=== PATIENT | male | born 1955 | race Caucasian/White ===

== ENCOUNTER → 2016-08-31 | Outpatient (CLI) | payer OTHER ==
[~2016-08-31] MED LIST: CPC PO; GABA-112 PO; GFNSR600 PO; INSHI7030 SC; IPRASOL4 INH; KFL500 PO; LEVO200T PO; LEVO50TA6 PO; LPT10 PO; MLXESC PO; MOMLX PO; MRLP17X PO; NCDT21 TD; PRD20 PO; PRLSR20 PO; SALI0.6510; SPRIN INH; SYMIN INH
--- NOTE | 2016-09-01 06:26 | PAP/PSG TECHNICIAN REPORT ---
[facility] Assistant Professor Of Business Polysomnogram Report Study name: None Report date: 09/01/2016 Study date: 08/31/2016 Referring Physician: Catalina BLACK M.D. Name: CROW DOUGLASS Interpreting Physician: Shannan Black M.D. Date of : 1955 Assistant Professor Of Business: Ricky Oakley RPSGT. Sex: Male Age: 60 StudyType: PSG Weight: 435 lbs 23 inches Height: 60 years, Height 5' 10" Neck Circum: BMI: 62.41 Medications: LEVOXYL 200 MCG, METOPROLOL SUCCINATE 25 MG, LIPITOR 10 MG, DUONED 2.5-0.5 MG/3ML, LASIX 40 MG, LEVOXYL 50 MCG, NEURONTIN 100 MG, VENTOLIN HFA 108 (90) BASE, ASPIRIN 325 MG Patient History PATIENT HAD A SLEEP STUDY DONE IN 1999 AND WAS POSITIVE FOR SAFIA WITH AN AHI OF 7.7/HR. HE HAD A UPPP SURGERY AND WAS NEVER TESTED AFTERWARDS. HE IS HERE TODAY FOR AN EVALUATION OF SAFIA. ESS = 20 RM 5 Parameters Monitored NPSG: E1-M2, E2-M1, Fp1-M2, Fp2-M1, F3-M2, F4-M2, F4-M1, C3-M2, C4-M2, C4-M1, O1-M2, O2-M2, O2-M1, T3-M2, T4-M1, P3-M2, P4-M1, CHIN1, CHIN2, HR, EKG, Legs, PFLOW, SNOR, FLOW, CFLOW, Tidal Volume, THOR, ABDO, SpO2, PLTH, CPRESS, ETCO2 Wave, ETCO2, pH Sleep Architecture Sleep Stages Time at Lights Off 9:01:20 PM STAGES Time (min.) TST (%) Time at Lights On 5:29:50 AM Wake 310.5 -- Total Recording Time (TRT) 509.00 min. N1 37.5 19 Total Sleep Period (TSP) 446.0 min. N2 160.5 81 Total Sleep Time (TST) 198.0min. N3 0.0 0 Awake Time 310.5 min. REM 0.0 0 Wake after Sleep Onset 248.0 min. Sleep Efficiency (SE) 39 % Sleep Onset Latency (ARMEN) 62.5 min. Number of Stage 1 Shifts None Awakenings 47 Stage Changes 144 Number of REM periods N/A REM 0.0 0 REM Latency NONE min. NREM 198.0 100 Body Position Analysis Supine Right Left Side Prone Vertical Total Sleep Time (min.) 0.0 0.0 0.0 0.00 0.0 508.5 Total Sleep Time (%) 0% 0% 0% 0 0% 100% Total Sleep Time REM (min.) 0.0 0.0 0.0 None 0.0 0.0 Total Sleep Time NREM (min.) 0.0 0.0 0.0 None 0.0 198.0 Intermittent Wake (min.) 0.0 0.0 0.0 None 0.0 310.5 Total Sleep Period (%) 0% None None None None None Arousals Myoclonus (PLM) * Events Count Index Events Count Index Spontaneous 34 10 Events Awake (PLMW) 438 84.6 Respiratory 17 5.8 Events Asleep w/ Arousal (PLMA) 26 7.9 PLM 26 8 Events Asleep w/o Arousal (PLMS) 220 66.7 Snoring 0 0 Total Asleep 246 74.5 Total 77 23 Total 684 81 Respiratory Analysis * CA OA MA CH H RERA Total Count 0 5 0 0 30 6 35 Index 0.0 1.5 0.0 0 9.1 2 12.4 Mean Duration 0.0 16.1 0.0 0.00 19.1 18.3 18.6 Longest Duration 0.0 24.0 0.0 0.00 0.0 20.8 30.2 Respiratory Event Summary Total Supine ~Supine Right Left Prone REM NREM Apneas Count 5 N/A 5 N/A N/A N/A N/A 5 Index 1.5 N/A 2 N/A N/A N/A N/A 2 Hypopneas (4% Desat) Count 30 N/A 30 N/A N/A N/A N/A 30 Index 9.1 N/A 9 N/A N/A N/A N/A 9.1 Apneas & All Hypopneas Count 35 N/A 35 N/A N/A N/A N/A 35 Index 10.6 N/A 11 N/A N/A N/A N/A 10.6 Respiratory Events (Mobile Qa Tester+All Hyp+RERA) Count 35 N/A 41 N/A N/A N/A N/A 35 Index 12.4 N/A 12 N/A N/A N/A N/A 12.4 Respiratory Related Arousal Count 17 N/A 19 N/A N/A N/A N/A 19 Index 5.8 N/A 6 N/A N/A N/A N/A 6 Snoring Analysis Supine Right Left Prone REM NREM Total Snore duration 2.7 min Snores count N/A N/A N/A N/A N/A 83 83 Snore mean duration 1.9 Sec Snores index N/A N/A N/A N/A N/A 25.2 25.2 TST with snoring (%) 1.3% SpO2 Analysis Total REM NREM Awake <50% 0.0 min. 0.0 min. 0.0 min. 0.0 min. 51 - 60% 0.0 min. 0.0 min. 0.0 min. 0.0 min. 61 - 70% 0.0 min. 0.0 min. 0.0 min. 0.0 min. 71 - 80% 0.8 min. 0.0 min. 0.5 min. 0.3 min. 81 - 90% 211.2 min. 0.0 min. 125.8 min. 85.5 min. 91 - 100% 279.7 min. 0.0 min. 70.0 min. 209.7 min. Average 91 0 90 91 Minimum SpO2 79 N/A 79 80 Desaturation Event Index 12.0 0.0 12.4 12.0 # Desat. Events below 89% 60 N/A 32 28 Time(%) with Saturation below 89% 17.6 0.0 14.3 3.3 Time(min.) with Saturation below 89% 86.8 0.0 70.4 16.4 Heart Rate Analysis End Tidal CO2 Analysis Min (bpm) Max (bpm) Average (bpm) TSP (mins) % of TSP Awake 46 173 58 Above 55 mmHg 0.0 0.0 NREM 46 127 52 50-55 mmHg 0.0 0.0 REM N/A N/A N/A 45-50 mmHg 0.1 0.1 Overall 46 127 52 40-45 mmHg 152.0 76.8 35-40 mmHg 44.2 22.3 30-35 mmHg 1.3 0.6 Average ETCO2 0.0 Supplemental O2 Values Minimum O2 level: None Value Start Time End Time Assistant Professor Of Business Comments Mr. Douglass slept in the upright position. PVC's and PAC's noted. Leg movements noted. No bruxism noted. Snoring was noted and scored as a 2 on a scale of 1 through 5. (0=no snoring, 5=snoring loud enough to be heard through a closed door or down the [place] way Mr. Douglass awoke to use the restroom 1 time during the night. Mr. Douglass stated I did not sleep as well as I do when I am in my own bed. Patient chose to sleep in a chair of his choice for the sleep study. He was in the upright position the entire test. He states this is how he sleeps while at home. The final report will be interpreted and signed by a sleep physician. The completed physician report will then be placed in the patient medical record. Therapy (cm H2O) 0 TIB (min.) 508.5 TST (min.) 198.0 Sleep Onset (min.) 62.5 REM Onset From Sleep (min.) NONE Sleep Efficiency % 39 Wakefulness (%) 61 Wakefulness (min.) 310.5 NREM 1 (%) 19 NREM 1 (min.) 37.5 NREM 2 (%) 81 NREM 2 (min.) 160.5 NREM 3 (%) 0 NREM 3 (min.) 0.0 REM (%) 0 REM (min.) 0.0 # Arousals 77 Arousal Index 23 # Snore 83 Snore Index 25.2 AHI 10.6 AHI Supine N/A AHI Non-Supine 11 NREM AHI 10.6 REM AHI N/A RDI 12.4 # Obstructive Apnea 5 # Central Apnea 0 # Mixed Apnea 0 # Hypopneas 30 RERAs 6 Total Respiratory Events 44 Time Below SpO2 89% (min.) 70.4 Mean NREM SpO2 (%) 90 Mean REM SpO2 (%) N/A Mean Sleep SpO2 (%) 90 Min NREM SpO2 (%) 79 Min REM SpO2 (%) N/A Position Supine (min.) 0.0 Position Non-supine (min.) 198.0 LM Index Sleep 74.5 LM Index NREM 74.5 LM Index REM N/A Mean Heart Rate (bpm) 52 Min Heart Rate (bpm) 46
--- NOTE | 2016-09-12 07:59 | POLYSOMNOGRAPH REPORT ---
REFERRING PERSON: Dr. Rex Black. FIELD ENGINEER: Ricky Oakley. Mr. Douglass is a 60-year-old male who was found to have obstructive sleep apnea in 1999. His AHI at that time was 7.7. He had UPPP surgery but was never tested after that. He is here for reevaluation. His Hammett sleepiness scale score on the evening of this study is 20. BMI is 62.41. Following the technical and digital specifications of the [place] [employer] (AASM) a standard diagnostic polysomnogram was performed monitoring EEG, EOG, EMG (chin and leg deviations), oxygen saturation, body position, digital video, respiratory effort and airflow. The sleep Stage and event scoring was based on the AASM Manual for the Scoring of Sleep and Associated Events 2007 edition. Apneas are defined as a drop in the peak thermal sensor excursion by >90% of baseline for at least 10 seconds. Hypopneas were scored using the 4% oxygen desaturation rule (4A-[employer]ic[employer]) and a decrease in the nasal pressure excursions by >30% of baseline for at least 10 seconds. Respiratory effort-related arousal (RERA's) is defined as a sequence of breaths lasting at least 10 seconds characterized by increasing respiratory effort or flattening of the nasal pressure waveform leading to an arousal from sleep when the sequence of breaths does not meet criteria for an apnea or hypopnea. Apnea Hypopnea index (AHI) is defined as the number of apneas and hypopneas occurring in an hour of sleep. Respiratory disturbance index (RDI) is defined as the number of apneas, hypopneas, and RERA's occurring in an hour of sleep. Mr. Douglass's total sleep period time was 446 minutes. Total sleep time was only 198 minutes. All of his sleep time was upright. Sleep efficiency was only 39%. Latency to sleep onset was 62.5 minutes with wake after sleep onset of 248 minutes. Total non-REM sleep time was the entire duration of this study or 198 minutes. He spent 19% of that time in N1 sleep and 81% in N2 sleep. He had no N3 or REM sleep on this test. Once he did fall asleep, there were 77 arousals from sleep. Thirty-four of these arousals were spontaneous, 17 were due to respiratory events, 26 were due to periodic limb movements of sleep and there were no snoring-related arousals. There were 246 periodic limb movements. Limb movement index was 74.5. Limb movement with arousal index was 7.9. There was no central, 5 obstructive and no mixed apneas on this test. There were 30 hypopnea and 6 RERA. Apnea-hypopnea index was 10.6 consistent with mild sleep apnea. Again, all of his sleep time was spent upright. 83 snoring events were recorded. Total sleep time with snoring was 1.3%. Mean saturation was 91% with desaturations to 79%. Saturations were less than 89% for 86.8 minutes of recorded time. This is significant nocturnal hypoxemia. There was cardiac ectopy noted. During sleep, heart rates ranged from a low of 46 beats per minute to a high of 127 beats per minute. PVCs and PACs were both noted. End End-tidal CO2 was recorded on this test. End-tidal CO2s were between 45 and 50 mmHg for 0.1% of total sleep period time, between 40 and 45 mmHg for 76.8%, between 35 and 40 mmHg for 22.3% and between 30 and 35 mmHg for 0.6% of total sleep period time. IMPRESSION AND PLAN: 60-year-old male when sleeping upright with evidence of mild sleep apnea and significant nocturnal hypoxemia. This patient would likely benefit from positive airway pressure therapy. He should return to the sleep lab for a full night titration and then based on those results be started on equipment at home. A download from his machine should be reviewed in 1 month both to check compliance as well as AHI and further pressure adjustments can occur at that time.
== END | disposition home or self-care (01) ==
LOC: C.NEUR 20:00
PROVIDERS: ATTEND Family Medicine
DX: E66.2 Morbid (severe) obesity with alveolar hypoventilation (principal)

== ENCOUNTER 2018-10-24 14:43 | Inpatient (IN) ==
[2018-10-24] MEDS ORDERED: ALBUT/IPRATROP 3MG/0.5MG NEB 3 ML VIAL INH STA (14:53)
[2018-10-24] MEDS ORDERED: methylPREDNISolone 125 MG/2 ML VIAL IV STA (14:53)
--- OUTSIDE RECORDS SUMMARY | 2018-10-24 14:54 | External Medical Summary | Continuity of Care Document ---
:1955 Author Name Carrillo Couch, Provider Address Unavailable Unavailable , Care Team Providers Name Role Phone Janie Nelson [email or web address] Couch, 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 SPEEDY Nelson Quantity: 30 Refills: 5 HumuLIN 70/30 SUSP; 95 UNITS AM AND 65 UNIT PM DAILY Refills: 0 Levothyroxine Sodium 200 MCG Oral Tablet ; TAKE 1 TABLET DAILY WITH THE 75 MCG DOSE. Quantity: 90 Refills: 3 Levothyroxine Sodium 75 MCG Oral Tablet; TAKE 1 TABLET DAILY WITH THE 200 MCG DOSE. Quantity: 30 Refills: 11 Lisinopril 20 MG Oral Tablet; TAKE 1 TABLET DAILY. Quantity: 90 Refills: 3 Omeprazole 20 MG Oral Capsule Delayed Release; TAKE 1 CAPSUL E BY MOUTH DAILY. Quantity: 90 Refills: 3 Atorvastatin Calcium 10 MG Oral Tablet; TAKE 1 TABLET DAILY. Quantity: 90 Refills: 3 Breo Ellipta 200-25 MCG/INH Inhalation A erosol Powder Breath Activated; INHALE 1 PUFFS Daily Iza Gann Start: 12-Jul-2016 Quantity: 1 60 Aerosol Powder Br eath Activated Disp Pack Refills: 5 Keflex 500 MG Oral Capsule; TAKE 1 CAPSULE 3 TIMES DAILY UNT IL GONE. Refills: 0 Gabapentin 100 MG TABS; TAKE 1 TABLET 2 TIMES DAILY AND 3 TA BS AT HS DAILY. Refills: 0 Mucinex 600 MG Oral Tablet Extended Rele ase 12 Hour; TAKE 2 TABLETS TWICE DAILY NEEDED. Refills: 0 Azithromycin 250 MG Oral Tablet; TAKE 2 TABLETS ON DAY 1 THEN TAKE 1 TABLET A DAY FOR 4 DAYS. SPEEDY Nelson Start: 05-Jul-2016 Quantity: 1 6 Tablet Disp Pack Refills: 0 predniSONE 10 MG Oral Tablet; TAKE 3 TAB LETS DAILY FOR 2 DAYS, 2 TABLETS DAILY FOR 2 DAYS AND 1 TABLET DAILY FOR 2 DAYS, THEN STOP. SPEEDY Nelson S tart: 05-Jul-2016 Quantity: 12 Refills: 0 Procedures Procedures not documented Immunizations Immunizations not documented Family History Father Family history of COPD (chronic obstructive pulmonary disease) (496) Status: Active (J44.9) Mother Family history of diabetes mellitus (V18.0) (Z83.3) Status: Active Unknown Family Member Family history of Asthma (493.90) (J45.909) Status: Active Comments: Family History Family history of Heart disease (429.9) Status: Active Comments: Family History (I51.9) Family history of Hypertension (401.9) (I10) Status: Active Comments: Family History Social History - Smoking Status Former smoker Plan of Treatment Planned Observations Planned Goals not documented Results No Known Results Results not documented Encounters Appointment; Janie Nelson PA-C 02-Nov-2016 14:30 Encounter Diagnosis: Problem not documented
[2018-10-24 15:06] LABS: Basophils # (auto) 0.06 K/uL (0-0.2); Basophils % (auto) 0.7 %; Eosinophils # (auto) 0.03 K/uL (0-0.5); Eosinophils % (auto) 0.4 %; Hematocrit (blood only) 47.1 % (42-52); Hemoglobin 15.1 g/dL (14.0-18.0); Immature Granulocytes # (auto) 0.11 K/uL (0.00-0.02); Immature Granulocytes % (auto) 1.3 %; Lymphocytes # (auto) 0.98 K/uL (1.2-3.4); Lymphocytes % (auto) 11.6 %; Mean Corpuscular Hgb Conc 32.1 g/dL (32-36); Mean Corpuscular Volume 101.9 fL (80-100); Mean Platelet Volume 9.4 fL (7.4-10.4); Monocytes # (auto) 0.87 K/uL (0.11-0.59); Monocytes % (auto) 10.3 %; Neutrophils # (auto) 6.41 K/uL (1.4-6.5); Neutrophils % (auto) 75.7 %; Platelet Count 183 K/uL (130-400); RDW Coefficient of Variation 14.9 % (11.5-14.5); RDW Standard Deviation 55.2 fL (36.4-46.3); Red Blood Count 4.62 M/uL (4.7-6.1); White Blood Count 8.46 K/uL (4.8-10.8)
[2018-10-24 15:18] LABS: INR 1.1 (0.9-1.1); Partial Thromboplastin Ratio 0.9; Partial Thromboplastin Time 24.5 Seconds (21.0-31.0); Prothrombin Time 11.2 Seconds (9.0-12.0)
[2018-10-24] MEDS ORDERED: RAPID SEQUENCE INDUCTION BAG ONE (15:18)
[2018-10-24] MEDS ORDERED: LIDOCAINE HCL 4% w/ Afrin 4 ML VIAL ONE (15:22)
[2018-10-24 15:23] LABS: Albumin Level 2.7 gm/dl (3.4-5.0); BUN Creatinine Ratio 15.3 (10-20); Calcium 8.4 mg/dl (8.5-10.1); Creatinine Clr Calc Pharmacy 130.5 ml/min; Est GFR (African American) 86.5; Est GFR (Non-African American) 74.7; Magnesium 2.4 mg/dl (1.8-2.4)
[2018-10-24] MEDS ORDERED: LIDOCAINE HCL 4% w/ Afrin 4 ML VIAL INH SCH (15:25)
[2018-10-24] MEDS ORDERED: ETOMIDATE 2 MG/ML 20 ML VIAL IV ONE ×2 (15:28→16:05)
[2018-10-24 15:29] LABS: Appearance Urine Turbid (Clear); Bacteria Urine Automated Negative (Negative); Blood Urine 1+ (Negative); Color Urine Dark Yellow; Epithelial Cell Urine Auto >30 /lpf (0-5); Glucose Urine UA Negative (Negative); Ketones Urine Negative (Negative); Leukocyte Esterase Urine Negative (Negative); Nitrite Urine Negative (Negative); Protein Urine 3+ (Negative); RBC Urine Automated 0-4 /hpf (0-4); Specific Gravity Urine 1.026 (1.000-1.030); Urobilinogen Urine Negative (Negative)
[2018-10-24] MEDS ORDERED: ETOMIDATE 2 MG/ML 20 ML VIAL IV SCH (15:30)
[2018-10-24] MEDS ORDERED: MIDAZOLAM HCL 5 MG/ML VIAL IV SCH ×2 (15:30→15:50)
--- NOTE | 2018-10-24 15:35 | XRay Report ---
XR chest 1V portable CLINICAL HISTORY: Dyspnea COMPARISON STUDY: 06/05/2016 FINDINGS: There is near complete opacification of left hemithorax. There is elevation the right lung interstitium. There is a suspected right pleural effusion.[ IMPRESSION: 1. Right lung interstitial edema pattern 2. Right pleural effusion 3. Near complete opacification left hemithorax. This may represent a combination of pleural fluid and left lung atelectasis/consolidation. CT scanning might be of benefit for further evaluation. Electronically signed by: Sebastián Gómez M.D. 10/24/2018 3:34 PM
[2018-10-24 15:39] LABS: Bilirubin Urine Negative (Negative); Ictotest Urine Negative (Negative)
[2018-10-24] MEDS ORDERED: PIPERACILL/TAZOBAC CONSULT ACTIVE PRN (15:39)
[2018-10-24] MEDS ORDERED: PIPERACILLIN/TAZOBACTAM 4.5 GM/120 ML BAG IV ONE (15:39)
[2018-10-24] MEDS ORDERED: LEVOFLOXACIN/D5W 750 MG/150 ML BAG IV ONE (15:41)
[2018-10-24] MEDS ORDERED: SODIUM BICARB 8.4% INJ 50 MEQ/50 ML SYR ONE (15:43)
[2018-10-24 15:45] LABS: Albumin Globulin Ratio 0.5 (0.9-2); Bilirubin,Total 0.5 mg/dl (0.2-1); Globulin 5.1 gm/dl (2.5-4.0); Total Protein 7.8 gm/dl (6.4-8.2); Troponin I 0.064 ng/ml (0-0.045)
[2018-10-24] MEDS ORDERED: SODIUM BICARBONATE 8.4% 150 MEQ in DEXTROSE 5% 1,000 ML IV SCH (15:45)
[2018-10-24] MEDS ORDERED: SODIUM BICARB 8.4% INJ 50 MEQ/50 ML SYR IV SCH (15:45)
[2018-10-24] MEDS ORDERED: CEFEPIME 2,000 MG in SYRINGE 7.5 ML IV STA (15:48)
[2018-10-24 15:55] LABS: Renal Epithelial Cells Urine 0-5 /lpf (0-5)
[2018-10-24 15:59] LABS: Influenza A virus by PCR Neg for Influ A (Neg); Influenza B virus by PCR Neg for Influ B (Neg)
[2018-10-24] MEDS ORDERED: VECURONIUM BROMIDE 10 MG VIAL IV SCH (16:00)
[2018-10-24] MEDS ORDERED: fentaNYL citrate 100 MCG/2 ML VIAL IV PRN ×2 (16:00)
[2018-10-24] MEDS ORDERED: PROPOFOL 1,000 MG/100 ML VIAL IV STA (16:00)
[2018-10-24] MEDS ORDERED: SODIUM CHLORIDE 0.9% INJ 10 ML VIAL IV ONE (16:05)
[2018-10-24] MEDS ORDERED: MIDAZOLAM HCL 5 MG/ML VIAL IV ONE (16:05)
[2018-10-24] MEDS ORDERED: VECURONIUM BROMIDE 10 MG VIAL IV ONE (16:05)
[2018-10-24] MEDS ORDERED: SODIUM CHLORIDE 0.9% 10ML FLUSH IV ONE (16:05)
--- NOTE | 2018-10-24 16:21 | Procedure Note ---
Procedure Note Date of Service October 24, 2018 Procedure date: Noted above Procedure: fiberoptic bronchoscopy Pre-procedure indication: Respiratory failure, whiteout of left lung field Post-procedure Diagnosis: same as above Prior to Procedure: Informed Consent: Emergent consent implied Attending Staff: Jose Tavares DO Skin Prep: Not applicable Anesthesia: Continuous infusion propofol The identity of the patient was confirmed and a bedside time out was performed. Description of Procedure: Fiberoptic bronchoscopy was performed via endotracheal tube. Bronchioalveolar lavage left lower lobe was performed. Findings included: Excessive dynamic airway collapse near total collapse of trachea and main bronchi. Diffusely inflamed tissues, no significant purulence noted Complications: None Specimens: Bronchial washings sent for culture and Gram stain, cytology, fungal elements, and AFB stain and culture. Estimated blood loss: Zero Coding
--- NOTE | 2018-10-24 16:38 | XRay Report ---
SINGLE VIEW CHEST CLINICAL HISTORY: Respiratory failure. Intubation. FINDINGS: 2 AP, portable, semierect chest radiographs are compared to study dated 10/24/2018 and correl ated with chest CT dated 06/06/2016. The examination is degraded by portable technique, large body davenport bitus, and patient rotation. And endotracheal tube has been placed. The tip projects 4 cm above the kishore. The heart is enlarged. There is pulmonary vascular congestion and interstitial edema. Layerin g pleural effusions are identified with bibasilar consolidation. No pneumothorax is seen. The bony th orax is grossly intact. IMPRESSION: 1. An endotracheal tube has been placed as detailed above. 2. Cardiomegaly with evidence of congestive failure and interstitial edema. 3. Layering pleural effusions with bibasilar consolidation. 4. There is significantly improved aeration of the left lung as compared to today's earlier examinati on. Electronically signed by: Greg Rodriges M.D. 10/24/2018 4:37 PM
--- NOTE | 2018-10-24 16:52 | Emergency Department Note ---
Entered by Ashley Ramos acting as a scribe for Corey Spears DO History of Present Illness General Chief complaint: Respiratory Distress Stated complaint: respiratory distress, Source: family and EMS Mode of arrival: EMS Limitations: other (dyspnea) History of Present Illness Provider complaint: Respiratory distress Onset (ago): hour(s) (today) Location: chest Pain Consistency: + other (worsening) Quality: + other (respiratory distress) Associated symptoms: + cough The patient is an 78 year old male with a history of diabetes, hypertension, and hypothyroidism who presents to the Emergency Room with complaints of worsening respiratory distress starting today. Per EMS, the patient has been sick for a couple of days and had difficulty breathing today. They state that the patient's brother found him nonresponsive at home today and subsequently called EMS. EMS reported that the patient's O2 stats were low when they arrived on scene. The brother noted that the patient has developed a cough recently but conceded that he is unsure if the patient has been febrile or confused. Per another family member, the patient is normally on oxygen at home and has been having difficulty breathing secondary to bad allergies. He also reportedly has a leg machine that pushes fluid out of his leg. HPI limited secondary to dyspnea. Home Medications Home Medications Medication Instructions Recorded Confirmed Type amlodipine 2.5 mg PO DAILY 10/24/18 10/24/18 History atorvastatin 10 mg PO DAILY 10/24/18 10/24/18 History gabapentin 100 mg PO BIDM 10/24/18 10/24/18 History gabapentin 300 mg PO HS 10/24/18 10/24/18 History insulin NPH and regular human 65 unit SUBCUT PM 10/24/18 10/24/18 History [Novolin 70/30 U-100 Insulin] insulin NPH and regular human 95 unit SUBCUT QAM 10/24/18 10/24/18 History [Novolin 70/30 U-100 Insulin] levothyroxine 25 mcg PO DAILY 10/24/18 10/24/18 History levothyroxine 200 mcg PO DAILY 10/24/18 10/24/18 History metoprolol succinate 25 mg PO DAILY 10/24/18 10/24/18 History Allergies Allergy/AdvReac Type Severity Reaction Status Date / Time No Known Allergies Allergy Verified 06/02/16 11:34 Past Med/Surg History Medical History Diabetes (Chronic) Hypertension (Chronic) Hypothyroidism (Chronic) Social History Preferred Language: Occitan marital status: single current occupational status: unemployed Feels Safe at Home: Yes Smoking Status: Unknown if ever smoked Review of Systems Other (Limited secondary to dyspnea) Physical Exam Vital Signs Vital Signs - 24 hr 10/24/18 14:50 10/24/18 14:52 10/24/18 15:05 Temperature 36.4 C L Temperature Source Axillary Sepsis Recent Fever Within 48 Hours No Sepsis New/Unexplained Change in Mental Status No Sepsis Action Taken by Nursing No Action Required End-Tidal CO2 Pulse Rate 72 79 77 Pulse Rate [Apical] Pulse Rate from SpO2 Sensor 71 Pulse Rhythm Regular Pulse Strength Normal Respiratory Rate 23 28 H Respiratory Effort / Characteristics Non-Labored Spontaneous Respiratory Depth Normal Shallow Respiratory Pattern Regular Blood Pressure 159/60 H 159/60 H Blood Pressure Mean 93 93 Pulse Oximetry 88 L 85 L 92 Oxygen Delivery Method Non-rebreather Oxygen Flow Rate 15 Fraction of Inspired Oxygen 100 10/24/18 15:28 10/24/18 15:30 10/24/18 15:46 Temperature Temperature Source Sepsis Recent Fever Within 48 Hours Sepsis New/Unexplained Change in Mental Status Sepsis Action Taken by Nursing End-Tidal CO2 Pulse Rate 74 77 61 Pulse Rate [Apical] Pulse Rate from SpO2 Sensor 74 70 62 Pulse Rhythm Pulse Strength Respiratory Rate 11 L 23 20 Respiratory Effort / Characteristics Respiratory Depth Respiratory Pattern Blood Pressure 157/90 H 167/82 H 96/51 L Blood Pressure Mean 112 110 66 Pulse Oximetry 93 94 98 Oxygen Delivery Method Oxygen Flow Rate Fraction of Inspired Oxygen 10/24/18 16:01 10/24/18 16:46 Temperature Temperature Source Sepsis Recent Fever Within 48 Hours Sepsis New/Unexplained Change in Mental Status Sepsis Action Taken by Nursing End-Tidal CO2 80 Pulse Rate 62 Pulse Rate [Apical] 77 Pulse Rate from SpO2 Sensor 62 Pulse Rhythm Pulse Strength Respiratory Rate 24 Respiratory Effort / Characteristics Non-Labored Respiratory Depth Respiratory Pattern Blood Pressure 109/59 L Blood Pressure Mean 75 Pulse Oximetry 98 92 Oxygen Delivery Method BiPAP Oxygen Flow Rate Fraction of Inspired Oxygen 100 CONSTITUTIONAL/VITAL SIGNS: Reviewed / noted above. GENERAL: Non-toxic in appearance. Slightly lethargic but answers some basic questions. INTEGUMENTARY: Warm, dry, and [place]. HEAD: Normocephalic. EYES: without scleral icterus or trauma. ENT/OROPHARYNX: clear and moist. LYMPHADENOPATHY/NECK: Is supple without lymphadenopathy or meningismus. RESPIRATORY: Diminished breath sounds with scattered wheezes throughout. CARDIOVASCULAR: Regular rate and rhythm. GI/ABDOMEN: Soft and nontender. No organomegaly or pulsatile mass. No rebound or guarding. Normal bowel sounds. EXTREMITIES: Warm and well perfused. BACK: No CVA tenderness. NEUROLOGICAL: Intact without focal deficits. PSYCHIATRIC: normal affect. MUSCULOSKELETAL: Normally developed with good muscle tone. Procedures Intubation Time out performed: Yes sedative: other (none) paralytic: other (Nebulized Lidocaine and Cetacaine spray) Laryngoscope: fiber optic video scope ET Tube Size: 7.5 ET Tube Uncuffed: Yes Tube Secured Depth (cm): 23 Tube Secured Location: lips Tube Placement Confirmation: visualized tube passing through cords and confirmation by capnometry Patient Tolerated Procedure: well Intubation Complications: none Course 1445: The patient was evaluated in room B1, and a complete history and physical examination were performed. 1530: I intubated the patient at this time. See procedure note for details. 1532: I reviewed the patient's case with Dr. Tavares - [facility], [place]. Dr. Tavares will evaluate the patient. 1559: I reviewed the patient's case with Sandor Baltazar PA-C. Isabel will evaluate the patient for further management. Reevaluation(s) Reevaluation #1: I reviewed the patient's case with Dr. Tavares - [facility]ower, Mango Bobby. Dr. Tavares will evaluate the patient. Time: 15:32 Reevaluation #2: I reviewed the patient's case with Sandor Baltazar PA-C. Isabel will evaluate the patient for further management. Time: 15:59 Administered Medications Levofloxacin/Dextrose (Levaquin/D5w) 750 mg in 150 mls @ 100 mls/hr IV ONE ONE Stop: 10/24/18 17:10 Last Admin: 10/24/18 16:12 Dose: 100 mls/hr Documented by: [id number] Propofol (Diprivan) 1,000 mg in 100 mls @ 6.762 mls/hr IV .[id number] STA; Protocol Stop: 10/25/18 06:47 Last Admin: 10/24/18 16:26 Dose: 5 mcg/kg/min, 6.8 mls/hr Documented by: [id number] Cosigned by: [id number] Discontinued Medications Albuterol (Duoneb) 6 ml INH NOW [facility] Stop: 10/24/18 14:54 Last Admin: 10/24/18 14:53 Dose: 6 ml Documented by: [id number] Etomidate (Amidate) Confirm Administered Dose 40 mg IV .[facility] ONE Stop: 10/24/18 15:29 Last Admin: 10/24/18 15:39 Dose: 68 mg Documented by: [id number] Etomidate (Amidate) 68 mg IV TODAY@1530 REPLACED BY [facility] Stop: 10/24/18 16:30 Last Admin: 10/24/18 16:36 Dose: Not Given Documented by: [id number] Cefepime HCl 2,000 mg/ Syringe 20 mls @ 5 mls/min IV NOW [facility] Stop: 10/24/18 15:51 Last Admin: 10/24/18 16:00 Dose: 5 mls/min Documented by: [id number] Lidocaine HCl (Afrin W/Lidocaine 4%) Confirm Administered Dose 4 ml .ROUTE .[facility] Stop: 10/24/18 15:23 Last Admin: 10/24/18 16:37 Dose: Not Given Documented by: [id number] Methylprednisolone (Solumedrol) 125 mg IV NOW [facility] Stop: 10/24/18 14:54 Last Admin: 10/24/18 15:22 Dose: 125 mg Documented by: [id number] Midazolam HCl (Versed) 4 mg IV TODAY@1530 REPLACED BY [facility] Stop: 10/24/18 16:30 Last Admin: 10/24/18 15:30 Dose: 4 mg Documented by: [id number] Midazolam HCl (Versed) 6 mg IV TODAY@1550 REPLACED BY [facility] Stop: 10/24/18 16:30 Last Admin: 10/24/18 15:50 Dose: 6 mg Documented by: [id number] Sodium Bicarbonate (Sodium Bicarbonate 8.4%) Confirm Administered Dose 150 meq .ROUTE .[facility] ONE Stop: 10/24/18 15:44 Last Admin: 10/24/18 15:52 Dose: 150 meq Documented by: [id number] Sodium Bicarbonate (Sodium Bicarbonate 8.4%) 150 meq IV TODAY@1545 REPLACED BY [facility] Stop: 10/24/18 16:30 Last Admin: 10/24/18 16:00 Dose: Not Given Documented by: [id number] Vecuronium [place] (Norcuron) 10 mg IV TODAY@1600 [facility] Stop: 10/24/18 16:30 Last Admin: 10/24/18 16:00 Dose: 10 mg Documented by: [id number] Cosigned by: [id number] Medical Decision Making Differential Diagnosis Differential diagnosis: Etiologies such as infections, reactive airway disease, pneumonia, pneumothorax, COPD, CHF, cardiac ischemia, pulmonary embolism, musculoskeletal, gastrointestinal, as well as others were entertained. Medical Records Attestation: I reviewed the patient's medical records. Home Medications Current Medication List: was personally reviewed by me Laboratory Data Attestation: I reviewed the patient's lab results. Result diagrams: 10/24/18 14:57 10/24/18 14:57 Lab Results 10/24/18 10/24/18 10/24/18 Range/Units 14:57 14:57 14:57 WBC 8.46 (4.8-10.8) K/uL RBC 4.62 L (4.7-6.1) M/uL Hgb 15.1 (14.0-18.0) g/dL Hct 47.1 (42-52) % MCV 101.9 H (80-100) fL MCH 32.7 (25-34) pg MCHC 32.1 (32-36) g/dL RDW Std Deviation 55.2 H (36.4-46.3) fL RDW Coeff of Neena 14.9 H (11.5-14.5) % Plt Count 183 (130-400) K/uL MPV 9.4 (7.4-10.4) fL Immature Gran % (Auto) 1.3 % Neut % (Auto) 75.7 % Lymph % (Auto) 11.6 % Evangeline % (Auto) 10.3 % Eos % (Auto) 0.4 % Baso % (Auto) 0.7 % Immature Gran # (Auto) 0.11 H (0.00-0.02) K/uL Neut # (Auto) 6.41 (1.4-6.5) K/uL Lymph # (Auto) 0.98 L (1.2-3.4) K/uL Evangeline # (Auto) 0.87 H (0.11-0.59) K/uL Eos # (Auto) 0.03 (0-0.5) K/uL Baso # (Auto) 0.06 (0-0.2) K/uL PT 11.2 (9.0-12.0) Seconds INR 1.1 (0.9-1.1) APTT 24.5 (21.0-31.0) Seconds PTT Ratio 0.9 Sodium 136 (136-145) mmol/L Potassium 6.0 H (3.5-5.1) mmol/L Chloride 100 (98-107) mmol/L Carbon Dioxide 38 H (21-32) mmol/L Anion Gap -2.0 L (3-11) BUN 16 (7-18) mg/dl Creatinine 1.05 (0.6-1.4) mg/dl Est Cr Clr Drug Dosing 130.5 ml/min Est GFR ( Amer) 86.5 Est GFR (Non-Af Amer) 74.7 BUN/Creatinine Ratio 15.3 (10-20) Glucose 158 H (70-99) mg/dl POC Lactic Acid Dilan (0.90-1.70) mmol/L Calcium 8.4 L (8.5-10.1) mg/dl Magnesium 2.4 (1.8-2.4) mg/dl Total Bilirubin 0.5 (0.2-1) mg/dl AST 95 H (15-37) U/L ALT 74 (12-78) U/L Alkaline Phosphatase 238 H (45-117) U/L Troponin I 0.064 H* (0-0.045) ng/ml Total Protein 7.8 (6.4-8.2) gm/dl Albumin 2.7 L (3.4-5.0) gm/dl Globulin 5.1 H (2.5-4.0) gm/dl Albumin/Globulin Ratio 0.5 L (0.9-2) Urine Color Urine Appearance (Clear) Urine pH (4.5-7.5) Ur Specific [place] (1.000-1.030) Urine Protein (Negative) Urine Glucose (UA) (Negative) Urine Ketones (Negative) Urine Blood (Negative) Urine Nitrite (Negative) Urine Bilirubin (Negative) Urine Urobilinogen (Negative) Ur Leukocyte Esterase (Negative) Urine WBC (Auto) (0-5) /hpf Urine RBC (Auto) (0-4) /hpf U Hyaline Cast (Auto) (0-5) /lpf U Epithel Cells (Auto) (0-5) /lpf Urine Bacteria (Auto) (Negative) Ur Renal Epithelial Cell (0-5) /lpf Granular Casts (0) /lpf WBC Casts (0) /lpf Influenza Type A (PCR) (Neg) Influenza Type B (PCR) (Neg) 10/24/18 10/24/18 10/24/18 Range/Units 14:59 15:11 15:15 WBC (4.8-10.8) K/uL RBC (4.7-6.1) M/uL Hgb (14.0-18.0) g/dL Hct (42-52) % MCV (80-100) fL MCH (25-34) pg MCHC (32-36) g/dL RDW Std Deviation (36.4-46.3) fL RDW Coeff of Neena (11.5-14.5) % Plt Count (130-400) K/uL MPV (7.4-10.4) fL Immature Gran % (Auto) % Neut % (Auto) % Lymph % (Auto) % Ev[place] % (Auto) % Eos % (Auto) % Baso % (Auto) % Immature Gran # (Auto) (0.00-0.02) K/uL Neut # (Auto) (1.4-6.5) K/uL Lymph # (Auto) (1.2-3.4) K/uL [place] # (Auto) (0.11-0.59) K/uL Eos # (Auto) (0-0.5) K/uL Baso # (Auto) (0-0.2) K/uL PT (9.0-12.0) Seconds INR (0.9-1.1) APTT (21.0-31.0) Seconds PTT Ratio Sodium (136-145) mmol/L Potassium (3.5-5.1) mmol/L Chloride (98-107) mmol/L Carbon Dioxide (21-32) mmol/L Anion Gap (3-11) BUN (7-18) mg/dl Creatinine (0.6-1.4) mg/dl Est Cr Clr Drug Dosing ml/min Est GFR ( Amer) Est GFR (Non-Af Amer) BUN/Creatinine Ratio (10-20) Glucose (70-99) mg/dl POC Lactic Acid Dilan 0.73 L (0.90-1.70) mmol/L Calcium (8.5-10.1) mg/dl Magnesium (1.8-2.4) mg/dl Total Bilirubin (0.2-1) mg/dl AST (15-37) U/L ALT (12-78) U/L Alkaline Phosphatase (45-117) U/L Troponin I (0-0.045) ng/ml Total Protein (6.4-8.2) gm/dl Albumin (3.4-5.0) gm/dl Globulin (2.5-4.0) gm/dl Albumin/Globulin Ratio (0.9-2) Urine Color Dark Yellow Urine Appearance Turbid A (Clear) Urine pH 5.0 (4.5-7.5) Ur Specific [place] 1.026 (1.000-1.030) Urine Protein 3+ H (Negative) Urine Glucose (UA) Negative (Negative) Urine Ketones Negative (Negative) Urine Blood 1+ H (Negative) Urine Nitrite Negative (Negative) Urine Bilirubin Negative (Negative) Urine Urobilinogen Negative (Negative) Ur Leukocyte Esterase Negative (Negative) Urine WBC (Auto) 5-10 H (0-5) /hpf Urine RBC (Auto) 0-4 (0-4) /hpf U Hyaline Cast (Auto) 10-30 H (0-5) /lpf U Epithel Cells (Auto) >30 H (0-5) /lpf Urine Bacteria (Auto) Negative (Negative) Ur Renal Epithelial Cell 0-5 (0-5) /lpf Granular Casts 1-5 H (0) /lpf WBC Casts 1-5 H (0) /lpf Influenza Type A (PCR) Neg for Influ A (Neg) Influenza Type B (PCR) Neg for Influ B (Neg) Imaging Data Radiologist's Impression: Radiology results as stated below per my review and the radiologist's interpretation: XR chest 1V portable CLINICAL HISTORY: Dyspnea COMPARISON STUDY: 06/05/2016 FINDINGS: There is near complete opacification of left hemithorax. There is elevation the right lung interstitium. There is a suspected right pleural effusion.[ IMPRESSION: 1. Right lung interstitial edema pattern 2. Right pleural effusion 3. Near complete opacification left hemithorax. This may represent a combination of pleural fluid and left lung atelectasis/consolidation. CT scanning might be of benefit for further evaluation. Electronically signed by: Sebastián Gómez M.D. 10/24/2018 3:34 PM SINGLE VIEW CHEST CLINICAL HISTORY: Respiratory failure. Intubation. FINDINGS: 2 AP, portable, semierect chest radiographs are compared to study d ated 10/24/2018 and correlated with chest CT dated 06/06/2016. The examination is degraded by portable technique, large body habitus, and patient rotation. And endotracheal tube has been placed. The tip projects 4 cm above the kishore. The heart is enlarged. There is pulmonary vascular congestion and interstitial edema. Layering pleural effusions are identified with bibasilar consolidation. No pneumothorax is seen. The bony thorax is grossly intact. IMPRESSION: 1. An endotracheal tube has been placed as detailed above. 2. Cardiomegaly with evidence of congestive failure and interstitial edema. 3. Layering pleural effusions with bibasilar consolidation. 4. There is significantly improved aeration of the left lung as compared to today's earlier examination. Electronically signed by: Greg Rodriges M.D. 10/24/2018 4:37 PM ECG Data Attestation: I personally reviewed and interpreted this ECG as follows: Indication: other (respiratory distress) Rate (beats per minute): 72 Rhythm: normal sinus Findings: + LBBB; no ST elevation and no ectopy Blood Pressure Blood Pressure Findings: Normal blood pressure MDM Narrative This is a 62-year-old male who presents to the ED with a chief complaint of shortness of breath. The patient has been ill for the past few days according to paramedics. The brother did not come in during my evaluation of the patient. No additional family other than the nephew came in and he had no information. Patient was able to provide any additional history due to his altered mental status and his breathing difficulty. Initially upon arrival, patient was found to have some wheezing in the lung durant. He was provided with 2 nebulizer aj tments and some BiPAP. His ABG revealed a respiratory acidosis with hypercarbia and adequate oxygenation with 15 L via mask. The patient was prepped for an awake intubation with nebulized lidocaine and Cetacaine spray. The patient was intubated without difficulty with the glide scope with a 7.5 size endotracheal tube taped at 23 at the lips. The patient did have some yellowish frothy fluid coming out when he was intubated. His oxygen saturations improved from 88% on 15L to 98% after intubation. The patient CBC was unremarkable. An EKG shows a normal sinus rhythm at a rate of 72. Potassium was 6. Troponin was 0.064. Lactic acid level was normal. Dr. Lopez came and evaluated the patient in the emergency department. He was provided with IV Levaquin and IV Zosyn. He was given etomidate IV after the intubation procedure. He was placed on the ventilator. The patient will be admitted to the ICU. His oxygen saturations were improved and his vital signs were otherwise stable. Impression & Plan Respiratory failure, Pneumonia, Hypoxia Critical Care Time I have personally spent 35 minutes of critical care time in the direct management of this patient. This includes bedside care, interpretation of diagnostic studies, and testing, discussion with consultants, patient, and family members, and other required patient management activities. This 35 minutes is in excess of all separately billable procedures. Critical Care Time: Yes Total Critical Care Time: 35 Discharge Plan Visit Data Chief Complaint: Respiratory Distress Stated Complaint: respiratory distress, ED Provider: Corey Spears Discharge Problem: Respiratory failure, Pneumonia, Hypoxia Patient Disposition: Admitted As Inpatient Discharge Instructions Interventions: ED Discharge Assessment Last Done: 10/24/18 16:33 Discharge Problem: Respiratory failure Qualifiers: Chronicity: unspecified Respiratory failure complication: hypoxia and hypercapnia Qualified Code(s): J96.91 - Respiratory failure, unspecified with hypoxia Pneumonia Qualifiers: Pneumonia type: due to unspecified organism Laterality: left Lung location: unspecified part of lung Qualified Code(s): J18.9 - Pneumonia, unspecified organism The scribe's documentation has been prepared under my direction and personally reviewed by me in its entirety. I confirm that the note above accurately reflects all work, treatment, procedures, and medical decision making performed by me.
--- NOTE | 2018-10-24 17:08 | History & Physical Report ---
Date of Service October 24, 2018 Assessment & Plan (1) Acute respiratory failure with hypoxia: (2) Pneumonia: (3) COPD (chronic obstructive pulmonary disease): (4) SAFIA (obstructive sleep apnea): Acute respiratory failure with hypoxia likely secondary to pneumonia in setting of COPD and obesity hypoventilation syndrome and EDAC seen on bronchoscopy today. Cont current plan for empiric broad spectrum antibiotics pending culture results and clinical improvement. Cont steroids, bronchodilato rs. (5) Diabetes: Insulin coverage ordered (6) Hypertension: Elevated, amlodipine (7) Hypothyroidism: Cont home dose Synthroid. (8) Morbid obesity: (9) Hyperkalemia: 6.0 with repeat 5.9, defer to ICU staff. (10) Elevated troponin: Possibly secondary to demand ischemia but difficult to rule out ACS as patient is unresponsive. Heparin drip added per ICU staff. (11) Altered mental status: Etiologies considered but not limited to acute stroke vs metablic encephalopathy in setting of infection. (12) Lacunar infarction: Age indeterminate on CT. MRI and further CTs cannot be ordered as patient body habitus is too large. (13) Left bundle branch block: chronic. (14) DVT prophylaxis: Heparin drip GI prophylaxis with famotidine. Full Code Dispo-ICU Fatimah Rowland DO [facility] Hospitalist History of Present Illness Chief Complaint: respiratory distress Primary Care Provider: Susanne Macias DO 62 yo obese diabetic man with COPD and SAFIA presented to the ER after his brother reportedly found him lethargic around noon today. He lives with his bro ther who is unavailable by phone at this time, however, his daughter reports that the patient had been ill for the past week. Specifically, he was weak and didn't leave his recliner for several days. He was not taking his diuretic because he didn't want to have to walk to the bathroom. He was eating very little and still taking insulin. She states that he should be on oxygen, but uses it very rarely. He was using it this week, however. He also was supposed to be on CPAP at night but this was taken from him for insurance/financial reasons about 4 months ago. She confirmed that he is actively smoking but doesn't drink alcohol. She thinks her father (patient's brother) is the mPOA but tells me that he wants call directed to her because he doesn't handle things like this well. Per niece, the patient gives himself his own meds so med rec is being done from the outpatient list only. On arrival he was unable to respond and was tachypneic and hypoxic. 15 L nonrebreather was already in place from EMS. An IO was started in his right lower leg and he was given lidocaine IV. He became increasingly lethargic and was given aerosolized lidocaine via BIPAP and subsequently intubated and sedated. Allergies Allergy/AdvReac Type Severity Reaction Status Date / Time No Known Allergies Allergy Verified 06/02/16 11:34 Home Medications Home Medications Medication Instructions Recorded Confirmed Type amlodipine 2.5 mg PO DAILY 10/24/18 10/24/18 History aspirin 325 mg PO DAILY 10/24/18 10/24/18 History atorvastatin 10 mg PO DAILY 10/24/18 10/24/18 History fluticasone propionate 2 spray INTRANASAL DAILY 10/24/18 10/24/18 History furosemide 40 mg PO BID 10/24/18 10/24/18 History gabapentin 100 mg PO UD 10/24/18 10/24/18 History insulin NPH and regular human 65 unit SUBCUT PM 10/24/18 10/24/18 History [Novolin 70/30 U-100 Insulin] insulin NPH and regular human 95 unit SUBCUT QAM 10/24/18 10/24/18 History [Novolin 70/30 U-100 Insulin] levothyroxine 25 mcg PO DAILY 10/24/18 10/24/18 History levothyroxine 200 mcg PO DAILY 10/24/18 10/24/18 History metoprolol succinate 25 mg PO DAILY 10/24/18 10/24/18 History omeprazole magnesium [Prilosec OTC] 10 mg PO DAILY 10/24/18 10/24/18 History Past Med/Surg History Medical History Diabetes (Chronic) Hypertension (Chronic) Hypothyroidism (Chronic) COPD (chronic obstructive pulmonary disease) (Chronic) Chronic diastolic heart failure (Chronic) Morbid obesity (Chronic) SAFIA (obstructive sleep apnea) (Chronic) Obesity hypoventilation syndrome (Chronic) Tobacco abuse (Chronic) Graves disease Surgical History S/P correction of deviated nasal septum Family History Mother Diabetes Hypertension Brother , dies at 44 yo from [place] Heart disease Social History Preferred Language: Armenian Communication Ability: intubated [employer] Required: No Beliefs That Will Affect Care: None marital status: single Current Living Situation: Family current occupational status: unemployed Other Information That Helps Us Care for You: No Feels Safe at Home: Yes Smoking Status: Current every day smoker Hx Alcohol Use: No Hx Substance Use: No Review of Systems Review of Systems: Unobtainable due to endotracheal tube Of note, history was obtained from records as patient is intubated and sedated. Physical Exam Physical Exam: CONSTITUTIONAL: morbid obesity, intubated, sedated EYES: PERRL, normal conjuctivae, no scleral icterus ENT: MMM RESPIRATORY: coarse rhonchi throughout, some air movement heard. Limited exam as patient on ventilator and difficult to move 2/2 obesity CARDIOVASCULAR: regular rate and rhythm, S1 and 2 heard without murmurs, gallops or rubs, 2+ pittind edema in lower extremities, GASTROINTESTINAL: obese, soft, nondistended MUSCULOSKELETAL: cannot assess as patient is sedated SKIN: warm and dry, could not evaluate backside NEUROLOGIC: sedated PSYCHIATRIC: unresponsive. Results & Data Vital Signs (Past 12 Hours) Vital Signs Temp Pulse Pulse Resp BP Pulse Ox 10/24/18 16:46 77 24 92 10/24/18 16:01 62 109/59 L 98 10/24/18 15:46 61 20 96/51 L 98 10/24/18 15:30 77 23 167/82 H 94 10/24/18 15:28 74 11 L 157/90 H 93 10/24/18 15:05 77 92 10/24/18 14:52 36.4 C L 79 28 H 159/60 H 85 L 10/24/18 14:50 72 23 159/60 H 88 L Laboratory Results Short CBC 10/24/18 Range/Units 14:57 WBC 8.46 (4.8-10.8) K/uL Hgb 15.1 (14.0-18.0) g/dL Hct 47.1 (42-52) % Plt Count 183 (130-400) K/uL BMP 10/24/18 10/24/18 14:57 18:37 Sodium 136 138 Potassium 6.0 H 5.9 H Chloride 100 104 Carbon Dioxide 38 H 32 BUN 16 19 H Creatinine 1.05 0.89 Glucose 158 H 172 H Calcium 8.4 L 9.2 Cardiac Enzymes 10/24/18 10/24/18 Range/Units 14:57 21:59 Troponin I 0.064 H* 0.129 H* (0-0.045) ng/ml Liver Function 10/24/18 Range/Units 14:57 Total Bilirubin 0.5 (0.2-1) mg/dl AST 95 H (15-37) U/L ALT 74 (12-78) U/L Alkaline Phosphatase 238 H (45-117) U/L Albumin 2.7 L (3.4-5.0) gm/dl Urine 10/24/18 Range/Units 15:15 Urine Color Dark Yellow Urine Appearance Turbid A (Clear) Urine pH 5.0 (4.5-7.5) Ur Specific [place] 1.026 (1.000-1.030) Urine Protein 3+ H (Negative) Urine Glucose (UA) Negative (Negative) Diagnostic Findings XR chest 1V portable CLINICAL HISTORY: Dyspnea COMPARISON STUDY: 06/05/2016 FINDINGS: There is near complete opacification of left hemithorax. There is elevation the right lung interstitium. There is a suspected right pleural effusion.[ IMPRESSION: 1. Right lung interstitial edema pattern 2. Right pleural effusion 3. Near complete opacification left hemithorax. This may represent a combination of pleural fluid and left lung atelectasis/consolidation. CT scanning might be of benefit for further evaluation. Code Status & VTE Plan Code Status Full Code VTE Prophylaxis Plan VTE Prophylaxis will be ordered: Yes (1) Pneumonia Laterality: left Lung location: unspecified part of lung Pneumonia type: due to unspecified organism Qualified Code(s): J18.9 - Pneumonia, unspecified organism
--- NOTE | 2018-10-24 17:25 | CT Scan Report ---
CT SCAN OF THE BRAIN WITHOUT IV CONTRAST CLINICAL HISTORY: Change in mental status. COMPARISON STUDY: No priors. TECHNIQUE: Unenhanced axial CT scan of the brain is performed from the vertex to the skull base. A do se lowering technique was utilized adhering to the principles of ALARA. The patient was scanned twice due to motion artifact. CT DOSE: 2287.07 mGy.cm FINDINGS: An endotracheal tube is noted on the director [place] tomogram. Fluid is noted in the pharynx. Brain parenchyma: There is an age indeterminant lacunar infarct identified in the left thalamus. Ther e are age-related involutional changes noting mild subcortical and periventricular microangiopathic change. There is no hemorrhage, mass effect, or evidence of acute territorial ischemia by CT criteria . Cunningham-white matter differentiation is preserved. No extra-axial fluid collection is seen. Ventricles, sulci, cisterns: Prominent secondary to involutional change. Intracranial vasculature: There is atherosclerotic calcification of the cavernous carotid and vertebr al arteries. Calvarium: Unremarkable. Sinuses and mastoids: There is evidence of previous paranasal sinus surgery. There is complete opacif ication of the right seen on sinus. Thickening and sclerosis of the sinus wall indicates chronicity. Moderate mucosal thickening and fluid is noted in the right maxillary antrum. Trace mucosal thickenin g is seen in the left maxillary antrum and the right posterior ethmoid sinuses. The mastoid air cells are well pneumatized. Orbits: The bony orbits are grossly intact. IMPRESSION: 1. There is no hemorrhage, mass effect, or evidence of acute territorial ischemia by CT criteria. 2. There is an age indeterminant lacunar infarct identified in the left thalamus. 3. Paranasal sinus disease as above. Electronically signed by: Greg Rodriges M.D. 10/24/2018 5:24 PM
--- NOTE | 2018-10-24 17:35 | Critical Care Consultation ---
Date of Consultation October 24, 2018 Assessment & Plan (1) Respiratory failure: Reason Critically Ill: Javid Douglass is a 62-year-old male with a past medical history of insulin-dependent diabetes, hypertension, hypothyroidism, COPD, former tobacco use, hyperlipidemia, and morbid obesity who was taken to the ED when his brother found him nonresponsive at home and called EMS. He has been transferred to the ICU for acute respiratory failure. Neuro - [facility] ICU: POSITIVE Intubated. Sedated with propofol drip. Analgesia: Fentanyl 50-100 mcg IV every 2 hours as needed Acute encephalopathy [id number] ABG showed severe respiratory acidosis. Serum CO2 38. Mild transaminitis on initial labs, subsequent CT head negative for acute intracranial process Serum ammonia Suspect secondary to respiratory origin, see below Cardiac - ECHO: 05/2016. LVEF grossly normal, RV grossly normal, possible increased right atrial pressure, severe pulmonary hypertension, pulmonary artery systolic pressure 74mmHg. Technically limited study due to body habitus. Hyperlipidemia: Atorvastatin held as below Hypertension: Hold DEV OPS ENGINEER amlodipine 2.5 mg p.o. daily, aspirin 325 mg p.o. daily, atorvastatin 10 mg p.o. daily, metoprolol succinate 25 mg p.o. daily in setting of intubation Hold antihypertensives and DEV OPS ENGINEER Lasix 40 mg at this time in setting of hypotension. EKG showed normal sinus rhythm with widened QRS of 186 and an elevated troponin of 0.064 and a potassium of 6. No peaked T waves Respiratory - Acute hypoxic respiratory failure 2/2 suspect CAP on a background of severe COPD CXR: Near complete whiteout of left hemithorax, status post bronchoscopy, improved on repeat OHS on BiPAP +2 L/min through [facility] prior to admission -Intubated, full support Last spirometry June 2016 withFVC 65%, FEV1 59%, FEV1/FVC ratio 90%, minimal post bronchodilator change. methylprednisolone 40 mg twice daily CAP coverage with Levaquin 750 daily GI - N.p.o., intubated RENAL/LYTES - Sodium 136, potassium 6.0 Repeat BMP, follow potassium Creatinine 1.05 Magnesium 2.4 No signs of acute kidney injury at this time. - Block in place, 100 out ENDO - Type 2 diabetes mellitus insulin-dependent at home, on regular 7030 mix Convert to insulin GTT at this time Glucose checks per protocol HEME - Hemoglobin stable 15.1, monitor for drops in setting of heparin prophylaxis ID - No leukocytosis, afebrile Suspect left pneumonia treated with antibiotics as above INTEGUMENTARY - No active lesions, ulcer prophylaxis per protocol LINES/IV ACCESS - 2 PIV's intact IO access, can only be kept for 24 hours Given tenuous IV access and poor vasculature will consider central line for this patient DVT PROPHYLAXIS - Heparin prophylaxis with 7500 SQ every 8 Thank you for allowing us to be part of this patient's care. Please refer to Dr. Tavares's documentation for any further recommendations. Supervising Physician Co-Signing Physician Notes Dr. Jones was resident physician during care of patient. I separately kieran luated patient for mota portions of the history and the exam. I was present during the critical portion of medical decision making, and I discussed the case with the resident. I generally agree with the findings and plan. Severe respiratory acidosis, noncompliance with prescribed obstructive sleep apnea therapy, long-standing and ongoing tobacco abuse not followed by pulmonary. Extreme morbid obesity BMI greater than 77. Had extensive discussion with the patient's extended family, he is never been does not have any parents living nor has any children. He has 3 siblings one brother who lives locally, a sister in [place], and an additional brother who lives out of [facility]. His niece frequently visits daily and is very knowledgeable about the patient. He does not report to have a living will nor medical power of bankruptcy attorney. In discussing prognosis and risk for complications given severe COPD and prognosis should he suffer a cardiac arrest his brother and niece both agree with attempted resuscitation however the patient would not want to live if he was impaired, suffered brain damage from anoxia or required placement in a jail. Patient is unable to fit into the CT scanner to obtain any other CT beyond that of his head at this time. I believe the hypoxia and hypercarbia is truly related to his COPD exacerbation and his AA gradient is not that profound to make me consider PE high in the differential. I will place the patient on heparin empirically as I feel the benefits outweigh the risks at this time. I have personally spent 90 minutes of critical care time in the direct management of this patient. This is a life/limb threatening event. This includes time spent evaluating patient, direct bedside care, chart review, placing orders, interpretation of diagnostic studies, discussion with consultants, patient, and/or family members regarding treatment decisions, as well as other required patient management activities. This time is exclusive of all separately billable procedures, and teaching time and separate from and in addition to any other critical care service time. History of Present Illness Reason for Consultation: Acute Respiratory Failure, AMS Attending Physician: Vikki Hatfield MD History of Present Illness Mr. Javid Douglass is a 62-year-old male with a past medical history of severe obesity with BMI 77.8 and weight to 225.4 kg, diabetes, hypertension, and hypothyroidism who presented to the emergency room after he was found in his home lethargic by his brother. All history collected via EMS and via chart review, family was not available to give a history. Patient is somnolent, and intubated and is unable to give history. Per EMS reports patient's brother thought the patient may have had a cough, but did not know any further details or whether he had been ill. Patient is reportedly oxygen dependent at home.He was intubated in the ED for respiratory failure. CXR showed right lung interstitial edema. R plueral effusion, and near complete opacification of the L chest. He was seen in the emergency department by attending Dr. Tavares who performed a emergent fiberoptic bronchoscopy for respiratory failure. Bronchoalveolar lavage of the left lower lobe was performed and excessive dynamic airway collapse with near total collapse of larger airways was noted, but remington purulence was not seen. Lavage samples were sent for culture and analysis. Given the patient's altered mental status and transaminitis he was sent for noncontrast CT of the head, and noncontrast CT of the abdomen and pelvis; however, these tests were unable to be performed due to his body habitus. He was subsequently transferred to the ICU for further care. Allergies Allergy/AdvReac Type Severity Reaction Status Date / Time No Known Allergies Allergy Verified 06/02/16 11:34 Home Medications Home Medications Medication Instructions Recorded Confirmed Type amlodipine 2.5 mg PO DAILY 10/24/18 10/24/18 History aspirin 325 mg PO DAILY 10/24/18 10/24/18 History atorvastatin 10 mg PO DAILY 10/24/18 10/24/18 History fluticasone propionate 2 spray INTRANASAL DAILY 10/24/18 10/24/18 History furosemide 40 mg PO BID 10/24/18 10/24/18 History gabapentin 100 mg PO UD 10/24/18 10/24/18 History insulin NPH and regular human 65 unit SUBCUT PM 10/24/18 10/24/18 History [Novolin 70/30 U-100 Insulin] insulin NPH and regular human 95 unit SUBCUT QAM 10/24/18 10/24/18 History [Novolin 70/30 U-100 Insulin] levothyroxine 25 mcg PO DAILY 10/24/18 10/24/18 History levothyroxine 200 mcg PO DAILY 10/24/18 10/24/18 History metoprolol succinate 25 mg PO DAILY 10/24/18 10/24/18 History omeprazole magnesium [Prilosec OTC] 10 mg PO DAILY 10/24/18 10/24/18 History Patient History Medical History Diabetes (Chronic) Hypertension (Chronic) Hypothyroidism (Chronic) Social History Preferred Language: Faroese marital status: single current occupational status: unemployed Feels Safe at Home: Yes Smoking Status: Unknown if ever smoked Review of Systems Review of Systems: Unobtainable due to endotracheal tube Physical Exam Physical Exam: General: Intubated, responds weakly to painful stimuli. Appears ill. Morbidly obese HEENT: Atraumatic, normocephalic. Pulm: mild rhonchi in upper right lung field, wheeze present in right upper and lower lungs. Minimal air movement in left lung durant. ETT in place. Cardiac: Heart sounds distant, extremely difficult to appreciate. Radial pulse regular. No JVD Abdominal: Obese, soft. Results & Data Vital Signs (Past 12 Hours) Vital Signs Temp Pulse Pulse Resp BP Pulse Ox 10/24/18 16:46 77 24 92 10/24/18 16:01 62 109/59 L 98 10/24/18 15:46 61 20 96/51 L 98 10/24/18 15:30 77 23 167/82 H 94 10/24/18 15:28 74 11 L 157/90 H 93 10/24/18 15:05 77 92 10/24/18 14:52 36.4 C L 79 28 H 159/60 H 85 L 10/24/18 14:50 72 23 159/60 H 88 L Laboratory Results 10/24/18 10/24/18 10/24/18 Range/Units 15:15 15:11 14:59 WBC (4.8-10.8) K/uL RBC (4.7-6.1) M/uL Hgb (14.0-18.0) g/dL Hct (42-52) % MCV (80-100) fL MCH (25-34) pg MCHC (32-36) g/dL RDW Std Deviation (36.4-46.3) fL RDW Coeff of Neena (11.5-14.5) % Plt Count (130-400) K/uL MPV (7.4-10.4) fL Immature Gran % (Auto) % Neut % (Auto) % Lymph % (Auto) % Hunt % (Auto) % Eos % (Auto) % Baso % (Auto) % Immature Gran # (Auto) (0.00-0.02) K/uL Neut # (Auto) (1.4-6.5) K/uL Lymph # (Auto) (1.2-3.4) K/uL Hunt # (Auto) (0.11-0.59) K/uL Eos # (Auto) (0-0.5) K/uL Baso # (Auto) (0-0.2) K/uL PT (9.0-12.0) Seconds INR (0.9-1.1) APTT (21.0-31.0) Seconds PTT Ratio Sodium (136-145) mmol/L Potassium (3.5-5.1) mmol/L Chloride (98-107) mmol/L Carbon Dioxide (21-32) mmol/L Anion Gap (3-11) BUN (7-18) mg/dl Creatinine (0.6-1.4) mg/dl Est Cr Clr Drug Dosing ml/min Est GFR ( Amer) Est GFR (Non-Af Amer) BUN/Creatinine Ratio (10-20) Glucose (70-99) mg/dl POC Lactic Acid Dilan 0.73 L (0.90-1.70) mmol/L Calcium (8.5-10.1) mg/dl Magnesium (1.8-2.4) mg/dl Total Bilirubin (0.2-1) mg/dl AST (15-37) U/L ALT (12-78) U/L Alkaline Phosphatase (45-117) U/L Troponin I (0-0.045) ng/ml Total Protein (6.4-8.2) gm/dl Albumin (3.4-5.0) gm/dl Globulin (2.5-4.0) gm/dl Albumin/Globulin Ratio (0.9-2) Urine Color Dark Yellow Urine Appearance Turbid A (Clear) Urine pH 5.0 (4.5-7.5) Ur Specific [place] 1.026 (1.000-1.030) Urine Protein 3+ H (Negative) Urine Glucose (UA) Negative (Negative) Urine Ketones Negative (Negative) Urine Blood 1+ H (Negative) Urine Nitrite Negative (Negative) Urine Bilirubin Negative (Negative) Urine Urobilinogen Negative (Negative) Ur Leukocyte Esterase Negative (Negative) Urine WBC (Auto) 5-10 H (0-5) /hpf Urine RBC (Auto) 0-4 (0-4) /hpf U Hyaline Cast (Auto) 10-30 H (0-5) /lpf U Epithel Cells (Auto) >30 H (0-5) /lpf Urine Bacteria (Auto) Negative (Negative) Ur Renal Epithelial Cell 0-5 (0-5) /lpf Granular Casts 1-5 H (0) /lpf WBC Casts 1-5 H (0) /lpf Influenza Type A (PCR) Neg for Influ A (Neg) Influenza Type B (PCR) Neg for Influ B (Neg) 10/24/18 10/24/18 10/24/18 Range/Units 14:57 14:57 14:57 WBC 8.46 (4.8-10.8) K/uL RBC 4.62 L (4.7-6.1) M/uL Hgb 15.1 (14.0-18.0) g/dL Hct 47.1 (42-52) % MCV 101.9 H (80-100) fL MCH 32.7 (25-34) pg MCHC 32.1 (32-36) g/dL RDW Std Deviation 55.2 H (36.4-46.3) fL RDW Coeff of Neena 14.9 H (11.5-14.5) % Plt Count 183 (130-400) K/uL MPV 9.4 (7.4-10.4) fL Immature Gran % (Auto) 1.3 % Neut % (Auto) 75.7 % Lymph % (Auto) 11.6 % Hunt % (Auto) 10.3 % Eos % (Auto) 0.4 % Baso % (Auto) 0.7 % Immature Gran # (Auto) 0.11 H (0.00-0.02) K/uL Neut # (Auto) 6.41 (1.4-6.5) K/uL Lymph # (Auto) 0.98 L (1.2-3.4) K/uL Hunt # (Auto) 0.87 H (0.11-0.59) K/uL Eos # (Auto) 0.03 (0-0.5) K/uL Baso # (Auto) 0.06 (0-0.2) K/uL PT 11.2 (9.0-12.0) Seconds INR 1.1 (0.9-1.1) APTT 24.5 (21.0-31.0) Seconds PTT Ratio 0.9 Sodium 136 (136-145) mmol/L Potassium 6.0 H (3.5-5.1) mmol/L Chloride 100 (98-107) mmol/L Carbon Dioxide 38 H (21-32) mmol/L Anion Gap -2.0 L (3-11) BUN 16 (7-18) mg/dl Creatinine 1.05 (0.6-1.4) mg/dl Est Cr Clr Drug Dosing 130.5 ml/min Est GFR ( Amer) 86.5 Est GFR (Non-Af Amer) 74.7 BUN/Creatinine Ratio 15.3 (10-20) Glucose 158 H (70-99) mg/dl POC Lactic Acid Dilan (0.90-1.70) mmol/L Calcium 8.4 L (8.5-10.1) mg/dl Magnesium 2.4 (1.8-2.4) mg/dl Total Bilirubin 0.5 (0.2-1) mg/dl AST 95 H (15-37) U/L ALT 74 (12-78) U/L Alkaline Phosphatase 238 H (45-117) U/L Troponin I 0.064 H* (0-0.045) ng/ml Total Protein 7.8 (6.4-8.2) gm/dl Albumin 2.7 L (3.4-5.0) gm/dl Globulin 5.1 H (2.5-4.0) gm/dl Albumin/Globulin Ratio 0.5 L (0.9-2) Urine Color Urine Appearance (Clear) Urine pH (4.5-7.5) Ur Specific [place] (1.000-1.030) Urine Protein (Negative) Urine Glucose (UA) (Negative) Urine Ketones (Negative) Urine Blood (Negative) Urine Nitrite (Negative) Urine Bilirubin (Negative) Urine Urobilinogen (Negative) Ur Leukocyte Esterase (Negative) Urine WBC (Auto) (0-5) /hpf Urine RBC (Auto) (0-4) /hpf U Hyaline Cast (Auto) (0-5) /lpf U Epithel Cells (Auto) (0-5) /lpf Urine Bacteria (Auto) (Negative) Ur Renal Epithelial Cell (0-5) /lpf Granular Casts (0) /lpf WBC Casts (0) /lpf Influenza Type A (PCR) (Neg) Influenza Type B (PCR) (Neg) Diagnostic Findings XR chest 1V portable CLINICAL HISTORY: Dyspnea COMPARISON STUDY: 06/05/2016 FINDINGS: There is near complete opacification of left hemithorax. There is elevation the right lung interstitium. There is a suspected right pleural effusion.[ IMPRESSION: 1. Right lung interstitial edema pattern 2. Right pleural effusion 3. Near complete opacification left hemithorax. This may represent a combination of pleural fluid and left lung atelectasis/consolidation. CT scanning might be of benefit for further evaluation. Electronically signed by: Sebastián Gómez M.D. 10/24/2018 3:34 PM SINGLE VIEW CHEST CLINICAL HISTORY: Respiratory failure. Intubation. FINDINGS: 2 AP, portable, semierect chest radiographs are compared to study dated 10/24/2018 and correlated with chest CT dated 06/06/2016. The examination is degraded by portable technique, large body habitus, and patient rotation. And endotracheal tube has been placed. The tip projects 4 cm above the kishore. The heart is enlarged. There is pulmonary vascular congestion and interstitial edema. Layering pleural effusions are identified with bibasilar consolidation. No pneumothorax is seen. The bony thorax is grossly intact. IMPRESSION: 1. An endotracheal tube has been placed as detailed above. 2. Cardiomegaly with evidence of congestive failure and interstitial edema. 3. Layering pleural effusions with bibasilar consolidation. 4. There is significantly improved aeration of the left lung as compared to today's earlier examination. Medications Administered Current Inpatient Medications Fentanyl Citrate (Fentanyl Citrate) 50 mcg IV Q2H PRN PRN Reason: Moderate Pain (4,5,6) Stop: 11/07/18 15:59 Fentanyl Citrate (Fentanyl Citrate) 100 mcg IV Q2H PRN PRN Reason: Severe Pain (7,8,9,10) Stop: 11/07/18 15:59 Propofol (Diprivan) 1,000 mg in 100 mls @ 6.762 mls/hr IV .[id number] STA; Protocol Stop: 10/25/18 06:47 Last Admin: 10/24/18 16:26 Dose: 5 mcg/kg/min, 6.8 mls/hr Documented by: Resident Activity Tracking Resident Involvement: Resident Care Provided Care Provided: Adult Hospital Medicine (1) Respiratory failure Chronicity: unspecified Respiratory failure complication: hypoxia and hypercapnia Qualified Code(s): J96.91 - Respiratory failure, unspecified with hypoxia; J96.92 - Respiratory failure, unspecified with hypercapnia
[2018-10-24] MEDS ORDERED: CEFEPIME CONSULT ACTIVE PRN (18:04)
[2018-10-24] MEDS ORDERED: INSULIN PROTOCOL GOAL RANGE ONE (18:04)
[2018-10-24] MEDS ORDERED: CARBOHYDRATES FOR HYPOGLYCEMIA PO PRN ×2 (18:04→23:17)
[2018-10-24] MEDS ORDERED: PREDNISONE 40 MG PO SCH (18:04)
[2018-10-24] MEDS ORDERED: DOCUSATE SODIUM 100 MG CAP PO PRN (18:04)
[2018-10-24] MEDS ORDERED: ICU PROTOCOL FOR HYPERGLYCEMIA PRN (18:04)
[2018-10-24] MEDS ORDERED: DEXTROSE 50% 50 ML SYRINGE IV PRN ×2 (18:04→23:17)
[2018-10-24] MEDS ORDERED: GLUCAGON FOR INJ 1 MG VIAL SQ PRN ×2 (18:04→23:17)
[2018-10-24] MEDS ORDERED: MODERATE STRESS LEVEL ONE (18:04)
[2018-10-24] MEDS ORDERED: GLUCOSE 40% GEL 15 GM TUBE PO PRN ×2 (18:04→23:17)
[2018-10-24] MEDS ORDERED: ALBUT/IPRATROP 3MG/0.5MG NEB 3 ML VIAL INH PRN (18:04)
[2018-10-24] MEDS ORDERED: GLUCOSE 10 TABS/TUBE PO PRN ×2 (18:04→23:17)
[2018-10-24] MEDS ORDERED: POLYETHYLENE (MIRALAX) 17 GM PACK PO PRN (18:04)
[2018-10-24] MEDS ORDERED: NORMOSOL-R 1,000 ML IV SCH (18:45)
[2018-10-24 18:48] LABS: iSTAT Allen Test Pass; iSTAT Arterial Blood Gas HCO3 37 meg/L (19-24); iSTAT Arterial Blood Gas pCO2 87 mmHg (35-46); iSTAT Arterial Blood Gas pH 7.24 (7.35-7.45); iSTAT Carbon Dioxide > 40 mEq/l (24-31); iSTAT Site L Radial
[2018-10-24] MEDS ORDERED: INSULIN REGULAR 250 UNITS in SODIUM CHLORIDE 0.9% 247.5 ML IV SCH (19:00)
[2018-10-24] MEDS ORDERED: NovoLIN-R BOLUS FROM BAG IV ONE (19:00)
[2018-10-24 19:10] LABS: BUN Creatinine Ratio 20.7 (10-20); Calcium 9.2 mg/dl (8.5-10.1); Est GFR (African American) 104.7; Est GFR (Non-African American) 90.4; Potassium 5.9 mmol/L (3.5-5.1)
[2018-10-24] MEDS: CEFEPIME 2,000 MG in SYRINGE 7.5 ML IV SCH (19:31)
[2018-10-24] MEDS: methylPREDNISolone 40 MG in SYRINGE 0 ML IV SCH (19:32)
[2018-10-24] MEDS: FAMOTIDINE 20 MG in SYRINGE 3 ML IV SCH (19:32)
--- NOTE | 2018-10-24 20:27 | Procedure Note ---
Procedure Note Date of Service October 24, 2018 Procedure date: Noted above Procedure: Right axillary artery cannulation Pre-procedure Diagnosis: Need for invasive monitoring, frequent blood draws Post-procedure Diagnosis: same as above Prior to Procedure: Informed Consent: The risks, benefits, indications, potential complications, and alternatives were explained to the patient's family and informed consent obtained. Attending Staff: Jose Tavares DO Skin Prep: Chlorhexidine Anesthesia: 3 mL 1% lidocaine without epinephrine The identity of the patient was confirmed and a bedside time out was performed. Description of Procedure: After sterile prep and sterile drape utilizing standard sterile technique the superficial skin of the right axillary artery was anesthetized. The target artery was identified via dynamic ultrasound guidance and entered with a 20-gauge arrow Angiocath. Pulsatile bright red blood return was noted. Via modified Seldinger technique the self-contained guidewire was advanced and the Angiocath advanced over the guidewire. The guidewire was removed and brisk arterial blood return was noted. The pressure monitor was connected, and the arterial line was secured via silk suture. A sterile dressing was then applied. Complications: None Estimated blood loss: Trace Patient tolerated the procedure well. Procedure Date: October 24, 2018 Procedure: Procedural Ultrasound Indication: Arterial access for invasive monitoring Attending: Jose Tavares DO Artery visualized: Yes Pulsatility of artery: Yes Artery patent: Yes Line confirmed in artery with ultrasound: Yes Impression: Successful arterial cannulation Images obtained are saved for permanent record Coding
[2018-10-24] MEDS: PROPOFOL 1,000 MG/100 ML VIAL IV SCH (20:43)
[2018-10-24] MEDS ORDERED: HEPARIN IV BOLUS 10,000 UNITS in SYRINGE 0 ML IV ONE (21:00)
[2018-10-24] MEDS ORDERED: GABAPENTIN 300 MG CAP PO SCH (21:00)
[2018-10-24] MEDS: Heparin Adult STANDARD Wt-Based Dextrose 5% 25,000 units/500 mL IV SCH (21:20)
[2018-10-24] MEDS: INSULIN ASPART 100 UNITS/ML 3 ML PEN SC SCH (21:45)
--- NOTE | 2018-10-24 21:45 | Ultrasound Report ---
US venous doppler LE BI HISTORY: Pain. Edema. r/o dvt COMPARISON STUDY: None. FINDINGS: There is normal compressibility, flow, and augmentation within the bilateral lower extremit y deep venous systems. IMPRESSION: No DVT within the right or left lower extremity. The above report was generated using voice recognition software. It may contain grammatical, syntax or spelling errors. Electronically signed by: Rod Wiseman M.D. 10/24/2018 9:44 PM
--- NOTE | 2018-10-24 21:46 | XRay Report ---
XR KUB/Abdomen 1 view CLINICAL HISTORY: confirm OG placement tube position COMPARISON STUDY: No previous studies for comparison. FINDINGS: Limited exam due to patient body habitus. Nasogastric tube appears to be in the region of t he gastric fundus. It is inferior to the diaphragm. IMPRESSION: Limited study suggesting nasogastric tube position within the gastric fundus. The above report was generated using voice recognition software. It may contain grammatical, syntax or spelling errors. Electronically signed by: Rod Wiseman M.D. 10/24/2018 9:45 PM
[2018-10-24] MEDS ORDERED: HEPARIN SOD 5,000 UNIT/0.5 ML VIAL SQ SCH (22:00)
[2018-10-24] MEDS ORDERED: HEPARIN SODIUM (PORCINE) 7,500 UNITS in SYRINGE 0 ML IV SCH (22:00)
[2018-10-24] MEDS ORDERED: HEPARIN SODIUM (PORCINE) 7,500 UNITS in SYRINGE 0 ML SC SCH (22:00)
[2018-10-24] MEDS ORDERED: GABAPENTIN 250 MG/5 ML 470 ML BTL PO ONE (22:30)
[2018-10-24] MEDS: LACTATED RINGER'S 1,000 ML IV SCH (22:34)
[2018-10-24] MEDS ORDERED: DESONIDE CR 15 GM TUBE EXT PRN (23:23)
[2018-10-24] MEDS ORDERED: PHARMACY GLYCEMIC MGMT CONSULT PRN (23:36)
[2018-10-25] MEDS: INSULIN ASPART 100 UNITS/ML 3 ML PEN SC SCH ×7 (00:02→21:18)
[2018-10-25] MEDS: PROPOFOL 1,000 MG/100 ML VIAL IV SCH ×5 (00:43→13:04)
[2018-10-25 03:39] LABS: Hematocrit (blood only) 40.3 % (42-52); Hemoglobin 12.7 g/dL (14.0-18.0); Immature Granulocytes # (auto) 0.04 K/uL (0.00-0.02); Immature Granulocytes % (auto) 0.4 %; Lymphocytes # (auto) 0.61 K/uL (1.2-3.4); Lymphocytes % (auto) 6.5 %; Mean Corpuscular Hgb Conc 31.5 g/dL (32-36); Mean Corpuscular Volume 99.5 fL (80-100); Mean Platelet Volume 9.8 fL (7.4-10.4); Monocytes # (auto) 0.28 K/uL (0.11-0.59); Neutrophils # (auto) 8.43 K/uL (1.4-6.5); Neutrophils % (auto) 90.1 %; Platelet Count 130 K/uL (130-400); RDW Coefficient of Variation 14.6 % (11.5-14.5); RDW Standard Deviation 53.3 fL (36.4-46.3); Red Blood Count 4.05 M/uL (4.7-6.1); White Blood Count 9.36 K/uL (4.8-10.8)
[2018-10-25 03:54] LABS: Gastric Occult Blood Positive (Negative); pH Gastric Fluid 2
[2018-10-25 03:59] LABS: Albumin Level 2.1 gm/dl (3.4-5.0); BUN Creatinine Ratio 21.8 (10-20); Bilirubin Direct 0.2 mg/dl (0-0.2); Calcium 8.1 mg/dl (8.5-10.1); Creatinine Clr Calc Pharmacy 142.7 ml/min; Est GFR (African American) 96.4; Est GFR (Non-African American) 83.2; Partial Thromboplastin Ratio > 5.1; Potassium 5.6 mmol/L (3.5-5.1)
[2018-10-25 04:05] LABS: Bilirubin,Total 0.5 mg/dl (0.2-1); Phosphorus 1.9 mg/dl (2.5-4.9); Total Protein 6.1 gm/dl (6.4-8.2); Troponin I 0.157 ng/ml (0-0.045)
[2018-10-25] MEDS: CEFEPIME 2,000 MG in SYRINGE 7.5 ML IV SCH ×2 (04:17→11:30)
[2018-10-25 04:30] LABS: Partial Thromboplastin Time > 139.0 Seconds (21.0-31.0)
[2018-10-25] MEDS: LEVOTHYROXINE SODIUM 200 MCG TABLET PO SCH (05:55)
[2018-10-25] MEDS: LEVOTHYROXINE SODIUM 50 MCG TABLET PO SCH (05:55)
[2018-10-25 05:56] LABS: Partial Thromboplastin Ratio 4.1
[2018-10-25 06:06] LABS: Partial Thromboplastin Time 112.1 Seconds (21.0-31.0)
[2018-10-25 06:57] LABS: Estimated Average Glucose 163 mg/dl; Hemoglobin A1C 7.3 % (4.5-5.6)
--- NOTE | 2018-10-25 06:59 | XRay Report ---
XR chest 1V portable HISTORY: 62 years-old Male intubation acute respiratory failure COMPARISON: Chest radiograph 10/24/2018 TECHNIQUE: Portable semisupine AP view of the chest FINDINGS: Endotracheal tube overlies the midline, 3.3 cm superior to the kishore. An enteric tube is noted cours ing below the level the diaphragm outside the [id number]. Cardiac silhouette is enlarged. Persiste nt pulmonary edema. No pneumothorax. Bilateral pleural effusions with bibasilar consolidation redemon strated. Degenerative changes of the shoulders and spine. IMPRESSION: 1. Endotracheal tube overlies the midline, 3.3 cm superior to the kishore. 2. An enteric tube courses below the diaphragm outside the [id number]. 3. Cardiomegaly with pulmonary edema. 4. Bilateral pleural effusions with bibasilar consolidation persists. The above report was generated using voice recognition software. It may contain grammatical, syntax o r spelling errors. Electronically signed by: Brenton Aponte M.D. 10/25/2018 6:58 AM
--- NOTE | 2018-10-25 07:18 | Critical Care Progress Note ---
Date of Service October 25, 2018 Assessment & Plan (1) Respiratory failure: Reason Critically Ill: Javid Douglass is a 62-year-old male with a past medical history of insulin-dependent diabetes, hypertension, hypothyroidism, COPD, former tobacco use, hyperlipidemia, and morbid obesity who was taken to the ED when his brother found him nonresponsive at home and called EMS. He has been transferred to the ICU for acute respiratory failure. Neuro - [facility] ICU: NEGATIVE. Extubated. No sedation at this time. Analgesia: Fentanyl 50-100 mcg IV every 2 hours as needed Acute encephalopathy, resolved - In the setting of resspiratory failure, acidosis - CT-H negative for acute intracranial processes. - Improved today Cardiac - ECHO: 05/2016. LVEF grossly normal, RV grossly normal, possible increased right atrial pressure, severe pulmonary hypertension, pulmonary artery systolic pressure 74mmHg. Technically limited study due to body habitus. Demand ischemia Troponin of 0.064 on admission, has slowly trended up to 0.29. Continue to trend troponin, troponin every 6 hours EKG this morning without ST changes Repeat EKG if troponins continue to trend Repeat echo Severely limited based on body habitus but grossly LVEF appears normal. Wall motion abnormalities could not be excluded due to poor visualization Hyperlipidemia: Atorvastatin held as below Hypertension: - Continue amlodipine 5mg PO qAM - Continue atorvastatin 10mg daily, asa 325 mg daily - Resume metoprolol succinate 25mg daily tomorrow - Lasix 40mg PO daily Respiratory - Acute hypoxic respiratory failure 2/2 suspect CAP on a background of severe COPD, improved/resolving CXR: Initially Near complete whiteout of left hemithorax, status post bronchoscopy - Extubated today, breathing well on BiPAP Last spirometry June 2016 withFVC 65%, FEV1 59%, FEV1/FVC ratio 90%, minimal post bronchodilator change. methylprednisolone 40 mg twice daily CAP coverage with Levaquin 750 daily / Cefepime 2g Q8H narrowed to rocephin 2g daily, anticipate 7-10 day course GI - Extubated today, npo with coresafe Advance diet as tolerated RENAL/LYTES - Sodium 138, potassium 5.6, creatinine 0.96, CO2 35 BMP daily, Lasix 40 p.o. daily No signs of acute kidney injury - Block in place, 1200 out last 24 hours, 3078 cc in ENDO - Type 2 diabetes mellitus insulin-dependent at home, on regular 7030 mix Insulin GTT discontinued ICU hyperglycemia protocol HEME - Hemoglobin stable, monitor for drops in setting of heparin prophylaxis ID - No leukocytosis, afebrile Suspect left pneumonia treated with antibiotics as above INTEGUMENTARY - Fungal growth in pannus pocket, nystatin powder daily. Fungal culture pending. Grade 1 skin breakdown under pannus and an inguinal folds treated with Aquacel today LINES/IV ACCESS - 2 PIV's intact DVT PROPHYLAXIS - Heparin prophylaxis with 7500 SQ every 8 No DVT on venous duplex Thank you for allowing us to be part of this patient's care. Please refer to Dr. Tavares's documentation for any further recommendations. Supervising Physician Co-Signing Physician Notes Dr. Kaur was resident physician during care of patient. I separately evaluated patient for mota portions of the history and the exam. I was present during the critical portion of medical decision making, and I discussed the case with the resident. I generally agree with the findings and plan. Mild hyperkalemia, elevated bicarb secondary to chronic respiratory acidosis. Elevated blood sugars most likely secondary to steroid use, A1c also elevated probable poor compliance with insulin regimen. Elevated alkaline phosphatase as well as troponins, I believe the troponin is secondary to type II demand ischemia and the elevated AST is likely fatty liver disease. Continue heparin given the elevated troponins and cannot exclude PE however I think it is unlikely. Negative for influenza. Echocardiogram pending, chest x-ray reviewed which reveals probable pulmonary edema will start mild diuresis. During patient care patient appears to have blue-colored fungus growing in skin folds, I have ordered nystatin powder for these areas as well as a wound care consult. Fungal blood culture ordered. No DVT noted on venous duplex. At this time I am unable to obtain a CT scan as the patient cannot fit through the gang-way so I am unable to visualize his chest via CT as well as abdomen and pelvis. I have personally spent 40 minutes of critical care time in the direct management of this patient. This is a life/limb threatening event. This includes time spent evaluating patient, direct bedside care, chart review, placing orders, interpretation of diagnostic studies, discussion with consultants, patient, and/or family members regarding treatment decisions, as well as other required patient management activities. This time is exclusive of all separately billable procedures, and teaching time and separate from and in addition to any other critical care service time. Subjective Mr. Douglass was sedated and intubated this morning, unable to give history. He did well on the ventilator overnight with adequate oxygen saturation provement in his ABGs. Given his good clinical course his propofol was weaned and he was converted to midozalam bolus for sedation and fentanyl for pain control. Addendum 10/25/2018 1729 hrs.: Following the propofol wean his mental status greatly improved. He was able to follow commands, indicated consistent answers to medical questions via hand squeeze for yes and no and indicated he was slightly short of breath, had a pain level of a little under 5 out of 10, and is aware that he was in the hospital. He continued to breathe well a trial of CPAP with 6 cm of positive pressure, was subsequently extubated and placed on BiPAP. Review of Systems Review of Systems: Unobtainable due to endotracheal tube Physical Exam Physical Exam: General: Intubated, arouses briefly to painful stimuli. Morbidly obese HEENT: Atraumatic, normocephalic. Pulm: Rhonchi in upper right lung field improved, wheeze present in right upper and lower lungs. Improved air movement in L left, moderate movement overall. ETT in place. Cardiac: Heart sounds distant, extremely difficult to appreciate. Radial pulse regular. No JVD Abdominal: Obese, soft. Fungal rash present in suprapublic pannus. Inguinal crease with some skin breakdown, grade I ulceration. Addendum, 1731 hrs.: Did well on vent wean, currently extubated and breathing well. Moderate air movement bilaterally, expiratory wheeze continues to be appreciated diffusely in all lung durant. Mild rhonchi best appreciated at right upper lobe. Results & Data Vital Signs (Past 12 Hours) Vital Signs Temp Pulse Pulse Resp BP Pulse Ox 10/25/18 06:00 58 L 175/69 H 100 10/25/18 05:01 55 L 156/59 H 100 10/25/18 05:00 56 L 100 10/25/18 04:28 37.3 C 10/25/18 04:02 57 L 100 10/25/18 04:01 64 174/68 H 100 10/25/18 04:00 60 100 10/25/18 03:00 65 182/65 H 100 10/25/18 02:30 57 L 20 100 10/25/18 02:01 70 183/76 H 99 10/25/18 02:00 66 100 10/25/18 01:01 64 181/69 H 99 10/25/18 01:00 72 98 10/25/18 00:06 60 196/73 H 100 10/25/18 00:00 37.3 C 65 100 10/24/18 23:58 68 20 100 10/24/18 23:02 63 95 10/24/18 23:00 64 194/73 H 95 10/24/18 22:00 60 18 162/76 H 100 10/24/18 21:00 61 20 182/75 H 100 10/24/18 20:54 36.5 C 58 L 20 91 10/24/18 20:25 60 24 170/85 H 100 10/24/18 20:00 64 19 207/73 H 98 10/24/18 19:00 60 18 183/74 H 99 Resident Activity Tracking Resident Involvement: Resident Care Provided Care Provided: Adult Hospital Medicine (1) Respiratory failure Chronicity: unspecified Respiratory failure complication: hypoxia and hypercapnia Qualified Code(s): J96.91 - Respiratory failure, unspecified with hypoxia; J96.92 - Respiratory failure, unspecified with hypercapnia
[2018-10-25] MEDS: LACTATED RINGER'S 1,000 ML IV SCH (07:22)
[2018-10-25] MEDS ORDERED: FUROSEMIDE 20 MG in SYRINGE 0 ML IV ONE (07:25)
[2018-10-25] MEDS: AMLODIPINE BESYLATE 5 MG TAB PO SCH (07:53)
[2018-10-25] MEDS: FAMOTIDINE 20 MG in SYRINGE 3 ML IV SCH ×2 (07:53→21:42)
[2018-10-25] MEDS: methylPREDNISolone 40 MG in SYRINGE 0 ML IV SCH ×2 (07:53→21:47)
[2018-10-25] MEDS: GABAPENTIN 250 MG/5 ML 470 ML BTL PO SCH ×3 (07:53→21:47)
[2018-10-25] MEDS: ATORVASTATIN 10 MG TAB PO SCH (07:53)
[2018-10-25] MEDS ORDERED: GABAPENTIN 100 MG CAP PO SCH (08:00)
[2018-10-25 08:20] LABS: Partial Thromboplastin Time 53.5 Seconds (21.0-31.0)
[2018-10-25 08:29] LABS: Troponin I 0.21 ng/ml (0-0.045)
[2018-10-25 08:54] LABS: iSTAT Arterial Blood Gas HCO3 36 meg/L (19-24); iSTAT Arterial Blood Gas pCO2 52 mmHg (35-46); iSTAT Arterial Blood Gas pH 7.45 (7.35-7.45); iSTAT Carbon Dioxide 38 mEq/l (24-31); iSTAT Site Art Line
[2018-10-25] MEDS: Heparin Adult STANDARD Wt-Based Dextrose 5% 25,000 units/500 mL IV SCH (11:02)
[2018-10-25] MEDS ORDERED: MIDAZOLAM HCL 1 MG/ML 2ML VIAL IV PRN ×2 (13:14)
[2018-10-25] MEDS: cefTRIAXone SODIUM 2,000 MG in DEXTROSE 5% 50 ML IV SCH (14:22)
[2018-10-25 15:05] LABS: Partial Thromboplastin Ratio 3.8
[2018-10-25 15:08] LABS: Partial Thromboplastin Time 103.9 Seconds (21.0-31.0)
--- NOTE | 2018-10-25 15:20 | Pharmacy Report ---
Glycemic Control Consultation - Date of Service October 25, 2018 - Scope Scope: Glycemic Pharmacist consulted by Dr Tavares on 10/24 for glycemic control and to write orders per [facility] inpatient glycemic control protocol - Objective Weight: 219.3 kg Accuchecks BSG (last 24hrs): 10/24/18 10/24/18 10/24/18 14:57 18:17 18:37 Glucose 158 H 172 H POC Glucose 159 H 10/24/18 10/24/18 10/24/18 20:31 21:27 21:42 Glucose POC Glucose 164 H 130 H 137 H 10/24/18 10/24/18 10/24/18 22:01 22:18 23:56 Glucose POC Glucose 124 H 131 H 139 H 10/25/18 10/25/18 10/25/18 03:30 05:51 11:04 Glucose 183 H POC Glucose 196 H 159 H Laboratory Data (last 24hrs): 10/24/18 10/24/18 10/25/18 14:57 18:37 03:30 Potassium 6.0 H 5.9 H 5.6 H Carbon Dioxide 38 H 32 35 H Anion Gap -2.0 L 2.0 L 1.0 L Creatinine 1.05 0.89 0.96 Est Cr Clr Drug Dosing 130.5 154.0 142.7 HbA1c: Hemoglobin A1c 7.3 % (4.5-5.6) H 10/25/18 03:30 - Recent Pertinent Medications Outpatient Anti-diabetic Regimen: * NPH/Regular 70-30 95 units QAM, 65 units QPM * A1c = [] % [date] The patient is currently receiving: Risk Factors for Insulin Resistance: * Steroids: Methylprednisolone 40 mg BID * Infection: Rocephin * Diet: NPO * Mechanical Ventilation: Intubated 10/24 - Assessment & Plan Assessment & Plan: ASSESSMENT: * 62 yo male with morbid obesity with [employer] and SAFIA presented to ER with lethargy, intubated for respiratory failure. Currently being treated with rocephin/methylprednisolone 40 mg IV BID, NPO * Patient's BSGs have been well controlled at this time on only siding scale, however, concerned BSGs will increase with steroids/no basal insulin on board given large dosing regimen at home- will order lantus sliding scale for this evening * Current novolog dosed between stress of 1 and 2- could potentially tighten should BSGs increase PLAN FOR INPATIENT GLYCEMIC CONTROL: * Holding outpatient oral diabetes medications * Basal insulin * Lantus 10 units for BSG 160-220; 20 units >220 * Bolus insulin * NovoLog per scale ACHS or Q6hrs while NPO * Goal Range: Low 140 mg/dL - High 180 mg/dL * Correction Factor: 15 mg/dL/unit * Nutritional / Prandial insulin per carb ratio of 1 unit per 7 grams CHO consumed * Please note that the plan above was derived based on current level of insulin resistance and hospital stress. These recommendations are appropriate for inpatient admission only. Plan of care upon discharge will need to be reassessed to avoid potential outpatient hypo/hyperglycemia. Thank you.
[2018-10-25] MEDS ORDERED: MICONAZOLE NITRATE POWDER 43 GM EXT PRN (15:56)
[2018-10-25] MEDS ORDERED: POT PHOSPHATE MONOBASIC W/ SOD TAB PO SCH (16:00)
[2018-10-25] MEDS ORDERED: LEVOFLOXACIN/D5W 750 MG/150 ML BAG IV SCH (16:00)
[2018-10-25] MEDS ORDERED: ALBUT/IPRATROP 3MG/0.5MG NEB 3 ML VIAL NEB STA (17:01)
[2018-10-25] MEDS: NICOTINE 7 MG/24 HR TDSY TD SCH (18:04)
--- NOTE | 2018-10-25 18:08 | Hospitalist Progress Note ---
Date of Service October 25, 2018 Assessment & Plan (1) Acute respiratory failure with hypoxia: (2) Pneumonia: (3) COPD (chronic obstructive pulmonary disease): (4) SAFIA (obstructive sleep apnea): Present on admission with respiratory distress CXR on admission showed near complete opacification left hemithorax. ABG on admission showed pH 7.2 and PCO2 87 was intubated on vent support S/P extubated today Continue Rocephin and solumedrol Will start on Cpap at night Continue monitor closely in the ICU Will discuss with case management to help him to gain his CPAP on discharge (5) Diabetes: Insulin coverage ordered (6) Hypertension: BP elevated Will consider to increase amlodipine to 10mg if BP remains high Monitor BP (7) Hypothyroidism: Cont home dose Synthroid. (8) Morbid obesity: (9) Hyperkalemia: K on admssion 6 K today 5.6 Monitor BMP (10) Elevated troponin: Mostly due to demand ischemia Troponin peaked to 0.29 On heparin drip (unable to get r/o PE with CTA chest due to pt unable to fit in the scan Continue trend troponin Continue statin and aspirin (11) Altered mental status: Mostly due to elevated CO2 CT head showed age indeterminate lacunar infarct back to baseline (12) Lacunar infarction: Age indeterminate on CT. MRI and further CTs cannot be ordered as patient body habitus is too large. (13) Left bundle branch block: chronic. DM type 2 Hba1c 7.3 Pharmacy on board for glycemic management Monitor BS (14) DVT prophylaxis: Heparin drip GI prophylaxis with famotidine. Full Code Disposition Continue monitor in the ICU Subjective Pt was seen and examined Lying in bed with no acute distress Family at bedside S/P extubation today Denies any chest pain, palpitation and fever Physical Exam Physical Exam: General- No acute distress Head- atraumatic Eyes- PERRL, EOMI, ENT- oropharynx clear Neck- supple, no JVD Lungs- diminished BS and rhonchi Heart- regular rhythm; no murmur Abdomen- normal bowel sounds, soft, nontender, obese Extremities- no calf tenderness Neuro- alert, oriented x 3; PERRL, EOMI; no facial palsy; no dysarthria Skin- warm & dry Results & Data Vital Signs (Past 12 Hours) Vital Signs Temp Pulse Pulse Resp BP BP Pulse Ox 10/25/18 18:06 102 H 22 94 10/25/18 18:01 99 H 26 H 102 H 10/25/18 18:00 103 H 27 H 163/74 H 92 10/25/18 17:00 91 H 24 172/64 H 94 10/25/18 16:00 89 95 H 26 H 93 10/25/18 15:51 20 10/25/18 15:00 76 20 183/81 H 94 10/25/18 14:45 73 22 94 10/25/18 14:00 73 14 155/79 H 93 10/25/18 13:00 56 L 14 176/62 H 99 10/25/18 12:00 56 L 16 176/69 H 99 10/25/18 11:16 59 L 15 99 10/25/18 11:00 36.9 C 60 174/69 H 99 10/25/18 10:00 61 150/60 H 98 10/25/18 09:00 59 L 164/63 H 97 10/25/18 08:46 12 10/25/18 08:00 36.9 C 60 183/72 H 100 10/25/18 07:20 70 21 100 10/25/18 07:00 58 L 176/64 H 100 10/25/18 06:41 57 L 20 100 (1) Pneumonia Laterality: left Lung location: unspecified part of lung Pneumonia type: due to unspecified organism Qualified Code(s): J18.9 - Pneumonia, unspecified organism
[2018-10-25] MEDS ORDERED: INSULIN GLARGINE SOLOSTAR 100 UNITS/ML 3 ML PEN SC ONE (21:00)
[2018-10-25 21:35] LABS: Partial Thromboplastin Ratio 2.8
[2018-10-25 21:43] LABS: Partial Thromboplastin Time 76.3 Seconds (21.0-31.0)
[2018-10-26] MEDS: INSULIN ASPART 100 UNITS/ML 3 ML PEN SC SCH ×6 (00:28→21:08)
[2018-10-26] MEDS: Heparin Adult STANDARD Wt-Based Dextrose 5% 25,000 units/500 mL IV SCH ×2 (03:51→22:13)
[2018-10-26 04:24] LABS: Basophils # (auto) 0.01 K/uL (0-0.2); Basophils % (auto) 0.1 %; Hematocrit (blood only) 39.3 % (42-52); Hemoglobin 12.9 g/dL (14.0-18.0); Immature Granulocytes # (auto) 0.06 K/uL (0.00-0.02); Immature Granulocytes % (auto) 0.5 %; Lymphocytes # (auto) 0.71 K/uL (1.2-3.4); Lymphocytes % (auto) 6.2 %; Mean Corpuscular Hgb Conc 32.8 g/dL (32-36); Mean Corpuscular Volume 98.5 fL (80-100); Mean Platelet Volume 9.5 fL (7.4-10.4); Monocytes # (auto) 0.58 K/uL (0.11-0.59); Neutrophils # (auto) 10.15 K/uL (1.4-6.5); Neutrophils % (auto) 88.2 %; Platelet Count 154 K/uL (130-400); RDW Coefficient of Variation 15.1 % (11.5-14.5); RDW Standard Deviation 54.3 fL (36.4-46.3); Red Blood Count 3.99 M/uL (4.7-6.1); White Blood Count 11.51 K/uL (4.8-10.8)
[2018-10-26 04:44] LABS: Partial Thromboplastin Ratio 2.5
[2018-10-26 05:04] LABS: Albumin Level 2.3 gm/dl (3.4-5.0); BUN Creatinine Ratio 25.8 (10-20); Bilirubin Direct 0.2 mg/dl (0-0.2); Bilirubin,Total 0.5 mg/dl (0.2-1); Calcium 8.1 mg/dl (8.5-10.1); Creatinine Clr Calc Pharmacy 120.1 ml/min; Magnesium 2.2 mg/dl (1.8-2.4); Phosphorus 3.8 mg/dl (2.5-4.9); Potassium 5.6 mmol/L (3.5-5.1); Total Protein 6.5 gm/dl (6.4-8.2)
[2018-10-26] MEDS: LEVOTHYROXINE SODIUM 200 MCG TABLET PO SCH (06:20)
[2018-10-26] MEDS: LEVOTHYROXINE SODIUM 50 MCG TABLET PO SCH (06:20)
--- NOTE | 2018-10-26 07:10 | XRay Report ---
XR chest 1V portable CLINICAL HISTORY: intubation tube position COMPARISON STUDY: 10/25/2018 FINDINGS: Interval extubation. Stable cardiomegaly. Prominent pulmonary vasculature is moderately imp roved from the prior study. Interval removal of the nasogastric tube. IMPRESSION: 1. Interval extubation and removal of the enteric tube. 2. Improving pulmonary edema. The above report was generated using voice recognition software. It may contain grammatical, syntax or spelling errors. Electronically signed by: Rod Wiseman M.D. 10/26/2018 7:07 AM
[2018-10-26] MEDS: methylPREDNISolone 40 MG in SYRINGE 0 ML IV SCH (07:49)
[2018-10-26] MEDS: GABAPENTIN 250 MG/5 ML 470 ML BTL PO SCH ×3 (07:49→20:57)
[2018-10-26] MEDS: ASPIRIN 81 MG CHEW PO SCH (07:49)
[2018-10-26] MEDS: FAMOTIDINE 20 MG in SYRINGE 3 ML IV SCH ×2 (07:49→20:56)
[2018-10-26] MEDS: NICOTINE 7 MG/24 HR TDSY TD SCH (07:50)
[2018-10-26] MEDS: AMLODIPINE BESYLATE 5 MG TAB PO SCH (07:50)
[2018-10-26] MEDS: ATORVASTATIN 10 MG TAB PO SCH (07:50)
[2018-10-26] MEDS: METOPROLOL TARTRATE 25 MG TAB PO SCH ×2 (09:06→20:45)
[2018-10-26] MEDS ORDERED: INSULIN GLARGINE SOLOSTAR 100 UNITS/ML 3 ML PEN SC SCH (09:15)
--- NOTE | 2018-10-26 09:40 | Pharmacy Report ---
Pharmacy Glycemic Short Note 2 - Date of Service October 26, 2018 - Glycemic Short BSG Results (Last 24 hours): 10/25/18 10/25/18 10/25/18 11:04 17:34 21:08 Glucose POC Glucose 159 H 268 H 248 H 10/26/18 10/26/18 10/26/18 00:15 04:02 04:08 Glucose 251 H POC Glucose 243 H 257 H 10/26/18 07:55 Glucose POC Glucose 237 H OUTPATIENT ANTIDIABETIC REGIMEN: * 70/30 95 units QAM; 65 units QPM ASSESSMENT: * BSGs controlled until yesterday PM, elevated into 200s * Patient used 38 units of insulin, 20 units of lantus 18 of correctional * Patient's fasting elevated this AM 237; methylprednisolone is being discontinued today * Will increase lantus dose to 30 units this AM- this is still a reduction from home use (and between weight based stress of 1 and 2) however, with NPO status and steroid's being discontinued being conservative at this time. Scale for PM * Will tighten novolog parameters closer to weight based stress of 2. PLAN FOR INPATIENT GLYCEMIC CONTROL: * Hold outpatient oral diabetes medications * Basal insulin * Lantus 30 units this AM * Scale for PM * 10 units for bsg <110 * 20 units for BSG 110-140 * 30 units for BSG 140-200 * 40 units for BSG >200 * Bolus insulin * NovoLog per scale ACHS or Q6hrs while NPO * Goal Range: Low 140 mg/dL - High 180 mg/dL * Correction Factor: 10 mg/dL/unit * Nutritional / Prandial insulin per carb ratio of 1 unit per 5 grams CHO consumed PLAN FOR DISCHARGE: * to be determined
[2018-10-26] MEDS ORDERED: AMLODIPINE BESYLATE 5 MG TAB PO ONE (10:05)
[2018-10-26 11:15] LABS: Partial Thromboplastin Ratio 2.2
[2018-10-26 11:34] LABS: Partial Thromboplastin Time 60.2 Seconds (21.0-31.0)
--- NOTE | 2018-10-26 11:58 | Critical Care Progress Note ---
Date of Service October 26, 2018 Assessment & Plan (1) Elevated troponin I level: Reason Critically Ill: Javid Douglass is a 62-year-old male with a past medical history of insulin-dependent diabetes, hypertension, hypothyroidism, COPD, former tobacco use, hyperlipidemia, and morbid obesity who was taken to the ED when his brother found him nonresponsive at home and called EMS. He has been transferred to the ICU for acute respiratory failure. He is clinically improved from a respiratory standpoint, but developed asymptomatic chest pain with an uptrending troponin. Neuro - [facility] ICU: NEGATIVE. Extubated. No sedation at this time. Analgesia: Fentanyl 50-100 mcg IV every 2 hours as needed Acute encephalopathy, resolved - In the setting of resspiratory failure, acidosis - CT-H negative for acute intracranial processes. - Improved today Cardiac - ECHO: 05/2016. LVEF grossly normal, RV grossly normal, possible increased right atrial pressure, severe pulmonary hypertension, pulmonary artery systolic pressure 74mmHg. Technically limited study due to body habitus. Demand ischemia Troponin up trended to 3.[address] changes on EKG Repeat echo unchanged from prior. Severely limited based on body habitus but grossly LVEF appears normal. Wall motion abnormalities could not be excluded due to poor visualization He is not a candidate for PCI due to risk and technical limitations. Suspect that his troponins are elevated in the setting of type II mismatch, manage afterload as follows: Continue metoprolol tartrate 12.5 mg twice daily, increase amlodipine from 5 mg to 10 mg every morning, added lisinopril 20 mg every morning, added prazosin 1 mg by mouth every 8 hours, diuresis with Lasix 40 mg p.o. twice daily. Nitropaste 1 inch every 6 hours. If clinically inadequate response, may convert to nitro drip Cardiology consulted, will continue to follow Continue heparin drip Hyperlipidemia: Atorvastatin held as below Hypertension: - Continue amlodipine as above - Continue atorvastatin 10mg daily, asa 325 mg daily - Resume metoprolol succinate as above - Lasix as above Respiratory - Acute hypoxic respiratory failure 2/2 suspect CAP on a background of severe COPD, improved/resolving CXR: Initially Near complete whiteout of left hemithorax, status post bronchoscopy - Extubated today, breathing well on BiPAP Last spirometry June 2016 withFVC 65%, FEV1 59%, FEV1/FVC ratio 90%, minimal post bronchodilator change. methylprednisolone 40 mg twice daily CAP coverage with Levaquin 750 daily / Cefepime 2g Q8H narrowed to rocephin 2g daily, anticipate 7-10 day course Continue NIPPV support GI - Heart healthy, diabetic diet RENAL/LYTES - Sodium 136, potassium 5.6 Lasix diuresis as above to also lower potassium No signs of acute kidney injury - Block in place, 1800 out last 24 hours, net -1.032 L ENDO - Type 2 diabetes mellitus insulin-dependent at home, on regular 7030 mix Insulin GTT discontinued ICU hyperglycemia protocol HEME - Hemoglobin stable, monitor for drops in setting of heparin prophylaxis ID - No leukocytosis, afebrile Suspect left pneumonia treated with antibiotics as above INTEGUMENTARY - Fungal growth in pannus pocket, nystatin powder daily. Fungal culture pending. Grade 1-2 skin breakdown under pannus and an inguinal folds treated with Aquacel today LINES/IV ACCESS - 2 PIV's intact DVT PROPHYLAXIS - Heparin drip as above No DVT on venous duplex Supervising Physician Co-Signing Physician Notes Dr. Kaur was resident physician during care of patient. I separately evaluated patient for mota portions of the history and the exam. I was present during the critical portion of medical decision making, and I discussed the case with the resident. I generally agree with the findings and plan. Extubated yesterday and has done well since. Continue to trend troponins a continue to uptrend, patient is chest pain-free, EKG no evidence of ST elevation AK, scar Bosa criteria negative. Will add 10 mg Norvasc, no room to move beta- kate as he is heart rate is in the 60s, 20 mg lisinopril, prazosin 1 mg may require up titration of prazosin. Patient already on heparin presumptively for the possibility of PE/DVT however again I think this is highly unlikely we cannot obtain a chest CT and now patient is on heparin for non-ST elevation AK. Will obtain cardiology consult. Convert Rocephin to Augmentin for 7-day laura atment course. Not on fluoroquinolone or macrolide given most likely undiagnosed severe COPD secondary to mildly prolonged QTC at 479 again I think this is artifactual secondary to left bundle branch block. BiPAP/CPAP when sleeping and napping. Aggressive PT OT stable for downgrade out of the ICU today. Subjective Mr. Douglass reports he feels better this morning. He is oriented to name, date, and place but requires reiteration and redirection regarding the nature of his illness. He reports he feels he did well overnight. He does not have any chest pain, and feels that shortness of breath is greatly improved, although still intermittently present. He denies arm pain, palpitations, headache, vision change. His heart rate has been elevated overnight.. He denies lower leg pain. Review of Systems Review of Systems: Constitutional: Denies fever, chills, malaise Eyes: Denies vision change ENT: Denies ear pain, sore throat, sinus pain Cardiovascular: Denies Chest pain, chest pressure, palpitations. Endorses extremity swelling Respiratory: Endorses shortness of breath, intermittent nonproductive cough. Denies difficulty breathing. Denies sputum production Gastrointestinal: Denies abdominal pain, nausea, vomiting Genitourinary: Denies pain with urination Musculoskeletal: Denies weakness, muscle aches/pain, joint aches/pain Integumentary:Denies new rash, lesions, bruising Neurological: Denies headache, focal weakness Physical Exam Physical Exam: General: A&Ox3. Cooperative. No acute distress. Obese. Wearing CPAP mask at time of visit. HEENT: Atraumatic, normocephalic. Pulm: Moderate air movement overall, expiratory wheezes in right upper and right lower lung durant. No rales appreciated. Symmetrical chest rise Cardiac: Heart sounds difficult to appreciate. RRR, -mrg. Radial pulses intact and symmetrical. No JVD appreciated Abdominal: Obese. Pannus lifted to change dressings and inguinal creases, grade 2 ulcers without erythema or purulent discharge. Extremity: Pitting edema in the legs bilaterally. Results & Data Vital Signs (Past 12 Hours) Vital Signs Temp Pulse Resp BP Pulse Ox 10/26/18 06:00 61 96 10/26/18 05:00 68 95 10/26/18 04:54 66 14 94 10/26/18 04:00 37 C 63 96 10/26/18 03:00 69 97 10/26/18 02:00 75 92 10/26/18 01:47 64 16 92 10/26/18 01:00 75 92 10/26/18 00:57 69 93 10/26/18 00:01 36.5 C 73 214/81 H 93 10/26/18 00:00 79 05/10/19 23:29 79 26 H 92 10/25/18 23:01 71 203/81 H 92 10/25/18 22:02 98 H 123/107 H 88 L 10/25/18 21:02 74 103/45 L 84 L 10/25/18 20:01 36.6 C 97 H 180/96 H 94 10/25/18 19:33 81 19 99 10/25/18 19:22 110 H 28 H 93 10/25/18 19:01 111 H 190/94 H 94 Resident Activity Tracking Resident Involvement: Resident Care Provided Care Provided: Adult [facility]
[2018-10-26] MEDS ORDERED: METOPROLOL TARTRATE 1 MG/ML VIAL IV SCH (12:00)
[2018-10-26] MEDS ORDERED: CONSULT PHARMACY STA (12:16)
[2018-10-26] MEDS ORDERED: INSULIN GLARGINE SOLOSTAR 100 UNITS/ML 3 ML PEN SC ONE ×2 (12:30→21:00)
[2018-10-26] MEDS ORDERED: NITROGLYCERIN 2% OINTMENT 30GM TUBE EXT SCH (12:45)
--- NOTE | 2018-10-26 12:50 | Cardiology Consultation ---
Date of Consultation October 26, 2018 Assessment & Plan (1) Acute on chronic diastolic (congestive) heart failure: Patient appears volume overloaded on physical exam. He will require significant diuresis. Heart failure likely precipitated by noncompliance with diuretic therapy in the outpatient setting. Recommend IV diuretic therapy to maintain negative fluid balance. Repeat basic metabolic panel this afternoon due to evidence of hyperkalemia. 40 minutes critical care time spent evaluating patient, reviewing data, lab testing, imaging studies, and discussion of plan of care with consultants and family. (2) Hypertensive urgency: Add topical nitrates and intravenous diuretic therapy at this time. Consider intravenous nitroglycerin pending clinical response. Continue beta- kate therapy and titrate as tolerated to improve blood pressure control. (3) Elevated troponin I level: Suspect type II event related to acute hypoxic respiratory failure in the setting of mucous plugging and acute decompensated diastolic heart failure. Continue IV heparin for an additional 48 hours. Repeat troponin. Medical management recommended as patient weight is prohibitive for any cardiac procedures. (4) Left bundle branch block: Chronic finding. (5) Hyperkalemia: Add IV Lasix. Repeat BMP this afternoon. Discontinue TJ inhibitor if potassium has not improved. (6) Morbid obesity: (7) Acute respiratory failure with hypoxia: History of Present Illness Reason for Consultation: Elevated troponin Requesting Physician: Dr. Tanmay Tavares Attending Physician: Vikki Hatfield MD History of Present Illness 62-year-old patient admitted with change in mental status and respiratory distress. Initially intubated. Left lung field noted to be nadia out. Mucus plugging discovered on bronchoscopy. Patient subsequently extubated to CPAP. Currently awake. There were concerns regarding possible pulmonary embolus, however, patient could not fit into the CT scanner. He has been empirically treated with IV heparin since admission. No signs/symptoms of GI/ blood loss. Hypertensive with systolic blood pressures as high as 200 mmHg since admission. Denies chest pain or shortness of breath. Admits to noncompliance with medications over the past few weeks. Carries history of chronic diastolic heart failure, hypertension, morbid obesity with SAFIA, and obesity hypoventilation syndrome. Allergies Allergy/AdvReac Type Severity Reaction Status Date / Time No Known Allergies Allergy Verified 06/02/16 11:34 Home Medications Home Medications Medication Instructions Recorded Confirmed Type amlodipine 2.5 mg PO DAILY 10/24/18 10/24/18 History aspirin 325 mg PO DAILY 10/24/18 10/24/18 History atorvastatin 10 mg PO DAILY 10/24/18 10/24/18 History fluticasone propionate 2 spray INTRANASAL DAILY 10/24/18 10/24/18 History furosemide 40 mg PO BID 10/24/18 10/24/18 History gabapentin 100 mg PO UD 10/24/18 10/24/18 History insulin NPH and regular human 65 unit SUBCUT PM 10/24/18 10/24/18 History [Novolin 70/30 U-100 Insulin] insulin NPH and regular human 95 unit SUBCUT QAM 10/24/18 10/24/18 History [Novolin 70/30 U-100 Insulin] levothyroxine 25 mcg PO DAILY 10/24/18 10/24/18 History levothyroxine 200 mcg PO DAILY 10/24/18 10/24/18 History metoprolol succinate 25 mg PO DAILY 10/24/18 10/24/18 History omeprazole magnesium [Prilosec OTC] 10 mg PO DAILY 10/24/18 10/24/18 History Patient History Medical History Diabetes (Chronic) Hypertension (Chronic) Hypothyroidism (Chronic) COPD (chronic obstructive pulmonary disease) (Chronic) Chronic diastolic heart failure (Chronic) Morbid obesity (Chronic) SAFIA (obstructive sleep apnea) (Chronic) Obesity hypoventilation syndrome (Chronic) Tobacco abuse (Chronic) Graves disease Surgical History S/P correction of deviated nasal septum Family History Mother Diabetes Hypertension Brother , dies at 44 yo from [place] Heart disease Social History Preferred Language: Omani Communication Ability: Unable Audit Intern Required: No Beliefs That Will Affect Care: None marital status: single Current Living Situation: Family current occupational status: unemployed Other Information That Helps Us Care for You: No Feels Safe at Home: Yes Smoking Status: Current every day smoker Hx Alcohol Use: No Hx Substance Use: No Review of Systems Review of Systems: All systems reviewed & are unremarkable except as noted in HPI & below Physical Exam Physical Exam: General: NAD, AAO x3, chronically ill, morbid obesity. HEENT: Wearing CPAP, normocephalic. Atraumatic. Conjunctiva pink, no scleral icterus. Neck: No carotid bruits, the carotid upstrokes are brisk. No JVD. No HJR Heart: Regular normal S-1 and S-2 no S-3 or S-4 gallop. No murmurs or rub appreciated. PMI is not displaced. No RV heave. Lungs: Clear bilateral without rales , rhonchi, or wheeze. Abdomen: 2+ pitting edema of the pannus. Normal bowel sounds. Soft. Nontender. No masses or organomegaly. No abdominal bruits. Extremities: 2+ pitting edema pulses: radial=2/4, Dorsalis pedis =2/4, posterior tibial=2/4. Neuro: Cranial nerves grossly intact. No focal motor deficit. Results & Data Vital Signs (Past 12 Hours) Vital Signs Temp Pulse Resp BP Pulse Ox 10/26/18 12:00 65 22 182/90 H 97 10/26/18 11:01 59 L 202/83 H 99 10/26/18 11:00 36.5 C 55 L 20 202/83 H 98 10/26/18 10:00 65 20 189/95 H 95 10/26/18 09:00 62 20 176/76 H 100 10/26/18 08:25 84 21 96 10/26/18 08:00 78 16 184/76 H 94 10/26/18 07:00 36.4 C L 68 24 180/73 H 98 10/26/18 06:00 61 96 10/26/18 05:00 68 95 10/26/18 04:54 66 14 94 10/26/18 04:00 37 C 63 96 10/26/18 03:00 69 97 10/26/18 02:00 75 92 10/26/18 01:47 64 16 92 10/26/18 01:00 75 92 10/26/18 00:57 69 93 Laboratory Results Laboratory Results - last 24 hr 10/25/18 10/25/18 10/25/18 14:36 14:36 17:34 WBC RBC Hgb Hct MCV MCH MCHC RDW Std Deviation RDW Coeff of Neena Plt Count MPV Immature Gran % (Auto) Neut % (Auto) Lymph % (Auto) Crane % (Auto) Eos % (Auto) Baso % (Auto) Immature Gran # (Auto) Neut # (Auto) Lymph # (Auto) Crane # (Auto) Eos # (Auto) Baso # (Auto) APTT 103.9 H* PTT Ratio 3.8 Sodium Potassium Chloride Carbon Dioxide Anion Gap BUN Creatinine Est Cr Clr Drug Dosing Est GFR ( Amer) Est GFR (Non-Af Amer) BUN/Creatinine Ratio Glucose POC Glucose 268 H Calcium Phosphorus Magnesium Total Bilirubin Direct Bilirubin AST ALT Alkaline Phosphatase Troponin I 0.290 H* Total Protein Albumin 10/25/18 10/25/18 10/25/18 21:04 21:04 21:08 WBC RBC Hgb Hct MCV MCH MCHC RDW Std Deviation RDW Coeff of Neena Plt Count MPV Immature Gran % (Auto) Neut % (Auto) Lymph % (Auto) Crane % (Auto) Eos % (Auto) Baso % (Auto) Immature Gran # (Auto) Neut # (Auto) Lymph # (Auto) Crane # (Auto) Eos # (Auto) Baso # (Auto) APTT 76.3 H* PTT Ratio 2.8 Sodium Potassium Chloride Carbon Dioxide Anion Gap BUN Creatinine Est Cr Clr Drug Dosing Est GFR ( Amer) Est GFR (Non-Af Amer) BUN/Creatinine Ratio Glucose POC Glucose 248 H Calcium Phosphorus Magnesium Total Bilirubin Direct Bilirubin AST ALT Alkaline Phosphatase Troponin I 0.468 H* Total Protein Albumin 10/26/18 10/26/18 10/26/18 00:15 04:02 04:02 WBC 11.51 H RBC 3.99 L Hgb 12.9 L Hct 39.3 L MCV 98.5 MCH 32.3 MCHC 32.8 RDW Std Deviation 54.3 H RDW Coeff of Neena 15.1 H Plt Count 154 MPV 9.5 Immature Gran % (Auto) 0.5 Neut % (Auto) 88.2 Lymph % (Auto) 6.2 Crane % (Auto) 5.0 Eos % (Auto) 0.0 Baso % (Auto) 0.1 Immature Gran # (Auto) 0.06 H Neut # (Auto) 10.15 H Lymph # (Auto) 0.71 L Crane # (Auto) 0.58 Eos # (Auto) 0.00 Baso # (Auto) 0.01 APTT PTT Ratio Sodium 136 Potassium 5.6 H Chloride 99 Carbon Dioxide 36 H Anion Gap 1.0 L BUN 29 H Creatinine 1.12 Est Cr Clr Drug Dosing 120.1 Est GFR ( Amer) 80.0 Est GFR (Non-Af Amer) 69.0 BUN/Creatinine Ratio 25.8 H Glucose 251 H POC Glucose 243 H Calcium 8.1 L Phosphorus 3.8 D Magnesium 2.2 Total Bilirubin 0.5 Direct Bilirubin 0.2 AST 65 H ALT 46 Alkaline Phosphatase 157 H Troponin I Total Protein 6.5 Albumin 2.3 L 10/26/18 10/26/18 10/26/18 04:02 04:08 06:58 WBC RBC Hgb Hct MCV MCH MCHC RDW Std Deviation RDW Coeff of Neena Plt Count MPV Immature Gran % (Auto) Neut % (Auto) Lymph % (Auto) Crane % (Auto) Eos % (Auto) Baso % (Auto) Immature Gran # (Auto) Neut # (Auto) Lymph # (Auto) Crane # (Auto) Eos # (Auto) Baso # (Auto) APTT 68.0 H* PTT Ratio 2.5 Sodium Potassium Chloride Carbon Dioxide Anion Gap BUN Creatinine Est Cr Clr Drug Dosing Est GFR ( Amer) Est GFR (Non-Af Amer) BUN/Creatinine Ratio Glucose POC Glucose 257 H Calcium Phosphorus Magnesium Total Bilirubin Direct Bilirubin AST ALT Alkaline Phosphatase Troponin I 3.730 H* Total Protein Albumin 10/26/18 10/26/18 10/26/18 07:55 10:42 11:05 WBC RBC Hgb Hct MCV MCH MCHC RDW Std Deviation RDW Coeff of Neena Plt Count MPV Immature Gran % (Auto) Neut % (Auto) Lymph % (Auto) Crane % (Auto) Eos % (Auto) Baso % (Auto) Immature Gran # (Auto) Neut # (Auto) Lymph # (Auto) Crane # (Auto) Eos # (Auto) Baso # (Auto) APTT 60.2 H* PTT Ratio 2.2 Sodium Potassium Chloride Carbon Dioxide Anion Gap BUN Creatinine Est Cr Clr Drug Dosing Est GFR ( Amer) Est GFR (Non-Af Amer) BUN/Creatinine Ratio Glucose POC Glucose 237 H 248 H Calcium Phosphorus Magnesium Total Bilirubin Direct Bilirubin AST ALT Alkaline Phosphatase Troponin I Total Protein Albumin Medications Administered Medications amlodipine 2.5 mg PO DAILY 10/24/18 [History Confirmed 10/24/18] aspirin 325 mg PO DAILY 10/24/18 [History Confirmed 10/24/18] atorvastatin 10 mg PO DAILY 10/24/18 [History Confirmed 10/24/18] fluticasone propionate 2 spray INTRANASAL DAILY 10/24/18 [History Confirmed 10/24/18] furosemide 40 mg PO BID 10/24/18 [History Confirmed 10/24/18] gabapentin 100 mg PO UD 10/24/18 [History Confirmed 10/24/18] insulin NPH and regular human [Novolin 70/30 U-100 Insulin] 65 unit SUBCUT PM 10/24/18 [History Confirmed 10/24/18] insulin NPH and regular human [Novolin 70/30 U-100 Insulin] 95 unit SUBCUT QAM 10/24/18 [History Confirmed 10/24/18] levothyroxine 25 mcg PO DAILY 10/24/18 [History Confirmed 10/24/18] levothyroxine 200 mcg PO DAILY 10/24/18 [History Confirmed 10/24/18] metoprolol succinate 25 mg PO DAILY 10/24/18 [History Confirmed 10/24/18] omeprazole magnesium [Prilosec OTC] 10 mg PO DAILY 10/24/18 [History Confirmed 10/24/18] Home Medications Albuterol (Duoneb) 3 ml INH Q4H PRN PRN Reason: Dyspnea Stop: 11/23/18 18:03 Amlodipine Besylate (Norvasc) 10 mg PO QAM [facility] Stop: 11/26/18 08:59 Aspirin (Aspirin Chew) 324 mg PO DAILY [facility] Stop: 11/25/18 08:59 Last Admin: 10/26/18 07:49 Dose: 324 mg Documented by: Atorvastatin Calcium (Lipitor) 10 mg PO DAILY [facility] Stop: 11/24/18 08:59 Last Admin: 10/26/18 07:50 Dose: 10 mg Documented by: Dextrose (Dextrose 50%) 25 - 50 ml IV UD PRN; Protocol PRN Reason: Hypoglycemia Protocol Stop: 11/23/18 23:16 Docusate Sodium (Colace) 100 mg PO BID PRN PRN Reason: Constipation Stop: 11/23/18 18:03 Fentanyl Citrate (Fentanyl Citrate) 50 mcg IV Q2H PRN PRN Reason: Moderate Pain (4,5,6) Stop: 11/07/18 15:59 Last Admin: 10/25/18 15:16 Dose: 50 mcg Documented by: Fentanyl Citrate (Fentanyl Citrate) 100 mcg IV Q2H PRN PRN Reason: Severe Pain (7,8,9,10) Stop: 11/07/18 15:59 Furosemide (Lasix) 40 mg PO BID17 [facility] Stop: 11/25/18 16:59 Gabapentin (Neurontin) 300 mg PO HS [facility] Stop: 11/24/18 20:59 Last Admin: 10/25/18 21:47 Dose: 300 mg Documented by: Gabapentin (Neurontin) 100 mg PO BID@0800,1200 [facility] Stop: 11/24/18 07:59 Last Admin: 10/26/18 11:00 Dose: 100 mg Documented by: Glucagon (Glucagen) 1 mg SQ UD PRN; Protocol PRN Reason: Hypoglycemia Protocol Stop: 11/23/18 23:16 Glucose (Dex4 Glucose) 4 - 8 tabs PO UD PRN; Protocol PRN Reason: Hypoglycemia Protocol Stop: 11/23/18 23:16 Glucose (Glucose 40%) 15 - 30 gm PO UD PRN; Protocol PRN Reason: Hypoglycemia Protocol Stop: 11/23/18 23:16 Famotidine 20 mg/ Syringe 5 mls @ 2.5 mls/min IV Q12H [facility] Stop: 11/23/18 20:59 Last Admin: 10/26/18 07:49 Dose: 2.5 mls/min Documented by: Heparin Sodium/Dextrose (Heparin Sodium/Dextrose) 25,000 units in 500 mls @ 26 mls/hr IV .[id number] [facility]; Protocol Stop: 11/23/18 20:59 Last Titration: 10/26/18 11:45 Dose: 1,300 units/hr, 26 mls/hr Documented by: Ceftriaxone Sodium 2,000 mg/ (Dextrose) 70 mls @ 100 mls/hr IV Q24H [facility]; Protocol Stop: 11/01/18 13:59 Last Infusion: 10/25/18 15:04 Dose: Infused Documented by: Insulin Aspart (Novolog Flexpen) 0 units SC Q4 [facility] Stop: 11/24/18 00:00 Last Admin: 10/26/18 11:06 Dose: 7 units Documented by: Insulin Glargine (Lantus Solostar Pen) 0 units SC ONE; Protocol Stop: 10/26/18 21:01 Levothyroxine Sodium (Synthroid) 50 mcg PO DAILYBB [facility] Stop: 11/24/18 06:29 Last Admin: 10/26/18 06:20 Dose: 50 mcg Documented by: Levothyroxine Sodium (Synthroid) 200 mcg PO DAILYBB [facility] Stop: 11/24/18 06:29 Last Admin: 10/26/18 06:20 Dose: 200 mcg Documented by: Lisinopril (Zestril) 20 mg PO QAM [facility] Stop: 11/25/18 12:29 Metoprolol Tartrate (Lopressor) 12.5 mg PO BID [facility] Stop: 11/25/18 08:59 Last Admin: 10/26/18 09:06 Dose: 12.5 mg Documented by: Miconazole Nitrate (Desenex) 1 appln EXT BID PRN PRN Reason: AFFECTED SKIN FOLDS Stop: 11/24/18 15:55 Midazolam HCl (Versed) 1 mg IV Q2H PRN PRN Reason: agitation/anxiety Stop: 11/24/18 13:13 Midazolam HCl (Versed) 2 mg IV Q2H PRN PRN Reason: agitation/anxiety Stop: 11/24/18 13:13 Last Admin: 10/25/18 14:22 Dose: 2 mg Documented by: Miscellaneous (Icu Protocol For Hyperglycemia) 1 ea N/A PRN PRN; Protocol PRN Reason: Hyperglycemia Protocol Stop: 10/26/18 18:03 Miscellaneous (Carbohydrates For Hypoglycemia) 15 - 30 gm PO UD PRN PRN Reason: Hypoglycemia Treatment Stop: 11/23/18 23:16 Miscellaneous (Remove Nicoderm Patch) 1 ea N/A HS [facility] Stop: 11/24/18 20:59 Last Admin: 10/25/18 21:47 Dose: 1 ea Documented by: Miscellaneous Information (Consult Glycemic Management Pharmacy) 1 ea N/A UD PRN; Protocol PRN Reason: Consult Stop: 11/23/18 23:35 [facility] Cq) [facility] [place] Stop: 11/24/18 17:29 Last Admin: 10/26/18 07:50 Dose: 7 mg Documented by: Nitroglycerin (Nitro-Bid 2%) 1 inch EXT Q6H [facility] Stop: 11/25/18 12:44 Nitroglycerin (Nitro-Bid 2%) 0.5 inch EXT Q6H [facility] Stop: 11/25/18 12:44 Polyethylene Glycol (Miralax Powder Packet) 17 gm PO DAILY PRN PRN Reason: Constipation Prazosin HCl (Prazosin Hcl) 1 mg PO Q8 [facility] Stop: 11/25/18 13:59 ECG Findings: + LBBB
[2018-10-26] MEDS: PRAZOSIN HCL 1 MG CAP PO SCH ×2 (13:26→20:43)
[2018-10-26] MEDS: LISINOPRIL 20 MG TAB PO SCH (13:26)
[2018-10-26] MEDS: cefTRIAXone SODIUM 2,000 MG in DEXTROSE 5% 50 ML IV SCH (13:28)
[2018-10-26] MEDS: NITROGLYCERIN 2% OINTMENT 30GM TUBE EXT SCH ×2 (13:28→20:45)
[2018-10-26] MEDS ORDERED: PRAZOSIN HCL 1 MG CAP PO SCH (14:00)
--- NOTE | 2018-10-26 16:39 | Hospitalist Progress Note ---
Date of Service October 26, 2018 Assessment & Plan (1) Acute respiratory failure with hypoxia: (2) Pneumonia: (3) COPD (chronic obstructive pulmonary disease): (4) SAFIA (obstructive sleep apnea): Present on admission with respiratory distress CXR on admission showed near complete opacification left hemithorax. ABG on admission showed pH 7.2 and PCO2 87 was intubated on vent support S/P extubated on 10/25 Continue Rocephin IV, will change to Augmentin to complete 7 days course Continue CPap/Bipap when sleeping or napping Will discuss with case management to help him to gain his CPAP on discharge Will transfer to telemetry (5) Elevated troponin: NSTEMI Possible due to demand ischemia Denies any chest pain Troponin peaked to 3.7 Cardiology consulted recommended to continue heparin drip for another 48hr Starting on metoprolol and titrate Continue trend troponin Continue statin and aspirin (6) Diabetes: Hba1c 7.3 on 10/25/18 Pharmacy on board for glycemic management Continue monitor BS (7) Hypertension: BP elevated Amlodipine increased to 10mg daily Metoprolol 12.5 mg added and will titrate Consider to add topical nitrate if BP remain elevate Monitor BP (8) Acute on chronic diastolic (congestive) heart failure: CXR on admission showed right lung interstitial edema pattern and right pleural effusion Not complaint with lasix outpatient Has been on lasix 40mg BID Cardiology on board recommended IV Lasix Will change oral lasix to IV lasix starting tonight dose Monitor BMP while on IV lasix (9) Hypothyroidism: Cont home dose Synthroid. (10) Morbid obesity: (11) Hyperkalemia: K on admission 6 K today 5.6 Repeat BMP today Consider to D/C lisinopril if K elevates (12) Altered mental status: Mostly due to elevated CO2 CT head showed age indeterminate lacunar infarct back to baseline (13) Lacunar infarction: Age indeterminate on CT. MRI and further CTs cannot be ordered as patient body habitus is too large. (14) Left bundle branch block: chronic. DM type 2 Hba1c 7.3 Pharmacy on board for glycemic management Monitor BS (15) DVT prophylaxis: Heparin drip GI prophylaxis with famotidine. Full Code Disposition Will transfer to Tele Subjective Pt was seen and examined Lying in bed with no distress Pt said that he feels much better He said that he slept well last night He denies any chest pain, palpitation and SOB Physical Exam Physical Exam: General- No acute distress Head- atraumatic Eyes- PERRL, EOMI, ENT- oropharynx clear Neck- supple, no JVD Lungs- diminished BS and rhonchi Heart- regular rhythm; no murmur Abdomen- normal bowel sounds, soft, nontender, obese Extremities- no calf tenderness Neuro- alert, oriented x 3; PERRL, EOMI; no facial palsy; no dysarthria Skin- warm & dry Results & Data Vital Signs (Past 12 Hours) Vital Signs Temp Pulse Resp BP Pulse Ox 10/26/18 16:00 36.8 C 64 20 96 10/26/18 15:00 67 20 151/56 H 92 10/26/18 14:00 53 L 20 191/100 H 98 10/26/18 13:00 61 20 199/82 H 98 10/26/18 12:00 65 22 182/90 H 97 10/26/18 11:01 59 L 202/83 H 99 10/26/18 11:00 36.5 C 55 L 20 202/83 H 98 10/26/18 10:00 65 20 189/95 H 95 10/26/18 09:00 62 20 176/76 H 100 10/26/18 08:25 84 21 96 10/26/18 08:00 78 16 184/76 H 94 10/26/18 07:00 36.4 C L 68 24 180/73 H 98 10/26/18 06:00 61 96 10/26/18 05:00 68 95 10/26/18 04:54 66 14 94 (1) Pneumonia Laterality: left Lung location: unspecified part of lung Pneumonia type: due to unspecified organism Qualified Code(s): J18.9 - Pneumonia, unspecified organism
[2018-10-26] MEDS ORDERED: FUROSEMIDE 40 MG TAB PO SCH (17:00)
[2018-10-26] MEDS ORDERED: FUROSEMIDE 40 MG in SYRINGE 0 ML IV ONE ×2 (20:30→21:30)
[2018-10-26 21:10] LABS: BUN Creatinine Ratio 32.6 (10-20); Calcium 8.3 mg/dl (8.5-10.1); Creatinine Clr Calc Pharmacy 124.5 ml/min; Est GFR (African American) 82.7; Est GFR (Non-African American) 71.4; Potassium 5.9 mmol/L (3.5-5.1); Troponin I 5.62 ng/ml (0-0.045)
[2018-10-26] MEDS ORDERED: CALCIUM GLUCONATE 10% 1,000 MG in 0.9 % SODIUM CHLORIDE 100 ML IV STA (21:32)
[2018-10-26] MEDS ORDERED: DEXTROSE 50% 50 ML SYRINGE IV ONE (21:32)
[2018-10-26] MEDS ORDERED: INSULIN HUMAN REGULAR PER UNIT 10 UNITS in SYRINGE 9.9 ML IV STA (21:32)
[2018-10-27] MEDS: INSULIN ASPART 100 UNITS/ML 3 ML PEN SC SCH ×2 (00:14→04:17)
[2018-10-27] MEDS: NITROGLYCERIN 2% OINTMENT 30GM TUBE EXT SCH ×4 (01:31→21:08)
--- NOTE | 2018-10-27 04:12 | Hospitalist Progress Note ---
Date of Service October 27, 2018 Subjective Overnight developments: Made aware by RN of SBP 170s around 8 PM last night. Patient comfortable as per RN. Serum potassium from 8:30 PM blood draw 5.9 from 5.6 in a.m. AP Elevated BP Worsening hyperkalemia IV Lasix 1 dose Hold lisinopril Regular insulin IV to effect redistribution. Low potassium diet. . Will relay to AM provider. Results & Data Vital Signs (Past 12 Hours) Vital Signs Temp Pulse Pulse Resp BP BP Pulse Ox 10/27/18 04:06 36.5 C 54 L 22 151/52 H 94 10/27/18 02:21 58 L 20 96 10/27/18 00:00 58 L 10/26/18 23:50 36.6 C 61 20 154/66 H 95 10/26/18 22:07 58 L 18 96 10/26/18 20:08 36.6 C 62 18 173/64 H 96 10/26/18 20:07 96 10/26/18 19:12 63 21 96 10/26/18 17:00 60 20 94
[2018-10-27] MEDS: LEVOTHYROXINE SODIUM 200 MCG TABLET PO SCH (05:14)
[2018-10-27] MEDS: LEVOTHYROXINE SODIUM 50 MCG TABLET PO SCH (05:14)
[2018-10-27] MEDS: PRAZOSIN HCL 1 MG CAP PO SCH ×3 (05:15→21:32)
[2018-10-27 07:49] LABS: Basophils # (auto) 0.02 K/uL (0-0.2); Basophils % (auto) 0.2 %; Eosinophils # (auto) 0.02 K/uL (0-0.5); Eosinophils % (auto) 0.2 %; Hemoglobin 11.9 g/dL (14.0-18.0); Immature Granulocytes # (auto) 0.03 K/uL (0.00-0.02); Immature Granulocytes % (auto) 0.3 %; Lymphocytes # (auto) 1.71 K/uL (1.2-3.4); Mean Corpuscular Hgb Conc 32.2 g/dL (32-36); Mean Corpuscular Volume 98.1 fL (80-100); Mean Platelet Volume 9.6 fL (7.4-10.4); Monocytes # (auto) 0.76 K/uL (0.11-0.59); Neutrophils # (auto) 6.97 K/uL (1.4-6.5); Neutrophils % (auto) 73.3 %; Platelet Count 142 K/uL (130-400); RDW Coefficient of Variation 15.1 % (11.5-14.5); RDW Standard Deviation 53.8 fL (36.4-46.3); Red Blood Count 3.77 M/uL (4.7-6.1); White Blood Count 9.51 K/uL (4.8-10.8)
[2018-10-27 08:22] LABS: Albumin Level 2.1 gm/dl (3.4-5.0); BUN Creatinine Ratio 34.7 (10-20); Bilirubin,Total 0.4 mg/dl (0.2-1); Calcium 8.3 mg/dl (8.5-10.1); Phosphorus 3.5 mg/dl (2.5-4.9); Total Protein 6.2 gm/dl (6.4-8.2)
[2018-10-27 08:23] LABS: Creatinine Clr Calc Pharmacy 117.9 ml/min; Est GFR (African American) 80.9; Est GFR (Non-African American) 69.8
[2018-10-27 08:27] LABS: Potassium 4.9 mmol/L (3.5-5.1)
[2018-10-27 08:40] LABS: Bilirubin Direct 0.2 mg/dl (0-0.2); Magnesium 2.4 mg/dl (1.8-2.4); Troponin I 4.53 ng/ml (0-0.045)
[2018-10-27 08:44] LABS: Partial Thromboplastin Time 54.6 Seconds (21.0-31.0)
[2018-10-27] MEDS: INSULIN ASPART 100 UNITS/ML 3 ML PEN SQ SCH ×4 (09:14→21:31)
[2018-10-27] MEDS: ATORVASTATIN 10 MG TAB PO SCH (09:15)
[2018-10-27] MEDS: AMLODIPINE BESYLATE 5 MG TAB PO SCH (09:15)
[2018-10-27] MEDS: METOPROLOL TARTRATE 25 MG TAB PO SCH ×2 (09:15→21:29)
[2018-10-27] MEDS ORDERED: FUROSEMIDE 40 MG/4 ML VIAL IV SCH (09:15)
[2018-10-27] MEDS: ASPIRIN 81 MG CHEW PO SCH (09:16)
[2018-10-27] MEDS: NICOTINE 7 MG/24 HR TDSY TD SCH (09:17)
[2018-10-27] MEDS: INSULIN GLARGINE SOLOSTAR 100 UNITS/ML 3 ML PEN SC SCH (09:18)
[2018-10-27] MEDS: FAMOTIDINE 20 MG in SYRINGE 3 ML IV SCH (09:20)
--- NOTE | 2018-10-27 09:31 | Cardiology Progress Note ---
Date of Service October 27, 2018 Assessment & Plan (1) Acute on chronic diastolic (congestive) heart failure: Recommend cautious IV diuretic therapy, Lasix 40 mg twice daily. Monitor closely for signs symptoms of recurrent CO2 retention. He will require significant diuresis. Heart failure likely precipitated by noncompliance with diuretic therapy in the outpatient setting. Maintain negative fluid balance. Repeat basic metabolic panel in a.m. Consider addition of Aldactone pending clinical course and follow-up lab testing. (2) Hypertensive urgency: Blood pressure improving with topical nitrates and IV diuretic therapy. Continue to monitor. Continue beta-kate as previously ordered. (3) Elevated troponin I level: Troponin trending downward. Suspect type II event related to acute hypoxic respiratory failure in the setting of mucous plugging and acute decompensated diastolic heart failure. Continue IV heparin for an additional 48 hours. Continue aspirin and statin therapy as previously ordered. (4) Left bundle branch block: Chronic finding. (5) Hyperkalemia: Resolved. Monitor. (6) Morbid obesity: (7) Acute respiratory failure with hypoxia: Subjective Patient seen and examined at the bedside. Awake on BiPAP. Denies chest pain or shortness of breath. Edema unchanged. Fluid balance negative approximately 1200 cc overnight. He received 1 dose of IV Lasix last evening. Serum potassium level now within normal range. Troponin peaked at 5.6 and trending downward. ECG nondiagnostic due to underlying left bundle branch block. No dysrhythmias on telemetry. No issues reported by nursing overnight. Review of Systems Review of Systems: All systems reviewed & are unremarkable except as noted in HPI & below Physical Exam Physical Exam: General: NAD, AAO x3, chronically ill, morbid obesity. HEENT: Wearing CPAP, normocephalic. Atraumatic. Conjunctiva pink, no scleral icterus. Neck: No carotid bruits, the carotid upstrokes are brisk. No JVD. No HJR Heart: Regular normal S-1 and S-2 no S-3 or S-4 gallop. No murmurs or rub appreciated. PMI is not displaced. No RV heave. Lungs: Clear bilateral without rales , rhonchi, or wheeze. Abdomen: 2+ pitting edema of the pannus. Normal bowel sounds. Soft. Nontender. No masses or organomegaly. No abdominal bruits. Extremities: 2+ pitting edema pulses: radial=2/4, Dorsalis pedis =2/4, posterior tibial=2/4. Neuro: Cranial nerves grossly intact. No focal motor deficit. Results & Data Vital Signs (Past 12 Hours) Vital Signs Temp Pulse Pulse Resp BP Pulse Ox 10/27/18 07:32 56 L 15 94 10/27/18 06:42 36.5 C 56 L 22 152/51 H 94 10/27/18 05:19 66 16 95 10/27/18 04:06 36.5 C 54 L 22 151/52 H 94 10/27/18 02:21 58 L 20 96 10/27/18 00:00 58 L 10/26/18 23:50 36.6 C 61 20 154/66 H 95 10/26/18 22:07 58 L 18 96 Laboratory Results Laboratory Results - last 24 hr 10/26/18 10/26/18 10/26/18 10:42 11:05 16:16 WBC RBC Hgb Hct MCV MCH MCHC RDW Std Deviation RDW Coeff of Neena Plt Count MPV Immature Gran % (Auto) Neut % (Auto) Lymph % (Auto) Knox % (Auto) Eos % (Auto) Baso % (Auto) Immature Gran # (Auto) Neut # (Auto) Lymph # (Auto) Knox # (Auto) Eos # (Auto) Baso # (Auto) APTT 60.2 H* PTT Ratio 2.2 Sodium Potassium Chloride Carbon Dioxide Anion Gap BUN Creatinine Est Cr Clr Drug Dosing Est GFR ( Amer) Est GFR (Non-Af Amer) BUN/Creatinine Ratio Glucose POC Glucose 248 H 241 H Calcium Phosphorus Magnesium Total Bilirubin Direct Bilirubin AST ALT Alkaline Phosphatase Total Creatine Kinase Troponin I Total Protein Albumin Specimen Hemolysis 10/26/18 10/26/18 10/26/18 20:27 20:33 23:59 WBC RBC Hgb Hct MCV MCH MCHC RDW Std Deviation RDW Coeff of Neena Plt Count MPV Immature Gran % (Auto) Neut % (Auto) Lymph % (Auto) Knox % (Auto) Eos % (Auto) Baso % (Auto) Immature Gran # (Auto) Neut # (Auto) Lymph # (Auto) Knox # (Auto) Eos # (Auto) Baso # (Auto) APTT PTT Ratio Sodium 136 Potassium 5.9 H Chloride 101 Carbon Dioxide 32 Anion Gap 3.0 BUN 36 H Creatinine 1.09 Est Cr Clr Drug Dosing 124.5 Est GFR ( Amer) 82.7 Est GFR (Non-Af Amer) 71.4 BUN/Creatinine Ratio 32.6 H Glucose 242 H POC Glucose 254 H 204 H Calcium 8.3 L Phosphorus Magnesium Total Bilirubin Direct Bilirubin AST ALT Alkaline Phosphatase Total Creatine Kinase Troponin I 5.620 H* Total Protein Albumin Specimen Hemolysis 10/27/18 10/27/18 10/27/18 00:21 04:04 07:26 WBC 9.51 RBC 3.77 L Hgb 11.9 L Hct 37.0 L MCV 98.1 MCH 31.6 MCHC 32.2 RDW Std Deviation 53.8 H RDW Coeff of Neena 15.1 H Plt Count 142 MPV 9.6 Immature Gran % (Auto) 0.3 Neut % (Auto) 73.3 Lymph % (Auto) 18.0 Knox % (Auto) 8.0 Eos % (Auto) 0.2 Baso % (Auto) 0.2 Immature Gran # (Auto) 0.03 H Neut # (Auto) 6.97 H Lymph # (Auto) 1.71 Knox # (Auto) 0.76 H Eos # (Auto) 0.02 Baso # (Auto) 0.02 APTT PTT Ratio Sodium Potassium 5.5 H Chloride Carbon Dioxide Anion Gap BUN Creatinine Est Cr Clr Drug Dosing Est GFR ( Amer) Est GFR (Non-Af Amer) BUN/Creatinine Ratio Glucose POC Glucose 184 H Calcium Phosphorus Magnesium Total Bilirubin Direct Bilirubin AST ALT Alkaline Phosphatase Total Creatine Kinase Troponin I Total Protein Albumin Specimen Hemolysis 10/27/18 10/27/18 10/27/18 07:26 07:26 07:26 WBC RBC Hgb Hct MCV MCH MCHC RDW Std Deviation RDW Coeff of Neena Plt Count MPV Immature Gran % (Auto) Neut % (Auto) Lymph % (Auto) Knox % (Auto) Eos % (Auto) Baso % (Auto) Immature Gran # (Auto) Neut # (Auto) Lymph # (Auto) Knox # (Auto) Eos # (Auto) Baso # (Auto) APTT 54.6 H* PTT Ratio 2.0 Sodium 138 Potassium 4.9 Chloride 101 Carbon Dioxide 37 H Anion Gap 1.0 L BUN 39 H Creatinine 1.11 Est Cr Clr Drug Dosing 117.9 Est GFR ( Amer) 80.9 Est GFR (Non-Af Amer) 69.8 BUN/Creatinine Ratio 34.7 H Glucose 178 H POC Glucose Calcium 8.3 L Phosphorus 3.5 Magnesium 2.4 Total Bilirubin 0.4 Direct Bilirubin 0.2 AST 61 H ALT 43 Alkaline Phosphatase 133 H Total Creatine Kinase 154 Troponin I 4.530 H* Total Protein 6.2 L Albumin 2.1 L Specimen Hemolysis 10/27/18 07:34 WBC RBC Hgb Hct MCV MCH MCHC RDW Std Deviation RDW Coeff of Neena Plt Count MPV Immature Gran % (Auto) Neut % (Auto) Lymph % (Auto) Knox % (Auto) Eos % (Auto) Baso % (Auto) Immature Gran # (Auto) Neut # (Auto) Lymph # (Auto) Knox # (Auto) Eos # (Auto) Baso # (Auto) APTT PTT Ratio Sodium Potassium Chloride Carbon Dioxide Anion Gap BUN Creatinine Est Cr Clr Drug Dosing Est GFR ( Amer) Est GFR (Non-Af Amer) BUN/Creatinine Ratio Glucose POC Glucose 175 H Calcium Phosphorus Magnesium Total Bilirubin Direct Bilirubin AST ALT Alkaline Phosphatase Total Creatine Kinase Troponin I Total Protein Albumin Specimen Hemolysis
--- NOTE | 2018-10-27 09:45 | Pharmacy Report ---
Pharmacy Glycemic Short Note 2 - Date of Service October 27, 2018 - Glycemic Short BSG Results (Last 24 hours): 10/26/18 10/26/18 10/26/18 11:05 16:16 20:27 Glucose 242 H POC Glucose 248 H 241 H 10/26/18 10/26/18 10/27/18 20:33 23:59 04:04 Glucose POC Glucose 254 H 204 H 184 H 10/27/18 10/27/18 07:26 07:34 Glucose 178 H POC Glucose 175 H OUTPATIENT ANTIDIABETIC REGIMEN: * 70/30 95 units QAM; 65 units QPM ASSESSMENT: 10/27 * BSGs elevated yesterday, increased lantus doses, received at total of 80 of lantus, 30 of correctional * Patient extubated and ordered a diet, current novolog parameters ~ weight based stress of 2, continue for now, will assess need for changes as patient starts diet * Fasting improved this morning with lantus increase and removal of steroids, slight increase this morning and scale for PM 10/26 * BSGs controlled until yesterday PM, elevated into 200s * Patient used 38 units of insulin, 20 units of lantus 18 of correctional * Patient's fasting elevated this AM 237; methylprednisolone is being discontinued today * Will increase lantus dose to 30 units this AM- this is still a reduction from home use (and between weight based stress of 1 and 2) however, with NPO status and steroid's being discontinued being conservative at this time. Scale for PM * Will tighten novolog parameters closer to weight based stress of 2. PLAN FOR INPATIENT GLYCEMIC CONTROL: * Hold outpatient oral diabetes medications * Basal insulin (max total ~10% increase) * Lantus 45 units this AM * Scale for PM * 35 units for BSG <140 * 40 units for BSG 140-180 * 45 units for BSG >180 * Bolus insulin- no change * NovoLog per scale ACHS or Q6hrs while NPO * Goal Range: Low 140 mg/dL - High 180 mg/dL * Correction Factor: 10 mg/dL/unit * Nutritional / Prandial insulin per carb ratio of 1 unit per 5 grams CHO consumed PLAN FOR DISCHARGE: * to be determined
[2018-10-27] MEDS: GABAPENTIN 250 MG/5 ML 470 ML BTL PO SCH (10:02)
[2018-10-27] MEDS: FUROSEMIDE 40 MG in SYRINGE 0 ML IV SCH ×2 (10:03→17:04)
[2018-10-27] MEDS: GABAPENTIN 100 MG CAP PO SCH (12:22)
--- NOTE | 2018-10-27 12:45 | Hospitalist Progress Note ---
Date of Service October 27, 2018 Assessment & Plan (1) Acute respiratory failure with hypoxia: (2) Pneumonia: (3) COPD (chronic obstructive pulmonary disease): (4) SAFIA (obstructive sleep apnea): Present on admission with respiratory distress CXR on admission showed near complete opacification left hemithorax. ABG on admission showed pH 7.2 and PCO2 87 was intubated on vent support S/P extubated on 10/25 Continue Rocephin IV, will change to Augmentin to complete 7 days course Continue CPap/Bipap when sleeping or napping Will discuss with case management to help him to get CPAP on discharge Continue monitor in tele (5) Elevated troponin: Possible NSTEMI Vs demand ischemia Denies any chest pain Troponin peaked to 5.6, now trending down 4.5 Cardiology consulted recommended to continue heparin drip for another 48hr Continue metoprolol 12.5 BID Continue statin and aspirin Stable (6) Diabetes: Hba1c 7.3 on 10/25/18 Pharmacy on board for glycemic management Continue monitor BS (7) Hypertension: BP elevated Continue Amlodipine 10mg daily and Metoprolol 12.5 mg Continue topical nitrate q6h Lisinopril on hold due to elevate K Monitor BP (8) Acute on chronic diastolic (congestive) heart failure: CXR on admission showed right lung interstitial edema pattern and right pleural effusion Not compliant with lasix outpatient Cardiology on board recommended IV Lasix Continue lasix IV 40mg BID Monitor I/O Monitor BMP while on IV lasix (9) Hypothyroidism: Cont home dose Synthroid. (10) Morbid obesity: (11) Hyperkalemia: K on admission 6 K was 5.9 last night then improved to 4.9 this morning Received calcium gluconate and insulin 10mg IV Lisinopril on hold due to elevate K Monitor BMP (12) Altered mental status: Mostly due to elevated CO2 CT head showed age indeterminate lacunar infarct back to baseline (13) Lacunar infarction: Age indeterminate on CT. MRI and further CTs cannot be ordered as patient body habitus is too large. (14) Left bundle branch block: chronic. DM type 2 Hba1c 7.3 Pharmacy on board for glycemic management Monitor BS (15) DVT prophylaxis: On Heparin drip GI prophylaxis on Pepcid Full Code Disposition Will discharge once medically stable Subjective Pt was seen and examined Lying in bed with no distress with BIPAP on Pt said that breathing improves He said that he slept good with no issues last night Denies any chest pain, palpitation, dizziness Physical Exam Physical Exam: General- No acute distress Head- atraumatic Eyes- PERRL, EOMI, ENT- oropharynx clear Neck- supple, no JVD Lungs- diminished BS, No wheezing Heart- regular rhythm; no murmur Abdomen- normal bowel sounds, soft, nontender, obese Extremities- no calf tenderness Neuro- alert, oriented x 3; PERRL, EOMI; no facial palsy; no dysarthria Skin- warm & dry Results & Data Vital Signs (Past 12 Hours) Vital Signs Temp Pulse Pulse Resp BP Pulse Ox 10/27/18 11:56 36.7 C 63 20 142/59 H 92 10/27/18 11:31 61 17 95 10/27/18 11:18 91 H 20 95 10/27/18 07:32 56 L 15 94 10/27/18 06:42 36.5 C 56 L 22 152/51 H 94 10/27/18 05:19 66 16 95 10/27/18 04:06 36.5 C 54 L 22 151/52 H 94 10/27/18 02:21 58 L 20 96 (1) Pneumonia Laterality: left Lung location: unspecified part of lung Pneumonia type: due to unspecified organism Qualified Code(s): J18.9 - Pneumonia, unspecified organism
[2018-10-27] MEDS: cefTRIAXone SODIUM 2,000 MG in DEXTROSE 5% 50 ML IV SCH (13:58)
[2018-10-27] MEDS: Heparin Adult STANDARD Wt-Based Dextrose 5% 25,000 units/500 mL IV SCH (13:58)
[2018-10-27] MEDS ORDERED: INSULIN GLARGINE SOLOSTAR 100 UNITS/ML 3 ML PEN SC ONE (21:00)
[2018-10-27] MEDS: FAMOTIDINE 20 MG TAB PO SCH (21:30)
[2018-10-27] MEDS: GABAPENTIN 300 MG CAP PO SCH (21:30)
[2018-10-28] MEDS: NITROGLYCERIN 2% OINTMENT 30GM TUBE EXT SCH ×4 (01:33→19:44)
[2018-10-28] MEDS: PRAZOSIN HCL 1 MG CAP PO SCH ×3 (05:12→21:08)
[2018-10-28] MEDS: LEVOTHYROXINE SODIUM 50 MCG TABLET PO SCH (05:14)
[2018-10-28] MEDS: LEVOTHYROXINE SODIUM 200 MCG TABLET PO SCH (05:14)
[2018-10-28 06:43] LABS: BUN Creatinine Ratio 38.4 (10-20); Calcium 8.3 mg/dl (8.5-10.1); Creatinine Clr Calc Pharmacy 123.3 ml/min; Est GFR (African American) 81.8; Est GFR (Non-African American) 70.6; Potassium 4.8 mmol/L (3.5-5.1)
[2018-10-28] MEDS: AMOXICILLIN/CLAVULANATE 875 MG TAB PO SCH ×2 (07:45→16:45)
[2018-10-28] MEDS: GABAPENTIN 100 MG CAP PO SCH ×2 (07:45→11:57)
[2018-10-28] MEDS: METOPROLOL TARTRATE 25 MG TAB PO SCH ×2 (07:45→21:09)
[2018-10-28] MEDS: Heparin Adult STANDARD Wt-Based Dextrose 5% 25,000 units/500 mL IV SCH (07:45)
[2018-10-28] MEDS: FAMOTIDINE 20 MG TAB PO SCH ×2 (07:45→21:08)
[2018-10-28] MEDS: AMLODIPINE BESYLATE 5 MG TAB PO SCH (07:45)
[2018-10-28] MEDS: ATORVASTATIN 10 MG TAB PO SCH (07:45)
[2018-10-28] MEDS: ASPIRIN 325 MG ECTAB PO SCH (07:46)
[2018-10-28] MEDS: INSULIN GLARGINE SOLOSTAR 100 UNITS/ML 3 ML PEN SC SCH (07:47)
[2018-10-28] MEDS: NICOTINE 7 MG/24 HR TDSY TD SCH (07:47)
[2018-10-28] MEDS: INSULIN ASPART 100 UNITS/ML 3 ML PEN SQ SCH ×4 (07:48→21:50)
[2018-10-28] MEDS: FUROSEMIDE 40 MG in SYRINGE 0 ML IV SCH (07:48)
[2018-10-28 08:20] LABS: Partial Thromboplastin Ratio 1.9
[2018-10-28 08:25] LABS: Partial Thromboplastin Time 50.3 Seconds (21.0-31.0)
--- NOTE | 2018-10-28 09:28 | Cardiology Progress Note ---
Date of Service October 28, 2018 Assessment & Plan (1) Acute respiratory failure with hypoxia and hypercapnia: Continue BiPAP and cautious diuresis. Recommend pulmonary consultation. (2) Acute on chronic diastolic (congestive) heart failure: Recommend cautious IV diuretic therapy. Consider increasing Lasix to 60 mg 3 times daily pending evaluation of urine output today. Recommend maintaining negative fluid balance. Will not add Aldactone at this time due to borderline elevated serum potassium levels. Monitor closely for signs symptoms of recurrent CO2 retention. Heart failure likely precipitated by noncompliance with diuretic therapy in the outpatient setting. Repeat basic metabolic panel in a.m. (3) Hypertensive urgency: Blood pressure improving with topical nitrates and IV diuretic therapy. Continue to monitor. Continue beta-kate as previously ordered. (4) Elevated troponin I level: Troponin trending downward. Suspect type II event related to acute hypoxic respiratory failure in the setting of mucous plugging, acute decompensated diastolic heart failure, and hypertensive urgency. Patient treated with IV heparin. Continue aspirin and statin therapy as previously ordered. (5) Left bundle branch block: Chronic finding. (6) Hyperkalemia: Resolved. Monitor. (7) Morbid obesity: Subjective Patient seen and examined at the bedside. More awake today. Reports feeling groggy. Denies chest pain or discomfort. BiPAP removed earlier today. Fluid balance mildly positive overnight. Creatinine remains stable. Family present at bedside. Edema unchanged. Remains in sinus rhythm on telemetry with left bundle branch block. Review of Systems Review of Systems: All systems reviewed & are unremarkable except as noted in HPI & below Physical Exam Physical Exam: General: NAD, AAO x3, chronically ill, morbid obesity. HEENT: Wearing CPAP, normocephalic. Atraumatic. Conjunctiva pink, no scleral icterus. Neck: No carotid bruits, the carotid upstrokes are brisk. No JVD. No HJR Heart: Regular normal S-1 and S-2 no S-3 or S-4 gallop. No murmurs or rub appreciated. PMI is not displaced. No RV heave. Lungs: Clear bilateral without rales , rhonchi, or wheeze. Abdomen: 2+ pitting edema of the pannus. Normal bowel sounds. Soft. Nontender. No masses or organomegaly. No abdominal bruits. Extremities: 2+ pitting edema pulses: radial=2/4, Dorsalis pedis =2/4, posterior tibial=2/4. Neuro: Cranial nerves grossly intact. No focal motor deficit. Results & Data Vital Signs (Past 12 Hours) Vital Signs Temp Pulse Pulse Resp BP BP Pulse Ox 10/28/18 07:00 36.4 C L 62 17 126/57 L 94 10/28/18 04:00 36.5 C 61 20 154/66 H 94 10/28/18 03:28 65 17 98 10/28/18 00:00 68 10/27/18 22:51 37.0 C 60 17 135/62 97 10/27/18 22:01 68 18 97 Laboratory Results Laboratory Results - last 24 hr 10/27/18 10/27/18 10/27/18 11:17 16:40 21:04 APTT PTT Ratio Sodium Potassium Chloride Carbon Dioxide Anion Gap BUN Creatinine Est Cr Clr Drug Dosing Est GFR ( Amer) Est GFR (Non-Af Amer) BUN/Creatinine Ratio Glucose POC Glucose 192 H 122 H 140 H Calcium 10/28/18 10/28/18 10/28/18 06:04 06:57 07:39 APTT 50.3 H* PTT Ratio 1.9 Sodium 139 Potassium 4.8 Chloride 100 Carbon Dioxide 36 H Anion Gap 3.0 BUN 42 H Creatinine 1.10 Est Cr Clr Drug Dosing 123.3 Est GFR ( Amer) 81.8 Est GFR (Non-Af Amer) 70.6 BUN/Creatinine Ratio 38.4 H Glucose 73 POC Glucose 71 Calcium 8.3 L
--- NOTE | 2018-10-28 11:20 | Pharmacy Report ---
Pharmacy Glycemic Short Note 2 - Date of Service October 28, 2018 - Glycemic Short BSG Results (Last 24 hours): 10/27/18 10/27/18 10/27/18 11:17 16:40 21:04 Glucose POC Glucose 192 H 122 H 140 H 10/28/18 10/28/18 06:04 06:57 Glucose 73 POC Glucose 71 OUTPATIENT ANTIDIABETIC REGIMEN: * 70/30 95 units QAM; 65 units QPM ASSESSMENT: 10/28 * Over the last 24 hrs, 106 units of SQ insulin administered * Fasting BSG 71 this AM w/ 85 units of Lantus on board; will titrate down dosage * Post-prandial BSGs controlled on 2 of 3 post-prandial checks yesterday * Patient appears to be more insulin sensitive today 10/27 * BSGs elevated yesterday, increased lantus doses, received at total of 80 of lantus, 30 of correctional * Patient extubated and ordered a diet, current novolog parameters ~ weight based stress of 2, continue for now, will assess need for changes as patient starts diet * Fasting improved this morning with lantus increase and removal of steroids, slight increase this morning and scale for PM 10/26 * BSGs controlled until yesterday PM, elevated into 200s * Patient used 38 units of insulin, 20 units of lantus 18 of correctional * Patient's fasting elevated this AM 237; methylprednisolone is being discontinued today * Will increase lantus dose to 30 units this AM- this is still a reduction from home use (and between weight based stress of 1 and 2) however, with NPO status and steroid's being discontinued being conservative at this time. Scale for PM * Will tighten novolog parameters closer to weight based stress of 2. PLAN FOR INPATIENT GLYCEMIC CONTROL: * Hold outpatient oral diabetes medications (70/30 insulin) * Basal insulin (decrease) * Lantus 45 units this AM * Lantus 10 units Q PM if BSG above 140 * Bolus insulin- (decrease) * NovoLog per scale ACHS or Q6hrs while NPO * Goal Range: Low 120 mg/dL - High 160 mg/dL * Correction Factor: 15 mg/dL/unit * Nutritional / Prandial insulin per carb ratio of 1 unit per 5 grams CHO consumed PLAN FOR DISCHARGE: * to be determined
--- NOTE | 2018-10-28 15:25 | Hospitalist Progress Note ---
Date of Service October 28, 2018 Assessment & Plan (1) Acute respiratory failure with hypoxia: (2) Pneumonia: (3) COPD (chronic obstructive pulmonary disease): (4) SAFIA (obstructive sleep apnea): Present on admission with respiratory distress CXR on admission showed near complete opacification left hemithorax. ABG on admission showed pH 7.2 and PCO2 87 was intubated on vent support S/P extubated on 10/25 Rocephin IV changed to Augmentin to complete 7 days course Continue CPap/Bipap when sleeping or napping Case management was notified about to help on getting CPAP/BiPaP on discharge Will consult pulmonology Continue monitor in tele (5) Elevated troponin: Possible NSTEMI Vs demand ischemia Denies any chest pain Troponin peaked to 5.6, now trending down 4.5 Cardiology consulted recommended to continue heparin drip for another 48hr Continue metoprolol 12.5 BID Continue statin and aspirin Stable (6) Diabetes: Hba1c 7.3 on 10/25/18 Pharmacy on board for glycemic management Continue monitor BS (7) Hypertension: BP elevated Continue Amlodipine 10mg daily and Metoprolol 12.5 mg Continue topical nitrate q6h Lisinopril on hold due to elevate K Monitor BP (8) Acute on chronic diastolic (congestive) heart failure: CXR on admission showed right lung interstitial edema pattern and right pleural effusion Not compliant with lasix outpatient Cardiology on board recommended IV Lasix has not been diurese well on Lasix 40mg BID IV since pt has a positive balance Lasix increasedto 60mg IV TID Monitor I/O Monitor BMP while on IV lasix (9) Hypothyroidism: Cont home dose Synthroid. (10) Morbid obesity: (11) Hyperkalemia: K on admission 6 K was 5.9 last night then improved to 4.9 yesterday Received calcium gluconate and insulin 10mg IV Lisinopril on hold due to elevate K K 4.8 this morning Monitor BMP (12) Altered mental status: Mostly due to elevated CO2 CT head showed age indeterminate lacunar infarct back to baseline (13) Lacunar infarction: Age indeterminate on CT. MRI and further CTs cannot be ordered as patient body habitus is too large. (14) Left bundle branch block: chronic. DM type 2 Hba1c 7.3 Pharmacy on board for glycemic management Monitor BS (15) DVT prophylaxis: On Heparin drip GI prophylaxis on Pepcid Full Code Disposition Will discharge once medically stable Subjective Pt was seen and examined Lying in bed with no distress working in his computer Pt said that his breathing is a little bit better He has been on 3L NC and tolerated Denies any chest pain, palpitation, dizziness and fever Physical Exam Physical Exam: General- No acute distress Head- atraumatic Eyes- PERRL, EOMI, ENT- oropharynx clear Neck- supple, no JVD Lungs- diminished BS, +Rhonchi Heart- regular rhythm; no murmur Abdomen- normal bowel sounds, soft, nontender, obese Extremities- no calf tenderness, +edema Neuro- alert, oriented x 3; PERRL, EOMI; no facial palsy; no dysarthria Skin- warm & dry Results & Data Vital Signs (Past 12 Hours) Vital Signs Temp Pulse Pulse Resp BP Pulse Ox 10/28/18 11:45 36.5 C 64 17 164/67 H 95 10/28/18 08:00 59 L 10/28/18 07:00 36.4 C L 62 17 126/57 L 94 10/28/18 04:00 36.5 C 61 20 154/66 H 94 10/28/18 03:28 65 17 98 (1) Pneumonia Laterality: left Lung location: unspecified part of lung Pneumonia type: due to unspecified organism Qualified Code(s): J18.9 - Pneumonia, unspecified organism
[2018-10-28] MEDS: FUROSEMIDE 60 MG in SYRINGE 0 ML IV SCH ×2 (16:45→22:20)
[2018-10-28] MEDS ORDERED: INSULIN GLARGINE SOLOSTAR 100 UNITS/ML 3 ML PEN SC SCH (21:00)
[2018-10-28] MEDS: GABAPENTIN 300 MG CAP PO SCH (21:09)
[2018-10-29] MEDS: NITROGLYCERIN 2% OINTMENT 30GM TUBE EXT SCH ×4 (00:22→20:10)
[2018-10-29] MEDS: Heparin Adult STANDARD Wt-Based Dextrose 5% 25,000 units/500 mL IV SCH ×2 (03:14→21:03)
[2018-10-29] MEDS: LEVOTHYROXINE SODIUM 200 MCG TABLET PO SCH (05:27)
[2018-10-29] MEDS: PRAZOSIN HCL 1 MG CAP PO SCH ×3 (05:27→20:59)
[2018-10-29] MEDS: LEVOTHYROXINE SODIUM 50 MCG TABLET PO SCH (05:27)
[2018-10-29 07:11] LABS: BUN Creatinine Ratio 36.4 (10-20); Calcium 8.2 mg/dl (8.5-10.1); Creatinine Clr Calc Pharmacy 124.2 ml/min; Est GFR (African American) 83.6; Est GFR (Non-African American) 72.2; Potassium 4.7 mmol/L (3.5-5.1)
[2018-10-29 07:46] LABS: Partial Thromboplastin Time 53.5 Seconds (21.0-31.0)
[2018-10-29] MEDS: ASPIRIN 325 MG ECTAB PO SCH (08:30)
[2018-10-29] MEDS: METOPROLOL TARTRATE 25 MG TAB PO SCH ×2 (08:30→20:59)
[2018-10-29] MEDS: FAMOTIDINE 20 MG TAB PO SCH ×2 (08:30→20:59)
[2018-10-29] MEDS: FUROSEMIDE 60 MG in SYRINGE 0 ML IV SCH ×3 (08:30→20:59)
[2018-10-29] MEDS: AMLODIPINE BESYLATE 5 MG TAB PO SCH (08:30)
[2018-10-29] MEDS: ATORVASTATIN 10 MG TAB PO SCH (08:30)
[2018-10-29] MEDS: AMOXICILLIN/CLAVULANATE 875 MG TAB PO SCH ×2 (08:30→16:52)
[2018-10-29] MEDS: NICOTINE 7 MG/24 HR TDSY TD SCH (08:31)
[2018-10-29] MEDS: GABAPENTIN 100 MG CAP PO SCH ×2 (08:31→13:50)
[2018-10-29] MEDS: INSULIN GLARGINE SOLOSTAR 100 UNITS/ML 3 ML PEN SC SCH (08:32)
[2018-10-29] MEDS: INSULIN ASPART 100 UNITS/ML 3 ML PEN SQ SCH ×4 (08:32→21:04)
--- NOTE | 2018-10-29 11:23 | Cardiology Progress Note ---
Date of Service October 29, 2018 Assessment & Plan (1) Acute on chronic diastolic (congestive) heart failure: Recommend fluid restriction, 1500 cc daily. Continue Lasix to 60 mg 3 times daily. Consider addition of metolazone. Maintain negative fluid balance. Will not add Aldactone at this time due to borderline elevated serum potassium levels. Monitor closely for signs symptoms of recurrent CO2 retention. Heart failure likely precipitated by noncompliance with diuretic therapy in the ou tpatient setting. Repeat basic metabolic panel in a.m. (2) Hypertensive urgency: Blood pressure improving with topical nitrates and IV diuretic therapy. Restart lisinopril. Continue beta-kate as previously ordered. (3) Elevated troponin I level: Troponin trending downward. Suspect type II event related to acute hypoxic respiratory failure in the setting of mucous plugging, acute decompensated diastolic heart failure, and hypertensive urgency. Continue aspirin and statin therapy as previously ordered. (4) Left bundle branch block: Chronic finding. (5) Hyperkalemia: Resolved. Monitor. (6) Morbid obesity: (7) Acute respiratory failure with hypoxia: Subjective Patient seen and examined the bedside. More alert today. Diuresed approximately 2500 cc overnight, however, input was approximately 2800cc. More alert today. Tolerating diet and medications. Renal function remains stable. Wearing BiPAP at night. Review of Systems Review of Systems: All systems reviewed & are unremarkable except as noted in HPI & below Physical Exam Physical Exam: General: NAD, AAO x3, chronically ill, morbid obesity. HEENT: normocephalic. Atraumatic. Conjunctiva pink, no scleral icterus. Neck: No carotid bruits, the carotid upstrokes are brisk. No JVD. No HJR Heart: Regular normal S-1 and S-2 no S-3 or S-4 gallop. No murmurs or rub appreciated. PMI is not displaced. No RV heave. Lungs: Clear bilateral without rales , rhonchi, or wheeze. Abdomen: 2+ pitting edema of the pannus. Normal bowel sounds. Soft. Nontender. No masses or organomegaly. No abdominal bruits. Extremities: 2+ pitting edema pulses: radial=2/4, Dorsalis pedis =2/4, posterior tibial=2/4. Neuro: Cranial nerves grossly intact. No focal motor deficit. Results & Data Vital Signs (Past 12 Hours) Vital Signs Temp Pulse Pulse Resp BP Pulse Ox 10/29/18 10:57 36.8 C 69 20 158/62 H 91 10/29/18 07:35 73 27 H 98 10/29/18 07:34 36.6 C 71 15 116/55 L 95 10/29/18 04:25 37.2 C 70 20 164/71 H 97 10/29/18 01:41 64 16 95 10/29/18 01:31 66 10/29/18 00:10 37.3 C 69 22 158/64 H 97 Laboratory Results Laboratory Results - last 24 hr 10/28/18 10/28/18 10/28/18 11:36 16:37 20:29 APTT PTT Ratio Sodium Potassium Chloride Carbon Dioxide Anion Gap BUN Creatinine Est Cr Clr Drug Dosing Est GFR ( Amer) Est GFR (Non-Af Amer) BUN/Creatinine Ratio Glucose POC Glucose 93 94 110 H Calcium 10/29/18 10/29/18 06:07 07:08 APTT 53.5 H* PTT Ratio 2.0 Sodium 138 Potassium 4.7 Chloride 99 Carbon Dioxide 38 H Anion Gap 1.0 L BUN 39 H Creatinine 1.08 Est Cr Clr Drug Dosing 124.2 Est GFR ( Amer) 83.6 Est GFR (Non-Af Amer) 72.2 BUN/Creatinine Ratio 36.4 H Glucose 80 POC Glucose Calcium 8.2 L
--- NOTE | 2018-10-29 11:32 | Pharmacy Report ---
Pharmacy Glycemic Short Note 2 - Date of Service October 29, 2018 - Glycemic Short BSG Results (Last 24 hours): 10/28/18 10/28/18 10/28/18 11:36 16:37 20:29 Glucose POC Glucose 93 94 110 H 10/29/18 06:07 Glucose 80 POC Glucose OUTPATIENT ANTIDIABETIC REGIMEN: * 70/30 95 units QAM; 65 units QPM ASSESSMENT: 10/29 * Over the last 24 hrs, 64 units of insulin administered in the last 24 hrs wh ile tolerating a diet * BSGs again running a little lower than required * Fasting BSG 81 this AM with 45 units of Lantus on board - will titrate down 20% * Will also lessen Novolog doses today as pt appears to be requiring much less insulin than home regimen provided 10/28 * Over the last 24 hrs, 106 units of SQ insulin administered * Fasting BSG 71 this AM w/ 85 units of Lantus on board; will titrate down dosage * Post-prandial BSGs controlled on 2 of 3 post-prandial checks yesterday * Patient appears to be more insulin sensitive today 10/27 * BSGs elevated yesterday, increased lantus doses, received at total of 80 of lantus, 30 of correctional * Patient extubated and ordered a diet, current novolog parameters ~ weight based stress of 2, continue for now, will assess need for changes as patient starts diet * Fasting improved this morning with lantus increase and removal of steroids, slight increase this morning and scale for PM 10/26 * BSGs controlled until yesterday PM, elevated into 200s * Patient used 38 units of insulin, 20 units of lantus 18 of correctional * Patient's fasting elevated this AM 237; methylprednisolone is being discontinued today * Will increase lantus dose to 30 units this AM- this is still a reduction from home use (and between weight based stress of 1 and 2) however, with NPO status and steroid's being discontinued being conservative at this time. Scale for PM * Will tighten novolog parameters closer to weight based stress of 2. PLAN FOR INPATIENT GLYCEMIC CONTROL: * Hold outpatient oral diabetes medications (70/30 insulin) * Basal insulin (decrease) * Lantus 36 units this AM * Bolus insulin- (decrease) * NovoLog per scale ACHS or Q6hrs while NPO * Goal Range: Low 120 mg/dL - High 160 mg/dL * Correction Factor: 20 mg/dL/unit * Nutritional / Prandial insulin per carb ratio of 1 unit per 7 grams CHO consumed PLAN FOR DISCHARGE: * to be determined
[2018-10-29] MEDS ORDERED: LISINOPRIL 20 MG TAB PO STA (11:34)
--- NOTE | 2018-10-29 20:15 | Hospitalist Progress Note ---
Date of Service October 29, 2018 Assessment & Plan (1) Acute respiratory failure with hypoxia: (2) Pneumonia: (3) COPD (chronic obstructive pulmonary disease): (4) SAFIA (obstructive sleep apnea): Present on admission with respiratory distress CXR on admission showed near complete opacification left hemithorax. ABG on admission showed pH 7.2 and PCO2 87 was intubated on vent support S/P extubated on 10/25 Rocephin IV changed to Augmentin to complete 7 days course Continue CPap/Bipap when sleeping or napping Case management was notified about to help on getting CPAP/BiPaP on discharge Consider pulmonology consult Continue monitor in tele (5) Elevated troponin: Possible NSTEMI Vs demand ischemia Denies any chest pain Troponin peaked to 5.6, now trending down 4.5 Cardiology consulted recommended to continue heparin drip for another 48hr Will ddiscuss with cardiology about to discontinue drip Continue metoprolol 12.5 BID Continue statin and aspirin Stable (6) Diabetes: Hba1c 7.3 on 10/25/18 Pharmacy on board for glycemic management Continue monitor BS (7) Hypertension: BP elevated Continue Amlodipine 10mg daily and Metoprolol 12.5 mg Continue topical nitrate q6h Lisinopril was on hold due to elevate K Lisinopril restarted today Monitor BP (8) Acute on chronic diastolic (congestive) heart failure: CXR on admission showed right lung interstitial edema pattern and right pleural effusion Not compliant with lasix outpatient Cardiology on board recommended to continue IV Lasix 60mg TID might consider to add metolazone Fluid restriction with 1.5L daily Monitor I/O Monitor BMP while on IV lasix (9) Hypothyroidism: Cont home dose Synthroid. (10) Morbid obesity: counseling on weight loss Diet and exercised as tolerated (11) Hyperkalemia: K on admission 6 K was 5.9 last night then improved to 4.9 yesterday Received calcium gluconate and insulin 10mg IV Lisinopril was on hold due to elevate K K 4.7 this morning Restarted Lisinopril today, will monitor K Monitor BP (12) Altered mental status: Mostly due to elevated CO2 CT head showed age indeterminate lacunar infarct back to baseline Resolved (13) Lacunar infarction: Age indeterminate on CT. MRI and further CTs cannot be ordered as patient body habitus is too large. (14) Left bundle branch block: chronic. DM type 2 Hba1c 7.3 Pharmacy on board for glycemic management Monitor BS (15) DVT prophylaxis: On Heparin drip GI prophylaxis on Pepcid Full Code Disposition Plan to go to rehab once medically stable PT/OT eval Subjective Pt was seen and examined Lying in bed with no distress Pt said that breathing slightly improves Denies any chest pain, palpitation a Physical Exam Physical Exam: General- No acute distress Head- atraumatic Eyes- PERRL, EOMI, ENT- oropharynx clear Neck- supple, no JVD Lungs- diminished BS, +Rhonchi Heart- regular rhythm; no murmur Abdomen- normal bowel sounds, soft, nontender, obese Extremities- no calf tenderness, +edema Neuro- alert, oriented x 3; PERRL, EOMI; no facial palsy; no dysarthria Skin- warm & dry Results & Data Vital Signs (Past 12 Hours) Vital Signs Temp Pulse Pulse Resp BP BP Pulse Ox 10/29/18 19:32 72 20 95 10/29/18 19:00 37.0 C 71 20 143/51 H 88 L 10/29/18 15:04 64 10/29/18 15:02 36.3 C L 70 22 129/70 96 10/29/18 13:52 68 23 98 10/29/18 10:57 36.8 C 69 20 158/62 H 91 (1) Pneumonia Laterality: left Lung location: unspecified part of lung Pneumonia type: due to unspecified organism Qualified Code(s): J18.9 - Pneumonia, unspecified organism
[2018-10-29] MEDS: GABAPENTIN 300 MG CAP PO SCH (20:59)
[2018-10-30] MEDS: NITROGLYCERIN 2% OINTMENT 30GM TUBE EXT SCH ×4 (00:32→19:49)
[2018-10-30] MEDS: PRAZOSIN HCL 1 MG CAP PO SCH ×3 (06:05→21:20)
[2018-10-30] MEDS: LEVOTHYROXINE SODIUM 50 MCG TABLET PO SCH (06:05)
[2018-10-30] MEDS: LEVOTHYROXINE SODIUM 200 MCG TABLET PO SCH (06:05)
[2018-10-30 07:57] LABS: Partial Thromboplastin Ratio 1.9
[2018-10-30 08:01] LABS: Partial Thromboplastin Time 50.8 Seconds (21.0-31.0)
[2018-10-30 08:03] LABS: BUN Creatinine Ratio 34.3 (10-20); Calcium 8.2 mg/dl (8.5-10.1); Creatinine Clr Calc Pharmacy 116.4 ml/min; Est GFR (African American) 77.5; Est GFR (Non-African American) 66.9; Potassium 4.7 mmol/L (3.5-5.1)
[2018-10-30] MEDS: ASPIRIN 325 MG ECTAB PO SCH (08:22)
[2018-10-30] MEDS: ATORVASTATIN 10 MG TAB PO SCH (08:22)
[2018-10-30] MEDS: AMLODIPINE BESYLATE 5 MG TAB PO SCH (08:22)
[2018-10-30] MEDS: GABAPENTIN 100 MG CAP PO SCH ×2 (08:22→12:06)
[2018-10-30] MEDS: NICOTINE 7 MG/24 HR TDSY TD SCH (08:23)
[2018-10-30] MEDS: LISINOPRIL 20 MG TAB PO SCH (08:23)
[2018-10-30] MEDS: FAMOTIDINE 20 MG TAB PO SCH ×2 (08:23→21:20)
[2018-10-30] MEDS: FUROSEMIDE 60 MG in SYRINGE 0 ML IV SCH ×3 (08:23→21:18)
[2018-10-30] MEDS: METOPROLOL TARTRATE 25 MG TAB PO SCH ×2 (08:24→21:18)
[2018-10-30] MEDS: AMOXICILLIN/CLAVULANATE 875 MG TAB PO SCH ×2 (08:25→16:47)
[2018-10-30] MEDS: INSULIN ASPART 100 UNITS/ML 3 ML PEN SQ SCH ×4 (08:28→21:20)
--- NOTE | 2018-10-30 09:01 | Cardiology Progress Note ---
Date of Service October 30, 2018 Assessment & Plan (1) Acute respiratory failure with hypoxia and hypercapnia: Continue BiPAP and cautious diuresis. Recommend pulmonary consultation. (2) Acute on chronic diastolic (congestive) heart failure: Recommend fluid restriction, 1500 cc daily. Continue Lasix to 60 mg 3 times daily and fluid restriction of 1500 cc/day. Maintain negative fluid balance. Will not add Aldactone at this time due to borderline elevated serum potassium levels. Monitor closely for signs symptoms of recurrent CO2 retention. Heart failure likely precipitated by noncompliance with diuretic therapy in the outpatient setting. Repeat basic metabolic panel in a.m. (3) Hypertensive urgency: Blood pressure improving with topical nitrates and IV diuretic therapy. Restart lisinopril. Continue beta-kate as previously ordered. (4) Elevated troponin I level: Troponin trending downward. Suspect type II event related to acute hypoxic respiratory failure in the setting of mucous plugging, acute decompensated diastolic heart failure, and hypertensive urgency. Continue aspirin and statin therapy as previously ordered. (5) Left bundle branch block: Chronic finding. (6) Hyperkalemia: Resolved. Monitor. (7) Morbid obesity: Subjective Patient seen and examined at the bedside. Fluid balance negative approximately 1900 cc over the past 24 hours. Feeling better from a respiratory perspective. Denies chest pain or shortness of breath. Notes nonproductive cough. Edema subjectively improved. Weight is trending downward. Renal function remained stable. Blood pressure improved as well. Review of Systems Review of Systems: All systems reviewed & are unremarkable except as noted in HPI & below Physical Exam Physical Exam: General: NAD, AAO x3, chronically ill, morbid obesity. HEENT: normocephalic. Atraumatic. Conjunctiva pink, no scleral icterus. Neck: No carotid bruits, the carotid upstrokes are brisk. No JVD. No HJR Heart: Regular normal S-1 and S-2 no S-3 or S-4 gallop. No murmurs or rub appreciated. PMI is not displaced. No RV heave. Lungs: Coarse breath sounds bilaterally, no rales or wheeze. Abdomen: 2+ pitting edema of the pannus. Normal bowel sounds. Soft. Nontender. No masses or organomegaly. No abdominal bruits. Extremities: 2+ pitting edema pulses: radial=2/4, Dorsalis pedis =2/4, posterior tibial=2/4. Neuro: Cranial nerves grossly intact. No focal motor deficit. Results & Data Vital Signs (Past 12 Hours) Vital Signs Temp Pulse Pulse Resp BP Pulse Ox 10/30/18 06:54 36.9 C 60 18 152/48 H 96 10/30/18 04:29 36.5 C 57 L 20 139/62 96 10/30/18 01:46 68 31 H 96 10/30/18 00:09 37.2 C 68 18 135/78 98 Laboratory Results Laboratory Results - last 24 hr 10/29/18 10/29/18 10/29/18 07:31 11:34 16:37 APTT PTT Ratio Sodium Potassium Chloride Carbon Dioxide Anion Gap BUN Creatinine Est Cr Clr Drug Dosing Est GFR ( Amer) Est GFR (Non-Af Amer) BUN/Creatinine Ratio Glucose POC Glucose 81 110 H 142 H Calcium 10/29/18 10/30/18 10/30/18 20:25 07:15 07:15 APTT 50.8 H* PTT Ratio 1.9 Sodium 139 Potassium 4.7 Chloride 98 Carbon Dioxide 39 H Anion Gap 1.0 L BUN 39 H Creatinine 1.15 Est Cr Clr Drug Dosing 116.4 Est GFR ( Amer) 77.5 Est GFR (Non-Af Amer) 66.9 BUN/Creatinine Ratio 34.3 H Glucose 136 H POC Glucose 127 H Calcium 8.2 L 10/30/18 07:28 APTT PTT Ratio Sodium Potassium Chloride Carbon Dioxide Anion Gap BUN Creatinine Est Cr Clr Drug Dosing Est GFR ( Amer) Est GFR (Non-Af Amer) BUN/Creatinine Ratio Glucose POC Glucose 139 H Calcium
[2018-10-30] MEDS: INSULIN GLARGINE SOLOSTAR 100 UNITS/ML 3 ML PEN SC SCH (09:28)
--- NOTE | 2018-10-30 09:28 | Pharmacy Report ---
Pharmacy Glycemic Short Note 2 - Date of Service October 30, 2018 - Glycemic Short BSG Results (Last 24 hours): 10/29/18 10/29/18 10/29/18 07:31 11:34 16:37 Glucose POC Glucose 81 110 H 142 H 10/29/18 10/30/18 10/30/18 20:25 07:15 07:28 Glucose 136 H POC Glucose 127 H 139 H OUTPATIENT ANTIDIABETIC REGIMEN: * 70/30 95 units QAM; 65 units QPM ASSESSMENT: 10/30 * BSGs at goal over last 24 hrs * Fasting BSG 136-139 this AM with 36 units Lantus on board - will continue * Post-prandial BSGs at goal yesterday using lower prandial insulin doses - will continue 10/29 * Over the last 24 hrs, 64 units of insulin administered in the last 24 hrs while tolerating a diet * BSGs again running a little lower than required * Fasting BSG 81 this AM with 45 units of Lantus on board - will titrate down 20% * Will also lessen Novolog doses today as pt appears to be requiring much less insulin than home regimen provided 10/28 * Over the last 24 hrs, 106 units of SQ insulin administered * Fasting BSG 71 this AM w/ 85 units of Lantus on board; will titrate down dosage * Post-prandial BSGs controlled on 2 of 3 post-prandial checks yesterday * Patient appears to be more insulin sensitive today 10/27 * BSGs elevated yesterday, increased lantus doses, received at total of 80 of lantus, 30 of correctional * Patient extubated and ordered a diet, current novolog parameters ~ weight based stress of 2, continue for now, will assess need for changes as patient starts diet * Fasting improved this morning with lantus increase and removal of steroids, slight increase this morning and scale for PM PLAN FOR INPATIENT GLYCEMIC CONTROL: * Hold outpatient oral diabetes medications (70/30 insulin) * Basal insulin (no change) * Lantus 36 units this AM * Bolus insulin- (no change) * NovoLog per scale ACHS or Q6hrs while NPO * Goal Range: Low 120 mg/dL - High 160 mg/dL * Correction Factor: 20 mg/dL/unit * Nutritional / Prandial insulin per carb ratio of 1 unit per 7 grams CHO consumed PLAN FOR DISCHARGE: * to be determined
--- NOTE | 2018-10-30 14:18 | Hospitalist Progress Note ---
Date of Service October 30, 2018 Assessment & Plan (1) Acute respiratory failure with hypoxia and hypercapnia: 2/2 pneumonia and CHF exacerbation in setting of morbid obesity and uncontrolled SAFIA. Cont CPAP while hospitalized. Appreciate Pulm recs and help with getting CPAP back in the home again at discharge. EDAC seen on bronch. Augmentin for H flu pneumonia. Cont diuresis and fluid restriction for volume overloaded state. (2) Acute on chronic diastolic (congestive) heart failure: diuretics, fluid restriction. Cards consult (3) Pneumonia: Augmentin, improved. (4) Elevated troponin I level: likely 2/2 demand ischemia. Cont ASA and statin per Cards recs. Heparin drip was stopped this morning. (5) Hypertensive urgency: At goal-cont norvasc 10, Lisinopril 20 PO daily. (6) SAFIA (obstructive sleep apnea): CPAP (7) Morbid obesity: (8) Diabetes: at goal, cont basal/bolus insulin. (9) Tobacco abuse: strongly advised to quit smoking, currently on the nicotine patch. Pt verbalized intent to quit smoking. (10) DVT prophylaxis: Lovenox-pharmacy to dose Full Code Dispo-may need SNF, several more days in the hospital. Encouraged nurses and patient to get up and move with assistance Fatimah Rowland DO [facility] Hospitalist Subjective Presented with acute hypoxic respiratory failure requiring intubation on arrival. He was treated in the ICU for a couple of days and has been extubated since 10/26 with continued recovery. Currently is eating well and denies any coughing, fevers, chills or other symptoms of pnemonia. With left lung white out seen on initial CXR, he underwent a bronchoscopy which grw H flu and he has been de-escalated appropriately to Augmentin. He has also been undergoing treatment for hypervolemia with diuresis and fluid restriction and he feels that his swelling is improved. Niece is at bedside. No other symptoms or concerns. Discussed patient to try to mobilize out of bed to chair. He is very heavy so this may be logistically challenging and require extra help/sarah lift. He ambulates with a walker at baseline. Review of Systems Review of Systems: All systems reviewed & are unremarkable except as noted in HPI & below Physical Exam Physical Exam: CONSTITUTIONAL: morbid obesity, vitals as above, generally well-appearing EYES: normal conjuctivae, no scleral icterus ENT: MMM RESPIRATORY: clear to auscultation bilaterally, no crackles, rales or wheezes, normal respiratory effort CARDIOVASCULAR: regular rate and rhythm, S1 and 2 heard without murmurs, gallops or rubs, no JVD, trace peripheral edema GASTROINTESTINAL: large protuberant abdomen, soft, nontender, nondistended. MUSCULOSKELETAL: generalized weakness and deconditioning, head is normocephalic and atraumatic SKIN: warm and dry NEUROLOGIC: no gross frocal deficits. PSYCHIATRIC: alert cooperative and oriented to person, place and time. Results & Data Vital Signs (Past 12 Hours) Vital Signs Temp Pulse Pulse Resp BP Pulse Ox 10/30/18 14:12 58 L 16 10/30/18 11:26 90 10/30/18 11:08 37.1 C 67 17 132/52 L 95 10/30/18 06:54 36.9 C 60 18 152/48 H 96 10/30/18 04:29 36.5 C 57 L 20 139/62 96 Laboratory Results [facility] 10/30/18 07:15 Sodium 139 Potassium 4.7 Chloride 98 Carbon Dioxide 39 H BUN 39 H Creatinine 1.15 Glucose 136 H Calcium 8.2 L Medications Administered Current Inpatient Medications Albuterol (Duoneb) 3 ml INH Q4H PRN PRN Reason: Dyspnea Stop: 11/23/18 18:03 Last Admin: 10/27/18 11:30 Dose: 3 ml Documented by: Amlodipine Besylate (Norvasc) 10 mg PO QAM [facility] Stop: 11/26/18 08:59 Last Admin: 10/30/18 08:22 Dose: 10 mg Documented by: Amoxicillin/Clavulanate Potassium (Augmentin 875mg) 1 tab PO BIDM [facility]; Protocol Stop: 11/04/18 08:59 Last Admin: 10/30/18 16:47 Dose: 1 tab Documented by: Aspirin (Ecotrin) 325 mg PO DAILY [facility] Stop: 11/25/18 08:59 Last Admin: 10/30/18 08:22 Dose: 325 mg Documented by: Atorvastatin Calcium (Lipitor) 10 mg PO DAILY [facility] Stop: 11/24/18 08:59 Last Admin: 10/30/18 08:22 Dose: 10 mg Documented by: Dextrose (Dextrose 50%) 25 - 50 ml IV UD PRN; Protocol PRN Reason: Hypoglycemia Protocol Stop: 11/23/18 23:16 Docusate Sodium (Colace) 100 mg PO BID PRN PRN Reason: Constipation Stop: 11/23/18 18:03 Famotidine (Pepcid) 20 mg PO BID [facility] Stop: 11/26/18 20:59 Last Admin: 10/30/18 21:20 Dose: 20 mg Documented by: Gabapentin (Neurontin) 100 mg PO BID@0800,1200 [facility] Stop: 11/26/18 11:59 Last Admin: 10/30/18 12:06 Dose: 100 mg Documented by: Gabapentin (Neurontin) 300 mg PO HS [facility] Stop: 11/26/18 20:59 Last Admin: 10/30/18 21:19 Dose: 300 mg Documented by: Glucagon (Glucagen) 1 mg SQ UD PRN; Protocol PRN Reason: Hypoglycemia Protocol Stop: 11/23/18 23:16 Glucose (Dex4 Glucose) 4 - 8 tabs PO UD PRN; Protocol PRN Reason: Hypoglycemia Protocol Stop: 11/23/18 23:16 Glucose (Glucose 40%) 15 - 30 gm PO UD PRN; Protocol PRN Reason: Hypoglycemia Protocol Stop: 11/23/18 23:16 Furosemide 60 mg/ Syringe 6 mls @ 4 mls/min IV TID [facility] Stop: 11/27/18 15:29 Last Admin: 10/30/18 21:18 Dose: 4 mls/min Documented by: Insulin Aspart (Novolog Flexpen) 0 units SQ ACHS [facility] Stop: 11/24/18 15:59 Last Admin: 10/30/18 21:20 Dose: Not Given Documented by: Insulin Glargine (Lantus Solostar Pen) [facility] [place] Stop: 11/28/18 08:59 Last Admin: 10/30/18 09:28 Dose: 36 units Documented by: Levothyroxine Sodium (Synthroid) 50 mcg PO DAILYBB [facility] Stop: 11/24/18 06:29 Last Admin: 10/30/18 06:05 Dose: 50 mcg Documented by: Levothyroxine Sodium (Synthroid) 200 mcg PO DAILYBB [facility] Stop: 11/24/18 06:29 Last Admin: 10/30/18 06:05 Dose: 200 mcg Documented by: Lisinopril (Zestril) 20 mg PO QAM [facility] Stop: 11/25/18 12:29 Last Admin: 10/30/18 08:23 Dose: 20 mg Documented by: Metoprolol Tartrate (Lopressor) 12.5 mg PO BID [facility] Stop: 11/25/18 08:59 Last Admin: 10/30/18 21:18 Dose: 12.5 mg Documented by: Miconazole Nitrate (Desenex) 1 appln EXT BID PRN PRN Reason: AFFECTED SKIN FOLDS Stop: 11/24/18 15:55 Miscellaneous (Carbohydrates For Hypoglycemia) 15 - 30 gm PO UD PRN PRN Reason: Hypoglycemia Treatment Stop: 11/23/18 23:16 Miscellaneous (Remove Nicoderm Patch) 1 ea N/A HS [facility] Stop: 11/24/18 20:59 Last Admin: 10/30/18 21:20 Dose: 1 ea Documented by: Miscellaneous Information (Consult Glycemic Management Pharmacy) 1 ea N/A UD PRN; Protocol PRN Reason: Consult Stop: 11/23/18 23:35 Nicotine (Nicoderm Cq) 7 mg TD QAM [facility] Stop: 11/24/18 17:29 Last Admin: 10/30/18 08:23 Dose: 7 mg Documented by: Nitroglycerin (Nitro-Bid 2%) 1 inch EXT Q6H [facility] Stop: 11/25/18 12:59 Last Admin: 10/30/18 19:49 Dose: 1 inch Documented by: Polyethylene Glycol (Miralax Powder Packet) 17 gm PO DAILY PRN PRN Reason: Constipation Prazosin HCl (Prazosin Hcl) 1 mg PO Q8 [facility] Stop: 11/25/18 13:59 Last Admin: 10/30/18 21:20 Dose: 1 mg Documented by: (1) Pneumonia Laterality: left Lung location: unspecified part of lung Pneumonia type: due to unspecified organism Qualified Code(s): J18.9 - Pneumonia, unspecified organism
[2018-10-30] MEDS: GABAPENTIN 300 MG CAP PO SCH (21:19)
[2018-10-31] MEDS: NITROGLYCERIN 2% OINTMENT 30GM TUBE EXT SCH ×2 (00:41→06:27)
[2018-10-31] MEDS: ENOXAPARIN INJ 40 MG/0.4 ML SYR SQ SCH ×3 (00:41→21:39)
[2018-10-31] MEDS: LEVOTHYROXINE SODIUM 50 MCG TABLET PO SCH (06:26)
[2018-10-31] MEDS: LEVOTHYROXINE SODIUM 200 MCG TABLET PO SCH (06:26)
[2018-10-31] MEDS: PRAZOSIN HCL 1 MG CAP PO SCH ×3 (06:27→21:41)
[2018-10-31] MEDS: METOPROLOL TARTRATE 25 MG TAB PO SCH ×2 (08:34→21:38)
[2018-10-31] MEDS: NICOTINE 7 MG/24 HR TDSY TD SCH (08:35)
[2018-10-31] MEDS: FAMOTIDINE 20 MG TAB PO SCH ×2 (08:35→21:40)
[2018-10-31] MEDS: ASPIRIN 325 MG ECTAB PO SCH (08:35)
[2018-10-31] MEDS: GABAPENTIN 100 MG CAP PO SCH ×2 (08:35→11:43)
[2018-10-31] MEDS: AMLODIPINE BESYLATE 5 MG TAB PO SCH (08:36)
[2018-10-31] MEDS: FUROSEMIDE 60 MG in SYRINGE 0 ML IV SCH ×3 (08:36→21:38)
[2018-10-31] MEDS: AMOXICILLIN/CLAVULANATE 875 MG TAB PO SCH ×2 (08:36→16:48)
[2018-10-31] MEDS: ATORVASTATIN 10 MG TAB PO SCH (08:36)
[2018-10-31] MEDS: INSULIN GLARGINE SOLOSTAR 100 UNITS/ML 3 ML PEN SC SCH (08:36)
[2018-10-31] MEDS: LISINOPRIL 20 MG TAB PO SCH (08:37)
[2018-10-31] MEDS: INSULIN ASPART 100 UNITS/ML 3 ML PEN SQ SCH ×5 (08:39→21:41)
--- NOTE | 2018-10-31 09:08 | Cardiology Progress Note ---
Date of Service October 31, 2018 Assessment & Plan (1) Acute on chronic diastolic (congestive) heart failure: Continue fluid restriction, 1500 cc daily and Lasix to 60 mg 3 times daily and fluid restriction of 1500 cc/day. Repeat basic metabolic panel. Maintain negative fluid balance. Monitor closely for signs symptoms of recurrent CO2 retention. Heart failure likely precipitated by noncompliance with diuretic therapy in the outpatient setting. (2) Acute respiratory failure with hypoxia and hypercapnia: Continue BiPAP and cautious diuresis. Recommend pulmonary consultation. (3) Hypertensive urgency: Blood pressure improved. Discontinue topical nitrates. Lisinopril restarted 10/30/18. Continue beta-kate as previously ordered. (4) Elevated troponin I level: Type II event related to acute hypoxic respiratory failure in the setting of mucous plugging, acute decompensated diastolic heart failure, and hypertensive urgency. Continue aspirin and statin therapy as previously ordered. (5) Left bundle branch block: Chronic finding. (6) Hyperkalemia: Resolved. Monitor. (7) Morbid obesity: Subjective Patient seen and examined at the bedside. Fluid balance negative approximately 2 L over the past 24 hours. A.m. labs pending. More alert today. Denies chest pain or shortness of breath. No dysrhythmias on telemetry. Blood pressure improved. Offers no new complaints at this time. Review of Systems Review of Systems: All systems reviewed & are unremarkable except as noted in HPI & below Physical Exam Physical Exam: General: NAD, AAO x3, chronically ill, morbid obesity. HEENT: normocephalic. Atraumatic. Conjunctiva pink, no scleral icterus. Neck: No carotid bruits, the carotid upstrokes are brisk. No JVD. No HJR Heart: Regular normal S-1 and S-2 no S-3 or S-4 gallop. No murmurs or rub appreciated. PMI is not displaced. No RV heave. Lungs: Coarse breath sounds bilaterally, no rales or wheeze. Abdomen: 2+ pitting edema of the pannus. Normal bowel sounds. Soft. Nontender. No masses or organomegaly. No abdominal bruits. Extremities: 2+ pitting edema pulses: radial=2/4, Dorsalis pedis =2/4, posterior tibial=2/4. Neuro: Cranial nerves grossly intact. No focal motor deficit. Results & Data Vital Signs (Past 12 Hours) Vital Signs Temp Pulse Pulse Resp BP BP Pulse Ox 10/31/18 07:12 36.3 C L 69 20 141/65 H 93 10/31/18 07:08 36.6 C 60 16 156/47 H 91 10/31/18 04:00 36.5 C 63 16 125/58 L 96 10/31/18 01:44 68 20 95 10/30/18 23:33 37.0 C 67 16 153/59 H 95 10/30/18 22:21 69 17 94 Laboratory Results Laboratory Results - last 24 hr 10/30/18 10/30/18 10/30/18 10:44 16:25 20:35 POC Glucose 151 H 139 H 147 H 10/31/18 06:59 POC Glucose 148 H
--- NOTE | 2018-10-31 09:18 | Pharmacy Report ---
Pharmacy Glycemic Short Note 2 - Date of Service October 31, 2018 - Glycemic Short BSG Results (Last 24 hours): 10/30/18 10/30/18 10/30/18 10:44 16:25 20:35 POC Glucose 151 H 139 H 147 H 10/31/18 06:59 POC Glucose 148 H OUTPATIENT ANTIDIABETIC REGIMEN: * 70/30 95 units QAM; 65 units QPM * A1c = 7.3% 10/25/18 ASSESSMENT: 10/31 * BSGs well controlled over last 24 hrs, all BSGs within the range of 139-151 * Will continue similar insulin doses today * Fasting BSG slightly higher today than yesterday, yet still acceptable. Will increase basal insulin dose slightly. 10/30 * BSGs at goal over last 24 hrs * Fasting BSG 136-139 this AM with 36 units Lantus on board - will continue * Post-prandial BSGs at goal yesterday using lower prandial insulin doses - will continue 10/29 * Over the last 24 hrs, 64 units of insulin administered in the last 24 hrs while tolerating a diet * BSGs again running a little lower than required * Fasting BSG 81 this AM with 45 units of Lantus on board - will titrate down 20% * Will also lessen Novolog doses today as pt appears to be requiring much less insulin than home regimen provided 10/28 * Over the last 24 hrs, 106 units of SQ insulin administered * Fasting BSG 71 this AM w/ 85 units of Lantus on board; will titrate down dosage * Post-prandial BSGs controlled on 2 of 3 post-prandial checks yesterday * Patient PLAN FOR INPATIENT GLYCEMIC CONTROL: * Hold outpatient oral diabetes medications (70/30 insulin) * Basal insulin (small increase) * Lantus 39 units this AM * Bolus insulin- (no change) * NovoLog per scale ACHS or Q6hrs while NPO * Goal Range: Low 120 mg/dL - High 160 mg/dL * Correction Factor: 20 mg/dL/unit * Nutritional / Prandial insulin per carb ratio of 1 unit per 7 grams CHO consumed PLAN FOR DISCHARGE: * Inpatient insulin doses are much lower than out-pt doses. A1c 7.3% is near goal. If patient was compliant with out-pt regimen and his lifestyle / dietary habits can account for higher insulin needs, may resume home dosage.
[2018-10-31 09:52] LABS: BUN Creatinine Ratio 29.2 (10-20); Calcium 8.4 mg/dl (8.5-10.1); Creatinine Clr Calc Pharmacy 103.1 ml/min; Est GFR (African American) 66.2; Est GFR (Non-African American) 57.1; Potassium 4.8 mmol/L (3.5-5.1)
--- NOTE | 2018-10-31 10:09 | Hospitalist Progress Note ---
Date of Service October 31, 2018 Assessment & Plan (1) COPD exacerbation: Persistent hypoxia, suspect COPD exacerbation contributing with increased sputum purulence, sputum amount and significant wheezing. Not as improved on abx as I would have expected at this point if simply pneumonia contributing. Start Solumedrol and scheduled bronchodilators. Appreciate pulmonary input. (2) Acute respiratory failure with hypoxia and hypercapnia: 2/2 pneumonia and CHF exacerbation in setting of morbid obesity and uncontrolled SAFIA. Cont CPAP while hospitalized. Appreciate Pulm recs and help with getting CPAP back in the home again at discharge. EDAC seen on bronch. Augmentin for H flu pneumonia. Cont diuresis and fluid restriction for volume overloaded state. Steroids and bronchodilators added per number one above. (3) Acute on chronic diastolic (congestive) heart failure: diuretics, fluid restriction. Cards consult (4) Pneumonia: Augmentin, improved. (5) Elevated troponin I level: likely 2/2 demand ischemia. Cont ASA and statin per Cards recs. (6) Hypertensive urgency: More uncontrolled today in the 160s systolic. Plan to add steroids which might drive it up more. Cont Norvasc 10, prazosin and increase lisinopril to 20mg PO BID. It is noted that topical nitrates were removed yesterday (7) SAFIA (obstructive sleep apnea): CPAP qHS and PRN (8) Morbid obesity: counseling on weight loss Diet and exercised as tolerated Adarsh lift ordered to help mobilize patient OOB to chair. (9) Diabetes: at goal, cont basal/bolus insulin. Glycemic pharmacist consult added in setting of additional steroids. (10) Tobacco abuse: strongly advised to quit smoking, currently on the nicotine patch. Pt verbalized intent to quit smoking. (11) DVT prophylaxis: Lovenox 40mg PO BID Full Code Dispo-may need SNF, several more days in the hospital. OK to be discharged when hypoxia is resolved and there is a safe plan in place. Fatimah Rowland, [facility] Hospitalist Subjective still coughing sputum purulence increased sputum production still requiring oxygen good PO intake still not mobile but appears stronger to sit up on his own Review of Systems 2 Review of Systems: All systems reviewed & are unremarkable except as noted in HPI & below Physical Exam Physical Exam: CONSTITUTIONAL: morbid obesity, vitals as above, generally well-appearing, alert EYES: normal conjuctivae, no scleral icterus ENT: MMM RESPIRATORY: wheezing throughout all lung durant, normal respiratory effort CARDIOVASCULAR: regular rate and rhythm, S1 and 2 heard without murmurs, gallops or rubs, distant heart sounds 2/2 body habitus, no JVD, trace peripheral edema GASTROINTESTINAL: large protuberant abdomen, soft, nontender, nondistended. MUSCULOSKELETAL: generalized weakness and deconditioning, head is normocephalic and atraumatic SKIN: warm and dry NEUROLOGIC: no gross focal deficits. PSYCHIATRIC: alert cooperative and oriented to person, place and time. Results & Data Vital Signs (Past 12 Hours) Vital Signs Temp Pulse Pulse Resp BP BP Pulse Ox 10/31/18 07:12 36.3 C L 69 20 141/65 H 93 10/31/18 07:08 36.6 C 60 16 156/47 H 91 10/31/18 04:00 36.5 C 63 16 125/58 L 96 10/31/18 01:44 68 20 95 10/30/18 23:33 37.0 C 67 16 153/59 H 95 10/30/18 22:21 [address] [facility] 10/31/18 09:18 Sodium 140 Potassium 4.8 Chloride 99 Carbon Dioxide 40 H BUN 38 H Creatinine 1.31 Glucose 187 H Calcium 8.4 L Medications Administered Current Inpatient Medications Albuterol (Duoneb) 3 ml INH Q4H PRN PRN Reason: Dyspnea Stop: 11/23/18 18:03 Last Admin: 10/27/18 11:30 Dose: 3 ml Documented by: Amlodipine Besylate (Norvasc) 10 mg PO QAM [facility] Stop: 11/26/18 08:59 Last Admin: 10/31/18 08:36 Dose: 10 mg Documented by: Amoxicillin/Clavulanate Potassium (Augmentin 875mg) 1 tab PO BIDM [facility]; Protocol Stop: 11/04/18 08:59 Last Admin: 10/31/18 08:36 Dose: 1 tab Documented by: Aspirin (Ecotrin) 325 mg PO DAILY [facility] Stop: 11/25/18 08:59 Last Admin: 10/31/18 08:35 Dose: 325 mg Documented by: Atorvastatin Calcium (Lipitor) 10 mg PO DAILY [facility] Stop: 11/24/18 08:59 Last Admin: 10/31/18 08:36 Dose: 10 mg Documented by: Dextrose (Dextrose 50%) 25 - 50 ml IV UD PRN; Protocol PRN Reason: Hypoglycemia Protocol Stop: 11/23/18 23:16 Docusate Sodium (Colace) 100 mg PO BID PRN PRN Reason: Constipation Stop: 11/23/18 18:03 Enoxaparin Sodium (Lovenox) 40 mg SQ BID [facility] Stop: 11/29/18 22:59 Last Admin: 10/31/18 08:37 Dose: 40 mg Documented by: Famotidine (Pepcid) 20 mg PO BID [facility] Stop: 11/26/18 20:59 Last Admin: 10/31/18 08:35 Dose: 20 mg Documented by: Gabapentin (Neurontin) 100 mg PO BID@0800,1200 [facility] Stop: 11/26/18 11:59 Last Admin: 10/31/18 08:35 Dose: 100 mg Documented by: Gabapentin (Neurontin) 300 mg PO HS [facility] Stop: 11/26/18 20:59 Last Admin: 10/30/18 21:19 Dose: 300 mg Documented by: Glucagon (Glucagen) 1 mg SQ UD PRN; Protocol PRN Reason: Hypoglycemia Protocol Stop: 11/23/18 23:16 Glucose (Dex4 Glucose) 4 - 8 tabs PO UD PRN; Protocol PRN Reason: Hypoglycemia Protocol Stop: 11/23/18 23:16 Glucose (Glucose 40%) 15 - 30 gm PO UD PRN; Protocol PRN Reason: Hypoglycemia Protocol Stop: 11/23/18 23:16 Furosemide 60 mg/ Syringe 6 mls @ 4 mls/min IV TID [facility] Stop: 11/27/18 15:29 Last Admin: 10/31/18 08:36 Dose: 4 mls/min Documented by: Insulin Aspart (Novolog Flexpen) 0 units SQ ACHS [facility] Stop: 11/24/18 15:59 Last Admin: 10/31/18 08:39 Dose: 10 units Documented by: Insulin Glargine (Lantus Solostar Pen) 39 units SC QAM [facility] Stop: 12/01/18 08:59 Levothyroxine Sodium (Synthroid) 50 mcg PO DAILYBB [facility] Stop: 11/24/18 06:29 Last Admin: 10/31/18 06:26 Dose: 50 mcg Documented by: Levothyroxine Sodium (Synthroid) 200 mcg PO DAILYBB [facility] Stop: 11/24/18 06:29 Last Admin: 10/31/18 06:26 Dose: 200 mcg Documented by: Lisinopril (Zestril) 20 mg PO QAM [facility] Stop: 11/25/18 12:29 Last Admin: 10/31/18 08:37 Dose: 20 mg Documented by: Metoprolol Tartrate (Lopressor) 12.5 mg PO BID [facility] Stop: 11/25/18 08:59 Last Admin: 10/31/18 08:34 Dose: 12.5 mg Documented by: Miconazole Nitrate (Desenex) 1 appln EXT BID PRN PRN Reason: AFFECTED SKIN FOLDS Stop: 11/24/18 15:55 Miscellaneous (Carbohydrates For Hypoglycemia) 15 - 30 gm PO UD PRN PRN Reason: Hypoglycemia Treatment Stop: 11/23/18 23:16 Miscellaneous (Remove Nicoderm Patch) 1 ea N/A HS [facility] Stop: 11/24/18 20:59 Last Admin: 10/30/18 21:20 Dose: 1 ea Documented by: Miscellaneous Information (Consult Glycemic Management Pharmacy) 1 ea N/A UD PRN; Protocol PRN Reason: Consult Stop: 11/23/18 23:35 Miscellaneous Information (Consult) 1 ea N/A UD PRN PRN Reason: Consult Stop: 11/29/18 22:52 Nicotine (Nicoderm Cq) 7 mg TD [facility] Stop: 11/24/18 17:29 Last Admin: 10/31/18 08:35 Dose: 7 mg Documented by: Polyethylene Glycol (Miralax Powder Packet) 17 gm PO DAILY PRN PRN Reason: Constipation Prazosin HCl (Prazosin Hcl) 1 mg PO Q8 [facility] Stop: 11/25/18 13:59 Last Admin: 10/31/18 06:27 Dose: 1 mg Documented by: (1) Pneumonia Laterality: left Lung location: unspecified part of lung Pneumonia type: due to unspecified organism Qualified Code(s): J18.9 - Pneumonia, unspecified organism
--- NOTE | 2018-10-31 11:10 | Pharmacy Report ---
Enoxaparin Dosing Consult - Date of Service October 31, 2018 - Pharmacy Dosing Scope Pharmacy is consulted to review the use of enoxaparin in a special risk patient population: morbid obesity. This patient is ordered enoxaparin for DVT PROPHYLAXIS. Pharmacy will order appropriate labs and adjust drug dose/frequency as necessary. - Subjective The patient is a 62 year old M admitted on 10/24/18 16:16 for RESPIRATORY FAILURE. Patient is to receive or is currently on day # 2 of PROPHYLACTIC enoxaparin sub- q Pertinent PMH: * morbid obesity (BMI > 40) * type 2 dm * hypertension * HFpEF - Objective Height: 5 ft 7 in Weight: 220.6 kg Laboratory Results:: Last 24 Hours 10/31/18 09:18 BUN 38 H Creatinine 1.31 - Assessment & Plan Regarding PROPHYLACTIC Enoxaparin: Continue enoxaparin 40 mg sub-q every 12 hours. The optimal dosage for prophylaxis in morbid obesity is unclear. This dosage is recommended empirically by some guidelines based upon clinical experience and analysis of pharmacodynamic and clinical outcomes data. Doses as high as 60mg Q 12 hrs have been used in patients with BMI's > 50 who also have a high-risk of VTE. Labs: * Ongoing Labs (P&T Approved): CBC q 3 days x 2 weeks, serum creat q 3 days We will continue to monitor this patient and make adjustments as needed. Thank you.
[2018-10-31] MEDS: ALBUT/IPRATROP 3MG/0.5MG NEB 3 ML VIAL INH SCH ×2 (19:14→19:17)
[2018-10-31] MEDS ORDERED: PHARMACY GLYCEMIC MGMT CONSULT STA (20:59)
[2018-10-31] MEDS ORDERED: LISINOPRIL 20 MG TAB PO SCH (21:00)
[2018-10-31] MEDS: GABAPENTIN 300 MG CAP PO SCH (21:39)
[2018-10-31] MEDS: methylPREDNISolone 40 MG in SYRINGE 0 ML IV SCH (23:50)
[2018-11-01] MEDS: ALBUT/IPRATROP 3MG/0.5MG NEB 3 ML VIAL INH SCH ×4 (01:50→18:56)
[2018-11-01] MEDS: LEVOTHYROXINE SODIUM 50 MCG TABLET PO SCH (06:04)
[2018-11-01] MEDS: LEVOTHYROXINE SODIUM 200 MCG TABLET PO SCH (06:04)
[2018-11-01] MEDS: PRAZOSIN HCL 1 MG CAP PO SCH ×3 (06:04→20:16)
[2018-11-01] MEDS: methylPREDNISolone 40 MG in SYRINGE 0 ML IV SCH ×4 (06:04→23:32)
[2018-11-01 06:37] LABS: Hematocrit (blood only) 36.3 % (42-52); Hemoglobin 11.9 g/dL (14.0-18.0); Mean Corpuscular Hgb Conc 32.8 g/dL (32-36); Mean Corpuscular Volume 96.3 fL (80-100); Mean Platelet Volume 10.1 fL (7.4-10.4); Platelet Count 142 K/uL (130-400); RDW Standard Deviation 52.7 fL (36.4-46.3); Red Blood Count 3.77 M/uL (4.7-6.1); White Blood Count 6.42 K/uL (4.8-10.8)
[2018-11-01 07:19] LABS: BUN Creatinine Ratio 26.8 (10-20); Calcium 8.3 mg/dl (8.5-10.1); Creatinine Clr Calc Pharmacy 100.3 ml/min; Est GFR (Non-African American) 56.1; Potassium 5.8 mmol/L (3.5-5.1)
[2018-11-01] MEDS: INSULIN ASPART 100 UNITS/ML 3 ML PEN SQ SCH ×4 (08:21→20:19)
[2018-11-01] MEDS: INSULIN GLARGINE SOLOSTAR 100 UNITS/ML 3 ML PEN SC SCH (08:23)
[2018-11-01] MEDS: GABAPENTIN 100 MG CAP PO SCH ×2 (08:26→11:55)
[2018-11-01] MEDS: ASPIRIN 325 MG ECTAB PO SCH (08:26)
[2018-11-01] MEDS: AMOXICILLIN/CLAVULANATE 875 MG TAB PO SCH ×2 (08:26→17:11)
[2018-11-01] MEDS: ATORVASTATIN 10 MG TAB PO SCH (08:27)
[2018-11-01] MEDS: METOPROLOL TARTRATE 25 MG TAB PO SCH ×2 (08:27→20:13)
[2018-11-01] MEDS: FUROSEMIDE 60 MG in SYRINGE 0 ML IV SCH (08:27)
[2018-11-01] MEDS: NICOTINE 7 MG/24 HR TDSY TD SCH (08:28)
[2018-11-01] MEDS: ENOXAPARIN INJ 40 MG/0.4 ML SYR SQ SCH ×2 (08:28→20:11)
[2018-11-01] MEDS: FAMOTIDINE 20 MG TAB PO SCH ×2 (08:30→20:14)
[2018-11-01] MEDS: AMLODIPINE BESYLATE 5 MG TAB PO SCH (08:30)
--- NOTE | 2018-11-01 08:54 | Hospitalist Progress Note ---
Date of Service November 01, 2018 Assessment & Plan (1) Hyperkalemia: 2/2 increased lisinopril overnight, treated with Ca, insulin, repat resolved to 5.5. ACEI held. (2) Hypoxia: Likely multifactoiral including CHF exacerbation, COPD exacerbation, and pneumonia. Cont solumedrol, bronchodilators, abx, and diuretics. (3) Acute respiratory failure with hypoxia and hypercapnia: (4) Acute on chronic diastolic (congestive) heart failure: diuretics, fluid restriction. Cards consult (5) Pneumonia: Augmentin, improved. (6) Elevated troponin I level: likely 2/2 demand ischemia. Cont ASA and statin per Cards recs. (7) Hypertensive urgency: Lisinopril placed on hold in setting of acute hyperkalemia. (8) SAFIA (obstructive sleep apnea): CPAP qHS and PRN (9) Morbid obesity: counseling on weight loss Diet and exercised as tolerated Adarsh lift ordered to help mobilize patient OOB to chair. (10) Diabetes: at goal, cont basal/bolus insulin. Glycemic pharmacist consult added in setting of additional steroids. (11) Tobacco abuse: strongly advised to quit smoking, currently on the nicotine patch. Pt v erbalized intent to quit smoking. (12) DVT prophylaxis: Lovenox 40mg PO BID Full Code Dispo-may need SNF, several more days in the hospital. OK to be discharged when hypoxia is resolved and there is a safe plan in place. Fatimah Rowland DO [facility] Hospitalist Subjective was able to get OOB to chair several times overnight wheezing still present but improved +coughing productive afebrile, no chills tolerating PO denies other symptoms feels swelling is improved Review of Systems Review of Systems: All systems reviewed & are unremarkable except as noted in HPI & below Physical Exam Physical Exam: CONSTITUTIONAL: morbid obesity, vitals as above, generally well-appearing, alert EYES: normal conjunctivae, no scleral icterus ENT: MMM RESPIRATORY: wheezing throughout all lung durant appears improved, normal respiratory effort CARDIOVASCULAR: regular rate and rhythm, S1 and 2 heard without murmurs, gallops or rubs, distant heart sounds 2/2 body habitus, no JVD, trace peripheral edema GASTROINTESTINAL: large protuberant abdomen, soft, nontender, nondistended. MUSCULOSKELETAL: generalized weakness and deconditioning, head is normocephalic and atraumatic SKIN: warm and dry NEUROLOGIC: no gross focal deficits. PSYCHIATRIC: alert cooperative and oriented to person, place and time. Results & Data Vital Signs (Past 12 Hours) Vital Signs Temp Pulse Pulse Resp BP Pulse Ox 11/01/18 07:11 55 L 14 92 11/01/18 07:03 37.1 C 59 L 17 146/53 H 93 11/01/18 02:35 36.6 C 64 16 152/59 H 93 11/01/18 01:50 61 61 18 95 10/31/18 23:48 37.5 C 65 16 141/54 H 92 10/31/18 22:28 64 15 95 Laboratory Results Short CBC 11/01/18 Range/Units 06:27 WBC 6.42 (4.8-10.8) K/uL Hgb 11.9 L (14.0-18.0) g/dL Hct 36.3 L (42-52) % Plt Count 142 (130-400) K/uL BMP 10/31/18 11/01/18 09:18 06:27 Sodium 140 135 L Potassium 4.8 5.8 H D Chloride 99 97 L Carbon Dioxide 40 H 37 H BUN 38 H 36 H Creatinine 1.31 1.33 Glucose 187 H 233 H Calcium 8.4 L 8.3 L Medications Administered Current Inpatient Medications Albuterol (Duoneb) 3 ml INH Q6R [facility] Stop: 11/30/18 18:44 Last Admin: 11/01/18 07:10 Dose: 3 ml Documented by: Amlodipine Besylate (Norvasc) 10 mg PO QAM [facility] Stop: 11/26/18 08:59 Last Admin: 11/01/18 08:30 Dose: 10 mg Documented by: Amoxicillin/Clavulanate Potassium (Augmentin 875mg) 1 tab PO BIDM [facility]; Protocol Stop: 11/04/18 08:59 Last Admin: 11/01/18 08:26 Dose: 1 tab Documented by: Aspirin (Ecotrin) 325 mg PO DAILY [facility] Stop: 11/25/18 08:59 Last Admin: 11/01/18 08:26 Dose: 325 mg Documented by: Atorvastatin Calcium (Lipitor) 10 mg PO DAILY [facility] Stop: 11/24/18 08:59 Last Admin: 11/01/18 08:27 Dose: 10 mg Documented by: Dextrose (Dextrose 50%) 25 - 50 ml IV UD PRN; Protocol PRN Reason: Hypoglycemia Protocol Stop: 11/23/18 23:16 Docusate Sodium (Colace) 100 mg PO BID PRN PRN Reason: Constipation Stop: 11/23/18 18:03 Enoxaparin Sodium (Lovenox) 40 mg SQ BID [facility] Stop: 11/29/18 22:59 Last Admin: 11/01/18 08:28 Dose: 40 mg Documented by: Famotidine (Pepcid) 20 mg PO BID [facility] Stop: 11/26/18 20:59 Last Admin: 11/01/18 08:30 Dose: 20 mg Documented by: Gabapentin (Neurontin) 100 mg PO BID@0800,1200 [facility] Stop: 11/26/18 11:59 Last Admin: 11/01/18 08:26 Dose: 100 mg Documented by: Gabapentin (Neurontin) 300 mg PO HS [facility] Stop: 11/26/18 20:59 Last Admin: 10/31/18 21:39 Dose: 300 mg Documented by: Glucagon (Glucagen) 1 mg SQ UD PRN; Protocol PRN Reason: Hypoglycemia Protocol Stop: 11/23/18 23:16 Glucose (Dex4 Glucose) 4 - 8 tabs PO UD PRN; Protocol PRN Reason: Hypoglycemia Protocol Stop: 11/23/18 23:16 Glucose (Glucose 40%) 15 - 30 gm PO UD PRN; Protocol PRN Reason: Hypoglycemia Protocol Stop: 11/23/18 23:16 Furosemide 60 mg/ Syringe 6 mls @ 4 mls/min IV TID [facility] Stop: 11/27/18 15:29 Last Admin: 11/01/18 08:27 Dose: 4 mls/min Documented by: Methylprednisolone 40 mg/ (Syringe) 0.64 mls @ 1.5 mls/min IV Q6 [facility] Stop: 12/01/18 00:00 Last Admin: 11/01/18 06:04 Dose: 1.5 mls/min Documented by: Insulin Aspart (Novolog Flexpen) 0 units SQ ACHS [facility] Stop: 11/24/18 15:59 Last Admin: 11/01/18 08:21 Dose: 28 units Documented by: Insulin Glargine (Lantus Solostar Pen) 0 units SC QAM [facility]; Protocol Stop: 12/01/18 08:59 Last Admin: 11/01/18 08:23 Dose: 70 units Documented by: Levothyroxine Sodium (Synthroid) 50 mcg PO DAILYBB [facility] Stop: 11/24/18 06:29 Last Admin: 11/01/18 06:04 Dose: 50 mcg Documented by: Levothyroxine Sodium (Synthroid) 200 mcg PO DAILYBB [facility] Stop: 11/24/18 06:29 Last Admin: 11/01/18 06:04 Dose: 200 mcg Documented by: Lisinopril (Zestril) 20 mg PO BID [facility] Stop: 11/30/18 20:59 Last Admin: 10/31/18 21:40 Dose: 20 mg Documented by: Metoprolol Tartrate (Lopressor) 12.5 mg PO BID [facility] Stop: 11/25/18 08:59 Last Admin: 11/01/18 08:27 Dose: 12.5 mg Documented by: Miconazole Nitrate (Desenex) 1 appln EXT BID PRN PRN Reason: AFFECTED SKIN FOLDS Stop: 11/24/18 15:55 Miscellaneous (Carbohydrates For Hypoglycemia) 15 - 30 gm PO UD PRN PRN Reason: Hypoglycemia Treatment Stop: 11/23/18 23:16 Miscellaneous (Remove Nicoderm Patch) 1 ea N/A HS [facility] Stop: 11/24/18 20:59 Last Admin: 10/31/18 21:40 Dose: 1 ea Documented by: Miscellaneous Information (Consult Glycemic Management Pharmacy) 1 ea N/A UD PRN; Protocol PRN Reason: Consult Stop: 11/23/18 23:35 Miscellaneous Information (Consult) 1 ea N/A UD PRN PRN Reason: Consult Stop: 11/29/18 22:52 Nicotine (Nicoderm Cq) 7 mg TD QAM [facility] Stop: 11/24/18 17:29 Last Admin: 11/01/18 08:28 Dose: 7 mg Documented by: Polyethylene Glycol (Miralax Powder Packet) 17 gm PO DAILY PRN PRN Reason: Constipation Prazosin HCl (Prazosin Hcl) 1 mg PO Q8 [facility] Stop: 11/25/18 13:59 Last Admin: 11/01/18 06:04 Dose: 1 mg Documented by: (1) Pneumonia Laterality: left Lung location: unspecified part of lung Pneumonia type: due to unspecified organism Qualified Code(s): J18.9 - Pneumonia, unspecified organism
[2018-11-01] MEDS ORDERED: INSULIN GLARGINE SOLOSTAR 100 UNITS/ML 3 ML PEN SC SCH (09:00)
[2018-11-01 09:12] LABS: BUN Creatinine Ratio 26.1 (10-20); Calcium 8.7 mg/dl (8.5-10.1); Creatinine Clr Calc Pharmacy 95.9 ml/min; Est GFR (African American) 61.6; Est GFR (Non-African American) 53.2; Potassium 5.9 mmol/L (3.5-5.1)
--- NOTE | 2018-11-01 09:34 | Pharmacy Report ---
Pharmacy Glycemic Short Note 2 - Date of Service November 01, 2018 - Glycemic Short BSG Results (Last 24 hours): 10/31/18 10/31/18 10/31/18 09:18 11:07 16: Glucose 187 H POC Glucose 179 H 148 H 10/31/18 11/01/18 11/01/18 20:55 06:27 07:06 Glucose 233 H POC Glucose 158 H 249 H 11/01/18 08:43 Glucose 292 H POC Glucose OUTPATIENT ANTIDIABETIC REGIMEN: * 70/30 95 units QAM; 65 units QPM * A1c = 7.3% 10/25/18 ASSESSMENT: 11/01 * BSG control has worsened in the setting of steroids added overnight (1st dose at midnight) * Based on previous data when on steroids, anticipating that insulin needs will be anywhere from 100-120 units/day (probably closer to 120 units with po intake) * ICU pharmacist has already increased basal insulin dose this AM. Will continue this for now since we are already behind with steroids starting overnight. For tomorrow, will decrease the scaled dose to provide closer to 40% (50 units) of est TDD so that more can be given from prandial insulin. * CF/CR has already been tightened aggressively as well, which is consistent with requirements while steroids on board. Will plan to tighten goal range as patient is not critically ill and will allow for more correctional insulin. * Update from lunch BSG: this remains in the 250 mg/dL range but has NOT increased from this AM, indicating that the carb ratio is appropriate. Will tighten CF further to bring BSGs down to goal range. Patient was given a significantly higher dose of Lantus just this AM so I anticipate BSGs improving. 10/31 * BSGs well controlled over last 24 hrs, all BSGs within the range of 139-151 * Will continue similar insulin doses today * Fasting BSG slightly higher today than yesterday, yet still acceptable. Will increase basal insulin dose slightly. 10/30 * BSGs at goal over last 24 hrs * Fasting BSG 136-139 this AM with 36 units Lantus on board - will continue * Post-prandial BSGs at goal yesterday using lower prandial insulin doses - will continue 10/29 * Over the last 24 hrs, 64 units of insulin administered in the last 24 hrs while tolerating a diet * BSGs again running a little lower than required * Fasting BSG 81 this AM with 45 units of Lantus on board - will titrate down 20% * Will also lessen Novolog doses today as pt appears to be requiring much less insulin than home regimen provided 10/28 * Over the last 24 hrs, 106 units of SQ insulin administered * Fasting BSG 71 this AM w/ 85 units of Lantus on board; will titrate down dosage * Post-prandial BSGs controlled on 2 of 3 post-prandial checks yesterday * Patient PLAN FOR INPATIENT GLYCEMIC CONTROL: * Basal insulin (larger dose this AM to make up for steroids starting overnight, then back off tomorrow to be closer to 40% of est TDD) * Lantus this AM per the following scale: * 40 units for BSG < 100 * 50 units for BSG 100-140 * 60 units for BSG 141-180 * 70 units for BSG > 180 * Starting 11/02, Lantus qAM per the following scale: * 40 units for BSG < 100 * 50 units for BSG 100 - 180 * 60 units for BSG > 180 * Bolus insulin- (tighten CF, CR and goal range) ADA & AACE recommend a goal blood sugar range 140-180 mg/dl for the majority of critically ill & non- critically ill patients. However, more stringent targets may be selected in individual cases. Will utilize more stringent goal of 110-140 mg/dl based on patient age & comorbidities. Additionally, tighter glycemic control is warran melvin to facilitate wound/infection healing. * NovoLog per scale ACHS + 0200 check to allow for more correctional insulin if necessary * Goal Range: Low 110 mg/dL - High 140 mg/dL * Correction Factor: 8 mg/dL/unit * Nutritional / Prandial insulin per carb ratio of 1 unit per 4 grams CHO consumed PLAN FOR DISCHARGE: * Inpatient insulin doses are much lower than out-pt doses. A1c 7.3% is near goal. If patient was compliant with out-pt regimen and his lifestyle / dietary habits can account for higher insulin needs, may resume home dosage.
[2018-11-01] MEDS ORDERED: NovoLIN-R INSULIN PER UNIT CHARGE IV STA (09:44)
[2018-11-01] MEDS ORDERED: CALCIUM GLUCONATE 10% 2,000 MG in SODIUM CHLORIDE 0.9% 50 ML IV ONE (10:00)
[2018-11-01] MEDS ORDERED: DEXTROSE 50% 50 ML SYRINGE IV ONE (10:30)
[2018-11-01] MEDS ORDERED: INSULIN HUMAN REGULAR PER UNIT 10 UNITS in SYRINGE 9.9 ML IV ONE (10:40)
--- NOTE | 2018-11-01 11:55 | Cardiology Progress Note ---
Date of Service November 01, 2018 Assessment & Plan (1) Acute on chronic diastolic (congestive) heart failure: Reduce Lasix to 60 mg twice daily. Treatment of hyperkalemia as per internal medicine service. Recommend repeat basic metabolic panel this afternoon prior to giving additional Lasix. TJ inhibitor will be placed on hold. Avoid potassium supplementation. Monitor closely for signs symptoms of recurrent CO2 retention. (2) Hyperkalemia: Likely precipitated by titration of TJ inhibitor 10/31/2018. Hold lisinopril at this time. Treatment with IV insulin, also gluconate, Kayexalate per internal medicine. (3) Acute respiratory failure with hypoxia and hypercapnia: Continue BiPAP and cautious diuresis. Recommend pulmonary consultation. (4) Hypertensive urgency: Blood pressure improved. Discontinue topical nitrates. Hold lisinopril secondary to hyperkalemia. Continue beta-kate as previously ordered. (5) Elevated troponin I level: Type II event related to acute hypoxic respiratory failure in the setting of mucous plugging, acute decompensated diastolic heart failure, and hypertensive urgency. Continue aspirin and statin therapy as previously ordered. (6) Left bundle branch block: Chronic finding. (7) Hyperkalemia: Resolved. Monitor. (8) Morbid obesity: Subjective Patient seen and examined. Seated in bedside chair. Fluid balance negative 3 L yesterday. Creatinine trending upward with hyperkalemia. Denies chest pain or palpitations. No dysrhythmias on telemetry. Review of Systems Review of Systems: All systems reviewed & are unremarkable except as noted in HPI & below Physical Exam Physical Exam: General: NAD, AAO x3, chronically ill, morbid obesity. HEENT: normocephalic. Atraumatic. Conjunctiva pink, no scleral icterus. Neck: No carotid bruits, the carotid upstrokes are brisk. No JVD. No HJR Heart: Regular normal S-1 and S-2 no S-3 or S-4 gallop. No murmurs or rub appreciated. PMI is not displaced. No RV heave. Lungs: Coarse breath sounds bilaterally, no rales or wheeze. Abdomen: 2+ pitting edema of the pannus. Normal bowel sounds. Soft. Nontender. No masses or organomegaly. No abdominal bruits. Extremities: 2+ pitting edema pulses: radial=2/4, Dorsalis pedis =2/4, posterior tibial=2/4. Neuro: Cranial nerves grossly intact. No focal motor deficit. Results & Data Vital Signs (Past 12 Hours) Vital Signs Temp Pulse Pulse Resp BP BP Pulse Ox 11/01/18 11:37 37.2 C 90 20 141/66 H 93 11/01/18 11:17 92 11/01/18 07:11 55 L 14 92 11/01/18 07:03 37.1 C 59 L 17 146/53 H 93 11/01/18 02:35 36.6 C 64 16 152/59 H 93 11/01/18 01:50 61 61 18 95
[2018-11-01 12:59] LABS: BUN Creatinine Ratio 24.2 (10-20); Calcium 8.9 mg/dl (8.5-10.1); Creatinine Clr Calc Pharmacy 87.2 ml/min; Est GFR (African American) 54.9; Est GFR (Non-African American) 47.4; Potassium 5.5 mmol/L (3.5-5.1)
--- NOTE | 2018-11-01 15:48 | Pulmonary Consultation ---
Date of Consultation November 01, 2018 Assessment & Plan (1) Acute respiratory failure with hypoxia and hypercapnia: Impression: 1. Acute on chronic hypoxic and hypercapnic respiratory failure. 2. CHF exacerbation, diastolic type. 3. Morbid obesity, declined bariatric surgery. 4. Obstructive sleep apnea, noncompliant with CPAP or BiPAP, not using either. 5. COPD, difficult to determine his goal levels. Stop using inhalers as he did not feel any benefit from them. 6. I will see the patient has noncompliance issues. 7. Chronic kidney disease. 8. Diabetes mellitus. 9. Hypertension. 10. H. influenzae pneumonia, treated. Plan: 1. Aggressive diuresis. 2. Watch for the BUN/creatinine. 3. Patient education about the need for inhalers at home, the patient is willing to try again to use them. 4. Change Solu-Medrol to prednisone 60 mg p.o. daily in a.m. for total of 7 days and then stop it, no need for taper. 5. Continue bronchodilators and add long-acting beta agonist such as Symbicort. Thank you for your kind referral, discussed with Dr. Rowland, appreciate it. History of Present Illness Reason for Consultation: Chronic respiratory failure Requesting Physician: Dr. Rowland Attending Physician: Fatimah Rowland, DO History of Present Illness Dear Dr. Rowland: Thank you for your kind referral Mr. Douglass. This is 62-year-old gentleman with morbid obesity, BMI more than 50, history of active smoking up until this admission 9 days ago, history of diastolic heart failure, obstructive sleep apnea not using his CPAP or BiPAP which she has been prescribed in the past, chronic hypoxic and hypercapnic respiratory failure, hypertension, diabetes, hy pothyroidism, presented to the hospital 8 days ago with increasing shortness of breath and found to have atelectasis of the left lung, the patient did require intubation. Underwent a bronchoscopy which showed H. influenzae at that time. The patient was extubated successfully and transferred to the regular floor. Patient was fluid overloaded and treated also with aggressive diuresis. When I interviewed the patient, he claims that he did have sleep study in the past where he was prescribed CPAP where he return it and then a BiPAP that he did not want to use. He has not been on trilogy in the past. The patient also stopped taking his Lasix 2 weeks prior to his presentation this time. He was intubated once before because of respiratory failure. He denies any chest pain, he does have shortness of breath even with minimal exertion. He does have orthopnea no heartburn no nausea or vomiting. Is swelling in his lower extremities has been increasing since he stopped taking the Lasix. Currently he claimed that he has been feeling fine. In questioning him whether he has been seen by bariatric surgery, he claims that he does not want a surgical intervention, and he want to lose weight on his own. It appeared to me that the patient also prescribed inhalers in the past which he did not use properly as well and stop using them, according to him he did not feel any difference. He continues to smoke cigarettes up until this admission. 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 Allergies Allergy/AdvReac Type Severity Reaction Status Date / Time No Known Allergies Allergy Verified 06/02/16 11:34 Home Medications Home Medications Medication Instructions Recorded Confirmed Type amlodipine 2.5 mg PO DAILY 10/24/18 10/24/18 History aspirin 325 mg PO DAILY 10/24/18 10/24/18 History atorvastatin 10 mg PO DAILY 10/24/18 10/24/18 History fluticasone propionate 2 spray INTRANASAL DAILY 10/24/18 10/24/18 History furosemide 40 mg PO BID 10/24/18 10/24/18 History gabapentin 100 mg PO UD 10/24/18 10/24/18 History insulin NPH and regular human 65 unit SUBCUT PM 10/24/18 10/24/18 History [Novolin 70/30 U-100 Insulin] insulin NPH and regular human 95 unit SUBCUT QAM 10/24/18 10/24/18 History [Novolin 70/30 U-100 Insulin] levothyroxine 25 mcg PO DAILY 10/24/18 10/24/18 History levothyroxine 200 mcg PO DAILY 10/24/18 10/24/18 History metoprolol succinate 25 mg PO DAILY 10/24/18 10/24/18 History omeprazole magnesium [Prilosec OTC] 10 mg PO DAILY 10/24/18 10/24/18 History Patient History Medical History Diabetes (Chronic) Hypertension (Chronic) Hypothyroidism (Chronic) COPD (chronic obstructive pulmonary disease) (Chronic) Chronic diastolic heart failure (Chronic) Morbid obesity (Chronic) SAFIA (obstructive sleep apnea) (Chronic) Obesity hypoventilation syndrome (Chronic) Tobacco abuse (Chronic) Graves disease Surgical History S/P correction of deviated nasal septum Family History Mother Diabetes Hypertension Brother , dies at 44 yo from [place] Heart disease Social History Preferred Language: [place] Citizen Communication Ability: Unable 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 Physical Exam 2 Physical Exam: Severely morbidly obese, BMI more than 50, does not appear to be in respiratory distress, his vital signs are stable except for slight elevation in his blood pressure, O2 saturations 96% on 4 L, no fever, no JVD, his oral exam showed MallamPatti class IV, S1-S2, diminished breath sounds bilaterally, abdomen is morbidly obese, 4+ edema in the periphery. Multiple skin excoriation. Awake and alert, no visual disturbances, neurologically he is nonfocal. Results & Data Vital Signs (Past 12 Hours) Vital Signs Temp Pulse Resp BP BP Pulse Ox 11/01/18 13:47 62 16 96 11/01/18 11:37 37.2 C 90 20 141/66 H 93 11/01/18 11:17 92 11/01/18 07:11 55 L 14 92 11/01/18 07:03 37.1 C 59 L 17 146/53 H 93 Laboratory Results Labs were reviewed which showed no leukocytosis, stable hematocrit, BUN and creatinine within his baseline although slightly elevated from admission time. Diagnostic Findings I have reviewed his chest x-ray on admission which showed complete nadia out left lung, and bilateral pleural effusion with severe pulmonary vascular congestion. According to cardiology note, the patient did have diastolic heart failure.
[2018-11-01] MEDS: GABAPENTIN 300 MG CAP PO SCH (20:14)
[2018-11-01] MEDS: BUDESONIDE/FORMOTEROL FUMARATE 160/4.5 60 PUFFS/INHALER INH SCH (20:15)
[2018-11-01] MEDS ORDERED: FUROSEMIDE 60 MG in SYRINGE 0 ML IV SCH (21:00)
[2018-11-01 23:29] LABS: Hematocrit (blood only) 36.6 % (42-52); Hemoglobin 11.9 g/dL (14.0-18.0)
[2018-11-02] MEDS ORDERED: INSULIN ASPART 100 UNITS/ML 3 ML PEN SQ SCH (02:00)
[2018-11-02] MEDS: ALBUT/IPRATROP 3MG/0.5MG NEB 3 ML VIAL INH SCH ×4 (02:07→19:14)
[2018-11-02 06:01] LABS: Hematocrit (blood only) 36.2 % (42-52); Hemoglobin 11.6 g/dL (14.0-18.0); Mean Corpuscular Volume 97.1 fL (80-100); Mean Platelet Volume 10.5 fL (7.4-10.4); Platelet Count 157 K/uL (130-400); RDW Standard Deviation 53.3 fL (36.4-46.3); Red Blood Count 3.73 M/uL (4.7-6.1); White Blood Count 10.96 K/uL (4.8-10.8)
[2018-11-02 06:39] LABS: BUN Creatinine Ratio 30.9 (10-20); Calcium 8.6 mg/dl (8.5-10.1); Creatinine Clr Calc Pharmacy 98.1 ml/min; Est GFR (African American) 63.3; Est GFR (Non-African American) 54.6; Magnesium 2.4 mg/dl (1.8-2.4)
[2018-11-02] MEDS: PRAZOSIN HCL 1 MG CAP PO SCH ×3 (06:39→21:29)
[2018-11-02] MEDS: LEVOTHYROXINE SODIUM 50 MCG TABLET PO SCH (06:39)
[2018-11-02] MEDS: LEVOTHYROXINE SODIUM 200 MCG TABLET PO SCH (06:39)
[2018-11-02] MEDS: methylPREDNISolone 40 MG in SYRINGE 0 ML IV SCH (06:39)
[2018-11-02] MEDS: INSULIN ASPART 100 UNITS/ML 3 ML PEN SQ SCH ×4 (08:59→21:26)
[2018-11-02] MEDS: AMOXICILLIN/CLAVULANATE 875 MG TAB PO SCH ×2 (08:59→17:17)
[2018-11-02] MEDS: GABAPENTIN 100 MG CAP PO SCH ×2 (09:00→11:55)
[2018-11-02] MEDS: ASPIRIN 325 MG ECTAB PO SCH (09:00)
[2018-11-02] MEDS: INSULIN GLARGINE SOLOSTAR 100 UNITS/ML 3 ML PEN SC SCH (09:01)
[2018-11-02] MEDS: ATORVASTATIN 10 MG TAB PO SCH (09:01)
[2018-11-02] MEDS: METOPROLOL TARTRATE 25 MG TAB PO SCH ×2 (09:02→21:30)
[2018-11-02] MEDS: ENOXAPARIN INJ 40 MG/0.4 ML SYR SQ SCH ×2 (09:02→21:28)
[2018-11-02] MEDS: NICOTINE 7 MG/24 HR TDSY TD SCH (09:03)
[2018-11-02] MEDS: BUDESONIDE/FORMOTEROL FUMARATE 160/4.5 60 PUFFS/INHALER INH SCH ×2 (09:04→21:29)
[2018-11-02] MEDS: AMLODIPINE BESYLATE 5 MG TAB PO SCH (09:04)
[2018-11-02] MEDS: FAMOTIDINE 20 MG TAB PO SCH ×2 (09:04→21:28)
--- NOTE | 2018-11-02 09:46 | Pulmonology Progress Note ---
Date of Service November 02, 2018 Assessment & Plan (1) Acute respiratory failure with hypoxia and hypercapnia: Impression: 1. Acute on chronic hypoxic and hypercapnic respiratory failure. 2. CHF exacerbation, diastolic type. 3. Morbid obesity, declined bariatric surgery. 4. Obstructive sleep apnea, noncompliant with CPAP or BiPAP, not using either. 5. COPD, difficult to determine his goal levels. Stop using inhalers as he did not feel any benefit from them. 6. I will see the patient has noncompliance issues. 7. Chronic kidney disease. 8. Diabetes mellitus. 9. Hypertension. 10. H. influenzae pneumonia, treated. Plan: 1. Continue diuresis as you are doing. 2. Renal function remains stable. 3. The patient agreed to use Symbicort 2 puffs twice daily, in addition to DuoNeb in the nebulizer, he does have a nebulizer but he does not have the medicine. 4. Change steroids to prednisone 60 mg p.o. daily. 5. He would benefit from bariatric surgery consult. 6. Counseling regarding smoking cessation. discussed with Dr. Rowland, appreciate it. Thank you, will follow as needed. Subjective Denies any chest pain, no shortness of breath, he was wearing the BiPAP overnight according to him off and on, no new symptoms. No events overnight. Review of Systems Review of Systems: Review of system otherwise was unremarkable. Physical Exam Physical Exam: Morbidly obese, pressure is elevated, no fever, O2 sats 98%. S1-S2, distant breath sounds bilaterally. Abdomen is obese but benign. Edema in the periphery. Neurologically he is intact. Results & Data Vital Signs (Past 12 Hours) Vital Signs Temp Pulse Pulse Resp BP BP Pulse Ox 11/02/18 07:24 84 18 98 11/02/18 07:23 84 18 98 11/02/18 06:38 149/60 H 11/02/18 03:03 36.6 C 57 L 16 150/71 H 98 11/02/18 02:08 50 L 19 98 11/02/18 00:00 58 L 11/01/18 23:27 37 C 52 L 16 146/70 H 95 11/01/18 22:35 58 L 168/63 H 11/01/18 22:08 56 L 17 95 Laboratory Results CBC is within normal range. BMP is also acceptable at baseline. Diagnostic Findings No new imaging.
[2018-11-02] MEDS: predniSONE 20 MG TAB PO SCH (11:04)
--- NOTE | 2018-11-02 11:36 | Cardiology Progress Note ---
Date of Service November 02, 2018 Assessment & Plan (1) Acute on chronic diastolic (congestive) heart failure: Resume Lasix. Continue to hold lisinopril given difficulties with hyperkalemia, limited benefit in the setting of preserved LV systolic function, right heart failure. Consider resuming nitrates if blood pressure becomes elevated titrate upward of alpha kate (2) Hyperkalemia: Likely precipitated by titration of TJ inhibitor 10/31/2018. Hold lisinopril at this time. (3) Acute respiratory failure with hypoxia and hypercapnia: Continue BiPAP and cautious diuresis. Recommend pulmonary consultation. (4) Hypertensive urgency: Blood pressure improved. Discontinue topical nitrates. Hold lisinopril secondary to hyperkalemia. Continue beta-kate as previously ordered. (5) Elevated troponin I level: Type II event related to acute hypoxic respiratory failure in the setting of mucous plugging, acute decompensated diastolic heart failure, and hypertensive urgency. Continue aspirin and statin therapy as previously ordered. (6) Left bundle branch block: Chronic finding. (7) Morbid obesity: Long-term approach will need to be addressed with increased mobility in hospital to begin including out of bed to chair more frequently Subjective Seen and examined, chart medications telemetry reviewed. No arrhythmias. Patient continues to manifest diuresis. No acute complaints no bleeding difficulties. Was out of bed to chair earlier today and yesterday. Beginning physical therapy using BiPAP at night Review of Systems Review of Systems: As per HPI Physical Exam Constitutional: + morbidly obese Eyes: PERRL, conjunctivae normal, anicteric sclerae ENMT: external ear and nose normal, oropharynx normal Neck: Thick Respiratory: Diminished breath sounds but clear Cardiovascular: Rate/Rhythm: regular rate Distant heart sounds no audible murmur Gastrointestinal (Abdomen): Soft morbidly obese with large panniculus Musculoskeletal: Mild peripheral edema Results & Data Vital Signs (Past 12 Hours) Vital Signs Temp Pulse Pulse Resp BP Pulse Ox 11/02/18 07:24 84 18 98 11/02/18 07:23 84 18 98 11/02/18 06:38 149/60 H 11/02/18 03:03 36.6 C 57 L 16 150/71 H 98 11/02/18 02:08 50 L 19 98 11/02/18 00:00 58 L
--- NOTE | 2018-11-02 12:02 | Hospitalist Progress Note ---
Date of Service November 02, 2018 Assessment & Plan (1) Hyperkalemia: 2/2 ACEI increase, which has been held altogether. Potassium has normalized. (2) Hypoxia: Likely multifactorial including CHF exacerbation, COPD exacerbation, and pneumonia. Wheezing has greatly improved on solumedrol, which was transitioned to prednisone per pulm team. Cont solumedrol, bronchodilators, abx, and diuretics. Lasix was restarted today after an improvement in kidney function seen on bloodwork this am. (3) COPD exacerbation: as above. (4) Acute on chronic diastolic (congestive) heart failure: diuretics, fluid restriction. Cards consult (5) Pneumonia: Augmentin, improved. Completing 7 day course. (6) Elevated troponin I level: likely 2/2 demand ischemia. Cont ASA and statin per Cards recs. (7) Hypertensive urgency: Lisinopril placed on hold in setting of acute hyperkalemia. Will plan to use nitrates or alpha blockers for additional blood pressure control if needed. Avoid ACEI/ARB in setting of hyperkalemia issue. (8) SAFIA (obstructive sleep apnea): CPAP qHS and PRN (9) Morbid obesity: counseling on weight loss Diet and exercised as tolerated Adarsh lift ordered to help mobilize patient OOB to chair which he has been doing several times daily. he reports being on continuous oxygen at home. declined bariatric surgery consult per pulm (10) Diabetes: above goal with inpatient glycemic pharmacist adjusting dosage and scale to get to goal. (11) Tobacco abuse: strongly advised to quit smoking, currently on the nicotine patch. Pt verbalized intent to quit smoking. (12) DVT prophylaxis: Lovenox 40mg PO BID Full Code Dispo-likely ok to go to SNF/rehab on Sunday. Will need continuous oxygen and nightly CPAP. Fatimah Rowland DO [facility] Hospitalist Subjective Mr. Douglass states that he feels well overall, improved since admission. He feels his breathing is at baseline and states he is supposed to be on oxygen continuously 24/7. He feels an improvement in his coughing and there is less wheezing on exam today. He continues to diurese fluids after Lasix was restarted by cardiology this morning when renal function improved on lab work. The patient states that he is excited about turning over new leaf in his life and quitting smoking as well as other lifestyle modifications that need to happen. Review of Systems Review of Systems: All systems reviewed & are unremarkable except as noted in HPI & below Physical Exam Physical Exam: CONSTITUTIONAL: morbid obesity, vitals as above, generally well-appearing, alert, BIPAP in place EYES: normal conjunctivae, no scleral icterus ENT: MMM RESPIRATORY: wheezing just a little in the left lung, clear on the right side, normal respiratory effort CARDIOVASCULAR: regular rate and rhythm, S1 and 2 heard without murmurs, gallops or rubs, distant heart sounds 2/2 body habitus, no JVD, trace peripheral edema GASTROINTESTINAL: large protuberant abdomen, soft, nontender, nondistended. MUSCULOSKELETAL: generalized weakness and deconditioning, head is normocephalic and atraumatic SKIN: warm and dry NEUROLOGIC: no gross focal deficits. PSYCHIATRIC: alert cooperative and oriented to person, place and time. Results & Data Vital Signs (Past 12 Hours) Vital Signs Temp Pulse Pulse Resp BP Pulse Ox 11/02/18 11:43 36.5 C 63 20 140/61 95 11/02/18 07:24 84 18 98 11/02/18 07:23 84 18 98 11/02/18 06:38 149/60 H 11/02/18 03:03 36.6 C 57 L 16 150/71 H 98 11/02/18 02:08 50 L 19 98 Laboratory Results Short CBC 11/01/18 11/02/18 Range/Units 23:14 05:28 WBC 10.96 H (4.8-10.8) K/uL Hgb 11.9 L 11.6 L (14.0-18.0) g/dL Hct 36.6 L 36.2 L (42-52) % Plt Count 157 (130-400) K/uL BMP 11/01/18 11/02/18 12:31 05:28 Sodium 138 135 L Potassium 5.5 H 5.0 Chloride 98 98 Carbon Dioxide 36 H 36 H BUN 37 H 42 H Creatinine 1.53 H 1.36 Glucose 260 H 237 H Calcium 8.9 8.6 Medications Administered Current Inpatient Medications Albuterol (Duoneb) 3 ml INH Q6R CAROL ANN Stop: 11/30/18 18:44 Last Admin: 11/02/18 07:19 Dose: 3 ml Documented by: Amlodipine Besylate (Norvasc) 10 mg PO QAM CAROL ANN Stop: 11/26/18 08:59 Last Admin: 11/02/18 09:04 Dose: 10 mg Documented by: Amoxicillin/Clavulanate Potassium (Augmentin 875mg) 1 tab PO BIDM [facility]; Protocol Stop: 11/04/18 08:59 Last Admin: 11/02/18 08:59 Dose: 1 tab Documented by: Aspirin (Ecotrin) 325 mg PO DAILY [facility] Stop: 11/25/18 08:59 Last Admin: 11/02/18 09:00 Dose: 325 mg Documented by: Atorvastatin Calcium (Lipitor) 10 mg PO DAILY [facility] Stop: 11/24/18 08:59 Last Admin: 11/02/18 09:01 Dose: 10 mg Documented by: Budesonide/Formoterol Fumarate (Symbicort 160mcg/4.5mcg) 2 puffs INH BID [facility] Stop: 12/01/18 20:59 Last Admin: 11/02/18 09:04 Dose: 2 puffs Documented by: Dextrose (Dextrose 50%) 25 - 50 ml IV UD PRN; Protocol PRN Reason: Hypoglycemia Protocol Stop: 11/23/18 23:16 Docusate Sodium (Colace) 100 mg PO BID PRN PRN Reason: Constipation Stop: 11/23/18 18:03 Enoxaparin Sodium (Lovenox) 40 mg SQ BID [facility] Stop: 11/29/18 22:59 Last Admin: 11/02/18 09:02 Dose: 40 mg Documented by: Famotidine (Pepcid) 20 mg PO BID [facility] Stop: 11/26/18 20:59 Last Admin: 11/02/18 09:04 Dose: 20 mg Documented by: Gabapentin (Neurontin) 100 mg PO BID@0800,1200 [facility] Stop: 11/26/18 11:59 Last Admin: 11/02/18 11:55 Dose: 100 mg Documented by: Gabapentin (Neurontin) 300 mg PO HS [facility] Stop: 11/26/18 20:59 Last Admin: 11/01/18 20:14 Dose: 300 mg Documented by: Glucagon (Glucagen) 1 mg SQ UD PRN; Protocol PRN Reason: Hypoglycemia Protocol Stop: 11/23/18 23:16 Glucose (Dex4 Glucose) 4 - 8 tabs PO UD PRN; Protocol PRN Reason: Hypoglycemia Protocol Stop: 11/23/18 23:16 Glucose (Glucose 40%) 15 - 30 gm PO UD PRN; Protocol PRN Reason: Hypoglycemia Protocol Stop: 11/23/18 23:16 Furosemide 40 mg/ Syringe 4 mls @ 4 mls/min IV TID [facility] Stop: 12/02/18 13:59 Insulin Aspart (Novolog Flexpen) 0 units SQ ACHS [facility] Stop: 11/24/18 15:59 Last Admin: 11/02/18 11:55 Dose: 40 units Documented by: Insulin Glargine (Lantus Solostar Pen) 0 units SC QAM [facility]; Protocol Stop: 12/01/18 08:59 Last Admin: 11/02/18 09:01 Dose: 60 units Documented by: [facility]othy[facility]ine [facility]) [facility] Stop: 11/24/18 06:29 Last Admin: 11/02/18 06:39 Dose: 50 mcg Documented by: Levothyroxine Sodium (Synthroid) [facility] Stop: 11/24/18 06:29 Last Admin: 11/02/18 06:39 Dose: 200 mcg Documented by: Lisinopril (Zestril) 20 mg PO BID [facility] Stop: 11/30/18 20:59 Last Admin: 10/31/18 21:40 Dose: 20 mg Documented by: Metoprolol Tartrate (Lopressor) 12.5 mg PO BID [facility] Stop: 11/25/18 08:59 Last Admin: 11/02/18 09:02 Dose: 12.5 mg Documented by: Miconazole Nitrate (Desenex) 1 appln EXT BID PRN PRN Reason: AFFECTED SKIN FOLDS Stop: 11/24/18 15:55 Miscellaneous (Carbohydrates For Hypoglycemia) 15 - 30 gm PO UD PRN PRN Reason: Hypoglycemia Treatment Stop: 11/23/18 23:16 Miscellaneous (Remove Nicoderm Patch) 1 ea N/A HS [facility] Stop: 11/24/18 20:59 Last Admin: 11/01/18 20:15 Dose: 1 ea Documented by: Miscellaneous Information (Consult Glycemic Management Pharmacy) 1 ea N/A UD PRN; Protocol PRN Reason: Consult Stop: 11/23/18 23:35 Miscellaneous Information (Consult) 1 ea N/A UD PRN PRN Reason: Consult Stop: 11/29/18 22:52 Nicotine (Nicoderm Cq) 7 mg TD QAM [facility] Stop: 11/24/18 17:29 Last Admin: 11/02/18 09:03 Dose: 7 mg Documented by: Polyethylene Glycol (Miralax Powder Packet) 17 gm PO DAILY PRN PRN Reason: Constipation Prazosin HCl (Prazosin Hcl) 1 mg PO Q8 [facility] Stop: 11/25/18 13:59 Last Admin: 11/02/18 06:39 Dose: 1 mg Documented by: Prednisone (Prednisone) 60 mg PO DAILY [facility] Stop: 12/02/18 09:59 Last Admin: 11/02/18 11:04 Dose: 60 mg Documented by: (1) Pneumonia Laterality: left Lung location: unspecified part of lung Pneumonia type: due to unspecified organism Qualified Code(s): J18.9 - Pneumonia, unspecified organism
[2018-11-02] MEDS: FUROSEMIDE 40 MG in SYRINGE 0 ML IV SCH ×2 (13:55→21:28)
[2018-11-02] MEDS: GABAPENTIN 300 MG CAP PO SCH (21:30)
[2018-11-03] MEDS: ALBUT/IPRATROP 3MG/0.5MG NEB 3 ML VIAL INH SCH ×4 (01:57→19:26)
[2018-11-03 04:23] LABS: Basophils # (auto) 0.01 K/uL (0-0.2); Basophils % (auto) 0.1 %; Hematocrit (blood only) 36.3 % (42-52); Hemoglobin 12.1 g/dL (14.0-18.0); Immature Granulocytes # (auto) 0.06 K/uL (0.00-0.02); Immature Granulocytes % (auto) 0.6 %; Lymphocytes # (auto) 1.13 K/uL (1.2-3.4); Lymphocytes % (auto) 10.5 %; Mean Corpuscular Hgb Conc 33.3 g/dL (32-36); Mean Platelet Volume 10.2 fL (7.4-10.4); Monocytes # (auto) 0.87 K/uL (0.11-0.59); Monocytes % (auto) 8.1 %; Neutrophils # (auto) 8.69 K/uL (1.4-6.5); Neutrophils % (auto) 80.7 %; Platelet Count 136 K/uL (130-400); RDW Coefficient of Variation 15.2 % (11.5-14.5); RDW Standard Deviation 52.2 fL (36.4-46.3); Red Blood Count 3.82 M/uL (4.7-6.1); White Blood Count 10.76 K/uL (4.8-10.8)
[2018-11-03 04:42] LABS: Albumin Level 2.5 gm/dl (3.4-5.0); BUN Creatinine Ratio 35.9 (10-20); Calcium 8.5 mg/dl (8.5-10.1); Creatinine Clr Calc Pharmacy 102.6 ml/min; Est GFR (African American) 66.8; Est GFR (Non-African American) 57.7; Magnesium 2.4 mg/dl (1.8-2.4); Potassium 5.1 mmol/L (3.5-5.1)
[2018-11-03 05:00] LABS: Albumin Globulin Ratio 0.6 (0.9-2); Bilirubin,Total 0.4 mg/dl (0.2-1); Total Protein 6.5 gm/dl (6.4-8.2); Troponin I 0.088 ng/ml (0-0.045)
[2018-11-03 05:19] LABS: iSTAT Allen Test Pass; iSTAT Arterial Blood Gas HCO3 39 meg/L (19-24); iSTAT Arterial Blood Gas pCO2 56 mmHg (35-46); iSTAT Arterial Blood Gas pH 7.45 (7.35-7.45); iSTAT Carbon Dioxide > 40 mEq/l (24-31); iSTAT FiO2 40 %; iSTAT Site L Radial
[2018-11-03] MEDS: LEVOTHYROXINE SODIUM 50 MCG TABLET PO SCH (05:28)
[2018-11-03] MEDS: LEVOTHYROXINE SODIUM 200 MCG TABLET PO SCH (05:28)
[2018-11-03] MEDS: PRAZOSIN HCL 1 MG CAP PO SCH ×3 (05:28→21:34)
[2018-11-03] MEDS: INSULIN ASPART 100 UNITS/ML 3 ML PEN SQ SCH ×4 (08:28→19:54)
[2018-11-03] MEDS: GABAPENTIN 100 MG CAP PO SCH ×2 (08:29→11:46)
[2018-11-03] MEDS: AMOXICILLIN/CLAVULANATE 875 MG TAB PO SCH ×2 (08:29→17:10)
[2018-11-03] MEDS: ASPIRIN 325 MG ECTAB PO SCH (08:30)
[2018-11-03] MEDS: INSULIN GLARGINE SOLOSTAR 100 UNITS/ML 3 ML PEN SC SCH (08:30)
[2018-11-03] MEDS: FUROSEMIDE 40 MG in SYRINGE 0 ML IV SCH ×2 (08:34→13:05)
[2018-11-03] MEDS: ATORVASTATIN 10 MG TAB PO SCH (08:37)
[2018-11-03] MEDS: METOPROLOL TARTRATE 25 MG TAB PO SCH ×2 (08:37→19:48)
[2018-11-03] MEDS: ENOXAPARIN INJ 40 MG/0.4 ML SYR SQ SCH ×2 (08:38→19:47)
[2018-11-03] MEDS: NICOTINE 7 MG/24 HR TDSY TD SCH (08:38)
[2018-11-03] MEDS: FAMOTIDINE 20 MG TAB PO SCH ×2 (08:39→19:47)
[2018-11-03] MEDS: predniSONE 20 MG TAB PO SCH (08:39)
[2018-11-03] MEDS: AMLODIPINE BESYLATE 5 MG TAB PO SCH (08:39)
[2018-11-03] MEDS: BUDESONIDE/FORMOTEROL FUMARATE 160/4.5 60 PUFFS/INHALER INH SCH ×2 (08:40→19:46)
--- NOTE | 2018-11-03 10:42 | Hospitalist Progress Note ---
Date of Service November 03, 2018 Assessment & Plan (1) Acute on chronic diastolic (congestive) heart failure: Appreciate Cardiology recs to change to PO Lasix and add Isordil to aid in blood pressure control and afterload reduction. (2) Hyperkalemia: 2/2 ACEI increase, which has been held altogether. Potassium has normalized. (3) Acute respiratory failure with hypoxia and hypercapnia: Likely multifactorial including CHF exacerbation, COPD exacerbation, and pneumonia. Wheezing has improved, continue prednisone and bronchodilator therapy. Continuous oxygen, which was previously ordered for him at home. (4) COPD exacerbation: as above. (5) Pneumonia: Augmentin, improved. Completing 7 day course. (6) Elevated troponin I level: likely 2/2 demand ischemia in setting of acute respiratory failure and intubation. Cont ASA and statin per Cards recs. (7) Hypertensive urgency: No ACEI 2/2 hyperkalemia. Cont prazosin and Isordil added today. (8) SAFIA (obstructive sleep apnea): CPAP qHS and PRN (9) Morbid obesity: counseling on weight loss Diet and exercised as tolerated Adarsh lift ordered to help mobilize patient OOB to chair which he has been doing several times daily. he reports being on continuous oxygen at home. declined bariatric surgery consult per pulm (10) Diabetes: above goal with inpatient glycemic pharmacist adjusting dosage and scale to get to goal. (11) Tobacco abuse: strongly advised to quit smoking, currently on the nicotine patch. Pt verbalized intent to quit smoking. (12) DVT prophylaxis: Lovenox 40mg PO BID Full Code Dispo-likely ok to go to SNF/rehab on Sunday but will need to see clinical status on that day. Will need continuous oxygen and nightly CPAP. Fatimah Rowland DO [facility] [address] Hospitalist Subjective Patient feeling well today. States that he is feeling stronger every day. Reports a lessening of his coughing and feels he is clearing up. States the bronchodilators are helping him. Review of Systems Review of Systems: All systems reviewed & are unremarkable except as noted in HPI & below Physical Exam Physical Exam: CONSTITUTIONAL: morbid obesity, vitals as above, generally well-appearing, alert EYES: normal conjunctivae, no scleral icterus ENT: MMM RESPIRATORY: Slight wheezing throughout, no crackles or rhonchi, normal respiratory effort CARDIOVASCULAR: regular rate and rhythm, S1 and 2 heard without murmurs, gallops or rubs, distant heart sounds 2/2 body habitus, no JVD, trace peripheral edema-morbid obese body habitus limiting exam GASTROINTESTINAL: large protuberant abdomen, soft, nontender, nondistended. MUSCULOSKELETAL: generalized weakness and deconditioning, head is normocephalic and atraumatic SKIN: warm and dry NEUROLOGIC: no gross focal deficits. PSYCHIATRIC: alert cooperative and oriented to person, place and time. Results & Data Vital Signs (Past 12 Hours) Vital Signs Temp Pulse Pulse Resp BP BP Pulse Ox 11/03/18 07:06 70 16 96 11/03/18 07:04 36.4 C L 60 16 132/69 95 11/03/18 03:15 36.6 C 63 16 164/74 H 98 11/03/18 01:59 56 L 15 96 11/03/18 01:57 56 L 18 96 11/02/18 23:54 36.7 C 59 L 16 169/73 H 96 11/02/18 23:01 66 Laboratory Results Short CBC 11/03/18 Range/Units 04:13 WBC 10.76 (4.8-10.8) K/uL Hgb 12.1 L (14.0-18.0) g/dL Hct 36.3 L (42-52) % Plt Count 136 (130-400) K/uL BMP 11/03/18 04:13 Sodium 137 Potassium 5.1 Chloride 98 Carbon Dioxide 36 H BUN 47 H Creatinine 1.30 Glucose 256 H Calcium 8.5 Cardiac Enzymes 11/03/18 Range/Units 04:13 Troponin I 0.088 H* (0-0.045) ng/ml Liver Function 11/03/18 Range/Units 04:13 Total Bilirubin 0.4 (0.2-1) mg/dl AST 43 H (15-37) U/L ALT 54 (12-78) U/L Alkaline Phosphatase 127 H (45-117) U/L Albumin 2.5 L (3.4-5.0) gm/dl Medications Administered Current Inpatient Medications Albuterol (Duoneb) 3 ml INH Q6R CAROL ANN Stop: 11/30/18 18:44 Last Admin: 11/03/18 07:06 Dose: 3 ml Documented by: Amlodipine Besylate (Norvasc) 10 mg PO QAM CAROL ANN Stop: 11/26/18 08:59 Last Admin: 11/03/18 08:39 Dose: 10 mg Documented by: Amoxicillin/Clavulanate Potassium (Augmentin 875mg) 1 tab PO BIDM [facility]; Protocol Stop: 11/04/18 08:59 Last Admin: 11/03/18 08:29 Dose: 1 tab Documented by: Aspirin (Ecotrin) 325 mg PO DAILY [facility] Stop: 11/25/18 08:59 Last Admin: 11/03/18 08:30 Dose: 325 mg Documented by: Atorvastatin Calcium (Lipitor) 10 mg PO DAILY [facility] Stop: 11/24/18 08:59 Last Admin: 11/03/18 08:37 Dose: 10 mg Documented by: Budesonide/Formoterol Fumarate (Symbicort 160mcg/4.5mcg) 2 puffs INH BID [facility] Stop: 12/01/18 20:59 Last Admin: 11/03/18 08:40 Dose: 2 puffs Documented by: Dextrose (Dextrose 50%) 25 - 50 ml IV UD PRN; Protocol PRN Reason: Hypoglycemia Protocol Stop: 11/23/18 23:16 Docusate Sodium (Colace) 100 mg PO BID PRN PRN Reason: Constipation Stop: 11/23/18 18:03 Enoxaparin Sodium (Lovenox) 40 mg SQ BID [facility] Stop: 11/29/18 22:59 Last Admin: 11/03/18 08:38 Dose: 40 mg Documented by: Famotidine (Pepcid) 20 mg PO BID [facility] Stop: 11/26/18 20:59 Last Admin: 11/03/18 08:39 Dose: 20 mg Documented by: Gabapentin (Neurontin) 100 mg PO BID@0800,1200 [facility] Stop: 11/26/18 11:59 Last Admin: 11/03/18 08:29 Dose: 100 mg Documented by: Gabapentin (Neurontin) 300 mg PO HS [facility] Stop: 11/26/18 20:59 Last Admin: 11/02/18 21:30 Dose: 300 mg Documented by: Glucagon (Glucagen) 1 mg SQ UD PRN; Protocol PRN Reason: Hypoglycemia Protocol Stop: 11/23/18 23:16 Glucose (Dex4 Glucose) 4 - 8 tabs PO UD PRN; Protocol PRN Reason: Hypoglycemia Protocol Stop: 11/23/18 23:16 Glucose (Glucose 40%) 15 - 30 gm PO UD PRN; Protocol PRN Reason: Hypoglycemia Protocol Stop: 11/23/18 23:16 Furosemide 40 mg/ Syringe 4 mls @ 4 mls/min IV TID [facility] Stop: 12/02/18 13:59 Last Admin: 11/03/18 08:34 Dose: 4 mls/min Documented by: Insulin Aspart (Novolog Flexpen) 0 units SQ ACHS [facility] Stop: 11/24/18 15:59 Last Admin: 11/03/18 08:28 Dose: 32 units Documented by: Insulin Glargine (Lantus Solostar Pen) [facility] Protocol Stop: 12/01/18 08:59 Last Admin: 11/03/18 08:30 Dose: 70 units Documented by: Levothyroxine [facility] ([facility]throid) [facility] Stop: 11/24/18 06:29 Last Admin: 11/03/18 05:28 Dose: 50 mcg Documented by: Levothyroxine Sodium (Synthroid) [facility] Stop: 11/24/18 06:29 Last Admin: 11/03/18 05:28 Dose: 200 mcg Documented by: Metoprolol Tartrate (Lopressor) 12.5 mg PO BID [facility] Stop: 11/25/18 08:59 Last Admin: 11/03/18 08:37 Dose: 12.5 mg Documented by: Miconazole Nitrate (Desenex) 1 appln EXT BID PRN PRN Reason: AFFECTED SKIN FOLDS Stop: 11/24/18 15:55 Miscellaneous (Carbohydrates For Hypoglycemia) 15 - 30 gm PO UD PRN PRN Reason: Hypoglycemia Treatment Stop: 11/23/18 23:16 Miscellaneous (Remove Nicoderm Patch) 1 ea N/A HS [facility] Stop: 11/24/18 20:59 Last Admin: 11/02/18 21:35 Dose: 1 ea Documented by: Miscellaneous Information (Consult Glycemic Management Pharmacy) 1 ea N/A UD PRN; Protocol PRN Reason: Consult Stop: 11/23/18 23:35 Nicotine (Nicoderm Cq) 7 mg TD [facility] Stop: 11/24/18 17:29 Last Admin: 11/03/18 08:38 Dose: 7 mg Documented by: Polyethylene Glycol (Miralax Powder Packet) 17 gm PO DAILY PRN PRN Reason: Constipation Prazosin HCl (Prazosin Hcl) 1 mg PO Q8 [facility] Stop: 11/25/18 13:59 Last Admin: 11/03/18 05:28 Dose: 1 mg Documented by: Prednisone (Prednisone) 60 mg PO DAILY [facility] Stop: 12/02/18 09:59 Last Admin: 11/03/18 08:39 Dose: 60 mg Documented by: (1) Pneumonia Laterality: left Lung location: unspecified part of lung Pneumonia type: due to unspecified organism Qualified Code(s): J18.9 - Pneumonia, unspecified organism
--- NOTE | 2018-11-03 11:19 | Cardiology Progress Note ---
Date of Service November 03, 2018 Assessment & Plan (1) Acute on chronic diastolic (congestive) heart failure: Plan: Discontinue IV furosemide later today begin oral regimen of 80 mg p.o. twice daily Add oral nitrates with Isordil 20 3 times daily to aid in blood pressure and afterload reduction (2) Hyperkalemia: Likely precipitated by titration of TJ inhibitor 10/31/2018. No further lisinopril (3) Acute respiratory failure with hypoxia and hypercapnia: Continue BiPAP (4) Hypertensive urgency: As above (5) Elevated troponin I level: Type II event related to acute hypoxic respiratory failure in the setting of mucous plugging, acute decompensated diastolic heart failure, and hypertensive urgency. Continue aspirin and statin therapy as previously ordered. (6) Left bundle branch block: Chronic finding. (7) Morbid obesity: Long-term approach will need to be addressed with increased mobility in hospital to begin including out of bed to chair more frequently Subjective Patient seen and examined chart medications telemetry reviewed. No arrhythmias. Has continued diuresis. Notes occasional confusion at night. No chest pains or discomfort no dizziness or lightheadedness. Leg edema substantially improved. Weight down 12 kg since admission Review of Systems Review of Systems: As per HPI Physical Exam Constitutional: + morbidly obese Eyes: PERRL, conjunctivae normal, anicteric sclerae ENMT: external ear and nose normal, oropharynx normal Cardiovascular: Rate/Rhythm: regular rate Results & Data Vital Signs (Past 12 Hours) Vital Signs Temp Pulse Pulse Resp BP BP Pulse Ox 11/03/18 10:41 36.4 C L 57 L 14 153/82 H 97 11/03/18 07:06 70 16 96 11/03/18 07:04 36.4 C L 60 16 132/69 95 11/03/18 03:15 36.6 C 63 16 164/74 H 98 11/03/18 01:59 56 L 15 96 11/03/18 01:57 56 L 18 96 11/02/18 23:54 36.7 C 59 L 16 169/73 H 96
[2018-11-03] MEDS: ISOSORBIDE DINITRATE 20 MG TAB PO SCH ×2 (13:04→17:12)
--- NOTE | 2018-11-03 14:06 | Pharmacy Report ---
Pharmacy Glycemic Short Note 2 - Date of Service November 03, 2018 - Glycemic Short BSG Results (Last 24 hours): 11/02/18 11/03/18 11/03/18 16:01 03:39 04:13 Glucose 256 H POC Glucose 179 H 255 H 11/03/18 11/03/18 07:30 11:05 Glucose POC Glucose 266 H 203 H OUTPATIENT ANTIDIABETIC REGIMEN: * 70/30 95 units QAM; 65 units QPM * A1c = 7.3% 10/25/18 ASSESSMENT: Prednisone 60mg daily continues. BSGs over the previous 24hrs not well controlled: [phone]. Likely steroid induced. I did increase his lantus this morning from 60 units to 70 units. Today's lunch BSG is already improved from yesterdays 311/269mg/dL. Could consider adding NPH tomorrow? I hesitate to make too many changes at once. PLAN FOR INPATIENT GLYCEMIC CONTROL: * Basal insulin * Lantus this AM per the following scale: * 40 units for BSG < 140 * 60 units for BSG 140-200 * 70 units for BSG > 200 * Bolus insulin- (tighten CF, CR and goal range) ADA & AACE recommend a goal blood sugar range 140-180 mg/dl for the majority of critically ill & non- critically ill patients. However, more stringent targets may be selected in individual cases. Will utilize more stringent goal of 110-140 mg/dl based on patient age & comorbidities. Additionally, tighter glycemic control is warranted to facilitate wound/infection healing. * NovoLog per scale ACHS + 0200 check to allow for more correctional insulin if necessary * Goal Range: Low 110 mg/dL - High 140 mg/dL * Correction Factor: 8 mg/dL/unit * Nutritional / Prandial insulin per carb ratio of 1 unit per 4 grams CHO consumed PLAN FOR DISCHARGE: * Inpatient insulin doses are much lower than out-pt doses. A1c 7.3% is near goal. If patient was compliant with out-pt regimen and his lifestyle / dietary habits can account for higher insulin needs, may resume home dosage.
[2018-11-03] MEDS: FUROSEMIDE 80 MG TAB PO SCH (17:11)
[2018-11-03] MEDS: GABAPENTIN 300 MG CAP PO SCH (19:45)
[2018-11-04] MEDS: ALBUT/IPRATROP 3MG/0.5MG NEB 3 ML VIAL INH SCH ×4 (01:36→19:59)
[2018-11-04] MEDS: LEVOTHYROXINE SODIUM 50 MCG TABLET PO SCH (05:57)
[2018-11-04] MEDS: PRAZOSIN HCL 1 MG CAP PO SCH ×3 (05:57→23:06)
[2018-11-04] MEDS: LEVOTHYROXINE SODIUM 200 MCG TABLET PO SCH (05:57)
[2018-11-04 07:12] LABS: BUN Creatinine Ratio 46.7 (10-20); Calcium 8.4 mg/dl (8.5-10.1); Creatinine Clr Calc Pharmacy 105.1 ml/min; Est GFR (African American) 69.4; Est GFR (Non-African American) 59.9; Potassium 4.8 mmol/L (3.5-5.1)
[2018-11-04] MEDS: METOPROLOL TARTRATE 25 MG TAB PO SCH ×2 (08:16→20:28)
[2018-11-04] MEDS: ISOSORBIDE DINITRATE 20 MG TAB PO SCH ×3 (08:16→17:00)
[2018-11-04] MEDS: FUROSEMIDE 80 MG TAB PO SCH ×2 (08:17→17:00)
[2018-11-04] MEDS: AMLODIPINE BESYLATE 5 MG TAB PO SCH (08:17)
[2018-11-04] MEDS: AMOXICILLIN/CLAVULANATE 875 MG TAB PO SCH (08:17)
[2018-11-04] MEDS: ATORVASTATIN 10 MG TAB PO SCH (08:17)
[2018-11-04] MEDS: ENOXAPARIN INJ 40 MG/0.4 ML SYR SQ SCH ×2 (08:18→20:27)
[2018-11-04] MEDS: NICOTINE 7 MG/24 HR TDSY TD SCH (08:18)
[2018-11-04] MEDS: ASPIRIN 325 MG ECTAB PO SCH (08:18)
[2018-11-04] MEDS: FAMOTIDINE 20 MG TAB PO SCH (08:18)
[2018-11-04] MEDS: predniSONE 20 MG TAB PO SCH (08:18)
[2018-11-04] MEDS: GABAPENTIN 100 MG CAP PO SCH ×2 (08:19→11:52)
[2018-11-04] MEDS: BUDESONIDE/FORMOTEROL FUMARATE 160/4.5 60 PUFFS/INHALER INH SCH ×2 (08:19→20:29)
[2018-11-04] MEDS: INSULIN ASPART 100 UNITS/ML 3 ML PEN SQ SCH ×4 (08:24→21:18)
[2018-11-04] MEDS: INSULIN GLARGINE SOLOSTAR 100 UNITS/ML 3 ML PEN SC SCH (08:26)
--- NOTE | 2018-11-04 10:13 | Gastrointestinal Consultation ---
Date of Consultation November 04, 2018 Assessment & Plan (1) Occult blood positive stool: 62 year old male with history of obesity, T2DM, hypothyroidism, CHF, COPD and other chronic comorbidities admitted w/ acute respiratory failure secondary to pneumonia, COPD&CHF exacerbation - GI asked to evaluate for gastric occult testing positive. He adamantly denies any black/bloody stools or emesis however there was report of a dark stool days ago. Both gastric occult and stool occult were positive this admission. HGB has remained stable, mild bump in BUN is noted. DDX discussed. He does not wish to proceed with endoscopic evaluation at this point in time but notes he will consider OP testing. No GI contraindication to diet Would recommend PO PPI BID x 2 months then once daily Trend H&H Monitor, document all GI output Transfuse PRN Endoscopy was deferred by pt but he will consider OP eval GI to sign off. Thank you for allowing us to participate in the care of this patient. Please call with any acute changes, questions or concerns. Please see addendum below with additional recommendation from my supervising physician. Present on Admission?: Yes Supervising Physician Co-Signing Physician Notes I performed a history and physical examination of the patient, including specifically on physical exam - soft, nontender abdomen. I have discussed the patient's management with Elsa. Please refer to the nurse practitioner's note for the documented findings and plan of care. 62 male admitted with respiratory distress, was on Heparin drip for suspected Acs, later had drop in H/H and elevated BUN with positive occult testing. His H/H is now stable, no melena or abdominal pain. He refused EGD. Plan: PPI. Recall GI if patient agrees. History of Present Illness Reason for Consultation: occult positive, black stool Requesting Physician: Kashif Attending Physician: Fatimah Rowland, DO History of Present Illness 62 year old male wit history of obesity, T2DM, HTN, hypothyrodism, CHF, COPD and others below who presented through the ED 10/24/18 for evaluation of a nonresponsive episode at home admitted for exacerbation of COPD/CHF. Pt was seen and evaluated, chart reviewed. History was gathered through chart review as he is a poor historian. Was extubated. Clinically improving daily. Less cough, less SOB. He denies any GI symptoms. No abd pain. No nausea, vomiting. Tolerating diet. Moving bowels well. He denies black or bloody stools. There was a report of dark stool during admission. Today no fever, chills, CP. Gastric occult 10/25/18: positive Stool occult 11/02/18: positive HGB: 15 --> 12.7 --> 12.9 --> 11.9 --> 11/9 --> 11.9 --> 11.6 --> 12.1 BUN: 39 --> 42 --> 39 --> 36 --> 42 --> 47 --> 59 EGD: none Colonoscopy: none Allergies Allergy/AdvReac Type Severity Reaction Status Date / Time No Known Allergies Allergy Verified 06/02/16 11:34 Home Medications Home Medications Medication Instructions Recorded Confirmed Type amlodipine 2.5 mg PO DAILY 10/24/18 10/24/18 History aspirin 325 mg PO DAILY 10/24/18 10/24/18 History atorvastatin 10 mg PO DAILY 10/24/18 10/24/18 History fluticasone propionate 2 spray INTRANASAL DAILY 10/24/18 10/24/18 History furosemide 40 mg PO BID 10/24/18 10/24/18 History gabapentin 100 mg PO UD 10/24/18 10/24/18 History insulin NPH and regular human 65 unit SUBCUT PM 10/24/18 10/24/18 History [Novolin 70/30 U-100 Insulin] insulin NPH and regular human 95 unit SUBCUT QAM 10/24/18 10/24/18 History [Novolin 70/30 U-100 Insulin] levothyroxine 25 mcg PO DAILY 10/24/18 10/24/18 History levothyroxine 200 mcg PO DAILY 10/24/18 10/24/18 History metoprolol succinate 25 mg PO DAILY 10/24/18 10/24/18 History omeprazole magnesium [Prilosec OTC] 10 mg PO DAILY 10/24/18 10/24/18 History Patient History Medical History Diabetes (Chronic) Hypertension (Chronic) Hypothyroidism (Chronic) COPD (chronic obstructive pulmonary disease) (Chronic) Chronic diastolic heart failure (Chronic) Morbid obesity (Chronic) SAFIA (obstructive sleep apnea) (Chronic) Obesity hypoventilation syndrome (Chronic) Tobacco abuse (Chronic) Graves disease Surgical History S/P correction of deviated nasal septum Family History Mother Diabetes Hypertension Brother , dies at 44 yo from [place] Heart disease Social History Preferred Language: [place] Communication Ability: Unable Rn Procedures Required: No Beliefs That Will Affect Care: None marital status: single Current Living Situation: Family current occupational status: unemployed Other Information That Helps Us Care for You: No Feels Safe at Home: Yes Smoking Status: Current every day smoker Hx Alcohol Use: No Hx Substance Use: No Review of Systems Constitutional: no fever, no chills and no fatigue Respiratory: + cough; no chest congestion, no dyspnea on exertion and no pain on inspiration Cardiovascular: no chest pain, no radiating jaw, neck or arm pain and no palpitations Gastrointestinal: no abdominal pain, no early satiety, no vomiting, no cramping, no change in stools, no fecal incontinence and no melena Physical Exam Constitutional: well developed and + obese; no acute distress Respiratory: no respiratory distress and no labored breathing Auscultation: lungs clear to auscultation bilaterally and + diminished lung sounds Cardiovascular: Rate/Rhythm: regular rate and regular rhythm Heart Sounds: no click, no gallop and no murmur Gastrointestinal (Abdomen): Inspection/Auscultation: abdomen normal to inspection and normal bowel sounds Percussion/Palpation: abdomen soft; no guarding and abdomen not rigid obese abdomen Skin: no rashes, warm and dry Results & Data Vital Signs (Past 12 Hours) Vital Signs Temp Pulse Pulse Pulse Resp BP Pulse Ox 11/04/18 07:42 36.9 C 75 21 161/54 H 93 11/04/18 06:58 67 18 93 11/04/18 04:00 37.2 C 79 20 165/49 H 93 11/04/18 01:40 67 15 96 11/04/18 01:38 65 18 96 11/04/18 00:06 68 11/04/18 00:02 36.7 C 68 22 144/63 H 94 11/03/18 22:12 66 15 98 Laboratory Results 11/04/18 11/03/18 11/03/18 Range/Units 06:18 19:53 16:45 Sodium 140 (136-145) mmol/L Potassium 4.8 (3.5-5.1) mmol/L Chloride 99 (98-107) mmol/L Carbon Dioxide 39 H (21-32) mmol/L Anion Gap 2.0 L (3-11) BUN 59 H (7-18) mg/dl Creatinine 1.26 (0.6-1.4) mg/dl Est Cr Clr Drug Dosing 105.1 ml/min Est GFR ( Amer) 69.4 Est GFR (Non-Af Amer) 59.9 BUN/Creatinine Ratio 46.7 H (10-20) Glucose 161 H (70-99) mg/dl POC Glucose 208 H 173 H (70-99) Calcium 8.4 L (8.5-10.1) mg/dl 11/03/18 Range/Units 11:05 Sodium (136-145) mmol/L Potassium (3.5-5.1) mmol/L Chloride (98-107) mmol/L Carbon Dioxide (21-32) mmol/L Anion Gap (3-11) BUN (7-18) mg/dl Creatinine (0.6-1.4) mg/dl Est Cr Clr Drug Dosing ml/min Est GFR ( Amer) Est GFR (Non-Af Amer) BUN/Creatinine Ratio (10-20) Glucose (70-99) mg/dl POC Glucose 203 H (70-99) Calcium (8.5-10.1) mg/dl
--- NOTE | 2018-11-04 11:28 | Pharmacy Report ---
Pharmacy Glycemic Short Note 2 - Date of Service November 04, 2018 - Glycemic Short BSG Results (Last 24 hours): 11/03/18 11/03/18 11/03/18 11:05 16:45 19:53 Glucose POC Glucose 203 H 173 H 208 H 11/04/18 11/04/18 11/04/18 06:18 07:18 10:48 Glucose 161 H POC Glucose 198 H 173 H OUTPATIENT ANTIDIABETIC REGIMEN: * 70/30 95 units QAM; 65 units QPM * A1c = 7.3% 10/25/18 ASSESSMENT: 11/04 * Patient received 156 units of insulin yesterday, with poor control; 70 units of basal; 86 units bolus (range 173-266) * Fasting this morning improved at 198;-followed same scale today and received 60 units- will increase if fasting BSG elevated tomorrow * Lunch BSG improved, therefore will continue current parameters, will hold off on adding NPH, prednisone has been decreased to 10 mg * Continue to monitor throughout day, could potentially give additional lantus dose this evening if significantly elevated 11/03 Prednisone 60mg daily continues. BSGs over the previous 24hrs not well controlled: [phone]. Likely steroid induced. I did increase his lantus this morning from 60 units to 70 units. Today's lunch BSG is already improved from yesterdays 311/269mg/dL. Could consider adding NPH tomorrow? I hesitate to make too many changes at once. PLAN FOR INPATIENT GLYCEMIC CONTROL: * Basal insulin * Lantus this AM per the following scale: * 40 units for BSG < 140 * 60 units for BSG 140-180 * 70 units for BSG > 180 * Bolus insulin- ADA & AACE recommend a goal blood sugar range 140-180 mg/dl for the majority of critically ill & non-critically ill patients. However, more stringent targets may be selected in individual cases. Will utilize more stringent goal of 110-140 mg/dl based on patient age & comorbidities. Additionally, tighter glycemic control is warranted to facilitate wound/infection healing. * NovoLog per scale ACHS + 0200 check to allow for more correctional insulin if necessary * Goal Range: Low 110 mg/dL - High 140 mg/dL * Correction Factor: 8 mg/dL/unit * Nutritional / Prandial insulin per carb ratio of 1 unit per 4 grams CHO consumed PLAN FOR DISCHARGE: * Inpatient insulin doses are much lower than out-pt doses. A1c 7.3% is near goal. If patient was compliant with out-pt regimen and his lifestyle / dietary habits can account for higher insulin needs, may resume home dosage.
[2018-11-04] MEDS ORDERED: ONDANSETRON INJ 2 MG/ML 2 ML VIAL IV PRN (13:59)
--- NOTE | 2018-11-04 14:01 | Hospitalist Progress Note ---
Date of Service November 04, 2018 Assessment & Plan (1) Acute on chronic diastolic (congestive) heart failure: Appreciate Cardiology recs to change to PO Lasix and add Isordil to aid in blood pressure control and afterload reduction. Compensated (2) Hyperkalemia: 2/2 ACEI increase, which has been held altogether. Potassium has normalized. (3) Acute respiratory failure with hypoxia and hypercapnia: Likely multifactorial including CHF exacerbation, COPD exacerbation, and pneumonia. Wheezing has resolved, prednisone stopped 2/2 intermittent confusion, continue bronchodilator therapy. Continuous oxygen, which was previously ordered for him at home. (4) COPD exacerbation: as above. (5) Pneumonia: Augmentin, improved. Completing 7 day course. (6) Elevated troponin I level: likely 2/2 demand ischemia in setting of acute respiratory failure and intubation. Cont ASA and statin per Cards recs. (7) Hypertensive urgency: No ACEI 2/2 hyperkalemia. Cont prazosin and Isordil added today. (8) SAFIA (obstructive sleep apnea): CPAP qHS and PRN (9) Morbid obesity: counseling on weight loss Diet and exercised as tolerated Adarsh lift ordered to help mobilize patient OOB to chair which he has been doing several times daily. he reports being on continuous oxygen at home. declined bariatric surgery consult per pulm (10) Diabetes: above goal with inpatient glycemic pharmacist adjusting dosage and scale to get to goal. (11) Tobacco abuse: strongly advised to quit smoking, currently on the nicotine patch. Pt verbalized intent to quit smoking. (12) DVT prophylaxis: Lovenox 40mg PO BID Full Code Dispo-dc to rehab in am. Discussed plan with both the patient and his niece, Virginia, who are in agreement. Fatimah Rowland DO [facility] Hospitalist Subjective Pt doing well some reported intermittent hallucinations CXR/UA checked and negative, prednisone stopped toelrating PO we discussed a plan for discharge. Review of Systems Review of Systems: All systems reviewed & are unremarkable except as noted in HPI & below Physical Exam Physical Exam: CONSTITUTIONAL: morbid obesity, vitals as above, generally well-appearing, alert EYES: normal conjunctivae, no scleral icterus ENT: MMM RESPIRATORY: CTA throughout, no crackles or rhonchi, normal respiratory effort CARDIOVASCULAR: regular rate and rhythm, S1 and 2 heard without murmurs, gallops or rubs, distant heart sounds 2/2 body habitus, no JVD, trace peripheral edema-morbid obese body habitus limiting exam GASTROINTESTINAL: large protuberant abdomen, soft, nontender, nondistended. MUSCULOSKELETAL: generalized weakness and deconditioning, head is normocephalic and atraumatic SKIN: warm and dry NEUROLOGIC: no gross focal deficits. PSYCHIATRIC: alert cooperative and oriented to person, place and time. Results & Data Vital Signs (Past 12 Hours) Vital Signs Temp Pulse Pulse Resp BP Pulse Ox 11/04/18 13:33 93 H 16 95 11/04/18 12:32 91 H 117/55 L 11/04/18 12:01 37.0 C 80 24 131/44 L 96 11/04/18 07:42 36.9 C 75 21 161/54 H 93 11/04/18 06:58 67 18 93 11/04/18 04:00 37.2 C 79 20 165/49 H 93 Laboratory Results [facility] 11/04/18 06:18 Sodium 140 Potassium 4.8 Chloride 99 Carbon Dioxide 39 H BUN 59 H Creatinine 1.26 Glucose 161 H Calcium 8.4 L (1) Pneumonia Laterality: left Lung location: unspecified part of lung Pneumonia type: due to unspecified organism Qualified Code(s): J18.9 - Pneumonia, unspecified organism
--- NOTE | 2018-11-04 14:29 | XRay Report ---
XR chest 1V portable HISTORY: confusion, persistent hypoxia COMPARISON: Chest 10/26/2018. FINDINGS: There are low lung volumes. No pneumothorax. No pleural effusions. The heart remains mildly enlarged. Mild pulmonary vascular congestion has a most completely resolved. No new focal lung conso lidations to suggest pneumonia. IMPRESSION: Near complete resolution of the pulmonary vascular congestion. Stable mild cardiomegaly. Electronically signed by: Jerson Dee M.D. 11/04/2018 2:28 PM
[2018-11-04 15:43] LABS: Appearance Urine Clear (Clear); Bacteria Urine Automated Negative (Negative); Bilirubin Urine Negative (Negative); Blood Urine Trace (Negative); Cast Urine Automated 0 /lpf (0-5); Color Urine Yellow; Epithelial Cell Urine Auto 0-5 /lpf (0-5); Glucose Urine UA Negative (Negative); Ketones Urine Negative (Negative); Leukocyte Esterase Urine Negative (Negative); Nitrite Urine Negative (Negative); Protein Urine Negative (Negative); Specific Gravity Urine 1.019 (1.000-1.030); Urobilinogen Urine Negative (Negative); WBC Urine Automated 0 /hpf (0-5)
[2018-11-04] MEDS: PANTOprazole 40 MG TAB PO SCH (19:38)
[2018-11-04] MEDS: GABAPENTIN 300 MG CAP PO SCH (20:29)
[2018-11-04] MEDS ORDERED: ALUMINUM/MAGNESIUM/SIMETH (MAALOX MAX) 30 ML UDC PO PRN (23:29)
[2018-11-05] MEDS: ALBUT/IPRATROP 3MG/0.5MG NEB 3 ML VIAL INH SCH ×4 (01:56→19:15)
[2018-11-05] MEDS: LEVOTHYROXINE SODIUM 50 MCG TABLET PO SCH (06:20)
[2018-11-05] MEDS: PRAZOSIN HCL 1 MG CAP PO SCH ×3 (06:21→21:53)
[2018-11-05] MEDS: LEVOTHYROXINE SODIUM 200 MCG TABLET PO SCH (06:21)
[2018-11-05] MEDS: ISOSORBIDE DINITRATE 20 MG TAB PO SCH ×3 (06:21→17:21)
[2018-11-05 07:15] LABS: BUN Creatinine Ratio 55.4 (10-20); Calcium 8.4 mg/dl (8.5-10.1); Est GFR (African American) 62.2; Est GFR (Non-African American) 53.6; Potassium 5.3 mmol/L (3.5-5.1)
[2018-11-05 07:39] LABS: Hematocrit (blood only) 27.6 % (42-52); Hemoglobin 9.1 g/dL (14.0-18.0); Mean Corpuscular Volume 96.5 fL (80-100); Mean Platelet Volume 9.6 fL (7.4-10.4); Platelet Count 157 K/uL (130-400); RDW Coefficient of Variation 15.2 % (11.5-14.5); RDW Standard Deviation 53.5 fL (36.4-46.3); Red Blood Count 2.86 M/uL (4.7-6.1); White Blood Count 8.71 K/uL (4.8-10.8)
--- NOTE | 2018-11-05 08:04 | Hospitalist Progress Note ---
Date of Service November 05, 2018 Assessment & Plan (1) Anemia: Possibly multifactorial etiology, but in setting of recent steroid use and occult blood positive testing, will ask GI to evaluate for possible endoscopy. No clinical evidence of active bleeding (normal heart rate, etc). Cont Protonix 40mg PO BID. Will await GI recommendations and defer discharge until this is worked up and there is demonstrated stability. (2) Acute on chronic diastolic (congestive) heart failure: compensated, cont PO Lasix. Appreciate Cardiology recs to change to PO Lasix. Isordil added with good response. (3) Hyperkalemia: 2/2 ACEI increase, which has been held altogether. Potassium is high normal. (4) Acute respiratory failure with hypoxia and hypercapnia: Likely multifactorial including CHF exacerbation, COPD exacerbation, and pneumonia. Prednisone stopped 2/2 intermittent confusion, continue bronchodilator therapy. Continuous oxygen, which was previously ordered for him at home. (5) COPD exacerbation: as above. (6) Pneumonia: Augmentin, improved. Completed course. (7) Elevated troponin I level: likely 2/2 demand ischemia in setting of acute respiratory failure and intubation. Cont ASA and statin per Cards recs. (8) Hypertensive urgency: No ACEI 2/2 hyperkalemia. Cont prazosin, good response after addition of Isordil. (9) SAFIA (obstructive sleep apnea): CPAP qHS and PRN (10) Morbid obesity: counseling on weight loss Diet and exercised as tolerated Adarsh lift ordered to help mobilize patient OOB to chair which he has been doing several times daily. he reports being on continuous oxygen at home. declined bariatric surgery consult per pulm (11) Diabetes: above goal with inpatient glycemic pharmacist adjusting dosage and scale to get to goal. (12) Tobacco abuse: strongly advised to quit smoking, currently on the nicotine patch. Pt verbalized intent to quit smoking. (13) DVT prophylaxis: Lovenox 40mg PO BID Full Code Dispo-EGD today and ensure H/H has stabilized prior to [facility] DO [facility] Hospital[facility] Subjective no issues overnight denies lightheadedness, chest pain, shortness of breath denies any changes in stool no overt bleeding present tolerating PO denies confusion overnight drop in H/H overnight that was significant. EGD today. Review of Systems Review of Systems: All systems reviewed & are unremarkable except as noted in HPI & below Physical Exam Physical Exam: CONSTITUTIONAL: morbid obesity, vitals as above, generally well-appearing, alert EYES: normal conjunctivae, no scleral icterus ENT: MMM RESPIRATORY: some minor wheezing on L base, no crackles or rhonchi, normal respiratory effort CARDIOVASCULAR: regular rate and rhythm, S1 and 2 heard without murmurs, gallops or rubs, distant heart sounds 2/2 body habitus, no JVD, trace peripheral edema-morbid obese body habitus limiting exam GASTROINTESTINAL: large protuberant abdomen, soft, nontender, nondistended. MUSCULOSKELETAL: generalized weakness and deconditioning, head is normocephalic and atraumatic SKIN: warm and dry NEUROLOGIC: no gross focal deficits. PSYCHIATRIC: alert cooperative and oriented to person, place and time. Results & Data Vital Signs (Past 12 Hours) Vital Signs Temp Pulse Pulse Resp BP BP Pulse Ox 11/05/18 07:16 36.7 C 68 20 113/56 L 98 11/05/18 06:57 70 18 96 11/05/18 06:19 69 162/52 H 11/05/18 03:18 70 14 93 11/05/18 01:59 66 13 96 11/05/18 01:58 66 16 96 11/04/18 23:18 79 19 98 11/04/18 22:45 37.0 C 90 16 116/65 93 11/04/18 22:30 78 20 98 11/04/18 20:25 36.9 C 81 22 113/70 97 11/04/18 20:24 36.9 C 80 20 153/72 H 99 11/04/18 20:07 76 18 95 Laboratory Results Short CBC 11/05/18 Range/Units 06:27 WBC 8.71 (4.8-10.8) K/uL Hgb 9.1 L (14.0-18.0) g/dL Hct 27.6 L (42-52) % Plt Count 157 (130-400) K/uL BMP 11/05/18 06:27 Sodium 142 Potassium 5.3 H Chloride 102 Carbon Dioxide 36 H BUN 76 H Creatinine 1.38 Glucose 199 H Calcium 8.4 L Urine 11/04/18 Range/Units 15:30 Urine Color Yellow Urine Appearance Clear (Clear) Urine pH 5.0 (4.5-7.5) Ur Specific [place] 1.019 (1.000-1.030) Urine Protein Negative (Negative) Urine Glucose (UA) Negative (Negative) Medications Administered Current Inpatient Medications Al Hydrox/Mg Hydrox/Simethicone (Maalox Max) 30 ml PO Q6H PRN PRN Reason: Indigestion Stop: 12/04/18 23:28 Last Admin: 11/05/18 00:03 Dose: 30 ml Documented by: Albuterol (Duoneb) 3 ml INH Q6R [facility] ANN Stop: 11/30/18 18:44 Last Admin: 11/05/18 06:57 Dose: 3 ml Documented by: Amlodipine Besylate (Norvasc) 10 mg PO QAM [facility] Stop: 11/26/18 08:59 Last Admin: 11/05/18 08:35 Dose: 10 mg Documented by: Aspirin (Ecotrin) 325 mg PO DAILY [facility] Stop: 11/25/18 08:59 Last Admin: 11/05/18 08:33 Dose: 325 mg Documented by: Atorvastatin Calcium (Lipitor) 10 mg PO DAILY [facility] Stop: 11/24/18 08:59 Last Admin: 11/05/18 08:34 Dose: 10 mg Documented by: Budesonide/Formoterol Fumarate (Symbicort 160mcg/4.5mcg) 2 puffs INH BID [facility] Stop: 12/01/18 20:59 Last Admin: 11/05/18 08:37 Dose: 2 puffs Documented by: Dextrose (Dextrose 50%) 25 - 50 ml IV UD PRN; Protocol PRN Reason: Hypoglycemia Protocol Stop: 11/23/18 23:16 Docusate Sodium (Colace) 100 mg PO BID PRN PRN Reason: Constipation Stop: 11/23/18 18:03 Enoxaparin Sodium (Lovenox) 40 mg SQ BID [facility] Stop: 11/29/18 22:59 Last Admin: 11/05/18 08:36 Dose: 40 mg Documented by: Furosemide (Lasix) 80 mg PO BID17 CAROL ANN Stop: 12/05/18 08:59 Last Admin: 11/05/18 08:34 Dose: 80 mg Documented by: Gabapentin (Neurontin) 100 mg PO BID@0800,1200 [facility] Stop: 11/26/18 11:59 Last Admin: 11/05/18 12:03 Dose: 100 mg Documented by: Gabapentin (Neurontin) 300 mg PO HS [facility] Stop: 11/26/18 20:59 Last Admin: 11/04/18 20:29 Dose: 300 mg Documented by: Glucagon (Glucagen) 1 mg SQ UD PRN; Protocol PRN Reason: Hypoglycemia Protocol Stop: 11/23/18 23:16 Glucose (Dex4 Glucose) 4 - 8 tabs PO UD PRN; Protocol PRN Reason: Hypoglycemia Protocol Stop: 11/23/18 23:16 Glucose (Glucose 40%) 15 - 30 gm PO UD PRN; Protocol PRN Reason: Hypoglycemia Protocol Stop: 11/23/18 23:16 Pantoprazole Sodium 40 mg/ (Dextrose) 100 mls @ 20 mls/hr IV Q5H [facility] Stop: 12/05/18 13:59 Insulin Aspart (Novolog Flexpen) 0 units SQ ACHS [facility] Stop: 11/24/18 15:59 Last Admin: 11/05/18 12:02 Dose: 9 units Documented by: Insulin Glargine (Lantus Solostar Pen) 40 units SC [facility]; Protocol Stop: 12/05/18 08:59 Last Admin: 11/05/18 08:29 Dose: 40 units Documented by: Isosorbide Dinitrate (Isordil) 20 mg PO DAILY@0700,1200,1700 [facility] Stop: 12/03/18 11:59 Last Admin: 11/05/18 12:03 Dose: 20 mg Documented by: Levothyroxine Sodium (Synthroid) 50 mcg PO DAILYBB [facility] Stop: 11/24/18 06:29 Last Admin: 11/05/18 06:20 Dose: 50 mcg Documented by: Levothyroxine Sodium (Synthroid) 200 mcg PO DAILYBB [facility] Stop: 11/24/18 06:29 Last Admin: 11/05/18 06:21 Dose: 200 mcg Documented by: Metoprolol Tartrate (Lopressor) 12.5 mg PO BID [facility] Stop: 11/25/18 08:59 Last Admin: 11/05/18 08:35 Dose: 12.5 mg Documented by: Miconazole Nitrate (Desenex) 1 appln EXT BID PRN PRN Reason: AFFECTED SKIN FOLDS Stop: 11/24/18 15:55 Miscellaneous (Carbohydrates For Hypoglycemia) 15 - 30 gm PO UD PRN PRN Reason: Hypoglycemia Treatment Stop: 11/23/18 23:16 Miscellaneous (Remove Nicoderm Patch) 1 ea N/A HS [facility] Stop: 11/24/18 20:59 Last Admin: 11/04/18 20:26 Dose: 1 ea Documented by: Miscellaneous Information (Consult Glycemic Management Pharmacy) 1 ea N/A UD PRN; Protocol PRN Reason: Consult Stop: 11/23/18 23:35 Nicotine (Nicoderm Cq) 7 mg TD QAM [facility] Stop: 11/24/18 17:29 Last Admin: 11/05/18 08:37 Dose: 7 mg Documented by: Ondansetron HCl (Zofran) 4 mg IV Q8H PRN PRN Reason: nausea/vomiting Stop: 12/04/18 13:59 Last Admin: 11/04/18 14:34 Dose: 4 mg Documented by: Polyethylene Glycol (Miralax Powder Packet) 17 gm PO DAILY PRN PRN Reason: Constipation Prazosin HCl (Prazosin Hcl) 1 mg PO Q8 [facility] Stop: 11/25/18 13:59 Last Admin: 11/05/18 06:21 Dose: 1 mg Documented by: (1) Pneumonia Laterality: left Lung location: unspecified part of lung Pneumonia type: due to unspecified organism Qualified Code(s): J18.9 - Pneumonia, unspecified organism
[2018-11-05] MEDS: INSULIN GLARGINE SOLOSTAR 100 UNITS/ML 3 ML PEN SC SCH (08:29)
[2018-11-05] MEDS: INSULIN ASPART 100 UNITS/ML 3 ML PEN SQ SCH ×4 (08:31→20:38)
[2018-11-05] MEDS: PANTOprazole 40 MG TAB PO SCH (08:32)
[2018-11-05] MEDS: GABAPENTIN 100 MG CAP PO SCH ×2 (08:33→12:03)
[2018-11-05] MEDS: ASPIRIN 325 MG ECTAB PO SCH (08:33)
[2018-11-05] MEDS: FUROSEMIDE 80 MG TAB PO SCH ×2 (08:34→17:22)
[2018-11-05] MEDS: ATORVASTATIN 10 MG TAB PO SCH (08:34)
[2018-11-05] MEDS: AMLODIPINE BESYLATE 5 MG TAB PO SCH (08:35)
[2018-11-05] MEDS: METOPROLOL TARTRATE 25 MG TAB PO SCH ×2 (08:35→19:59)
[2018-11-05] MEDS: ENOXAPARIN INJ 40 MG/0.4 ML SYR SQ SCH ×2 (08:36→20:00)
[2018-11-05] MEDS: NICOTINE 7 MG/24 HR TDSY TD SCH (08:37)
[2018-11-05] MEDS: BUDESONIDE/FORMOTEROL FUMARATE 160/4.5 60 PUFFS/INHALER INH SCH ×2 (08:37→20:01)
--- NOTE | 2018-11-05 09:37 | Gastroenterology Progress Note ---
Date of Service November 05, 2018 Assessment & Plan (1) Occult blood positive stool: 62 year old male with history of obesity, T2DM, hypothyroidism, CHF, COPD and other chronic comorbidities admitted w/ acute respiratory failure secondary to pneumonia, COPD&CHF exacerbation - GI asked to evaluate for gastric occult testing positive. He adamantly denies any black/bloody stools or emesis however there was report of a dark stool days ago. Both gastric occult and stool occult were positive this admission. HGB has remained stable, mild bump in BUN is noted. GI asked to re-evaluate for 3 pt drop in HGB, continual rise in BUN w/o overt evidence of GIB.DDX discussed. He is now agreeable to diagnostic EGD Strict NPO Had 2/3 regular tray at 0800 Start IV PPI bolus, drip EGD today in OR Trend H&H Monitor, document all GI output Transfuse PRN GI to follow. Thank you for allowing us to participate in the care of this patient. Please call with any acute changes, questions or concerns. Please see addendum below with additional recommendation from my supervising physician. Supervising Physician Co-Signing Physician Notes I performed a history and physical examination of the patient, including specifically on physical exam - soft, nontender abdomen. I have discussed the patient's management with Elsa. Please refer to the nurse practitioner's note for the documented findings and plan of care. Drop in H/H with elevated BUN, plan for urgent EGD today. Subjective Pt was seen and evaluated, chart reviewed. Gi aksed to re-evaluate given drop in HGB No overt sign of GI bleed No abd pain No appetite but ate about 2/3 of regular breakfast at 0815 No fever, chills, CP, SOB Review of Systems Constitutional: no fever and no body aches Respiratory: no cough and no dyspnea Cardiovascular: no chest pain, no radiating jaw, neck or arm pain, no dyspnea on exertion and no palpitations Gastrointestinal: + early satiety and + nausea; no abdominal pain, no bloating, no vomiting, no hematemesis, no pain with swallowing, no cramping, no excessive flatulence, no change in stools, no constipation, no fecal incontinenc e and no melena Physical Exam Constitutional: + morbidly obese Respiratory: Auscultation: + diminished lung sounds Cardiovascular: Rate/Rhythm: regular rate and regular rhythm Heart Sounds: no click, no gallop and no murmur Gastrointestinal (Abdomen): Inspection/Auscultation: normal bowel sounds Percussion/Palpation: abdomen soft; no guarding and abdomen not rigid Skin: no rashes, warm and dry Results & Data Vital Signs (Past 12 Hours) Vital Signs Temp Pulse Pulse Resp BP BP Pulse Ox 11/05/18 07:16 36.7 C 68 20 113/56 L 98 11/05/18 06:57 70 18 96 11/05/18 06:19 69 162/52 H 11/05/18 03:18 70 14 93 11/05/18 01:59 66 13 96 11/05/18 01:58 66 16 96 11/04/18 23:18 79 19 98 11/04/18 22:45 37.0 C 90 16 116/65 93 11/04/18 22:30 78 20 98 Laboratory Results 11/05/18 11/05/18 11/05/18 Range/Units 07:26 06:27 06:27 WBC 8.71 (4.8-10.8) K/uL RBC 2.86 L (4.7-6.1) M/uL Hgb 9.1 L (14.0-18.0) g/dL Hct 27.6 L (42-52) % MCV 96.5 (80-100) fL MCH 31.8 (25-34) pg MCHC 33.0 (32-36) g/dL RDW Std Deviation 53.5 H (36.4-46.3) fL RDW Coeff of Neena 15.2 H (11.5-14.5) % Plt Count 157 (130-400) K/uL MPV 9.6 (7.4-10.4) fL Sodium 142 (136-145) mmol/L Potassium 5.3 H (3.5-5.1) mmol/L Chloride 102 (98-107) mmol/L Carbon Dioxide 36 H (21-32) mmol/L Anion Gap 4.0 (3-11) BUN 76 H (7-18) mg/dl Creatinine 1.38 (0.6-1.4) mg/dl Est Cr Clr Drug Dosing 96.0 ml/min Est GFR ( Amer) 62.2 Est GFR (Non-Af Amer) 53.6 BUN/Creatinine Ratio 55.4 H (10-20) Glucose 199 H (70-99) mg/dl POC Glucose 228 H (70-99) Calcium 8.4 L (8.5-10.1) mg/dl Urine Color Urine Appearance (Clear) Urine pH (4.5-7.5) Ur Specific [place] (1.000-1.030) Urine Protein (Negative) Urine Glucose (UA) (Negative) Urine Ketones (Negative) Urine Blood (Negative) Urine Nitrite (Negative) Urine Bilirubin (Negative) Urine Urobilinogen (Negative) Ur Leukocyte Esterase (Negative) Urine WBC (Auto) (0-5) /hpf Urine RBC (Auto) (0-4) /hpf U Hyaline Cast (Auto) (0-5) /lpf U Epithel Cells (Auto) (0-5) /lpf Urine Bacteria (Auto) (Negative) 11/04/18 11/04/18 11/04/18 Range/Units 20:43 16:27 15:30 WBC (4.8-10.8) K/uL RBC (4.7-6.1) M/uL Hgb (14.0-18.0) g/dL Hct (42-52) % MCV (80-100) fL MCH (25-34) pg MCHC (32-36) g/dL RDW Std Deviation (36.4-46.3) fL RDW Coeff of Neena (11.5-14.5) % Plt Count (130-400) K/uL MPV (7.4-10.4) fL Sodium (136-145) mmol/L Potassium (3.5-5.1) mmol/L Chloride (98-107) mmol/L Carbon Dioxide (21-32) mmol/L Anion Gap (3-11) BUN (7-18) mg/dl Creatinine (0.6-1.4) mg/dl Est Cr Clr Drug Dosing ml/min Est GFR ( Amer) Est GFR (Non-Af Amer) BUN/Creatinine Ratio (10-20) Glucose (70-99) mg/dl POC Glucose 187 H 173 H (70-99) Calcium (8.5-10.1) mg/dl Urine Color Yellow Urine Appearance Clear (Clear) Urine pH 5.0 (4.5-7.5) Ur Specific [place] 1.019 (1.000-1.030) Urine Protein Negative (Negative) Urine Glucose (UA) Negative (Negative) Urine Ketones Negative (Negative) Urine Blood Trace H (Negative) Urine Nitrite Negative (Negative) Urine Bilirubin Negative (Negative) Urine Urobilinogen Negative (Negative) Ur Leukocyte Esterase Negative (Negative) Urine WBC (Auto) 0 (0-5) /hpf Urine RBC (Auto) 10-30 H (0-4) /hpf U Hyaline Cast (Auto) 0 (0-5) /lpf U Epithel Cells (Auto) 0-5 (0-5) /lpf Urine Bacteria (Auto) Negative (Negative) 11/04/18 11/04/18 Range/Units 10:48 07:18 WBC (4.8-10.8) K/uL RBC (4.7-6.1) M/uL Hgb (14.0-18.0) g/dL Hct (42-52) % MCV (80-100) fL MCH (25-34) pg MCHC (32-36) g/dL RDW Std Deviation (36.4-46.3) fL RDW Coeff of Neena (11.5-14.5) % Plt Count (130-400) K/uL MPV (7.4-10.4) fL Sodium (136-145) mmol/L Potassium (3.5-5.1) mmol/L Chloride (98-107) mmol/L Carbon Dioxide (21-32) mmol/L Anion Gap (3-11) BUN (7-18) mg/dl Creatinine (0.6-1.4) mg/dl Est Cr Clr Drug Dosing ml/min Est GFR ( Amer) Est GFR (Non-Af Amer) BUN/Creatinine Ratio (10-20) Glucose (70-99) mg/dl POC Glucose 173 H 198 H (70-99) Calcium (8.5-10.1) mg/dl Urine Color Urine Appearance (Clear) Urine pH (4.5-7.5) Ur Specific [place] (1.000-1.030) Urine Protein (Negative) Urine Glucose (UA) (Negative) Urine Ketones (Negative) Urine Blood (Negative) Urine Nitrite (Negative) Urine Bilirubin (Negative) Urine Urobilinogen (Negative) Ur Leukocyte Esterase (Negative) Urine WBC (Auto) (0-5) /hpf Urine RBC (Auto) (0-4) /hpf U Hyaline Cast (Auto) (0-5) /lpf U Epithel Cells (Auto) (0-5) /lpf Urine Bacteria (Auto) (Negative)
--- NOTE | 2018-11-05 10:50 | Anesthesiology Consultation ---
Date of Service November 05, 2018 Assessment & Plan Chart Review Chart Review: Acceptable Risk for Surgery and Patient NOT seen in Pre Admission Testing Consults Requested none Pt has been followed/managed by elevator repair mechanic History Surgery Operation Date: 11/05/18 07:00 Proposed Procedures p Esophagogastroduodenoscopy - Galina Mcgovern MD Height/Weight Height: 1.7 m Weight: 214.5 kg Allergies Allergy/AdvReac Type Severity Reaction Status Date / Time No Known Allergies Allergy Verified 06/02/16 11:34 Medications Home Medications Medication Instructions Recorded Confirmed Last Taken amlodipine 2.5 mg PO DAILY 10/24/18 10/24/18 Unknown aspirin 325 mg PO DAILY 10/24/18 10/24/18 Unknown atorvastatin 10 mg PO DAILY 10/24/18 10/24/18 Unknown fluticasone propionate 2 spray INTRANASAL DAILY 10/24/18 10/24/18 Unknown furosemide 40 mg PO BID 10/24/18 10/24/18 Unknown gabapentin 100 mg PO UD 10/24/18 10/24/18 Unknown insulin NPH and regular human 65 unit SUBCUT PM 10/24/18 10/24/18 Unknown [Novolin 70/30 U-100 Insulin] insulin NPH and regular human 95 unit SUBCUT QAM 10/24/18 10/24/18 Unknown [Novolin 70/30 U-100 Insulin] levothyroxine 25 mcg PO DAILY 10/24/18 10/24/18 Unknown levothyroxine 200 mcg PO DAILY 10/24/18 10/24/18 Unknown metoprolol succinate 25 mg PO DAILY 10/24/18 10/24/18 Unknown omeprazole magnesium [Prilosec OTC] 10 mg PO DAILY 10/24/18 10/24/18 Unknown Active Medications Generic Name Dose Route Start Last Admin Trade Name Freq PRN Reason Stop Dose Admin Al Hydrox/Mg Hydrox/Simethicone 30 ml 11/04/18 23:29 11/05/18 00:03 Maalox Max PO 12/04/18 23:28 30 ml Q6H PRN Administration Indigestion Albuterol 3 ml 10/31/18 18:45 11/05/18 06:57 Duoneb INH 11/30/18 18:44 3 ml Q6R CAROL ANN Administration Amlodipine Besylate 10 mg 10/27/18 09:00 11/05/18 08:35 Norvasc PO 11/26/18 08:59 10 mg QAM CAROL ANN Administration Aspirin 325 mg 10/28/18 09:00 11/05/18 08:33 Ecotrin PO 11/25/18 08:59 325 mg DAILY CAROL ANN Administration Atorvastatin Calcium 10 mg 10/25/18 09:00 11/05/18 08:34 Lipitor PO 11/24/18 08:59 10 mg DAILY CAROL ANN Administration Budesonide/Formoterol Fumarate 2 puffs 11/01/18 21:00 11/05/18 08:37 Symbicort 160mcg/4.5mcg INH 12/01/18 20:59 2 puffs BID CAROL ANN Administration Enoxaparin Sodium 40 mg 10/30/18 23:00 11/05/18 08:36 Lovenox SQ 11/29/18 22:59 40 mg BID CAROL ANN Administration Furosemide 80 mg 11/05/18 09:00 11/05/18 08:34 Lasix PO 12/05/18 08:59 80 mg BID17 CAROL ANN Administration Gabapentin 100 mg 10/27/18 12:00 11/05/18 08:33 Neurontin PO 11/26/18 11:59 100 mg BID@0800,1200 CAROL ANN Administration Gabapentin 300 mg 10/27/18 21:00 11/04/18 20:29 Neurontin PO 11/26/18 20:59 300 mg HS CAROL ANN Administration Insulin Aspart 0 units 10/31/18 21:00 11/05/18 08:31 Novolog Flexpen SQ 11/24/18 15:59 15 units ACHS CAROL ANN Administration Insulin Glargine 40 units 11/05/18 09:00 11/05/18 08:29 Lantus Solostar Pen SC 12/05/18 08:59 40 units QAM CAROL ANN Administration Protocol Isosorbide Dinitrate 20 mg 11/03/18 12:00 11/05/18 06:21 Isordil PO 12/03/18 11:59 20 mg DAILY@0700,1200,1700 CAROL ANN Administration Levothyroxine Sodium 50 mcg 10/25/18 06:30 11/05/18 06:20 Synthroid PO 11/24/18 06:29 50 mcg DAILYBB CAROL ANN Administration Levothyroxine Sodium 200 mcg 10/25/18 06:30 11/05/18 06:21 Synthroid PO 11/24/18 06:29 200 mcg DAILYBB CAROL ANN Administration Metoprolol Tartrate 12.5 mg 10/26/18 09:00 11/05/18 08:35 Lopressor PO 11/25/18 08:59 12.5 mg BID CAROL ANN Administration Miscellaneous 1 ea 10/25/18 21:00 11/04/18 20:26 Remove Nicoderm Patch N/A 11/24/18 20:59 1 ea HS CAROL ANN Administration Nicotine 7 mg 10/25/18 17:30 11/05/18 08:37 Nicoderm Cq TD 11/24/18 17:29 7 mg QAM CAROL ANN Administration Ondansetron HCl 4 mg 11/04/18 13:59 11/04/18 14:34 Zofran IV 12/04/18 13:59 4 mg Q8H PRN Administration nausea/vomiting Pantoprazole Sodium 40 mg 11/04/18 18:00 11/05/18 08:32 Protonix PO 12/04/18 17:59 40 mg BID CAROL ANN Administration Prazosin HCl 1 mg 10/26/18 14:00 11/05/18 06:21 Prazosin Hcl PO 11/25/18 13:59 1 mg Q8 CAROL ANN Administration NPO Date Last Intake of Fluids: 11/05/18 Time Last Intake of Fluids: 08:00 Date Last Intake of Solids: 11/05/18 Time Last Intake of Solids: 08:00 Last Intake of Solids Comment: yogurt and 3 bites of toast Past Medical History Medical History Anemia Occult blood positive stool COPD exacerbation Hypoxia Acute respiratory failure with hypoxia and hypercapnia Hypertensive urgency Elevated troponin I level per elevator repair mechanic type II event due to demand ischemia from acute respiratory failure (mucous plugging) and CHF Acute on chronic diastolic (congestive) heart failure Left bundle branch block chronic Diabetes (Chronic) Hypertension (Chronic) Hypothyroidism (Chronic) COPD (chronic obstructive pulmonary disease) (Chronic) Chronic diastolic heart failure (Chronic) Morbid obesity (Chronic) SAFIA (obstructive sleep apnea) (Chronic) Obesity hypoventilation syndrome (Chronic) Tobacco abuse (Chronic) Graves disease Past Family History Family History Mother Diabetes Hypertension Brother , dies at 44 yo from [place] Heart disease Past Surgical History Surgical History S/P correction of deviated nasal septum Social History Smoking Status: Current every day smoker Hx Alcohol Use: No Hx Substance Use: No Physical Exam Vital Signs Last Vital Signs Temp 36.7 C 11/05/18 07:16 Pulse 68 11/05/18 07:16 Resp 20 11/05/18 07:16 BP 113/56 L 11/05/18 07:16 Pulse Ox 98 11/05/18 07:16 Testing Laboratory Results 11/05/18 06:27 11/05/18 06:27 10/24/18 10/24/18 10/24/18 14:57 15:15 20:44 PT 11.2 INR 1.1 APTT 24.5 Hemoglobin A1c Urine Color Dark Yellow Urine Appearance Turbid A Urine pH 5.0 Ur Specific [place] 1.026 Urine Protein 3+ H Urine Glucose (UA) Negative Urine Ketones Negative Urine Nitrite Negative Ur Leukocyte Esterase Negative Urine WBC (Auto) 5-10 H Urine RBC (Auto) 0-4 U Hyaline Cast (Auto) 10-30 H U Epithel Cells (Auto) >30 H Urine Bacteria (Auto) Negative Blood Type O Negative Antibody Screen NEGATIVE 10/25/18 10/25/18 10/25/18 03:30 03:30 05:29 PT INR APTT > 139.0 H* 112.1 H* Hemoglobin A1c 7.3 H Urine Color Urine Appearance Urine pH Ur Specific [place] Urine Protein Urine Glucose (UA) Urine Ketones Urine Nitrite Ur Leukocyte Esterase Urine WBC (Auto) Urine RBC (Auto) U Hyaline Cast (Auto) U Epithel Cells (Auto) Urine Bacteria (Auto) Blood Type Antibody Screen 10/25/18 10/25/18 10/25/18 07:34 14:36 21:04 PT INR APTT 53.5 H* 103.9 H* 76.3 H* Hemoglobin A1c Urine Color Urine Appearance Urine pH Ur Specific [place] Urine Protein Urine Glucose (UA) Urine Ketones Urine Nitrite Ur Leukocyte Esterase Urine WBC (Auto) Urine RBC (Auto) U Hyaline Cast (Auto) U Epithel Cells (Auto) Urine Bacteria (Auto) Blood Type Antibody Screen 10/26/18 10/26/18 10/27/18 04:02 10:42 07:26 PT INR APTT 68.0 H* 60.2 H* 54.6 H* Hemoglobin A1c Urine Color Urine Appearance Urine pH Ur Specific [place] Urine Protein Urine Glucose (UA) Urine Ketones Urine Nitrite Ur Leukocyte Esterase Urine WBC (Auto) Urine RBC (Auto) U Hyaline Cast (Auto) U Epithel Cells (Auto) Urine Bacteria (Auto) Blood Type Antibody Screen 10/28/18 10/29/18 10/30/18 07:39 07:08 07:15 PT INR APTT 50.3 H* 53.5 H* 50.8 H* Hemoglobin A1c Urine Color Urine Appearance Urine pH Ur Specific [place] Urine Protein Urine Glucose (UA) Urine Ketones Urine Nitrite Ur Leukocyte Esterase Urine WBC (Auto) Urine RBC (Auto) U Hyaline Cast (Auto) U Epithel Cells (Auto) Urine Bacteria (Auto) Blood Type Antibody Screen 11/04/18 15:30 PT INR APTT Hemoglobin A1c Urine Color Yellow Urine Appearance Clear Urine pH 5.0 Ur Specific [place] 1.019 Urine Protein Negative Urine Glucose (UA) Negative Urine Ketones Negative Urine Nitrite Negative Ur Leukocyte Esterase Negative Urine WBC (Auto) 0 Urine RBC (Auto) 10-30 H U Hyaline Cast (Auto) 0 U Epithel Cells (Auto) 0-5 Urine Bacteria (Auto) Negative Blood Type Antibody Screen 11/02/18 21:36 Gram Stain - Final Sputum, Expectorated Sputum Culture - Final Moderate normal ida. 10/24/18 16:10 Acid Fast Bacilli Smear - Final Bronch Wash,Left Lower Lobe Acid Fast Bacilli Culture - Preliminary No Acid-Fast Bacilli Isolated - Report 1, Additional Report to Follow. 10/24/18 16:10 Fungal Smear - Final Bronch Wash,Left Lower Lobe Fungal Culture - Preliminary No yeast or fungus isolated - Report 2, Additional report to follow. 10/25/18 07:34 Fungal Smear - Final Blood Fungal Culture - Preliminary No yeast or fungus isolated - Report 2, Additional report to follow. 10/24/18 15:18 Blood Culture - Final Blood No growth 10/24/18 14:57 Blood Culture - Final Blood No growth 10/24/18 16:10 Gram Stain - Final Bronch Wash,Left Lower Lobe Bronchoalveolar Lavage Culture - Final Haemo.influ betalactamase neg Electrocardiogram Date: 11/04/18 Findings: + NSR @ (65 bpm) Normal sinus rhythm Left bundle branch block Abnormal ECG When compared with ECG of 26-OCT-2018 21:18, No significant change was found Confirmed by Beni Shelton ([id number]) on 11/01/2018 10:22:26 PM Chest X-Ray Date: 11/01/18 FINDINGS: There are low lung volumes. No pneumothorax. No pleural effusions. The heart remains mildly enlarged. Mild pulmonary vascular congestion has a most completely resolved. No new focal lung consolidations to suggest pneumonia. IMPRESSION: Near complete resolution of the pulmonary vascular congestion. Stable mild cardiomegaly. Echocardiogram Date: 10/25/18 LV Function: normal RWMA cannot be excluded due to limited visualization
[2018-11-05] MEDS ORDERED: METOCLOPRAMIDE HCL INJ 5 MG/ML 2 ML VIAL IV ONE (11:13)
[2018-11-05] MEDS ORDERED: PROPOFOL IV EMULSION 10 MG/ML 20 ML VIAL IV ONE (13:30)
[2018-11-05] MEDS ORDERED: LIDOCAINE HCL 2% 2 ML VIAL/AMP(20MG/ML) INFIL ONE ×2 (13:30→14:11)
[2018-11-05] MEDS ORDERED: PANTOprazole 80 MG in DEXTROSE 5% 100 ML IV ONE (13:45)
[2018-11-05] MEDS ORDERED: PANTOprazole 40 MG in DEXTROSE 5% 100 ML IV SCH (14:00)
[2018-11-05] MEDS ORDERED: KETAMINE HCL INJ 50 MG/ML 10 ML VIAL ONE (14:13)
[2018-11-05] MEDS ORDERED: MIDAZOLAM HCL 1 MG/ML 2ML VIAL ONE (14:13)
--- NOTE | 2018-11-05 14:39 | Pharmacy Report ---
Glycemic Control Progress Note - Date of Service November 05, 2018 - Scope Glycemic Pharmacist consulted for glycemic control to write orders per [facility] inpatient glycemic control protocol. - Objective Accuchecks BSG(last 24 hours):: 11/04/18 11/04/18 11/05/18 16:27 20:43 06:27 Glucose 199 H POC Glucose 173 H 187 H 11/05/18 11/05/18 11/05/18 07:26 11:49 11:51 Glucose POC Glucose 228 H 319 H* 318 H* 11/05/18 11/05/18 13:41 13:42 Glucose POC Glucose 310 H* 283 H HbA1c:: 7.3 % (4.5-5.6) H 10/25/18 03:30 - Recent Pertinent Medications The patient is currently receiving: * Basal insulin: Lantus 40-70 units every 24 hours * Correctional Insulin: Novolog Correction per scale ACHS Goal Range: Low 110 mg/dL - High 140 mg/dL Correction Factor: 8 mg/dL/unit * Prandial insulin: Per carb ratio of 1 unit per 4 grams CHO consumed - Outpatient Anti-Diabetic Meds Novolin 70/30 - 95 units in the morning and 65 units in the PM - Assessment & Plan ASSESSMENT: * See progress note from 10/28/18 for more background info, in short: * Pt receiving SQ basal bolus insulin regimen for hyperglycemia secondary to baseline DM (outpatient regimen on hold), steroids (prednisone 60 mg daily d/c'ed yesterday), NPO currently for EGD today. * Patient is currently receiving an average of 150 units of insulin per day while on steroids and 50-60 units of insulin per day while he is not on steroids. Patient received 99 units of insulin yesterday * 60 units of basal insulin * 39 units of prandial/correctional insulin * BSGs ranging 173 - 198 mg/dl over the past 24hrs * Changes needed to insulin regimen: * AM Fasting BSG = 228 mg/dl. This is slightly above goal range for patient based on inpatient targets and co-morbidities. Concern for basal insulin stacking in patient. Whenever he is not on steroids, patient requires only 36 units of insulin. Therefore will reduce to 40 units in expectation that insulin requirements will dramatically decrease. * Post-prandial BSGs were relatively stable yesterday. Expect needs to decrease without prednisone. Loosened CF erroneously to 20 (thought patient was on 18). Re-tightened at dinner to 12. Carbohydrate ratio tightened back to 4 at dinner as blood sugars increased dramatically for lunch. * Total daily dose = ~60-90 units. Needs will fluctuate based upon steroid usage. PLAN FOR INPATIENT GLYCEMIC CONTROL: * Decreasing Lantus to 40 units SQ qAM * LOOSENING correction factor to 12 mg/dl/unit * LOOSENING carb ratio to 1 unit per 4 grams CHO consumed * Continuing goal range of Low 110 mg/dL - High 140 mg/dL * Please note that the plan above was derived based on current level of insulin resistance and hospital stress. These recommendations are appropriate for inpatient admission only. Plan of care upon discharge will need to be reassessed to avoid potential outpatient hypo/hyperglycemia. Thank you.
[2018-11-05] MEDS ORDERED: BENZOCAIN/TETRACA/BUTAM SPRAY 200 APPLN/20 GM SPRY EXT ONE (14:41)
--- NOTE | 2018-11-05 14:46 | Operative Report ---
Post Operative Report Pre & Post Diagnosis Operation Date: 11/05/18 07:00 <No data on this case meets the specified criteria> Procedure Operation Date: 11/05/18 07:00 <No data on this case meets the specified criteria> Surgeon Galina Mcgovern MD Aspnet Developer None Estimated Blood Loss 0 Findings See Below (Large, clean based, cratered duodenal ulcer with no active bleeding.) Specimens None Description of Procedure EGD I attest to the content of the Intraoperative Record and any orders documented therein. Any exceptions are noted below.
[2018-11-05] MEDS ORDERED: ePHEDrine sulfate 50 MG/ML AMP IV PRN (14:47)
[2018-11-05] MEDS ORDERED: ATROPINE SULFATE 0.1 MG/ML 10ML SYR IV PRN (14:47)
[2018-11-05] MEDS ORDERED: GLYCOPYRROLATE 0.2 MG/ML VIAL ONE (14:56)
--- NOTE | 2018-11-05 15:48 | Anesthesiology Progress Note ---
Date of Service November 05, 2018 Anesthesia Post Procedure Vital Signs Vital Signs: Temp Pulse Pulse Pulse Resp BP BP 11/05/18 15:30 37.1 C 65 18 126/66 11/05/18 15:10 36.4 C L 69 15 125/70 11/05/18 15:00 74 17 127/56 L 11/05/18 14:51 36.4 C L 85 22 125/67 11/05/18 14:14 37 C 70 20 121/49 L 11/05/18 13:15 67 107/53 L 11/05/18 07:16 36.7 C 68 20 113/56 L 11/05/18 06:57 70 18 11/05/18 06:19 69 162/52 H 11/05/18 03:18 70 14 11/05/18 01:59 66 13 11/05/18 01:58 66 16 11/04/18 23:18 79 19 11/04/18 22:45 37.0 C 90 16 116/65 11/04/18 22:30 78 20 11/04/18 20:25 36.9 C 81 22 113/70 11/04/18 20:24 36.9 C 80 20 153/72 H 11/04/18 20:07 76 18 11/04/18 20:00 86 16 11/04/18 16:00 37.0 C 84 21 129/71 Pulse Ox 11/05/18 15:30 99 11/05/18 15:10 99 11/05/18 15:00 100 11/05/18 14:51 99 11/05/18 14:14 94 11/05/18 13:15 11/05/18 07:16 98 11/05/18 06:57 96 11/05/18 06:19 11/05/18 03:18 93 11/05/18 01:59 96 11/05/18 01:58 96 11/04/18 23:18 98 11/04/18 22:45 93 11/04/18 22:30 98 11/04/18 20:25 97 11/04/18 20:24 99 11/04/18 20:07 95 11/04/18 20:00 95 11/04/18 16:00 94 Transfer of Care Handoff Completed per policy Notes Mental Status: alert / awake / arousable and participated in evaluation Patient Amnestic to Procedure: Yes Nausea / Vomiting: adequately controlled Pain: adequately controlled Airway Patency, RR, SpO2: stable & adequate BP & HR: stable & adequate Hydration State: stable & adequate Anesthetic Complications: no major complications apparent
--- NOTE | 2018-11-05 15:52 | GI REPORT ---
Patient Name: Javid Douglass Procedure Date: 11/05/2018 2:17 PM Date of : 1955 Admit Type: Inpatient Age: 62 Gender: Male Attending MD: Galina Mcgovern MD Procedure: Upper GI endoscopy Providers: Galina Mcgovern MD Referring MD: Fatimah Rowland Do Indications: Suspected upper gastrointestinal bleeding, Anemia Medicines: Monitored Anesthesia Care Complications: No immediate complications. Estimated Blood Loss: Estimated blood loss: none. Procedure: Pre-Anesthesia Assessment: - Prior to the procedure, a History and Physical was performed, and patient medications and allergies were reviewed. The patient is competent. The risks and benefits of the procedure and the sedation options and risks were discussed with the patient. All questions were answered and informed consent was obtained. Patient identification and proposed procedure were verified by the physician and the nurse in the procedure room. Mental Status Examination: alert and oriented. Airway Examination: normal oropharyngeal airway and neck mobility. Respiratory Examination: clear to auscultation. CV Examination: normal. ASA Grade Assessment: IV - A patient with severe systemic disease that is a constant threat to life. After reviewing the risks and benefits, the patient was deemed in satisfactory condition to undergo the procedure. The anesthesia plan was to use monitored anesthesia care (MAC). Immediately prior to administration of medications, the patient was re-assessed for adequacy to receive sedatives. The heart rate, respiratory rate, oxygen saturations, blood pressure, adequacy of pulmonary ventilation, and response to care were monitored throughout the procedure. The physical status of the patient was re-assessed after the procedure. After obtaining informed consent, the endoscope was passed under direct vision. Throughout the procedure, the patient's blood pressure, pulse, and oxygen saturations were monitored continuously. The scope was introduced through the mouth, and advanced to the second part of duodenum. The upper GI endoscopy was accomplished without difficulty. The patient tolerated the procedure well. Findings: The examined esophagus was normal. A medium amount of food (residue) was found in the gastric fundus. Two non-bleeding cratered duodenal ulcers with no stigmata of bleeding were found in the duodenal bulb and second part of duodenum. The largest lesion was 20 mm in largest dimension. No active bleeding seen. The second portion of the duodenum was normal. Impression: - Normal esophagus. - A medium amount of food (residue) in the stomach. No blood seen. - Multiple non-bleeding duodenal ulcers with no stigmata of bleeding. - Normal second portion of the duodenum. - No specimens collected. Recommendation: - Return patient to [facility] for [facility] care. - Clear liquid diet. - Use a proton pump inhibitor IV daily for 2 days then PO BID for 3 months. - Repeat upper endoscopy in 3 months to check healing and check the stomach due to presence of food today. Galina Mcgovern MD 11/05/2018 3:51:33 PM This report has been signed electronically. Note Initiated On: 11/05/2018 2:17 PM Number of Addenda: 0 I attest to the content of the Intraoperative Record and orders documented therein, exceptions below {[id number]}
[2018-11-05] MEDS ORDERED: CONSULT PHARMACY STA (17:21)
[2018-11-05] MEDS: PANTOprazole 40 MG in DEXTROSE 5% 100 ML IV SCH (19:58)
[2018-11-05] MEDS: GABAPENTIN 300 MG CAP PO SCH (20:00)
[2018-11-06] MEDS: INSULIN ASPART 100 UNITS/ML 3 ML PEN SQ SCH ×6 (00:23→21:19)
[2018-11-06] MEDS: PANTOprazole 40 MG in DEXTROSE 5% 100 ML IV SCH ×5 (00:48→21:14)
[2018-11-06] MEDS ORDERED: INSULIN ASPART 100 UNITS/ML 3 ML PEN SQ SCH (02:00)
[2018-11-06] MEDS: ALBUT/IPRATROP 3MG/0.5MG NEB 3 ML VIAL INH SCH ×2 (02:14→07:11)
[2018-11-06] MEDS: PRAZOSIN HCL 1 MG CAP PO SCH ×3 (06:31→21:17)
[2018-11-06] MEDS: ISOSORBIDE DINITRATE 20 MG TAB PO SCH ×3 (06:31→17:36)
[2018-11-06] MEDS: LEVOTHYROXINE SODIUM 200 MCG TABLET PO SCH (06:31)
[2018-11-06] MEDS: LEVOTHYROXINE SODIUM 50 MCG TABLET PO SCH (06:31)
[2018-11-06 07:47] LABS: Hematocrit (blood only) 26.7 % (42-52); Hemoglobin 8.6 g/dL (14.0-18.0); Mean Corpuscular Hgb Conc 32.2 g/dL (32-36); Mean Corpuscular Volume 97.8 fL (80-100); Mean Platelet Volume 10.4 fL (7.4-10.4); Platelet Count 183 K/uL (130-400); RDW Coefficient of Variation 15.6 % (11.5-14.5); RDW Standard Deviation 55.1 fL (36.4-46.3); Red Blood Count 2.73 M/uL (4.7-6.1); White Blood Count 11.93 K/uL (4.8-10.8)
[2018-11-06 08:23] LABS: BUN Creatinine Ratio 51.6 (10-20); Calcium 8.2 mg/dl (8.5-10.1); Est GFR (African American) 59.1; Potassium 4.7 mmol/L (3.5-5.1)
[2018-11-06] MEDS: ASPIRIN 325 MG ECTAB PO SCH (08:47)
[2018-11-06] MEDS: AMLODIPINE BESYLATE 5 MG TAB PO SCH (08:47)
[2018-11-06] MEDS: GABAPENTIN 100 MG CAP PO SCH ×2 (08:47→12:53)
[2018-11-06] MEDS: FUROSEMIDE 80 MG TAB PO SCH ×2 (08:47→17:36)
[2018-11-06] MEDS: ATORVASTATIN 10 MG TAB PO SCH (08:47)
[2018-11-06] MEDS: INSULIN GLARGINE SOLOSTAR 100 UNITS/ML 3 ML PEN SC SCH (08:48)
[2018-11-06] MEDS: ENOXAPARIN INJ 40 MG/0.4 ML SYR SQ SCH ×2 (08:48→21:17)
[2018-11-06] MEDS: METOPROLOL TARTRATE 25 MG TAB PO SCH ×2 (08:48→21:18)
[2018-11-06] MEDS: NICOTINE 7 MG/24 HR TDSY TD SCH (08:49)
[2018-11-06] MEDS: BUDESONIDE/FORMOTEROL FUMARATE 160/4.5 60 PUFFS/INHALER INH SCH ×2 (08:50→21:17)
--- NOTE | 2018-11-06 08:53 | Anesthesiology Progress Note ---
Date of Service November 06, 2018 Anesthesia Post Procedure Vital Signs Vital Signs: Temp Pulse Pulse Pulse Resp BP BP 11/06/18 07:47 36.7 C 59 L 16 114/63 11/06/18 07:15 62 62 18 11/06/18 06:30 62 121/75 11/06/18 02:39 67 18 11/06/18 00:54 70 16 11/06/18 00:00 36.6 C 65 20 149/52 H 11/05/18 23:05 63 18 11/05/18 21:52 68 147/63 H 11/05/18 19:17 68 18 11/05/18 18:00 36.8 C 66 18 136/55 L 11/05/18 16:30 36.5 C 69 20 133/75 11/05/18 15:30 37.1 C 65 18 126/66 11/05/18 15:10 36.4 C L 69 15 125/70 11/05/18 15:00 74 17 127/56 L 11/05/18 14:51 36.4 C L 85 22 125/67 11/05/18 14:14 37 C 70 20 121/49 L 11/05/18 13:15 67 107/53 L Pulse Ox 11/06/18 07:47 93 11/06/18 07:15 93 11/06/18 06:30 11/06/18 02:39 97 11/06/18 00:54 98 11/06/18 00:00 95 11/05/18 23:05 99 11/05/18 21:52 11/05/18 19:17 97 11/05/18 18:00 97 11/05/18 16:30 98 11/05/18 15:30 99 11/05/18 15:10 99 11/05/18 15:00 100 11/05/18 14:51 99 11/05/18 14:14 94 11/05/18 13:15 Notes Mental Status: alert / awake / arousable and participated in evaluation Patient Amnestic to Procedure: Yes Nausea / Vomiting: adequately controlled Pain: adequately controlled Airway Patency, RR, SpO2: stable & adequate BP & HR: stable & adequate Hydration State: stable & adequate Anesthetic Complications: no major complications apparent and Pt Satisfied with anesthetic care
--- NOTE | 2018-11-06 09:18 | Gastroenterology Progress Note ---
Date of Service November 06, 2018 Assessment & Plan (1) Occult blood positive stool: 62 year old male with history of obesity, T2DM, hypothyroidism, CHF, COPD and other chronic comorbidities admitted w/ acute respiratory failure secondary to pneumonia, COPD&CHF exacerbation - GI asked to evaluate for gastric occult testing positive. He adamantly denies any black/bloody stools or emesis however there was report of a dark stool days ago. Both gastric occult and stool occult were positive this admission. HGB has remained stable, mild bump in BUN is noted. GI asked to re-evaluate for 3 pt drop in HGB, continual rise in BUN w/o overt evidence of GIB.DDX discussed. He is now agreeable to diagnostic EGD. S/P EGD w/ non-bleeding duodenal ulcers, no overet signs of GIB Clear liquid diet today then advance IV PPI x 48 hours PO PPI BID x 3 months Repeat EGD in 3 months Trend H&H Monitor, document all GI output Transfuse PRN GI to sign off. Thank you for allowing us to participate in the care of this patient. Please call with any acute changes, questions or concerns. Please see addendum below with additional recommendation from my supervising physician. Supervising Physician Co-Signing Physician Notes I performed a history and physical examination of the patient, including specifically on physical exam - soft, nontender abdomen. I have discussed the patient's management with Elsa. Please refer to the nurse practitioner's note for the documented findings and plan of care. H/H stable. Continue PPI. Repeat EGD as OP. Recall GI as needed. Subjective Pt was seen and evaluated, chart reviewed. S/P EGD w/ evidence of large ulcer. On PPI drip x 48 hours. Tolerating liquid diet. Tells me he is not really hungry or interested in a dietary advancement and he has mild upper abdominal burning and nausea. No vomiting. Denies any black/bloody stools. Slight drop in H&H but again no overt sign of GIB. EGD: Normal esophagus.A medium amount of food (residue) in the stomach. No blood seen. Multiple non-bleeding duodenal ulcers with no stigmata of bleeding.Normal second portion of the duodenum. No specimens collected. Review of Systems Constitutional: no fever, no body aches, no weakness and no weight loss Respiratory: no cough, no dyspnea and no pain on inspiration Cardiovascular: no chest pain, no radiating jaw, neck or arm pain, no dyspnea on exertion and no palpitations Gastrointestinal: + abdominal pain; no belching, no heartburn, no coffee ground emesis, no dysphagia, no change in bowel habits and no diarrhea/loose stools Physical Exam Constitutional: well developed, + morbidly obese and + obese; no acute distress Respiratory: no respiratory distress and no labored breathing Auscultation: lungs clear to auscultation bilaterally and + diminished lung sounds Cardiovascular: Rate/Rhythm: regular rate and regular rhythm Heart Sounds: no click, no gallop and no murmur Gastrointestinal (Abdomen): Inspection/Auscultation: abdomen normal to inspection and normal bowel sounds Percussion/Palpation: abdomen soft; no guarding and abdomen not rigid Skin: no rashes, warm and dry Results & Data Vital Signs (Past 12 Hours) Vital Signs Temp Pulse Pulse Pulse Resp BP BP 11/06/18 09:04 73 115/57 L 11/06/18 07:47 36.7 C 59 L 16 114/63 11/06/18 07:15 62 62 18 11/06/18 06:30 62 121/75 11/06/18 02:39 67 18 11/06/18 00:54 70 16 11/06/18 00:00 36.6 C 65 20 149/52 H 11/05/18 23:05 63 18 11/05/18 21:52 68 147/63 H Pulse Ox 11/06/18 09:04 11/06/18 07:47 93 11/06/18 07:15 93 11/06/18 06:30 11/06/18 02:39 97 11/06/18 00:54 98 11/06/18 00:00 95 11/05/18 23:05 99 11/05/18 21:52
[2018-11-06] MEDS ORDERED: ALBUT/IPRATROP 3MG/0.5MG NEB 3 ML VIAL INH PRN (10:23)
--- NOTE | 2018-11-06 15:55 | Hospitalist Progress Note ---
Date of Service November 06, 2018 Assessment & Plan (1) Anemia: Likely multifactorial Occult Blood positive stool H/O recent steroid use S/P EGD: Multiple non-bleeding duodenal ulcers with no stigmata of bleeding Continue Protonix ggt for 48 hours Plan to start on PO Protonix BID for 3 months Needs repeat EGD in 3 months Appreciate GI Input Transfuse PRBCs PRN OK to continue Aspirin, lovenox for now as per GI unless active bleeding/further drop in Hb Advance diet as tolerated (2) Acute on chronic diastolic (congestive) heart failure: Compensated Continue PO Lasix Fluid restriction Appreciate Cardiology Input Also on Isosorbide (3) Hyperkalemia: Not on any potassium supplements Monitor Potassium levels monitor (4) Acute respiratory failure with hypoxia and hypercapnia: Chronic Oxygen Dependency: Likely multifactorial: CHF exacerbation, COPD exacerbation, and pneumonia Prednisone discontinued due to intermittent confusion Continue bronchodilator therapy Respiratory status improved (5) COPD exacerbation: as above. (6) Pneumonia: Completed antibiotic course (7) Elevated troponin I level: likely 2/2 demand ischemia in setting of acute respiratory failure Continue ASA, statin, Metoprolol (8) Hypertensive urgency: No ACEI 2/2 hyperkalemia BP stable Continue prazosin, Isordil, Metoprolol (9) SAFIA (obstructive sleep apnea): CPAP qHS and PRN (10) Morbid obesity: counseling lifestyle changes Diet and exercised as tolerated Declined bariatric surgery consult as per Pulm (11) Diabetes: A1C:7.3 Continue ISS, lantus (12) Tobacco abuse: strongly advised to quit smoking Nicotine patch (13) DVT prophylaxis: Lovenox SQ Code Staus Full Code Disposition: Likely discharge to [facility] when stable Subjective Patient is seen and examined at bedside Denies any bleeding issues Also denies any chest pain, shortness of breath, dizziness, nausea, abdominal pain Discussed with GI today--OK with continuing Aspirin and lovenix for now Need to continue IV Protonix drip for 24 more hours Review of Systems Review of Systems: All systems reviewed & are unremarkable except as noted in HPI & below Physical Exam Physical Exam: Physical Exam: Vitals signs as noted above General Appearance:Morbidly Obese, no apparent distress Head: normocephalic, Atraumatic Eyes: normal inspection, EOMI Neck: supple, Trachea midline Respiratory/Chest: Normal breath sounds, CTA Cardiovascular: S1, S2, distant heart sounds, No murmur Abdomen/GI:Soft, Non tender, Bowel sounds present Extremities/Musculoskelatal:normal inspection, no edema Neurologic/Psych:AAOX3, grossly no focal neurological deficits Skin: normal color, warm Results & Data Vital Signs (Past 12 Hours) Vital Signs Temp Pulse Pulse Pulse Resp BP Pulse Ox 11/06/18 15:00 36.9 C 60 20 129/63 94 11/06/18 11:24 36.7 C 63 20 144/53 H 95 11/06/18 09:04 73 115/57 L 11/06/18 07:47 36.7 C 59 L 16 114/63 93 11/06/18 07:15 62 62 18 93 11/06/18 06:30 62 121/75 Laboratory Results Short CBC 11/06/18 Range/Units 07:08 WBC 11.93 H (4.8-10.8) K/uL Hgb 8.6 L (14.0-18.0) g/dL Hct 26.7 L (42-52) % Plt Count 183 (130-400) K/uL BMP 11/06/18 07:08 Sodium 141 Potassium 4.7 Chloride 102 Carbon Dioxide 36 H BUN 74 H Creatinine 1.44 H Glucose 127 H Calcium 8.2 L (1) Pneumonia Laterality: left Lung location: unspecified part of lung Pneumonia type: due to unspecified organism Qualified Code(s): J18.9 - Pneumonia, unspecified organ ism
[2018-11-06] MEDS: GABAPENTIN 300 MG CAP PO SCH (21:16)
[2018-11-07] MEDS: PANTOprazole 40 MG in DEXTROSE 5% 100 ML IV SCH ×2 (02:38→08:23)
[2018-11-07 06:08] LABS: Hematocrit (blood only) 27.5 % (42-52); Hemoglobin 8.9 g/dL (14.0-18.0); Mean Corpuscular Hgb Conc 32.4 g/dL (32-36); Mean Corpuscular Volume 96.5 fL (80-100); Mean Platelet Volume 10.1 fL (7.4-10.4); Platelet Count 185 K/uL (130-400); RDW Coefficient of Variation 15.4 % (11.5-14.5); RDW Standard Deviation 53.4 fL (36.4-46.3); Red Blood Count 2.85 M/uL (4.7-6.1); White Blood Count 8.31 K/uL (4.8-10.8)
[2018-11-07] MEDS: LEVOTHYROXINE SODIUM 200 MCG TABLET PO SCH (06:18)
[2018-11-07] MEDS: PRAZOSIN HCL 1 MG CAP PO SCH (06:18)
[2018-11-07] MEDS: LEVOTHYROXINE SODIUM 50 MCG TABLET PO SCH (06:18)
[2018-11-07] MEDS: ISOSORBIDE DINITRATE 20 MG TAB PO SCH ×2 (06:19→12:11)
[2018-11-07 06:41] LABS: BUN Creatinine Ratio 40.3 (10-20); Creatinine Clr Calc Pharmacy 91.2 ml/min; Est GFR (African American) 56.2; Est GFR (Non-African American) 48.5; Potassium 4.4 mmol/L (3.5-5.1)
[2018-11-07 07:26] VITALS: TEMP 98.1
[2018-11-07] MEDS: METOPROLOL TARTRATE 25 MG TAB PO SCH (08:26)
[2018-11-07] MEDS: GABAPENTIN 100 MG CAP PO SCH ×2 (08:26→12:11)
[2018-11-07] MEDS: ASPIRIN 325 MG ECTAB PO SCH (08:26)
[2018-11-07] MEDS: BUDESONIDE/FORMOTEROL FUMARATE 160/4.5 60 PUFFS/INHALER INH SCH (08:27)
[2018-11-07] MEDS: AMLODIPINE BESYLATE 5 MG TAB PO SCH (08:27)
[2018-11-07] MEDS: FUROSEMIDE 80 MG TAB PO SCH (08:27)
[2018-11-07] MEDS: ATORVASTATIN 10 MG TAB PO SCH (08:27)
[2018-11-07] MEDS: ENOXAPARIN INJ 40 MG/0.4 ML SYR SQ SCH (08:28)
[2018-11-07] MEDS: NICOTINE 7 MG/24 HR TDSY TD SCH (08:28)
[2018-11-07] MEDS: INSULIN ASPART 100 UNITS/ML 3 ML PEN SQ SCH ×2 (08:32→12:14)
[2018-11-07] MEDS ORDERED: INSULIN GLARGINE SOLOSTAR 100 UNITS/ML 3 ML PEN SC SCH (09:00)
--- NOTE | 2018-11-07 10:40 | Pharmacy Report ---
Glycemic Control Progress Note - Date of Service November 07, 2018 - Scope Glycemic Pharmacist consulted for glycemic control to write orders per [facility] inpatient glycemic control protocol. - Objective Accuchecks BSG(last 24 hours):: 11/06/18 11/06/18 11/06/18 11:38 16:28 20:16 Glucose POC Glucose 150 H 141 H 141 H 11/07/18 11/07/18 05:28 07:38 Glucose 170 H POC Glucose 215 H HbA1c:: 7.3 % (4.5-5.6) H 10/25/18 03:30 - Recent Pertinent Medications The patient is currently receiving: * Basal insulin: Lantus 40 units every 24 hours * Correctional Insulin: Novolog Correction per scale ACHS Goal Range: Low 110 mg/dL - High 140 mg/dL Correction Factor: 15 mg/dL/unit * Prandial insulin: Per carb ratio of 1 unit per 5 grams CHO consumed - Outpatient Anti-Diabetic Meds Novolin 70/30 - 95 units in the morning and 65 units in the PM - Assessment & Plan ASSESSMENT: * See progress note from 10/25/18 for more background info, in short: * Pt receiving SQ basal bolus insulin regimen for hyperglycemia secondary to baseline DM (outpatient regimen on hold). * Patient is currently receiving an average of 56 units of insulin per day * 40 units of basal insulin * 16 units of prandial/correctional insulin * BSGs ranging 141 - 154 mg/dl over the past 24hrs * Changes needed to insulin regimen: * AM Fasting BSG = 215 mg/dl. This is above goal range for patient based on inpatient targets and co-morbidities. Therefore Basal insulin will be increased by 10% to 45 units. * Post-prandial BSGs are in range therefore no changes needed to CF/CR. * Total daily dose = 60 units. PLAN FOR INPATIENT GLYCEMIC CONTROL: * INCREASING Lantus 45 units SQ daily * Continuing correction factor of 15 mg/dl/unit * Continuing carb ratio of 1 unit per 5 grams CHO consumed * Continuing goal range of Low 110 mg/dL - High 140 mg/dL RECOMMENDATIONS FOR DISCHARGE: * HbA1C is controlled for the patient's age and co-morbidities. Can continue home regimen as long as patient's blood sugars are controlled and he has no low blood sugars. * Please note that the plan above was derived based on current level of insulin resistance and hospital stress. These recommendations are appropriate for inpatient admission only. Plan of care upon discharge will need to be reassessed to avoid potential outpatient hypo/hyperglycemia. Thank you.
[2018-11-07 12:11] VITALS: BP 120/83
[2018-11-07 12:22] VITALS: PULSE 62
--- NOTE | 2018-11-07 13:06 | Hospitalist Progress Note ---
Date of Service November 07, 2018 Assessment & Plan (1) Anemia: Likely multifactorial Occult Blood positive stool H/O recent steroid use S/P EGD: Multiple non-bleeding duodenal ulcers with no stigmata of bleeding To complete Protonix ggt for 48 hours today Start PO Protonix BID for 3 months Needs repeat EGD in 3 months Appreciate GI Input Transfuse PRBCs PRN OK to continue Aspirin, lovenox SQ (for DVT Px) as per GI Tolerated diet (2) Acute on chronic diastolic (congestive) heart failure: Compensated Continue PO Lasix Fluid restriction Appreciate Cardiology Input Also on Isosorbide (3) Hyperkalemia: Not on any potassium supplements Resolved Monitor Potassium levels monitor (4) Acute respiratory failure with hypoxia and hypercapnia: Chronic Oxygen Dependency: Likely multifactorial: CHF exacerbation, COPD exacerbation, and pneumonia Prednisone discontinued due to intermittent confusion Continue bronchodilator therapy Respiratory status improved (5) COPD exacerbation: as above. (6) Pneumonia: Completed antibiotic course (7) Elevated troponin I level: likely 2/2 demand ischemia in setting of acute respiratory failure Continue ASA, statin, Metoprolol (8) Hypertensive urgency: No ACEI 2/2 hyperkalemia BP stable Continue prazosin, Isordil, Metoprolol (9) SAFIA (obstructive sleep apnea): CPAP qHS and PRN (10) Morbid obesity: counseling lifestyle changes Diet and exercised as tolerated Declined bariatric surgery consult as per Pulm (11) Diabetes: A1C:7.3 Continue ISS, lantus (12) Tobacco abuse: strongly advised to quit smoking Nicotine patch (13) DVT prophylaxis: Lovenox SQ Code Staus Full Code Disposition: Discharge to [facility] today Subjective Patient is seen and examined at bedside Doing well today No new complaints Hb stable Denies any bleeding issues Also denies any chest pain, shortness of breath, dizziness Planned to be discharged to rehab facility today Review of Systems Review of Systems: All systems reviewed & are unremarkable except as noted in HPI & below Physical Exam Physical Exam: Physical Exam: Vitals signs as noted above General Appearance:Morbidly Obese, no apparent distress Head: normocephalic, Atraumatic Eyes: normal inspection, EOMI Neck: supple, Trachea midline Respiratory/Chest: Normal breath sounds, CTA Cardiovascular: S1, S2, distant heart sounds, No murmur Abdomen/GI:Soft, Non tender, Bowel sounds present Extremities/Musculoskelatal:normal inspection, no edema Neurologic/Psych:AAOX3, grossly no focal neurological deficits Skin: normal color, warm Results & Data Vital Signs (Past 12 Hours) Vital Signs Temp Pulse Pulse Pulse Resp BP BP 11/07/18 12:19 36.7 C 62 80 20 120/83 118/64 11/07/18 12:09 80 120/83 11/07/18 10:15 59 L 20 118/64 11/07/18 07:50 66 11/07/18 07:26 36.7 C 57 L 21 108/64 11/07/18 07:12 66 21 Pulse Ox 11/07/18 12:19 95 11/07/18 12:09 11/07/18 10:15 95 11/07/18 07:50 11/07/18 07:26 95 11/07/18 07:12 95 Laboratory Results Short CBC 11/07/18 Range/Units 05:28 WBC 8.31 (4.8-10.8) K/uL Hgb 8.9 L (14.0-18.0) g/dL Hct 27.5 L (42-52) % Plt Count 185 (130-400) K/uL BMP 11/07/18 05:28 Sodium 139 Potassium 4.4 Chloride 101 Carbon Dioxide 35 H BUN 60 H Creatinine 1.50 H Glucose 170 H Calcium 8.0 L (1) Pneumonia Laterality: left Lung location: unspecified part of lung Pneumonia type: due to unspecified organism Qualified Code(s): J18.9 - Pneumonia, unspecified organism
--- NOTE | 2018-11-07 13:24 | Discharge Summary ---
Date of Service November 07, 2018 Admission HPI Per Admitting Provider 62 yo obese diabetic man with COPD and SAFIA presented to the ER after his brother reportedly found him lethargic around noon today. He lives with his brother who is unavailable by phone at this time, however, his daughter reports that the patient had been ill for the past week. Specifically, he was weak and didn't leave his recliner for several days. He was not taking his diuretic because he didn't want to have to walk to the bathroom. He was eating very little and still taking insulin. She states that he should be on oxygen, but uses it very rarely. He was using it this week, however. He also was supposed to be on CPAP at night but this was taken from him for insurance/financial reasons about 4 months ago. She confirmed that he is actively smoking but doesn't drink alcohol. She thinks her father (patient's brother) is the mPOA but tells me that he wants call directed to her because he doesn't handle things like this well. Per niece, the patient gives himself his own meds so med rec is being done from the outpatient list only. On arrival he was unable to respond and was tachypneic and hypoxic. 15 L nonrebreather was already in place from EMS. An IO was started in his right lower leg and he was given lidocaine IV. He became increasingly lethargic and was given aerosolized lidocaine via BIPAP and subsequently intubated and sedated. Admission Exam Per Admitting Provider CONSTITUTIONAL: morbid obesity, intubated, sedated EYES: PERRL, normal conjuctivae, no scleral icterus ENT: MMM RESPIRATORY: coarse rhonchi throughout, some air movement heard. Limited exam as patient on ventilator and difficult to move 2/2 obesity CARDIOVASCULAR: regular rate and rhythm, S1 and 2 heard without murmurs, gallops or rubs, 2+ pittind edema in lower extremities, GASTROINTESTINAL: obese, soft, nondistended MUSCULOSKELETAL: cannot assess as patient is sedated SKIN: warm and dry, could not evaluate backside NEUROLOGIC: sedated PSYCHIATRIC: unresponsive. Principal Diagnosis Discharge Information Discharge Diagnosis Acute on chronic diastolic (congestive) heart failure Acute respiratory failure with hypoxia and hypercapnia Anemia Non-bleeding duodenal ulcers Discharge Goals Decrease discomfort,Improve disease control, Improve function Discharge Activity Limitations Resume your previous activity Discharge Data Allergies Allergy/AdvReac Type Severity Reaction Status Date / Time No Known Allergies Allergy Verified 06/02/16 11:34 Consultations 10/24/18 16:22 ED Decision to Admit Stat 10/24/18 18:04 Consult Case Management - Discharge Planning Routine Consult Wire Rope Fabrication Supervisor Routine 10/26/18 09:44 Consult Cardiology Routine 10/26/18 12:19 Consult Cardiology Routine 10/30/18 06:49 Consult Pulmonology Routine 11/04/18 08:15 Consult Gastroenterology Routine Procedures Performed Operation Date: 11/05/18 07:00 Actual Procedures p Esophagogastroduodenoscopy(Not Applicable) - Galina Mcgovern MD CT heaD: 1. There is no hemorrhage, mass effect, or evidence of acute territorial ischemia by CT criteria. 2. There is an age indeterminant lacunar infarct identified in the left thalamus. 3. Paranasal sinus disease as above. Venous Doppler: No DVT within the right or left lower extremity. CXR: 1. Right lung interstitial edema pattern 2. Right pleural effusion 3. Near complete opacification left hemithorax. This may represent a combination of pleural fluid and left lung atelectasis/consolidation. CT scanning might be of benefit for further evaluation. Ordered Studies 10/24/18 16:12 CT head/brain wo con Stat 10/24/18 20:02 US point of care ultrasound Routine 10/24/18 20:03 US venous doppler LE Routine Hospital Course (1) Anemia: Likely multifactorial Occult Blood positive stool H/O recent steroid use S/P EGD: Multiple non-bleeding duodenal ulcers with no stigmata of bleeding To complete Protonix ggt for 48 hours today Start PO Protonix BID for 3 months Needs repeat EGD in 3 months Appreciate GI Input Transfuse PRBCs PRN OK to continue Aspirin, lovenox SQ (for DVT Px) as per GI Tolerated diet (2) Acute on chronic diastolic (congestive) heart failure: Compensated Continue PO Lasix Fluid restriction Appreciate Cardiology Input Also on Isosorbide (3) Hyperkalemia: Not on any potassium supplements Resolved Monitor Potassium levels monitor (4) Acute respiratory failure with hypoxia and hypercapnia: Chronic Oxygen Dependency: Likely multifactorial: CHF exacerbation, COPD exacerbation, and pneumonia Prednisone discontinued due to intermittent confusion Continue bronchodilator therapy Respiratory status improved (5) COPD exacerbation: as above. (6) Pneumonia: Completed antibiotic course (7) Elevated troponin I level: likely 2/2 demand ischemia in setting of acute respiratory failure Continue ASA, statin, Metoprolol (8) Hypertensive urgency: No ACEI 2/2 hyperkalemia BP stable Continue prazosin, Isordil, Metoprolol (9) SAFIA (obstructive sleep apnea): CPAP qHS and PRN (10) Morbid obesity: counseling lifestyle changes Diet and exercised as tolerated Declined bariatric surgery consult as per Pulm (11) Diabetes: A1C:7.3 Continue ISS, lantus (12) Tobacco abuse: strongly advised to quit smoking Nicotine patch (13) DVT prophylaxis: Lovenox SQ Code Staus Full Code Disposition: Discharge to [facility] today Total Time Total Time Spent Total Time Spent (In Minutes): 45 minutes Total Time Includes: Examination of the Patient, Discharge Planning, Medication Reconciliation, Communication With Other Providers and Other Discharge Plan Discharge Items Patient Disposition: Transfer Half-Way Fac Reason For Visit: RESPIRATORY FAILURE Discharge Diagnosis: Acute on chronic diastolic (congestive) heart failure Acute respiratory failure with hypoxia and hypercapnia Anemia Non-bleeding duodenal ulcers Discharge Goals: Decrease discomfort, Improve disease control and Improve function Activity: Resume your previous activity Exercise/Sports: Gradually increase as tolerated Non-emergency contact: Primary Care Provider, Tin Whiz Machine Operator and Environmental Analyst Call non-emergency contact if: you have any medication questions, your symptoms worsen, your pain is not controlled, your pain is worsening, your pain is unusual for you, your pain is concerning for you and you have a fever Follow-up/Referrals: Susanne Macias DO [Primary Care Provider] - Diet: Carb Consistent or DM2 and Heart Healthy Fluids: 2000ml (8 cups) Addtl Provider Instructions: Follow up with your PCP in 1 week after being discharged from Rehab facility Follow up with your Tin Whiz Machine Operator in 2-4 weeks upon dicharge Follow up with your Environmental Analyst as advised Seek immediate medical attention if your symptoms reoccur or worsen Call your Primary Care doctor if any of the following symptoms or problems start or get worse: * Shortness of breath or difficulty breathing * Wake up at night short of breath * Chest pain * Cough * Swelling of your hands, feet, or legs * More fatigued or tired with your normal activity * Palpitations - sudden fast heart beats WEIGHT * Weigh yourself every morning after using the bathroom. * Use the same scale. * Wear the same amount of clothing. * Write your weight down on a chart. * Call your Primary Care doctor if you gain more than 2-3 pounds in 1-2 days. MEDICATIONS * Use this discharge instruction sheet for medication instructions. * Take your medications at the time your doctor ordered. * Do not skip a dose of your medicines. * If you miss a dose of medicine, take it as soon as possible, but DO NOT DOUBLE A DOSE. * Read your medicine information when you get home. * Know all of the side effects of your medicine. If in doubt, ask your pharmacist * Call your Primary Care doctor's office if you have any side effects. * Be sure all of your doctors know what medicine and herbs you take (including cold, flu, and herbal medicine). Take the following with you to your follow-up doctor appointments: * Weight Chart * Medication List * List of questions Do not drink excessive alcohol, beer or wine. Prescriptions: New prazosin 1 mg Capsule 1 mg PO TID 30 Days Qty: 90 RF: 0 amlodipine [Norvasc] 5 mg Tablet 10 mg PO QAM 30 Days Qty: 60 RF: 0 furosemide 80 mg Tablet 80 mg PO BID17 30 Days Qty: 60 RF: 0 pantoprazole 40 mg Tablet,Delayed Release (Dr/Ec) 40 mg PO BID 30 Days Qty: 60 RF: 2 isosorbide dinitrate 20 mg Tablet 20 mg PO DAILY@0700,1200,1700 30 Days Qty: 90 RF: 0 Symbicort 160-4.5 mcg/actuation Hfa Aerosol Inhaler 2 puff inhalation BID 30 Days Qty: 1 RF: 1 Continued atorvastatin 10 mg tablet 10 mg PO DAILY RF: 0 Novolin 70/30 U-100 Insulin 100 unit/mL (70-30) suspension 95 unit subcut QAM RF: 0 Novolin 70/30 U-100 Insulin 100 unit/mL (70-30) suspension 65 unit subcut PM RF: 0 levothyroxine 25 mcg tablet 25 mcg PO DAILY RF: 0 levothyroxine 200 mcg tablet 200 mcg PO DAILY RF: 0 gabapentin 100 mg capsule 100 mg PO UD RF: 0 metoprolol succinate 25 mg tablet extended release 24 hr 25 mg PO DAILY RF: 0 aspirin 325 mg Tablet 325 mg PO DAILY RF: 0 fluticasone propionate 50 mcg/actuation spray,suspension 2 spray intranasal DAILY RF: 0 Prilosec OTC 20 mg Tablet,Delayed Release (Dr/Ec) 10 mg PO DAILY RF: 0 Discontinued amlodipine 2.5 mg tablet 2.5 mg PO DAILY RF: 0 furosemide 20 mg tablet 40 mg PO BID RF: 0 Stand-Alone Forms: [facility] Discharge Orders: Discharge Order (Routine); Ordered 11/07/18 Ordered By: Steve Granger Skilled Items Patient informed of condition?: Yes DNR: No Discharge Level of Care: Skilled Communicable Disease: No Discharge Prognosis: Improving Admission Data Admit Date/Time: 10/24/18 16:16 Attending Provider: Steve Granger Admit Provider: Tanmay Tavares Primary Care Provider: Susanne Macias Other Providers: Olivier Suazo ; Fatimah Rowland ; Tanmay Tavares ; Sebastián Savage ; Elsa Gomez Service: Medical Other Interventions: Discharge Summary Assessment (RN) Last Done: 11/07/18 12:19 Pending Studies at Discharge: No DC Date/Time DO NOT enter until pt leaves facility: 11/07/18 14:10
[2018-11-07 14:36] VITALS: O2SAT 97
[2018-11-08] MEDS ORDERED: PANTOprazole 40 MG TAB PO SCH (09:00)
== END 2018-11-07 14:10 | DRG 208 ==
LOC: ED 14:43 → SUATTDRO 16:16 → 1E 16:16 → 2E 10-26 19:58 → 2N 11-04 19:51
DX: I50.33 Acute on chronic diastolic (congestive) heart failure; R19.5 Other fecal abnormalities; Y92.009 Unspecified place in unspecified non-institutional (private) residence as the place of occurrence of the external cause; I13.0 Hypertensive heart and chronic kidney disease with heart failure and stage 1 through stage 4 chronic kidney disease, or unspecified chronic kidney disease; J96.22 Acute and chronic respiratory failure with hypercapnia; N18.9 Chronic kidney disease, unspecified; D64.9 Anemia, unspecified; E11.9 Type 2 diabetes mellitus without complications; Z79.82 Long term (current) use of aspirin; E87.2 Acidosis; I24.8 Other forms of acute ischemic heart disease; Z91.19 Patient's noncompliance with other medical treatment and regimen; E03.9 Hypothyroidism, unspecified; T17.800A Unspecified foreign body in other parts of respiratory tract causing asphyxiation, initial encounter; E66.2 Morbid (severe) obesity with alveolar hypoventilation; K26.9 Duodenal ulcer, unspecified as acute or chronic, without hemorrhage or perforation; F17.200 Nicotine dependence, unspecified, uncomplicated; Z82.49 Family history of ischemic heart disease and other diseases of the circulatory system; Z99.81 Dependence on supplemental oxygen; X58.XXXA Exposure to other specified factors, initial encounter; Z83.3 Family history of diabetes mellitus; Z68.45 Body mass index [BMI] 70 or greater, adult; I44.7 Left bundle-branch block, unspecified; J14 Pneumonia due to Hemophilus influenzae; J44.1 Chronic obstructive pulmonary disease with (acute) exacerbation; I16.0 Hypertensive urgency; J96.21 Acute and chronic respiratory failure with hypoxia; E87.5 Hyperkalemia; Z79.4 Long term (current) use of insulin; E78.5 Hyperlipidemia, unspecified

== ENCOUNTER 2019-05-25 23:33 | Inpatient (IN) ==
[2019-05-25 23:46] LABS: Basophils # (auto) 0.06 K/uL (0-0.2); Basophils % (auto) 0.6 %; Eosinophils # (auto) 0.37 K/uL (0-0.5); Eosinophils % (auto) 3.4 %; Hematocrit (blood only) 36.7 % (42-52); Hemoglobin 10.9 g/dL (14.0-18.0); Immature Granulocytes # (auto) 0.04 K/uL (0.00-0.02); Immature Granulocytes % (auto) 0.4 %; Lymphocytes # (auto) 4.09 K/uL (1.2-3.4); Lymphocytes % (auto) 37.7 %; Mean Corpuscular Hemoglobin 25.9 pg (25-34); Mean Corpuscular Hgb Conc 29.7 g/dL (32-36); Mean Corpuscular Volume 87.2 fL (80-100); Monocytes # (auto) 0.83 K/uL (0.11-0.59); Monocytes % (auto) 7.6 %; Neutrophils # (auto) 5.47 K/uL (1.4-6.5); Neutrophils % (auto) 50.3 %; Platelet Count 254 K/uL (130-400); RDW Coefficient of Variation 17.7 % (11.5-14.5); RDW Standard Deviation 56.2 fL (36.4-46.3); Red Blood Count 4.21 M/uL (4.7-6.1); White Blood Count 10.86 K/uL (4.8-10.8)
[2019-05-25] MEDS ORDERED: methylPREDNISolone 125 MG/2 ML VIAL IV STA (23:54)
[2019-05-25] MEDS ORDERED: FUROSEMIDE 40 MG/4 ML VIAL IV STA (23:54)
[2019-05-25] MEDS ORDERED: ALBUT/IPRATROP 3MG/0.5MG NEB 3 ML VIAL NEB ONE (23:54)
[2019-05-25 23:59] LABS: INR 1.2 (0.9-1.1); Partial Thromboplastin Ratio 0.9; Partial Thromboplastin Time 25.6 Seconds (21.0-31.0); Prothrombin Time 11.8 Seconds (9.0-12.0)
[2019-05-26 00:05] LABS: iSTAT Creatinine 1.3 mg/dl (0.6-1.3); iSTAT Hemoglobin 11.6 g/dl (14.0-18.0); iSTAT Ionized Calcium 1.13 mmol/l (1.12-1.32); iSTAT Potassium 4.2 mEq/L (3.3-5.0)
[2019-05-26 00:07] LABS: Albumin Level 2.4 gm/dl (3.4-5.0); BUN Creatinine Ratio 7.4 (10-20); Calcium 8.2 mg/dl (8.5-10.1); Creatinine Clr Calc Pharmacy 92.3 ml/min; Est GFR (African American) 60.2; Est GFR (Non-African American) 51.9; Magnesium 1.9 mg/dl (1.8-2.4); Potassium 3.9 mmol/L (3.5-5.1)
[2019-05-26 00:09] LABS: Albumin Globulin Ratio 0.4 (0.9-2); Bilirubin,Total 0.6 mg/dl (0.2-1); Globulin 5.5 gm/dl (2.5-4.0); Total Protein 7.9 gm/dl (6.4-8.2); Troponin I 0.03 ng/ml (0-0.045)
[2019-05-26 00:09] LABS: Base Excess VBG 0.2 mEq/L; HCO3 VBG 30 mmol/L; PCO2 VBG 78 mmHg (38-50); PO2 VBG 26 mmHg
[2019-05-26 00:13] LABS: Oxygen Saturation VBG < 60.0 %
[2019-05-26] MEDS ORDERED: MAGNESIUM SULFATE / D5W 1 GM/100 ML BAG IV ONE (00:44)
[2019-05-26] MEDS ORDERED: POTASSIUM CHLORIDE 20 MEQ TABCR PO STA (00:44)
[2019-05-26] MEDS ORDERED: INSULIN GLARGINE SOLOSTAR 100 UNITS/ML 3 ML PEN SC STA ×2 (00:45→04:43)
[2019-05-26 01:39] LABS: Appearance Urine Clear (Clear); Bilirubin Urine Negative (Negative); Blood Urine Trace (Negative); Color Urine Yellow; Epithelial Cell Urine Auto >30 /lpf (0-5); Glucose Urine UA Negative (Negative); Ketones Urine Negative (Negative); Leukocyte Esterase Urine Negative (Negative); Nitrite Urine Negative (Negative); Protein Urine 1+ (Negative); RBC Urine Automated 0-4 /hpf (0-4); Specific Gravity Urine 1.012 (1.000-1.030); Urobilinogen Urine Negative (Negative)
[2019-05-26 01:56] LABS: Bacteria Urine Automated 1+ (Negative)
[2019-05-26] MEDS ORDERED: METOPROLOL SUCC 25MG EXT REL TAB PO SCH (02:10)
--- NOTE | 2019-05-26 02:40 | History & Physical Report ---
Date of Service May 26, 2019 Assessment & Plan (1) Acute respiratory failure with hypoxia and hypercarbia: Acute on chronic hx chronic respiratory failure secondary to COPD on home O2 in a- doubt COPD exacerbation for now SAFIA on CPAP Secondary to decompensated heart failure hx chronic diastolic heart failure as per records Left-sided chest pain rule out ACS ARF, ? cardiorenal syndrome Leg swelling secondary to CHF rule out DVT chronic LBBB hypertension, slightly elevated hyperlipidemia on statin Rx DM2 insulin requiring, suboptimal control as of recent outpatient hemoglobin A1c of 9.21 January 2019 chronic anemia, hemoglobin at baseline hypothyroidism, euthyroid as of recent TSH November 2018 past tobacco abuse Functional disability PCU BiPAP for now Lasix-albumin given kidney dysfunction Strict I/Os, daily weights, CHF education, fluid restriction Cardiology consult RE CHF Trend troponin, TTE if with elevation Monitor renal function with diuretic Rx, may need Nephrology eval if with worsening LE venous Dopplers rule out DVT Basal insulin, ISS BG goal [id number], carb count coverage, update hemoglobin A1c PT OT eval DVT prophylaxis. Heparin subcu Full code ADDENDUM : 05/26, 6:50 AM Made aware by RN of second troponin result of 1.56 from 0.03 on admission. BSGs persistently above 300s. AP ACS Uncontrolled hyperglycemia Add IV heparin to patient's ASA, beta-kate, statin Rx, trend troponin, TTE RE troponin elevation N.p.o. for now until patient seen by Cardiology IV insulin interim Will relay to AM provider. History of Present Illness Chief Complaint: Shortness of breath, low O2 Primary Care Provider: Susanne Macias, History obtained from patient and records. Medical history significant for chronic respiratory failure secondary to COPD on home O2 in a.m., SAFIA on CPAP, chronic diastolic heart failure as per records, chronic LBBB, hypertension, hyperlipidemia, DM 2 insulin requiring, chronic anemia (baseline hemoglobin 9-10), hypothyroidism, past tobacco abuse. Recent confinement October 2018 for decompensated heart failure, respiratory failure. Occult GI bleed attributed to nonbleeding duodenal ulcers on EGD. Patient completed Protonix course. Patient discharged to [facility] for rehab. Patient seen at the ER yesterday morning after sliding off the edge of his recliner which led to patient landing on his bottom and trouble getting up. No chest pain, no S OB. Admits to some fluid retention with abdominal distention, leg swelling despite compliance with home diuretic. Unable to weigh himself at home as rating scales do not work as per outpatient care notes. Denies NSAID intake/dietary indiscretion. Patient does not feel safe at home, unable to care for himself. At the ER yesterday a.m., patient received neb treatment for pulmonary edema on CXR. Patient discharged to [facility]hab facility from the ER. Patient was being bathed last night at rehab facility when he noticed increasing shortness of breath. Transient achy left-sided chest discomfort. No unusual cough, flulike symptoms. O2 sats noted to be 50s. At the ER, BiPAP initiated. Patient received IV Lasix, IV Solu-Medrol at the ER. Patient currently feeling better. 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 Allergies Allergy/AdvReac Type Severity Reaction Status Date / Time pollen extracts Allergy Mild sneezing/watery Verified 05/26/19 00:14 eyes Home Medications Home Medications Medication Instructions Recorded Confirmed Type aspirin 325 mg PO QAM 10/24/18 05/26/19 History atorvastatin 10 mg PO 10/24/18 05/26/19 History fluticasone propionate 2 spray INTRANASAL QA 10/24/18 05/26/19 History levothyroxine 25 mcg PO QAM 10/24/18 05/26/19 History levothyroxine 200 mcg PO QA 10/24/18 05/26/19 History metoprolol succinate 25 mg PO QA 10/24/18 05/26/19 History amlodipine 10 mg PO QAM 12/08/18 05/26/19 History fluticasone furoate-vilanterol 1 inh INHALATION QA 12/08/18 05/26/19 History [Breo Ellipta] furosemide [Lasix] 80 mg PO BID 12/08/18 05/26/19 History insulin glargine [Lantus Solostar 68 unit SUBCUT HS 12/08/18 05/26/19 History U-100 Insulin] insulin lispro [Humalog U-100 12 unit SUBCUT BID 12/08/18 05/26/19 History Insulin] insulin lispro [Humalog U-100 14 unit SUBCUT QDD 12/08/18 05/26/19 History Insulin] isosorbide dinitrate 20 mg PO TID 12/08/18 05/26/19 History prazosin 1 mg PO TID 12/08/18 05/26/19 History BiPap Supplies #1 ea 02/11/19 04/14/19 Rx Oxygen Home #3 liter 02/11/19 04/14/19 Rx inhalational spacing device #1 ea 02/11/19 04/14/19 Rx pantoprazole 40 mg tablet,delayed 40 mg PO BID 02/11/19 05/26/19 History release gabapentin 100 mg PO TID 04/14/19 05/26/19 History Past Med/Surg History Medical History Anemia Chronic diastolic heart failure (Chronic) COPD (chronic obstructive pulmonary disease) (Chronic) inhalers daily/prn and oxygen 2L n/c Diabetes mellitus, type 2 Elevated 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 event due to demand ischemia from acute respiratory failure (mucous plugging) and CHF Graves disease History of gastric ulcer Hyperlipidemia Hypertension (Chronic) Hypothyroidism (Chronic) Hypoxia Left bundle branch block chronic Morbid obesity with BMI of 50.0-59.9, adult Obesity hypoventilation syndrome (Chronic) On home oxygen therapy 2L N/C at all times SAFIA (obstructive sleep apnea) (Chronic) cpap--2L oxygen Surgical History History of [place] [facility] [place] History of colonoscopy History of endoscopic sinus surgery History of esophagogastroduodenoscopy (EGD) History of tooth extraction History of wisdom tooth extraction S/P correction of deviated nasal septum Family History Mother Diabetes Hypertension Brother , dies at 44 yo from [place] Heart disease Other No family history of adverse response to anesthesia Social History Preferred Language: [place] Communication Ability: Effective 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 Beliefs That Will Affect Care: None marital status: single Current Living Situation: Rehab Current Living Situation Comment: Lives with brother current occupational status: unemployed Other Information That Helps Us Care for You: No Feels Safe at Home: Yes Safety Concerns: Feels Safe At This Time Smoking Status: Current every day smoker Cigarettes Per Day: 10 ; Second Hand Exposure: Yes (family members smoked) ; Hx Alcohol Use: No Hx Substance Use: No Review of Systems Review of Systems: As per HPI, all 10 systems reviewed, all other ROS negative Physical Exam Physical Exam: GENERAL: Comfortable, morbidly obese, no respiratory distress SKIN: Pallor, warm HEENT: Alopecia, pale palpebral conjunctivae, no ptosis, dry buccal mucosa, BiPAP in place NECK : Supple, short neck, no tenderness CHEST : Decreased breath sounds, no tenderness HEART : Tachycardic, no obvious murmurs ABDOMEN: distention, nontender EXTREMITIES : Bilateral LE swelling, venous stasis, no LE tenderness, no other conspicuous deformities noted NEUROLOGIC : Coherent, no facial asymmetry, no other gross focality Results & Data Vital Signs (Past 12 Hours) Vital Signs Temp Pulse Pulse Resp BP Pulse Ox 05/26/19 02:01 109 H 20 134/90 100 05/26/19 01:31 107 H 18 134/84 100 05/26/19 01:01 101 H 20 136/80 100 05/26/19 00:33 112 H 20 109/89 100 05/26/19 00:08 109 H 15 100 05/26/19 00:01 110 H 19 158/79 H 100 05/25/19 23:46 114 H 20 100 05/25/19 23:37 36.4 C L 125 H 28 H 175/92 H 92 Laboratory Results Laboratory Results WBC 10.86 K/uL (4.8-10.8) H 05/25/19 23:20 RBC 4.21 M/uL (4.7-6.1) L 05/25/19 23:20 Hgb 10.9 g/dL (14.0-18.0) L 05/25/19 23:20 POC Hgb 11.6 g/dl (14.0-18.0) L 05/25/19 23:50 Hct 36.7 % (42-52) L 05/25/19 23:20 POC Hct 34 % (42-52) L 05/25/19 23:50 MCV 87.2 fL (80-100) 05/25/19 23:20 MCH 25.9 pg (25-34) 05/25/19 23:20 MCHC 29.7 g/dL (32-36) L 05/25/19 23:20 RDW Std Deviation 56.2 fL (36.4-46.3) H 05/25/19 23:20 RDW Coeff of Neena 17.7 % (11.5-14.5) H 05/25/19 23:20 Plt Count 254 K/uL (130-400) 05/25/19 23:20 MPV 10.0 fL (7.4-10.4) 05/25/19 23:20 Immature Gran % (Auto) 0.4 % 05/25/19 23:20 Neut % (Auto) 50.3 % 05/25/19 23:20 Lymph % (Auto) 37.7 % 05/25/19 23:20 [place] % (Auto) 7.6 % 05/25/19 23:20 Eos % (Auto) 3.4 % 05/25/19 23:20 Baso % (Auto) 0.6 % 05/25/19 23:20 Immature Gran # (Auto) 0.04 K/uL (0.00-0.02) H 05/25/19 23:20 Neut # (Auto) 5.47 K/uL (1.4-6.5) 05/25/19 23:20 Lymph # (Auto) 4.09 K/uL (1.2-3.4) H 05/25/19 23:20 [place] # (Auto) 0.83 K/uL (0.11-0.59) H 05/25/19 23:20 Eos # (Auto) 0.37 K/uL (0-0.5) 05/25/19 23:20 Baso # (Auto) 0.06 K/uL (0-0.2) 05/25/19 23:20 PT 11.8 Seconds (9.0-12.0) 05/25/19 23:20 INR 1.2 (0.9-1.1) H 05/25/19 23:20 APTT 25.6 Seconds (21.0-31.0) 05/25/19 23:20 PTT Ratio 0.9 05/25/19 23:20 VBG pH 7.20 (7.36-7.41) L 05/25/19 23:48 VBG pCO2 78 mmHg (38-50) H 05/25/19 23:48 VBG pO2 26 mmHg 05/25/19 23:48 VBG HCO3 30 mmol/L 05/25/19 23:48 VBG O2 Saturation < 60.0 % 05/25/19 23:48 VBG Base Excess 0.2 mEq/L 05/25/19 23:48 Barometric Pressure 735.7 mm/Hg 05/25/19 23:48 POC Sodium 141 mEq/L (135-144) 05/25/19 23:50 Sodium 139 mmol/L (136-145) 05/25/19 23:20 POC Potassium 4.2 mEq/L (3.3-5.0) 05/25/19 23:50 Potassium 3.9 mmol/L (3.5-5.1) D 05/25/19 23:20 POC Chloride 100 mEq/L (101-112) L 05/25/19 23:50 Chloride 104 mmol/L (98-107) 05/25/19 23:20 Carbon Dioxide 28 mmol/L (21-32) 05/25/19 23:20 POC Total CO2 31 mEq/l (24-31) 05/25/19 23:50 Anion Gap 7.0 (3-11) 05/25/19 23:20 POC Anion Gap 15.0 mmol/L (16-25) L 05/25/19 23:50 POC BUN 10 mg/dl (7-18) 05/25/19 23:50 BUN 10 mg/dl (7-18) 05/25/19 23:20 Creatinine 1.41 mg/dl (0.6-1.4) H D 05/25/19 23:20 POC Creatinine 1.3 mg/dl (0.6-1.3) 05/25/19 23:50 Est Cr Clr Drug Dosing 92.3 ml/min 05/25/19 23:20 Est GFR ( Amer) 60.2 05/25/19 23:20 Est GFR (Non-Af Amer) 51.9 05/25/19 23:20 BUN/Creatinine Ratio 7.4 (10-20) L 05/25/19 23:20 Glucose 255 mg/dl (70-99) H 05/25/19 23:20 POC Glucose (other) 231 mg/dl (70-99) H 05/25/19 23:50 POC Lactic Acid Dilan 3.73 mmol/L (0.90-1.70) H 05/25/19 23:46 Lactate 4.6 mmol/L (0.4-2.0) H* 05/26/19 01:25 Calcium 8.2 mg/dl (8.5-10.1) L 05/25/19 23:20 POC Ioniz Calcium Pam 1.13 mmol/l (1.12-1.32) 05/25/19 23:50 Magnesium 1.9 mg/dl (1.8-2.4) 05/25/19 23:20 Total Bilirubin 0.6 mg/dl (0.2-1) 05/25/19 23:20 AST 32 U/L (15-37) 05/25/19 23:20 ALT 19 U/L (12-78) 05/25/19 23:20 Alkaline Phosphatase 125 U/L (45-117) H 05/25/19 23:20 Troponin I 0.030 ng/ml (0-0.045) 05/25/19 23:20 NT-Pro-B Natriuret Pep 2905 pg/ml (0-900) H 05/25/19 23:20 Total Protein 7.9 gm/dl (6.4-8.2) 05/25/19 23:20 Albumin 2.4 gm/dl (3.4-5.0) L 05/25/19 23:20 Globulin 5.5 gm/dl (2.5-4.0) H 05/25/19 23:20 Albumin/Globulin Ratio 0.4 (0.9-2) L 05/25/19 23:20 Procalcitonin < 0.05 ng/ml (0-0.5) 05/25/19 23:20 Urine Color Yellow 05/26/19 01:25 Urine Appearance Clear (Clear) 05/26/19 01:25 Urine pH 5.0 (4.5-7.5) 05/26/19 01:25 Ur Specific [place] 1.012 (1.000-1.030) 05/26/19 01:25 Urine Protein 1+ (Negative) H 05/26/19 01:25 Urine Glucose (UA) Negative (Negative) 05/26/19 01:25 Urine Ketones Negative (Negative) 05/26/19 01:25 Urine Blood Trace (Negative) H 05/26/19 01:25 Urine Nitrite Negative (Negative) 05/26/19 01:25 Urine Bilirubin Negative (Negative) 05/26/19 01:25 Urine Urobilinogen Negative (Negative) 05/26/19 01:25 Ur Leukocyte Esterase Negative (Negative) 05/26/19 01:25 Urine WBC (Auto) 1-5 /hpf (0-5) 05/26/19 01:25 Urine RBC (Auto) 0-4 /hpf (0-4) 05/26/19 01:25 U Hyaline Cast (Auto) 10-30 /lpf (0-5) H 05/26/19 01:25 U Epithel Cells (Auto) >30 /lpf (0-5) H 05/26/19 01:25 Urine Bacteria (Auto) 1+ (Negative) H 05/26/19 01:25 Ur Renal Epithelial Cell Not Reportable 05/26/19 01:25 Granular Casts 5-10 /lpf (0) H 05/26/19 01:25 Diagnostic Findings Chest x-ray as per my interpretation CHF EKG as per my interpretation : Rate 115, sinus tachycardia, LAD, LAFB, LBBB
[2019-05-26] MEDS ORDERED: LEVALBUTEROL 1.25MG/0.5ML NEB INH PRN (04:28)
[2019-05-26] MEDS ORDERED: GLUCAGON FOR INJ 1 MG VIAL SQ PRN (04:28)
[2019-05-26] MEDS ORDERED: CARBOHYDRATES FOR HYPOGLYCEMIA PO PRN (04:28)
[2019-05-26] MEDS ORDERED: PROMETHAZINE HCL 12.5 MG in SODIUM CHLORIDE 0.9% 50 ML IV PRN (04:28)
[2019-05-26] MEDS ORDERED: HYDROmorphone INJ 0.5 MG/0.5 ML SYR IV PRN (04:28)
[2019-05-26] MEDS ORDERED: INSULIN ASPART 100 UNITS/ML 3 ML PEN SC SCH ×2 (04:28→07:30)
[2019-05-26] MEDS ORDERED: IPRATROPIUM BROMIDE NEB SOLN 0.02% 2.5 ML VIAL INH PRN (04:28)
[2019-05-26] MEDS ORDERED: NITROGLYCERIN SL 0.4 MG/TAB TAB SL PRN (04:28)
[2019-05-26] MEDS ORDERED: TRAMADOL HCL 50 MG TABLET PO PRN (04:28)
[2019-05-26] MEDS ORDERED: ACETAMINOPHEN 325 MG TAB PO PRN (04:28)
[2019-05-26] MEDS ORDERED: DEXTROSE 50% 50 ML SYRINGE IV PRN (04:28)
[2019-05-26] MEDS ORDERED: XOPENEX/ATROVENT 1.25mg/0.5MG NEB COMBO NEB PRN (04:28)
[2019-05-26] MEDS ORDERED: GLUCOSE 10 TABS/TUBE PO PRN (04:28)
[2019-05-26] MEDS ORDERED: GLUCOSE 40% GEL 15 GM TUBE PO PRN (04:28)
[2019-05-26] MEDS ORDERED: ALBUMIN 25% 50 ML IV ONE ×2 (04:42→06:51)
[2019-05-26] MEDS ORDERED: MICONAZOLE NITRATE POWDER 43 GM EXT PRN (05:23)
[2019-05-26 05:37] LABS: Appearance Urine Clear (Clear); Bacteria Urine Automated Negative (Negative); Bilirubin Urine Negative (Negative); Blood Urine 1+ (Negative); Color Urine Yellow; Glucose Urine UA 3+ (Negative); Ketones Urine Negative (Negative); Leukocyte Esterase Urine Negative (Negative); Nitrite Urine Negative (Negative); Protein Urine Negative (Negative); RBC Urine Automated 0-4 /hpf (0-4); Specific Gravity Urine 1.017 (1.000-1.030); Urobilinogen Urine Negative (Negative)
[2019-05-26] MEDS: LEVOTHYROXINE SODIUM 200 MCG TABLET PO SCH (05:44)
[2019-05-26] MEDS: LEVOTHYROXINE SODIUM 25 MCG TABLET PO SCH (05:45)
[2019-05-26 05:50] LABS: Basophils # (auto) 0.01 K/uL (0-0.2); Basophils % (auto) 0.1 %; Eosinophils # (auto) 0.01 K/uL (0-0.5); Eosinophils % (auto) 0.1 %; Hemoglobin 9.9 g/dL (14.0-18.0); Immature Granulocytes # (auto) 0.02 K/uL (0.00-0.02); Immature Granulocytes % (auto) 0.3 %; Lymphocytes # (auto) 0.53 K/uL (1.2-3.4); Mean Corpuscular Hemoglobin 26.1 pg (25-34); Mean Corpuscular Volume 86.8 fL (80-100); Mean Platelet Volume 9.5 fL (7.4-10.4); Monocytes # (auto) 0.07 K/uL (0.11-0.59); Monocytes % (auto) 0.9 %; Neutrophils # (auto) 6.95 K/uL (1.4-6.5); Neutrophils % (auto) 91.6 %; Platelet Count 178 K/uL (130-400); RDW Coefficient of Variation 17.6 % (11.5-14.5); RDW Standard Deviation 55.6 fL (36.4-46.3); White Blood Count 7.59 K/uL (4.8-10.8)
[2019-05-26] MEDS ORDERED: HEPARIN SOD 5,000 UNIT/0.5 ML VIAL SQ SCH (06:00)
--- NOTE | 2019-05-26 06:05 | Emergency Department Note ---
Entered by Lara Basurto acting as a scribe for History of Present Illness General Chief complaint: Respiratory Distress Stated complaint: respiratory Time Seen by Provider: 05/25/19 23:34 Source: patient and EMS History of Present Illness Onset (ago): hour(s) (just prior to arrival) Location: chest Pain Consistency: + other (episode) Quality: + other (shortness of breath) Associated symptoms: + other (negative pain); no cough and no fever/chills Treatments prior to arrival: other (Duoneb; CPAP) The patient is a 63 year old male with PMHx of COPD, diabetes, CHF, HTN, and hypothyroidism who presents to the Emergency Room with complaints of an episode of shortness of breath that began just prior to arrival. Per EMS, the patient was being bathed at [facility] when he became short of breath. EMS states that upon their arrival, the patient's oxygen saturation was in the 50s. EMS states that after giving the patient a Duoneb treatment and placing him on CPAP his oxygen saturation returned to 92%. The patient denies any cough, fever, and pain. He states that he had his oxygen on while being bathed but states that he was unable to breathe when being turned. The patient states that he is on 3L of oxygen all the time at home, and states that he is on CPAP at night but states that his CPAP machine has been broken recently. The patient states that he was seen in the ED earlier today after a fall and was sent to [facility]. Home Medications Home Medications Medication Instructions Recorded Confirmed Type aspirin 325 mg PO QA 10/24/18 05/26/19 History atorvastatin 10 mg PO HS 10/24/18 05/26/19 History fluticasone propionate 2 spray INTRANASAL QA 10/24/18 05/26/19 History levothyroxine 25 mcg PO QA 10/24/18 05/26/19 History levothyroxine 200 mcg PO QAM 10/24/18 05/26/19 History metoprolol succinate 25 mg PO QAM 10/24/18 05/26/19 History amlodipine 10 mg PO QAM 12/08/18 05/26/19 History fluticasone furoate-vilanterol 1 inh INHALATION QA 12/08/18 05/26/19 History [Breo Ellipta] furosemide [Lasix] 80 mg PO BID 12/08/18 05/26/19 History insulin glargine [Lantus Solostar 68 unit SUBCUT HS 12/08/18 05/26/19 History U-100 Insulin] insulin lispro [Humalog U-100 12 unit SUBCUT BID 12/08/18 05/26/19 History Insulin] insulin lispro [Humalog U-100 14 unit SUBCUT QDD 12/08/18 05/26/19 History Insulin] isosorbide dinitrate 20 mg PO TID 12/08/18 05/26/19 History prazosin 1 mg PO TID 12/08/18 05/26/19 History BiPap Supplies #1 ea 02/11/19 04/14/19 Rx Oxygen Home #3 liter 02/11/19 04/14/19 Rx inhalational spacing device #1 ea 02/11/19 04/14/19 Rx pantoprazole 40 mg tablet,delayed 40 mg PO BID 02/11/19 05/26/19 History release gabapentin 100 mg PO TID 04/14/19 05/26/19 History Allergies Allergy/AdvReac Type Severity Reaction Status Date / Time pollen extracts Allergy Mild sneezing/watery Verified 05/26/19 00:14 eyes Past Med/Surg History Medical History Anemia Chronic diastolic heart failure (Chronic) COPD (chronic obstructive pulmonary disease) (Chronic) inhalers daily/prn and oxygen 2L n/c Diabetes mellitus, type 2 Elevated troponin I level per grey goods examiner type II event due to demand ischemia from acute respiratory failure (mucous plugging) and CHF Graves disease History of gastric ulcer Hyperlipidemia Hypertension (Chronic) Hypothyroidism (Chronic) Hypoxia Left bundle branch block chronic Morbid obesity with BMI of 50.0-59.9, adult Obesity hypoventilation syndrome (Chronic) On home oxygen therapy 2L N/C at all times SAFIA (obstructive sleep apnea) (Chronic) cpap--2L oxygen Surgical History History of angioplasty 2003 @ [facility]--no stents History of colonoscopy History of endoscopic sinus surgery History of esophagogastroduodenoscopy (EGD) History of tooth extraction History of wisdom tooth extraction S/P correction of deviated nasal septum Family History Mother Diabetes Hypertension Brother , dies at 44 yo from [place] Heart disease Other No family history of adverse response to anesthesia Social History Preferred Language: Montenegrin Communication Ability: Effective Counseling Department Chair Required: No Beliefs That Will Affect Care: None marital status: single Current Living Situation: Rehab Current Living Situation Comment: Lives with brother current occupational status: unemployed Other Information That Helps Us Care for You: No Feels Safe at Home: Yes Safety Concerns: Feels Safe At This Time Smoking Status: Current every day smoker Cigarettes Per Day: 10 ; Second Hand Exposure: Yes (family members smoked) ; Hx Alcohol Use: No Hx Substance Use: No Review of Systems See HPI for pertinent positives & negatives. and A total of 10 systems reviewed and were otherwise negative Physical Exam Vital Signs Vital Signs - 24 hr 05/25/19 23:37 05/25/19 23:46 05/26/19 00:01 Temperature 36.4 C L Temperature Source Oral Pulse Rate 125 H 114 H 110 H Pulse Rate [Right Finger] Pulse Rate from SpO2 Sensor 111 H Respiratory Rate 28 H 20 19 Respiratory Effort / Characteristics Spontaneous Labored Respiratory Depth Normal Respiratory Pattern Regular Blood Pressure 175/92 H 158/79 H Blood Pressure Mean 119 102 Pulse Oximetry 92 100 100 Oxygen Delivery Method CPAP BiPAP Oxygen Flow Rate Fraction of Inspired Oxygen 100 60 Sepsis Recent Fever Within 48 Hours No Sepsis New/Unexplained Change in Mental Status No Sepsis Action Taken by Nursing No Action Required 05/26/19 00:08 05/26/19 00:33 05/26/19 01:01 Temperature Temperature Source Pulse Rate 112 H 101 H Pulse Rate [Right Finger] 109 H Pulse Rate from SpO2 Sensor 112 H 102 H Respiratory Rate 15 20 20 Respiratory Effort / Characteristics Non-Labored Spontaneous Respiratory Depth Respiratory Pattern Blood Pressure 109/89 136/80 Blood Pressure Mean 101 105 Pulse Oximetry 100 100 100 Oxygen Delivery Method BiPAP BiPAP BiPAP Oxygen Flow Rate 60 Fraction of Inspired Oxygen 60 Sepsis Recent Fever Within 48 Hours Sepsis New/Unexplained Change in Mental Status Sepsis Action Taken by Nursing 05/26/19 01:31 05/26/19 02:01 05/26/19 02:31 Temperature Temperature Source Pulse Rate 107 H 109 H 110 H Pulse Rate [Right Finger] Pulse Rate from SpO2 Sensor 107 H 109 H 110 H Respiratory Rate 18 20 21 Respiratory Effort / Characteristics Respiratory Depth Respiratory Pattern Blood Pressure 134/84 134/90 147/76 H Blood Pressure Mean 106 92 122 Pulse Oximetry 100 100 100 Oxygen Delivery Method BiPAP BiPAP BiPAP Oxygen Flow Rate 60 60 60 Fraction of Inspired Oxygen Sepsis Recent Fever Within 48 Hours Sepsis New/Unexplained Change in Mental Status Sepsis Action Taken by Nursing GENERAL: On CPAP. Awake, alert, well-appearing, in no distress HENT: Normocephalic, atraumatic. EYES: Normal conjunctiva. Sclera non-icteric. NECK: Supple. No nuchal rigidity. trachea midline RESPIRATORY: Coarse lung sounds. Low, distant air movement. No wheezes. Slightly increased respiratory effort. CARDIAC: Tachycardic rate. Normal rhythm. Extremities warm and well perfused. GI: Soft, non-distended. No tenderness to palpation. No rebound or guarding. RECTAL: Deferred. MUSCULOSKELETAL: Atraumatic. Chest examination reveals no tenderness. LOWER EXTREMITIES: Calves are equal size bilaterally and non-tender. 2+ lower extremity edema. NEURO: Normal sensorium. No sensory or motor deficits noted. No facial droop. SKIN: Mild candidal rash on chest nuder breasts. Warm and dry. No jaundice noted. Course Course 2333: Past medical records reviewed. The patient was evaluated in room B1. A complete history and physical exam was performed. 0020: [facility] who [facility] the patient for further evaluation. 0026: I checked on and updated the patient. He is in agreement with the treatment plan. Administered Medications Insulin Aspart (Novolog Flexpen) 0 units SC ACHS [facility] Stop: 06/25/19 04:27 Last Admin: 05/26/19 05:33 Dose: 7 units Documented by: [id number] Cosigned by: [id number] Levothyroxine Sodium (Synthroid) 25 mcg PO DAILYBB [facility] Stop: 06/25/19 06:29 Last Admin: 05/26/19 05:45 Dose: 25 mcg Documented by: [id number] Levothyroxine Sodium (Synthroid) 200 mcg PO DAILYBB [facility] Stop: 06/25/19 06:29 Last Admin: 05/26/19 05:44 Dose: 200 mcg Documented by: [id number] Metoprolol Succinate (Toprol Xl) 25 mg PO QAM CAROL ANN Stop: 06/25/19 02:09 Last Admin: 05/26/19 05:30 Dose: 25 mg Documented by: [id number] Discontinued Medications Albuterol (Duoneb) 12 ml NEB ONE ONE Stop: 05/25/19 23:55 Last Admin: 05/26/19 00:07 Dose: 12 ml Documented by: [id number] Furosemide (Lasix) 40 mg IV NOW STA Stop: 05/25/19 23:55 Last Admin: 05/26/19 00:14 Dose: 40 mg Documented by: [id number] Magnesium Sulfate/Dextrose (Magnesium Sulfate / D5w) 1 gm in 100 mls @ 100 mls/hr IV ONE ONE Stop: 05/26/19 01:43 Last Infusion: 05/26/19 02:15 Dose: 0 mls/hr Documented by: [id number] Admin: 05/26/19 01:08 Dose: 100 mls/hr Documented by: [id number] Albumin Human (Albumin 25%) 50 mls @ 50 mls/hr IV ONE ONE Stop: 05/26/19 05:41 Last Admin: 05/26/19 05:51 Dose: 50 mls/hr Documented by: [id number] Insulin Glargine (Lantus Solostar Pen) 30 units SC NOW STA Stop: 05/26/19 00:46 Last Admin: 05/26/19 01:09 Dose: 30 units Documented by: [id number] Cosigned by: [id number] Insulin Glargine (Lantus Solostar Pen) 20 units SC NOW STA Stop: 05/26/19 04:44 Last Admin: 05/26/19 05:35 Dose: 20 units Documented by: [id number] Cosigned by: [id number] Methylprednisolone (Solumedrol) 125 mg IV NOW STA Stop: 05/25/19 23:55 Last Admin: 05/26/19 00:14 Dose: 125 mg Documented by: [id number] Potassium Chloride (Klor-Con M20) 40 meq PO NOW STA Stop: 05/26/19 00:45 Last Admin: 05/26/19 01:08 Dose: 40 meq Documented by: [id number] Critical Care Time Critical Care Time: Yes Total Critical Care Time: 33 I have personally spent 33 minutes of critical care time in the direct management of this patient. This includes bedside care, interpretation of diagnostic studies, and testing, discussion with consultants, patient, and family members, and other required patient management activities. This 33 minutes is in excess of all separately billable procedures. Medical Decision Making Differential Diagnosis Differential diagnoses includes but is not limited to pneumonia, bronchitis, COPD/Asthma exacerbation, pneumothorax, pulmonary embolism, congestive heart failure, acute coronary syndrome Medical Records Attestation: I reviewed the patient's medical records. Home Medications Current Medication List: was personally reviewed by me Laboratory Data Attestation: I reviewed the patient's lab results. Result diagrams: 05/26/19 05:42 05/25/19 23:20 Lab Results 05/25/19 05/25/19 05/25/19 Range/Units 23:20 23:20 23:20 WBC 10.86 H (4.8-10.8) K/uL RBC 4.21 L (4.7-6.1) M/uL Hgb 10.9 L (14.0-18.0) g/dL POC Hgb (14.0-18.0) g/dl Hct 36.7 L (42-52) % POC Hct (42-52) % MCV 87.2 (80-100) fL MCH 25.9 (25-34) pg MCHC 29.7 L (32-36) g/dL RDW Std Deviation 56.2 H (36.4-46.3) fL RDW Coeff of Neena 17.7 H (11.5-14.5) % Plt Count 254 (130-400) K/uL MPV 10.0 (7.4-10.4) fL Immature Gran % (Auto) 0.4 % Neut % (Auto) 50.3 % Lymph % (Auto) 37.7 % [place] % (Auto) 7.6 % Eos % (Auto) 3.4 % Baso % (Auto) 0.6 % Immature Gran # (Auto) 0.04 H (0.00-0.02) K/uL Neut # (Auto) 5.47 (1.4-6.5) K/uL Lymph # (Auto) 4.09 H (1.2-3.4) K/uL [place] # (Auto) 0.83 H (0.11-0.59) K/uL Eos # (Auto) 0.37 (0-0.5) K/uL Baso # (Auto) 0.06 (0-0.2) K/uL PT 11.8 (9.0-12.0) Seconds INR 1.2 H (0.9-1.1) APTT 25.6 (21.0-31.0) Seconds PTT Ratio 0.9 VBG pH (7.36-7.41) VBG pCO2 (38-50) mmHg VBG pO2 mmHg VBG HCO3 mmol/L VBG O2 Saturation % VBG Base Excess mEq/L Barometric Pressure mm/Hg POC Sodium (135-144) mEq/L Sodium 139 (136-145) mmol/L POC Potassium (3.3-5.0) mEq/L Potassium 3.9 D (3.5-5.1) mmol/L POC Chloride (101-112) mEq/L Chloride 104 (98-107) mmol/L Carbon Dioxide 28 (21-32) mmol/L POC Total CO2 (24-31) mEq/l Anion Gap 7.0 (3-11) POC Anion Gap (16-25) mmol/L POC BUN (7-18) mg/dl BUN 10 (7-18) mg/dl Creatinine 1.41 H D (0.6-1.4) mg/dl POC Creatinine (0.6-1.3) mg/dl Est Cr Clr Drug Dosing 92.3 ml/min Est GFR ( Amer) 60.2 Est GFR (Non-Af Amer) 51.9 BUN/Creatinine Ratio 7.4 L (10-20) Glucose 255 H (70-99) mg/dl POC Glucose (other) (70-99) mg/dl POC Lactic Acid Dilan (0.90-1.70) mmol/L Lactate (0.4-2.0) mmol/L Calcium 8.2 L (8.5-10.1) mg/dl POC Ioniz Calcium Pam (1.12-1.32) mmol/l Magnesium 1.9 (1.8-2.4) mg/dl Total Bilirubin 0.6 (0.2-1) mg/dl AST 32 (15-37) U/L ALT 19 (12-78) U/L Alkaline Phosphatase 125 H (45-117) U/L Troponin I 0.030 (0-0.045) ng/ml NT-Pro-B Natriuret Pep 2905 H (0-900) pg/ml Total Protein 7.9 (6.4-8.2) gm/dl Albumin 2.4 L (3.4-5.0) gm/dl Globulin 5.5 H (2.5-4.0) gm/dl Albumin/Globulin Ratio 0.4 L (0.9-2) Procalcitonin (0-0.5) ng/ml Urine Color Urine Appearance (Clear) Urine pH (4.5-7.5) Ur Specific [place] (1.000-1.030) Urine Protein (Negative) Urine Glucose (UA) (Negative) Urine Ketones (Negative) Urine Blood (Negative) Urine Nitrite (Negative) Urine Bilirubin (Negative) Urine Urobilinogen (Negative) Ur Leukocyte Esterase (Negative) Urine WBC (Auto) (0-5) /hpf Urine RBC (Auto) (0-4) /hpf U Hyaline Cast (Auto) (0-5) /lpf U Epithel Cells (Auto) (0-5) /lpf Urine Bacteria (Auto) (Negative) Ur Renal Epithelial Cell Granular Casts (0) /lpf 05/25/19 05/25/19 05/25/19 Range/Units 23:20 23:46 23:48 WBC (4.8-10.8) K/uL RBC (4.7-6.1) M/uL Hgb (14.0-18.0) g/dL POC Hgb (14.0-18.0) g/dl Hct (42-52) % POC Hct (42-52) % MCV (80-100) fL MCH (25-34) pg MCHC (32-36) g/dL RDW Std Deviation (36.4-46.3) fL RDW Coeff of Neena (11.5-14.5) % Plt Count (130-400) K/uL MPV (7.4-10.4) fL Immature Gran % (Auto) % Neut % (Auto) % Lymph % (Auto) % [place] % (Auto) % Eos % (Auto) % Baso % (Auto) % Immature Gran # (Auto) (0.00-0.02) K/uL Neut # (Auto) (1.4-6.5) K/uL Lymph # (Auto) (1.2-3.4) K/uL [place] # (Auto) (0.11-0.59) K/uL Eos # (Auto) (0-0.5) K/uL Baso # (Auto) (0-0.2) K/uL PT (9.0-12.0) Seconds INR (0.9-1.1) APTT (21.0-31.0) Seconds PTT Ratio VBG pH 7.20 L (7.36-7.41) VBG pCO2 78 H (38-50) mmHg VBG pO2 26 mmHg VBG HCO3 30 mmol/L VBG O2 Saturation < 60.0 % VBG Base Excess 0.2 mEq/L Barometric Pressure 735.7 mm/Hg POC Sodium (135-144) mEq/L Sodium (136-145) mmol/L POC Potassium (3.3-5.0) mEq/L Potassium (3.5-5.1) mmol/L POC Chloride (101-112) mEq/L Chloride (98-107) mmol/L Carbon Dioxide (21-32) mmol/L POC Total CO2 (24-31) mEq/l Anion Gap (3-11) POC Anion Gap (16-25) mmol/L POC BUN (7-18) mg/dl BUN (7-18) mg/dl Creatinine (0.6-1.4) mg/dl POC Creatinine (0.6-1.3) mg/dl Est Cr Clr Drug Dosing ml/min Est GFR ( Amer) Est GFR (Non-Af Amer) BUN/Creatinine Ratio (10-20) Glucose (70-99) mg/dl POC Glucose (other) (70-99) mg/dl POC Lactic Acid Dilan 3.73 H (0.90-1.70) mmol/L Lactate (0.4-2.0) mmol/L Calcium (8.5-10.1) mg/dl POC Ioniz Calcium Pam (1.12-1.32) mmol/l Magnesium (1.8-2.4) mg/dl Total Bilirubin (0.2-1) mg/dl AST (15-37) U/L ALT (12-78) U/L Alkaline Phosphatase (45-117) U/L Troponin I (0-0.045) ng/ml NT-Pro-B Natriuret Pep (0-900) pg/ml Total Protein (6.4-8.2) gm/dl Albumin (3.4-5.0) gm/dl Globulin (2.5-4.0) gm/dl Albumin/Globulin Ratio (0.9-2) Procalcitonin < 0.05 (0-0.5) ng/ml Urine Color Urine Appearance (Clear) Urine pH (4.5-7.5) Ur Specific [place] (1.000-1.030) Urine Protein (Negative) Urine Glucose (UA) (Negative) Urine Ketones (Negative) Urine Blood (Negative) Urine Nitrite (Negative) Urine Bilirubin (Negative) Urine Urobilinogen (Negative) Ur Leukocyte Esterase (Negative) Urine WBC (Auto) (0-5) /hpf Urine RBC (Auto) (0-4) /hpf U Hyaline Cast (Auto) (0-5) /lpf U Epithel Cells (Auto) (0-5) /lpf Urine Bacteria (Auto) (Negative) Ur Renal Epithelial Cell Granular Casts (0) /lpf 05/25/19 05/26/19 05/26/19 Range/Units 23:50 01:25 01:25 WBC (4.8-10.8) K/uL RBC (4.7-6.1) M/uL Hgb (14.0-18.0) g/dL POC Hgb 11.6 L (14.0-18.0) g/dl Hct (42-52) % POC Hct 34 L (42-52) % MCV (80-100) fL MCH (25-34) pg MCHC (32-36) g/dL RDW Std Deviation (36.4-46.3) fL RDW Coeff of Neena (11.5-14.5) % Plt Count (130-400) K/uL MPV (7.4-10.4) fL Immature Gran % (Auto) % Neut % (Auto) % Lymph % (Auto) % [place] % (Auto) % Eos % (Auto) % Baso % (Auto) % Immature Gran # (Auto) (0.00-0.02) K/uL Neut # (Auto) (1.4-6.5) K/uL Lymph # (Auto) (1.2-3.4) K/uL [place] # (Auto) (0.11-0.59) K/uL Eos # (Auto) (0-0.5) K/uL Baso # (Auto) (0-0.2) K/uL PT (9.0-12.0) Seconds INR (0.9-1.1) APTT (21.0-31.0) Seconds PTT Ratio VBG pH (7.36-7.41) VBG pCO2 (38-50) mmHg VBG pO2 mmHg VBG HCO3 mmol/L VBG O2 Saturation % VBG Base Excess mEq/L Barometric Pressure mm/Hg POC Sodium 141 (135-144) mEq/L Sodium (136-145) mmol/L POC Potassium 4.2 (3.3-5.0) mEq/L Potassium (3.5-5.1) mmol/L POC Chloride 100 L (101-112) mEq/L Chloride (98-107) mmol/L Carbon Dioxide (21-32) mmol/L POC Total CO2 31 (24-31) mEq/l Anion Gap (3-11) POC Anion Gap 15.0 L (16-25) mmol/L POC BUN 10 (7-18) mg/dl BUN (7-18) mg/dl Creatinine (0.6-1.4) mg/dl POC Creatinine 1.3 (0.6-1.3) mg/dl Est Cr Clr Drug Dosing ml/min Est GFR ( Amer) Est GFR (Non-Af Amer) BUN/Creatinine Ratio (10-20) Glucose (70-99) mg/dl POC Glucose (other) 231 H (70-99) mg/dl POC Lactic Acid Dilan (0.90-1.70) mmol/L Lactate 4.6 H* (0.4-2.0) mmol/L Calcium (8.5-10.1) mg/dl POC Ioniz Calcium Pam 1.13 (1.12-1.32) mmol/l Magnesium (1.8-2.4) mg/dl Total Bilirubin (0.2-1) mg/dl AST (15-37) U/L ALT (12-78) U/L Alkaline Phosphatase (45-117) U/L Troponin I (0-0.045) ng/ml NT-Pro-B Natriuret Pep (0-900) pg/ml Total Protein (6.4-8.2) gm/dl Albumin (3.4-5.0) gm/dl Globulin (2.5-4.0) gm/dl Albumin/Globulin Ratio (0.9-2) Procalcitonin (0-0.5) ng/ml Urine Color Yellow Urine Appearance Clear (Clear) Urine pH 5.0 (4.5-7.5) Ur Specific [place] 1.012 (1.000-1.030) Urine Protein 1+ H (Negative) Urine Glucose (UA) Negative (Negative) Urine Ketones Negative (Negative) Urine Blood Trace H (Negative) Urine Nitrite Negative (Negative) Urine Bilirubin Negative (Negative) Urine Urobilinogen Negative (Negative) Ur Leukocyte Esterase Negative (Negative) Urine WBC (Auto) 1-5 (0-5) /hpf Urine RBC (Auto) 0-4 (0-4) /hpf U Hyaline Cast (Auto) 10-30 H (0-5) /lpf U Epithel Cells (Auto) >30 H (0-5) /lpf Urine Bacteria (Auto) 1+ H (Negative) Ur Renal Epithelial Cell Not Reportable Granular Casts 5-10 H (0) /lpf Imaging Data Attestation: I personally reviewed and interpreted this imaging study as fol lows: My Impression: ONE VIEW CHEST X-RAY: Pulmonary edema. Cardiomegaly. Trace pleural effusions. ECG Data Attestation: I personally reviewed and interpreted this ECG as follows: Indication: + SOB/dyspnea Rate (beats per minute): 117 Rhythm: + sinus tachycardia ECG Intervals/blocks: + Left bundle branch block ECG Findings: no PVCs Comparison ECG Date: from (earlier 05/25/19) Change: the following changes noted (increased rate but otherwise no change) Blood Pressure Blood Pressure Findings: Elevated blood pressure Blood Pressure Disposition: further management by hospitalist ALIZE Lyon Patient is a 63-year-old gentleman with a past medical history of COPD, diabetes, pneumonia, heart failure, hypertension presenting via ambulance due to respiratory distress from [facility]. Patient was seen here early this morning and discharged to [facility] from the emergency department. Evidently had a fall early this morning prompting earlier in evaluation. Patient does have a chronic oxygen requirement. Evidently had an acute decline when they were turning him to bathe him. EMS reports he became hypoxic into the 50s. Placed on Z-[place] and given DuoNeb. Patient's oxygen status improved with this and is feeling more comfortable upon arrival. Not in any respiratory distress upon arrival. States he is feeling improved. Denies pain complaints. Has a little bit of lower extremity swelling. His body habitus limits significant physical exam findings for fluid overload but some concern for this given his history. Chest x-ray basic labs, VBG, EKG were completed. EKG tachycardic but not significantly changed. Leukocytosis of 10.8 is noted here elevated from earlier likely stress response. Lactate elevated. X-ray with evidence of pulmonary edema but do not see remington evidence of pneumonia. BNP is elevated. Detectable troponin but not abnormal and again the patient denies pain. Lactate elevation likely from his hypoxic episode and the duo nebs he is received. Given addition of Solu-Medrol and DuoNeb here. Acidotic with an elevated CO2/hypercarbic. Maintain on bicarb. Given some Lasix for some diuresis. Patient require admission. Discussed with the [facility] hospitalist. I have a lower suspicion for acute sepsis at this juncture. Impression & Plan Acute respiratory failure with hypoxia and hypercarbia, COPD exacerbation, Pulmonary edema Discharge Plan Visit Data *Final* Discharge Date/Time: 05/26/19 03:15 Chief Complaint: Respiratory Distress Stated Complaint: respiratory ED Provider: Robert Garcia Discharge Problem: Acute respiratory failure with hypoxia and hypercarbia, COPD exacerbation, Pulmonary edema Patient Disposition: Admitted As Inpatient Discharge Instructions Interventions: ED Discharge Assessment Last Done: 05/26/19 03:15 Discharge Problem: Pulmonary edema Qualifiers: Chronicity: acute Qualified Code(s): J81.0 - Acute pulmonary edema The [facility] documentation has been prepared under my direction and personally reviewed by me in its entirety. I confirm that the note above accurately reflects all work, treatment, procedures, and medical decision making performed by me.
[2019-05-26 06:14] LABS: Partial Thromboplastin Time 26.2 Seconds (21.0-31.0)
--- NOTE | 2019-05-26 06:26 | XRay Report ---
XR chest 1V portable CLINICAL HISTORY: Dyspnea dyspnea COMPARISON STUDY: 05/25/2018 FINDINGS: Slightly progressive components of pulmonary edema. Heart remains enlarged. Diaphragms are smooth. IMPRESSION: Slightly progressive pulmonary edematous change. The above report was generated using voice recognition software. It may contain grammatical, syntax or spelling errors. Electronically signed by: Rod Wiseman M.D. 05/26/2019 6:25 AM
[2019-05-26 06:28] LABS: BUN Creatinine Ratio 8.9 (10-20); Calcium 8.4 mg/dl (8.5-10.1); Creatinine Clr Calc Pharmacy 87.8 ml/min; Est GFR (African American) 58.2; Est GFR (Non-African American) 50.2; Potassium 5.5 mmol/L (3.5-5.1)
[2019-05-26 06:34] LABS: Estimated Average Glucose 200 mg/dl; Hemoglobin A1C 8.6 % (4.5-5.6)
[2019-05-26 06:49] LABS: Beta-Hydroxybutyrate 2.74 mg/dl (0.2-2.81)
[2019-05-26 06:52] LABS: Troponin I 1.56 ng/ml (0-0.045)
[2019-05-26] MEDS ORDERED: INSULIN PROTOCOL GOAL RANGE ONE (07:00)
[2019-05-26] MEDS ORDERED: INSULIN REGULAR 250 UNITS in SODIUM CHLORIDE 0.9% 247.5 ML IV SCH (07:00)
[2019-05-26] MEDS ORDERED: DEXTROSE 5% 1,000 ML IV PRN (07:30)
[2019-05-26] MEDS ORDERED: PHARMACY GLYCEMIC MGMT CONSULT PRN (07:43)
[2019-05-26] MEDS ORDERED: PERFLUTREN LIPID MICROSPHERE (DEFINITY) IV ONE (07:50)
[2019-05-26] MEDS ORDERED: ISOSORBIDE DINITRATE 20 MG TAB PO SCH (08:00)
[2019-05-26] MEDS: ALBUMIN 25% 50 ML with FUROSEMIDE 80 MG IV SCH ×2 (08:05→20:59)
[2019-05-26] MEDS: HEPARIN SODIUM/DEXTROSE 25,000 UNITS/500 ML BAG IV SCH ×2 (08:35→19:44)
[2019-05-26] MEDS: ASPIRIN 325 MG ECTAB PO SCH (08:36)
[2019-05-26] MEDS: BREO ~ ORDER AWAITING ACTION SCH ×3 (08:37→23:15)
[2019-05-26] MEDS: PRAZOSIN HCL 1 MG CAP PO SCH ×3 (08:38→19:54)
[2019-05-26] MEDS: PANTOprazole 40 MG TAB PO SCH ×2 (08:38→19:54)
[2019-05-26] MEDS: GABAPENTIN 100 MG CAP PO SCH ×3 (08:39→19:54)
[2019-05-26] MEDS: AMLODIPINE BESYLATE 5 MG TAB PO SCH (08:39)
[2019-05-26] MEDS: FLUTICASONE PROPIONATE NA SPR 16 GM BTL SCH (08:39)
[2019-05-26] MEDS: INSULIN ASPART 100 UNITS/ML 3 ML PEN SC SCH ×3 (08:57→18:39)
[2019-05-26] MEDS ORDERED: ASPIRIN 325 MG ECTAB PO SCH (09:00)
[2019-05-26] MEDS ORDERED: INSULIN GLARGINE SOLOSTAR 100 UNITS/ML 3 ML PEN SC SCH ×3 (09:00→21:00)
[2019-05-26] MEDS ORDERED: POTASSIUM CHLORIDE 20 MEQ TABCR PO SCH (09:00)
[2019-05-26] MEDS ORDERED: ALBUMIN 25% 50 ML with FUROSEMIDE 80 MG IV SCH (09:00)
--- NOTE | 2019-05-26 09:03 | Hospitalist Progress Note ---
Date of Service May 26, 2019 Assessment & Plan (1) Acute respiratory failure with hypoxia and hypercarbia: Acute on chronic hx chronic respiratory failure secondary to COPD on home O2 in a- doubt COPD exacerbation for now SAFIA on CPAP Secondary to decompensated heart failure hx chronic diastolic heart failure as per records Left-sided chest pain rule out ACS ARF, ? cardiorenal syndrome Leg swelling secondary to CHF rule out DVT chronic LBBB hypertension, slightly elevated hyperlipidemia on statin Rx DM2 insulin requiring, suboptimal control as of recent outpatient hemoglobin A1c of 9.21 January 2019 chronic anemia, hemoglobin at baseline hypothyroidism, euthyroid as of recent TSH November 2018 past tobacco abuse Functional disability PCU BiPAP for now Lasix-albumin given kidney dysfunction Strict I/Os, daily weights, CHF education, fluid restriction Cardiology consult RE CHF Trend troponin, TTE if with elevation Monitor renal function with diuretic Rx, may need Nephrology eval if with worsening LE venous Dopplers rule out DVT Basal insulin, ISS BG goal [id number], carb count coverage, update hemoglobin A1c PT OT eval DVT prophylaxis. Heparin subcu Full code ADDENDUM : 05/26, 6:50 AM Made aware by RN of second troponin result of 1.56 from 0.03 on admission. BSGs persistently above 300s. AP ACS Uncontrolled hyperglycemia Add IV heparin to patient's as, beta-kate, statin Rx, trend troponin, TTE RE troponin elevation N.p.o. for now until patient seen by cardiology IV insulin interim Will relay to AM provider. Results & Data Vital Signs (Past 12 Hours) Vital Signs Temp Pulse Pulse Resp BP BP Pulse Ox 05/26/19 08:00 37.2 C 102 H 20 166/71 H 95 05/26/19 07:10 81 16 100 05/26/19 04:29 92 H 16 98 05/26/19 04:20 37.4 C 96 H 24 145/79 H 100 05/26/19 03:01 107 H 18 143/83 H 100 05/26/19 02:31 110 H 21 147/76 H 100 05/26/19 02:01 109 H 20 134/90 100 05/26/19 01:31 107 H 18 134/84 100 05/26/19 01:01 101 H 20 136/80 100 05/26/19 00:33 112 H 20 109/89 100 05/26/19 00:08 109 H 15 100 05/26/19 00:01 110 H 19 158/79 H 100 05/25/19 23:46 114 H 20 100 05/25/19 23:37 36.4 C L 125 H 28 H 175/92 H 92
--- NOTE | 2019-05-26 09:09 | Pharmacy Report ---
Glycemic Control Consultation - Date of Service May 26, 2019 - Scope Scope: Glycemic Pharmacist consulted by Dr Rocha on 05/26 for glycemic control and to write orders per [facility] inpatient glycemic control protocol - Objective Weight: 196.1 kg Accuchecks BSG (last 24hrs): 05/25/19 05/25/19 05/26/19 23:20 23:50 04:27 Glucose 255 H POC Glucose 310 H* POC Glucose (other) 231 H 05/26/19 05/26/19 05/26/19 04:30 05:42 07:26 Glucose 339 H* POC Glucose 334 H* 351 H* POC Glucose (other) Laboratory Data (last 24hrs): 05/25/19 05/26/19 23:20 05:42 Potassium 3.9 D 5.5 H D Carbon Dioxide 28 30 Anion Gap 7.0 3.0 Creatinine 1.41 H D 1.45 H Est Cr Clr Drug Dosing 92.3 87.8 Beta-Hydroxybutyric Acd 2.74 HbA1c: Hemoglobin A1c 8.6 % (4.5-5.6) H 05/26/19 00:01 - Recent Pertinent Medications Outpatient Anti-diabetic Regimen: * Lantus 68 units HS, humalog 14 qdd and 12 units at 08,12 daily * A1c = 8.6 % 05/26/19 Risk Factors for Insulin Resistance: * Steroids: solm 125 mg x 1 last evening * Diet: NPO - Assessment & Plan Assessment & Plan: ASSESSMENT: * 63 year old male admitted with CHF exacerbation. PMHx significant for anemia, COPD, HF, graves disease, htn, hld * Patient is type 2 diabetic managed on Lantus/humalog at home - received steroids last evening in ER; AM BSG elevated at 334 mg/dL * Pharmacy consulted for diabetes management. Per provider would like to trial basal/bolus insulin before starting insulin drip since patient with limited IV access * Patient with leg swelling and started on heparin drip due to concern for DVT/also cardiology workup pending for elevated troponin * Patient already received 30+20 for total of 50 units of Lantus this morning - this is in addition to the 68 units patient takes in evenings at home (05/25). Did verify with [facility] that patient did get home dose of Lantus 68 units on 05/25 at ~2200 in addition to 4 units of short acting insulin * Will start novolog q6 hrs/stressed outpatient dosing / patient NPO this morning * Will add scale for Lantus dosing this evening PLAN FOR INPATIENT GLYCEMIC CONTROL: * Basal insulin * Lantus 50 units this morning * Lantus HS per scale -for BSG less than 180 - give 10 units -for BSG 180-220 - give 15 units -for BSG greater than 220 - give 20 units * Bolus insulin * NovoLog per scale ACHS or Q6hrs while NPO * Goal Range: Low 110 mg/dL - High 140 mg/dL * Correction Factor: 10 mg/dL/unit * Nutritional / Prandial insulin per carb ratio of 1 unit per 4 grams CHO consumed * Please note that the plan above was derived based on current level of insulin resistance and hospital stress. These recommendations are appropriate for inpatient admission only. Plan of care upon discharge will need to be reassessed to avoid potential outpatient hypo/hyperglycemia. Thank you.
--- NOTE | 2019-05-26 09:59 | Cardiology Consultation ---
Date of Consultation May 26, 2019 Assessment & Plan (1) Acute respiratory failure with hypoxia and hypercapnia: Patient currently on BiPAP would continue for mixed respiratory failure Patient wishes retrial or testing while in hospital to allow CPAP to be restarted at home (2) Acute on chronic diastolic (congestive) heart failure: Patient notes evidence of increasing lower extremity edema abdominal bloating scrotal edema. Uncertain of a significant weight gain with difficulty weighing Exam consistent with significant volume overload We will continue IV diuretic, plan IV heparin for 48-hour watching cautiously given past history of duodenal ulcer and GI bleed in the last 8-month Echocardiogram today demonstrates mild diffuse left ear dysfunction with evidence of left bundle branch block troponins are elevated likely reflecting acute demand ischemia We will continue hypertensive therapies but increase isosorbide and metoprolol succinate (3) Elevated troponin I level: Likely secondary to acute demand ischemia with mild to moderate diffuse LV dysfunction on current echocardiogram (4) Left bundle branch block: (5) Morbid obesity: History of Present Illness Reason for Consultation: Respiratory failure Requesting Physician: DR Rocha Attending Physician: Sanjay Rocha MD History of Present Illness Patient is a 63-year-old male with complex multiple ongoing medical issues which include 1. Chronic diastolic heart failure 2. Left bundle branch block 3. Morbid obesity with hypoventilation pickwickian syndrome, O2 dependent 4. Obstructive sleep apnea currently off CPAP at home 5. Chronic anemia with duodenal ulcer October 2018 6. Type 2 diabetes mellitus, insulin requiring with poor glucose control 7. Longstanding hypertension 8. Chronic kidney disease Patient presents this admission noting a mechanical fall yesterday morning while attempting to walk to the bathroom slipped and fell. Noted no syncope or near syncope. Has been significantly dyspneic recently and has been aware of increasing lower extremity and abdominal edema. He was initially evaluated in the emergency room then transferred to [facility]. Last evening during bath and multiple position changes became acutely dyspneic with marked respiratory distress. O2 saturations were notable in the 50s. Patient was transferred emergently to [facility] her patient responded to DuoNeb CPAP and oxygen. He is received IV diuretics overnight. And is now comfortable. Patient notes sensation of chest tightness and pressure during acute event. Notes no fevers chills or productive cough. Notes no recent bleeding difficulties. Notes no dysuria hematuria. Does not follow sodium or fluid restrictions at home. Has not been using CPAP, machine broken and patient unwilling to present to the hospital for repeat testing. Takes medications generally as prescribed sugars have been running high. Allergies Allergy/AdvReac Type Severity Reaction Status Date / Time pollen extracts Allergy Mild sneezing/watery Verified 05/26/19 00:14 eyes Home Medications Home Medications Medication Instructions Recorded Confirmed Type aspirin 325 mg PO QAM 10/24/18 05/26/19 History atorvastatin 10 mg PO HS 10/24/18 05/26/19 History fluticasone propionate 2 spray INTRANASAL QAM 10/24/18 05/26/19 History levothyroxine 25 mcg PO QAM 10/24/18 05/26/19 History levothyroxine 200 mcg PO QAM 10/24/18 05/26/19 History metoprolol succinate 25 mg PO QAM 10/24/18 05/26/19 History amlodipine 10 mg PO QAM 12/08/18 05/26/19 History fluticasone furoate-vilanterol 1 inh INHALATION QAM 12/08/18 05/26/19 History [Breo Ellipta] furosemide [Lasix] 80 mg PO BID 12/08/18 05/26/19 History insulin glargine [Lantus Solostar 68 unit SUBCUT HS 12/08/18 05/26/19 History U-100 Insulin] insulin lispro [Humalog U-100 12 unit SUBCUT BID 12/08/18 05/26/19 History Insulin] insulin lispro [Humalog U-100 14 unit SUBCUT QDD 12/08/18 05/26/19 History Insulin] isosorbide dinitrate 20 mg PO TID 12/08/18 05/26/19 History prazosin 1 mg PO TID 12/08/18 05/26/19 History BiPap Supplies #1 ea 02/11/19 04/14/19 Rx Oxygen Home #3 liter 02/11/19 04/14/19 Rx inhalational spacing device #1 ea 02/11/19 04/14/19 Rx pantoprazole 40 mg tablet,delayed 40 mg PO BID 02/11/19 05/26/19 History release gabapentin 100 mg PO TID 04/14/19 05/26/19 History Patient History Medical History Anemia Chronic diastolic heart failure (Chronic) COPD (chronic obstructive pulmonary disease) (Chronic) inhalers daily/prn and oxygen 2L n/c Diabetes mellitus, type 2 Elevated troponin I level per practice 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 type II event due to demand ischemia from acute respiratory failure (mucous plugging) and CHF Graves disease History of gastric ulcer Hyperlipidemia Hypertension (Chronic) Hypothyroidism (Chronic) Hypoxia Left bundle branch block chronic Morbid obesity with BMI of 50.0-59.9, adult Obesity hypoventilation syndrome (Chronic) On home oxygen therapy 2L N/C at all times SAFIA (obstructive sleep apnea) (Chronic) cpap--2L oxygen Surgical History History of angioplasty 2003 [place] [facility] [place] History of colonoscopy History of endoscopic sinus surgery History of esophagogastroduodenoscopy (EGD) History of tooth extraction History of wisdom tooth extraction S/P correction of deviated nasal septum Family History Mother Diabetes Hypertension Brother , dies at 44 yo from [place] Heart disease Other No family history of adverse response to anesthesia Social History Preferred Language: Occitan Communication Ability: Effective Environmental Property Assessor Required: No Beliefs That Will Affect Care: None marital status: single Current Living Situation: Rehab Current Living Situation Comment: Lives with brother current occupational status: unemployed Other Information That Helps Us Care for You: No Feels Safe at Home: Yes Safety Concerns: Feels Safe At This Time Smoking Status: Current every day smoker Cigarettes Per Day: 10 ; Second Hand Exposure: Yes (family members smoked) ; Hx Alcohol Use: No Hx Substance Use: No Physical Exam Constitutional: + morbidly obese Eyes: PERRL, conjunctivae normal, anicteric sclerae ENMT: BiPAP in place Neck: + thick neck Respiratory: Auscultation: + diminished lung sounds (Diffusely with poor airflow) Cardiovascular: Rate/Rhythm: regular rate and regular rhythm Extremities: + edema (2-3+) Distant heart sound Chest (Breasts): Additional Comments: Large barrel chested Gastrointestinal (Abdomen): Extremely obese and distended with superficial palpable edema, scrotal edema Genitourinary: + scrotum abnormality (Edema) Results & Data Vital Signs (Past 12 Hours) Vital Signs Temp Pulse Pulse Resp BP BP Pulse Ox 05/26/19 08:00 37.2 C 102 H 20 166/71 H 95 05/26/19 07:10 81 16 100 05/26/19 04:29 92 H 16 98 05/26/19 04:20 37.4 C 96 H 24 145/79 H 100 05/26/19 03:01 107 H 18 143/83 H 100 05/26/19 02:31 110 H 21 147/76 H 100 05/26/19 02:01 109 H 20 134/90 100 05/26/19 01:31 107 H 18 134/84 100 05/26/19 01:01 101 H 20 136/80 100 05/26/19 00:33 112 H 20 109/89 100 05/26/19 00:08 109 H 15 100 05/26/19 00:01 110 H 19 158/79 H 100 05/25/19 23:46 114 H 20 100 05/25/19 23:37 36.4 C L 125 H 28 H 175/92 H 92 Laboratory Results Laboratory Results - last 24 hr 05/25/19 05/25/19 05/25/19 23:20 23:20 23:20 WBC 10.86 H RBC 4.21 L Hgb 10.9 L POC Hgb Hct 36.7 L POC Hct MCV 87.2 MCH 25.9 MCHC 29.7 L RDW Std Deviation 56.2 H RDW Coeff of Neena 17.7 H Plt Count 254 MPV 10.0 Immature Gran % (Auto) 0.4 Neut % (Auto) 50.3 Lymph % (Auto) 37.7 Harmon % (Auto) 7.6 Eos % (Auto) 3.4 Baso % (Auto) 0.6 Immature Gran # (Auto) 0.04 H Neut # (Auto) 5.47 Lymph # (Auto) 4.09 H Harmon # (Auto) 0.83 H Eos # (Auto) 0.37 Baso # (Auto) 0.06 PT 11.8 INR 1.2 H APTT 25.6 PTT Ratio 0.9 VBG pH VBG pCO2 VBG pO2 VBG HCO3 VBG O2 Saturation VBG Base Excess Barometric Pressure POC Sodium Sodium 139 POC Potassium Potassium 3.9 D POC Chloride Chloride 104 Carbon Dioxide 28 POC Total CO2 Anion Gap 7.0 POC Anion Gap POC BUN BUN 10 Creatinine 1.41 H D POC Creatinine Est Cr Clr Drug Dosing 92.3 Est GFR ( Amer) 60.2 Est GFR (Non-Af Amer) 51.9 BUN/Creatinine Ratio 7.4 L Glucose 255 H POC Glucose POC Glucose (other) Estimat Average Glucose Hemoglobin A1c POC Lactic Acid Dilan Lactate Calcium 8.2 L POC Ioniz Calcium Pam Magnesium 1.9 Total Bilirubin 0.6 AST 32 ALT 19 Alkaline Phosphatase 125 H Troponin I 0.030 NT-Pro-B Natriuret Pep 2905 H Total Protein 7.9 Albumin 2.4 L Globulin 5.5 H Albumin/Globulin Ratio 0.4 L Beta-Hydroxybutyric Acd Procalcitonin TSH Urine Color Urine Appearance Urine pH Ur Specific [place] Urine Protein Urine Glucose (UA) Urine Ketones Urine Blood Urine Nitrite Urine Bilirubin Urine Urobilinogen Ur Leukocyte Esterase Urine WBC (Auto) Urine RBC (Auto) U Hyaline Cast (Auto) U Epithel Cells (Auto) Urine Bacteria (Auto) Ur Renal Epithelial Cell Granular Casts Nasal Screen MRSA (PCR) 05/25/19 05/25/19 05/25/19 23:20 23:46 23:48 WBC RBC Hgb POC Hgb Hct POC Hct MCV MCH MCHC RDW Std Deviation RDW Coeff of Enena Plt Count MPV Immature Gran % (Auto) Neut % (Auto) Lymph % (Auto) Harmon % (Auto) Eos % (Auto) Baso % (Auto) Immature Gran # (Auto) Neut # (Auto) Lymph # (Auto) Harmon # (Auto) Eos # (Auto) Baso # (Auto) PT INR APTT PTT Ratio VBG pH 7.20 L VBG pCO2 78 H VBG pO2 26 VBG HCO3 30 VBG O2 Saturation < 60.0 VBG Base Excess 0.2 Barometric Pressure 735.7 POC Sodium Sodium POC Potassium Potassium POC Chloride Chloride Carbon Dioxide POC Total CO2 Anion Gap POC Anion Gap POC BUN BUN Creatinine POC Creatinine Est Cr Clr Drug Dosing Est GFR ( Amer) Est GFR (Non-Af Amer) BUN/Creatinine Ratio Glucose POC Glucose POC Glucose (other) Estimat Average Glucose Hemoglobin A1c POC Lactic Acid Dialn 3.73 H Lactate Calcium POC Ioniz Calcium Pam Magnesium Total Bilirubin AST ALT Alkaline Phosphatase Troponin I NT-Pro-B Natriuret Pep Total Protein Albumin Globulin Albumin/Globulin Ratio Beta-Hydroxybutyric Acd Procalcitonin < 0.05 TSH Urine Color Urine Appearance Urine pH Ur Specific [place] Urine Protein Urine Glucose (UA) Urine Ketones Urine Blood Urine Nitrite Urine Bilirubin Urine Urobilinogen Ur Leukocyte Esterase Urine WBC (Auto) Urine RBC (Auto) U Hyaline Cast (Auto) U Epithel Cells (Auto) Urine Bacteria (Auto) Ur Renal Epithelial Cell Granular Casts Nasal Screen MRSA (PCR) 05/25/19 05/26/19 05/26/19 23:50 00:01 01:25 WBC RBC Hgb POC Hgb 11.6 L Hct POC Hct 34 L MCV MCH MCHC RDW Std Deviation RDW Coeff of Neena Plt Count MPV Immature Gran % (Auto) Neut % (Auto) Lymph % (Auto) Harmon % (Auto) Eos % (Auto) Baso % (Auto) Immature Gran # (Auto) Neut # (Auto) Lymph # (Auto) Harmon # (Auto) Eos # (Auto) Baso # (Auto) PT INR APTT PTT Ratio VBG pH VBG pCO2 VBG pO2 VBG HCO3 VBG O2 Saturation VBG Base Excess Barometric Pressure POC Sodium 141 Sodium POC Potassium 4.2 Potassium POC Chloride 100 L Chloride Carbon Dioxide POC Total CO2 31 Anion Gap POC Anion Gap 15.0 L POC BUN 10 BUN Creatinine POC Creatinine 1.3 Est Cr Clr Drug Dosing Est GFR ( Amer) Est GFR (Non-Af Amer) BUN/Creatinine Ratio Glucose POC Glucose POC Glucose (other) 231 H Estimat Average Glucose 200 Hemoglobin A1c 8.6 H POC Lactic Acid Dilan Lactate 4.6 H* Calcium POC Ioniz Calcium Pam 1.13 Magnesium Total Bilirubin AST ALT Alkaline Phosphatase Troponin I NT-Pro-B Natriuret Pep Total Protein Albumin Globulin Albumin/Globulin Ratio Beta-Hydroxybutyric Acd Procalcitonin TSH Urine Color Urine Appearance Urine pH Ur Specific [place] Urine Protein Urine Glucose (UA) Urine Ketones Urine Blood Urine Nitrite Urine Bilirubin Urine Urobilinogen Ur Leukocyte Esterase Urine WBC (Auto) Urine RBC (Auto) U Hyaline Cast (Auto) U Epithel Cells (Auto) Urine Bacteria (Auto) Ur Renal Epithelial Cell Granular Casts Nasal Screen MRSA (PCR) 05/26/19 05/26/19 05/26/19 01:25 04:27 04:30 WBC RBC Hgb POC Hgb Hct POC Hct MCV MCH MCHC RDW Std Deviation RDW Coeff of Neena Plt Count MPV Immature Gran % (Auto) Neut % (Auto) Lymph % (Auto) Harmon % (Auto) Eos % (Auto) Baso % (Auto) Immature Gran # (Auto) Neut # (Auto) Lymph # (Auto) Harmon # (Auto) Eos # (Auto) Baso # (Auto) PT INR APTT PTT Ratio VBG pH VBG pCO2 VBG pO2 VBG HCO3 VBG O2 Saturation VBG Base Excess Barometric Pressure POC Sodium Sodium POC Potassium Potassium POC Chloride Chloride Carbon Dioxide POC Total CO2 Anion Gap POC Anion Gap POC BUN BUN Creatinine POC Creatinine Est Cr Clr Drug Dosing Est GFR ( Amer) Est GFR (Non-Af Amer) BUN/Creatinine Ratio Glucose POC Glucose 310 H* 334 H* POC Glucose (other) Estimat Average Glucose Hemoglobin A1c POC Lactic Acid Dilan Lactate Calcium POC Ioniz Calcium Pam Magnesium Total Bilirubin AST ALT Alkaline Phosphatase Troponin I NT-Pro-B Natriuret Pep Total Protein Albumin Globulin Albumin/Globulin Ratio Beta-Hydroxybutyric Acd Procalcitonin TSH Urine Color Yellow Urine Appearance Clear Urine pH 5.0 Ur Specific [place] 1.012 Urine Protein 1+ H Urine Glucose (UA) Negative Urine Ketones Negative Urine Blood Trace H Urine Nitrite Negative Urine Bilirubin Negative Urine Urobilinogen Negative Ur Leukocyte Esterase Negative Urine WBC (Auto) 1-5 Urine RBC (Auto) 0-4 U Hyaline Cast (Auto) 10-30 H U Epithel Cells (Auto) >30 H Urine Bacteria (Auto) 1+ H Ur Renal Epithelial Cell Not Reportable Granular Casts 5-10 H Nasal Screen MRSA (PCR) 05/26/19 05/26/19 05/26/19 05:00 05:13 05:42 WBC 7.59 RBC 3.80 L Hgb 9.9 L POC Hgb Hct 33.0 L POC Hct MCV 86.8 MCH 26.1 MCHC 30.0 L RDW Std Deviation 55.6 H RDW Coeff of Neena 17.6 H Plt Count 178 MPV 9.5 Immature Gran % (Auto) 0.3 Neut % (Auto) 91.6 Lymph % (Auto) 7.0 Harmon % (Auto) 0.9 Eos % (Auto) 0.1 Baso % (Auto) 0.1 Immature Gran # (Auto) 0.02 Neut # (Auto) 6.95 H Lymph # (Auto) 0.53 L Harmon # (Auto) 0.07 L Eos # (Auto) 0.01 Baso # (Auto) 0.01 PT INR APTT PTT Ratio VBG pH VBG pCO2 VBG pO2 VBG HCO3 VBG O2 Saturation VBG Base Excess Barometric Pressure POC Sodium Sodium POC Potassium Potassium POC Chloride Chloride Carbon Dioxide POC Total CO2 Anion Gap POC Anion Gap POC BUN BUN Creatinine POC Creatinine Est Cr Clr Drug Dosing Est GFR ( Amer) Est GFR (Non-Af Amer) BUN/Creatinine Ratio Glucose POC Glucose POC Glucose (other) Estimat Average Glucose Hemoglobin A1c POC Lactic Acid Dilan Lactate Calcium POC Ioniz Calcium Pam Magnesium Total Bilirubin AST ALT Alkaline Phosphatase Troponin I NT-Pro-B Natriuret Pep Total Protein Albumin Globulin Albumin/Globulin Ratio Beta-Hydroxybutyric Acd Procalcitonin TSH Urine Color Yellow Urine Appearance Clear Urine pH 5.0 Ur Specific [place] 1.017 Urine Protein Negative Urine Glucose (UA) 3+ H Urine Ketones Negative Urine Blood 1+ H Urine Nitrite Negative Urine Bilirubin Negative Urine Urobilinogen Negative Ur Leukocyte Esterase Negative Urine WBC (Auto) 1-5 Urine RBC (Auto) 0-4 U Hyaline Cast (Auto) 1-5 U Epithel Cells (Auto) 10-20 H Urine Bacteria (Auto) Negative Ur Renal Epithelial Cell Granular Casts Nasal Screen MRSA (PCR) Positive A 05/26/19 05/26/19 05/26/19 05:42 05:42 05:42 WBC RBC Hgb POC Hgb Hct POC Hct MCV MCH MCHC RDW Std Deviation RDW Coeff of Neena Plt Count MPV Immature Gran % (Auto) Neut % (Auto) Lymph % (Auto) Harmon % (Auto) Eos % (Auto) Baso % (Auto) Immature Gran # (Auto) Neut # (Auto) Lymph # (Auto) Harmon # (Auto) Eos # (Auto) Baso # (Auto) PT INR APTT 26.2 PTT Ratio 1.0 VBG pH VBG pCO2 VBG pO2 VBG HCO3 VBG O2 Saturation VBG Base Excess Barometric Pressure POC Sodium Sodium 137 POC Potassium Potassium 5.5 H D POC Chloride Chloride 104 Carbon Dioxide 30 POC Total CO2 Anion Gap 3.0 POC Anion Gap POC BUN BUN 13 Creatinine 1.45 H POC Creatinine Est Cr Clr Drug Dosing 87.8 Est GFR ( Amer) 58.2 Est GFR (Non-Af Amer) 50.2 BUN/Creatinine Ratio 8.9 L Glucose 339 H* POC Glucose POC Glucose (other) Estimat Average Glucose Hemoglobin A1c POC Lactic Acid Dilan Lactate 2.8 H* Calcium 8.4 L POC Ioniz Calcium Pam Magnesium Total Bilirubin AST ALT Alkaline Phosphatase Troponin I 1.560 H* NT-Pro-B Natriuret Pep Total Protein Albumin Globulin Albumin/Globulin Ratio Beta-Hydroxybutyric Acd 2.74 Procalcitonin TSH Urine Color Urine Appearance Urine pH Ur Specific [place] Urine Protein Urine Glucose (UA) Urine Ketones Urine Blood Urine Nitrite Urine Bilirubin Urine Urobilinogen Ur Leukocyte Esterase Urine WBC (Auto) Urine RBC (Auto) U Hyaline Cast (Auto) U Epithel Cells (Auto) Urine Bacteria (Auto) Ur Renal Epithelial Cell Granular Casts Nasal Screen MRSA (PCR) 05/26/19 05/26/19 07:26 09:56 WBC RBC Hgb POC Hgb Hct POC Hct MCV MCH MCHC RDW Std Deviation RDW Coeff of Neena Plt Count MPV Immature Gran % (Auto) Neut % (Auto) Lymph % (Auto) Harmon % (Auto) Eos % (Auto) Baso % (Auto) Immature Gran # (Auto) Neut # (Auto) Lymph # (Auto) Harmon # (Auto) Eos # (Auto) Baso # (Auto) PT INR APTT PTT Ratio VBG pH VBG pCO2 VBG pO2 VBG HCO3 VBG O2 Saturation VBG Base Excess Barometric Pressure POC Sodium Sodium POC Potassium Potassium Pending POC Chloride Chloride Carbon Dioxide POC Total CO2 Anion Gap POC Anion Gap POC BUN BUN Creatinine POC Creatinine Est Cr Clr Drug Dosing Est GFR ( Amer) Est GFR (Non-Af Amer) BUN/Creatinine Ratio Glucose POC Glucose 351 H* POC Glucose (other) Estimat Average Glucose Hemoglobin A1c POC Lactic Acid Dilan Lactate Calcium POC Ioniz Calcium Pam Magnesium Total Bilirubin AST ALT Alkaline Phosphatase Troponin I Pending NT-Pro-B Natriuret Pep Total Protein Albumin Globulin Albumin/Globulin Ratio Beta-Hydroxybutyric Acd Procalcitonin TSH Pending Urine Color Urine Appearance Urine pH Ur Specific [place] Urine Protein Urine Glucose (UA) Urine Ketones Urine Blood Urine Nitrite Urine Bilirubin Urine Urobilinogen Ur Leukocyte Esterase Urine WBC (Auto) Urine RBC (Auto) U Hyaline Cast (Auto) U Epithel Cells (Auto) Urine Bacteria (Auto) Ur Renal Epithelial Cell Granular Casts Nasal Screen MRSA (PCR)
--- NOTE | 2019-05-26 10:09 | Ultrasound Report ---
US venous doppler LE BI HISTORY: Pain. Edema. leg swelling COMPARISON STUDY: 10/24/2018 FINDINGS: There is normal compressibility, flow, and augmentation within the bilateral lower extremit y deep venous systems. IMPRESSION: No DVT within the right or left lower extremity. The above report was generated using voice recognition software. It may contain grammatical, syntax or spelling errors. Electronically signed by: Rod Wiseman M.D. 05/26/2019 10:08 AM
[2019-05-26 10:26] LABS: Potassium 4.8 mmol/L (3.5-5.1)
[2019-05-26 10:44] LABS: Thyroid Stimulating Hormone 0.442 uIu/ml (0.300-4.500); Troponin I 3.51 ng/ml (0-0.045)
--- NOTE | 2019-05-26 10:47 | XCELERA ---
[id number] [id number]
[2019-05-26] MEDS: NYSTATIN CR 15 GM TUBE EXT SCH ×2 (11:39→19:55)
[2019-05-26] MEDS: Heparin IV Standard *NO* Bolus IV SCH (11:43)
[2019-05-26] MEDS: ISOSORBIDE DINITRATE 40 MG TAB PO SCH ×2 (12:23→17:07)
[2019-05-26 15:20] LABS: Partial Thromboplastin Ratio 2.5
[2019-05-26 15:58] LABS: Partial Thromboplastin Time 68.7 Seconds (21.0-31.0)
--- NOTE | 2019-05-26 18:45 | Communication Note ---
Date of Service: May 26, 2019 chart reviewed patient seen and examined at bedside resting, comfortable with Bipap on states breathing has improved denies active chest pain (+) mild rales at the bases normal rate, regular rhythm (+) BL lower extremity edema CHF Exacerbation -- continue IV Lasix -- Echo -- Account Auditor consulted Elevated Troponin -- likely from Demand Ischemia from above -- on heparin drip Hyperglycemia -- DM 2 Pharmacy glycemic control consult Elevated Crea -- monitor while on lasix other diagnoses and plan of care as per Dr. Chavis's notes Sanjay Rocha MD
[2019-05-26] MEDS: METOPROLOL SUCC 25MG EXT REL TAB PO SCH (19:53)
[2019-05-26] MEDS: ATORVASTATIN 10 MG TAB PO SCH (19:55)
[2019-05-26 23:00] LABS: Partial Thromboplastin Ratio 3.6
[2019-05-26 23:03] LABS: Partial Thromboplastin Time 96.7 Seconds (21.0-31.0)
[2019-05-27] MEDS: INSULIN ASPART 100 UNITS/ML 3 ML PEN SC SCH ×6 (00:43→20:43)
[2019-05-27 06:25] LABS: Basophils # (auto) 0.01 K/uL (0-0.2); Basophils % (auto) 0.1 %; Eosinophils # (auto) 0.03 K/uL (0-0.5); Eosinophils % (auto) 0.3 %; Hematocrit (blood only) 28.7 % (42-52); Hemoglobin 8.8 g/dL (14.0-18.0); Immature Granulocytes # (auto) 0.02 K/uL (0.00-0.02); Immature Granulocytes % (auto) 0.2 %; Lymphocytes # (auto) 2.28 K/uL (1.2-3.4); Lymphocytes % (auto) 25.2 %; Mean Corpuscular Hgb Conc 30.7 g/dL (32-36); Mean Corpuscular Volume 84.9 fL (80-100); Mean Platelet Volume 9.9 fL (7.4-10.4); Monocytes # (auto) 0.63 K/uL (0.11-0.59); Neutrophils # (auto) 6.07 K/uL (1.4-6.5); Neutrophils % (auto) 67.2 %; Platelet Count 163 K/uL (130-400); RDW Coefficient of Variation 17.7 % (11.5-14.5); RDW Standard Deviation 54.7 fL (36.4-46.3); Red Blood Count 3.38 M/uL (4.7-6.1); White Blood Count 9.04 K/uL (4.8-10.8)
[2019-05-27] MEDS: LEVOTHYROXINE SODIUM 25 MCG TABLET PO SCH (06:27)
[2019-05-27] MEDS: LEVOTHYROXINE SODIUM 200 MCG TABLET PO SCH (06:27)
[2019-05-27 06:48] LABS: Partial Thromboplastin Time 81.2 Seconds (21.0-31.0)
[2019-05-27] MEDS: BREO ~ ORDER AWAITING ACTION SCH ×2 (07:38→16:46)
[2019-05-27] MEDS: ALBUMIN 25% 50 ML with FUROSEMIDE 80 MG IV SCH ×3 (09:01→21:36)
[2019-05-27] MEDS: PANTOprazole 40 MG TAB PO SCH ×2 (09:06→20:14)
[2019-05-27] MEDS: ASPIRIN 325 MG ECTAB PO SCH (09:06)
[2019-05-27] MEDS: PRAZOSIN HCL 1 MG CAP PO SCH ×3 (09:06→20:12)
[2019-05-27] MEDS: AMLODIPINE BESYLATE 5 MG TAB PO SCH (09:06)
[2019-05-27] MEDS: GABAPENTIN 100 MG CAP PO SCH ×3 (09:07→20:13)
[2019-05-27] MEDS: ISOSORBIDE DINITRATE 40 MG TAB PO SCH ×3 (09:07→16:47)
[2019-05-27] MEDS: METOPROLOL SUCC 25MG EXT REL TAB PO SCH ×3 (09:07→20:15)
[2019-05-27] MEDS: NYSTATIN CR 15 GM TUBE EXT SCH ×2 (09:08→20:14)
--- NOTE | 2019-05-27 09:27 | Cardiology Progress Note ---
Date of Service May 27, 2019 Assessment & Plan (1) Acute respiratory failure with hypoxia and hypercapnia: Patient currently on BiPAP would continue for mixed respiratory failure Patient wishes retrial or testing while in hospital to allow CPAP to be restarted at home (2) Acute on chronic diastolic (congestive) heart failure: Right greater than left this is a biventricular heart failure. Marked anasarca and scrotal edema present Will increase IV furosemide to 3 times daily dosing Continue treat hypertension Treat underlying pulmonary issues, hypoventilation (3) Elevated troponin I level: Likely secondary to acute demand ischemia with mild to moderate diffuse LV dysfunction on current echocardiogram No acute symptoms of chest pain or discomfort currently We will continue IV heparin for additional 24 hours then discontinue (4) Left bundle branch block: (5) Morbid obesity: Subjective Patient seen and examined, chart, medications, telemetry reviewed. Breathing much easier today. Used BiPAP overnight. No chest pains tachycardia palpitations dizziness or lightheadedness. No arrhythmias on telemetry Has begun to diurese but not briskly Renal function stable Physical Exam Constitutional: + morbidly obese Eyes: PERRL, conjunctivae normal, anicteric sclerae Neck: + thick neck Respiratory: Auscultation: + diminished lung sounds (Diffusely with poor airflow) Cardiovascular: Rate/Rhythm: regular rate and regular rhythm Extremities: + edema (2-3+) Genitourinary: + scrotum abnormality (Edema) Results & Data Vital Signs (Past 12 Hours) Vital Signs Temp Pulse Pulse Resp BP Pulse Ox 05/27/19 07:39 56 L 05/27/19 07:13 36.6 C 55 L 22 181/65 H 100 05/27/19 04:28 36.7 C 56 L 20 152/62 H 98 05/27/19 03:45 55 L 18 98 05/26/19 23:27 36.8 C 59 L 19 141/67 H 93 05/26/19 22:37 86 20 95 05/26/19 22:20 56 L Laboratory Results Laboratory Results - last 24 hr 05/26/19 05/26/19 05/26/19 09:56 12:03 14:43 WBC RBC Hgb Hct MCV MCH MCHC RDW Std Deviation RDW Coeff of Neena Plt Count MPV Immature Gran % (Auto) Neut % (Auto) Lymph % (Auto) [place] % (Auto) Eos % (Auto) Baso % (Auto) Immature Gran # (Auto) Neut # (Auto) Lymph # (Auto) [place] # (Auto) Eos # (Auto) Baso # (Auto) APTT 68.7 H* PTT Ratio 2.5 Potassium 4.8 POC Glucose 305 H* Lactate Troponin I 3.510 H* TSH 0.442 05/26/19 05/26/19 05/26/19 14:43 16:26 18:17 WBC RBC Hgb Hct MCV MCH MCHC RDW Std Deviation RDW Coeff of Neena Plt Count MPV Immature Gran % (Auto) Neut % (Auto) Lymph % (Auto) [place] % (Auto) Eos % (Auto) Baso % (Auto) Immature Gran # (Auto) Neut # (Auto) Lymph # (Auto) [place] # (Auto) Eos # (Auto) Baso # (Auto) APTT PTT Ratio Potassium POC Glucose 208 H 213 H Lactate 2.0 Troponin I TSH 05/26/19 05/26/19 05/26/19 20:05 22:10 23:59 WBC RBC Hgb Hct MCV MCH MCHC RDW Std Deviation RDW Coeff of Neena Plt Count MPV Immature Gran % (Auto) Neut % (Auto) Lymph % (Auto) [place] % (Auto) Eos % (Auto) Baso % (Auto) Immature Gran # (Auto) Neut # (Auto) Lymph # (Auto) [place] # (Auto) Eos # (Auto) Baso # (Auto) APTT 96.7 H* PTT Ratio 3.6 Potassium POC Glucose 219 H 194 H Lactate Troponin I TSH 05/27/19 05/27/19 05/27/19 06:06 06:06 06:26 WBC 9.04 RBC 3.38 L Hgb 8.8 L Hct 28.7 L MCV 84.9 MCH 26.0 MCHC 30.7 L RDW Std Deviation 54.7 H RDW Coeff of Neena 17.7 H Plt Count 163 MPV 9.9 Immature Gran % (Auto) 0.2 Neut % (Auto) 67.2 Lymph % (Auto) 25.2 [place] % (Auto) 7.0 Eos % (Auto) 0.3 Baso % (Auto) 0.1 Immature Gran # (Auto) 0.02 Neut # (Auto) 6.07 Lymph # (Auto) 2.28 [place] # (Auto) 0.63 H Eos # (Auto) 0.03 Baso # (Auto) 0.01 APTT 81.2 H* PTT Ratio 3.0 Potassium POC Glucose 148 H Lactate Troponin I TSH 05/27/19 07:20 WBC RBC Hgb Hct MCV MCH MCHC RDW Std Deviation RDW Coeff of Neena Plt Count MPV Immature Gran % (Auto) Neut % (Auto) Lymph % (Auto) [place] % (Auto) Eos % (Auto) Baso % (Auto) Immature Gran # (Auto) Neut # (Auto) Lymph # (Auto) [place] # (Auto) Eos # (Auto) Baso # (Auto) APTT PTT Ratio Potassium POC Glucose 150 H Lactate Troponin I TSH
[2019-05-27] MEDS: HEPARIN SODIUM/DEXTROSE 25,000 UNITS/500 ML BAG IV SCH ×2 (10:48→14:02)
[2019-05-27] MEDS: FLUTICASONE PROPIONATE NA SPR 16 GM BTL SCH (12:57)
[2019-05-27 13:42] LABS: Partial Thromboplastin Ratio 2.3
[2019-05-27] MEDS ORDERED: INSULIN GLARGINE SOLOSTAR 100 UNITS/ML 3 ML PEN SC STA (13:44)
[2019-05-27 13:48] LABS: Partial Thromboplastin Time 61.2 Seconds (21.0-31.0)
--- NOTE | 2019-05-27 13:56 | Pharmacy Report ---
Pharmacy Glycemic Short Note 2 - Date of Service May 27, 2019 - Glycemic Short BSG Results (Last 24 hours): 05/26/19 05/26/19 05/26/19 16:26 18:17 20:05 POC Glucose 208 H 213 H 219 H 05/26/19 05/27/19 05/27/19 23:59 06:26 07:20 POC Glucose 194 H 148 H 150 H 05/27/19 11:35 POC Glucose 183 H OUTPATIENT ANTIDIABETIC REGIMEN: * Lantus 68u HS + Humalog with meals ASSESSMENT: * Mr. Douglass's BSGs look improved today. Yesterday's hyperglycemia likely attributable to solumedrol given in ED. Glucocorticoid effect on BSGs have likely dissipated. Will try and work back to an HS lantus regimen for ease of comfort at discharge. PLAN FOR INPATIENT GLYCEMIC CONTROL: * Basal insulin * Lantus 60 units this afternoon, then 60u 05/28 @1800, then 60u @HS on 05/29 * Bolus insulin * NovoLog per scale ACHS or Q6hrs while NPO * Goal Range: Low 110 mg/dL - High 140 mg/dL * Correction Factor: 10 mg/dL/unit * Nutritional / Prandial insulin per carb ratio of 1 unit per 4 grams CHO consumed PLAN FOR DISCHARGE: * A1C from 01/30/19 was 9.6%, most recent A1C of 8.6% indicative of improvement in outpt glycemic management. I would continue his home regimen at [facility]
[2019-05-27 14:06] LABS: Calcium 8.1 mg/dl (8.5-10.1); Creatinine Clr Calc Pharmacy 90.6 ml/min; Est GFR (African American) 60.7; Est GFR (Non-African American) 52.4; Potassium 4.3 mmol/L (3.5-5.1)
--- NOTE | 2019-05-27 18:41 | Hospitalist Progress Note ---
Date of Service May 27, 2019 Assessment & Plan (1) Acute respiratory failure with hypoxia and hypercarbia: Acute on chronic hx chronic respiratory failure secondary to COPD on home O2 SAFIA on CPAP Secondary to decompensated heart failure hx chronic diastolic heart failure as per records --Echo EF 35 to 40% --On Lasix 80 mg IV 3 times daily Continue to monitor diuresis --Continue BiPAP --Cardroom Hand consulted Elevated troponins likely Myocardial infarction type 2 --Troponins peaked to 3.5 --Currently maintained on heparin drip for 24 more hours --Doubt ACS, likely secondary to demand ischemia --Cardroom Hand on board Mild creatinine elevation --Mild creatinine elevation improving Control on Lasix chronic LBBB hypertension --Continue amlodipine, isosorbide DM2 insulin requiring, suboptimal control as of recent outpatient hemoglobin A1c of 9.21 January 2019 --Glycemic control per pharmacy chronic anemia, hemoglobin at baseline hypothyroidism, euthyroid as of recent TSH November 2018 PT OT eval DVT prophylaxis. Heparin drip Full code Subjective Follow-up for CHF exacerbation Seen resting in bed, comfortable Not in distress States his breathing continues to improve Less cough, no sputum no fevers or chills No chest pain Denies other symptoms Review of Systems Review of Systems: All systems reviewed & are unremarkable except as noted in HPI & below Physical Exam Physical Exam: General- oriented x 3, not in distress, speaks in sentences with no effort or accessory muscle use Morbidly obese Eyes- anicteric Neck- no JVD Lungs-no rales at the bases, no wheezing Heart- normal rate, regular rhythm; no murmurs Abdomen- normal bowel sounds, nondistended, soft, nontender Extremities-positive grade 2 lower extremity edema, no calf tenderness Neuro- alert, oriented x 3; no gross focal neurologic deficits Skin- warm & dry Results & Data Vital Signs (Past 12 Hours) Vital Signs Temp Pulse Pulse Resp BP Pulse Ox 05/27/19 17:50 65 05/27/19 15:20 36.9 C 57 L 18 125/53 L 98 05/27/19 11:45 36.8 C 55 L 137/55 L 97 05/27/19 07:39 56 L 05/27/19 07:13 36.6 C 55 L 22 181/65 H 100
[2019-05-27] MEDS: ATORVASTATIN 10 MG TAB PO SCH (20:13)
[2019-05-28] MEDS: BREO ~ ORDER AWAITING ACTION SCH ×4 (00:28→23:31)
[2019-05-28] MEDS: HEPARIN SODIUM/DEXTROSE 25,000 UNITS/500 ML BAG IV SCH (01:50)
[2019-05-28] MEDS: LEVOTHYROXINE SODIUM 25 MCG TABLET PO SCH (05:49)
[2019-05-28] MEDS: LEVOTHYROXINE SODIUM 200 MCG TABLET PO SCH (05:49)
[2019-05-28 06:44] LABS: Basophils # (auto) 0.04 K/uL (0-0.2); Basophils % (auto) 0.6 %; Eosinophils # (auto) 0.13 K/uL (0-0.5); Hematocrit (blood only) 29.1 % (42-52); Hemoglobin 8.8 g/dL (14.0-18.0); Immature Granulocytes # (auto) 0.01 K/uL (0.00-0.02); Immature Granulocytes % (auto) 0.2 %; Lymphocytes # (auto) 3.01 K/uL (1.2-3.4); Lymphocytes % (auto) 47.3 %; Mean Corpuscular Hgb Conc 30.2 g/dL (32-36); Mean Corpuscular Volume 86.1 fL (80-100); Mean Platelet Volume 9.9 fL (7.4-10.4); Monocytes # (auto) 0.47 K/uL (0.11-0.59); Monocytes % (auto) 7.4 %; Neutrophils % (auto) 42.5 %; Platelet Count 165 K/uL (130-400); RDW Standard Deviation 56.3 fL (36.4-46.3); Red Blood Count 3.38 M/uL (4.7-6.1); White Blood Count 6.36 K/uL (4.8-10.8)
[2019-05-28 07:02] LABS: Partial Thromboplastin Ratio 2.2
[2019-05-28 07:11] LABS: Partial Thromboplastin Time 58.9 Seconds (21.0-31.0)
[2019-05-28 07:18] LABS: BUN Creatinine Ratio 15.4 (10-20); Calcium 8.1 mg/dl (8.5-10.1); Creatinine Clr Calc Pharmacy 88.6 ml/min; Est GFR (African American) 59.6; Est GFR (Non-African American) 51.5
[2019-05-28] MEDS: INSULIN ASPART 100 UNITS/ML 3 ML PEN SC SCH ×4 (07:46→20:57)
[2019-05-28] MEDS: FLUTICASONE PROPIONATE NA SPR 16 GM BTL SCH (07:47)
[2019-05-28] MEDS: NYSTATIN CR 15 GM TUBE EXT SCH ×2 (07:49→20:55)
[2019-05-28] MEDS: PANTOprazole 40 MG TAB PO SCH ×2 (07:49→20:53)
[2019-05-28] MEDS: PRAZOSIN HCL 1 MG CAP PO SCH ×3 (07:49→20:52)
[2019-05-28] MEDS: GABAPENTIN 100 MG CAP PO SCH ×3 (07:50→20:54)
[2019-05-28] MEDS: ISOSORBIDE DINITRATE 40 MG TAB PO SCH ×3 (07:50→16:11)
[2019-05-28] MEDS: METOPROLOL SUCC 25MG EXT REL TAB PO SCH ×2 (07:50→20:54)
[2019-05-28] MEDS ORDERED: AMLODIPINE BESYLATE 5 MG TAB PO SCH (09:00)
[2019-05-28] MEDS: ALBUMIN 25% 50 ML with FUROSEMIDE 80 MG IV SCH ×3 (09:05→20:48)
[2019-05-28] MEDS: ASPIRIN 325 MG ECTAB PO SCH (09:05)
--- NOTE | 2019-05-28 09:56 | Cardiology Progress Note ---
Date of Service May 28, 2019 Assessment & Plan (1) Acute respiratory failure with hypoxia and hypercapnia: Recommend continuation of BiPAP for mixed respiratory failure (2) Acute on chronic diastolic (congestive) heart failure: Right greater than left this is a biventricular heart failure. Marked anasarca and scrotal edema present Continue IV furosemide as prescribed. Continue treat hypertension - discontinue amlodipine. Add hydralazine to nitrates given reduced LVEF and relative contraindications to TJ/ARB/Entresto/Aldacone (hyperkalemia) Treat underlying pulmonary issues, hypoventilation (3) Elevated troponin I level: Likely secondary to acute demand ischemia Moderate diffuse LV dysfunction on current echocardiogram No acute symptoms of chest pain or discomfort currently Discontinue IV heparin Manage medically (4) Left bundle branch block: . (5) Morbid obesity: Supervising Physician Co-Signing Physician Notes Patient seen and examined the bedside. Denies chest pain or unusual shortness of breath at rest. Edema unchanged. Tolerating diuretic therapy. PE: VSS. Morbid obesity. Heart: Distant heart sounds, regular, normal S1-S2. Lungs: Diminished breath sounds bilaterally with scattered rhonchi. Abd: Obese, nontender, nondistended. No rebound or guarding. Ext:2+ pitting edema. A/P: Agree with above PA-C history, physical exam, assessment and plan. Monitor fluid balance, daily weight, GFR, electrolytes. Subjective Patient seen and examined. Chart, medications, telemetry reviewed. Patient feels about the same. Significant fluid retention remains. I's and O's -620 mL's on the , 1460 mL's on the , and 2893 mL's on the May 26, 2019 TTE interpretation summary: Technically difficult. Normal size left ventricle. Mild concentric LVH. Septal motion consistent with conduction abnormality. Mild to moderate hypokinesis of the left ventricle. Ejection fraction 35 to 40%. Mild aortic valve sclerosis without stenosis. Moderately dilated left atrium. Enlarged RV cavity size. EKG on May 27, 2019 revealed sinus bradycardia 56 bpm with a left bundle branch block. QRS duration 172 ms. Telemetry: Sinus bradycardia in the 50s/sinus rhythm in the 60s. Occasional PVC Review of Systems Review of Systems: All systems reviewed & are unremarkable except as noted in HPI & below Constitutional: + malaise Eyes: + diplopia and + loss of peripheral vision Physical Exam Physical Exam: General: A&Ox3. NAD. Morbidly obese. HEENT: Normocephalic. Atraumatic. PER. Conjunctiva pink, sclera pale. I could not appreciate his neck veins. Heart: RRR. No murmur. + Gallop Lungs: Diminished anteriorly and laterally with faint right upper expiratory wheeze. Abdomen: +BS. Soft. No organomegaly. Extremities: Significant chronic indurated edema. No clubbing. No cyanosis. Limited neurological examination is without focal deficits. Pulses: Not found/appreciated. Results & Data Vital Signs (Past 12 Hours) Vital Signs Temp Pulse Pulse Pulse Resp BP Pulse Ox 05/28/19 07:57 64 05/28/19 07:11 36.7 C 53 L 19 153/62 H 98 05/28/19 06:40 51 L 05/28/19 03:22 54 L 16 98 05/28/19 02:58 37.2 C 58 L 20 130/56 L 96 05/28/19 00:36 64 05/27/19 23:17 37.3 C 58 L 17 127/52 L 96 Laboratory Results Laboratory Results - last 24 hr 05/27/19 05/27/19 05/27/19 11:35 13:08 13:33 WBC RBC Hgb Hct MCV MCH MCHC RDW Std Deviation RDW Coeff of Neena Plt Count MPV Immature Gran % (Auto) Neut % (Auto) Lymph % (Auto) [place] % (Auto) Eos % (Auto) Baso % (Auto) Immature Gran # (Auto) Neut # (Auto) Lymph # (Auto) [place] # (Auto) Eos # (Auto) Baso # (Auto) APTT 61.2 H* PTT Ratio 2.3 Sodium 138 Potassium 4.3 Chloride 103 Carbon Dioxide 33 H Anion Gap 2.0 L BUN 20 H D Creatinine 1.40 Est Cr Clr Drug Dosing 90.6 Est GFR ( Amer) 60.7 Est GFR (Non-Af Amer) 52.4 BUN/Creatinine Ratio 14.0 Glucose 209 H POC Glucose 183 H Calcium 8.1 L 05/27/19 05/27/19 05/28/19 16:03 20:35 06:07 WBC RBC Hgb Hct MCV MCH MCHC RDW Std Deviation RDW Coeff of Neena Plt Count MPV Immature Gran % (Auto) Neut % (Auto) Lymph % (Auto) [place] % (Auto) Eos % (Auto) Baso % (Auto) Immature Gran # (Auto) Neut # (Auto) Lymph # (Auto) [place] # (Auto) Eos # (Auto) Baso # (Auto) APTT PTT Ratio Sodium 139 Potassium 4.0 Chloride 103 Carbon Dioxide 34 H Anion Gap 2.0 L BUN 22 H Creatinine 1.42 H Est Cr Clr Drug Dosing 88.6 Est GFR ( Amer) 59.6 Est GFR (Non-Af Amer) 51.5 BUN/Creatinine Ratio 15.4 Glucose 124 H POC Glucose 172 H 111 H Calcium 8.1 L 05/28/19 05/28/19 05/28/19 06:07 06:07 07:34 WBC 6.36 RBC 3.38 L Hgb 8.8 L Hct 29.1 L MCV 86.1 MCH 26.0 MCHC 30.2 L RDW Std Deviation 56.3 H RDW Coeff of Neena 18.0 H Plt Count 165 MPV 9.9 Immature Gran % (Auto) 0.2 Neut % (Auto) 42.5 Lymph % (Auto) 47.3 [place] % (Auto) 7.4 Eos % (Auto) 2.0 Baso % (Auto) 0.6 Immature Gran # (Auto) 0.01 Neut # (Auto) 2.70 Lymph # (Auto) 3.01 [place] # (Auto) 0.47 Eos # (Auto) 0.13 Baso # (Auto) 0.04 APTT 58.9 H* PTT Ratio 2.2 Sodium Potassium Chloride Carbon Dioxide Anion Gap BUN Creatinine Est Cr Clr Drug Dosing Est GFR ( Amer) Est GFR (Non-Af Amer) BUN/Creatinine Ratio Glucose POC Glucose 140 H Calcium
[2019-05-28 10:46] LABS: Reticulocyte % 1.4 % (0.5-2.0); Reticulocytes # 0.05 10^6/uL (0.02-0.10)
[2019-05-28 11:17] LABS: Ferritin 44.2 ng/ml (8-388)
[2019-05-28] MEDS: HEPARIN SOD 5,000 UNIT/0.5 ML VIAL SQ SCH ×2 (13:49→20:55)
[2019-05-28] MEDS: HydrALAZINE 10 MG TAB PO SCH ×2 (13:49→20:52)
[2019-05-28] MEDS ORDERED: DOCUSATE SODIUM SYRUP 100 MG/10 ML UDC PO ONE (15:45)
[2019-05-28] MEDS: POLYETHYLENE (MIRALAX) 17 GM PACK PO SCH (16:09)
--- NOTE | 2019-05-28 16:13 | Hospitalist Progress Note ---
Date of Service May 28, 2019 Assessment & Plan (1) Acute respiratory failure with hypoxia and hypercarbia: Acute on chronic hx chronic respiratory failure secondary to COPD on home O2 SAFIA on CPAP presented with SOB /JOHNSON :Secondary to decompensated heart failure hx chronic diastolic heart failure as per records --Echo EF 35 to 40% --on IV diuretics , respiratory status improved with diuresis cont Bipap at night --Foundation Drill Operator consulted-appreciate input Elevated troponins Myocardial infarction type 2/demand ischemia in setting of decompensated CHF --Troponins peaked to 3.5 -was treated with IV heparin for 48 hrs --cardiology following , appreciate input ACUTE RENAL FAILURE WITH CKD STAGE 3 monitor BMP while getting lasix hypertension --Continue amlodipine, isosorbide DM2 insulin requiring, suboptimal control as of recent outpatient hemoglobin A1c of 9.21 January 2019 --appreciate pharmacy consult for glycemic management chronic anemia, hemoglobin at baseline hypothyroidism, euthyroid as of recent TSH November 2018 PT OT eval DVT prophylaxis. sub q heparin Full code Subjective no complain of SOB or cough no chest pain or JOHNSON feels much better no fever or chills Physical Exam Constitutional: + morbidly obese Eyes: PERRL, conjunctivae normal, anicteric sclerae Neck: + thick neck Respiratory: Auscultation: + diminished lung sounds (Diffusely with poor airflow) Cardiovascular: Rate/Rhythm: regular rate and regular rhythm Extremities: + edema (2-3+) Gastrointestinal (Abdomen): Inspection/Auscultation: abdomen normal to inspection and normal bowel sounds Percussion/Palpation: abdomen soft; abdomen nontender Musculoskeletal: no cyanosis or clubbing, extremities motor strength 5/5 Skin: no rashes, warm and dry Neurologic: PERRL, EOMI, accommodation nl, no face palsy, no dysarthria Psychiatric: A+Ox3, euthymic affect Genitourinary: + scrotum abnormality (Edema) Results & Data Vital Signs (Past 12 Hours) Vital Signs Temp Pulse Pulse Pulse Resp BP Pulse Ox 05/28/19 15:12 37.0 C 61 22 128/61 98 05/28/19 13:52 65 17 129/51 L 96 05/28/19 11:00 37.0 C 52 L 19 136/52 L 98 05/28/19 07:57 64 05/28/19 07:11 36.7 C 53 L 19 153/62 H 98 12/11/19 06:40 51 L
[2019-05-28] MEDS: INSULIN GLARGINE SOLOSTAR 100 UNITS/ML 3 ML PEN SC SCH (17:40)
[2019-05-28] MEDS: ATORVASTATIN 10 MG TAB PO SCH (20:54)
[2019-05-29] MEDS: LEVOTHYROXINE SODIUM 200 MCG TABLET PO SCH (06:03)
[2019-05-29] MEDS: HEPARIN SOD 5,000 UNIT/0.5 ML VIAL SQ SCH ×3 (06:03→21:24)
[2019-05-29] MEDS: LEVOTHYROXINE SODIUM 25 MCG TABLET PO SCH (06:03)
[2019-05-29 08:18] LABS: Basophils # (auto) 0.05 K/uL (0-0.2); Eosinophils # (auto) 0.16 K/uL (0-0.5); Eosinophils % (auto) 3.2 %; Immature Granulocytes # (auto) 0.01 K/uL (0.00-0.02); Immature Granulocytes % (auto) 0.2 %; Lymphocytes # (auto) 1.94 K/uL (1.2-3.4); Lymphocytes % (auto) 38.5 %; Mean Corpuscular Hemoglobin 25.9 pg (25-34); Mean Corpuscular Volume 86.5 fL (80-100); Mean Platelet Volume 9.8 fL (7.4-10.4); Monocytes # (auto) 0.52 K/uL (0.11-0.59); Monocytes % (auto) 10.3 %; Neutrophils # (auto) 2.36 K/uL (1.4-6.5); Neutrophils % (auto) 46.8 %; Nucleated RBC # (auto) 0.03 K/uL (0-0); Nucleated RBC % (auto) 0.7 %; Platelet Count 169 K/uL (130-400); RDW Standard Deviation 56.4 fL (36.4-46.3); Red Blood Count 3.47 M/uL (4.7-6.1); White Blood Count 5.04 K/uL (4.8-10.8)
[2019-05-29 08:27] LABS: Partial Thromboplastin Time 26.2 Seconds (21.0-31.0)
[2019-05-29] MEDS: BREO ~ ORDER AWAITING ACTION SCH (08:38)
[2019-05-29] MEDS: INSULIN ASPART 100 UNITS/ML 3 ML PEN SC SCH ×4 (08:46→21:20)
[2019-05-29 08:48] LABS: BUN Creatinine Ratio 15.6 (10-20); Calcium 8.9 mg/dl (8.5-10.1); Creatinine Clr Calc Pharmacy 93.2 ml/min; Est GFR (African American) 63.4; Est GFR (Non-African American) 54.7; Potassium 3.9 mmol/L (3.5-5.1)
[2019-05-29] MEDS: NYSTATIN CR 15 GM TUBE EXT SCH ×2 (08:48→21:23)
[2019-05-29] MEDS: FLUTICASONE PROPIONATE NA SPR 16 GM BTL SCH (08:48)
[2019-05-29] MEDS: GABAPENTIN 100 MG CAP PO SCH ×3 (08:49→21:23)
[2019-05-29] MEDS: ISOSORBIDE DINITRATE 40 MG TAB PO SCH ×3 (08:49→17:03)
[2019-05-29] MEDS: METOPROLOL SUCC 25MG EXT REL TAB PO SCH ×2 (08:49→21:23)
[2019-05-29] MEDS: PRAZOSIN HCL 1 MG CAP PO SCH ×2 (08:49→17:03)
[2019-05-29] MEDS: PANTOprazole 40 MG TAB PO SCH ×2 (08:49→21:22)
[2019-05-29] MEDS: POLYETHYLENE (MIRALAX) 17 GM PACK PO SCH (08:50)
[2019-05-29] MEDS: HydrALAZINE 10 MG TAB PO SCH ×2 (08:51→14:22)
[2019-05-29] MEDS: ASPIRIN 325 MG ECTAB PO SCH (08:51)
[2019-05-29] MEDS: ALBUMIN 25% 50 ML with FUROSEMIDE 80 MG IV SCH ×3 (09:12→21:26)
--- NOTE | 2019-05-29 12:12 | Pharmacy Report ---
Pharmacy Glycemic Short Note 2 - Date of Service May 29, 2019 - Glycemic Short BSG Results (Last 24 hours): 05/28/19 05/28/19 05/29/19 15:59 20:19 07:22 Glucose POC Glucose 166 H 204 H 118 H 05/29/19 05/29/19 07:34 11:29 Glucose 98 POC Glucose 139 H OUTPATIENT ANTIDIABETIC REGIMEN: * Lantus 68u HS + Humalog with meals ASSESSMENT: * Mr. Douglass's fasting and post prandial BSGs look improved today. Novolog carb coverage was tightened slightly given elevated post prandial BSGs yesterday. Successfully transitioned back to HS lantus regimen for ease of comfort at discharge. PLAN FOR INPATIENT GLYCEMIC CONTROL: * Basal insulin * Lantus 60 units HS * Bolus insulin * NovoLog per scale ACHS or Q6hrs while NPO * Goal Range: Low 110 mg/dL - High 140 mg/dL * Correction Factor: 10 mg/dL/unit * Nutritional / Prandial insulin per carb ratio of 1 unit per 3 grams CHO consumed PLAN FOR DISCHARGE: * A1C from 01/30/19 was 9.6%, most recent A1C of 8.6% indicative of improvement in outpt glycemic management. I would continue his home regimen at [facility]
--- NOTE | 2019-05-29 14:34 | Hospitalist Progress Note ---
Date of Service May 29, 2019 Assessment & Plan (1) Acute respiratory failure with hypoxia and hypercarbia: Acute on chronic hx chronic respiratory failure secondary to COPD on home O2 SAFIA on CPAP presented with SOB /JOHNSON :Secondary to decompensated heart failure/biventricular heart failure with evidence of pulmonary HTN ( obesity hypoventilation syndrome ) presented with Rt > left ventricular heart failure -generalized edema /anasarca /scrotal edema --Echo EF 35 to 40% appreciate input from cardiology --on IV diuretics Lasix and albumin -on negative balance of approx 1.4 L respiratory status improved with diuresis cont Bipap at night --Senior Software Qa Engineer consulted-appreciate input Elevated troponins Myocardial infarction type 2/demand ischemia in setting of decompensated CHF --Troponins peaked to 3.5 -was treated with IV heparin for 48 hrs --cardiology following , appreciate input ACUTE RENAL FAILURE WITH CKD STAGE 3 monitor BMP while getting lasix hypertension --as per Cardiology : norvasc D/mary (+ 3 lower ext edema ) . Added hydralazine to nitrates given reduced LVEF and relative contraindications to TJ/ARB/Entresto/Aldacone due to hyperkalemia DM2 insulin requiring, suboptimal control as of recent outpatient hemoglobin A1c of 9.21 January 2019 --appreciate pharmacy consult for glycemic management anemia of chronic disease hemoglobin at baseline hypothyroidism euthyroid as of recent TSH November 2018 PT OT eval DVT prophylaxis. sub q heparin Full code DISPOSITION ; significant decline in functional status will need skilled rehab referral made to [facility] Subjective pt complains of feeling bloated has not had a bowel movement for past few days was given Miralax with no result no complain of abdominal pain , no nausea or vomiting SOB , orthopnea has improved since admission has non productive cough no fever or chills Physical Exam Constitutional: + morbidly obese Eyes: PERRL, conjunctivae normal, anicteric sclerae Neck: + thick neck Respiratory: Auscultation: + diminished lung sounds (Diffusely with poor airflow) Cardiovascular: Rate/Rhythm: regular rate and regular rhythm Extremities: + edema (2-3+) Gastrointestinal (Abdomen): Inspection/Auscultation: abdomen normal to inspection and normal bowel sounds Percussion/Palpation: abdomen soft; abdomen nontender Musculoskeletal: no cyanosis or clubbing, extremities motor strength 5/5 Skin: no rashes, warm and dry Neurologic: PERRL, EOMI, accommodation nl, no face palsy, no dysarthria Psychiatric: A+Ox3, euthymic affect Genitourinary: + scrotum abnormality (Edema) Results & Data Vital Signs (Past 12 Hours) Vital Signs Temp Pulse Pulse Pulse Resp BP Pulse Ox 05/29/19 11:00 36.6 C 53 L 20 132/53 L 100 05/29/19 07:38 36.8 C 55 L 20 155/61 H 97 05/29/19 06:45 53 L 05/29/19 03:43 37.1 C 57 L 22 136/66 97 05/29/19 03:33 58 L 16 97
--- NOTE | 2019-05-29 17:54 | Cardiology Progress Note ---
Date of Service May 29, 2019 Assessment & Plan (1) Acute respiratory failure with hypoxia and hypercapnia: Recommend continuation of BiPAP for mixed respiratory failure (2) Acute on chronic diastolic (congestive) heart failure: Right greater than left this is a biventricular heart failure. Marked anasarca and scrotal edema present Continue IV furosemide as prescribed. Continue treat hypertension - discontinue amlodipine. Add hydralazine to nitrates given reduced LVEF and relative contraindications to TJ/ARB/Entresto/Aldacone (hyperkalemia) Treat underlying pulmonary issues, hypoventilation We will increase hydralazine further to 25 mg 3 times daily while discontinuing prazosin (3) Elevated troponin I level: Likely secondary to acute demand ischemia Moderate diffuse LV dysfunction on current echocardiogram No acute symptoms of chest pain or discomfort currently Discontinue IV heparin Manage medically (4) Left bundle branch block: . (5) Morbid obesity: Subjective Patient seen and examined, chart, medications, telemetry reviewed. Much more comfortable and less dyspneic. No chest pain no tachypalpitations. Continues to make strides with diuresis. No arrhythmias on telemetry Physical Exam Constitutional: + morbidly obese Eyes: PERRL, conjunctivae normal, anicteric sclerae Neck: + thick neck Respiratory: Auscultation: + diminished lung sounds (Diffusely with poor airflow) Cardiovascular: Rate/Rhythm: regular rate and regular rhythm Extremities: + edema (2-3+ but improving) Gastrointestinal (Abdomen): Inspection/Auscultation: normal bowel sounds Percussion/Palpation: abdomen soft Large panniculus Neurologic: PERRL, EOMI, accommodation nl, no face palsy, no dysarthria Genitourinary: + scrotum abnormality (Edema) Results & Data Vital Signs (Past 12 Hours) Vital Signs Temp Pulse Pulse Pulse Resp BP Pulse Ox 05/29/19 15:33 37.0 C 58 L 18 144/62 H 98 05/29/19 11:00 36.6 C 53 L 20 132/53 L 100 05/29/19 07:38 36.8 C 55 L 20 155/61 H 97 05/29/19 06:45 53 L Laboratory Results Laboratory Results - last 24 hr 05/28/19 05/29/19 05/29/19 20:19 07:22 07:34 WBC RBC Hgb Hct MCV MCH MCHC RDW Std Deviation RDW Coeff of Neena Plt Count MPV Immature Gran % (Auto) Neut % (Auto) Lymph % (Auto) [place] % (Auto) Eos % (Auto) Baso % (Auto) Immature Gran # (Auto) Neut # (Auto) Lymph # (Auto) [place] # (Auto) Eos # (Auto) Baso # (Auto) Absolute Nucleated RBC Nucleated RBC % (auto) APTT PTT Ratio Sodium 141 Potassium 3.9 Chloride 103 Carbon Dioxide 35 H Anion Gap 3.0 BUN 21 H Creatinine 1.35 Est Cr Clr Drug Dosing 93.2 Est GFR ( Amer) 63.4 Est GFR (Non-Af Amer) 54.7 BUN/Creatinine Ratio 15.6 Glucose 98 POC Glucose 204 H 118 H Calcium 8.9 05/29/19 05/29/19 05/29/19 07:34 07:34 11:29 WBC 5.04 RBC 3.47 L Hgb 9.0 L Hct 30.0 L MCV 86.5 MCH 25.9 MCHC 30.0 L RDW Std Deviation 56.4 H RDW Coeff of Neena 18.0 H Plt Count 169 MPV 9.8 Immature Gran % (Auto) 0.2 Neut % (Auto) 46.8 Lymph % (Auto) 38.5 [place] % (Auto) 10.3 Eos % (Auto) 3.2 Baso % (Auto) 1.0 Immature Gran # (Auto) 0.01 Neut # (Auto) 2.36 Lymph # (Auto) 1.94 [place] # (Auto) 0.52 Eos # (Auto) 0.16 Baso # (Auto) 0.05 Absolute Nucleated RBC 0.03 H Nucleated RBC % (auto) 0.7 APTT 26.2 PTT Ratio 1.0 Sodium Potassium Chloride Carbon Dioxide Anion Gap BUN Creatinine Est Cr Clr Drug Dosing Est GFR ( Amer) Est GFR (Non-Af Amer) BUN/Creatinine Ratio Glucose POC Glucose 139 H Calcium 05/29/19 16:15 WBC RBC Hgb Hct MCV MCH MCHC RDW Std Deviation RDW Coeff of Neena Plt Count MPV Immature Gran % (Auto) Neut % (Auto) Lymph % (Auto) [place] % (Auto) Eos % (Auto) Baso % (Auto) Immature Gran # (Auto) Neut # (Auto) Lymph # (Auto) [place] # (Auto) Eos # (Auto) Baso # (Auto) Absolute Nucleated RBC Nucleated RBC % (auto) APTT PTT Ratio Sodium Potassium Chloride Carbon Dioxide Anion Gap BUN Creatinine Est Cr Clr Drug Dosing Est GFR ( Amer) Est GFR (Non-Af Amer) BUN/Creatinine Ratio Glucose POC Glucose 136 H Calcium
[2019-05-29] MEDS ORDERED: POLYETHYLENE (MIRALAX) 17 GM PACK PO STA (17:55)
[2019-05-29] MEDS ORDERED: bisacodyL 5 MG TABEC PO ONE (17:55)
[2019-05-29] MEDS ORDERED: SOD PHOSPHATE/SOD BIPHOSPHATE ENEMA 132 ML BTL PR PRN (17:56)
[2019-05-29] MEDS ORDERED: MAGNESIUM HYDROXIDE SUSP 30 ML UDC PO PRN (17:58)
[2019-05-29] MEDS: INSULIN GLARGINE SOLOSTAR 100 UNITS/ML 3 ML PEN SC SCH (21:21)
[2019-05-29] MEDS: ATORVASTATIN 10 MG TAB PO SCH (21:22)
[2019-05-29] MEDS: FLUTICASONE/SALMETEROL 250/50 (ADVAIR) 14 PUFF/1 INHALER INH SCH (22:04)
[2019-05-30] MEDS: LEVOTHYROXINE SODIUM 200 MCG TABLET PO SCH (05:46)
[2019-05-30] MEDS: LEVOTHYROXINE SODIUM 25 MCG TABLET PO SCH (05:46)
[2019-05-30] MEDS: HEPARIN SOD 5,000 UNIT/0.5 ML VIAL SQ SCH ×3 (05:47→21:58)
[2019-05-30 08:07] LABS: BUN Creatinine Ratio 15.9 (10-20); Calcium 8.7 mg/dl (8.5-10.1); Est GFR (African American) 64.6; Est GFR (Non-African American) 55.7; Potassium 4.1 mmol/L (3.5-5.1)
[2019-05-30] MEDS: POLYETHYLENE (MIRALAX) 17 GM PACK PO SCH (08:31)
--- NOTE | 2019-05-30 08:33 | Pharmacy Report ---
Pharmacy Glycemic Short Note 2 - Date of Service May 30, 2019 - Glycemic Short BSG Results (Last 24 hours): 05/29/19 05/29/19 05/29/19 07:34 11:29 16:15 Glucose 98 POC Glucose 139 H 136 H 05/29/19 05/30/19 05/30/19 20:12 06:53 07:09 Glucose 102 H POC Glucose 162 H 113 H OUTPATIENT ANTIDIABETIC REGIMEN: * Lantus 68u HS + Humalog with meals (12 units with breakfast and lunch + 14 units with dinner) ASSESSMENT: * Patient received 116 units over the past 24 hours * 60 units of basal insulin * 56 units of prandial/correctional insulin * BSGs ranging 102 - 162 over the past 24hrs * No change in potential insulin resistance risk factors PLAN FOR INPATIENT GLYCEMIC CONTROL: * Basal insulin * Continue Lantus 60 units HS * Bolus insulin - continue * NovoLog per scale ACHS or Q6hrs while NPO * Goal Range: Low 110 mg/dL - High 140 mg/dL * Correction Factor: 10 mg/dL/unit * Nutritional / Prandial insulin per carb ratio of 1 unit per 3 grams CHO consumed PLAN FOR DISCHARGE: * Reasonable HbA1c goal for most non- adults is less than 7% * A1C from 01/30/19 was 9.6%, most recent A1C of 8.6% indicative of improvement in outpatient glycemic management. * Reasonable to continue home Lantus dose of 68 units - could consider increasing Humalog to 14 units TIDM * Support Patient Self-Management * Healthy Lifestyle (diet, exercise, and smoking cessation) * Disease self-management (SMBG) * Prevention of complications (BP, Lipid goals, Immunizations) * Consider outpatient Diabetes Self-Management Education & Support
[2019-05-30] MEDS: ALBUMIN 25% 50 ML with FUROSEMIDE 80 MG IV SCH (08:35)
[2019-05-30] MEDS: NYSTATIN CR 15 GM TUBE EXT SCH ×2 (08:36→19:51)
[2019-05-30] MEDS: FLUTICASONE/SALMETEROL 250/50 (ADVAIR) 14 PUFF/1 INHALER INH SCH ×2 (08:37→19:48)
[2019-05-30] MEDS: INSULIN ASPART 100 UNITS/ML 3 ML PEN SC SCH ×4 (08:38→21:55)
[2019-05-30] MEDS: FLUTICASONE PROPIONATE NA SPR 16 GM BTL SCH (08:38)
[2019-05-30] MEDS: METOPROLOL SUCC 25MG EXT REL TAB PO SCH ×2 (08:39→19:50)
[2019-05-30] MEDS: GABAPENTIN 100 MG CAP PO SCH ×3 (08:40→19:50)
[2019-05-30] MEDS: DOCUSATE SODIUM/SENNA 50/8.6MG TAB PO SCH (08:40)
[2019-05-30] MEDS: PANTOprazole 40 MG TAB PO SCH ×2 (08:40→19:50)
[2019-05-30] MEDS: ISOSORBIDE DINITRATE 40 MG TAB PO SCH ×3 (08:41→17:04)
[2019-05-30] MEDS: ASPIRIN 325 MG ECTAB PO SCH (08:41)
[2019-05-30] MEDS ORDERED: bisacodyL 10 MG SUPP PR STA (09:15)
--- NOTE | 2019-05-30 10:55 | Cardiology Progress Note ---
Date of Service May 30, 2019 Assessment & Plan (1) Acute respiratory failure with hypoxia and hypercapnia: Recommend continuation of BiPAP for mixed respiratory failure (2) Acute on chronic diastolic (congestive) heart failure: Right greater than left this is a biventricular heart failure. Marked anasarca and scrotal edema present Continue IV furosemide as prescribed. Continue to treat hypertension. Increase hydralazine again today. Amlodipine and Prazosin discontinued. Hydralazine added to nitrates given reduced LVEF, relative contraindications to TJ/ARB/Entresto/Aldacone (hyperkalemia) Treat underlying pulmonary issues, hypoventilation (3) Elevated troponin I level: Likely secondary to acute demand ischemia Moderate diffuse LV dysfunction on current echocardiogram No acute symptoms of chest pain or discomfort currently Manage medically (4) Left bundle branch block: . (5) Morbid obesity: Supervising Physician Co-Signing Physician Notes Patient was seen and examined personally. Assessment and plan as well outlined above. Patient continues to manifest diuresis without renal decline. Hydralazine increased We will need to begin mobilizing patient as course progresses. Will likely require extended care facility on discharge. Subjective Patient seen and examined. Chart, medications, telemetry reviewed. Feeling some better. Significant fluid retention remains. I's and O's: -9,140 mL's overall, 8,519 mL's the last four days. May 26, 2019 TTE interpretation summary: Technically difficult. Normal size left ventricle. Mild concentric LVH. Septal motion consistent with conduction abnormality. Mild to moderate hypokinesis of the left ventricle. Ejection fraction 35 to 40%. Mild aortic valve sclerosis without stenosis. Moderately dilated left atrium. Enlarged RV cavity size. Telemetry: Sinus bradycardia in the 50s/sinus rhythm in the 60s. Review of Systems Review of Systems: All systems reviewed & are unremarkable except as noted in HPI & below Physical Exam Physical Exam: General: A&Ox3. NAD. Morbidly obese. HEENT: Normocephalic. Atraumatic. PER. Conjunctiva pink, sclera pale. I could not appreciate his neck veins. Heart: RRR. No murmur. + Gallop Lungs: Diminished anteriorly and laterally with faint right upper expiratory w heeze. Abdomen: +BS. Soft. No organomegaly. Extremities: Significant chronic indurated edema, 2-3+. No clubbing. No cyanosis. Limited neurological examination is without focal deficits. Pulses: Not found/appreciated Results & Data Vital Signs (Past 12 Hours) Vital Signs Temp Pulse Pulse Resp BP Pulse Ox 05/30/19 06:45 54 L 05/30/19 03:47 54 L 15 98 05/30/19 02:31 36.3 C L 56 L 18 147/72 H 95 05/29/19 23:16 36.4 C L 55 L 18 162/63 H 99 Laboratory Results Laboratory Results - last 24 hr 05/29/19 05/29/19 05/29/19 11:29 16:15 20:12 Sodium Potassium Chloride Carbon Dioxide Anion Gap BUN Creatinine Est Cr Clr Drug Dosing Est GFR ( Amer) Est GFR (Non-Af Amer) BUN/Creatinine Ratio Glucose POC Glucose 139 H 136 H 162 H Calcium 05/30/19 05/30/19 06:53 07:09 Sodium 140 Potassium 4.1 Chloride 103 Carbon Dioxide 34 H Anion Gap 4.0 BUN 21 H Creatinine 1.33 Est Cr Clr Drug Dosing 94.0 Est GFR ( Amer) 64.6 Est GFR (Non-Af Amer) 55.7 BUN/Creatinine Ratio 15.9 Glucose 102 H POC Glucose 113 H Calcium 8.7
--- NOTE | 2019-05-30 15:15 | Hospitalist Progress Note ---
Date of Service May 30, 2019 Assessment & Plan (1) Acute respiratory failure with hypoxia and hypercarbia: Acute on chronic hx chronic respiratory failure secondary to COPD on home O2 SAFIA on CPAP presented with SOB /JOHNSON :Secondary to decompensated heart failure/biventricular heart failure with evidence of pulmonary HTN ( obesity hypoventilation syndrome ) presented with Rt > left ventricular heart failure -generalized edema /anasarca /scrotal edema --Echo EF 35 to 40% appreciate input from cardiology --treated with IV diuretics Lasix and albumin -with adequate diuresis respiratory status improved with diuresis cont Bipap at night --Chaser Tar consulted-appreciate input -lasix dose cont with 80 IV BID will be changed to PO when discharged ( was at home 80 mg PO BID ) Elevated troponins Myocardial infarction type 2/demand ischemia in setting of decompensated CHF --Troponins peaked to 3.5 -was treated with IV heparin for 48 hrs /no evidence of ACS ECHO shows global LV hypokinesis --cardiology following , appreciate input ACUTE RENAL FAILURE WITH CKD STAGE 3 renal function been stable hypertension --as per Cardiology : norvasc D/mary (+ 3 lower ext edema ) . Added hydralazine dose increased to QID by cardiology cont nitrates given reduced LVEF and relative contraindications to TJ/ARB/Entresto/Aldacone due to hyperkalemia DM2 insulin requiring, suboptimal control as of recent outpatient hemoglobin A1c of 9.21 January 2019 --appreciate pharmacy consult for glycemic management anemia of chronic disease hemoglobin at baseline hypothyroidism euthyroid as of recent TSH November 2018 PT OT eval DVT prophylaxis. sub q heparin Full code DISPOSITION ; significant decline in functional status will need skilled rehab referral [facility] Subjective no change in status feels the same does not have any complain of SOB , feels very tired and weak no cough , no fever or chills increased bowel regimen for ongoing constipation no complain of nausea tolerating diet Physical Exam Constitutional: + morbidly obese Eyes: PERRL, conjunctivae normal, anicteric sclerae Neck: + thick neck Respiratory: Auscultation: + diminished lung sounds (Diffusely with poor airflow) Cardiovascular: Rate/Rhythm: regular rate and regular rhythm Extremities: + edema (2-3+) Gastrointestinal (Abdomen): Inspection/Auscultation: abdomen normal to inspection and normal bowel sounds Percussion/Palpation: abdomen soft; abdom en nontender Musculoskeletal: no cyanosis or clubbing, extremities motor strength 5/5 Skin: no rashes, warm and dry Neurologic: PERRL, EOMI, accommodation nl, no face palsy, no dysarthria Psychiatric: A+Ox3, euthymic affect Genitourinary: + scrotum abnormality (Edema) Results & Data Vital Signs (Past 12 Hours) Vital Signs Temp Pulse Pulse Resp BP Pulse Ox 05/30/19 14:37 54 L 05/30/19 11:28 36.9 C 54 L 22 163/51 H 98 05/30/19 06:45 54 L 05/30/19 03:47 54 L 15 98
[2019-05-30] MEDS: FUROSEMIDE 80 MG in SYRINGE 0 ML IV SCH (16:13)
[2019-05-30] MEDS: ATORVASTATIN 10 MG TAB PO SCH (19:50)
[2019-05-30] MEDS: INSULIN GLARGINE SOLOSTAR 100 UNITS/ML 3 ML PEN SC SCH (21:55)
[2019-05-31] MEDS: LEVOTHYROXINE SODIUM 200 MCG TABLET PO SCH (06:36)
[2019-05-31] MEDS: LEVOTHYROXINE SODIUM 25 MCG TABLET PO SCH (06:38)
[2019-05-31] MEDS: HEPARIN SOD 5,000 UNIT/0.5 ML VIAL SQ SCH ×3 (06:40→21:55)
[2019-05-31 07:01] LABS: Hematocrit (blood only) 29.9 % (42-52); Hemoglobin 9.2 g/dL (14.0-18.0); Mean Corpuscular Hemoglobin 26.4 pg (25-34); Mean Corpuscular Hgb Conc 30.8 g/dL (32-36); Mean Corpuscular Volume 85.9 fL (80-100); Mean Platelet Volume 10.1 fL (7.4-10.4); Platelet Count 179 K/uL (130-400); RDW Coefficient of Variation 18.1 % (11.5-14.5); RDW Standard Deviation 56.5 fL (36.4-46.3); Red Blood Count 3.48 M/uL (4.7-6.1); White Blood Count 5.06 K/uL (4.8-10.8)
[2019-05-31 07:31] LABS: BUN Creatinine Ratio 15.2 (10-20); Calcium 8.5 mg/dl (8.5-10.1); Creatinine Clr Calc Pharmacy 87.2 ml/min; Est GFR (African American) 59.1; Potassium 4.2 mmol/L (3.5-5.1)
[2019-05-31] MEDS: PANTOprazole 40 MG TAB PO SCH ×2 (07:44→21:55)
[2019-05-31] MEDS: METOPROLOL SUCC 25MG EXT REL TAB PO SCH ×2 (07:44→22:03)
[2019-05-31] MEDS: FLUTICASONE/SALMETEROL 250/50 (ADVAIR) 14 PUFF/1 INHALER INH SCH ×2 (07:44→21:55)
[2019-05-31] MEDS: NYSTATIN CR 15 GM TUBE EXT SCH ×2 (07:45→21:56)
[2019-05-31] MEDS: FLUTICASONE PROPIONATE NA SPR 16 GM BTL SCH (07:45)
[2019-05-31] MEDS: ASPIRIN 325 MG ECTAB PO SCH (07:45)
[2019-05-31] MEDS: FERROUS SULFATE 325 MG TAB PO SCH (07:46)
[2019-05-31] MEDS: POLYETHYLENE (MIRALAX) 17 GM PACK PO SCH (07:46)
[2019-05-31] MEDS: GABAPENTIN 100 MG CAP PO SCH ×3 (07:47→21:56)
[2019-05-31] MEDS: DOCUSATE SODIUM/SENNA 50/8.6MG TAB PO SCH (07:47)
[2019-05-31] MEDS: ISOSORBIDE DINITRATE 40 MG TAB PO SCH ×3 (07:47→17:30)
[2019-05-31] MEDS: INSULIN ASPART 100 UNITS/ML 3 ML PEN SC SCH ×4 (07:49→21:54)
[2019-05-31] MEDS: FUROSEMIDE 80 MG in SYRINGE 0 ML IV SCH ×2 (09:52→17:29)
--- NOTE | 2019-05-31 12:29 | Cardiology Progress Note ---
Date of Service May 31, 2019 Assessment & Plan (1) Acute respiratory failure with hypoxia and hypercapnia: Recommend continuation of BiPAP for mixed respiratory failure (2) Acute on chronic diastolic (congestive) heart failure: Right greater than left this is a biventricular heart failure. Marked anasarca and scrotal edema present Continue IV furosemide as prescribed. Continue to treat hypertension tolerating increased dose of hydralazine Treat underlying pulmonary issues, hypoventilation Examined electrolytes reflect mild contraction at this time. We will continue IV diuretics further Will need to begin mobilizing patient (3) Elevated troponin I level: Likely secondary to acute demand ischemia Moderate diffuse LV dysfunction on current echocardiogram No acute symptoms of chest pain or discomfort currently Manage medically (4) Left bundle branch block: . (5) Morbid obesity: Subjective Patient notes continued improvement. No shortness of breath no chest pain. No dizziness or lightheadedness. Continues to manifest diuresis Approximately 10 L diuresis since admission Physical Exam Constitutional: + morbidly obese Eyes: PERRL, conjunctivae normal, anicteric sclerae Neck: + thick neck Respiratory: Auscultation: + diminished lung sounds (Diffusely with poor airflow) Cardiovascular: Rate/Rhythm: regular rate and regular rhythm Extremities: + edema (2+) Gastrointestinal (Abdomen): Inspection/Auscultation: normal bowel sounds Percussion/Palpation: abdomen soft Neurologic: PERRL, EOMI, accommodation nl, no face palsy, no dysarthria Results & Data Vital Signs (Past 12 Hours) Vital Signs Temp Pulse Pulse Resp BP Pulse Ox 05/31/19 10:55 37.1 C 53 L 22 149/68 H 97 05/31/19 08:00 55 L 05/31/19 07:01 36.9 C 49 L 22 157/66 H 98 05/31/19 03:00 36.5 C 53 L 19 154/65 H 98 05/31/19 01:41 55 L 18 98 Laboratory Results Laboratory Results - last 24 hr 05/30/19 05/30/19 05/31/19 16:27 20:29 06:23 WBC RBC Hgb Hct MCV MCH MCHC RDW Std Deviation RDW Coeff of Neena Plt Count MPV Sodium 140 Potassium 4.2 Chloride 102 Carbon Dioxide 36 H Anion Gap 2.0 L BUN 22 H Creatinine 1.43 H Est Cr Clr Drug Dosing 87.2 Est GFR ( Amer) 59.1 Est GFR (Non-Af Amer) 51.0 BUN/Creatinine Ratio 15.2 Glucose 102 H POC Glucose 127 H 137 H Calcium 8.5 05/31/19 05/31/19 05/31/19 06:23 07:00 11:00 WBC 5.06 RBC 3.48 L Hgb 9.2 L Hct 29.9 L MCV 85.9 MCH 26.4 MCHC 30.8 L RDW Std Deviation 56.5 H RDW Coeff of Neena 18.1 H Plt Count 179 MPV 10.1 Sodium Potassium Chloride Carbon Dioxide Anion Gap BUN Creatinine Est Cr Clr Drug Dosing Est GFR ( Amer) Est GFR (Non-Af Amer) BUN/Creatinine Ratio Glucose POC Glucose 116 H 132 H Calcium
--- NOTE | 2019-05-31 15:42 | Hospitalist Progress Note ---
Date of Service May 31, 2019 Assessment & Plan (1) Acute respiratory failure with hypoxia and hypercarbia: Acute on chronic hx chronic respiratory failure secondary to COPD on home O2 SAFIA on CPAP presented with SOB /JOHNSON :Secondary to decompensated heart failure/biventricular heart failure with evidence of pulmonary HTN ( obesity hypoventilation syndrome ) presented with Rt > left ventricular heart failure -generalized edema /anasarca /scrotal edema --Echo EF 35 to 40% appreciate input from cardiology --treated with IV diuretics Lasix and albumin -with adequate diuresis respiratory status improved with diuresis cont Bipap at night --Reactor Operator consulted-appreciate input -lasix dose cont with 80 IV BID will be changed to PO when discharged ( was at home 80 mg PO BID ) Elevated troponins Myocardial infarction type 2/demand ischemia in setting of decompensated CHF --Troponins peaked to 3.5 -was treated with IV heparin for 48 hrs /no evidence of ACS ECHO shows global LV hypokinesis --cardiology following , appreciate input ACUTE RENAL FAILURE WITH CKD STAGE 3 renal function been stable hypertension --as per Cardiology : norvasc D/mary (+ 3 lower ext edema ) . Added hydralazine dose increased to QID by cardiology cont nitrates given reduced LVEF and relative contraindications to TJ/ARB/Entresto/Aldacone due to hyperkalemia DM2 insulin requiring, suboptimal control as of recent outpatient hemoglobin A1c of 9.21 January 2019 --appreciate pharmacy consult for glycemic management anemia of chronic disease hemoglobin at baseline hypothyroidism euthyroid as of recent TSH November 2018 PT OT eval DVT prophylaxis. sub q heparin Full code DISPOSITION ; significant decline in functional status will need skilled rehab referral made to [facility] Subjective feels fine no complain of SOB , no chest pain , no fever or chills Physical Exam Constitutional: + morbidly obese Eyes: PERRL, conjunctivae normal, anicteric sclerae Neck: + thick neck Respiratory: Auscultation: + diminished lung sounds (Diffusely with poor airflow) Cardiovascular: Rate/Rhythm: regular rate and regular rhythm Extremities: + edema (2-3+) Gastrointestinal (Abdomen): Inspection/Auscultation: abdomen normal to inspection and normal bowel sounds Percussion/Palpation: abdomen soft; abdomen nontender Musculoskeletal: no cyanosis or clubbing, extremities motor strength 5/5 Skin: no rashes, warm and dry Neurologic: PERRL, EOMI, accommodation nl, no face palsy, no dysarthria Psychiatric: A+Ox3, euthymic affect Genitourinary: + scrotum abnormality (Edema) Results & Data Vital Signs (Past 12 Hours) Vital Signs Temp Pulse Pulse Pulse Resp BP Pulse Ox 05/31/19 14:53 37.0 C 54 L 19 141/62 H 98 05/31/19 10:55 37.1 C 53 L 22 149/68 H 97 05/31/19 08:00 55 L 05/31/19 07:01 36.9 C 49 L 22 157/66 H 98
[2019-05-31] MEDS: INSULIN GLARGINE SOLOSTAR 100 UNITS/ML 3 ML PEN SC SCH (21:54)
[2019-05-31] MEDS: ATORVASTATIN 10 MG TAB PO SCH (21:55)
[2019-06-01] MEDS: HEPARIN SOD 5,000 UNIT/0.5 ML VIAL SQ SCH ×3 (05:29→21:45)
[2019-06-01] MEDS: LEVOTHYROXINE SODIUM 25 MCG TABLET PO SCH (05:30)
[2019-06-01] MEDS: LEVOTHYROXINE SODIUM 200 MCG TABLET PO SCH (05:30)
[2019-06-01 08:10] LABS: BUN Creatinine Ratio 16.8 (10-20); Calcium 8.8 mg/dl (8.5-10.1); Creatinine Clr Calc Pharmacy 90.8 ml/min; Est GFR (African American) 62.3; Est GFR (Non-African American) 53.7; Potassium 4.2 mmol/L (3.5-5.1)
[2019-06-01] MEDS: FLUTICASONE/SALMETEROL 250/50 (ADVAIR) 14 PUFF/1 INHALER INH SCH ×2 (08:13→21:43)
[2019-06-01] MEDS: FLUTICASONE PROPIONATE NA SPR 16 GM BTL SCH (08:14)
[2019-06-01] MEDS: FUROSEMIDE 80 MG in SYRINGE 0 ML IV SCH ×2 (08:14→16:50)
[2019-06-01] MEDS: DOCUSATE SODIUM/SENNA 50/8.6MG TAB PO SCH (08:14)
[2019-06-01] MEDS: METOPROLOL SUCC 25MG EXT REL TAB PO SCH ×2 (08:15→21:44)
[2019-06-01] MEDS: POLYETHYLENE (MIRALAX) 17 GM PACK PO SCH (08:15)
[2019-06-01] MEDS: PANTOprazole 40 MG TAB PO SCH ×2 (08:15→21:44)
[2019-06-01] MEDS: NYSTATIN CR 15 GM TUBE EXT SCH ×2 (08:15→21:44)
[2019-06-01] MEDS: ASPIRIN 325 MG ECTAB PO SCH (08:16)
[2019-06-01] MEDS: INSULIN ASPART 100 UNITS/ML 3 ML PEN SC SCH ×4 (08:16→21:47)
[2019-06-01] MEDS: FERROUS SULFATE 325 MG TAB PO SCH (08:16)
[2019-06-01] MEDS: GABAPENTIN 100 MG CAP PO SCH ×3 (08:16→21:43)
[2019-06-01] MEDS: ISOSORBIDE DINITRATE 40 MG TAB PO SCH ×3 (08:17→16:50)
--- NOTE | 2019-06-01 09:56 | Pharmacy Report ---
Pharmacy Glycemic Short Note 2 - Date of Service June 01, 2019 - Glycemic Short BSG Results (Last 24 hours): 05/31/19 05/31/19 05/31/19 11:00 16:10 20:28 Glucose POC Glucose 132 H 136 H 126 H 06/01/19 06/01/19 07:01 07:11 Glucose 93 POC Glucose 111 H OUTPATIENT ANTIDIABETIC REGIMEN: * Lantus 68u HS + Humalog with meals (12 units with breakfast and lunch + 14 units with dinner) ASSESSMENT: * Patient received 121 units over the past 24 hours * 60 units of basal insulin * 61 units of prandial/correctional insulin * BSGs ranging 102 - 136 over the past 24hrs * No change in potential insulin resistance risk factors PLAN FOR INPATIENT GLYCEMIC CONTROL: * Basal insulin * Continue Lantus 60 units HS * Bolus insulin - continue * NovoLog per scale ACHS or Q6hrs while NPO * Goal Range: Low 110 mg/dL - High 140 mg/dL * Correction Factor: 10 mg/dL/unit * Nutritional / Prandial insulin per carb ratio of 1 unit per 3 grams CHO consumed PLAN FOR DISCHARGE: * Reasonable HbA1c goal for most non- adults is less than 7% * A1C from 01/30/19 was 9.6%, most recent A1C of 8.6% indicative of improvement in outpatient glycemic management. * Reasonable to continue home Lantus dose of 68 units - could consider increasing Humalog to 14 units TIDM * Support Patient Self-Management * Healthy Lifestyle (diet, exercise, and smoking cessation) * Disease self-management (SMBG) * Prevention of complications (BP, Lipid goals, Immunizations) * Consider outpatient Diabetes Self-Management Education & Support
--- NOTE | 2019-06-01 10:00 | Cardiology Progress Note ---
Date of Service June 01, 2019 Assessment & Plan (1) Acute respiratory failure with hypoxia and hypercapnia: Recommend continuation of BiPAP for mixed respiratory failure (2) Acute on chronic diastolic (congestive) heart failure: Right greater than left this is a biventricular heart failure. Marked anasarca and scrotal edema present Continue IV furosemide as prescribed. Continue to treat hypertension tolerating increased dose of hydralazine Treat underlying pulmonary issues, hypoventilation Examined electrolytes reflect mild contraction at this time. We will continue IV diuretics further Will need to begin mobilizing patient (3) Elevated troponin I level: Likely secondary to acute demand ischemia Moderate diffuse LV dysfunction on current echocardiogram No acute symptoms of chest pain or discomfort currently Manage medically (4) Left bundle branch block: . (5) Morbid obesity: Subjective Patient seen and examined No complaints again. Continues to have gradual diuresis with preserved renal function. Physical Exam Constitutional: + morbidly obese Eyes: PERRL, conjunctivae normal, anicteric sclerae Neck: + thick neck Respiratory: Auscultation: + diminished lung sounds (Diffusely with poor airflow) Cardiovascular: Rate/Rhythm: regular rate and regular rhythm Extremities: + edema (2+) Gastrointestinal (Abdomen): Inspection/Auscultation: normal bowel sounds Percussion/Palpation: abdomen soft Neurologic: PERRL, EOMI, accommodation nl, no face palsy, no dysarthria Genitourinary: + scrotum abnormality (Edema) Results & Data Vital Signs (Past 12 Hours) Vital Signs Temp Pulse Pulse Pulse Resp BP Pulse Ox 06/01/19 08:00 36.7 C 60 54 L 19 147/67 H 98 06/01/19 03:58 37.1 C 52 L 20 144/69 H 99 06/01/19 03:20 60 16 97 06/01/19 00:06 37.6 C H 55 L 23 139/56 L 98
--- NOTE | 2019-06-01 11:21 | Hospitalist Progress Note ---
Date of Service June 01, 2019 Assessment & Plan (1) Acute respiratory failure with hypoxia and hypercarbia: Acute on chronic hx chronic respiratory failure secondary to COPD on home O2 SAFIA on CPAP presented with SOB /JOHNSON :Secondary to decompensated heart failure/biventricular heart failure with evidence of pulmonary HTN ( obesity hypoventilation syndrome ) presented with Rt > left ventricular heart failure -generalized edema /anasarca /scrotal edema --Echo EF 35 to 40% appreciate input from cardiology --treated with IV diuretics Lasix and albumin -with adequate diuresis respiratory status improved with diuresis cont Bipap at night --House Cleaner consulted-appreciate input -lasix dose cont with 80 IV BID renal function stays stable will be changed to PO when discharged ( was at home 80 mg PO BID ) Elevated troponins Myocardial infarction type 2/demand ischemia in setting of decompensated CHF --Troponins peaked to 3.5 -was treated with IV heparin for 48 hrs /no evidence of ACS ECHO shows global LV hypokinesis --cardiology following , appreciate input ACUTE RENAL FAILURE WITH CKD STAGE 3 renal function been stable hypertension --as per Cardiology : norvasc D/mary (+ 3 lower ext edema ) . Added hydralazine dose increased to QID by cardiology cont nitrates given reduced LVEF and relative contraindications to TJ/ARB/Entresto/Aldacone due to hyperkalemia DM2 insulin requiring, suboptimal control as of recent outpatient hemoglobin A1c of 9.21 January 2019 --appreciate pharmacy consult for glycemic management anemia of chronic disease hemoglobin at baseline hypothyroidism euthyroid as of recent TSH November 2018 PT OT eval DVT prophylaxis. sub q heparin Full code DISPOSITION ; significant decline in functional status will need skilled rehab referral made to [facility] Subjective offers no new complain no worsening of SOB , no cough ,no fever or chills feels the same Review of Systems Review of Systems: All systems reviewed & are unremarkable except as noted in HPI & below Physical Exam Constitutional: + morbidly obese Eyes: PERRL, conjunctivae normal, anicteric sclerae Neck: + thick neck Respiratory: normal respiratory effort Auscultation: + diminished lung sounds Cardiovascular: Rate/Rhythm: regular rate and regular rhythm Extremities: + edema (2-3+) Gastrointestinal (Abdomen): Inspection/Auscultation: abdomen normal to inspection and normal bowel sounds Percussion/Palpation: abdomen soft; abdomen nontender Musculoskeletal: no cyanosis or clubbing, extremities motor strength 5/5 Skin: no rashes, warm and dry Neurologic: PERRL, EOMI, accommodation nl, no face palsy, no dysarthria Psychiatric: A+Ox3, euthymic affect Genitourinary: + scrotum abnormality (Edema) Results & Data Vital Signs (Past 12 Hours) Vital Signs Temp Pulse Pulse Pulse Resp BP Pulse Ox 06/01/19 10:49 36.9 C 55 L 22 169/61 H 96 06/01/19 08:00 36.7 C 60 54 L 19 147/67 H 98 06/01/19 03:58 37.1 C 52 L 20 144/69 H 99 06/01/19 03:20 60 16 97 06/01/19 00:06 37.6 C H 55 L 23 139/56 L 98
[2019-06-01] MEDS: ATORVASTATIN 10 MG TAB PO SCH (21:44)
[2019-06-01] MEDS: INSULIN GLARGINE SOLOSTAR 100 UNITS/ML 3 ML PEN SC SCH (21:45)
[2019-06-02] MEDS: LEVOTHYROXINE SODIUM 200 MCG TABLET PO SCH (06:36)
[2019-06-02] MEDS: HEPARIN SOD 5,000 UNIT/0.5 ML VIAL SQ SCH ×3 (06:36→20:48)
[2019-06-02] MEDS: LEVOTHYROXINE SODIUM 25 MCG TABLET PO SCH (06:36)
[2019-06-02 08:21] LABS: Est GFR (African American) 61.7; Est GFR (Non-African American) 53.3; Potassium 4.3 mmol/L (3.5-5.1)
[2019-06-02 08:22] LABS: BUN Creatinine Ratio 17.3 (10-20); Calcium 9.1 mg/dl (8.5-10.1); Creatinine Clr Calc Pharmacy 88.7 ml/min
[2019-06-02] MEDS: PANTOprazole 40 MG TAB PO SCH ×2 (08:54→20:47)
[2019-06-02] MEDS: FUROSEMIDE 80 MG in SYRINGE 0 ML IV SCH (08:54)
[2019-06-02] MEDS: DOCUSATE SODIUM/SENNA 50/8.6MG TAB PO SCH (08:55)
[2019-06-02] MEDS: FERROUS SULFATE 325 MG TAB PO SCH (08:55)
[2019-06-02] MEDS: ISOSORBIDE DINITRATE 40 MG TAB PO SCH ×3 (08:55→16:34)
[2019-06-02] MEDS: POLYETHYLENE (MIRALAX) 17 GM PACK PO SCH (08:55)
[2019-06-02] MEDS: GABAPENTIN 100 MG CAP PO SCH ×3 (08:55→20:47)
[2019-06-02] MEDS: FLUTICASONE/SALMETEROL 250/50 (ADVAIR) 14 PUFF/1 INHALER INH SCH ×2 (08:56→20:45)
[2019-06-02] MEDS: ASPIRIN 325 MG ECTAB PO SCH (08:56)
[2019-06-02] MEDS: FLUTICASONE PROPIONATE NA SPR 16 GM BTL SCH (08:56)
[2019-06-02] MEDS: METOPROLOL SUCC 25MG EXT REL TAB PO SCH ×2 (08:57→20:46)
[2019-06-02] MEDS: NYSTATIN CR 15 GM TUBE EXT SCH ×2 (08:57→20:50)
[2019-06-02] MEDS: INSULIN ASPART 100 UNITS/ML 3 ML PEN SC SCH ×4 (08:58→20:49)
--- NOTE | 2019-06-02 14:29 | Hospitalist Progress Note ---
Date of Service June 02, 2019 Assessment & Plan (1) Acute respiratory failure with hypoxia and hypercarbia: Acute on chronic hx chronic respiratory failure secondary to COPD on home O2 SAFIA on CPAP presented with SOB /JOHNSON :Secondary to decompensated heart failure/biventricular heart failure with evidence of pulmonary HTN ( obesity hypoventilation syndrome ) presented with Rt > left ventricular heart failure -generalized edema /anasarca /scrotal edema --Echo EF 35 to 40% appreciate input from cardiology --treated with IV diuretics Lasix and albumin -with adequate diuresis respiratory status improved with diuresis cont Bipap at night --Boiler Tester consulted-appreciate input -lasix dose cont with 80 IV BID renal function stays stable Lasix changed to 80 mg PO BID today Elevated troponins Myocardial infarction type 2/demand ischemia in setting of decompensated CHF --Troponins peaked to 3.5 -was treated with IV heparin for 48 hrs /no evidence of ACS ECHO shows global LV hypokinesis --cardiology following , appreciate input ACUTE RENAL FAILURE WITH CKD STAGE 3 renal function been stable while getting diuretics hypertension --as per Cardiology : norvasc D/mary (+ 3 lower ext edema ) . Added hydralazine dose increased to QID by cardiology cont nitrates given reduced LVEF and relative contraindications to TJ/ARB/Entresto/Aldacone due to hyperkalemia DM2 insulin requiring, suboptimal control as of recent outpatient hemoglobin A1c of 9.21 January 2019 --appreciate pharmacy consult for glycemic management anemia of chronic disease hemoglobin at baseline hypothyroidism euthyroid as of recent TSH November 2018 PT OT eval DVT prophylaxis. sub q heparin Full code DISPOSITION ; significant decline in functional status will need skilled rehab referral made to [facility] Subjective feels the same breathing is stable no worsening of cough , orthopnea or SOB no fever or chills feels bloated , did not had any bowel movement for last 3 days Physical Exam Constitutional: + morbidly obese Eyes: PERRL, conjunctivae normal, anicteric sclerae Neck: + thick neck Respiratory: normal respiratory effort Auscultation: + diminished lung sounds Cardiovascular: Rate/Rhythm: regular rate and regular rhythm Extremities: + edema (2-3+) Gastrointestinal (Abdomen): Inspection/Auscultation: abdomen normal to inspection and normal bowel sounds Percussion/Palpation: abdomen soft; abdomen nontender Musculoskeletal: no cyanosis or clubbing, extremities motor strength 5/5 Skin: no rashes, warm and dry Neurologic: PERRL, EOMI, accommodation nl, no face palsy, no dysarthria Psychiatric: A+Ox3, euthymic affect Genitourinary: + scrotum abnormality (Edema) Results & Data Vital Signs (Past 12 Hours) Vital Signs Temp Pulse Pulse Pulse Resp BP BP 06/02/19 10:54 36.7 C 51 L 28 H 142/61 H 06/02/19 10:50 48 L 06/02/19 07:01 36.9 C 51 L 20 144/62 H 06/02/19 05:28 36.8 C 48 L 18 138/63 06/02/19 03:20 53 L 20 Pulse Ox 06/02/19 10:54 98 06/02/19 10:50 06/02/19 07:01 98 06/02/19 05:28 99 06/02/19 03:20 97
[2019-06-02] MEDS ORDERED: bisacodyL 10 MG SUPP PR STA (16:03)
[2019-06-02] MEDS: FUROSEMIDE 80 MG TAB PO SCH (16:33)
--- NOTE | 2019-06-02 17:16 | Cardiology Progress Note ---
Date of Service June 02, 2019 Assessment & Plan (1) Acute respiratory failure with hypoxia and hypercapnia: Recommend continuation of BiPAP for mixed respiratory failure (2) Acute on chronic diastolic (congestive) heart failure: Right greater than left this is a biventricular heart failure. Marked anasarca and scrotal edema present Continue IV furosemide as prescribed. Continue to treat hypertension tolerating increased dose of hydralazine Treat underlying pulmonary issues, hypoventilation Examined electrolytes reflect mild contraction at this time. We will continue IV diuretics further Will need to begin mobilizing patient CHF instructions ordered (3) Elevated troponin I level: Likely secondary to acute demand ischemia Moderate diffuse LV dysfunction on current echocardiogram No acute symptoms of chest pain or discomfort currently Manage medically (4) Left bundle branch block: . (5) Morbid obesity: Subjective Patient seen and examined, chart, medications, telemetry reviewed No clinical change overall. Continues to manifest diuresis no chest pains or shortness of breath Physical Exam Constitutional: + morbidly obese Eyes: PERRL, conjunctivae normal, anicteric sclerae Neck: + thick neck Respiratory: Auscultation: + diminished lung sounds (Diffusely with poor airflow) Cardiovascular: Rate/Rhythm: regular rate and regular rhythm Extremities: + edema (2+) Gastrointestinal (Abdomen): Inspection/Auscultation: normal bowel sounds Percussion/Palpation: abdomen soft Neurologic: PERRL, EOMI, accommodation nl, no face palsy, no dysarthria Genitourinary: + scrotum abnormality (Edema) Results & Data Vital Signs (Past 12 Hours) Vital Signs Temp Pulse Pulse Pulse Resp BP BP 06/02/19 16:49 53 L 06/02/19 15:06 36.9 C 52 L 20 144/61 H 06/02/19 10:54 36.7 C 51 L 28 H 142/61 H 06/02/19 10:50 48 L 06/02/19 07:01 36.9 C 51 L 20 144/62 H 06/02/19 05:28 36.8 C 48 L 18 138/63 Pulse Ox 06/02/19 16:49 06/02/19 15:06 95 06/02/19 10:54 98 06/02/19 10:50 06/02/19 07:01 98 06/02/19 05:28 99 Laboratory Results Laboratory Results - last 24 hr 12/06/02/19 06/02/19 21:11 07:00 07:29 Sodium 141 Potassium 4.3 Chloride 105 Carbon Dioxide 34 H Anion Gap 2.0 L BUN 24 H Creatinine 1.38 Est Cr Clr Drug Dosing 88.7 Est GFR ( Amer) 61.7 Est GFR (Non-Af Amer) 53.3 BUN/Creatinine Ratio 17.3 Glucose 95 POC Glucose 154 H 100 H Calcium 9.1 06/02/19 06/02/19 10:58 16:10 Sodium Potassium Chloride Carbon Dioxide Anion Gap BUN Creatinine Est Cr Clr Drug Dosing Est GFR ( Amer) Est GFR (Non-Af Amer) BUN/Creatinine Ratio Glucose POC Glucose 201 H 118 H Calcium
[2019-06-02] MEDS: ATORVASTATIN 10 MG TAB PO SCH (20:47)
[2019-06-02] MEDS: INSULIN GLARGINE SOLOSTAR 100 UNITS/ML 3 ML PEN SC SCH (20:48)
[2019-06-03] MEDS: LEVOTHYROXINE SODIUM 200 MCG TABLET PO SCH (05:51)
[2019-06-03] MEDS: LEVOTHYROXINE SODIUM 25 MCG TABLET PO SCH (05:51)
[2019-06-03] MEDS: HEPARIN SOD 5,000 UNIT/0.5 ML VIAL SQ SCH ×2 (05:52→13:52)
[2019-06-03 07:39] LABS: Hematocrit (blood only) 31.1 % (42-52); Hemoglobin 9.4 g/dL (14.0-18.0); Mean Corpuscular Hemoglobin 25.8 pg (25-34); Mean Corpuscular Hgb Conc 30.2 g/dL (32-36); Mean Corpuscular Volume 85.2 fL (80-100); Mean Platelet Volume 10.1 fL (7.4-10.4); Platelet Count 177 K/uL (130-400); RDW Standard Deviation 56.5 fL (36.4-46.3); Red Blood Count 3.65 M/uL (4.7-6.1); White Blood Count 5.27 K/uL (4.8-10.8)
[2019-06-03] MEDS: INSULIN ASPART 100 UNITS/ML 3 ML PEN SC SCH ×2 (07:55→12:37)
[2019-06-03] MEDS: PANTOprazole 40 MG TAB PO SCH (07:56)
[2019-06-03] MEDS: FERROUS SULFATE 325 MG TAB PO SCH (07:56)
[2019-06-03] MEDS: METOPROLOL SUCC 25MG EXT REL TAB PO SCH (07:56)
[2019-06-03] MEDS: FLUTICASONE/SALMETEROL 250/50 (ADVAIR) 14 PUFF/1 INHALER INH SCH (07:57)
[2019-06-03] MEDS: FUROSEMIDE 80 MG TAB PO SCH (07:57)
[2019-06-03] MEDS: ISOSORBIDE DINITRATE 40 MG TAB PO SCH ×2 (07:57→12:39)
[2019-06-03] MEDS: GABAPENTIN 100 MG CAP PO SCH ×2 (07:57→13:52)
[2019-06-03] MEDS: DOCUSATE SODIUM/SENNA 50/8.6MG TAB PO SCH (07:57)
[2019-06-03] MEDS: ASPIRIN 325 MG ECTAB PO SCH (07:57)
[2019-06-03] MEDS: FLUTICASONE PROPIONATE NA SPR 16 GM BTL SCH (07:58)
[2019-06-03] MEDS: NYSTATIN CR 15 GM TUBE EXT SCH (07:58)
[2019-06-03] MEDS: POLYETHYLENE (MIRALAX) 17 GM PACK PO SCH (07:58)
--- NOTE | 2019-06-03 11:50 | Discharge Summary ---
Date of Service June 03, 2019 Admission HPI Per Admitting Provider History obtained from patient and records. Medical history significant for chronic respiratory failure secondary to COPD on home O2 in a.m., SAFIA on CPAP, chronic diastolic heart failure as per records, chronic LBBB, hypertension, hyperlipidemia, DM 2 insulin requiring, chronic anemia (baseline hemoglobin 9-10), hypothyroidism, past tobacco abuse. Recent confinement October 2018 for decompensated heart failure, respiratory failure. Occult GI bleed attributed to nonbleeding duodenal ulcers on EGD. Patient completed Protonix course. Patient discharged to [facility] for rehab. Patient seen at the ER yesterday morning after sliding off the edge of his recliner which led to patient landing on his bottom and trouble getting up. No chest pain, no S OB. Admits to some fluid retention with abdominal distention, leg swelling despite compliance with home diuretic. Unable to weigh himself at home as rating scales do not work as per outpatient care notes. Denies NSAID intake/dietary indiscretion. Patient does not feel safe at home, unable to care for himself. At the ER yesterday a.m., patient received neb treatment for pulmonary edema on CXR. Patient discharged to [facility] rehab facility from the ER. Patient was being bathed last night at rehab facility when he noticed increasing shortness of breath. Transient achy left-sided chest discomfort. No unusual cough, flulike symptoms. O2 sats noted to be 50s. At the ER, BiPAP initiated. Patient received IV Lasix, IV Solu-Medrol at the ER. Patient currently feeling better. 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 Principal Diagnosis ACUTE ON CHRONIC HEART FAILURE WITH DIASTOLIC DYSFUNCTION /HYPERTENSION /CKD STAGE 3 /CHRONIC RESPIRATORY FAILURE Discharge Exam Constitutional + morbidly obese Eyes PERRL, conjunctivae normal, anicteric sclerae Neck + thick neck Respiratory normal respiratory effort Auscultation: + diminished lung sounds Cardiovascular Rate/Rhythm: regular rate and regular rhythm Extremities: + edema (2-3+) Gastrointestinal (Abdomen) Inspection/Auscultation: abdomen normal to inspection and normal bowel sounds Percussion/Palpation: abdomen soft; abdomen nontender Musculoskeletal no cyanosis or clubbing, extremities motor strength 5/5 Skin no rashes, warm and dry Neurologic PERRL, EOMI, accommodation nl, no face palsy, no dysarthria Psychiatric A+Ox3, euthymic affect Genitourinary + scrotum abnormality (Edema) Discharge Data Allergies Allergy/AdvReac Type Severity Reaction Status Date / Time pollen extracts Allergy Mild sneezing/watery Verified 05/26/19 00:14 eyes Consultations 05/26/19 00:20 ED Decision to Admit Stat 05/26/19 04:28 Consult Cardiology Routine Ordered Studies 05/26/19 04:28 US venous doppler [facility] Urgent Hospital Course (1) Acute respiratory failure with hypoxia and hypercarbia: Acute on chronic hx chronic respiratory failure secondary to COPD on home O2 SAFIA on CPAP presented with SOB /JOHNSON :Secondary to decompensated heart failure/biventricular heart failure with evidence of pulmonary HTN ( obesity hypoventilation syndrome ) presented with Rt > left ventricular heart failure -generalized edema /anasarca /scrotal edema --Echo EF 35 to 40% appreciate input from cardiology --treated with IV diuretics Lasix 80 mg BID and albumin -with adequate diuresis respiratory status improved to baseline cont Bipap at night --Help Desk Analyst consulted-appreciate input renal function stays stable Lasix changed to 80 mg PO BID Elevated troponins Myocardial infarction type 2/demand ischemia in setting of decompensated CHF --Troponins peaked to 3.5 -was treated with IV heparin for 48 hrs /no evidence of ACS ECHO shows global LV hypokinesis --cardiology following , appreciate input ACUTE RENAL FAILURE WITH CKD STAGE 3 renal function been stable while getting diuretics hypertension --as per Cardiology : norvasc D/mary (+ 3 lower ext edema ) . Added hydralazine dose increased to 50 mg QID by cardiology cont nitrates given reduced LVEF and relative contraindications to TJ/ARB/Entresto/Aldacone due to hyperkalemia DM2 insulin requiring, suboptimal control as of recent outpatient hemoglobin A1c of 9.21 January 2019 --appreciate pharmacy consult for glycemic management anemia of chronic disease hemoglobin at baseline hypothyroidism euthyroid as of recent TSH November 2018 PT OT eval DVT prophylaxis. sub q heparin Full code DISPOSITION ; significant decline in functional status will need skilled rehab accepted at [facility] stable to transfer to SNF today Total Time Total Time Spent Total Time Spent (In Minutes): approx 35 mins Total Time Includes: Examination of the Patient, Discharge Planning and Medication Reconciliation Discharge Plan Discharge Items Patient Disposition: Transfer Group Home Fac Reason For Visit: RESPIRATORY FAILURE, CHF Discharge Diagnosis: ACUTE ON CHRONIC HEART FAILURE WITH DIASTOLIC DYSFUNCTION /HYPERTENSION /CKD STAGE 3 /CHRONIC RESPIRATORY FAILURE Activity: As commented below Activity Comment: CONTINUE PT/OT AT REHAB Non-emergency contact: Primary Care Provider Call non-emergency contact if: you have any medication questions Follow-up/Referrals: Susanne Macias DO [Primary Care Provider] - Diet: Heart Healthy Fluids: 2000ml (8 cups) Addtl Attending Provider Instructions: Call your Primary Care doctor if any of the following symptoms or problems start or get worse: * Shortness of breath or difficulty breathing * Wake up at night short of breath * Chest pain * Cough * Swelling of your hands, feet, or legs * More fatigued or tired with your normal activity * Palpitations - sudden fast heart beats WEIGHT * Weigh yourself every morning after using the bathroom. * Use the same scale. * Wear the same amount of clothing. * Write your weight down on a chart. * Call your Primary Care doctor if you gain more than 2-3 pounds in 1-2 days. MEDICATIONS * Use this discharge instruction sheet for medication instructions. * Take your medications at the time your doctor ordered. * Do not skip a dose of your medicines. * If you miss a dose of medicine, take it as soon as possible, but DO NOT DOUBLE A DOSE. * Read your medicine information when you get home. * Know all of the side effects of your medicine. If in doubt, ask your pharmacist * Call your Primary Care doctor's office if you have any side effects. * Be sure all of your doctors know what medicine and herbs you take (including cold, flu, and herbal medicine). Take the following with you to your follow-up doctor appointments: * Weight Chart * Medication List * List of questions Do not drink excessive alcohol, beer or wine. Pending Studies at Discharge: No Stand-Alone Forms: My Sincerely [place] Skilled Items Patient informed of condition?: Yes DNR: No Discharge Level of Care: Skilled Communicable Disease: No Discharge Prognosis: Stable Lines: None Urinary Catheter: No Medications and DC Order Prescriptions: New nystatin 100,000 unit/gram Cream 1 applic EXT BID 30 Days Qty: 30 RF: 0 polyethylene glycol 3350 [Miralax] 17 gram Powder In Packet 17 g PO DAILY 30 Days Qty: 30 RF: 0 sennosides-docusate sodium [Senokot-S] 8.6-50 mg Tablet 1 tab PO QAM 30 Days Qty: 30 RF: 0 Desenex 2 % Powder 1 applic EXT BID 30 Days Qty: 1 RF: 0 hydralazine 25 mg Tablet 50 mg PO QID 30 Days Qty: 240 RF: 0 Isordil 40 mg Tablet 40 mg PO TID Qty: 90 RF: 0 Continued pantoprazole 40 mg tablet,delayed release (DR/EC) 40 mg PO BID RF: 0 (DME) Aerochamber MV spacer See Dose Instructions .ROUTE .MEDSUPPLY Qty: 1 RF: 0 (DME) BiPap Supplies Misc See Dose Instructions .ROUTE .MEDSUPPLY Qty: 1 RF: 0 (DME) Oxygen Home Liters Per Minute See Dose Instructions .ROUTE .MEDSUPPLY Qty: 3 RF: 0 atorvastatin 10 mg tablet 10 mg PO HS RF: 0 levothyroxine 25 mcg tablet 25 mcg PO QAM RF: 0 levothyroxine 200 mcg tablet 200 mcg PO QAM RF: 0 metoprolol succinate 25 mg tablet extended release 24 hr 25 mg PO QAM RF: 0 aspirin 325 mg Tablet 325 mg PO QAM RF: 0 fluticasone propionate 50 mcg/actuation spray,suspension 2 spray intranasal QAM RF: 0 gabapentin 100 mg Capsule 100 mg PO TID RF: 0 furosemide [Lasix] 80 mg Tablet 80 mg PO BID RF: 0 insulin lispro [Humalog U-100 Insulin] 100 unit/mL Solution 14 unit SUBCUT QDD RF: 0 Humalog U-100 Insulin 100 unit/mL Cartridge 12 unit SUBCUT BID RF: 0 Lantus Solostar U-100 Insulin 100 unit/mL (3 mL) Insulin Pen 68 unit SUBCUT HS RF: 0 Breo Ellipta 100-25 mcg/dose Blister With Device 1 inh INHALATION QAM RF: 0 Discontinued prazosin 1 mg Capsule 1 mg PO TID RF: 0 amlodipine 10 mg Tablet 10 mg PO QAM RF: 0 isosorbide dinitrate 20 mg Tablet 20 mg PO TID RF: 0 Discharge Orders: Discharge Order (Routine); Ordered 06/03/19 Ordered By: Herlinda Mccloud/Other Patient Handouts: Diabetes Healthy Meals, Diabetes Meal Planning Admission Data Admit Date/Time: 05/26/19 02:43 Attending Provider: Herlinda Gannon Admit Provider: Minesh Chavis Primary Care Provider: Susanne Macias Other Providers: Minesh Chavis ; Olivier Suazo ; Luis Fernando, ; [place] Other Interventions: Discharge Summary Assessment (RN) Last Done: 06/03/19 10:50
== END 2019-06-03 15:27 | DRG 280 ==
LOC: ED 23:33 → 2S 05-26 02:43 → SUATTDRO 05-26 02:43 → 2S 05-26 03:15

== ENCOUNTER 2019-11-29 20:12 | Inpatient (IN) ==
[2019-11-29] MEDS ORDERED: ALBUT/IPRATROP 3MG/0.5MG NEB 3 ML VIAL NEB ONE (20:41)
[2019-11-29 20:53] LABS: Basophils # (auto) 0.05 K/uL (0-0.2); Basophils % (auto) 0.9 %; Eosinophils # (auto) 0.05 K/uL (0-0.5); Eosinophils % (auto) 0.9 %; Hematocrit (blood only) 35.1 % (42-52); Hemoglobin 10.4 g/dL (14.0-18.0); Immature Granulocytes # (auto) 0.01 K/uL (0.00-0.02); Immature Granulocytes % (auto) 0.2 %; Lymphocytes # (auto) 1.47 K/uL (1.2-3.4); Lymphocytes % (auto) 27.5 %; Mean Corpuscular Hemoglobin 28.2 pg (25-34); Mean Corpuscular Hgb Conc 29.6 g/dL (32-36); Mean Corpuscular Volume 95.1 fL (80-100); Mean Platelet Volume 9.4 fL (7.4-10.4); Monocytes # (auto) 0.54 K/uL (0.11-0.59); Monocytes % (auto) 10.1 %; Neutrophils # (auto) 3.23 K/uL (1.4-6.5); Neutrophils % (auto) 60.4 %; Platelet Count 173 K/uL (130-400); RDW Coefficient of Variation 14.9 % (11.5-14.5); RDW Standard Deviation 51.8 fL (36.4-46.3); Red Blood Count 3.69 M/uL (4.7-6.1); White Blood Count 5.35 K/uL (4.8-10.8)
[2019-11-29 21:02] LABS: iSTAT Creatinine 1.1 mg/dl (0.6-1.3); iSTAT Hemoglobin 10.9 g/dl (14.0-18.0); iSTAT Ionized Calcium 1.19 mmol/l (1.12-1.32); iSTAT Potassium 4.8 mmol/L (3.3-5.0)
[2019-11-29 21:06] LABS: INR 1.1 (0.9-1.1); Partial Thromboplastin Time 28.1 Seconds (21.0-31.0)
[2019-11-29 21:09] LABS: Albumin Level 2.1 gm/dl (3.4-5.0); BUN Creatinine Ratio 17.9 (10-20); Calcium 8.4 mg/dl (8.5-10.1); Creatinine Clr Calc Pharmacy 110.5 ml/min; Est GFR (African American) 79.5; Est GFR (Non-African American) 68.6; Magnesium 1.8 mg/dl (1.8-2.4); Potassium 4.7 mmol/L (3.5-5.1)
[2019-11-29 21:14] LABS: Albumin Globulin Ratio 0.4 (0.9-2); Bilirubin,Total 0.2 mg/dl (0.2-1); Globulin 4.9 gm/dl (2.5-4.0); Troponin I 0.032 ng/ml (0-0.045)
[2019-11-29] MEDS ORDERED: FUROSEMIDE 40 MG/4 ML VIAL IV STA (21:27)
[2019-11-29 21:28] LABS: Base Excess VBG 4.3 mEq/L; Oxygen Saturation VBG 89.3 %; pH VBG 7.33 (7.36-7.41)
--- NOTE | 2019-11-29 23:20 | Emergency Department Note ---
History of Present Illness General Chief complaint: Shortness of Breath/Dyspnea Stated complaint: sob Time Seen by Provider: 11/29/19 20:35 History of Present Illness Provider complaint: Shortness of breath/hallucinations 63-year-old male presents emergency department with difficulty breathing. Per EMS, the patient has been having increased difficulty breathing for the last few days. They state he has been having auditory hallucinations. Patient always wears oxygen 2 L. Patient denies any chest pain. Home Medications Home Medications Medication Instructions Recorded Confirmed Type atorvastatin 10 mg PO HS 10/24/18 11/29/19 History levothyroxine 25 mcg PO QAM 10/24/18 11/29/19 History levothyroxine 200 mcg PO QAM 10/24/18 11/29/19 History metoprolol succinate 25 mg PO QAM 10/24/18 11/29/19 History Lantus Solostar U-100 Insulin 68 unit SUBCUT HS 12/08/18 11/29/19 History pantoprazole 40 mg tablet,delayed 40 mg PO BID 02/11/19 11/29/19 History release gabapentin 100 mg PO TID 04/14/19 11/29/19 History fluoxetine 10 mg PO DAILY 11/29/19 11/29/19 History fluoxetine 20 mg PO DAILY 11/29/19 11/29/19 History hydralazine 50 mg PO QID 11/29/19 11/29/19 History insulin aspart U-100 [Novolog 1 sliding scale dose SUBCUT TID 11/29/19 11/29/19 History U-100 Insulin aspart] linaclotide [Linzess] 145 mcg PO DAILY 11/29/19 11/29/19 History prazosin 1 mg PO TID 11/29/19 11/29/19 History Allergies Allergy/AdvReac Type Severity Reaction Status Date / Time pollen extracts Allergy Mild sneezing/watery Verified 05/26/19 00:14 eyes Past Med/Surg History Medical History Anemia Chronic diastolic heart failure (Chronic) COPD (chronic obstructive pulmonary disease) (Chronic) inhalers daily/prn and oxygen 2L n/c Diabetes mellitus, type 2 Elevated troponin I level Graves disease History of gastric ulcer Hyperlipidemia Hypertension (Chronic) Hypothyroidism (Chronic) Hypoxia Left bundle branch block chronic Morbid obesity with BMI of 50.0-59.9, adult Obesity hypoventilation syndrome (Chronic) On home oxygen therapy 2L N/C at all times SAFIA (obstructive sleep apnea) (Chronic) cpap--2L oxygen Surgical History History of angioplasty 2003 @ [facility] [place] History of colonoscopy History of endoscopic sinus surgery History of esophagogastroduodenoscopy (EGD) History of tooth extraction History of wisdom tooth extraction S/P correction of deviated nasal septum Family History Mother Diabetes Hypertension Brother , dies at 44 yo from [place] Heart disease Other No family history of adverse response to anesthesia Social History Preferred Language: [place]ese Communication Ability: Effective [place] [employer] Inspector Required: No Beliefs That Will Affect Care: None marital status: single Current Living Situation: Rehab Current Living Situation Comment: Lives with brother current occupational status: unemployed Feels Safe at Home: Yes Smoking Status: Former smoker Cigarettes Per Day: 10 ; Second Hand Exposure: Yes (family members smoked) ; Hx Alcohol Use: No Hx Substance Use: No Review of Systems A total of 10 systems reviewed and were otherwise negative Physical Exam Vital Signs Vital Signs - 24 hr 11/29/19 20:22 11/29/19 20:26 11/29/19 20:40 Temperature 36.8 C Temperature Source Oral Pulse Rate 58 L Pulse Rate [Apical] Respiratory Rate 18 Respiratory Effort / Characteristics Non-Labored Respiratory Depth Normal Blood Pressure 112/51 L Blood Pressure [Right Arm] Blood Pressure Mean 71 Blood Pressure Mean [Right Arm] Blood Pressure Position [Right Arm] Pulse Oximetry 95 95 Oxygen Delivery Method Room Air Nasal Cannula Nasal Cannula Oxygen Flow Rate 3 3 3 Fraction of Inspired Oxygen SaO2/FiO2 Ratio Sepsis Recent Fever Within 48 Hours No Sepsis New/Unexplained Change in Mental Status No Sepsis Action Taken by Nursing No Action Required 11/29/19 20:54 11/29/19 21:10 11/29/19 23:00 Temperature Temperature Source Pulse Rate 59 L Pulse Rate [Apical] 59 L 60 58 L Respiratory Rate 18 14 16 Respiratory Effort / Characteristics Non-Labored Spontaneous Respiratory Depth Normal Blood Pressure Blood Pressure [Right Arm] 129/54 L 117/65 Blood Pressure Mean Blood Pressure Mean [Right Arm] 79 82 Blood Pressure Position [Right Arm] Standing Pulse Oximetry 99 95 95 Oxygen Delivery Method Nasal Cannula BiPAP BiPAP Oxygen Flow Rate 3 Fraction of Inspired Oxygen 35 35 SaO2/FiO2 Ratio 271 Sepsis Recent Fever Within 48 Hours Sepsis New/Unexplained Change in Mental Status Sepsis Action Taken by Nursing Physical Exam EYES: Conjunctivae and EOM are normal. Pupils are equal, round, and reactive to light. Right eye exhibits no discharge. Left eye exhibits no discharge. No scleral icterus. NECK: Supple CV: Normal rate, regular rhythm, normal heart sounds and intact distal pulses. There is no peripheral edema. Palpable radial pulses bue. PULM/CHEST: Expiratory wheezes bilaterally. - Chest Wall: He exhibits no tenderness. ABD: Morbidly obese. The abdomen is soft. NEURO: Per nursing staff the patient was talking to someone who is not in the room at this time. He is when asked alert and oriented to head to place, person, and time. He has normal strength. No cranial nerve deficit or sensory deficit. Coordination and gait normal. GCS eye subscore is 4. GCS verbal subscore is 5. GCS motor subscore is 6. Cerebellar tests wnl. Course Course 2039: The patient was evaluated in room B7. A complete history and physical exam was performed. On assessment the patient is having diffuse expiratory wheezes. He does have a history of CHF, acute respiratory failure with hypercarbia, and COPD. Given this and the reported history that the patient was having hallucinations, the patient was started on BiPAP for potential elevated CO2 levels. Hour-long DuoNeb was also ordered for the patient. Cardiac monitoring: An order was placed for continuous cardiac monitoring. The monitor shows a rate of 75 with sign rhythm 2054: X-ray reviewed by me showed that the patient has cardiomegaly with fluid overloaded. It could be that the patient's dyspnea is due to CHF. The hour- long DuoNeb was stopped and patient was only given 1 DuoNeb treatment. 2134: On reassessment, the patient reports he feels it is easier to breathe while being on the BiPAP. He is alert and oriented x3. His blood gas shows a PCO2 of 61 and a venous pH of 7.33. proBNP is elevated. We will continue the BiPAP at this time. Patient will be given Lasix 40 mg for CHF. 2229: Vital signs stable on BiPAP. Patient remains alert and oriented x3. He reports his breathing is better. [facility]. Dr. Ingram agreed to admission. Administered Medications Discontinued Medications Albuterol (Duoneb) 12 ml NEB ONE ONE Stop: 11/29/19 20:42 Last Admin: 11/29/19 20:51 Dose: 12 ml Documented by: [id number] Furosemide (Lasix) 40 mg IV NOW STA Stop: 11/29/19 21:28 Last Admin: 11/29/19 21:42 Dose: 40 mg Documented by: [id number] Critical Care Time Critical Care Time: Yes Total Critical Care Time: 65 I have personally spent greater than 65 minutes of critical care time in the direct management of this patient. This includes bedside care, interpretation of diagnostic studies, and testing, discussion with consultants, patient, and family members, and other required patient management activities. This 65 minutes is in excess of all separately billable procedures. Medical Decision Making Laboratory Data Result diagrams: 11/29/19 20:40 11/29/19 20:40 Lab Results 11/29/19 11/29/19 11/29/19 Range/Units 20:40 20:40 20:40 WBC 5.35 (4.8-10.8) K/uL RBC 3.69 L (4.7-6.1) M/uL Hgb 10.4 L (14.0-18.0) g/dL POC Hgb (14.0-18.0) g/dl Hct 35.1 L (42-52) % POC Hct (42-52) % MCV 95.1 (80-100) fL MCH 28.2 (25-34) pg MCHC 29.6 L (32-36) g/dL RDW Std Deviation 51.8 H (36.4-46.3) fL RDW Coeff of Neena 14.9 H (11.5-14.5) % Plt Count 173 (130-400) K/uL MPV 9.4 (7.4-10.4) fL Immature Gran % (Auto) 0.2 % Neut % (Auto) 60.4 % Lymph % (Auto) 27.5 % Brantley % (Auto) 10.1 % Eos % (Auto) 0.9 % Baso % (Auto) 0.9 % Immature Gran # (Auto) 0.01 (0.00-0.02) K/uL Neut # (Auto) 3.23 (1.4-6.5) K/uL Lymph # (Auto) 1.47 (1.2-3.4) K/uL Brantley # (Auto) 0.54 (0.11-0.59) K/uL Eos # (Auto) 0.05 (0-0.5) K/uL Baso # (Auto) 0.05 (0-0.2) K/uL PT 12.0 (9.0-12.0) Seconds INR 1.1 (0.9-1.1) APTT 28.1 (21.0-31.0) Seconds PTT Ratio 1.0 VBG pH (7.36-7.41) VBG pCO2 (38-50) mmHg VBG pO2 mmHg VBG HCO3 mmol/L VBG O2 Saturation % VBG Base Excess mEq/L Barometric Pressure mm/Hg POC Sodium (135-144) mmol/L Sodium 139 (136-145) mmol/L POC Potassium (3.3-5.0) mmol/L Potassium 4.7 (3.5-5.1) mmol/L POC Chloride (101-112) mmol/L Chloride 106 (98-107) mmol/L Carbon Dioxide 32 (21-32) mmol/L POC Total CO2 (24-31) mmol/L Anion Gap 2.0 L (3-11) POC Anion Gap (16-25) mmol/L POC BUN (7-18) mg/dl BUN 20 H (7-18) mg/dl Creatinine 1.12 (0.6-1.4) mg/dl POC Creatinine (0.6-1.3) mg/dl Est Cr Clr Drug Dosing 110.5 ml/min Est GFR ( Amer) 79.5 Est GFR (Non-Af Amer) 68.6 BUN/Creatinine Ratio 17.9 (10-20) Glucose 135 H (70-99) mg/dl POC Glucose (70-99) mg/dl POC Glucose (other) (70-99) mg/dl Calcium 8.4 L (8.5-10.1) mg/dl POC Ioniz Calcium Pam (1.12-1.32) mmol/l Magnesium 1.8 (1.8-2.4) mg/dl Total Bilirubin 0.2 (0.2-1) mg/dl AST 35 (15-37) U/L ALT 23 (12-78) U/L Alkaline Phosphatase 123 H (45-117) U/L Troponin I 0.032 (0-0.045) ng/ml NT-Pro-B Natriuret Pep 6649 H (0-900) pg/ml Total Protein 7.0 (6.4-8.2) gm/dl Albumin 2.1 L (3.4-5.0) gm/dl Globulin 4.9 H (2.5-4.0) gm/dl Albumin/Globulin Ratio 0.4 L (0.9-2) 11/29/19 11/29/19 11/29/19 Range/Units 20:45 20:49 21:00 WBC (4.8-10.8) K/uL RBC (4.7-6.1) M/uL Hgb (14.0-18.0) g/dL POC Hgb 10.9 L (14.0-18.0) g/dl Hct (42-52) % POC Hct 32 L (42-52) % MCV (80-100) fL MCH (25-34) pg MCHC (32-36) g/dL RDW Std Deviation (36.4-46.3) fL RDW Coeff of Neena (11.5-14.5) % Plt Count (130-400) K/uL MPV (7.4-10.4) fL Immature Gran % (Auto) % Neut % (Auto) % Lymph % (Auto) % Brantley % (Auto) % Eos % (Auto) % Baso % (Auto) % Immature Gran # (Auto) (0.00-0.02) K/uL Neut # (Auto) (1.4-6.5) K/uL Lymph # (Auto) (1.2-3.4) K/uL Brantley # (Auto) (0.11-0.59) K/uL Eos # (Auto) (0-0.5) K/uL Baso # (Auto) (0-0.2) K/uL PT (9.0-12.0) Seconds INR (0.9-1.1) APTT (21.0-31.0) Seconds PTT Ratio VBG pH 7.33 L (7.36-7.41) VBG pCO2 61 H (38-50) mmHg VBG pO2 60 mmHg VBG HCO3 31 mmol/L VBG O2 Saturation 89.3 % VBG Base Excess 4.3 mEq/L Barometric Pressure 737.6 mm/Hg POC Sodium 140 (135-144) mmol/L Sodium (136-145) mmol/L POC Potassium 4.8 (3.3-5.0) mmol/L Potassium (3.5-5.1) mmol/L POC Chloride 101 (101-112) mmol/L Chloride (98-107) mmol/L Carbon Dioxide (21-32) mmol/L POC Total CO2 32 H (24-31) mmol/L Anion Gap (3-11) POC Anion Gap 13.0 L (16-25) mmol/L POC BUN 22 H (7-18) mg/dl BUN (7-18) mg/dl Creatinine (0.6-1.4) mg/dl POC Creatinine 1.1 (0.6-1.3) mg/dl Est Cr Clr Drug Dosing ml/min Est GFR ( Amer) Est GFR (Non-Af Amer) BUN/Creatinine Ratio (10-20) Glucose (70-99) mg/dl POC Glucose 141 H (70-99) mg/dl POC Glucose (other) 141 H (70-99) mg/dl Calcium (8.5-10.1) mg/dl POC Ioniz Calcium Pam 1.19 (1.12-1.32) mmol/l Magnesium (1.8-2.4) mg/dl Total Bilirubin (0.2-1) mg/dl AST (15-37) U/L ALT (12-78) U/L Alkaline Phosphatase (45-117) U/L Troponin I (0-0.045) ng/ml NT-Pro-B Natriuret Pep (0-900) pg/ml Total Protein (6.4-8.2) gm/dl Albumin (3.4-5.0) gm/dl Globulin (2.5-4.0) gm/dl Albumin/Globulin Ratio (0.9-2) Imaging Data My Impression: Chest x-ray: Airway clear. No pneumothorax. No consolidation. cardiomegaly with cephalization and fluid overloaded. No free air under the diaphragm. No fractures of the skeletal structures. Radiologist's Impression: PreliminaryFindingsOnly See Final Report For Complete Findings CT HEAD: Motion artifact. No intracranial hemorrhage or acute cortical infarct. No hydrocephalus. No fracture. Radiologist: Mg Yost MD Study ready at 22:07 and initial results transmitted at 22:09 ECG Data Indication: + SOB/dyspnea Rate (beats per minute): 73 Rhythm: + normal sinus ECG Intervals/blocks: + Left bundle branch block (QRS 164. Scar Bosa negative), + Prolonged QT (519) and + Normal PA Additional Comments: EKG shows sinus rhythm with rate of 73. PA interval 160. QRS 164. QTc 519. Left bundle branch block present. SgarBosa negative. No ectopy. [facility] Narrative 2039: The patient was evaluated in room B7. A complete history and physical exam was performed. On assessment the patient is having diffuse expiratory wheezes. He does have a history of CHF, acute respiratory failure with hypercarbia, and COPD. Given this and the reported history that the patient was having hallucinations, the patient was started on BiPAP for potential elevated CO2 levels. Hour-long DuoNeb was also ordered for the patient. Cardiac monitoring: An order was placed for continuous cardiac monitoring. The monitor shows a rate of 75 with sign rhythm 2054: X-ray reviewed by me showed that the patient has cardiomegaly with fluid overloaded. It could be that the patient's dyspnea is due to CHF. The hour- long DuoNeb was stopped and patient was only given 1 DuoNeb treatment. 2134: On reassessment, the patient reports he feels it is easier to breathe w hile being on the BiPAP. He is alert and oriented x3. His blood gas shows a PCO2 of 61 and a venous pH of 7.33. proBNP is elevated. We will continue the BiPAP at this time. Patient will be given Lasix 40 mg for CHF. 2229: Vital signs stable on BiPAP. Patient remains alert and oriented x3. He reports his breathing is better. [facility]. Dr. Ingram agreed to admission. Impression & Plan CHF exacerbation Discharge Plan Visit Data Chief Complaint: Shortness of Breath/Dyspnea Stated Complaint: sob ED Provider: Shilo Uriostegui Discharge Problem: CHF exacerbation Patient Disposition: Admitted As Inpatient Forms Stand Alone Forms: [facility] Prescriptions Prescriptions: No Action pantoprazole 40 mg tablet,delayed release (DR/EC) 40 mg PO BID RF: 0 atorvastatin 10 mg tablet 10 mg PO HS RF: 0 levothyroxine 25 mcg tablet 25 mcg PO QAM RF: 0 levothyroxine 200 mcg tablet 200 mcg PO QAM RF: 0 metoprolol succinate 25 mg tablet extended release 24 hr 25 mg PO QAM RF: 0 gabapentin 100 mg Capsule 100 mg PO TID RF: 0 prazosin 1 mg Capsule 1 mg PO TID RF: 0 fluoxetine 10 mg Tablet 10 mg PO DAILY RF: 0 insulin aspart U-100 [Novolog U-100 Insulin aspart] 100 unit/mL Solution 1 sliding scale dose SUBCUT TID RF: 0 fluoxetine 20 mg Tablet 20 mg PO DAILY RF: 0 hydralazine 50 mg Tablet 50 mg PO QID RF: 0 Linzess 145 mcg Capsule 145 mcg PO DAILY RF: 0 Lantus Solostar U-100 Insulin 100 unit/mL (3 mL) Insulin Pen 68 unit SUBCUT HS RF: 0 Referrals Referrals: Kanu Gould [Primary Care Provider] - Discharge Problem: CHF exacerbation Qualifiers: Heart failure type: unspecified Qualified Code(s): I50.9 - Heart failure, unspecified
[2019-11-30] MEDS ORDERED: ALBUTEROL HFA 8 GM INHALER INH PRN (01:28)
[2019-11-30] MEDS ORDERED: ACETAMINOPHEN 325 MG TAB PO PRN (01:28)
[2019-11-30] MEDS ORDERED: NITROGLYCERIN SL 0.4 MG/TAB TAB SL PRN (01:28)
[2019-11-30] MEDS ORDERED: ONDANSETRON INJ 2 MG/ML 2 ML VIAL IV PRN (01:28)
--- NOTE | 2019-11-30 03:38 | History and Physical Report ---
DATE OF ADMISSION: 11/30/2019 CHIEF COMPLAINT: Shortness of breath, confusion, and hallucinations at home. HISTORY OF PRESENT ILLNESS: This is a 63-year-old male with past medical history significant for type 2 diabetes, hypothyroidism, COPD, morbid obesity, obstructive sleep apnea, chronic diastolic failure and ambulatory dysfunction, who was brought in because of confusion and shortness of breath at home. The patient lives at [place] with his brother. The patient was here in May 2019 with episodes of falling at home and was found at that time to also have acute respiratory failure secondary to COPD, sleep apnea, CHF, and was discharged to [facility] [place]. As per brother, he stayed at [facility] [place] for about 4 months and was discharged about 1-1/2 months ago[address] [facility] [place], he was on BiPAP, but when he came back home, he was not on any BiPAP or CPAP and he is currently nonambulatory. He uses a bed frey and diapers. Since last 1 day, his appetite has been down and today he was confused, hallucinating, seemed short of breath and he was brought in here and he was placed on BiPAP. He is hemodynamically stable. Venous blood gas was okay. Rest of the labs are unremarkable except for BNP being 6000. Chest x-ray showed bilateral pulmonary congestion. CT of the head, preliminary report, no acute findings. The patient is somewhat drowsy but arousable. He is alert and oriented to name and place. Some slight confusion with the dates. He knows that it is 2019, but he thought it is October. He does not know why he was brought in here. Currently, denies any shortness of breath. As per the brother, he is having some mild cough. Denies any headache, denies any chest pain, denies abdominal pain. He says his bowel and bladder movements are okay. Denies any blood in stools or denies any burning micturition. Denies any fevers. ALLERGIES: POLLEN EXTRACTS. PAST MEDICAL HISTORY: As mentioned above. PAST SURGICAL HISTORY: EGDs, deviated septum repair. MEDICATIONS: The patient is on albuterol 2 puffs inhalation q.i.d. p.r.n., atorvastatin 10 mg p.o. at bedtime, supposed to be on Breo Ellipta 1 puff inhalation daily, fluoxetine 30 mg p.o. daily, Lasix 80 mg p.o. b.i.d., gabapentin 800 mg p.o. t.i.d., hydralazine 50 mg p.o. q.i.d., Lantus 60 units at bedtime, NovoLog sliding scale, levothyroxine 225 mcg daily, Linzess 145 mcg p.o. daily, metoprolol succinate 25 mg p.o. a.m., Protonix 40 mg p.o. b.i.d., question of being on prazosin 1 mg p.o. t.i.d. FAMILY HISTORY: Significant for father had asthma, at age of 69, father also had hypertension, COPD; mother has diabetes, hypertension; brother had cancer. SOCIAL HISTORY: Single, currently living with his brother. Smokes an average of 1.5 packs a day for 48 years. No alcohol use, no drug use. REVIEW OF SYSTEMS: As per HPI. Rest of the review of systems negative. PHYSICAL EXAMINATION: GENERAL: The patient is morbidly obese. VITAL SIGNS: Temperature 36.8, pulse 58, respiratory rate 16, blood pressure 117/65, oxygen 95% on BiPAP. HEENT: No pallor, no icterus. Pupils equal, round, reactive to light. NECK: No JVD, no neck masses seen. CARDIOVASCULAR: S1, S2 heard. Regular rate and rhythm, no murmur, no gallop. RESPIRATORY SYSTEM: Normal AP diameter. No accessory muscle use. Mild bibasilar crackles. No wheezing appreciated. ABDOMEN: Soft, bowel sounds present. Nontender. No guarding, no rigidity. CENTRAL NERVOUS SYSTEM: Alert and oriented to name and place. Knows this is 2019, but thinks this is October. Obeys simple commands. Moves extremities. EXTREMITIES: Bilateral lower extremity chronic skin changes and bilateral lower extremity edema present. SKIN: Dry. LABORATORY DATA: WBC 5.3, hemoglobin 10.4, hematocrit 35.1, platelets 173. PT 12, INR 1.1, APTT 28.1. Venous blood gas, pH of 7.3, pCO2 of 61, pO2 of 60, bicarbonate 31, oxygen saturation 89%. Sodium 139, potassium 4.7, chloride 106, bicarbonate 32, BUN 20, creatinine 1.1, serum glucose 135, calcium 8.4, magnesium 1.8, total bilirubin 0.2, AST 35, ALT 23, alkaline phosphatase 123. Troponin I of 0.032. BNP 6649. IMAGING DATA: Chest x-ray, bilateral pulmonary congestion. CT of the head, no acute findings. EKG: Sinus rhythm with marked sinus arrhythmia at a rate of 73, left bundle branch block. ASSESSMENT AND PLAN: This is a 63-year-old male who presents with some confusion, hallucination, and shortness of breath at home and found to be in acute congestive heart failure. 1. [id number] diastolic congestive heart failure. Encephalopathy. As per the [facility], he was supposed to be on 80 mg Lasix b.i.d. Lasix was not present on the initial medication list, but when called his brother, says he recently brought the water pills. He received IV Lasix 40 in the ER. We will place him on IV Lasix 40 b.i.d. We will get echocardiogram. Consult cardiology for further recommendation. Continue his home Toprol-XL, hydralazine. As per the [facility], he should also be on isosorbide dinitrate 40 mg t.i.d., but as per the brother, this medication is not in the medication list at home. We will await Cardiology input, adjust his medications.Currently mental status seems to be improving. 2. Obstructive sleep apnea, obesity hypoventilation syndrome. He was on BiPAP at [facility] [place], but since he got home not on any BiPAP. Possibly could be a cause of his present presentation. Social service to help with BiPAP at discharge. Continue BiPAP for now. We will follow the repeat ABG in the a.m. 3. History of chronic obstructive pulmonary disease. As per brother, does not use any inhalers at home. Will continue his albuterol p.r.n. for now. 4. Morbid obesity, needs counseling. 5. Type 2 diabetes. Will continue his home insulin Glargine and placed on insulin sliding scale. Monitor the blood sugars. 6. Hyperlipidemia. Continue statin. 7. Gastroesophageal reflux disease, continue Protonix. 8. Depression. Continue Prozac. 9. Hypothyroidism. Continue Synthroid. 10. Hypertension. Continue his Toprol-XL. We will monitor the blood pressure. 11. Deep venous thrombosis prophylaxis. Heparin subQ. 12. Disposition: Closely monitor in the tele floor. As per the brother, the patient has recently filled his living will and but he needs to talk to his daughter about it. For now, we will keep him full code. PT and OT prior to discharge. Social service to help with discharge planning. RON
[2019-11-30 05:48] LABS: Basophils # (auto) 0.06 K/uL (0-0.2); Basophils % (auto) 1.2 %; Eosinophils # (auto) 0.11 K/uL (0-0.5); Eosinophils % (auto) 2.1 %; Hematocrit (blood only) 34.6 % (42-52); Hemoglobin 10.4 g/dL (14.0-18.0); Immature Granulocytes # (auto) 0.01 K/uL (0.00-0.02); Immature Granulocytes % (auto) 0.2 %; Lymphocytes # (auto) 1.68 K/uL (1.2-3.4); Lymphocytes % (auto) 32.4 %; Mean Corpuscular Hemoglobin 28.7 pg (25-34); Mean Corpuscular Hgb Conc 30.1 g/dL (32-36); Mean Corpuscular Volume 95.3 fL (80-100); Mean Platelet Volume 9.1 fL (7.4-10.4); Monocytes # (auto) 0.53 K/uL (0.11-0.59); Monocytes % (auto) 10.2 %; Neutrophils % (auto) 53.9 %; Platelet Count 158 K/uL (130-400); RDW Coefficient of Variation 14.9 % (11.5-14.5); RDW Standard Deviation 51.5 fL (36.4-46.3); Red Blood Count 3.63 M/uL (4.7-6.1); White Blood Count 5.19 K/uL (4.8-10.8)
[2019-11-30 05:50] LABS: Base Excess ABG 5.1 mEq/L (-9-1.8); HCO3 ABG 32 mmol/L (19-24); Oxygen Saturation ABG 95.3 % (90-95); PCO2 ABG 60 mmHg (35-46); PO2 ABG 79 mmHg (80-95); pH ABG 7.35 (7.35-7.45)
[2019-11-30 05:51] LABS: Allen Test Pos (Pos)
[2019-11-30] MEDS: HEPARIN SOD 5,000 UNIT/0.5 ML VIAL SQ SCH ×3 (06:00→20:50)
[2019-11-30] MEDS: LEVOTHYROXINE SODIUM 200 MCG TABLET PO SCH (06:01)
[2019-11-30] MEDS: LEVOTHYROXINE SODIUM 25 MCG TABLET PO SCH (06:01)
[2019-11-30 06:05] LABS: BUN Creatinine Ratio 18.8 (10-20); Calcium 8.4 mg/dl (8.5-10.1); Creatinine Clr Calc Pharmacy 116.8 ml/min; Est GFR (African American) 84.9; Est GFR (Non-African American) 73.3; Magnesium 1.9 mg/dl (1.8-2.4); Potassium 4.4 mmol/L (3.5-5.1)
[2019-11-30 06:10] LABS: Troponin I 0.029 ng/ml (0-0.045)
--- NOTE | 2019-11-30 08:04 | Ultrasound Report ---
BILATERAL LOWER EXTREMITY VENOUS DOPPLER HISTORY: Acute pain and swelling of the bilateral lower extremities lower extremity edema b/l. poor ambulatory status COMPARISON STUDY: Duplex venous Doppler study 05/26/2019. FINDINGS: There is normal compressibility, flow, and augmentation within the bilateral lower extremit y deep venous systems. 1 6 exam secondary to patient body habitus. IMPRESSION: No DVT within the right or left lower extremity. ACT 112: Negative or not required by law. Electronically signed by: Brenton Aponte M.D. 11/30/2019 8:03 AM
--- NOTE | 2019-11-30 08:06 | XRay Report ---
XR chest 1V portable HISTORY: 63 years-old Male SOB acute shortness of breath COMPARISON: Chest radiograph 05/25/2019 TECHNIQUE: Portable AP view of the chest FINDINGS: Cardiac silhouette is enlarged. Pulmonary vascular congestion with interstitial opacities. No pneumot horax. Small pleural effusions. Superimposed right greater than left airspace opacities. Bones appear grossly intact. Lateral right costophrenic angle is partially excluded from the [id number]. IMPRESSION: 1. Cardiomegaly with right greater than left mixed interstitial and alveolar opacities suggestive of pulmonary edema. Superimposed pneumonitis be difficult to exclude. 2. Small pleural effusions. ACT 112: Negative or not required by law. The above report was generated using voice recognition software. It may contain grammatical, syntax o r spelling errors. Electronically signed by: Brenton Aponte M.D. 11/30/2019 8:05 AM
[2019-11-30] MEDS: FUROSEMIDE 40 MG in SYRINGE 0 ML IV SCH ×2 (08:18→17:26)
[2019-11-30] MEDS: HydrALAZINE TAB 50 MG TAB PO SCH ×4 (08:18→20:47)
[2019-11-30] MEDS: PANTOprazole 40 MG TAB PO SCH ×2 (08:19→20:49)
[2019-11-30] MEDS: FLUOXETINE HCL 10 MG CAP PO SCH (08:19)
[2019-11-30] MEDS: PRAZOSIN HCL 1 MG CAP PO SCH ×3 (08:19→20:49)
[2019-11-30] MEDS: LINACLOTIDE 72 MCG CAPSULE PO SCH (08:20)
[2019-11-30] MEDS: GABAPENTIN 100 MG CAP PO SCH ×3 (08:20→20:48)
[2019-11-30] MEDS: METOPROLOL SUCC 25MG EXT REL TAB PO SCH (08:20)
[2019-11-30] MEDS: FLUOXETINE HCL 20 MG CAP PO SCH (08:20)
[2019-11-30] MEDS: INSULIN ASPART 100 UNITS/ML 3 ML PEN SC SCH ×4 (08:21→20:51)
[2019-11-30] MEDS ORDERED: FUROSEMIDE 40 MG/4 ML VIAL IV SCH (09:00)
--- NOTE | 2019-11-30 09:16 | CT Scan Report ---
CT OF THE HEAD WITHOUT CONTRAST CLINICAL HISTORY: Altered mental status. COMPARISON STUDY: Head CT December 08, 2018. CT DOSE: 2066.54 mGy.cm TECHNIQUE: Helical axial images of the head were obtained without IV contrast. Automated exposure con trol was utilized for the study. A dose lowering technique was utilized adhering to the principles o f ALARA. FINDINGS: This exam is mildly compromised by motion artifact. No acute intracranial hemorrhage, midli ne shift or mass effect is present. The ventricular system is unremarkable. The basilar cisterns are patent. No extra-axial collections are present. There are no findings to suggest acute dural sinus th rombosis or acute territorial infarct. No significant calvarial abnormalities are present. Postoperat rosangela findings within the sinuses are noted. There is minimal sinus mucosal thickening. IMPRESSION: Exam mildly compromised by motion artifact. No acute intracranial findings. ACT 112: Negative or not required by law. Electronically signed by: Remington Bazan M.D. 11/30/2019 9:15 AM
--- NOTE | 2019-11-30 10:31 | Electrocardiogram Report ---
Test Reason : Blood Pressure : / mmHG Vent. Rate : 073 BPM Atrial Rate : 083 BPM P-R Int : 160 ms QRS Dur : 164 ms QT Int : 472 ms P-R-T Axes : 000 -11 -55 degrees QTc Int : 519 ms Sinus rhythm with marked sinus arrhythmia Left bundle branch block Abnormal ECG When compared with ECG of 27-MAY-2019 06:39, No significant change was found Confirmed by Jarad Marrero ([id number]) on 11/30/2019 10:31:18 AM Referred By: REFERRED SELF Confirmed By:Jarad Marrero
--- NOTE | 2019-11-30 12:55 | Hospitalist Progress Note ---
Date of Service December 01, 2019 Assessment & Plan (1) Acute on chronic diastolic heart failure: He is morbidly obese with significant multiple comorbid medical conditions was admitted with increasing shortness of breath and confusion Has acute on chronic diastolic heart failure Has been getting intravenous Lasix for diuresis and feeling much better since admission Echo has been done, results are pending Appreciate cardiology evaluation and recommendation Has been diuresing enough We will continue current dose of Lasix (2) SAFIA (obstructive sleep apnea): History of SAFIA and is supposed to have sleep study as an outpatient Will need to have a sleep study as an outpatient as soon as possible We will get nocturnal pulse oximetry tonight Nocturnal pulse oximetry did show significant desaturation Will need to continue oxygen at nighttime Pulmonary consultation for further management of COPD//sleep apnea (3) COPD (chronic obstructive pulmonary disease): No acute exacerbation at this time We will continue his usual medications (4) Acute confusion: Has had confusion on admission Likely secondary to acute on chronic diastolic heart failure and likely complica melvin by hypoxemia Confusion is resolved but to get gets acute confusion, drowsiness and goes to sleep after a short conversation (5) Diabetes: We will continue current medication Exercise (6) Morbid obesity: DVT prophylaxis Heparin subcu CODE STATUS Full Admission and Anticipated Discharge Date Admission Date: November 29, 2019 Subjective The patient was seen and examined in the telemetry unit He was admitted with acute confusion and shortness of breath at rest He was noted to have acute on chronic diastolic heart failure Has been feeling much better since admission Denies any shortness of breath at rest 12/01/2019 The patient was seen and examined in telemetry unit He has been feeling much better as of this morning Remains drowsy and going into sleep after a short conversation Denies any chest pain and/or palpitation. No shortness of breath at rest Review of Systems Review of Systems: All systems reviewed and are unremarkable except as noted below Respiratory: no dyspnea (No dyspnea at rest) Cardiovascular: no chest pain and no palpitations Neurologic: Alert, awake but drowsy and goes to sleep after a short conversation Physical Exam Physical Exam: Lying in bed comfortably but drowsy and lethargic Constitutional: well developed, well nourished, + ill appearing and average body habitus; no acute distress Eyes: PERRL, conjunctivae normal, anicteric sclerae ENMT: external ear and nose normal, oropharynx normal Neck: trachea midline, no thyromegaly Respiratory: normal respiratory effort; no respiratory distress Auscultation: + diminished lung sounds (Continue to take chest wall) and + crackles (Minimal bibasilar crackles); no wheezes Cardiovascular: Rate/Rhythm: regular rate and regular rhythm Heart Sounds: no murmur Gastrointestinal (Abdomen): Inspection/Auscultation: abdomen normal to inspection, + abdomen distended and normal bowel sounds Percussion/Palpation: abdomen soft; abdomen nontender Musculoskeletal: No acute arthritis in any joints Neurologic: moves all extremities; no focal motor deficits Alert, awake with drowsiness Lymphatic: no cervical or axillary lymphadenopathy Results & Data [facility] Vital Signs (Past 12 Hours) Vital Signs Temp Pulse Pulse Resp BP BP Pulse Ox 11/30/19 11:14 36.7 C 60 20 167/61 H 98 11/30/19 07:46 36.8 C 51 L 24 115/75 93 11/30/19 07:16 57 L 11/30/19 05:34 37.0 C 54 L 20 158/71 H 95 11/30/19 03:25 52 L 15 98 11/30/19 01:20 36.5 C 60 20 114/64 96 11/30/19 01:16 60 18 98 11/30/19 01:15 64 18 133/65 95 11/30/19 01:[address] [facility] 12/01/19 07:18 Sodium 139 Potassium 3.8 Chloride 103 Carbon Dioxide 32 BUN 19 H Creatinine 1.06 Glucose 40 L* Calcium 8.4 L Medications Administered Current Inpatient Medications Acetaminophen (Tylenol) 650 mg PO Q4H PRN PRN Reason: Pain or Fever Stop: 12/30/19 01:27 Albuterol (Ventolin Hfa) 2 puffs INH QID PRN PRN Reason: Shortness Of Breath Or Wheezing Stop: 12/30/19 01:27 Atorvastatin Calcium (Lipitor) 10 mg PO HS [facility] Stop: 12/30/19 20:59 Fluoxetine HCl (Prozac) 10 mg PO DAILY CAROL ANN Stop: 12/30/19 08:59 Last Admin: 11/30/19 08:19 Dose: 10 mg Documented by: Fluoxetine HCl (Prozac) 20 mg PO DAILY CAROL ANN Stop: 12/30/19 08:59 Last Admin: 11/30/19 08:20 Dose: 20 mg Documented by: Gabapentin (Neurontin) 100 mg PO TID [facility] Stop: 12/30/19 08:59 Last Admin: 11/30/19 08:20 Dose: 100 mg Documented by: Heparin Sodium (Porcine) (Heparin Sodium (Porcine)) 5,000 units SQ Q8 [facility] Stop: 12/30/19 05:59 Last Admin: 11/30/19 06:00 Dose: 5,000 units Documented by: Hydralazine HCl (Apresoline) 50 mg PO QID [facility] Stop: 12/30/19 08:59 Last Admin: 11/30/19 12:08 Dose: 50 mg Documented by: Furosemide 40 mg/ Syringe 4 mls @ 4 mls/min IV BID17 [facility] Stop: 12/30/19 08:59 Last Admin: 11/30/19 08:18 Dose: 4 mls/min Documented by: Insulin Aspart (Novolog Flexpen) 0 units SC ACHS [facility] Stop: 12/30/19 07:29 Last Admin: 11/30/19 12:07 Dose: 10 units Documented by: Insulin Glargine (Lantus Solostar Pen) 68 units SQ HS [facility] Stop: 12/30/19 20:59 Levothyroxine Sodium (Synthroid) 25 mcg PO DAILYBB [facility] Stop: 12/30/19 06:29 Last Admin: 11/30/19 06:01 Dose: 25 mcg Documented by: Levothyroxine Sodium (Synthroid) 200 mcg PO DAILYBB [facility] Stop: 12/30/19 06:29 Last Admin: 11/30/19 06:01 Dose: 200 mcg Documented by: Linaclotide (Linzess) 144 mcg PO DAILY [facility] Stop: 12/30/19 08:59 Last Admin: 11/30/19 08:20 Dose: 144 mcg Documented by: Metoprolol Succinate (Toprol Xl) 25 mg PO QAM [facility] Stop: 12/30/19 08:59 Last Admin: 11/30/19 08:20 Dose: Not Given Documented by: Nitroglycerin (Nitrostat) 0.4 mg SL UD PRN PRN Reason: Chest Pain Stop: 12/30/19 01:27 Ondansetron HCl (Zofran) 4 mg IV Q6H PRN PRN Reason: Nausea Stop: 12/30/19 01:27 Pantoprazole Sodium (Protonix) 40 mg PO BID [facility] Stop: 12/30/19 08:59 Last Admin: 11/30/19 08:19 Dose: 40 mg Documented by: Prazosin HCl (Prazosin Hcl) 1 mg PO TID [facility] Stop: 12/30/19 08:59 Last Admin: 11/30/19 08:19 Dose: 1 mg Documented by:
--- NOTE | 2019-11-30 14:18 | Cardiology Consultation ---
Date of Consultation November 30, 2019 Assessment & Plan (1) Acute on chronic diastolic heart failure: (2) Acute respiratory failure with hypoxia and hypercarbia: (3) Acute confusion: (4) Morbid obesity: (5) SAFIA (obstructive sleep apnea): (6) COPD (chronic obstructive pulmonary disease): My suspicion is that his hallucinations and confusion were caused by hypoxemia. He was previously on nocturnal BiPAP treatment however has not had any in approximately 1-1/2 months. Physical examination is limited due to body habitus but chest x-ray does show some pulmonary vascular congestion Continue IV diuresis for now I will order a nocturnal pulse ox to be completed this evening along with an A BG. We will ask our pulmonary colleagues to evaluate for possible BiPAP treatment of obstructive sleep apnea after testing completed. I have no doubt this is a significant contributor to his recurrent decompensations and his outpatient testing has been delayed due to the current pandemic. History of Present Illness Reason for Consultation: Dr. Ingram Requesting Physician: CARLOS Attending Physician: David Rebolledo MD History of Present Illness Mr. Douglass is a morbidly obese 63-year-old gentleman who presented to [facility] emergency department on 11/29/2019 with reports of shortness of breath, confusion and hallucinations. He has previously followed with Dr. Suazo of our cardiology practice however has no showed or canceled appointments since 2017. His brother reportedly found him confused and short of breath. Upon arrival to the emergency department he was placed on BiPAP and reportedly became more cognizant. He denied any complaints at that time but chest x-ray did show that he was volume overloaded and he was a little confused. The brother reports that since discharge from her side approximately 6 weeks ago he has not been on nocturnal BiPAP or CPAP as he had been previously and he is currently nonambulatory. He uses bedpan and diapers. His brother states though that he believes he is compliant with his medications but not sure. Allergies Allergy/AdvReac Type Severity Reaction Status Date / Time pollen extracts Allergy Mild sneezing/watery Verified 05/26/19 00:14 eyes Home Medications Home Medications Medication Instructions Recorded Confirmed Type atorvastatin 10 mg PO HS 10/24/18 11/29/19 History levothyroxine 25 mcg PO QAM 10/24/18 11/29/19 History levothyroxine 200 mcg PO QAM 10/24/18 11/29/19 History metoprolol succinate 25 mg PO QAM 10/24/18 11/29/19 History Lantus Solostar U-100 Insulin 68 unit SUBCUT HS 12/08/18 11/29/19 History pantoprazole 40 mg tablet,delayed 40 mg PO BID 02/11/19 11/29/19 History release gabapentin 100 mg PO TID 04/14/19 11/29/19 History Breo Ellipta 1 puff INHALATION DAILY 11/29/19 11/29/19 History albuterol sulfate 2 puff INHALATION QID PRN 11/29/19 11/29/19 History fluoxetine 10 mg PO DAILY 11/29/19 11/29/19 History fluoxetine 20 mg PO DAILY 11/29/19 11/29/19 History furosemide [Lasix] 80 mg PO BID 11/29/19 11/29/19 History hydralazine 50 mg PO QID 11/29/19 11/29/19 History insulin aspart U-100 [Novolog 1 sliding scale dose SUBCUT TID 11/29/19 11/29/19 History U-100 Insulin aspart] linaclotide [Linzess] 145 mcg PO DAILY 11/29/19 11/29/19 History prazosin 1 mg PO TID 11/29/19 11/29/19 History Patient History Medical History Anemia Chronic diastolic heart failure (Chronic) COPD (chronic obstructive pulmonary disease) (Chronic) inhalers daily/prn and oxygen 2L n/c Diabetes mellitus, type 2 Elevated troponin I level Graves disease History of gastric ulcer Hyperlipidemia Hypertension (Chronic) Hypothyroidism (Chronic) Hypoxia Left bundle branch block chronic Morbid obesity with BMI of 50.0-59.9, adult Obesity hypoventilation syndrome (Chronic) On home oxygen therapy 2L N/C at all times SAFIA (obstructive sleep apnea) (Chronic) cpap--2L oxygen Surgical History History of [place]oplasty 2003 [place] [facility] [place] History of colonoscopy History of endoscopic sinus surgery History of esophagogastroduodenoscopy (EGD) History of tooth extraction History of wisdom tooth extraction S/P correction of deviated nasal septum Family History Mother Diabetes Hypertension Brother , dies at 44 yo from [place] Heart disease Other No family history of adverse response to anesthesia Social History Preferred Language: Serbian Communication Ability: Effective 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 Beliefs That Will Affect Care: None marital status: Single Current Living Situation: Other Current Living Situation Comment: with girlfriend current occupational status: unemployed Other Information That Helps Us Care for You: No Feels Safe at Home: Yes Safety Concerns: Feels Safe At This Time Smoking Status: Former smoker Tobacco Type: cigarettes ; Cigarettes Per Day: 60 ; Do You Dip or Chew Tobacco: No ; Second Hand Exposure: No ; Tobacco Cessation Education Requested by Patient: No Hx Alcohol Use: No Hx Substance Use: No Review of Systems Review of Systems: All systems reviewed & are unremarkable except as noted in HPI & below Physical Exam Physical Exam: Physical Exam: General: Awake, alert and oriented x 3. No acute distress. Morbidly obese HEENT: Normocephalic, atraumatic. Pupils equal, round and reactive to light and accommodation. Extraocular muscles are intact. Anicteric sclera. Moist mucous membranes. Neck: No JVD. No bruit. Cardiovascular: Unable to appreciate any heart sounds due to patient's body habitus Pulmonary: Poor breath sounds bilaterally, unable to appreciate any rales rhonchi or wheezing. Abdomen: Bowel sounds x 4, soft. No rebound, guarding or tenderness. No organomegaly. Extremities: No clubbing, cyanosis or edema. +2 pedal pulses bilaterally. Skin: Warm and dry. Results & Data ([facility]) Vital Signs (Past 12 Hours) Vital Signs Temp Pulse Pulse Resp BP Pulse Ox 11/30/19 11:14 36.7 C 60 20 167/61 H 98 11/30/19 07:46 36.8 C 51 L 24 115/75 93 11/30/19 07:16 57 L 11/30/19 05:34 37.0 C 54 L 20 158/71 H 95 11/30/19 03:25 52 L 15 98
[2019-11-30] MEDS: NYSTATIN POWDER 15GM BTL EXT PRN (17:26)
[2019-11-30] MEDS: ATORVASTATIN 10 MG TAB PO SCH (20:47)
[2019-11-30] MEDS ORDERED: INSULIN GLARGINE SOLOSTAR 100 UNITS/ML 3 ML PEN SQ SCH (21:00)
[2019-12-01] MEDS: LEVOTHYROXINE SODIUM 200 MCG TABLET PO SCH (06:13)
[2019-12-01] MEDS: HEPARIN SOD 5,000 UNIT/0.5 ML VIAL SQ SCH ×3 (06:13→20:34)
[2019-12-01] MEDS: LEVOTHYROXINE SODIUM 25 MCG TABLET PO SCH (06:13)
[2019-12-01 06:34] LABS: Estimated Average Glucose 171 mg/dl; Hemoglobin A1C 7.6 % (4.5-5.6)
[2019-12-01] MEDS: CARBOHYDRATES FOR HYPOGLYCEMIA PO PRN ×2 (07:40→07:55)
[2019-12-01] MEDS ORDERED: DEXTROSE 50% 50 ML SYRINGE IV PRN (08:00)
[2019-12-01] MEDS ORDERED: Nursing to Pharmacy Communication SCH (08:00)
[2019-12-01] MEDS ORDERED: GLUCOSE 40% GEL 15 GM TUBE PO PRN (08:00)
[2019-12-01] MEDS ORDERED: GLUCOSE 10 TABS/TUBE PO PRN (08:00)
[2019-12-01] MEDS ORDERED: GLUCAGON FOR INJ 1 MG VIAL IM PRN (08:00)
[2019-12-01 08:05] LABS: BUN Creatinine Ratio 18.1 (10-20); Calcium 8.4 mg/dl (8.5-10.1); Creatinine Clr Calc Pharmacy 116.2 ml/min; Est GFR (African American) 84.9; Est GFR (Non-African American) 73.3; Magnesium 1.7 mg/dl (1.8-2.4); Potassium 3.8 mmol/L (3.5-5.1)
[2019-12-01] MEDS: INSULIN ASPART 100 UNITS/ML 3 ML PEN SC SCH ×4 (08:07→20:31)
[2019-12-01] MEDS: HydrALAZINE TAB 50 MG TAB PO SCH ×4 (08:15→20:29)
[2019-12-01] MEDS: GABAPENTIN 100 MG CAP PO SCH ×3 (08:15→20:31)
[2019-12-01] MEDS: METOPROLOL SUCC 25MG EXT REL TAB PO SCH (08:15)
[2019-12-01] MEDS: LINACLOTIDE 72 MCG CAPSULE PO SCH (08:15)
[2019-12-01] MEDS: FLUOXETINE HCL 20 MG CAP PO SCH (08:16)
[2019-12-01] MEDS: PANTOprazole 40 MG TAB PO SCH ×2 (08:16→20:33)
[2019-12-01] MEDS: PRAZOSIN HCL 1 MG CAP PO SCH ×3 (08:16→20:33)
[2019-12-01] MEDS: FUROSEMIDE 40 MG in SYRINGE 0 ML IV SCH ×2 (09:10→17:21)
[2019-12-01] MEDS: FLUOXETINE HCL 10 MG CAP PO SCH (09:53)
--- NOTE | 2019-12-01 13:05 | Cardiology Progress Note ---
Date of Service December 01, 2019 Assessment & Plan (1) Acute on chronic diastolic heart failure: (2) Acute respiratory failure with hypoxia and hypercarbia: (3) Acute confusion: (4) Morbid obesity: (5) SAFIA (obstructive sleep apnea): (6) COPD (chronic obstructive pulmonary disease): My suspicion is that his hallucinations and confusion were caused by hypoxemia. He was previously on nocturnal BiPAP treatment however has not had any in approximately 1-1/2 months. Physical examination is limited due to body habitus but chest x-ray does show some pulmonary vascular congestion Continue IV diuresis for now Nocturnal pulse ox with O2 last night showed 107 episodes of desaturations. Recommend evaluation by pulmonology for likely restarting nocturnal BiPAP therapy to help prevent further episodes of decompensated right-sided heart failure. Subjective Patient seen and examined, chart reviewed. States he is feeling much better and that shortness of breath is resolved. Denies any chest pain, palpitations, lightheadedness, dizziness or syncope. Has been diuresing well with IV furosemide. Telemetry reviewed: Normal sinus rhythm without arrhythmia. Review of Systems Review of Systems: All systems reviewed & are unremarkable except as noted in HPI & below Physical Exam Physical Exam: General: Awake, alert and oriented x 3. No acute distress. Morbidly obese HEENT: Normocephalic, atraumatic. Pupils equal, round and reactive to light and accommodation. Extraocular muscles are intact. Anicteric sclera. Moist mucous membranes. Neck: No JVD. No bruit. Cardiovascular: Unable to appreciate any heart sounds due to patient's body habitus Pulmonary: Poor breath sounds bilaterally, unable to appreciate any rales rhonchi or wheezing. Abdomen: Bowel sounds x 4, soft. No rebound, guarding or tenderness. No organomegaly. Extremities: No clubbing, cyanosis or edema. +2 pedal pulses bilaterally. Skin: Warm and dry. Results & Data Vital Signs (Past 12 Hours) Vital Signs Temp Pulse Pulse Pulse Resp BP Pulse Ox 12/01/19 12:40 36.5 C 64 19 141/58 H 96 12/01/19 08:02 36.6 C 72 22 162/62 H 95 12/01/19 07:45 64 12/01/19 04:15 37.0 C 64 20 126/57 L 97 12/01/19 04:10 62 12/01/19 01:39 66 Pulse Ox 12/01/19 12:40 12/01/19 08:02 12/01/19 07:45 12/01/19 04:15 12/01/19 04:10 97 12/01/19 01:39 96
--- NOTE | 2019-12-01 16:19 | Pulmonary Consultation ---
Date of Consultation December 01, 2019 Assessment & Plan (1) Acute respiratory failure with hypoxia and hypercarbia: VBG 11/30/2019: 7.3 / on 30% FiO2 Chest x-ray 11/30/2019 personally reviewed: Portable film, increased bilateral vascular markings, bilateral costophrenic and cardiophrenic angles are blunted, increased cardiac silhouette. --Acute on chronic hypoxic and hypercapnic respiratory failure Hypoxia is likely secondary to diastolic CHF exacerbation Hypercapnia is most likely secondary to not using BiPAP while being at home Continue with diuresis as tolerated Continue with BiPAP nightly and PRN shortness of breath Keep O2 saturation between 88 to 92% --COPD Patient is supposed to be on Breo at home Given he has history of COPD, I would rather like the patient to be discharged on Anoro. Patient follows up with Dr. Minesh navarro, he was last seen by Janie Nelson back in January 2019 this is when he was compliant with his BiPAP --SAFIA/OHS Patient was compliant with BiPAP till January 2019, his settings were 20 cm H2O IPAP and 12 cm H2O EPAP It is very eminent that this time he should be discharged with BiPAP because of his underlying SAFIA and OHS or else he will get admitted again and again because of the same reason. I was unable to find previous records of his polysomnography As per the patient it was done approximately 2 years ago. Plan: Social work consult to make sure the patient is discharged on BiPAP 20/12 cm H2O He needs to follow-up with pulmonary after discharge. (2) Acute on chronic diastolic heart failure: (3) SAFIA (obstructive sleep apnea): (4) COPD (chronic obstructive pulmonary disease): History of Present Illness Attending Physician: David Rebolledo MD History of Present Illness 63-year-old male with past medical history of COPD on home O2, SAFIA/OHS used to be on BiPAP at home but not anymore, diastolic CHF was admitted to hospital because of worsening shortness of breath. Patient was in the hospital in May 2019 with similar complaints where he was found to be in diastolic CHF he was diuresed and sent to a rehab he just returned from rehab to home on September 19 and he has not been using BiPAP since then. Patient was drowsy in the ER when he was brought to the hospital. He responded well to BiPAP. At the time of examination today patient is awake alert oriented x3. He was able to give history on his own. Patient denies any fever or chills. States that the shortness of breath is improved since coming to the hospital. Denies any chest pain. No cough. No nausea or vomiting. As per the patient his BiPAP was taken away as it the insurance was not taking for it anymore. On asking if he was using his BiPAP when he had it he said yes. Social history: Greater than [id number] smoking history still smoking 3 to 4 cigarettes a day, social alcohol, denies any illicit drug use Has 9 cats at home. Allergic to dog. Allergies Allergy/AdvReac Type Severity Reaction Status Date / Time pollen extracts Allergy Mild sneezing/watery Verified 05/26/19 00:14 eyes Home Medications Home Medications Medication Instructions Recorded Confirmed Type atorvastatin 10 mg PO HS 10/24/18 11/29/19 History levothyroxine 25 mcg PO QAM 10/24/18 11/29/19 History levothyroxine 200 mcg PO QAM 10/24/18 11/29/19 History metoprolol succinate 25 mg PO QAM 10/24/18 11/29/19 History Lantus Solostar U-100 Insulin 68 unit SUBCUT HS 12/08/18 11/29/19 History pantoprazole 40 mg tablet,delayed 40 mg PO BID 02/11/19 11/29/19 History release gabapentin 100 mg PO TID 04/14/19 11/29/19 History Breo Ellipta 1 puff INHALATION DAILY 11/29/19 11/29/19 History albuterol sulfate 2 puff INHALATION QID PRN 11/29/19 11/29/19 History fluoxetine 10 mg PO DAILY 11/29/19 11/29/19 History fluoxetine 20 mg PO DAILY 11/29/19 11/29/19 History furosemide [Lasix] 80 mg PO BID 11/29/19 11/29/19 History hydralazine 50 mg PO QID 11/29/19 11/29/19 History insulin aspart U-100 [Novolog 1 sliding scale dose SUBCUT TID 11/29/19 11/29/19 History U-100 Insulin aspart] linaclotide [Linzess] 145 mcg PO DAILY 11/29/19 11/29/19 History prazosin 1 mg PO TID 11/29/19 11/29/19 History Patient History Medical History Anemia Chronic diastolic heart failure (Chronic) COPD (chronic obstructive pulmonary disease) (Chronic) inhalers daily/prn and oxygen 2L n/c Diabetes mellitus, type 2 Elevated troponin I level Graves disease History of gastric ulcer Hyperlipidemia Hypertension (Chronic) Hypothyroidism (Chronic) Hypoxia Left bundle branch block chronic Morbid obesity with BMI of 50.0-59.9, adult Obesity hypoventilation syndrome (Chronic) On home oxygen therapy 2L N/C at all times SAFIA (obstructive sleep apnea) (Chronic) cpap--2L oxygen Surgical History History of angioplasty 2003 @ [facility] [place]--no stents History of colonoscopy History of endoscopic sinus surgery History of esophagogastroduodenoscopy (EGD) History of tooth extraction History of wisdom tooth extraction S/P correction of deviated nasal septum Family History Mother Diabetes Hypertension Brother , dies at 44 yo from [place] Heart disease Other No family history of adverse response to anesthesia Social History Preferred Language: Citizen Of The [place] Communication Ability: Effective 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: No Beliefs That Will Affect Care: None marital status: Single Current Living Situation: Other Current Living Situation Comment: with girlfriend current occupational status: unemployed Other Information That Helps Us Care for You: No Feels Safe at Home: Yes Safety Concerns: Feels Safe At This Time Smoking Status: Former smoker Tobacco Type: cigarettes ; Cigarettes Per Day: 60 ; Do You Dip or Chew Tobacco: No ; Second Hand Exposure: No ; Tobacco Cessation Education Requested by Patient: No Hx Alcohol Use: No Hx Substance Use: No Review of Systems Review of Systems: All systems reviewed & are unremarkable except as noted in HPI & below Physical Exam Physical Exam: Constitutional: No acute distress HEENT: EOMI, PERRLA, thick neck, Mallampati 4 Respiratory system: Decreased air entry bilaterally, no wheeze, no rhonchi, mild crackles bilateral lower lobes CVS: S1-S2 positive, no murmurs or gallops, distant heart sounds Abdomen: Soft, nontender, nondistended, positive bowel sounds x4, obese Extremities: +2 pulses bilaterally radialis/ dorsalis pedis, no cyanosis, +2 pitting edema bilateral lower extremity Neuro: Awake alert oriented x3 Psych: Normal mood and affect G/U: Positive Block Skin: no rashes, warm and dry Lymphatic: no cervical or axillary lymphadenopathy Results & Data Results & Data ([facility]) Vital Signs (Past 12 Hours) Vital Signs Temp Pulse Pulse Pulse Resp BP Pulse Ox 12/01/19 14:58 36.4 C L 64 22 135/55 L 98 12/01/19 12:40 36.5 C 64 19 141/58 H 96 12/01/19 08:02 36.6 C 72 22 162/62 H 95 12/01/19 07:45 64 12/01/19 04:15 37.0 C 64 20 126/57 L 97 12/01/19 04:10 62 Pulse Ox 12/01/19 14:58 12/01/19 12:40 12/01/19 08:02 12/01/19 07:45 12/01/19 04:15 12/01/19 04:10 97 11/30/19 05:21 12/01/19 07:18 PG Care Time/CCT Total # of Minutes Spent Total Time Spent with Patient: Total time spent is greater than 50% in coordination of care (as documented) at patient's floor/unit and/or counseling patient: Coding Level of Care Code 34177 Initial Inpt Care Lvl 3 Diagnoses Acute respiratory failure with hypoxia and hypercarbia J96.01; J96.02 Acute on chronic diastolic heart failure I50.33 SAFIA (obstructive sleep apnea) G47.33 COPD (chronic obstructive pulmonary disease) J44.9
[2019-12-01] MEDS: UMECLIDINIUM/VILANTEROL 62.5/25MCG 7 PUFFS/INHALER INH SCH (19:25)
[2019-12-01] MEDS: ATORVASTATIN 10 MG TAB PO SCH (20:30)
[2019-12-01] MEDS: INSULIN GLARGINE SOLOSTAR 100 UNITS/ML 3 ML PEN SQ SCH (20:30)
[2019-12-02] MEDS: LEVOTHYROXINE SODIUM 25 MCG TABLET PO SCH (05:48)
[2019-12-02] MEDS: HEPARIN SOD 5,000 UNIT/0.5 ML VIAL SQ SCH ×3 (05:48→21:23)
[2019-12-02] MEDS: LEVOTHYROXINE SODIUM 200 MCG TABLET PO SCH (05:48)
[2019-12-02 08:08] LABS: Basophils # (auto) 0.04 K/uL (0-0.2); Basophils % (auto) 0.8 %; Eosinophils # (auto) 0.13 K/uL (0-0.5); Eosinophils % (auto) 2.7 %; Hematocrit (blood only) 31.2 % (42-52); Hemoglobin 9.7 g/dL (14.0-18.0); Immature Granulocytes # (auto) 0.02 K/uL (0.00-0.02); Immature Granulocytes % (auto) 0.4 %; Lymphocytes # (auto) 1.59 K/uL (1.2-3.4); Lymphocytes % (auto) 33.1 %; Mean Corpuscular Hgb Conc 31.1 g/dL (32-36); Mean Corpuscular Volume 93.1 fL (80-100); Monocytes # (auto) 0.52 K/uL (0.11-0.59); Monocytes % (auto) 10.8 %; Neutrophils # (auto) 2.51 K/uL (1.4-6.5); Neutrophils % (auto) 52.2 %; Platelet Count 151 K/uL (130-400); RDW Coefficient of Variation 14.7 % (11.5-14.5); RDW Standard Deviation 50.1 fL (36.4-46.3); Red Blood Count 3.35 M/uL (4.7-6.1); White Blood Count 4.81 K/uL (4.8-10.8)
[2019-12-02] MEDS: HydrALAZINE TAB 50 MG TAB PO SCH ×4 (08:19→21:25)
[2019-12-02] MEDS: UMECLIDINIUM/VILANTEROL 62.5/25MCG 7 PUFFS/INHALER INH SCH (08:19)
[2019-12-02] MEDS: GABAPENTIN 100 MG CAP PO SCH ×3 (08:19→21:22)
[2019-12-02] MEDS: LINACLOTIDE 72 MCG CAPSULE PO SCH (08:20)
[2019-12-02] MEDS: PANTOprazole 40 MG TAB PO SCH ×2 (08:20→21:23)
[2019-12-02] MEDS: FLUOXETINE HCL 10 MG CAP PO SCH (08:20)
[2019-12-02] MEDS: PRAZOSIN HCL 1 MG CAP PO SCH ×3 (08:20→21:23)
[2019-12-02] MEDS: FLUOXETINE HCL 20 MG CAP PO SCH (08:20)
[2019-12-02] MEDS: INSULIN ASPART 100 UNITS/ML 3 ML PEN SC SCH ×4 (08:21→21:25)
[2019-12-02] MEDS: FUROSEMIDE 40 MG in SYRINGE 0 ML IV SCH ×2 (08:24→17:32)
[2019-12-02 08:49] LABS: BUN Creatinine Ratio 16.3 (10-20); Calcium 8.4 mg/dl (8.5-10.1); Creatinine Clr Calc Pharmacy 112.8 ml/min; Est GFR (Non-African American) 71.6; Magnesium 1.8 mg/dl (1.8-2.4); Potassium 3.9 mmol/L (3.5-5.1)
[2019-12-02] MEDS: METOPROLOL SUCC 25MG EXT REL TAB PO SCH (09:41)
--- NOTE | 2019-12-02 11:51 | Pulmonology Progress Note ---
Date of Service December 02, 2019 Assessment & Plan (1) Acute respiratory failure with hypoxia and hypercarbia: VBG 11/30/2019: 7.3 / on 30% FiO2 Chest x-ray 11/30/2019 personally reviewed: Portable film, increased bilateral vascular markings, bilateral costophrenic and cardiophrenic angles are blunted, increased cardiac silhouette. --Acute on chronic hypoxic and hypercapnic respiratory failure Hypoxia is likely secondary to diastolic CHF exacerbation Hypercapnia is most likely secondary to not using BiPAP while being at home Continue with diuresis as tolerated Continue with BiPAP nightly and PRN shortness of breath Keep O2 saturation between 88 to 92% --COPD Patient is supposed to be on Breo at home Given he has history of COPD, I would rather like the patient to be discharged on Anoro. Patient follows up with Dr. Minesh navarro, he was last seen by Janie Nelson back in January 2019 this is when he was compliant with his BiPAP --SAFIA/OHS Patient was compliant with BiPAP till January 2019, his settings were 20 cm H2O IPAP and 12 cm H2O EPAP It is very eminent that this time he should be discharged with BiPAP because of his underlying SAFIA and OHS or else he will get admitted again and again because of the same reason. I was unable to find previous records of his polysomnography As per the patient it was done approximately 2 years ago. Plan: Continue with diuresis. Continue with BiPAP 20/12 centimeters H2O nightly and PRN shortness of breath Patient needs to be on BiPAP whenever he is asleep irrespective of the time of the day. Follow-up outpatient with pulmonary. No further interventions from pulmonary perspective. Will sign off. Recall if needed. (2) Acute on chronic diastolic heart failure: (3) SAFIA (obstructive sleep apnea): (4) COPD (chronic obstructive pulmonary disease): Admission and Anticipated Discharge Date Admission Date: November 29, 2019 Subjective Patient seen and examined at bedside. No acute distress, no adverse events overnight. Patient is compliant with BiPAP while in the hospital. Shortness of breath is improved. Denies any chest pain, no headache, no nausea, no vomiting. Diuresing well. Review of Systems Review of Systems: All systems reviewed & are unremarkable except as noted in HPI & below Physical Exam Physical Exam: Constitutional: No acute distress HEENT: EOMI, PERRLA, thick neck, Mallampati 4 Respiratory system: Decreased air entry bilaterally, no wheeze, no rhonchi, mild crackles bilateral lower lobes CVS: S1-S2 positive, no murmurs or gallops, distant heart sounds Abdomen: Soft, nontender, nondistended, positive bowel sounds x4, obese Extremities: +2 pulses bilaterally radialis/ dorsalis pedis, no cyanosis, +2 pitting edema bilateral lower extremity Neuro: Awake alert oriented x3 Psych: Normal mood and affect G/U: Positive Block Skin: no rashes, warm and dry Lymphatic: no cervical or axillary lymphadenopathy Results & Data Results & Data ([facility]) Vital Signs (Past 12 Hours) Vital Signs Temp Pulse Pulse Pulse Resp BP Pulse Ox 12/02/19 08:21 36.8 C 57 L 22 155/71 H 98 12/02/19 07:05 64 12/02/19 03:43 36.9 C 54 L 20 147/56 H 98 12/02/19 02:30 69 13 96 12/02/19 07:53 12/02/19 07:53 PG Care Time/CCT Total # of Minutes Spent Total Time Spent with Patient: Total time spent is greater than 50% in coordination of care (as documented) at patient's floor/unit and/or counseling patient: Coding Level of Care Code 61500 Subseq Hosp Care Lvl 3 Diagnoses Acute respiratory failure with hypoxia and hypercarbia J96.01; J96.02 Acute on chronic diastolic heart failure I50.33 SAFIA (obstructive sleep apnea) G47.33 COPD (chronic obstructive pulmonary disease) J44.9
--- NOTE | 2019-12-02 15:08 | Hospitalist Progress Note ---
Date of Service December 02, 2019 Assessment & Plan (1) Acute on chronic diastolic heart failure: He is morbidly obese with significant multiple comorbid medical conditions was admitted with increasing shortness of breath and confusion Has acute on chronic diastolic heart failure Has been getting intravenous Lasix for diuresis and feeling much better since admission Echo has been done, results are pending Appreciate cardiology evaluation and recommendation Has been diuresing enough Clinically much better, we will continue current diuresis (2) SAFIA (obstructive sleep apnea): History of SAFIA and is supposed to have sleep study as an outpatient Will need to have a sleep study as an outpatient as soon as possible We will get nocturnal pulse oximetry tonight Nocturnal pulse oximetry did show significant desaturation Will need to continue oxygen at nighttime Appreciate pulmonary input and recommendation Will need BiPAP on discharge Outpatient appointment with pulmonary (3) COPD (chronic obstructive pulmonary disease): No acute exacerbation at this time We will continue his usual medications (4) Acute confusion: Has had confusion on admission Likely secondary to acute on chronic diastolic heart failure and likely complicated by hypoxemia Confusion is resolved but to get gets acute confusion, drowsiness and goes to sleep after a short conversation (5) Diabetes: We will continue current medication Exercise (6) Morbid obesity: DVT prophylaxis Heparin subcu CODE STATUS Full Admission and Anticipated Discharge Date Admission Date: November 29, 2019 Subjective The patient was seen and examined in the telemetry unit He was admitted with acute confusion and shortness of breath at rest He was noted to have acute on chronic diastolic heart failure Has been feeling much better since admission Denies any shortness of breath at rest 12/01/2019 The patient was seen and examined in telemetry unit He has been feeling much better as of this morning Remains drowsy and going into sleep after a short conversation Denies any chest pain and/or palpitation. No shortness of breath at rest 12/02/2019 The patient was seen and examined in telemetry unit He has been feeling lot better today No more drowsiness and denies any shortness of breath at rest Review of Systems Review of Systems: All systems reviewed and are unremarkable except as noted below Respiratory: no cough and no dyspnea Neurologic: Alert, awake and oriented x3 Physical Exam Physical Exam: Lying in bed comfortably without any acute distress Constitutional: well developed, well nourished, + ill appearing and + morbidly obese; no acute distress Eyes: PERRL, conjunctivae normal, anicteric sclerae ENMT: external ear and nose normal, oropharynx normal Neck: trachea midline, no thyromegaly Respiratory: normal respiratory effort; no respiratory distress Auscultation: + diminished lung sounds (Continue to take chest wall) and + crackles (Minimal bibasilar crackles); no wheezes Cardiovascular: Rate/Rhythm: regular rate and regular rhythm Heart Sounds: no murmur Extremities: + edema (1+ edema bilaterally) Gastrointestinal (Abdomen): Inspection/Auscultation: abdomen normal to inspection, + abdomen distended and normal bowel sounds Percussion/Palpation: abdomen soft; abdomen nontender Musculoskeletal: No acute arthritis in any joints Neurologic: moves all extremities; no focal motor deficits Alert, awake and oriented x3 Lymphatic: no cervical or axillary lymphadenopathy Results & Data Results & Data ([facility]) Vital Signs (Past 12 Hours) Vital Signs Temp Pulse Pulse Pulse Resp BP Pulse Ox 12/02/19 11:46 36.4 C L 67 19 142/63 H 98 12/02/19 08:21 36.8 C 57 L 22 155/71 H 98 12/02/19 07:05 64 12/02/19 03:43 36.9 C 54 L 20 147/56 H 98 Laboratory Results Short CBC 12/02/19 Range/Units 07:53 WBC 4.81 (4.8-10.8) K/uL Hgb 9.7 L (14.0-18.0) g/dL Hct 31.2 L (42-52) % Plt Count 151 (130-400) K/uL BMP 12/02/19 07:53 Sodium 140 Potassium 3.9 Chloride 101 Carbon Dioxide 34 H BUN 18 Creatinine 1.08 Glucose 85 Calcium 8.4 L Medications Administered Current Inpatient Medications Acetaminophen (Tylenol) 650 mg PO Q4H PRN PRN Reason: Pain or Fever Stop: 12/30/19 01:27 Last Admin: 12/01/19 23:43 Dose: 650 mg Documented by: Albuterol (Ventolin Hfa) 2 puffs INH QID PRN PRN Reason: Shortness Of Breath Or Wheezing Stop: 12/30/19 01:27 Atorvastatin Calcium (Lipitor) 10 mg PO HS CAROL ANN Stop: 12/30/19 20:59 Last Admin: 12/01/19 20:30 Dose: 10 mg Documented by: Dextrose (Dextrose 50%) 25 - 50 ml IV UD PRN; Protocol PRN Reason: Hypoglycemia Protocol Stop: 12/31/19 07:59 Fluoxetine HCl (Prozac) 10 mg PO DAILY CAROL ANN Stop: 12/30/19 08:59 Last Admin: 12/02/19 08:20 Dose: 10 mg Documented by: Fluoxetine HCl (Prozac) 20 mg PO DAILY CAROL ANN Stop: 12/30/19 08:59 Last Admin: 12/02/19 08:20 Dose: 20 mg Documented by: Gabapentin (Neurontin) 100 mg PO TID CAROL ANN Stop: 12/30/19 08:59 Last Admin: 12/02/19 13:15 Dose: 100 mg Documented by: Glucagon (Glucagen) 1 mg IM UD PRN; Protocol PRN Reason: Hypoglycemia Protocol Stop: 12/31/19 07:59 Glucose (Glucose 40%) 15 - 30 gm PO UD PRN; Protocol PRN Reason: Hypoglycemia Protocol Stop: 12/31/19 07:59 Glucose (Dex4 Glucose) 4 - 8 tabs PO UD PRN; Protocol PRN Reason: Hypoglycemia Protocol Stop: 12/31/19 07:59 Heparin Sodium (Porcine) (Heparin Sodium (Porcine)) 5,000 units SQ Q8 [facility] Stop: 12/30/19 05:59 Last Admin: 12/02/19 13:15 Dose: 5,000 units Documented by: Hydralazine HCl (Apresoline) 50 mg PO QID [facility] Stop: 12/30/19 08:59 Last Admin: 12/02/19 13:15 Dose: 50 mg Documented by: Furosemide 40 mg/ Syringe 4 mls @ 4 mls/min IV BID17 CAROL ANN Stop: 12/30/19 08:59 Last Admin: 12/02/19 08:24 Dose: 4 mls/min Documented by: Insulin Aspart (Novolog Flexpen) 0 units SC ACHS [facility] Stop: 12/30/19 07:29 Last Admin: 12/02/19 12:10 Dose: Not Given Documented by: Insulin Glargine (Lantus Solostar Pen) 45 units SQ HS [facility] Stop: 12/30/19 20:59 Last Admin: 12/01/19 20:30 Dose: 45 units Documented by: Levothyroxine Sodium (Synthroid) 25 mcg PO DAILYBB [facility] Stop: 12/30/19 06:29 Last Admin: 12/02/19 05:48 Dose: 25 mcg Documented by: Levothyroxine Sodium (Synthroid) 200 mcg PO DAILYBB [facility] Stop: 12/30/19 06:29 Last Admin: 12/02/19 05:48 Dose: 200 mcg Documented by: Linaclotide (Linzess) 144 mcg PO DAILY [facility] Stop: 12/30/19 08:59 Last Admin: 12/02/19 08:20 Dose: 144 mcg Documented by: Metoprolol Succinate (Toprol Xl) 25 mg PO QAM [facility] Stop: 12/30/19 08:59 Last Admin: 12/02/19 09:41 Dose: Not Given Documented by: Miscellaneous (Carbohydrates For Hypoglycemia) 15 - 30 gm PO UD PRN PRN Reason: Hypoglycemia Treatment Stop: 12/31/19 07:59 Last Admin: 12/01/19 07:55 Dose: 15 gm Documented by: Nitroglycerin (Nitrostat) 0.4 mg SL UD PRN PRN Reason: Chest Pain Stop: 12/30/19 01:27 Nystatin (Mycostatin) 1 appln EXT PRN PRN PRN Reason: Affected Skin Folds Stop: 12/30/19 15:14 Last Admin: 11/30/19 17:26 Dose: 1 appln Documented by: Ondansetron HCl (Zofran) 4 mg IV Q6H PRN PRN Reason: Nausea Stop: 12/30/19 01:27 Pantoprazole Sodium (Protonix) 40 mg PO BID [facility] Stop: 12/30/19 08:59 Last Admin: 12/02/19 08:20 Dose: 40 mg Documented by: Prazosin HCl (Prazosin Hcl) 1 mg PO TID [facility] Stop: 12/30/19 08:59 Last Admin: 12/02/19 13:14 Dose: 1 mg Documented by: Umeclidinium/Vilanterol (Anoro Ellipta 62.5/25 Mcg Inh) 1 puffs INH DAILY [facility] Stop: 12/31/19 16:29 Last Admin: 12/02/19 08:19 Dose: 1 puffs Documented by:
[2019-12-02] MEDS: ATORVASTATIN 10 MG TAB PO SCH (21:22)
[2019-12-02] MEDS: INSULIN GLARGINE SOLOSTAR 100 UNITS/ML 3 ML PEN SQ SCH (21:24)
[2019-12-02] MEDS: NYSTATIN POWDER 15GM BTL EXT PRN (21:28)
[2019-12-03] MEDS: LEVOTHYROXINE SODIUM 25 MCG TABLET PO SCH (05:46)
[2019-12-03] MEDS: LEVOTHYROXINE SODIUM 200 MCG TABLET PO SCH (05:46)
[2019-12-03] MEDS: HEPARIN SOD 5,000 UNIT/0.5 ML VIAL SQ SCH ×3 (05:48→19:31)
[2019-12-03] MEDS: UMECLIDINIUM/VILANTEROL 62.5/25MCG 7 PUFFS/INHALER INH SCH (08:41)
[2019-12-03] MEDS: FLUOXETINE HCL 10 MG CAP PO SCH (08:42)
[2019-12-03] MEDS: HydrALAZINE TAB 50 MG TAB PO SCH ×4 (08:42→19:30)
[2019-12-03] MEDS: PANTOprazole 40 MG TAB PO SCH ×2 (08:43→19:33)
[2019-12-03] MEDS: PRAZOSIN HCL 1 MG CAP PO SCH ×3 (08:43→19:31)
[2019-12-03] MEDS: GABAPENTIN 100 MG CAP PO SCH ×3 (08:43→19:32)
[2019-12-03] MEDS: FUROSEMIDE 40 MG in SYRINGE 0 ML IV SCH ×2 (08:43→16:40)
[2019-12-03] MEDS: INSULIN ASPART 100 UNITS/ML 3 ML PEN SC SCH ×4 (08:48→21:12)
[2019-12-03] MEDS: LINACLOTIDE 72 MCG CAPSULE PO SCH (10:27)
[2019-12-03] MEDS: FLUOXETINE HCL 20 MG CAP PO SCH (10:45)
[2019-12-03] MEDS: METOPROLOL SUCC 25MG EXT REL TAB PO SCH (10:45)
--- NOTE | 2019-12-03 14:47 | Cardiology Progress Note ---
Date of Service December 03, 2019 Assessment & Plan (1) Acute on chronic diastolic heart failure: (2) Acute respiratory failure with hypoxia and hypercarbia: (3) Acute confusion: (4) Morbid obesity: (5) SAFIA (obstructive sleep apnea): (6) COPD (chronic obstructive pulmonary disease): Continues to diurese with another 2 L out overnight. Currently negative over 8 L Slept well with nocturnal BiPAP, appreciate pulmonary input Renal function remained stable and he continues to diurese so we will continue with IV Lasix. Follow renal function and electrolytes, replete lytes as necessary. Okay to DC telemetry from a cardiac standpoint. Subjective Patient seen and examined, chart reviewed. States that he feels well with no events overnight. Tolerated BiPAP well. Denies chest pain, shortness of breath, palpitations, lightheadedness, dizziness or syncope. Telemetry reviewed: Normal sinus rhythm with sinus arrhythmia and occasional PACs. Review of Systems Review of Systems: All systems reviewed & are unremarkable except as noted in HPI & below Physical Exam Physical Exam: Physical Exam: General: Awake, alert and oriented x 3. No acute distress. HEENT: Normocephalic, atraumatic. Pupils equal, round and reactive to light and accommodation. Extraocular muscles are intact. Anicteric sclera. Moist mucous membranes. Neck: No JVD. No bruit. Cardiovascular: Unable to appreciate Pulmonary: Reduced bilaterally otherwise clear Abdomen: Bowel sounds x 4, soft. No rebound, guarding or tenderness. No organomegaly. Extremities: No clubbing, cyanosis or edema. +2 pedal pulses bilaterally. Skin: Warm and dry. Results & Data Vital Signs (Past 12 Hours) Vital Signs Temp Pulse Pulse Pulse Resp BP Pulse Ox 12/03/19 11:30 37.0 C 63 22 149/70 H 100 12/03/19 10:35 68 160/67 H 98 12/03/19 07:53 52 L 12/03/19 07:51 36.6 C 61 20 163/73 H 96 12/03/19 03:58 36.8 C 62 16 147/69 H 95
--- NOTE | 2019-12-03 17:54 | Hospitalist Progress Note ---
Date of Service December 03, 2019 Assessment & Plan (1) Acute on chronic diastolic heart failure: He is morbidly obese with significant multiple comorbid medical conditions was admitted with increasing shortness of breath and confusion Has acute on chronic diastolic heart failure Has been getting intravenous Lasix for diuresis and feeling much better since admission Echo - technically difficult study due to patient's body habitus. Grossly normal LV chamber size. Grossly normal LV systolic function. Grade 2 diastolic dysfunction. Poorly visualized valvular structures without any significant stenosis or regurgitation by Doppler. Appreciate cardiology evaluation and recommendation Has been diuresing well Clinically much better, we will continue current diuresis (2) SAFIA (obstructive sleep apnea): / OHS History of SAFIA and is supposed to have sleep study as an outpatient Will need to have a sleep study as an outpatient as soon as possible Nocturnal pulse oximetry obtained and showed significant desaturation Will need to continue oxygen at nighttime Appreciate pulmonary input and recommendation Will need BiPAP on discharge - Case management aware Outpatient appointment with pulmonary (3) COPD (chronic obstructive pulmonary disease): Acute on chronic hypoxic and hypercapnic respiratory failure no acute exacerbation at this time We will continue his usual medications except as below Pulmonary consulted, recommend to discharge on Anoro (instead of home Breo) Keep saturation between 88 to 92%, continue BiPAP nightly and as needed for shortness of breath Follow-up with Dr. Lr, [place] [facility] pulmonology (4) Acute confusion: Has had confusion on admission, now resolved Likely secondary to acute on chronic diastolic heart failure and likely complicated by hypoxemia Need for BiPAP (5) Diabetes: We will continue current medication Exercise (6) Morbid obesity: DVT prophylaxis Heparin subcu CODE STATUS Full Admission and Anticipated Discharge Date Admission Date: November 29, 2019 Subjective No acute events overnight. Patient is lying in bed, in no acute distress. Diuresing well. Denies any fevers, chills, chest pain, shortness of breath, abdominal pain, nausea or vomiting. BiPAP at the bedside, case management aware of need of home BiPAP. Review of Systems Review of Systems: All systems reviewed & are unremarkable except as noted in HPI & below Constitutional: no fever and no chills Respiratory: no cough and no dyspnea Cardiovascular: no chest pain and no dyspnea Gastrointestinal: no abdominal pain, no nausea and no vomiting Physical Exam Physical Exam: Physical Exam: Morbidly obese male, lying in bed comfortably without any acute distress Constitutional: well developed, well nourished, + ill appearing and + morbidly obese; no acute distress Eyes: PERRL, EOMI, conjunctivae normal, anicteric sclerae ENMT: external ear and nose normal, oropharynx normal Neck: trachea midline, no thyromegaly Respiratory: normal respiratory effort; no respiratory distress Auscultation: + diminished lung sounds, + crackles (Minimal bibasilar crackles); no wheezes Cardiovascular: Rate/Rhythm: regular rate and regular rhythm Heart Sounds: no murmur Extremities: + edema (1+ edema bilaterally) Gastrointestinal (Abdomen): Inspection/Auscultation: abdomen normal to inspection, obese, + abdomen distended, normal bowel sounds, soft, nontender Musculoskeletal: Moves extremities spontaneously Neuro/ Psych: moves all extremities; no focal motor deficits Alert, awake and oriented x3, speech fluent, no facial asymmetry, answers questions appropriately Results & Data Results & Data ([facility]) Vital Signs (Past 12 Hours) Vital Signs Temp Pulse Pulse Pulse Resp BP BP 12/03/19 15:50 37.2 C 65 18 141/61 H 12/03/19 11:30 37.0 C 63 22 149/70 H 12/03/19 10:35 68 160/67 H 12/03/19 07:53 52 L 12/03/19 07:51 36.6 C 61 20 163/73 H Pulse Ox 12/03/19 15:50 98 12/03/19 11:30 100 12/03/19 10:35 98 12/03/19 07:53 12/03/19 07:51 96 Medications Administered Current Inpatient Medications Acetaminophen (Tylenol) 650 mg PO Q4H PRN PRN Reason: Pain or Fever Stop: 12/30/19 01:27 Last Admin: 12/01/19 23:43 Dose: 650 mg Documented by: Albuterol (Ventolin Hfa) 2 puffs INH QID PRN PRN Reason: Shortness Of Breath Or Wheezing Stop: 12/30/19 01:27 Atorvastatin Calcium (Lipitor) 10 mg PO HS [facility] Stop: 12/30/19 20:59 Last Admin: 12/02/19 21:22 Dose: 10 mg Documented by: Dextrose (Dextrose 50%) 25 - 50 ml IV UD PRN; Protocol PRN Reason: Hypoglycemia Protocol Stop: 12/31/19 07:59 Fluoxetine HCl (Prozac) 10 mg PO DAILY [facility] Stop: 12/30/19 08:59 Last Admin: 12/03/19 08:42 Dose: 10 mg Documented by: Fluoxetine HCl (Prozac) 20 mg PO DAILY [facility] Stop: 12/30/19 08:59 Last Admin: 12/03/19 10:45 Dose: 20 mg Documented by: Gabapentin (Neurontin) 100 mg PO TID [facility] Stop: 12/30/19 08:59 Last Admin: 12/03/19 14:11 Dose: 100 mg Documented by: Glucagon (Glucagen) 1 mg IM UD PRN; Protocol PRN Reason: Hypoglycemia Protocol Stop: 12/31/19 07:59 Glucose (Glucose 40%) 15 - 30 gm PO UD PRN; Protocol PRN Reason: Hypoglycemia Protocol Stop: 12/31/19 07:59 Glucose (Dex4 Glucose) 4 - 8 tabs PO UD PRN; Protocol PRN Reason: Hypoglycemia Protocol Stop: 12/31/19 07:59 Heparin Sodium (Porcine) (Heparin Sodium (Porcine)) 5,000 units SQ Q8 [facility] Stop: 12/30/19 05:59 Last Admin: 12/03/19 14:10 Dose: 5,000 units Documented by: Hydralazine HCl (Apresoline) 50 mg PO QID [facility] Stop: 12/30/19 08:59 Last Admin: 12/03/19 16:40 Dose: 50 mg Documented by: Furosemide 40 mg/ Syringe 4 mls @ 4 mls/min IV BID17 [facility] Stop: 12/30/19 08:59 Last Admin: 12/03/19 16:40 Dose: 4 mls/min Documented by: Insulin Aspart (Novolog Flexpen) 0 units SC ACHS [facility] Stop: 12/30/19 07:29 Last Admin: 12/03/19 16:42 Dose: 6 units Documented by: Insulin Glargine (Lantus Solostar Pen) 45 units SQ HS [facility] Stop: 12/30/19 20:59 Last Admin: 12/02/19 21:24 Dose: 45 units Documented by: Levothyroxine Sodium (Synthroid) 25 mcg PO DAILYBB [facility] Stop: 12/30/19 06:29 Last Admin: 12/03/19 05:46 Dose: 25 mcg Documented by: Levothyroxine Sodium (Synthroid) 200 mcg PO DAILYBB [facility] Stop: 12/30/19 06:29 Last Admin: 12/03/19 05:46 Dose: 200 mcg Documented by: Linaclotide (Linzess) 144 mcg PO DAILY [facility] Stop: 12/30/19 08:59 Last Admin: 12/03/19 10:27 Dose: Not Given Documented by: Metoprolol Succinate (Toprol Xl) 25 mg PO QAM [facility] Stop: 12/30/19 08:59 Last Admin: 12/03/19 10:45 Dose: 25 mg Documented by: Miscellaneous (Carbohydrates For Hypoglycemia) 15 - 30 gm PO UD PRN PRN Reason: Hypoglycemia Treatment Stop: 12/31/19 07:59 Last Admin: 12/01/19 07:55 Dose: 15 gm Documented by: Nitroglycerin (Nitrostat) 0.4 mg SL UD PRN PRN Reason: Chest Pain Stop: 12/30/19 01:27 Nystatin (Mycostatin) 1 appln EXT PRN PRN PRN Reason: Affected Skin Folds Stop: 12/30/19 15:14 Last Admin: 12/02/19 21:28 Dose: 1 appln Documented by: Ondansetron HCl (Zofran) 4 mg IV Q6H PRN PRN Reason: Nausea Stop: 12/30/19 01:27 Pantoprazole Sodium (Protonix) 40 mg PO BID [facility] Stop: 12/30/19 08:59 Last Admin: 12/03/19 08:43 Dose: 40 mg Documented by: Prazosin HCl (Prazosin Hcl) 1 mg PO TID [facility] Stop: 12/30/19 08:59 Last Admin: 12/03/19 14:11 Dose: 1 mg Documented by: Umeclidinium/Vilanterol (Anoro Ellipta 62.5/25 Mcg Inh) 1 puffs INH DAILY [facility] Stop: 12/31/19 16:29 Last Admin: 12/03/19 08:41 Dose: 1 puffs Documented by:
[2019-12-03 18:36] LABS: BUN Creatinine Ratio 13.3 (10-20); Calcium 8.3 mg/dl (8.5-10.1); Creatinine Clr Calc Pharmacy 97.6 ml/min; Est GFR (African American) 70.3; Est GFR (Non-African American) 60.6; Magnesium 1.9 mg/dl (1.8-2.4); Potassium 3.9 mmol/L (3.5-5.1)
[2019-12-03] MEDS: ATORVASTATIN 10 MG TAB PO SCH (19:31)
[2019-12-03] MEDS: INSULIN GLARGINE SOLOSTAR 100 UNITS/ML 3 ML PEN SQ SCH (19:33)
[2019-12-04] MEDS: HEPARIN SOD 5,000 UNIT/0.5 ML VIAL SQ SCH ×3 (05:00→22:37)
[2019-12-04] MEDS: LEVOTHYROXINE SODIUM 200 MCG TABLET PO SCH (05:01)
[2019-12-04] MEDS: LEVOTHYROXINE SODIUM 25 MCG TABLET PO SCH (05:01)
[2019-12-04 07:29] LABS: BUN Creatinine Ratio 14.3 (10-20); Calcium 8.3 mg/dl (8.5-10.1); Creatinine Clr Calc Pharmacy 104.7 ml/min; Est GFR (African American) 77.8; Est GFR (Non-African American) 67.1; Magnesium 1.8 mg/dl (1.8-2.4); Phosphorus 2.8 mg/dl (2.5-4.9); Potassium 3.6 mmol/L (3.5-5.1)
[2019-12-04] MEDS ORDERED: POTASSIUM CHLORIDE 20 MEQ TABCR PO STA (08:07)
--- NOTE | 2019-12-04 08:07 | Hospitalist Progress Note ---
Date of Service December 04, 2019 Assessment & Plan (1) Acute on chronic diastolic heart failure: He is morbidly obese with significant multiple comorbid medical conditions was admitted with increasing shortness of breath and confusion Has acute on chronic diastolic heart failure Has been getting intravenous Lasix for diuresis and feeling much better since admission Echo - technically difficult study due to patient's body habitus. Grossly normal LV chamber size. Grossly normal LV systolic function. Grade 2 diastolic dysfunction. Poorly visualized valvular structures without any significant stenosis or regurgitation by Doppler. Appreciate cardiology evaluation and recommendation Has been diuresing well Clinically much better, will switch to his home p.o. Lasix (2) SAFIA (obstructive sleep apnea): / OHS History of SAFIA and is supposed to have sleep study as an outpatient Will need to have a sleep study as an outpatient as soon as possible Nocturnal pulse oximetry obtained and showed significant desaturation Will need to continue oxygen at nighttime Appreciate pulmonary input and recommendation Will need BiPAP on discharge - Case management aware Outpatient appointment with pulmonary (3) COPD (chronic obstructive pulmonary disease): Acute on chronic hypoxic and hypercapnic respiratory failure no acute COPD exacerbation at this time We will continue his usual COPD medications except as below Pulmonary consulted, recommend to discharge on Anoro (instead of home Breo) Keep saturation between 88 to 92%, continue BiPAP nightly and as needed for shortness of breath Follow-up with [facility] pulmonology (4) Acute confusion: Has had confusion on admission, now resolved Likely secondary to acute on chronic diastolic heart failure and likely complicated by hypoxemia and hypercarbia Need for BiPAP (5) Diabetes: We will continue current medication Follow-up as outpatient (6) Morbid obesity: DVT prophylaxis Heparin subcu CODE STATUS Full Admission and Anticipated Discharge Date Admission Date: November 29, 2019 Subjective No acute events overnight. Patient is tolerating BiPAP. Denies any fevers, chills, chest pain, shortness of breath, abdominal pain, nausea or vomiting. Plan to discharge on home BiPAP, case management aware. Review of Systems Review of Systems: All systems reviewed & are unremarkable except as noted in HPI & below Constitutional: no fever and no chills Respiratory: no cough and no dyspnea Cardiovascular: no chest pain and no palpitations Gastrointestinal: no abdominal pain, no nausea and no vomiting Physical Exam Physical Exam: Physical Exam: Morbidly obese male, lying in bed comfortably without any acute distress Constitutional: well developed, well nourished, + morbidly obese; no acute distress Eyes: PERRL, EOMI, conjunctivae normal, anicteric sclerae ENMT: external ear and nose normal, oropharynx normal Neck: trachea midline, no thyromegaly Respiratory: normal respiratory effort; no respiratory distress Auscult ation: + diminished lung sounds, + crackles (Minimal bibasilar crackles); mild wheezes Cardiovascular: Rate/Rhythm: regular rate and regular rhythm Heart Sounds: no murmur Extremities: no LE edema (resolved) Gastrointestinal (Abdomen): Inspection/Auscultation: abdomen normal to inspection, obese, + abdomen distended, normal bowel sounds, soft, nontender Musculoskeletal: Moves extremities spontaneously Neuro/ Psych: moves all extremities; no focal motor deficits Alert, awake and oriented x3, speech fluent, no facial asymmetry, answers questions appropriately Results & Data Results & Data ([facility]) Vital Signs (Past 12 Hours) Vital Signs Temp Pulse Pulse Resp BP BP Pulse Ox 12/04/19 04:48 37.2 C 56 L 16 92/42 L 100 12/04/19 03:13 51 L 14 98 12/04/19 00:04 37.4 C 58 L 22 145/67 H 99 12/03/19 21:31 57 L 24 99 Laboratory Results 12/04/19 12/03/19 12/03/19 Range/Units 06:28 20:42 18:04 Sodium 141 140 (136-145) mmol/L Potassium 3.6 3.9 (3.5-5.1) mmol/L Chloride 101 101 (98-107) mmol/L Carbon Dioxide 36 H 36 H (21-32) mmol/L Anion Gap 4.0 3.0 (3-11) BUN 16 16 (7-18) mg/dl Creatinine 1.14 1.24 (0.6-1.4) mg/dl Est Cr Clr Drug Dosing 104.7 97.6 ml/min Est GFR ( Amer) 77.8 70.3 Est GFR (Non-Af Amer) 67.1 60.6 BUN/Creatinine Ratio 14.3 13.3 (10-20) Glucose 87 179 H (70-99) mg/dl POC Glucose 184 H (70-99) mg/dl Calcium 8.3 L 8.3 L (8.5-10.1) mg/dl Phosphorus 2.8 (2.5-4.9) mg/dl Magnesium 1.8 1.9 (1.8-2.4) mg/dl 12/03/19 12/03/19 Range/Units 16:32 11:26 Sodium (136-145) mmol/L Potassium (3.5-5.1) mmol/L Chloride (98-107) mmol/L Carbon Dioxide (21-32) mmol/L Anion Gap (3-11) BUN (7-18) mg/dl Creatinine (0.6-1.4) mg/dl Est Cr Clr Drug Dosing ml/min Est GFR ( Amer) Est GFR (Non-Af Amer) BUN/Creatinine Ratio (10-20) Glucose (70-99) mg/dl POC Glucose 205 H 128 H (70-99) mg/dl Calcium (8.5-10.1) mg/dl Phosphorus (2.5-4.9) mg/dl Magnesium (1.8-2.4) mg/dl Medications Administered Current Inpatient Medications Acetaminophen (Tylenol) 650 mg PO Q4H PRN PRN Reason: Pain or Fever Stop: 12/30/19 01:27 Last Admin: 12/01/19 23:43 Dose: 650 mg Documented by: Albuterol (Ventolin Hfa) 2 puffs INH QID PRN PRN Reason: Shortness Of Breath Or Wheezing Stop: 12/30/19 01:27 Atorvastatin Calcium (Lipitor) 10 mg PO HS [facility] Stop: 12/30/19 20:59 Last Admin: 12/03/19 19:31 Dose: 10 mg Documented by: Dextrose (Dextrose 50%) 25 - 50 ml IV UD PRN; Protocol PRN Reason: Hypoglycemia Protocol Stop: 12/31/19 07:59 Fluoxetine HCl (Prozac) 10 mg PO DAILY [facility] Stop: 12/30/19 08:59 Last Admin: 12/03/19 08:42 Dose: 10 mg Documented by: Fluoxetine HCl (Prozac) 20 mg PO DAILY [facility] Stop: 12/30/19 08:59 Last Admin: 12/03/19 10:45 Dose: 20 mg Documented by: Gabapentin (Neurontin) 100 mg PO TID [facility] Stop: 12/30/19 08:59 Last Admin: 12/03/19 19:32 Dose: 100 mg Documented by: Glucagon (Glucagen) 1 mg IM UD PRN; Protocol PRN Reason: Hypoglycemia Protocol Stop: 12/31/19 07:59 Glucose (Glucose 40%) 15 - 30 gm PO UD PRN; Protocol PRN Reason: Hypoglycemia Protocol Stop: 12/31/19 07:59 Glucose (Dex4 Glucose) 4 - 8 tabs PO UD PRN; Protocol PRN Reason: Hypoglycemia Protocol Stop: 12/31/19 07:59 Heparin Sodium (Porcine) (Heparin Sodium (Porcine)) 5,000 units SQ Q8 [facility] Stop: 12/30/19 05:59 Last Admin: 12/04/19 05:00 Dose: 5,000 units Documented by: Hydralazine HCl (Apresoline) 50 mg PO QID [facility] Stop: 12/30/19 08:59 Last Admin: 12/03/19 19:30 Dose: 50 mg Documented by: Furosemide 40 mg/ Syringe 4 mls @ 4 mls/min IV BID17 [facility] Stop: 12/30/19 08:59 Last Admin: 12/03/19 16:40 Dose: 4 mls/min Documented by: Insulin Aspart (Novolog Flexpen) 0 units SC ACHS [facility] Stop: 12/30/19 07:29 Last Admin: 12/03/19 21:12 Dose: 2 units Documented by: Insulin Glargine (Lantus Solostar Pen) 45 units SQ HS [facility] Stop: 12/30/19 20:59 Last Admin: 12/03/19 19:33 Dose: 45 units Documented by: Levothyroxine Sodium (Synthroid) 25 mcg PO DAILYBB [facility] Stop: 12/30/19 06:29 Last Admin: 12/04/19 05:01 Dose: 25 mcg Documented by: Levothyroxine Sodium (Synthroid) 200 mcg PO DAILYBB [facility] Stop: 12/30/19 06:29 Last Admin: 12/04/19 05:01 Dose: 200 mcg Documented by: Linaclotide (Linzess) 144 mcg PO DAILY [facility] Stop: 12/30/19 08:59 Last Admin: 12/03/19 10:27 Dose: Not Given Documented by: Metoprolol Succinate (Toprol Xl) 25 mg PO QAM [facility] Stop: 12/30/19 08:59 Last Admin: 12/03/19 10:45 Dose: 25 mg Documented by: Miscellaneous (Carbohydrates For Hypoglycemia) 15 - 30 gm PO UD PRN PRN Reason: Hypoglycemia Treatment Stop: 12/31/19 07:59 Last Admin: 12/01/19 07:55 Dose: 15 gm Documented by: Nitroglycerin (Nitrostat) 0.4 mg SL UD PRN PRN Reason: Chest Pain Stop: 12/30/19 01:27 Nystatin (Mycostatin) 1 appln EXT PRN PRN PRN Reason: Affected Skin Folds Stop: 12/30/19 15:14 Last Admin: 12/02/19 21:28 Dose: 1 appln Documented by: Ondansetron HCl (Zofran) 4 mg IV Q6H PRN PRN Reason: Nausea Stop: 12/30/19 01:27 Pantoprazole Sodium (Protonix) 40 mg PO BID [facility] Stop: 12/30/19 08:59 Last Admin: 12/03/19 19:33 Dose: 40 mg Documented by: Potassium Chloride (Klor-Con M20) 40 meq PO NOW STA Stop: 12/04/19 08:08 Prazosin HCl (Prazosin Hcl) 1 mg PO TID [facility] Stop: 12/30/19 08:59 Last Admin: 12/03/19 19:31 Dose: 1 mg Documented by: Umeclidinium/Vilanterol (Anoro Ellipta 62.5/25 Mcg Inh) 1 puffs INH DAILY [facility] Stop: 12/31/19 16:29 Last Admin: 12/03/19 08:41 Dose: 1 puffs Documented by:
[2019-12-04] MEDS: GABAPENTIN 100 MG CAP PO SCH ×3 (09:05→20:32)
[2019-12-04] MEDS: FLUOXETINE HCL 10 MG CAP PO SCH (09:05)
[2019-12-04] MEDS: METOPROLOL SUCC 25MG EXT REL TAB PO SCH (09:05)
[2019-12-04] MEDS: FLUOXETINE HCL 20 MG CAP PO SCH (09:05)
[2019-12-04] MEDS: PRAZOSIN HCL 1 MG CAP PO SCH ×3 (09:05→20:31)
[2019-12-04] MEDS: HydrALAZINE TAB 50 MG TAB PO SCH ×4 (09:05→20:32)
[2019-12-04] MEDS: PANTOprazole 40 MG TAB PO SCH ×2 (09:05→20:31)
[2019-12-04] MEDS: INSULIN ASPART 100 UNITS/ML 3 ML PEN SC SCH ×4 (09:06→20:33)
[2019-12-04] MEDS: UMECLIDINIUM/VILANTEROL 62.5/25MCG 7 PUFFS/INHALER INH SCH (09:06)
[2019-12-04] MEDS: FUROSEMIDE 40 MG in SYRINGE 0 ML IV SCH (09:06)
[2019-12-04] MEDS: LINACLOTIDE 72 MCG CAPSULE PO SCH (10:49)
--- NOTE | 2019-12-04 14:04 | Cardiology Progress Note ---
Date of Service December 04, 2019 Assessment & Plan (1) Acute on chronic diastolic heart failure: (2) Acute respiratory failure with hypoxia and hypercarbia: (3) Acute confusion: (4) Morbid obesity: (5) SAFIA (obstructive sleep apnea): (6) COPD (chronic obstructive pulmonary disease): Continues to diurese with transition to oral diuretics Slept well with nocturnal BiPAP, appreciate pulmonary input Okay to DC from a cardiac standpoint. Subjective Patient seen and examined, chart reviewed. States he is feeling well and denies any complaints of chest pain, shortness of breath, palpitations, lightheadedness, dizziness or syncope. Has been resumed on his home oral diuretics, awaiting insurance approval for BiPAP. Review of Systems Review of Systems: All systems reviewed & are unremarkable except as noted in HPI & below Physical Exam Physical Exam: Physical Exam: General: Awake, alert and oriented x 3. No acute distress. Morbidly obese HEENT: Normocephalic, atraumatic. Pupils equal, round and reactive to light and accommodation. Extraocular muscles are intact. Anicteric sclera. Moist mucous membranes. Neck: No JVD. No bruit. Cardiovascular: Unable to appreciate due to body habitus Pulmonary: Clear to auscultation bilaterally. No rales, rhonchi, or wheezing. Abdomen: Bowel sounds x 4, soft. No rebound, guarding or tenderness. No organomegaly. Extremities: No clubbing, cyanosis or edema. +2 pedal pulses bilaterally. Skin: Warm and dry. Results & Data Vital Signs (Past 12 Hours) Vital Signs Temp Pulse Pulse Resp BP Pulse Ox 12/04/19 12:00 37.0 C 89 20 111/58 L 94 12/04/19 08:00 49 L 12/04/19 07:41 36.7 C 55 L 22 145/67 H 94 12/04/19 04:48 37.2 C 56 L 16 92/42 L 100 12/04/19 03:13 51 L 14 98
[2019-12-04] MEDS: FUROSEMIDE 80 MG TAB PO SCH (17:07)
[2019-12-04] MEDS: INSULIN GLARGINE SOLOSTAR 100 UNITS/ML 3 ML PEN SQ SCH (20:32)
[2019-12-04] MEDS: ATORVASTATIN 10 MG TAB PO SCH (20:32)
[2019-12-05] MEDS: LEVOTHYROXINE SODIUM 25 MCG TABLET PO SCH (06:10)
[2019-12-05] MEDS: HEPARIN SOD 5,000 UNIT/0.5 ML VIAL SQ SCH ×2 (06:10→13:15)
[2019-12-05] MEDS: LEVOTHYROXINE SODIUM 200 MCG TABLET PO SCH (06:10)
[2019-12-05 07:37] LABS: BUN Creatinine Ratio 13.4 (10-20); Calcium 8.1 mg/dl (8.5-10.1); Creatinine Clr Calc Pharmacy 104.2 ml/min; Est GFR (Non-African American) 66.4; Magnesium 1.9 mg/dl (1.8-2.4); Potassium 4.1 mmol/L (3.5-5.1)
[2019-12-05] MEDS: INSULIN ASPART 100 UNITS/ML 3 ML PEN SC SCH ×2 (08:35→13:15)
[2019-12-05] MEDS: FUROSEMIDE 80 MG TAB PO SCH (08:35)
[2019-12-05] MEDS: FLUOXETINE HCL 10 MG CAP PO SCH (08:36)
[2019-12-05] MEDS: PANTOprazole 40 MG TAB PO SCH (08:36)
[2019-12-05] MEDS: HydrALAZINE TAB 50 MG TAB PO SCH ×2 (08:36→13:27)
[2019-12-05] MEDS: PRAZOSIN HCL 1 MG CAP PO SCH ×2 (08:36→13:16)
[2019-12-05] MEDS: FLUOXETINE HCL 20 MG CAP PO SCH (08:36)
[2019-12-05] MEDS: GABAPENTIN 100 MG CAP PO SCH ×2 (08:36→13:16)
[2019-12-05] MEDS: UMECLIDINIUM/VILANTEROL 62.5/25MCG 7 PUFFS/INHALER INH SCH (08:37)
[2019-12-05] MEDS: LINACLOTIDE 72 MCG CAPSULE PO SCH (09:08)
[2019-12-05] MEDS: METOPROLOL SUCC 25MG EXT REL TAB PO SCH (09:11)
--- NOTE | 2019-12-05 10:01 | Hospitalist Progress Note ---
Date of Service December 05, 2019 Assessment & Plan (1) Acute on chronic diastolic heart failure: Pt is morbidly obese with significant multiple comorbid medical conditions was admitted with increasing shortness of breath and confusion Has acute on chronic diastolic heart failure Acute on chronic hypoxic and hypercapnic respiratory failure Has been getting intravenous Lasix for diuresis and feeling much better since admission Echo - technically difficult study due to patient's body habitus. Grossly normal LV chamber size. Grossly normal LV systolic function. Grade 2 diastolic dysfunction. Poorly visualized valvular structures without any significant stenosis or regurgitation by Doppler. Appreciate cardiology evaluation and recommendation Has been diuresing well Clinically much better, will switched to his home p.o. Lasix yesterday Plan to discharge home today, on home dose of diuretics (2) SAFIA (obstructive sleep apnea): / OHS History of SAFIA and is supposed to have sleep study as an outpatient Will need to have a sleep study as an outpatient as soon as possible Nocturnal pulse oximetry obtained and showed significant desaturation Will need to continue oxygen at nighttime Appreciate pulmonary input and recommendation Will need BiPAP on discharge - Case management aware. BiPAP approved, to be delivered to his home. Outpatient appointment with pulmonary scheduled for 12/09/19. (3) COPD (chronic obstructive pulmonary disease): Acute on chronic hypoxic and hypercapnic respiratory failure no acute COPD exacerbation at this time We will continue his usual COPD medications except as below Pulmonary consulted, recommend to discharge on Anoro (instead of home Breo) Keep saturation between 88 to 92%, continue BiPAP nightly and as needed for shortness of breath Follows with [facility] pulmonology, appointment scheduled for December 08, with Dr. Rogers (4) Acute confusion: Has had confusion on admission, now resolved Likely secondary to acute on chronic diastolic heart failure and likely complicated by hypoxemia and hypercarbia Need for BiPAP Confusion now resolved (5) Diabetes: Patient had some lower blood sugar readings in the morning, Lantus decreased to 40 units. Patient will need to follow-up with his primary care doctor, and Lantus dose will likely need to be further adjusted. (6) Morbid obesity: BMI 56 Counseled on lifestyle modification will need to follow-up with his primary care doctor DVT prophylaxis Heparin subcu CODE STATUS Full Admission and Anticipated Discharge Date Admission Date: November 29, 2019 Subjective Switched to home p.o. Lasix yesterday. Prescription for BiPAP signed yesterday, awaiting approval for home BiPAP. No acute events overnight. Patient is lying in bed, in no acute distress. Notified that BiPAP was approved and so patient will be discharged home today. PCP and pulmonology follow-up scheduled. Patient is comfortable, denies any fevers, chills, chest pain, shortness of breath, abdominal pain, nausea or vomiting. He is alert and oriented and answers questions appropriately. Review of Systems Review of Systems: All systems reviewed & are unremarkable except as noted in HPI & below Constitutional: no fever and no chills Respiratory: no cough and no dyspnea Cardiovascular: no chest pain and no palpitations Gastrointestinal: no abdominal pain, no nausea and no vomiting Physical Exam Physical Exam: Physical Exam: Morbidly obese male, lying in bed comfortably without any acute distress Constitutional: well developed, well nourished, + morbidly obese; no acute distress Eyes: PERRL, EOMI, conjunctivae normal, anicteric sclerae ENMT: external ear and nose normal, oropharynx normal Neck: trachea midline, no thyromegaly Respiratory: normal respiratory effort; no respiratory distress Auscultation: + diminished lung sounds, mild occasional wheezes Cardiovascular: Rate/Rhythm: regular rate and regular rhythm Heart Sounds: no murmur Extremities: no LE edema (resolved) Gastrointestinal (Abdomen): Inspection/Auscultation: abdomen normal to inspection, obese, normal bowel sounds, soft, nontender to palpation, only very mildly distended Musculoskeletal: Moves extremities spontaneously Neuro/ Psych: moves all extremities; no focal motor deficits Alert, awake and oriented x3, speech fluent, no facial asymmetry, answers questions appropriately Results & Data Results & Data ([facility]) Vital Signs (Past 12 Hours) Vital Signs Temp Pulse Pulse Resp BP Pulse Ox 12/05/19 09:43 99 12/05/19 09:11 67 12/05/19 07:41 59 L 12/05/19 07:40 37 C 56 L 17 127/60 98 12/05/19 03:09 36.9 C 53 L 18 117/62 98 12/05/19 01:05 37.3 C 58 L 20 117/50 L 98 12/04/19 22:00 80 20 100 Laboratory Results 12/05/19 12/05/19 12/04/19 Range/Units 07:12 06:49 20:18 Sodium 140 (136-145) mmol/L Potassium 4.1 (3.5-5.1) mmol/L Chloride 103 (98-107) mmol/L Carbon Dioxide 35 H (21-32) mmol/L Anion Gap 2.0 L (3-11) BUN 15 (7-18) mg/dl Creatinine 1.15 (0.6-1.4) mg/dl Est Cr Clr Drug Dosing 104.2 ml/min Est GFR ( Amer) 77.0 Est GFR (Non-Af Amer) 66.4 BUN/Creatinine Ratio 13.4 (10-20) Glucose 68 L (70-99) mg/dl POC Glucose 75 148 H (70-99) mg/dl Calcium 8.1 L (8.5-10.1) mg/dl Magnesium 1.9 (1.8-2.4) mg/dl 12/04/19 12/04/19 Range/Units 16:32 11:32 Sodium (136-145) mmol/L Potassium (3.5-5.1) mmol/L Chloride (98-107) mmol/L Carbon Dioxide (21-32) mmol/L Anion Gap (3-11) BUN (7-18) mg/dl Creatinine (0.6-1.4) mg/dl Est Cr Clr Drug Dosing ml/min Est GFR ( Amer) Est GFR (Non-Af Amer) BUN/Creatinine Ratio (10-20) Glucose (70-99) mg/dl POC Glucose 177 H 122 H (70-99) mg/dl Calcium (8.5-10.1) mg/dl Magnesium (1.8-2.4) mg/dl Medications Administered Current Inpatient Medications Acetaminophen (Tylenol) 650 mg PO Q4H PRN PRN Reason: Pain or Fever Stop: 12/30/19 01:27 Last Admin: 12/01/19 23:43 Dose: 650 mg Documented by: Albuterol (Ventolin Hfa) 2 puffs INH QID PRN PRN Reason: Shortness Of Breath Or Wheezing Stop: 12/30/19 01:27 Atorvastatin Calcium (Lipitor) 10 mg PO HS CAROL ANN Stop: 12/30/19 20:59 Last Admin: 12/04/19 20:32 Dose: 10 mg Documented by: Dextrose (Dextrose 50%) 25 - 50 ml IV UD PRN; Protocol PRN Reason: Hypoglycemia Protocol Stop: 12/31/19 07:59 Fluoxetine HCl (Prozac) 10 mg PO DAILY [facility] Stop: 12/30/19 08:59 Last Admin: 12/05/19 08:36 Dose: 10 mg Documented by: Fluoxetine HCl (Prozac) 20 mg PO DAILY CAROL ANN Stop: 12/30/19 08:59 Last Admin: 12/05/19 08:36 Dose: 20 mg Documented by: Furosemide (Lasix) 80 mg PO BID17 CAROL ANN Stop: 01/03/20 16:59 Last Admin: 12/05/19 08:35 Dose: 80 mg Documented by: Gabapentin (Neurontin) 100 mg PO TID [facility] Stop: 12/30/19 08:59 Last Admin: 12/05/19 08:36 Dose: 100 mg Documented by: Glucagon (Glucagen) 1 mg IM UD PRN; Protocol PRN Reason: Hypoglycemia Protocol Stop: 12/31/19 07:59 Glucose (Glucose 40%) 15 - 30 gm PO UD PRN; Protocol PRN Reason: Hypoglycemia Protocol Stop: 12/31/19 07:59 Glucose (Dex4 Glucose) 4 - 8 tabs PO UD PRN; Protocol PRN Reason: Hypoglycemia Protocol Stop: 12/31/19 07:59 Heparin Sodium (Porcine) (Heparin Sodium (Porcine)) 5,000 units SQ Q8 [facility] Stop: 12/30/19 05:59 Last Admin: 12/05/19 06:10 Dose: 5,000 units Documented by: Hydralazine HCl (Apresoline) 50 mg PO QID [facility] Stop: 12/30/19 08:59 Last Admin: 12/05/19 08:36 Dose: 50 mg Documented by: Insulin Aspart (Novolog Flexpen) 0 units SC ACHS [facility] Stop: 12/30/19 07:29 Last Admin: 12/05/19 08:35 Dose: 4 units Documented by: Insulin Glargine (Lantus Solostar Pen) 40 units SQ HS [facility] Stop: 01/04/20 20:59 Levothyroxine Sodium (Synthroid) 25 mcg PO DAILYBB [facility] Stop: 12/30/19 06:29 Last Admin: 12/05/19 06:10 Dose: 25 mcg Documented by: Levothyroxine Sodium (Synthroid) 200 mcg PO DAILYBB [facility] Stop: 12/30/19 06:29 Last Admin: 12/05/19 06:10 Dose: 200 mcg Documented by: Linaclotide (Linzess) 144 mcg PO DAILY [facility] Stop: 12/30/19 08:59 Last Admin: 12/05/19 09:08 Dose: 144 mcg Documented by: Metoprolol Succinate (Toprol Xl) 25 mg PO QAM [facility] Stop: 12/30/19 08:59 Last Admin: 12/05/19 09:11 Dose: 25 mg Documented by: Miscellaneous (Carbohydrates For Hypoglycemia) 15 - 30 gm PO UD PRN PRN Reason: Hypoglycemia Treatment Stop: 12/31/19 07:59 Last Admin: 12/01/19 07:55 Dose: 15 gm Documented by: Miscellaneous (Order Awaiting Action) 1 ea N/A QS [facility] Stop: 01/03/20 15:59 Last Admin: 12/05/19 07:49 Dose: Not Given Documented by: Nitroglycerin (Nitrostat) 0.4 mg SL UD PRN PRN Reason: Chest Pain Stop: 12/30/19 01:27 Nystatin (Mycostatin) 1 appln EXT PRN PRN PRN Reason: Affected Skin Folds Stop: 12/30/19 15:14 Last Admin: 12/02/19 21:28 Dose: 1 appln Documented by: Ondansetron HCl (Zofran) 4 mg IV Q6H PRN PRN Reason: Nausea Stop: 12/30/19 01:27 Pantoprazole Sodium (Protonix) 40 mg PO BID [facility] Stop: 12/30/19 08:59 Last Admin: 12/05/19 08:36 Dose: 40 mg Documented by: Prazosin HCl (Prazosin Hcl) 1 mg PO TID [facility] Stop: 12/30/19 08:59 Last Admin: 12/05/19 08:36 Dose: 1 mg Documented by: Umeclidinium/Vilanterol (Anoro Ellipta 62.5/25 Mcg Inh) 1 puffs INH DAILY [facility] Stop: 12/31/19 16:29 Last Admin: 12/05/19 08:37 Dose: 1 puffs Documented by:
--- NOTE | 2019-12-05 12:20 | Discharge Summary ---
Date of Service December 05, 2019 Admission HPI Per Admitting Provider This is a 63-year-old male with past medical history significant for type 2 diabetes, hypothyroidism, COPD, morbid obesity, obstructive sleep apnea, chronic diastolic failure and ambulatory dysfunction, who was brought in because of confusion and shortness of breath at home. The patient lives at [place] with his brother. The patient was here in May 2019 with episodes of falling at home and was found at that time to also have acute respiratory failure secondary to COPD, sleep apnea, CHF, and was discharged to [facility]. As per brother, he stayed at [facility] for about 4 months and was discharged about 1-1/2 months ago. At [facility], he was on BiPAP, but when he came back home, he was not on any BiPAP or CPAP and he is currently nonambulatory. He uses a bed frey and diapers. Since last 1 day, his appetite has been down and today he was confused, hallucinating, seemed short of breath and he was brought in here and he was placed on BiPAP. He is hemodynamically stable. Venous blood gas was okay. Rest of the labs are unremarkable except for BNP being 6000. Chest x-ray showed bilateral pulmonary congestion. CT of the head, preliminary report, no acute findings. The patient is somewhat drowsy but arousable. He is alert and oriented to name and place. Some slight confusion with the dates. He knows that it is 2019, but he thought it is October. He does not know why he was brought in here. Currently, denies any shortness of breath. As per the brother, he is having some mild cough. Denies any headache, denies any chest pain, denies abdominal pain. He says his bowel and bladder movements are okay. Denies any blood in stools or denies any burning micturition. Denies any fevers. Admission Exam Per Admitting Provider GENERAL: The patient is morbidly obese. VITAL SIGNS: Temperature 36.8, pulse 58, respiratory rate 16, blood pressure 117/65, oxygen 95% on BiPAP. HEENT: No pallor, no icterus. Pupils equal, round, reactive to light. NECK: No JVD, no neck masses seen. CARDIOVASCULAR: S1, S2 heard. Regular rate and rhythm, no murmur, no gallop. RESPIRATORY SYSTEM: Normal AP diameter. No accessory muscle use. Mild bibasilar crackles. No wheezing appreciated. ABDOMEN: Soft, bowel sounds present. Nontender. No guarding, no rigidity. CENTRAL NERVOUS SYSTEM: Alert and oriented to name and place. Knows this is 2020, but thinks this is May. Obeys simple commands. Moves extremities. EXTREMITIES: Bilateral lower extremity chronic skin changes and bilateral lower extremity edema present. SKIN: Dry. Principal Diagnosis Acute on chronic hypoxic and hypercapnic respiratory failure SAFIA/ OHS Acute on chronic diastolic heart failure Discharge Exam Physical Exam: Morbidly obese male, lying in bed comfortably without any acute distress Constitutional: well developed, well nourished, + morbidly obese; no acute distress Eyes: PERRL, EOMI, conjunctivae normal, anicteric sclerae ENMT: external ear and nose normal, oropharynx normal Neck: trachea midline, no thyromegaly Respiratory: normal respiratory effort; no respiratory distress Auscultation: + diminished lung sounds, mild occasional wheezes Cardiovascular: Rate/Rhythm: regular rate and regular rhythm Heart Sounds: no murmur Extremities: no LE edema (resolved) Gastrointestinal (Abdomen): Inspection/Auscultation: abdomen normal to inspection, obese, normal bowel sounds, soft, nontender to palpation, only very mildly distended Musculoskeletal: Moves extremities spontaneously Neuro/ Psych: moves all extremities; no focal motor deficits Alert, awake and oriented x3, speech fluent, no facial asymmetry, answers questions appropriately Discharge Data Allergies Allergy/AdvReac Type Severity Reaction Status Date / Time pollen extracts Allergy Mild sneezing/watery Verified 05/26/19 00:14 eyes Consultations 11/29/19 22:23 ED Decision to Admit Stat 11/30/19 01:28 Consult Case Management - Discharge Planning Routine 11/30/19 08:00 Consult Cardiology Routine 12/01/19 13:46 Consult Pulmonology Routine 12/01/19 16:14 Consult Case Management - Discharge Planning Routine Ordered Studies 11/29/19 20:43 CT head/brain wo con Urgent IMPRESSION: Exam mildly compromised by motion artifact. No acute intracranial findings. 11/30/19 01:28 US venous doppler LE BI Routine IMPRESSION: No DVT within the right or left lower extremity. CXR 11/29/19 IMPRESSION: 1. Cardiomegaly with right greater than left mixed interstitial and alveolar opacities suggestive of pulmonary edema. Superimposed pneumonitis be difficult to exclude. 2. Small pleural effusions. Hospital Course (1) Acute on chronic diastolic heart failure: Pt is morbidly obese with significant multiple comorbid medical conditions was admitted with increasing shortness of breath and confusion Has acute on chronic diastolic heart failure Acute on chronic hypoxic and hypercapnic respiratory failure Has been getting intravenous Lasix for diuresis and feeling much better since admission Echo - technically difficult study due to patient's body habitus. Grossly normal LV chamber size. Grossly normal LV systolic function. Grade 2 diastolic dysfunction. Poorly visualized valvular structures without any significant stenosis or regurgitation by Doppler. Appreciate cardiology evaluation and recommendation Has been diuresing well Clinically much better, will switched to his home p.o. Lasix yesterday Plan to discharge home today, on home dose of diuretics (2) SAFIA (obstructive sleep apnea): / OHS History of SAFIA and is supposed to have sleep study as an outpatient Will need to have a sleep study as an outpatient as soon as possible Nocturnal pulse oximetry obtained and showed significant desaturation Will need to continue oxygen at nighttime Appreciate pulmonary input and recommendation Will need BiPAP on discharge - Case management aware. BiPAP approved, to be delivered to his home. Outpatient appointment with pulmonary scheduled for 12/09/19. (3) COPD (chronic obstructive pulmonary disease): Acute on chronic hypoxic and hypercapnic respiratory failure no acute COPD exacerbation at this time We will continue his usual COPD medications except as below Pulmonary consulted, recommend to discharge on Anoro (instead of home Breo) Keep saturation between 88 to 92%, continue BiPAP nightly and as needed for shortness of breath Follows with [facility] pulmonology, appointment scheduled for December 08, with Dr. Rogers (4) Acute confusion: Has had confusion on admission, now resolved Likely secondary to acute on chronic diastolic heart failure and likely complicated by hypoxemia and hypercarbia Need for BiPAP Confusion now resolved (5) Diabetes: Patient had some lower blood sugar readings in the morning, Lantus decreased to 40 units. Patient will need to follow-up with his primary care doctor, and Lantus dose will likely need to be further adjusted. (6) Morbid obesity: BMI 56 Counseled on lifestyle modification will need to follow-up with his primary care doctor Total Time Total Time Spent Total Time Spent (In Minutes): 40 Total Time Includes: Examination of the Patient, Discharge Planning, Medication Reconciliation and Communication With Other Providers Discharge Plan Discharge Items Patient Disposition: Home - Self-Care Reason For Visit: SOB,CONFUSION Discharge Diagnosis: Acute on chronic hypoxic and hypercapnic respiratory failure SAFIA/ OHS Acute on chronic diastolic heart failure Activity: Per Instructions section Non-emergency contact: Primary Care Provider and Egyptologist Call non-emergency contact if: you have any medication questions and your symptoms worsen Follow-up/Referrals: Junior Rogers MD [Physician] - 12/09/19 3:00 pm (Pulmonary [facility] [address] [facility] 12/09/2019 at 3 PM, please arrive at 2:45 PM. ) Kanu Gould [Primary Care Provider] - 12/08/19 3:00 pm (12/08/2019 3:00 PM Provider Susanne Macias [facility] ) Diet: Carb Consistent or DM2 and Heart Healthy Add Attending Provider Instructions: Follow-up with your primary care provider on December 07. Your blood sugar was lower here, and therefore insulin was lowered as well. Recommend to use Lantus 40 units, discuss with your primary care provider if this needs to be adjusted further. While you were in the hospital, you were evaluated by vp public relations/lung doctor. It was determined that you do need to use BiPAP when you sleep or anytime during the day if short of breath or napping. BiPAP is being set up and you will be able to use it at home. Lung doctor also recommended to change your inhalers. Stop using Brio inhaler, and start using Anoro inhaler - Anoro prescription was sent to your pharmacy. You will need to follow-up with vp public relations/lung doctor. The appointment was scheduled for you for December 08. 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 * Use the same scale. * Wear the same amount of clothing. * Write your weight down on a chart. * Call your Primary Care doctor if you gain more than 2-3 pounds in 1-2 days. MEDICATIONS * Use this discharge instruction sheet for medication instructions. * Take your medications at the time your doctor ordered. * Do not skip a dose of your medicines. * If you miss a dose of medicine, take it as soon as possible, but DO NOT DOUBLE A DOSE. * Read your medicine information when you get home. * Know all of the side effects of your medicine. If in doubt, ask your pharmacist * Call your Primary Care doctor's office if you have any side effects. * Be sure all of your doctors know what medicine and herbs you take (including cold, flu, and herbal medicine). Take the following with you to your follow-up doctor appointments: * Weight Chart * Medication List * List of questions Do not drink excessive alcohol, beer or wine. Pending Studies at Discharge: No Stand-Alone Forms: My [facility], Smoking Cessation Medications and DC Order Prescriptions: New Anoro Ellipta 62.5-25 mcg/actuation Blister With Device 1 ea inhalation DAILY Qty: 14 RF: 0 Continued pantoprazole 40 mg tablet,delayed release (DR/EC) 40 mg PO BID RF: 0 atorvastatin 10 mg tablet 10 mg PO HS RF: 0 levothyroxine 25 mcg tablet 25 mcg PO QAM RF: 0 levothyroxine 200 mcg tablet 200 mcg PO QAM RF: 0 metoprolol succinate 25 mg tablet extended release 24 hr 25 mg PO QAM RF: 0 gabapentin 100 mg Capsule 100 mg PO TID RF: 0 prazosin 1 mg Capsule 1 mg PO TID RF: 0 fluoxetine 10 mg Tablet 10 mg PO DAILY RF: 0 insulin aspart U-100 [Novolog U-100 Insulin aspart] 100 unit/mL Solution 1 sliding scale dose SUBCUT TID RF: 0 fluoxetine 20 mg Tablet 20 mg PO DAILY RF: 0 hydralazine 50 mg Tablet 50 mg PO QID RF: 0 Linzess 145 mcg Capsule 145 mcg PO DAILY RF: 0 furosemide [Lasix] 80 mg Tablet 80 mg PO BID RF: 0 albuterol sulfate 90 mcg/actuation Hfa Aerosol Inhaler 2 puff INHALATION QID PRN (Reason: Shortness Of Breath Or Wheezing) RF: 0 Changed Lantus Solostar U-100 Insulin 100 unit/mL (3 mL) Insulin Pen 40 unit SUBCUT HS Qty: 0 RF: 0 Discontinued Breo Ellipta 100 mcg 1 puff inhalation DAILY RF: 0 Discharge Orders: Discharge Order (Routine); Ordered 12/05/19 Ordered By: Juan Rodriguez Admission Data Admit Date/Time: 11/29/19 23:53 Attending Provider: Juan Rodriguez Admit Provider: Jamel Ingram Primary Care Provider: Kanu Gould Other Providers: David Rebolledo ; Jamel Ingram ; Tan Dukes ; Lauro Nielson ; Dariel [place] ; Olivier Suazo ; Mayo Rodrigues ; Rod Conn ; Kesha Arenas ; Jaimie Romero ; Cosmo Ceballos ; Junior Rogers
[2019-12-05] MEDS ORDERED: INSULIN GLARGINE SOLOSTAR 100 UNITS/ML 3 ML PEN SQ SCH (21:00)
== END 2019-12-05 14:50 | disposition home or self-care (01) | DRG 189 ==
LOC: ED 20:12 → SUATTDRO 23:53 → 2S 11-30 → 2N 12-05 07:30

== ENCOUNTER 2020-03-24 18:42 | Inpatient (IN) ==
[~2020-03-24 18:42] MED LIST changes: -CPC PO; -GABA-112 PO; -GFNSR600 PO; -INSHI7030 SC; -IPRASOL4 INH; -KFL500 PO; -LEVO200T PO; -LEVO50TA6 PO; -LPT10 PO; -MLXESC PO; -MOMLX PO; -MRLP17X PO; -NCDT21 TD; -PRD20 PO; -PRLSR20 PO; +RAPID SEQUENCE INDUCTION BAG ONE; -SALI0.6510; -SPRIN INH; -SYMIN INH
[2020-03-24] MEDS ORDERED: PIPERACILLIN/TAZOBACTAM 4.5 GM/120 ML BAG IV ONE (18:53)
[2020-03-24] MEDS ORDERED: ALBUTEROL 0.083% NEBU SOLN 3 ML VIAL NEB STA (18:54)
[2020-03-24] MEDS ORDERED: DEXAMETHASONE SOD INJ 10 MG/ML VIAL IV ONE (18:55)
--- NOTE | 2020-03-24 18:58 | Emergency Department Note ---
Impression & Plan Acute respiratory failure with hypoxia, Respiratory failure ED Provider Note NAME: CROW BAUER AGE: 64 SEX: M : 1955 ARRIVES VIA: Ambulance INFORMANT: Patient, EMS ED PROVIDER(S): Jefferson Lawrence DO CHIEF COMPLAINT: Shortness of breath HPI: Patient is a 64-year-old gentleman morbidly obese with a past medical history of COPD, tobacco abuse, hypertension, respiratory failure and obstructive sleep apnea presents the ER for shortness of breath. Patient at this time denies any headache, chest pain, belly pain, nausea vomiting or diarrhea. No urinary symptoms. Patient notes that shortness of breath has been there for about 2 days. Per report from EMS he has stopped wearing his CPAP at night. He has been more confused over the past 2 days. He was found to be hypoglycemic with blood sugars in the 20s. He was given IV dextrose prior to arrival. No change in mentation. ROS: See above HPI for pertinent positives & negatives. A total of 10 systems reviewed and were otherwise negative but limited secondary to mentation. PAST MEDICAL HISTORY:See Below PAST SURGICAL HISTORY:See Below FAMILY HISTORY:See Below SOCIAL HISTORY:See Below HOME MEDICATIONS:See Below ALLERGIES:See Below VITALS:See Below PHYSICAL EXAMINATION: GENERAL: Sitting up in bed, alert falls asleep quickly, morbidly obese, dyspneic with conversation, on 6 L nasal cannula EYE EXAM: normal conjunctiva. PERRL and EOM's grossly intact. OROPHARYNX: no exudate, no erythema, lips, buccal mucosa, and tongue normal and mucous membranes are moist NECK: supple, no nuchal rigidity, no adenopathy, non-tender LUNGS: Clear to auscultation. Normal chest wall mechanics HEART: no murmurs, S1 normal and S2 normal ABDOMEN: abdomen soft, non-tender, normo-active bowel sounds, no masses, no rebound or guarding. BACK: Back is symmetrical on inspection and there is no deformity, no midline tenderness, no CVA tenderness. SKIN: Multiple rashes and skin folds UPPER EXTREMITIES: upper extremities are grossly normal. LOWER EXTREMITIES: No pitting edema. NEURO EXAM: Awake alert oriented to person not year or place, moving all extremities, nonfocal MEDICAL DECISION MAKING: Patient is a 64-year-old male morbidly obese with past medical history of diabetes the presents the ER for confusion. Brought in by EMS. He was found to be significantly hypoxic in the high 70s/low 80s on room air. He was placed on 6 L. He was switched to BiPAP. Blood sugars dropped for EMS as he was found to be in the 20s. He was given dextrose. Upon arrival he was found to be in the 60s. He was placed on a D10 drip. Labs show no significant leukocytosis and a mild anemia at 9.6. INR was unremarkable. VBG with pH 7.35 and a CO2 of 65. BMP with creatinine 1.7 fairly consistent with previous. LFTs bilirubin magnesium was unremarkable. TSH was unremarkable. UA did have leukocytes and white cells and +4 bacteria. Patient was covered with Zosyn initially upon arr ival. COVID was negative. He was given IV steroids as well as the IV Zosyn upon arrival. He was not given fluids due to the chest x-ray suggesting CHF. CT head with no significant acute pathology. Patient was updated and discussed the hospitalist and patient was admitted for further work-up. Triage Nursing notes reviewed. Prior medical records reviewed Vital Signs: reviewed and remarkable for hypoxic, tachycardic Differential diagnosis: Differential diagnoses includes but is not limited to pneumonia, bronchitis, COPD/Asthma exacerbation, pneumothorax, pulmonary embolism, congestive heart failure, acute coronary syndrome ER treatment provided: See below Diagnostics interpreted by me: ECG: A. fib rate of 60 Low voltage Left axis Left bundle branch block Normal QTC T wave flattening in the high lateral leads Cardiac Monitoring: An order was placed for continuous cardiac monitoring. The monitor shows a rate of 70 with sinus rhythm. Laboratory studies: As stated above and show below. Imaging studies: CT head showed no acute pathology Portable AP upright 1 view of the chest shows CHF Consultation(s): Discussed with hospitalist for further evaluation ED COURSE: Procedures: none Critical Care: I have personally spent 90 minutes of critical care time in the direct management of this patient. This includes bedside care, interpretation of diagnostic studies, and testing, discussion with consultants, patient, and family members, and other required patient management activities. This 90 malika maurilio is in excess of all separately billable procedures. Past Med/Surg History Medical History (Updated 03/25/20 @ 00:12 by Jefferson Lawrence DO) Anemia Chronic diastolic heart failure COPD (chronic obstructive pulmonary disease) inhalers daily/prn and oxygen 2L n/c Diabetes mellitus, type 2 Elevated troponin I level Graves disease History of gastric ulcer Hyperlipidemia Hypertension Hypothyroidism Hypoxia Left bundle branch block chronic Morbid obesity with BMI of 50.0-59.9, adult Obesity hypoventilation syndrome On home oxygen therapy 2L N/C at all times SAFIA (obstructive sleep apnea) cpap--2L oxygen Surgical History [place] [facility] [place] History of colonoscopy History of endoscopic sinus surgery History of esophagogastroduodenoscopy (EGD) History of tooth extraction History of wisdom tooth extraction S/P correction of deviated nasal septum Family History Mother Diabetes Hypertension Brother , dies at 44 yo from [place] Heart disease Other No family history of adverse response to anesthesia Social History (Updated 03/24/20 @ 21:12 by Isabel Talbert PA-C) Smoking Status: Unknown if ever smoked Tobacco Type: Cigarettes Years Smoked: 60; Cigarettes Per Day: 4; Second Hand Exposure: No; Preferred Language: Luxembourgish Communication Ability: Effective Communication Ability Comment: mental 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 Beliefs That Will Affect Care: None marital status: Single Current Living Situation: Other Current Living Situation Comment: Patient states "with my mommy and daddy." current occupational status: unemployed Feels Safe at Home: Yes Assistive Devices: CPAP and Oxygen - Continuous Allergies Allergies Allergy/AdvReac Type Severity Reaction Status Date / Time pollen extracts Allergy Mild sneezing/watery Verified 05/26/19 00:14 eyes Home Meds Home Medications Medication Instructions Recorded Confirmed atorvastatin 10 mg PO HS 10/24/18 03/24/20 levothyroxine 25 mcg PO QAM 10/24/18 03/24/20 levothyroxine 200 mcg PO QAM 10/24/18 03/24/20 metoprolol succinate 25 mg PO QAM 10/24/18 03/24/20 pantoprazole 40 mg tablet,delayed 40 mg PO BID 02/11/19 03/24/20 release gabapentin 100 mg PO TID 04/14/19 03/24/20 Linzess 145 mcg PO DAILYBB 11/29/19 03/24/20 albuterol sulfate 2 puff INHALATION QID PRN 11/29/19 03/24/20 fluoxetine 10 mg PO DAILY 11/29/19 03/24/20 fluoxetine 20 mg PO DAILY 11/29/19 03/24/20 furosemide [Lasix] 80 mg PO BID 11/29/19 03/24/20 hydralazine 50 mg PO QID 11/29/19 03/24/20 insulin aspart U-100 [Novolog 1 sliding scale dose SUBCUT TID 11/29/19 03/24/20 U-100 Insulin aspart] Previous Rx's Medication Instructions Recorded Lantus Solostar U-100 Insulin 40 unit SUBCUT HS #0 ml 12/05/19 umeclidinium-vilanterol [Anoro 1 ea INHALATION DAILY #14 ea 12/05/19 Ellipta] Results & Data (ED) Vital Signs Vital Signs - 24 hr 03/24/20 18:53 03/24/20 19:00 03/24/20 19:06 Temperature 36.5 C Temperature Source Oral Pulse Rate 55 L 60 Pulse Rate [Left Finger] Respiratory Rate 24 18 Respiratory Effort / Characteristics Spontaneous Labored Short of Breath Respiratory Depth Deep Respiratory Pattern Blood Pressure 134/60 Blood Pressure [Left Arm] Blood Pressure Mean 79 Blood Pressure Mean [Left Arm] Blood Pressure Position Sitting Blood Pressure Position [Left Arm] Pulse Oximetry 100 100 99 Oxygen Delivery Method BiPAP BiPAP Oxygen Flow Rate 6 Fraction of Inspired Oxygen 40 40 SaO2/FiO2 Ratio Sepsis Recent Fever Within 48 Hours No Sepsis New/Unexplained Change in Mental Status Yes Sepsis Action Taken by Nursing Previously Notified 03/24/20 19:34 03/24/20 20:14 03/24/20 20:36 Temperature Temperature Source Pulse Rate Pulse Rate [Left Finger] 57 L 66 Respiratory Rate 19 20 Respiratory Effort / Characteristics Non-Labored Spontaneous Spontaneous Respiratory Depth Normal Normal Respiratory Pattern Regular Blood Pressure Blood Pressure [Left Arm] 135/65 124/52 L Blood Pressure Mean Blood Pressure Mean [Left Arm] 88 76 Blood Pressure Position Blood Pressure Position [Left Arm] Lying Lying Pulse Oximetry 100 99 Oxygen Delivery Method BiPAP BiPAP BiPAP Oxygen Flow Rate Fraction of Inspired Oxygen 40 SaO2/FiO2 Ratio 250 Sepsis Recent Fever Within 48 Hours Sepsis New/Unexplained Change in Mental Status Sepsis Action Taken by Nursing 03/24/20 21:01 03/24/20 21:29 03/24/20 21:34 Temperature Temperature Source Pulse Rate 63 Pulse Rate [Left Finger] 53 L 77 Respiratory Rate 20 20 17 Respiratory Effort / Characteristics Spontaneous Non-Labored Spontaneous Spontaneous Respiratory Depth Normal Normal Normal Respiratory Pattern Blood Pressure Blood Pressure [Left Arm] 117/66 128/58 L Blood Pressure Mean Blood Pressure Mean [Left Arm] 83 81 Blood Pressure Position Blood Pressure Position [Left Arm] Lying Lying Pulse Oximetry 98 99 97 Oxygen Delivery Method BiPAP BiPAP Oxygen Flow Rate 30 Fraction of Inspired Oxygen 40 30 SaO2/FiO2 Ratio 245 Sepsis Recent Fever Within 48 Hours Sepsis New/Unexplained Change in Mental Status Sepsis Action Taken by Nursing Laboratory Data Result diagrams: 03/24/20 18:58 03/24/20 18:58 Lab Results 03/24/20 03/24/20 03/24/20 Range/Units 18:46 18:58 18:58 WBC 5.78 (4.8-10.8) K/uL RBC 3.56 L (4.7-6.1) M/uL Hgb 9.6 L (14.0-18.0) g/dL POC Hgb (14.0-18.0) g/dl Hct 32.5 L (42-52) % POC Hct (42-52) % MCV 91.3 (80-100) fL MCH 27.0 (25-34) pg MCHC 29.5 L (32-36) g/dL RDW Std Deviation 59.1 H (36.4-46.3) fL RDW Coeff of Neena 17.7 H (11.5-14.5) % Plt Count 200 (130-400) K/uL MPV 9.7 (7.4-10.4) fL Immature Gran % (Auto) 0.3 % Neut % (Auto) 71.0 % Lymph % (Auto) 19.0 % [place] % (Auto) 8.3 % Eos % (Auto) 0.9 % Baso % (Auto) 0.5 % Neut # (Auto) 4.10 (1.4-6.5) K/uL Lymph # (Auto) 1.10 L (1.2-3.4) K/uL [place] # (Auto) 0.48 (0.11-0.59) K/uL Eos # (Auto) 0.05 (0-0.5) K/uL Baso # (Auto) 0.03 (0-0.2) K/uL Immature Gran # (Auto) 0.02 (0.00-0.02) K/uL PT (9.0-12.0) Seconds INR (0.9-1.1) APTT (21.0-31.0) Seconds PTT Ratio ABG pH (7.35-7.45) ABG pCO2 (35-46) mmHg ABG pO2 (80-95) mmHg ABG HCO3 (19-24) mmol/L ABG O2 Saturation (90-95) % ABG Base Excess (-9-1.8) mEq/L Raji Test (Pos) VBG pH 7.35 L (7.36-7.41) VBG pCO2 62 H (38-50) mmHg VBG pO2 40 mmHg VBG HCO3 34 mmol/L VBG O2 Saturation 68.2 % VBG Base Excess 6.5 mEq/L Barometric Pressure 727.4 mm/Hg Oxygen Given POC Sodium (135-144) mmol/L Sodium (136-145) mmol/L POC Potassium (3.3-5.0) mmol/L Potassium (3.5-5.1) mmol/L POC Chloride (101-112) mmol/L Chloride (98-107) mmol/L Carbon Dioxide (21-32) mmol/L POC Total CO2 (24-31) mmol/L Anion Gap (3-11) POC Anion Gap (16-25) mmol/L POC BUN (7-18) mg/dl BUN (7-18) mg/dl Creatinine (0.6-1.4) mg/dl POC Creatinine (0.6-1.3) mg/dl Est Cr Clr Drug Dosing ml/min Est GFR ( Amer) Est GFR (Non-Af Amer) BUN/Creatinine Ratio (10-20) Glucose (70-99) mg/dl POC Glucose 89 (70-99) mg/dl POC Glucose (other) (70-99) mg/dl Lactate (0.4-2.0) mmol/L Calcium (8.5-10.1) mg/dl POC Ioniz Calcium Pam (1.12-1.32) mmol/l Magnesium (1.8-2.4) mg/dl Total Bilirubin (0.2-1) mg/dl AST (15-37) U/L ALT (12-78) U/L Alkaline Phosphatase (45-117) U/L Ammonia (11-32) umol/L Total Protein (6.4-8.2) gm/dl Albumin (3.4-5.0) gm/dl Globulin (2.5-4.0) gm/dl Albumin/Globulin Ratio (0.9-2) TSH (0.300-4.500) uIu/ml Urine Color Urine Appearance (Clear) Urine pH (4.5-7.5) Ur Specific [place] (1.000-1.030) Urine Protein (Negative) Urine Glucose (UA) (Negative) Urine Ketones (Negative) Urine Blood (Negative) Urine Nitrite (Negative) Urine Bilirubin (Negative) Urine Urobilinogen (Negative) Ur Leukocyte Esterase (Negative) Urine WBC (Auto) (0-5) /hpf Urine RBC (Auto) (0-4) /hpf U Hyaline Cast (Auto) (0-5) /lpf U Epithel Cells (Auto) (0-5) /lpf Urine Bacteria (Auto) (Negative) Granular Casts (0) /lpf Urine Yeast COVID-19 Eval Order COVID-19 PCR (Negative) 03/24/20 03/24/20 03/24/20 Range/Units 18:58 18:58 18:58 WBC (4.8-10.8) K/uL RBC (4.7-6.1) M/uL Hgb (14.0-18.0) g/dL POC Hgb (14.0-18.0) g/dl Hct (42-52) % POC Hct (42-52) % MCV (80-100) fL MCH (25-34) pg MCHC (32-36) g/dL RDW Std Deviation (36.4-46.3) fL RDW Coeff of Neena (11.5-14.5) % Plt Count (130-400) K/uL MPV (7.4-10.4) fL Immature Gran % (Auto) % Neut % (Auto) % Lymph % (Auto) % [place] % (Auto) % Eos % (Auto) % Baso % (Auto) % Neut # (Auto) (1.4-6.5) K/uL Lymph # (Auto) (1.2-3.4) K/uL [place] # (Auto) (0.11-0.59) K/uL Eos # (Auto) (0-0.5) K/uL Baso # (Auto) (0-0.2) K/uL Immature Gran # (Auto) (0.00-0.02) K/uL PT 11.9 (9.0-12.0) Seconds INR 1.1 (0.9-1.1) APTT 25.9 (21.0-31.0) Seconds PTT Ratio 0.9 ABG pH (7.35-7.45) ABG pCO2 (35-46) mmHg ABG pO2 (80-95) mmHg ABG HCO3 (19-24) mmol/L ABG O2 Saturation (90-95) % ABG Base Excess (-9-1.8) mEq/L Raji Test (Pos) VBG pH (7.36-7.41) VBG pCO2 (38-50) mmHg VBG pO2 mmHg VBG HCO3 mmol/L VBG O2 Saturation % VBG Base Excess mEq/L Barometric Pressure mm/Hg Oxygen Given POC Sodium (135-144) mmol/L Sodium 139 (136-145) mmol/L POC Potassium (3.3-5.0) mmol/L Potassium 4.7 (3.5-5.1) mmol/L POC Chloride (101-112) mmol/L Chloride 103 (98-107) mmol/L Carbon Dioxide 35 H (21-32) mmol/L POC Total CO2 (24-31) mmol/L Anion Gap 1.0 L (3-11) POC Anion Gap (16-25) mmol/L POC BUN (7-18) mg/dl BUN 32 H (7-18) mg/dl Creatinine 1.77 H (0.6-1.4) mg/dl POC Creatinine (0.6-1.3) mg/dl Est Cr Clr Drug Dosing 75.1 ml/min Est GFR ( Amer) 45.4 Est GFR (Non-Af Amer) 39.2 BUN/Creatinine Ratio 18.2 (10-20) Glucose 71 (70-99) mg/dl POC Glucose (70-99) mg/dl POC Glucose (other) (70-99) mg/dl Lactate 1.3 (0.4-2.0) mmol/L Calcium 8.8 (8.5-10.1) mg/dl POC Ioniz Calcium Pam (1.12-1.32) mmol/l Magnesium 2.4 (1.8-2.4) mg/dl Total Bilirubin 0.3 (0.2-1) mg/dl AST 32 (15-37) U/L ALT 17 (12-78) U/L Alkaline Phosphatase 101 (45-117) U/L Ammonia (11-32) umol/L Total Protein 8.8 H (6.4-8.2) gm/dl Albumin 2.7 L (3.4-5.0) gm/dl Globulin 6.1 H (2.5-4.0) gm/dl Albumin/Globulin Ratio 0.4 L (0.9-2) TSH 4.030 (0.300-4.500) uIu/ml Urine Color Urine Appearance (Clear) Urine pH (4.5-7.5) Ur Specific [place] (1.000-1.030) Urine Protein (Negative) Urine Glucose (UA) (Negative) Urine Ketones (Negative) Urine Blood (Negative) Urine Nitrite (Negative) Urine Bilirubin (Negative) Urine Urobilinogen (Negative) Ur Leukocyte Esterase (Negative) Urine WBC (Auto) (0-5) /hpf Urine RBC (Auto) (0-4) /hpf U Hyaline Cast (Auto) (0-5) /lpf U Epithel Cells (Auto) (0-5) /lpf Urine Bacteria (Auto) (Negative) Granular Casts (0) /lpf Urine Yeast COVID-19 Eval Order COVID-19 PCR (Negative) 03/24/20 03/24/20 03/24/20 Range/Units 19:12 19:15 19:15 WBC (4.8-10.8) K/uL RBC (4.7-6.1) M/uL Hgb (14.0-18.0) g/dL POC Hgb 11.2 L (14.0-18.0) g/dl Hct (42-52) % POC Hct 33 L (42-52) % MCV (80-100) fL MCH (25-34) pg MCHC (32-36) g/dL RDW Std Deviation (36.4-46.3) fL RDW Coeff of Neena (11.5-14.5) % Plt Count (130-400) K/uL MPV (7.4-10.4) fL Immature Gran % (Auto) % Neut % (Auto) % Lymph % (Auto) % [place] % (Auto) % Eos % (Auto) % Baso % (Auto) % Neut # (Auto) (1.4-6.5) K/uL Lymph # (Auto) (1.2-3.4) K/uL [place] # (Auto) (0.11-0.59) K/uL Eos # (Auto) (0-0.5) K/uL Baso # (Auto) (0-0.2) K/uL Immature Gran # (Auto) (0.00-0.02) K/uL PT (9.0-12.0) Seconds INR (0.9-1.1) APTT (21.0-31.0) Seconds PTT Ratio ABG pH (7.35-7.45) ABG pCO2 (35-46) mmHg ABG pO2 (80-95) mmHg ABG HCO3 (19-24) mmol/L ABG O2 Saturation (90-95) % ABG Base Excess (-9-1.8) mEq/L Raji Test (Pos) VBG pH (7.36-7.41) VBG pCO2 (38-50) mmHg VBG pO2 mmHg VBG HCO3 mmol/L VBG O2 Saturation % VBG Base Excess mEq/L Barometric Pressure mm/Hg Oxygen Given POC Sodium 141 (135-144) mmol/L Sodium (136-145) mmol/L POC Potassium 4.8 (3.3-5.0) mmol/L Potassium (3.5-5.1) mmol/L POC Chloride 97 L (101-112) mmol/L Chloride (98-107) mmol/L Carbon Dioxide (21-32) mmol/L POC Total CO2 30 (24-31) mmol/L Anion Gap (3-11) POC Anion Gap 20.0 (16-25) mmol/L POC BUN 33 H (7-18) mg/dl BUN (7-18) mg/dl Creatinine (0.6-1.4) mg/dl POC Creatinine 1.6 H (0.6-1.3) mg/dl Est Cr Clr Drug Dosing ml/min Est GFR ( Amer) Est GFR (Non-Af Amer) BUN/Creatinine Ratio (10-20) Glucose (70-99) mg/dl POC Glucose (70-99) mg/dl POC Glucose (other) 72 (70-99) mg/dl Lactate (0.4-2.0) mmol/L Calcium (8.5-10.1) mg/dl POC Ioniz Calcium Pam 1.22 (1.12-1.32) mmol/l Magnesium (1.8-2.4) mg/dl Total Bilirubin (0.2-1) mg/dl AST (15-37) U/L ALT (12-78) U/L Alkaline Phosphatase (45-117) U/L Ammonia (11-32) umol/L Total Protein (6.4-8.2) gm/dl Albumin (3.4-5.0) gm/dl Globulin (2.5-4.0) gm/dl Albumin/Globulin Ratio (0.9-2) TSH (0.300-4.500) uIu/ml Urine Color Urine Appearance (Clear) Urine pH (4.5-7.5) Ur Specific [place] (1.000-1.030) Urine Protein (Negative) Urine Glucose (UA) (Negative) Urine Ketones (Negative) Urine Blood (Negative) Urine Nitrite (Negative) Urine Bilirubin (Negative) Urine Urobilinogen (Negative) Ur Leukocyte Esterase (Negative) Urine WBC (Auto) (0-5) /hpf Urine RBC (Auto) (0-4) /hpf U Hyaline Cast (Auto) (0-5) /lpf U Epithel Cells (Auto) (0-5) /lpf Urine Bacteria (Auto) (Negative) Granular Casts (0) /lpf Urine Yeast COVID-19 Eval Order Covid19 Done at [facility] COVID-19 PCR NEGATIVE (Negative) 03/24/20 03/24/20 03/24/20 Range/Units 19:19 19:58 20:05 WBC (4.8-10.8) K/uL RBC (4.7-6.1) M/uL Hgb (14.0-18.0) g/dL POC Hgb (14.0-18.0) g/dl Hct (42-52) % POC Hct (42-52) % MCV (80-100) fL MCH (25-34) pg MCHC (32-36) g/dL RDW Std Deviation (36.4-46.3) fL RDW Coeff of Neena (11.5-14.5) % Plt Count (130-400) K/uL MPV (7.4-10.4) fL Immature Gran % (Auto) % Neut % (Auto) % Lymph % (Auto) % [place] % (Auto) % Eos % (Auto) % Baso % (Auto) % Neut # (Auto) (1.4-6.5) K/uL Lymph # (Auto) (1.2-3.4) K/uL [place] # (Auto) (0.11-0.59) K/uL Eos # (Auto) (0-0.5) K/uL Baso # (Auto) (0-0.2) K/uL Immature Gran # (Auto) (0.00-0.02) K/uL PT (9.0-12.0) Seconds INR (0.9-1.1) APTT (21.0-31.0) Seconds PTT Ratio ABG pH (7.35-7.45) ABG pCO2 (35-46) mmHg ABG pO2 (80-95) mmHg ABG HCO3 (19-24) mmol/L ABG O2 Saturation (90-95) % ABG Base Excess (-9-1.8) mEq/L Raji Test (Pos) VBG pH (7.36-7.41) VBG pCO2 (38-50) mmHg VBG pO2 mmHg VBG HCO3 mmol/L VBG O2 Saturation % VBG Base Excess mEq/L Barometric Pressure mm/Hg Oxygen Given POC Sodium (135-144) mmol/L Sodium (136-145) mmol/L POC Potassium (3.3-5.0) mmol/L Potassium (3.5-5.1) mmol/L POC Chloride (101-112) mmol/L Chloride (98-107) mmol/L Carbon Dioxide (21-32) mmol/L POC Total CO2 (24-31) mmol/L Anion Gap (3-11) POC Anion Gap (16-25) mmol/L POC BUN (7-18) mg/dl BUN (7-18) mg/dl Creatinine (0.6-1.4) mg/dl POC Creatinine (0.6-1.3) mg/dl Est Cr Clr Drug Dosing ml/min Est GFR ( Amer) Est GFR (Non-Af Amer) BUN/Creatinine Ratio (10-20) Glucose (70-99) mg/dl POC Glucose 61 L* 76 (70-99) mg/dl POC Glucose (other) (70-99) mg/dl Lactate (0.4-2.0) mmol/L Calcium (8.5-10.1) mg/dl POC Ioniz Calcium Pam (1.12-1.32) mmol/l Magnesium (1.8-2.4) mg/dl Total Bilirubin (0.2-1) mg/dl AST (15-37) U/L ALT (12-78) U/L Alkaline Phosphatase (45-117) U/L Ammonia (11-32) umol/L Total Protein (6.4-8.2) gm/dl Albumin (3.4-5.0) gm/dl Globulin (2.5-4.0) gm/dl Albumin/Globulin Ratio (0.9-2) TSH (0.300-4.500) uIu/ml Urine Color Dark Yellow Urine Appearance Cloudy A (Clear) Urine pH 5.5 (4.5-7.5) Ur Specific [place] 1.017 (1.000-1.030) Urine Protein 1+ H (Negative) Urine Glucose (UA) Negative (Negative) Urine Ketones Negative (Negative) Urine Blood 2+ H (Negative) Urine Nitrite Negative (Negative) Urine Bilirubin Negative (Negative) Urine Urobilinogen Negative (Negative) Ur Leukocyte Esterase 3+ H (Negative) Urine WBC (Auto) >30 H (0-5) /hpf Urine RBC (Auto) >30 H (0-4) /hpf U Hyaline Cast (Auto) 1-5 (0-5) /lpf U Epithel Cells (Auto) 5-10 H (0-5) /lpf Urine Bacteria (Auto) 4+ H (Negative) Granular Casts 1-5 H (0) /lpf Urine Yeast Not Reportable COVID-19 Eval Order COVID-19 PCR (Negative) 03/24/20 03/24/20 03/24/20 Range/Units 20:50 20:54 20:54 WBC (4.8-10.8) K/uL RBC (4.7-6.1) M/uL Hgb (14.0-18.0) g/dL POC Hgb (14.0-18.0) g/dl Hct (42-52) % POC Hct (42-52) % MCV (80-100) fL MCH (25-34) pg MCHC (32-36) g/dL RDW Std Deviation (36.4-46.3) fL RDW Coeff of Neena (11.5-14.5) % Plt Count (130-400) K/uL MPV (7.4-10.4) fL Immature Gran % (Auto) % Neut % (Auto) % Lymph % (Auto) % [place] % (Auto) % Eos % (Auto) % Baso % (Auto) % Neut # (Auto) (1.4-6.5) K/uL Lymph # (Auto) (1.2-3.4) K/uL [place] # (Auto) (0.11-0.59) K/uL Eos # (Auto) (0-0.5) K/uL Baso # (Auto) (0-0.2) K/uL Immature Gran # (Auto) (0.00-0.02) K/uL PT (9.0-12.0) Seconds INR (0.9-1.1) APTT (21.0-31.0) Seconds PTT Ratio ABG pH 7.34 L (7.35-7.45) ABG pCO2 64 H (35-46) mmHg ABG pO2 145 H (80-95) mmHg ABG HCO3 34 H (19-24) mmol/L ABG O2 Saturation 98.4 H (90-95) % ABG Base Excess 6.7 H (-9-1.8) mEq/L Raji Test POS (Pos) VBG pH (7.36-7.41) VBG pCO2 (38-50) mmHg VBG pO2 mmHg VBG HCO3 mmol/L VBG O2 Saturation % VBG Base Excess mEq/L Barometric Pressure 728.3 mm/Hg Oxygen Given 40% POC Sodium (135-144) mmol/L Sodium (136-145) mmol/L POC Potassium (3.3-5.0) mmol/L Potassium (3.5-5.1) mmol/L POC Chloride (101-112) mmol/L Chloride (98-107) mmol/L Carbon Dioxide (21-32) mmol/L POC Total CO2 (24-31) mmol/L Anion Gap (3-11) POC Anion Gap (16-25) mmol/L POC BUN (7-18) mg/dl BUN (7-18) mg/dl Creatinine (0.6-1.4) mg/dl POC Creatinine (0.6-1.3) mg/dl Est Cr Clr Drug Dosing ml/min Est GFR ( Amer) Est GFR (Non-Af Amer) BUN/Creatinine Ratio (10-20) Glucose (70-99) mg/dl POC Glucose 65 L* (70-99) mg/dl POC Glucose (other) (70-99) mg/dl Lactate (0.4-2.0) mmol/L Calcium (8.5-10.1) mg/dl POC Ioniz Calcium Pam (1.12-1.32) mmol/l Magnesium (1.8-2.4) mg/dl Total Bilirubin (0.2-1) mg/dl AST (15-37) U/L ALT (12-78) U/L Alkaline Phosphatase (45-117) U/L Ammonia 51.7 H (11-32) umol/L Total Protein (6.4-8.2) gm/dl Albumin (3.4-5.0) gm/dl Globulin (2.5-4.0) gm/dl Albumin/Globulin Ratio (0.9-2) TSH (0.300-4.500) uIu/ml Urine Color Urine Appearance (Clear) Urine pH (4.5-7.5) Ur Specific [place] (1.000-1.030) Urine Protein (Negative) Urine Glucose (UA) (Negative) Urine Ketones (Negative) Urine Blood (Negative) Urine Nitrite (Negative) Urine Bilirubin (Negative) Urine Urobilinogen (Negative) Ur Leukocyte Esterase (Negative) Urine WBC (Auto) (0-5) /hpf Urine RBC (Auto) (0-4) /hpf U Hyaline Cast (Auto) (0-5) /lpf U Epithel Cells (Auto) (0-5) /lpf Urine Bacteria (Auto) (Negative) Granular Casts (0) /lpf Urine Yeast COVID-19 Eval Order COVID-19 PCR (Negative) Administered Medications Discontinued Medications Albuterol (Albuterol 0.083% Nebu Soln 3 Ml Vial) 5 mg NEB NOW STA Stop: 03/24/20 18:55 Last Admin: 03/24/20 19:31 Dose: Not Given Documented by: [id number] Dexamethasone (Dexamethasone Sod Inj 10 Mg/Ml Vial) 8 mg IV NOW ONE Stop: 03/24/20 18:56 Last Admin: 03/24/20 19:07 Dose: 8 mg Documented by: [id number] Dextrose (Dextrose 50% 50 Ml Syringe) 50 ml IV NOW ONE Stop: 03/24/20 20:53 Last Admin: 03/24/20 20:56 Dose: 50 ml Documented by: [id number] Piperacillin Sod/Tazobactam Sod (Zosyn) 4.5 gm in 120 mls @ 240 mls/hr IV NOW ONE Stop: 03/24/20 19:22 Last Infusion: 03/24/20 20:10 Dose: 0 mls/hr Documented by: [id number] Admin: 03/24/20 19:22 Dose: 240 mls/hr Documented by: [id number] Dextrose (D10w) 1,000 mls @ 75 mls/hr IV .[id number] CAROL ANN Stop: 04/23/20 19:29 Last Infusion: 03/24/20 23:54 Dose: 0 mls/hr Documented by: [id number] Admin: 03/24/20 19:41 Dose: 30 mls/hr Documented by: [id number] Infusion: 03/24/20 19:41 Dose: 30 mls/hr Documented by: [id number] Admin: 03/24/20 19:26 Dose: 30 mls/hr Documented by: [id number] Furosemide 80 mg/ Albumin (Human) 58 mls @ 54 mls/hr IV ONE ONE Stop: 03/24/20 22:04 Last Infusion: 03/24/20 21:53 Dose: 0 mls/hr Documented by: [id number] Admin: 03/24/20 20:57 Dose: 54 mls/hr Documented by: [id number] Miscellaneous Information (Piperacill/Tazobac Consult Active) 1 ea N/A UD PRN PRN Reason: Consult Stop: 04/23/20 18:52 Last Admin: 03/24/20 19:26 Dose: 1 ea Documented by: [id number] Admin: 03/24/20 19:22 Dose: 1 ea Documented by: [id number] Discharge Plan Visit Data Chief Complaint: Shortness of Breath/Dyspnea Stated Complaint: HYPOGLYCEMIA, HALLUCATIONS, HYPOXIA ED Provider: Jefferson Lawrence Discharge Problem: Acute respiratory failure with hypoxia, Respiratory failure Patient Disposition: Admitted As Inpatient Discharge Instructions Interventions: ED Discharge Assessment Last Done: 03/24/20 23:39 Discharge Problem: Respiratory failure Qualifiers: Chronicity: acute Respiratory failure complication: hypoxia and hypercapnia Qualified Code(s): J96.01 - Acute respiratory failure with hypoxia
--- NOTE | 2020-03-24 19:00 | XRay Report ---
XR chest 1V portable CLINICAL HISTORY: SEPSIS COMPARISON STUDY: 11/29/2019 FINDINGS: The heart is enlarged. There is radiographic evidence of pulmonary edema. There is a right pleural effusion with associated right basilar airspace opacities likely atelectatic[ IMPRESSION: Cardiomegaly, pulmonary edema, right pleural effusion. ACT 112: Negative or not required by law. Electronically signed by: Sebastián Gómez M.D. 03/24/2020 6:59 PM
[2020-03-24 19:22] LABS: Base Excess VBG 6.5 mEq/L; Oxygen Saturation VBG 68.2 %; pH VBG 7.35 (7.36-7.41)
[2020-03-24] MEDS: PIPERACILL/TAZOBAC CONSULT ACTIVE PRN ×2 (19:22→19:26)
[2020-03-24] MEDS: DEXTROSE 10% 1,000 ML IV SCH ×2 (19:26→19:41)
[2020-03-24 19:29] LABS: iSTAT Creatinine 1.6 mg/dl (0.6-1.3); iSTAT Hemoglobin 11.2 g/dl (14.0-18.0); iSTAT Ionized Calcium 1.22 mmol/l (1.12-1.32); iSTAT Potassium 4.8 mmol/L (3.3-5.0)
[2020-03-24 19:38] LABS: Albumin Level 2.7 gm/dl (3.4-5.0); BUN Creatinine Ratio 18.2 (10-20); Calcium 8.8 mg/dl (8.5-10.1); Creatinine Clr Calc Pharmacy 75.1 ml/min; Est GFR (African American) 45.4; Est GFR (Non-African American) 39.2; Magnesium 2.4 mg/dl (1.8-2.4); Potassium 4.7 mmol/L (3.5-5.1)
[2020-03-24 19:40] LABS: Albumin Globulin Ratio 0.4 (0.9-2); Bilirubin,Total 0.3 mg/dl (0.2-1); Globulin 6.1 gm/dl (2.5-4.0); Total Protein 8.8 gm/dl (6.4-8.2)
[2020-03-24 19:44] LABS: INR 1.1 (0.9-1.1); Partial Thromboplastin Ratio 0.9; Partial Thromboplastin Time 25.9 Seconds (21.0-31.0); Prothrombin Time 11.9 Seconds (9.0-12.0)
[2020-03-24 19:45] LABS: Basophils # (auto) 0.03 K/uL (0-0.2); Basophils % (auto) 0.5 %; Eosinophils # (auto) 0.05 K/uL (0-0.5); Eosinophils % (auto) 0.9 %; Hematocrit (blood only) 32.5 % (42-52); Hemoglobin 9.6 g/dL (14.0-18.0); Immature Granulocytes # (auto) 0.02 K/uL (0.00-0.02); Immature Granulocytes % (auto) 0.3 %; Mean Corpuscular Hgb Conc 29.5 g/dL (32-36); Mean Corpuscular Volume 91.3 fL (80-100); Mean Platelet Volume 9.7 fL (7.4-10.4); Monocytes # (auto) 0.48 K/uL (0.11-0.59); Monocytes % (auto) 8.3 %; Platelet Count 200 K/uL (130-400); RDW Coefficient of Variation 17.7 % (11.5-14.5); RDW Standard Deviation 59.1 fL (36.4-46.3); Red Blood Count 3.56 M/uL (4.7-6.1); White Blood Count 5.78 K/uL (4.8-10.8)
[2020-03-24 20:14] LABS: Appearance Urine Cloudy (Clear); Bacteria Urine Automated 4+ (Negative); Bilirubin Urine Negative (Negative); Blood Urine 2+ (Negative); Color Urine Dark Yellow; Glucose Urine UA Negative (Negative); Ketones Urine Negative (Negative); Leukocyte Esterase Urine 3+ (Negative); Nitrite Urine Negative (Negative); Protein Urine 1+ (Negative); RBC Urine Automated >30 /hpf (0-4); Specific Gravity Urine 1.017 (1.000-1.030); Urobilinogen Urine Negative (Negative); WBC Urine Automated >30 /hpf (0-5); pH Urine 5.5 (4.5-7.5)
[2020-03-24] MEDS ORDERED: DEXTROSE 50% 50 ML SYRINGE IV ONE (20:52)
[2020-03-24 20:59] LABS: Thyroid Stimulating Hormone 4.03 uIu/ml (0.300-4.500)
[2020-03-24] MEDS ORDERED: ALBUMIN 25% 50 ML with FUROSEMIDE 80 MG IV ONE (21:00)
[2020-03-24 21:12] LABS: Base Excess ABG 6.7 mEq/L (-9-1.8); HCO3 ABG 34 mmol/L (19-24); Oxygen Saturation ABG 98.4 % (90-95); PCO2 ABG 64 mmHg (35-46); PO2 ABG 145 mmHg (80-95); pH ABG 7.34 (7.35-7.45)
[2020-03-24 21:14] LABS: Allen Test POS (Pos)
--- NOTE | 2020-03-24 21:25 | History & Physical Report ---
Date of Service March 24, 2020 Assessment & Plan (1) Acute on chronic respiratory failure with hypoxia and hypercapnia: (2) Acute on chronic diastolic heart failure: (3) Acute metabolic encephalopathy: (4) UTI (urinary tract infection): (5) Acute worsening of stage 3 chronic kidney disease: (6) Diabetes mellitus, type 2: (7) Anemia: (8) SAFIA (obstructive sleep apnea): (9) Obesity hypoventilation syndrome: (10) Hypertension: (11) Hypothyroidism: (12) DVT prophylaxis: This is a 64-year-old male who has significant past medical history of chronic respiratory failure with hypoxia and hypercarbia, SAFIA/OHS, on BiPAP, chronic diastolic heart failure, COPD, insulin-dependent T2DM, hypothyroidism, bilateral lymphedema, CKD stage III, bedbound status who presents to ED via EMS secondary to worsening confusion x2 days and acute respiratory failure. Pt was seen and examined in collaboration with Dr. Stewart. I obtained history, medication reconciliation and physical exam. Please refer to Dr. Stewart addendum regarding his assessment and plan regarding the above diagnoses. History of Present Illness Chief Complaint: worsening confusion x 2 days and acute respiratory failure. Primary Care Provider: Susanne Macias DO This is a 64-year-old male who has significant past medical history of chronic respiratory failure with hypoxia and hypercarbia, SAFIA/OHS, on BiPAP, chronic diastolic heart failure, COPD, insulin-dependent T2DM, hypothyroidism, bilateral lymphedema, CKD stage III, bedbound status who presents to ED via EMS secondary to worsening confusion x2 days and acute respiratory failure. Patient currently lives with his brother and is mostly bedbound. He is on chronic 2.5 L of oxygen daily secondary to COPD and obesity hypoventilation syndrome. He is to wear BiPAP at at bedtime. According to history and after speaking with his brother his BiPAP cord broke approximately 2 nights ago and is unable to get replaced for 7 to 10 days. Due to not wearing his BiPAP he noticed he was becoming more confused. Per EMS report patient's BSG was in 20s upon arrival in improved after administration of dextrose. However, this did not improve his mentation. According to brother patient did take 12 units of NovoLog this morning without eating. ROS is unobtainable from patient secondary to being on BiPAP as well as mental status. He is alert and conversing but confused. In ED patient was hypoxic requiring BiPAP therapy. He is otherwise hemodynamically stable. Lab work notable for H&H 9.6 and 32.5, platelet 200, VBG pH 7.35, PCO2 62, BUN 32, creatinine 1.77, lactate 1.3, TSH 4. Urinalysis consistent with greater than 30 WBCs, +4 bacteruria and concern for UTI. COVID PCR negative. CXR concerning pulmonary edema and R side pleural effusion. In ED he was placed on bipap therapy, albuterol neb tx, IV dextrose, IV Dexamethasone and IV zosyn. Allergies Allergy/AdvReac Type Severity Reaction Status Date / Time pollen extracts Allergy Mild sneezing/watery Verified 05/26/19 00:14 eyes Home Medications Home Medications Medication Instructions Recorded Confirmed Type atorvastatin 10 mg PO HS 10/24/18 03/24/20 History levothyroxine 25 mcg PO QAM 10/24/18 03/24/20 History levothyroxine 200 mcg PO QAM 10/24/18 03/24/20 History metoprolol succinate 25 mg PO QAM 10/24/18 03/24/20 History pantoprazole 40 mg tablet,delayed 40 mg PO BID 02/11/19 03/24/20 History release gabapentin 100 mg PO TID 04/14/19 03/24/20 History Linzess 145 mcg PO DAILYBB 11/29/19 03/24/20 History albuterol sulfate 2 puff INHALATION QID PRN 11/29/19 03/24/20 History fluoxetine 10 mg PO DAILY 11/29/19 03/24/20 History fluoxetine 20 mg PO DAILY 11/29/19 03/24/20 History furosemide [Lasix] 80 mg PO BID 11/29/19 03/24/20 History hydralazine 50 mg PO QID 11/29/19 03/24/20 History insulin aspart U-100 [Novolog 1 sliding scale dose SUBCUT TID 11/29/19 03/24/20 History U-100 Insulin aspart] Lantus Solostar U-100 Insulin 40 unit SUBCUT HS #0 ml 12/05/19 03/24/20 Rx umeclidinium-vilanterol [Anoro 1 ea INHALATION DAILY #14 ea 12/05/19 03/24/20 Rx Ellipta] Past Med/Surg History Medical History (Updated 03/25/20 @ 00:12 by Jefferson Lawrence DO) Anemia Chronic diastolic heart failure COPD (chronic obstructive pulmonary disease) inhalers daily/prn and oxygen 2L n/c Diabetes mellitus, type 2 Elevated troponin I level Graves disease History of gastric ulcer Hyperlipidemia Hypertension Hypothyroidism Hypoxia Left bundle branch block chronic Morbid obesity with BMI of 50.0-59.9, adult Obesity hypoventilation syndrome On home oxygen therapy 2L N/C at all times SAFIA (obstructive sleep apnea) cpap--2L oxygen Surgical History History of angioplasty 2003 @ [facility] [place]--no stents History of colonoscopy History of endoscopic sinus surgery History of esophagogastroduodenoscopy (EGD) History of tooth extraction History of wisdom tooth extraction S/P correction of deviated nasal septum Family History Mother Diabetes Hypertension Brother , dies at 44 yo from [place] Heart disease Other No family history of adverse response to anesthesia Social History (Updated 03/24/20 @ 21:12 by Isabel Talbert PA-C) Smoking Status: Unknown if ever smoked Tobacco Type: Cigarettes Years Smoked: 60; Cigarettes Per Day: 4; Second Hand Exposure: No; Preferred Language: Ethiopian Communication Ability: Effective Communication Ability Comment: mental status 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 Beliefs That Will Affect Care: None marital status: Single Current Living Situation: Other Current Living Situation Comment: Patient states "with my mommy and daddy." current occupational status: unemployed Feels Safe at Home: Yes Assistive Devices: BiPap Review of Systems Review of Systems: Unobtainable due to cognitive status Physical Exam Physical Exam: Constitutional: Morbidly obese male, on BiPAP therapy, alert and answers questions, but not appropriately, vitals as above, NAD Head: Normocephalic, Atraumatic Eyes: PERRL, conjunctivae normal, anicteric sclerae ENMT: external ear and nose normal, oropharynx normal mucous membranes dry Neck: trachea midline, no thyromegaly normal visual inspection Respiratory: normal respiratory effort, decreased aeration throughout, poor inspiratory effort, positive rhonchi, no wheeze. Normal insp/exp effort, no accessory muscle use Cardiovascular: RRR, no murmur, bilateral lower extremity chronic venous stasis changes with nodular lymphedema. Vessels: no JVD or carotid bruit Chest: normal inspection of chest Abdomen: Obese abdomen, large pannus, soft, nontender, unable to appreciate hepatosplenomegaly secondary to obesity Musculoskeletal: no cyanosis or clubbing Skin: no rashes, warm and dry moderate turgor Neurologic: PERRL, EOMI, accommodation nl, no face palsy, no dysarthria CN's II-XI intact bilaterally and moves all extremities Psychiatric: A+Ox2 to person and place, euthymic affect : Block catheter with yellow urine Results & Data Results & Data ([facility]) Vital Signs (Past 12 Hours) Vital Signs Temp Pulse Pulse Resp BP BP Pulse Ox 03/24/20 20:36 66 20 124/52 L 99 03/24/20 20:14 57 L 19 135/65 100 03/24/20 19:06 60 18 99 03/24/20 19:00 100 03/24/20 18:53 36.5 C 55 L 24 134/60 100 Laboratory Results Short CBC 03/24/20 Range/Units 18:58 WBC 5.78 (4.8-10.8) K/uL Hgb 9.6 L (14.0-18.0) g/dL Hct 32.5 L (42-52) % Plt Count 200 (130-400) K/uL BMP 03/24/20 18:58 Sodium 139 Potassium 4.7 Chloride 103 Carbon Dioxide 35 H BUN 32 H Creatinine 1.77 H Glucose 71 Calcium 8.8 Liver Function 03/24/20 Range/Units 18:58 Total Bilirubin 0.3 (0.2-1) mg/dl AST 32 (15-37) U/L ALT 17 (12-78) U/L Alkaline Phosphatase 101 (45-117) U/L Albumin 2.7 L (3.4-5.0) gm/dl Urine 03/24/20 Range/Units 19:58 Urine Color Dark Yellow Urine Appearance Cloudy A (Clear) Urine pH 5.5 (4.5-7.5) Ur Specific [place] 1.017 (1.000-1.030) Urine Protein 1+ H (Negative) Urine Glucose (UA) Negative (Negative) Diagnostic Findings CXR: IMPRESSION: Cardiomegaly, pulmonary edema, right pleural effusion. Medications Administered Furosemide 80 mg/ Albumin (Human) 58 mls @ 54 mls/hr IV ONE ONE Stop: 03/24/20 22:04 Last Admin: 03/24/20 20:57 Dose: 54 mls/hr Documented by: [id number] Miscellaneous Information (Piperacill/Tazobac Consult Active) 1 ea N/A UD PRN PRN Reason: Consult Stop: 04/23/20 18:52 Last Admin: 03/24/20 19:26 Dose: 1 ea Documented by: [id number] Admin: 03/24/20 19:22 Dose: 1 ea Documented by: [id number] Discontinued Medications Albuterol (Albuterol 0.083% Nebu Soln 3 Ml Vial) 5 mg NEB NOW STA Stop: 03/24/20 18:55 Last Admin: 03/24/20 19:31 Dose: Not Given Documented by: [id number] Dexamethasone (Dexamethasone Sod Inj 10 Mg/Ml Vial) 8 mg IV NOW ONE Stop: 03/24/20 18:56 Last Admin: 03/24/20 19:07 Dose: 8 mg Documented by: [id number] Dextrose (Dextrose 50% 50 Ml Syringe) 50 ml IV NOW ONE Stop: 03/24/20 20:53 Last Admin: 03/24/20 20:56 Dose: 50 ml Documented by: [id number] Piperacillin Sod/Tazobactam Sod (Zosyn) 4.5 gm in 120 mls @ 240 mls/hr IV NOW ONE Stop: 03/24/20 19:22 Last Infusion: 03/24/20 20:10 Dose: 0 mls/hr Documented by: [id number] Admin: 03/24/20 19:22 Dose: 240 mls/hr Documented by: [id number] Dextrose (D10w) 1,000 mls @ 75 mls/hr IV .[id number] CAROL ANN Stop: 04/23/20 19:29 Last Admin: 03/24/20 19:41 Dose: 30 mls/hr Documented by: [id number] Infusion: 03/24/20 19:41 Dose: 30 mls/hr Documented by: [id number] Admin: 03/24/20 19:26 Dose: 30 mls/hr Documented by: [id number] ECG Rate (beats per minute): 60 Code Status & VTE Plan Code Status Full Code VTE Prophylaxis Plan VTE Prophylaxis will be ordered: Yes Supervising Physician Co-Signing Physician Notes IM ATTENDING : Patient seen and examined. History obtained from patient, family, and records. Preceding documentation by Ms. Isabel Talbert PA-C reviewed. FINAL ASSESSMENT AND PLAN as follows : Encephalopathy Multifactorial : Acute on chronic hypoxemic, hypercapnic respiratory failure secondary to decompensated heart failure/COPD exacerbation, hx OHS ARF? Cardiorenal syndrome Complicated UTI, no sepsis Hyperammonemia, possible hepatic encephalopathy, possible chronic liver disease given fatty liver findings on abdominal ultrasound from 2000 Hypoglycemia, hx DM2 insulin requiring, reasonable control as of recent outpatient hemoglobin A1c of 7.22 November 2019 chronic LBBB hypertension, slightly elevated hyperlipidemia on statin Rx chronic anemia, hemoglobin at baseline hypothyroidism, euthyroid as of today's TSH past tobacco abuse functional disability (patient brother finding it more difficult to care for her patient at home as per patient niece). PCU Continue BiPAP Lasix-albumin given kidney dysfunction Strict I/Os, daily weights, CHF education, fluid restriction Cardiology consult RE CHF Monitor renal function with diuretic Rx, may need renal ultrasound and nephrology eval if with worsening Doxycycline, nebs, prednisone course for COPD exacerbation Follow urine cultures, IV Cefepime for complicated UTI Lactulose for possible hepatic encephalopathy, liver ultrasound rule out chronic liver disease, may need GI consultation Appropriate to hold basal insulin for now given hypoglycemic episodes, ISS BG goal [id number], update hemoglobin A1c PT OT eval DVT prophylaxis. Heparin subcu Full code as per patient niece/POA (Miss Selam Cadet). She requests updates from providers through [phone]. Text document was generated using [employer] voice recognition software. It may contain grammatical or spelling errors. Kindly contact undersigned for clarification of any documentation item in question.
[2020-03-24] MEDS ORDERED: DOXYCYCLINE HYCLATE 100 MG in DEXTROSE 5% 100 ML IV STA (23:50)
[2020-03-24] MEDS ORDERED: GLUCAGON FOR INJ 1 MG VIAL SQ PRN (23:50)
[2020-03-24] MEDS ORDERED: GLUCOSE 40% GEL 15 GM TUBE PO PRN (23:50)
[2020-03-24] MEDS ORDERED: CARBOHYDRATES FOR HYPOGLYCEMIA PO PRN (23:50)
[2020-03-24] MEDS ORDERED: DEXTROSE 50% 50 ML SYRINGE IV PRN (23:50)
[2020-03-24] MEDS ORDERED: NITROGLYCERIN SL 0.4 MG/TAB TAB SL PRN (23:50)
[2020-03-24] MEDS ORDERED: GLUCOSE 10 TABS/TUBE PO PRN (23:50)
[2020-03-25] MEDS: INSULIN ASPART 100 UNITS/ML 3 ML PEN SC SCH ×5 (00:33→21:49)
[2020-03-25] MEDS ORDERED: CEFEPIME CONSULT ACTIVE PRN (00:47)
[2020-03-25] MEDS: HEPARIN SOD 5,000 UNIT/0.5 ML VIAL SQ SCH ×4 (00:58→21:49)
[2020-03-25] MEDS: LACTULOSE SYRUP 30 GM/45 ML UDP PO SCH ×4 (01:39→22:16)
[2020-03-25] MEDS: CEFEPIME 2,000 MG in SYRINGE 0 ML IV SCH ×2 (01:39→14:28)
[2020-03-25] MEDS: LEVOTHYROXINE SODIUM 25 MCG TABLET PO SCH (05:37)
[2020-03-25] MEDS: LEVOTHYROXINE SODIUM 200 MCG TABLET PO SCH (05:38)
[2020-03-25] MEDS ORDERED: MICONAZOLE NITRATE POWDER 43 GM EXT PRN (06:30)
[2020-03-25 06:43] LABS: Estimated Average Glucose 117 mg/dl; Hemoglobin A1C 5.7 % (4.5-5.6)
[2020-03-25] MEDS: ALBUT/IPRATROP 3MG/0.5MG NEB 3 ML VIAL NEB SCH ×7 (07:00→22:37)
--- NOTE | 2020-03-25 07:12 | CT Scan Report ---
CT SCAN OF THE BRAIN WITHOUT IV CONTRAST CLINICAL HISTORY: Change in mental status. COMPARISON STUDY: CT of the brain dated 11/29/2019. TECHNIQUE: Unenhanced axial CT scan of the brain is performed from the vertex to the skull base. A do se lowering technique was utilized adhering to the principles of ALARA. The patient was scanned twice due to motion artifact. CT DOSE: 2456.47 mGy.cm FINDINGS: Brain parenchyma: There are age-related involutional changes noting mild subcortical and periventric ular microangiopathic change. There is no hemorrhage, mass effect, or evidence of acute territorial i schemia by CT criteria. Cunningham-white matter differentiation is preserved. No extra-axial fluid collecti on is seen. Ventricles, sulci, cisterns: Prominent secondary to involutional change. Intracranial vasculature: There is atherosclerotic calcification of the cavernous carotid and vertebr al arteries. Calvarium: Unremarkable. Sinuses and mastoids: There is evidence of previous paranasal sinus surgery. Mucosal thickening is no melvin in the sphenoid sinuses. There is thickening and sclerosis of the abreu of the maxillary antra. T he remaining visualized paranasal sinuses are clear. There is a left mastoid effusion. The right mast oid air cells are well pneumatized. Orbits: The bony orbits are grossly intact. IMPRESSION: There is no hemorrhage, mass effect, or evidence of acute territorial ischemia by CT yoli john noting a motion degraded examination. ACT 112: Negative or not required by law. Electronically signed by: Greg Rodriges M.D. 03/25/2020 7:11 AM
[2020-03-25 08:08] LABS: Hematocrit (blood only) 33.2 % (42-52); Hemoglobin 9.4 g/dL (14.0-18.0); Immature Granulocytes # (auto) 0.02 K/uL (0.00-0.02); Immature Granulocytes % (auto) 0.4 %; Lymphocytes # (auto) 0.66 K/uL (1.2-3.4); Lymphocytes % (auto) 13.1 %; Mean Corpuscular Hemoglobin 25.5 pg (25-34); Mean Corpuscular Hgb Conc 28.3 g/dL (32-36); Mean Platelet Volume 9.2 fL (7.4-10.4); Monocytes # (auto) 0.29 K/uL (0.11-0.59); Monocytes % (auto) 5.8 %; Neutrophils # (auto) 4.05 K/uL (1.4-6.5); Neutrophils % (auto) 80.7 %; Platelet Count 190 K/uL (130-400); RDW Coefficient of Variation 17.8 % (11.5-14.5); RDW Standard Deviation 58.3 fL (36.4-46.3); Red Blood Count 3.69 M/uL (4.7-6.1); White Blood Count 5.02 K/uL (4.8-10.8)
[2020-03-25 08:24] LABS: BUN Creatinine Ratio 19.6 (10-20); Calcium 9.3 mg/dl (8.5-10.1); Est GFR (Non-African American) 37.1; Potassium 4.8 mmol/L (3.5-5.1)
[2020-03-25] MEDS ORDERED: predniSONE 20 MG TAB PO SCH (09:00)
[2020-03-25] MEDS ORDERED: ALBUMIN 25% 50 ML with FUROSEMIDE 80 MG IV ONE (09:00)
[2020-03-25] MEDS: DOXYCYCLINE HYCLATE 100 MG CAP PO SCH ×2 (09:14→22:15)
[2020-03-25] MEDS: METOPROLOL SUCC 25MG EXT REL TAB PO SCH (09:14)
[2020-03-25] MEDS: FLUoxetine HCL 20 MG CAP PO SCH (09:15)
[2020-03-25] MEDS: FLUoxetine HCL 10 MG CAP PO SCH (09:15)
[2020-03-25] MEDS: hydrALAZINE TAB 50 MG TAB PO SCH ×4 (09:15→22:14)
[2020-03-25] MEDS: PANTOprazole 40 MG TAB PO SCH ×2 (09:15→22:15)
[2020-03-25] MEDS ORDERED: FUROSEMIDE 60 MG in SYRINGE 0 ML IV ONE (10:13)
--- NOTE | 2020-03-25 10:28 | Cardiology Consultation ---
Date of Consultation March 25, 2020 Assessment & Plan (1) Obesity hypoventilation syndrome: (2) Diabetes mellitus, type 2: (3) Acute metabolic encephalopathy: (4) Acute on chronic respiratory failure with hypoxia and hypercapnia: (5) Acute on chronic diastolic heart failure: (6) Acute worsening of stage 3 chronic kidney disease: (7) Acute confusion: (8) Acute respiratory failure with hypoxia and hypercarbia: (9) COPD (chronic obstructive pulmonary disease): (10) SAFIA (obstructive sleep apnea): Unfortunately, this patient needs social intervention as much as medical intervention. I do not believe any additional cardiac testing is indicated at this time. I agree with the current management. History of Present Illness Attending Physician: Juan Rodriguez MD History of Present Illness This is a massively obese 64-year-old male patient who lives with his brother and is essentially bedridden. He has obesity hypoventilation syndrome, sleep apnea, COPD, diabetes and chronic diastolic heart failure. He had mental status changes and was brought to the hospital. He was found to have a metabolic encephalopathy most likely hypercapnic with respiratory failure. He has had several previous hospital admissions. Allergies Allergy/AdvReac Type Severity Reaction Status Date / Time pollen extracts Allergy Mild sneezing/watery Verified 05/26/19 00:14 eyes Home Medications Home Medications Medication Instructions Recorded Confirmed Type atorvastatin 10 mg PO HS 10/24/18 03/24/20 History levothyroxine 25 mcg PO QAM 10/24/18 03/24/20 History levothyroxine 200 mcg PO QAM 10/24/18 03/24/20 History metoprolol succinate 25 mg PO QAM 10/24/18 03/24/20 History pantoprazole 40 mg tablet,delayed 40 mg PO BID 02/11/19 03/24/20 History release gabapentin 100 mg PO TID 04/14/19 03/24/20 History Linzess 145 mcg PO DAILYBB 11/29/19 03/24/20 History albuterol sulfate 2 puff INHALATION QID PRN 11/29/19 03/24/20 History fluoxetine 10 mg PO DAILY 11/29/19 03/24/20 History fluoxetine 20 mg PO DAILY 11/29/19 03/24/20 History furosemide [Lasix] 80 mg PO BID 11/29/19 03/24/20 History hydralazine 50 mg PO QID 11/29/19 03/24/20 History insulin aspart U-100 [Novolog 1 sliding scale dose SUBCUT TID 11/29/19 03/24/20 History U-100 Insulin aspart] Lantus Solostar U-100 Insulin 40 unit SUBCUT HS #0 ml 12/05/19 03/24/20 Rx umeclidinium-vilanterol [Anoro 1 ea INHALATION DAILY #14 ea 12/05/19 03/24/20 Rx Ellipta] Patient History Medical History Anemia Chronic diastolic heart failure COPD (chronic obstructive pulmonary disease) inhalers daily/prn and oxygen 2L n/c Diabetes mellitus, type 2 Elevated troponin I level Graves disease History of gastric ulcer Hyperlipidemia Hypertension Hypothyroidism Hypoxia Left bundle branch block chronic Morbid obesity with BMI of 50.0-59.9, adult Obesity hypoventilation syndrome On home oxygen therapy 2L N/C at all times SAFIA (obstructive sleep apnea) cpap--2L oxygen Surgical History History of angioplasty 2003 @ [facility] [place]--no stents History of colonoscopy History of endoscopic sinus surgery History of esophagogastroduodenoscopy (EGD) History of tooth extraction History of wisdom tooth extraction S/P correction of deviated nasal septum Family History Mother Diabetes Hypertension Brother , dies at 44 yo from [place] Heart disease Other No family history of adverse response to anesthesia Social History Smoking Status: Unknown if ever smoked Tobacco Type: Cigarettes Years Smoked: 60; Cigarettes Per Day: 4; Second Hand Exposure: No; Preferred Language: Slovak Communication Ability: Impaired Communication Ability Comment: mental status 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 Physical Exam Physical Exam: General: no acute distress, massively obese, alert and conversive Head: normocephalic, no masses, lesions, tenderness or abnormalities Eyes: conjunctiva are pink and non-injected, sclera clear Neck: supple, no adenopathy, no bruits, normal jugular venous pulse, no hepatojugular reflux Chest: normal shape and normal respiratory effort Lungs: clear to auscultation and percussion Cardiac Exam: - regular rate & rhythm, no murmurs gallops or rubs - normal S1, normal S2 Pulses: 2(+) throughout Abdomen: abdomen soft, non-tender, no abnormal masses and no hepatosplenomegaly Musculoskeletal: no gait disturbance, no joint inflammation, no deforming arthritis Extremities: no edema and no cyanosis Neuro: grossly normal exam Results & Data ([facility]) Vital Signs (Past 12 Hours) Vital Signs Temp Pulse Pulse Pulse Resp BP BP 03/25/20 07:00 74 74 18 03/25/20 03:22 57 L 22 03/25/20 03:21 37.1 C 63 20 134/90 03/25/20 01:01 60 03/24/20 23:50 37.1 C 68 20 142/76 H 03/24/20 23:45 37.1 C 63 20 142/76 H 03/24/20 23:44 63 20 03/24/20 23:02 58 L 12 114/69 03/24/20 22:31 61 63 20 140/76 140/76 Pulse Ox 03/25/20 07:00 96 03/25/20 03:22 96 03/25/20 03:21 98 03/25/20 01:01 03/24/20 23:50 98 03/24/20 23:45 98 03/24/20 23:44 97 03/24/20 23:02 98 03/24/20 22:31 99 Laboratory Results Laboratory Results - last 24 hr 03/24/20 03/24/20 03/24/20 18:46 18:58 18:58 WBC 5.78 RBC 3.56 L Hgb 9.6 L POC Hgb Hct 32.5 L POC Hct MCV 91.3 MCH 27.0 MCHC 29.5 L RDW Std Deviation 59.1 H RDW Coeff of Neena 17.7 H Plt Count 200 MPV 9.7 Immature Gran % (Auto) 0.3 Neut % (Auto) 71.0 Lymph % (Auto) 19.0 [place] % (Auto) 8.3 Eos % (Auto) 0.9 Baso % (Auto) 0.5 Neut # (Auto) 4.10 Lymph # (Auto) 1.10 L [place] # (Auto) 0.48 Eos # (Auto) 0.05 Baso # (Auto) 0.03 Immature Gran # (Auto) 0.02 PT INR APTT PTT Ratio ABG pH ABG pCO2 ABG pO2 ABG HCO3 ABG O2 Saturation ABG Base Excess Raji Test VBG pH 7.35 L VBG pCO2 62 H VBG pO2 40 VBG HCO3 34 VBG O2 Saturation 68.2 VBG Base Excess 6.5 Barometric Pressure 727.4 Oxygen Given POC Sodium Sodium POC Potassium Potassium POC Chloride Chloride Carbon Dioxide POC Total CO2 Anion Gap POC Anion Gap POC BUN BUN Creatinine POC Creatinine Est Cr Clr Drug Dosing Est GFR ( Amer) Est GFR (Non-Af Amer) BUN/Creatinine Ratio Glucose POC Glucose 89 POC Glucose (other) Estimat Average Glucose Hemoglobin A1c Lactate Calcium POC Ioniz Calcium Pam Magnesium Total Bilirubin AST ALT Alkaline Phosphatase Ammonia Total Protein Albumin Globulin Albumin/Globulin Ratio TSH Urine Color Urine Appearance Urine pH Ur Specific [place] Urine Protein Urine Glucose (UA) Urine Ketones Urine Blood Urine Nitrite Urine Bilirubin Urine Urobilinogen Ur Leukocyte Esterase Urine WBC (Auto) Urine RBC (Auto) U Hyaline Cast (Auto) U Epithel Cells (Auto) Urine Bacteria (Auto) Granular Casts Urine Yeast COVID-19 Eval Order COVID-19 PCR 03/24/20 03/24/20 03/24/20 18:58 18:58 18:58 WBC RBC Hgb POC Hgb Hct POC Hct MCV MCH MCHC RDW Std Deviation RDW Coeff of Neena Plt Count MPV Immature Gran % (Auto) Neut % (Auto) Lymph % (Auto) [place] % (Auto) Eos % (Auto) Baso % (Auto) Neut # (Auto) Lymph # (Auto) [place] # (Auto) Eos # (Auto) Baso # (Auto) Immature Gran # (Auto) PT 11.9 INR 1.1 APTT 25.9 PTT Ratio 0.9 ABG pH ABG pCO2 ABG pO2 ABG HCO3 ABG O2 Saturation ABG Base Excess Raji Test VBG pH VBG pCO2 VBG pO2 VBG HCO3 VBG O2 Saturation VBG Base Excess Barometric Pressure Oxygen Given POC Sodium Sodium 139 POC Potassium Potassium 4.7 POC Chloride Chloride 103 Carbon Dioxide 35 H POC Total CO2 Anion Gap 1.0 L POC Anion Gap POC BUN BUN 32 H Creatinine 1.77 H POC Creatinine Est Cr Clr Drug Dosing 75.1 Est GFR ( Amer) 45.4 Est GFR (Non-Af Amer) 39.2 BUN/Creatinine Ratio 18.2 Glucose 71 POC Glucose POC Glucose (other) Estimat Average Glucose Hemoglobin A1c Lactate 1.3 Calcium 8.8 POC Ioniz Calcium Pam Magnesium 2.4 Total Bilirubin 0.3 AST 32 ALT 17 Alkaline Phosphatase 101 Ammonia Total Protein 8.8 H Albumin 2.7 L Globulin 6.1 H Albumin/Globulin Ratio 0.4 L TSH 4.030 Urine Color Urine Appearance Urine pH Ur Specific [place] Urine Protein Urine Glucose (UA) Urine Ketones Urine Blood Urine Nitrite Urine Bilirubin Urine Urobilinogen Ur Leukocyte Esterase Urine WBC (Auto) Urine RBC (Auto) U Hyaline Cast (Auto) U Epithel Cells (Auto) Urine Bacteria (Auto) Granular Casts Urine Yeast COVID-19 Eval Order COVID-19 PCR 03/24/20 03/24/20 03/24/20 18:58 19:12 19:15 WBC RBC Hgb POC Hgb 11.2 L Hct POC Hct 33 L MCV MCH MCHC RDW Std Deviation RDW Coeff of Neena Plt Count MPV Immature Gran % (Auto) Neut % (Auto) Lymph % (Auto) [place] % (Auto) Eos % (Auto) Baso % (Auto) Neut # (Auto) Lymph # (Auto) [place] # (Auto) Eos # (Auto) Baso # (Auto) Immature Gran # (Auto) PT INR APTT PTT Ratio ABG pH ABG pCO2 ABG pO2 ABG HCO3 ABG O2 Saturation ABG Base Excess Raji Test VBG pH VBG pCO2 VBG pO2 VBG HCO3 VBG O2 Saturation VBG Base Excess Barometric Pressure Oxygen Given POC Sodium 141 Sodium POC Potassium 4.8 Potassium POC Chloride 97 L Chloride Carbon Dioxide POC Total CO2 30 Anion Gap POC Anion Gap 20.0 POC BUN 33 H BUN Creatinine POC Creatinine 1.6 H Est Cr Clr Drug Dosing Est GFR ( Amer) Est GFR (Non-Af Amer) BUN/Creatinine Ratio Glucose POC Glucose POC Glucose (other) 72 Estimat Average Glucose 117 Hemoglobin A1c 5.7 H Lactate Calcium POC Ioniz Calcium Pam 1.22 Magnesium Total Bilirubin AST ALT Alkaline Phosphatase Ammonia Total Protein Albumin Globulin Albumin/Globulin Ratio TSH Urine Color Urine Appearance Urine pH Ur Specific [place] Urine Protein Urine Glucose (UA) Urine Ketones Urine Blood Urine Nitrite Urine Bilirubin Urine Urobilinogen Ur Leukocyte Esterase Urine WBC (Auto) Urine RBC (Auto) U Hyaline Cast (Auto) U Epithel Cells (Auto) Urine Bacteria (Auto) Granular Casts Urine Yeast COVID-19 Eval Order Covid19 Done at [facility] COVID-19 PCR 03/24/20 03/24/20 03/24/20 19:15 19:19 19:58 WBC RBC Hgb POC Hgb Hct POC Hct MCV MCH MCHC RDW Std Deviation RDW Coeff of Neena Plt Count MPV Immature Gran % (Auto) Neut % (Auto) Lymph % (Auto) [place] % (Auto) Eos % (Auto) Baso % (Auto) Neut # (Auto) Lymph # (Auto) [place] # (Auto) Eos # (Auto) Baso # (Auto) Immature Gran # (Auto) PT INR APTT PTT Ratio ABG pH ABG pCO2 ABG pO2 ABG HCO3 ABG O2 Saturation ABG Base Excess Raji Test VBG pH VBG pCO2 VBG pO2 VBG HCO3 VBG O2 Saturation VBG Base Excess Barometric Pressure Oxygen Given POC Sodium Sodium POC Potassium Potassium POC Chloride Chloride Carbon Dioxide POC Total CO2 Anion Gap POC Anion Gap POC BUN BUN Creatinine POC Creatinine Est Cr Clr Drug Dosing Est GFR ( Amer) Est GFR (Non-Af Amer) BUN/Creatinine Ratio Glucose POC Glucose 61 L* POC Glucose (other) Estimat Average Glucose Hemoglobin A1c Lactate Calcium POC Ioniz Calcium Pam Magnesium Total Bilirubin AST ALT Alkaline Phosphatase Ammonia Total Protein Albumin Globulin Albumin/Globulin Ratio TSH Urine Color Dark Yellow Urine Appearance Cloudy A Urine pH 5.5 Ur Specific [place] 1.017 Urine Protein 1+ H Urine Glucose (UA) Negative Urine Ketones Negative Urine Blood 2+ H Urine Nitrite Negative Urine Bilirubin Negative Urine Urobilinogen Negative Ur Leukocyte Esterase 3+ H Urine WBC (Auto) >30 H Urine RBC (Auto) >30 H U Hyaline Cast (Auto) 1-5 U Epithel Cells (Auto) 5-10 H Urine Bacteria (Auto) 4+ H Granular Casts 1-5 H Urine Yeast Not Reportable COVID-19 Eval Order COVID-19 PCR NEGATIVE 10/01/0403/24/20 03/24/20 20:05 20:50 20:54 WBC RBC Hgb POC Hgb Hct POC Hct MCV MCH MCHC RDW Std Deviation RDW Coeff of Neena Plt Count MPV Immature Gran % (Auto) Neut % (Auto) Lymph % (Auto) [place] % (Auto) Eos % (Auto) Baso % (Auto) Neut # (Auto) Lymph # (Auto) [place] # (Auto) Eos # (Auto) Baso # (Auto) Immature Gran # (Auto) PT INR APTT PTT Ratio ABG pH ABG pCO2 ABG pO2 ABG HCO3 ABG O2 Saturation ABG Base Excess Raji Test VBG pH VBG pCO2 VBG pO2 VBG HCO3 VBG O2 Saturation VBG Base Excess Barometric Pressure Oxygen Given POC Sodium Sodium POC Potassium Potassium POC Chloride Chloride Carbon Dioxide POC Total CO2 Anion Gap POC Anion Gap POC BUN BUN Creatinine POC Creatinine Est Cr Clr Drug Dosing Est GFR ( Amer) Est GFR (Non-Af Amer) BUN/Creatinine Ratio Glucose POC Glucose 76 65 L* POC Glucose (other) Estimat Average Glucose Hemoglobin A1c Lactate Calcium POC Ioniz Calcium Pam Magnesium Total Bilirubin AST ALT Alkaline Phosphatase Ammonia 51.7 H Total Protein Albumin Globulin Albumin/Globulin Ratio TSH Urine Color Urine Appearance Urine pH Ur Specific [place] Urine Protein Urine Glucose (UA) Urine Ketones Urine Blood Urine Nitrite Urine Bilirubin Urine Urobilinogen Ur Leukocyte Esterase Urine WBC (Auto) Urine RBC (Auto) U Hyaline Cast (Auto) U Epithel Cells (Auto) Urine Bacteria (Auto) Granular Casts Urine Yeast COVID-19 Eval Order COVID-19 PCR 03/24/20 03/24/20 03/24/20 20:54 21:58 23:10 WBC RBC Hgb POC Hgb Hct POC Hct MCV MCH MCHC RDW Std Deviation RDW Coeff of Neena Plt Count MPV Immature Gran % (Auto) Neut % (Auto) Lymph % (Auto) [place] % (Auto) Eos % (Auto) Baso % (Auto) Neut # (Auto) Lymph # (Auto) [place] # (Auto) Eos # (Auto) Baso # (Auto) Immature Gran # (Auto) PT INR APTT PTT Ratio ABG pH 7.34 L ABG pCO2 64 H ABG pO2 145 H ABG HCO3 34 H ABG O2 Saturation 98.4 H ABG Base Excess 6.7 H Raji Test POS VBG pH VBG pCO2 VBG pO2 VBG HCO3 VBG O2 Saturation VBG Base Excess Barometric Pressure 728.3 Oxygen Given 40% POC Sodium Sodium POC Potassium Potassium POC Chloride Chloride Carbon Dioxide POC Total CO2 Anion Gap POC Anion Gap POC BUN BUN Creatinine POC Creatinine Est Cr Clr Drug Dosing Est GFR ( Amer) Est GFR (Non-Af Amer) BUN/Creatinine Ratio Glucose POC Glucose 94 88 POC Glucose (other) Estimat Average Glucose Hemoglobin A1c Lactate Calcium POC Ioniz Calcium Pam Magnesium Total Bilirubin AST ALT Alkaline Phosphatase Ammonia Total Protein Albumin Globulin Albumin/Globulin Ratio TSH Urine Color Urine Appearance Urine pH Ur Specific [place] Urine Protein Urine Glucose (UA) Urine Ketones Urine Blood Urine Nitrite Urine Bilirubin Urine Urobilinogen Ur Leukocyte Esterase Urine WBC (Auto) Urine RBC (Auto) U Hyaline Cast (Auto) U Epithel Cells (Auto) Urine Bacteria (Auto) Granular Casts Urine Yeast COVID-19 Eval Order COVID-19 PCR 03/24/20 03/25/20 03/25/20 23:54 04:21 07:34 WBC 5.02 RBC 3.69 L Hgb 9.4 L POC Hgb Hct 33.2 L POC Hct MCV 90.0 MCH 25.5 MCHC 28.3 L RDW Std Deviation 58.3 H RDW Coeff of Neena 17.8 H Plt Count 190 MPV 9.2 Immature Gran % (Auto) 0.4 Neut % (Auto) 80.7 Lymph % (Auto) 13.1 [place] % (Auto) 5.8 Eos % (Auto) 0.0 Baso % (Auto) 0.0 Neut # (Auto) 4.05 Lymph # (Auto) 0.66 L [place] # (Auto) 0.29 Eos # (Auto) 0.00 Baso # (Auto) 0.00 Immature Gran # (Auto) 0.02 PT INR APTT PTT Ratio ABG pH ABG pCO2 ABG pO2 ABG HCO3 ABG O2 Saturation ABG Base Excess Raji Test VBG pH VBG pCO2 VBG pO2 VBG HCO3 VBG O2 Saturation VBG Base Excess Barometric Pressure Oxygen Given POC Sodium Sodium POC Potassium Potassium POC Chloride Chloride Carbon Dioxide POC Total CO2 Anion Gap POC Anion Gap POC BUN BUN Creatinine POC Creatinine Est Cr Clr Drug Dosing Est GFR ( Amer) Est GFR (Non-Af Amer) BUN/Creatinine Ratio Glucose POC Glucose 80 114 H POC Glucose (other) Estimat Average Glucose Hemoglobin A1c Lactate Calcium POC Ioniz Calcium Pam Magnesium Total Bilirubin AST ALT Alkaline Phosphatase Ammonia Total Protein Albumin Globulin Albumin/Globulin Ratio TSH Urine Color Urine Appearance Urine pH Ur Specific [place] Urine Protein Urine Glucose (UA) Urine Ketones Urine Blood Urine Nitrite Urine Bilirubin Urine Urobilinogen Ur Leukocyte Esterase Urine WBC (Auto) Urine RBC (Auto) U Hyaline Cast (Auto) U Epithel Cells (Auto) Urine Bacteria (Auto) Granular Casts Urine Yeast COVID-19 Eval Order COVID-19 PCR 03/25/20 07:34 WBC RBC Hgb POC Hgb Hct POC Hct MCV MCH MCHC RDW Std Deviation RDW Coeff of Neena Plt Count MPV Immature Gran % (Auto) Neut % (Auto) Lymph % (Auto) [place] % (Auto) Eos % (Auto) Baso % (Auto) Neut # (Auto) Lymph # (Auto) [place] # (Auto) Eos # (Auto) Baso # (Auto) Immature Gran # (Auto) PT INR APTT PTT Ratio ABG pH ABG pCO2 ABG pO2 ABG HCO3 ABG O2 Saturation ABG Base Excess Raji Test VBG pH VBG pCO2 VBG pO2 VBG HCO3 VBG O2 Saturation VBG Base Excess Barometric Pressure Oxygen Given POC Sodium Sodium 139 POC Potassium Potassium 4.8 POC Chloride Chloride 104 Carbon Dioxide 30 POC Total CO2 Anion Gap 5.0 POC Anion Gap POC BUN BUN 36 H Creatinine 1.85 H POC Creatinine Est Cr Clr Drug Dosing 64.0 Est GFR ( Amer) 43.0 Est GFR (Non-Af Amer) 37.1 BUN/Creatinine Ratio 19.6 Glucose 106 H POC Glucose POC Glucose (other) Estimat Average Glucose Hemoglobin A1c Lactate Calcium 9.3 POC Ioniz Calcium Pam Magnesium Total Bilirubin AST ALT Alkaline Phosphatase Ammonia Total Protein Albumin Globulin Albumin/Globulin Ratio TSH Urine Color Urine Appearance Urine pH Ur Specific [place] Urine Protein Urine Glucose (UA) Urine Ketones Urine Blood Urine Nitrite Urine Bilirubin Urine Urobilinogen Ur Leukocyte Esterase Urine WBC (Auto) Urine RBC (Auto) U Hyaline Cast (Auto) U Epithel Cells (Auto) Urine Bacteria (Auto) Granular Casts Urine Yeast COVID-19 Eval Order COVID-19 PCR Medications Administered Current Inpatient Medications Acetaminophen (Acetaminophen 325 Mg Tab) 325 mg PO Q6H PRN PRN Reason: Mild Pain Stop: 04/23/20 23:49 Albuterol (Albut/Ipratrop 3mg/0.5mg Neb 3 Ml Vial) 3 ml NEB QIDR CAROL ANN Stop: 04/24/20 06:59 Last Admin: 03/25/20 07:00 Dose: 3 ml Documented by: Dextrose (Dextrose 50% 50 Ml Syringe) 25 - 50 ml IV UD PRN; Protocol PRN Reason: Hypoglycemia Protocol Stop: 04/23/20 23:49 Doxycycline Hyclate (Doxycycline Hyclate 100 Mg Cap) 100 mg PO BID CAROL ANN Stop: 04/01/20 08:59 Last Admin: 03/25/20 09:14 Dose: 100 mg Documented by: Fluoxetine HCl (Fluoxetine Hcl 20 Mg Cap) 20 mg PO DAILY CAROL ANN Stop: 04/24/20 08:59 Last Admin: 03/25/20 09:15 Dose: 20 mg Documented by: Fluoxetine HCl (Fluoxetine Hcl 10 Mg Cap) 10 mg PO DAILY CAROL ANN Stop: 04/24/20 08:59 Last Admin: 03/25/20 09:15 Dose: 10 mg Documented by: Glucagon (Glucagon For Inj 1 Mg Vial) 1 mg SQ UD PRN; Protocol PRN Reason: Hypoglycemia Protocol Stop: 04/23/20 23:49 Glucose (Glucose 10 Tabs/Tube) 4 - 8 tabs PO UD PRN; Protocol PRN Reason: Hypoglycemia Protocol Stop: 04/23/20 23:49 Glucose (Glucose 40% Gel 15 Gm Tube) 15 - 30 gm PO UD PRN; Protocol PRN Reason: Hypoglycemia Protocol Stop: 04/23/20 23:49 Heparin Sodium (Porcine) (Heparin Sod 5,000 Unit/0.5 Ml Vial) 5,000 units SQ Q8 CAROL ANN Stop: 04/23/20 23:49 Last Admin: 03/25/20 05:38 Dose: 5,000 units Documented by: Hydralazine HCl (Hydralazine Tab 50 Mg Tab) 50 mg PO QID [facility] Stop: 04/24/20 08:59 Last Admin: 03/25/20 09:15 Dose: 50 mg Documented by: Cefepime HCl 2,000 mg/ Syringe 20 mls @ 5 mls/min IV Q12H CAROL ANN; Protocol Stop: 04/04/20 01:59 Last Admin: 03/25/20 01:39 Dose: 5 mls/min Documented by: Influenza Virus Vaccine (Influenza Vaccine High Dose 65+ 0.5 Ml Syr) 0.5 ml IM .ONCE ONE Stop: 03/27/20 09:01 Insulin Aspart (Insulin Aspart 100 Units/Ml 3 Ml Pen) 0 units SC ACHS [facility] Stop: 04/23/20 23:49 Last Admin: 03/25/20 09:11 Dose: Not Given Documented by: Lactulose (Lactulose Syrup 30 Gm/45 Ml Udp) 30 gm PO TID [facility] Stop: 04/23/20 23:49 Last Admin: 03/25/20 09:15 Dose: 30 gm Documented by: Levothyroxine Sodium (Levothyroxine Sodium 25 Mcg Tablet) 25 mcg PO DAILYBB [facility] Stop: 04/24/20 06:29 Last Admin: 03/25/20 05:37 Dose: 25 mcg Documented by: Levothyroxine Sodium (Levothyroxine Sodium 200 Mcg Tablet) 200 mcg PO DAILYBB [facility] Stop: 04/24/20 06:29 Last Admin: 03/25/20 05:38 Dose: 200 mcg Documented by: Metoprolol Succinate (Metoprolol Succ 25mg Ext Rel Tab) 25 mg PO QAM [facility] Stop: 04/24/20 08:59 Last Admin: 03/25/20 09:14 Dose: 25 mg Documented by: Miconazole Nitrate (Miconazole Nitrate Powder 43 Gm) 1 appln EXT PRN PRN PRN Reason: Affected Skin Folds Stop: 04/24/20 06:29 Miscellaneous (Carbohydrates For Hypoglycemia ) 15 - 30 gm PO UD PRN PRN Reason: Hypoglycemia Protocol Stop: 04/23/20 23:49 Miscellaneous Information (Cefepime Consult Active) 1 ea N/A UD PRN PRN Reason: Consult Stop: 04/24/20 00:46 Nitroglycerin (Nitroglycerin Sl 0.4 Mg/Tab Tab) 0.4 mg SL UD PRN PRN Reason: Chest Pain Stop: 04/23/20 23:49 Pantoprazole Sodium (Pantoprazole 40 Mg Tab) 40 mg PO BID [facility] Stop: 04/24/20 08:59 Last Admin: 03/25/20 09:15 Dose: 40 mg Documented by: Prednisone (Prednisone 20 Mg Tab) 40 mg PO DAILY [facility] Stop: 03/29/20 08:59 Last Admin: 03/25/20 09:15 Dose: 40 mg Documented by:
--- NOTE | 2020-03-25 12:49 | Hospitalist Progress Note ---
Date of Service March 25, 2020 Assessment & Plan (1) Acute on chronic respiratory failure with hypoxia and hypercapnia: (2) Acute on chronic diastolic heart failure: (3) Acute metabolic encephalopathy: (4) UTI (urinary tract infection): (5) Acute worsening of stage 3 chronic kidney disease: (6) Diabetes mellitus, type 2: (7) Anemia: (8) SAFIA (obstructive sleep apnea): (9) Obesity hypoventilation syndrome: Encephalopathy Multifactorial : Acute on chronic hypoxemic, hypercapnic respiratory failure secondary to decompensated heart failure/COPD exacerbation, hx OHS ARF possible Cardiorenal syndrome Complicated UTI, no sepsis Hyperammonemia, possible hepatic encephalopathy, possible chronic liver disease given fatty liver findings on abdominal ultrasound from 2000 Hypoglycemia, hx DM2 insulin requiring, reasonable control as of recent outpatient hemoglobin A1c of 7.22 November 2019 chronic LBBB hypertension, slightly elevated hyperlipidemia on statin Rx chronic anemia, hemoglobin at baseline hypothyroidism, euthyroid as of today's TSH past tobacco abuse functional disability (patient brother finding it more difficult to care for the patient at home as per patient niece). PCU Continue BiPAP Lasix-albumin given kidney dysfunction, will consult w/ nephrology Strict I/Os, daily weights, CHF education, fluid restriction Cardiology consult RE CHF Monitor renal function with diuretic Rx, may need renal ultrasound and nephrology eval if with worsening Doxycycline, nebs, prednisone course for COPD exacerbation Follow urine cultures, IV Cefepime for complicated UTI Lactulose for possible hepatic encephalopathy, liver ultrasound rule out chronic liver disease, may need GI consultation Appropriate to hold basal insulin for now given hypoglycemic episodes, ISS BG goal [id number], update hemoglobin A1c PT OT eval DVT prophylaxis. Heparin subcu Full code as per patient niece/POA (Miss Selam Cadet). She requests updates from providers through [phone]. (10) Hypertension: (11) Hypothyroidism: (12) DVT prophylaxis: Admission and Anticipated Discharge Date Admission Date: March 24, 2020 Subjective Pt is lying in bed in NAD. He can tell me where he is and his name. He can tell me his brother's name. Can not tell me what year it is or who is the president. His answers are very slow and speech somewhat slurred. He keeps saying that he is "doing better". Denies having any complaints now or prior to coming to the hospital. Review of Systems Review of Systems: All systems reviewed & are unremarkable except as noted in HPI & below and Unobtainable due to cognitive status pt denies any complaints however pt is confused Physical Exam Physical Exam: Constitutional: Morbidly obese male, on BiPAP therapy, alert and answers questions, but not appropriately, vitals as above, NAD Head: Normocephalic, Atraumatic Eyes: PERRL, conjunctivae normal, anicteric sclerae ENMT: external ear and nose normal, oropharynx normal Neck: trachea midline, no thyromegaly normal visual inspection Respiratory: normal respiratory effort, decreased aeration throughout, poor inspiratory effort, positive mild rhonchi, mild wheezes. Normal insp/exp effort, no accessory muscle use Cardiovascular: RRR, no murmur, bilateral lower extremity chronic venous stasis changes with nodular lymphedema. Vessels: no JVD or carotid bruit Chest: normal inspection of chest Abdomen: Obese abdomen, large pannus, soft, nontender, unable to appreciate hepatosplenomegaly secondary to obesity Musculoskeletal: no cyanosis or clubbing Skin: warm and dry Neurologic: PERRL, EOMI, no face palsy, speech is slow,moves all extremities Psychiatric: A+Ox2 to person and place, euthymic affect : Block catheter with yellow urine Results & Data Results & Data ([facility]) Vital Signs (Past 12 Hours) Vital Signs Temp Pulse Pulse Pulse Resp BP Pulse Ox 03/25/20 11:18 59 L 16 98 03/25/20 10:58 36.8 C 60 22 133/72 98 03/25/20 07:00 74 74 18 96 03/25/20 03:22 57 L 22 96 03/25/20 03:21 37.1 C 63 20 134/90 98 03/25/20 01:01 60 Laboratory Results 03/25/20 03/25/20 03/25/20 Range/Units 10:35 07:34 07:34 WBC 5.02 (4.8-10.8) K/uL RBC 3.69 L (4.7-6.1) M/uL Hgb 9.4 L (14.0-18.0) g/dL POC Hgb (14.0-18.0) g/dl Hct 33.2 L (42-52) % POC Hct (42-52) % MCV 90.0 (80-100) fL MCH 25.5 (25-34) pg MCHC 28.3 L (32-36) g/dL RDW Std Deviation 58.3 H (36.4-46.3) fL RDW Coeff of Neena 17.8 H (11.5-14.5) % Plt Count 190 (130-400) K/uL MPV 9.2 (7.4-10.4) fL Immature Gran % (Auto) 0.4 % Neut % (Auto) 80.7 % Lymph % (Auto) 13.1 % Douglas % (Auto) 5.8 % Eos % (Auto) 0.0 % Baso % (Auto) 0.0 % Neut # (Auto) 4.05 (1.4-6.5) K/uL Lymph # (Auto) 0.66 L (1.2-3.4) K/uL Douglas # (Auto) 0.29 (0.11-0.59) K/uL Eos # (Auto) 0.00 (0-0.5) K/uL Baso # (Auto) 0.00 (0-0.2) K/uL Immature Gran # (Auto) 0.02 (0.00-0.02) K/uL PT (9.0-12.0) Seconds INR (0.9-1.1) APTT (21.0-31.0) Seconds PTT Ratio ABG pH (7.35-7.45) ABG pCO2 (35-46) mmHg ABG pO2 (80-95) mmHg ABG HCO3 (19-24) mmol/L ABG O2 Saturation (90-95) % ABG Base Excess (-9-1.8) mEq/L Raji Test (Pos) VBG pH (7.36-7.41) VBG pCO2 (38-50) mmHg VBG pO2 mmHg VBG HCO3 mmol/L VBG O2 Saturation % VBG Base Excess mEq/L Barometric Pressure mm/Hg Oxygen Given POC Sodium (135-144) mmol/L Sodium 139 (136-145) mmol/L POC Potassium (3.3-5.0) mmol/L Potassium 4.8 (3.5-5.1) mmol/L POC Chloride (101-112) mmol/L Chloride 104 (98-107) mmol/L Carbon Dioxide 30 (21-32) mmol/L POC Total CO2 (24-31) mmol/L Anion Gap 5.0 (3-11) POC Anion Gap (16-25) mmol/L POC BUN (7-18) mg/dl BUN 36 H (7-18) mg/dl Creatinine 1.85 H (0.6-1.4) mg/dl POC Creatinine (0.6-1.3) mg/dl Est Cr Clr Drug Dosing 64.0 ml/min Est GFR ( Amer) 43.0 Est GFR (Non-Af Amer) 37.1 BUN/Creatinine Ratio 19.6 (10-20) Glucose 106 H (70-99) mg/dl POC Glucose 115 H (70-99) mg/dl POC Glucose (other) (70-99) mg/dl Estimat Average Glucose mg/dl Hemoglobin A1c (4.5-5.6) % Lactate (0.4-2.0) mmol/L Calcium 9.3 (8.5-10.1) mg/dl POC Ioniz Calcium Pam (1.12-1.32) mmol/l Magnesium (1.8-2.4) mg/dl Total Bilirubin (0.2-1) mg/dl AST (15-37) U/L ALT (12-78) U/L Alkaline Phosphatase (45-117) U/L Ammonia (11-32) umol/L Total Protein (6.4-8.2) gm/dl Albumin (3.4-5.0) gm/dl Globulin (2.5-4.0) gm/dl Albumin/Globulin Ratio (0.9-2) TSH (0.300-4.500) uIu/ml Urine Color Urine Appearance (Clear) Urine pH (4.5-7.5) Ur Specific [place] (1.000-1.030) Urine Protein (Negative) Urine Glucose (UA) (Negative) Urine Ketones (Negative) Urine Blood (Negative) Urine Nitrite (Negative) Urine Bilirubin (Negative) Urine Urobilinogen (Negative) Ur Leukocyte Esterase (Negative) Urine WBC (Auto) (0-5) /hpf Urine RBC (Auto) (0-4) /hpf U Hyaline Cast (Auto) (0-5) /lpf U Epithel Cells (Auto) (0-5) /lpf Urine Bacteria (Auto) (Negative) Granular Casts (0) /lpf Urine Yeast COVID-19 Eval Order COVID-19 PCR (Negative) 03/25/20 03/24/20 03/24/20 Range/Units 04:21 23:54 23:10 WBC (4.8-10.8) K/uL RBC (4.7-6.1) M/uL Hgb (14.0-18.0) g/dL POC Hgb (14.0-18.0) g/dl Hct (42-52) % POC Hct (42-52) % MCV (80-100) fL MCH (25-34) pg MCHC (32-36) g/dL RDW Std Deviation (36.4-46.3) fL RDW Coeff of Neena (11.5-14.5) % Plt Count (130-400) K/uL MPV (7.4-10.4) fL Immature Gran % (Auto) % Neut % (Auto) % Lymph % (Auto) % Douglas % (Auto) % Eos % (Auto) % Baso % (Auto) % Neut # (Auto) (1.4-6.5) K/uL Lymph # (Auto) (1.2-3.4) K/uL Douglas # (Auto) (0.11-0.59) K/uL Eos # (Auto) (0-0.5) K/uL Baso # (Auto) (0-0.2) K/uL Immature Gran # (Auto) (0.00-0.02) K/uL PT (9.0-12.0) Seconds INR (0.9-1.1) APTT (21.0-31.0) Seconds PTT Ratio ABG pH (7.35-7.45) ABG pCO2 (35-46) mmHg ABG pO2 (80-95) mmHg ABG HCO3 (19-24) mmol/L ABG O2 Saturation (90-95) % ABG Base Excess (-9-1.8) mEq/L Raji Test (Pos) VBG pH (7.36-7.41) VBG pCO2 (38-50) mmHg VBG pO2 mmHg VBG HCO3 mmol/L VBG O2 Saturation % VBG Base Excess mEq/L Barometric Pressure mm/Hg Oxygen Given POC Sodium (135-144) mmol/L Sodium (136-145) mmol/L POC Potassium (3.3-5.0) mmol/L Potassium (3.5-5.1) mmol/L POC Chloride (101-112) mmol/L Chloride (98-107) mmol/L Carbon Dioxide (21-32) mmol/L POC Total CO2 (24-31) mmol/L Anion Gap (3-11) POC Anion Gap (16-25) mmol/L POC BUN (7-18) mg/dl BUN (7-18) mg/dl Creatinine (0.6-1.4) mg/dl POC Creatinine (0.6-1.3) mg/dl Est Cr Clr Drug Dosing ml/min Est GFR ( Amer) Est GFR (Non-Af Amer) BUN/Creatinine Ratio (10-20) Glucose (70-99) mg/dl POC Glucose 114 H 80 88 (70-99) mg/dl POC Glucose (other) (70-99) mg/dl Estimat Average Glucose mg/dl Hemoglobin A1c (4.5-5.6) % Lactate (0.4-2.0) mmol/L Calcium (8.5-10.1) mg/dl POC Ioniz Calcium Pam (1.12-1.32) mmol/l Magnesium (1.8-2.4) mg/dl Total Bilirubin (0.2-1) mg/dl AST (15-37) U/L ALT (12-78) U/L Alkaline Phosphatase (45-117) U/L Ammonia (11-32) umol/L Total Protein (6.4-8.2) gm/dl Albumin (3.4-5.0) gm/dl Globulin (2.5-4.0) gm/dl Albumin/Globulin Ratio (0.9-2) TSH (0.300-4.500) uIu/ml Urine Color Urine Appearance (Clear) Urine pH (4.5-7.5) Ur Specific [place] (1.000-1.030) Urine Protein (Negative) Urine Glucose (UA) (Negative) Urine Ketones (Negative) Urine Blood (Negative) Urine Nitrite (Negative) Urine Bilirubin (Negative) Urine Urobilinogen (Negative) Ur Leukocyte Esterase (Negative) Urine WBC (Auto) (0-5) /hpf Urine RBC (Auto) (0-4) /hpf U Hyaline Cast (Auto) (0-5) /lpf U Epithel Cells (Auto) (0-5) /lpf Urine Bacteria (Auto) (Negative) Granular Casts (0) /lpf Urine Yeast COVID-19 Eval Order COVID-19 PCR (Negative) 03/24/20 03/24/20 03/24/20 Range/Units 21:58 20:54 20:54 WBC (4.8-10.8) K/uL RBC (4.7-6.1) M/uL Hgb (14.0-18.0) g/dL POC Hgb (14.0-18.0) g/dl Hct (42-52) % POC Hct (42-52) % MCV (80-100) fL MCH (25-34) pg MCHC (32-36) g/dL RDW Std Deviation (36.4-46.3) fL RDW Coeff of Neena (11.5-14.5) % Plt Count (130-400) K/uL MPV (7.4-10.4) fL Immature Gran % (Auto) % Neut % (Auto) % Lymph % (Auto) % Douglas % (Auto) % Eos % (Auto) % Baso % (Auto) % Neut # (Auto) (1.4-6.5) K/uL Lymph # (Auto) (1.2-3.4) K/uL Douglas # (Auto) (0.11-0.59) K/uL Eos # (Auto) (0-0.5) K/uL Baso # (Auto) (0-0.2) K/uL Immature Gran # (Auto) (0.00-0.02) K/uL PT (9.0-12.0) Seconds INR (0.9-1.1) APTT (21.0-31.0) Seconds PTT Ratio ABG pH 7.34 L (7.35-7.45) ABG pCO2 64 H (35-46) mmHg ABG pO2 145 H (80-95) mmHg ABG HCO3 34 H (19-24) mmol/L ABG O2 Saturation 98.4 H (90-95) % ABG Base Excess 6.7 H (-9-1.8) mEq/L Raji Test POS (Pos) VBG pH (7.36-7.41) VBG pCO2 (38-50) mmHg VBG pO2 mmHg VBG HCO3 mmol/L VBG O2 Saturation % VBG Base Excess mEq/L Barometric Pressure 728.3 mm/Hg Oxygen Given 40% POC Sodium (135-144) mmol/L Sodium (136-145) mmol/L POC Potassium (3.3-5.0) mmol/L Potassium (3.5-5.1) mmol/L POC Chloride (101-112) mmol/L Chloride (98-107) mmol/L Carbon Dioxide (21-32) mmol/L POC Total CO2 (24-31) mmol/L Anion Gap (3-11) POC Anion Gap (16-25) mmol/L POC BUN (7-18) mg/dl BUN (7-18) mg/dl Creatinine (0.6-1.4) mg/dl POC Creatinine (0.6-1.3) mg/dl Est Cr Clr Drug Dosing ml/min Est GFR ( Amer) Est GFR (Non-Af Amer) BUN/Creatinine Ratio (10-20) Glucose (70-99) mg/dl POC Glucose 94 (70-99) mg/dl POC Glucose (other) (70-99) mg/dl Estimat Average Glucose mg/dl Hemoglobin A1c (4.5-5.6) % Lactate (0.4-2.0) mmol/L Calcium (8.5-10.1) mg/dl POC Ioniz Calcium Pam (1.12-1.32) mmol/l Magnesium (1.8-2.4) mg/dl Total Bilirubin (0.2-1) mg/dl AST (15-37) U/L ALT (12-78) U/L Alkaline Phosphatase (45-117) U/L Ammonia 51.7 H (11-32) umol/L Total Protein (6.4-8.2) gm/dl Albumin (3.4-5.0) gm/dl Globulin (2.5-4.0) gm/dl Albumin/Globulin Ratio (0.9-2) TSH (0.300-4.500) uIu/ml Urine Color Urine Appearance (Clear) Urine pH (4.5-7.5) Ur Specific [place] (1.000-1.030) Urine Protein (Negative) Urine Glucose (UA) (Negative) Urine Ketones (Negative) Urine Blood (Negative) Urine Nitrite (Negative) Urine Bilirubin (Negative) Urine Urobilinogen (Negative) Ur Leukocyte Esterase (Negative) Urine WBC (Auto) (0-5) /hpf Urine RBC (Auto) (0-4) /hpf U Hyaline Cast (Auto) (0-5) /lpf U Epithel Cells (Auto) (0-5) /lpf Urine Bacteria (Auto) (Negative) Granular Casts (0) /lpf Urine Yeast COVID-19 Eval Order COVID-19 PCR (Negative) 03/24/20 03/24/20 03/24/20 Range/Units 20:50 20:05 19:58 WBC (4.8-10.8) K/uL RBC (4.7-6.1) M/uL Hgb (14.0-18.0) g/dL POC Hgb (14.0-18.0) g/dl Hct (42-52) % POC Hct (42-52) % MCV (80-100) fL MCH (25-34) pg MCHC (32-36) g/dL RDW Std Deviation (36.4-46.3) fL RDW Coeff of Neena (11.5-14.5) % Plt Count (130-400) K/uL MPV (7.4-10.4) fL Immature Gran % (Auto) % Neut % (Auto) % Lymph % (Auto) % Douglas % (Auto) % Eos % (Auto) % Baso % (Auto) % Neut # (Auto) (1.4-6.5) K/uL Lymph # (Auto) (1.2-3.4) K/uL [place] # (Auto) (0.11-0.59) K/uL Eos # (Auto) (0-0.5) K/uL Baso # (Auto) (0-0.2) K/uL Immature Gran # (Auto) (0.00-0.02) K/uL PT (9.0-12.0) Seconds INR (0.9-1.1) APTT (21.0-31.0) Seconds PTT Ratio ABG pH (7.35-7.45) ABG pCO2 (35-46) mmHg ABG pO2 (80-95) mmHg ABG HCO3 (19-24) mmol/L ABG O2 Saturation (90-95) % ABG Base Excess (-9-1.8) mEq/L Raji Test (Pos) VBG pH (7.36-7.41) VBG pCO2 (38-50) mmHg VBG pO2 mmHg VBG HCO3 mmol/L VBG O2 Saturation % VBG Base Excess mEq/L Barometric Pressure mm/Hg Oxygen Given POC Sodium (135-144) mmol/L Sodium (136-145) mmol/L POC Potassium (3.3-5.0) mmol/L Potassium (3.5-5.1) mmol/L POC Chloride (101-112) mmol/L Chloride (98-107) mmol/L Carbon Dioxide (21-32) mmol/L POC Total CO2 (24-31) mmol/L Anion Gap (3-11) POC Anion Gap (16-25) mmol/L POC BUN (7-18) mg/dl BUN (7-18) mg/dl Creatinine (0.6-1.4) mg/dl POC Creatinine (0.6-1.3) mg/dl Est Cr Clr Drug Dosing ml/min Est GFR ( Amer) Est GFR (Non-Af Amer) BUN/Creatinine Ratio (10-20) Glucose (70-99) mg/dl POC Glucose 65 L* 76 (70-99) mg/dl POC Glucose (other) (70-99) mg/dl Estimat Average Glucose mg/dl Hemoglobin A1c (4.5-5.6) % Lactate (0.4-2.0) mmol/L Calcium (8.5-10.1) mg/dl POC Ioniz Calcium Pam (1.12-1.32) mmol/l Magnesium (1.8-2.4) mg/dl Total Bilirubin (0.2-1) mg/dl AST (15-37) U/L ALT (12-78) U/L Alkaline Phosphatase (45-117) U/L Ammonia (11-32) umol/L Total Protein (6.4-8.2) gm/dl Albumin (3.4-5.0) gm/dl Globulin (2.5-4.0) gm/dl Albumin/Globulin Ratio (0.9-2) TSH (0.300-4.500) uIu/ml Urine Color Dark Yellow Urine Appearance Cloudy A (Clear) Urine pH 5.5 (4.5-7.5) Ur Specific [place] 1.017 (1.000-1.030) Urine Protein 1+ H (Negative) Urine Glucose (UA) Negative (Negative) Urine Ketones Negative (Negative) Urine Blood 2+ H (Negative) Urine Nitrite Negative (Negative) Urine Bilirubin Negative (Negative) Urine Urobilinogen Negative (Negative) Ur Leukocyte Esterase 3+ H (Negative) Urine WBC (Auto) >30 H (0-5) /hpf Urine RBC (Auto) >30 H (0-4) /hpf U Hyaline Cast (Auto) 1-5 (0-5) /lpf U Epithel Cells (Auto) 5-10 H (0-5) /lpf Urine Bacteria (Auto) 4+ H (Negative) Granular Casts 1-5 H (0) /lpf Urine Yeast Not Reportable COVID-19 Eval Order COVID-19 PCR (Negative) 03/24/20 03/24/20 03/24/20 Range/Units 19:19 19:15 19:15 WBC (4.8-10.8) K/uL RBC (4.7-6.1) M/uL Hgb (14.0-18.0) g/dL POC Hgb (14.0-18.0) g/dl Hct (42-52) % POC Hct (42-52) % MCV (80-100) fL MCH (25-34) pg MCHC (32-36) g/dL RDW Std Deviation (36.4-46.3) fL RDW Coeff of Neena (11.5-14.5) % Plt Count (130-400) K/uL MPV (7.4-10.4) fL Immature Gran % (Auto) % Neut % (Auto) % Lymph % (Auto) % Douglas % (Auto) % Eos % (Auto) % Baso % (Auto) % Neut # (Auto) (1.4-6.5) K/uL Lymph # (Auto) (1.2-3.4) K/uL [place] # (Auto) (0.11-0.59) K/uL Eos # (Auto) (0-0.5) K/uL Baso # (Auto) (0-0.2) K/uL Immature Gran # (Auto) (0.00-0.02) K/uL PT (9.0-12.0) Seconds INR (0.9-1.1) APTT (21.0-31.0) Seconds PTT Ratio ABG pH (7.35-7.45) ABG pCO2 (35-46) mmHg ABG pO2 (80-95) mmHg ABG HCO3 (19-24) mmol/L ABG O2 Saturation (90-95) % ABG Base Excess (-9-1.8) mEq/L Raji Test (Pos) VBG pH (7.36-7.41) VBG pCO2 (38-50) mmHg VBG pO2 mmHg VBG HCO3 mmol/L VBG O2 Saturation % VBG Base Excess mEq/L Barometric Pressure mm/Hg Oxygen Given POC Sodium (135-144) mmol/L Sodium (136-145) mmol/L POC Potassium (3.3-5.0) mmol/L Potassium (3.5-5.1) mmol/L POC Chloride (101-112) mmol/L Chloride (98-107) mmol/L Carbon Dioxide (21-32) mmol/L POC Total CO2 (24-31) mmol/L Anion Gap (3-11) POC Anion Gap (16-25) mmol/L POC BUN (7-18) mg/dl BUN (7-18) mg/dl Creatinine (0.6-1.4) mg/dl POC Creatinine (0.6-1.3) mg/dl Est Cr Clr Drug Dosing ml/min Est GFR ( Amer) Est GFR (Non-Af Amer) BUN/Creatinine Ratio (10-20) Glucose (70-99) mg/dl POC Glucose 61 L* (70-99) mg/dl POC Glucose (other) (70-99) mg/dl Estimat Average Glucose mg/dl Hemoglobin A1c (4.5-5.6) % Lactate (0.4-2.0) mmol/L Calcium (8.5-10.1) mg/dl POC Ioniz Calcium Pam (1.12-1.32) mmol/l Magnesium (1.8-2.4) mg/dl Total Bilirubin (0.2-1) mg/dl AST (15-37) U/L ALT (12-78) U/L Alkaline Phosphatase (45-117) U/L Ammonia (11-32) umol/L Total Protein (6.4-8.2) gm/dl Albumin (3.4-5.0) gm/dl Globulin (2.5-4.0) gm/dl Albumin/Globulin Ratio (0.9-2) TSH (0.300-4.500) uIu/ml Urine Color Urine Appearance (Clear) Urine pH (4.5-7.5) Ur Specific [place] (1.000-1.030) Urine Protein (Negative) Urine Glucose (UA) (Negative) Urine Ketones (Negative) Urine Blood (Negative) Urine Nitrite (Negative) Urine Bilirubin (Negative) Urine Urobilinogen (Negative) Ur Leukocyte Esterase (Negative) Urine WBC (Auto) (0-5) /hpf Urine RBC (Auto) (0-4) /hpf U Hyaline Cast (Auto) (0-5) /lpf U Epithel Cells (Auto) (0-5) /lpf Urine Bacteria (Auto) (Negative) Granular Casts (0) /lpf Urine Yeast COVID-19 Eval Order Covid19 Done at [facility] COVID-19 PCR NEGATIVE (Negative) 03/24/20 03/24/20 03/24/20 Range/Units 19:12 18:58 18:58 WBC (4.8-10.8) K/uL RBC (4.7-6.1) M/uL Hgb (14.0-18.0) g/dL POC Hgb 11.2 L (14.0-18.0) g/dl Hct (42-52) % POC Hct 33 L (42-52) % MCV (80-100) fL MCH (25-34) pg MCHC (32-36) g/dL RDW Std Deviation (36.4-46.3) fL RDW Coeff of Neena (11.5-14.5) % Plt Count (130-400) K/uL MPV (7.4-10.4) fL Immature Gran % (Auto) % Neut % (Auto) % Lymph % (Auto) % [place] % (Auto) % Eos % (Auto) % Baso % (Auto) % Neut # (Auto) (1.4-6.5) K/uL Lymph # (Auto) (1.2-3.4) K/uL [place] # (Auto) (0.11-0.59) K/uL Eos # (Auto) (0-0.5) K/uL Baso # (Auto) (0-0.2) K/uL Immature Gran # (Auto) (0.00-0.02) K/uL PT (9.0-12.0) Seconds INR (0.9-1.1) APTT (21.0-31.0) Seconds PTT Ratio ABG pH (7.35-7.45) ABG pCO2 (35-46) mmHg ABG pO2 (80-95) mmHg ABG HCO3 (19-24) mmol/L ABG O2 Saturation (90-95) % ABG Base Excess (-9-1.8) mEq/L Raji Test (Pos) VBG pH (7.36-7.41) VBG pCO2 (38-50) mmHg VBG pO2 mmHg VBG HCO3 mmol/L VBG O2 Saturation % VBG Base Excess mEq/L Barometric Pressure mm/Hg Oxygen Given POC Sodium 141 (135-144) mmol/L Sodium (136-145) mmol/L POC Potassium 4.8 (3.3-5.0) mmol/L Potassium (3.5-5.1) mmol/L POC Chloride 97 L (101-112) mmol/L Chloride (98-107) mmol/L Carbon Dioxide (21-32) mmol/L POC Total CO2 30 (24-31) mmol/L Anion Gap (3-11) POC Anion Gap 20.0 (16-25) mmol/L POC BUN 33 H (7-18) mg/dl BUN (7-18) mg/dl Creatinine (0.6-1.4) mg/dl POC Creatinine 1.6 H (0.6-1.3) mg/dl Est Cr Clr Drug Dosing ml/min Est GFR ( Amer) Est GFR (Non-Af Amer) BUN/Creatinine Ratio (10-20) Glucose (70-99) mg/dl POC Glucose (70-99) mg/dl POC Glucose (other) 72 (70-99) mg/dl Estimat Average Glucose 117 mg/dl Hemoglobin A1c 5.7 H (4.5-5.6) % Lactate 1.3 (0.4-2.0) mmol/L Calcium (8.5-10.1) mg/dl POC Ioniz Calcium Pam 1.22 (1.12-1.32) mmol/l Magnesium (1.8-2.4) mg/dl Total Bilirubin (0.2-1) mg/dl AST (15-37) U/L ALT (12-78) U/L Alkaline Phosphatase (45-117) U/L Ammonia (11-32) umol/L Total Protein (6.4-8.2) gm/dl Albumin (3.4-5.0) gm/dl Globulin (2.5-4.0) gm/dl Albumin/Globulin Ratio (0.9-2) TSH (0.300-4.500) uIu/ml Urine Color Urine Appearance (Clear) Urine pH (4.5-7.5) Ur Specific [place] (1.000-1.030) Urine Protein (Negative) Urine Glucose (UA) (Negative) Urine Ketones (Negative) Urine Blood (Negative) Urine Nitrite (Negative) Urine Bilirubin (Negative) Urine Urobilinogen (Negative) Ur Leukocyte Esterase (Negative) Urine WBC (Auto) (0-5) /hpf Urine RBC (Auto) (0-4) /hpf U Hyaline Cast (Auto) (0-5) /lpf U Epithel Cells (Auto) (0-5) /lpf Urine Bacteria (Auto) (Negative) Granular Casts (0) /lpf Urine Yeast COVID-19 Eval Order COVID-19 PCR (Negative) 03/24/20 03/24/20 03/24/20 Range/Units 18:58 18:58 18:58 WBC 5.78 (4.8-10.8) K/uL RBC 3.56 L (4.7-6.1) M/uL Hgb 9.6 L (14.0-18.0) g/dL POC Hgb (14.0-18.0) g/dl Hct 32.5 L (42-52) % POC Hct (42-52) % MCV 91.3 (80-100) fL MCH 27.0 (25-34) pg MCHC 29.5 L (32-36) g/dL RDW Std Deviation 59.1 H (36.4-46.3) fL RDW Coeff of Neena 17.7 H (11.5-14.5) % Plt Count 200 (130-400) K/uL MPV 9.7 (7.4-10.4) fL Immature Gran % (Auto) 0.3 % Neut % (Auto) 71.0 % Lymph % (Auto) 19.0 % [place] % (Auto) 8.3 % Eos % (Auto) 0.9 % Baso % (Auto) 0.5 % Neut # (Auto) 4.10 (1.4-6.5) K/uL Lymph # (Auto) 1.10 L (1.2-3.4) K/uL Douglas # (Auto) 0.48 (0.11-0.59) K/uL Eos # (Auto) 0.05 (0-0.5) K/uL Baso # (Auto) 0.03 (0-0.2) K/uL Immature Gran # (Auto) 0.02 (0.00-0.02) K/uL PT 11.9 (9.0-12.0) Seconds INR 1.1 (0.9-1.1) APTT 25.9 (21.0-31.0) Seconds PTT Ratio 0.9 ABG pH (7.35-7.45) ABG pCO2 (35-46) mmHg ABG pO2 (80-95) mmHg ABG HCO3 (19-24) mmol/L ABG O2 Saturation (90-95) % ABG Base Excess (-9-1.8) mEq/L Raji Test (Pos) VBG pH (7.36-7.41) VBG pCO2 (38-50) mmHg VBG pO2 mmHg VBG HCO3 mmol/L VBG O2 Saturation % VBG Base Excess mEq/L Barometric Pressure mm/Hg Oxygen Given POC Sodium (135-144) mmol/L Sodium 139 (136-145) mmol/L POC Potassium (3.3-5.0) mmol/L Potassium 4.7 (3.5-5.1) mmol/L POC Chloride (101-112) mmol/L Chloride 103 (98-107) mmol/L Carbon Dioxide 35 H (21-32) mmol/L POC Total CO2 (24-31) mmol/L Anion Gap 1.0 L (3-11) POC Anion Gap (16-25) mmol/L POC BUN (7-18) mg/dl BUN 32 H (7-18) mg/dl Creatinine 1.77 H (0.6-1.4) mg/dl POC Creatinine (0.6-1.3) mg/dl Est Cr Clr Drug Dosing 75.1 ml/min Est GFR ( Amer) 45.4 Est GFR (Non-Af Amer) 39.2 BUN/Creatinine Ratio 18.2 (10-20) Glucose 71 (70-99) mg/dl POC Glucose (70-99) mg/dl POC Glucose (other) (70-99) mg/dl Estimat Average Glucose mg/dl Hemoglobin A1c (4.5-5.6) % Lactate (0.4-2.0) mmol/L Calcium 8.8 (8.5-10.1) mg/dl POC Ioniz Calcium Pam (1.12-1.32) mmol/l Magnesium 2.4 (1.8-2.4) mg/dl Total Bilirubin 0.3 (0.2-1) mg/dl AST 32 (15-37) U/L ALT 17 (12-78) U/L Alkaline Phosphatase 101 (45-117) U/L Ammonia (11-32) umol/L Total Protein 8.8 H (6.4-8.2) gm/dl Albumin 2.7 L (3.4-5.0) gm/dl Globulin 6.1 H (2.5-4.0) gm/dl Albumin/Globulin Ratio 0.4 L (0.9-2) TSH 4.030 (0.300-4.500) uIu/ml Urine Color Urine Appearance (Clear) Urine pH (4.5-7.5) Ur Specific [place] (1.000-1.030) Urine Protein (Negative) Urine Glucose (UA) (Negative) Urine Ketones (Negative) Urine Blood (Negative) Urine Nitrite (Negative) Urine Bilirubin (Negative) Urine Urobilinogen (Negative) Ur Leukocyte Esterase (Negative) Urine WBC (Auto) (0-5) /hpf Urine RBC (Auto) (0-4) /hpf U Hyaline Cast (Auto) (0-5) /lpf U Epithel Cells (Auto) (0-5) /lpf Urine Bacteria (Auto) (Negative) Granular Casts (0) /lpf Urine Yeast COVID-19 Eval Order COVID-19 PCR (Negative) 03/24/20 03/24/20 Range/Units 18:58 18:46 WBC (4.8-10.8) K/uL RBC (4.7-6.1) M/uL Hgb (14.0-18.0) g/dL POC Hgb (14.0-18.0) g/dl Hct (42-52) % POC Hct (42-52) % MCV (80-100) fL MCH (25-34) pg MCHC (32-36) g/dL RDW Std Deviation (36.4-46.3) fL RDW Coeff of Neena (11.5-14.5) % Plt Count (130-400) K/uL MPV (7.4-10.4) fL Immature Gran % (Auto) % Neut % (Auto) % Lymph % (Auto) % [place] % (Auto) % Eos % (Auto) % Baso % (Auto) % Neut # (Auto) (1.4-6.5) K/uL Lymph # (Auto) (1.2-3.4) K/uL [place] # (Auto) (0.11-0.59) K/uL Eos # (Auto) (0-0.5) K/uL Baso # (Auto) (0-0.2) K/uL Immature Gran # (Auto) (0.00-0.02) K/uL PT (9.0-12.0) Seconds INR (0.9-1.1) APTT (21.0-31.0) Seconds PTT Ratio ABG pH (7.35-7.45) ABG pCO2 (35-46) mmHg ABG pO2 (80-95) mmHg ABG HCO3 (19-24) mmol/L ABG O2 Saturation (90-95) % ABG Base Excess (-9-1.8) mEq/L Raji Test (Pos) VBG pH 7.35 L (7.36-7.41) VBG pCO2 62 H (38-50) mmHg VBG pO2 40 mmHg VBG HCO3 34 mmol/L VBG O2 Saturation 68.2 % VBG Base Excess 6.5 mEq/L Barometric Pressure 727.4 mm/Hg Oxygen Given POC Sodium (135-144) mmol/L Sodium (136-145) mmol/L POC Potassium (3.3-5.0) mmol/L Potassium (3.5-5.1) mmol/L POC Chloride (101-112) mmol/L Chloride (98-107) mmol/L Carbon Dioxide (21-32) mmol/L POC Total CO2 (24-31) mmol/L Anion Gap (3-11) POC Anion Gap (16-25) mmol/L POC BUN (7-18) mg/dl BUN (7-18) mg/dl Creatinine (0.6-1.4) mg/dl POC Creatinine (0.6-1.3) mg/dl Est Cr Clr Drug Dosing ml/min Est GFR ( Amer) Est GFR (Non-Af Amer) BUN/Creatinine Ratio (10-20) Glucose (70-99) mg/dl POC Glucose 89 (70-99) mg/dl POC Glucose (other) (70-99) mg/dl Estimat Average Glucose mg/dl Hemoglobin A1c (4.5-5.6) % Lactate (0.4-2.0) mmol/L Calcium (8.5-10.1) mg/dl POC Ioniz Calcium Pam (1.12-1.32) mmol/l Magnesium (1.8-2.4) mg/dl Total Bilirubin (0.2-1) mg/dl AST (15-37) U/L ALT (12-78) U/L Alkaline Phosphatase (45-117) U/L Ammonia (11-32) umol/L Total Protein (6.4-8.2) gm/dl Albumin (3.4-5.0) gm/dl Globulin (2.5-4.0) gm/dl Albumin/Globulin Ratio (0.9-2) TSH (0.300-4.500) uIu/ml Urine Color Urine Appearance (Clear) Urine pH (4.5-7.5) Ur Specific [place] (1.000-1.030) Urine Protein (Negative) Urine Glucose (UA) (Negative) Urine Ketones (Negative) Urine Blood (Negative) Urine Nitrite (Negative) Urine Bilirubin (Negative) Urine Urobilinogen (Negative) Ur Leukocyte Esterase (Negative) Urine WBC (Auto) (0-5) /hpf Urine RBC (Auto) (0-4) /hpf U Hyaline Cast (Auto) (0-5) /lpf U Epithel Cells (Auto) (0-5) /lpf Urine Bacteria (Auto) (Negative) Granular Casts (0) /lpf Urine Yeast COVID-19 Eval Order COVID-19 PCR (Negative) Medications Administered Current Inpatient Medications Acetaminophen (Acetaminophen 325 Mg Tab) 325 mg PO Q6H PRN PRN Reason: Mild Pain Stop: 04/23/20 23:49 Albuterol (Albut/Ipratrop 3mg/0.5mg Neb 3 Ml Vial) 3 ml NEB QIDR [facility] Stop: 04/24/20 06:59 Last Admin: 03/25/20 11:18 Dose: 3 ml Documented by: Dextrose (Dextrose 50% 50 Ml Syringe) 25 - 50 ml IV UD PRN; Protocol PRN Reason: Hypoglycemia Protocol Stop: 04/23/20 23:49 Doxycycline Hyclate (Doxycycline Hyclate 100 Mg Cap) 100 mg PO BID [facility] Stop: 04/01/20 08:59 Last Admin: 03/25/20 09:14 Dose: 100 mg Documented by: Fluoxetine HCl (Fluoxetine Hcl 20 Mg Cap) 20 mg PO DAILY [facility] Stop: 04/24/20 08:59 Last Admin: 03/25/20 09:15 Dose: 20 mg Documented by: Fluoxetine HCl (Fluoxetine Hcl 10 Mg Cap) 10 mg PO DAILY [facility] Stop: 04/24/20 08:59 Last Admin: 03/25/20 09:15 Dose: 10 mg Documented by: Glucagon (Glucagon For Inj 1 Mg Vial) 1 mg SQ UD PRN; Protocol PRN Reason: Hypoglycemia Protocol Stop: 04/23/20 23:49 Glucose (Glucose 10 Tabs/Tube) 4 - 8 tabs PO UD PRN; Protocol PRN Reason: Hypoglycemia Protocol Stop: 04/23/20 23:49 Glucose (Glucose 40% Gel 15 Gm Tube) 15 - 30 gm PO UD PRN; Protocol PRN Reason: Hypoglycemia Protocol Stop: 04/23/20 23:49 Heparin Sodium (Porcine) (Heparin Sod 5,000 Unit/0.5 Ml Vial) 5,000 units SQ Q8 [facility] Stop: 04/23/20 23:49 Last Admin: 03/25/20 05:38 Dose: 5,000 units Documented by: Hydralazine HCl (Hydralazine Tab 50 Mg Tab) 50 mg PO QID [facility] Stop: 04/24/20 08:59 Last Admin: 03/25/20 09:15 Dose: 50 mg Documented by: Cefepime HCl 2,000 mg/ Syringe 20 mls @ 5 mls/min IV Q12H [facility]; Protocol Stop: 04/04/20 01:59 Last Admin: 03/25/20 01:39 Dose: 5 mls/min Documented by: Influenza Virus Vaccine (Influenza Vaccine High Dose 65+ 0.5 Ml Syr) 0.5 ml IM .ONCE ONE Stop: 03/27/20 09:01 Insulin Aspart (Insulin Aspart 100 Units/Ml 3 Ml Pen) 0 units SC ACHS [facility] Stop: 04/23/20 23:49 Last Admin: 03/25/20 10:37 Dose: Not Given Documented by: Lactulose (Lactulose Syrup 30 Gm/45 Ml Udp) 30 gm PO TID [facility] Stop: 04/23/20 23:49 Last Admin: 03/25/20 09:15 Dose: 30 gm Documented by: Levothyroxine Sodium (Levothyroxine Sodium 25 Mcg Tablet) [facility] Stop: 04/24/20 06:29 Last Admin: 03/25/20 05:37 Dose: 25 mcg Documented by: Levothyroxine Sodium (Levothyroxine Sodium 200 Mcg Tablet) [facility] Stop: 04/24/20 06:29 Last Admin: 03/25/20 05:38 Dose: 200 mcg Documented by: Metoprolol Succinate (Metoprolol Succ 25mg Ext Rel Tab) 25 mg PO QAM [facility] Stop: 04/24/20 08:59 Last Admin: 03/25/20 09:14 Dose: 25 mg Documented by: Miconazole Nitrate (Miconazole Nitrate Powder 43 Gm) 1 appln EXT PRN PRN PRN Reason: Affected Skin Folds Stop: 04/24/20 06:29 Miscellaneous (Carbohydrates For Hypoglycemia ) 15 - 30 gm PO UD PRN PRN Reason: Hypoglycemia Protocol Stop: 04/23/20 23:49 Miscellaneous Information (Cefepime Consult Active) 1 ea N/A UD PRN PRN Reason: Consult Stop: 04/24/20 00:46 Nitroglycerin (Nitroglycerin Sl 0.4 Mg/Tab Tab) 0.4 mg SL UD PRN PRN Reason: Chest Pain Stop: 04/23/20 23:49 Pantoprazole Sodium (Pantoprazole 40 Mg Tab) 40 mg PO BID [facility] Stop: 04/24/20 08:59 Last Admin: 03/25/20 09:15 Dose: 40 mg Documented by: Prednisone (Prednisone 20 Mg Tab) 40 mg PO DAILY [facility] Stop: 03/29/20 08:59 Last Admin: 03/25/20 09:15 Dose: 40 mg Documented by:
--- NOTE | 2020-03-25 13:01 | Ultrasound Report ---
ULTRASOUND RIGHT UPPER QUADRANT ABDOMEN CLINICAL HISTORY: Elevated serum ammonia levels. COMPARISON STUDY: KUB dated 10/24/2018. TECHNIQUE: Real-time, grayscale, and color flow sonography of the right upper quadrant of the abdomen was performed. Images are reviewed in the transverse and longitudinal planes. Examination is signifi cantly degraded by large body habitus and inability of the patient breath-hold. FINDINGS: Liver: The liver appears enlarged, heterogeneous in echotexture, and nodularity of the surface contou r. This suggests changes of cirrhosis. There is no intrahepatic biliary ductal dilatation. The main p ortal vein is patent. Gallbladder: The gallbladder is subtle visualized and grossly normal in appearance. No shadowing gall stones are clearly identified. There is evidence of no gallbladder wall thickening or pericholecystic fluid. A sonographic Claire's sign is reportedly absent. The common bile duct is not clearly visuali zed. Pancreas: Not visualized due to overlying bowel gas. Right kidney: Survey images of the right kidney demonstrate normal size and echotexture. There is no hydronephrosis. Ascites: None. Pleural spaces: There is a right pleural effusion. IMPRESSION: 1. Significantly suboptimal examination as detailed above. 2. The liver appears enlarged and cirrhotic in morphology. 3. No gallstones are identified. A 4. Nonvisualization of the pancreas. 5. Right pleural effusion. ACT 112: Negative or not required by law. Electronically signed by: Greg Rodriges M.D. 03/25/2020 12:59 PM
[2020-03-25 16:40] LABS: BUN Creatinine Ratio 19.9 (10-20); Calcium 8.9 mg/dl (8.5-10.1); Est GFR (African American) 41.4; Est GFR (Non-African American) 35.7; Magnesium 2.4 mg/dl (1.8-2.4); Phosphorus 3.5 mg/dl (2.5-4.9)
[2020-03-25] MEDS: FUROSEMIDE 40 MG in SYRINGE 0 ML IV SCH (16:54)
[2020-03-25] MEDS: methylPREDNISolone 40 MG in SYRINGE 0 ML IV SCH (16:54)
--- NOTE | 2020-03-25 17:15 | XRay Report ---
XR chest 1V portable CLINICAL HISTORY: follow up cxr COMPARISON STUDY: Chest radiograph March 24, 2020. FINDINGS: Evaluation is difficult given difficulty positioning. There is no pneumothorax. Moderate ca rdiomegaly is noted. Small to moderate right and small left pleural effusions are noted. Bilateral ai rspace opacities persist as well as interstitial thickening. IMPRESSION: 1. No significant change in appearance of the chest. Cardiomegaly with suspected pulmonary edema. 2. Bilateral airspace opacities which may reflect pulmonary edema or an infectious process. 3. Small to moderate right and small left pleural effusions. ACT 112: Negative or not required by law. Electronically signed by: Remington Bazan M.D. 03/25/2020 5:13 PM
[2020-03-25] MEDS ORDERED: ALBUMIN 25% 50 ML IV ONE ×2 (17:28→21:00)
--- NOTE | 2020-03-25 17:42 | Electrocardiogram Report ---
Test Reason : Blood Pressure : / mmHG Vent. Rate : 060 BPM Atrial Rate : 061 BPM P-R Int : 184 ms QRS Dur : 088 ms QT Int : 482 ms P-R-T Axes : 032 -85 038 degrees QTc Int : 482 ms Likely sinus rhythm with sinus arrhythmia Left bundle branch block Left axis deviation Low voltage QRS Abnormal ECG When compared with ECG of 29-NOV-2019 20:32, minimal change Confirmed by Edgar Roger ([id number]) on 03/25/2020 5:41:41 PM Referred By: REFERRED SELF Confirmed By:Wilfrido Roger
[2020-03-25 18:54] LABS: Base Excess ABG 6.2 mEq/L (-9-1.8); HCO3 ABG 32 mmol/L (19-24); PCO2 ABG 55 mmHg (35-46); PO2 ABG 93 mmHg (80-95); pH ABG 7.39 (7.35-7.45)
[2020-03-25 19:12] LABS: Allen Test Pos (Pos)
[2020-03-25] MEDS ORDERED: FUROSEMIDE 40 MG in SYRINGE 0 ML IV ONE (21:00)
[2020-03-26] MEDS: ALBUT/IPRATROP 3MG/0.5MG NEB 3 ML VIAL NEB SCH ×10 (00:09→17:55)
[2020-03-26] MEDS: CEFEPIME 2,000 MG in SYRINGE 0 ML IV SCH ×2 (02:21→14:13)
[2020-03-26] MEDS: methylPREDNISolone 40 MG in SYRINGE 0 ML IV SCH ×3 (02:21→16:22)
[2020-03-26] MEDS: HEPARIN SOD 5,000 UNIT/0.5 ML VIAL SQ SCH ×3 (05:49→21:20)
[2020-03-26] MEDS: LEVOTHYROXINE SODIUM 200 MCG TABLET PO SCH (06:25)
[2020-03-26] MEDS: LEVOTHYROXINE SODIUM 25 MCG TABLET PO SCH (06:26)
[2020-03-26 07:30] LABS: BUN Creatinine Ratio 18.8 (10-20); Creatinine Clr Calc Pharmacy 51.7 ml/min; Est GFR (African American) 31.9; Est GFR (Non-African American) 27.5; Magnesium 2.4 mg/dl (1.8-2.4); Potassium 5.2 mmol/L (3.5-5.1)
[2020-03-26 07:33] LABS: Phosphorus 4.3 mg/dl (2.5-4.9)
[2020-03-26] MEDS ORDERED: ALBUMIN 25% 50 ML IV ONE ×2 (08:11→14:40)
--- NOTE | 2020-03-26 08:13 | Hospitalist Progress Note ---
Date of Service March 26, 2020 Assessment & Plan (1) Acute on chronic respiratory failure with hypoxia and hypercapnia: (2) Acute on chronic diastolic heart failure: (3) Acute metabolic encephalopathy: (4) UTI (urinary tract infection): (5) Acute worsening of stage 3 chronic kidney disease: (6) Diabetes mellitus, type 2: (7) Anemia: (8) SAFIA (obstructive sleep apnea): (9) Obesity hypoventilation syndrome: Encephalopathy Multifactorial : Acute on chronic hypoxemic, hypercapnic respiratory failure secondary to decompensated heart failure/COPD exacerbation, hx OHS ELVI possible Cardiorenal syndrome Complicated UTI, no sepsis Hyperammonemia, possible acute hepatic encephalopathy, possible chronic liver disease given fatty liver findings on abdominal ultrasound from 2000 Hypoglycemia, hx DM2 insulin requiring, reasonable control as of recent outpatient hemoglobin A1c of 7.22 November 2019 Gram positive bacteremia -possible contaminant, however for now will cover with IV antibiotics and will closely monitor, repeat blood cultures Continue BiPAP -mental status improved as of March 26 evening ELVI with oliguria-worsening renal function, despite IV diuretics Lasix-albumin given kidney dysfunction, Nephrology consulted, patient likely has ATN from hypoxia, hypercapnia in the setting of respiratory failure Is can obtain to better evaluate fluid status There is increased tone IV Lasix 100 mg IV every 8 hours and metolazone 5 mg Overall prognosis of the patient is quite poor Strict I/Os, daily weights, CHF education, fluid restriction Cardiology consult RE CHF -continue diuretic therapy per nephrology, continue BiPAP, no additional cardiac testing indicated at this time Monitor renal function with diuretic Rx Doxycycline, nebs, prednisone course for COPD exacerbation Follow urine cultures, IV Cefepime for complicated UTI Lactulose for possible hepatic encephalopathy, liver ultrasound rule out chronic liver disease, may need GI consultation Appropriate to hold basal insulin for now given hypoglycemic episodes, ISS BG goal [id number], update hemoglobin A1c chronic LBBB hypertension, slightly elevated hyperlipidemia on statin Rx chronic anemia, hemoglobin at baseline hypothyroidism, euthyroid as of today's TSH past tobacco abuse functional disability (patient brother finding it more difficult to care for the patient at home as per patient niece). PT OT eval DVT prophylaxis. Heparin subcu Full code as per patient's niece/POA (Miss Selam Cadet), she can be contacted at [phone]. [place] updated over the phone. Discussed with her patient's poor prognosis, she states that she already discussed this with family and they are aware that if pt's medical condition does not improve that he may need hospice. I discussed with her CODE STATUS however she states this has been unclear. Patient himself most recently wanted to be full code (in the past was DNR ) and patient also confirmed this with me today - full code. (10) Hypertension: (11) Hypothyroidism: (12) DVT prophylaxis: Admission and Anticipated Discharge Date Admission Date: March 24, 2020 Subjective This morning patient was still quite confused, only able to tell me his name and his brother's name. He cannot tell me the year or current president. He has no complaints however. Denies specifically any chest pain shortness of breath, fevers or chills, abdominal pain, nausea or vomiting. He has been having very poor urine output despite diuretics. Nephrology consulted. Patient has significant edema, pleural effusions, pulmonary consulted as well. Update: Patient seen in the evening, mental status much improved, he is able to have small conversation with me, he is aware of what year it is, current president, his name and his brother's name as well as his niece, Virginia who is his POA. He still is not clear on everything but certainly improved. Virginia updated over the phone. Discussed with her patient's poor prognosis, she states that she already discussed this with family and they are aware that if his medical condition does not improve that he may need hospice. I discussed with her CODE STATUS however she states this has been unclear. Patient himself most recently wanted to be full code (in the past was DNR ) and patient also confirmed this with me today. Review of Systems Review of Systems: All systems reviewed & are unremarkable except as noted in HPI & below and Unobtainable due to cognitive status Patient denies any complaints, however confused Respiratory: no cough and no dyspnea Cardiovascular: + edema; no chest pain and no palpitations Gastrointestinal: no abdominal pain, no nausea and no vomiting Physical Exam Physical Exam: Constitutional: Morbidly obese male, on BiPAP therapy, alert and answers questions, but not appropriately, vitals as above, NAD Head: Normocephalic, Atraumatic Eyes: PERRL, conjunctivae normal, anicteric sclerae ENMT: external ear and nose normal, oropharynx normal Neck: trachea midline, no thyromegaly normal visual inspection Respiratory: normal respiratory effort, decreased aeration throughout, poor inspiratory effort, positive mild rhonchi, mild wheezes. Normal insp/exp effort, no accessory muscle use Cardiovascular: RRR, no murmur, bilateral lower extremity chronic venous stasis changes with nodular lymphedema. Vessels: no JVD or carotid bruit Chest: normal inspection of chest Abdomen: Obese abdomen, large pannus, soft, nontender, unable to appreciate hepatosplenomegaly secondary to obesity Musculoskeletal: no cyanosis or clubbing Skin: warm and dry Neurologic: PERRL, EOMI, no face palsy, speech is slow,moves all extremities Psychiatric: A+Ox2 to person and place, euthymic affect : Block catheter with yellow urine Results & Data Results & Data ([facility]) Vital Signs (Past 12 Hours) Vital Signs Temp Pulse Pulse Pulse Resp BP Pulse Ox 03/26/20 07:06 69 69 20 99 03/26/20 05:23 73 21 96 03/26/20 05:22 70 20 96 03/26/20 04:00 69 24 95 03/26/20 03:59 69 24 95 03/26/20 02:01 69 69 20 98 03/26/20 00:10 63 62 23 96 03/25/20 23:12 37.2 C 58 L 16 118/73 96 03/25/20 22:40 86 20 98 03/25/20 22:37 68 20 98 03/25/20 21:13 72 21 97 03/25/20 21:12 66 21 97 Laboratory Results 03/26/20 03/26/20 03/26/20 Range/Units 07:15 06:37 06:37 ABG pH (7.35-7.45) ABG pCO2 (35-46) mmHg ABG pO2 (80-95) mmHg ABG HCO3 (19-24) mmol/L ABG O2 Saturation (90-95) % ABG Base Excess (-9-1.8) mEq/L Raji Test (Pos) Barometric Pressure mm/Hg Oxygen Given Sodium 139 (136-145) mmol/L Potassium 5.2 H (3.5-5.1) mmol/L Chloride 102 (98-107) mmol/L Carbon Dioxide 31 (21-32) mmol/L Anion Gap 6.0 (3-11) BUN 45 H (7-18) mg/dl Creatinine 2.37 H D (0.6-1.4) mg/dl Est Cr Clr Drug Dosing 51.7 ml/min Est GFR ( Amer) 31.9 Est GFR (Non-Af Amer) 27.5 BUN/Creatinine Ratio 18.8 (10-20) Glucose 188 H (70-99) mg/dl POC Glucose 205 H (70-99) mg/dl Calcium 9.0 (8.5-10.1) mg/dl Phosphorus 4.3 (2.5-4.9) mg/dl Magnesium 2.4 (1.8-2.4) mg/dl Ammonia 26.0 (11-32) umol/L 03/25/20 03/25/20 03/25/20 Range/Units 20:23 18:38 16:43 ABG pH 7.39 (7.35-7.45) ABG pCO2 55 H (35-46) mmHg ABG pO2 93 (80-95) mmHg ABG HCO3 32 H (19-24) mmol/L ABG O2 Saturation 96.0 H (90-95) % ABG Base Excess 6.2 H (-9-1.8) mEq/L Raji Test Pos (Pos) Barometric Pressure 734.7 mm/Hg Oxygen Given 30 Percent Sodium (136-145) mmol/L Potassium (3.5-5.1) mmol/L Chloride (98-107) mmol/L Carbon Dioxide (21-32) mmol/L Anion Gap (3-11) BUN (7-18) mg/dl Creatinine (0.6-1.4) mg/dl Est Cr Clr Drug Dosing ml/min Est GFR ( Amer) Est GFR (Non-Af Amer) BUN/Creatinine Ratio (10-20) Glucose (70-99) mg/dl POC Glucose 136 H 143 H (70-99) mg/dl Calcium (8.5-10.1) mg/dl Phosphorus (2.5-4.9) mg/dl Magnesium (1.8-2.4) mg/dl Ammonia (11-32) umol/L 03/25/20 03/25/20 03/25/20 Range/Units 16:14 16:14 10:35 ABG pH (7.35-7.45) ABG pCO2 (35-46) mmHg ABG pO2 (80-95) mmHg ABG HCO3 (19-24) mmol/L ABG O2 Saturation (90-95) % ABG Base Excess (-9-1.8) mEq/L Raji Test (Pos) Barometric Pressure mm/Hg Oxygen Given Sodium 139 (136-145) mmol/L Potassium 5.0 (3.5-5.1) mmol/L Chloride 103 (98-107) mmol/L Carbon Dioxide 33 H (21-32) mmol/L Anion Gap 3.0 (3-11) BUN 38 H (7-18) mg/dl Creatinine 1.91 H (0.6-1.4) mg/dl Est Cr Clr Drug Dosing 62.0 ml/min Est GFR ( Amer) 41.4 Est GFR (Non-Af Amer) 35.7 BUN/Creatinine Ratio 19.9 (10-20) Glucose 121 H (70-99) mg/dl POC Glucose 115 H (70-99) mg/dl Calcium 8.9 (8.5-10.1) mg/dl Phosphorus 3.5 (2.5-4.9) mg/dl Magnesium 2.4 (1.8-2.4) mg/dl Ammonia 34.0 H (11-32) umol/L 03/25/20 Range/Units 07:34 ABG pH (7.35-7.45) ABG pCO2 (35-46) mmHg ABG pO2 (80-95) mmHg ABG HCO3 (19-24) mmol/L ABG O2 Saturation (90-95) % ABG Base Excess (-9-1.8) mEq/L Raji Test (Pos) Barometric Pressure mm/Hg Oxygen Given Sodium 139 (136-145) mmol/L Potassium 4.8 (3.5-5.1) mmol/L Chloride 104 (98-107) mmol/L Carbon Dioxide 30 (21-32) mmol/L Anion Gap 5.0 (3-11) BUN 36 H (7-18) mg/dl Creatinine 1.85 H (0.6-1.4) mg/dl Est Cr Clr Drug Dosing 64.0 ml/min Est GFR ( Amer) 43.0 Est GFR (Non-Af Amer) 37.1 BUN/Creatinine Ratio 19.6 (10-20) Glucose 106 H (70-99) mg/dl POC Glucose (70-99) mg/dl Calcium 9.3 (8.5-10.1) mg/dl Phosphorus (2.5-4.9) mg/dl Magnesium (1.8-2.4) mg/dl Ammonia (11-32) umol/L Medications Administered Current Inpatient Medications Acetaminophen (Acetaminophen 325 Mg Tab) 325 mg PO Q6H PRN PRN Reason: Mild Pain Stop: 04/23/20 23:49 Albuterol (Albut/Ipratrop 3mg/0.5mg Neb 3 Ml Vial) 3 ml NEB Q2H [facility] Stop: 04/24/20 14:14 Last Admin: 03/26/20 07:04 Dose: 3 ml Documented by: Dextrose (Dextrose 50% 50 Ml Syringe) 25 - 50 ml IV UD PRN; Protocol PRN Reason: Hypoglycemia Protocol Stop: 04/23/20 23:49 Doxycycline Hyclate (Doxycycline Hyclate 100 Mg Cap) 100 mg PO BID [facility] Stop: 04/01/20 08:59 Last Admin: 03/25/20 22:15 Dose: 100 mg Documented by: Fluoxetine HCl (Fluoxetine Hcl 20 Mg Cap) 20 mg PO DAILY [facility] Stop: 04/24/20 08:59 Last Admin: 03/25/20 09:15 Dose: 20 mg Documented by: Fluoxetine HCl (Fluoxetine Hcl 10 Mg Cap) 10 mg PO DAILY [facility] Stop: 04/24/20 08:59 Last Admin: 03/25/20 09:15 Dose: 10 mg Documented by: Glucagon (Glucagon For Inj 1 Mg Vial) 1 mg SQ UD PRN; Protocol PRN Reason: Hypoglycemia Protocol Stop: 04/23/20 23:49 Glucose (Glucose 10 Tabs/Tube) 4 - 8 tabs PO UD PRN; Protocol PRN Reason: Hypoglycemia Protocol Stop: 04/23/20 23:49 Glucose (Glucose 40% Gel 15 Gm Tube) 15 - 30 gm PO UD PRN; Protocol PRN Reason: Hypoglycemia Protocol Stop: 04/23/20 23:49 Heparin Sodium (Porcine) (Heparin Sod 5,000 Unit/0.5 Ml Vial) 5,000 units SQ Q8 [facility] Stop: 04/23/20 23:49 Last Admin: 03/26/20 05:49 Dose: 5,000 units Documented by: Hydralazine HCl (Hydralazine Tab 50 Mg Tab) 50 mg PO QID [facility] Stop: 04/24/20 08:59 Last Admin: 03/25/20 22:14 Dose: 50 mg Documented by: Cefepime HCl 2,000 mg/ Syringe 20 mls @ 5 mls/min IV Q12H [facility]; Protocol Stop: 04/04/20 01:59 Last Admin: 03/26/20 02:21 Dose: 5 mls/min Documented by: Methylprednisolone 40 mg/ (Syringe) 0.64 mls @ 1.5 mls/min IV Q8H [facility] Stop: 04/24/20 15:59 Last Admin: 03/26/20 02:21 Dose: 1.5 mls/min Documented by: Furosemide 40 mg/ Syringe 4 mls @ 4 mls/min IV BID17 [facility] Stop: 04/24/20 16:59 Last Admin: 03/25/20 16:54 Dose: 4 mls/min Documented by: Albumin Human (Albumin 25%) 50 mls @ 50 mls/hr IV ONE ONE Stop: 03/26/20 09:10 Influenza Virus Vaccine (Influenza Vaccine High Dose 65+ 0.5 Ml Syr) 0.5 ml IM .ONCE ONE Stop: 03/27/20 09:01 Insulin Aspart (Insulin Aspart 100 Units/Ml 3 Ml Pen) 0 units SC ACHS [facility] Stop: 04/23/20 23:49 Last Admin: 03/25/20 21:49 Dose: Not Given Documented by: Lactulose (Lactulose Syrup 30 Gm/45 Ml Udp) 30 gm PO TID [facility] Stop: 04/23/20 23:49 Last Admin: 03/25/20 22:16 Dose: 30 gm Documented by: Levothyroxine Sodium (Levothyroxine Sodium 25 Mcg Tablet) 25 mcg PO DAILYBB [facility] Stop: 04/24/20 06:29 Last Admin: 03/26/20 06:26 Dose: 25 mcg Documented by: Levothyroxine Sodium (Levothyroxine Sodium 200 Mcg Tablet) 200 mcg PO DAILYBB [facility] Stop: 04/24/20 06:29 Last Admin: 03/26/20 06:25 Dose: 200 mcg Documented by: Metoprolol Succinate (Metoprolol Succ 25mg Ext Rel Tab) 25 mg PO QAM [facility] Stop: 04/24/20 08:59 Last Admin: 03/25/20 09:14 Dose: 25 mg Documented by: Miconazole Nitrate (Miconazole Nitrate Powder 43 Gm) 1 appln EXT PRN PRN PRN Reason: Affected Skin Folds Stop: 04/24/20 06:29 Miscellaneous (Carbohydrates For Hypoglycemia ) 15 - 30 gm PO UD PRN PRN Reason: Hypoglycemia Protocol Stop: 04/23/20 23:49 Miscellaneous Information (Cefepime Consult Active) 1 ea N/A UD PRN PRN Reason: Consult Stop: 04/24/20 00:46 Nitroglycerin (Nitroglycerin Sl 0.4 Mg/Tab Tab) 0.4 mg SL UD PRN PRN Reason: Chest Pain Stop: 04/23/20 23:49 Pantoprazole Sodium (Pantoprazole 40 Mg Tab) 40 mg PO BID [facility] Stop: 04/24/20 08:59 Last Admin: 03/25/20 22:15 Dose: 40 mg Documented by: Prednisone (Prednisone 20 Mg Tab) 40 mg PO DAILY [facility] Stop: 03/29/20 08:59 Last Admin: 03/25/20 09:15 Dose: 40 mg Documented by:
[2020-03-26] MEDS: hydrALAZINE TAB 50 MG TAB PO SCH ×4 (08:30→20:48)
[2020-03-26] MEDS: METOPROLOL SUCC 25MG EXT REL TAB PO SCH (08:30)
[2020-03-26] MEDS: FLUoxetine HCL 10 MG CAP PO SCH (08:30)
[2020-03-26] MEDS: PANTOprazole 40 MG TAB PO SCH ×2 (08:31→20:48)
[2020-03-26] MEDS: DOXYCYCLINE HYCLATE 100 MG CAP PO SCH (08:31)
[2020-03-26] MEDS: INSULIN ASPART 100 UNITS/ML 3 ML PEN SC SCH ×4 (08:32→21:18)
[2020-03-26] MEDS: FLUoxetine HCL 20 MG CAP PO SCH (08:33)
[2020-03-26] MEDS: FUROSEMIDE 40 MG in SYRINGE 0 ML IV SCH (08:33)
[2020-03-26] MEDS: LACTULOSE SYRUP 30 GM/45 ML UDP PO SCH ×3 (10:09→20:48)
--- NOTE | 2020-03-26 10:23 | Cardiology Progress Note ---
Date of Service March 26, 2020 Assessment & Plan (1) Obesity hypoventilation syndrome: (2) Diabetes mellitus, type 2: (3) Acute metabolic encephalopathy: (4) Acute on chronic respiratory failure with hypoxia and hypercapnia: (5) Acute on chronic diastolic heart failure: (6) Acute worsening of stage 3 chronic kidney disease: (7) Acute confusion: (8) Acute respiratory failure with hypoxia and hypercarbia: (9) COPD (chronic obstructive pulmonary disease): (10) SAFIA (obstructive sleep apnea): The patient appears to be comfortable. His creatinine is starting to rise and his urine output is marginal. Diuretic management is per nephrology. Admission and Anticipated Discharge Date Admission Date: March 24, 2020 Subjective The patient is on BiPAP and resting comfortably. Review of Systems Review of Systems: All systems reviewed & are unremarkable except as noted in Subjective Physical Exam Physical Exam: General: Massively obese Head: normocephalic, no masses, lesions, tenderness or abnormalities Eyes: conjunctiva are pink and non-injected, sclera clear Neck: supple, no adenopathy, no bruits, normal jugular venous pulse, no hepatojugular reflux Chest: normal shape and normal respiratory effort Lungs: clear to auscultation and percussion Cardiac Exam: - regular rate & rhythm, no murmurs gallops or rubs - normal S1, normal S2 Pulses: 2(+) throughout Abdomen: abdomen soft, non-tender, no abnormal masses and no hepatosplenomegaly Musculoskeletal: no gait disturbance, no joint inflammation, no deforming arthritis Extremities: no edema and no cyanosis Neuro: grossly normal exam Results & Data ([facility]) Vital Signs (Past 12 Hours) Vital Signs Temp Pulse Pulse Pulse Resp BP Pulse Ox 03/26/20 08:36 37.0 C 68 18 114/72 96 03/26/20 07:06 69 69 20 99 03/26/20 05:23 73 21 96 03/26/20 05:22 70 20 96 03/26/20 04:00 69 24 95 03/26/20 03:59 69 24 95 03/26/20 02:01 69 69 20 98 03/26/20 00:10 63 62 23 96 03/25/20 23:12 37.2 C 58 L 16 118/73 96 03/25/20 22:40 86 20 98 03/25/20 22:37 68 20 98 Laboratory Results Laboratory Results - last 24 hr 03/25/20 03/25/20 03/25/20 10:35 16:14 16:14 ABG pH ABG pCO2 ABG pO2 ABG HCO3 ABG O2 Saturation ABG Base Excess Raji Test Barometric Pressure Oxygen Given Sodium 139 Potassium 5.0 Chloride 103 Carbon Dioxide 33 H Anion Gap 3.0 BUN 38 H Creatinine 1.91 H Est Cr Clr Drug Dosing 62.0 Est GFR ( Amer) 41.4 Est GFR (Non-Af Amer) 35.7 BUN/Creatinine Ratio 19.9 Glucose 121 H POC Glucose 115 H Calcium 8.9 Phosphorus 3.5 Magnesium 2.4 Ammonia 34.0 H 03/25/20 03/25/20 03/25/20 16:43 18:38 20:23 ABG pH 7.39 ABG pCO2 55 H ABG pO2 93 ABG HCO3 32 H ABG O2 Saturation 96.0 H ABG Base Excess 6.2 H Raji Test Pos Barometric Pressure 734.7 Oxygen Given 30 Percent Sodium Potassium Chloride Carbon Dioxide Anion Gap BUN Creatinine Est Cr Clr Drug Dosing Est GFR ( Amer) Est GFR (Non-Af Amer) BUN/Creatinine Ratio Glucose POC Glucose 143 H 136 H Calcium Phosphorus Magnesium Ammonia 03/26/20 03/26/20 03/26/20 06:37 06:37 07:15 ABG pH ABG pCO2 ABG pO2 ABG HCO3 ABG O2 Saturation ABG Base Excess Raji Test Barometric Pressure Oxygen Given Sodium 139 Potassium 5.2 H Chloride 102 Carbon Dioxide 31 Anion Gap 6.0 BUN 45 H Creatinine 2.37 H D Est Cr Clr Drug Dosing 51.7 Est GFR ( Amer) 31.9 Est GFR (Non-Af Amer) 27.5 BUN/Creatinine Ratio 18.8 Glucose 188 H POC Glucose 205 H Calcium 9.0 Phosphorus 4.3 Magnesium 2.4 Ammonia 26.0 Medications Administered Current Inpatient Medications Acetaminophen (Acetaminophen 325 Mg Tab) 325 mg PO Q6H PRN PRN Reason: Mild Pain Stop: 04/23/20 23:49 Albuterol (Albut/Ipratrop 3mg/0.5mg Neb 3 Ml Vial) 3 ml NEB Q2H CAROL ANN Stop: 04/24/20 14:14 Last Admin: 03/26/20 07:04 Dose: 3 ml Documented by: Dextrose (Dextrose 50% 50 Ml Syringe) 25 - 50 ml IV UD PRN; Protocol PRN Reason: Hypoglycemia Protocol Stop: 04/23/20 23:49 Doxycycline Hyclate (Doxycycline Hyclate 100 Mg Cap) 100 mg PO BID CAROL ANN Stop: 04/01/20 08:59 Last Admin: 03/26/20 08:31 Dose: 100 mg Documented by: Fluoxetine HCl (Fluoxetine Hcl 20 Mg Cap) 20 mg PO DAILY CAROL ANN Stop: 04/24/20 08:59 Last Admin: 03/26/20 08:33 Dose: 20 mg Documented by: Fluoxetine HCl (Fluoxetine Hcl 10 Mg Cap) 10 mg PO DAILY CAROL ANN Stop: 04/24/20 08:59 Last Admin: 03/26/20 08:30 Dose: 10 mg Documented by: Glucagon (Glucagon For Inj 1 Mg Vial) 1 mg SQ UD PRN; Protocol PRN Reason: Hypoglycemia Protocol Stop: 04/23/20 23:49 Glucose (Glucose 10 Tabs/Tube) 4 - 8 tabs PO UD PRN; Protocol PRN Reason: Hypoglycemia Protocol Stop: 04/23/20 23:49 Glucose (Glucose 40% Gel 15 Gm Tube) 15 - 30 gm PO UD PRN; Protocol PRN Reason: Hypoglycemia Protocol Stop: 04/23/20 23:49 Heparin Sodium (Porcine) (Heparin Sod 5,000 Unit/0.5 Ml Vial) 5,000 units SQ Q8 CAROL ANN Stop: 04/23/20 23:49 Last Admin: 03/26/20 05:49 Dose: 5,000 units Documented by: Hydralazine HCl (Hydralazine Tab 50 Mg Tab) 50 mg PO QID CAROL ANN Stop: 04/24/20 08:59 Last Admin: 03/26/20 08:30 Dose: 50 mg Documented by: Cefepime HCl 2,000 mg/ Syringe 20 mls @ 5 mls/min IV Q12H [facility]; Protocol Stop: 04/04/20 01:59 Last Admin: 03/26/20 02:21 Dose: 5 mls/min Documented by: Methylprednisolone 40 mg/ (Syringe) 0.64 mls @ 1.5 mls/min IV Q8H [facility] Stop: 04/24/20 15:59 Last Admin: 03/26/20 08:31 Dose: 1.5 mls/min Documented by: Furosemide 100 mg/ Syringe 10 mls @ 4 mls/min IV Q8 CAROL ANN Stop: 04/25/20 13:59 Influenza Virus Vaccine (Influenza Vaccine High Dose 65+ 0.5 Ml Syr) 0.5 ml IM .ONCE ONE Stop: 03/27/20 09:01 Insulin Aspart (Insulin Aspart 100 Units/Ml 3 Ml Pen) 0 units SC ACHS [facility] Stop: 04/23/20 23:49 Last Admin: 03/26/20 08:32 Dose: 1 units Documented by: Lactulose (Lactulose Syrup 30 Gm/45 Ml Udp) 30 gm PO TID [facility] Stop: 04/23/20 23:49 Last Admin: 03/26/20 10:09 Dose: Not Given Documented by: Levothyroxine Sodium (Levothyroxine Sodium 25 Mcg Tablet) [facility] Stop: 04/24/20 06:29 Last Admin: 03/26/20 06:26 Dose: 25 mcg Documented by: Levothyroxine Sodium (Levothyroxine Sodium 200 Mcg Tablet) 200 mcg PO DAILYBB [facility] Stop: 04/24/20 06:29 Last Admin: 03/26/20 06:25 Dose: 200 mcg Documented by: Metolazone (Metolazone 5 Mg Tablet) 5 mg PO QAM [facility] Stop: 04/25/20 10:29 Metoprolol Succinate (Metoprolol Succ 25mg Ext Rel Tab) 25 mg PO QAM [facility] Stop: 04/24/20 08:59 Last Admin: 03/26/20 08:30 Dose: 25 mg Documented by: Miconazole Nitrate (Miconazole Nitrate Powder 43 Gm) 1 appln EXT PRN PRN PRN Reason: Affected Skin Folds Stop: 04/24/20 06:29 Miscellaneous (Carbohydrates For Hypoglycemia ) 15 - 30 gm PO UD PRN PRN Reason: Hypoglycemia Protocol Stop: 04/23/20 23:49 Miscellaneous Information (Cefepime Consult Active) 1 ea N/A UD PRN PRN Reason: Consult Stop: 04/24/20 00:46 Nitroglycerin (Nitroglycerin Sl 0.4 Mg/Tab Tab) 0.4 mg SL UD PRN PRN Reason: Chest Pain Stop: 04/23/20 23:49 Pantoprazole Sodium (Pantoprazole 40 Mg Tab) 40 mg PO BID [facility] Stop: 04/24/20 08:59 Last Admin: 03/26/20 08:31 Dose: 40 mg Documented by: Prednisone (Prednisone 20 Mg Tab) 40 mg PO DAILY CAROL ANN Stop: 03/29/20 08:59 Last Admin: 03/25/20 09:15 Dose: 40 mg Documented by:
[2020-03-26] MEDS: metOLazone 5 MG TABLET PO SCH (11:17)
--- NOTE | 2020-03-26 11:22 | Consultation Report ---
DATE OF CONSULTATION: 03/26/2020 REASON FOR CONSULT: Acute renal failure. HISTORY OF PRESENT ILLNESS: The patient is a 64-year-old male with super morbid obesity with a BMI of 60, who presented to the hospital 2 days ago because of altered mental status. The patient has chronic respiratory failure with hypoxia and hypercarbia, obesity hypoventilation syndrome requiring BiPAP, chronic diastolic failure, COPD, type 2 diabetes as well as chronic kidney disease stage III. He is essentially bedridden. At this time, the altered mental status has been attributed to hypercarbia and his pCO2 was high at the time of admission. Since admission, he has been on BiPAP almost entirely and with that some improvement in mental status. The patient has not urinated much despite getting pretty hefty dose of IV Lasix yesterday. The entire urine output yesterday was only 400 mL. He does have a Block catheter. It is very hard to assess his fluid status given super morbid obesity. Cardiology has also seen the patient yesterday. Renal function has steadily got worse. At the time of admission, creatinine was 1.77 and this morning it is 2.37, potassium is 5.2. ALLERGIES: Reviewed. HOME MEDICATIONS: List was reviewed in detail and is as per the reconciliation list. Patient takes Lasix 80 mg twice daily at home. PAST MEDICAL AND SURGICAL HISTORY: As detailed in the HPI. PAST SURGICAL HISTORY: History of angioplasty, endoscopic sinus surgery, tooth extraction, status post correction of deviated nasal septum. FAMILY HISTORY: Negative for renal disease or dialysis. SOCIAL HISTORY: Smoked in the past. The patient lives with his brother. He is unemployed. He is essentially bedbound. He is on a BiPAP. REVIEW OF SYSTEMS: Unable to obtain given difficulty speaking with the BiPAP on and patient's shortness of breath. PHYSICAL EXAMINATION: GENERAL: Elderly white male who is super morbidly obese. He is on a BiPAP. He is awake and alert and answers simple questions, but then difficult to continue with the conversation. HEENT: Mucous membrane is moist. HEART: Blood pressure 114/72, temperature 37 degrees Celsius, 96% on BiPAP. CHEST: Bilateral decreased breath sounds, poor inspiratory effort. Distant heart sounds. Could not appreciate any rub, murmur or gallop. ABDOMEN: Obese, nontender. EXTREMITIES: Shows edema 2+ with chronic lymphedema. LABORATORY TESTS: This morning labs show a rising creatinine is up to 2.37, BUN 45. Sodium 139, potassium 5.2. Lactic acid normal. Albumin was 2.7 at the time of admission. Creatinine was 1.7 at the time of admission. Hemoglobin this morning 9.4, platelet count 190. WBC count 5000. Chest x-ray shows bilateral airspace opacities which may reflect pulmonary edema versus infectious process. Small to moderate right and left small pleural effusion. Liver ultrasound shows liver is enlarged and cirrhotic in morphology, right pleural effusion. ASSESSMENT AND PLAN: A 64-year-old male with extensive medical problem list including obesity hypoventilation syndrome with chronic respiratory failure with hypoxia and hypercarbia as well as very extensive list of problems, admitted with increasing confusion and worsening respiratory failure. I have been consulted for acute renal failure with oliguria. Acute renal failure with oliguria. It is very hard to assess his fluid status given super morbid obesity, but I believe he is fluid overloaded. He has a pleural effusion as well as pulmonary congestion. To better clarify the fluid status, I would recommend to do CT chest, abdomen and pelvis to assess for anasarca as well as pleural effusion and ascites. Most likely etiology of acute renal failure is some degree of acute tubular necrosis in the setting of hypoxia, hypercarbia and respiratory failure. Even with fairly high dose of IV Lasix, he really did not have much urine output. Given this, I would increase the Lasix to 100 mg IV q. 8 hour and metolazone 5 mg starting now. Further adjustment of diuretics dose will be made after the CT scan finding. Continue daily labs. Overall, prognosis of the patient is quite poor. Thank you very much for the consult.
--- NOTE | 2020-03-26 13:25 | CT Scan Report ---
CT chest wo con CLINICAL HISTORY: 64 years-old Male with eval for pl. effusions, body edema. Follow-up study in a pa tient with right pleural effusion. TECHNIQUE: Multiaxial CT images of the chest were performed without contrast. A dose lowering techni que was utilized adhering to the principles of ALARA. COMPARISON: CT abdomen and pelvis of same day, chest radiograph 03/25/2020, CTA chest 06/06/2016 FINDINGS: No thyroid nodule. Prominent nonenlarged mediastinal lymph nodes include a 10 mm AP window lymph node and 10 mm precarinal lymph node. The precarinal lymph node is unchanged from comparison. T he AP window lymph nodes have increased in size. Moderate cardiomegaly. Coronary artery calcification s. No thoracic aortic aneurysm. There is dilation of the main pulmonary artery, 3.2 cm. Patient body habitus limits the study. Trace left and moderate right pleural effusions. There is no pneumothorax. Dependent consolidation of the right lung. Minimal tracheobronchial secretions. Marginal nodularity of the liver suggests cirrh osis. There is an enlarged 1.3 cm gastrohepatic lymph node on image 294 series 6. This appears stable from the 2016 exam. Nonspecific subcutaneous edema within the superior presternal tissues. Degenerat rosangela changes of the shoulders and spine. No acute fracture. Thoracic dextroscoliosis. IMPRESSION: 1. Cardiomegaly without overt pulmonary edema. 2. Trace left and moderate right pleural effusions. Dependent right basilar consolidation is suggesti ve of compressive atelectasis. 3. Nonspecific mediastinal and upper abdominal adenopathy, slightly progressed from the 2016 exam. 4. Indeterminate subcutaneous edema of the superior presternal tissues 5. Please refer to the CT abdomen and pelvis study of same day for additional findings. ACT 112: Negative or not required by law. Electronically signed by: Brenton Aponte M.D. 03/26/2020 1:24 PM
--- NOTE | 2020-03-26 13:30 | CT Scan Report ---
CT OF THE ABDOMEN AND PELVIS WITHOUT CONTRAST CLINICAL HISTORY: renal image, eval for hydronephrosis. COMPARISON STUDY: Right upper quadrant ultrasound March 25, 2020. TECHNIQUE: Axial images of the abdomen and pelvis were obtained without IV contrast. Images were revi ewed in the axial, sagittal, and coronal planes. Automated exposure control was utilized for the navdeep dy. A dose lowering technique was utilized adhering to the principles of ALARA. FINDINGS: Please note that the chest CT will be reported separately. A right pleural effusion is bett er depicted on that exam. No pneumatosis, free air or portal venous gas is present. This exam is sign ificantly compromised by artifact related to body wall contacting the gantry. There is a 6 mm left re nal pelvis calculus without hydronephrosis. Additional bilateral renal calculi are noted. No ureteral calculi are present. A Block balloon is present within the bladder which is collapsed. The liver is cirrhotic. Sensitivity for detection of hepatic lesions is diminished but none are identified. There are suspected gallstones within the gallbladder. There may be mild gallbladder wall thickening, a non specific finding. The gallbladder is not distended. Several mildly enlarged paola hepatis lymph nodes measure up to 1.5 cm in short axis diameter. Mesenteric infiltration is noted. Body wall edema is no melvin. There is no evidence for a bowel obstruction. Colonic diverticulosis is noted without evidence f or acute diverticulitis. No pelvic lymphadenopathy. Avascular necrosis of the bilateral femoral heads is noted. No fluid collection is identified to suggest an abscess. Unenhanced images of the spleen a nd adrenal glands are unremarkable. There is pancreatic glandular atrophy. IMPRESSION: 1. Exam significantly compromised by artifact, as described above. 2. 6 mm left renal pelvis calculus. No hydronephrosis. Bilateral nephrolithiasis. No ureteral calculi . 3. Cirrhosis. Trace ascites. Mesenteric infiltration, a nonspecific finding which is probably related to portal hypertension or volume overload. Body wall edema, most evident within the lower abdomen an d pelvis. No abscess. 4. Mildly enlarged upper abdominal lymph nodes which are nonspecific but may be related to cirrhosis. 5. Cholelithiasis. 6. Avascular necrosis of the bilateral femoral heads. ACT 112: Negative or not required by law. Electronically signed by: Remington Bazan M.D. 03/26/2020 1:28 PM
[2020-03-26] MEDS: DAPTOmycin 725 MG in SYRINGE 0 ML IV SCH (14:25)
[2020-03-26] MEDS: cefTRIAXone SODIUM 2,000 MG in DEXTROSE 5% 50 ML IV SCH (14:25)
[2020-03-26] MEDS: FUROSEMIDE 100 MG in SYRINGE 0 ML IV SCH ×2 (15:01→22:38)
--- NOTE | 2020-03-26 15:20 | Pulmonary Consultation ---
Date of Consultation March 26, 2020 Assessment & Plan (1) Obesity hypoventilation syndrome: (2) Abnormal CT scan of lung: (3) Pleural effusion: Impression: 64-year-old male with morbid obesity admitted with fluid overload and small right-sided pleural effusion. He initially had some degree of hypercarbic respiratory failure however this appears corrected. There was initial concern about altered mental status which was likely multifactorial and appears to have significantly improved. Recommendation: 1. Pleural effusion: The right-sided pleural effusion likely represents fluid overload. This is supported by the anasarca and edema identified on his CT scan. Thoracentesis would be very difficult in this patient given his very large body habitus. I measured approximately 12 cm of soft tissue that we would have to pass before entering the pleural space. Based on this I would recommend continue diuretics. I agree with nephrology that the patient is not a good candidate for dialysis and should he progress to that, would favor palliative care. 2. Obesity hypoventilation syndrome: The patient's PCO2 appears to have corrected to the point that his pH is normal. Would continue BiPAP whenever he is sleeping and nightly. Case management should ensure the patient has his BiPAP machine up and running before going home. 3. The patient's morbid obesity is significantly compromising his medical problems. Unfortunately I am not sure that any of his problems are reversible without significant weight loss which she has been unwilling to entertain. He is not a candidate for bariatric surgery. As his mental status is improved and his CO2 is stable, unfortunately I do not think I have much additional to offer from a pulmonary perspective. If the effusion should increase in size, we could consider tapping it however logistically this would be very difficult and potentially higher risk. Feel free to contact us if we can be of additional assistance. History of Present Illness Attending Physician: Juan Rodriguez MD History of Present Illness Asked by hospitalist to evaluate this patient known to the pulmonary service with severe sleep disordered breathing/obesity hypoventilation syndrome and fluid overload. History is obtained from review the electronic medical record as well as interview the patient. Patient is a 64-year-old male with a history of morbid obesity. He is been followed by Dr. navarro in the outpatient setting for sleep disordered breathing. He has a home BiPAP. He reports that he is been using it regularly. Patient was seen in the emergency room 03/24/2020 with complaints of confusion. According to the ER notes and H&P, the patient had not been using his BiPAP for 2 or 3 nights and was trying to get replacement parts. He was noted to be hypoxemic in the emergency room. He is admitted to the hospitalist service and has been using nightly BiPAP. He was also noted to have an elevated ammonia level which has improved as well. A chest x-ray revealed pulmonary venous congestion and pleural effusion. He has had worsening renal function. Cardiology and nephrology consultations were obtained. Cardiology did not recommend any additional work-up and nephrology recommended a CT of the chest and abdomen to better ascertain the patient's volume status. This did demonstrate significant anasarca. They agreed that he is not a great candidate for renal replacement and have increased his Lasix and placed him on metolazone. When I went to evaluate the patient today, he is awake alert and able to answer questions. He does appear mildly confused as he states he has been using his BiPAP nightly at home although the H&P and ER notes would contradict this to some degree. Allergies Allergy/AdvReac Type Severity Reaction Status Date / Time pollen extracts Allergy Mild sneezing/watery Verified 05/26/19 00:14 eyes Home Medications Home Medications Medication Instructions Recorded Confirmed Type atorvastatin 10 mg PO HS 10/24/18 03/24/20 History levothyroxine 25 mcg PO QAM 10/24/18 03/24/20 History levothyroxine 200 mcg PO QAM 10/24/18 03/24/20 History metoprolol succinate 25 mg PO QAM 10/24/18 03/24/20 History pantoprazole 40 mg tablet,delayed 40 mg PO BID 02/11/19 03/24/20 History release gabapentin 100 mg PO TID 04/14/19 03/24/20 History Linzess 145 mcg PO DAILYBB 11/29/19 03/24/20 History albuterol sulfate 2 puff INHALATION QID PRN 11/29/19 03/24/20 History fluoxetine 10 mg PO DAILY 11/29/19 03/24/20 History fluoxetine 20 mg PO DAILY 11/29/19 03/24/20 History furosemide [Lasix] 80 mg PO BID 11/29/19 03/24/20 History hydralazine 50 mg PO QID 11/29/19 03/24/20 History insulin aspart U-100 [Novolog 1 sliding scale dose SUBCUT TID 11/29/19 03/24/20 History U-100 Insulin aspart] Lantus Solostar U-100 Insulin 40 unit SUBCUT HS #0 ml 12/05/19 03/24/20 Rx umeclidinium-vilanterol [Anoro 1 ea INHALATION DAILY #14 ea 12/05/19 03/24/20 Rx Ellipta] Patient History Medical History Anemia Chronic diastolic heart failure COPD (chronic obstructive pulmonary disease) inhalers daily/prn and oxygen 2L n/c Diabetes mellitus, type 2 Elevated troponin I level Graves disease History of gastric ulcer Hyperlipidemia Hypertension Hypothyroidism Hypoxia Left bundle branch block chronic Morbid obesity with BMI of 50.0-59.9, adult Obesity hypoventilation syndrome On home oxygen therapy 2L N/C at all times SAFIA (obstructive sleep apnea) cpap--2L oxygen Surgical History History of angioplasty 2003 @ [facility] [place]--no stents History of colonoscopy History of endoscopic sinus surgery History of esophagogastroduodenoscopy (EGD) History of tooth extraction History of wisdom tooth extraction S/P correction of deviated nasal septum Family History Mother Diabetes Hypertension Brother , dies at 44 yo from [place] Heart disease Other No family history of adverse response to anesthesia Social History Smoking Status: Unknown if ever smoked Tobacco Type: Cigarettes Years Smoked: 60; Cigarettes Per Day: 4; Second Hand Exposure: No; Preferred Language: Georgian Communication Ability: Impaired Communication Ability Comment: mental status Infrastructure Manager Required: No Beliefs That Will Affect Care: None marital status: Single Current Living Situation: Other Current Living Situation Comment: Patient states "with my mommy and daddy." current occupational status: unemployed Feels Safe at Home: Yes Assistive Devices: BiPap Review of Systems Review of Systems: Please refer to admission H&P. I have no additions or deletions Physical Exam Physical Exam: Patient is morbidly obese. This significantly limits the sensitivity of physical exam. Constitutional: WD/WN, vitals as above + morbidly obese; no acute distress Neck: trachea midline, no thyromegaly Respiratory: normal respiratory effort, lungs clear to auscultation Cardiovascular: RRR, no murmur, no edema Gastrointestinal (Abdomen): normal bowel sounds, soft, nontender, no hepatosplenomegaly Musculoskeletal: Extremities: extremities normal to inspection Skin: no rashes, warm and dry Neurologic: Nonfocal exam Lymphatic: no cervical lymphadenopathy Results & Data Results & Data ([facility]) Vital Signs (Past 12 Hours) Vital Signs Temp Pulse Pulse Pulse Resp BP BP 03/26/20 14:12 73 20 03/26/20 12:23 71 20 03/26/20 11:38 36.7 C 75 18 105/66 03/26/20 10:29 70 70 20 03/26/20 08:36 37.0 C 68 18 114/72 03/26/20 07:06 69 69 20 03/26/20 05:23 73 21 03/26/20 05:22 70 20 03/26/20 04:00 69 24 03/26/20 03:59 69 24 Pulse Ox 03/26/20 14:12 97 03/26/20 12:23 98 03/26/20 11:38 97 03/26/20 10:29 96 03/26/20 08:36 96 03/26/20 07:06 99 03/26/20 05:23 96 03/26/20 05:22 96 03/26/20 04:00 95 03/26/20 03:59 95 Laboratory Results 03/25/20 07:34 03/26/20 06:37 03/24/20 03/24/20 03/25/20 18:58 20:54 18:38 ABG pH 7.34 L 7.39 ABG pCO2 64 H 55 H ABG pO2 145 H 93 ABG HCO3 34 H 32 H ABG O2 Saturation 98.4 H 96.0 H ABG Base Excess 6.7 H 6.2 H VBG pH 7.35 L VBG pCO2 62 H VBG pO2 40 VBG HCO3 34 VBG O2 Saturation 68.2 VBG Base Excess 6.5 Diagnostic Findings Imaging studies were independently reviewed. CT of the chest from 03/26/2020 showed cardiomegaly without overt pulmonary edema. Small to moderate sized right pleural effusion was noted with some small adenopathy. Subcutaneous edema was noted. PG Care Time/CCT Total # of Minutes Spent Total Time Spent with Patient: Total time spent is greater than 50% in coordination of care (as documented) at patient's floor/unit and/or counseling patient: Coding Level of Care Code 01133 Initial Inpt Care Lvl 3 Diagnoses Obesity hypoventilation syndrome E66.[address] scan of lung R91.8 Pleural effusion J90 Time Spent (min) 45
[2020-03-26] MEDS: DOXYCYCLINE HYCLATE 100 MG in DEXTROSE 5% 100 ML IV SCH (20:52)
[2020-03-27] MEDS: methylPREDNISolone 40 MG in SYRINGE 0 ML IV SCH ×4 (00:06→23:35)
[2020-03-27] MEDS: HEPARIN SOD 5,000 UNIT/0.5 ML VIAL SQ SCH ×3 (05:30→21:38)
[2020-03-27] MEDS: LEVOTHYROXINE SODIUM 25 MCG TABLET PO SCH (05:30)
[2020-03-27] MEDS: LEVOTHYROXINE SODIUM 200 MCG TABLET PO SCH (05:30)
[2020-03-27] MEDS: FUROSEMIDE 100 MG in SYRINGE 0 ML IV SCH ×3 (05:31→21:39)
[2020-03-27 06:46] LABS: BUN Creatinine Ratio 23.5 (10-20); Calcium 8.9 mg/dl (8.5-10.1); Creatinine Clr Calc Pharmacy 50.1 ml/min; Est GFR (African American) 30.8; Est GFR (Non-African American) 26.6; Magnesium 2.6 mg/dl (1.8-2.4); Potassium 4.8 mmol/L (3.5-5.1)
[2020-03-27 06:47] LABS: Phosphorus 3.8 mg/dl (2.5-4.9)
[2020-03-27] MEDS: ALBUT/IPRATROP 3MG/0.5MG NEB 3 ML VIAL NEB SCH ×4 (07:26→19:31)
--- NOTE | 2020-03-27 07:45 | Hospitalist Progress Note ---
Date of Service March 27, 2020 Assessment & Plan (1) Acute on chronic respiratory failure with hypoxia and hypercapnia: (2) Acute on chronic diastolic heart failure: (3) Acute metabolic encephalopathy: (4) UTI (urinary tract infection): (5) Acute worsening of stage 3 chronic kidney disease: (6) Diabetes mellitus, type 2: (7) Anemia: (8) SAFIA (obstructive sleep apnea): (9) Obesity hypoventilation syndrome: Encephalopathy Multifactorial : Acute on chronic hypoxemic, hypercapnic respiratory failure secondary to decompensated heart failure/COPD exacerbation, hx OHS ELVI possible Cardiorenal syndrome Complicated UTI, no sepsis Hyperammonemia, possible acute hepatic encephalopathy, possible chronic liver disease given fatty liver findings on abdominal ultrasound from 2000 Hypoglycemia, hx DM2 insulin requiring, reasonable control as of recent outpatient hemoglobin A1c of 7.22 November 2019 Gram positive bacteremia -possible contaminant, however for now will cover with IV antibiotics and will closely monitor, repeat blood cultures Continue BiPAP -mental status much improved as of March 26 evening ELVI with oliguria-worsening renal function, despite IV diuretics Lasix-albumin given kidney dysfunction, Nephrology consulted, patient likely has ATN from hypoxia, hypercapnia in the setting of respiratory failure CT chest/abd/pelvis - obtained to better evaluate fluid status Per nephrology - increased dose IV Lasix to 100 mg IV every 8 hours and metolazone 5 mg daily Overall prognosis of the patient is quite poor Strict I/Os, daily weights, CHF education, fluid restriction Cardiology consult RE CHF - continue diuretic therapy per nephrology, continue BiPAP, no additional cardiac testing indicated at this time Monitor renal function with diuretic Rx Doxycycline, nebs, prednisone course for COPD exacerbation Follow urine cultures, IV Cefepime for complicated UTI Daptomycin added for gram posit. bacteremia - possibly contaminant, will d/c dapto if other blood cltx negat. Lactulose for possible hepatic encephalopathy, liver ultrasound rule out chronic liver disease, may need GI consultation Appropriate to hold basal insulin for now given hypoglycemic episodes, ISS BG goal [id number], update hemoglobin A1c (10) Hypertension: BP on lower side initially now seems at goal chronic LBBB hyperlipidemia on statin Rx chronic anemia, hemoglobin at baseline past tobacco abuse Functional disability (patient's brother finding it more difficult to care for the patient at home as per patient niece). PT OT eval (11) Hypothyroidism: euthyroid as of current TSH (12) DVT prophylaxis: Heparin subcu Full code as per patient's niece/POA (Ms. Selam Cadet), she can be contacted at . [place] updated over the phone. Discussed with her patient's poor prognosis, she states that she already discussed this with family and they are aware that if pt's medical condition does not improve that he may need hospice. I discussed with her CODE STATUS however she states this has been unclear. Patient himself most recently wanted to be full code (in the past was DNR ) and patient also confirmed this with me today - full code. Admission and Anticipated Discharge Date Admission Date: March 24, 2020 Subjective Patient's mental status much improved, patient was able to communicate better already yesterday evening. He however appears very somnolent, currently on BiPAP machine. He has no complaints, but he does say that he feels hungry. Denies specifically any chest pain shortness of breath, fevers or chills, abdominal pain, nausea or vomiting. He has been having very poor urine output despite diuretics. Nephrology consulted. Patient has significant edema, pleural effusions, pulmonary consulted as well. [place] updated over the phone last evening (03/26). Discussed with her patient's poor prognosis, she states that she already discussed this with family and they are aware that if his medical condition does not improve that he may need hospice. I discussed with her CODE STATUS however she states this has been unclear. Patient himself most recently wanted to be full code (in the past was DNR ) and patient also confirmed this with me. Review of Systems Review of Systems: All systems reviewed & are unremarkable except as noted in HPI & below Constitutional: no fever and no chills Respiratory: no cough and no dyspnea Cardiovascular: + edema; no chest pain and no palpitations Gastrointestinal: no abdominal pain, no nausea and no vomiting Physical Exam Physical Exam: Constitutional: Morbidly obese male, on BiPAP therapy, alert and answers most questions appropriately (mental status much improved), vitals as above, NAD Head: Normocephalic, Atraumatic Eyes: PERRL, EOMI, conjunctivae normal, anicteric sclerae ENMT: external ear and nose normal, oropharynx normal Neck: trachea midline, no thyromegaly normal visual inspection Respiratory: normal respiratory effort, decreased aeration throughout, poor inspiratory effort, positive mild rhonchi, mild wheezes. Normal insp/exp effort, no accessory muscle use Cardiovascular: RRR, no murmur, bilateral lower extremity chronic venous stasis changes with nodular lymphedema. Vessels: no JVD or carotid bruit Chest: normal inspection of chest Abdomen: Obese abdomen, large pannus, soft, nontender, unable to appreciate hepatosplenomegaly secondary to obesity Musculoskeletal: no cyanosis or clubbing Skin: warm and dry Neurologic: PERRL, EOMI, no face palsy, speech is slow,moves all extremities Psychiatric: A+Ox3, euthymic affect : Block catheter with dark yellow urine Results & Data Results & Data ([facility]) Vital Signs (Past 12 Hours) Vital Signs Temp Pulse Pulse Pulse Resp BP Pulse Ox 03/27/20 07:28 62 22 95 03/27/20 07:27 62 22 95 03/27/20 06:55 37.0 C 66 17 146/72 H 96 03/27/20 03:25 36.7 C 63 19 133/67 97 03/27/20 03:17 65 22 96 03/26/20 23:54 64 03/26/20 23:22 36.9 C 69 18 137/66 97 03/26/20 22:30 72 20 97 03/26/20 21:05 64 24 99 Laboratory Results 03/27/20 03/26/20 03/26/20 Range/Units 05:20 21:06 16:50 Sodium 136 (136-145) mmol/L Potassium 4.8 (3.5-5.1) mmol/L Chloride 100 (98-107) mmol/L Carbon Dioxide 31 (21-32) mmol/L Anion Gap 5.0 (3-11) BUN 57 H (7-18) mg/dl Creatinine 2.44 H (0.6-1.4) mg/dl Est Cr Clr Drug Dosing 50.1 ml/min Est GFR ( Amer) 30.8 Est GFR (Non-Af Amer) 26.6 BUN/Creatinine Ratio 23.5 H (10-20) Glucose 251 H (70-99) mg/dl POC Glucose 280 H 292 H (70-99) mg/dl Calcium 8.9 (8.5-10.1) mg/dl Phosphorus 3.8 (2.5-4.9) mg/dl Magnesium 2.6 H (1.8-2.4) mg/dl 03/26/20 Range/Units 11:36 Sodium (136-145) mmol/L Potassium (3.5-5.1) mmol/L Chloride (98-107) mmol/L Carbon Dioxide (21-32) mmol/L Anion Gap (3-11) BUN (7-18) mg/dl Creatinine (0.6-1.4) mg/dl Est Cr Clr Drug Dosing ml/min Est GFR ( Amer) Est GFR (Non-Af Amer) BUN/Creatinine Ratio (-20) Glucose (70-99) mg/dl POC Glucose 250 H (70-99) mg/dl Calcium (8.5-10.1) mg/dl Phosphorus (2.5-4.9) mg/dl Magnesium (1.8-2.4) mg/dl Medications Administered Current Inpatient Medications Acetaminophen (Acetaminophen 325 Mg Tab) 325 mg PO Q6H PRN PRN Reason: Mild Pain Stop: 04/23/20 23:49 Albuterol (Albut/Ipratrop 3mg/0.5mg Neb 3 Ml Vial) 3 ml NEB QIDR CAROL ANN Stop: 04/26/20 06:59 Last Admin: 03/27/20 07:26 Dose: 3 ml Documented by: Dextrose (Dextrose 50% 50 Ml Syringe) 25 - 50 ml IV UD PRN; Protocol PRN Reason: Hypoglycemia Protocol Stop: 04/23/20 23:49 Fluoxetine HCl (Fluoxetine Hcl 20 Mg Cap) 20 mg PO DAILY [facility] Stop: 04/24/20 08:59 Last Admin: 03/26/20 08:33 Dose: 20 mg Documented by: Fluoxetine HCl (Fluoxetine Hcl 10 Mg Cap) 10 mg PO DAILY [facility] Stop: 04/24/20 08:59 Last Admin: 03/26/20 08:30 Dose: 10 mg Documented by: Glucagon (Glucagon For Inj 1 Mg Vial) 1 mg SQ UD PRN; Protocol PRN Reason: Hypoglycemia Protocol Stop: 04/23/20 23:49 Glucose (Glucose 10 Tabs/Tube) 4 - 8 tabs PO UD PRN; Protocol PRN Reason: Hypoglycemia Protocol Stop: 04/23/20 23:49 Glucose (Glucose 40% Gel 15 Gm Tube) 15 - 30 gm PO UD PRN; Protocol PRN Reason: Hypoglycemia Protocol Stop: 04/23/20 23:49 Heparin Sodium (Porcine) (Heparin Sod 5,000 Unit/0.5 Ml Vial) 5,000 units SQ Q8 [facility] Stop: 04/23/20 23:49 Last Admin: 03/27/20 05:30 Dose: 5,000 units Documented by: Hydralazine HCl (Hydralazine Tab 50 Mg Tab) 50 mg PO QID [facility] Stop: 04/24/20 08:59 Last Admin: 03/26/20 20:48 Dose: 50 mg Documented by: Methylprednisolone 40 mg/ (Syringe) 0.64 mls @ 1.5 mls/min IV Q8H [facility] Stop: 04/24/20 15:59 Last Admin: 03/27/20 00:06 Dose: 1.5 mls/min Documented by: Furosemide 100 mg/ Syringe 10 mls @ 4 mls/min IV Q8 [facility] Stop: 04/25/20 13:59 Last Admin: 03/27/20 05:31 Dose: 4 mls/min Documented by: Daptomycin 725 mg/ Syringe 14.5 mls @ 0 mls/min IV Q24H [facility]; Protocol Stop: 04/09/20 13:59 Last Admin: 03/26/20 14:25 Dose: 15 mls/min Documented by: Ceftriaxone Sodium 2,000 mg/ (Dextrose) 70 mls @ 140 mls/hr IV DAILY@1400 CAROL ANN; Protocol Stop: 04/05/20 14:14 Last Infusion: 03/26/20 15:20 Dose: Infused Documented by: Doxycycline Hyclate 100 mg/ (Dextrose) 110 mls @ 55 mls/hr IV Q12H [facility]; Protocol Stop: 04/02/20 20:59 Last Infusion: 03/26/20 23:14 Dose: Infused Documented by: Influenza Virus Vaccine (Influenza Vaccine High Dose 65+ 0.5 Ml Syr) 0.5 ml IM .ONCE ONE Stop: 03/27/20 09:01 Insulin Aspart (Insulin Aspart 100 Units/Ml 3 Ml Pen) 0 units SC ACHS [facility] Stop: 04/23/20 23:49 Last Admin: 03/26/20 21:18 Dose: 4 units Documented by: Lactulose (Lactulose Syrup 30 Gm/45 Ml Udp) 30 gm PO TID [facility] Stop: 04/23/20 23:49 Last Admin: 03/26/20 20:48 Dose: Not Given Documented by: Levothyroxine Sodium (Levothyroxine Sodium 25 Mcg Tablet) 25 mcg PO DAILYBB [facility] Stop: 04/24/20 06:29 Last Admin: 03/27/20 05:30 Dose: 25 mcg Documented by: Levothyroxine Sodium (Levothyroxine Sodium 200 Mcg Tablet) 200 mcg PO DAILYBB [facility] Stop: 04/24/20 06:29 Last Admin: 03/27/20 05:30 Dose: 200 mcg Documented by: Metolazone ([facility] 5 Mg Tablet) [facility] Stop: 04/25/20 10:29 Last Admin: 03/26/20 11:17 Dose: 5 mg Documented by: Metoprolol Succinate (Metoprolol Succ 25mg Ext Rel Tab) 25 mg PO [facility] Stop: 04/24/20 08:59 Last Admin: 03/26/20 08:30 Dose: 25 mg Documented by: Miconazole Nitrate (Miconazole Nitrate Powder 43 Gm) 1 appln EXT PRN PRN PRN Reason: Affected Skin Folds Stop: 04/24/20 06:29 Miscellaneous (Carbohydrates For Hypoglycemia ) 15 - 30 gm PO UD PRN PRN Reason: Hypoglycemia Protocol Stop: 04/23/20 23:49 Miscellaneous Information (Daptomycin Consult Active) 1 ea N/A UD PRN PRN Reason: Consult Stop: 04/25/20 13:56 Nitroglycerin (Nitroglycerin Sl 0.4 Mg/Tab Tab) 0.4 mg SL UD PRN PRN Reason: Chest Pain Stop: 04/23/20 23:49 Pantoprazole Sodium (Pantoprazole 40 Mg Tab) 40 mg PO BID [facility] Stop: 04/24/20 08:59 Last Admin: 03/26/20 20:48 Dose: 40 mg Documented by: Prednisone (Prednisone 20 Mg Tab) 40 mg PO DAILY [facility] Stop: 03/29/20 08:59 Last Admin: 03/25/20 09:15 Dose: 40 mg Documented by:
[2020-03-27] MEDS ORDERED: INFLUENZA VACCINE HIGH DOSE 65+ 0.5 ML SYR IM ONE (09:00)
[2020-03-27] MEDS ORDERED: INFLUENZA ADMINISTRATION CHARGE ONE (09:00)
[2020-03-27] MEDS: INSULIN ASPART 100 UNITS/ML 3 ML PEN SC SCH ×4 (09:22→23:07)
[2020-03-27] MEDS: hydrALAZINE TAB 50 MG TAB PO SCH ×4 (09:25→21:38)
[2020-03-27] MEDS: FLUoxetine HCL 20 MG CAP PO SCH ×2 (09:29→14:22)
[2020-03-27] MEDS: METOPROLOL SUCC 25MG EXT REL TAB PO SCH (09:34)
[2020-03-27] MEDS: metOLazone 5 MG TABLET PO SCH (09:34)
[2020-03-27] MEDS: PANTOprazole 40 MG TAB PO SCH ×2 (09:54→21:38)
[2020-03-27] MEDS: DOXYCYCLINE HYCLATE 100 MG in DEXTROSE 5% 100 ML IV SCH ×2 (09:54→21:39)
[2020-03-27] MEDS: LACTULOSE SYRUP 30 GM/45 ML UDP PO SCH ×3 (09:55→22:10)
[2020-03-27] MEDS ORDERED: ALBUT/IPRATROP 3MG/0.5MG NEB 3 ML VIAL NEB PRN (10:09)
--- NOTE | 2020-03-27 10:43 | Nephrology Progress Note ---
Date of Service March 27, 2020 Assessment & Plan (1) Acute worsening of stage 3 chronic kidney disease: Patient with acute kidney injury on CKD. Baseline creatinine around 1.1 in November 2019. Creatinine is up trending to 2.4 today. Potassium is better at 4.8. -Continue Lasix 100 mg IV 3 times daily and metolazone 5 mg daily. -Monitor input output. -Avoid contrast unless lifesaving. (2) Acute on chronic respiratory failure with hypoxia and hypercapnia: Likely multifactorial due to COPD and pulmonary edema. Continue nebulizers and steroids. Will continue Lasix at least 2 ensure patient is even to net negative as tolerated. Continue oxygen and BiPAP as needed. Admission and Anticipated Discharge Date Admission Date: March 24, 2020 Subjective This is 64-year-old morbidly obese male with chronic respiratory failure admitted with acute on chronic respiratory failure and ELVI on CKD. He reports that his breathing is about the same. He required BiPAP overnight. Chest x-ray on 03/25 showed pulmonary edema. Patient is also a chronic smoker and has COPD. Review of Systems Review of Systems: All systems reviewed & are unremarkable except as noted in HPI & below Physical Exam Physical Exam: General exam: Appears comfortable, no acute distress HEENT: Pupils are equal and reactive to light Neck: No JVD, neck is supple trachea is midline Respiratory system:wheezing bilaterally. Gastrointestinal: Abdomen is soft, non distended, non tender, bowel sounds are present CVS: Regular rate and rhythm. No murmurs, rubs or gallops Musculoskeletal: No joint or muscle tenderness Extremities: Non tender, 2+ edema, peripheral pulses are present Neuro: Oriented, no tremors, no focal neurological deficits Skin: No rashes Results & [facility] ([facility]) Vital Signs (Past 12 Hours) Vital Signs Temp Pulse Pulse Pulse Resp BP Pulse Ox 03/27/20 07:28 62 22 95 03/27/20 07:27 62 22 95 03/27/20 06:55 37.0 C 66 17 146/72 H 96 03/27/20 03:25 36.7 C 63 19 133/67 97 03/27/20 03:17 65 22 96 03/26/20 23:54 64 03/26/20 23:22 36.9 C 69 18 137/66 97 Laboratory Results 03/27/20 05:20 03/27/20 05:20 Phosphorus 3.8
--- NOTE | 2020-03-27 11:55 | Cardiology Progress Note ---
Date of Service March 27, 2020 Assessment & Plan (1) Acute on chronic diastolic heart failure: (2) Acute on chronic respiratory failure with hypoxia and hypercapnia: (3) Acute worsening of stage 3 chronic kidney disease: Nephrology input noted and appreciated. Continue current dose of furosemide 100 mg IV 3 times daily, and metolazone 5 mg daily. Continue subcutaneous heparin for DVT prophylaxis, although 5000 units subcu every 8 hours may be an insufficient dose, may need to consider increasing this to 7500 units every 8 hours. Admission and Anticipated Discharge Date Admission Date: March 24, 2020 Subjective Patient seen in follow-up, Block catheter in place. No acute distress. Sinus rhythm at 65 bpm noted on telemetry. Physical Exam Physical Exam: Temp Pulse Resp BP Pulse Ox 37.0 C 60 24 146/72 H 94 03/27/20 06:55 03/27/20 10:40 03/27/20 10:40 03/27/20 06:55 03/27/20 10:40 Respiratory: Physical exam very limited due to body habitus, no rales Cardiovascular: Difficult to distinguish heart sounds 1+ lower extremity edema Results & Data ([facility]) Vital Signs (Past 12 Hours) Vital Signs Temp Pulse Pulse Pulse Resp BP Pulse Ox 03/27/20 10:40 60 24 94 03/27/20 10:35 60 24 94 03/27/20 07:28 62 22 95 03/27/20 07:27 62 22 95 03/27/20 06:55 37.0 C 66 17 146/72 H 96 03/27/20 03:25 36.7 C 63 19 133/67 97 03/27/20 03:17 65 22 96 03/26/20 23:54 64
[2020-03-27] MEDS: FLUoxetine HCL 10 MG CAP PO SCH (12:30)
[2020-03-27] MEDS: cefTRIAXone SODIUM 2,000 MG in DEXTROSE 5% 50 ML IV SCH (14:22)
[2020-03-27] MEDS: DAPTOmycin 725 MG in SYRINGE 0 ML IV SCH (14:23)
[2020-03-27] MEDS ORDERED: INSULIN GLARGINE SOLOSTAR 100 UNITS/ML 3 ML PEN SC STA (22:11)
[2020-03-28] MEDS: LEVOTHYROXINE SODIUM 200 MCG TABLET PO SCH (05:58)
[2020-03-28] MEDS: FUROSEMIDE 100 MG in SYRINGE 0 ML IV SCH ×3 (05:59→22:13)
[2020-03-28] MEDS: LEVOTHYROXINE SODIUM 25 MCG TABLET PO SCH ×2 (05:59→10:48)
[2020-03-28] MEDS: HEPARIN SOD 5,000 UNIT/0.5 ML VIAL SQ SCH ×3 (06:06→22:08)
[2020-03-28] MEDS: ALBUT/IPRATROP 3MG/0.5MG NEB 3 ML VIAL NEB SCH ×4 (07:27→19:04)
[2020-03-28 07:28] LABS: Hematocrit (blood only) 31.3 % (42-52); Hemoglobin 9.3 g/dL (14.0-18.0); Mean Corpuscular Hemoglobin 26.4 pg (25-34); Mean Corpuscular Hgb Conc 29.7 g/dL (32-36); Mean Corpuscular Volume 88.9 fL (80-100); Mean Platelet Volume 9.8 fL (7.4-10.4); Platelet Count 163 K/uL (130-400); RDW Coefficient of Variation 17.7 % (11.5-14.5); RDW Standard Deviation 57.4 fL (36.4-46.3); Red Blood Count 3.52 M/uL (4.7-6.1); White Blood Count 3.75 K/uL (4.8-10.8)
[2020-03-28] MEDS: methylPREDNISolone 40 MG in SYRINGE 0 ML IV SCH ×2 (08:22→16:54)
[2020-03-28] MEDS: metOLazone 5 MG TABLET PO SCH (08:24)
[2020-03-28] MEDS: METOPROLOL SUCC 25MG EXT REL TAB PO SCH (08:34)
[2020-03-28] MEDS: hydrALAZINE TAB 50 MG TAB PO SCH ×4 (08:34→22:13)
[2020-03-28] MEDS: LACTULOSE SYRUP 30 GM/45 ML UDP PO SCH ×3 (08:35→22:48)
[2020-03-28] MEDS: FLUoxetine HCL 10 MG CAP PO SCH ×2 (08:41→10:46)
[2020-03-28 08:42] LABS: BUN Creatinine Ratio 28.4 (10-20); Calcium 9.3 mg/dl (8.5-10.1); Creatinine Clr Calc Pharmacy 50.4 ml/min; Est GFR (African American) 30.2; Magnesium 2.6 mg/dl (1.8-2.4); Potassium 4.5 mmol/L (3.5-5.1)
[2020-03-28] MEDS: DOXYCYCLINE HYCLATE 100 MG in DEXTROSE 5% 100 ML IV SCH (08:45)
[2020-03-28 08:52] LABS: Beta-Hydroxybutyrate 1.73 mg/dl (0.2-2.81)
[2020-03-28] MEDS: PANTOprazole 40 MG TAB PO SCH ×2 (09:00→22:50)
--- NOTE | 2020-03-28 09:59 | Hospitalist Progress Note ---
Date of Service March 28, 2020 Assessment & Plan (1) Acute on chronic respiratory failure with hypoxia and hypercapnia: (2) Acute on chronic diastolic heart failure: (3) Acute metabolic encephalopathy: (4) UTI (urinary tract infection): (5) Acute worsening of stage 3 chronic kidney disease: (6) Diabetes mellitus, type 2: (7) Anemia: (8) SAFIA (obstructive sleep apnea): (9) Obesity hypoventilation syndrome: Encephalopathy Multifactorial : Acute on chronic hypoxemic, hypercapnic respiratory failure secondary to decompensated heart failure/COPD exacerbation, hx OHS ELVI possible Cardiorenal syndrome Complicated UTI, no sepsis Hyperammonemia, possible acute hepatic encephalopathy, possible chronic liver disease given fatty liver findings on abdominal ultrasound from 2000 Hypoglycemia, hx DM2 insulin requiring, reasonable control as of recent outpatient hemoglobin A1c of 7.22 November 2019 Gram positive bacteremia -possible contaminant, however for now will cover with IV antibiotics and will closely monitor, repeat blood cultures Continue BiPAP -mental status much improved as of March 26 evening ELVI with oliguria-worsening renal function, despite IV diuretics Lasix-albumin given kidney dysfunction, Nephrology consulted, patient likely has ATN from hypoxia, hypercapnia in the setting of respiratory failure CT chest/abd/pelvis - obtained to better evaluate fluid status Per nephrology - increased dose IV Lasix to 100 mg IV every 8 hours and metolazone 5 mg daily Overall prognosis of the patient is quite poor Strict I/Os, daily weights, CHF education, fluid restriction Cardiology consult RE CHF - continue diuretic therapy per nephrology, continue BiPAP, no additional cardiac testing indicated at this time Monitor renal function with diuretic Rx Doxycycline, nebs, prednisone course for COPD exacerbation Follow urine cultures, IV Cefepime for complicated UTI Daptomycin added for gram posit. bacteremia - possibly contaminant, will d/c dapto if other blood cltx negat. Lactulose for possible hepatic encephalopathy, liver ultrasound rule out chronic liver disease, may need GI consultation Appropriate to hold basal insulin for now given hypoglycemic episodes, ISS BG goal [id number], update hemoglobin A1c Patient is not becoming more hyperglycemic, requiring more insulin. We will also involve glycemic pharmacist. (10) Hypertension: BP on lower side initially now seems at goal Wide-complex tachycardia -Asymptomatic episodes, on March 28, PM -Given baseline LBBB, difficult to distinguish between VT and SVT or AFL with aberrancy -Stat potassium and mag levels ordered, normal -Discussed with cardiology, will switch from metoprolol succinate to tartrate 25 twice daily -We will try to avoid extra fluid chronic LBBB hyperlipidemia on statin Rx chronic anemia, hemoglobin at baseline past tobacco abuse Functional disability (patient's brother finding it more difficult to care for the patient at home as per patient niece). PT OT eval (11) Hypothyroidism: euthyroid as of current TSH (12) DVT prophylaxis: Heparin subcu Full code as per patient's niece/POA (Ms. Selam Cadet), she can be contacted at . [place] updated over the phone. Discussed with her patient's poor prognosis, she states that she already discussed this with family and they are aware that if pt's medical condition does not improve that he may need hospice. I discussed with her CODE STATUS however she states this has been unclear. Patient himself most recently wanted to be full code (in the past was DNR ) and patient also confirmed this with me today - full code. Admission and Anticipated Discharge Date Admission Date: March 24, 2020 Subjective Patient is laying in bed, in no acute distress. He has no complaints. Later in afternoon, paged about the patient's abnormal rhythm, reportedly 40 beat of V. tach. Start mag and potassium repeat blood work ordered. Unremarkable. Dr. Reyna from cardiology contacted for further guidance. Also after discussing with nursing staff, patient's urine output was reported twice in EMR and therefore his urine output is not nearly as high as thought. Patient's brother Mac, and niece Virginia updated over the phone this evening (03/28/20). Review of Systems Review of Systems: All systems reviewed & are unremarkable except as noted in HPI & below Patient denies any complaints, however confused Constitutional: no fever and no chills Respiratory: no cough and no dyspnea (However he is on BiPAP) Cardiovascular: + edema; no chest pain and no palpitations Gastrointestinal: no abdominal pain, no nausea and no vomiting Physical Exam Physical Exam: Constitutional: Morbidly obese male, on BiPAP therapy, alert and answers most questions appropriately (mental status much improved), vitals as above, NAD Head: Normocephalic, Atraumatic Eyes: PERRL, EOMI, conjunctivae normal, anicteric sclerae ENMT: external ear and nose normal, oropharynx normal Neck: trachea midline, no thyromegaly normal visual inspection Respiratory: normal respiratory effort, decreased aeration throughout, poor inspiratory effort, positive mild rhonchi, mild wheezes. Normal insp/exp effort, no accessory muscle use Cardiovascular: Distant heart sounds, RRR, no murmur, bilateral lower extremity chronic venous stasis changes with nodular lymphedema Chest: normal inspection of chest Abdomen: Obese abdomen, large pannus, soft, nontender, unable to appreciate hepatosplenomegaly secondary to obesity Musculoskeletal: no cyanosis or clubbing Skin: warm and dry Neurologic: PERRL, EOMI, no face palsy, speech is slow,moves all extremities Psychiatric: A+Ox3, euthymic affect : Block catheter with dark yellow urine Results & Data Results & Data ([facility]) Vital Signs (Past 12 Hours) Vital Signs Temp Pulse Pulse Pulse Resp BP BP 03/28/20 08:30 81 110/70 03/28/20 08:09 36.3 C L 84 20 99/60 L 03/28/20 07:30 78 20 03/28/20 07:28 78 20 03/28/20 04:00 58 L 03/28/20 03:31 36.5 C 95 H 19 135/74 03/28/20 03:12 100 H 19 03/27/20 23:17 36.8 C 88 18 134/78 03/27/20 22:09 65 21 Pulse Ox 03/28/20 08:30 03/28/20 08:09 98 03/28/20 07:30 97 03/28/20 07:28 97 03/28/20 04:00 03/28/20 03:31 95 03/28/20 03:12 94 03/27/20 23:17 96 03/27/20 22:09 96 Laboratory Results 03/28/20 03/28/20 03/28/20 Range/Units 07:54 07:53 06:43 WBC (4.8-10.8) K/uL RBC (4.7-6.1) M/uL Hgb (14.0-18.0) g/dL Hct (42-52) % MCV (80-100) fL MCH (25-34) pg MCHC (32-36) g/dL RDW Std Deviation (36.4-46.3) fL RDW Coeff of Neena (11.5-14.5) % Plt Count (130-400) K/uL MPV (7.4-10.4) fL Sodium 135 L (136-145) mmol/L Potassium 4.5 (3.5-5.1) mmol/L Chloride 98 (98-107) mmol/L Carbon Dioxide 32 (21-32) mmol/L Anion Gap 6.0 (3-11) BUN 70 H (7-18) mg/dl Creatinine 2.48 H (0.6-1.4) mg/dl Est Cr Clr Drug Dosing 50.4 ml/min Est GFR ( Amer) 30.2 Est GFR (Non-Af Amer) 26.0 BUN/Creatinine Ratio 28.4 H (10-20) Glucose 303 H* (70-99) mg/dl POC Glucose 332 H* 335 H* (70-99) mg/dl Calcium 9.3 (8.5-10.1) mg/dl Phosphorus 4.0 (2.5-4.9) mg/dl Magnesium 2.6 H (1.8-2.4) mg/dl Beta-Hydroxybutyric Acd 1.73 (0.2-2.81) mg/dl 03/28/20 03/27/20 03/27/20 Range/Units 06:43 21:25 17:33 WBC 3.75 L (4.8-10.8) K/uL RBC 3.52 L (4.7-6.1) M/uL Hgb 9.3 L (14.0-18.0) g/dL Hct 31.3 L (42-52) % MCV 88.9 (80-100) fL MCH 26.4 (25-34) pg MCHC 29.7 L (32-36) g/dL RDW Std Deviation 57.4 H (36.4-46.3) fL RDW Coeff of Neena 17.7 H (11.5-14.5) % Plt Count 163 (130-400) K/uL MPV 9.8 (7.4-10.4) fL Sodium (136-145) mmol/L Potassium (3.5-5.1) mmol/L Chloride (98-107) mmol/L Carbon Dioxide (21-32) mmol/L Anion Gap (3-11) BUN (7-18) mg/dl Creatinine (0.6-1.4) mg/dl Est Cr Clr Drug Dosing ml/min Est GFR ( Amer) Est GFR (Non-Af Amer) BUN/Creatinine Ratio (10-20) Glucose (70-99) mg/dl POC Glucose 354 H* 304 H* (70-99) mg/dl Calcium (8.5-10.1) mg/dl Phosphorus (2.5-4.9) mg/dl Magnesium (1.8-2.4) mg/dl Beta-Hydroxybutyric Acd (0.2-2.81) mg/dl 03/27/20 Range/Units 11:36 WBC (4.8-10.8) K/uL RBC (4.7-6.1) M/uL Hgb (14.0-18.0) g/dL Hct (42-52) % MCV (80-100) fL MCH (25-34) pg MCHC (32-36) g/dL RDW Std Deviation (36.4-46.3) fL RDW Coeff of Neena (11.5-14.5) % Plt Count (130-400) K/uL MPV (7.4-10.4) fL Sodium (136-145) mmol/L Potassium (3.5-5.1) mmol/L Chloride (98-107) mmol/L Carbon Dioxide (21-32) mmol/L Anion Gap (3-11) BUN (7-18) mg/dl Creatinine (0.6-1.4) mg/dl Est Cr Clr Drug Dosing ml/min Est GFR ( Amer) Est GFR (Non-Af Amer) BUN/Creatinine Ratio (10-20) Glucose (70-99) mg/dl POC Glucose 270 H (70-99) mg/dl Calcium (8.5-10.1) mg/dl Phosphorus (2.5-4.9) mg/dl Magnesium (1.8-2.4) mg/dl Beta-Hydroxybutyric Acd (0.2-2.81) mg/dl Medications Administered Current Inpatient Medications Acetaminophen (Acetaminophen 325 Mg Tab) 325 mg PO Q6H PRN PRN Reason: Mild Pain Stop: 04/23/20 23:49 Albuterol (Albut/Ipratrop 3mg/0.5mg Neb 3 Ml Vial) 3 ml NEB QIDR CAROL ANN Stop: 04/26/20 06:59 Last Admin: 03/28/20 07:27 Dose: 3 ml Documented by: Albuterol (Albut/Ipratrop 3mg/0.5mg Neb 3 Ml Vial) 3 ml NEB Q2R PRN PRN Reason: wheezing Stop: 04/26/20 10:08 Dextrose (Dextrose 50% 50 Ml Syringe) 25 - 50 ml IV UD PRN; Protocol PRN Reason: Hypoglycemia Protocol Stop: 04/23/20 23:49 Fluoxetine HCl (Fluoxetine Hcl 20 Mg Cap) 20 mg PO DAILY CAROL ANN Stop: 04/24/20 08:59 Last Admin: 03/27/20 14:22 Dose: 20 mg Documented by: Fluoxetine HCl (Fluoxetine Hcl 10 Mg Cap) 10 mg PO DAILY CAROL ANN Stop: 04/24/20 08:59 Last Admin: 03/28/20 08:41 Dose: 10 mg Documented by: Glucagon (Glucagon For Inj 1 Mg Vial) 1 mg SQ UD PRN; Protocol PRN Reason: Hypoglycemia Protocol Stop: 04/23/20 23:49 Glucose (Glucose 10 Tabs/Tube) 4 - 8 tabs PO UD PRN; Protocol PRN Reason: Hypoglycemia Protocol Stop: 04/23/20 23:49 Glucose (Glucose 40% Gel 15 Gm Tube) 15 - 30 gm PO UD PRN; Protocol PRN Reason: Hypoglycemia Protocol Stop: 04/23/20 23:49 Heparin Sodium (Porcine) (Heparin Sod 5,000 Unit/0.5 Ml Vial) 7,500 units SQ Q8 CAROL ANN Stop: 04/27/20 13:59 Hydralazine HCl (Hydralazine Tab 50 Mg Tab) 50 mg PO QID CAROL ANN Stop: 04/24/20 08:59 Last Admin: 03/28/20 08:34 Dose: 50 mg Documented by: Methylprednisolone 40 mg/ (Syringe) 0.64 mls @ 1.5 mls/min IV Q8H CAROL ANN Stop: 04/24/20 15:59 Last Admin: 03/28/20 08:22 Dose: 1.5 mls/min Documented by: Furosemide 100 mg/ Syringe 10 mls @ 4 mls/min IV Q8 CAROL ANN Stop: 04/25/20 13:59 Last Admin: 03/28/20 05:59 Dose: 4 mls/min Documented by: Daptomycin 725 mg/ Syringe 14.5 mls @ 0 mls/min IV Q24H [facility]; Protocol Stop: 04/09/20 13:59 Last Admin: 03/27/20 14:23 Dose: 2 mls/min Documented by: Ceftriaxone Sodium 2,000 mg/ (Dextrose) 70 mls @ 140 mls/hr IV DAILY@1400 CAROL ANN; Protocol Stop: 04/05/20 14:14 Last Infusion: 03/27/20 15:00 Dose: Infused Documented by: Doxycycline Hyclate 100 mg/ (Dextrose) 110 mls @ 55 mls/hr IV Q12H [facility]; Protocol Stop: 04/02/20 20:59 Last Admin: 03/28/20 08:45 Dose: 55 mls/hr Documented by: Insulin Aspart (Insulin Aspart 100 Units/Ml 3 Ml Pen) 0 units SC [facility] Stop: 04/26/20 22:14 Last Admin: 03/27/20 23:07 Dose: 7 units Documented by: Insulin Aspart (Insulin Aspart 100 Units/Ml 3 Ml Pen) 5 units SC [facility] Stop: 03/28/20 09:53 Insulin Glargine (Insulin Glargine Solostar 100 Units/Ml 3 Ml Pen) 10 units SC [facility] Stop: 04/27/20 20:59 Insulin Glargine (Insulin Glargine Solostar 100 Units/Ml 3 Ml Pen) 20 units SQ [facility] Stop: 04/27/20 20:59 Lactulose (Lactulose Syrup 30 Gm/45 Ml Udp) 30 gm PO TID [facility] Stop: 04/23/20 23:49 Last Admin: 03/28/20 08:35 Dose: 30 gm Documented by: Levothyroxine Sodium (Levothyroxine Sodium 25 Mcg Tablet) [facility] Stop: 04/24/20 06:29 Last Admin: 03/28/20 05:59 Dose: 25 mcg Documented by: Levothyroxine Sodium (Levothyroxine Sodium 200 Mcg Tablet) 200 [facility]cg [facility] Stop: 04/24/20 06:29 Last Admin: 03/28/20 05:58 Dose: 200 mcg Documented by: Levothyroxine Sodium (Levothyroxine Sodium 200 Mcg Tablet) 200 mcg PO [facility] Stop: 04/27/20 09:59 Levothyroxine Sodium (Levothyroxine Sodium 25 Mcg Tablet) 25 mcg PO QAM [facility] Stop: 04/27/20 09:59 Metolazone (Metolazone 5 Mg Tablet) 5 mg PO QAM [facility] Stop: 04/25/20 10:29 Last Admin: 03/28/20 08:24 Dose: 5 mg Documented by: Metoprolol Succinate (Metoprolol Succ 25mg Ext Rel Tab) 25 mg PO QAM [facility] Stop: 04/24/20 08:59 Last Admin: 03/28/20 08:34 Dose: 25 mg Documented by: Miconazole Nitrate (Miconazole Nitrate Powder 43 Gm) 1 appln EXT PRN PRN PRN Reason: Affected Skin Folds Stop: 04/24/20 06:29 Miscellaneous (Carbohydrates For Hypoglycemia ) 15 - 30 gm PO UD PRN PRN Reason: Hypoglycemia Protocol Stop: 04/23/20 23:49 Miscellaneous Information (Daptomycin Consult Active) 1 ea N/A UD PRN PRN Reason: Consult Stop: 04/25/20 13:56 Nitroglycerin (Nitroglycerin Sl 0.4 Mg/Tab Tab) 0.4 mg SL UD PRN PRN Reason: Chest Pain Stop: 04/23/20 23:49 Non-Formulary Medication (Fluoxetine) 10 mg PO DAILY [facility] Stop: 04/27/20 09:59 Pantoprazole Sodium (Pantoprazole 40 Mg Tab) 40 mg PO BID CAROL ANN Stop: 04/24/20 08:59 Last Admin: 03/28/20 09:00 Dose: 40 mg Documented by: Prednisone (Prednisone 20 Mg Tab) 40 mg PO DAILY CAROL ANN Stop: 03/29/20 08:59 Last Admin: 03/25/20 09:15 Dose: 40 mg Documented by:
[2020-03-28] MEDS ORDERED: LEVOTHYROXINE SODIUM 200 MCG TABLET PO SCH (10:00)
[2020-03-28] MEDS ORDERED: INSULIN ASPART 100 UNITS/ML 3 ML PEN SC ONE (10:15)
[2020-03-28] MEDS ORDERED: ALBUMIN 25% 50 ML IV ONE ×2 (10:15→18:00)
--- NOTE | 2020-03-28 10:56 | Nephrology Progress Note ---
Date of Service March 28, 2020 Assessment & Plan (1) Acute worsening of stage 3 chronic kidney disease: Patient with acute kidney injury on CKD. Baseline creatinine around 1.1 in November 2019. Creatinine is up trending to 2.48 today. Potassium is better at 4.5. No indication for dialysis. -Continue Lasix 100 mg IV 3 times daily and metolazone 5 mg daily. -Monitor input output. -Avoid contrast unless lifesaving. (2) Acute on chronic respiratory failure with hypoxia and hypercapnia: Likely multifactorial due to COPD and pulmonary edema. Continue nebulizers and steroids. Will continue Lasix to ensure patient is even to net negative as tolerated. Continue oxygen and BiPAP as needed. Admission and Anticipated Discharge Date Admission Date: March 24, 2020 Subjective Patient feels better today. Breathing is slightly better but still requiring oxygen nasal cannula. Patient using BiPAP at night. Creatinine is stable. He was net -1.6 L. Review of Systems Review of Systems: All systems reviewed & are unremarkable except as noted in HPI & below Physical Exam Physical Exam: General exam: Morbidly obese male, appears comfortable on oxygen nasal cannula, no acute distress HEENT: Pupils are equal and reactive to light Neck: No JVD, neck is supple trachea is midline Respiratory system: Clear breath sounds bilaterally. Gastrointestinal: Abdomen is soft, non distended, non tender, bowel sounds are present CVS: Regular rate and rhythm. No murmurs, rubs or gallops Musculoskeletal: No joint or muscle tenderness Extremities: Non tender, 1+ edema, peripheral pulses are present Neuro: Oriented, no tremors, no focal neurological deficits Skin: No rashes Results & Data ([facility]) Vital Signs (Past 12 Hours) Vital Signs Temp Pulse Pulse Pulse Resp BP BP 03/28/20 08:30 81 110/70 03/28/20 08:09 36.3 C L 84 20 99/60 L 03/28/20 07:30 78 20 03/28/20 07:28 78 20 03/28/20 04:00 58 L 03/28/20 03:31 36.5 C 95 H 19 135/74 03/28/20 03:12 100 H 19 03/27/20 23:17 36.8 C 88 18 134/78 Pulse Ox 03/28/20 08:30 03/28/20 08:09 98 03/28/20 07:30 97 03/28/20 07:28 97 03/28/20 04:00 03/28/20 03:31 95 03/28/20 03:12 94 03/27/20 23:17 96 Laboratory Results 03/28/20 06:43 03/28/20 03/28/20 06:43 06:43 WBC 3.75 L RBC 3.52 L MCV 88.9 MCH 26.4 MCHC 29.7 L RDW Std Deviation 57.4 H RDW Coeff of Neena 17.7 H Plt Count 163 MPV 9.8 Phosphorus 4.0
[2020-03-28] MEDS: INSULIN ASPART 100 UNITS/ML 3 ML PEN SC SCH ×3 (12:38→22:06)
[2020-03-28] MEDS ORDERED: INSULIN GLARGINE SOLOSTAR 100 UNITS/ML 3 ML PEN SC ONE (12:52)
[2020-03-28] MEDS: cefTRIAXone SODIUM 2,000 MG in DEXTROSE 5% 50 ML IV SCH (14:11)
[2020-03-28] MEDS: DAPTOmycin 725 MG in SYRINGE 0 ML IV SCH (14:15)
[2020-03-28] MEDS ORDERED: PHARMACY GLYCEMIC MGMT CONSULT PRN (15:04)
--- NOTE | 2020-03-28 15:23 | Pharmacy Report ---
Glycemic Control Consultation - Date of Service March 28, 2020 - Scope Scope: Glycemic Pharmacist consulted for glycemic control and to write orders per [facility] inpatient glycemic control protocol. - Objective Weight: 194.6 kg Accuchecks BSG (last 24hrs): 03/27/20 03/27/20 03/28/20 17:33 21:25 06:43 Glucose 303 H* POC Glucose 304 H* 354 H* 03/28/20 03/28/20 03/28/20 07:53 07:54 11:52 Glucose POC Glucose 335 H* 332 H* 381 H* 03/28/20 11:53 Glucose POC Glucose 377 H* Laboratory Data (last 24hrs): 03/28/20 06:43 Potassium 4.5 Carbon Dioxide 32 Anion Gap 6.0 Creatinine 2.48 H Est Cr Clr Drug Dosing 50.4 Beta-Hydroxybutyric Acd 1.73 HbA1c: Hemoglobin A1c 5.7 % (4.5-5.6) H 03/24/20 18:58 - Recent Pertinent Medications Outpatient Anti-diabetic Regimen: * Lantus 40 units HS + Novolog * A1c = 5.7 % 03/24/20 The patient is currently receiving: * Basal insulin: Lantus 10 units x 1 yesterday evening and then again today at 1400 * Correctional Insulin: Novolog Correction per scale ACHS Goal Range: Low 140 mg/dL - High 180 mg/dL Correction Factor: 25 mg/dL/unit * Prandial insulin: Per carb ratio of 1 unit per 15 grams CHO consumed * Oral Agents: Risk Factors for Insulin Resistance: * Steroids: Solu-Medrol 40 mg IV q8 hours * Infection: UTI (Rocephin) + respiratory failure (doxycycline) + positive blood culture (daptomycin) * Diet: T2DM - Assessment & Plan Assessment & Plan: ASSESSMENT: * Mr Douglass is a 64 y/o M with a PMH of well controlled insulin dependent T2DM. He is admitted for multiple infections including UTI and positive blood cultures. He was start on Solu-Medrol 40 mg IV q8 hours on 03/26/2020 for respiratory failure. BSGs have been above 200 mg/dL since 03/26/2020 and above 300 mg/dL since 1700 on 03/27/20. * Patient was given 10 units of Lantus yesterday evening and 10 units today. Since on 40 units of basal at home, will give additional 40 units now as basal load. Morning Lantus will need to be ordered. * Novolog will be tightened to weight-based stress of 3 for now. This will not take affect until dinnertime however. Expect that patient may require IV insulin bolus at dinnertime. * Discussed with provider regarding insulin infusion. She wishes to minimize fluid intake. Will take this into account and attempt for aggressive yet safe SQ insulin. Overnight checks added. PLAN FOR INPATIENT GLYCEMIC CONTROL: * Basal insulin * Lantus 40 units SQ x 1 * Bolus insulin * NovoLog per scale ACHS or Q6hrs while NPO * Goal Range: Low 110 mg/dL - High 140 mg/dL * Correction Factor: 10 mg/dL/unit * Nutritional / Prandial insulin per carb ratio of 1 unit per 4 grams CHO consumed * Please note that the plan above was derived based on current level of insulin resistance and hospital stress. These recommendations are appropriate for inpatient admission only. Plan of care upon discharge will need to be reassessed to avoid potential outpatient hypo/hyperglycemia. Thank you.
[2020-03-28] MEDS ORDERED: INSULIN GLARGINE SOLOSTAR 100 UNITS/ML 3 ML PEN SQ ONE (15:30)
[2020-03-28] MEDS ORDERED: POTASSIUM CHLORIDE 20 MEQ TABCR PO STA ×2 (16:34→17:30)
[2020-03-28 17:13] LABS: Creatinine Clr Calc Pharmacy 48.1 ml/min; Est GFR (African American) 28.5; Est GFR (Non-African American) 24.6; Magnesium 2.5 mg/dl (1.8-2.4); Phosphorus 3.6 mg/dl (2.5-4.9); Potassium 4.5 mmol/L (3.5-5.1)
[2020-03-28 17:26] LABS: Beta-Hydroxybutyrate 0.9 mg/dl (0.2-2.81)
[2020-03-28] MEDS ORDERED: INSULIN HUMAN REGULAR PER UNIT 10 UNITS in SYRINGE 9.9 ML IV ONE (17:30)
[2020-03-28] MEDS ORDERED: METOPROLOL TARTRATE 25 MG TAB PO ONE (17:48)
--- NOTE | 2020-03-28 17:54 | Communication Note ---
Date of Service: March 28, [address] Rodriguez who contacted me regarding runs of asymptomatic wide complex tachycardia on telemetry, noted at 16:19 and 17:04. Rate 150-160, terminated spontaneously. Given baseline LBBB, difficult to distinguish between VT and SVT or AFL with aberrancy. Electrolytes checked, and K and Magnesium levels are normal. Plan: Cautiously increase metoprolol to metoprolol tartrate 25 mg BID. Check chem panel , Mg level in am. Also to reduce IV fluid input, recommend transition IV doxycycline to oral. Can transition to oral prednisone instead of IV solumedrol.
[2020-03-28] MEDS ORDERED: INSULIN GLARGINE SOLOSTAR 100 UNITS/ML 3 ML PEN SQ SCH (21:00)
[2020-03-28] MEDS ORDERED: INSULIN GLARGINE SOLOSTAR 100 UNITS/ML 3 ML PEN SC SCH (21:00)
[2020-03-28] MEDS: DOXYCYCLINE HYCLATE 100 MG CAP PO SCH (22:13)
[2020-03-29] MEDS: INSULIN ASPART 100 UNITS/ML 3 ML PEN SC SCH ×7 (00:30→20:55)
[2020-03-29] MEDS: LEVOTHYROXINE SODIUM 25 MCG TABLET PO SCH ×2 (05:47→07:29)
[2020-03-29] MEDS: LEVOTHYROXINE SODIUM 200 MCG TABLET PO SCH ×2 (05:47→07:30)
[2020-03-29] MEDS: HEPARIN SOD 5,000 UNIT/0.5 ML VIAL SQ SCH ×3 (05:51→20:53)
[2020-03-29] MEDS: FUROSEMIDE 100 MG in SYRINGE 0 ML IV SCH ×3 (05:55→20:54)
[2020-03-29 06:48] LABS: BUN Creatinine Ratio 29.2 (10-20); Calcium 8.9 mg/dl (8.5-10.1); Creatinine Clr Calc Pharmacy 51.3 ml/min; Est GFR (African American) 30.6; Est GFR (Non-African American) 26.4; Magnesium 2.7 mg/dl (1.8-2.4); Potassium 4.8 mmol/L (3.5-5.1)
[2020-03-29] MEDS: ALBUT/IPRATROP 3MG/0.5MG NEB 3 ML VIAL NEB SCH ×9 (07:16→23:10)
[2020-03-29] MEDS: NovoLIN-N (NPH) PER UNIT CHARGE SQ SCH (08:45)
[2020-03-29] MEDS: hydrALAZINE TAB 50 MG TAB PO SCH ×4 (08:46→20:51)
[2020-03-29] MEDS: predniSONE 20 MG TAB PO SCH (08:46)
[2020-03-29] MEDS: METOPROLOL TARTRATE 25 MG TAB PO SCH ×2 (08:46→20:52)
[2020-03-29] MEDS: metOLazone 5 MG TABLET PO SCH (08:46)
[2020-03-29] MEDS: FLUoxetine HCL 20 MG CAP PO SCH (08:47)
[2020-03-29] MEDS: FLUoxetine HCL 10 MG CAP PO SCH ×2 (08:47→08:48)
[2020-03-29] MEDS: DOXYCYCLINE HYCLATE 100 MG CAP PO SCH ×2 (08:48→20:53)
[2020-03-29] MEDS: INSULIN GLARGINE SOLOSTAR 100 UNITS/ML 3 ML PEN SC SCH (08:49)
[2020-03-29] MEDS: PANTOprazole 40 MG TAB PO SCH ×2 (08:50→20:52)
[2020-03-29] MEDS: LACTULOSE SYRUP 30 GM/45 ML UDP PO SCH ×3 (08:52→20:51)
[2020-03-29] MEDS: ACETAMINOPHEN 325 MG TAB PO PRN (09:06)
--- NOTE | 2020-03-29 09:10 | Hospitalist Progress Note ---
Date of Service March 29, 2020 Assessment & Plan (1) Acute on chronic respiratory failure with hypoxia and hypercapnia: (2) Acute on chronic diastolic heart failure: (3) Acute metabolic encephalopathy: (4) UTI (urinary tract infection): (5) Acute worsening of stage 3 chronic kidney disease: (6) Diabetes mellitus, type 2: (7) Anemia: (8) SAFIA (obstructive sleep apnea): (9) Obesity hypoventilation syndrome: Encephalopathy Multifactorial : Acute on chronic hypoxemic, hypercapnic respiratory failure secondary to decompensated heart failure/COPD exacerbation, hx OHS ELVI possible Cardiorenal syndrome Complicated UTI, no sepsis Hyperammonemia, possible acute hepatic encephalopathy, possible chronic liver disease given fatty liver findings on abdominal ultrasound from 2000 Hypoglycemia, hx DM2 insulin requiring, reasonable control as of recent outpatient hemoglobin A1c of 7.22 November 2019 Gram positive bacteremia -possible contaminant, however for now will cover with IV antibiotics and will closely monitor, repeat blood cultures Continue BiPAP -mental status much improved as of March 26 evening ELVI with oliguria-worsening renal function, despite IV diuretics Lasix-albumin given kidney dysfunction, Nephrology consulted, patient likely has ATN from hypoxia, hypercapnia in the setting of respiratory failure CT chest/abd/pelvis - obtained to better evaluate fluid status Per nephrology - increased dose IV Lasix to 100 mg IV every 8 hours and metolazone 5 mg daily Overall prognosis of the patient is quite poor Strict I/Os, daily weights, CHF education, fluid restriction Cardiology consult RE CHF - continue diuretic therapy per nephrology, continue BiPAP, no additional cardiac testing indicated at this time Monitor renal function with diuretic Rx Doxycycline, nebs, prednisone course for COPD exacerbation Follow urine cultures, IV Cefepime for complicated UTI Daptomycin added for gram posit. bacteremia - possibly contaminant, will d/c dapto if other blood cltx negat. Lactulose for possible hepatic encephalopathy, liver ultrasound rule out chronic liver disease, may need GI consultation (10) Hypertension: BP on lower side initially now seems at goal Wide-complex tachycardia -Asymptomatic episodes, on March 28 -Given baseline LBBB, difficult to distinguish between VT and SVT or AFL with aberrancy -Stat potassium and mag levels ordered, normal -Discussed with cardiology, switched from metoprolol succinate to tartrate 25 twice daily -We will try to avoid extra fluid chronic LBBB hyperlipidemia on statin Rx chronic anemia, hemoglobin at baseline past tobacco abuse DM type 2 -glycemic pharmacist involved Functional disability (patient's brother finding it more difficult to care for the patient at home as per patient niece). PT OT eval (11) Hypothyroidism: euthyroid as of current TSH (12) DVT prophylaxis: Heparin subcu Full code as per patient's niece/POA (Ms. Selam Cadet), she can be contacted at . [place] updated over the phone. Discussed with her patient's poor prognosis, she states that she already discussed this with family and they are aware that if pt's medical condition does not improve that he may need hospice. I discussed with her CODE STATUS however she states this has been unclear. Patient himself most recently wanted to be full code (in the past was DNR ) and patient also confirmed this with me today - full code. Admission and Anticipated Discharge Date Admission Date: March 24, 2020 Subjective Patient seen in bed, having popsicle this morning. Says that he feels short of breath. Discussed with the nursing staff, to put patient back on BiPAP. Patient otherwise denies any fever chills, chest pain, abdominal pain, nausea or vomiting. Review of Systems Review of Systems: All systems reviewed & are unremarkable except as noted in HPI & below Constitutional: no fever and no chills Respiratory: + dyspnea (when off bipap) Cardiovascular: no chest pain and no palpitations Gastrointestinal: no abdominal pain, no nausea and no vomiting Physical Exam Physical Exam: Constitutional: Morbidly obese male, off bipap now (for short period of time) alert and answers most questions appropriately (mental status much improved), vitals as above, NAD Head: Normocephalic, Atraumatic Eyes: PERRL, EOMI, conjunctivae normal, anicteric sclerae ENMT: external ear and nose normal, oropharynx normal Neck: trachea midline, no thyromegaly normal visual inspection Respiratory: normal respiratory effort, decreased aeration throughout, poor inspiratory effort, positive mild rhonchi, nasilar crackles, mild wheezes. Physical exam difficult d/t body habitus. Normal insp/exp effort, no accessory muscle use Cardiovascular: Distant heart sounds, RRR, no murmur, bilateral lower extremity chronic venous stasis changes with nodular lymphedema Chest: normal inspection of chest Abdomen: Obese abdomen, large pannus, soft, nontender, unable to appreciate hepatosplenomegaly secondary to obesity Musculoskeletal: no cyanosis or clubbing Skin: warm and dry Neurologic: PERRL, EOMI, no face palsy, speech is slow,moves all extremities Psychiatric: A+Ox3, euthymic affect : Block catheter with dark yellow urine Results & Data Results & Data ([facility]) Vital Signs (Past 12 Hours) Vital Signs Temp Pulse Pulse Resp BP Pulse Ox 03/29/20 07:35 36.7 C 95 H 22 134/75 95 03/29/20 07:17 71 21 97 03/29/20 07:16 71 21 97 03/29/20 04:37 37 C 88 20 108/61 96 03/29/20 02:59 83 17 94 03/29/20 00:23 36.5 C 94 H 20 117/67 97 03/28/20 23:08 85 21 97 03/28/20 23:00 95 H Laboratory Results 03/29/20 03/29/20 03/29/20 Range/Units 07:34 05:34 03:58 Sodium 136 (136-145) mmol/L Potassium 4.8 (3.5-5.1) mmol/L Chloride 100 (98-107) mmol/L Carbon Dioxide 34 H (21-32) mmol/L Anion Gap 2.0 L (3-11) BUN 71 H (7-18) mg/dl Creatinine 2.45 H (0.6-1.4) mg/dl Est Cr Clr Drug Dosing 51.3 ml/min Est GFR ( Amer) 30.6 Est GFR (Non-Af Amer) 26.4 BUN/Creatinine Ratio 29.2 H (10-20) Glucose 149 H (70-99) mg/dl POC Glucose 155 H 172 H (70-99) mg/dl Calcium 8.9 (8.5-10.1) mg/dl Phosphorus (2.5-4.9) mg/dl Magnesium 2.7 H (1.8-2.4) mg/dl Beta-Hydroxybutyric Acd (0.2-2.81) mg/dl 03/29/20 03/28/20 03/28/20 Range/Units 00:10 21:05 20:47 Sodium (136-145) mmol/L Potassium (3.5-5.1) mmol/L Chloride (98-107) mmol/L Carbon Dioxide (21-32) mmol/L Anion Gap (3-11) BUN (7-18) mg/dl Creatinine (0.6-1.4) mg/dl Est Cr Clr Drug Dosing ml/min Est GFR ( Amer) Est GFR (Non-Af Amer) BUN/Creatinine Ratio (-20) Glucose 279 H (70-99) mg/dl POC Glucose 230 H 286 H (70-99) mg/dl Calcium (8.5-10.1) mg/dl Phosphorus (2.5-4.9) mg/dl Magnesium (1.8-2.4) mg/dl Beta-Hydroxybutyric Acd (0.2-2.81) mg/dl 03/28/20 03/28/20 03/28/20 Range/Units 20:43 20:40 18:25 Sodium (136-145) mmol/L Potassium (3.5-5.1) mmol/L Chloride (98-107) mmol/L Carbon Dioxide (21-32) mmol/L Anion Gap (3-11) BUN (7-18) mg/dl Creatinine (0.6-1.4) mg/dl Est Cr Clr Drug Dosing ml/min Est GFR ( Amer) Est GFR (Non-Af Amer) BUN/Creatinine Ratio (04-06) Glucose (70-99) mg/dl POC Glucose 345 H* 316 H* 389 H* (70-99) mg/dl Calcium (8.5-10.1) mg/dl Phosphorus (2.5-4.9) mg/dl Magnesium (1.8-2.4) mg/dl Beta-Hydroxybutyric Acd (0.2-2.81) mg/dl 03/28/20 03/28/20 03/28/20 Range/Units 16:40 16:14 16:12 Sodium 134 L (136-145) mmol/L Potassium 4.5 (3.5-5.1) mmol/L Chloride 97 L (98-107) mmol/L Carbon Dioxide 32 (21-32) mmol/L Anion Gap 5.0 (3-11) BUN 70 H (7-18) mg/dl Creatinine 2.60 H (0.6-1.4) mg/dl Est Cr Clr Drug Dosing 48.1 ml/min Est GFR ( Amer) 28.5 Est GFR (Non-Af Amer) 24.6 BUN/Creatinine Ratio 27.0 H (10-20) Glucose 373 H* (70-99) mg/dl POC Glucose 383 H* 381 H* (70-99) mg/dl Calcium 9.0 (8.5-10.1) mg/dl Phosphorus 3.6 (2.5-4.9) mg/dl Magnesium 2.5 H (1.8-2.4) mg/dl Beta-Hydroxybutyric Acd 0.90 (0.2-2.81) mg/dl 03/28/20 03/28/20 Range/Units 11:53 11:52 Sodium (136-145) mmol/L Potassium (3.5-5.1) mmol/L Chloride (98-107) mmol/L Carbon Dioxide (21-32) mmol/L Anion Gap (3-11) BUN (7-18) mg/dl Creatinine (0.6-1.4) mg/dl Est Cr Clr Drug Dosing ml/min Est GFR ( Amer) Est GFR (Non-Af Amer) BUN/Creatinine Ratio (10-20) Glucose (70-99) mg/dl POC Glucose 377 H* 381 H* (70-99) mg/dl Calcium (8.5-10.1) mg/dl Phosphorus (2.5-4.9) mg/dl Magnesium (1.8-2.4) mg/dl Beta-Hydroxybutyric Acd (0.2-2.81) mg/dl Medications Administered Current Inpatient Medications Acetaminophen (Acetaminophen 325 Mg Tab) 325 mg PO Q6H PRN PRN Reason: Mild Pain Stop: 04/23/20 23:49 Last Admin: 03/29/20 09:06 Dose: 325 mg Documented by: Albuterol (Albut/Ipratrop 3mg/0.5mg Neb 3 Ml Vial) 3 ml NEB QIDR CAROL ANN Stop: 04/26/20 06:59 Last Admin: 03/29/20 07:16 Dose: 3 ml Documented by: Albuterol (Albut/Ipratrop 3mg/0.5mg Neb 3 Ml Vial) 3 ml NEB Q2R PRN PRN Reason: wheezing Stop: 04/26/20 10:08 Dextrose (Dextrose 50% 50 Ml Syringe) 25 - 50 ml IV UD PRN; Protocol PRN Reason: Hypoglycemia Protocol Stop: 04/23/20 23:49 Doxycycline Hyclate (Doxycycline Hyclate 100 Mg Cap) 100 mg PO BID [facility] Stop: 04/04/20 20:59 Last Admin: 03/29/20 08:48 Dose: 100 mg Documented by: Fluoxetine HCl (Fluoxetine Hcl 20 Mg Cap) 20 mg PO DAILY CAROL ANN Stop: 04/24/20 08:59 Last Admin: 03/29/20 08:47 Dose: 20 mg Documented by: Fluoxetine HCl (Fluoxetine Hcl 10 Mg Cap) 10 mg PO DAILY CAROL ANN Stop: 04/24/20 08:59 Last Admin: 03/29/20 08:47 Dose: 10 mg Documented by: Fluoxetine HCl (Fluoxetine Hcl 10 Mg Cap) 10 mg PO DAILY [facility] Stop: 04/27/20 09:59 Last Admin: 03/29/20 08:48 Dose: Not Given Documented by: Glucagon (Glucagon For Inj 1 Mg Vial) 1 mg SQ UD PRN; Protocol PRN Reason: Hypoglycemia Protocol Stop: 04/23/20 23:49 Glucose (Glucose 10 Tabs/Tube) 4 - 8 tabs PO UD PRN; Protocol PRN Reason: Hypoglycemia Protocol Stop: 04/23/20 23:49 Glucose (Glucose 40% Gel 15 Gm Tube) 15 - 30 gm PO UD PRN; Protocol PRN Reason: Hypoglycemia Protocol Stop: 04/23/20 23:49 Heparin Sodium (Porcine) (Heparin Sod 5,000 Unit/0.5 Ml Vial) 7,500 units SQ Q8 CAROL ANN Stop: 04/27/20 13:59 Last Admin: 03/29/20 05:51 Dose: 7,500 units Documented by: Hydralazine HCl (Hydralazine Tab 50 Mg Tab) 50 mg PO QID [facility] Stop: 04/24/20 08:59 Last Admin: 03/29/20 08:46 Dose: 50 mg Documented by: Furosemide 100 mg/ Syringe 10 mls @ 4 mls/min IV Q8 CAROL ANN Stop: 04/25/20 13:59 Last Admin: 03/29/20 05:55 Dose: 4 mls/min Documented by: Daptomycin 725 mg/ Syringe 14.5 mls @ 0 mls/min IV Q24H [facility]; Protocol Stop: 04/09/20 13:59 Last Admin: 03/28/20 14:15 Dose: 11 mls/min Documented by: Ceftriaxone Sodium 2,000 mg/ (Dextrose) 70 mls @ 140 mls/hr IV DAILY@1400 [facility]; Protocol Stop: 04/05/20 14:14 Last Infusion: 03/28/20 14:41 Dose: Infused Documented by: Insulin Aspart (Insulin Aspart 100 Units/Ml 3 Ml Pen) 0 units SC [facility] Stop: 04/26/20 22:14 Last Admin: 03/29/20 08:51 Dose: 9 units Documented by: Insulin Glargine (Insulin Glargine Solostar 100 Units/Ml 3 Ml Pen) 40 units SC [facility] Stop: 04/28/20 08:59 Last Admin: 03/29/20 08:49 Dose: 40 units Documented by: Insulin Human NPH (Novolin-N (Nph) Per Unit Charge) 25 units SQ [facility] Stop: 04/28/20 08:59 Last Admin: 03/29/20 08:45 Dose: 25 units Documented by: Lactulose (Lactulose Syrup 30 Gm/45 Ml Udp) 30 gm PO TID [facility] Stop: 04/23/20 23:49 Last Admin: 03/29/20 08:52 Dose: 30 gm Documented by: Levothyroxine Sodium (Levothyroxine Sodium 25 Mcg Tablet) [facility] Stop: 04/27/20 09:59 Last Admin: 03/29/20 07:29 Dose: 25 mcg Documented by: Levothyroxine Sodium (Levothyroxine Sodium 200 Mcg Tablet) 200 mcg PO DAILYBB [facility] Stop: 04/28/20 06:29 Last Admin: 03/29/20 07:30 Dose: 200 mcg Documented by: Metolazone (Metolazone 5 Mg Tablet) 5 mg PO [facility] Stop: 04/25/20 10:29 Last Admin: 03/29/20 08:46 Dose: 5 mg Documented by: Metoprolol Tartrate (Metoprolol Tartrate 25 Mg Tab) 25 mg PO BID [facility] Stop: 04/28/20 08:59 Last Admin: 03/29/20 08:46 Dose: 25 mg Documented by: Miconazole Nitrate (Miconazole Nitrate Powder 43 Gm) 1 appln EXT PRN PRN PRN Reason: Affected Skin Folds Stop: 04/24/20 06:29 Miscellaneous (Carbohydrates For Hypoglycemia ) 15 - 30 gm PO UD PRN PRN Reason: Hypoglycemia Protocol Stop: 04/23/20 23:49 Miscellaneous Information (Daptomycin Consult Active) 1 ea N/A UD PRN PRN Reason: Consult Stop: 04/25/20 13:56 Miscellaneous Information (Pharmacy Glycemic Mgmt Consult) 1 ea N/A UD PRN PRN Reason: Consult Stop: 04/27/20 15:03 Nitroglycerin (Nitroglycerin Sl 0.4 Mg/Tab Tab) 0.4 mg SL UD PRN PRN Reason: Chest Pain Stop: 04/23/20 23:49 Pantoprazole Sodium (Pantoprazole 40 Mg Tab) 40 mg PO BID [facility] Stop: 04/24/20 08:59 Last Admin: 03/29/20 08:50 Dose: 40 mg Documented by: Prednisone (Prednisone 20 Mg Tab) 40 mg PO QAM [facility] Stop: 04/28/20 08:59 Last Admin: 03/29/20 08:46 Dose: 40 mg Documented by:
--- NOTE | 2020-03-29 12:08 | Pharmacy Report ---
Pharmacy Glycemic Short Note 2 - Date of Service March 29, 2020 - Glycemic Short BSG Results (Last 24 hours): 03/28/20 03/28/20 03/28/20 16:12 16:14 16:40 Glucose 373 H* POC Glucose 381 H* 383 H* 03/28/20 03/28/20 03/28/20 18:25 20:40 20:43 Glucose POC Glucose 389 H* 316 H* 345 H* 03/28/20 03/28/20 03/29/20 20:47 21:05 00:10 Glucose 279 H POC Glucose 286 H 230 H 03/29/20 03/29/20 03/29/20 03:58 05:34 07:34 Glucose 149 H POC Glucose 172 H 155 H 03/29/20 11:29 Glucose POC Glucose 159 H OUTPATIENT ANTIDIABETIC REGIMEN: * Lantus 40 units + Novolog * A1c 5.7% ASSESSMENT: * Patient received 128 units of insulin yesterday * 50 of basal * 78 of correctional/prandial * Fasting improved this morning 155 mg/dL- will continue 40 units of lantus * Methylprednisolone switched to PO 40 mg prednisone- will give additional NPH dose with this (slightly less than 0.4 units/kg of lean body weight) * Prandial BSG improved today as steroids have been decreased- parameters may need loosened but will continue for now as within goal range. PLAN FOR INPATIENT GLYCEMIC CONTROL: * Hold outpatient oral diabetes medications * Basal insulin * Lantus 40 units sq qAM * Bolus insulin * NovoLog per scale ACHS or Q6hrs while NPO * Goal Range: Low 140 mg/dL - High 180 mg/dL * Correction Factor: 12 mg/dL/unit * Nutritional / Prandial insulin per carb ratio of 1 unit per 4 grams CHO consumed PLAN FOR DISCHARGE: * Recent A1c indicates excellent outpatient control, would continue current outpatient regimen if patient without significant hypoglycemic events.
[2020-03-29] MEDS: DAPTOmycin 725 MG in SYRINGE 0 ML IV SCH (13:54)
[2020-03-29] MEDS: cefTRIAXone SODIUM 2,000 MG in DEXTROSE 5% 50 ML IV SCH (13:55)
--- NOTE | 2020-03-29 14:56 | Cardiology Progress Note ---
Date of Service March 29, 2020 Assessment & Plan (1) Acute on chronic diastolic heart failure: (2) Acute on chronic respiratory failure with hypoxia and hypercapnia: (3) Acute worsening of stage 3 chronic kidney disease: Continue furosemide 100 mg IV 3 times daily, metolazone 5 mg p.o. daily. Brief episodes of asymptomatic wide-complex tachycardia noted yesterday afternoon that appeared to be SVT with aberrant conduction in setting of left bundle branch block. Metoprolol cautiously increase to 25 twice daily and history of left bundle branch block and first-degree AV block which the patient has tolerated well thus far. Electrolytes are stable. (4) Left bundle branch block: Admission and Anticipated Discharge Date Admission Date: March 24, 2020 Subjective Patient feeling well. On positive pressure ventilation while he naps. Telemetry reveals sinus rhythm with first-degree AV block, no recurrence of the brief episodes of wide-complex tachycardia noted last evening on 03/28/2020. Physical Exam Physical Exam: Temp Pulse Resp BP Pulse Ox 36.3 C L 85 20 119/65 98 03/29/20 10:47 03/29/20 11:18 03/29/20 11:18 03/29/20 10:47 03/29/20 11:18 Cardiac exam limited by body habitus, heart sounds not well auscultated. Lungs clear, trace lower extremity edema. Results & Data ([facility]) Vital Signs (Past 12 Hours) Vital Signs Temp Pulse Pulse Resp BP Pulse Ox 03/29/20 11:18 85 20 98 03/29/20 10:47 36.3 C L 84 20 119/65 96 03/29/20 07:35 36.7 C 95 H 22 134/75 95 03/29/20 07:17 71 21 97 03/29/20 07:16 71 21 97 03/29/20 04:37 37 C 88 20 108/61 96 03/29/20 02:59 83 17 94 Laboratory Results Comprehensive Metabolic Panel 03/28/20 03/28/20 03/29/20 Range/Units 16:40 21:05 05:34 Sodium 134 L 136 (136-145) mmol/L Potassium 4.5 4.8 (3.5-5.1) mmol/L Chloride 97 L 100 (98-107) mmol/L Carbon Dioxide 32 34 H (21-32) mmol/L BUN 70 H 71 H (7-18) mg/dl Creatinine 2.60 H 2.45 H (0.6-1.4) mg/dl Glucose 373 H* 279 H 149 H (70-99) mg/dl Calcium 9.0 8.9 (8.5-10.1) mg/dl Intake and Output 03/28/20 03/29/20 03/29/20 22:59 06:59 14:59 Intake Total 290 / 2270 550 / 2270 Output Total 1075 / 1775 Balance 290 / 495 -525 / 495 Intake: IV 50 / 280 Albumin 25% 50 ml @ 50 mls/hr 50 / 50 IV 1800 ONE Rx#:[id number] Oral 1989 Output: Urine Amount (Catheter) 1075 / 1725 Block/Indwelling 1075 / 1725 Other: Weight 196.5 kg Weight Measurement Method Built in [facility]
--- NOTE | 2020-03-29 20:43 | Nephrology Progress Note ---
Date of Service March 29, 2020 Assessment & Plan (1) Acute worsening of stage 3 chronic kidney disease: Patient with acute kidney injury on CKD. Baseline creatinine around 1.1- 1.2 in November 2019. Creatinine plateau'd past 72 hrs in mid 2's. Potassium is better at 4.5. No indication for dialysis. -Continue Lasix 100 mg IV 3 times daily and recommend metolazone 5 mg daily (latter currently on hold). -daliy bmp -Monitor input output. -ordered FR 1.5L -Avoid contrast unless lifesaving. (2) Acute on chronic respiratory failure with hypoxia and hypercapnia: Likely multifactorial due to COPD and pulmonary edema. Continue nebulizers and steroids. Will continue Lasix to ensure patient is even to net negative as tolerated. Continue oxygen and BiPAP as needed. Admission and Anticipated Discharge Date Admission Date: March 24, 2020 Subjective pt seen and evaluated at approx 1230 this afternoon > on bipap; states breathing still touch and go, still sob; on bipap at eval. some SVT yesterday -cardiology following Review of Systems Review of Systems: All systems reviewed & are unremarkable except as noted in HPI & below Physical Exam Constitutional: well developed and well nourished; no acute distress on bipap Eyes: EOM intact bilaterally ENMT: Ears: no external ear abnormality Nose: no external nose abnormality Mouth: + dry oral mucous membranes Neck: no nuchal rigidity Respiratory: normal respiratory effort and + labored breathing Auscultation: + diminished lung sounds Cardiovascular: Rate/Rhythm: regular rate and regular rhythm Extremities: + edema (1+ pitting edema BL) Gastrointestinal (Abdomen): Inspection/Auscultation: normal bowel sounds Percussion/Palpation: abdomen soft; abdomen nontender Musculoskeletal: Extremities: strength 5/5 throughout Skin: no rashes, warm and dry Neurologic: montoya, fluent speech, no tremor Psychiatric: Orientation: alert and oriented x 3 Genitourinary: huang with some urine Results & Data ([facility]) Vital Signs (Past 12 Hours) Vital Signs Temp Pulse Pulse Pulse Resp BP BP 03/29/20 19:55 36.8 C 91 H 20 115/70 03/29/20 18:38 91 H 24 03/29/20 16:00 93 H 03/29/20 15:37 36.6 C 91 H 22 129/84 03/29/20 14:56 91 H 20 10/12/20 14:55 91 H 20 03/29/20 11:18 85 20 03/29/20 10:47 36.3 C L 84 20 119/65 Pulse Ox 03/29/20 19:55 97 03/29/20 18:38 97 03/29/20 16:00 03/29/20 15:37 96 03/29/20 14:56 97 03/29/20 14:55 97 03/29/20 11:18 98 03/29/20 10:47 96 Laboratory Results 03/28/20 06:43 03/29/20 05:34
[2020-03-30] MEDS: ALBUT/IPRATROP 3MG/0.5MG NEB 3 ML VIAL NEB SCH ×6 (01:10→11:13)
[2020-03-30] MEDS: LEVOTHYROXINE SODIUM 200 MCG TABLET PO SCH (06:00)
[2020-03-30] MEDS: FUROSEMIDE 100 MG in SYRINGE 0 ML IV SCH ×3 (06:00→22:35)
[2020-03-30] MEDS: LEVOTHYROXINE SODIUM 25 MCG TABLET PO SCH (06:00)
[2020-03-30] MEDS: HEPARIN SOD 5,000 UNIT/0.5 ML VIAL SQ SCH ×3 (06:00→22:03)
[2020-03-30 06:39] LABS: BUN Creatinine Ratio 33.7 (10-20); Calcium 9.5 mg/dl (8.5-10.1); Creatinine Clr Calc Pharmacy 54.2 ml/min; Est GFR (African American) 32.7; Est GFR (Non-African American) 28.2; Potassium 4.1 mmol/L (3.5-5.1)
[2020-03-30] MEDS ORDERED: 0.2 MICRON FILTER SET 1 EA IV ONE (08:19)
[2020-03-30] MEDS ORDERED: AMIODARONE / D5W 150 MG/100 ML BAG IV STA (08:19)
[2020-03-30] MEDS ORDERED: STAT IV Infusion **Titration per Protocol STA (08:19)
[2020-03-30] MEDS ORDERED: AMIODARONE IV BOLUS & DRIP IV STA (08:19)
[2020-03-30] MEDS: INSULIN ASPART 100 UNITS/ML 3 ML PEN SC SCH ×3 (08:25→17:35)
[2020-03-30] MEDS: INSULIN GLARGINE SOLOSTAR 100 UNITS/ML 3 ML PEN SC SCH (08:26)
[2020-03-30] MEDS: METOPROLOL TARTRATE 25 MG TAB PO SCH ×2 (08:28→20:50)
[2020-03-30] MEDS: hydrALAZINE TAB 50 MG TAB PO SCH ×4 (08:29→20:49)
[2020-03-30] MEDS ORDERED: AMIODARONE / D5W 360 MG/200 ML BAG IV ONE (08:30)
[2020-03-30 08:51] LABS: Magnesium 2.5 mg/dl (1.8-2.4); Troponin I 0.27 ng/ml (0-0.045)
--- NOTE | 2020-03-30 09:00 | XRay Report ---
XR chest 1V portable CLINICAL HISTORY: shortness of breath, arrhythmia COMPARISON STUDY: 03/25/2020 FINDINGS: The study is somewhat limited from a technical standpoint. The heart appears enlarged. Ther e is a subpulmonic right pleural effusion. There is no lobar consolidation. There is mild central vas cular prominence. There is no overt edema.[ IMPRESSION: 1. Cardiomegaly and mild vascular prominence 2. Subpulmonic right pleural effusion 3. No evidence of lobar consolidation ACT 112: Negative or not required by law. Electronically signed by: Sebastián Gómez M.D. 03/30/2020 8:58 AM
[2020-03-30 09:14] LABS: BUN Creatinine Ratio 31.9 (10-20); Calcium 9.5 mg/dl (8.5-10.1); Creatinine Clr Calc Pharmacy 51.1 ml/min; Est GFR (African American) 30.5; Est GFR (Non-African American) 26.3; Magnesium 2.5 mg/dl (1.8-2.4); Phosphorus 3.5 mg/dl (2.5-4.9); Potassium 3.9 mmol/L (3.5-5.1)
--- NOTE | 2020-03-30 09:28 | Pulmonary Consultation ---
Date of Consultation March 30, 2020 Assessment & Plan (1) Acute on chronic respiratory failure with hypoxia and hypercapnia: --Acute on chronic hypoxic hypercapnic respiratory failure Likely secondary to underlying SAFIA/OHS and noncompliance with BiPAP at home on top of diastolic CHF Continue with diuretics as tolerated to keep negative balance BiPAP nightly and PRN shortness of breath Keep O2 saturation between 90-92% --Right-sided pleural effusion Has been present since more than 6 months Etiology is most likely underlying diastolic CHF Given the super morbid obesity that the patient has thoracentesis will be very risky in this patient Would recommend diuresis. --COPD with active smoking Continue with inhaled bronchodilators Recommend tapering prednisone --SAFIA/OHS in a patient who is super morbidly obese If the patient is noncompliant with his CPAP machine at home he might end up needing a trach --V. tach Etiology is being worked up by cardiology Has been started on amiodarone drip Patient does have underlying prolonged QTC Recommend avoiding QTC prolonging medication Keep magnesium greater than 2, phosphorus greater than 3 and potassium greater than 4 --CKD Nephrology on board Plan: Continue with BiPAP, I increased EPAP to 8. Patient is in no acute distress. Respiratory rate is around 16-18/min. Can transition between BiPAP and high flow. If given high flow would recommend flow to be at least 40-45 L with FiO2 50% with goal saturation 90-92% Continue with diuresis. Patient can be monitored on floor right now with above recommendations. If there is clinical deterioration will take to MICU. I have personally spent 41 minutes of critical care time in the direct management of this patient. This is a life/limb threatening event. This includes time spent evaluating patient, direct bedside care, chart review, placing orders, interpretation of diagnostic studies, discussion with consultants, patient, and family members, as well as other required patient management activities. This time is exclusive of all separately billable procedures, and teaching time and separate from and in addition to any other critical care service time. Please note the above document was generated using voice recognition software. It may contain grammatical, syntax or spelling errors. (2) Acute on chronic diastolic heart failure: (3) Pleural effusion: (4) COPD (chronic obstructive pulmonary disease): (5) SAFIA (obstructive sleep apnea): History of Present Illness Attending Physician: Juan Rodriguez MD History of Present Illness 64-year-old male with past medical history of COPD on home O2, super morbid obesity, SAFIA/OHS not on BiPAP at home, diastolic CHF was admitted to hospital because of worsening shortness of breath. Pulmonary were consulted as patient is having recurrent V. tach especially when he is off BiPAP machine. He is not on continuous pulse ox I am not sure if there is any hypoxic episode associated with it. I did asked the patient as he gets short of breath when he is off of BiPAP, he says he gets mild distress. At the time of examination he is on BiPAP 29/11 30% FiO2 saturating 97%. Respiratory rate around 16-18. Not in any acute distress. Denies any chest pain, no dizziness, no palpitations, no headache, no nausea or vomiting. Patient is morbidly obese and bedbound at home. He does not walk around. Patient also has chronic right-sided pleural effusion which is not significantly changed since at least last 6 months. Social history: Greater than [id number] smoking history still smoking 3 to 4 cigarettes a day, social alcohol, denies any illicit drug use Has 9 cats at home. Allergic to dog. Allergies Allergy/AdvReac Type Severity Reaction Status Date / Time pollen extracts Allergy Mild sneezing/watery Verified 05/26/19 00:14 eyes Home Medications Home Medications Medication Instructions Recorded Confirmed Type atorvastatin 10 mg PO HS 10/24/18 03/24/20 History levothyroxine 25 mcg PO QAM 10/24/18 03/24/20 History levothyroxine 200 mcg PO QAM 10/24/18 03/24/20 History metoprolol succinate 25 mg PO QAM 10/24/18 03/24/20 History pantoprazole 40 mg tablet,delayed 40 mg PO BID 02/11/19 03/24/20 History release gabapentin 100 mg PO TID 04/14/19 03/24/20 History Linzess 145 mcg PO DAILYBB 11/29/19 03/24/20 History albuterol sulfate 2 puff INHALATION QID PRN 11/29/19 03/24/20 History fluoxetine 10 mg PO DAILY 11/29/19 03/24/20 History fluoxetine 20 mg PO DAILY 11/29/19 03/24/20 History furosemide [Lasix] 80 mg PO BID 11/29/19 03/24/20 History hydralazine 50 mg PO QID 11/29/19 03/24/20 History insulin aspart U-100 [Novolog 1 sliding scale dose SUBCUT TID 11/29/19 03/24/20 History U-100 Insulin aspart] Lantus Solostar U-100 Insulin 40 unit SUBCUT HS #0 ml 12/05/19 03/24/20 Rx umeclidinium-vilanterol [Anoro 1 ea INHALATION DAILY #14 ea 12/05/19 03/24/20 Rx Ellipta] Patient History Medical History Anemia Chronic diastolic heart failure COPD (chronic obstructive pulmonary disease) inhalers daily/prn and oxygen 2L n/c Diabetes mellitus, type 2 Elevated troponin I level Graves disease History of gastric ulcer Hyperlipidemia Hypertension Hypothyroidism Hypoxia Left bundle branch block chronic Morbid obesity with BMI of 50.0-59.9, adult Obesity hypoventilation syndrome On home oxygen therapy 2L N/C at all times SAFIA (obstructive sleep apnea) cpap--2L oxygen Surgical History History of angioplasty 2003 @ [facility] [place]--no stents History of colonoscopy History of endoscopic sinus surgery History of esophagogastroduodenoscopy (EGD) History of tooth extraction History of wisdom tooth extraction S/P correction of deviated nasal septum Family History Mother Diabetes Hypertension Brother , dies at 44 yo from [place] Heart disease Other No family history of adverse response to anesthesia Social History Smoking Status: Unknown if ever smoked Tobacco Type: Cigarettes Years Smoked: 60; Cigarettes Per Day: 4; Second Hand Exposure: No; Preferred Language: Faroese Communication Ability: Impaired Communication Ability Comment: mental status Doctor Of Veterinary Medicine Required: No Beliefs That Will Affect Care: None marital status: Single Current Living Situation: Other Current Living Situation Comment: Patient states "with my mommy and daddy." current occupational status: unemployed Feels Safe at Home: Yes Assistive Devices: BiPap and Oxygen - Continuous Review of Systems Review of Systems: All systems reviewed & are unremarkable except as noted in HPI & below Physical Exam Physical Exam: Constitutional: No acute distress HEENT: EOMI, PERRLA, thick neck, Mallampati 4 Respiratory system: Decreased air entry bilaterally, no wheeze, no rhonchi, + crackles bilateral lower lobes CVS: S1-S2 positive, no murmurs or gallops, distant heart sounds Abdomen: Soft, nontender, nondistended, positive bowel sounds x4, obese Extremities: +2 pulses bilaterally radialis/ dorsalis pedis, no cyanosis, +2 pitting edema bilateral lower extremity Neuro: Awake alert oriented x3 Psych: Normal mood and affect G/U: Positive Block Results & Data Results & Data ([facility]) Vital Signs (Past 12 Hours) Vital Signs Temp Pulse Pulse Pulse Resp BP BP 03/30/20 07:34 36.4 C L 94 H 22 109/69 03/30/20 07:33 96 H 03/30/20 07:18 98 H 24 03/30/20 07:12 98 H 24 03/30/20 05:03 98 H 22 03/30/20 05:02 98 H 22 03/30/20 02:57 93 H 24 03/30/20 02:56 93 H 24 03/30/20 01:14 80 19 03/30/20 01:13 90 19 03/29/20 23:51 36.8 C 93 H 19 126/76 03/29/20 23:11 88 20 03/29/20 21:36 88 20 03/29/20 21:34 88 20 Pulse Ox 03/30/20 07:34 97 03/30/20 07:33 03/30/20 07:18 96 03/30/20 07:12 96 03/30/20 05:03 98 03/30/20 05:02 98 03/30/20 02:57 95 03/30/20 02:56 95 03/30/20 01:14 97 03/30/20 01:13 97 03/29/20 23:51 97 03/29/20 23:11 97 03/29/20 21:36 97 03/29/20 21:34 97 03/28/20 06:43 03/30/20 08:39 PG Care Time/CCT Total # of Minutes Spent Total Time Spent with Patient: Total time spent is greater than 50% in coordination of care (as documented) at patient's floor/unit and/or counseling patient: Total Critical Care Time: 41 Coding Level of Care Code None Diagnoses Acute on chronic respiratory failure with hypoxia and hypercapnia J96.21; J96.22 Acute on chronic diastolic heart failure I50.33 Pleural effusion J90 COPD (chronic obstructive pulmonary disease) J44.9 SAFIA (obstructive sleep apnea) G47.33 Time Spent (min) 41
--- NOTE | 2020-03-30 09:43 | Cardiology Progress Note ---
Date of Service March 30, 2020 Assessment & Plan (1) Acute on chronic diastolic heart failure: (2) Acute on chronic respiratory failure with hypoxia and hypercapnia: (3) Acute worsening of stage 3 chronic kidney disease: (4) Left bundle branch block: (5) Obesity hypoventilation syndrome: (6) Paroxysmal ventricular tachycardia: Patient's fluid balance was -2.5 yesterday. Electrolytes normal. Renal function stable. Magnesium level acceptable yesterday, at 2.7. Pat first observed to have episodes of wide complex tachycardia at time of meal when off of Bipap on evening of 03/28/20. Episodes of longer duration, more rapid rate now, and appears ventricular. Seems to be associated with when off Bipap. Amiodarone gtt started in addition to the metoprolol. TTecho ordered. Not obtained yet pending additional stabilization. Images will likely be technically limited related to BMI of 62 and patient upright. High BMI limits cardiac evaluation. Mild Troponin elevation of 0.270 ng /ml in the setting of renal insufficiency. STUART would be helpful in terms of assessing LVEF, however, pt would need to be intubated for airways support. Will add continuous pulse oximetry and try to see if hypoxia exists when off of BiPap and with tachycardia. Consult pulm, Dr Rogers , question if tracheostomy indicated at hypoventilation syndrome , hypoxia could be the driving factor. Continue SQ heparin 7,500 units Q8 for DVT prophylaxis. Admission and Anticipated Discharge Date Admission Date: March 24, 2020 Subjective Patient seen in emergent assessment per RN and Dr Rodriguez's request. At 8:05 while patient was off of Bipap for a meal, pt developed respiratory distress that correlated with episodes of wide complex tachycardia in the range of 260 bpm that appear to be ventricular tachycardia. Review of Systems Review of Systems: All systems reviewed & are unremarkable except as noted in HPI & below Physical Exam Physical Exam: Temp Pulse Resp BP Pulse Ox 36.4 C L 91 H 20 109/69 96 03/30/20 07:34 03/30/20 09:32 03/30/20 09:32 03/30/20 07:34 03/30/20 09:32 Constitutional: chronically ill in appearance however no acute distress back on Bi Pap at time of my assessment Respiratory: normal respiratory effort, lungs clear to auscultation Cardiovascular: difficult to hear heart sounds due to body habitus Gastrointestinal (Abdomen): normal bowel sounds, soft, nontender, no hepatosplenomegaly Neurologic: PERRL, EOMI, accommodation nl, no face palsy, no dysarthria Results & Data ([facility]) Vital Signs (Past 12 Hours) Vital Signs Temp Pulse Pulse Pulse Resp BP BP 03/30/20 07:34 36.4 C L 94 H 22 109/69 03/30/20 07:33 96 H 03/30/20 07:18 98 H 24 03/30/20 07:12 98 H 24 03/30/20 05:03 98 H 22 03/30/20 05:02 98 H 22 03/30/20 02:57 93 H 24 03/30/20 02:56 93 H 24 03/30/20 01:14 80 19 03/30/20 01:13 90 19 03/29/20 23:51 36.8 C 93 H 19 126/76 03/29/20 23:11 88 20 03/29/20 21:36 88 20 03/29/20 21:34 88 20 Pulse Ox 03/30/20 07:34 97 03/30/20 07:33 03/30/20 07:18 96 03/30/20 07:12 96 03/30/20 05:03 98 03/30/20 05:02 98 03/30/20 02:57 95 03/30/20 02:56 95 03/30/20 01:14 97 03/30/20 01:13 97 03/29/20 23:51 97 03/29/20 23:11 97 03/29/20 21:36 97 03/29/20 21:34 97 Laboratory Results Cardiac Enzymes 03/30/20 Range/Units 05:27 Troponin I 0.270 H* (0-0.045) ng/ml Comprehensive Metabolic Panel 03/30/20 03/30/20 Range/Units 05:27 08:39 Sodium 136 135 L (136-145) mmol/L Potassium 4.1 3.9 (3.5-5.1) mmol/L Chloride 97 L 98 (98-107) mmol/L Carbon Dioxide 33 H 33 H (21-32) mmol/L BUN 78 H 78 H (7-18) mg/dl Creatinine 2.32 H 2.46 H (0.6-1.4) mg/dl Glucose 140 H 143 H (70-99) mg/dl Calcium 9.5 9.5 (8.5-10.1) mg/dl Intake and Output 03/29/20 03/30/20 03/30/20 22:59 06:59 14:59 Intake Total 60 / 755 350 / 755 300 / 300 Output Total 2351 1550 / 2352 1250 / 1250 Balance 58 / -1597 -1200 / -1597 -950 / -950 Intake: IV 100 / 100 NEXTERONE / D5W 150 mg In 100 100 / 100 ml @ 600 mls/hr IV NOW STA Rx#: [id number] Oral 60 / 685 350 / 685 200 / 200 Output: Urine Amount (Catheter) 1550 / 2350 1250 / 1250 Block/Indwelling 1550 / 2350 1250 / 1250 # Bowel Movements 2 / 2 Other: Weight 196 kg Weight Measurement Method Built in [facility] Patient Weight 03/31/20 06:59 Weight 196 kg
--- NOTE | 2020-03-30 09:46 | Hospitalist Progress Note ---
Date of Service March 30, 2020 Assessment & Plan (1) Acute on chronic respiratory failure with hypoxia and hypercapnia: (2) Acute on chronic diastolic heart failure: (3) Acute metabolic encephalopathy: (4) UTI (urinary tract infection): (5) Acute worsening of stage 3 chronic kidney disease: (6) Diabetes mellitus, type 2: (7) Anemia: (8) SAFIA (obstructive sleep apnea): (9) Obesity hypoventilation syndrome: Encephalopathy Multifactorial : Acute on chronic hypoxemic, hypercapnic respiratory failure secondary to decompensated heart failure/COPD exacerbation, hx OHS ELVI possible Cardiorenal syndrome Complicated UTI, no sepsis Hyperammonemia, possible acute hepatic encephalopathy, possible chronic liver disease given fatty liver findings on abdominal ultrasound from 2000 Hypoglycemia, hx DM2 insulin requiring, reasonable control as of recent outpatient hemoglobin A1c of 7.22 November 2019 Gram positive bacteremia -possible contaminant, however for now will cover with IV antibiotics and will closely monitor, repeat blood cultures, repeat blood cultures negative Continue BiPAP -mental status much improved as of March 26 evening ELVI with oliguria-worsening renal function, despite IV diuretics Lasix-albumin given kidney dysfunction, Nephrology consulted, patient likely has ATN from hypoxia, hypercapnia in the setting of respiratory failure CT chest/abd/pelvis - obtained to better evaluate fluid status Per nephrology - increased dose IV Lasix to 100 mg IV every 8 hours and metolazone 5 mg daily, continue Overall prognosis of the patient is quite poor Strict I/Os, daily weights, CHF education, fluid restriction Cardiology consult RE CHF - continue diuretic therapy per nephrology, continue BiPAP Monitor renal function with diuretic Rx Doxycycline, nebs, prednisone course for COPD exacerbation Follow urine cultures, IV Cefepime for complicated UTI Daptomycin added for gram posit. bacteremia - possibly contaminant, will d/c dapto if other blood cltx negat. Lactulose for possible hepatic encephalopathy, liver ultrasound rule out chronic liver disease, may need GI consultation (10) Hypertension: BP normal/on lower side Wide-complex tachycardia -Asymptomatic episodes, on March 28, PM and again today, March 30 -Given baseline LBBB, difficult to distinguish between VT and SVT or AFL with aberrancy -Stat potassium and mag levels ordered, normal -Discussed with cardiology, switched from metoprolol succinate to tartrate 25 twice daily -We will try to avoid extra fluid -On March 30, patient more symptomatic, complaining of shortness of breath when off bipap and eating -Review of telemetry concerning for V. tach, cardiology consulted, amiodarone started, potassium and mag normal -Chest x-ray ordered, echocardiogram ordered -ICU consultation obtained given arrhythmia may be secondary to hypoxia, patient has a large pleural effusion, possibly would benefit also from trach given hypoventilation syndrome chronic LBBB hyperlipidemia on statin Rx chronic anemia, hemoglobin at baseline past tobacco abuse DM type 2 -glycemic pharmacist involved Functional disability (patient's brother finding it more difficult to care for the patient at home as per patient niece). PT OT eval (11) Hypothyroidism: euthyroid as of current TSH (12) DVT prophylaxis: Heparin subcu Full code as per patient's niece/POA (Ms. Selam Cadet), she can be contacted at . [place] updated over the phone. Discussed with her patient's poor prognosis, she states that she already discussed this with family and they are aware that if pt's medical condition does not improve that he may need hospice. I discussed with her CODE STATUS however she states this has been unclear. Patient himself most recently wanted to be full code (in the past was DNR ) and patient also confirmed this with me today - full code. Admission and Anticipated Discharge Date Admission Date: March 24, 2020 Subjective Notified by nursing staff that patient again had a wide complex tachycardia this morning/ Vtach, also more frequent. Patient was off BiPAP, having breakfast. At my evaluation, patient does feel short of breath, and so was made n.p.o., and plan to place him back on BiPAP. Stat blood work ordered for potassium and magnesium levels. This AM labs prior to his episode, unremarkable. Stat Chest x-ray ordered. Cardiology also notified, plan to start amiodarone and obtain echocardiogram. ICU notified, patient will be evaluated by them as well. Contacted patient's niece Virginia this AM, his POA, and updated. Urine output seems to be improved today. Clear light yellow urine noted in Block bag. Review of Systems Review of Systems: All systems reviewed & are unremarkable except as noted in HPI & below Constitutional: no fever and no chills Respiratory: + dyspnea (when off bipap) Cardiovascular: no chest pain and no palpitations Gastrointestinal: no abdominal pain, no nausea and no vomiting Physical Exam 2 Physical Exam: Constitutional: Morbidly obese male, on bipap, alert and answers most questions appropriately (mental status much improved), vitals as above, NAD Head: Normocephalic, Atraumatic Eyes: PERRL, EOMI, conjunctivae normal, anicteric sclerae ENMT: external ear and nose normal, oropharynx normal Neck: trachea midline, no thyromegaly normal visual inspection Respiratory: normal respiratory effort, decreased aeration throughout, poor inspiratory effort, positive mild rhonchi, basilar crackles, mild wheezes. Physical exam difficult d/t body habitus. Normal insp/exp effort, no accessory muscle use Cardiovascular: Distant heart sounds, RRR, no murmur, bilateral lower extremity chronic venous stasis changes with nodular lymphedema Chest: normal inspection of chest Abdomen: Obese abdomen, large pannus, soft, nontender, unable to appreciate hepatosplenomegaly secondary to obesity Musculoskeletal: no cyanosis or clubbing Skin: warm and dry Neurologic: PERRL, EOMI, no face palsy, speech is slow,moves all extremities Psychiatric: A+Ox3, euthymic affect : Block catheter with light yellow urine Results & Data Results & Data ([facility]) Vital Signs (Past 12 Hours) Vital Signs Temp Pulse Pulse Pulse Resp BP BP 03/30/20 09:32 91 H 20 03/30/20 07:34 36.4 C L 94 H 22 109/69 03/30/20 07:33 96 H 03/30/20 07:18 98 H 24 03/30/20 07:12 98 H 24 03/30/20 05:03 98 H 22 03/30/20 05:02 98 H 22 03/30/20 02:57 93 H 24 03/30/20 02:56 93 H 24 03/30/20 01:14 80 19 03/30/20 01:13 90 19 03/29/20 23:51 36.8 C 93 H 19 126/76 03/29/20 23:11 88 20 Pulse Ox 03/30/20 09:32 96 03/30/20 07:34 97 03/30/20 07:33 03/30/20 07:18 96 03/30/20 07:12 96 03/30/20 05:03 98 03/30/20 05:02 98 03/30/20 02:57 95 03/30/20 02:56 95 03/30/20 01:14 97 03/30/20 01:13 97 03/29/20 23:51 97 03/29/20 23:11 97 Laboratory Results 03/30/20 03/30/20 03/30/20 Range/Units 08:39 07:32 05:27 Sodium 135 L (136-145) mmol/L Potassium 3.9 (3.5-5.1) mmol/L Chloride 98 (98-107) mmol/L Carbon Dioxide 33 H (21-32) mmol/L Anion Gap 4.0 (3-11) BUN 78 H (7-18) mg/dl Creatinine 2.46 H (0.6-1.4) mg/dl Est Cr Clr Drug Dosing 51.1 ml/min Est GFR ( Amer) 30.5 Est GFR (Non-Af Amer) 26.3 BUN/Creatinine Ratio 31.9 H (10-20) Glucose 143 H (70-99) mg/dl POC Glucose 141 H (70-99) mg/dl Calcium 9.5 (8.5-10.1) mg/dl Phosphorus 3.5 (2.5-4.9) mg/dl Magnesium 2.5 H 2.5 H (1.8-2.4) mg/dl Troponin I 0.270 H* (0-0.045) ng/ml Specimen Hemolysis 03/30/20 03/29/20 03/29/20 Range/Units 05:27 20:30 16:31 Sodium 136 (136-145) mmol/L Potassium 4.1 (3.5-5.1) mmol/L Chloride 97 L (98-107) mmol/L Carbon Dioxide 33 H (21-32) mmol/L Anion Gap 5.0 (3-11) BUN 78 H (7-18) mg/dl Creatinine 2.32 H (0.6-1.4) mg/dl Est Cr Clr Drug Dosing 54.2 ml/min Est GFR ( Amer) 32.7 Est GFR (Non-Af Amer) 28.2 BUN/Creatinine Ratio 33.7 H (10-20) Glucose 140 H (70-99) mg/dl POC Glucose 158 H 149 H (70-99) mg/dl Calcium 9.5 (8.5-10.1) mg/dl Phosphorus (2.5-4.9) mg/dl Magnesium (1.8-2.4) mg/dl Troponin I (0-0.045) ng/ml Specimen Hemolysis 03/29/20 Range/Units 11:29 Sodium (136-145) mmol/L Potassium (3.5-5.1) mmol/L Chloride (98-107) mmol/L Carbon Dioxide (21-32) mmol/L Anion Gap (3-11) BUN (7-18) mg/dl Creatinine (0.6-1.4) mg/dl Est Cr Clr Drug Dosing ml/min Est GFR ( Amer) Est GFR (Non-Af Amer) BUN/Creatinine Ratio (-20) Glucose (70-99) mg/dl POC Glucose 159 H (70-99) mg/dl Calcium (8.5-10.1) mg/dl Phosphorus (2.5-4.9) mg/dl Magnesium (1.8-2.4) mg/dl Troponin I (0-0.045) ng/ml Specimen Hemolysis Medications Administered Current Inpatient Medications Acetaminophen (Acetaminophen 325 Mg Tab) 325 mg PO Q6H PRN PRN Reason: Mild Pain Stop: 04/23/20 23:49 Last Admin: 03/29/20 09:06 Dose: 325 mg Documented by: Albuterol (Albut/Ipratrop 3mg/0.5mg Neb 3 Ml Vial) 3 ml NEB Q2R CAROL ANN Stop: 04/28/20 14:59 Last Admin: 03/30/20 09:31 Dose: 3 ml Documented by: Dextrose (Dextrose 50% 50 Ml Syringe) 25 - 50 ml IV UD PRN; Protocol PRN Reason: Hypoglycemia Protocol Stop: 04/23/20 23:49 Doxycycline Hyclate (Doxycycline Hyclate 100 Mg Cap) 100 mg PO BID CAROL ANN Stop: 04/04/20 20:59 Last Admin: 03/29/20 20:53 Dose: 100 mg Documented by: Fluoxetine HCl (Fluoxetine Hcl 20 Mg Cap) 20 mg PO DAILY CAROL ANN Stop: 04/24/20 08:59 Last Admin: 03/29/20 08:47 Dose: 20 mg Documented by: Fluoxetine HCl (Fluoxetine Hcl 10 Mg Cap) 10 mg PO DAILY CAROL ANN Stop: 04/24/20 08:59 Last Admin: 03/29/20 08:47 Dose: 10 mg Documented by: Glucagon (Glucagon For Inj 1 Mg Vial) 1 mg SQ UD PRN; Protocol PRN Reason: Hypoglycemia Protocol Stop: 04/23/20 23:49 Glucose (Glucose 10 Tabs/Tube) 4 - 8 tabs PO UD PRN; Protocol PRN Reason: Hypoglycemia Protocol Stop: 04/23/20 23:49 Glucose (Glucose 40% Gel 15 Gm Tube) 15 - 30 gm PO UD PRN; Protocol PRN Reason: Hypoglycemia Protocol Stop: 04/23/20 23:49 Heparin Sodium (Porcine) (Heparin Sod 5,000 Unit/0.5 Ml Vial) 7,500 units SQ Q8 CAROL ANN Stop: 04/27/20 13:59 Last Admin: 03/30/20 06:00 Dose: 10,000 units Documented by: Hydralazine HCl (Hydralazine Tab 50 Mg Tab) 50 mg PO QID [facility] Stop: 04/24/20 08:59 Last Admin: 03/30/20 08:29 Dose: 50 mg Documented by: Furosemide 100 mg/ Syringe 10 mls @ 4 mls/min IV Q8 CAROL ANN Stop: 04/25/20 13:59 Last Admin: 03/30/20 06:00 Dose: 4 mls/min Documented by: Ceftriaxone Sodium 2,000 mg/ (Dextrose) 70 mls @ 140 mls/hr IV DAILY@1400 CAROL ANN; Protocol Stop: 04/05/20 14:14 Last Infusion: 03/29/20 14:30 Dose: Infused Documented by: Amiodarone HCl/Dextrose (Nexterone / D5w) 360 mg in 200 mls @ 33.333 mls/hr IV TODAY@0830 ONE Stop: 03/30/20 14:29 Last Admin: 03/30/20 08:50 Dose: 33.3 mls/hr Documented by: Amiodarone HCl/Dextrose (Nexterone / D5w) 360 mg in 200 mls @ 16.667 mls/hr IV .Q12H [facility] Stop: 04/29/20 14:29 Insulin Aspart (Insulin Aspart 100 Units/Ml 3 Ml Pen) 0 units SC ACHS [facility] Stop: 04/26/20 22:14 Last Admin: 03/30/20 08:25 Dose: 7 units Documented by: Insulin Glargine (Insulin Glargine Solostar 100 Units/Ml 3 Ml Pen) 40 units SC QAM [facility] Stop: 04/28/20 08:59 Last Admin: 03/30/20 08:26 Dose: 40 units Documented by: Insulin Human NPH (Novolin-N (Nph) Per Unit Charge) 25 units SQ [facility] Stop: 04/28/20 08:59 Last Admin: 03/29/20 08:45 Dose: 25 units Documented by: Lactulose (Lactulose Syrup 30 Gm/45 Ml Udp) 30 gm PO TID [facility] Stop: 04/23/20 23:49 Last Admin: 03/29/20 20:51 Dose: 30 gm Documented by: Levothyroxine Sodium (Levothyroxine Sodium 25 Mcg Tablet) [facility] Stop: 04/27/20 09:59 Last Admin: 03/30/20 06:00 Dose: 25 mcg Documented by: Levothyroxine Sodium (Levothyroxine Sodium 200 Mcg Tablet) [facility] Stop: 04/28/20 06:29 Last Admin: 03/30/20 06:00 Dose: 200 mcg Documented by: Metolazone (Metolazone 5 Mg Tablet) 5 mg PO [facility] Stop: 04/25/20 10:29 Last Admin: 03/29/20 08:46 Dose: 5 mg Documented by: Metoprolol Tartrate (Metoprolol Tartrate 25 Mg Tab) 25 mg PO BID [facility] Stop: 04/28/20 08:59 Last Admin: 03/30/20 08:28 Dose: 25 mg Documented by: Miconazole Nitrate (Miconazole Nitrate Powder 43 Gm) 1 appln EXT PRN PRN PRN Reason: Affected Skin Folds Stop: 04/24/20 06:29 Miscellaneous (Carbohydrates For Hypoglycemia ) 15 - 30 gm PO UD PRN PRN Reason: Hypoglycemia Protocol Stop: 04/23/20 23:49 Miscellaneous Information (Pharmacy Glycemic Mgmt Consult) 1 ea N/A UD PRN PRN Reason: Consult Stop: 04/27/20 15:03 Nitroglycerin (Nitroglycerin Sl 0.4 Mg/Tab Tab) 0.4 mg SL UD PRN PRN Reason: Chest Pain Stop: 04/23/20 23:49 Pantoprazole Sodium (Pantoprazole 40 Mg Tab) 40 mg PO BID [facility] Stop: 04/24/20 08:59 Last Admin: 03/29/20 20:52 Dose: 40 mg Documented by: Prednisone (Prednisone 20 Mg Tab) 40 mg PO [facility] Stop: 04/28/20 08:59 Last Admin: 03/29/20 08:46 Dose: 40 mg Documented by:
[2020-03-30] MEDS: NovoLIN-N (NPH) PER UNIT CHARGE SQ SCH (11:29)
[2020-03-30] MEDS: FLUoxetine HCL 20 MG CAP PO SCH (11:31)
[2020-03-30] MEDS: predniSONE 20 MG TAB PO SCH (11:32)
[2020-03-30] MEDS: FLUoxetine HCL 10 MG CAP PO SCH (11:32)
[2020-03-30] MEDS: metOLazone 5 MG TABLET PO SCH (11:33)
[2020-03-30] MEDS: PANTOprazole 40 MG TAB PO SCH ×2 (11:33→20:50)
[2020-03-30] MEDS: DOXYCYCLINE HYCLATE 100 MG CAP PO SCH ×2 (11:33→20:50)
[2020-03-30] MEDS: LACTULOSE SYRUP 30 GM/45 ML UDP PO SCH ×3 (11:34→20:50)
[2020-03-30] MEDS ORDERED: POTASSIUM CHLORIDE 20 MEQ TABCR PO ONE (12:00)
[2020-03-30] MEDS ORDERED: PERFLUTREN LIPID MICROSPHERE (DEFINITY) IV ONE (12:16)
[2020-03-30] MEDS ORDERED: ALBUT/IPRATROP 3MG/0.5MG NEB 3 ML VIAL NEB PRN (12:35)
[2020-03-30] MEDS: AMIODARONE / D5W 360 MG/200 ML BAG IV SCH (14:42)
[2020-03-30] MEDS: cefTRIAXone SODIUM 2,000 MG in DEXTROSE 5% 50 ML IV SCH (14:44)
--- NOTE | 2020-03-30 15:05 | Pharmacy Report ---
Pharmacy Glycemic Short Note 2 - Date of Service March 30, 2020 - Glycemic Short BSG Results (Last 24 hours): 03/29/20 03/29/20 03/30/20 16:31 20:30 05:27 Glucose 140 H POC Glucose 149 H 158 H 03/30/20 03/30/20 03/30/20 07:32 08:39 11:19 Glucose 143 H POC Glucose 141 H 188 H OUTPATIENT ANTIDIABETIC REGIMEN: * Lantus 40 units + Novolog * A1c 5.7% ASSESSMENT: * Patient received total 83 units of insulin yesterday: 65 units basal + 18 units of bolus. * 65 units of basal included 40 units of Lantus and 25 units of NPH to correct steroid induced hyperglycemic caused by Prednisone 40 mg daily. * Patient started on Amiodarone drip this afternoon. * He was made NPO this morning. Since basal Lantus and NPH were given by then, the Novolog CF was loosened to prevent hypoglycemia. PLAN FOR INPATIENT GLYCEMIC CONTROL: * Basal insulin * Lantus 40 units sq qAM * Bolus insulin: loosened CF * NovoLog per scale ACHS or Q6hrs while NPO * Goal Range: Low 110 mg/dL - High 140 mg/dL * Correction Factor: 15 mg/dL/unit * Nutritional / Prandial insulin per carb ratio of 1 unit per 4 grams CHO consumed PLAN FOR DISCHARGE: * Recent A1c indicates excellent outpatient control, would continue current outpatient regimen if patient without significant hypoglycemic events.
[2020-03-30 17:00] LABS: BUN Creatinine Ratio 34.4 (10-20); Calcium 9.6 mg/dl (8.5-10.1); Est GFR (African American) 31.9; Est GFR (Non-African American) 27.5; Magnesium 2.4 mg/dl (1.8-2.4)
[2020-03-30 17:01] LABS: Phosphorus 3.4 mg/dl (2.5-4.9)
[2020-03-30] MEDS ORDERED: Nursing to Pharmacy Communication SCH (18:00)
--- NOTE | 2020-03-30 20:54 | Nephrology Progress Note ---
Date of Service March 30, 2020 Assessment & Plan (1) Acute worsening of stage 3 chronic kidney disease: Patient with stage 2 acute kidney injury on CKD. Baseline creatinine around 1.1-1.2 in November 2019. Creatinine plateau'd since 03/26 in mid . chemistries acceptable for now. No indication for dialysis. -Continue Lasix 100 mg IV 3 times daily and recommend metolazone 5 mg daily -daliy bmp -Monitor input output. -cont FR 1.5L -Avoid contrast unless lifesaving. (2) Acute on chronic respiratory failure with hypoxia and hypercapnia: Likely multifactorial due to COPD and pulmonary edema. Continue nebulizers and steroids. Will continue Lasix to ensure patient is even to net negative as tolerated. Continue oxygen and BiPAP as needed. (3) Paroxysmal ventricular tachycardia: challenging> provoked by stopping bipap even briefly and w/ few good management options; cardiology following closely Present on Admission?: Yes Admission and Anticipated Discharge Date Admission Date: March 24, 2020 Subjective seen on rounds at 1030 AM approx; care coordinated w/ cardiology and primary service; noted to have longer/faster and ventricular tachycardia particularly when off bipap even briefly; started on amio gtt; pt hungry; cold; no other concerns at my eval apart from being tired of being on bipap; 2.2L negative so far Review of Systems Review of Systems: All systems reviewed & are unremarkable except as noted in HPI & below Physical Exam Constitutional: well developed and well nourished; no acute distress Eyes: EOM intact bilaterally ENMT: Ears: no external ear abnormality Nose: no external nose abnormality Mouth: + dry oral mucous membranes Neck: no nuchal rigidity Respiratory: normal respiratory effort and + labored breathing Auscultation: + diminished lung sounds Cardiovascular: Rate/Rhythm: regular rate and regular rhythm Extremities: + edema (trace pitting edema BL) Gastrointestinal (Abdomen): Inspection/Auscultation: normal bowel sounds Percussion/Palpation: abdomen soft; abdomen nontender Musculoskeletal: Extremities: strength 5/5 throughout Skin: no rashes, warm and dry Neurologic: montoya, fluent speech, no tremor Psychiatric: Orientation: alert and oriented x 3 Results & Data ([facility]) Vital Signs (Past 12 Hours) Vital Signs Temp Pulse Pulse Pulse Resp BP Pulse Ox 03/30/20 20:12 36.6 C 91 H 18 137/71 95 03/30/20 19:13 90 22 93 03/30/20 18:46 81 03/30/20 15:48 36.9 C 89 16 120/67 95 03/30/20 12:15 03/30/20 12:00 03/30/20 11:51 36.8 C 78 22 115/68 03/30/20 11:50 03/30/20 11:35 03/30/20 11:14 85 21 95 03/30/20 11:13 86 21 95 03/30/20 09:32 91 H 20 96 03/30/20 09:26 Pulse Ox 03/30/20 20:12 03/30/20 19:13 03/30/20 18:46 03/30/20 15:48 03/30/20 12:15 96 03/30/20 12:00 96 03/30/20 11:51 03/30/20 11:50 96 03/30/20 11:35 95 03/30/20 11:14 03/30/20 11:13 03/30/20 09:32 03/30/20 09:26 96 Laboratory Results 03/28/20 06:43 03/30/20 16:04
[2020-03-31] MEDS: INSULIN ASPART 100 UNITS/ML 3 ML PEN SC SCH ×5 (00:14→21:04)
[2020-03-31] MEDS: AMIODARONE / D5W 360 MG/200 ML BAG IV SCH ×3 (02:04→22:44)
[2020-03-31] MEDS: LEVOTHYROXINE SODIUM 25 MCG TABLET PO SCH (05:18)
[2020-03-31] MEDS: LEVOTHYROXINE SODIUM 200 MCG TABLET PO SCH (05:18)
[2020-03-31] MEDS: FUROSEMIDE 100 MG in SYRINGE 0 ML IV SCH ×3 (05:18→21:41)
[2020-03-31] MEDS: HEPARIN SOD 5,000 UNIT/0.5 ML VIAL SQ SCH (05:19)
[2020-03-31 06:23] LABS: Hematocrit (blood only) 30.9 % (42-52); Hemoglobin 9.3 g/dL (14.0-18.0); Mean Corpuscular Hemoglobin 26.4 pg (25-34); Mean Corpuscular Hgb Conc 30.1 g/dL (32-36); Mean Corpuscular Volume 87.8 fL (80-100); Mean Platelet Volume 9.8 fL (7.4-10.4); Platelet Count 136 K/uL (130-400); RDW Coefficient of Variation 17.6 % (11.5-14.5); RDW Standard Deviation 56.2 fL (36.4-46.3); Red Blood Count 3.52 M/uL (4.7-6.1); White Blood Count 3.86 K/uL (4.8-10.8)
[2020-03-31 07:17] LABS: BUN Creatinine Ratio 34.1 (10-20); Calcium 9.1 mg/dl (8.5-10.1); Creatinine Clr Calc Pharmacy 53.6 ml/min; Est GFR (African American) 32.9; Est GFR (Non-African American) 28.4; Magnesium 2.7 mg/dl (1.8-2.4); Phosphorus 3.5 mg/dl (2.5-4.9); Potassium 3.8 mmol/L (3.5-5.1)
--- NOTE | 2020-03-31 07:50 | Nephrology Progress Note ---
Date of Service March 31, 2020 Assessment & Plan (1) Acute worsening of stage 3 chronic kidney disease: Patient with stage 2 acute kidney injury on CKD. Baseline creatinine around 1.1-1.2 in November 2019. Creatinine plateau'd since 03/26 in mid but very slowly drifting down. chemistries acceptable for now. No indication for dialysis. -Continue Lasix 100 mg IV 3 times daily and recommend metolazone 5 mg daily -daliy bmp -Monitor input output. -cont FR 1.5L -Avoid contrast unless lifesaving. (2) Acute on chronic respiratory failure with hypoxia and hypercapnia: Likely multifactorial due to COPD and pulmonary edema. Continue nebulizers and steroids. Will continue Lasix to ensure patient is even to net negative as tolerated-this is approach for managing effusion since thoracentesis not an option clinically. Continue oxygen and BiPAP. (3) Paroxysmal ventricular tachycardia: challenging> provoked by stopping bipap even briefly and w/ few good management options; cardiology following closely Admission and Anticipated Discharge Date Admission Date: March 24, 2020 Subjective pulmonary evaluated pt yesterday and adjusted bipap/following as is cardiology. pt without complaints this am; ROS limited by his fatigue however; 1.6 L negative yesterday and 2.7 L negative so far today Review of Systems Review of Systems: All systems reviewed & are unremarkable except as noted in HPI & below limited by pt willingness to participate in ros in early am Physical Exam Constitutional: well developed and well nourished; no acute distress resting comfortably in bed Eyes: EOM intact bilaterally ENMT: Ears: no external ear abnormality Nose: no external nose abnormality Mouth: + dry oral mucous membranes Neck: no nuchal rigidity Respiratory: normal respiratory effort and + labored breathing Auscultation: + diminished lung sounds Cardiovascular: Rate/Rhythm: regular rate and regular rhythm Extremities: + edema (trace edema BL) Gastrointestinal (Abdomen): Inspection/Auscultation: normal bowel sounds Percussion/Palpation: abdomen soft; abdomen nontender Musculoskeletal: Extremities: strength 5/5 throughout Skin: no rashes, warm and dry Results & Data ([facility]) Vital Signs (Past 12 Hours) Vital Signs Temp Pulse Pulse Resp BP BP Pulse Ox 03/31/20 07:09 76 18 96 03/31/20 02:53 36.3 C L 73 18 120/76 98 03/31/20 02:25 76 20 97 10/14/20 00:35 75 03/30/20 23:17 36.8 C 76 19 147/75 H 97 03/30/20 22:10 86 26 H 97 03/30/20 20:12 36.6 C 91 H 18 137/71 95 Laboratory Results 03/31/20 05:18 03/31/20 05:18 Diagnostic Findings TTE reviewed
[2020-03-31] MEDS ORDERED: NovoLIN-N (NPH) PER UNIT CHARGE SQ ONE (09:00)
[2020-03-31] MEDS: METOPROLOL TARTRATE 25 MG TAB PO SCH ×2 (09:07→21:03)
[2020-03-31] MEDS: hydrALAZINE TAB 50 MG TAB PO SCH ×4 (09:07→21:02)
[2020-03-31] MEDS: predniSONE 20 MG TAB PO SCH (09:08)
[2020-03-31] MEDS: metOLazone 5 MG TABLET PO SCH (09:08)
[2020-03-31] MEDS: FLUoxetine HCL 10 MG CAP PO SCH (09:08)
[2020-03-31] MEDS: FLUoxetine HCL 20 MG CAP PO SCH (09:08)
[2020-03-31] MEDS: INSULIN GLARGINE SOLOSTAR 100 UNITS/ML 3 ML PEN SC SCH (09:08)
[2020-03-31] MEDS: PANTOprazole 40 MG TAB PO SCH ×2 (09:09→21:04)
[2020-03-31] MEDS: LACTULOSE SYRUP 30 GM/45 ML UDP PO SCH ×3 (09:09→21:06)
--- NOTE | 2020-03-31 09:30 | Electrocardiogram Report ---
Test Reason : Blood Pressure : / mmHG Vent. Rate : 066 BPM Atrial Rate : 035 BPM P-R Int : 000 ms QRS Dur : 190 ms QT Int : 476 ms P-R-T Axes : 000 -56 123 degrees QTc Int : 499 ms Probable Sinus rhythm with frequent Premature ventricular complexes Left axis deviation Non-specific intra-ventricular conduction block Low voltage QRS Abnormal ECG When compared with ECG of 24-MAR-2020 19:00, Premature ventricular complexes now present Confirmed by Cassius De La Paz ([id number]) on 03/31/2020 9:29:55 AM Referred By: REFERRED SELF Confirmed By:Cassius De La Paz
--- NOTE | 2020-03-31 09:34 | Electrocardiogram Report ---
Test Reason : Blood Pressure : / mmHG Vent. Rate : 070 BPM Atrial Rate : 073 BPM P-R Int : 000 ms QRS Dur : 198 ms QT Int : 484 ms P-R-T Axes : 000 -50 131 degrees QTc Int : 522 ms Possible Atrial flutter with variable A-V block with premature ventricular or aberrantly conducted co mplexes Left axis deviation Non-specific intra-ventricular conduction block Possible Lateral infarct , age undetermined Abnormal ECG When compared with ECG of 31-MAR-2020 09:01, (unconfirmed) No significant change Confirmed by Cassius De La Paz ([id number]) on 03/31/2020 9:33:46 AM Referred By: REFERRED SELF Confirmed By:Cassius De La Paz
--- NOTE | 2020-03-31 09:34 | Electrocardiogram Report ---
Test Reason : Blood Pressure : / mmHG Vent. Rate : 069 BPM Atrial Rate : 076 BPM P-R Int : 000 ms QRS Dur : 162 ms QT Int : 476 ms P-R-T Axes : 000 -59 130 degrees QTc Int : 510 ms Possible Atrial flutter with variable A-V block with premature ventricular or aberrantly conducted co mplexes Left axis deviation Non-specific intra-ventricular conduction block Possible Lateral infarct (cited on or before 31-MAR-2020) Abnormal ECG When compared with ECG of 31-MAR-2020 09:02, (unconfirmed) No significant change Confirmed by Cassius De La Paz ([id number]) on 03/31/2020 9:34:28 AM Referred By: REFERRED SELF Confirmed By:Cassius De La Paz
--- NOTE | 2020-03-31 09:36 | Electrocardiogram Report ---
Test Reason : Blood Pressure : / mmHG Vent. Rate : 073 BPM Atrial Rate : 080 BPM P-R Int : 000 ms QRS Dur : 162 ms QT Int : 478 ms P-R-T Axes : 000 -61 147 degrees QTc Int : 526 ms Possible Atrial flutter with variable A-V block with premature ventricular or aberrantly conducted co mplexes Left axis deviation Non-specific intra-ventricular conduction block Possible Lateral infarct (cited on or before 31-MAR-2020) Abnormal ECG When compared with ECG of 31-MAR-2020 09:02, (unconfirmed) No significant change Confirmed by Cassius De La Paz ([id number]) on 03/31/2020 9:35:48 AM Referred By: REFERRED SELF Confirmed By:Cassius De La Paz
[2020-03-31] MEDS: DOXYCYCLINE HYCLATE 100 MG CAP PO SCH ×2 (10:38→21:05)
--- NOTE | 2020-03-31 11:02 | Cardiology Progress Note ---
Date of Service March 31, 2020 Assessment & Plan (1) Atypical atrial flutter: (2) Acute on chronic diastolic heart failure: (3) Acute on chronic respiratory failure with hypoxia and hypercapnia: (4) Obesity hypoventilation syndrome: (5) Left bundle branch block: Continue current diuretic therapy, furosemide 100 mg IV 3 times daily, metolazone 5 mg daily. Technically limited echocardiogram performed 03/30/2020, with noted right ventricular chamber dilatation and RV hypokinesis, with RV chamber size greater than the LV chamber size. Amiodarone initially started on 03/30/2020 due to concerns of wide-complex tachycardia, possible ventricular tachycardia. In retrospect, I think this could be atrial flutter with aberrant conduction, given findings of atrial flutter on EKG and telemetry today. In looking back, atrial flutter could very well been present dating back to the previous EKG on 03/24/2020 which was technically limited due to low baseline amplitude. Although treatment with amiodarone does come with the risk of acute conversion and patient who could have left atrial appendage thrombus, I think the medication benefits outweigh the risks at present due to the need for rate control. Continue metoprolol. Subcutaneous heparin discontinued, in favor of unfractioned heparin infusion for stroke prophylaxis. Patient of course is at risk for having developed lower extremity DVT or pulmonary embolism given risk factor of stasis. He has been on subcutaneous heparin, previously 5000 units every 8 hours, and more recently 7500 units, but given his body habitus and long-term stasis, his risk is still high, but I am going to proceed with a lower extremity venous duplex to exclude DVT. He is not a candidate for CT angiogram due to renal insufficiency, and I feel that he ventilation/perfusion scan would be nondiagnostic as the ventilation portion of the test cannot be performed due to COVID-19 restrictions, and I feel the perfusion would likely be indeterminate given his body habitus. Will resume his diet. Admission and Anticipated Discharge Date Admission Date: March 24, 2020 Subjective Patient seen in follow-up. This morning on telemetry, atrial activity noted consistent with atrial fib versus atrial flutter. QRS duration is now 180 ms, compared to 160 ms back in November. No additional episodes of the wide-complex tachycardia observed yesterday. Patient has been n.p.o. since yesterday morning with exception of requiring his medications. Continuous pulse oximetry now being monitored, and pulse ox has remained in the 90s when he was off BiPAP briefly to receive his medications. He continues to diurese well, 3.8 L of urine output noted yesterday, with net negative fluid balance of 2.6 L. Creatinine stable at 3.1. Potassium stable. Review of Systems Review of Systems: All systems reviewed & are unremarkable except as noted in HPI & below Physical Exam Physical Exam: Temp Pulse Resp BP Pulse Ox 36.8 C 75 19 120/66 95 03/31/20 07:59 03/31/20 07:59 03/31/20 07:59 03/31/20 07:59 03/31/20 07:59 Respiratory: Decreased breath sounds in the bases bilaterally Cardiovascular: Distant heart sounds, not well auscultated, unable to assess jugular venous pressure given body habitus Gastrointestinal (Abdomen): normal bowel sounds, soft, nontender, no hepatosplenomegaly Neurologic: PERRL, EOMI, accommodation nl, no face palsy, no dysarthria Results & Data ([facility]) Vital Signs (Past 12 Hours) Vital Signs Temp Pulse Pulse Resp BP BP Pulse Ox 03/31/20 07:59 36.8 C 75 19 120/66 95 03/31/20 07:09 76 18 96 03/31/20 02:53 36.3 C L 73 18 120/76 98 03/31/20 02:25 76 20 97 03/31/20 00:35 75 03/30/20 23:17 36.8 C 76 19 147/75 H 97 Laboratory Results CBC 03/31/20 Range/Units 05:18 WBC 3.86 L (4.8-10.8) K/uL RBC 3.52 L (4.7-6.1) M/uL Hgb 9.3 L (14.0-18.0) g/dL Hct 30.9 L (42-52) % Plt Count 136 (130-400) K/uL Comprehensive Metabolic Panel 03/30/20 03/31/20 Range/Units 16:04 05:18 Sodium 137 139 (136-145) mmol/L Potassium 4.0 3.8 (3.5-5.1) mmol/L Chloride 99 98 (98-107) mmol/L Carbon Dioxide 34 H 35 H (21-32) mmol/L BUN 82 H 79 H (7-18) mg/dl Creatinine 2.37 H 2.31 H (0.6-1.4) mg/dl Glucose 132 H 95 (70-99) mg/dl Calcium 9.6 9.1 (8.5-10.1) mg/dl Intake and Output 03/30/20 03/31/20 03/31/20 22:59 06:59 14:59 Intake Total 570 / 1170 200 / 1170 Output Total 1050 / 3827 1127 / 3827 Balance -480 / -2657 -927 / -2657 Intake: IV 270 / 570 200 / 570 NEXTERONE / D5W 360 mg In 200 200 / 400 200 / 400 ml @ 0.5 MG/MIN 16.667 mls/hr IV .Q12H [facility] Rx#:[id number] Rocephin 2,000 mg In D5w 50 ml 70 / 70 @ 140 mls/hr IV DAILY@1400 [facility] Rx#:[id number] Oral 300 / 600 Output: Urine Amount (Catheter) 1050 / 3425 1125 / 3425 Block/Indwelling 1050 / 3425 1125 / 3425 # Bowel Movements 2 / 2 Other: Weight 191.9 kg Weight Measurement Method Built in [facility] Diagnostic Findings A total of four EKG tracings were performed this morning, which overall appeared consistent with atypical atrial flutter, left bundle branch block with QRS duration 180 ms.
[2020-03-31] MEDS ORDERED: HEPARIN IV BOLUS 10,000 UNITS in SYRINGE 0 ML IV ONE (11:15)
--- NOTE | 2020-03-31 11:51 | Ultrasound Report ---
BILATERAL LOWER EXTREMITY VENOUS DOPPLER HISTORY: Lower extremity edema. COMPARISON STUDY: None. FINDINGS: Suboptimal study due to the patient's body habitus. The visualized bilateral common femoral veins, superficial femoral veins, and popliteal veins appear patent. The calf vessels were unable to be visualized on this study. IMPRESSION: No evidence for deep vein thrombosis within the common femoral through popliteal veins. The calf vess els were not visualized. ACT 112: Negative or not required by law. Electronically signed by: Jerson Dee M.D. 03/31/2020 11:49 AM
[2020-03-31 12:19] LABS: INR 1.3 (0.9-1.1); Partial Thromboplastin Time 29.1 Seconds (21.0-31.0); Prothrombin Time 13.5 Seconds (9.0-12.0)
[2020-03-31] MEDS: HEPARIN SODIUM/DEXTROSE 25,000 UNITS/500 ML BAG IV SCH (12:24)
--- NOTE | 2020-03-31 13:27 | Pharmacy Report ---
Pharmacy Glycemic Short Note 2 - Date of Service March 31, 2020 - Glycemic Short BSG Results (Last 24 hours): 03/30/20 03/30/20 03/30/20 16:04 16:33 20:51 Glucose 132 H POC Glucose 145 H 134 H 03/31/20 03/31/20 03/31/20 00:06 05:18 06:16 Glucose 95 POC Glucose 126 H 99 03/31/20 12:00 Glucose POC Glucose 85 OUTPATIENT ANTIDIABETIC REGIMEN: * Lantus 40 units + Novolog * A1c 5.7% ASSESSMENT: * Patient received total 77 units of insulin yesterday: 65 units basal + 12 units of bolus. * 65 units of basal included 40 units of Lantus and 25 units of NPH to correct steroid induced hyperglycemic caused by Prednisone 40 mg daily. * Fasting BSG today was 99, and patient continued to be NPO this AM. Therefore, the NPH dose was reduced by 50% to be given with Prednisone. * Patient is now ordered a diet with lunch. * Loosened Novolog CF/CR since lunch BSG was only 85. PLAN FOR INPATIENT GLYCEMIC CONTROL: * Basal insulin * Lantus 40 units sq qAM * NPH 12 units x 1 today AM * Bolus insulin: loosened CF/CR * NovoLog per scale ACHS or Q6hrs while NPO * Goal Range: Low 110 mg/dL - High 140 mg/dL * Correction Factor: 20 mg/dL/unit * Nutritional / Prandial insulin per carb ratio of 1 unit per 5 grams CHO consumed PLAN FOR DISCHARGE: * Recent A1c indicates excellent outpatient control, would continue current outpatient regimen if patient without significant hypoglycemic events.
[2020-03-31] MEDS: cefTRIAXone SODIUM 2,000 MG in DEXTROSE 5% 50 ML IV SCH (14:17)
--- NOTE | 2020-03-31 17:50 | Hospitalist Progress Note ---
Date of Service March 31, 2020 Assessment & Plan (1) Acute on chronic respiratory failure with hypoxia and hypercapnia: This is a 64-year-old male who has significant past medical history of chronic respiratory failure with hypoxia and hypercarbia, SAFIA/OHS, on BiPAP, chronic diastolic heart failure, COPD, insulin-dependent T2DM, hypothyroidism, bilateral lymphedema, CKD stage III, bedbound status who presents to ED via EMS secondary to worsening confusion x2 days and acute respiratory failure. Continue with BiPAP Remains reasonably stable (2) SAFIA (obstructive sleep apnea): (3) Acute metabolic encephalopathy: Encephalopathy Multifactorial : Acute on chronic hypoxemic, hypercapnic respiratory failure secondary to decompensated heart failure/COPD exacerbation, hx OHS ELVI possible Cardiorenal syndrome Complicated UTI, no sepsis Hyperammonemia, possible acute hepatic encephalopathy, possible chronic liver disease given fatty liver findings on abdominal ultrasound from 2000 Hypoglycemia, hx DM2 insulin requiring, reasonable control as of recent outpatient hemoglobin A1c of 7.22 November 2019 Gram positive bacteremia -possible contaminant, however for now will cover with IV antibiotics and will closely monitor, repeat blood cultures, repeat blood cultures negative We will continue intravenous ceftriaxone for now Lactulose for possible hepatic encephalopathy, liver ultrasound rule out chronic liver disease, may need GI consultation (4) Atypical atrial flutter: Left atypical atrial flutter with RVR Appreciate cardiology input and recommendation Has been on amiodarone and intravenous heparin -Echo of the heart showed-this study was technically limited, RV is moderately dilated, RV systolic function is moderately reduced, LV chamber size was a small compared to RV chamber size, septal motion consistent with conduction abnormality, LVEF grossly normal, moderate TR, dilated inferior vena cava of 3.5 cm estimated pulmonary artery pressure is 45 mmHg Remains stable clinically (5) Paroxysmal ventricular tachycardia: Intravenous amiodarone (6) Acute on chronic diastolic heart failure: Appreciate cardiology input and recommendation Getting intravenous furosemide with metolazone (7) UTI (urinary tract infection): Urine culture grew E. coli which is pansensitive (8) Acute worsening of stage 3 chronic kidney disease: ELVI with oliguria-worsening renal function, despite IV diuretics Lasix-albumin given kidney dysfunction, Nephrology consulted, patient likely has ATN from hypoxia, hypercapnia in the setting of respiratory failure CT chest/abd/pelvis - obtained to better evaluate fluid status Per nephrology - increased dose IV Lasix to 100 mg IV every 8 hours and metolazone 5 mg daily, continue (9) Diabetes mellitus, type 2: Continue with SSI (10) Anemia: (11) Obesity hypoventilation syndrome: As above Has been getting oral doxycycline as well for possible atypical infection Doxycycline, nebs, prednisone course for COPD exacerbatio (12) Hypertension: BP normal/on lower side Functional disability (patient's brother finding it more difficult to care for the patient at home as per patient niece). PT OT eval (13) Hypothyroidism: euthyroid as of current TSH (14) DVT prophylaxis: Has been on heparin IV Full code as per patient's niece/POA (Ms. Selam Cadet), she can be contacted at . Admission and Anticipated Discharge Date Admission Date: March 24, 2020 Subjective 03/31/2020 The patient was seen and examined in telemetry unit He has been feeling a lot better today Denies any significant symptoms Review of Systems Review of Systems: All systems reviewed and are unremarkable except as noted below Respiratory: no dyspnea Cardiovascular: + palpitations; no chest pain Physical Exam Physical Exam: Lying in bed comfortably Constitutional: well developed, well nourished, + ill appearing and + morbidly obese; no acute distress Eyes: PERRL, conjunctivae normal, anicteric sclerae ENMT: external ear and nose normal, oropharynx normal Neck: trachea midline, no thyromegaly Respiratory: normal respiratory effort; no respiratory distress Auscultation: + diminished lung sounds and + crackles (Minimal crackles at the bases) Cardiovascular: Rate/Rhythm: + abnormal rate and + abnormal rhythm Heart Sounds: no murmur Gastrointestinal (Abdomen): Inspection/Auscultation: abdomen normal to inspection and normal bowel sounds; abdomen not distended Percussion/Palpation: abdomen soft; abdomen nontender Musculoskeletal: No acute arthritis involving any joint Neurologic: moves all extremities; no focal motor deficits Psychiatric: A+Ox3, euthymic affect Lymphatic: no cervical or axillary lymphadenopathy Results & Data Results & Data ([facility]) Vital Signs (Past 12 Hours) Vital Signs Temp Pulse Pulse Pulse Resp BP Pulse Ox 03/31/20 15:21 36.4 C L 72 20 129/78 97 03/31/20 12:13 36.5 C 70 18 112/55 L 95 03/31/20 11:06 65 20 94 03/31/20 07:59 36.8 C 75 19 120/66 95 03/31/20 07:09 76 18 96
[2020-03-31 21:04] LABS: Partial Thromboplastin Ratio > 5.0
[2020-03-31 21:05] LABS: Partial Thromboplastin Time > 139.0 Seconds (21.0-31.0)
[2020-03-31 22:50] LABS: Partial Thromboplastin Ratio > 5.0
[2020-03-31 22:52] LABS: Partial Thromboplastin Time > 139.0 Seconds (21.0-31.0)
[2020-04-01 00:45] LABS: Partial Thromboplastin Ratio > 5.0
[2020-04-01 00:47] LABS: Partial Thromboplastin Time > 139.0 Seconds (21.0-31.0)
[2020-04-01 01:54] LABS: Partial Thromboplastin Ratio 4.7
[2020-04-01 01:58] LABS: Partial Thromboplastin Time 132.3 Seconds (21.0-31.0)
[2020-04-01 03:00] LABS: Partial Thromboplastin Ratio 3.2
[2020-04-01 03:01] LABS: Partial Thromboplastin Time 89.9 Seconds (21.0-31.0)
[2020-04-01] MEDS: LEVOTHYROXINE SODIUM 200 MCG TABLET PO SCH (05:36)
[2020-04-01] MEDS: FUROSEMIDE 100 MG in SYRINGE 0 ML IV SCH ×3 (05:36→21:19)
[2020-04-01] MEDS: LEVOTHYROXINE SODIUM 25 MCG TABLET PO SCH (05:36)
[2020-04-01] MEDS: HEPARIN SODIUM/DEXTROSE 25,000 UNITS/500 ML BAG IV SCH ×2 (05:50→12:27)
[2020-04-01 06:56] LABS: Eosinophils # (auto) 0.01 K/uL (0-0.5); Eosinophils % (auto) 0.2 %; Hematocrit (blood only) 31.1 % (42-52); Hemoglobin 9.5 g/dL (14.0-18.0); Immature Granulocytes # (auto) 0.01 K/uL (0.00-0.02); Immature Granulocytes % (auto) 0.2 %; Lymphocytes # (auto) 0.75 K/uL (1.2-3.4); Lymphocytes % (auto) 16.8 %; Mean Corpuscular Hemoglobin 26.5 pg (25-34); Mean Corpuscular Hgb Conc 30.5 g/dL (32-36); Mean Corpuscular Volume 86.9 fL (80-100); Mean Platelet Volume 9.4 fL (7.4-10.4); Monocytes # (auto) 0.54 K/uL (0.11-0.59); Monocytes % (auto) 12.1 %; Neutrophils # (auto) 3.15 K/uL (1.4-6.5); Neutrophils % (auto) 70.7 %; Platelet Count 111 K/uL (130-400); RDW Coefficient of Variation 17.4 % (11.5-14.5); RDW Standard Deviation 54.8 fL (36.4-46.3); Red Blood Count 3.58 M/uL (4.7-6.1); White Blood Count 4.46 K/uL (4.8-10.8)
[2020-04-01 07:25] LABS: Albumin Level 2.7 gm/dl (3.4-5.0); BUN Creatinine Ratio 37.5 (10-20); Calcium 9.4 mg/dl (8.5-10.1); Creatinine Clr Calc Pharmacy 54.5 ml/min; Est GFR (African American) 33.8; Est GFR (Non-African American) 29.1; Magnesium 2.3 mg/dl (1.8-2.4); Potassium 3.7 mmol/L (3.5-5.1)
[2020-04-01 07:28] LABS: Albumin Globulin Ratio 0.5 (0.9-2); Bilirubin,Total 0.3 mg/dl (0.2-1); Globulin 5.1 gm/dl (2.5-4.0); Total Protein 7.8 gm/dl (6.4-8.2)
[2020-04-01] MEDS: METOPROLOL TARTRATE 25 MG TAB PO SCH ×2 (08:28→21:19)
[2020-04-01] MEDS: LACTULOSE SYRUP 30 GM/45 ML UDP PO SCH ×3 (08:28→21:19)
[2020-04-01] MEDS: hydrALAZINE TAB 50 MG TAB PO SCH ×4 (08:28→21:20)
[2020-04-01] MEDS: INSULIN ASPART 100 UNITS/ML 3 ML PEN SC SCH ×4 (08:29→21:43)
[2020-04-01] MEDS: predniSONE 20 MG TAB PO SCH (08:29)
[2020-04-01] MEDS: metOLazone 5 MG TABLET PO SCH ×2 (08:29→13:15)
[2020-04-01] MEDS: FLUoxetine HCL 20 MG CAP PO SCH (08:29)
[2020-04-01] MEDS: DOXYCYCLINE HYCLATE 100 MG CAP PO SCH ×2 (08:29→21:22)
[2020-04-01] MEDS: FLUoxetine HCL 10 MG CAP PO SCH (08:29)
[2020-04-01] MEDS: PANTOprazole 40 MG TAB PO SCH ×2 (08:29→21:19)
[2020-04-01] MEDS: INSULIN GLARGINE SOLOSTAR 100 UNITS/ML 3 ML PEN SC SCH (08:30)
[2020-04-01] MEDS ORDERED: NovoLIN-N (NPH) PER UNIT CHARGE SQ ONE (09:00)
[2020-04-01 09:46] LABS: Partial Thromboplastin Ratio 3.6
[2020-04-01 09:51] LABS: Partial Thromboplastin Time 100.8 Seconds (21.0-31.0)
--- NOTE | 2020-04-01 10:01 | Nephrology Progress Note ---
Date of Service April 01, 2020 Assessment & Plan (1) Acute worsening of stage 3 chronic kidney disease: Patient with stage 2 acute kidney injury on CKD. Baseline creatinine around 1.1-1.2 in November 2019. Creatinine plateau'd since 03/26 in mid 2's but very slowly drifting down and plateau'd now low 2's. chemistries acceptable for now. No indication for dialysis. -Continue Lasix 100 mg IV 3 times daily and agree w/ cardiology plan to increase metolazone to 5 mg bid -timoteoiy bmp -Monitor input output. -cont FR 1.5L -Avoid contrast unless lifesaving. -will give K po 40 x 1 today (2) Acute on chronic respiratory failure with hypoxia and hypercapnia: Likely multifactorial due to COPD and pulmonary edema. Continue nebulizers and steroids. Will continue Lasix to ensure patient is even to net negative as tolerated-this is approach for managing effusion since thoracentesis not an option clinically. Continue oxygen and BiPAP. (3) Paroxysmal ventricular tachycardia: challenging> provoked by stopping bipap even briefly and w/ few good management options; cardiology following closely Admission and Anticipated Discharge Date Admission Date: March 24, 2020 Subjective seen on rounds at 0715; c/o being cold but no other concerns; feels breathing baseline/status quo; no chest pain or N; edema unchanged; no ventricular ARs onvernight Review of Systems Review of Systems: All systems reviewed & are unremarkable except as noted in HPI & below Physical Exam Constitutional: well developed and well nourished; no acute distress on bipap Eyes: EOM intact bilaterally ENMT: Ears: no external ear abnormality Nose: no external nose abnormality Mouth: + dry oral mucous membranes Neck: no nuchal rigidity Respiratory: normal respiratory effort and + labored breathing Auscultation: + diminished lung sounds Cardiovascular: Rate/Rhythm: regular rate and regular rhythm Extremities: + edema (trace edema BL) Gastrointestinal (Abdomen): Inspection/Auscultation: normal bowel sounds Percussion/Palpation: abdomen soft; abdomen nontender Musculoskeletal: Extremities: strength 5/5 throughout Skin: no rashes, warm and dry Psychiatric: Orientation: alert and oriented x 3 Results & Data ([facility]) Vital Signs (Past 12 Hours) Vital Signs Temp Pulse Pulse Resp BP Pulse Ox 04/01/20 07:31 36.6 C 61 18 108/66 99 04/01/20 04:00 36.7 C 67 18 128/75 97 04/01/20 03:24 74 23 92 04/01/20 00:00 71 03/31/20 23:57 36.3 C L 72 18 125/74 99 03/31/20 22:06 76 21 95 Laboratory Results 04/01/20 06:42 04/01/20 06:42
[2020-04-01] MEDS ORDERED: POTASSIUM CHLORIDE 20 MEQ TABCR PO ONE (10:02)
[2020-04-01] MEDS: AMIODARONE / D5W 360 MG/200 ML BAG IV SCH ×2 (10:59→17:50)
[2020-04-01] MEDS ORDERED: AMIODARONE 200 MG TAB PO ONE (12:57)
--- NOTE | 2020-04-01 12:57 | Cardiology Progress Note ---
Date of Service April 01, 2020 Assessment & Plan (1) Atypical atrial flutter: (2) Acute on chronic diastolic heart failure: (3) Acute on chronic respiratory failure with hypoxia and hypercapnia: (4) Obesity hypoventilation syndrome: (5) Left bundle branch block: Continue current diuretic therapy, furosemide 100 mg IV 3 times daily, metolazone 5 mg daily. Technically limited echocardiogram performed 03/30/2020, with noted right ventricular chamber dilatation and RV hypokinesis, with RV chamber size greater than the LV chamber size. Still with significant urine output, 3 L on current regimen. Will increase metolazone to 5 mg twice daily. Although creatinine is still significantly higher than previous baseline at 2.26, it is stable compared to recent levels. Potassium 3.7 today, for which patient received 40 mEq of potassium chloride supplementation. Add oral Coumadin. Although patient has not been anticoagulated for the last month, he is tolerating amiodarone very well from the rate control standpoint, and at present, I think that the benefits outweigh the risks. Continue metoprolol, transition amiodarone to oral therapy. Admission and Anticipated Discharge Date Admission Date: March 24, 2020 Subjective Patient without complaints. Continuous pulse oximetry has revealed no evidence of low pulse ox readings when he is off of the BiPAP. He is general preference is to nap most of the day with the BiPAP on. Telemetry reveals ongoing atypical atrial flutter (perhaps atrial fibrillation) with left bundle branch block, wide QRS complexes. No additional episodes of wide-complex tachycardia noted overnight last night or thus far today. Lower extremity venous duplex was technically limited without findings to suggest large vessel proximal DVT. Physical Exam Physical Exam: Temp Pulse Resp BP Pulse Ox 36.6 C 77 17 119/65 96 04/01/20 11:26 04/01/20 11:26 04/01/20 11:26 04/01/20 11:26 04/01/20 11:26 Constitutional: WD/WN, vitals as above Cardiovascular: Heart sounds difficult to assess due to body habitus Gastrointestinal (Abdomen): No tenderness Neurologic: PERRL, EOMI, accommodation nl, no face palsy, no dysarthria Results & Data ([facility]) Vital Signs (Past 12 Hours) Vital Signs Temp Pulse Pulse Resp BP Pulse Ox 04/01/20 11:26 36.6 C 77 17 119/65 96 04/01/20 07:31 36.6 C 61 18 108/66 99 04/01/20 04:00 36.7 C 67 18 128/75 97 04/01/20 03:24 74 23 92
[2020-04-01] MEDS: cefTRIAXone SODIUM 2,000 MG in DEXTROSE 5% 50 ML IV SCH (13:20)
[2020-04-01 13:25] LABS: INR 1.4 (0.9-1.1); Prothrombin Time 14.6 Seconds (9.0-12.0)
--- NOTE | 2020-04-01 14:56 | Hospitalist Progress Note ---
Date of Service April 01, 2020 Assessment & Plan (1) Acute on chronic respiratory failure with hypoxia and hypercapnia: This is a 64-year-old male who has significant past medical history of chronic respiratory failure with hypoxia and hypercarbia, SAFIA/OHS, on BiPAP, chronic diastolic heart failure, COPD, insulin-dependent T2DM, hypothyroidism, bilateral lymphedema, CKD stage III, bedbound status who presents to ED via EMS secondary to worsening confusion x2 days and acute respiratory failure. Continue with BiPAP Remains reasonably stable (2) SAFIA (obstructive sleep apnea): (3) Acute metabolic encephalopathy: Encephalopathy Multifactorial : Acute on chronic hypoxemic, hypercapnic respiratory failure secondary to decompensated heart failure/COPD exacerbation, hx OHS ELVI possible Cardiorenal syndrome Complicated UTI, no sepsis Hyperammonemia, possible acute hepatic encephalopathy, possible chronic liver disease given fatty liver findings on abdominal ultrasound from 2000 Hypoglycemia, hx DM2 insulin requiring, reasonable control as of recent outpatient hemoglobin A1c of 7.22 November 2019 Gram positive bacteremia -possible contaminant, however for now will cover with IV antibiotics and will closely monitor, repeat blood cultures, repeat blood cultures negative We will continue intravenous ceftriaxone for now Lactulose for possible hepatic encephalopathy, liver ultrasound rule out chronic liver disease, may need GI consultation Ammonia level is normal and encephalopathy seems to be clearing up (4) Atypical atrial flutter: Left atypical atrial flutter with RVR Appreciate cardiology input and recommendation Has been on amiodarone and intravenous heparin -Echo of the heart showed-this study was technically limited, RV is moderately dilated, RV systolic function is moderately reduced, LV chamber size was a small compared to RV chamber size, septal motion consistent with conduction abnormality, LVEF grossly normal, moderate TR, dilated inferior vena cava of 3.5 cm estimated pulmonary artery pressure is 45 mmHg Remains stable clinically IV amiodarone has been changed to oral Heart rate remains controlled (5) Paroxysmal ventricular tachycardia: Intravenous amiodarone (6) Acute on chronic diastolic heart failure: Appreciate cardiology input and recommendation Getting intravenous furosemide with metolazone Continue with intravenous furosemide 100 mg 3 times daily and metolazone 5 mg 2 times daily (7) UTI (urinary tract infection): Urine culture grew E. coli which is pansensitive With intravenous ceftriaxone (8) Acute worsening of stage 3 chronic kidney disease: ELVI with oliguria-worsening renal function, despite IV diuretics Lasix-albumin given kidney dysfunction, Nephrology consulted, patient likely has ATN from hypoxia, hypercapnia in the setting of respiratory failure CT chest/abd/pelvis - obtained to better evaluate fluid status Per nephrology - increased dose IV Lasix to 100 mg IV every 8 hours and metolazone 5 mg twice daily We will monitor PRP and electrolytes Creatinine remains stable at 2.26 (9) Diabetes mellitus, type 2: Continue with SSI (10) Anemia: (11) Obesity hypoventilation syndrome: As above Has been getting oral doxycycline as well for possible atypical infection Doxycycline, nebs, prednisone course for COPD exacerbatio (12) Hypertension: BP normal/on lower side Functional disability (patient's brother finding it more difficult to care for the patient at home as per patient niece). PT OT eval (13) Hypothyroidism: euthyroid as of current TSH (14) DVT prophylaxis: Has been on heparin IV Full code as per patient's niece/POA (Ms. Selam Cadet), she can be contacted at . Stable clinically Admission and Anticipated Discharge Date Admission Date: March 24, 2020 Subjective 03/31/2020 The patient was seen and examined in telemetry unit He has been feeling a lot better today Denies any significant symptoms 04/01/2020 The patient was seen and examined in telemetry unit He has been stable and feeling better Denies any symptoms at rest Review of Systems Review of Systems: All systems reviewed and are unremarkable except as noted below Cardiovascular: no chest pain and no palpitations Physical Exam Physical Exam: Lying in bed comfortably Constitutional: well developed, well nourished, + ill appearing and + morbidly obese; no acute distress Eyes: PERRL, conjunctivae normal, anicteric sclerae ENMT: external ear and nose normal, oropharynx normal Neck: trachea midline, no thyromegaly Respiratory: normal respiratory effort; no respiratory distress Auscultation: + diminished lung sounds and + crackles (Minimal crackles at the bases) Cardiovascular: Rate/Rhythm: + abnormal rate and + abnormal rhythm Heart Sounds: no murmur Gastrointestinal (Abdomen): Inspection/Auscultation: abdomen normal to inspection and normal bowel sounds; abdomen not distended Percussion/Palpation: abdomen soft; abdomen nontender Musculoskeletal: No acute arthritis in any joint Neurologic: moves all extremities; no focal motor deficits Psychiatric: A+Ox3, euthymic affect Lymphatic: no cervical or axillary lymphadenopathy Results & Data Results & Data ([facility]) Vital Signs (Past 12 Hours) Vital Signs Temp Pulse Pulse Resp BP Pulse Ox 04/01/20 11:26 36.6 C 77 17 119/65 96 04/01/20 07:31 36.6 C 61 18 108/66 99 04/01/20 04:00 36.7 C 67 18 128/75 97 04/01/20 03:24 74 23 92 Laboratory Results Short CBC 04/01/20 Range/Units 06:42 WBC 4.46 L (4.8-10.8) K/uL Hgb 9.5 L (14.0-18.0) g/dL Hct 31.1 L (42-52) % Plt Count 111 L (130-400) K/uL BMP 04/01/20 06:42 Sodium 135 L Potassium 3.7 Chloride 94 L Carbon Dioxide 34 H BUN 85 H Creatinine 2.26 H Glucose 149 H Calcium 9.4 Liver Function 04/01/20 Range/Units 06:42 Total Bilirubin 0.3 (0.2-1) mg/dl AST 25 (15-37) U/L ALT 23 (12-78) U/L Alkaline Phosphatase 79 (45-117) U/L Albumin 2.7 L (3.4-5.0) gm/dl Medications Administered Current Inpatient Medications Acetaminophen (Acetaminophen 325 Mg Tab) 325 mg PO Q6H PRN PRN Reason: Mild Pain Stop: 04/23/20 23:49 Last Admin: 03/29/20 09:06 Dose: 325 mg Documented by: Albuterol (Albut/Ipratrop 3mg/0.5mg Neb 3 Ml Vial) 3 ml NEB Q2R PRN PRN Reason: Shortness Of Breath Stop: 04/28/20 14:59 Amiodarone HCl (Amiodarone 200 Mg Tab) 200 mg PO BIDM CAROL ANN Stop: 05/01/20 16:59 Dextrose (Dextrose 50% 50 Ml Syringe) 25 - 50 ml IV UD PRN; Protocol PRN Reason: Hypoglycemia Protocol Stop: 04/23/20 23:49 Doxycycline Hyclate (Doxycycline Hyclate 100 Mg Cap) 100 mg PO BID CAROL ANN Stop: 04/04/20 20:59 Last Admin: 04/01/20 08:29 Dose: 100 mg Documented by: Fluoxetine HCl (Fluoxetine Hcl 20 Mg Cap) 20 mg PO DAILY [facility] Stop: 04/24/20 08:59 Last Admin: 04/01/20 08:29 Dose: 20 mg Documented by: Fluoxetine HCl (Fluoxetine Hcl 10 Mg Cap) 10 mg PO DAILY CAROL ANN Stop: 04/24/20 08:59 Last Admin: 04/01/20 08:29 Dose: 10 mg Documented by: Glucagon (Glucagon For Inj 1 Mg Vial) 1 mg SQ UD PRN; Protocol PRN Reason: Hypoglycemia Protocol Stop: 04/23/20 23:49 Glucose (Glucose 10 Tabs/Tube) 4 - 8 tabs PO UD PRN; Protocol PRN Reason: Hypoglycemia Protocol Stop: 04/23/20 23:49 Glucose (Glucose 40% Gel 15 Gm Tube) 15 - 30 gm PO UD PRN; Protocol PRN Reason: Hypoglycemia Protocol Stop: 04/23/20 23:49 Hydralazine HCl (Hydralazine Tab 50 Mg Tab) 50 mg PO QID [facility] Stop: 04/24/20 08:59 Last Admin: 04/01/20 13:02 Dose: 50 mg Documented by: Furosemide 100 mg/ Syringe 10 mls @ 4 mls/min IV Q8 [facility] Stop: 04/25/20 13:59 Last Admin: 04/01/20 13:03 Dose: 4 mls/min Documented by: Ceftriaxone Sodium 2,000 mg/ (Dextrose) 70 mls @ 140 mls/hr IV DAILY@1400 CAROL ANN; Protocol Stop: 04/05/20 14:14 Last Infusion: 04/01/20 13:56 Dose: Infused Documented by: Heparin Sodium/Dextrose (Heparin Sodium/Dextrose) 25,000 units in 500 mls @ 31 mls/hr IV .Q16H8M [facility]; Protocol Stop: 04/30/20 10:44 Last Admin: 04/01/20 12:27 Dose: Not Given Documented by: Insulin Aspart (Insulin Aspart 100 Units/Ml 3 Ml Pen) 0 units SC ACHS [facility] Stop: 04/30/20 16:29 Last Admin: 04/01/20 13:03 Dose: 13 units Documented by: Insulin Glargine (Insulin Glargine Solostar 100 Units/Ml 3 Ml Pen) 40 units SC QAM [facility] Stop: 04/28/20 08:59 Last Admin: 04/01/20 08:30 Dose: 40 units Documented by: Lactulose (Lactulose Syrup 30 Gm/45 Ml Udp) 30 gm PO TID [facility] Stop: 04/23/20 23:49 Last Admin: 04/01/20 13:11 Dose: 30 gm Documented by: Levothyroxine Sodium (Levothyroxine Sodium 25 Mcg Tablet) 25 mcg PO DAILYBB [facility] Stop: 04/27/20 09:59 Last Admin: 04/01/20 05:36 Dose: 25 mcg Documented by: Levothyroxine Sodium (Levothyroxine Sodium 200 Mcg Tablet) 200 mcg PO DAILYBB [facility] Stop: 04/28/20 06:29 Last Admin: 04/01/20 05:36 Dose: 200 mcg Documented by: Metolazone (Metolazone 5 Mg Tablet) 5 mg PO [id number] [facility] Stop: 05/01/20 13:59 Last Admin: 04/01/20 13:15 Dose: 5 mg Documented by: Metoprolol Tartrate (Metoprolol Tartrate 25 Mg Tab) 25 mg PO BID [facility] Stop: 04/28/20 08:59 Last Admin: 04/01/20 08:28 Dose: 25 mg Documented by: Miconazole Nitrate (Miconazole Nitrate Powder 43 Gm) 1 appln EXT PRN PRN PRN Reason: Affected Skin Folds Stop: 04/24/20 06:29 Miscellaneous (Carbohydrates For Hypoglycemia ) 15 - 30 gm PO UD PRN PRN Reason: Hypoglycemia Protocol Stop: 04/23/20 23:49 Miscellaneous Information (Pharmacy Glycemic Mgmt Consult) 1 ea N/A UD PRN PRN Reason: Consult Stop: 04/27/20 15:03 Nitroglycerin (Nitroglycerin Sl 0.4 Mg/Tab Tab) 0.4 mg SL UD PRN PRN Reason: Chest Pain Stop: 04/23/20 23:49 Pantoprazole Sodium (Pantoprazole 40 Mg Tab) 40 mg PO BID [facility] Stop: 04/24/20 08:59 Last Admin: 04/01/20 08:29 Dose: 40 mg Documented by: Prednisone (Prednisone 20 Mg Tab) 40 mg PO QAM [facility] Stop: 04/28/20 08:59 Last Admin: 04/01/20 08:29 Dose: 40 mg Documented by: Warfarin Sodium (Warfarin Sod 5 Mg Tab) 5 mg PO DAILY@1600 [facility] Stop: 05/01/20 15:59
[2020-04-01] MEDS: AMIODARONE 200 MG TAB PO SCH (16:51)
[2020-04-01] MEDS: WARFARIN SOD 5 MG TAB PO SCH (16:52)
[2020-04-01] MEDS ORDERED: 0.2 MICRON FILTER SET 1 EA IV ONE (17:34)
--- NOTE | 2020-04-01 17:41 | Communication Note ---
Date of Service: April 01, 2020 Notified by nursing that patient had another run of wide complex tachycardia at 200-260 bpm lasting from 17:23:59 until 17:24:13, 14 seconds as per my review of telemetry. Of note, patient was off of BiPAP at the time of the event, he was finishing up his evening meal. Similar to the other events, this occurred while he was eating, although his pulse oximetry was not low, he was off of BiPAP, and eating. No symptoms were reported. IV amiodarone was discontinued earlier today, and he had received two doses of amiodarone 200 mg orally thus far. Plan: Resume IV amiodarone 0.5 mg/h, continue oral amiodarone, oral metoprolol.
[2020-04-01 18:20] LABS: Partial Thromboplastin Ratio > 5.0
[2020-04-01 18:22] LABS: Partial Thromboplastin Time > 139.0 Seconds (21.0-31.0)
[2020-04-01 21:16] LABS: Partial Thromboplastin Ratio 4.2
[2020-04-01 21:21] LABS: Partial Thromboplastin Time 117.7 Seconds (21.0-31.0)
[2020-04-02] MEDS: HEPARIN SODIUM/DEXTROSE 25,000 UNITS/500 ML BAG IV SCH ×2 (03:12→13:16)
[2020-04-02 04:56] LABS: Hematocrit (blood only) 29.5 % (42-52); Hemoglobin 9.1 g/dL (14.0-18.0); Immature Granulocytes # (auto) 0.01 K/uL (0.00-0.02); Immature Granulocytes % (auto) 0.2 %; Lymphocytes % (auto) 11.5 %; Mean Corpuscular Hemoglobin 26.2 pg (25-34); Mean Corpuscular Hgb Conc 30.8 g/dL (32-36); Mean Platelet Volume 10.3 fL (7.4-10.4); Monocytes # (auto) 0.39 K/uL (0.11-0.59); Monocytes % (auto) 8.9 %; Neutrophils # (auto) 3.46 K/uL (1.4-6.5); Neutrophils % (auto) 79.4 %; Platelet Count 122 K/uL (130-400); RDW Coefficient of Variation 17.3 % (11.5-14.5); RDW Standard Deviation 53.6 fL (36.4-46.3); Red Blood Count 3.47 M/uL (4.7-6.1); White Blood Count 4.36 K/uL (4.8-10.8)
[2020-04-02] MEDS: AMIODARONE / D5W 360 MG/200 ML BAG IV SCH ×2 (05:06→17:38)
[2020-04-02] MEDS: FUROSEMIDE 100 MG in SYRINGE 0 ML IV SCH ×3 (05:07→21:24)
[2020-04-02] MEDS: LEVOTHYROXINE SODIUM 200 MCG TABLET PO SCH (05:08)
[2020-04-02] MEDS: LEVOTHYROXINE SODIUM 25 MCG TABLET PO SCH (05:08)
[2020-04-02 05:17] LABS: INR 1.3 (0.9-1.1); Partial Thromboplastin Ratio 4.3; Prothrombin Time 13.9 Seconds (9.0-12.0)
[2020-04-02 05:19] LABS: Partial Thromboplastin Time 119.1 Seconds (21.0-31.0)
[2020-04-02 05:23] LABS: BUN Creatinine Ratio 38.4 (10-20); Creatinine Clr Calc Pharmacy 58.1 ml/min; Est GFR (African American) 36.5; Est GFR (Non-African American) 31.5; Magnesium 2.2 mg/dl (1.8-2.4); Potassium 3.8 mmol/L (3.5-5.1)
[2020-04-02 05:36] LABS: RBC Morphology Unremarkable
[2020-04-02] MEDS: PANTOprazole 40 MG TAB PO SCH ×2 (08:10→19:37)
[2020-04-02] MEDS: METOPROLOL TARTRATE 25 MG TAB PO SCH ×2 (08:10→19:37)
[2020-04-02] MEDS: FLUoxetine HCL 20 MG CAP PO SCH (08:11)
[2020-04-02] MEDS: AMIODARONE 200 MG TAB PO SCH ×2 (08:11→17:23)
[2020-04-02] MEDS: hydrALAZINE TAB 50 MG TAB PO SCH ×4 (08:11→19:37)
[2020-04-02] MEDS: DOXYCYCLINE HYCLATE 100 MG CAP PO SCH ×2 (08:11→19:37)
[2020-04-02] MEDS: metOLazone 5 MG TABLET PO SCH ×2 (08:11→13:36)
[2020-04-02] MEDS: predniSONE 20 MG TAB PO SCH (08:11)
[2020-04-02] MEDS: FLUoxetine HCL 10 MG CAP PO SCH (08:11)
[2020-04-02] MEDS: INSULIN GLARGINE SOLOSTAR 100 UNITS/ML 3 ML PEN SC SCH (08:12)
[2020-04-02] MEDS: INSULIN ASPART 100 UNITS/ML 3 ML PEN SC SCH ×4 (08:14→21:23)
[2020-04-02] MEDS ORDERED: NovoLIN-N (NPH) PER UNIT CHARGE SQ ONE (09:00)
[2020-04-02] MEDS: LACTULOSE SYRUP 30 GM/45 ML UDP PO SCH ×2 (09:53→15:01)
[2020-04-02 12:50] LABS: Partial Thromboplastin Ratio 2.8
[2020-04-02 12:54] LABS: Partial Thromboplastin Time 78.8 Seconds (21.0-31.0)
--- NOTE | 2020-04-02 13:19 | Pharmacy Report ---
Pharmacy Glycemic Short Note 2 - Date of Service April 02, 2020 - Glycemic Short BSG Results (Last 24 hours): 04/01/20 04/01/20 04/02/20 15:58 20:04 04:22 Glucose 86 POC Glucose 102 H 89 04/02/20 04/02/20 07:42 11:26 Glucose POC Glucose 127 H 128 H OUTPATIENT ANTIDIABETIC REGIMEN: * Lantus 40 units + Novolog * A1c 5.7% ASSESSMENT: 04/02/20 * Blood sugars at goal, continue NPH with prednisone * Patient remains on Prednisone 40mg daily; IV Rocephin and PO Doxycycline 03/31/20 * Patient received total 77 units of insulin yesterday: 65 units basal + 12 units of bolus. * 65 units of basal included 40 units of Lantus and 25 units of NPH to correct steroid induced hyperglycemic caused by Prednisone 40 mg daily. * Fasting BSG today was 99, and patient continued to be NPO this AM. Therefore, the NPH dose was reduced by 50% to be given with Prednisone. * Patient is now ordered a diet with lunch. * Loosened Novolog CF/CR since lunch BSG was only 85. PLAN FOR INPATIENT GLYCEMIC CONTROL: * Basal insulin * Lantus 40 units sq qAM * NPH 15 units SQ today with Prednisone * Bolus insulin: * NovoLog per scale ACHS or Q6hrs while NPO * Goal Range: Low 110 mg/dL - High 140 mg/dL * Correction Factor: 20 mg/dL/unit * Nutritional / Prandial insulin per carb ratio of 1 unit per 5 grams CHO consumed PLAN FOR DISCHARGE: * Recent A1c indicates excellent outpatient control, would continue current outpatient regimen if patient without significant hypoglycemic events.
[2020-04-02] MEDS: ACETAMINOPHEN 325 MG TAB PO PRN (14:45)
[2020-04-02] MEDS: cefTRIAXone SODIUM 2,000 MG in DEXTROSE 5% 50 ML IV SCH (14:46)
--- NOTE | 2020-04-02 15:15 | Cardiology Progress Note ---
Date of Service April 02, 2020 Assessment & Plan (1) Atypical atrial flutter: (2) Paroxysmal ventricular tachycardia: (3) Acute on chronic diastolic heart failure: (4) Obesity hypoventilation syndrome: Patient continues to diurese, another 3.3 L of urine output, with net loss of 1.4 L yesterday on furosemide 100 mg IV 3 times daily, metolazone 5 mg twice daily. Admission and Anticipated Discharge Date Admission Date: March 24, 2020 Subjective Patient seen in follow-up. He denies any chest discomfort or shortness of breath. He was comfortable. Per review of telemetry, no additional tachycardia episodes noted since the 14-second episode that occurred last evening 04/01/2020 at 1724. Review of Systems Review of Systems: All systems reviewed & are unremarkable except as noted in HPI & below Physical Exam Physical Exam: Temp Pulse Resp BP Pulse Ox 36.7 C 65 20 134/52 L 97 04/02/20 11:35 04/02/20 11:35 04/02/20 11:35 04/02/20 11:35 04/02/20 11:35 Constitutional: WD/WN, vitals as above Respiratory: normal respiratory effort, lungs clear to auscultation Cardiovascular: Heart sounds difficult to assess due to body habitus, jugular venous pressure unobtainable, trivial edema Gastrointestinal (Abdomen): Obese, soft nontender Neurologic: PERRL, EOMI, accommodation nl, no face palsy, no dysarthria Results & Data ([facility]) Vital Signs (Past 12 Hours) Vital Signs Temp Pulse Pulse Pulse Resp BP Pulse Ox 04/02/20 11:35 36.7 C 65 20 134/52 L 97 04/02/20 07:06 36.5 C 76 24 127/62 97 04/02/20 04:53 36.7 C 67 19 114/62 98 04/02/20 03:15 76 26 H 96 Laboratory Results Hemoglobin 9.1, PTT 78, INR 1.3, creatinine 2.12, down from 2.16 (previous baseline, November,, 11.24), magnesium 2.2. Wide-complex tachycardia event observed again last evening at 17: 24, 13 to 14 seconds in duration, very rapid ventricular rate, and excess of well over 200 bpm, no definite symptoms. As noted previously, the symptoms were related with meals. No associated decrease in pulse oximetry noted at this time. This once again becomes a very complex management challenge. Patient's electrolytes are stable. He continues to have urine output with aggressive diuretic therapy. Although he prefers to keep BiPAP on for much of the day as he naps, I had encouraged him that today we really need to try to take as many breaks off of this as possible to see if he is making any kind of progress in terms of his respiratory status and his pulse oximetry. Once again technically limited echocardiogram suggests right ventricular systolic dysfunction worse than left ventricular systolic dysfunction, and I do not think that additional cardiac assessment to include transesophageal echocardiogram for better quantification of his systolic function will cardiac catheterization to evaluate for coronary heart disease could be pursued without placing him on the ventilator, and then I would have severe considerations about the ability to wean him and the subsequent complications thereof. In order to be considered a candidate for an implantable defibrillator, the patient needs to have a life expectancy greater than 1 year, and I am not certain that this is the case with this particular patient, as I feel his prognosis is poor with or without more aggressive intervention. At present, continue oral amiodarone, IV amiodarone, metoprolol. Continue current diuretics. Continue heparin to Coumadin.
[2020-04-02] MEDS: WARFARIN SOD 5 MG TAB PO SCH (17:23)
--- NOTE | 2020-04-02 17:54 | Hospitalist Progress Note ---
Date of Service April 02, 2020 Assessment & Plan (1) Acute on chronic respiratory failure with hypoxia and hypercapnia: This is a 64-year-old male who has significant past medical history of chronic respiratory failure with hypoxia and hypercarbia, SAFIA/OHS, on BiPAP, chronic diastolic heart failure, COPD, insulin-dependent T2DM, hypothyroidism, bilateral lymphedema, CKD stage III, bedbound status who presents to ED via EMS secondary to worsening confusion x2 days and acute respiratory failure. Continue with BiPAP Remains reasonably stable (2) SAFIA (obstructive sleep apnea): (3) Acute metabolic encephalopathy: Encephalopathy Multifactorial : Acute on chronic hypoxemic, hypercapnic respiratory failure secondary to decompensated heart failure/COPD exacerbation, hx OHS ELVI possible Cardiorenal syndrome Complicated UTI, no sepsis Hyperammonemia, possible acute hepatic encephalopathy, possible chronic liver disease given fatty liver findings on abdominal ultrasound from 2000 Hypoglycemia, hx DM2 insulin requiring, reasonable control as of recent outpatient hemoglobin A1c of 7.22 November 2019 Gram positive bacteremia -possible contaminant, however for now will cover with IV antibiotics and will closely monitor, repeat blood cultures, repeat blood cultures negative We will continue intravenous ceftriaxone for now Lactulose for possible hepatic encephalopathy, liver ultrasound rule out chronic liver disease, may need GI consultation Ammonia level is normal and encephalopathy seems to be clearing up No more confusion (4) Atypical atrial flutter: Left atypical atrial flutter with RVR Appreciate cardiology input and recommendation Has been on amiodarone and intravenous heparin -Echo of the heart showed-this study was technically limited, RV is moderately dilated, RV systolic function is moderately reduced, LV chamber size was a small compared to RV chamber size, septal motion consistent with conduction abnor mality, LVEF grossly normal, moderate TR, dilated inferior vena cava of 3.5 cm estimated pulmonary artery pressure is 45 mmHg Remains stable clinically IV amiodarone has been changed to oral Has had 10 beats of V. tach and required to have back on intravenous amiodarone Has been feeling a lot better today (5) Paroxysmal ventricular tachycardia: Intravenous amiodarone Oral when appropriate (6) Acute on chronic diastolic heart failure: Appreciate cardiology input and recommendation Getting intravenous furosemide with metolazone Continue with intravenous furosemide 100 mg 3 times daily and metolazone 5 mg 2 times daily Diuresing enough (7) UTI (urinary tract infection): Urine culture grew E. coli which is pansensitive With intravenous ceftriaxone (8) Acute worsening of stage 3 chronic kidney disease: ELVI with oliguria-worsening renal function, despite IV diuretics Lasix-albumin given kidney dysfunction, Nephrology consulted, patient likely has ATN from hypoxia, hypercapnia in the setting of respiratory failure CT chest/abd/pelvis - obtained to better evaluate fluid status Per nephrology - increased dose IV Lasix to 100 mg IV every 8 hours and metolazone 5 mg twice daily We will monitor PRP and electrolytes Creatinine remains stable at 2.26-we will monitor PRP (9) Diabetes mellitus, type 2: Continue with SSI (10) Anemia: (11) Obesity hypoventilation syndrome: As above Has been getting oral doxycycline as well for possible atypical infection Doxycycline, nebs, prednisone course for COPD exacerbatio (12) Hypertension: BP normal/on lower side Functional disability (patient's brother finding it more difficult to care for the patient at home as per patient niece). PT OT eval (13) Hypothyroidism: euthyroid as of current TSH (14) DVT prophylaxis: Has been on heparin IV Full code as per patient's niece/POA (Ms. Sealm Cadet), she can be contacted at . Stable clinically Admission and Anticipated Discharge Date Admission Date: March 24, 2020 Subjective 03/31/2020 The patient was seen and examined in telemetry unit He has been feeling a lot better today Denies any significant symptoms 04/01/2020 The patient was seen and examined in telemetry unit He has been stable and feeling better Denies any symptoms at rest 04/02/2020 The patient was seen and examined in telemetry unit He remains stable and denies any symptoms He is bedbound and can do hardly anything for himself Review of Systems Review of Systems: All systems reviewed and are unremarkable except as noted below Neurologic: + generalized weakness Physical Exam Physical Exam: Lying in bed comfortably Constitutional: well developed, well nourished, + ill appearing and + morbidly obese; no acute distress Eyes: PERRL, conjunctivae normal, anicteric sclerae ENMT: external ear and nose normal, oropharynx normal Neck: trachea midline, no thyromegaly Respiratory: normal respiratory effort; no respiratory distress Auscultation: + diminished lung sounds and + crackles (Minimal crackles at the bases) Cardiovascular: Rate/Rhythm: + abnormal rate and + abnormal rhythm Heart Sounds: no murmur Gastrointestinal (Abdomen): Inspection/Auscultation: abdomen normal to inspection and normal bowel sounds; abdomen not distended Percussion/Palpation: abdomen soft; abdomen nontender Musculoskeletal: No acute arthritis in any joint Neurologic: moves all extremities; no focal motor deficits Psychiatric: A+Ox3, euthymic affect Lymphatic: no cervical or axillary lymphadenopathy Results & Data Results & Data ([facility]) Vital Signs (Past 12 Hours) Vital Signs Temp Pulse Pulse Resp BP Pulse Ox 04/02/20 15:46 36.8 C 81 18 127/70 97 04/02/20 11:35 36.7 C 65 20 134/52 L 97 04/02/20 07:06 36.5 C 76 24 127/62 97 Laboratory Results Short CBC 04/02/20 Range/Units 04:22 WBC 4.36 L (4.8-10.8) K/uL Hgb 9.1 L (14.0-18.0) g/dL Hct 29.5 L (42-52) % Plt Count 122 L (130-400) K/uL BMP 04/02/20 04:22 Sodium 137 Potassium 3.8 Chloride 95 L Carbon Dioxide 38 H BUN 81 H Creatinine 2.12 H Glucose 86 Calcium 9.0 Medications Administered Current Inpatient Medications Acetaminophen (Acetaminophen 325 Mg Tab) 325 mg PO Q6H PRN PRN Reason: Mild Pain Stop: 04/23/20 23:49 Last Admin: 04/02/20 14:45 Dose: 325 mg Documented by: Albuterol (Albut/Ipratrop 3mg/0.5mg Neb 3 Ml Vial) 3 ml NEB Q2R PRN PRN Reason: Shortness Of Breath Stop: 04/28/20 14:59 Amiodarone HCl (Amiodarone 200 Mg Tab) 200 mg PO BIDM CAROL ANN Stop: 05/01/20 16:59 Last Admin: 04/02/20 17:23 Dose: 200 mg Documented by: Dextrose (Dextrose 50% 50 Ml Syringe) 25 - 50 ml IV UD PRN; Protocol PRN Reason: Hypoglycemia Protocol Stop: 04/23/20 23:49 Doxycycline Hyclate (Doxycycline Hyclate 100 Mg Cap) 100 mg PO BID CAROL ANN Stop: 04/04/20 20:59 Last Admin: 04/02/20 08:11 Dose: 100 mg Documented by: Fluoxetine HCl (Fluoxetine Hcl 20 Mg Cap) 20 mg PO DAILY CAROL ANN Stop: 04/24/20 08:59 Last Admin: 04/02/20 08:11 Dose: 20 mg Documented by: Fluoxetine HCl (Fluoxetine Hcl 10 Mg Cap) 10 mg PO DAILY CAROL ANN Stop: 04/24/20 08:59 Last Admin: 04/02/20 08:11 Dose: 10 mg Documented by: Glucagon (Glucagon For Inj 1 Mg Vial) 1 mg SQ UD PRN; Protocol PRN Reason: Hypoglycemia Protocol Stop: 04/23/20 23:49 Glucose (Glucose 10 Tabs/Tube) 4 - 8 tabs PO UD PRN; Protocol PRN Reason: Hypoglycemia Protocol Stop: 04/23/20 23:49 Glucose (Glucose 40% Gel 15 Gm Tube) 15 - 30 gm PO UD PRN; Protocol PRN Reason: Hypoglycemia Protocol Stop: 04/23/20 23:49 Hydralazine HCl (Hydralazine Tab 50 Mg Tab) 50 mg PO QID [facility] Stop: 04/24/20 08:59 Last Admin: 04/02/20 17:23 Dose: 50 mg Documented by: Furosemide 100 mg/ Syringe 10 mls @ 4 mls/min IV Q8 [facility] Stop: 04/25/20 13:59 Last Admin: 04/02/20 13:37 Dose: 4 mls/min Documented by: Ceftriaxone Sodium 2,000 mg/ (Dextrose) 70 mls @ 140 mls/hr IV DAILY@1400 CAROL ANN; Protocol Stop: 04/05/20 14:14 Last Infusion: 04/02/20 15:35 Dose: Infused Documented by: Heparin Sodium/Dextrose (Heparin Sodium/Dextrose) 25,000 units in 500 mls @ 12 mls/hr IV .Q24H [facility]; Protocol Stop: 04/30/20 10:44 Last Admin: 04/02/20 13:16 Dose: Not Given Documented by: Amiodarone HCl/Dextrose (Nexterone / D5w) 360 mg in 200 mls @ 16.667 mls/hr IV .Q12H [facility] Stop: 05/01/20 17:44 Last Admin: 04/02/20 17:38 Dose: 0.5 mg/min, 16.7 mls/hr Documented by: Insulin Aspart (Insulin Aspart 100 Units/Ml 3 Ml Pen) 0 units SC ACHS [facility] Stop: 04/30/20 16:29 Last Admin: 04/02/20 17:21 Dose: 10 units Documented by: Insulin Glargine (Insulin Glargine Solostar 100 Units/Ml 3 Ml Pen) 40 units SC QAM [facility] Stop: 04/28/20 08:59 Last Admin: 04/02/20 08:12 Dose: 40 units Documented by: Levothyroxine Sodium (Levothyroxine Sodium 25 Mcg Tablet) 25 mcg PO DAILYBB [facility] Stop: 04/27/20 09:59 Last Admin: 04/02/20 05:08 Dose: 25 mcg Documented by: Levothyroxine Sodium (Levothyroxine Sodium 200 Mcg Tablet) 200 mcg PO DAILYBB [facility] Stop: 04/28/20 06:29 Last Admin: 04/02/20 05:08 Dose: 200 mcg Documented by: Metolazone (Metolazone 5 Mg Tablet) 5 mg PO [id number] [facility] Stop: 05/01/20 13:59 Last Admin: 04/02/20 13:36 Dose: 5 mg Documented by: Metoprolol Tartrate (Metoprolol Tartrate 25 Mg Tab) 25 mg PO BID [facility] Stop: 04/28/20 08:59 Last Admin: 04/02/20 08:10 Dose: 25 mg Documented by: Miconazole Nitrate (Miconazole Nitrate Powder 43 Gm) 1 appln EXT PRN PRN PRN Reason: Affected Skin Folds Stop: 04/24/20 06:29 Miscellaneous (Carbohydrates For Hypoglycemia ) 15 - 30 gm PO UD PRN PRN Reason: Hypoglycemia Protocol Stop: 04/23/20 23:49 Miscellaneous Information (Pharmacy Glycemic Mgmt Consult) 1 ea N/A UD PRN PRN Reason: Consult Stop: 04/27/20 15:03 Nitroglycerin (Nitroglycerin Sl 0.4 Mg/Tab Tab) 0.4 mg SL UD PRN PRN Reason: Chest Pain Stop: 04/23/20 23:49 Pantoprazole Sodium (Pantoprazole 40 Mg Tab) 40 mg PO BID [facility] Stop: 04/24/20 08:59 Last Admin: 04/02/20 08:10 Dose: 40 mg Documented by: Prednisone (Prednisone 20 Mg Tab) 40 mg PO QAM [facility] Stop: 04/28/20 08:59 Last Admin: 04/02/20 08:11 Dose: 40 mg Documented by: Warfarin Sodium (Warfarin Sod 5 Mg Tab) 5 mg PO DAILY@1600 [facility] Stop: 05/01/20 15:59 Last Admin: 04/02/20 17:23 Dose: 5 mg Documented by:
--- NOTE | 2020-04-02 18:07 | Nephrology Progress Note ---
Date of Service April 02, 2020 Assessment & Plan (1) Acute worsening of stage 3 chronic kidney disease: Patient with stage 2 acute kidney injury on CKD. Baseline creatinine around 1.1-1.2 in November 2019. Creatinine plateau'd at first 10/9 in mid 2's but very slowly drifting down and plateau'd now low 2's. chemistries acceptable for now. No indication for dialysis. -Continue Lasix 100 mg IV 3 times daily and metolazone to 5 mg bid -daliy bmp -Monitor input output. -cont FR 1.5L -Avoid contrast unless lifesaving. -will follow peripherally for now -pls call if ? ->new /mild pancytopenia noted (2) Acute on chronic respiratory failure with hypoxia and hypercapnia: Likely multifactorial due to COPD and pulmonary edema. Continue nebulizers and steroids. Will continue Lasix to ensure patient is even to net negative as tolerated-this is approach for managing effusion since thoracentesis not an option clinically. Continue oxygen and BiPAP. (3) Paroxysmal ventricular tachycardia: challenging> provoked by stopping bipap even briefly and w/ few good management options; cardiology following closely Admission and Anticipated Discharge Date Admission Date: March 24, 2020 Subjective seen on rounds at 1040 this am. no c/o. did have 14s wide complex tachycardia late yesteday afternoon occurring w/ supper/off bipap> amio gtt resumed. no c/o at my evaluation except thirst. feels breathing ok; no edema Review of Systems Review of Systems: All systems reviewed & are unremarkable except as noted in HPI & below Physical Exam Constitutional: well developed and well nourished; no acute distress lyin gin bed on bipap Eyes: EOM intact bilaterally ENMT: Ears: no external ear abnormality Nose: no external nose abnormality Mouth: + dry oral mucous membranes Neck: no nuchal rigidity Respiratory: normal respiratory effort and + labored breathing Auscultation: + diminished lung sounds Cardiovascular: Rate/Rhythm: regular rate and regular rhythm Extremities: + edema (trace edema BL) Gastrointestinal (Abdomen): Inspection/Auscultation: normal bowel sounds Percussion/Palpation: abdomen soft; abdomen nontender Musculoskeletal: Extremities: strength 5/5 throughout Skin: no rashes, warm and dry Neurologic: montoya, fluent speech, no tremor Psychiatric: Orientation: alert and oriented x 3 Genitourinary: huang Results & Data ([facility]) Vital Signs (Past 12 Hours) Vital Signs Temp Pulse Pulse Resp BP Pulse Ox 04/02/20 15:46 36.8 C 81 18 127/70 97 04/02/20 11:35 36.7 C 65 20 134/52 L 97 04/02/20 07:06 36.5 C 76 24 127/62 97 Laboratory Results 04/02/20 04:22 04/02/20 04:22
[2020-04-02 20:36] LABS: Partial Thromboplastin Ratio 1.9
[2020-04-02 21:15] LABS: Partial Thromboplastin Time 51.8 Seconds (21.0-31.0)
[2020-04-03] MEDS: AMIODARONE / D5W 360 MG/200 ML BAG IV SCH ×2 (05:44→17:36)
[2020-04-03] MEDS: FUROSEMIDE 100 MG in SYRINGE 0 ML IV SCH ×3 (05:45→20:59)
[2020-04-03] MEDS: LEVOTHYROXINE SODIUM 200 MCG TABLET PO SCH (05:45)
[2020-04-03] MEDS: LEVOTHYROXINE SODIUM 25 MCG TABLET PO SCH (05:45)
[2020-04-03 07:27] LABS: Hematocrit (blood only) 29.6 % (42-52); Hemoglobin 9.2 g/dL (14.0-18.0); Mean Corpuscular Hemoglobin 26.4 pg (25-34); Mean Corpuscular Hgb Conc 31.1 g/dL (32-36); Mean Corpuscular Volume 84.8 fL (80-100); Mean Platelet Volume 9.2 fL (7.4-10.4); Platelet Count 110 K/uL (130-400); RDW Coefficient of Variation 17.3 % (11.5-14.5); RDW Standard Deviation 53.3 fL (36.4-46.3); Red Blood Count 3.49 M/uL (4.7-6.1); White Blood Count 4.09 K/uL (4.8-10.8)
[2020-04-03 07:51] LABS: INR 1.4 (0.9-1.1); Partial Thromboplastin Ratio 1.8; Prothrombin Time 14.3 Seconds (9.0-12.0)
[2020-04-03 07:54] LABS: BUN Creatinine Ratio 39.7 (10-20); Calcium 9.1 mg/dl (8.5-10.1); Creatinine Clr Calc Pharmacy 57.3 ml/min; Est GFR (African American) 36.1; Est GFR (Non-African American) 31.1; Magnesium 2.2 mg/dl (1.8-2.4); Potassium 3.6 mmol/L (3.5-5.1)
[2020-04-03 07:57] LABS: Partial Thromboplastin Time 48.9 Seconds (21.0-31.0)
[2020-04-03] MEDS ORDERED: NovoLIN-N (NPH) PER UNIT CHARGE SQ ONE (09:15)
[2020-04-03] MEDS: predniSONE 20 MG TAB PO SCH (09:16)
[2020-04-03] MEDS: DOXYCYCLINE HYCLATE 100 MG CAP PO SCH ×2 (09:16→20:58)
[2020-04-03] MEDS: metOLazone 5 MG TABLET PO SCH ×2 (09:16→12:49)
[2020-04-03] MEDS: FLUoxetine HCL 20 MG CAP PO SCH (09:16)
[2020-04-03] MEDS: METOPROLOL TARTRATE 25 MG TAB PO SCH ×2 (09:16→20:59)
[2020-04-03] MEDS: FLUoxetine HCL 10 MG CAP PO SCH (09:16)
[2020-04-03] MEDS: AMIODARONE 200 MG TAB PO SCH ×2 (09:17→17:32)
[2020-04-03] MEDS: PANTOprazole 40 MG TAB PO SCH ×2 (09:17→20:58)
[2020-04-03] MEDS: hydrALAZINE TAB 50 MG TAB PO SCH ×4 (09:17→20:57)
[2020-04-03] MEDS: INSULIN ASPART 100 UNITS/ML 3 ML PEN SC SCH ×4 (09:19→20:59)
[2020-04-03] MEDS: INSULIN GLARGINE SOLOSTAR 100 UNITS/ML 3 ML PEN SC SCH (09:20)
--- NOTE | 2020-04-03 11:42 | Cardiology Progress Note ---
Date of Service April 03, 2020 Assessment & Plan (1) Acute on chronic diastolic heart failure: (2) Atypical atrial flutter: (3) Paroxysmal ventricular tachycardia: (4) Obesity hypoventilation syndrome: (5) Acute worsening of stage 3 chronic kidney disease: Continue IV amiodarone for an additional 24 to 48 hours. Continue telemetry monitoring. Dose Coumadin for goal INR of 2.0-3.0. Continue IV heparin bridging at this time. Maintain negative fluid balance with IV Lasix plus metolazone. Repeat basic metabolic panel in a.m. Appreciate nephrology input. Prognosis remains poor. Continue conservative medical management at this time. Admission and Anticipated Discharge Date Admission Date: March 24, 2020 Subjective Patient seen and examined the bedside. Fluid balance -760 cc overnight. No recurrent ventricular tachycardia on telemetry. Remains in atrial fibrillation with controlled ventricular response. Patient wearing BiPAP majority of the d ay. He would like to talk about the timing of discharge. Review of Systems Review of Systems: All systems reviewed & are unremarkable except as noted in HPI & below Physical Exam Constitutional: + morbidly obese Respiratory: Auscultation: + wheezes (Bilateral expiratory); no crackles, no rales and no rhonchi Cardiovascular: Rate/Rhythm: + irregularly irregular Heart Sounds: normal S1 and normal S2; no murmur Vessels: radial pulses present; no JVD (Difficult to assess due to body habitus) Extremities: + edema (1-2+ lower extremity edema) Gastrointestinal (Abdomen): Inspection/Auscultation: abdomen normal to inspection and normal bowel sounds; abdomen not distended Percussion/Palpation: abdomen soft; abdomen nontender, no guarding and abdomen not rigid Skin: no rashes, warm and dry Neurologic: CN's II-XI intact bilaterally and moves all extremities; no focal motor deficits Motor/Sensory: no tremor Results & Data ([facility]) Vital Signs (Past 12 Hours) Vital Signs Temp Pulse Pulse Pulse Resp BP BP 04/03/20 08:29 36.6 C 63 16 106/63 04/03/20 04:09 36.8 C 72 18 119/68 04/03/20 03:39 73 20 04/03/20 00:01 36.9 C 62 18 106/65 Pulse Ox 04/03/20 08:29 98 04/03/20 04:09 98 04/03/20 03:39 96 04/03/20 00:01 98
[2020-04-03] MEDS: cefTRIAXone SODIUM 2,000 MG in DEXTROSE 5% 50 ML IV SCH (13:26)
[2020-04-03] MEDS: HEPARIN SODIUM/DEXTROSE 25,000 UNITS/500 ML BAG IV SCH (13:30)
--- NOTE | 2020-04-03 14:39 | Hospitalist Progress Note ---
Date of Service April 03, 2020 Assessment & Plan (1) Acute on chronic respiratory failure with hypoxia and hypercapnia: This is a 64-year-old male who has significant past medical history of chronic respiratory failure with hypoxia and hypercarbia, SAFIA/OHS, on BiPAP, chronic diastolic heart failure, COPD, insulin-dependent T2DM, hypothyroidism, bilateral lymphedema, CKD stage III, bedbound status who presents to ED via EMS secondary to worsening confusion x2 days and acute respiratory failure. Continue with BiPAP Remains reasonably stable (2) SAFIA (obstructive sleep apnea): (3) Acute metabolic encephalopathy: Encephalopathy Multifactorial : Acute on chronic hypoxemic, hypercapnic respiratory failure secondary to decompensated heart failure/COPD exacerbation, hx OHS ELVI possible Cardiorenal syndrome Complicated UTI, no sepsis Hyperammonemia, possible acute hepatic encephalopathy, possible chronic liver disease given fatty liver findings on abdominal ultrasound from 2000 Hypoglycemia, hx DM2 insulin requiring, reasonable control as of recent outpatient hemoglobin A1c of 7.22 November 2019 Gram positive bacteremia -possible contaminant, however for now will cover with IV antibiotics and will closely monitor, repeat blood cultures, repeat blood cultures negative We will continue intravenous ceftriaxone for now Lactulose for possible hepatic encephalopathy, liver ultrasound rule out chronic liver disease, may need GI consultation Ammonia level is normal and encephalopathy seems to be clearing up No more confusion (4) Atypical atrial flutter: Left atypical atrial flutter with RVR Appreciate cardiology input and recommendation Has been on amiodarone and intravenous heparin -Echo of the heart showed-this study was technically limited, RV is moderately dilated, RV systolic function is moderately reduced, LV chamber size was a small compared to RV chamber size, septal motion consistent with conduction abnor mality, LVEF grossly normal, moderate TR, dilated inferior vena cava of 3.5 cm estimated pulmonary artery pressure is 45 mmHg Remains stable clinically IV amiodarone has been changed to oral Has had 10 beats of V. tach and required to have back on intravenous amiodarone Has been feeling a lot better today-has been on intravenous amiodarone and will continue for now as per the knockout man (5) Paroxysmal ventricular tachycardia: Intravenous amiodarone Oral when appropriate (6) Acute on chronic diastolic heart failure: Appreciate cardiology input and recommendation Getting intravenous furosemide with metolazone Continue with intravenous furosemide 100 mg 3 times daily and metolazone 5 mg 2 times daily Diuresing enough-we will try to keep him on the drier feeder side (7) UTI (urinary tract infection): Urine culture grew E. coli which is pansensitive With intravenous ceftriaxone (8) Acute worsening of stage 3 chronic kidney disease: ELVI with oliguria-worsening renal function, despite IV diuretics Lasix-albumin given kidney dysfunction, Nephrology consulted, patient likely has ATN from hypoxia, hypercapnia in the setting of respiratory failure CT chest/abd/pelvis - obtained to better evaluate fluid status Per nephrology - increased dose IV Lasix to 100 mg IV every 8 hours and metolazone 5 mg twice daily We will monitor PRP and electrolytes Creatinine remains stable at 2.26-we will monitor PRP Creatinine remains stable (9) Diabetes mellitus, type 2: Continue with SSI (10) Anemia: (11) Obesity hypoventilation syndrome: As above Has been getting oral doxycycline as well for possible atypical infection Doxycycline, nebs, prednisone course for COPD exacerbatio (12) Hypertension: BP normal/on lower side Functional disability (patient's brother finding it more difficult to care for the patient at home as per patient niece). PT OT eval (13) Hypothyroidism: euthyroid as of current TSH (14) DVT prophylaxis: Has been on heparin IV Coumadin has been started INR 1.4 on 04/03/2020 Full code as per patient's niece/POA (Ms. Selam Cadet), she can be contacted at . Stable clinically Admission and Anticipated Discharge Date Admission Date: March 24, 2020 Subjective 03/31/2020 The patient was seen and examined in telemetry unit He has been feeling a lot better today Denies any significant symptoms 04/01/2020 The patient was seen and examined in telemetry unit He has been stable and feeling better Denies any symptoms at rest 04/02/2020 The patient was seen and examined in telemetry unit He remains stable and denies any symptoms He is bedbound and can do hardly anything for himself 04/03/2020 The patient was seen and examined in telemetry unit He remains stable and denies any symptoms He has been off BiPAP for eating Review of Systems 2 Review of Systems: All systems reviewed and are unremarkable except as noted below Constitutional: + malaise Neurologic: + generalized weakness; no confusion Physical Exam Physical Exam: Lying in bed comfortably Constitutional: well developed, well nourished, + ill appearing and + morbidly obese; no acute distress Eyes: PERRL, conjunctivae normal, anicteric sclerae ENMT: external ear and nose normal, oropharynx normal Neck: trachea midline, no thyromegaly Respiratory: normal respiratory effort; no respiratory distress Auscultation: + diminished lung sounds and + crackles (Minimal crackles at the bases) Cardiovascular: Rate/Rhythm: + abnormal rate and + abnormal rhythm Heart Sounds: no murmur Extremities: + edema (1+ chronic edema bilaterally) Gastrointestinal (Abdomen): Inspection/Auscultation: abdomen normal to inspection and normal bowel sounds; abdomen not distended Percussion/Palpation: abdomen soft; abdomen nontender Neurologic: moves all extremities; no focal motor deficits Psychiatric: A+Ox3, euthymic affect Lymphatic: no cervical or axillary lymphadenopathy Results & Data Results & Data ([facility]) Vital Signs (Past 12 Hours) Vital Signs Temp Pulse Pulse Pulse Resp BP BP 04/03/20 12:21 36.6 C 61 18 112/67 04/03/20 08:29 36.6 C 63 16 106/63 04/03/20 08:00 73 04/03/20 04:09 36.8 C 72 18 119/68 04/03/20 03:39 73 20 Pulse Ox 04/03/20 12:21 99 04/03/20 08:29 98 04/03/20 08:00 04/03/20 04:09 98 04/03/20 03:39 96 Laboratory Results Short CBC 04/03/20 Range/Units 07:18 WBC 4.09 L (4.8-10.8) K/uL Hgb 9.2 L (14.0-18.0) g/dL Hct 29.6 L (42-52) % Plt Count 110 L (130-400) K/uL BMP 04/03/20 07:18 Sodium 136 Potassium 3.6 Chloride 92 L Carbon Dioxide 36 H BUN 85 H Creatinine 2.14 H Glucose 99 Calcium 9.1 Medications Administered Current Inpatient Medications Acetaminophen (Acetaminophen 325 Mg Tab) 325 mg PO Q6H PRN PRN Reason: Mild Pain Stop: 04/23/20 23:49 Last Admin: 04/02/20 14:45 Dose: 325 mg Documented by: Albuterol (Albut/Ipratrop 3mg/0.5mg Neb 3 Ml Vial) 3 ml NEB Q2R PRN PRN Reason: Shortness Of Breath Stop: 04/28/20 14:59 Amiodarone HCl (Amiodarone 200 Mg Tab) 200 mg PO BIDM [facility] Stop: 05/01/20 16:59 Last Admin: 04/03/20 09:17 Dose: 200 mg Documented by: Dextrose (Dextrose 50% 50 Ml Syringe) 25 - 50 ml IV UD PRN; Protocol PRN Reason: Hypoglycemia Protocol Stop: 04/23/20 23:49 Doxycycline Hyclate (Doxycycline Hyclate 100 Mg Cap) 100 mg PO BID [facility] Stop: 04/04/20 20:59 Last Admin: 04/03/20 09:16 Dose: 100 mg Documented by: Fluoxetine HCl (Fluoxetine Hcl 20 Mg Cap) 20 mg PO DAILY [facility] Stop: 04/24/20 08:59 Last Admin: 04/03/20 09:16 Dose: 20 mg Documented by: Fluoxetine HCl (Fluoxetine Hcl 10 Mg Cap) 10 mg PO DAILY [facility] Stop: 04/24/20 08:59 Last Admin: 04/03/20 09:16 Dose: 10 mg Documented by: Glucagon (Glucagon For Inj 1 Mg Vial) 1 mg SQ UD PRN; Protocol PRN Reason: Hypoglycemia Protocol Stop: 04/23/20 23:49 Glucose (Glucose 10 Tabs/Tube) 4 - 8 tabs PO UD PRN; Protocol PRN Reason: Hypoglycemia Protocol Stop: 04/23/20 23:49 Glucose (Glucose 40% Gel 15 Gm Tube) 15 - 30 gm PO UD PRN; Protocol PRN Reason: Hypoglycemia Protocol Stop: 04/23/20 23:49 Hydralazine HCl (Hydralazine Tab 50 Mg Tab) 50 mg PO QID [facility] Stop: 04/24/20 08:59 Last Admin: 04/03/20 12:49 Dose: 50 mg Documented by: Furosemide 100 mg/ Syringe 10 mls @ 4 mls/min IV Q8 [facility] Stop: 04/25/20 13:59 Last Admin: 04/03/20 13:26 Dose: 4 mls/min Documented by: Ceftriaxone Sodium 2,000 mg/ (Dextrose) 70 mls @ 140 mls/hr IV DAILY@1400 [facility]; Protocol Stop: 04/05/20 14:14 Last Infusion: 04/03/20 14:31 Dose: Infused Documented by: Heparin Sodium/Dextrose (Heparin Sodium/Dextrose) 25,000 units in 500 mls @ 12 mls/hr IV .Q24H [facility]; Protocol Stop: 04/30/20 10:44 Last Admin: 04/03/20 13:30 Dose: 600 units/hr, 12 mls/hr Documented by: Amiodarone HCl/Dextrose (Nexterone / D5w) 360 mg in 200 mls @ 16.667 mls/hr IV .Q12H [facility] Stop: 05/01/20 17:44 Last Infusion: 04/03/20 07:23 Dose: 0.5 mg/min, 16.7 mls/hr Documented by: Insulin Aspart (Insulin Aspart 100 Units/Ml 3 Ml Pen) 0 units SC ACHS [facility] Stop: 04/30/20 16:29 Last Admin: 04/03/20 12:47 Dose: 9 units Documented by: Insulin Glargine (Insulin Glargine Solostar 100 Units/Ml 3 Ml Pen) 40 units SC QAM [facility] Stop: 04/28/20 08:59 Last Admin: 04/03/20 09:20 Dose: 40 units Documented by: Levothyroxine Sodium (Levothyroxine Sodium 25 Mcg Tablet) 25 mcg PO DAILYBB [facility] Stop: 04/27/20 09:59 Last Admin: 04/03/20 05:45 Dose: 25 mcg Documented by: Levothyroxine Sodium (Levothyroxine Sodium 200 Mcg Tablet) 200 mcg PO DAILYBB [facility] Stop: 04/28/20 06:29 Last Admin: 04/03/20 05:45 Dose: 200 mcg Documented by: Metolazone (Metolazone 5 Mg Tablet) 5 mg PO [id number] [facility] Stop: 05/01/20 13:59 Last Admin: 04/03/20 12:49 Dose: 5 mg Documented by: Metoprolol Tartrate (Metoprolol Tartrate 25 Mg Tab) 25 mg PO BID [facility] Stop: 04/28/20 08:59 Last Admin: 04/03/20 09:16 Dose: 25 mg Documented by: Miconazole Nitrate (Miconazole Nitrate Powder 43 Gm) 1 appln EXT PRN PRN PRN Reason: Affected Skin Folds Stop: 04/24/20 06:29 Miscellaneous (Carbohydrates For Hypoglycemia ) 15 - 30 gm PO UD PRN PRN Reason: Hypoglycemia Protocol Stop: 04/23/20 23:49 Miscellaneous Information (Pharmacy Glycemic Mgmt Consult) 1 ea N/A UD PRN PRN Reason: Consult Stop: 04/27/20 15:03 Nitroglycerin (Nitroglycerin Sl 0.4 Mg/Tab Tab) 0.4 mg SL UD PRN PRN Reason: Chest Pain Stop: 04/23/20 23:49 Pantoprazole Sodium (Pantoprazole 40 Mg Tab) 40 mg PO BID [facility] Stop: 04/24/20 08:59 Last Admin: 04/03/20 09:17 Dose: 40 mg Documented by: Prednisone (Prednisone 20 Mg Tab) 40 mg PO QAM [facility] Stop: 04/28/20 08:59 Last Admin: 04/03/20 09:16 Dose: 40 mg Documented by: Warfarin Sodium (Warfarin Sod 5 Mg Tab) 5 mg PO DAILY@1600 [facility] Stop: 05/01/20 15:59 Last Admin: 04/02/20 17:23 Dose: 5 mg Documented by:
[2020-04-03] MEDS: WARFARIN SOD 5 MG TAB PO SCH (17:31)
[2020-04-03] MEDS: ACETAMINOPHEN 325 MG TAB PO PRN (23:38)
[2020-04-04] MEDS: AMIODARONE / D5W 360 MG/200 ML BAG IV SCH ×2 (05:54→17:33)
[2020-04-04] MEDS: LEVOTHYROXINE SODIUM 25 MCG TABLET PO SCH (05:55)
[2020-04-04] MEDS: FUROSEMIDE 100 MG in SYRINGE 0 ML IV SCH ×3 (05:55→20:41)
[2020-04-04] MEDS: LEVOTHYROXINE SODIUM 200 MCG TABLET PO SCH (05:55)
[2020-04-04 07:27] LABS: INR 1.5 (0.9-1.1); Partial Thromboplastin Ratio 1.7; Prothrombin Time 15.7 Seconds (9.0-12.0)
[2020-04-04 07:29] LABS: Partial Thromboplastin Time 46.4 Seconds (21.0-31.0)
[2020-04-04 07:43] LABS: BUN Creatinine Ratio 43.8 (10-20); Calcium 9.7 mg/dl (8.5-10.1); Creatinine Clr Calc Pharmacy 56.8 ml/min; Est GFR (African American) 35.9; Est GFR (Non-African American) 30.9; Potassium 3.6 mmol/L (3.5-5.1)
[2020-04-04] MEDS ORDERED: NovoLIN-N (NPH) PER UNIT CHARGE SQ ONE (09:00)
[2020-04-04] MEDS: metOLazone 5 MG TABLET PO SCH ×2 (09:07→14:40)
[2020-04-04] MEDS: METOPROLOL TARTRATE 25 MG TAB PO SCH ×2 (09:08→20:43)
[2020-04-04] MEDS: hydrALAZINE TAB 50 MG TAB PO SCH ×4 (09:08→20:41)
[2020-04-04] MEDS: AMIODARONE 200 MG TAB PO SCH ×2 (09:08→17:27)
[2020-04-04] MEDS: PANTOprazole 40 MG TAB PO SCH ×2 (09:09→20:45)
[2020-04-04] MEDS: predniSONE 20 MG TAB PO SCH (09:09)
[2020-04-04] MEDS: DOXYCYCLINE HYCLATE 100 MG CAP PO SCH (09:09)
[2020-04-04] MEDS: FLUoxetine HCL 10 MG CAP PO SCH (09:09)
[2020-04-04] MEDS: ACETAMINOPHEN 325 MG TAB PO PRN ×2 (09:20→21:11)
[2020-04-04] MEDS: INSULIN GLARGINE SOLOSTAR 100 UNITS/ML 3 ML PEN SC SCH (09:21)
[2020-04-04] MEDS: INSULIN ASPART 100 UNITS/ML 3 ML PEN SC SCH ×4 (09:23→20:45)
--- NOTE | 2020-04-04 09:54 | Pharmacy Report ---
Pharmacy Glycemic Short Note 2 - Date of Service April 04, 2020 - Glycemic Short BSG Results (Last 24 hours): 04/03/20 04/03/20 04/03/20 11:49 16:34 20:18 Glucose POC Glucose 142 H 124 H 107 H 04/04/20 04/04/20 06:33 07:50 Glucose 81 POC Glucose 144 H OUTPATIENT ANTIDIABETIC REGIMEN: * Lantus 40 units + Novolog * A1c 5.7% ASSESSMENT: 04/04/20 * Blood sugars at goal, continue NPH 18 units with prednisone * Patient remains on Prednisone 40mg daily; IV Rocephin and PO Doxycycline; Heparin and amiodarone drips 04/02/20 * Blood sugars at goal, continue NPH with prednisone * Patient remains on Prednisone 40mg daily; IV Rocephin and PO Doxycycline 03/31/20 * Patient received total 77 units of insulin yesterday: 65 units basal + 12 units of bolus. * 65 units of basal included 40 units of Lantus and 25 units of NPH to correct steroid induced hyperglycemic caused by Prednisone 40 mg daily. * Fasting BSG today was 99, and patient continued to be NPO this AM. Therefore, the NPH dose was reduced by 50% to be given with Prednisone. * Patient is now ordered a diet with lunch. * Loosened Novolog CF/CR since lunch BSG was only 85. PLAN FOR INPATIENT GLYCEMIC CONTROL: * Basal insulin * Lantus 40 units sq qAM * NPH 18 units SQ daily with Prednisone * Bolus insulin: * NovoLog per scale ACHS or Q6hrs while NPO * Goal Range: Low 110 mg/dL - High 140 mg/dL * Correction Factor: 20 mg/dL/unit * Nutritional / Prandial insulin per carb ratio of 1 unit per 5 grams CHO consumed PLAN FOR DISCHARGE: * Recent A1c indicates excellent outpatient control, would continue current outpatient regimen if patient without significant hypoglycemic events.
--- NOTE | 2020-04-04 11:48 | Hospitalist Progress Note ---
Date of Service April 04, 2020 Assessment & Plan (1) Acute on chronic respiratory failure with hypoxia and hypercapnia: This is a 64-year-old male who has significant past medical history of chronic respiratory failure with hypoxia and hypercarbia, SAFIA/OHS, on BiPAP, chronic diastolic heart failure, COPD, insulin-dependent T2DM, hypothyroidism, bilateral lymphedema, CKD stage III, bedbound status who presents to ED via EMS secondary to worsening confusion x2 days and acute respiratory failure. Continue with BiPAP Remains reasonably stable (2) SAFIA (obstructive sleep apnea): (3) Acute metabolic encephalopathy: Encephalopathy Multifactorial : Acute on chronic hypoxemic, hypercapnic respiratory failure secondary to decompensated heart failure/COPD exacerbation, hx OHS ELVI possible Cardiorenal syndrome Complicated UTI, no sepsis Hyperammonemia, possible acute hepatic encephalopathy, possible chronic liver disease given fatty liver findings on abdominal ultrasound from 2000 Hypoglycemia, hx DM2 insulin requiring, reasonable control as of recent outpatient hemoglobin A1c of 7.22 November 2019 Gram positive bacteremia -possible contaminant, however for now will cover with IV antibiotics and will closely monitor, repeat blood cultures, repeat blood cultures negative We will continue intravenous ceftriaxone for now Lactulose for possible hepatic encephalopathy, liver ultrasound rule out chronic liver disease, may need GI consultation Ammonia level is normal and encephalopathy seems to be clearing up No more confusion (4) Atypical atrial flutter: Left atypical atrial flutter with RVR Appreciate cardiology input and recommendation Has been on amiodarone and intravenous heparin -Echo of the heart showed-this study was technically limited, RV is moderately dilated, RV systolic function is moderately reduced, LV chamber size was a small compared to RV chamber size, septal motion consistent with conduction abnor mality, LVEF grossly normal, moderate TR, dilated inferior vena cava of 3.5 cm estimated pulmonary artery pressure is 45 mmHg Remains stable clinically IV amiodarone has been changed to oral Has had 10 beats of V. tach and required to have back on intravenous amiodarone Has been feeling a lot better today-has been on intravenous amiodarone and will continue for now as per the pipe stress engineer Heart rate seems to be under control (5) Paroxysmal ventricular tachycardia: Intravenous amiodarone Oral when appropriate (6) Acute on chronic diastolic heart failure: Appreciate cardiology input and recommendation Getting intravenous furosemide with metolazone Continue with intravenous furosemide 100 mg 3 times daily and metolazone 5 mg 2 times daily Diuresing enough-we will try to keep him on the cylinder machine operator pulp drier side (7) UTI (urinary tract infection): Urine culture grew E. coli which is pansensitive With intravenous ceftriaxone (8) Acute worsening of stage 3 chronic kidney disease: ELVI with oliguria-worsening renal function, despite IV diuretics Lasix-albumin given kidney dysfunction, Nephrology consulted, patient likely has ATN from hypoxia, hypercapnia in the setting of respiratory failure CT chest/abd/pelvis - obtained to better evaluate fluid status Per nephrology - increased dose IV Lasix to 100 mg IV every 8 hours and metolazone 5 mg twice daily We will monitor PRP and electrolytes Creatinine remains stable at 2.26-we will monitor PRP Creatinine remains stable-creatinine is up today's 2.15 which seems to be quite stable We will continue current diuretics later PRP (9) Diabetes mellitus, type 2: Continue with SSI (10) Anemia: (11) Obesity hypoventilation syndrome: As above Has been getting oral doxycycline as well for possible atypical infection Doxycycline, nebs, prednisone course for COPD exacerbatio (12) Hypertension: BP normal/on lower side Functional disability (patient's brother finding it more difficult to care for the patient at home as per patient niece). PT OT eval (13) Hypothyroidism: euthyroid as of current TSH (14) DVT prophylaxis: Has been on heparin IV Coumadin has been started INR 1.5 as of 04/04/2020 Full code as per patient's niece/POA (Ms. Selam Cadet), she can be contacted at . Stable clinically Likely discharge in a day or 2 Admission and Anticipated Discharge Date Admission Date: March 24, 2020 Subjective 03/31/2020 The patient was seen and examined in telemetry unit He has been feeling a lot better today Denies any significant symptoms 04/01/2020 The patient was seen and examined in telemetry unit He has been stable and feeling better Denies any symptoms at rest 04/02/2020 The patient was seen and examined in telemetry unit He remains stable and denies any symptoms He is bedbound and can do hardly anything for himself 04/03/2020 The patient was seen and examined in telemetry unit He remains stable and denies any symptoms He has been off BiPAP for eating 04/04/2020 The patient was seen and examined in telemetry unit He is morbidly obese and remains stable in bed Denies any symptoms Review of Systems Review of Systems: All systems reviewed and are unremarkable except as noted below Constitutional: + malaise Neurologic: + generalized weakness; no confusion Physical Exam Physical Exam: Lying in bed comfortably Constitutional: well developed, well nourished, + ill appearing and + morbidly obese; no acute distress Eyes: PERRL, conjunctivae normal, anicteric sclerae ENMT: external ear and nose normal, oropharynx normal Neck: trachea midline, no thyromegaly Respiratory: normal respiratory effort; no respiratory distress Auscultation: + diminished lung sounds; no crackles (Minimal crackles at the bases) Cardiovascular: Rate/Rhythm: + abnormal rate and + abnormal rhythm Heart Sounds: no murmur Extremities: + edema (1+ chronic edema bilaterally) Gastrointestinal (Abdomen): Inspection/Auscultation: abdomen normal to inspec tion and normal bowel sounds; abdomen not distended Percussion/Palpation: abdomen soft; abdomen nontender Musculoskeletal: No acute arthritis involving any joint Neurologic: moves all extremities; no focal motor deficits Psychiatric: A+Ox3, euthymic affect Lymphatic: no cervical or axillary lymphadenopathy Results & Data Results & Data ([facility]) Vital Signs (Past 12 Hours) Vital Signs Temp Pulse Pulse Resp BP Pulse Ox 04/04/20 10:19 65 04/04/20 03:57 36.5 C 68 18 109/66 94 04/04/20 03:42 70 19 97 04/04/20 00:00 73 Laboratory Results [facility] 04/04/20 06:33 Sodium 134 L Potassium 3.6 Chloride 91 L Carbon Dioxide 39 H BUN 94 H Creatinine 2.15 H Glucose 81 Calcium 9.7 Medications Administered Current Inpatient Medications Acetaminophen (Acetaminophen 325 Mg Tab) 325 mg PO Q6H PRN PRN Reason: Mild Pain Stop: 04/23/20 23:49 Last Admin: 04/04/20 09:20 Dose: 325 mg Documented by: Albuterol (Albut/Ipratrop 3mg/0.5mg Neb 3 Ml Vial) 3 ml NEB Q2R PRN PRN Reason: Shortness Of Breath Stop: 04/28/20 14:59 Amiodarone HCl (Amiodarone 200 Mg Tab) 200 mg PO BIDM [facility] Stop: 05/01/20 16:59 Last Admin: 04/04/20 09:08 Dose: 200 mg Documented by: Dextrose (Dextrose 50% 50 Ml Syringe) 25 - 50 ml IV UD PRN; Protocol PRN Reason: Hypoglycemia Protocol Stop: 04/23/20 23:49 Doxycycline Hyclate (Doxycycline Hyclate 100 Mg Cap) 100 mg PO BID [facility] Stop: 04/04/20 20:59 Last Admin: 04/04/20 09:09 Dose: 100 mg Documented by: Fluoxetine HCl (Fluoxetine Hcl 20 Mg Cap) 20 mg PO DAILY [facility] Stop: 04/24/20 08:59 Last Admin: 04/03/20 09:16 Dose: 20 mg Documented by: Fluoxetine HCl (Fluoxetine Hcl 10 Mg Cap) 10 mg PO DAILY [facility] Stop: 04/24/20 08:59 Last Admin: 04/04/20 09:09 Dose: 10 mg Documented by: Glucagon (Glucagon For Inj 1 Mg Vial) 1 mg SQ UD PRN; Protocol PRN Reason: Hypoglycemia Protocol Stop: 04/23/20 23:49 Glucose (Glucose 10 Tabs/Tube) 4 - 8 tabs PO UD PRN; Protocol PRN Reason: Hypoglycemia Protocol Stop: 04/23/20 23:49 Glucose (Glucose 40% Gel 15 Gm Tube) 15 - 30 gm PO UD PRN; Protocol PRN Reason: Hypoglycemia Protocol Stop: 04/23/20 23:49 Hydralazine HCl (Hydralazine Tab 50 Mg Tab) 50 mg PO QID [facility] Stop: 04/24/20 08:59 Last Admin: 04/04/20 09:08 Dose: 50 mg Documented by: Furosemide 100 mg/ Syringe 10 mls @ 4 mls/min IV Q8 [facility] Stop: 04/25/20 13:59 Last Admin: 04/04/20 05:55 Dose: 4 mls/min Documented by: Ceftriaxone Sodium 2,000 mg/ (Dextrose) 70 mls @ 140 mls/hr IV DAILY@1400 [facility]; Protocol Stop: 04/05/20 14:14 Last Infusion: 04/03/20 14:31 Dose: Infused Documented by: Heparin Sodium/Dextrose (Heparin Sodium/Dextrose) 25,000 units in 500 mls @ 12 mls/hr IV .Q24H [facility]; Protocol Stop: 04/30/20 10:44 Last Titration: 04/04/20 07:31 Dose: 600 units/hr, 12 mls/hr Documented by: Amiodarone HCl/Dextrose (Nexterone / D5w) 360 mg in 200 mls @ 16.667 mls/hr IV .Q12H [facility] Stop: 05/01/20 17:44 Last Admin: 04/04/20 05:54 Dose: 0.5 mg/min, 16.7 mls/hr Documented by: Insulin Aspart (Insulin Aspart 100 Units/Ml 3 Ml Pen) 0 units SC ACHS [facility] Stop: 04/30/20 16:29 Last Admin: 04/04/20 09:23 Dose: 11 units Documented by: Insulin Glargine (Insulin Glargine Solostar 100 Units/Ml 3 Ml Pen) 40 units SC QAM [facility] Stop: 04/28/20 08:59 Last Admin: 04/04/20 09:21 Dose: 40 units Documented by: Levothyroxine Sodium (Levothyroxine Sodium 25 Mcg Tablet) 25 mcg PO DAILYBB [facility] Stop: 04/27/20 09:59 Last Admin: 04/04/20 05:55 Dose: 25 mcg Documented by: Levothyroxine Sodium (Levothyroxine Sodium 200 Mcg Tablet) 200 mcg PO DAILYBB [facility] Stop: 04/28/20 06:29 Last Admin: 04/04/20 05:55 Dose: 200 mcg Documented by: Metolazone (Metolazone 5 Mg Tablet) 5 mg PO [id number] [facility] Stop: 05/01/20 13:59 Last Admin: 04/04/20 09:07 Dose: 5 mg Documented by: Metoprolol Tartrate (Metoprolol Tartrate 25 Mg Tab) 25 mg PO BID [facility] Stop: 04/28/20 08:59 Last Admin: 04/04/20 09:08 Dose: 25 mg Documented by: Miconazole Nitrate (Miconazole Nitrate Powder 43 Gm) 1 appln EXT PRN PRN PRN Reason: Affected Skin Folds Stop: 04/24/20 06:29 Miscellaneous (Carbohydrates For Hypoglycemia ) 15 - 30 gm PO UD PRN PRN Reason: Hypoglycemia Protocol Stop: 04/23/20 23:49 Miscellaneous Information (Pharmacy Glycemic Mgmt Consult) 1 ea N/A UD PRN PRN Reason: Consult Stop: 04/27/20 15:03 Nitroglycerin (Nitroglycerin Sl 0.4 Mg/Tab Tab) 0.4 mg SL UD PRN PRN Reason: Chest Pain Stop: 04/23/20 23:49 Pantoprazole Sodium (Pantoprazole 40 Mg Tab) 40 mg PO BID [facility] Stop: 04/24/20 08:59 Last Admin: 04/04/20 09:09 Dose: 40 mg Documented by: Prednisone (Prednisone 20 Mg Tab) 40 mg PO QAM [facility] Stop: 04/28/20 08:59 Last Admin: 04/04/20 09:09 Dose: 40 mg Documented by: Warfarin Sodium (Warfarin Sod 5 Mg Tab) 5 mg PO DAILY@1600 [facility] Stop: 05/01/20 15:59 Last Admin: 04/03/20 17:31 Dose: 5 mg Documented by:
[2020-04-04] MEDS: FLUoxetine HCL 20 MG CAP PO SCH (12:01)
[2020-04-04] MEDS: HEPARIN SODIUM/DEXTROSE 25,000 UNITS/500 ML BAG IV SCH (12:02)
--- NOTE | 2020-04-04 13:19 | Cardiology Progress Note ---
Date of Service April 04, 2020 Assessment & Plan (1) Acute on chronic diastolic heart failure: (2) Atypical atrial flutter: (3) Paroxysmal ventricular tachycardia: (4) Obesity hypoventilation syndrome: (5) Acute worsening of stage 3 chronic kidney disease: Continue IV amiodarone for an additional 24. Transition to p.o. amiodarone in a.m. if no recurrent ventricular tachycardia overnight. Continue telemetry monitoring. Dose Coumadin for goal INR of 2.0-3.0. Continue IV heparin bridging at this time. Maintain negative fluid balance with IV Lasix plus metolazone. Repeat basic metabolic panel in a.m. Appreciate nephrology input. Patient encouraged to minimize use of BiPAP during waking hours. If he continues to progress clinically, will attempt to move to bedside chair tomorrow. Repeat ECG in a.m. Prognosis remains poor. Continue conservative medical management at this time. Admission and Anticipated Discharge Date Admission Date: March 24, 2020 Subjective Patient seen and examined the bedside. More alert today. No recurrent ventricular tachycardia on telemetry. Rhythm remains atrial fibrillation with adequate rate control. Fluid balance negative approximately 1700 cc over the past 24 hours. Creatinine trending downward. Review of Systems Review of Systems: All systems reviewed & are unremarkable except as noted in HPI & below Physical Exam Constitutional: + morbidly obese Respiratory: Auscultation: + wheezes (Bilateral expiratory); no crackles, no rales and no rhonchi Cardiovascular: Rate/Rhythm: + irregularly irregular Heart Sounds: normal S1 and normal S2; no murmur Vessels: radial pulses present; no JVD (Difficult to assess due to body habitus) Extremities: + edema (1-2+ lower extremity edema) Gastrointestinal (Abdomen): Inspection/Auscultation: abdomen normal to inspection and normal bowel sounds; abdomen not distended Percussion/Palpation: abdomen soft; abdomen nontender, no guarding and abdomen not rigid Skin: no rashes, warm and dry Neurologic: CN's II-XI intact bilaterally and moves all extremities; no focal motor deficits Motor/Sensory: no tremor Results & Data ([facility] [place]) Vital Signs (Past 12 Hours) Vital Signs Temp Pulse Pulse Resp BP Pulse Ox 04/04/20 10:19 65 04/04/20 03:57 36.5 C 68 18 109/66 94 04/04/20 03:42 70 19 97
[2020-04-04] MEDS: cefTRIAXone SODIUM 2,000 MG in DEXTROSE 5% 50 ML IV SCH (14:39)
[2020-04-04] MEDS: WARFARIN SOD 5 MG TAB PO SCH (17:27)
[2020-04-05] MEDS: AMIODARONE / D5W 360 MG/200 ML BAG IV SCH (05:27)
[2020-04-05] MEDS: FUROSEMIDE 100 MG in SYRINGE 0 ML IV SCH ×3 (05:27→20:54)
[2020-04-05] MEDS: LEVOTHYROXINE SODIUM 200 MCG TABLET PO SCH (05:28)
[2020-04-05] MEDS: LEVOTHYROXINE SODIUM 25 MCG TABLET PO SCH (05:28)
[2020-04-05] MEDS: HEPARIN SODIUM/DEXTROSE 25,000 UNITS/500 ML BAG IV SCH (05:36)
[2020-04-05 07:26] LABS: Hematocrit (blood only) 29.5 % (42-52); Hemoglobin 9.2 g/dL (14.0-18.0); Immature Granulocytes # (auto) 0.01 K/uL (0.00-0.02); Immature Granulocytes % (auto) 0.2 %; Lymphocytes # (auto) 0.93 K/uL (1.2-3.4); Lymphocytes % (auto) 21.8 %; Mean Corpuscular Hemoglobin 26.1 pg (25-34); Mean Corpuscular Hgb Conc 31.2 g/dL (32-36); Mean Corpuscular Volume 83.8 fL (80-100); Mean Platelet Volume 10.7 fL (7.4-10.4); Monocytes # (auto) 0.38 K/uL (0.11-0.59); Monocytes % (auto) 8.9 %; Neutrophils # (auto) 2.94 K/uL (1.4-6.5); Neutrophils % (auto) 69.1 %; Platelet Count 126 K/uL (130-400); RDW Coefficient of Variation 16.9 % (11.5-14.5); RDW Standard Deviation 51.6 fL (36.4-46.3); Red Blood Count 3.52 M/uL (4.7-6.1); White Blood Count 4.26 K/uL (4.8-10.8)
[2020-04-05 07:38] LABS: INR 1.6 (0.9-1.1); Partial Thromboplastin Ratio 1.4; Partial Thromboplastin Time 40.2 Seconds (21.0-31.0); Prothrombin Time 16.2 Seconds (9.0-12.0)
[2020-04-05 07:48] LABS: Target Cells 1+
[2020-04-05 07:53] LABS: BUN Creatinine Ratio 43.5 (10-20); Calcium 9.8 mg/dl (8.5-10.1); Creatinine Clr Calc Pharmacy 54.5 ml/min; Est GFR (African American) 34.7; Est GFR (Non-African American) 29.9; Magnesium 1.9 mg/dl (1.8-2.4); Potassium 3.7 mmol/L (3.5-5.1)
[2020-04-05] MEDS: INSULIN ASPART 100 UNITS/ML 3 ML PEN SC SCH ×4 (08:20→21:00)
[2020-04-05] MEDS: hydrALAZINE TAB 50 MG TAB PO SCH ×4 (08:21→20:54)
[2020-04-05] MEDS: FLUoxetine HCL 10 MG CAP PO SCH (08:21)
[2020-04-05] MEDS: FLUoxetine HCL 20 MG CAP PO SCH (08:22)
[2020-04-05] MEDS: PANTOprazole 40 MG TAB PO SCH ×2 (08:22→20:54)
[2020-04-05] MEDS: metOLazone 5 MG TABLET PO SCH ×2 (08:22→13:24)
[2020-04-05] MEDS: predniSONE 20 MG TAB PO SCH (08:23)
[2020-04-05] MEDS: INSULIN GLARGINE SOLOSTAR 100 UNITS/ML 3 ML PEN SC SCH (08:24)
[2020-04-05] MEDS: METOPROLOL TARTRATE 25 MG TAB PO SCH ×2 (08:24→20:54)
[2020-04-05] MEDS: AMIODARONE 200 MG TAB PO SCH ×2 (08:26→16:58)
[2020-04-05] MEDS: ACETAMINOPHEN 325 MG TAB PO PRN ×2 (08:29→20:53)
--- NOTE | 2020-04-05 09:08 | Electrocardiogram Report ---
Test Reason : Blood Pressure : / mmHG Vent. Rate : 071 BPM Atrial Rate : 000 BPM P-R Int : 000 ms QRS Dur : 196 ms QT Int : 492 ms P-R-T Axes : 000 -04 151 degrees QTc Int : 534 ms Probable Atrial flutter with variable A-V block Non-specific intra-ventricular conduction delay Abnormal ECG When compared with ECG of 31-MAR-2020 09:03, No significant change Confirmed by Dez Jurado ([id number]) on 04/05/2020 9:08:03 AM Referred By: REFERRED SELF Confirmed By:Dez Jurado
--- NOTE | 2020-04-05 09:46 | Cardiology Progress Note ---
Date of Service April 05, 2020 Assessment & Plan (1) Atypical atrial flutter: (2) Paroxysmal ventricular tachycardia: (3) Pleural effusion: (4) Obesity hypoventilation syndrome: (5) Acute on chronic respiratory failure with hypoxia and hypercapnia: (6) CHF exacerbation: Discontinue IV amiodarone Continue oral amiodarone EKG AM Continue telemetry monitoring Dose Coumadin for goal INR of 2.0-3.0. Continue IV heparin bridging at this time. Continue IV furosemide and oral metolazone as presently prescribed Basic metabolic panel in the AM BiPAP QHS and when napping during the day Poor prognosis. Conservative medical management Admission and Anticipated Discharge Date Admission Date: March 24, 2020 Supervising Physician Co-Signing Physician Notes Patient seen and examined at the bedside. No recurrent ventricular tachycardia on telemetry. Denies chest discomfort or shortness of breath at rest. Edema unchanged. Fluid balance negative. Renal function remained stable. PE: VSS, Gen: NAD, AAOx3, morbid obesity. Heart: Irregular rhythm, normal S1-S2, distant heart sounds. No murmur. Lungs: Diminished breath sounds bilaterally. Scattered rhonchi. No wheeze or rales appreciated. Extremities: 2+ bilateral pitting ankle and pretibial edema. A/P: Agree with above PA-C history, physical exam, assessment and plan. Discontinue IV amiodarone. Continue oral amiodarone. Dose Coumadin for goal INR of 2.0-3.0. Monitor telemetry during hospitalization. Encourage activity, out of bed to chair today. Utilize BiPAP during naps and nightly. Subjective Patient seen and examined. Chart, medications, telemetry reviewed. Feeling OK. I/O's: Negative 13,333.7 mL overall Telemetry: Atrial fibrillation/flutter typically in the 60's and 70's IVCD. No VT. EKG: Atrial fibrillation/flutter with variable A-V block, non-specific intra- ventricular conduction delay, QTc 534 ms. Review of Systems Review of Systems: All systems reviewed & are unremarkable except as noted in HPI & below Constitutional: + fatigue Respiratory: + dyspnea; no chest congestion and no hemoptysis Cardiovascular: + orthopnea and + edema; no chest pain, no palpitations and no syncope Gastrointestinal: no nausea and no vomiting Physical Exam Physical Exam: General: [place] to person and place. NAD. HEENT: Normocephalic. Atraumatic. PER. Conjunctiva pink, sclera pale. Neck: No carotid bruits. I could not appreciate his neck veins. Heart: Distant heart sounds. Irregularly irregular. No murmur. Lungs: Clear anteriorly. Abdomen: +BS. Soft. Nontender. No organomegaly. Extremities: 1-2+ edema. No cyanosis. No pulses. Limited neurological examination is without focal deficits. Results & Data ([facility]) Vital Signs (Past 12 Hours) Vital Signs Temp Pulse Pulse Resp BP BP Pulse Ox 04/05/20 07:03 36.5 C 73 20 114/60 98 04/05/20 03:59 36.8 C 64 18 103/64 97 04/05/20 03:17 68 20 98 04/04/20 23:05 36.8 C 63 18 106/67 97 04/04/20 21:50 71 24 98 Laboratory Results Laboratory Results - last 24 hr 04/04/20 04/04/20 04/04/20 11:51 16:38 20:21 WBC RBC Hgb Hct MCV MCH MCHC RDW Std Deviation RDW Coeff of Neena Plt Count MPV Immature Gran % (Auto) Neut % (Auto) Lymph % (Auto) [place] % (Auto) Eos % (Auto) Baso % (Auto) Neut # (Auto) Lymph # (Auto) [place] # (Auto) Eos # (Auto) Baso # (Auto) Immature Gran # (Auto) Target Cells PT INR APTT PTT Ratio Sodium Potassium Chloride Carbon Dioxide Anion Gap BUN Creatinine Est Cr Clr Drug Dosing Est GFR ( Amer) Est GFR (Non-Af Amer) BUN/Creatinine Ratio Glucose POC Glucose 141 H 188 H 200 H Calcium Magnesium 04/05/20 04/05/20 04/05/20 06:46 06:46 06:46 WBC 4.26 L RBC 3.52 L Hgb 9.2 L Hct 29.5 L MCV 83.8 MCH 26.1 MCHC 31.2 L RDW Std Deviation 51.6 H RDW Coeff of Neena 16.9 H Plt Count 126 L MPV 10.7 H Immature Gran % (Auto) 0.2 Neut % (Auto) 69.1 Lymph % (Auto) 21.8 [place] % (Auto) 8.9 Eos % (Auto) 0.0 Baso % (Auto) 0.0 Neut # (Auto) 2.94 Lymph # (Auto) 0.93 L [place] # (Auto) 0.38 Eos # (Auto) 0.00 Baso # (Auto) 0.00 Immature Gran # (Auto) 0.01 Target Cells 1+ PT 16.2 H INR 1.6 H APTT 40.2 H PTT Ratio 1.4 Sodium 135 L Potassium 3.7 Chloride 91 L Carbon Dioxide 39 H Anion Gap 5.0 BUN 96 H Creatinine 2.21 H Est Cr Clr Drug Dosing 54.5 Est GFR ( Amer) 34.7 Est GFR (Non-Af Amer) 29.9 BUN/Creatinine Ratio 43.5 H Glucose 162 H POC Glucose Calcium 9.8 Magnesium 1.9 04/05/20 07:33 WBC RBC Hgb Hct MCV MCH MCHC RDW Std Deviation RDW Coeff of Neena Plt Count MPV Immature Gran % (Auto) Neut % (Auto) Lymph % (Auto) [place] % (Auto) Eos % (Auto) Baso % (Auto) Neut # (Auto) Lymph # (Auto) [place] # (Auto) Eos # (Auto) Baso # (Auto) Immature Gran # (Auto) Target Cells PT INR APTT PTT Ratio Sodium Potassium Chloride Carbon Dioxide Anion Gap BUN Creatinine Est Cr Clr Drug Dosing Est GFR ( Amer) Est GFR (Non-Af Amer) BUN/Creatinine Ratio Glucose POC Glucose 173 H Calcium Magnesium (1) CHF exacerbation Heart failure type: unspecified Qualified Code(s): I50.9 - Heart failure, unspecified
--- NOTE | 2020-04-05 11:10 | Progress Notes ---
DATE: 04/05/2020 SUBJECTIVE: Overnight, no new issues. The patient is making about 4 liters of urine. Vital signs appear stable. The patient feels breathing is better by about 50%. Labs are stable. OBJECTIVE: VITAL SIGNS: Blood pressure 114/60, pulse rate 73, temperature 36.5 degrees Celsius, 98% on 3 liter nasal cannula. HEENT: Mucous membranes moist. NECK: Obese. Cannot appreciate JVD. CHEST: Bilateral decreased breath sounds, occasional crackles. CARDIOVASCULAR: S1, S2 irregular. Soft systolic murmur heard. ABDOMEN: Soft, obese, nontender. EXTREMITIES: Shows 1-2+ edema. Has a Block catheter. LABORATORY TESTS: Reviewed. Creatinine is 2.21 and creatinine has been fairly stable in the low to mid 2s for more than a week now. BUN 96. Sodium 135, potassium 3.7, chloride 91, bicarb 39. ASSESSMENT AND PLAN: A 64-year-old male with acute worsening of stage III chronic kidney disease in the setting of respiratory failure with hypoxia and hypercapnia. Acute on chronic CHFIs the primary reason why short of breath. RECOMMENDATIONS: For the time being continue Lasix and metolazone as is being done. As long as creatinine and BUN remains stable, we will continue the same to maximize diuresis and improve his fluid status. MTDD
[2020-04-05] MEDS ORDERED: HEPARIN IV BOLUS 10,000 UNITS in SYRINGE 0 ML IV ONE (13:15)
[2020-04-05] MEDS: cefTRIAXone SODIUM 2,000 MG in DEXTROSE 5% 50 ML IV SCH (13:28)
--- NOTE | 2020-04-05 14:55 | Hospitalist Progress Note ---
Date of Service April 05, 2020 Assessment & Plan (1) Acute on chronic respiratory failure with hypoxia and hypercapnia: This is a 64-year-old male who has significant past medical history of chronic respiratory failure with hypoxia and hypercarbia, SAFIA/OHS, on BiPAP, chronic diastolic heart failure, COPD, insulin-dependent T2DM, hypothyroidism, bilateral lymphedema, CKD stage III, bedbound status who presents to ED via EMS secondary to worsening confusion x2 days and acute respiratory failure. Continue with BiPAP Remains reasonably stable (2) SAFIA (obstructive sleep apnea): (3) Acute metabolic encephalopathy: Encephalopathy Multifactorial : Acute on chronic hypoxemic, hypercapnic respiratory failure secondary to decompensated heart failure/COPD exacerbation, hx OHS ELVI possible Cardiorenal syndrome Complicated UTI, no sepsis Hyperammonemia, possible acute hepatic encephalopathy, possible chronic liver disease given fatty liver findings on abdominal ultrasound from 2000 Hypoglycemia, hx DM2 insulin requiring, reasonable control as of recent outpatient hemoglobin A1c of 7.22 November 2019 Gram positive bacteremia -possible contaminant, however for now will cover with IV antibiotics and will closely monitor, repeat blood cultures, repeat blood cultures negative We will continue intravenous ceftriaxone for now Lactulose for possible hepatic encephalopathy, liver ultrasound rule out chronic liver disease, may need GI consultation Ammonia level is normal and encephalopathy seems to be clearing up No more confusion (4) Atypical atrial flutter: Left atypical atrial flutter with RVR Appreciate cardiology input and recommendation Has been on amiodarone and intravenous heparin -Echo of the heart showed-this study was technically limited, RV is moderately dilated, RV systolic function is moderately reduced, LV chamber size was a small compared to RV chamber size, septal motion consistent with conduction abnor mality, LVEF grossly normal, moderate TR, dilated inferior vena cava of 3.5 cm estimated pulmonary artery pressure is 45 mmHg Remains stable clinically IV amiodarone has been changed to oral Has had 10 beats of V. 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 IV amiodarone has been stopped and will continue with oral amiodarone for now Heart rate is controlled (5) Paroxysmal ventricular tachycardia: Intravenous amiodarone Oral when appropriate (6) Acute on chronic diastolic heart failure: Appreciate cardiology input and recommendation Getting intravenous furosemide with metolazone Continue with intravenous furosemide 100 mg 3 times daily and metolazone 5 mg 2 times daily Diuresing enough-we will try to 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 coli which is pansensitive With intravenous ceftriaxone (8) Acute worsening of stage 3 chronic kidney disease: ELVI with oliguria-worsening renal function, despite IV diuretics Lasix-albumin given kidney dysfunction, Nephrology consulted, patient likely has ATN from hypoxia, hypercapnia in the setting of respiratory failure CT chest/abd/pelvis - obtained to better evaluate fluid status Per nephrology - increased dose IV Lasix to 100 mg IV every 8 hours and metolazone 5 mg twice daily We will monitor PRP and electrolytes Creatinine remains stable at 2.26-we will monitor PRP Creatinine remains stable-creatinine is up today's 2.15 which seems to be quite stable Kidney function remains stable so far (9) Diabetes mellitus, type 2: Continue with SSI (10) Anemia: (11) Obesity hypoventilation syndrome: As above Has been getting oral doxycycline as well for possible atypical infection Doxycycline, nebs, prednisone course for COPD exacerbatio (12) Hypertension: BP normal/on lower side Functional disability (patient's brother finding it more difficult to care for the patient at home as per patient niece). PT OT eval (13) Hypothyroidism: euthyroid as of current TSH (14) DVT prophylaxis: Has been on heparin IV Coumadin has been started INR 1.5 as of 04/04/2020 Full code as per patient's niece/POA (Ms. Selam Cadet), she can be contacted at . Stable clinically Likely discharge in a day or 2 Admission and Anticipated Discharge Date Admission Date: March 24, 2020 Subjective 03/31/2020 The patient was seen and examined in telemetry unit He has been feeling a lot better today Denies any significant symptoms 04/01/2020 The patient was seen and examined in telemetry unit He has been stable and feeling better Denies any symptoms at rest 04/02/2020 The patient was seen and examined in telemetry unit He remains stable and denies any symptoms He is bedbound and can do hardly anything for himself 04/03/2020 The patient was seen and examined in telemetry unit He remains stable and denies any symptoms He has been off BiPAP for eating 04/04/2020 The patient was seen and examined in telemetry unit He is morbidly obese and remains stable in bed Denies any symptoms 04/05/2020 The patient was seen and examined in telemetry unit He has been stable for the last few days The heart rate is controlled and denies any cardiac symptoms He is diuresing enough Review of Systems Review of Systems: All systems reviewed and are unremarkable except as noted below Constitutional: + malaise Neurologic: + generalized weakness; no confusion Physical Exam Physical Exam: Lying in bed comfortably Constitutional: well developed, well nourished, + ill appearing and + morbidly obese; no acute distress Eyes: PERRL, conjunctivae normal, anicteric sclerae ENMT: external ear and nose normal, oropharynx normal Neck: trachea midline, no thyromegaly Respiratory: normal respiratory effort; no respiratory distress Auscultation: + diminished lung sounds; no crackles (Minimal crackles at the bases) Cardiovascular: Rate/Rhythm: + abnormal rate and + abnormal rhythm Heart Sounds: no murmur Extremities: + edema (1+ chronic edema bilaterally) Gastrointestinal (Abdomen): Inspection/Auscultation: abdomen normal to inspection and normal bowel sounds; abdomen not distended Percussion/Palpation: abdomen soft; abdomen nontender Musculoskeletal: Acute arthritis involving any joint Neurologic: moves all extremities; no focal motor deficits Psychiatric: A+Ox3, euthymic affect Lymphatic: no cervical or axillary lymphadenopathy Results & Data Results & Data ([facility]) Vital Signs (Past 12 Hours) Vital Signs Temp Pulse Pulse Pulse Resp BP Pulse Ox 04/05/20 11:57 36.7 C 73 20 114/60 97 04/05/20 07:03 36.5 C 73 20 114/60 98 04/05/20 03:59 36.8 C 64 18 103/64 97 04/05/20 03:17 68 20 98 Laboratory Results Short CBC 04/05/20 Range/Units 06:46 WBC 4.26 L (4.8-10.8) K/uL Hgb 9.2 L (14.0-18.0) g/dL Hct 29.5 L (42-52) % Plt Count 126 L (130-400) K/uL BMP 04/05/20 06:46 Sodium 135 L Potassium 3.7 Chloride 91 L Carbon Dioxide 39 H BUN 96 H Creatinine 2.21 H Glucose 162 H Calcium 9.8 Medications Administered Current Inpatient Medications Acetaminophen (Acetaminophen 325 Mg Tab) 325 mg PO Q6H PRN PRN Reason: Mild Pain Stop: 04/23/20 23:49 Last Admin: 04/05/20 08:29 Dose: 325 mg Documented by: Albuterol (Albut/Ipratrop 3mg/0.5mg Neb 3 Ml Vial) 3 ml NEB Q2R PRN PRN Reason: Shortness Of Breath Stop: 04/28/20 14:59 Amiodarone HCl (Amiodarone 200 Mg Tab) 200 mg PO BIDM [facility] Stop: 05/01/20 16:59 Last Admin: 04/05/20 08:26 Dose: 200 mg Documented by: Dextrose (Dextrose 50% 50 Ml Syringe) 25 - 50 ml IV UD PRN; Protocol PRN Reason: Hypoglycemia Protocol Stop: 04/23/20 23:49 Fluoxetine HCl (Fluoxetine Hcl 20 Mg Cap) 20 mg PO DAILY [facility] Stop: 04/24/20 08:59 Last Admin: 04/05/20 08:22 Dose: 20 mg Documented by: Fluoxetine HCl (Fluoxetine Hcl 10 Mg Cap) 10 mg PO DAILY [facility] Stop: 04/24/20 08:59 Last Admin: 04/05/20 08:21 Dose: 10 mg Documented by: Glucagon (Glucagon For Inj 1 Mg Vial) 1 mg SQ UD PRN; Protocol PRN Reason: Hypoglycemia Protocol Stop: 04/23/20 23:49 Glucose (Glucose 10 Tabs/Tube) 4 - 8 tabs PO UD PRN; Protocol PRN Reason: Hypoglycemia Protocol Stop: 04/23/20 23:49 Glucose (Glucose 40% Gel 15 Gm Tube) 15 - 30 gm PO UD PRN; Protocol PRN Reason: Hypoglycemia Protocol Stop: 04/23/20 23:49 Hydralazine HCl (Hydralazine Tab 50 Mg Tab) 50 mg PO QID [facility] Stop: 04/24/20 08:59 Last Admin: 04/05/20 12:22 Dose: 50 mg Documented by: Furosemide 100 mg/ Syringe 10 mls @ 4 mls/min IV Q8 [facility] Stop: 04/25/20 13:59 Last Admin: 04/05/20 13:24 Dose: 4 mls/min Documented by: Heparin Sodium/Dextrose (Heparin Sodium/Dextrose) 25,000 units in 500 mls @ 22 mls/hr IV .[id number] [facility]; Protocol Stop: 04/30/20 10:44 Last Titration: 04/05/20 13:03 Dose: 1,100 units/hr, 22 mls/hr Documented by: Insulin Aspart (Insulin Aspart 100 Units/Ml 3 Ml Pen) 0 units SC ACHS [facility] Stop: 04/30/20 16:29 Last Admin: 04/05/20 12:21 Dose: 12 units Documented by: Insulin Glargine (Insulin Glargine Solostar 100 Units/Ml 3 Ml Pen) 40 units SC QAM [facility] Stop: 04/28/20 08:59 Last Admin: 04/05/20 08:24 Dose: 40 units Documented by: Levothyroxine Sodium (Levothyroxine Sodium 25 Mcg Tablet) [facility]: 04/27/20 09:59 Last Admin: 04/05/20 05:28 Dose: 25 mcg Documented by: Levothyroxine Sodium (Levothyroxine Sodium 200 Mcg Tablet) [facility] Stop: 04/28/20 06:29 Last Admin: 04/05/20 05:28 Dose: 200 mcg Documented by: Metolazone (Metolazone 5 Mg Tablet) 5 mg PO [id number] [facility] Stop: 05/01/20 13:59 Last Admin: 04/05/20 13:24 Dose: 5 mg Documented by: Metoprolol Tartrate (Metoprolol Tartrate 25 Mg Tab) 25 mg PO BID [facility] Stop: 04/28/20 08:59 Last Admin: 04/05/20 08:24 Dose: 25 mg Documented by: Miconazole Nitrate (Miconazole Nitrate Powder 43 Gm) 1 appln EXT PRN PRN PRN Reason: Affected Skin Folds Stop: 04/24/20 06:29 Miscellaneous (Carbohydrates For Hypoglycemia ) 15 - 30 gm PO UD PRN PRN Reason: Hypoglycemia Protocol Stop: 04/23/20 23:49 Miscellaneous Information (Pharmacy Glycemic Mgmt Consult) 1 ea N/A UD PRN PRN Reason: Consult Stop: 04/27/20 15:03 Nitroglycerin (Nitroglycerin Sl 0.4 Mg/Tab Tab) 0.4 mg SL UD PRN PRN Reason: Chest Pain Stop: 04/23/20 23:49 Pantoprazole Sodium (Pantoprazole 40 Mg Tab) 40 mg PO BID [facility] Stop: 04/24/20 08:59 Last Admin: 04/05/20 08:22 Dose: 40 mg Documented by: Prednisone (Prednisone 20 Mg Tab) 40 mg PO QAM [facility] Stop: 04/28/20 08:59 Last Admin: 04/05/20 08:23 Dose: 40 mg Documented by: Warfarin Sodium (Warfarin Sod 5 Mg Tab) 5 mg PO DAILY@1600 [facility] Stop: 05/01/20 15:59 Last Admin: 04/04/20 17:27 Dose: 5 mg Documented by:
--- NOTE | 2020-04-05 15:10 | Pharmacy Report ---
Pharmacy Glycemic Short Note 2 - Date of Service April 05, 2020 - Glycemic Short BSG Results (Last 24 hours): 04/04/20 04/04/20 04/05/20 16:38 20:21 06:46 Glucose 162 H POC Glucose 188 H 200 H 04/05/20 04/05/20 07:33 11:36 Glucose POC Glucose 173 H 209 H OUTPATIENT ANTIDIABETIC REGIMEN: * Lantus 40 units + Novolog * A1c 5.7% ASSESSMENT: 04/05/20 * Blood sugars elevated yesterday evening, fasting slightly up today as well. * Lunch BSG elevated,however patient did not received nph with prednisone this morning, therefore will hold off on adjusting regimen today if BSGs continue to be elevated tomorrow will consider increase in lantus/NPH or tightening carb ratio 04/04/20 * Blood sugars at goal, continue NPH 18 units with prednisone * Patient remains on Prednisone 40mg daily; IV Rocephin and PO Doxycycline; Heparin and amiodarone drips 04/02/20 * Blood sugars at goal, continue NPH with prednisone * Patient remains on Prednisone 40mg daily; IV Rocephin and PO Doxycycline 03/31/20 * Patient received total 77 units of insulin yesterday: 65 units basal + 12 units of bolus. * 65 units of basal included 40 units of Lantus and 25 units of NPH to correct steroid induced hyperglycemic caused by Prednisone 40 mg daily. * Fasting BSG today was 99, and patient continued to be NPO this AM. Therefore, the NPH dose was reduced by 50% to be given with Prednisone. * Patient is now ordered a diet with lunch. * Loosened Novolog CF/CR since lunch BSG was only 85. PLAN FOR INPATIENT GLYCEMIC CONTROL: * Basal insulin * Lantus 40 units sq qAM * NPH 18 units SQ daily with Prednisone (not ordered 04/05) * Bolus insulin: * NovoLog per scale ACHS or Q6hrs while NPO * Goal Range: Low 110 mg/dL - High 140 mg/dL * Correction Factor: 20 mg/dL/unit * Nutritional / Prandial insulin per carb ratio of 1 unit per 5 grams CHO consumed PLAN FOR DISCHARGE: * Recent A1c indicates excellent outpatient control, would continue current outpatient regimen if patient without significant hypoglycemic events. May continue NPH with prednisone if continued outpatient.
[2020-04-05] MEDS: WARFARIN SOD 5 MG TAB PO SCH (16:57)
[2020-04-05 21:11] LABS: Partial Thromboplastin Ratio > 5.0
[2020-04-05 21:13] LABS: Partial Thromboplastin Time > 139.0 Seconds (21.0-31.0)
[2020-04-05 22:11] LABS: Partial Thromboplastin Ratio > 5.0
[2020-04-05 22:13] LABS: Partial Thromboplastin Time > 139.0 Seconds (21.0-31.0)
[2020-04-05 23:36] LABS: Partial Thromboplastin Ratio 4.1
[2020-04-05 23:41] LABS: Partial Thromboplastin Time 115.6 Seconds (21.0-31.0)
[2020-04-06 00:27] LABS: Partial Thromboplastin Ratio 2.6
[2020-04-06 01:05] LABS: Partial Thromboplastin Time 73.1 Seconds (21.0-31.0)
[2020-04-06] MEDS: HEPARIN SODIUM/DEXTROSE 25,000 UNITS/500 ML BAG IV SCH (04:32)
[2020-04-06] MEDS: LEVOTHYROXINE SODIUM 200 MCG TABLET PO SCH (05:19)
[2020-04-06] MEDS: FUROSEMIDE 100 MG in SYRINGE 0 ML IV SCH ×2 (05:19→13:46)
[2020-04-06] MEDS: LEVOTHYROXINE SODIUM 25 MCG TABLET PO SCH (05:19)
[2020-04-06 07:53] LABS: Hematocrit (blood only) 30.2 % (42-52); Hemoglobin 9.5 g/dL (14.0-18.0); Mean Corpuscular Hemoglobin 26.3 pg (25-34); Mean Corpuscular Hgb Conc 31.5 g/dL (32-36); Mean Corpuscular Volume 83.7 fL (80-100); Mean Platelet Volume 10.2 fL (7.4-10.4); Platelet Count 115 K/uL (130-400); RDW Coefficient of Variation 16.8 % (11.5-14.5); RDW Standard Deviation 51.4 fL (36.4-46.3); Red Blood Count 3.61 M/uL (4.7-6.1); White Blood Count 4.82 K/uL (4.8-10.8)
[2020-04-06] MEDS: FLUoxetine HCL 20 MG CAP PO SCH (08:02)
[2020-04-06] MEDS: PANTOprazole 40 MG TAB PO SCH ×2 (08:02→20:53)
[2020-04-06] MEDS: FLUoxetine HCL 10 MG CAP PO SCH (08:02)
[2020-04-06] MEDS: predniSONE 20 MG TAB PO SCH (08:02)
[2020-04-06] MEDS: metOLazone 5 MG TABLET PO SCH ×2 (08:02→13:46)
[2020-04-06] MEDS: METOPROLOL TARTRATE 25 MG TAB PO SCH ×2 (08:02→20:53)
[2020-04-06] MEDS: AMIODARONE 200 MG TAB PO SCH ×2 (08:02→17:09)
[2020-04-06 08:03] LABS: INR 1.7 (0.9-1.1); Prothrombin Time 17.2 Seconds (9.0-12.0)
[2020-04-06] MEDS: INSULIN GLARGINE SOLOSTAR 100 UNITS/ML 3 ML PEN SC SCH (08:03)
[2020-04-06] MEDS: INSULIN ASPART 100 UNITS/ML 3 ML PEN SC SCH ×4 (08:04→20:54)
[2020-04-06 08:14] LABS: Partial Thromboplastin Ratio 2.1
[2020-04-06 08:33] LABS: BUN Creatinine Ratio 43.5 (10-20); Calcium 9.5 mg/dl (8.5-10.1); Creatinine Clr Calc Pharmacy 53.6 ml/min; Est GFR (African American) 34.1; Est GFR (Non-African American) 29.5; Potassium 3.7 mmol/L (3.5-5.1)
--- NOTE | 2020-04-06 08:33 | Electrocardiogram Report ---
Test Reason : Blood Pressure : / mmHG Vent. Rate : 064 BPM Atrial Rate : 090 BPM P-R Int : 000 ms QRS Dur : 162 ms QT Int : 516 ms P-R-T Axes : 000 -02 201 degrees QTc Int : 532 ms Probable Atrial flutter Non-specific intra-ventricular conduction delay Abnormal ECG When compared with ECG of 05-APR-2020 06:12, No significant change Confirmed by Dez Jurado ([id number]) on 04/06/2020 8:33:12 AM Referred By: REFERRED SELF Confirmed By:Dez Jurado
[2020-04-06] MEDS ORDERED: NovoLIN-N (NPH) PER UNIT CHARGE SQ ONE (09:00)
[2020-04-06] MEDS: hydrALAZINE TAB 50 MG TAB PO SCH ×4 (10:29→20:53)
--- NOTE | 2020-04-06 10:40 | XRay Report ---
XR chest 1V portable CLINICAL HISTORY: Congestive heart failure. COMPARISON STUDY: Chest CT March 26, 2020. Chest radiograph March 30, 2020. FINDINGS: There is no pneumothorax. Moderate right and small left pleural effusions are noted. There is pulmonary vascular congestion, greater within the right lung. The appearance of the chest is simil ar to prior exam. Cardiomegaly is noted. IMPRESSION: No significant change in appearance of the chest. Pulmonary vascular congestion with moderate right a nd small left pleural effusions. ACT 112: Negative or not required by law. Electronically signed by: Remington Bazan M.D. 04/06/2020 10:38 AM
--- NOTE | 2020-04-06 10:52 | Progress Notes ---
DATE: 04/06/2020 SUBJECTIVE: Overnight, no new issues. The patient is making about 4-4.5 liters of urine every day for many days now. Blood pressure is starting to run somewhat low. PHYSICAL EXAMINATION: VITAL SIGNS: Most recent blood pressure is 95/62, pulse rate 66, temperature 36 degrees Celsius, 98% on 2 liter nasal cannula. HEENT: Mucous membrane is moist. NECK: Supple. Cannot appreciate jugular venous distention. CHEST: Bilateral decreased breath sounds, occasional crackles. CARDIOVASCULAR: S1, S2 irregular. Soft systolic murmur heard. ABDOMEN: Soft, morbidly obese, nontender. EXTREMITIES: Still shows about 1+ edema, although it is significantly better than at the time of admission. Blood work from this morning shows sodium 135, potassium is 3.7, bicarbonate 40, BUN 98, creatinine is 2.24, magnesium is 2. ASSESSMENT AND PLAN: A 64-year-old male with acute worsening of stage III chronic kidney disease in the setting of respiratory failure with hypoxia and hypercapnia. Acute on chronic congestive heart failure is the primary reason for shortness of breath. 1. Acute renal failure. He seems fairly stable with a creatinine in the low 2s for many days now. However, his BUN is getting pretty high and so is his serum bicarbonate signifying need for tapering down aggressive diuresis at this time. Given this, I would like to transition him to oral high dose diuretics as preparation for the discharge. He has been in the hospital for more than 12 days now. RECOMMENDATIONS: 1. Demadex 100 mg twice daily. 2. Metolazone 5 mg daily. 3. Chest x-ray. 4. We need to monitor his urine output in oral diuretics regimen. If things start to get worse again we will have to transition back to IV diuretics. 5. Consider arterial blood gas, but this is not critical as he is on heparin and I do not want him to have a big hematoma. [facility]
--- NOTE | 2020-04-06 11:16 | Cardiology Progress Note ---
Date of Service April 06, 2020 Assessment & Plan (1) Atypical atrial flutter: (2) Paroxysmal ventricular tachycardia: (3) Acute worsening of stage 3 chronic kidney disease: (4) Obesity hypoventilation syndrome: (5) Acute on chronic respiratory failure with hypoxia and hypercapnia: (6) CHF exacerbation: Continue IV heparin bridge to proper Coumadin anticoagulation. INR of 2.0-3.0. Transition to oral diuretics today, as per Nephrology BiPAP QHS and when napping during the day Conservative medical management Admission and Anticipated Discharge Date Admission Date: March 24, 2020 Supervising Physician Co-Signing Physician Notes Patient seen and examined at the bedside. No recurrent ventricular tachycardia on telemetry. Denies chest discomfort or shortness of breath at rest. Edema unchanged. Fluid balance negative. Renal function remained stable. PE: VSS, Gen: NAD, AAOx3, morbid obesity. Heart: Irregular rhythm, normal S1-S2, distant heart sounds. No murmur. Lungs: Diminished breath sounds bilaterally. Scattered rhonchi. No wheeze or rales appreciated. Extremities: 2+ bilateral pitting ankle and pretibial edema. 2+ pitting edema involving the abdomen and pannus. A/P: Agree with above PA-C history, physical exam, assessment and plan. Continue oral amiodarone. Dose Coumadin for goal INR of 2.0-3.0. Patient will be transitioned to oral diuretic therapy today per direction of nephrology. If urine output declines, he may require reversion back to IV therapy during hospitalization. Continues to appear significantly volume overloaded with both lower extremity and abdominal wall edema. Monitor telemetry during hospitalization. Encourage activity. Nursing will adjust his bed to an upright position today. Recommend physical therapy evaluation. Utilize BiPAP during naps and nightly Subjective Patient seen and examined. Chart, medications, telemetry reviewed. Feeling OK. I/O's: Negative 3,452 mls over the last 24 hours, down 16,745 mls overall. Telemetry: Atrial fibrillation/flutter typically in the 60's and 70's IVCD. Rare random PVC's. No VT. Review of Systems Review of Systems: All systems reviewed & are unremarkable except as noted in HPI & below Physical Exam Physical Exam: General: Alert to person and place. NAD. HEENT: Normocephalic. Atraumatic. PER. Conjunctiva pink, sclera pale. Neck: No carotid bruits. I could not appreciate his neck veins. Heart: Distant heart sounds. Irregularly irregular. No murmur. Lungs: Clear anteriorly. Abdomen: +BS. Soft. Nontender. No organomegaly. Extremities: 1+ edema. No cyanosis. No pulses. Limited neurological examination is without focal deficits. Results & Data ([facility]) Vital Signs (Past 12 Hours) Vital Signs Temp Pulse Pulse Resp BP Pulse Ox 04/06/20 08:00 66 04/06/20 07:07 36 C L 67 18 95/62 L 98 04/06/20 04:52 68 16 99 04/06/20 03:31 36.6 C 75 19 114/63 100 04/06/20 00:00 36.4 C L 79 18 113/52 L 97 Laboratory Results Laboratory Results - last 24 hr 04/05/20 04/05/20 04/05/20 11:36 16:16 19:44 WBC RBC Hgb Hct MCV MCH MCHC RDW Std Deviation RDW Coeff of Neena Plt Count MPV PT INR APTT Cancelled PTT Ratio Cancelled Sodium Potassium Chloride Carbon Dioxide Anion Gap BUN Creatinine Est Cr Clr Drug Dosing Est GFR ( Amer) Est GFR (Non-Af Amer) BUN/Creatinine Ratio Glucose POC Glucose 209 H 153 H Calcium Magnesium 04/05/20 04/05/20 04/05/20 20:37 20:59 21:43 WBC RBC Hgb Hct MCV MCH MCHC RDW Std Deviation RDW Coeff of Neena Plt Count MPV PT INR APTT > 139.0 H* > 139.0 H* PTT Ratio > 5.0 > 5.0 Sodium Potassium Chloride Carbon Dioxide Anion Gap BUN Creatinine Est Cr Clr Drug Dosing Est GFR ( Amer) Est GFR (Non-Af Amer) BUN/Creatinine Ratio Glucose POC Glucose 158 H Calcium Magnesium 04/05/20 04/05/20 04/06/20 22:35 23:49 07:10 WBC RBC Hgb Hct MCV MCH MCHC RDW Std Deviation RDW Coeff of Neena Plt Count MPV PT INR APTT 115.6 H* 73.1 H* PTT Ratio 4.1 2.6 Sodium Potassium Chloride Carbon Dioxide Anion Gap BUN Creatinine Est Cr Clr Drug Dosing Est GFR ( Amer) Est GFR (Non-Af Amer) BUN/Creatinine Ratio Glucose POC Glucose 148 H Calcium Magnesium 04/06/20 04/06/20 04/06/20 07:32 07:32 07:32 WBC 4.82 RBC 3.61 L Hgb 9.5 L Hct 30.2 L MCV 83.7 MCH 26.3 MCHC 31.5 L RDW Std Deviation 51.4 H RDW Coeff of Neena 16.8 H Plt Count 115 L MPV 10.2 PT 17.2 H INR 1.7 H APTT PTT Ratio Sodium 135 L Potassium 3.7 Chloride 90 L Carbon Dioxide 40 H Anion Gap 5.0 BUN 98 H Creatinine 2.24 H Est Cr Clr Drug Dosing 53.6 Est GFR ( Amer) 34.1 Est GFR (Non-Af Amer) 29.5 BUN/Creatinine Ratio 43.5 H Glucose 112 H POC Glucose Calcium 9.5 Magnesium 04/06/20 04/06/20 07:32 07:32 WBC RBC Hgb Hct MCV MCH MCHC RDW Std Deviation RDW Coeff of Neena Plt Count MPV PT INR APTT 59.0 H* PTT Ratio 2.1 Sodium Potassium Chloride Carbon Dioxide Anion Gap BUN Creatinine Est Cr Clr Drug Dosing Est GFR ( Amer) Est GFR (Non-Af Amer) BUN/Creatinine Ratio Glucose POC Glucose Calcium Magnesium 2.0 (1) CHF exacerbation Heart failure type: unspecified Qualified Code(s): I50.9 - Heart failure, unspecified
[2020-04-06] MEDS: ACETAMINOPHEN 325 MG TAB PO PRN ×2 (13:43→21:10)
--- NOTE | 2020-04-06 16:08 | Hospitalist Progress Note ---
Date of Service April 06, 2020 Assessment & Plan (1) Acute on chronic respiratory failure with hypoxia and hypercapnia: This is a 64-year-old male who has significant past medical history of chronic respiratory failure with hypoxia and hypercarbia, SAFIA/OHS, on BiPAP, chronic diastolic heart failure, COPD, insulin-dependent T2DM, hypothyroidism, bilateral lymphedema, CKD stage III, bedbound status who presents to ED via EMS secondary to worsening confusion x2 days and acute respiratory failure. Continue with BiPAP Remains reasonably stable (2) SAFIA (obstructive sleep apnea): (3) Acute metabolic encephalopathy: Encephalopathy Multifactorial : Acute on chronic hypoxemic, hypercapnic respiratory failure secondary to decompensated heart failure/COPD exacerbation, hx OHS ELVI possible Cardiorenal syndrome Complicated UTI, no sepsis Hyperammonemia, possible acute hepatic encephalopathy, possible chronic liver disease given fatty liver findings on abdominal ultrasound from 2000 Hypoglycemia, hx DM2 insulin requiring, reasonable control as of recent outpatient hemoglobin A1c of 7.22 November 2019 Gram positive bacteremia -possible contaminant, however for now will cover with IV antibiotics and will closely monitor, repeat blood cultures, repeat blood cultures negative We will continue intravenous ceftriaxone for now Lactulose for possible hepatic encephalopathy, liver ultrasound rule out chronic liver disease, may need GI consultation Ammonia level is normal and encephalopathy seems to be clearing up No more confusion (4) Atypical atrial flutter: Left atypical atrial flutter with RVR Appreciate cardiology input and recommendation Has been on amiodarone and intravenous heparin -Echo of the heart showed-this study was technically limited, RV is moderately dilated, RV systolic function is moderately reduced, LV chamber size was a small compared to RV chamber size, septal motion consistent with conduction abnor mality, LVEF grossly normal, moderate TR, dilated inferior vena cava of 3.5 cm estimated pulmonary artery pressure is 45 mmHg Remains stable clinically IV amiodarone has been changed to oral Has had 10 beats of V. tach and required to have back on intravenous amiodarone Has been feeling a lot better today-has been on intravenous amiodarone and will continue for now as per the lead maintenance technician IV amiodarone has been stopped and will continue with oral amiodarone for now Heart rate is controlled and denies any cardiac symptoms (5) Paroxysmal ventricular tachycardia: Intravenous amiodarone Oral when appropriate Has been getting oral amiodarone (6) Acute on chronic diastolic heart failure: Appreciate cardiology input and recommendation Getting intravenous furosemide with metolazone Continue with intravenous furosemide 100 mg 3 times daily and metolazone 5 mg 2 times daily Diuresing enough-we will try to keep him on the continuous conveyor screen drier side We will continue intravenous Lasix and metolazone as prescribed as long as renal function remains stable Chest x-ray did not show any significant change of CHF Had a plan to change IV diuretics to oral if that chest x-ray showed improvement Since there is no increase in CHF we will change the diuretics to oral and see if he maintains the diuresis (7) UTI (urinary tract infection): Urine culture grew E. coli which is pansensitive With intravenous ceftriaxone-doses completed (8) Acute worsening of stage 3 chronic kidney disease: ELVI with oliguria-worsening renal function, despite IV diuretics Lasix-albumin given kidney dysfunction, Nephrology consulted, patient likely has ATN from hypoxia, hypercapnia in the setting of respiratory failure CT chest/abd/pelvis - obtained to better evaluate fluid status Per nephrology - increased dose IV Lasix to 100 mg IV every 8 hours and metolazone 5 mg twice daily We will monitor PRP and electrolytes Creatinine remains stable at 2.26-we will monitor PRP Creatinine remains stable-creatinine is up today's 2.15 which seems to be quite stable Kidney function remains stable so far-creatinine 2.24 as of 04/06/2020 (9) Diabetes mellitus, type 2: Continue with SSI (10) Anemia: (11) Obesity hypoventilation syndrome: As above Has been getting oral doxycycline as well for possible atypical infection Doxycycline, nebs, prednisone course for COPD exacerbatio (12) Hypertension: BP normal/on lower side Functional disability (patient's brother finding it more difficult to care for the patient at home as per patient niece). PT OT eval (13) Hypothyroidism: euthyroid as of current TSH (14) DVT prophylaxis: Has been on heparin IV Coumadin has been started INR 1.5 as of 04/04/2020 Full code as per patient's niece/POA (Ms. Selam Cadet), she can be contacted at . Stable clinically Will see how he does for the next few days before discharge Admission and Anticipated Discharge Date Admission Date: March 24, 2020 Subjective 03/31/2020 The patient was seen and examined in telemetry unit He has been feeling a lot better today Denies any significant symptoms 04/01/2020 The patient was seen and examined in telemetry unit He has been stable and feeling better Denies any symptoms at rest 04/02/2020 The patient was seen and examined in telemetry unit He remains stable and denies any symptoms He is bedbound and can do hardly anything for himself 04/03/2020 The patient was seen and examined in telemetry unit He remains stable and denies any symptoms He has been off BiPAP for eating 04/04/2020 The patient was seen and examined in telemetry unit He is morbidly obese and remains stable in bed Denies any symptoms 04/05/2020 The patient was seen and examined in telemetry unit He has been stable for the last few days The heart rate is controlled and denies any cardiac symptoms He is diuresing enough 04/06/2020 The patient was seen and examined in telemetry unit He remains stable and denies any significant symptoms He continues to diurese and heart rate is controlled Review of Systems Review of Systems: All systems reviewed and are unremarkable except as noted below Constitutional: + malaise Neurologic: + generalized weakness; no confusion Physical Exam Physical Exam: Lying in bed comfortably Constitutional: well developed, well nourished, + ill appearing and + morbidly obese; no acute distress Eyes: PERRL, conjunctivae normal, anicteric sclerae ENMT: external ear and nose normal, oropharynx normal Neck: trachea midline, no thyromegaly Respiratory: normal respiratory effort; no respiratory distress Auscultation: + diminished lung sounds; no crackles (Minimal crackles at the bases) Cardiovascular: Rate/Rhythm: + abnormal rate and + abnormal rhythm Heart Sounds: no murmur Extremities: + edema (1+ chronic edema bilaterally) Gastrointestinal (Abdomen): Inspection/Auscultation: abdomen normal to inspection and normal bowel sounds; abdomen not distended Percussion/Palpation: abdomen soft; abdomen nontender Musculoskeletal: No acute arthritis in any joint Neurologic: moves all extremities; no focal motor deficits Psychiatric: A+Ox3, euthymic affect Lymphatic: no cervical or axillary lymphadenopathy Results & Data Results & Data ([facility]) Vital Signs (Past 12 Hours) Vital Signs Temp Pulse Pulse Resp BP Pulse Ox 04/06/20 11:34 36.6 C 70 18 100/63 97 04/06/20 08:00 66 04/06/20 07:07 36 C L 67 18 95/62 L 98 04/06/20 04:52 68 16 99
[2020-04-06] MEDS: WARFARIN SOD 5 MG TAB PO SCH (17:05)
[2020-04-06] MEDS: TORSEMIDE 100 MG TAB PO SCH (20:53)
[2020-04-07] MEDS: LEVOTHYROXINE SODIUM 25 MCG TABLET PO SCH (05:28)
[2020-04-07] MEDS: LEVOTHYROXINE SODIUM 200 MCG TABLET PO SCH (05:28)
[2020-04-07 06:49] LABS: Partial Thromboplastin Time 54.8 Seconds (21.0-31.0)
[2020-04-07 06:55] LABS: BUN Creatinine Ratio 49.6 (10-20); Calcium 9.3 mg/dl (8.5-10.1); Creatinine Clr Calc Pharmacy 57.1 ml/min; Est GFR (African American) 37.3; Est GFR (Non-African American) 32.2; Potassium 4.3 mmol/L (3.5-5.1)
[2020-04-07 07:45] LABS: INR 1.6 (0.9-1.1); Prothrombin Time 16.8 Seconds (9.0-12.0)
[2020-04-07] MEDS ORDERED: NovoLIN-N (NPH) PER UNIT CHARGE SQ ONE (09:00)
[2020-04-07] MEDS: HEPARIN SODIUM/DEXTROSE 25,000 UNITS/500 ML BAG IV SCH (09:03)
[2020-04-07] MEDS: FLUoxetine HCL 10 MG CAP PO SCH (09:04)
[2020-04-07] MEDS: METOPROLOL TARTRATE 25 MG TAB PO SCH ×2 (09:04→19:39)
[2020-04-07] MEDS: INSULIN GLARGINE SOLOSTAR 100 UNITS/ML 3 ML PEN SC SCH (09:04)
[2020-04-07] MEDS: TORSEMIDE 100 MG TAB PO SCH ×2 (09:05→17:14)
[2020-04-07] MEDS: predniSONE 20 MG TAB PO SCH (09:05)
[2020-04-07] MEDS: hydrALAZINE TAB 50 MG TAB PO SCH ×4 (09:05→19:40)
[2020-04-07] MEDS: FLUoxetine HCL 20 MG CAP PO SCH (09:05)
[2020-04-07] MEDS: metOLazone 5 MG TABLET PO SCH (09:05)
[2020-04-07] MEDS: PANTOprazole 40 MG TAB PO SCH ×2 (09:06→19:39)
[2020-04-07] MEDS: AMIODARONE 200 MG TAB PO SCH ×2 (09:06→17:15)
[2020-04-07] MEDS: INSULIN ASPART 100 UNITS/ML 3 ML PEN SC SCH ×4 (09:07→20:06)
--- NOTE | 2020-04-07 10:28 | Cardiology Progress Note ---
Date of Service April 07, 2020 Assessment & Plan (1) Paroxysmal ventricular tachycardia: (2) Acute on chronic diastolic heart failure: (3) Bilateral lower extremity edema: (4) Atrial fibrillation: Atrial fibrillation. Rate controlled. IV heparin bridge to proper Coumadin anticoagulation. INR of 2.0-3.0. Ventricular tachycardia Continue metoprolol and Amiodarone Diastolic heart failure, cor pulmonale physiology Continue torsemide as prescribed. Decrease metolazone from 5 mg/day to 2.5 mg/day. BiPAP QHS and when napping during the day Conservative medical management Admission and Anticipated Discharge Date Admission Date: March 24, 2020 Supervising Physician Co-Signing Physician Notes Patient seen and chart reviewed. Assessment and plan as well outlined above. Subjective Patient seen and examined. Chart, medications, telemetry reviewed. Feeling OK. Denies chest pain, palpitaitons, or worsening dyspnea. I/O's: Negative 4,499 mls over the last 24 hours, down 21,078 mls overall. Telemetry: Atrial fibrillation, rate controlled, IVCD. Rare random PVC's. No VT. Review of Systems Review of Systems: All systems reviewed & are unremarkable except as noted in HPI & below Physical Exam Physical Exam: General: Alert to person and place. NAD. HEENT: Normocephalic. Atraumatic. PER. Conjunctiva pink, sclera pale. Neck: No carotid bruits. I could not appreciate his neck veins. Heart: Distant heart sounds. Irregularly irregular in the 70's. No murmur. Lungs: Clear anteriorly. Abdomen: +BS. Soft. Nontender. No organomegaly. Extremities: 1+ edema, diffuse. No cyanosis. No pulses. Limited neurological examination is without focal deficits. Results & Data ([facility]) Vital Signs (Past 12 Hours) Vital Signs Temp Pulse Pulse Pulse Resp BP Pulse Ox 04/07/20 09:00 65 04/07/20 07:49 36.6 C 65 20 103/51 L 97 04/07/20 04:00 36.3 C L 57 L 18 114/71 98 04/07/20 03:55 73 16 96 04/07/20 00:08 36.4 C L 69 20 116/73 97 04/06/20 23:29 68 04/06/20 22:30 75 16 97 Laboratory Results Laboratory Results - last 24 hr 04/06/20 04/06/20 04/06/20 11:47 16:41 20:50 PT INR APTT PTT Ratio Sodium Potassium Chloride Carbon Dioxide Anion Gap BUN Creatinine Est Cr Clr Drug Dosing Est GFR ( Amer) Est GFR (Non-Af Amer) BUN/Creatinine Ratio Glucose POC Glucose 195 H 129 H 120 H Calcium 04/07/20 04/07/20 04/07/20 05:21 05:21 05:21 PT 16.8 H INR 1.6 H APTT 54.8 H* PTT Ratio 2.0 Sodium 137 Potassium 4.3 D Chloride 89 L Carbon Dioxide 44 H* Anion Gap 5.0 BUN 103 H Creatinine 2.08 H Est Cr Clr Drug Dosing 57.1 Est GFR ( Amer) 37.3 Est GFR (Non-Af Amer) 32.2 BUN/Creatinine Ratio 49.6 H Glucose 144 H POC Glucose Calcium 9.3 04/07/20 07:32 PT INR APTT PTT Ratio Sodium Potassium Chloride Carbon Dioxide Anion Gap BUN Creatinine Est Cr Clr Drug Dosing Est GFR ( Amer) Est GFR (Non-Af Amer) BUN/Creatinine Ratio Glucose POC Glucose 160 H Calcium
[2020-04-07] MEDS: WARFARIN SOD 10 MG TAB PO SCH (17:14)
[2020-04-07] MEDS: ACETAMINOPHEN 325 MG TAB PO PRN (17:19)
--- NOTE | 2020-04-07 19:42 | Hospitalist Progress Note ---
Date of Service April 07, 2020 Assessment & Plan (1) Acute on chronic respiratory failure with hypoxia and hypercapnia: This is a 64-year-old male who has significant past medical history of chronic respiratory failure with hypoxia and hypercarbia, SAFIA/OHS, on BiPAP, chronic diastolic heart failure, COPD, insulin-dependent T2DM, hypothyroidism, bilateral lymphedema, CKD stage III, bedbound status who presents to ED via EMS secondary to worsening confusion x2 days and acute respiratory failure. Continue with BiPAP at night and prn stable (2) Acute metabolic encephalopathy: Possible related to acute on chronic hypoxemic, hypercapnic respiratory failure secondary to decompensated heart failure/COPD exacerbation, hx OHS ELVI possible Cardiorenal syndrome Complicated UTI, no sepsis Hyperammonemia, possible acute hepatic encephalopathy, possible chronic liver disease given fatty liver findings on abdominal ultrasound from 2000 Hypoglycemia, hx DM2 insulin requiring, reasonable control as of recent outpatient hemoglobin A1c of 7.22 November 2019 Gram positive bacteremia -possible contaminant, however for now will cover with IV antibiotics and will closely monitor, repeat blood cultures, repeat blood cultures negative Completed course of abx Lactulose for possible hepatic encephalopathy, liver ultrasound rule out chronic liver disease, may need GI consultation Ammonia level is normal and encephalopathy seems to be clearing up No more confusion (3) Paroxysmal ventricular tachycardia: (4) Atypical atrial flutter: Left atypical atrial flutter with RVR Echo of the heart showed-this study was technically limited, RV is moderately dilated, RV systolic function is moderately reduced, LV chamber size was a small compared to RV chamber size, septal motion consistent with conduction abnormality, LVEF grossly normal, moderate TR, dilated inferior vena cava of 3.5 cm estimated pulmonary artery pressure is 45 mmHg Cardiology on board was started on IV amiodarone, then transition to PO rate has been controlled with amiodarone and metoprolol Continue IV heparin drip with coumadin until INR therapeutic stable (5) Acute on chronic diastolic heart failure: Appreciate cardiology input and recommendation Getting intravenous furosemide with metolazone Received intravenous furosemide 100 mg 3 times daily and metolazone 5 mg 2 times daily Diuresing enough-we will try to keep him on the back tender pulp drier side We will continue intravenous Lasix and metolazone as prescribed as long as renal function remains stable Chest x-ray did not show any significant change of CHF Continue diuresis with Torsemide 100mg BID Monitor BMP (6) Acute worsening of stage 3 chronic kidney disease: ELVI with oliguria-worsening renal function, despite IV diuretics Lasix-albumin given kidney dysfunction, Nephrology consulted, patient likely has ATN from hypoxia, hypercapnia in the setting of respiratory failure CT chest/abd/pelvis - obtained to better evaluate fluid status Per nephrology - increased dose IV Lasix to 100 mg IV every 8 hours and m etolazone 5 mg twice daily We will monitor PRP and electrolytes creatinine 2.08 today Continue monitor BMP while on diuretic (7) UTI (urinary tract infection): Urine culture grew E. coli which is pansensitive With intravenous ceftriaxone-doses completed (8) Diabetes mellitus, type 2: Continue with SSI (9) SAFIA (obstructive sleep apnea): (10) Obesity hypoventilation syndrome: Continue Bipap at night and PRN Has been getting oral doxycycline as well for possible atypical infection Completed the course of the abx Continue with the prednisone taper (11) Hypertension: BP normal/on lower side Functional disability (patient's brother finding it more difficult to care for the patient at home as per patient niece). PT OT eval (12) Hypothyroidism: euthyroid as of current TSH (13) DVT prophylaxis: Has been on heparin IV Continue coumadin with INR 1.6 today Full code as per patient's niece/POA (Ms. Selam Cadet), she can be contacted at . Stable clinically Will see how he does for the next few days before discharge Admission and Anticipated Discharge Date Admission Date: March 24, 2020 Subjective Pt was seen and examined Lying in bed with no distress Pt said that his breathing is stable Denies any chest pain, palpitation, dizziness and SOB Physical Exam Physical Exam: General- No acute distress Head- atraumatic Eyes- PERRL, EOMI, ENT- oropharynx clear Neck- supple, no JVD Lungs- clear to auscultation Heart- irregular rhythm Abdomen- normal bowel sounds, soft, nontender, obese Extremities- no calf tenderness, +edema Neuro- alert, oriented x 3; PERRL, EOMI; no facial palsy; no dysarthria Skin- warm & dry Results & Data Results & Data ([facility]) Vital Signs (Past 12 Hours) Vital Signs Temp Pulse Pulse Pulse Resp BP Pulse Ox 04/07/20 16:00 63 04/07/20 15:35 36.3 C L 77 23 116/64 97 10/21/20 11:45 36.7 C 75 19 95/46 L 97 04/07/20 09:00 65 04/07/20 07:49 36.6 C 65 20 103/51 L 97
[2020-04-08] MEDS: LEVOTHYROXINE SODIUM 25 MCG TABLET PO SCH (05:49)
[2020-04-08] MEDS: LEVOTHYROXINE SODIUM 200 MCG TABLET PO SCH (05:49)
[2020-04-08 07:55] LABS: Partial Thromboplastin Ratio 1.9
[2020-04-08] MEDS: FLUoxetine HCL 20 MG CAP PO SCH (08:33)
[2020-04-08] MEDS: ACETAMINOPHEN 325 MG TAB PO PRN (08:33)
[2020-04-08] MEDS: predniSONE 20 MG TAB PO SCH (08:34)
[2020-04-08] MEDS: FLUoxetine HCL 10 MG CAP PO SCH (08:34)
[2020-04-08] MEDS: TORSEMIDE 100 MG TAB PO SCH ×2 (08:34→16:22)
[2020-04-08] MEDS: AMIODARONE 200 MG TAB PO SCH ×2 (08:34→16:22)
[2020-04-08] MEDS: metOLazone 5 MG TABLET PO SCH (08:35)
[2020-04-08] MEDS: hydrALAZINE TAB 50 MG TAB PO SCH ×4 (08:35→23:43)
[2020-04-08] MEDS: PANTOprazole 40 MG TAB PO SCH ×2 (08:35→23:45)
[2020-04-08] MEDS: INSULIN GLARGINE SOLOSTAR 100 UNITS/ML 3 ML PEN SC SCH (08:36)
[2020-04-08] MEDS: INSULIN ASPART 100 UNITS/ML 3 ML PEN SC SCH ×4 (08:37→21:40)
[2020-04-08] MEDS: METOPROLOL TARTRATE 25 MG TAB PO SCH ×2 (08:39→23:43)
[2020-04-08] MEDS ORDERED: NovoLIN-N (NPH) PER UNIT CHARGE SQ ONE (09:00)
[2020-04-08 10:09] LABS: INR 1.9 (0.9-1.1); Prothrombin Time 18.9 Seconds (9.0-12.0)
[2020-04-08 10:34] LABS: BUN Creatinine Ratio 52.2 (10-20); Calcium 9.5 mg/dl (8.5-10.1); Creatinine Clr Calc Pharmacy 60.1 ml/min; Est GFR (African American) 40.1; Est GFR (Non-African American) 34.6; Potassium 4.1 mmol/L (3.5-5.1)
--- NOTE | 2020-04-08 10:41 | Progress Notes ---
DATE: 04/08/2020 SUBJECTIVE: The patient continues to be about the same. He is making about 5.5 liters of urine every day with the current diuretics. Blood pressure is starting to go low. Most recent one 96/58, pulse rate 78, 98% on 2 liter nasal cannula. HEENT: Mucous membrane moist. NECK: Supple. CHEST: Bilateral decreased breath sounds. CARDIOVASCULAR: Very distant. Cannot appreciate heart sounds, probably because of morbid obesity. EXTREMITIES: Still shows 3+ edema. LABORATORY TESTS: From this morning shows increasing bicarb, chloride 89, BUN 103, creatinine 2.08. Chest x-ray done 2 days ago shows pulmonary vascular congestion with moderate right and small left pleural effusion. ASSESSMENT AND PLAN: A 64-year-old male with acute worsening of stage III chronic kidney disease in the setting of respiratory failure with hypoxia and hypercapnia, acute on chronic congestive heart failure. The primary reason for shortness of breath. 1. Acute renal failure. BUN and creatinine seems fairly stable, but BUN is starting to get higher than 100 with diuresis. His bicarbonate is also going higher. I would like to do arterial blood gas to assess his true acid base status. [facility]
[2020-04-08 10:51] LABS: Base Excess ABG 19.5 mEq/L (-9-1.8); HCO3 ABG 45 mmol/L (19-24); Oxygen Saturation ABG 98.4 % (90-95); PCO2 ABG 60 mmHg (35-46); PO2 ABG 118 mmHg (80-95); pH ABG 7.49 (7.35-7.45)
[2020-04-08 10:52] LABS: Allen Test Pos (Pos)
--- NOTE | 2020-04-08 16:05 | Cardiology Progress Note ---
Date of Service April 08, 2020 Assessment & Plan (1) CHF exacerbation: (2) Atypical atrial flutter: (3) Paroxysmal ventricular tachycardia: (4) Obesity hypoventilation syndrome: (5) Acute on chronic respiratory failure with hypoxia and hypercapnia: Continue oral diuretic therapy monitor daily weight, fluid balance, and GFR. Encourage patient to remain off BiPAP during waking hours. Consider physical therapy evaluation. Continue other cardiovascular medications including amiodar one 200 mg twice daily, metoprolol tartrate 25 mg twice daily, and hydralazine 50 mg 4 times daily at this time. Dose Coumadin daily for INR of 2.0-3.0. Admission and Anticipated Discharge Date Admission Date: March 24, 2020 Subjective Patient seen and examined the bedside. Fluid balance negative approximately 4 L over the past 24 hours. Patient off BiPAP for approximately 12 hours yesterday. Tolerating oral diuretic therapy. Renal function remained stable. Telemetry demonstrates rate controlled atrial fib/flutter. No recurrent ventricular tachycardia. Review of Systems Review of Systems: All systems reviewed & are unremarkable except as noted in HPI & below Physical Exam Constitutional: + morbidly obese Respiratory: Auscultation: + wheezes (Bilateral expiratory); no crackles, no rales and no rhonchi Cardiovascular: Rate/Rhythm: + irregularly irregular Heart Sounds: normal S1 and normal S2; no murmur Vessels: radial pulses present; no JVD (Difficult to assess due to body habitus) Extremities: + edema (1-2+ lower extremity edema, 2+ abdominal, scrotal, and pannus edema) Gastrointestinal (Abdomen): Inspection/Auscultation: abdomen normal to inspection and normal bowel sounds; abdomen not distended Percussion/Palpation: abdomen soft; abdomen nontender, no guarding and abdomen not rigid Skin: no rashes, warm and dry Neurologic: CN's II-XI intact bilaterally and moves all extremities; no focal motor deficits Motor/Sensory: no tremor Results & Data ([facility]) Vital Signs (Past 12 Hours) Vital Signs Temp Pulse Pulse Pulse Resp BP BP 04/08/20 10:45 36.8 C 73 17 97/51 L 04/08/20 08:35 78 96/58 L 04/08/20 08:30 67 04/08/20 08:09 37.0 C 77 16 90/44 L Pulse Ox 04/08/20 10:45 98 04/08/20 08:35 04/08/20 08:30 04/08/20 08:09 98 (1) CHF exacerbation Heart failure type: unspecified Qualified Code(s): I50.9 - Heart failure, unspecified
[2020-04-08] MEDS: WARFARIN SOD 10 MG TAB PO SCH (16:22)
[2020-04-08] MEDS: HEPARIN SODIUM/DEXTROSE 25,000 UNITS/500 ML BAG IV SCH (18:21)
--- NOTE | 2020-04-08 19:35 | Hospitalist Progress Note ---
Date of Service April 08, 2020 Assessment & Plan (1) Acute on chronic respiratory failure with hypoxia and hypercapnia: This is a 64-year-old male who has significant past medical history of chronic respiratory failure with hypoxia and hypercarbia, SAFIA/OHS, on BiPAP, chronic diastolic heart failure, COPD, insulin-dependent T2DM, hypothyroidism, bilateral lymphedema, CKD stage III, bedbound status who presents to ED via EMS secondary to worsening confusion x2 days and acute respiratory failure. Continue with BiPAP at night and prn stable (2) Acute metabolic encephalopathy: Possible related to acute on chronic hypoxemic, hypercapnic respiratory failure secondary to decompensated heart failure/COPD exacerbation, hx OHS ELVI possible Cardiorenal syndrome Complicated UTI, no sepsis Hyperammonemia, possible acute hepatic encephalopathy, possible chronic liver disease given fatty liver findings on abdominal ultrasound from 2000 Hypoglycemia, hx DM2 insulin requiring, reasonable control as of recent outpatient hemoglobin A1c of 7.22 November 2019 Gram positive bacteremia -possible contaminant, however for now will cover with IV antibiotics and will closely monitor, repeat blood cultures, repeat blood cultures negative Completed course of abx Lactulose for possible hepatic encephalopathy, liver ultrasound rule out chronic liver disease, may need GI consultation Ammonia level is normal and encephalopathy seems to be clearing up No more confusion (3) Paroxysmal ventricular tachycardia: (4) Atypical atrial flutter: Left atypical atrial flutter with RVR Echo of the heart showed-this study was technically limited, RV is moderately dilated, RV systolic function is moderately reduced, LV chamber size was a small compared to RV chamber size, septal motion consistent with conduction abnormality, LVEF grossly normal, moderate TR, dilated inferior vena cava of 3.5 cm estimated pulmonary artery pressure is 45 mmHg Cardiology on board was started on IV amiodarone, then transition to PO rate has been controlled with amiodarone and metoprolol Continue IV heparin drip with coumadin until INR therapeutic stable (5) Acute on chronic diastolic heart failure: Appreciate cardiology input and recommendation Getting intravenous furosemide with metolazone Received intravenous furosemide 100 mg 3 times daily and metolazone 5 mg 2 times daily Diuresing enough-we will try to keep him on the pulp drier side We will continue intravenous Lasix and metolazone as prescribed as long as renal function remains stable Chest x-ray did not show any significant change of CHF Torsemide decreased to 100mg daily since BUN elevated Will get a VBG in am Monitor BMP (6) Acute worsening of stage 3 chronic kidney disease: ELVI with oliguria-worsening renal function, despite IV diuretics Lasix-albumin given kidney dysfunction, Nephrology consulted, patient likely has ATN from hypoxia, hypercapnia in the setting of respiratory failure CT chest/abd/pelvis - obtained to better evaluate fluid status Per nephrology - increased dose IV Lasix to 100 mg IV every 8 hours and metolazone 5 mg twice daily We will monitor PRP and electrolytes creatinine 1.9 today Continue monitor BMP while on diuretic (7) UTI (urinary tract infection): Urine culture grew E. coli which is pansensitive With intravenous ceftriaxone-doses completed (8) Diabetes mellitus, type 2: Continue with SSI (9) SAFIA (obstructive sleep apnea): (10) Obesity hypoventilation syndrome: Continue Bipap at night and PRN Has been getting oral doxycycline as well for possible atypical infection Completed the course of the abx Continue with the prednisone taper (11) Hypertension: BP normal/on lower side Functional disability (patient's brother finding it more difficult to care for the patient at home as per patient niece). PT OT eval (12) Hypothyroidism: euthyroid as of current TSH (13) DVT prophylaxis: On heparin IV Continue coumadin with INR 1.9 today CODE status Full code Disposition Niece/POA (Ms. Selam Cdaet), she can be contacted at . Admission and Anticipated Discharge Date Admission Date: March 24, 2020 Subjective Pt was seen and examined Lying in bed with no distress Pt said that he feels ok discussed with patient about placement Pt said that he would like to go home on discharge He said that he feels stable Denies any chest pain, palpitation, dizziness and fever Physical Exam Physical Exam: General- No acute distress Head- atraumatic Eyes- PERRL, EOMI, ENT- oropharynx clear Neck- supple, no JVD Lungs- clear to auscultation Heart- irregular rhythm Abdomen- normal bowel sounds, soft, nontender, obese Extremities- no calf tenderness, +edema Neuro- alert, oriented x 3; PERRL, EOMI; no facial palsy; no dysarthria Skin- warm & dry Results & Data Results & Data ([facility]) Vital Signs (Past 12 Hours) Vital Signs Temp Pulse Pulse Pulse Resp BP BP 04/08/20 19:18 82 17 108/63 04/08/20 17:19 74 04/08/20 17:09 36.5 C 84 21 113/66 04/08/20 10:45 36.8 C 73 17 97/51 L 04/08/20 08:35 78 96/58 L 04/08/20 08:30 67 04/08/20 08:09 37.0 C 77 16 90/44 L Pulse Ox 04/08/20 19:18 97 04/08/20 17:19 04/08/20 17:09 97 04/08/20 10:45 98 04/08/20 08:35 04/08/20 08:30 04/08/20 08:09 98
[2020-04-09] MEDS: LEVOTHYROXINE SODIUM 200 MCG TABLET PO SCH (06:17)
[2020-04-09] MEDS: LEVOTHYROXINE SODIUM 25 MCG TABLET PO SCH (06:17)
[2020-04-09] MEDS: HEPARIN SODIUM/DEXTROSE 25,000 UNITS/500 ML BAG IV SCH (07:09)
[2020-04-09 07:56] LABS: Hematocrit (blood only) 31.8 % (42-52); Hemoglobin 9.9 g/dL (14.0-18.0); Mean Corpuscular Hemoglobin 26.3 pg (25-34); Mean Corpuscular Hgb Conc 31.1 g/dL (32-36); Mean Corpuscular Volume 84.4 fL (80-100); Mean Platelet Volume 10.8 fL (7.4-10.4); Platelet Count 132 K/uL (130-400); RDW Coefficient of Variation 16.6 % (11.5-14.5); RDW Standard Deviation 50.6 fL (36.4-46.3); Red Blood Count 3.77 M/uL (4.7-6.1); White Blood Count 5.91 K/uL (4.8-10.8)
[2020-04-09 07:58] LABS: Base Excess VBG 21.9 mEq/L; Oxygen Saturation VBG 87.6 %; pH VBG 7.49 (7.36-7.41)
[2020-04-09 08:16] LABS: INR 2.2 (0.9-1.1); Prothrombin Time 22.1 Seconds (9.0-12.0)
[2020-04-09 08:32] LABS: Partial Thromboplastin Time 55.8 Seconds (21.0-31.0)
[2020-04-09 08:41] LABS: BUN Creatinine Ratio 49.6 (10-20); Calcium 9.4 mg/dl (8.5-10.1); Creatinine Clr Calc Pharmacy 57.2 ml/min; Est GFR (African American) 37.8; Est GFR (Non-African American) 32.6; Potassium 3.8 mmol/L (3.5-5.1)
[2020-04-09] MEDS: INSULIN ASPART 100 UNITS/ML 3 ML PEN SC SCH ×4 (08:51→20:35)
[2020-04-09] MEDS: AMIODARONE 200 MG TAB PO SCH ×2 (08:52→20:50)
[2020-04-09] MEDS: hydrALAZINE TAB 50 MG TAB PO SCH ×5 (08:53→19:54)
[2020-04-09] MEDS: METOPROLOL TARTRATE 25 MG TAB PO SCH ×2 (08:54→19:55)
[2020-04-09] MEDS: TORSEMIDE 100 MG TAB PO SCH (08:54)
[2020-04-09] MEDS: predniSONE 20 MG TAB PO SCH (08:55)
[2020-04-09] MEDS: FLUoxetine HCL 20 MG CAP PO SCH (08:56)
[2020-04-09] MEDS: PANTOprazole 40 MG TAB PO SCH ×2 (08:56→20:28)
[2020-04-09] MEDS: FLUoxetine HCL 10 MG CAP PO SCH (08:56)
[2020-04-09] MEDS: INSULIN GLARGINE SOLOSTAR 100 UNITS/ML 3 ML PEN SC SCH (08:57)
[2020-04-09] MEDS: metOLazone 5 MG TABLET PO SCH (08:57)
[2020-04-09] MEDS ORDERED: TORSEMIDE 100 MG TAB PO SCH (09:00)
[2020-04-09] MEDS ORDERED: [UNRECOGNIZED DRUG - REMARK] ONE (09:00)
--- NOTE | 2020-04-09 10:03 | Progress Notes ---
DATE: 04/09/2020 SUBJECTIVE: The patient continues to be about the same. He is essentially bedbound and has been so for more than 2 weeks now. He is still making close to 5.5 liters of urine every day with the current diuretics. Blood pressure is starting to go somewhat low, most recent reading is 103/51, temperature 36.6 degrees Celsius, 95% on 2 liter nasal cannula. HEENT: Mucous membranes moist. NECK: Cannot assess jugular venous distention. CHEST: Bilateral decreased breath sounds, poor inspiratory effort. CARDIOVASCULAR: Very distant. Cannot appreciate heart sounds secondary to morbid obesity. EXTREMITIES: Still shows 2-3+ edema, although it is better than before. LABORATORY TESTS : Fairly stable. Hemoglobin is 9.9, BUN today is 102, creatinine is 2.06, bicarbonate is steadily rising and is now up to 49. At the time of admission, it was 30. Arterial blood gas done yesterday was reviewed and shows alkalosis with mixed acid base balance showing both respiratory acidosis as well as metabolic alkalosis. ASSESSMENT AND PLAN: A 64-year-old male with acute worsening of stage III CKD in the setting of respiratory failure with hypoxia and hypercapnia, acute on chronic congestive heart failure. 1. Acute renal failure. BUN seems to be steadily going up and is now more than 100. Bicarb is also going higher and he does have metabolic alkalosis at this time. Given that he is making 5.5 liters of urine now for many days, I will cut down the dose of Demadex to once daily and continue metolazone once daily. However, the long-term management of this patient is very complicated as he is 100% bedbound with severe obesity, and hypoventilation syndrome. [facility]
--- NOTE | 2020-04-09 10:52 | Cardiology Progress Note ---
Date of Service April 09, 2020 Assessment & Plan (1) CHF exacerbation: (2) Atypical atrial flutter: (3) Paroxysmal ventricular tachycardia: (4) Obesity hypoventilation syndrome: (5) Acute on chronic respiratory failure with hypoxia and hypercapnia: Continue oral diuretic therapy monitor daily weight, fluid balance, and GFR. Encouraged patient to remain off BiPAP during waking hours. Physical therapy evaluation ordered. Continue other cardiovascular medications including amiodarone 200 mg twice daily, metoprolol tartrate 25 mg twice daily, and hydralazine 50 mg 4 times daily at this time. INR therapeutic. Heparin discontinued. Dose Coumadin daily for INR of 2.0-3.0. Admission and Anticipated Discharge Date Admission Date: March 24, 2020 Subjective Patient seen and examined the bedside. Denies chest pain or unusual shortness of breath. Not wearing BiPAP during waking hours. Lower extremity edema improved, however, scrotal, pannus, abdominal edema unchanged. Fluid balance - 4.3 L over the past 24 hours. Creatinine remains stable. Telemetry demonstrates rate controlled atypical atrial flutter. Reports mild nausea this morning. Review of Systems Review of Systems: All systems reviewed & are unremarkable except as noted in HPI & below Physical Exam Constitutional: + morbidly obese Respiratory: Auscultation: + wheezes (Bilateral expiratory); no crackles, no rales and no rhonchi Cardiovascular: Rate/Rhythm: + irregularly irregular Heart Sounds: normal S1 and normal S2; no murmur Vessels: radial pulses present; no JVD (Difficult to assess due to body habitus) Extremities: + edema (1-2+ lower extremity edema, 2-3+ abdominal, scrotal, and pannus edema) Gastrointestinal (Abdomen): Inspection/Auscultation: abdomen normal to inspection and normal bowel sounds; abdomen not distended Percussion/Palpation: abdomen soft; abdomen nontender, no guarding and abdomen not rigid Skin: no rashes, warm and dry Neurologic: CN's II-XI intact bilaterally and moves all extremities; no focal motor deficits Motor/Sensory: no tremor Results & Data ([facility]) Vital Signs (Past 12 Hours) Vital Signs Temp Pulse Pulse Resp BP BP Pulse Ox 04/09/20 07:58 36.6 C 69 18 103/51 L 95 04/09/20 03:52 37.0 C 71 17 95/54 L 96 04/09/20 03:00 74 04/09/20 02:59 76 14 96 04/08/20 23:35 36.6 C 75 20 103/60 98 (1) CHF exacerbation Heart failure type: unspecified Qualified Code(s): I50.9 - Heart failure, unspecified
[2020-04-09] MEDS: ACETAMINOPHEN 325 MG TAB PO PRN (14:34)
[2020-04-09] MEDS: WARFARIN SOD 10 MG TAB PO SCH (17:01)
--- NOTE | 2020-04-09 21:02 | Hospitalist Progress Note ---
Date of Service April 09, 2020 Assessment & Plan (1) Acute on chronic respiratory failure with hypoxia and hypercapnia: This is a 64-year-old male who has significant past medical history of chronic respiratory failure with hypoxia and hypercarbia, SAFIA/OHS, on BiPAP, chronic diastolic heart failure, COPD, insulin-dependent T2DM, hypothyroidism, bilateral lymphedema, CKD stage III, bedbound status who presents to ED via EMS secondary to worsening confusion x2 days and acute respiratory failure. Continue with BiPAP at night and prn stable (2) Acute metabolic encephalopathy: Possible related to acute on chronic hypoxemic, hypercapnic respiratory failure secondary to decompensated heart failure/COPD exacerbation, hx OHS ELVI possible Cardiorenal syndrome Complicated UTI, no sepsis Hyperammonemia, possible acute hepatic encephalopathy, possible chronic liver disease given fatty liver findings on abdominal ultrasound from 2000 Hypoglycemia, hx DM2 insulin requiring, reasonable control as of recent outpatient hemoglobin A1c of 7.22 November 2019 Gram positive bacteremia -possible contaminant, however for now will cover with IV antibiotics and will closely monitor, repeat blood cultures, repeat blood cultures negative Completed course of abx Lactulose for possible hepatic encephalopathy, liver ultrasound rule out chronic liver disease, may need GI consultation Ammonia level is normal and encephalopathy seems to be clearing up No more confusion (3) Paroxysmal ventricular tachycardia: Intravenous amiodarone Oral when appropriate Has been getting oral amiodarone (4) Atypical atrial flutter: Left atypical atrial flutter with RVR Echo of the heart showed-this study was technically limited, RV is moderately dilated, RV systolic function is moderately reduced, LV chamber size was a small compared to RV chamber size, septal motion consistent with conduction abnormality, LVEF grossly normal, moderate TR, dilated inferior vena cava of 3.5 cm estimated pulmonary artery pressure is 45 mmHg Cardiology on board was started on IV amiodarone, then transition to PO rate has been controlled with amiodarone and metoprolol Continue IV heparin drip with coumadin until INR therapeutic stable (5) Acute on chronic diastolic heart failure: Appreciate cardiology input and recommendation Getting intravenous furosemide with metolazone Received intravenous furosemide 100 mg 3 times daily and metolazone 5 mg 2 times daily Diuresing enough-we will try to keep him on the head mixer side We will continue intravenous Lasix and metolazone as prescribed as long as renal function remains stable Chest x-ray did not show any significant change of CHF Torsemide decreased to 100mg daily since BUN elevated Monitor BMP (6) Acute worsening of stage 3 chronic kidney disease: ELVI with oliguria-worsening renal function, despite IV diuretics Lasix-albumin given kidney dysfunction, Nephrology consulted, patient likely has ATN from hypoxia, hypercapnia in the setting of respiratory failure CT chest/abd/pelvis - obtained to better evaluate fluid status Per nephrology - increased dose IV Lasix to 100 mg IV every 8 hours and metolazone 5 mg twice daily We will monitor PRP and electrolytes creatinine 2.06 today Continue monitor BMP while on diuretic (7) UTI (urinary tract infection): Urine culture grew E. coli which is pansensitive With intravenous ceftriaxone-doses completed (8) Diabetes mellitus, type 2: Continue with SSI (9) SAFIA (obstructive sleep apnea): (10) Obesity hypoventilation syndrome: Continue Bipap at night and PRN Has been getting oral doxycycline as well for possible atypical infection Completed the course of the abx Continue with the prednisone taper (11) Hypertension: BP normal/on lower side Functional disability (patient's brother finding it more difficult to care for the patient at home as per patient niece). PT OT eval (12) Hypothyroidism: euthyroid as of current TSH (13) DVT prophylaxis: On heparin IV Continue coumadin with INR 1.9 today CODE status Full code Disposition Niece/POA (Ms. Selam Cadet), she can be contacted at . Admission and Anticipated Discharge Date Admission Date: March 24, 2020 Subjective Pt was seen and examined Lying in bed with no distress Pt said that he feels ok Continue to use his Bipap continuously Denies any chest pain, palpitation, dizziness and fever Physical Exam Physical Exam: General- No acute distress Head- atraumatic Eyes- PERRL, EOMI, ENT- oropharynx clear Neck- supple, no JVD Lungs- clear to auscultation Heart- irregular rhythm Abdomen- normal bowel sounds, soft, nontender, obese Extremities- no calf tenderness, +edema Neuro- alert, oriented x 3; PERRL, EOMI; no facial palsy; no dysarthria Skin- warm & dry Results & Data Results & Data ([facility]) Vital Signs (Past 12 Hours) Vital Signs Temp Pulse Pulse Resp BP BP Pulse Ox 04/09/20 19:56 36.7 C 69 19 93/57 L 96 04/09/20 19:18 71 18 97 04/09/20 15:42 36.7 C 73 20 100/61 92 04/09/20 11:57 36.6 C 72 19 108/61 98
[2020-04-10] MEDS: LEVOTHYROXINE SODIUM 25 MCG TABLET PO SCH (06:10)
[2020-04-10] MEDS: LEVOTHYROXINE SODIUM 200 MCG TABLET PO SCH (06:10)
[2020-04-10 06:54] LABS: BUN Creatinine Ratio 47.5 (10-20); Creatinine Clr Calc Pharmacy 53.3 ml/min; Est GFR (African American) 35.7; Est GFR (Non-African American) 30.8; Potassium 3.9 mmol/L (3.5-5.1)
[2020-04-10] MEDS: INSULIN ASPART 100 UNITS/ML 3 ML PEN SC SCH ×4 (08:13→21:27)
[2020-04-10] MEDS: ACETAMINOPHEN 325 MG TAB PO PRN (08:13)
[2020-04-10] MEDS: FLUoxetine HCL 10 MG CAP PO SCH (08:13)
[2020-04-10] MEDS: predniSONE 20 MG TAB PO SCH (08:14)
[2020-04-10] MEDS: TORSEMIDE 100 MG TAB PO SCH (08:14)
[2020-04-10] MEDS: AMIODARONE 200 MG TAB PO SCH ×2 (08:14→16:56)
[2020-04-10] MEDS: FLUoxetine HCL 20 MG CAP PO SCH (08:15)
[2020-04-10] MEDS: metOLazone 5 MG TABLET PO SCH (08:15)
[2020-04-10] MEDS: INSULIN GLARGINE SOLOSTAR 100 UNITS/ML 3 ML PEN SC SCH (08:16)
[2020-04-10] MEDS: PANTOprazole 40 MG TAB PO SCH ×2 (08:16→21:27)
[2020-04-10] MEDS: METOPROLOL TARTRATE 25 MG TAB PO SCH (09:20)
[2020-04-10] MEDS: hydrALAZINE TAB 50 MG TAB PO SCH ×4 (09:20→21:26)
--- NOTE | 2020-04-10 10:26 | Cardiology Progress Note ---
Date of Service April 10, 2020 Assessment & Plan (1) Acute on chronic diastolic heart failure: Patient responding to diuretics and now possibly approaching dry weight. Down greater than 20 kg since admission. Etiology secondary to morbid obesity pickwickian syndrome with hypoventilation Plan: We will hold metolazone after today's dosing and reassess in a Change metoprolol tartrate to metoprolol succinate for optimal regimen Supplement potassium given elevated carbon dioxide/contraction alkalosis goal keep potassium greater than 4 We will need to begin mobilization of the patient, out of bed to chair, physical therapy (2) Paroxysmal ventricular tachycardia: No further arrhythmias continue amiodarone 200 mg twice per day (3) Bilateral lower extremity edema: Significantly improved (4) Atrial fibrillation: Rate control and anticoagulation Admission and Anticipated Discharge Date Admission Date: March 24, 2020 Subjective Patient seen and examined, chart, medications, telemetry reviewed. Patient denies any acute complaints currently has continued to demonstrate significant diuresis with marked improvement in abdominal distention and lower extremity edema. Using BiPAP at night. No further ventricular arrhythmias, remains in atrial fibrillation Physical Exam Constitutional: + morbidly obese Eyes: PERRL, conjunctivae normal, anicteric sclerae ENMT: external ear and nose normal, oropharynx normal Neck: + thick neck Respiratory: Auscultation: + diminished lung sounds Cardiovascular: Rate/Rhythm: regular rate and regular rhythm Heart Sounds: normal S1 and normal S2; no gallop and no murmur Palpation: normal PMI Vessels: normal carotid upstroke and radial pulses present; no JVD and no carotid bruit Extremities: + edema (1-2+) Gastrointestinal (Abdomen): normal bowel sounds, soft, nontender, no hepatosplenomegaly Musculoskeletal: no cyanosis or clubbing, extremities motor strength 5/5 Skin: no rashes, warm and dry Neurologic: PERRL, EOMI, accommodation nl, no face palsy, no dysarthria Psychiatric: A+Ox3, euthymic affect Results & Data ([facility]) Vital Signs (Past 12 Hours) Vital Signs Temp Pulse Pulse Pulse Resp BP BP 04/10/20 08:00 36.3 C L 71 75 18 99/64 L 04/10/20 04:00 36.8 C 74 20 99/64 L 04/09/20 23:35 36.6 C 88 20 102/58 L Pulse Ox 04/10/20 08:00 96 04/10/20 04:00 97 04/09/20 23:35 99 Laboratory Results Laboratory Results - last 24 hr 04/09/20 04/09/20 04/09/20 11:40 16:21 16:22 Sodium Potassium Chloride Carbon Dioxide Anion Gap BUN Creatinine Est Cr Clr Drug Dosing Est GFR ( Amer) Est GFR (Non-Af Amer) BUN/Creatinine Ratio Glucose POC Glucose 102 H 67 L* 64 L* Calcium 04/09/20 04/10/20 04/10/20 20:26 05:37 07:40 Sodium 135 L Potassium 3.9 Chloride 83 L Carbon Dioxide 49 H* Anion Gap 3.0 BUN 103 H Creatinine 2.16 H Est Cr Clr Drug Dosing 53.3 Est GFR ( Amer) 35.7 Est GFR (Non-Af Amer) 30.8 BUN/Creatinine Ratio 47.5 H Glucose 114 H POC Glucose 124 H 116 H Calcium 9.0
[2020-04-10] MEDS ORDERED: POTASSIUM CHLORIDE 10 MEQ TABCR PO STA (10:38)
[2020-04-10] MEDS: WARFARIN SOD 10 MG TAB PO SCH (16:55)
--- NOTE | 2020-04-10 17:11 | Hospitalist Progress Note ---
Date of Service April 10, 2020 Assessment & Plan (1) Acute on chronic respiratory failure with hypoxia and hypercapnia: This is a 64-year-old male who has significant past medical history of chronic respiratory failure with hypoxia and hypercarbia, SAFIA/OHS, on BiPAP, chronic diastolic heart failure, COPD, insulin-dependent T2DM, hypothyroidism, bilateral lymphedema, CKD stage III, bedbound status who presents to ED via EMS secondary to worsening confusion x2 days and acute respiratory failure. Continue with BiPAP at night and prn stable (2) Acute metabolic encephalopathy: Possible related to acute on chronic hypoxemic, hypercapnic respiratory failure secondary to decompensated heart failure/COPD exacerbation, hx OHS ELVI possible Cardiorenal syndrome Complicated UTI, no sepsis Hyperammonemia, possible acute hepatic encephalopathy, possible chronic liver disease given fatty liver findings on abdominal ultrasound from 2000 Hypoglycemia, hx DM2 insulin requiring, reasonable control as of recent outpatient hemoglobin A1c of 7.22 November 2019 Gram positive bacteremia -possible contaminant, however for now will cover with IV antibiotics and will closely monitor, repeat blood cultures, repeat blood cultures negative Completed course of abx Lactulose for possible hepatic encephalopathy, liver ultrasound rule out chronic liver disease, may need GI consultation Ammonia level is normal and encephalopathy seems to be clearing up No more confusion (3) Paroxysmal ventricular tachycardia: Intravenous amiodarone Oral when appropriate Has been getting oral amiodarone Rate controlled (4) Atypical atrial flutter: Left atypical atrial flutter with RVR Echo of the heart showed-this study was technically limited, RV is moderately dilated, RV systolic function is moderately reduced, LV chamber size was a small compared to RV chamber size, septal motion consistent with conduction abnormality, LVEF grossly normal, moderate TR, dilated inferior vena cava of 3.5 cm estimated pulmonary artery pressure is 45 mmHg Cardiology on board was started on IV amiodarone, then transition to PO rate has been controlled with amiodarone and metoprolol IV heparin drip was discontinued Continue coumadin stable (5) Acute on chronic diastolic heart failure: Appreciate cardiology input and recommendation Getting intravenous furosemide with metolazone Received intravenous furosemide 100 mg 3 times daily and metolazone 5 mg 2 times daily Diuresing enough-we will try to 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 We will continue intravenous Lasix and metolazone as prescribed as long as renal function remains stable Chest x-ray did not show any significant change of CHF Torsemide decreased to 100mg daily since BUN elevated Metolazone has been on hold Monitor BMP (6) Acute worsening of stage 3 chronic kidney disease: ELVI with oliguria-worsening renal function, despite IV diuretics Lasix-albumin given kidney dysfunction, Nephrology consulted, patient likely has ATN from hypoxia, hypercapnia in the setting of respiratory failure CT chest/abd/pelvis - obtained to better evaluate fluid status Per nephrology - increased dose IV Lasix to 100 mg IV every 8 hours and metolazone 5 mg twice daily We will monitor PRP and electrolytes creatinine 2.1 today Continue monitor BMP while on diuretic (7) UTI (urinary tract infection): Urine culture grew E. coli which is pansensitive With intravenous ceftriaxone-doses completed (8) Diabetes mellitus, type 2: Continue with SSI (9) SAFIA (obstructive sleep apnea): (10) Obesity hypoventilation syndrome: Continue Bipap at night and PRN Has been getting oral doxycycline as well for possible atypical infection Completed the course of the abx Continue with the prednisone taper (11) Hypertension: BP normal/on lower side Functional disability (patient's brother finding it more difficult to care for the patient at home as per patient niece). PT OT eval (12) Hypothyroidism: euthyroid as of current TSH (13) DVT prophylaxis: On heparin IV Continue coumadin with INR 1.9 today CODE status Full code Disposition Niece/POA (Ms. Selam Cadet), she can be contacted at . Admission and Anticipated Discharge Date Admission Date: March 24, 2020 Subjective Pt was seen and examined Lying in bed with no distress comfortable Continue to use Bipap continuously He said that he feels fin Encourage him to sit and try to move with PT Denies any chest pain, palpitation and SOB Physical Exam Physical Exam: General- No acute distress Head- atraumatic Eyes- PERRL, EOMI, ENT- oropharynx clear Neck- supple, no JVD Lungs- clear to auscultation Heart- irregular rhythm Abdomen- normal bowel sounds, soft, nontender, obese Extremities- no calf tenderness, +edema Neuro- alert, oriented x 3; PERRL, EOMI; no facial palsy; no dysarthria Skin- warm & dry Results & Data Results & Data ([facility]) Vital Signs (Past 12 Hours) Vital Signs Temp Pulse Pulse Resp BP Pulse Ox 04/10/20 15:42 78 04/10/20 14:57 36.7 C 77 14 119/75 97 04/10/20 12:00 36.8 C 80 18 108/69 96 04/10/20 08:00 36.3 C L 71 75 18 99/64 L 96
--- NOTE | 2020-04-10 17:27 | Nephrology Progress Note ---
Date of Service April 10, 2020 Assessment & Plan (1) Acute renal failure: 2/2 Cardiorenal syndrome. Looks more comfortabel,but the BUN seems to be steadily going up and is now more than and has metabolic alkalosis, because of his size he would be id Respiratory acidosis as well . Demadex was decreased yeaterday and the Metolazon has been with held by Cardioloy, Agree with it. This is a difficult patinet and at the most we can make him comfortable symtomatically. Admission and Anticipated Discharge Date Admission Date: March 24, 2020 Subjective Resting comfortably , no shortness of breath. Review of Systems Review of Systems: All systems reviewed & are unremarkable except as noted in HPI & below Physical Exam Physical Exam: HEENT: Mucous membranes moist. NECK: Cannot assess jugular venous distention. CHEST: Bilateral decreased breath sounds, poor inspiratory effort. CARDIOVASCULAR: Very distant. Cannot appreciate heart sounds secondary to morbid obesity. EXTREMITIES: Still shows 2-3+ edema, although it is better than before. Results & Data ([facility]) Vital Signs (Past 12 Hours) Vital Signs Temp Pulse Pulse Resp BP Pulse Ox 04/10/20 15:42 78 04/10/20 14:57 36.7 C 77 14 119/75 97 04/10/20 12:00 36.8 C 80 18 108/69 96 04/10/20 08:00 36.3 C L 71 75 18 99/64 L 96 Laboratory Results 04/09/20 07:39 04/10/20 05:37
[2020-04-11] MEDS: LEVOTHYROXINE SODIUM 25 MCG TABLET PO SCH (06:02)
[2020-04-11] MEDS: LEVOTHYROXINE SODIUM 200 MCG TABLET PO SCH (06:02)
--- NOTE | 2020-04-11 07:47 | Nephrology Progress Note ---
Date of Service April 11, 2020 Assessment & Plan (1) Acute renal failure: 2/2 Cardiorenal syndrome. Comfortabel,but the BUN seems to be steadily going up, he also has metabolic Alkalosis. Demadex was decreased yesterday and the Metolazon has been with held by Cardioloy, Agree with it. This is a difficult patinet and at the most we can make him comfortable symtomatically. His renal functions will fluctuate with diuretic doses. Admission and Anticipated Discharge Date Admission Date: March 24, 2020 Subjective Comfortable, no new complains Review of Systems Review of Systems: Other Does not want to talk, sleepy. Physical Exam Physical Exam: HEENT: Mucous membranes moist. NECK: Cannot assess jugular venous distention. CHEST: Bilateral decreased breath sounds, poor inspiratory effort. CARDIOVASCULAR: Very distant. Cannot appreciate heart sounds secondary to morbid obesity. EXTREMITIES: Still shows 2-3+ edema, although it is better than before. Results & Data ([facility]) Vital Signs (Past 12 Hours) Vital Signs Temp Pulse Pulse Resp BP BP Pulse Ox 04/11/20 03:34 36.5 C 75 20 129/69 98 04/11/20 02:54 77 22 96 04/11/20 00:33 75 04/10/20 23:13 36.5 C 82 20 112/70 98 04/10/20 21:57 80 13 97 04/10/20 20:04 36.6 C 80 17 99/59 L 97 Laboratory Results 04/09/20 07:39 04/10/20 05:37
[2020-04-11] MEDS: METOPROLOL SUCC 25MG EXT REL TAB PO SCH (07:50)
[2020-04-11] MEDS: FLUoxetine HCL 10 MG CAP PO SCH (07:50)
[2020-04-11] MEDS: TORSEMIDE 100 MG TAB PO SCH (07:50)
[2020-04-11] MEDS: PANTOprazole 40 MG TAB PO SCH ×2 (07:51→19:51)
[2020-04-11] MEDS: AMIODARONE 200 MG TAB PO SCH ×2 (07:51→17:08)
[2020-04-11] MEDS: hydrALAZINE TAB 50 MG TAB PO SCH ×3 (07:51→20:16)
[2020-04-11] MEDS: predniSONE 20 MG TAB PO SCH (07:51)
[2020-04-11] MEDS: FLUoxetine HCL 20 MG CAP PO SCH (07:52)
[2020-04-11] MEDS: INSULIN ASPART 100 UNITS/ML 3 ML PEN SC SCH ×4 (08:31→20:14)
[2020-04-11] MEDS: INSULIN GLARGINE SOLOSTAR 100 UNITS/ML 3 ML PEN SC SCH (08:32)
[2020-04-11 08:46] LABS: INR 3.3 (0.9-1.1); Prothrombin Time 32.6 Seconds (9.0-12.0)
--- NOTE | 2020-04-11 10:12 | Cardiology Progress Note ---
Date of Service April 11, 2020 Assessment & Plan (1) Acute on chronic diastolic heart failure: Patient responding to diuretics and now possibly approaching dry weight. Down greater than 30 kg since admission. Etiology secondary to morbid obesity pickwickian syndrome with hypoventilation Continues to have vigorous urinary outputs Plan: We will hold metolazone but may require intermittent dosing on discharge Reduce torsemide to 80 mg/day (2) Paroxysmal ventricular tachycardia: No further arrhythmias continue amiodarone 200 mg twice per day (3) Bilateral lower extremity edema: Significantly improved (4) Atrial fibrillation: Rate control and anticoagulation currently on loading dose of warfarin with therapeutic INR today. Will need dose reduction and adjustment no dose tonight Admission and Anticipated Discharge Date Admission Date: March 24, 2020 Subjective Patient seen and examined, chart, medications, telemetry reviewed. Patient denies any acute complaints. Telemetry without arrhythmias other than baseline A. fib flutter with controlled ventricular response rate Still with significant urinary output INR now therapeutic but on loading dose Physical Exam Constitutional: + morbidly obese Eyes: PERRL, conjunctivae normal, anicteric sclerae ENMT: external ear and nose normal, oropharynx normal Neck: + thick neck Respiratory: Auscultation: + diminished lung sounds Cardiovascular: Rate/Rhythm: + irregularly irregular Heart Sounds: normal S1 and normal S2; no gallop and no murmur Palpation: normal PMI Vessels: normal carotid upstroke and radial pulses present; no JVD and no carotid bruit Extremities: + edema (1-2+) Gastrointestinal (Abdomen): normal bowel sounds, soft, nontender, no hepatosplenomegaly Musculoskeletal: no cyanosis or clubbing, extremities motor strength 5/5 Skin: no rashes, warm and dry Neurologic: PERRL, EOMI, accommodation nl, no face palsy, no dysarthria Psychiatric: A+Ox3, euthymic affect Results & Data ([facility]) Vital Signs (Past 12 Hours) Vital Signs Temp Pulse Pulse Resp BP BP Pulse Ox 04/11/20 08:00 140/78 04/11/20 07:52 36.0 C L 74 18 92/58 L 96 04/11/20 03:34 36.5 C 75 20 129/69 98 04/11/20 02:54 77 22 96 04/11/20 00:33 75 04/10/20 23:13 36.5 C 82 20 112/70 98 Laboratory Results Laboratory Results - last 24 hr 04/10/20 04/10/20 04/10/20 11:47 16:19 20:41 PT INR Sodium Potassium Chloride Carbon Dioxide Anion Gap BUN Creatinine Est Cr Clr Drug Dosing Est GFR ( Amer) Est GFR (Non-Af Amer) BUN/Creatinine Ratio Glucose POC Glucose 147 H 153 H 163 H Calcium 04/11/20 04/11/20 04/11/20 07:38 08:03 08:03 PT 32.6 H INR 3.3 H Sodium Pending Potassium Pending Chloride Pending Carbon Dioxide Pending Anion Gap Pending BUN Pending Creatinine Pending Est Cr Clr Drug Dosing Pending Est GFR ( Amer) Pending Est GFR (Non-Af Amer) Pending BUN/Creatinine Ratio Pending Glucose Pending POC Glucose 129 H Calcium Pending
[2020-04-11 10:33] LABS: BUN Creatinine Ratio 42.8 (10-20); Calcium 9.3 mg/dl (8.5-10.1); Creatinine Clr Calc Pharmacy 47.9 ml/min; Est GFR (African American) 31.9; Est GFR (Non-African American) 27.5
--- NOTE | 2020-04-11 11:17 | Pharmacy Report ---
Pharmacy Glycemic Short Note 2 - Date of Service April 11, 2020 - Glycemic Short BSG Results (Last 24 hours): 04/10/20 04/10/20 04/10/20 11:47 16:19 20:41 Glucose POC Glucose 147 H 153 H 163 H 04/11/20 04/11/20 07:38 08:03 Glucose 123 H POC Glucose 129 H OUTPATIENT ANTIDIABETIC REGIMEN: * Lantus 40 units + Novolog * A1c 5.7% ASSESSMENT: 04/11 * Patient received total of 69 units of insulin yesterday, of which 40 were basal * Fasting BSG 129 mg/dL w/in range - continue same * Continue same CF/CR PLAN FOR INPATIENT GLYCEMIC CONTROL: * Basal insulin * Lantus 40 units sq qAM * Bolus insulin: * NovoLog per scale ACHS or Q6hrs while NPO * Goal Range: Low 110 mg/dL - High 140 mg/dL * Correction Factor: 30 mg/dL/unit * Nutritional / Prandial insulin per carb ratio of 1 unit per 7 grams CHO consumed PLAN FOR DISCHARGE: * Recent A1c indicates excellent outpatient control, would continue current outpatient regimen on discharge
[2020-04-11] MEDS ORDERED: INSULIN HUMAN REGULAR PER UNIT 10 UNITS in SYRINGE 9.9 ML IV ONE (17:00)
--- NOTE | 2020-04-11 18:08 | Hospitalist Progress Note ---
Date of Service April 11, 2020 Assessment & Plan (1) Acute on chronic respiratory failure with hypoxia and hypercapnia: This is a 64-year-old male who has significant past medical history of chronic respiratory failure with hypoxia and hypercarbia, SAFIA/OHS, on BiPAP, chronic diastolic heart failure, COPD, insulin-dependent T2DM, hypothyroidism, bilateral lymphedema, CKD stage III, bedbound status who presents to ED via EMS secondary to worsening confusion x2 days and acute respiratory failure. Continue with BiPAP at night and prn stable (2) Acute metabolic encephalopathy: Possible related to acute on chronic hypoxemic, hypercapnic respiratory failure secondary to decompensated heart failure/COPD exacerbation, hx OHS ELVI possible Cardiorenal syndrome Complicated UTI, no sepsis Hyperammonemia, possible acute hepatic encephalopathy, possible chronic liver disease given fatty liver findings on abdominal ultrasound from 2000 Hypoglycemia, hx DM2 insulin requiring, reasonable control as of recent outpatient hemoglobin A1c of 7.22 November 2019 Gram positive bacteremia -possible contaminant, however for now will cover with IV antibiotics and will closely monitor, repeat blood cultures, repeat blood cultures negative Completed course of abx Lactulose for possible hepatic encephalopathy, liver ultrasound rule out chronic liver disease, may need GI consultation Ammonia level is normal and encephalopathy seems to be clearing up Resolved (3) Paroxysmal ventricular tachycardia: Intravenous amiodarone Oral when appropriate Has been getting oral amiodarone Rate controlled (4) Atypical atrial flutter: Left atypical atrial flutter with RVR Echo of the heart showed-this study was technically limited, RV is moderately dilated, RV systolic function is moderately reduced, LV chamber size was a small compared to RV chamber size, septal motion consistent with conduction abn ormality, LVEF grossly normal, moderate TR, dilated inferior vena cava of 3.5 cm estimated pulmonary artery pressure is 45 mmHg Cardiology on board was started on IV amiodarone, then transition to PO rate has been controlled with amiodarone and metoprolol IV heparin drip was discontinued INR 3.3 today Will decreased Coumadin Will need to follow with the [facility] clinic stable (5) Acute on chronic diastolic heart failure: Appreciate cardiology input and recommendation Getting intravenous furosemide with metolazone Received intravenous furosemide 100 mg 3 times daily and metolazone 5 mg 2 times daily Diuresing enough-we will try to keep 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 Chest x-ray did not show any significant change of CHF Torsemide decreased to 80mg daily since creatinine bumped to 2.3 Has been diuresis well Metolazone has been on hold Monitor BMP (6) Acute worsening of stage 3 chronic kidney disease: ELVI with oliguria-worsening renal function, despite IV diuretics Lasix-albumin given kidney dysfunction, Nephrology consulted, patient likely has ATN from hypoxia, hypercapnia in the setting of respiratory failure CT chest/abd/pelvis - obtained to better evaluate fluid status Torsemide decreased to 80mg PO daily Metolazone on hold for now, will consider to resume 2-3x weekly on discharge Creatinine bumped to 2.3 today Continue monitor BMP while on diuretic Ok from nephrology standpoint to discharge home (7) UTI (urinary tract infection): Urine culture grew E. coli which is pansensitive With intravenous ceftriaxone-doses completed (8) Diabetes mellitus, type 2: Continue with SSI (9) SAFIA (obstructive sleep apnea): (10) Obesity hypoventilation syndrome: Continue Bipap at night and PRN Has been getting oral doxycycline as well for possible atypical infection Completed the course of the abx Continue with the prednisone taper (11) Hypertension: BP normal/on lower side Functional disability (patient's brother finding it more difficult to care for the patient at home as per patient niece). PT OT eval (12) Hypothyroidism: euthyroid as of current TSH (13) DVT prophylaxis: On heparin IV Continue coumadin with INR 3.3 today CODE status Full code Disposition Niece/POA (Ms. Selam Cadet), she can be contacted at . Admission and Anticipated Discharge Date Admission Date: March 24, 2020 Subjective Pt was seen and examined Lying in bed with no distress Pt said that he feels ok Denies any chest pain, palpitation, dizziness and SOB Physical Exam Physical Exam: General- No acute distress Head- atraumatic Eyes- PERRL, EOMI, ENT- oropharynx clear Neck- supple, no JVD Lungs- clear to auscultation Heart- irregular rhythm Abdomen- normal bowel sounds, soft, nontender, obese Extremities- no calf tenderness, +edema Neuro- alert, oriented x 3; PERRL, EOMI; no facial palsy; no dysarthria Skin- warm & dry Results & Data Results & Data ([facility]) Vital Signs (Past 12 Hours) Vital Signs Temp Pulse Resp BP Pulse Ox 04/11/20 17:00 37.1 C 96 H 16 119/71 94 04/11/20 11:30 36.3 C L 84 18 94/58 L 94 04/11/20 08:00 140/78 04/11/20 07:52 36.0 C L 74 18 92/58 L 96
[2020-04-12] MEDS: LEVOTHYROXINE SODIUM 25 MCG TABLET PO SCH (05:52)
[2020-04-12] MEDS: LEVOTHYROXINE SODIUM 200 MCG TABLET PO SCH (05:52)
[2020-04-12 07:05] LABS: Hematocrit (blood only) 31.1 % (42-52); Hemoglobin 9.8 g/dL (14.0-18.0); Mean Corpuscular Hemoglobin 26.6 pg (25-34); Mean Corpuscular Hgb Conc 31.5 g/dL (32-36); Mean Corpuscular Volume 84.5 fL (80-100); Mean Platelet Volume 10.5 fL (7.4-10.4); Platelet Count 128 K/uL (130-400); RDW Coefficient of Variation 16.8 % (11.5-14.5); RDW Standard Deviation 51.2 fL (36.4-46.3); Red Blood Count 3.68 M/uL (4.7-6.1); White Blood Count 6.89 K/uL (4.8-10.8)
[2020-04-12 07:19] LABS: INR 3.9 (0.9-1.1); Prothrombin Time 37.9 Seconds (9.0-12.0)
[2020-04-12 07:30] LABS: BUN Creatinine Ratio 44.2 (10-20); Creatinine Clr Calc Pharmacy 53.4 ml/min; Est GFR (African American) 36.7; Est GFR (Non-African American) 31.7; Potassium 3.5 mmol/L (3.5-5.1)
[2020-04-12] MEDS: INSULIN ASPART 100 UNITS/ML 3 ML PEN SC SCH ×5 (07:56→21:23)
[2020-04-12] MEDS: AMIODARONE 200 MG TAB PO SCH ×2 (07:57→17:08)
[2020-04-12] MEDS: hydrALAZINE TAB 50 MG TAB PO SCH ×3 (08:00→21:20)
[2020-04-12] MEDS: INSULIN GLARGINE SOLOSTAR 100 UNITS/ML 3 ML PEN SC SCH (08:00)
[2020-04-12] MEDS: METOPROLOL SUCC 25MG EXT REL TAB PO SCH (08:01)
[2020-04-12] MEDS: PANTOprazole 40 MG TAB PO SCH ×2 (08:02→21:27)
[2020-04-12] MEDS: predniSONE 20 MG TAB PO SCH (08:02)
[2020-04-12] MEDS: TORSEMIDE 20 MG TAB PO SCH (08:02)
[2020-04-12] MEDS: FLUoxetine HCL 20 MG CAP PO SCH (08:02)
[2020-04-12] MEDS: FLUoxetine HCL 10 MG CAP PO SCH (08:02)
--- NOTE | 2020-04-12 10:40 | Cardiology Progress Note ---
Date of Service April 12, 2020 Assessment & Plan (1) Acute on chronic diastolic heart failure: Patient responding to diuretics and now possibly approaching dry weight. Down greater than 30 kg since admission. Etiology secondary to morbid obesity pickwickian syndrome with hypoventilation Continues to have vigorous urinary outputs Plan: Continue to hold metolazone but may require intermittent dosing on discharge Continue torsemide to 80 mg/day No Coumadin tonight Would continue to taper prednisone (2) Paroxysmal ventricular tachycardia: No further arrhythmias continue amiodarone 200 mg twice per day (3) Bilateral lower extremity edema: Significantly improved (4) Atrial fibrillation: Rate control and anticoagulation INR 3.9 Admission and Anticipated Discharge Date Admission Date: March 24, 2020 Subjective Patient seen and examined, chart, medications, telemetry reviewed no acute complaints overnight continues to manifest diuresis. Weight down 30 kg since admission no chest pains no dizziness no tachypalpitations. No ventricular ectopy or arrhythmias of significance Physical Exam Constitutional: + morbidly obese Eyes: PERRL, conjunctivae normal, anicteric sclerae ENMT: external ear and nose normal, oropharynx normal Neck: + thick neck Respiratory: Auscultation: + diminished lung sounds Cardiovascular: Rate/Rhythm: + irregularly irregular Heart Sounds: normal S1 and normal S2; no gallop and no murmur Palpation: normal PMI Vessels: normal carotid upstroke and radial pulses present; no JVD and no carotid bruit Extremities: + edema (1-2+) Gastrointestinal (Abdomen): normal bowel sounds, soft, nontender, no hepatosplenomegaly Musculoskeletal: no cyanosis or clubbing, extremities motor strength 5/5 Skin: no rashes, warm and dry Neurologic: PERRL, EOMI, accommodation nl, no face palsy, no dysarthria Psychiatric: A+Ox3, euthymic affect Results & Data ([facility]) Vital Signs (Past 12 Hours) Vital Signs Temp Pulse Pulse Resp BP Pulse Ox 04/12/20 07:49 36.6 C 67 17 111/60 96 04/12/20 04:00 36.8 C 75 20 114/68 96 04/12/20 03:28 71 14 97 04/11/20 23:11 37.0 C 78 19 110/68 97 04/11/20 22:48 79 14 95
[2020-04-12] MEDS ORDERED: POTASSIUM CHLORIDE 20 MEQ TABCR PO ONE (11:00)
--- NOTE | 2020-04-12 19:10 | Hospitalist Progress Note ---
Date of Service April 12, 2020 Assessment & Plan (1) Acute on chronic respiratory failure with hypoxia and hypercapnia: This is a 64-year-old male who has significant past medical history of chronic respiratory failure with hypoxia and hypercarbia, SAFIA/OHS, on BiPAP, chronic diastolic heart failure, COPD, insulin-dependent T2DM, hypothyroidism, bilateral lymphedema, CKD stage III, bedbound status who presents to ED via EMS secondary to worsening confusion x2 days and acute respiratory failure. Continue with BiPAP at night and prn stable (2) Acute metabolic encephalopathy: Possible related to acute on chronic hypoxemic, hypercapnic respiratory failure secondary to decompensated heart failure/COPD exacerbation, hx OHS ELVI possible Cardiorenal syndrome Complicated UTI, no sepsis Hyperammonemia, possible acute hepatic encephalopathy, possible chronic liver disease given fatty liver findings on abdominal ultrasound from 2000 Hypoglycemia, hx DM2 insulin requiring, reasonable control as of recent outpatient hemoglobin A1c of 7.22 November 2019 Gram positive bacteremia -possible contaminant, however for now will cover with IV antibiotics and will closely monitor, repeat blood cultures, repeat blood cultures negative Completed course of abx Lactulose for possible hepatic encephalopathy, liver ultrasound rule out chronic liver disease, may need GI consultation Ammonia level is normal and encephalopathy seems to be clearing up Resolved (3) Paroxysmal ventricular tachycardia: Intravenous amiodarone Oral when appropriate Has been getting oral amiodarone Rate controlled (4) Atypical atrial flutter: Left atypical atrial flutter with RVR Echo of the heart showed-this study was technically limited, RV is moderately dilated, RV systolic function is moderately reduced, LV chamber size was a small compared to RV chamber size, septal motion consistent with conduction abn ormality, LVEF grossly normal, moderate TR, dilated inferior vena cava of 3.5 cm estimated pulmonary artery pressure is 45 mmHg Cardiology on board was started on IV amiodarone, then transition to PO rate has been controlled with amiodarone and metoprolol IV heparin drip was discontinued INR 3.9 today Will hold coumadin today Will need to follow with the coag clinic Check INR in am (5) Acute on chronic diastolic heart failure: Appreciate cardiology input and recommendation Getting intravenous furosemide with metolazone Received intravenous furosemide 100 mg 3 times daily and metolazone 5 mg 2 times daily Diuresing enough-we will try to keep him on the atmospheric drier tender side Chest x-ray did not show any significant change of CHF Torsemide decreased to 80mg daily since creatinine bumped to 2.3 Has been diuresis well Metolazone has been on hold case discussed with cardiology that recommended to continue Torsemide 80mg daily and Metolazone 2.5 mg once weekly on discharge Check BMP within 1 week (6) Acute worsening of stage 3 chronic kidney disease: ELVI with oliguria-worsening renal function, despite IV diuretics Lasix-albumin given kidney dysfunction, Nephrology consulted, patient likely has ATN from hypoxia, hypercapnia in the setting of respiratory failure CT chest/abd/pelvis - obtained to better evaluate fluid status Torsemide decreased to 80mg PO daily Metolazone on hold for now, will consider to resume 2-3x weekly on discharge Creatinine bumped to 2.3 today Continue monitor BMP while on diuretic Ok from nephrology standpoint to discharge home (7) UTI (urinary tract infection): Urine culture grew E. coli which is pansensitive With intravenous ceftriaxone-doses completed (8) Diabetes mellitus, type 2: Continue with SSI (9) SAFIA (obstructive sleep apnea): (10) Obesity hypoventilation syndrome: Continue Bipap at night and PRN Has been getting oral doxycycline as well for possible atypical infection Completed the course of the abx Continue with the prednisone taper (11) Hypertension: BP normal/on lower side Functional disability (patient's brother finding it more difficult to care for the patient at home as per patient niece). PT OT eval (12) Hypothyroidism: euthyroid as of current TSH (13) DVT prophylaxis: Continue coumadin with INR 3.9 today CODE status Full code Disposition Niece/POA (Ms. Selam Cadet), she can be contacted at . Admission and Anticipated Discharge Date Admission Date: March 24, 2020 Subjective Pt was seen and examined . Lying in bed with no distress. Pt said that he feels ok I spoke to Dr. Macias over the phone today that had some concerns about the patient Pt has [facility] at home, but the attempts multiple times to see him at home and could not able to see him They called his brother and the house phone, but no one answered I informed patient that he needs to let the provider and nurses come to see him to assess him I told him that his on coumadin and will require blood work frequently to monitor his INR He understands that it is very important to check his INR to prevent the risks of bleeding or clot/stroke He wants to go back to his house to stay with his brother Denies any chest pain, palpitation, dizziness and SOB Physical Exam Physical Exam: General- No acute distress Head- atraumatic Eyes- PERRL, EOMI, ENT- oropharynx clear Neck- supple, no JVD Lungs- clear to auscultation Heart- irregular rhythm Abdomen- normal bowel sounds, soft, nontender, obese Extremities- no calf tenderness, +edema Neuro- alert, oriented x 3; PERRL, EOMI; no facial palsy; no dysarthria Skin- warm & dry Results & Data Results & Data ([facility]) Vital Signs (Past 12 Hours) Vital Signs Temp Pulse Resp BP Pulse Ox 04/12/20 15:06 36.6 C 99 H 18 97/58 L 96 04/12/20 12:02 36.5 C 74 20 105/56 L 96 04/12/20 07:49 36.6 C 67 17 111/60 96
[2020-04-13] MEDS: LEVOTHYROXINE SODIUM 200 MCG TABLET PO SCH (06:30)
[2020-04-13] MEDS: LEVOTHYROXINE SODIUM 25 MCG TABLET PO SCH (06:30)
[2020-04-13] MEDS: TORSEMIDE 20 MG TAB PO SCH (08:57)
[2020-04-13] MEDS: FLUoxetine HCL 10 MG CAP PO SCH (08:57)
[2020-04-13] MEDS: PANTOprazole 40 MG TAB PO SCH (08:57)
[2020-04-13] MEDS: METOPROLOL SUCC 25MG EXT REL TAB PO SCH (08:57)
[2020-04-13] MEDS: hydrALAZINE TAB 50 MG TAB PO SCH (08:58)
[2020-04-13] MEDS: FLUoxetine HCL 20 MG CAP PO SCH (08:58)
[2020-04-13] MEDS: INSULIN ASPART 100 UNITS/ML 3 ML PEN SC SCH ×2 (08:59→12:32)
[2020-04-13] MEDS: INSULIN GLARGINE SOLOSTAR 100 UNITS/ML 3 ML PEN SC SCH (08:59)
[2020-04-13] MEDS: AMIODARONE 200 MG TAB PO SCH (08:59)
[2020-04-13] MEDS ORDERED: predniSONE 10 MG TABLET PO SCH (09:00)
[2020-04-13 09:13] LABS: INR 3.4 (0.9-1.1); Prothrombin Time 33.7 Seconds (9.0-12.0)
[2020-04-13 11:58] VITALS: BP 130/61; PULSE 86; TEMP 97.5; O2SAT 97
[2020-04-13] MEDS: ACETAMINOPHEN 325 MG TAB PO PRN (12:35)
--- NOTE | 2020-04-13 13:01 | Discharge Summary ---
Date of Service April 13, 2020 Admission HPI Per Admitting Provider This is a 64-year-old male who has significant past medical history of chronic respiratory failure with hypoxia and hypercarbia, SAFIA/OHS, on BiPAP, chronic diastolic heart failure, COPD, insulin-dependent T2DM, hypothyroidism, bilateral lymphedema, CKD stage III, bedbound status who presents to ED via EMS secondary to worsening confusion x2 days and acute respiratory failure. Patient currently lives with his brother and is mostly bedbound. He is on chronic 2.5 L of oxygen daily secondary to COPD and obesity hypoventilation syndrome. He is to wear BiPAP at at bedtime. According to history and after speaking with his brother his BiPAP cord broke approximately 2 nights ago and is unable to get replaced for 7 to 10 days. Due to not wearing his BiPAP he noticed he was becoming more confused. Per EMS report patient's BSG was in 20s upon arrival in improved after administration of dextrose. However, this did not improve his mentation. According to brother patient did take 12 units of NovoLog this morning without eating. ROS is unobtainable from patient secondary to being on BiPAP as well as mental status. He is alert and conversing but confused. In ED patient was hypoxic requiring BiPAP therapy. He is otherwise hemodynamically stable. Lab work notable for H&H 9.6 and 32.5, platelet 200, VBG pH 7.35, PCO2 62, BUN 32, creatinine 1.77, lactate 1.3, TSH 4. Urinalysis consistent with greater t aguilar 30 WBCs, +4 bacteruria and concern for UTI. COVID PCR negative. CXR concerning pulmonary edema and R side pleural effusion. In ED he was placed on bipap therapy, albuterol neb tx, IV dextrose, IV Dexamethasone and IV zosyn. Admission Exam Per Admitting Provider Constitutional: Morbidly obese male, on BiPAP therapy, alert and answers questions, but not appropriately, vitals as above, NAD Head: Normocephalic, Atraumatic Eyes: PERRL, conjunctivae normal, anicteric sclerae ENMT: external ear and nose normal, oropharynx normal mucous membranes dry Neck: trachea midline, no thyromegaly normal visual inspection Respiratory: normal respiratory effort, decreased aeration throughout, poor inspiratory effort, positive rhonchi, no wheeze. Normal insp/exp effort, no accessory muscle use Cardiovascular: RRR, no murmur, bilateral lower extremity chronic venous stasis changes with nodular lymphedema. Vessels: no JVD or carotid bruit Chest: normal inspection of chest Abdomen: Obese abdomen, large pannus, soft, nontender, unable to appreciate hepatosplenomegaly secondary to obesity Musculoskeletal: no cyanosis or clubbing Skin: no rashes, warm and dry moderate turgor Neurologic: PERRL, EOMI, accommodation nl, no face palsy, no dysarthria CN's II-XI intact bilaterally and moves all extremities Psychiatric: A+Ox2 to person and place, euthymic affect : Block catheter with yellow urine Principal Diagnosis Acute on chronic respiratory failure with hypoxia and hypercapnia: Acute metabolic encephalopathy: Paroxysmal ventricular tachycardia: Atypical atrial flutter: Acute on chronic diastolic heart failure: Acute worsening of stage 3 chronic kidney disease: Functional disability UTI (urinary tract infection): Diabetes mellitus, type 2: SAFIA (obstructive sleep apnea): Obesity hypoventilation syndrome: Discharge Exam General- No acute distress Head- atraumatic Eyes- PERRL, EOMI, ENT- oropharynx clear Neck- supple, no JVD Lungs- clear to auscultation Heart- irregular rhythm Abdomen- normal bowel sounds, soft, nontender, obese Extremities- no calf tenderness, +edema Neuro- alert, oriented x 3; PERRL, EOMI; no facial palsy; no dysarthria Skin- warm & dry Discharge Data Allergies Allergy/AdvReac Type Severity Reaction Status Date / Time pollen extracts Allergy Mild sneezing/watery Verified 05/26/19 00:14 eyes Consultations 03/24/20 20:07 ED Decision to Admit Stat 03/24/20 23:50 Consult Cardiology Routine 03/26/20 07:00 Consult Nephrology Routine 03/26/20 09:43 Consult Pulmonology Routine Ordered Studies 03/24/20 19:53 CT head/brain wo con Urgent 03/25/20 08:00 US liver Routine 03/26/20 09:44 CT chest wo con Urgent 03/26/20 09:46 CT abd pelvis wo con Urgent 03/31/20 10:46 US venous doppler LE BI Routine XR chest 1V portable CLINICAL HISTORY: Congestive heart failure. COMPARISON STUDY: Chest CT March 26, 2020. Chest radiograph March 30, 2020. FINDINGS: There is no pneumothorax. Moderate right and small left pleural effusions are noted. There is pulmonary vascular congestion, greater within the right lung. The appearance of the chest is similar to prior exam. Cardiomegaly is noted. IMPRESSION: No significant change in appearance of the chest. Pulmonary vascular congestion with moderate right and small left pleural effusions. ACT 112: Negative or not required by law. Electronically signed by: Remington Bazan M.D. 04/06/2020 10:38 AM Dictated: 04/06/20 1036 Transcribed: 04/06/20 1036 BILATERAL LOWER EXTREMITY VENOUS DOPPLER HISTORY: Lower extremity edema. COMPARISON STUDY: None. FINDINGS: Suboptimal study due to the patient's body habitus. The visualized bilateral common femoral veins, superficial femoral veins, and popliteal veins appear patent. The calf vessels were unable to be visualized on this study. IMPRESSION: No evidence for deep vein thrombosis within the common femoral through popliteal veins. The calf vessels were not visualized. ACT 112: Negative or not required by law. Electronically signed by: Jerson Dee M.D. 03/31/2020 11:49 AM Dictated: 03/31/20 1148 Transcribed: 03/31/20 1148 XR chest 1V portable CLINICAL HISTORY: shortness of breath, arrhythmia COMPARISON STUDY: 03/25/2020 FINDINGS: The study is somewhat limited from a technical standpoint. The heart appears enlarged. There is a subpulmonic right pleural effusion. There is no lobar consolidation. There is mild central vascular prominence. There is no overt edema.[ IMPRESSION: 1. Cardiomegaly and mild vascular prominence 2. Subpulmonic right pleural effusion 3. No evidence of lobar consolidation ACT 112: Negative or not required by law. Electronically signed by: Sebastián Gómez M.D. 03/30/2020 8:58 AM Dictated: 03/30/20 0857 Transcribed: 03/30/[address] OF THE ABDOMEN AND PELVIS WITHOUT CONTRAST CLINICAL HISTORY: renal image, eval for hydronephrosis. COMPARISON STUDY: Right upper quadrant ultrasound March 25, 2020. TECHNIQUE: Axial images of the abdomen and pelvis were obtained without IV contrast. Images were reviewed in the axial, sagittal, and coronal planes. Automated exposure control was utilized for the study. A dose lowering technique was utilized adhering to the principles of ALARA. FINDINGS: Please note that the chest CT will be reported separately. A right pleural effusion is better depicted on that exam. No pneumatosis, free air or portal venous gas is present. This exam is significantly compromised by artifact related to body wall contacting the gantry. There is a 6 mm left renal pelvis calculus without hydronephrosis. Additional bilateral renal calculi are noted. No ureteral calculi are present. A Block balloon is present within the bladder which is collapsed. The liver is cirrhotic. Sensitivity for detection of hepatic lesions is diminished but none are identified. There are suspected gallstones within the gallbladder. There may be mild gallbladder wall thickening, a nonspecific finding. The gallbladder is not distended. Several mildly enlarged paola hepatis lymph nodes measure up to 1.5 cm in short axis diameter. Mesenteric infiltration is noted. Body wall edema is noted. There is no evidence for a bowel obstruction. Colonic diverticulosis is noted without evidence for acute diverticulitis. No pelvic lymphadenopathy. Avascular necrosis of the bilateral femoral heads is noted. No fluid collection is identified to suggest an abscess. Unenhanced images of the spleen and adrenal glands are unremarkable. There is pancreatic glandular atrophy. IMPRESSION: 1. Exam significantly compromised by artifact, as described above. 2. 6 mm left renal pelvis calculus. No hydronephrosis. Bilateral nephrolithiasis. No ureteral calculi. 3. Cirrhosis. Trace ascites. Mesenteric infiltration, a nonspecific finding which is probably related to portal hypertension or volume overload. Body wall edema, most evident within the lower abdomen and pelvis. No abscess. 4. Mildly enlarged upper abdominal lymph nodes which are nonspecific but may be related to cirrhosis. 5. Cholelithiasis. 6. Avascular necrosis of the bilateral femoral heads. ACT 112: Negative or not required by law. Electronically signed by: Remington Bazan M.D. 03/26/2020 1:28 PM Dictated: 03/26/20 1315 Transcribed: 03/26/[address] chest wo con CLINICAL HISTORY: 64 years-old Male with eval for pl. effusions, body edema. Follow-up study in a patient with right pleural effusion. TECHNIQUE: Multiaxial CT images of the chest were performed without contrast. A dose lowering technique was utilized adhering to the principles of ALARA. COMPARISON: CT abdomen and pelvis of same day, chest radiograph 03/25/2020, CTA chest 06/06/2016 FINDINGS: No thyroid nodule. Prominent nonenlarged mediastinal lymph nodes include a 10 mm AP window lymph node and 10 mm precarinal lymph node. The precarinal lymph node is unchanged from comparison. The AP window lymph nodes have increased in size. Moderate cardiomegaly. Coronary artery calcifications. No thoracic aortic aneurysm. There is dilation of the main pulmonary artery, 3.2 cm. Patient body habitus limits the study. Trace left and moderate right pleural effusions. There is no pneumothorax. Dependent consolidation of the right lung. Minimal tracheobronchial secretions. Marginal nodularity of the liver suggests cirrhosis. There is an enlarged 1.3 cm gastrohepatic lymph node on image 294 series 6. This appears stable from the 2016 exam. Nonspecific subcutaneous edema within the superior presternal tissues. Degenerative changes of the shoulders and spine. No acute fracture. Thoracic dextroscoliosis. IMPRESSION: 1. Cardiomegaly without overt pulmonary edema. 2. Trace left and moderate right pleural effusions. Dependent right basilar consolidation is suggestive of compressive atelectasis. 3. Nonspecific mediastinal and upper abdominal adenopathy, slightly progressed from the 2016 exam. 4. Indeterminate subcutaneous edema of the superior presternal tissues 5. Please refer to the CT abdomen and pelvis study of same day for additional findings. ACT 112: Negative or not required by law. Electronically signed by: Brenton Aponte M.D. 03/26/2020 1:24 PM Dictated: 03/26/20 1307 Transcribed: 03/26/20 1309 Hospital Course (1) Acute on chronic respiratory failure with hypoxia and hypercapnia: This is a 64-year-old male who has significant past medical history of chronic respiratory failure with hypoxia and hypercarbia, SAFIA/OHS, on BiPAP, chronic diastolic heart failure, COPD, insulin-dependent T2DM, hypothyroidism, bilateral lymphedema, CKD stage III, bedbound status who presents to ED via EMS secondary to worsening confusion x2 days and acute respiratory failure. Continue with BiPAP at night and prn stable (2) Acute metabolic encephalopathy: Possible related to acute on chronic hypoxemic, hypercapnic respiratory failure secondary to decompensated heart failure/COPD exacerbation, hx OHS ELVI possible Cardiorenal syndrome Complicated UTI, no sepsis Hyperammonemia, possible acute hepatic encephalopathy, possible chronic liver disease given fatty liver findings on abdominal ultrasound from 2000 Hypoglycemia, hx DM2 insulin requiring, reasonable control as of recent outpatient hemoglobin A1c of 7.22 November 2019 Gram positive bacteremia -possible contaminant, however for now will cover with IV antibiotics and will closely monitor, repeat blood cultures, repeat blood cultures negative Completed course of abx Lactulose for possible hepatic encephalopathy, liver ultrasound rule out chronic liver disease, may need GI consultation Ammonia level is normal and encephalopathy seems to be clearing up Resolved (3) Paroxysmal ventricular tachycardia: Intravenous amiodarone Oral when appropriate Has been getting oral amiodarone Rate controlled (4) Atypical atrial flutter: Left atypical atrial flutter with RVR Echo of the heart showed-this study was technically limited, RV is moderately di lated, RV systolic function is moderately reduced, LV chamber size was a small compared to RV chamber size, septal motion consistent with conduction abnormality, LVEF grossly normal, moderate TR, dilated inferior vena cava of 3.5 cm estimated pulmonary artery pressure is 45 mmHg Cardiology on board was started on IV amiodarone, then transition to PO rate has been controlled with amiodarone and metoprolol IV heparin drip was discontinued INR 3.4 today Will resume coumadin 5mg daily Follow up with the coumadin clinic to monitor PT/INR (5) Acute on chronic diastolic heart failure: Appreciate cardiology input and recommendation Getting intravenous furosemide with metolazone Received intravenous furosemide 100 mg 3 times daily and metolazone 5 mg 2 times daily Diuresing enough-we will try to keep him on the suction drum drier operator side Chest x-ray did not show any significant change of CHF Torsemide decreased to 80mg daily since creatinine bumped to 2.3 Has been diuresis well Metolazone has been on hold case discussed with cardiology that recommended to continue Torsemide 80mg daily and Metolazone 2.5 mg once weekly on discharge Check BMP within 1 week (6) Acute worsening of stage 3 chronic kidney disease: ELVI with oliguria-worsening renal function, despite IV diuretics Lasix-albumin given kidney dysfunction, Nephrology consulted, patient likely has ATN from hypoxia, hypercapnia in the setting of respiratory failure CT chest/abd/pelvis - obtained to better evaluate fluid status Torsemide decreased to 80mg PO daily Metolazone on hold for now, will consider to resume 2-3x weekly on discharge Creatinine bumped to 2.1 Continue monitor BMP while on diuretic Ok from nephrology standpoint to discharge home (7) UTI (urinary tract infection): Urine culture grew E. coli which is pansensitive With intravenous ceftriaxone-doses completed (8) Diabetes mellitus, type 2: Continue with SSI (9) SAFIA (obstructive sleep apnea): (10) Obesity hypoventilation syndrome: Continue Bipap at night and PRN Has been getting oral doxycycline as well for possible atypical infection Completed the course of the abx Continue with the prednisone taper (11) Hypertension: BP normal/on lower side Functional disability (patient's brother finding it more difficult to care for the patient at home as per patient niece). PT /OT eval Fall precaution (12) Hypothyroidism: euthyroid as of current TSH (13) DVT prophylaxis: Continue coumadin with INR 3.4 today CODE status Full code Disposition Niece/POA (Ms. Selam Cadet), she can be contacted at . Total Time Total Time Spent Total Time Spent (In Minutes): 35 minutes Total Time Includes: Examination of the Patient, Discharge Planning, Medication Reconciliation, Communication With Other Providers and Other Discharge Plan Discharge Items Patient Disposition: Home - Home Health Services Reason For Visit: REAP FAILURE, COVID NEG, DC ISOL Discharge Diagnosis: Acute on chronic respiratory failure with hypoxia and hypercapnia: Acute metabolic encephalopathy: Paroxysmal ventricular tachycardia: Atypical atrial flutter: Acute on chronic diastolic heart failure: Acute worsening of stage 3 chronic kidney disease: Functional disability UTI (urinary tract infection): Diabetes mellitus, type 2: SAFIA (obstructive sleep apnea): Obesity hypoventilation syndrome: Activity: Resume your previous activity Non-emergency contact: Primary Care Provider and Grounds Maintenance Supervisor Call non-emergency contact if: you have any medication questions Follow-up/Referrals: Susanne Macias DO [Primary Care Provider] - (Date & Time 04/19/2020 11:00 AM Provider Susanne Macias DO Department [facility] ) Diet: Carb Consistent or DM2 and Heart Healthy Addtl Attending Provider Instructions: Follow with your primary care provider Dr. Macias on 04/19/2020 @ 11:00 AM Follow up with the coumadin clinic to monitor your PT/INR Continue physical and occupational therapy Continue Bipap at night, during daytime sleep and as needed Continue oxygen supplement Check BMP in 1 week to monitor your electrolytes and kidney function Continue monitor your blood sugar Follow up a healthy diabetes diet with low carb diet and limited concentrated sweet intake Continue fluid restriction with 1500ml daily Continue Torsemide 80mg daily Metolazone 2.5 mg once a week (every Sunday) Medication Instructions: Coumadin Warfarin is a medicine prescribed to prevent blood clots Warfarin will thin your blood and help prevent new clots Take your medications exactly as directed Never skip a dose. Never take a double dose. If you miss a dose, take it as soon as you remember It is important for your doctor to monitor your prothrombin time (PT). This is a lab test Keep your appointment for lab tests Risk of Adverse Drug Reactions and Interactions: Warfarin increases your risk of bleeding The food you eat and other medications you take can affect how Warfarin works in your body Ask your doctor about daily aspirin therapy It is very important to talk with your doctor about all of the other medicines, antibiotics, vitamins or herbal products that you are taking All of your medication must be approved by your doctor, including new medicines, as well as medicines you have taken before you started taking Warfarin Avoid NSAIDs (Motrin, Aleve, Naproxen, Ibuprofen, Advil, Meloxicam,..) due to risks of bleeding Diet: In order for Warfarin to work properly, it is important to keep your intake of Vitamin K as consistent as possible You should avoid any sudden change in Vitamin K intake Report any significant changes in your diet or weight to your doctor Call your Primary Care doctor if you experience any of the following: Swelling or Pain in your leg Sudden, continuous pain deep in a muscle Pain that worsens when you are active or when you stand still for a long time Chest Pain Sudden Shortness of Breath Rapid or pounding heart beat Fainting Dizziness Cough with blood or bloody sputum Sweating more than normal Bruises Heavy or uncontrolled bleeding Blood in your urine, stool or vomit Black or tarry stools Pending Studies at Discharge: No Stand-Alone Forms: [facility], Smoking Cessation Medications and DC Order Prescriptions: New amiodarone 200 mg Tablet 200 mg PO BIDM 30 Days Qty: 60 RF: 0 prednisone 10 mg Tablet 10 mg PO QAM Qty: 5 RF: 0 torsemide 20 mg Tablet 80 mg PO DAILY 30 Days Qty: 120 RF: 0 warfarin 6 mg tablet 3 mg PO DAILY Qty: 30 RF: 0 metolazone 2.5 mg tablet 2.5 mg PO .week Qty: 30 RF: 0 Continued pantoprazole 40 mg tablet,delayed release (DR/EC) 40 mg PO BID RF: 0 atorvastatin 10 mg tablet 10 mg PO HS RF: 0 levothyroxine 25 mcg tablet 25 mcg PO QAM RF: 0 levothyroxine 200 mcg tablet 200 mcg PO QAM RF: 0 metoprolol succinate 25 mg tablet extended release 24 hr 25 mg PO QAM RF: 0 fluoxetine 10 mg Tablet 10 mg PO DAILY RF: 0 insulin aspart U-100 [Novolog U-100 Insulin aspart] 100 unit/mL Solution 1 sliding scale dose SUBCUT TID RF: 0 fluoxetine 20 mg Tablet 20 mg PO DAILY RF: 0 hydralazine 50 mg Tablet 50 mg PO QID RF: 0 Linzess 145 mcg Capsule 145 mcg PO DAILYBB RF: 0 albuterol sulfate 90 mcg/actuation Hfa Aerosol Inhaler 2 puff INHALATION QID PRN (Reason: Shortness Of Breath Or Wheezing) RF: 0 Anoro Ellipta 62.5-25 mcg/actuation Blister With Device 1 ea inhalation DAILY Qty: 14 RF: 0 Lantus Solostar U-100 Insulin 100 unit/mL (3 mL) Insulin Pen 40 unit SUBCUT HS Qty: 0 RF: 0 Discontinued gabapentin 100 mg Capsule 100 mg PO TID RF: 0 furosemide [Lasix] 80 mg Tablet 80 mg PO BID RF: 0 Discharge Orders: Discharge Order (Routine); Ordered 04/13/20 Ordered By: Vikki Hatfield Admission Data Admit Date/Time: 03/24/20 21:50 Attending Provider: Vikki Hatfield Admit Provider: Minesh Chavis Primary Care Provider: Susanne Macias Other Providers: Minesh Chavis ; Tan Dukes ; Lauro Nielson ; Dariel Benton ; Olivier Suazo ; RaviMayo soares ; Rod Conn ; Kesha Arenas ; Jaimie Romero ; Cosmo Ceballos ; [place], ; [place] ; Noel Lopez ; Mars Almodovar ; Juan Rodriguez ; David Rebolledo Other Interventions: Discharge Summary Assessment (RN) Last Done: 04/13/20 13:55
[2020-04-13] MEDS ORDERED: WARFARIN SOD 6 MG TAB PO SCH (16:00)
== END 2020-04-13 14:15 | disposition home health service (06) | DRG 291 ==
LOC: ED 18:42 → SUATTDRO 21:50 → 2S 21:50

== ENCOUNTER 2020-05-17 05:17 | Inpatient (IN) ==
[2020-05-17] MEDS ORDERED: PANTOprazole 80 MG in DEXTROSE 5% 100 ML IV STA (05:23)
--- NOTE | 2020-05-17 05:28 | Emergency Department Note ---
Impression & Plan Acute upper GI bleed, Hypoglycemia, Acute alteration in mental status ED Provider Note Name: CROW BAUER Age: 64 Sex: M Arrives Via: Ambulance Informant: Patient, EMS ED Provider: Nick Cm MD Chief Complaint: Vomiting Impression: Acute Upper GI Bleed Hypoglycemia Acute Alteration in mental status Medical Decision Makin yr old male with very extensive PMH including afib on Coumadin and repeat hospitalizations (last 03/2020 for UTI/COPD flare). Arrives for altered mental status and vomiting blood. AMS seems suspicious for hypoglycemia and he seems more awake/with it after 1/2 amp D50 here. He clearly was vomiting blood prior to arrival as in oropharynx and dried on chin. He states bloody nose at some point but cant remember if before or after vomiting and exam without significant blood in nares at this time. Given steroid use history and on Coumadin urgently given Protonix IV. He does not appear to have history varices that I can see and thus will hold on octreotide. Vitals stable and he is stable. CT head completed given earlier AMS and on Coumadin which fortunately was negative. CXR concerning for congestive failure though he is not short of breath and only on 3 L NC at the moment. Labs with only mildly elevated INR thus will hold on Vit K at the moment. Hgb ok. Labs otherwise ok in fact renal function has improved significantly since previous admissions (may be due to being a bit on wet side). Prior Medical Record and Triage/Nursing Notes reviewed by Me Additional history obtained from chart/ems Differentials:Infection, hypoglycemia, electrolyte abnormalities, overdose, toxicologic, cardiac sources, intracerebral event, neurologic, trauma, as well as other pathologies. Vital Signs: reviewed and remarkable for no significant abnormalities Interventions: saline lock, protonix 80mg IV Labs:Reviewed and remarkable for mild inr elevation, stable hgb Imaging:[facility] Radiologist interpretation reviewed by me: CT head negative acute findings X ray results are stated below per my interpretation: Chest: 1 view: Congestive failure worsening from previous EKG:Per My Interpretation: Indication AMS: Sinus prosper very slow afib as very poor baseline at 57 bpm, qtc 541 with LBBB and no clear other extopy. No Ectopy. No Ischemia. Compared to EKG 04/06/20 similar though aflutter at that time. Cardiac/Tele Monitoring: Cardiac Monitoring: An Order was placed for continuous cardiac monitoring. The monitor shows a rate of 60 with a normal sinus rhythm. Consults:Dr Juan Jose Patten hospitalist Plan: Disposition:Hospitalization. Condition: Fair Prescriptions:none History of Present Illness:64 yr old male arrives for evaluation of vomiting blood. Patient apparently started throwing up blood around 3am. States red blood several times. No vomiting over the last hour while awaiting EMS and en route. Admits he had a bloody nose at some point tonight though he can't remember if he vomited before or after the bloody nose. Per EMS apparently cami armenta was quite somnolent/altered initially though en route he became much more with it. BSG 69 at home, no interventions. No meds prior to arrival. Nothing makes better nor worse. Denies vomiting issues but states history of GERD. Denies liver failure nor varices. He denies any recent black nor bloody stools. No trauma, falls, injuries. He is on coumadin for Afib and states recent abx use for UTI. Can not recall when INR last checked. He thinks he takes prednisone every day for his COPD. ROS: See above HPI for pertinent positives & negatives. A total of 10 systems reviewed and were otherwise negative. Past Medical History:See Below Past Surgical History:See Below Family History:See Below Social History:See Below Home Medications:See Below Allergies:See Below Vitals:Blood Pressure: 154/68, Pulse 61, RR 24, T 36.5C, O2 98% on 3L NC Physical Exam: GENERAL: Patient is chronically unwell appearing and in minimal distress. Dried blood over left face and adams. EYES: No scleral icterus, unremarkable pupils. ENT: Mucous membranes moist, no nasal congestion. NECK: No masses appreciated, nomeningismus, trachea is midline. RESPIRATORY: No dyspnea. Clear to auscultation and equal bilaterally. No wheeze, no rhonchi. CARDIOVASCULAR: Irregular.No murmurs, rubs, gallops appreciated. GASTROINTESTINAL: Abdomen soft, non-tender, no peritonitis.Bowel sounds positive.No masses appreciated. BACK: No midline tenderness, no CVA tenderness EXTREMITIES: Normal motion all extremities, no cyanosis, no edema. NEUROLOGIC: Alert and oriented, no acute motor or sensory deficits, no focal weakness, cranial nerves grossly intact. SKIN: Pale skin with varying aged bruising arms. No rash, no jaundice, no diaphoresis. PSYCH: Appropriate GCS: 15 ED Course: Times/Reassessments: Stable, breathing comfortably Hospitalist at bedside Nick Cm MD Past Med/Surg History Medical History (Updated 05/17/20 @ 11:40 by Rai Campo MD) Anemia Chronic diastolic heart failure COPD (chronic obstructive pulmonary disease) inhalers daily/prn and oxygen 2L n/c Diabetes mellitus, type 2 Elevated troponin I level Graves disease History of gastric ulcer Hyperlipidemia Hypertension Hypothyroidism Hypoxia Left bundle branch block chronic Morbid obesity with BMI of 50.0-59.9, adult Obesity hypoventilation syndrome On home oxygen therapy 2L N/C at all times SAFIA (obstructive sleep apnea) cpap--2L oxygen Surgical History History of [place]oplasty 2003 [place] [facility] [place] History of colonoscopy History of endoscopic sinus surgery History of esophagogastroduodenoscopy (EGD) History of tooth extraction History of wisdom tooth extraction S/P correction of deviated nasal septum Family History Mother Diabetes Hypertension Brother , dies at 44 yo from [place] Heart disease Other No family history of adverse response to anesthesia Social History Smoking Status: Former smoker Tobacco Type: Cigarettes Years Smoked: 60; Cigarettes Per Day: 4; Second Hand Exposure: Yes; Do You Dip or Chew Tobacco: No; Tobacco Cessation Education Requested by Patient: No Hx Alcohol Use: No Hx Substance Use: No Preferred Language: Sinhala Communication Ability: Effective Signal Tower Director Required: No Beliefs That Will Affect Care: None marital status: Single Current Living Situation: Family Current Living Situation Comment: Resides with brotherLonnie current occupational status: unemployed Other Information That Helps Us Care for You: No Feels Safe at Home: Yes Safety Concerns: Feels Safe At This Time Assistive Devices: CPAP and Oxygen - Continuous Allergies Allergies Allergy/AdvReac Type Severity Reaction Status Date / Time pollen extracts Allergy Mild sneezing/watery Verified 05/17/20 05:58 eyes Home Meds Home Medications Medication Instructions Recorded Confirmed atorvastatin 10 mg PO HS 10/24/18 05/17/20 levothyroxine 25 mcg PO QAM 10/24/18 05/17/20 levothyroxine 200 mcg PO QAM 10/24/18 05/17/20 metoprolol succinate 25 mg PO QAM 10/24/18 05/17/20 pantoprazole 40 mg tablet,delayed 40 mg PO BID 02/11/19 05/17/20 release albuterol sulfate 2 puff INHALATION QID PRN 11/29/19 05/17/20 fluoxetine 10 mg PO DAILY 11/29/19 05/17/20 fluoxetine 20 mg PO DAILY 11/29/19 05/17/20 hydralazine 50 mg PO QID 11/29/19 05/17/20 insulin aspart U-100 [Novolog 1 sliding scale dose SUBCUT TID 11/29/19 05/17/20 U-100 Insulin aspart] Lantus Solostar U-100 Insulin 40 unit SUBCUT HS 05/17/20 05/17/20 fluticasone propionate [Flonase] 2 spray INTRANASAL DAILY 05/17/20 05/17/20 furosemide 80 mg PO BID 05/17/20 05/17/20 gabapentin 100 mg PO TID 05/17/20 05/17/20 linaclotide 145 mcg PO QAM 05/17/20 05/17/20 menthol-zinc oxide [Calmoseptine] 1 applic TOPICAL TID PRN 05/17/20 05/17/20 multivit,stress formula-zinc 1 tab PO DAILY 05/17/20 05/17/20 [Stress Formula + Zinc] nystatin 1 applic TOPICAL BID 05/17/20 05/17/20 tramadol 50 mg PO BID 05/17/20 05/17/20 tramadol 50 mg PO Q4 PRN 05/17/20 05/17/20 warfarin 1 - 2 mg PO DAILY 05/17/20 05/17/20 Previous Rx's Medication Instructions Recorded Anoro Ellipta 1 ea INHALATION DAILY #14 ea 12/05/19 Results & Data (ED) Vital Signs Vital Signs - 24 hr 05/17/20 05:41 05/17/20 06:01 05/17/20 06:31 Temperature 36.5 C Temperature Source Oral Pulse Rate 61 54 L 54 L Pulse Rate from SpO2 Sensor 54 L 53 L Respiratory Rate 24 19 20 Respiratory Depth Normal Blood Pressure 154/68 H 150/66 H 133/76 Blood Pressure Mean 96 101 102 Pulse Oximetry 98 100 100 Oxygen Delivery Method Nasal Cannula Nasal Cannula Nasal Cannula Oxygen Flow Rate 3 3 3 Sepsis Recent Fever Within 48 Hours No Sepsis New/Unexplained Change in Mental Status Yes Sepsis Action Taken by Nursing No Action Required Laboratory Data Result diagrams: 05/17/20 11:39 05/17/20 11:39 Lab Results 05/17/20 05/17/20 05/17/20 Range/Units 05:26 05:26 05:26 WBC 4.92 (4.8-10.8) K/uL RBC 4.14 L (4.7-6.1) M/uL Hgb 11.5 L (14.0-18.0) g/dL Hct 37.5 L (42-52) % MCV 90.6 (80-100) fL MCH 27.8 (25-34) pg MCHC 30.7 L (32-36) g/dL RDW Std Deviation 65.4 H (36.4-46.3) fL RDW Coeff of Neena 20.3 H (11.5-14.5) % Plt Count 199 (130-400) K/uL MPV 9.1 (7.4-10.4) fL Immature Gran % (Auto) 0.4 % Neut % (Auto) 72.4 % Lymph % (Auto) 18.5 % [place] % (Auto) 7.7 % Eos % (Auto) 0.4 % Baso % (Auto) 0.6 % Neut # (Auto) 3.56 (1.4-6.5) K/uL Lymph # (Auto) 0.91 L (1.2-3.4) K/uL [place] # (Auto) 0.38 (0.11-0.59) K/uL Eos # (Auto) 0.02 (0-0.5) K/uL Baso # (Auto) 0.03 (0-0.2) K/uL Immature Gran # (Auto) 0.02 (0.00-0.02) K/uL Anisocytosis Present PT 16.0 H (9.0-12.0) Seconds INR 1.6 H (0.9-1.1) APTT 34.3 H (21.0-31.0) Seconds PTT Ratio 1.2 Sodium (136-145) mmol/L Potassium (3.5-5.1) mmol/L Chloride (98-107) mmol/L Carbon Dioxide (21-32) mmol/L Anion Gap (3-11) BUN (7-18) mg/dl Creatinine (0.6-1.4) mg/dl Est Cr Clr Drug Dosing ml/min Est GFR ( Amer) Est GFR (Non-Af Amer) BUN/Creatinine Ratio (10-20) Glucose (70-99) mg/dl POC Glucose (70-99) mg/dl Calcium (8.5-10.1) mg/dl Magnesium (1.8-2.4) mg/dl Total Bilirubin (0.2-1) mg/dl Direct Bilirubin (0-0.2) mg/dl AST (15-37) U/L ALT (12-78) U/L Alkaline Phosphatase (45-117) U/L Troponin I (0-0.045) ng/ml Total Protein (6.4-8.2) gm/dl Albumin (3.4-5.0) gm/dl Lipase (73-393) U/L Blood Type O Negative Antibody Screen NEGATIVE 05/17/20 05/17/20 05/17/20 Range/Units 05:26 05:28 06:08 WBC (4.8-10.8) K/uL RBC (4.7-6.1) M/uL Hgb (14.0-18.0) g/dL Hct (42-52) % MCV (80-100) fL MCH (25-34) pg MCHC (32-36) g/dL RDW Std Deviation (36.4-46.3) fL RDW Coeff of Neena (11.5-14.5) % Plt Count (130-400) K/uL MPV (7.4-10.4) fL Immature Gran % (Auto) % Neut % (Auto) % Lymph % (Auto) % [place] % (Auto) % Eos % (Auto) % Baso % (Auto) % Neut # (Auto) (1.4-6.5) K/uL Lymph # (Auto) (1.2-3.4) K/uL [place] # (Auto) (0.11-0.59) K/uL Eos # (Auto) (0-0.5) K/uL Baso # (Auto) (0-0.2) K/uL Immature Gran # (Auto) (0.00-0.02) K/uL Anisocytosis PT (9.0-12.0) Seconds INR (0.9-1.1) APTT (21.0-31.0) Seconds PTT Ratio Sodium 139 (136-145) mmol/L Potassium 4.3 (3.5-5.1) mmol/L Chloride 103 (98-107) mmol/L Carbon Dioxide 33 H (21-32) mmol/L Anion Gap 3.0 (3-11) BUN 25 H (7-18) mg/dl Creatinine 1.64 H (0.6-1.4) mg/dl Est Cr Clr Drug Dosing 71.4 ml/min Est GFR ( Amer) 49.8 Est GFR (Non-Af Amer) 42.9 BUN/Creatinine Ratio 15.2 (10-20) Glucose 61 L (70-99) mg/dl POC Glucose 59 L* 125 H (70-99) mg/dl Calcium 8.5 (8.5-10.1) mg/dl Magnesium 2.3 (1.8-2.4) mg/dl Total Bilirubin 0.4 (0.2-1) mg/dl Direct Bilirubin 0.2 (0-0.2) mg/dl AST 34 (15-37) U/L ALT 17 (12-78) U/L Alkaline Phosphatase 127 H (45-117) U/L Troponin I 0.032 (0-0.045) ng/ml Total Protein 7.7 (6.4-8.2) gm/dl Albumin 2.3 L (3.4-5.0) gm/dl Lipase 30 L (73-393) U/L Blood Type Antibody Screen Administered Medications Atorvastatin Calcium (Atorvastatin 10 Mg Tab) 10 mg PO HS CAROL ANN Stop: 06/16/20 20:59 Last Admin: 05/17/20 20:12 Dose: 10 mg Documented by: [id number] Fluticasone Propionate (Fluticasone Propionate Na Spr 16 Gm Btl) 2 sprays NA D AILY CAROL ANN Stop: 06/16/20 09:14 Last Admin: 05/17/20 10:16 Dose: Not Given Documented by: [id number] Furosemide (Furosemide 80 Mg Tab) 80 mg PO BID17 CAROL ANN Stop: 06/16/20 16:59 Last Admin: 05/17/20 17:43 Dose: 80 mg Documented by: [id number] Gabapentin (Gabapentin 100 Mg Cap) 100 mg PO TID ON LICENSE OF [facility] Stop: 06/16/20 09:14 Last Admin: 05/17/20 20:12 Dose: 100 mg Documented by: [id number] Admin: 05/17/20 13:39 Dose: 100 mg Documented by: [id number] Admin: 05/17/20 10:11 Dose: 100 mg Documented by: [id number] Hydralazine HCl (Hydralazine Tab 50 Mg Tab) 50 mg PO QID ON LICENSE OF [facility] Stop: 06/16/20 09:14 Last Admin: 05/17/20 20:12 Dose: 50 mg Documented by: [id number] Admin: 05/17/20 17:42 Dose: 50 mg Documented by: [id number] Admin: 05/17/20 13:38 Dose: 50 mg Documented by: [id number] Admin: 05/17/20 10:12 Dose: 50 mg Documented by: [id number] Pantoprazole Sodium 40 mg/ (Dextrose) 100 mls @ 20 mls/hr IV Q5H ON LICENSE OF [facility] Stop: 06/16/20 09:14 Last Admin: 05/17/20 20:11 Dose: 8 mg/hr, 20 mls/hr Documented by: [id number] Infusion: 05/17/20 19:48 Dose: 8 mg/hr, 20 mls/hr Documented by: [id number] Admin: 05/17/20 14:48 Dose: 8 mg/hr, 20 mls/hr Documented by: [id number] Infusion: 05/17/20 14:48 Dose: 8 mg/hr, 20 mls/hr Documented by: [id number] Admin: 05/17/20 10:08 Dose: 8 mg/hr, 20 mls/hr Documented by: [id number] Insulin Aspart (Insulin Aspart 100 Units/Ml 3 Ml Pen) 0 units SC Q6 ON LICENSE OF [facility] Stop: 06/16/20 17:59 Last Admin: 05/17/20 17:43 Dose: Not Given Documented by: [id number] Cosigned by: [id number] Levothyroxine Sodium (Levothyroxine Sodium 25 Mcg Tablet) 25 mcg PO DAILYBB ON LICENSE OF [facility] Stop: 06/16/20 09:14 Last Admin: 05/17/20 10:12 Dose: 25 mcg Documented by: [id number] Levothyroxine Sodium (Levothyroxine Sodium 200 Mcg Tablet) 200 mcg PO DAILYBB ON LICENSE OF [facility] Stop: 06/16/20 09:14 Last Admin: 05/17/20 10:11 Dose: 200 mcg Documented by: [id number] Metoprolol Succinate (Metoprolol Succ 25mg Ext Rel Tab) 25 mg PO QAM ON LICENSE OF [facility] Stop: 06/16/20 09:14 Last Admin: 05/17/20 10:08 Dose: Not Given Documented by: [id number] Miscellaneous (Order Awaiting Action) 1 ea N/A QS ON LICENSE OF [facility] Stop: 06/16/20 15:59 Last Admin: 05/17/20 15:27 Dose: Not Given Documented by: [id number] Nystatin (Nystatin Powder 15gm Btl) 1 appln EXT BID ON LICENSE OF [facility] Stop: 06/16/20 09:29 Last Admin: 05/17/20 20:13 Dose: 1 appln Documented by: [id number] Admin: 05/17/20 10:08 Dose: 1 appln Documented by: [id number] Umeclidinium/Vilanterol (Umeclidinium/Vilanterol 62.5/25mcg 7 Puffs/Inhaler) 1 puffs INH DAILY CAROL ANN Stop: 06/16/20 09:29 Last Admin: 05/17/20 11:51 Dose: 1 puffs Documented by: [id number] Discontinued Medications Dextrose (Dextrose 50% 50 Ml Syringe) 25 ml IV NOW ONE Stop: 05/17/20 05:31 Last Admin: 05/17/20 05:48 Dose: 25 ml Documented by: [id number] Fluoxetine HCl (Fluoxetine Hcl 20 Mg Cap) 20 mg PO NOW ONE Stop: 05/17/20 09:31 Last Admin: 05/17/20 10:10 Dose: 20 mg Documented by: [id number] Fluoxetine HCl (Fluoxetine Hcl 10 Mg Cap) 10 mg PO NOW ONE Stop: 05/17/20 09:31 Last Admin: 05/17/20 10:10 Dose: 10 mg Documented by: [id number] Pantoprazole Sodium 80 mg/ (Dextrose) 100 mls @ 400 mls/hr IV ONE STA Stop: 05/17/20 05:37 Last Infusion: 05/17/20 06:06 Dose: 0 mls/hr Documented by: [id number] Admin: 05/17/20 05:51 Dose: 400 mls/hr Documented by: [id number] Sodium Chloride (Nss 1000ml) 1,000 mls @ 75 mls/hr IV .[id number] ON LICENSE OF [facility] Stop: 06/16/20 09:05 Last Infusion: 05/17/20 14:38 Dose: 0 mls/hr Documented by: [id number] Admin: 05/17/20 10:13 Dose: 75 mls/hr Documented by: [id number] Insulin Aspart (Insulin Aspart 100 Units/Ml 3 Ml Pen) 0 units SC ACHS CAROL ANN Stop: 06/16/20 09:05 Last Admin: 05/17/20 17:44 Dose: Not Given Documented by: [id number] Cosigned by: [id number] Admin: 05/17/20 11:54 Dose: Not Given Documented by: [id number] Cosigned by: [id number] Admin: 05/17/20 10:13 Dose: Not Given Documented by: [id number] Cosigned by: [id number] Phytonadione (Phytonadione 5 Mg Tab) 2.5 mg PO NOW STA Stop: 05/17/20 09:07 Last Admin: 05/17/20 10:09 Dose: 2.5 mg Documented by: [id number] Discharge Plan Visit Data Chief Complaint: Altered Mental Status Stated Complaint: ALTERED MENTAL STATUS/VOMITING BLOOD ED Provider: Nick Cm Discharge Problem: Acute upper GI bleed, Hypoglycemia, Acute alteration in mental status Patient Disposition: Admitted As Inpatient Discharge Instructions Interventions: ED Discharge Assessment Last Done: 05/17/20 07:47
[2020-05-17] MEDS ORDERED: DEXTROSE 50% 50 ML SYRINGE IV ONE (05:30)
[2020-05-17 05:41] LABS: Basophils # (auto) 0.03 K/uL (0-0.2); Basophils % (auto) 0.6 %; Eosinophils # (auto) 0.02 K/uL (0-0.5); Eosinophils % (auto) 0.4 %; Hematocrit (blood only) 37.5 % (42-52); Hemoglobin 11.5 g/dL (14.0-18.0); Immature Granulocytes # (auto) 0.02 K/uL (0.00-0.02); Immature Granulocytes % (auto) 0.4 %; Lymphocytes # (auto) 0.91 K/uL (1.2-3.4); Lymphocytes % (auto) 18.5 %; Mean Corpuscular Hemoglobin 27.8 pg (25-34); Mean Corpuscular Hgb Conc 30.7 g/dL (32-36); Mean Corpuscular Volume 90.6 fL (80-100); Mean Platelet Volume 9.1 fL (7.4-10.4); Monocytes # (auto) 0.38 K/uL (0.11-0.59); Monocytes % (auto) 7.7 %; Neutrophils # (auto) 3.56 K/uL (1.4-6.5); Neutrophils % (auto) 72.4 %; Platelet Count 199 K/uL (130-400); RDW Coefficient of Variation 20.3 % (11.5-14.5); RDW Standard Deviation 65.4 fL (36.4-46.3); Red Blood Count 4.14 M/uL (4.7-6.1); White Blood Count 4.92 K/uL (4.8-10.8)
[2020-05-17 05:51] LABS: INR 1.6 (0.9-1.1); Partial Thromboplastin Ratio 1.2; Partial Thromboplastin Time 34.3 Seconds (21.0-31.0)
[2020-05-17 06:00] LABS: Albumin Level 2.3 gm/dl (3.4-5.0); BUN Creatinine Ratio 15.2 (10-20); Bilirubin Direct 0.2 mg/dl (0-0.2); Calcium 8.5 mg/dl (8.5-10.1); Creatinine Clr Calc Pharmacy 71.4 ml/min; Est GFR (African American) 49.8; Est GFR (Non-African American) 42.9; Magnesium 2.3 mg/dl (1.8-2.4); Potassium 4.3 mmol/L (3.5-5.1)
[2020-05-17 06:06] LABS: Bilirubin,Total 0.4 mg/dl (0.2-1); Total Protein 7.7 gm/dl (6.4-8.2); Troponin I 0.032 ng/ml (0-0.045)
[2020-05-17 06:28] LABS: Anisocytosis Present
--- NOTE | 2020-05-17 06:40 | CT Scan Report ---
CT head/brain wo con CLINICAL HISTORY: 64 years-old Male with AMS. Acutely altered mental status TECHNIQUE: Multiple axial CT images of the head were obtained without contrast. A dose lowering tech nique was utilized adhering to the principles of ALARA. CT DOSE: 773.97 mGy.cm COMPARISON: Head CT 03/24/2020, 11/29/2019. FINDINGS: No acute intracranial hemorrhage, midline shift, intracranial mass, hydrocephalus, territorial ischem ia or abnormal extra-axial collection. Mild age-related involutional changes. Mild patchy white matte r hypodensities suggest chronic microvascular ischemic disease. Cerebral vascular calcifications. Ill -defined hypodensity involving the medial aspect of the right cerebellar hemisphere along its mid and superior margins is redemonstrated suggestive of remote infarct. Study is mildly motion degraded. The calvarium is intact. Bilateral optic nerve drusen's. The paranasal sinuses, mastoid air cells, an d middle ear cavities are clear. IMPRESSION: No acute intracranial abnormality. ACT 112: Negative or not required by law. The above report was generated using voice recognition software. It may contain grammatical, syntax o r spelling errors. Electronically signed by: Brenton Aponte M.D. 05/17/2020 6:39 AM
--- NOTE | 2020-05-17 07:30 | XRay Report ---
XR chest 1V portable CLINICAL HISTORY: Vomiting blood COMPARISON STUDY: 04/06/2020 FINDINGS: The patient is rotated. There is a right pleural effusion. There are bilateral lower lung z one airspace opacities.[Underlying pulmonary vascular congestion may be present. The study is signifi cantly limited from a technical standpoint. IMPRESSION: 1. Technically limited study 2. Right pleural effusion 3. Bilateral lower lung zone airspace opacities 4. Possible pulmonary vascular congestion ACT 112: Negative or not required by law. Electronically signed by: Sebastián Gómez M.D. 05/17/2020 7:29 AM
--- NOTE | 2020-05-17 08:19 | CT Scan Report ---
CT chest wo con CLINICAL HISTORY: sob COMPARISON STUDY: 03/26/2020 CT DOSE: 1400.78 mGy.cm TECHNIQUE: CT of the thorax was performed from the thoracic inlet to the lung bases. Images are revi ewed in the axial, sagittal, and coronal planes. IV contrast was not administered for this examinatio n. A dose lowering technique was utilized adhering to the principles of ALARA. FINDINGS: Thyroid: No significant thyroid tissue is visualized on this noncontrast study Thoracic aorta: The thoracic aorta is normal in course and caliber, noting standard 3 vessel arch yvonne erica. Heart: There are coronary artery calcifications present. Lungs and pleural spaces: There are bilateral pleural effusions right larger than left. There are dep endent airspace opacities, likely atelectatic. Mediastinum: There are minimally enlarged mediastinal lymph nodes measuring up to 12 mm in short axis . Rosangela: There is no evidence of pathologic hilar adenopathy given the limitations of a noncontrast stud y Axilla: There is no evidence of pathologic axillary lymphadenopathy Upper abdomen: The serosal surface of the liver appears nodular. There are mildly enlarged upper abd ominal lymph nodes, the region of the gastrohepatic ligament.. Skeletal structures: There are no lytic or blastic osseous lesions. IMPRESSION: 1. Persistent cardiomegaly and bilateral pleural effusions right greater than left 2. Dependent airspace opacities, likely atelectatic 3. Persistent mild mediastinal and upper abdominal lymphadenopathy 4. Nodular hepatic contour ACT 112: Negative or not required by law. Electronically signed by: Sebastián Gómez M.D. 05/17/2020 8:18 AM
--- NOTE | 2020-05-17 08:47 | History and Physical Report ---
DATE OF ADMISSION: 05/17/2020 CHIEF COMPLAINT: Hematemesis and confusion. HISTORY OF PRESENT ILLNESS: This is a 64-year-old male with past medical history significant for morbid obesity and chronic respiratory failure with hypoxia and hypercarbia, obstructive sleep apnea on BiPAP; chronic diastolic failure, COPD, insulin-dependent type 2 diabetes, hypothyroidism, bilateral lymphedema, chronic kidney disease stage III, bedbound, history of atrial flutter, who lives with his brother, comes in because of hematemesis and shortness of breath. The patient says around 2:30 a.m., he was having blood coming out from his mouth and also he was getting short of breath, it was not getting better, so he called ambulance and brought in here and he came in, he seemed to be confused, but his sugars were low in the 60s, when sugars improved his mental status was back to his baseline. Denies any chest pain. Currently, shortness of breath improved. He is feeling better. Denies any headache, no blurred vision, no earache, no runny nose, no sore throat, no nausea, no vomiting. His said his appetite is down since last couple of days. No abdominal pain. Denies any diarrhea, has constipation. He does not know whether he has blood in stools or black stool, brother generally notices it, but brother did not tell him, so he does not think he has any bleeding from his bowel movement, normal bladder movements. Currently, resting comfortably and hemodynamically stable. ALLERGIES: CAT DANDER. PAST MEDICAL HISTORY: As mentioned above. PAST SURGICAL HISTORY: EGDs, deviated septum repair. MEDICATIONS: The patient is on albuterol 2 puffs inhalation q.i.d. p.r.n., Anoro Ellipta 1 inhalation daily, atorvastatin 10 mg p.o. at bedtime, fluoxetine 30 mg p.o. daily, Flonase 2 sprays intranasal daily, Lasix 80 mg p.o. b.i.d., gabapentin 100 mg p.o. t.i.d., hydralazine 50 mg p.o. b.i.d., Insulin Aspart sliding scale, Lantus 40 units at bedtime, levothyroxine 225 mcg p.o. daily, Linzess 145 mcg p.o. a.m., Calmoseptine topical t.i.d. p.r.n., Toprol-XL 25 mg p.o. a.m., multivitamins 1 tablet daily, nystatin topical b.i.d., Protonix 40 mg p.o. b.i.d., tramadol 50 mg p.o. q. 4 hours p.r.n., tramadol 50 mg p.o. b.i.d., warfarin 1-2 mg p.o. daily. FAMILY HISTORY: Significant for father had asthma, hypertension, COPD. Mother has diabetes, hypertension, brother has bipolar, colon cancer. SOCIAL HISTORY: Single, quit smoking in 2005, smoked an average a pack a day for 48 years. No drug use. No alcohol use. REVIEW OF SYSTEMS: As per HPI. Rest of review of systems negative. PHYSICAL EXAMINATION: GENERAL: The patient is morbidly obese, currently not in acute distress. VITAL SIGNS: Temperature 36.5, pulse 54, respiratory rate 20, blood pressure 133/76, oxygen 100% on 3 liters. HEENT: Pupils equal, round, and reactive to light. Oral mucosa some blood seen around his mouth. NECK: No neck masses. Supple. CARDIOVASCULAR: S1, S2, regular rate and rhythm, no murmur, no gallop. RESPIRATORY SYSTEM: Normal AP diameter. No accessory muscle use. No wheezing, no crackles. ABDOMEN: Soft, bowel sounds present, nontender. No distention. CENTRAL NERVOUS SYSTEM: Alert and oriented, can tell his name, tell his date of , knows that he is in the hospital, he was somewhat confused with dates he thought it is end of March, but later corrected. Insight is good. Speech clear. No facial droop seen. Moves extremities. Obeys commands. EXTREMITIES: No edema, no erythema. LABORATORY DATA: WBC 4.9, hemoglobin 11.5, hematocrit 37.5, platelets 199. PT 16, INR 1.6, APTT 34.3. Sodium 139, potassium 4.3, chloride 103, bicarbonate 33, BUN 25, creatinine 1.64, serum glucose 61, calcium 8.5, magnesium 2.3, total bilirubin 0.4, direct bilirubin 0.2, AST 34, ALT 17, alkaline phosphatase 127. Troponin I 0.03. Lipase 30. SARS-COVID negative. CT of the head, no acute intracranial abnormality. Chest x-ray, poor quality film. ASSESSMENT AND PLAN: This is a 64-year-old male who presents with hematemesis and shortness of breath. 1. Hematemesis. The patient is on Coumadin for his atrial fibrillation. Currently bleeding stopped, hemoglobin is stable at 11.5, INR is 1.6 we will give 2.5 mg of p.o. vitamin K and started on Protonix drip, keep him n.p.o. except meds and consult GI. Hemodynamically stable. Also make sure that it is not coming from the lungs. We will follow the CT of the chest. 2. Chronic Anemia. Baseline hb around 9-10. Today hb 11.5. Will follow repeat labs. 3. Chronic respiratory failure with hypoxia, hypercarbia and obstructive sleep apnea on BiPAP and chronic obstructive pulmonary disease. Continue his home oxygen and continue his BiPAP at bedtime and continue his home inhalers. 4. Chronic diastolic congestive heart failure. Continue his home Lasix as the patient is currently n.p.o. getting gentle fluids. Monitor for volume overload. We will follow CT chest, if CT chest shows pulmonary congestion, we will stop the fluids. 5. Hypothyroidism. Continue home Synthroid. 6. Diabetes. The patient is on Lantus 40 units at bedtime and insulin sliding scale. The patient's sugars were in 60s when he came in and was somewhat confused. Metabolic encephalopathy secondary to hypoglycemia. Currently n.p.o., ordered Lantus 20 units at bedtime and insulin sliding scale. Follow the blood sugars closely and adjust insulin regimen. 7. History of paroxysmal ventricular tachycardia. Continue his home amiodarone. 8. History of atrial flutter. Continue his Toprol and amiodarone. INR is 1.6. We are holding the Coumadin because of the hematemesis. 9. Acute kidney injury on chronic kidney disease stage III, baseline creatinine of around 1.2, currently creatinine 1.6. Getting gentle fluids. and on diuretics. We will follow the repeat labs. 10. Hypertension, on Toprol-XL, hydralazine. Holding the diuretics and monitor the blood pressure. 11. Hyperlipidemia. Continue statin. 12. Depression. Continue fluoxetine. 13. Deep venous thrombosis prophylaxis, sequential compression devices for now. 14. Disposition: Closely monitor in the tele floor. Level 1 full code as per my discussion with the patient. PT and OT prior to discharge. Social service to help with discharge planning. RON
[2020-05-17] MEDS ORDERED: ONDANSETRON INJ 2 MG/ML 2 ML VIAL IV PRN (09:06)
[2020-05-17] MEDS ORDERED: ALBUTEROL HFA 8 GM INHALER INH PRN (09:06)
[2020-05-17] MEDS ORDERED: ACETAMINOPHEN 325 MG TAB PO PRN (09:06)
[2020-05-17] MEDS ORDERED: NITROGLYCERIN SL 0.4 MG/TAB TAB SL PRN (09:06)
[2020-05-17] MEDS ORDERED: SODIUM CHLORIDE 0.9% 1000ML 1,000 ML IV SCH (09:06)
[2020-05-17] MEDS ORDERED: PHYTONADIONE 5 MG TAB PO STA (09:06)
[2020-05-17] MEDS ORDERED: MENTHOL-ZINC OXIDE 360 APPLN/120 GM TUBE EXT PRN (09:15)
[2020-05-17] MEDS ORDERED: FLUoxetine HCL 20 MG CAP PO ONE (09:30)
[2020-05-17] MEDS ORDERED: FLUoxetine HCL 10 MG CAP PO ONE (09:30)
--- NOTE | 2020-05-17 09:42 | Gastrointestinal Consultation ---
Date of Consultation May 17, 2020 Assessment & Plan (1) Acute upper GI bleed: 64 year old male morbid obesity and chronic respiratory failure withhypoxia and hypercarbia, obstructive sleep apnea on BiPAP; chronic diastolicfailure, COPD, insulin-dependent type 2 diabetes, hypothyroidism, bilateral lymphedema, chronic kidney disease stage III, was bedbound, history of atrial flutter, who lives with his brother, comes in because of hematemesis and shortness of breath - GI asked to evaluate. He is on AC w/ coumadin, INR was 1.7, past CT w/ cirrhosis, chronic NSAID use 8 tablets advil daily and recent steroid taper. Hemodynamically stable, HGB above baseline without BUN elevation. DDX: PUD vs less likely variceal - Can use ice chips/sips today - NPO after midnight - EGD in the AM - Hold AC - Trend INR - No NSAIDs - Continue IV PPI bolus and drip - Trend HGB - Transfuse per primary team, HGB < 7 Will follow. Supervising Physician Co-Signing Physician Notes I have seen and examined the patient and discused the management with [facility]. 64 yo male with a history of cirrhosis on imaging, meld burke 9 (driven by creatinine, normal inr and normal tb), admitted through the er to the icu for hypoglycemia with altered mental status and reports of hematemesis. He has had no further hematemesis, no melena. Last EGD by Dr. Mcgovern in 10/2018 showing no evidence of varices, superficial of duodenal ulcers. PE notable for large male in nad, heent - no scleral icterus, pulm- o2 on, no labored breathing, abd - soft nt nd +bs, ext - no zeina MELD 9 recent steroid use, nsaid use - ? ulcer, egd tomorrow hold coumadin. History of Present Illness Reason for Consultation: hematemesis Requesting Physician: Alber Attending Physician: Rai Campo MD History of Present Illness 64 year old male w/ history of morbid obesity and chronic respiratory failure withhypoxia and hypercarbia, obstructive sleep apnea on BiPAP; chronic diastolic , COPD, insulin-dependent type 2 diabetes, hypothyroidism, bilaterallymphedema, chronic kidney disease stage III, was bedbound, history of atrial flutter, who lives with his brother, comes in because of hematemesis and shortness of breath presenting through ED for AMS, SOB and question of both hematemesis of hemoptysis. Pt was seen and evaluated, chart reviewed. Awake, alert to person and place, not time. Denies abd pain. No nausea. No vomiting. Does not recall events that led to ED evaluation. No BM today. Denies black/bloody stools. No lightheadedness, dizziness, CP, SOB. No fever, chills, CP. Chronic SOB. AC coumadin Using Advil 8 tablets daily for TOTH x [address] from last month ? cirrhosis Had duodenal ulcer in past No varices in past Allergies Allergy/AdvReac Type Severity Reaction Status Date / Time pollen extracts Allergy Mild sneezing/watery Verified 05/17/20 05:58 eyes Home Medications Medication Instructions Recorded Confirmed Type atorvastatin 10 mg PO HS 10/24/18 05/17/20 History levothyroxine 25 mcg PO QAM 10/24/18 05/17/20 History levothyroxine 200 mcg PO QAM 10/24/18 05/17/20 History metoprolol succinate 25 mg PO QAM 10/24/18 05/17/20 History pantoprazole 40 mg tablet,delayed 40 mg PO BID 02/11/19 05/17/20 History release albuterol sulfate 2 puff INHALATION QID PRN 11/29/19 05/17/20 History fluoxetine 10 mg PO DAILY 11/29/19 05/17/20 History fluoxetine 20 mg PO DAILY 11/29/19 05/17/20 History hydralazine 50 mg PO QID 11/29/19 05/17/20 History insulin aspart U-100 [Novolog 1 sliding scale dose SUBCUT TID 11/29/19 05/17/20 History U-100 Insulin aspart] Anoro Ellipta 1 ea INHALATION DAILY #14 ea 12/05/19 05/17/20 Rx Lantus Solostar U-100 Insulin 40 unit SUBCUT HS 05/17/20 05/17/20 History fluticasone propionate [Flonase] 2 spray INTRANASAL DAILY 05/17/20 05/17/20 History furosemide 80 mg PO BID 05/17/20 05/17/20 History gabapentin 100 mg PO TID 05/17/20 05/17/20 History linaclotide 145 mcg PO QAM 05/17/20 05/17/20 History menthol-zinc oxide [Calmoseptine] 1 applic TOPICAL TID PRN 05/17/20 05/17/20 History multivit,stress formula-zinc 1 tab PO DAILY 05/17/20 05/17/20 History [Stress Formula + Zinc] nystatin 1 applic TOPICAL BID 05/17/20 05/17/20 History tramadol 50 mg PO BID 05/17/20 05/17/20 History tramadol 50 mg PO Q4 PRN 05/17/20 05/17/20 History warfarin 1 - 2 mg PO DAILY 05/17/20 05/17/20 History Patient History Medical History (Updated 05/17/20 @ 06:09 by Nick Cm MD) Anemia Chronic diastolic heart failure COPD (chronic obstructive pulmonary disease) inhalers daily/prn and oxygen 2L n/c Diabetes mellitus, type 2 Elevated troponin I level Graves disease History of gastric ulcer Hyperlipidemia Hypertension Hypothyroidism Hypoxia Left bundle branch block chronic Morbid obesity with BMI of 50.0-59.9, adult Obesity hypoventilation syndrome On home oxygen therapy 2L N/C at all times SAFIA (obstructive sleep apnea) cpap--2L oxygen Surgical History History of [place]oplasty 2003 [place] [facility] [place] History of colonoscopy History of endoscopic sinus surgery History of esophagogastroduodenoscopy (EGD) History of tooth extraction History of wisdom tooth extraction S/P correction of deviated nasal septum Family History Mother Diabetes Hypertension Brother , dies at 44 yo from [place] Heart disease Other No family history of adverse response to anesthesia Social History Smoking Status: Former smoker Tobacco Type: Cigarettes Years Smoked: 60; Cigarettes Per Day: 4; Second Hand Exposure: Yes; Do You Dip or Chew Tobacco: No; Tobacco Cessation Education Requested by Patient: No Hx Alcohol Use: No Hx Substance Use: No Preferred Language: Mohawk Communication Ability: Effective Key Filer Required: No Beliefs That Will Affect Care: None marital status: Single Current Living Situation: Family Current Living Situation Comment: Resides with brother, Lonnie Douglass current occupational status: unemployed Other Information That Helps Us Care for You: No Feels Safe at Home: Yes Safety Concerns: Feels Safe At This Time Assistive Devices: CPAP and Oxygen - Continuous Review of Systems Constitutional: no fever, no chills and no fatigue Respiratory: + cough; no dyspnea Cardiovascular: + dyspnea; no chest pain Gastrointestinal: no abdominal pain, no coffee ground emesis, no hematemesis, no blood in stools and no melena Physical Exam Constitutional: + ill appearing and + morbidly obese Neck: trachea midline Respiratory: normal respiratory effort Gastrointestinal (Abdomen): normal bowel sounds, soft, nontender, no hepatosplenomegaly obese abd but soft Skin: no rashes, warm and dry Results & Data ([facility]) Vital Signs (Past 12 Hours) Vital Signs Temp Pulse Pulse Resp BP BP Pulse Ox 05/17/20 09:00 46 L 16 99 05/17/20 08:30 36.5 C 50 L 16 97 05/17/20 08:25 37.0 C 50 L 52 L 17 128/68 99 05/17/20 07:30 22 130/82 100 05/17/20 07:00 52 L 17 137/82 99 05/17/20 06:31 54 L 20 133/76 100 05/17/20 06:01 54 L 19 150/66 H 100 05/17/20 05:41 36.5 C 61 24 154/68 H 98 Laboratory Results 05/17/20 05/17/20 05/17/20 Range/Units Unknown 06:08 05:28 WBC (4.8-10.8) K/uL RBC (4.7-6.1) M/uL Hgb (14.0-18.0) g/dL Hct (42-52) % MCV (80-100) fL MCH (25-34) pg MCHC (32-36) g/dL RDW Std Deviation (36.4-46.3) fL RDW Coeff of Neena (11.5-14.5) % Plt Count (130-400) K/uL MPV (7.4-10.4) fL Immature Gran % (Auto) % Neut % (Auto) % Lymph % (Auto) % [place] % (Auto) % Eos % (Auto) % Baso % (Auto) % Neut # (Auto) (1.4-6.5) K/uL Lymph # (Auto) (1.2-3.4) K/uL [place] # (Auto) (0.11-0.59) K/uL Eos # (Auto) (0-0.5) K/uL Baso # (Auto) (0-0.2) K/uL Immature Gran # (Auto) (0.00-0.02) K/uL Anisocytosis PT (9.0-12.0) Seconds INR (0.9-1.1) APTT (21.0-31.0) Seconds PTT Ratio Sodium (136-145) mmol/L Potassium (3.5-5.1) mmol/L Chloride (98-107) mmol/L Carbon Dioxide (21-32) mmol/L Anion Gap (3-11) BUN (7-18) mg/dl Creatinine (0.6-1.4) mg/dl Est Cr Clr Drug Dosing ml/min Est GFR ( Amer) Est GFR (Non-Af Amer) BUN/Creatinine Ratio (10-20) Glucose (70-99) mg/dl POC Glucose 125 H 59 L* (70-99) mg/dl Calcium (8.5-10.1) mg/dl Magnesium (1.8-2.4) mg/dl Total Bilirubin (0.2-1) mg/dl Direct Bilirubin (0-0.2) mg/dl AST (15-37) U/L ALT (12-78) U/L Alkaline Phosphatase (45-117) U/L Troponin I (0-0.045) ng/ml Total Protein (6.4-8.2) gm/dl Albumin (3.4-5.0) gm/dl Lipase (73-393) U/L SARS-CoV-2 Ag (Rapid) Negative (Negative) Blood Type Antibody Screen 05/17/20 05/17/20 05/17/20 Range/Units 05:26 05:26 05:26 WBC 4.92 (4.8-10.8) K/uL RBC 4.14 L (4.7-6.1) M/uL Hgb 11.5 L (14.0-18.0) g/dL Hct 37.5 L (42-52) % MCV 90.6 (80-100) fL MCH 27.8 (25-34) pg MCHC 30.7 L (32-36) g/dL RDW Std Deviation 65.4 H (36.4-46.3) fL RDW Coeff of Neena 20.3 H (11.5-14.5) % Plt Count 199 (130-400) K/uL MPV 9.1 (7.4-10.4) fL Immature Gran % (Auto) 0.4 % Neut % (Auto) 72.4 % Lymph % (Auto) 18.5 % [place] % (Auto) 7.7 % Eos % (Auto) 0.4 % Baso % (Auto) 0.6 % Neut # (Auto) 3.56 (1.4-6.5) K/uL Lymph # (Auto) 0.91 L (1.2-3.4) K/uL [place] # (Auto) 0.38 (0.11-0.59) K/uL Eos # (Auto) 0.02 (0-0.5) K/uL Baso # (Auto) 0.03 (0-0.2) K/uL Immature Gran # (Auto) 0.02 (0.00-0.02) K/uL Anisocytosis Present PT 16.0 H (9.0-12.0) Seconds INR 1.6 H (0.9-1.1) APTT 34.3 H (21.0-31.0) Seconds PTT Ratio 1.2 Sodium 139 (136-145) mmol/L Potassium 4.3 (3.5-5.1) mmol/L Chloride 103 (98-107) mmol/L Carbon Dioxide 33 H (21-32) mmol/L Anion Gap 3.0 (3-11) BUN 25 H (7-18) mg/dl Creatinine 1.64 H (0.6-1.4) mg/dl Est Cr Clr Drug Dosing 71.4 ml/min Est GFR ( Amer) 49.8 Est GFR (Non-Af Amer) 42.9 BUN/Creatinine Ratio 15.2 (10-20) Glucose 61 L (70-99) mg/dl POC Glucose (70-99) mg/dl Calcium 8.5 (8.5-10.1) mg/dl Magnesium 2.3 (1.8-2.4) mg/dl Total Bilirubin 0.4 (0.2-1) mg/dl Direct Bilirubin 0.2 (0-0.2) mg/dl AST 34 (15-37) U/L ALT 17 (12-78) U/L Alkaline Phosphatase 127 H (45-117) U/L Troponin I 0.032 (0-0.045) ng/ml Total Protein 7.7 (6.4-8.2) gm/dl Albumin 2.3 L (3.4-5.0) gm/dl Lipase 30 L (73-393) U/L SARS-CoV-2 Ag (Rapid) (Negative) Blood Type Antibody Screen 05/17/20 Range/Units 05:26 WBC (4.8-10.8) K/uL RBC (4.7-6.1) M/uL Hgb (14.0-18.0) g/dL Hct (42-52) % MCV (80-100) fL MCH (25-34) pg MCHC (32-36) g/dL RDW Std Deviation (36.4-46.3) fL RDW Coeff of Neena (11.5-14.5) % Plt Count (130-400) K/uL MPV (7.4-10.4) fL Immature Gran % (Auto) % Neut % (Auto) % Lymph % (Auto) % [place] % (Auto) % Eos % (Auto) % Baso % (Auto) % Neut # (Auto) (1.4-6.5) K/uL Lymph # (Auto) (1.2-3.4) K/uL [place] # (Auto) (0.11-0.59) K/uL Eos # (Auto) (0-0.5) K/uL Baso # (Auto) (0-0.2) K/uL Immature Gran # (Auto) (0.00-0.02) K/uL Anisocytosis PT (9.0-12.0) Seconds INR (0.9-1.1) APTT (21.0-31.0) Seconds PTT Ratio Sodium (136-145) mmol/L Potassium (3.5-5.1) mmol/L Chloride (98-107) mmol/L Carbon Dioxide (21-32) mmol/L Anion Gap (3-11) BUN (7-18) mg/dl Creatinine (0.6-1.4) mg/dl Est Cr Clr Drug Dosing ml/min Est GFR ( Amer) Est GFR (Non-Af Amer) BUN/Creatinine Ratio (10-20) Glucose (70-99) mg/dl POC Glucose (70-99) mg/dl Calcium (8.5-10.1) mg/dl Magnesium (1.8-2.4) mg/dl Total Bilirubin (0.2-1) mg/dl Direct Bilirubin (0-0.2) mg/dl AST (15-37) U/L ALT (12-78) U/L Alkaline Phosphatase (45-117) U/L Troponin I (0-0.045) ng/ml Total Protein (6.4-8.2) gm/dl Albumin (3.4-5.0) gm/dl Lipase (73-393) U/L SARS-CoV-2 Ag (Rapid) (Negative) Blood Type O Negative Antibody Screen NEGATIVE
[2020-05-17] MEDS: NYSTATIN POWDER 15GM BTL EXT SCH ×2 (10:08→20:13)
[2020-05-17] MEDS: METOPROLOL SUCC 25MG EXT REL TAB PO SCH (10:08)
[2020-05-17] MEDS: PANTOprazole 40 MG in DEXTROSE 5% 100 ML IV SCH ×3 (10:08→20:11)
[2020-05-17] MEDS: LEVOTHYROXINE SODIUM 200 MCG TABLET PO SCH (10:11)
[2020-05-17] MEDS: GABAPENTIN 100 MG CAP PO SCH ×3 (10:11→20:12)
[2020-05-17] MEDS: LEVOTHYROXINE SODIUM 25 MCG TABLET PO SCH (10:12)
[2020-05-17] MEDS: hydrALAZINE TAB 50 MG TAB PO SCH ×4 (10:12→20:12)
[2020-05-17] MEDS: INSULIN ASPART 100 UNITS/ML 3 ML PEN SC SCH ×4 (10:13→17:44)
[2020-05-17] MEDS: FLUTICASONE PROPIONATE NA SPR 16 GM BTL SCH (10:16)
[2020-05-17 10:41] LABS: Appearance Urine Cloudy (Clear); Bilirubin Urine Negative (Negative); Blood Urine Negative (Negative); Color Urine Dark Yellow; Glucose Urine UA Negative (Negative); Ketones Urine Negative (Negative); Leukocyte Esterase Urine 2+ (Negative); Nitrite Urine Positive (Negative); Protein Urine 1+ (Negative); RBC Urine Automated 0-4 /hpf (0-4); Specific Gravity Urine 1.019 (1.000-1.030); Urobilinogen Urine Negative (Negative); WBC Urine Automated >30 /hpf (0-5)
[2020-05-17 10:57] LABS: Mucus Urine Present (None Prsent)
[2020-05-17 10:58] LABS: Bacteria Urine Automated 1+ (Negative)
--- NOTE | 2020-05-17 11:07 | Electrocardiogram Report ---
Test Reason : Blood Pressure : / mmHG Vent. Rate : 057 BPM Atrial Rate : 057 BPM P-R Int : 218 ms QRS Dur : 162 ms QT Int : 556 ms P-R-T Axes : 073 024 018 degrees QTc Int : 541 ms Poor data quality, interpretation may be adversely affected Sinus bradycardia with 1st degree A-V block Left bundle branch block Abnormal ECG When compared with ECG of 06-APR-2020 06:31, Sinus rhythm has replaced Atrial flutter Nonspecific T wave abnormality no longer evident in Lateral leads Confirmed by Edgar Roger ([id number] on 05/17/2020 11:07:09 AM Referred By: REFERRED SELF Confirmed By:Wilfrido Roger
--- NOTE | 2020-05-17 11:39 | Hospitalist Progress Note ---
Date of Service May 17, 2020 Assessment & Plan (1) Hematemesis: Acute upper GI bleed History of Anemia -as per 05/17/2020 AM, ED notes: "64 yr old male with very extensive PMH including afib on Coumadin and repeat hospitalizations (last 03/2020 for UTI/COPD flare). Arrives for altered mental status and vomiting blood. AMS seems suspicious for hypoglycemia and he seems more awake/with it after 1/2 amp D50 here. He clearly was vomiting blood prior to arrival as in oropharynx and dried on chin. He states bloody nose at some point but cant remember if before or after vomiting and exam without significant blood in nares at this time. Given steroid use history and on coumadin urgently given Protonix IV. He does not appear to have history varices that I can see and thus will hold on octreotide. Vitals stable and he is stable. CT head completed given earlier AMS and on Coumadin which fortunately was negative. CXR concerning for congestive failure though he is not short of breath and only on 3 L NC at the moment." -admitting physician gave 2.5 mg of p.o. vitamin K and started on Protonix drip amd IV fluids. GI evaluated and also obtained history of NSAID use ( 8 tablets advil daily and recent steroid taper) -05/17/2020 day time hospitalist assessment: Patient seen and examined. He is on nasal cannula oxygen which is his baseline as he reports home supplementary oxygen of around 2.5 liters/min and BIPAP/CPAP at night. He has not had any vomiting since prior to hospital presentation. He reports generally been bed bound at home since he returned home from a physical rehabilitation stay since February 2020. he reports that his brother helps his with all activities of daily living. Nursing staff denies any ulcers of the backside when they preformed their skin exam. Patient reports that he is at home typically on short acting insulin 15 units TID with meals and 40 units of long acting insulin at night. He understands that gastroenterology plans for bowel rest and the EGD on 05/18/2020. His insulin requirements will have to be re-assessed while on minimal/NPO oral intake. He denies any other symptoms on review of systems. Monitor off IV fluids for now Diabetes Mellitus Type 2 with jail current use of insulin with hypoglycemia on admission, metabolic encephalopathy on admission likely from hypoglycemia -Monitor blood sugars while on sliding scale insulin for now, titrate insulin as needed as he will allowed sips/chips for 05/17/2020 as per GI team and NPO after midnight for EGD (2) Morbid obesity: with BMI 53.9 -has been bed bound at home since February 2020 return home from physical rehab -PT/OT assessments in this admission, case management consult -repositioning of patient on the bed -DVT prophylaxis of SCDs because of hematemesis at home History of paroxysmal ventricular tachycardia History of atrial flutter Chronic anticoagulation with coumadin -Continue home dose amiodarone -no coumadin at this time Chronic respiratory failure with hypoxia, hypercarbia and obstructive sleep apnea on BiPAP and chronic obstructive pulmonary disease. Chronic diastolic congestive heart failure. Right pleural effusion -on supplementary oxygen by nasal cannula, BIPAP/CPAP at night -admission CT scan 1. Persistent cardiomegaly and bilateral pleural effusions right greater than left 2. Dependent airspace opacities, likely atelectatic 3. Persistent mild mediastinal and upper abdominal lymphadenopathy 4. Nodular hepatic contour -can continue home dose Lasix 80mg BID for now starting in evening of 05/17/2020 if no problems with blood pressure, the management of pleural effusion to be re- assessed after EGD completed by GI team on 05/17/2020 Acute kidney injury on chronic kidney disease stage III -baseline creatinine of around 1.2, admission creatinine 1.6 -he received IV fluids on admission -monitor the renal function Hypertension, -on Toprol-XL, hydralazine. Hypothyroidism -Continue home Synthroid for now -Check Thyroid function tests Hyperlipidemia -Continue statin. Depression -Continue fluoxetine Full Code Admission and Anticipated Discharge Date Admission Date: May 17, 2020 Subjective Patient seen and examined. He is on nasal cannula oxygen which is his baseline as he reports home supplementary oxygen of around 2.5 liters/min and BIPAP/CPAP at night. He has not had any vomiting since prior to hospital presentation. He reports generally been bed bound at home since he returned home from a physical rehabilitation stay since February 2020. he reports that his brother helps his with all activities of daily living. Nursing staff denies any ulcers of the backside when they preformed their skin exam. Patient reports that he is at home typically on short acting insulin 15 units TID with meals and 40 units of long acting insulin at night. He understands that gastroenterology plans for bowel rest and the EGD on 05/18/2020. His insulin requirements will have to be re- assessed while on minimal/NPO oral intake. He denies any other symptoms on review of systems.Monitor off IV fluids for now Review of Systems Review of Systems: All systems reviewed & are unremarkable except as noted in Subjective Physical Exam Constitutional: + morbidly obese Eyes: PERRL, conjunctivae normal, anicteric sclerae EOM intact bilaterally ENMT: external ear and nose normal, oropharynx normal Neck: normal visual inspection Respiratory: normal respiratory effort Cardiovascular: Rate/Rhythm: + bradycardic Gastrointestinal (Abdomen): normal bowel sounds, soft, nontender, no hepatosplenomegaly Musculoskeletal: Head/Neck/Chest: normocephalic and head atraumatic Neurologic: PERRL, EOMI, accommodation nl, no face palsy, no dysarthria Psychiatric: A+Ox3, euthymic affect Results & Data Results & Data ([facility]) Vital Signs (Past 12 Hours) Vital Signs Temp Pulse Pulse Resp BP BP Pulse Ox 05/17/20 09:00 46 L 16 99 05/17/20 08:30 36.5 C 50 L 16 97 05/17/20 08:25 37.0 C 50 L 52 L 17 128/68 99 05/17/20 07:30 22 130/82 100 05/17/20 07:00 52 L 17 137/82 99 05/17/20 06:31 54 L 20 133/76 100 05/17/20 06:01 54 L 19 150/66 H 100 05/17/20 05:41 36.5 C 61 24 154/68 H 98
[2020-05-17] MEDS: UMECLIDINIUM/VILANTEROL 62.5/25MCG 7 PUFFS/INHALER INH SCH (11:51)
[2020-05-17 12:08] LABS: Hematocrit (blood only) 34.6 % (42-52); Hemoglobin 10.8 g/dL (14.0-18.0); Mean Corpuscular Hemoglobin 28.2 pg (25-34); Mean Corpuscular Hgb Conc 31.2 g/dL (32-36); Mean Corpuscular Volume 90.3 fL (80-100); Mean Platelet Volume 9.5 fL (7.4-10.4); Platelet Count 186 K/uL (130-400); RDW Coefficient of Variation 20.4 % (11.5-14.5); RDW Standard Deviation 66.4 fL (36.4-46.3); Red Blood Count 3.83 M/uL (4.7-6.1); White Blood Count 6.68 K/uL (4.8-10.8)
[2020-05-17 12:30] LABS: Albumin Level 2.2 gm/dl (3.4-5.0); BUN Creatinine Ratio 16.9 (10-20); Calcium 8.4 mg/dl (8.5-10.1); Creatinine Clr Calc Pharmacy 77.7 ml/min; Est GFR (African American) 56.3; Est GFR (Non-African American) 48.6; Potassium 3.9 mmol/L (3.5-5.1)
[2020-05-17 12:37] LABS: T3 Total 0.45 ng/ml (0.60-1.81); T4 Thyroxine 9.7 mcg/dl (4.5-10.9)
[2020-05-17 12:38] LABS: T3 Free 1.51 pg/ml (2.3-4.2)
[2020-05-17 12:40] LABS: Estimated Average Glucose 117 mg/dl; Hemoglobin A1C 5.7 % (4.5-5.6)
[2020-05-17 12:41] LABS: Albumin Globulin Ratio 0.5 (0.9-2); Bilirubin,Total 0.5 mg/dl (0.2-1); Globulin 4.7 gm/dl (2.5-4.0); T4 Free Thyroxine 1.59 ng/dl (0.8-1.6); Thyroid Stimulating Hormone 5.52 uIu/ml (0.300-4.500); Total Protein 6.9 gm/dl (6.4-8.2)
[2020-05-17] MEDS ORDERED: Nursing to Pharmacy Communication SCH (17:00)
[2020-05-17] MEDS: FUROSEMIDE 80 MG TAB PO SCH (17:43)
[2020-05-17] MEDS: ATORVASTATIN 10 MG TAB PO SCH (20:12)
[2020-05-17] MEDS ORDERED: INSULIN GLARGINE SOLOSTAR 100 UNITS/ML 3 ML PEN SC SCH (21:00)
[2020-05-18] MEDS: INSULIN ASPART 100 UNITS/ML 3 ML PEN SC SCH ×3 (01:29→12:26)
[2020-05-18] MEDS: PANTOprazole 40 MG in DEXTROSE 5% 100 ML IV SCH ×3 (01:30→15:48)
[2020-05-18] MEDS: ACETAMINOPHEN 325 MG TAB PO PRN (04:01)
[2020-05-18 05:35] LABS: Basophils # (auto) 0.05 K/uL (0-0.2); Basophils % (auto) 0.9 %; Eosinophils # (auto) 0.03 K/uL (0-0.5); Eosinophils % (auto) 0.5 %; Hematocrit (blood only) 32.8 % (42-52); Immature Granulocytes # (auto) 0.01 K/uL (0.00-0.02); Immature Granulocytes % (auto) 0.2 %; Lymphocytes # (auto) 1.31 K/uL (1.2-3.4); Lymphocytes % (auto) 23.2 %; Mean Corpuscular Hemoglobin 27.8 pg (25-34); Mean Corpuscular Hgb Conc 30.5 g/dL (32-36); Mean Corpuscular Volume 91.1 fL (80-100); Mean Platelet Volume 9.6 fL (7.4-10.4); Monocytes # (auto) 0.73 K/uL (0.11-0.59); Monocytes % (auto) 12.9 %; Neutrophils # (auto) 3.52 K/uL (1.4-6.5); Neutrophils % (auto) 62.3 %; Platelet Count 219 K/uL (130-400); RDW Coefficient of Variation 20.5 % (11.5-14.5); RDW Standard Deviation 67.5 fL (36.4-46.3); White Blood Count 5.65 K/uL (4.8-10.8)
[2020-05-18 05:39] LABS: INR 1.5 (0.9-1.1); Prothrombin Time 15.5 Seconds (9.0-12.0)
[2020-05-18 06:02] LABS: BUN Creatinine Ratio 16.6 (10-20); Calcium 8.3 mg/dl (8.5-10.1); Creatinine Clr Calc Pharmacy 71.4 ml/min; Est GFR (African American) 50.9; Est GFR (Non-African American) 43.9; Magnesium 2.2 mg/dl (1.8-2.4); Potassium 4.1 mmol/L (3.5-5.1)
[2020-05-18] MEDS: LEVOTHYROXINE SODIUM 25 MCG TABLET PO SCH (06:09)
[2020-05-18] MEDS: LEVOTHYROXINE SODIUM 200 MCG TABLET PO SCH (06:10)
[2020-05-18 06:33] LABS: Anisocytosis Present
--- NOTE | 2020-05-18 07:54 | Anesthesiology Consultation ---
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 Jose Enrique Quispe MD Height/Weight Height: 5 ft 10 in Weight: 170.3 kg Allergies Allergy/AdvReac Type Severity Reaction Status Date / Time pollen extracts Allergy Mild sneezing/watery Verified 05/17/20 05:58 eyes Medications Home Medications Medication Instructions Recorded Confirmed Last Taken atorvastatin 10 mg PO HS 10/24/18 05/17/20 05/16/20 levothyroxine 25 mcg PO QAM 10/24/18 05/17/20 05/16/20 levothyroxine 200 mcg PO QAM 10/24/18 05/17/20 05/16/20 metoprolol succinate 25 mg PO QAM 10/24/18 05/17/20 05/16/20 pantoprazole 40 mg tablet,delayed 40 mg PO BID 02/11/19 05/17/20 05/16/20 release albuterol sulfate 2 puff INHALATION QID PRN 11/29/19 05/17/20 05/16/20 fluoxetine 10 mg PO DAILY 11/29/19 05/17/20 05/16/20 fluoxetine 20 mg PO DAILY 11/29/19 05/17/20 05/16/20 hydralazine 50 mg PO QID 11/29/19 05/17/20 05/16/20 insulin aspart U-100 [Novolog 1 sliding scale dose SUBCUT TID 11/29/19 05/17/20 05/16/20 U-100 Insulin aspart] Anoro Ellipta 1 ea INHALATION DAILY #14 ea 12/05/19 05/17/20 05/16/20 Lantus Solostar U-100 Insulin 40 unit SUBCUT HS 05/17/20 05/17/20 05/16/20 fluticasone propionate [Flonase] 2 spray INTRANASAL DAILY 05/17/20 05/17/20 Unknown furosemide 80 mg PO BID 05/17/20 05/17/20 05/16/20 gabapentin 100 mg PO TID 05/17/20 05/17/20 05/16/20 linaclotide 145 mcg PO QAM 1105/17/20 05/16/20 menthol-zinc oxide [Calmoseptine] 1 applic TOPICAL TID PRN 05/17/20 05/17/20 Unknown multivit,stress formula-zinc 1 tab PO DAILY 05/17/20 05/17/20 Unknown [Stress Formula + Zinc] nystatin 1 applic TOPICAL BID 05/17/20 05/17/20 Unknown tramadol 50 mg PO BID 05/17/20 05/17/20 Unknown tramadol 50 mg PO Q4 PRN 05/17/20 05/17/20 Unknown warfarin 1 - 2 mg PO DAILY 05/17/20 05/17/20 05/16/20 Active Medications Generic Name Dose Route Start Last Admin Trade Name Freq PRN Reason Stop Dose Admin Acetaminophen 325 mg 05/17/20 11:31 05/18/20 04:01 Acetaminophen 325 Mg Tab PO 06/16/20 09:05 325 mg Q6H PRN Administration Pain or Fever Atorvastatin Calcium 10 mg 05/17/20 21:00 05/17/20 20:12 Atorvastatin 10 Mg Tab PO 06/16/20 20:59 10 mg HS CAROL ANN Administration Fluticasone Propionate 2 sprays 05/17/20 09:15 05/17/20 10:16 Fluticasone Propionate Na Spr 16 Gm Btl NA 06/16/20 09:14 Not Given DAILY CAROL ANN Furosemide 80 mg 05/17/20 17:00 05/17/20 17:43 Furosemide 80 Mg Tab PO 06/16/20 16:59 80 mg BID17 CAROL ANN Administration Gabapentin 100 mg 05/17/20 09:15 05/17/20 20:12 Gabapentin 100 Mg Cap PO 06/16/20 09:14 100 mg TID CAROL ANN Administration Hydralazine HCl 50 mg 05/17/20 09:15 05/17/20 20:12 Hydralazine Tab 50 Mg Tab PO 06/16/20 09:14 50 mg QID CAROL ANN Administration Pantoprazole Sodium 40 mg/ 100 mls @ 20 mls/hr 05/17/20 09:15 05/18/20 06:09 Dextrose IV 06/16/20 09:14 8 mg/hr Q5H CAROL ANN 20 mls/hr Administration 8 MG/HR Insulin Aspart 0 units 05/17/20 18:00 05/18/20 06:14 Insulin Aspart 100 Units/Ml 3 Ml Pen SC 06/16/20 17:59 Not Given Q6 CAROL ANN Levothyroxine Sodium 25 mcg 05/17/20 09:15 05/18/20 06:09 Levothyroxine Sodium 25 Mcg Tablet PO 06/16/20 09:14 25 mcg DAILYBB CAROL ANN Administration Levothyroxine Sodium 200 mcg 05/17/20 09:15 05/18/20 06:10 Levothyroxine Sodium 200 Mcg Tablet PO 06/16/20 09:14 200 mcg DAILYBB CAROL ANN Administration Metoprolol Succinate 25 mg 05/17/20 09:15 05/17/20 10:08 Metoprolol Succ 25mg Ext Rel Tab PO 06/16/20 09:14 Not Given QAM CAROL ANN Miscellaneous 1 ea 05/17/20 16:00 05/18/20 01:30 Order Awaiting Action N/A 06/16/20 15:59 Not Given QS CAROL ANN Nystatin 1 appln 05/17/20 09:30 05/17/20 20:13 Nystatin Powder 15gm Btl EXT 06/16/20 09:29 1 appln BID CAROL ANN Administration Umeclidinium/Vilanterol 1 puffs 05/17/20 09:30 05/17/20 11:51 Umeclidinium/Vilanterol 62.5/25mcg 7 Puffs/Inhaler INH 06/16/20 09:29 1 puffs DAILY CAROL ANN Administration Past Medical History Medical History Anemia Chronic diastolic heart failure COPD (chronic obstructive pulmonary disease) inhalers daily/prn and oxygen 2L n/c Diabetes mellitus, type 2 Elevated troponin I level Graves disease History of gastric ulcer Hyperlipidemia Hypertension Hypothyroidism Hypoxia Left bundle branch block chronic Morbid obesity with BMI of 50.0-59.9, adult Obesity hypoventilation syndrome On home oxygen therapy 2L N/C at all times SAFIA (obstructive sleep apnea) cpap--2L oxygen Past Family History Family History Mother Diabetes Hypertension Brother , dies at 44 yo from [place] Heart disease Other No family history of adverse response to anesthesia Past Surgical History Surgical History History of angioplasty 2003 @ [facility] – [place]--no stents History of colonoscopy History of endoscopic sinus surgery History of esophagogastroduodenoscopy (EGD) History of tooth extraction History of wisdom tooth extraction S/P correction of deviated nasal septum Social History Smoking Status: Former smoker tobacco type: cigarettes Smoking cigarettes per day: 4 Do You Dip or Chew Tobacco: No Hx Alcohol Use: No Hx Substance Use: No substance use type: does not use Physical Exam Vital Signs Last Vital Signs Temp 98.8 F 05/18/20 04:02 Pulse 54 L 05/18/20 04:02 Resp 24 05/18/20 04:02 BP 116/46 L 05/18/20 04:02 Pulse Ox 94 05/18/20 04:02 Testing Laboratory Results 05/18/20 04:56 05/18/20 04:56 PT 15.5 Seconds (9.0-12.0) H 05/18/20 04:56 INR 1.5 (0.9-1.1) H 05/18/20 04:56 APTT 34.3 Seconds (21.0-31.0) H 05/17/20 05:26 Hemoglobin A1c 5.7 % (4.5-5.6) H 05/17/20 11:39 Urine Color Dark Yellow 05/17/20 10:30 Urine Appearance Cloudy (Clear) A 05/17/20 10:30 Urine pH 5.0 (4.5-7.5) 05/17/20 10:30 Ur Specific [place] 1.019 (1.000-1.030) 05/17/20 10:30 Urine Protein 1+ (Negative) H 05/17/20 10:30 Urine Glucose (UA) Negative (Negative) 05/17/20 10:30 Urine Ketones Negative (Negative) 05/17/20 10:30 Urine Nitrite Positive (Negative) A 05/17/20 10:30 Ur Leukocyte Esterase 2+ (Negative) H 05/17/20 10:30 Urine WBC (Auto) >30 /hpf (0-5) H 05/17/20 10:30 Urine RBC (Auto) 0-4 /hpf (0-4) 05/17/20 10:30 U Hyaline Cast (Auto) 10-30 /lpf (0-5) H 05/17/20 10:30 U Epithel Cells (Auto) 10-20 /lpf (0-5) H 05/17/20 10:30 Urine Bacteria (Auto) 1+ (Negative) H 05/17/20 10:30 Blood Type O Negative 05/17/20 05:26 Antibody Screen NEGATIVE 05/17/20 05:26 1205/18/20 06:13 00:13 POC Glucose 103 H 106 H Electrocardiogram Date: 05/17/20 Poor data quality, interpretation may be adversely affected Sinus bradycardia with 1st degree A-V block, rate 57 bpm Left bundle branch block Abnormal ECG When compared with ECG of 06-APR-2020 06:31, Sinus rhythm has replaced Atrial flutter Nonspecific T wave abnormality no longer evident in Lateral leads Confirmed by Edgar Roger ([id number]) on 05/17/2020 11:07:09 AM Chest X-Ray Date: 05/17/20 IMPRESSION: 1. Technically limited study 2. Right pleural effusion 3. Bilateral lower lung zone airspace opacities 4. Possible pulmonary vascular congestion Echocardiogram Date: 04/30/20 RV is moderately dilated RV systolic function is moderately reduced Septal motion is consistent with conduction abnormality LV motion was otherwise normal on technically limited evaluation LV ejection fraction is grossly normal Moderate TR Dilated inferior vena cava with reduced collapsability with sniff indicates an elevated RA pressure of 15 mmHg Estimated PASP=45 mmHg (mildly elevated)
[2020-05-18] MEDS ORDERED: PROPOFOL IV EMULSION 10 MG/ML 20 ML VIAL IV ONE (08:04)
[2020-05-18] MEDS ORDERED: LIDOCAINE HCL 2% 2 ML VIAL/AMP(20MG/ML) INFIL ONE (08:04)
--- NOTE | 2020-05-18 08:20 | History & Physical Report ---
Date of Service May 18, 2020 Assessment & Plan Admission and Anticipated Discharge Date Admission Date: May 17, 2020 History of Present Illness Chief Complaint: Melena Primary Care Provider: Susanne Macias, 64 yo male with a history of being admitted through the ER for melena. No melena overnite. No acute complaints this am. Hgb essentially stable. No further melena. He is wheezing somewhat but reports no difficulty with breathing at the moment. Allergies Allergy/AdvReac Type Severity Reaction Status Date / Time pollen extracts Allergy Mild sneezing/watery Verified 05/17/20 05:58 eyes Home Medications Medication Instructions Recorded Confirmed Type atorvastatin 10 mg PO HS 10/24/18 05/17/20 History levothyroxine 25 mcg PO QAM 10/24/18 05/17/20 History levothyroxine 200 mcg PO QAM 10/24/18 05/17/20 History metoprolol succinate 25 mg PO QAM 10/24/18 05/17/20 History pantoprazole 40 mg tablet,delayed 40 mg PO BID 02/11/19 05/17/20 History release albuterol sulfate 2 puff INHALATION QID PRN 11/29/19 05/17/20 History fluoxetine 10 mg PO DAILY 11/29/19 05/17/20 History fluoxetine 20 mg PO DAILY 11/29/19 05/17/20 History hydralazine 50 mg PO QID 11/29/19 05/17/20 History insulin aspart U-100 [Novolog 1 sliding scale dose SUBCUT TID 11/29/19 05/17/20 History U-100 Insulin aspart] Anoro Ellipta 1 ea INHALATION DAILY #14 ea 12/05/19 05/17/20 Rx Lantus Solostar U-100 Insulin 40 unit SUBCUT HS 05/17/20 05/17/20 History fluticasone propionate [Flonase] 2 spray INTRANASAL DAILY 05/17/20 05/17/20 History furosemide 80 mg PO BID 05/17/20 05/17/20 History gabapentin 100 mg PO TID 05/17/20 05/17/20 History linaclotide 145 mcg PO QAM 05/17/20 05/17/20 History menthol-zinc oxide [Calmoseptine] 1 applic TOPICAL TID PRN 05/17/20 05/17/20 History multivit,stress formula-zinc 1 tab PO DAILY 05/17/20 05/17/20 History [Stress Formula + Zinc] nystatin 1 applic TOPICAL BID 05/17/20 05/17/20 History tramadol 50 mg PO BID 05/17/20 05/17/20 History tramadol 50 mg PO Q4 PRN 05/17/20 05/17/20 History warfarin 1 - 2 mg PO DAILY 05/17/20 05/17/20 History Past Med/Surg History Medical History Anemia Chronic diastolic heart failure COPD (chronic obstructive pulmonary disease) inhalers daily/prn and oxygen 2L n/c Diabetes mellitus, type 2 Elevated troponin I level Graves disease History of gastric ulcer Hyperlipidemia Hypertension Hypothyroidism Hypoxia Left bundle branch block chronic Morbid obesity with BMI of 50.0-59.9, adult Obesity hypoventilation syndrome On home oxygen therapy 2L N/C at all times SAFIA (obstructive sleep apnea) cpap--2L oxygen Surgical History History of angioplasty 2003 @ [facility] [place]no [place] History of colonoscopy History of endoscopic sinus surgery History of esophagogastroduodenoscopy (EGD) History of tooth extraction History of wisdom tooth extraction S/P correction of deviated nasal septum Family History Mother Diabetes Hypertension Brother , dies at 44 yo from [place] Heart disease Other No family history of adverse response to anesthesia Social History Smoking Status: Former smoker Tobacco Type: Cigarettes Years Smoked: 60; Cigarettes Per Day: 4; Second Hand Exposure: Yes; Do You Dip or Chew Tobacco: No; Tobacco Cessation Education Requested by Patient: No Hx Alcohol Use: No Hx Substance Use: No Preferred Language: Somali Communication Ability: Effective Sql Server Bi Developer Required: No Beliefs That Will Affect Care: None marital status: Single Current Living Situation: Family Current Living Situation Comment: Resides with brother, Lonnie Douglass current occupational status: unemployed Other Information That Helps Us Care for You: No Feels Safe at Home: Yes Safety Concerns: Feels Safe At This Time Assistive Devices: CPAP and Oxygen - Continuous Review of Systems All systems reviewed & are unremarkable except as noted in HPI & below Physical Exam Physical Exam: Obese white male in nad Eyes: PERRL, conjunctivae normal, anicteric sclerae Respiratory: Wheezing Gastrointestinal (Abdomen): normal bowel sounds, soft, nontender, no hepatosplenomegaly Neurologic: PERRL, EOMI, accommodation nl, no face palsy, no dysarthria Results & Data ([facility]) Vital Signs (Past 12 Hours) Vital Signs Temp Pulse Pulse Resp BP Pulse Ox 05/18/20 04:02 37.1 C 54 L 24 116/46 L 94 05/18/20 02:09 64 18 95 05/18/20 00:30 37.2 C 54 L 18 129/52 L 93 05/17/20 23:50 56 L 18 92 05/17/20 22:35 51 L 16 92 Code Status & VTE Plan VTE Prophylaxis Plan VTE Prophylaxis will be ordered: Yes Supervising Physician Co-Signing Physician Notes EGD for evaluation of melena in endo today.
--- NOTE | 2020-05-18 08:49 | Communication Note ---
Date of Service: May 18, 2020 S/P EGD w/ gastritis. No evidence of gross GI bleeding or high risk lesions during examination. No GI contraindication to advancement of diet as tolerated. No GI contraindication to resuming Coumadin. Would recommended PPI twice daily for 6 weeks. No plan for repeat endoscopic evaluation. Perhaps he had nose bleed and coughed up blood as previously suggested. Will sign off. Recall if needed.
--- NOTE | 2020-05-18 08:49 | GI REPORT ---
Patient Name: Javid Douglass Procedure Date: 05/18/2020 8:30 AM Date of : 1955 Admit Type: Inpatient Age: 64 Gender: Male Attending MD: Vero Quispe M.d. Procedure: Upper GI endoscopy Providers: Vero Quispe M.d. Referring MD: Rai Campo M.d. Indications: Melena Medicines: Propofol per Anesthesia, Lidocaine Complications: No immediate complications. Estimated Blood Loss: Estimated blood loss was minimal. Procedure: Pre-Anesthesia Assessment: - Patient identification and proposed procedure were verified prior to the procedure by the physician, the nurse and the anesthesiologist. The procedure was verified in the pre-procedure area. - Prior to the procedure, a History and Physical was performed, and patient medications, allergies and sensitivities were reviewed. The patient's tolerance of previous anesthesia was reviewed. - The risks and benefits of the procedure and the sedation options and risks were discussed with the patient. All questions were answered and informed consent was obtained. After obtaining informed consent, the endoscope was passed under direct vision. Throughout the procedure, the patient's blood pressure, pulse, and oxygen saturations were monitored continuously. The Endoscope was introduced through the mouth, and advanced to the second part of duodenum. The upper GI endoscopy was accomplished without difficulty. The patient tolerated the procedure well. Findings: The examined esophagus appeared normal without evidence of varices. The examined stomach appeared normal without evidence of varices. Localized mild inflammation characterized by erythema was found in the stomach - primarily in the antrum but it was mild. The duodenal bulb and second portion of the duodenum appeared normal. Impression: - Normal esophagus. - Normal stomach. - Mild antral gastritis. - Normal duodenal bulb and second portion of the duodenum. Recommendation: - Return to the ICU. - Suspect he was on coumadin, had a nose bleed and swallowed the blood and coughed it up given today's egd findings. - Advance diet as tolerated. - Resume coumadin per primary team. Iza Muñoz M.d. 05/18/2020 8:48:50 AM This report has been signed electronically. Note Initiated On: 05/18/2020 8:30 AM Number of Addenda: 0 I attest to the content of the Intraoperative Record and orders documented therein, exceptions below {[id number]}
--- NOTE | 2020-05-18 09:06 | Anesthesiology Progress Note ---
Date of Service May 18, 2020 Anesthesia Post Procedure Vital Signs Vital Signs: Temp Pulse Pulse Resp BP Pulse Ox 05/18/20 08:50 57 L 18 119/56 L 99 05/18/20 08:13 98.8 F 59 L 22 107/62 94 05/18/20 04:02 98.8 F 54 L 24 116/46 L 94 05/18/20 02:09 64 18 95 05/18/20 00:30 99.0 F 54 L 18 129/52 L 93 05/17/20 23:50 56 L 18 92 05/17/20 22:35 51 L 16 92 05/17/20 15:00 60 16 125/78 93 Transfer of Care Handoff Completed per policy Notes Mental Status: alert / awake / arousable and participated in evaluation Patient Amnestic to Procedure: Yes Nausea / Vomiting: adequately controlled Pain: adequately controlled Airway Patency, RR, SpO2: stable & adequate BP & HR: stable & adequate Hydration State: stable & adequate Anesthetic Complications: no major complications apparent and Pt Satisfied with anesthetic care
[2020-05-18] MEDS: UMECLIDINIUM/VILANTEROL 62.5/25MCG 7 PUFFS/INHALER INH SCH (10:34)
[2020-05-18] MEDS: GABAPENTIN 100 MG CAP PO SCH ×3 (10:35→21:25)
[2020-05-18] MEDS: METOPROLOL SUCC 25MG EXT REL TAB PO SCH (10:36)
[2020-05-18] MEDS: FLUoxetine HCL 20 MG CAP PO SCH (10:36)
[2020-05-18] MEDS: FLUoxetine HCL 10 MG CAP PO SCH (10:36)
[2020-05-18] MEDS: FUROSEMIDE 80 MG TAB PO SCH ×2 (10:37→16:18)
[2020-05-18] MEDS: NYSTATIN POWDER 15GM BTL EXT SCH ×2 (10:38→21:28)
[2020-05-18] MEDS: FLUTICASONE PROPIONATE NA SPR 16 GM BTL SCH (10:39)
[2020-05-18] MEDS: hydrALAZINE TAB 50 MG TAB PO SCH ×4 (10:40→21:25)
--- NOTE | 2020-05-18 13:40 | Hospitalist Progress Note ---
Date of Service May 18, 2020 Assessment & Plan (1) Hematemesis: Acute upper GI bleed was initially suspected and ruled out History of Anemia -as per 05/17/2020 AM, ED notes: "64 yr old male with very extensive PMH including afib on Coumadin and repeat hospitalizations (last 03/2020 for UTI/COPD flare). Arrives for altered mental status and vomiting blood. AMS seems suspicious for hypoglycemia and he seems more awake/with it after 1/2 amp D50 here. He clearly was vomiting blood prior to arrival as in oropharynx and dried on chin. He states bloody nose at some point but cant remember if before or after vomiting and exam without significant blood in nares at this time. Given steroid use history and on coumadin urgently given Protonix IV. He does not appear to have history varices that I can see and thus will hold on octreotide. Vitals stable and he is stable. CT head completed given earlier AMS and on Coumadin which fortunately was negative. CXR concerning for congestive failure though he is not short of breath and only on 3 L NC at the moment." -admitting physician gave 2.5 mg of p.o. vitamin K and started on Protonix drip amd IV fluids. GI evaluated and also obtained history of NSAID use ( 8 tablets advil daily and recent steroid taper) -05/17/2020 day time hospitalist assessment: Patient seen and examined. He is on nasal cannula oxygen which is his baseline as he reports home supplementary oxygen of around 2.5 liters/min and BIPAP/CPAP at night. He has not had any vomiting since prior to hospital presentation. He reports generally been bed bound at home since he returned home from a physical rehabilitation stay since February 2020. he reports that his brother helps his with all activities of daily living. Nursing staff denies any ulcers of the backside when they preformed their skin exam. Patient reports that he is at home typically on short acting insulin 15 units TID with meals and 40 units of long acting insulin at night. He understands that gastroenterology plans for bowel rest and the EGD on 05/18/2020. His insulin requirements will have to be re-assessed while on minimal/NPO oral intake. He denies any other symptoms on review of systems. Monitor off IV fluids for now -05/18/2020: patient is status post Upper endoscopy on 05/18/2020 .As per GI communication note "S/P EGD w/ gastritis. No evidence of gross GI bleeding or high risk lesions during examination. No GI contraindication to advancement of diet as tolerated. No GI contraindication to resuming Coumadin. Would recommended PPI twice daily for 6 weeks. No plan for repeat endoscopic evaluation. Perhaps he had nose bleed and coughed up blood as previously dacia tomas." Diabetes Mellitus Type 2 with longterm current use of insulin with hypoglycemia on admission, metabolic encephalopathy on admission likely from hypoglycemia -HbA1c on admission of 5.3 which is very tight glycemic control (patient reports home dose shorting dosing of 15 units TID with meals, and 40 units long acting insulin qhs) -possibly that patient may be on too much insulin at home -as of 05/18/2020, continue sliding scale insulin and trial Lantus of 10 units at night (2) Morbid obesity: with BMI 53.9 -has been bed bound at home since February 2020 return home from physical rehab -PT/OT assessments in this admission, case management consult -repositioning of patient on the bed -DVT prophylaxis of SCDs after recent GI workup and coumadin being restarted on 05/18/2020 History of paroxysmal ventricular tachycardia History of atrial flutter Chronic anticoagulation with coumadin -Continue home dose amiodarone -he actual had subtherapeutic INR on presentation in the ED of 1.6 and was given vitamin K by admitting hospitalist just in case for bleeding or before EGD plans -follow the INR, coumadin to be ordered as 5 mg daily starting on 05/18/2020 Chronic respiratory failure with hypoxia, hypercarbia and obstructive sleep apnea on BiPAP and chronic obstructive pulmonary disease. Chronic diastolic congestive heart failure. Right pleural effusion -on supplementary oxygen by nasal cannula, BIPAP/CPAP at night -admission CT scan 1. Persistent cardiomegaly and bilateral pleural effusions right greater than left 2. Dependent airspace opacities, likely atelectatic 3. Persistent mild mediastinal and upper abdominal lymphadenopathy 4. Nodular hepatic contour -can continue home dose Lasix 80mg BID for now starting in evening of 05/17/2020 -the management of pleural effusion to be re-assessed after EGD completed by GI team on 05/18/2020, a repeat CXR to be ordered for 05/19/2020 while on Lasix chronic kidney disease stage III -baseline creatinine of around in the past actually around 2 or higher in the past, admission creatinine 1.6 -he received IV fluids on admission -monitor the renal function while on current diuretics Hypertension, -on Toprol-XL, hydralazine. Hypothyroidism -TSH 5.5 but normal free T4 and normal total T4 -Continue home Synthroid for now Hyperlipidemia -Continue statin. Depression -Continue fluoxetine Full Code Admission and Anticipated Discharge Date Admission Date: May 17, 2020 Subjective Patient is status post EGD and no source of an upper GI bleed was found. Patient seen and examined on 3 liters/min nasal cannula. His diet is just being restarted. Patient denies acute distress. no acute pain. No other new symptoms on review of systems. he understands the plans to be transferred from telemetry to a medical diaz, further monitoring of Hgb and blood sugars. He is is to be seen by PT/OT. case management also notified for future discharge need assessments given patient's history of immobility Review of Systems Review of Systems: All systems reviewed & are unremarkable except as noted in Subjective Physical Exam Constitutional: + morbidly obese Eyes: PERRL, conjunctivae normal, anicteric sclerae EOM intact bilaterally ENMT: external ear and nose normal, oropharynx normal Neck: normal visual inspection Respiratory: normal respiratory effort Cardiovascular: Rate/Rhythm: + bradycardic Gastrointestinal (Abdomen): normal bowel sounds, soft, nontender, no hepatosplenomegaly Musculoskeletal: Head/Neck/Chest: normocephalic and head atraumatic Neurologic: PERRL, EOMI, accommodation nl, no face palsy, no dysarthria Psychiatric: A+Ox3, euthymic affect Results & Data Results & Data ([facility]) Vital Signs (Past 12 Hours) Vital Signs Temp Pulse Pulse Pulse Resp BP BP 05/18/20 11:40 36.9 C 57 L 16 115/48 L 05/18/20 10:14 55 L 18 107/44 L 05/18/20 10:00 57 L 19 05/18/20 09:50 59 L 18 05/18/20 09:49 109/54 L 05/18/20 09:40 59 L 17 115/59 L 05/18/20 09:20 56 L 18 118/62 05/18/20 09:05 55 L 18 117/58 L 05/18/20 08:50 57 L 18 119/56 L 05/18/20 08:13 37.1 C 59 L 22 107/62 05/18/20 08:00 53 L 13 05/18/20 07:00 58 L 14 05/18/20 04:02 37.1 C 54 L 24 116/46 L 05/18/20 02:09 64 18 Pulse Ox 05/18/20 11:40 97 05/18/20 10:14 95 05/18/20 10:00 05/18/20 09:50 05/18/20 09:49 05/18/20 09:40 05/18/20 09:20 100 05/18/20 09:05 99 05/18/20 08:50 99 05/18/20 08:13 94 05/18/20 08:00 05/18/20 07:00 93 05/18/20 04:02 94 05/18/20 02:09 95
[2020-05-18] MEDS ORDERED: CARBOHYDRATES FOR HYPOGLYCEMIA PO PRN (13:45)
[2020-05-18] MEDS ORDERED: GLUCOSE 40% GEL 15 GM TUBE PO PRN (13:45)
[2020-05-18] MEDS ORDERED: GLUCAGON FOR INJ 1 MG VIAL IM PRN (13:45)
[2020-05-18] MEDS ORDERED: GLUCOSE 10 TABS/TUBE PO PRN (13:45)
[2020-05-18] MEDS ORDERED: DEXTROSE 50% 50 ML SYRINGE IV PRN (13:45)
[2020-05-18] MEDS ORDERED: Nursing to Pharmacy Communication SCH (15:15)
[2020-05-18] MEDS: WARFARIN SOD 5 MG TAB PO SCH (16:18)
[2020-05-18] MEDS: INSULIN ASPART 100 UNITS/ML 3 ML PEN SQ SCH ×2 (17:20→21:29)
[2020-05-18] MEDS: ATORVASTATIN 10 MG TAB PO SCH (21:25)
[2020-05-18] MEDS: PANTOprazole 40 MG TAB PO SCH (21:25)
[2020-05-18] MEDS: INSULIN GLARGINE SOLOSTAR 100 UNITS/ML 3 ML PEN SC SCH (21:28)
[2020-05-19] MEDS: LEVOTHYROXINE SODIUM 25 MCG TABLET PO SCH (05:51)
[2020-05-19] MEDS: LEVOTHYROXINE SODIUM 200 MCG TABLET PO SCH (05:51)
[2020-05-19 07:15] LABS: Basophils # (auto) 0.06 K/uL (0-0.2); Basophils % (auto) 1.1 %; Eosinophils # (auto) 0.05 K/uL (0-0.5); Eosinophils % (auto) 0.9 %; Hematocrit (blood only) 32.7 % (42-52); Immature Granulocytes # (auto) 0.03 K/uL (0.00-0.02); Immature Granulocytes % (auto) 0.6 %; Lymphocytes # (auto) 1.75 K/uL (1.2-3.4); Lymphocytes % (auto) 32.8 %; Mean Corpuscular Hemoglobin 27.8 pg (25-34); Mean Corpuscular Hgb Conc 30.6 g/dL (32-36); Mean Corpuscular Volume 90.8 fL (80-100); Mean Platelet Volume 9.5 fL (7.4-10.4); Monocytes # (auto) 0.87 K/uL (0.11-0.59); Monocytes % (auto) 16.3 %; Neutrophils # (auto) 2.57 K/uL (1.4-6.5); Neutrophils % (auto) 48.3 %; Platelet Count 198 K/uL (130-400); RDW Coefficient of Variation 20.4 % (11.5-14.5); RDW Standard Deviation 65.5 fL (36.4-46.3); White Blood Count 5.33 K/uL (4.8-10.8)
[2020-05-19 07:30] LABS: INR 1.3 (0.9-1.1); Prothrombin Time 13.5 Seconds (9.0-12.0)
[2020-05-19 07:44] LABS: Albumin Level 2.3 gm/dl (3.4-5.0); BUN Creatinine Ratio 16.4 (10-20); Calcium 8.9 mg/dl (8.5-10.1); Creatinine Clr Calc Pharmacy 62.5 ml/min; Est GFR (African American) 43.3; Est GFR (Non-African American) 37.4; Potassium 3.9 mmol/L (3.5-5.1)
[2020-05-19 07:46] LABS: Anisocytosis Present
[2020-05-19 07:47] LABS: Albumin Globulin Ratio 0.5 (0.9-2); Bilirubin,Total 0.5 mg/dl (0.2-1); Globulin 4.6 gm/dl (2.5-4.0); Total Protein 6.9 gm/dl (6.4-8.2)
[2020-05-19] MEDS: FLUoxetine HCL 10 MG CAP PO SCH (08:42)
[2020-05-19] MEDS: hydrALAZINE TAB 50 MG TAB PO SCH ×4 (08:42→20:56)
[2020-05-19] MEDS: METOPROLOL SUCC 25MG EXT REL TAB PO SCH (08:42)
[2020-05-19] MEDS: FLUoxetine HCL 20 MG CAP PO SCH (08:42)
[2020-05-19] MEDS: PANTOprazole 40 MG TAB PO SCH ×2 (08:42→20:53)
[2020-05-19] MEDS: GABAPENTIN 100 MG CAP PO SCH ×3 (08:42→20:53)
[2020-05-19] MEDS: FUROSEMIDE 80 MG TAB PO SCH ×2 (08:42→16:32)
[2020-05-19] MEDS: UMECLIDINIUM/VILANTEROL 62.5/25MCG 7 PUFFS/INHALER INH SCH (08:43)
[2020-05-19] MEDS: NYSTATIN POWDER 15GM BTL EXT SCH ×2 (08:44→21:06)
[2020-05-19] MEDS: INSULIN ASPART 100 UNITS/ML 3 ML PEN SQ SCH ×4 (09:12→20:58)
[2020-05-19] MEDS: FLUTICASONE PROPIONATE NA SPR 16 GM BTL SCH (10:19)
--- NOTE | 2020-05-19 10:30 | XRay Report ---
XR chest 1V portable CLINICAL HISTORY: follow lung infiltrates COMPARISON STUDY: 05/17/2020 FINDINGS: The heart remains enlarged. There is a persistent right pleural effusion. Slight haziness t he right hemithorax, likely relates to posterior layering fluid. There is no lobar consolidation.[The re are improving basilar opacities. IMPRESSION: 1. Persistent right pleural effusion 2. Improving basilar opacities. No evidence of lobar consolidation ACT 112: Negative or not required by law. Electronically signed by: Sebastián Gómez M.D. 05/19/2020 10:29 AM
--- NOTE | 2020-05-19 14:27 | Hospitalist Progress Note ---
Date of Service May 19, 2020 Assessment & Plan (1) Hematemesis: Acute upper GI bleed was initially suspected and ruled out History of Anemia Per Dr. Rai Campo's notes -as per 05/17/2020 AM, ED notes: "64 yr old male with very extensive PMH including afib on Coumadin and repeat hospitalizations (last 03/2020 for UTI/COPD flare). Arrives for altered mental status and vomiting blood. AMS seems suspicious for hypoglycemia and he seems more awake/with it after 1/2 amp D50 here. He clearly was vomiting blood prior to arrival as in oropharynx and dried on chin. He states bloody nose at some point but cant remember if before or after vomiting and exam without significant blood in nares at this time. Given steroid use history and on coumadin urgently given Protonix IV. He does not appear to have history varices that I can see and thus will hold on octreotide. Vitals stable and he is stable. CT head completed given earlier AMS and on Coumadin which fortunately was negative. CXR concerning for congestive failure though he is not short of breath and only on 3 L NC at the moment." -05/18/2020: patient is status post Upper endoscopy on 05/18/2020 .As per GI communication note "S/P EGD w/ gastritis. No evidence of gross GI bleeding or high risk lesions during examination. No GI contraindication to advancement of diet as tolerated. No GI contraindication to resuming Coumadin. Would recommended PPI twice daily for 6 weeks. No plan for repeat endoscopic evaluati on. Perhaps he had nose bleed and coughed up blood as previously suggested." -HemoGlobin stable Continue to monitor Diabetes Mellitus Type 2 with retirement current use of insulin with hypoglycemia on admission, metabolic encephalopathy on admission likely from hypoglycemia -HbA1c on admission of 5.3 which is very tight glycemic control (patient reports home dose shorting dosing of 15 units TID with meals, and 40 units long acting insulin qhs) -possibly that patient may be on too much insulin at home -as of 05/18/2020, continue sliding scale insulin and trial Lantus of 10 units at night (2) Morbid obesity: with BMI 53.9 -has been bed bound at home since February 2020 return home from physical rehab -PT/OT assessments in this admission, case management consult -repositioning of patient on the bed -DVT prophylaxis of SCDs after recent GI workup and coumadin being restarted on 05/18/2020 History of paroxysmal ventricular tachycardia History of atrial flutter Chronic anticoagulation with coumadin -Continue home dose amiodarone Continue Coumadin Chronic respiratory failure with hypoxia, hypercarbia and obstructive sleep apnea on BiPAP and chronic obstructive pulmonary disease. Chronic diastolic congestive heart failure. Right pleural effusion -on supplementary oxygen by nasal cannula, BIPAP/CPAP at night -admission CT scan 1. Persistent cardiomegaly and bilateral pleural effusions right greater than left 2. Dependent airspace opacities, likely atelectatic 3. Persistent mild mediastinal and upper abdominal lymphadenopathy 4. Nodular hepatic contour -Lasix 80 mg twice daily chronic kidney disease stage III -baseline creatinine of around in the past actually around 2 or higher in the past, admission creatinine 1.6 stable Hypertension, -on Toprol-XL, hydralazine. Hypothyroidism -TSH 5.5 but normal free T4 and normal total T4 -Continue home Synthroid for now Hyperlipidemia -Continue statin. Depression -Continue fluoxetine Full Code Admission and Anticipated Discharge Date Admission Date: May 17, 2020 Subjective Follow-up for possible GI bleed, upper glycemia with confusion, atrial flutter, etc. Seen resting in bed, comfortable, not in distress States he feels weak and tired today Denies abdominal pain, nausea vomiting, melena or hematochezia No other symptoms Review of Systems Review of Systems: All systems reviewed & are unremarkable except as noted in Subjective Physical Exam Physical Exam: General- oriented x 3, not in distress, speaks in sentences with no effort or accessory muscle use Eyes- anicteric Neck- no JVD Lungs- clear breath sounds bilaterally, no rales/wheezes Heart- normal rate, regular rhythm; no murmurs Abdomen- normal bowel sounds, nondistended, soft, nontender Extremities- no pretibial edema, no calf tenderness Neuro- alert, oriented x 3; no gross focal neurologic deficits Skin- warm & dry Results & Data Results & Data ([facility]) Vital Signs (Past 12 Hours) Vital Signs Temp Pulse Pulse Resp BP BP Pulse Ox 05/19/20 08:26 36.5 C 61 18 131/72 95 05/19/20 04:03 36.8 C 57 L 20 118/67 96 05/19/20 02:45 60 18 95 Laboratory Results Laboratory Results - last 24 hr 05/19/20 05/19/2020 06:20 06:20 06:20 WBC 5.33 RBC 3.60 L Hgb 10.0 L Hct 32.7 L MCV 90.8 MCH 27.8 MCHC 30.6 L RDW Std Deviation 65.5 H RDW Coeff of Neena 20.4 H Plt Count 198 MPV 9.5 Immature Gran % (Auto) 0.6 Neut % (Auto) 48.3 Lymph % (Auto) 32.8 [place] % (Auto) 16.3 Eos % (Auto) 0.9 Baso % (Auto) 1.1 Neut # (Auto) 2.57 Lymph # (Auto) 1.75 [place] # (Auto) 0.87 H Eos # (Auto) 0.05 Baso # (Auto) 0.06 Immature Gran # (Auto) 0.03 H Anisocytosis Present PT 13.5 H INR 1.3 H Sodium 136 Potassium 3.9 Chloride 101 Carbon Dioxide 30 Anion Gap 5.0 BUN 30 H Creatinine 1.84 H Est Cr Clr Drug Dosing 62.5 Est GFR ( Amer) 43.3 Est GFR (Non-Af Amer) 37.4 BUN/Creatinine Ratio 16.4 Glucose 119 H POC Glucose Calcium 8.9 Total Bilirubin 0.5 AST 29 ALT 15 Alkaline Phosphatase 107 Total Protein 6.9 Albumin 2.3 L Globulin 4.6 H Albumin/Globulin Ratio 0.5 L 05/19/20 05/19/20 05/19/20 08:22 11:57 17:04 WBC RBC Hgb Hct MCV MCH MCHC RDW Std Deviation RDW Coeff of Neena Plt Count MPV Immature Gran % (Auto) Neut % (Auto) Lymph % (Auto) [place] % (Auto) Eos % (Auto) Baso % (Auto) Neut # (Auto) Lymph # (Auto) [place] # (Auto) Eos # (Auto) Baso # (Auto) Immature Gran # (Auto) Anisocytosis PT INR Sodium Potassium Chloride Carbon Dioxide Anion Gap BUN Creatinine Est Cr Clr Drug Dosing Est GFR ( Amer) Est GFR (Non-Af Amer) BUN/Creatinine Ratio Glucose POC Glucose 129 H 182 H 229 H Calcium Total Bilirubin AST ALT Alkaline Phosphatase Total Protein Albumin Globulin Albumin/Globulin Ratio 05/19/20 20:34 WBC RBC Hgb Hct MCV MCH MCHC RDW Std Deviation RDW Coeff of Neena Plt Count MPV Immature Gran % (Auto) Neut % (Auto) Lymph % (Auto) [place] % (Auto) Eos % (Auto) Baso % (Auto) Neut # (Auto) Lymph # (Auto) [place] # (Auto) Eos # (Auto) Baso # (Auto) Immature Gran # (Auto) Anisocytosis PT INR Sodium Potassium Chloride Carbon Dioxide Anion Gap BUN Creatinine Est Cr Clr Drug Dosing Est GFR ( Amer) Est GFR (Non-Af Amer) BUN/Creatinine Ratio Glucose POC Glucose 202 H Calcium Total Bilirubin AST ALT Alkaline Phosphatase Total Protein Albumin Globulin Albumin/Globulin Ratio
[2020-05-19] MEDS: WARFARIN SOD 5 MG TAB PO SCH (15:51)
[2020-05-19] MEDS: ATORVASTATIN 10 MG TAB PO SCH (20:53)
[2020-05-19] MEDS: INSULIN GLARGINE SOLOSTAR 100 UNITS/ML 3 ML PEN SC SCH (20:59)
[2020-05-20] MEDS: hydrALAZINE TAB 50 MG TAB PO SCH ×4 (01:00→20:05)
[2020-05-20] MEDS: LEVOTHYROXINE SODIUM 25 MCG TABLET PO SCH (05:05)
[2020-05-20] MEDS: LEVOTHYROXINE SODIUM 200 MCG TABLET PO SCH (05:05)
[2020-05-20 07:07] LABS: INR 1.4 (0.9-1.1); Prothrombin Time 14.6 Seconds (9.0-12.0)
[2020-05-20] MEDS: INSULIN ASPART 100 UNITS/ML 3 ML PEN SQ SCH ×4 (09:33→21:18)
[2020-05-20] MEDS: UMECLIDINIUM/VILANTEROL 62.5/25MCG 7 PUFFS/INHALER INH SCH (09:37)
[2020-05-20] MEDS: FLUTICASONE PROPIONATE NA SPR 16 GM BTL SCH (09:38)
[2020-05-20] MEDS: FUROSEMIDE 80 MG TAB PO SCH ×2 (09:39→17:21)
[2020-05-20] MEDS: NYSTATIN POWDER 15GM BTL EXT SCH ×2 (09:39→20:06)
[2020-05-20] MEDS: PANTOprazole 40 MG TAB PO SCH ×2 (09:40→20:06)
[2020-05-20] MEDS: GABAPENTIN 100 MG CAP PO SCH ×3 (09:40→20:06)
[2020-05-20] MEDS: FLUoxetine HCL 20 MG CAP PO SCH (09:41)
[2020-05-20] MEDS: METOPROLOL SUCC 25MG EXT REL TAB PO SCH (09:41)
[2020-05-20] MEDS: FLUoxetine HCL 10 MG CAP PO SCH (09:41)
[2020-05-20] MEDS: WARFARIN SOD 7.5 MG TAB PO SCH (17:22)
[2020-05-20] MEDS: ATORVASTATIN 10 MG TAB PO SCH (20:05)
--- NOTE | 2020-05-20 20:05 | Hospitalist Progress Note ---
Date of Service May 20, 2020 Assessment & Plan (1) Hematemesis: Acute upper GI bleed was initially suspected and ruled out History of Anemia Per Dr. Rai Campo's notes -as per 05/17/2020 AM, ED notes: "64 yr old male with very extensive PMH including afib on Coumadin and repeat hospitalizations (last 03/2020 for UTI/COPD flare). Arrives for altered mental status and vomiting blood. AMS seems suspicious for hypoglycemia and he seems more awake/with it after 1/2 amp D50 here. He clearly was vomiting blood prior to arrival as in oropharynx and dried on chin. He states bloody nose at some point but cant remember if before or after vomiting and exam without significant blood in nares at this time. Given steroid use history and on coumadin urgently given Protonix IV. He does not appear to have history varices that I can see and thus will hold on octreotide. Vitals stable and he is stable. CT head completed given earlier AMS and on Coumadin which fortunately was negative. CXR concerning for congestive failure though he is not short of breath and only on 3 L NC at the moment." -05/18/2020: patient is status post Upper endoscopy on 05/18/2020 .As per GI communication note "S/P EGD w/ gastritis. No evidence of gross GI bleeding or high risk lesions during examination. No GI contraindication to advancement of diet as tolerated. No GI contraindication to resuming Coumadin. Would recommended PPI twice daily for 6 weeks. No plan for repeat endoscopic evaluati on. Perhaps he had nose bleed and coughed up blood as previously suggested." -Hemoglobin stable Continue to monitor Diabetes Mellitus Type 2 with halfway current use of insulin with hypoglycemia on admission, metabolic encephalopathy on admission likely from hypoglycemia -HbA1c on admission of 5.3 which is very tight glycemic control (patient reports home dose shorting dosing of 15 units TID with meals, and 40 units long acting insulin qhs) -possibly that patient may be on too much insulin at home -continue sliding scale insulin and trial Lantus of 10 units at night (2) Morbid obesity: with BMI 53.9 -has been bed bound at home since February 2020 return home from physical rehab -PT/OT assessments in this admission, case management consult -repositioning of patient on the bed History of paroxysmal ventricular tachycardia History of atrial flutter Chronic anticoagulation with coumadin -Continue home dose amiodarone INR 1.4 Increase Coumadin to 7.5 mg Chronic respiratory failure with hypoxia, hypercarbia and obstructive sleep apnea on BiPAP and chronic obstructive pulmonary disease. Chronic diastolic congestive heart failure. Right pleural effusion -on supplementary oxygen by nasal cannula, BIPAP/CPAP at night -admission CT scan 1. Persistent cardiomegaly and bilateral pleural effusions right greater than left 2. Dependent airspace opacities, likely atelectatic 3. Persistent mild mediastinal and upper abdominal lymphadenopathy 4. Nodular hepatic contour -Lasix 80 mg twice daily chronic kidney disease stage III -baseline creatinine of around in the past actually around 2 or higher in the past, admission creatinine 1.6 stable 1.8 Hypertension, -on Toprol-XL, hydralazine. Hypothyroidism -TSH 5.5 but normal free T4 and normal total T4 -Continue home Synthroid for now Hyperlipidemia -Continue statin. Depression -Continue fluoxetine Full Code Disposition patient prefers to be discharged home, with home health, PT anticipate d/c home tomorrow Admission and Anticipated Discharge Date Admission Date: May 17, 2020 Subjective Follow-up for possible upper GI bleed, etc. Seen resting in bed, comfortable, sitting up, watching TV States he feels improved today, less weak Denies abdominal pain, nausea vomiting, melena hematochezia No chest pain or shortness of breath No other symptoms Review of Systems Review of Systems: All systems reviewed & are unremarkable except as noted in Subjective Physical Exam Physical Exam: General- oriented x 3, not in distress, speaks in sentences with no effort or accessory muscle use Eyes- anicteric Neck- no JVD Lungs- clear breath sounds bilaterally, no wheezing No crackles Heart- normal rate, regular rhythm; no murmurs Abdomen- normal bowel sounds, nondistended, soft, nontender Extremities-mild pretibial edema, no calf tenderness No erythema/warmth/tenderness Neuro- alert, oriented x 3; no gross focal neurologic deficits Skin- warm & dry Results & Data Results & Data ([facility]) Vital Signs (Past 12 Hours) Vital Signs Temp Pulse Resp BP Pulse Ox 05/20/20 17:18 36.5 C 50 L 16 110/68 99 05/20/20 16:00 36.7 C 52 L 16 114/65 99 Laboratory Results Laboratory Results - last 24 hr 05/19/20 05/20/20 05/20/20 20:34 06:16 08:41 PT 14.6 H INR 1.4 H POC Glucose 202 H 155 H 05/20/20 05/20/20 12:37 17:37 PT INR POC Glucose 169 H 221 H
[2020-05-20] MEDS: INSULIN GLARGINE SOLOSTAR 100 UNITS/ML 3 ML PEN SC SCH (21:16)
[2020-05-21] MEDS: LEVOTHYROXINE SODIUM 200 MCG TABLET PO SCH (05:27)
[2020-05-21] MEDS: LEVOTHYROXINE SODIUM 25 MCG TABLET PO SCH (05:27)
[2020-05-21 07:04] LABS: INR 1.7 (0.9-1.1); Prothrombin Time 17.1 Seconds (9.0-12.0)
[2020-05-21] MEDS: INSULIN ASPART 100 UNITS/ML 3 ML PEN SQ SCH ×4 (09:26→20:39)
[2020-05-21] MEDS: FLUTICASONE PROPIONATE NA SPR 16 GM BTL SCH (09:32)
[2020-05-21] MEDS: UMECLIDINIUM/VILANTEROL 62.5/25MCG 7 PUFFS/INHALER INH SCH (09:32)
[2020-05-21] MEDS: hydrALAZINE TAB 50 MG TAB PO SCH ×4 (09:33→20:37)
[2020-05-21] MEDS: FLUoxetine HCL 20 MG CAP PO SCH (09:33)
[2020-05-21] MEDS: FLUoxetine HCL 10 MG CAP PO SCH (09:33)
[2020-05-21] MEDS: FUROSEMIDE 80 MG TAB PO SCH ×2 (09:33→18:03)
[2020-05-21] MEDS: METOPROLOL SUCC 25MG EXT REL TAB PO SCH (09:33)
[2020-05-21] MEDS: PANTOprazole 40 MG TAB PO SCH ×2 (09:33→20:37)
[2020-05-21] MEDS: GABAPENTIN 100 MG CAP PO SCH ×3 (09:33→20:38)
[2020-05-21] MEDS: NYSTATIN POWDER 15GM BTL EXT SCH ×2 (09:35→20:38)
--- NOTE | 2020-05-21 15:41 | Hospitalist Progress Note ---
Date of Service May 21, 2020 Assessment & Plan (1) Hematemesis: Acute upper GI bleed was initially suspected and ruled out History of Anemia Per Dr. Rai Campo's notes -as per 05/17/2020 AM, ED notes: "64 yr old male with very extensive PMH including afib on Coumadin and repeat hospitalizations (last 03/2020 for UTI/COPD flare). Arrives for altered mental status and vomiting blood. AMS seems suspicious for hypoglycemia and he seems more awake/with it after 1/2 amp D50 here. He clearly was vomiting blood prior to arrival as in oropharynx and dried on chin. He states bloody nose at some point but cant remember if before or after vomiting and exam without significant blood in nares at this time. Given steroid use history and on coumadin urgently given Protonix IV. He does not appear to have history varices that I can see and thus will hold on octreotide. Vitals stable and he is stable. CT head completed given earlier AMS and on Coumadin which fortunately was negative. CXR concerning for congestive failure though he is not short of breath and only on 3 L NC at the moment." -05/18/2020: patient is status post Upper endoscopy on 05/18/2020 .As per GI communication note "S/P EGD w/ gastritis. No evidence of gross GI bleeding or high risk lesions during examination. No GI contraindication to advancement of diet as tolerated. No GI contraindication to resuming Coumadin. Would recommended PPI twice daily for 6 weeks. No plan for repeat endoscopic evaluati on. Perhaps he had nose bleed and coughed up blood as previously suggested." -Hemoglobin stable repeat CBC on ff up with PCP in 1 week Diabetes Mellitus Type 2 with detention current use of insulin with hypoglycemia on admission, metabolic encephalopathy on admission likely from hypoglycemia -HbA1c on admission of 5.3 which is very tight glycemic control (patient reports home dose shorting dosing of 15 units TID with meals, and 40 units long acting insulin qhs) -possibly that patient may be on too much insulin at home -continue sliding scale insulin and reduce Insulin Lantus to 10 units at night (2) Morbid obesity: with BMI 53.9 -has been bed bound at home since February 2020 return home from physical rehab -PT/OT assessments in this admission, case management consult -repositioning of patient on the bed History of paroxysmal ventricular tachycardia History of atrial flutter Chronic anticoagulation with coumadin -Continue home dose amiodarone INR 1.7 continue coumadin ff up with [facility] for INR check Thursday 05/24 Chronic respiratory failure with hypoxia, hypercarbia and obstructive sleep apnea on BiPAP and chronic obstructive pulmonary disease. Chronic diastolic congestive heart failure. Right pleural effusion -on supplementary oxygen by nasal cannula, BIPAP/CPAP at night -admission CT scan 1. Persistent cardiomegaly and bilateral pleural effusions right greater than left 2. Dependent airspace opacities, likely atelectatic 3. Persistent mild mediastinal and upper abdominal lymphadenopathy 4. Nodular hepatic contour - euvolemic -continue Lasix 80 mg twice daily chronic kidney disease stage III -baseline creatinine of around in the past actually around 2 or higher in the past, admission creatinine 1.6 stable 1.8 monitor renal function as outpatient Hypertension, -on Toprol-XL, hydralazine. Hypothyroidism -TSH 5.5 but normal free T4 and normal total T4 -Continue home Synthroid for now repeat TFT as outpatient in 1 month Hyperlipidemia -Continue statin. Depression -Continue fluoxetine Full Code Disposition patient prefers to be discharged home, with home health, PT ff up with PCP in 1 week Admission and Anticipated Discharge Date Admission Date: May 17, 2020 Subjective ff up for possible upper GI bleed seen resting in bed, comfortable on 3 L o2 NC oriented, answers all questions appropriately states he feels fine overall denies shortness of breath, chest pain, palpitations, dizziness no abdominal pain, nausea/vomiting, melena no other symptoms states he is ready and would like to be discharged today Review of Systems Review of Systems: All systems reviewed & are unremarkable except as noted in Subjective Physical Exam Physical Exam: General- oriented x 3, not in distress, speaks in sentences with no effort or accessory muscle use Eyes- anicteric Neck- no JVD Lungs- clear breath sounds bilaterally, no rales/wheezes Heart- normal rate, regular rhythm; no murmurs Abdomen- normal bowel sounds, nondistended, soft, nontender Extremities- trace pretibial edema, no calf tenderness Neuro- alert, oriented x 3; no gross focal neurologic deficits Skin- warm & dry Results & Data Results & Data ([facility]) Vital Signs (Past 12 Hours) Vital Signs Temp Pulse Resp BP Pulse Ox 05/21/20 07:27 36.7 C 54 L 18 108/60 100 Laboratory Results Laboratory Results - last 24 hr 05/20/20 05/20/20 05/21/20 17:37 20:57 06:25 PT 17.1 H INR 1.7 H POC Glucose 221 H 193 H 05/21/20 11:52 PT INR POC Glucose 187 H
--- NOTE | 2020-05-21 15:55 | Discharge Summary ---
Date of Service May 21, 2020 Admission HPI Per Admitting Provider 64 yo male with a history of being admitted through the ER for melena. No melena overnite. No acute complaints this am. Hgb essentially stable. No further melena. He is wheezing somewhat but reports no difficulty with breathing at the moment. Discharge Data Allergies Allergy/AdvReac Type Severity Reaction Status Date / Time pollen extracts Allergy Mild sneezing/watery Verified 05/17/20 05:58 eyes Consultations 05/17/20 06:04 ED Decision to Admit Stat 05/17/20 09:06 Consult Case Management - Discharge Planning Routine Consult Gastroenterology Routine Procedures Performed Operation Date: 05/18/20 08:30 Actual Procedures p Esophagogastroduodenoscopy - Vero Quispe MD Ordered Studies 05/17/20 05:23 CT head/brain wo con Stat 05/17/20 06:53 CT chest wo con Stat Hospital Course (1) Hematemesis: Acute upper GI bleed was initially suspected and ruled out History of Anemia Per Dr. Rai Campo's notes -as per 05/17/2020 AM, ED notes: "64 yr old male with very extensive PMH including afib on Coumadin and repeat hospitalizations (last 03/2020 for UTI/COPD flare). Arrives for altered mental status and vomiting blood. AMS seems suspicious for hypoglycemia and he seems more awake/with it after 1/2 amp D50 here. He clearly was vomiting blood prior to arrival as in oropharynx and dried on chin. He states bloody nose at some point but cant remember if before or after vomiting and exam without significant blood in nares at this time. Given steroid use history and on coumadin urgently given Protonix IV. He does not appear to have history varices that I can see and thus will hold on octreotide. Vitals stable and he is stable. CT head completed given earlier AMS and on Coumadin which fortunately was negative. CXR concerning for congestive failure though he is not short of breath and only on 3 L NC at the moment." -05/18/2020: patient is status post Upper endoscopy on 05/18/2020 .As per GI communication note "S/P EGD w/ gastritis. No evidence of gross GI bleeding or high risk lesions during examination. No GI contraindication to advancement of diet as tolerated. No GI contraindication to resuming Coumadin. Would recommended PPI twice daily for 6 weeks. No plan for repeat endoscopic evaluatio n. 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 with hypoglycemia on admission, metabolic encephalopathy on admission likely from hypoglycemia -HbA1c on admission of 5.3 which is very tight glycemic control (patient reports home dose shorting dosing of 15 units TID with meals, and 40 units long acting insulin qhs) -possibly that patient may be on too much insulin at home -continue sliding scale insulin and reduce Insulin Lantus to 10 units at night (2) Morbid obesity: with BMI 53.9 -has been bed bound at home since February 2020 return home from physical rehab -PT/OT assessments in this admission, case management consult -repositioning of patient on the bed History of paroxysmal ventricular tachycardia History of atrial flutter Chronic anticoagulation with coumadin -Continue home dose amiodarone INR 1.7 continue coumadin ff up with [facility] for INR check Thursday 05/24 Chronic respiratory failure with hypoxia, hypercarbia and obstructive sleep apnea on BiPAP and chronic obstructive pulmonary disease. Chronic diastolic congestive heart failure. Right pleural effusion -on supplementary oxygen by nasal cannula, BIPAP/CPAP at night -admission CT scan 1. Persistent cardiomegaly and bilateral pleural effusions right greater than left 2. Dependent airspace opacities, likely atelectatic 3. Persistent mild mediastinal and upper abdominal lymphadenopathy 4. Nodular hepatic contour - euvolemic -continue Lasix 80 mg twice daily chronic kidney disease stage III -baseline creatinine of around in the past actually around 2 or higher in the past, admission creatinine 1.6 stable 1.8 monitor renal function as outpatient Hypertension, -on Toprol-XL, hydralazine. Hypothyroidism -TSH 5.5 but normal free T4 and normal total T4 -Continue home Synthroid for now repeat TFT as outpatient in 1 month Hyperlipidemia -Continue statin. Depression -Continue fluoxetine Full Code Disposition patient prefers to be discharged home, with home health, PT ff up with PCP in 1 week Discharge Plan Discharge Items Patient Disposition: Home - Home Health Services Reason For Visit: SOB AND VOMITING BLOOD Discharge Diagnosis: Acute upper gastrointestinal bleed ruled out Activity: As commented below Activity Comment: Resume activity gradually as tolerated, fall precautions please Lifting: Wait until after follow-up appointment Driving/Machine Use: No driving Non-emergency contact: Primary Care Provider Call non-emergency contact if: you have any medication questions, your symptoms worsen and you have a fever Follow-up/Referrals: Susanne Macias DO [Primary Care Provider] - 05/26/20 11:00 am (Date & Time 05/26/2020 11:00 AM Provider Susanne Macias DO [facility] ) Diet: Carb Consistent or DM2 and Heart Healthy Addtl Attending Provider Instructions: Please review your new medication list and follow instructions carefully. Call primary care physician or return to the ER immediately if with worsening of symptoms, including Black or bloody stools, nausea or vomiting, abdominal pain, weakness, shortness of breath, increasing leg swelling, chest pain, Fevers or chills, confusion. Pending Studies at Discharge: Yes Studies:: Repeat bloodwork including CBC and BMP on ff up visit with PCP Stand-Alone Forms: My [facility] Typekit, Smoking Cessation Medications and DC Order Prescriptions: New Lantus Solostar U-100 Insulin 100 unit/mL (3 mL) Insulin Pen 10 unit SC HS Qty: 3 RF: 0 Continued pantoprazole 40 mg tablet,delayed release (DR/EC) 40 mg PO BID RF: 0 atorvastatin 10 mg tablet 10 mg PO HS RF: 0 levothyroxine 25 mcg tablet 25 mcg PO QAM RF: 0 levothyroxine 200 mcg tablet 200 mcg PO QAM RF: 0 metoprolol succinate 25 mg tablet extended release 24 hr 25 mg PO QAM RF: 0 fluoxetine 10 mg Tablet 10 mg PO DAILY RF: 0 insulin aspart U-100 [Novolog U-100 Insulin aspart] 100 unit/mL Solution 1 sliding scale dose SUBCUT TID RF: 0 fluoxetine 20 mg Tablet 20 mg PO DAILY RF: 0 hydralazine 50 mg Tablet 50 mg PO QID RF: 0 albuterol sulfate 90 mcg/actuation Hfa Aerosol Inhaler 2 puff INHALATION QID PRN (Reason: Shortness Of Breath Or Wheezing) RF: 0 Anoro Ellipta 62.5-25 mcg/actuation Blister With Device 1 ea inhalation DAILY Qty: 14 RF: 0 furosemide 80 mg tablet 80 mg PO BID RF: 0 gabapentin 100 mg capsule 100 mg PO TID RF: 0 warfarin 1 mg tablet 1 - 2 mg PO DAILY RF: 0 linaclotide 145 mcg Capsule 145 mcg PO QAM RF: 0 fluticasone propionate [Flonase] 50 mcg/actuation [place],Suspension 2 spray INTRANASAL DAILY RF: 0 nystatin 100,000 unit/gram Powder 1 applic TOPICAL BID RF: 0 Calmoseptine 0.44-20.6 % Ointment 1 applic TOPICAL TID PRN (Reason: to buttocks) RF: 0 Stress Formula + Zinc Tablet 1 tab PO DAILY RF: 0 tramadol 50 mg Tablet 50 mg PO Q4 PRN (Reason: Pain) RF: 0 tramadol 50 mg Tablet 50 mg PO BID RF: 0 Discontinued Lantus Solostar U-100 Insulin 100 unit/mL (3 mL) insulin pen 40 unit SUBCUT HS RF: 0 Discharge Orders: Discharge Order (Routine); Ordered 05/21/20 Ordered By: Sanjay Mccloud/Other Patient Handouts: High Blood Sugar (Hyperglycemia), Hypoglycemia (Low Blood Sugar) Admission Data Admit Date/Time: 05/17/20 06:53 Attending Provider: Sanjay Rocha Admit Provider: Jamel Ingram Primary Care Provider: Susanne Macias Other Providers: Jamel Ingram ; Casimiro Vegas ; Rai Campo
[2020-05-21] MEDS ORDERED: MEROPENEM CONSULT ACITVE PRN (16:13)
[2020-05-21] MEDS: WARFARIN SOD 7.5 MG TAB PO SCH (16:18)
[2020-05-21] MEDS: MEROPENEM 500 MG in SYRINGE 0 ML IV SCH ×2 (19:50→23:36)
[2020-05-21] MEDS: ATORVASTATIN 10 MG TAB PO SCH (20:37)
[2020-05-21] MEDS: INSULIN GLARGINE SOLOSTAR 100 UNITS/ML 3 ML PEN SC SCH (20:38)
[2020-05-22 04:39] LABS: Prothrombin Time 20.2 Seconds (9.0-12.0)
[2020-05-22] MEDS: LEVOTHYROXINE SODIUM 200 MCG TABLET PO SCH (04:59)
[2020-05-22] MEDS: LEVOTHYROXINE SODIUM 25 MCG TABLET PO SCH (04:59)
[2020-05-22] MEDS ORDERED: Nursing to Pharmacy Communication SCH (17:45)
[2020-05-22] MEDS: WARFARIN SOD 5 MG TAB PO SCH (18:01)
[2020-05-22] MEDS: MEROPENEM 500 MG in SYRINGE 0 ML IV SCH ×3 (18:03→18:10)
[2020-05-22] MEDS: INSULIN ASPART 100 UNITS/ML 3 ML PEN SQ SCH ×4 (18:04→21:39)
--- NOTE | 2020-05-22 18:22 | Hospitalist Progress Note ---
Date of Service May 22, 2020 Assessment & Plan (1) Hematemesis: Acute upper GI bleed was initially suspected and ruled out History of Anemia Per Dr. Rai Campo's notes -as per 05/17/2020 AM, ED notes: "64 yr old male with very extensive PMH including afib on Coumadin and repeat hospitalizations (last 03/2020 for UTI/COPD flare). Arrives for altered mental status and vomiting blood. AMS seems suspicious for hypoglycemia and he seems more awake/with it after 1/2 amp D50 here. He clearly was vomiting blood prior to arrival as in oropharynx and dried on chin. He states bloody nose at some point but cant remember if before or after vomiting and exam without significant blood in nares at this time. Given steroid use history and on coumadin urgently given Protonix IV. He does not appear to have history varices that I can see and thus will hold on octreotide. Vitals stable and he is stable. CT head completed given earlier AMS and on Coumadin which fortunately was negative. CXR concerning for congestive failure though he is not short of breath and only on 3 L NC at the moment." -05/18/2020: patient is status post Upper endoscopy on 05/18/2020 .As per GI communication note "S/P EGD w/ gastritis. No evidence of gross GI bleeding or high risk lesions during examination. No GI contraindication to advancement of diet as tolerated. No GI contraindication to resuming Coumadin. Would recommended PPI twice daily for 6 weeks. No plan for repeat endoscopic evaluati on. Perhaps he had nose bleed and coughed up blood as previously suggested." -Hemoglobin stable repeat CBC on ff up with PCP in 1 week Diabetes Mellitus Type 2 with custodial current use of insulin with hypoglycemia on admission, metabolic encephalopathy on admission likely from hypoglycemia -HbA1c on admission of 5.3 which is very tight glycemic control (patient reports home dose shorting dosing of 15 units TID with meals, and 40 units long acting insulin qhs) -possibly that patient may be on too much insulin at home -continue sliding scale insulin and reduce Insulin Lantus to 10 units at night UTI, Pseudomonas Urine culture positive for Pseudomonas Meropenem day #2, tolerating antibiotic well Continue to monitor, today oriented x3, answers questions appropriately continue to monitor mental status (2) Morbid obesity: with BMI 53.9 -has been bed bound at home since February 2020 return home from physical rehab -PT/OT assessments in this admission, case management consult -repositioning of patient on the bed History of paroxysmal ventricular tachycardia History of atrial flutter Chronic anticoagulation with coumadin -Continue home dose amiodarone INR 2.0 continue coumadin ff up with [facility] Clinic Chronic respiratory failure with hypoxia, hypercarbia and obstructive sleep apnea on BiPAP and chronic obstructive pulmonary disease. Chronic diastolic congestive heart failure. Right pleural effusion -on supplementary oxygen by nasal cannula, BIPAP/CPAP at night -admission CT scan 1. Persistent cardiomegaly and bilateral pleural effusions right greater than left 2. Dependent airspace opacities, likely atelectatic 3. Persistent mild mediastinal and upper abdominal lymphadenopathy 4. Nodular hepatic contour -continue Lasix 80 mg twice daily chronic kidney disease stage III -baseline creatinine of around in the past actually around 2 or higher in the past, admission creatinine 1.6 stable 1.8 Hypertension, -on Toprol-XL, hydralazine. Hypothyroidism -TSH 5.5 but normal free T4 and normal total T4 -Continue home Synthroid for now repeat TFT as outpatient in 1 month Hyperlipidemia -Continue statin. Depression -Continue fluoxetine Full Code Disposition Pending Admission and Anticipated Discharge Date Admission Date: May 17, 2020 Subjective Follow-up for possible GI bleed, UTI Seen resting in bed, comfortable, not in distress Oriented x3 Answers questions appropriately States he feels fine overall Denies fevers or chills, abdominal pain, dysuria No shortness of breath, cough, chest pain, dizziness, palpitation Appetite is good No melena or hematochezia No other symptom Review of Systems Review of Systems: All systems reviewed & are unremarkable except as noted in Subjective Physical Exam Physical Exam: General- oriented x 3, not in distress, speaks in sentences with no effort or accessory muscle use Eyes- anicteric Neck- no JVD Lungs-mild expiratory wheeze, good air entry bilaterally Heart- normal rate, regular rhythm; no murmurs Abdomen- normal bowel sounds, nondistended, soft, nontender Extremities-mild pretibial edema, no calf tenderness Neuro- alert, oriented x 3; no new gross focal neurologic deficits Skin- warm & dry Results & Data Results & Data ([facility]) Laboratory Results Laboratory Results - last 24 hr 05/21/20 05/22/20 05/22/20 20:18 03:36 17:07 PT 20.2 H INR 2.0 H POC Glucose 186 H 197 H
[2020-05-22] MEDS: FLUTICASONE PROPIONATE NA SPR 16 GM BTL SCH (19:06)
[2020-05-22] MEDS: NYSTATIN POWDER 15GM BTL EXT SCH ×2 (19:06→21:37)
[2020-05-22] MEDS: GABAPENTIN 100 MG CAP PO SCH ×3 (19:06→21:37)
[2020-05-22] MEDS: UMECLIDINIUM/VILANTEROL 62.5/25MCG 7 PUFFS/INHALER INH SCH (19:06)
[2020-05-22] MEDS: FUROSEMIDE 80 MG TAB PO SCH ×2 (19:06→19:08)
[2020-05-22] MEDS: hydrALAZINE TAB 50 MG TAB PO SCH ×4 (19:06→21:37)
[2020-05-22] MEDS: FLUoxetine HCL 20 MG CAP PO SCH (19:07)
[2020-05-22] MEDS: PANTOprazole 40 MG TAB PO SCH ×2 (19:07→21:37)
[2020-05-22] MEDS: FLUoxetine HCL 10 MG CAP PO SCH (19:07)
[2020-05-22] MEDS: METOPROLOL SUCC 25MG EXT REL TAB PO SCH (19:07)
[2020-05-22] MEDS: WARFARIN SOD 7.5 MG TAB PO SCH (19:28)
[2020-05-22] MEDS: ATORVASTATIN 10 MG TAB PO SCH (21:37)
[2020-05-22] MEDS: INSULIN GLARGINE SOLOSTAR 100 UNITS/ML 3 ML PEN SC SCH (21:37)
[2020-05-23] MEDS: MEROPENEM 500 MG in SYRINGE 0 ML IV SCH ×5 (00:39→23:17)
[2020-05-23 04:25] LABS: Hematocrit (blood only) 30.8 % (42-52); Hemoglobin 9.5 g/dL (14.0-18.0); Mean Corpuscular Hemoglobin 28.1 pg (25-34); Mean Corpuscular Hgb Conc 30.8 g/dL (32-36); Mean Corpuscular Volume 91.1 fL (80-100); Mean Platelet Volume 9.2 fL (7.4-10.4); Platelet Count 182 K/uL (130-400); RDW Coefficient of Variation 20.7 % (11.5-14.5); Red Blood Count 3.38 M/uL (4.7-6.1)
[2020-05-23 04:35] LABS: INR 2.4 (0.9-1.1); Prothrombin Time 23.8 Seconds (9.0-12.0)
[2020-05-23 04:44] LABS: BUN Creatinine Ratio 16.6 (10-20); Calcium 8.3 mg/dl (8.5-10.1); Creatinine Clr Calc Pharmacy 69.5 ml/min; Est GFR (Non-African American) 42.3; Potassium 4.4 mmol/L (3.5-5.1)
[2020-05-23] MEDS: LEVOTHYROXINE SODIUM 25 MCG TABLET PO SCH (05:21)
[2020-05-23] MEDS: LEVOTHYROXINE SODIUM 200 MCG TABLET PO SCH (05:21)
[2020-05-23] MEDS: UMECLIDINIUM/VILANTEROL 62.5/25MCG 7 PUFFS/INHALER INH SCH (09:13)
[2020-05-23] MEDS: hydrALAZINE TAB 50 MG TAB PO SCH ×4 (09:14→21:22)
[2020-05-23] MEDS: FLUTICASONE PROPIONATE NA SPR 16 GM BTL SCH (09:14)
[2020-05-23] MEDS: NYSTATIN POWDER 15GM BTL EXT SCH ×2 (09:15→21:22)
[2020-05-23] MEDS: GABAPENTIN 100 MG CAP PO SCH ×3 (09:15→21:22)
[2020-05-23] MEDS: FUROSEMIDE 80 MG TAB PO SCH ×2 (09:15→17:41)
[2020-05-23] MEDS: FLUoxetine HCL 10 MG CAP PO SCH (09:16)
[2020-05-23] MEDS: PANTOprazole 40 MG TAB PO SCH ×2 (09:16→21:22)
[2020-05-23] MEDS: FLUoxetine HCL 20 MG CAP PO SCH (09:16)
[2020-05-23] MEDS: METOPROLOL SUCC 25MG EXT REL TAB PO SCH (09:17)
[2020-05-23] MEDS: INSULIN ASPART 100 UNITS/ML 3 ML PEN SQ SCH ×4 (09:19→21:25)
[2020-05-23] MEDS ORDERED: FUROSEMIDE 40 MG in SYRINGE 0 ML IV ONE (12:30)
[2020-05-23] MEDS: DOCUSATE SODIUM/SENNA 50/8.6MG TAB PO SCH (12:58)
[2020-05-23] MEDS: WARFARIN SOD 5 MG TAB PO SCH (16:24)
--- NOTE | 2020-05-23 20:02 | Hospitalist Progress Note ---
Date of Service May 23, 2020 Assessment & Plan (1) Hematemesis: Acute upper GI bleed was initially suspected and ruled out History of Anemia Per Dr. Rai Campo's notes -as per 05/17/2020 AM, ED notes: "64 yr old male with very extensive PMH including afib on Coumadin and repeat hospitalizations (last 03/2020 for UTI/COPD flare). Arrives for altered mental status and vomiting blood. AMS seems suspicious for hypoglycemia and he seems more awake/with it after 1/2 amp D50 here. He clearly was vomiting blood prior to arrival as in oropharynx and dried on chin. He states bloody nose at some point but cant remember if before or after vomiting and exam without significant blood in nares at this time. Given steroid use history and on coumadin urgently given Protonix IV. He does not appear to have history varices that I can see and thus will hold on octreotide. Vitals stable and he is stable. CT head completed given earlier AMS and on Coumadin which fortunately was negative. CXR concerning for congestive failure though he is not short of breath and only on 3 L NC at the moment." -05/18/2020: patient is status post Upper endoscopy on 05/18/2020 .As per GI communication note "S/P EGD w/ gastritis. No evidence of gross GI bleeding or high risk lesions during examination. No GI contraindication to advancement of diet as tolerated. No GI contraindication to resuming Coumadin. Would recommended PPI twice daily for 6 weeks. No plan for repeat endoscopic evaluati on. Perhaps he had nose bleed and coughed up blood as previously suggested." -Hemoglobin remained stable repeat CBC on ff up with PCP in 1 week Diabetes Mellitus Type 2 with [facility] current use of insulin with hypoglycemia on admission, metabolic encephalopathy on admission likely from hypoglycemia -HbA1c on admission of 5.3 which is very tight glycemic control (patient reports home dose shorting dosing of 15 units TID with meals, and 40 units long acting insulin qhs) -possibly that patient may be on too much insulin at home -continue sliding scale insulin and reduce Insulin Lantus to 10 units at night UTI, Pseudomonas Urine culture positive for Pseudomonas Meropenem day #3, tolerating antibiotic well Mental status seems to be improving Appears more alert, conversant Continue to monitor closely (2) Morbid obesity: with BMI 53.9 -has been bed bound at home since February 2020 return home from physical rehab -PT/OT assessments in this admission, case management consult -repositioning of patient on the bed History of paroxysmal ventricular tachycardia History of atrial flutter Chronic anticoagulation with coumadin -Continue home dose amiodarone INR 2.4 continue coumadin ff up with Coumadin Clinic Chronic respiratory failure with hypoxia, hypercarbia and obstructive sleep apnea on BiPAP and chronic obstructive pulmonary disease. Chronic diastolic congestive heart failure. Right pleural effusion -on supplementary oxygen by nasal cannula, BIPAP/CPAP at night -admission CT scan 1. Persistent cardiomegaly and bilateral pleural effusions right greater than left 2. Dependent airspace opacities, likely atelectatic 3. Persistent mild mediastinal and upper abdominal lymphadenopathy 4. Nodular hepatic contour -Persistent lower leg edema, add Lasix 40 mg IV 1 dose today -continue Lasix 80 mg twice daily chronic kidney disease stage III -baseline creatinine of around in the past actually around 2 or higher in the past, admission creatinine 1.6 stable 1.6 Hypertension, -on Toprol-XL, hydralazine. Hypothyroidism -TSH 5.5 but normal free T4 and normal total T4 -Continue home Synthroid for now repeat TFT as outpatient in 1 month Hyperlipidemia -Continue statin. Depression -Continue fluoxetine Full Code Disposition Pending Admission and Anticipated Discharge Date Admission Date: May 17, 2020 Subjective Follow-up for possible upper GI bleed, Pseudomonas UTI, CHF, etc. Seen resting in bed, comfortable, not in distress On usual 3 L of oxygen via nasal cannula Mental x3, answers all questions appropriately Appears more alert and conversant today CC feels fine overall Denies any chest pain, shortness of breath, palpitations, dizziness No abdominal pain, nausea vomiting no fevers or chills, problems urination Denies other symptoms Review of Systems Review of Systems: All systems reviewed & are unremarkable except as noted in Subjective Physical Exam Physical Exam: General- oriented x 3, not in distress, speaks in sentences with no effort or accessory muscle use Eyes- anicteric Neck- no JVD Lungs- clear breath sounds bilaterally, no wheezing, no crackles noted Heart- normal rate, regular rhythm; no murmurs Abdomen- normal bowel sounds, nondistended, soft, nontender Extremities-mild pretibial edema, no calf tenderness No erythema/warmth/tenderness Neuro- alert, oriented x 3; no gross focal neurologic deficits Skin- warm & dry Results & Data Results & Data ([facility]) Vital Signs (Past 12 Hours) Vital Signs Temp Pulse Resp BP Pulse Ox 05/23/20 15:27 36.8 C 58 L 18 109/62 98 Laboratory Results Laboratory Results - last 24 hr 05/22/20 05/23/20 05/23/20 21:03 04:15 04:15 WBC 5.50 RBC 3.38 L Hgb 9.5 L Hct 30.8 L MCV 91.1 MCH 28.1 MCHC 30.8 L RDW Std Deviation 68.0 H RDW Coeff of Neena 20.7 H Plt Count 182 MPV 9.2 PT 23.8 H INR 2.4 H Sodium Potassium Chloride Carbon Dioxide Anion Gap BUN Creatinine Est Cr Clr Drug Dosing Est GFR ( Amer) Est GFR (Non-Af Amer) BUN/Creatinine Ratio Glucose POC Glucose 185 H Calcium 05/23/20 05/23/20 05/23/20 04:15 08:04 12:15 WBC RBC Hgb Hct MCV MCH MCHC RDW Std Deviation RDW Coeff of Neena Plt Count MPV PT INR Sodium 137 Potassium 4.4 Chloride 102 Carbon Dioxide 33 H Anion Gap 2.0 L BUN 28 H Creatinine 1.66 H Est Cr Clr Drug Dosing 69.5 Est GFR ( Amer) 49.0 Est GFR (Non-Af Amer) 42.3 BUN/Creatinine Ratio 16.6 Glucose 167 H POC Glucose 169 H 240 H Calcium 8.3 L 05/23/20 17:08 WBC RBC Hgb Hct MCV MCH MCHC RDW Std Deviation RDW Coeff of Neena Plt Count MPV PT INR Sodium Potassium Chloride Carbon Dioxide Anion Gap BUN Creatinine Est Cr Clr Drug Dosing Est GFR ( Amer) Est GFR (Non-Af Amer) BUN/Creatinine Ratio Glucose POC Glucose 179 H Calcium
[2020-05-23] MEDS: ATORVASTATIN 10 MG TAB PO SCH (21:22)
[2020-05-23] MEDS: INSULIN GLARGINE SOLOSTAR 100 UNITS/ML 3 ML PEN SC SCH (21:23)
[2020-05-24] MEDS: MEROPENEM 500 MG in SYRINGE 0 ML IV SCH ×3 (05:18→17:51)
[2020-05-24] MEDS: LEVOTHYROXINE SODIUM 200 MCG TABLET PO SCH (05:18)
[2020-05-24] MEDS: LEVOTHYROXINE SODIUM 25 MCG TABLET PO SCH (05:18)
[2020-05-24] MEDS: ACETAMINOPHEN 325 MG TAB PO PRN (06:30)
[2020-05-24 07:10] LABS: BUN Creatinine Ratio 17.4 (10-20); Calcium 8.8 mg/dl (8.5-10.1); Creatinine Clr Calc Pharmacy 72.6 ml/min; Est GFR (African American) 51.7; Est GFR (Non-African American) 44.6; Magnesium 1.9 mg/dl (1.8-2.4); Potassium 4.2 mmol/L (3.5-5.1)
[2020-05-24] MEDS: METOPROLOL SUCC 25MG EXT REL TAB PO SCH (08:37)
[2020-05-24] MEDS: FLUoxetine HCL 20 MG CAP PO SCH (08:37)
[2020-05-24] MEDS: PANTOprazole 40 MG TAB PO SCH ×2 (08:37→20:51)
[2020-05-24] MEDS: GABAPENTIN 100 MG CAP PO SCH ×3 (08:37→20:52)
[2020-05-24] MEDS: DOCUSATE SODIUM/SENNA 50/8.6MG TAB PO SCH (08:37)
[2020-05-24] MEDS: FLUoxetine HCL 10 MG CAP PO SCH (08:38)
[2020-05-24] MEDS: FUROSEMIDE 80 MG TAB PO SCH ×2 (08:38→16:35)
[2020-05-24] MEDS: FLUTICASONE PROPIONATE NA SPR 16 GM BTL SCH (08:38)
[2020-05-24] MEDS: hydrALAZINE TAB 50 MG TAB PO SCH ×4 (08:38→20:52)
[2020-05-24] MEDS: NYSTATIN POWDER 15GM BTL EXT SCH ×2 (08:39→20:51)
[2020-05-24] MEDS: INSULIN ASPART 100 UNITS/ML 3 ML PEN SQ SCH ×4 (08:43→20:58)
[2020-05-24] MEDS: UMECLIDINIUM/VILANTEROL 62.5/25MCG 7 PUFFS/INHALER INH SCH (09:07)
--- NOTE | 2020-05-24 12:04 | Electrocardiogram Report ---
Test Reason : Blood Pressure : / mmHG Vent. Rate : 053 BPM Atrial Rate : 053 BPM P-R Int : 212 ms QRS Dur : 198 ms QT Int : 524 ms P-R-T Axes : 051 -23 044 degrees QTc Int : 491 ms Sinus bradycardia with 1st degree A-V block with occasional Premature ventricular complexes Left bundle branch block Abnormal ECG When compared with ECG of 17-MAY-2020 05:25, Premature ventricular complexes are now Present QRS duration has increased Confirmed by Cassius De La Paz ([id number]) on 05/24/2020 12:04:29 PM Referred By: REFERRED SELF Confirmed By:Cassius De La Paz
[2020-05-24] MEDS: WARFARIN SOD 5 MG TAB PO SCH (16:36)
--- NOTE | 2020-05-24 17:08 | Hospitalist Progress Note ---
Date of Service May 24, 2020 Assessment & Plan (1) Hematemesis: Acute upper GI bleed was initially suspected and ruled out History of Anemia Per Dr. Rai Campo's notes -as per 05/17/2020 AM, ED notes: "64 yr old male with very extensive PMH including afib on Coumadin and repeat hospitalizations (last 03/2020 for UTI/COPD flare). Arrives for altered mental status and vomiting blood. AMS seems suspicious for hypoglycemia and he seems more awake/with it after 1/2 amp D50 here. He clearly was vomiting blood prior to arrival as in oropharynx and dried on chin. He states bloody nose at some point but cant remember if before or after vomiting and exam without significant blood in nares at this time. Given steroid use history and on coumadin urgently given Protonix IV. He does not appear to have history varices that I can see and thus will hold on octreotide. Vitals stable and he is stable. CT head completed given earlier AMS and on Coumadin which fortunately was negative. CXR concerning for congestive failure though he is not short of breath and only on 3 L NC at the moment." -05/18/2020: patient is status post Upper endoscopy on 05/18/2020 .As per GI communication note "S/P EGD w/ gastritis. No evidence of gross GI bleeding or high risk lesions during examination. No GI contraindication to advancement of diet as tolerated. No GI contraindication to resuming Coumadin. Would recommended PPI twice daily for 6 weeks. No plan for repeat endoscopic evaluati on. Perhaps he had nose bleed and coughed up blood as previously suggested." -Hemoglobin remained stable repeat CBC on ff up with PCP in 1 week Diabetes Mellitus Type 2 with [facility] current use of insulin with hypoglycemia on admission, metabolic encephalopathy on admission likely from hypoglycemia -HbA1c on admission of 5.3 which is very tight glycemic control (patient reports home dose shorting dosing of 15 units TID with meals, and 40 units long acting insulin qhs) -possibly that patient may be on too much insulin at home -continue sliding scale insulin and reduce Insulin Lantus to 10 units at night UTI, Pseudomonas Urine culture positive for Pseudomonas Meropenem day #4, tolerating antibiotic well Mental status seems to be improving more alert, conversant Continue Meropenem until to complete 7 day course (2) Morbid obesity: with BMI 53.9 -has been bed bound at home since February 2020 return home from physical rehab -PT/OT assessments in this admission, case management consult -repositioning of patient on the bed History of paroxysmal ventricular tachycardia History of atrial flutter Chronic anticoagulation with coumadin -Continue home dose amiodarone INR 2.4 continue coumadin ff up with [facility] Chronic respiratory failure with hypoxia, hypercarbia and obstructive sleep apnea on BiPAP and chronic obstructive pulmonary disease. Chronic diastolic congestive heart failure. Right pleural effusion -on supplementary oxygen by nasal cannula, BIPAP/CPAP at night -admission CT scan 1. Persistent cardiomegaly and bilateral pleural effusions right greater than left 2. Dependent airspace opacities, likely atelectatic 3. Persistent mild mediastinal and upper abdominal lymphadenopathy 4. Nodular hepatic contour -Persistent lower leg edema, add Lasix 40 mg IV 1 dose today, then Lasix 40mg at PM - tomorrow, continue Lasix 80 mg twice daily chronic kidney disease stage III -baseline creatinine of around in the past actually around 2 or higher in the past, admission creatinine 1.6 stable 1.6 Hypertension, -on Toprol-XL, hydralazine. Hypothyroidism -TSH 5.5 but normal free T4 and normal total T4 -Continue home Synthroid for now repeat TFT as outpatient in 1 month Hyperlipidemia -Continue statin. Depression -Continue fluoxetine Full Code Disposition Pending anticipate d/c to home with home health on (upon completion of 1 week course of Meropenem) Admission and Anticipated Discharge Date Admission Date: May 17, 2020 Subjective ff up for Pseudomonas UTI seen resting in bed, comfortable alert, conversant, oriented x 3 states he feels fine overall answers all questions appropriately reports few seconds of dizziness this AM, no other associated symptoms no other symptoms Review of Systems Review of Systems: All systems reviewed & are unremarkable except as noted in Subjective Physical Exam Physical Exam: General- oriented x 3, not in distress, speaks in sentences with no effort or accessory muscle use Eyes- anicteric Neck- no JVD Lungs- faint wheeze on the left base clear on the right monitor Heart- normal rate, regular rhythm; no murmurs Abdomen- normal bowel sounds, nondistended, soft, nontender Extremities- mild pretibial edema, no calf tenderness no erythema/warmth/tenderness Neuro- alert, oriented x 3; no gross focal neurologic deficits Skin- warm & dry Results & Data Results & Data ([facility]) Vital Signs (Past 12 Hours) Vital Signs Temp Pulse Pulse Resp BP BP Pulse Ox 05/24/20 15:35 36.6 C 60 18 132/61 99 05/24/20 12:52 54 L 104/64 05/24/20 07:54 37.1 C 55 L 18 110/52 L 100 Laboratory Results Laboratory Results - last 24 hr 05/23/20 05/23/20 05/24/20 17:08 20:13 06:24 Sodium 138 Potassium 4.2 Chloride 102 Carbon Dioxide 33 H Anion Gap 4.0 BUN 28 H Creatinine 1.59 H Est Cr Clr Drug Dosing 72.6 Est GFR ( Amer) 51.7 Est GFR (Non-Af Amer) 44.6 BUN/Creatinine Ratio 17.4 Glucose 161 H POC Glucose 179 H 169 H Calcium 8.8 Magnesium 1.9 05/24/20 05/24/20 05/24/20 08:24 12:14 17:07 Sodium Potassium Chloride Carbon Dioxide Anion Gap BUN Creatinine Est Cr Clr Drug Dosing Est GFR ( Amer) Est GFR (Non-Af Amer) BUN/Creatinine Ratio Glucose POC Glucose 176 H 206 H 217 H Calcium Magnesium
[2020-05-24] MEDS ORDERED: FUROSEMIDE 40 MG TAB PO ONE (18:00)
[2020-05-24] MEDS: ATORVASTATIN 10 MG TAB PO SCH (20:50)
[2020-05-24] MEDS: INSULIN GLARGINE SOLOSTAR 100 UNITS/ML 3 ML PEN SC SCH (20:58)
[2020-05-25] MEDS: MEROPENEM 500 MG in SYRINGE 0 ML IV SCH ×5 (00:23→23:57)
[2020-05-25] MEDS: LEVOTHYROXINE SODIUM 200 MCG TABLET PO SCH (05:32)
[2020-05-25] MEDS: LEVOTHYROXINE SODIUM 25 MCG TABLET PO SCH (05:32)
[2020-05-25 06:03] LABS: INR 2.6 (0.9-1.1); Prothrombin Time 26.3 Seconds (9.0-12.0)
[2020-05-25 06:22] LABS: BUN Creatinine Ratio 17.9 (10-20); Calcium 8.4 mg/dl (8.5-10.1); Creatinine Clr Calc Pharmacy 74.7 ml/min; Est GFR (African American) 53.3
[2020-05-25] MEDS: UMECLIDINIUM/VILANTEROL 62.5/25MCG 7 PUFFS/INHALER INH SCH (08:36)
[2020-05-25] MEDS: FLUTICASONE PROPIONATE NA SPR 16 GM BTL SCH (08:37)
[2020-05-25] MEDS: METOPROLOL SUCC 25MG EXT REL TAB PO SCH (08:37)
[2020-05-25] MEDS: hydrALAZINE TAB 50 MG TAB PO SCH ×4 (08:37→20:16)
[2020-05-25] MEDS: GABAPENTIN 100 MG CAP PO SCH ×3 (08:37→20:15)
[2020-05-25] MEDS: DOCUSATE SODIUM/SENNA 50/8.6MG TAB PO SCH (08:38)
[2020-05-25] MEDS: FLUoxetine HCL 20 MG CAP PO SCH (08:38)
[2020-05-25] MEDS: FLUoxetine HCL 10 MG CAP PO SCH (08:38)
[2020-05-25] MEDS: NYSTATIN POWDER 15GM BTL EXT SCH ×2 (08:38→20:14)
[2020-05-25] MEDS: PANTOprazole 40 MG TAB PO SCH ×2 (08:38→20:15)
[2020-05-25] MEDS: INSULIN ASPART 100 UNITS/ML 3 ML PEN SQ SCH ×4 (08:43→22:32)
[2020-05-25] MEDS: WARFARIN SOD 5 MG TAB PO SCH (17:23)
[2020-05-25] MEDS: ATORVASTATIN 10 MG TAB PO SCH (20:16)
--- NOTE | 2020-05-25 21:09 | Hospitalist Progress Note ---
Date of Service delayed entry date of service noted below May 25, 2020 Assessment & Plan (1) Hematemesis: Acute upper GI bleed was initially suspected and ruled out History of Anemia Per Dr. Rai Campo's notes -as per 05/17/2020 AM, ED notes: "64 yr old male with very extensive PMH including afib on Coumadin and repeat hospitalizations (last 03/2020 for UTI/COPD flare). Arrives for altered mental status and vomiting blood. AMS seems suspicious for hypoglycemia and he seems more awake/with it after 1/2 amp D50 here. He clearly was vomiting blood prior to arrival as in oropharynx and dried on chin. He states bloody nose at some point but cant remember if before or after vomiting and exam without significant blood in nares at this time. Given steroid use history and on coumadin urgently given Protonix IV. He does not appear to have history varices that I can see and thus will hold on octreotide. Vitals stable and he is stable. CT head completed given earlier AMS and on Coumadin which fortunately was negative. CXR concerning for congestive failure though he is not short of breath and only on 3 L NC at the moment." -05/18/2020: patient is status post Upper endoscopy on 05/18/2020 .As per GI communication note "S/P EGD w/ gastritis. No evidence of gross GI bleeding or high risk lesions during examination. No GI contraindication to advancement of diet as tolerated. No GI contraindication to resuming Coumadin. Would recommended PPI twice daily for 6 weeks. No plan for repeat endoscopic evaluation. Perhaps he had nose bleed and coughed up blood as previously suggested." -Hemoglobin remained stable repeat CBC on ff up with PCP in 1 week Diabetes Mellitus Type 2 with [facility] current use of insulin with hypoglycemia on admission, metabolic encephalopathy on admission likely from hypoglycemia -HbA1c on admission of 5.3 which is very tight glycemic control (patient reports home dose shorting dosing of 15 units TID with meals, and 40 units long acting insulin qhs) -possibly that patient may be on too much insulin at home -continue sliding scale insulin and reduce Insulin Lantus to 10 units at night UTI, Pseudomonas Urine culture positive for Pseudomonas Meropenem day #5/7, tolerating antibiotic well Mental status improving more alert, conversant Continue Meropenem until to complete 7 day course (2) Morbid obesity: with BMI 53.9 -has been bed bound at home since February 2020 return home from physical rehab -PT/OT assessments in this admission, case management consult -repositioning of patient on the bed History of paroxysmal ventricular tachycardia History of atrial flutter Chronic anticoagulation with coumadin -Continue home dose amiodarone INR 2.6 continue coumadin ff up with [facility] Chronic respiratory failure with hypoxia, hypercarbia and obstructive sleep apnea on BiPAP and chronic obstructive pulmonary disease. Chronic diastolic congestive heart failure. Right pleural effusion -on supplementary oxygen by nasal cannula, BIPAP/CPAP at night -admission CT scan 1. Persistent cardiomegaly and bilateral pleural effusions right greater than left 2. Dependent airspace opacities, likely atelectatic 3. Persistent mild mediastinal and upper abdominal lymphadenopathy 4. Nodular hepatic contour -hold lasix in light of marginal BP continue Lasix 80 mg twice daily tomorrow if BP is improved chronic kidney disease stage III -baseline creatinine of around in the past actually around 2 or higher in the past, admission creatinine 1.6 stable 1.6 Hypertension, -on Toprol-XL, hydralazine. Hypothyroidism -TSH 5.5 but normal free T4 and normal total T4 -Continue home Synthroid for now repeat TFT as outpatient in 1 month Hyperlipidemia -Continue statin. Depression -Continue fluoxetine Full Code Disposition Pending anticipate d/c to home with home health on (upon completion of 1 week course of Meropenem) Admission and Anticipated Discharge Date Admission Date: May 17, 2020 Subjective ff up for Pseudomonas UTI seen resting in bed, comfortable oriented x 3 answers all questions appropriately states he feels fine overall no abdominal pain, nausea, vomiting, chills no dyspnea, chest pain no other symptoms Review of Systems Review of Systems: All systems reviewed & are unremarkable except as noted in Subjective Physical Exam Physical Exam: General- oriented x 3, not in distress, speaks in sentences with no effort or accessory muscle use Eyes- anicteric Neck- no JVD Lungs- clear breath sounds bilaterally,no wheezing Heart- normal rate, regular rhythm; no murmurs Abdomen- normal bowel sounds, nondistended, soft, nontender Extremities- mild pretibial edema-- Improved, no calf tenderness Neuro- alert, oriented x 3; no gross focal neurologic deficits Skin- warm & dry Results & Data Results & Data ([facility]) Vital Signs (Past 12 Hours) Vital Signs Temp Pulse Resp BP BP Pulse Ox 05/25/20 15:19 36.4 C L 59 L 16 102/64 99 05/25/20 13:12 60 113/75 95
[2020-05-25] MEDS: INSULIN GLARGINE SOLOSTAR 100 UNITS/ML 3 ML PEN SC SCH (22:30)
[2020-05-25] MEDS: ACETAMINOPHEN 325 MG TAB PO PRN (23:57)
[2020-05-26] MEDS: MEROPENEM 500 MG in SYRINGE 0 ML IV SCH ×4 (05:44→23:41)
[2020-05-26] MEDS: LEVOTHYROXINE SODIUM 200 MCG TABLET PO SCH (05:44)
[2020-05-26] MEDS: LEVOTHYROXINE SODIUM 25 MCG TABLET PO SCH (05:44)
[2020-05-26 06:58] LABS: BUN Creatinine Ratio 18.1 (10-20); Calcium 8.6 mg/dl (8.5-10.1); Creatinine Clr Calc Pharmacy 81.1 ml/min; Est GFR (African American) 58.7; Est GFR (Non-African American) 50.7
[2020-05-26] MEDS: INSULIN ASPART 100 UNITS/ML 3 ML PEN SQ SCH ×4 (09:31→21:07)
[2020-05-26] MEDS: FLUTICASONE PROPIONATE NA SPR 16 GM BTL SCH (09:33)
[2020-05-26] MEDS: DOCUSATE SODIUM/SENNA 50/8.6MG TAB PO SCH (09:33)
[2020-05-26] MEDS: METOPROLOL SUCC 25MG EXT REL TAB PO SCH (09:33)
[2020-05-26] MEDS: FLUoxetine HCL 10 MG CAP PO SCH (09:33)
[2020-05-26] MEDS: hydrALAZINE TAB 50 MG TAB PO SCH ×4 (09:34→21:03)
[2020-05-26] MEDS: GABAPENTIN 100 MG CAP PO SCH ×3 (09:34→21:02)
[2020-05-26] MEDS: PANTOprazole 40 MG TAB PO SCH ×2 (09:34→21:01)
[2020-05-26] MEDS: UMECLIDINIUM/VILANTEROL 62.5/25MCG 7 PUFFS/INHALER INH SCH (09:34)
[2020-05-26] MEDS: NYSTATIN POWDER 15GM BTL EXT SCH ×2 (09:35→21:02)
[2020-05-26] MEDS: FLUoxetine HCL 20 MG CAP PO SCH (09:35)
--- NOTE | 2020-05-26 17:21 | Hospitalist Progress Note ---
Date of Service May 26, 2020 Assessment & Plan (1) Hematemesis: Acute upper GI bleed was initially suspected and ruled out History of Anemia Per Dr. Rai Campo's notes -as per 05/17/2020 AM, ED notes: "64 yr old male with very extensive PMH including afib on Coumadin and repeat hospitalizations (last 03/2020 for UTI/COPD flare). Arrives for altered mental status and vomiting blood. AMS seems suspicious for hypoglycemia and he seems more awake/with it after 1/2 amp D50 here. He clearly was vomiting blood prior to arrival as in oropharynx and dried on chin. He states bloody nose at some point but cant remember if before or after vomiting and exam without significant blood in nares at this time. Given steroid use history and on coumadin urgently given Protonix IV. He does not appear to have history varices that I can see and thus will hold on octreotide. Vitals stable and he is stable. CT head completed given earlier AMS and on Coumadin which fortunately was negative. CXR concerning for congestive failure though he is not short of breath and only on 3 L NC at the moment." -05/18/2020: patient is status post Upper endoscopy on 05/18/2020 .As per GI communication note "S/P EGD w/ gastritis. No evidence of gross GI bleeding or high risk lesions during examination. No GI contraindication to advancement of diet as tolerated. No GI contraindication to resuming Coumadin. Would recommended PPI twice daily for 6 weeks. No plan for repeat endoscopic evaluati on. Perhaps he had nose bleed and coughed up blood as previously suggested." -Hemoglobin remained stable repeat CBC on ff up with PCP in 1 week Diabetes Mellitus Type 2 with [facility] current use of insulin with hypoglycemia on admission, metabolic encephalopathy on admission likely from hypoglycemia -HbA1c on admission of 5.3 which is very tight glycemic control (patient reports home dose shorting dosing of 15 units TID with meals, and 40 units long acting insulin qhs) -possibly that patient may be on too much insulin at home -continue sliding scale insulin and reduce Insulin Lantus to 10 units at night UTI, Pseudomonas Urine culture positive for Pseudomonas Meropenem day #6 /7, tolerating antibiotic well Mental status improving more alert, conversant Continue Meropenem til Tomorrow / to complete 7 day course (2) Morbid obesity: with BMI 53.9 -has been bed bound at home since February 2020 return home from physical rehab -PT/OT assessments in this admission, case management consult -repositioning of patient on the bed History of paroxysmal ventricular tachycardia History of atrial flutter Chronic anticoagulation with coumadin -Continue home dose amiodarone INR 2.6 continue coumadin ff up with [facility] Chronic respiratory failure with hypoxia, hypercarbia and obstructive sleep apnea on BiPAP and chronic obstructive pulmonary disease. Chronic diastolic congestive heart failure. Right pleural effusion -on supplementary oxygen by nasal cannula, BIPAP/CPAP at night -admission CT scan 1. Persistent cardiomegaly and bilateral pleural effusions right greater than left 2. Dependent airspace opacities, likely atelectatic 3. Persistent mild mediastinal and upper abdominal lymphadenopathy 4. Nodular hepatic contour -hold lasix in light of borderline low BP continue Lasix 80 mg twice daily tomorrow if BP is improved chronic kidney disease stage III -baseline creatinine of around in the past actually around 2 or higher in the past, admission creatinine 1.6 stable 1.6 Hypertension, -on Toprol-XL, hydralazine. Hypothyroidism -TSH 5.5 but normal free T4 and normal total T4 -Continue home Synthroid for now repeat TFT as outpatient in 1 month Hyperlipidemia -Continue statin. Depression -Continue fluoxetine Full Code Disposition Pending anticipate d/c to home with home health on 05/27/20 (upon completion of 1 week course of Meropenem) Admission and Anticipated Discharge Date Admission Date: May 17, 2020 Subjective feels fine offers no new complain no fever or chills no further episode of hematemesis Review of Systems Review of Systems: All systems reviewed & are unremarkable except as noted in HPI & below Physical Exam Constitutional: WD/WN, vitals as above Eyes: PERRL, conjunctivae normal, anicteric sclerae ENMT: external ear and nose normal, oropharynx normal Neck: trachea midline, no thyromegaly Respiratory: normal respiratory effort, lungs clear to auscultation Cardiovascular: RRR, no murmur, no edema Gastrointestinal (Abdomen): normal bowel sounds, soft, nontender, no hepatosp lenomegaly Musculoskeletal: no cyanosis or clubbing, extremities motor strength 5/5 Neurologic: PERRL, EOMI, accommodation nl, no face palsy, no dysarthria Psychiatric: A+Ox3, euthymic affect Results & Data Results & Data ([facility]) Vital Signs (Past 12 Hours) Vital Signs Temp Pulse Resp BP BP Pulse Ox 05/26/20 15:38 36.8 C 59 L 18 111/52 L 97 05/26/20 12:55 71 110/70 05/26/20 08:47 36.8 C 63 16 129/64 98
[2020-05-26] MEDS: WARFARIN SOD 5 MG TAB PO SCH (17:36)
[2020-05-26] MEDS: ATORVASTATIN 10 MG TAB PO SCH (21:01)
[2020-05-26] MEDS: INSULIN GLARGINE SOLOSTAR 100 UNITS/ML 3 ML PEN SC SCH (21:06)
[2020-05-27 06:05] LABS: Prothrombin Time 30.3 Seconds (9.0-12.0)
[2020-05-27] MEDS: MEROPENEM 500 MG in SYRINGE 0 ML IV SCH ×2 (06:18→11:16)
[2020-05-27] MEDS: LEVOTHYROXINE SODIUM 25 MCG TABLET PO SCH (06:18)
[2020-05-27] MEDS: LEVOTHYROXINE SODIUM 200 MCG TABLET PO SCH (06:19)
[2020-05-27 06:22] LABS: BUN Creatinine Ratio 18.2 (10-20); Calcium 8.6 mg/dl (8.5-10.1); Creatinine Clr Calc Pharmacy 80.5 ml/min; Est GFR (African American) 58.2; Est GFR (Non-African American) 50.2; Potassium 4.1 mmol/L (3.5-5.1)
[2020-05-27] MEDS: DOCUSATE SODIUM/SENNA 50/8.6MG TAB PO SCH (07:56)
[2020-05-27] MEDS: NYSTATIN POWDER 15GM BTL EXT SCH (07:56)
[2020-05-27] MEDS: FLUoxetine HCL 10 MG CAP PO SCH (07:57)
[2020-05-27] MEDS: PANTOprazole 40 MG TAB PO SCH (07:57)
[2020-05-27] MEDS: METOPROLOL SUCC 25MG EXT REL TAB PO SCH (07:57)
[2020-05-27] MEDS: GABAPENTIN 100 MG CAP PO SCH ×2 (07:57→12:40)
[2020-05-27] MEDS: hydrALAZINE TAB 50 MG TAB PO SCH ×3 (07:57→16:30)
[2020-05-27] MEDS: FLUoxetine HCL 20 MG CAP PO SCH (07:57)
[2020-05-27] MEDS: FLUTICASONE PROPIONATE NA SPR 16 GM BTL SCH (07:58)
[2020-05-27] MEDS: UMECLIDINIUM/VILANTEROL 62.5/25MCG 7 PUFFS/INHALER INH SCH (07:58)
[2020-05-27] MEDS: INSULIN ASPART 100 UNITS/ML 3 ML PEN SQ SCH ×2 (08:33→12:40)
--- NOTE | 2020-05-27 13:59 | Discharge Summary ---
Date of Service May 27, 2020 Admission HPI Per Admitting Provider DICTATED BY: Jamel Ingram MD DATE OF ADMISSION: 05/17/2020 CHIEF COMPLAINT: Hematemesis and confusion. HISTORY OF PRESENT ILLNESS: This is a 64-year-old male with past medical history significant for morbid obesity and chronic respiratory failure with hypoxia and hypercarbia, obstructive sleep apnea on BiPAP; chronic diastolic failure, COPD, insulin-dependent type 2 diabetes, hypothyroidism, bilateral lymphedema, chronic kidney disease stage III, bedbound, history of atrial flutter, who lives with his brother, comes in because of hematemesis and shortness of breath. The patient says around 2:30 a.m., he was having blood coming out from his mouth and also he was getting short of breath, it was not getting better, so he called ambulance and brought in here and he came in, he seemed to be confused, but his sugars were low in the 60s, when sugars improved his mental status was back to his baseline. Denies any chest pain. Currently, shortness of breath improved. He is feeling better. Denies any headache, no blurred vision, no earache, no runny nose, no sore throat, no nausea, no vomiting. His said his appetite is down since last couple of days. No abdominal pain. Denies any diarrhea, has constipation. He does not know whether he has blood in stools or black stool, brother generally notices it, but brother did not tell him, so he does not think he has any bleeding from his bowel movement, normal bladder movements. Currently, resting comfortably and hemodynamically stable. Principal Diagnosis Acute upper gastrointestinal bleed ruled out UTI -Pseudomonas /completed IV antibiotic -Meropenem Discharge Exam Constitutional WD/WN, vitals as above Eyes PERRL, conjunctivae normal, anicteric sclerae ENMT external ear and nose normal, oropharynx normal Neck trachea midline, no thyromegaly Respiratory normal respiratory effort, lungs clear to auscultation Cardiovascular Rate/Rhythm: regular rate and regular rhythm Extremities: + edema (bilateral pitting edema ) Gastrointestinal (Abdomen) normal bowel sounds, soft, nontender, no hepatosplenomegaly Musculoskeletal no cyanosis or clubbing, extremities motor strength 5/5 Skin + ecchymosis (bilateral lower ext ) and + erythema Neurologic PERRL, EOMI, accommodation nl, no face palsy, no dysarthria Psychiatric A+Ox3, euthymic affect Discharge Data Allergies Allergy/AdvReac Type Severity Reaction Status Date / Time pollen extracts Allergy Mild sneezing/watery Verified 05/17/20 05:58 eyes Consultations 05/17/20 06:04 ED Decision to Admit Stat 05/17/20 09:06 Consult Case Management - Discharge Planning Routine Consult Gastroenterology Routine Procedures Performed Operation Date: 05/18/20 08:30 Actual Procedures p Esophagogastroduodenoscopy - Vero Quispe MD Ordered Studies 05/17/20 05:23 CT head/brain wo con Stat 05/17/20 06:53 CT chest wo con Stat Hospital Course (1) Hematemesis: Acute upper GI bleed was initially suspected and ruled out History of Anemia Per Dr. Rai Campo's notes -as per 05/17/2020 AM, ED notes: "64 yr old male with very extensive PMH including afib on Coumadin and repeat hospitalizations (last 03/2020 for UTI/COPD flare). Arrives for altered mental status and vomiting blood. AMS seems suspicious for hypoglycemia and he seems more awake/with it after 1/2 amp D50 here. He clearly was vomiting blood prior to arrival as in oropharynx and dried on chin. He states bloody nose at some point but cant remember if before or after vomiting and exam without significant blood in nares at this time. Given steroid use history and on coumadin urgently given Protonix IV. He does not appear to have history varices that I can see and thus will hold on octreotide. Vitals stable and he is stable. CT head completed given earlier AMS and on Coumadin which fortunately was negative. CXR concerning for congestive failure though he is not short of breath and only on 3 L NC at the moment." -05/18/2020: patient is status post Upper endoscopy on 05/18/2020 .As per GI communication note "S/P EGD w/ gastritis. No evidence of gross GI bleeding or high risk lesions during examination. No GI contraindication to advancement of diet as tolerated. No GI contraindication to resuming Coumadin. Would recommended PPI twice daily for 6 weeks. No plan for repeat endoscopic evaluation. 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 with hypoglycemia on admission, metabolic encephalopathy on admission likely from hypoglycemia -HbA1c on admission of 5.3 which is very tight glycemic control (patient reports home dose shorting dosing of 15 units TID with meals, and 40 units long acting insulin qhs) -possibly that patient may be on too much insulin at home -continue sliding scale insulin and reduce Insulin Lantus to 10 units at night UTI, Pseudomonas Urine culture positive for Pseudomonas Meropenem day #, completed IV abx course Mental status at baseline stable to be discharged home today (2) Morbid obesity: with BMI 53.9 -has been bed bound at home since February 2020 return home from physical rehab -PT/OT assessments in this admission, case management consult -repositioning of patient on the bed History of paroxysmal ventricular tachycardia History of atrial flutter Chronic anticoagulation with coumadin -Continue home dose amiodarone INR theraputic continue Coumadin ff up with Coumadin Clinic Chronic respiratory failure with hypoxia, hypercarbia and obstructive sleep apnea on BiPAP and chronic obstructive pulmonary disease. Chronic diastolic congestive heart failure. Right pleural effusion -on supplementary oxygen by nasal cannula, BIPAP/CPAP at night -admission CT scan 1. Persistent cardiomegaly and bilateral pleural effusions right greater than left 2. Dependent airspace opacities, likely atelectatic 3. Persistent mild mediastinal and upper abdominal lymphadenopathy 4. Nodular hepatic contour Lasix resumed on home dose audible wheeze noted , no cough or sob pt will be given NEb tx before discharged home cont home Inhalers Chronic bilat lower ext edema /venous stasis changes : cont on Lasix pt is asked to keep limb elevated . chronic kidney disease stage III -baseline creatinine of around in the past actually around 2 or higher in the past, admission creatinine 1.6 stable 1.6 Hypertension, -on Toprol-XL, hydralazine. Hypothyroidism -TSH 5.5 but normal free T4 and normal total T4 -Continue home Synthroid for now repeat TFT as outpatient in 1 month Hyperlipidemia -Continue statin. Depression -Continue fluoxetine Full Code Disposition Discharged home today Total Time Total Time Spent Total Time Spent (In Minutes): 35 mins Total Time Includes: Examination of the Patient, Discharge Planning and Medication Reconciliation Discharge Plan Discharge Items Patient Disposition: Home - Home Health Services Reason For Visit: SOB AND VOMITING BLOOD Discharge Diagnosis: Acute upper gastrointestinal bleed ruled out UTI -Pseudomonas /completed IV antibiotic -Meropenem Activity: As commented below Activity Comment: Resume activity gradually as tolerated, fall precautions please Lifting: Wait until after follow-up appointment Driving/Machine Use: No driving Non-emergency contact: Primary Care Provider Call non-emergency contact if: you have any medication questions, your symptoms worsen and you have a fever Follow-up/Referrals: Susanne Macias DO [Primary Care Provider] - 05/26/20 11:00 am (Date & Time 05/26/2020 11:00 AM Provider Susanne Macias DO [facility] ) Diet: Carb Consistent or DM2 and Heart Healthy Addtl Attending Provider Instructions: Please review your new medication list and follow instructions carefully. Call primary care physician or return to the ER immediately if with worsening of symptoms, including Black or bloody stools, nausea or vomiting, abdominal pain, weakness, shortness of breath, increasing leg swelling, chest pain, Fevers or chills, confusion. Lantus insulin dose reduced to 10 Unit before dinner Pending Studies at Discharge: Yes Studies:: Repeat bloodwork including CBC and BMP on ff up visit with PCP repeat TSH level in 1 month Stand-Alone Forms: My [facility], Smoking Cessation Medications and DC Order Prescriptions: New Lantus Solostar U-100 Insulin 100 unit/mL (3 mL) Insulin Pen 10 unit SC HS Qty: 3 RF: 0 Continued pantoprazole 40 mg tablet,delayed release (DR/EC) 40 mg PO BID RF: 0 atorvastatin 10 mg tablet 10 mg PO HS RF: 0 levothyroxine 25 mcg tablet 25 mcg PO QAM RF: 0 levothyroxine 200 mcg tablet 200 mcg PO QAM RF: 0 metoprolol succinate 25 mg tablet extended release 24 hr 25 mg PO QAM RF: 0 fluoxetine 10 mg Tablet 10 mg PO DAILY RF: 0 insulin aspart U-100 [Novolog U-100 Insulin aspart] 100 unit/mL Solution 1 sliding scale dose SUBCUT TID RF: 0 fluoxetine 20 mg Tablet 20 mg PO DAILY RF: 0 hydralazine 50 mg Tablet 50 mg PO QID RF: 0 albuterol sulfate 90 mcg/actuation Hfa Aerosol Inhaler 2 puff INHALATION QID PRN (Reason: Shortness Of Breath Or Wheezing) RF: 0 Anoro Ellipta 62.5-25 mcg/actuation Blister With Device 1 ea inhalation DAILY Qty: 14 RF: 0 furosemide 80 mg tablet 80 mg PO BID RF: 0 gabapentin 100 mg capsule 100 mg PO TID RF: 0 warfarin 1 mg tablet 1 - 2 mg PO DAILY RF: 0 linaclotide 145 mcg Capsule 145 mcg PO QAM RF: 0 fluticasone propionate 50 mcg/actuation [place],Suspension 2 spray INTRANASAL DAILY RF: 0 nystatin 100,000 unit/gram Powder 1 applic TOPICAL BID RF: 0 Calmoseptine 0.44-20.6 % Ointment 1 applic TOPICAL TID PRN (Reason: to buttocks) RF: 0 multivit,stress formula-zinc Tablet 1 tab PO DAILY RF: 0 tramadol 50 mg Tablet 50 mg PO Q4 PRN (Reason: Pain) RF: 0 tramadol 50 mg Tablet 50 mg PO BID RF: 0 Discontinued Lantus Solostar U-100 Insulin 100 unit/mL (3 mL) insulin pen 40 unit SUBCUT HS RF: 0 Discharge Orders: Discharge Order (Routine); Ordered 05/27/20 Ordered By: Herlinda Mccloud/Other Patient Handouts: High Blood Sugar (Hyperglycemia), Hypoglycemia (Low Blood Sugar) Admission Data Admit Date/Time: 05/17/20 06:53 Attending Provider: Herlinda Gannon Admit Provider: Jamel Ingram Primary Care Provider: Susanne Macias Other Providers: Jamel Ingram ; Casimiro [place] ; Rai Campo ; Sanjay Rocha Other Interventions: Discharge Summary Assessment (RN) Last Done: 05/27/20 10:04
[2020-05-27] MEDS ORDERED: ALBUT/IPRATROP 3MG/0.5MG NEB 3 ML VIAL NEB STA (15:06)
[2020-05-27] MEDS: WARFARIN SOD 5 MG TAB PO SCH (16:30)
== END 2020-05-27 17:44 | disposition home health service (06) | DRG 637 ==
LOC: ED 05:17 → 1E 06:53 → SUATTDRO 06:53 → 1E 07:47 → 3N 05-18 16:44

== ENCOUNTER 2020-06-12 18:41 | Inpatient (IN) ==
--- NOTE | 2020-06-12 19:01 | Emergency Department Note ---
Impression & Plan SOB (shortness of breath), Anemia, Acute confusion, CHF (congestive heart failure), ELVI (acute kidney injury) ED Provider Note NAME: CROW BAUER AGE: 64 SEX: M : 1955 ARRIVES VIA: Ambulance INFORMANT: [Patient][ems] ED PROVIDER(S): [Greg Torres MD] CHIEF COMPLAINT: Illness HISTORY OF PRESENT ILLNESS: The patient is a 64-year-old male who presents to the ER with about 3 or 4 days of shortness of breath. Today, his brother thought he seemed more confused. The ambulance was called. Patient was on BiPAP when the ambulance arrived. He had a low O2 saturation of around 89% on 4 L, the patient typically wears 2.5 L on a daily basis. The patient is overweight, he has minimal activity on his own. He admits he has had a decreased appetite lately. He has not been coughing, he has not had fever or chills. No vomiting or diarrhea. No urinary complaints. Patient states in general, he just does not feel well. He does state he has had no known COVID-19 exposures. REVIEW OF SYSTEMS: See HPI for pertinent positives and negatives. A total of ten systems were reviewed and were otherwise negative. PMHx/PSHx: See Below SOCIAL HISTORY: See Below. PHYSICAL EXAM: GENERAL: Patient is in no acute distress. His clothes are dirty, there is dried food on his adams. HEENT: No acute trauma, normocephalic atraumatic, mucous membranes dry, no nasal congestion, no scleral icterus. NECK: No stridor, no adenopathy, no meningismus, trachea is midline. LUNGS: Clear to auscultation bilaterally, no wheeze, no rhonchi, breath sounds equal. No respiratory distress. HEART: Heart tones are distant and cannot be assessed. He does have a regular rate and rhythm. Strong bilateral radial pulses noted. ABDOMEN: Soft, nontender, bowel sounds positive, no hernias, no peritonitis. Obese. EXTREMITIES: No cyanosis. He does have moderate bilateral pedal edema. There is contusion about the right hand and wrist. There is no bony discomfort with p alpation about the right hand or wrist, no gross deformity. NEUROLOGIC: Oriented x 3, no acute motor or sensory deficits, no focal weakness. SKIN: No rash, no jaundice, no diaphoresis. DIFFERENTIAL DIAGNOSIS: Infection, dehydration, metabolic abnormality, COVID-19, influenza, CHF, pneumonia, renal failure, hypo/hyperglycemia, electrolyte disturbance, anemia, hypoxia, cardiac sources, intracerebral event, toxicologic, neurologic, as well as other pathologies. EMERGENCY DEPARTMENT COURSE/PROCEDURES: ECG: Indication was weakness. The ECG shows what appears to be a sinus bradycardia with a first-degree AV block. Rate is 50. There is a left bundle branch block. There is diffuse low voltage and some baseline artifact. There is a potential old inferior and lateral infarct. The QTc is 424. There is no ST elevation, no PVCs. Compared to an ECG from 24 May 2020, there is no significant change Continuous Cardiac Monitoring: An order was placed for continuous cardiac monitoring. The monitor shows a rate of 47 with sinus bradycardia with a first- degree AV block. Critical Care Note: I have personally spent 43 minutes of critical care time in the direct management of this patient. This includes bedside care, interpretation of diagnostic studies, and testing, discussion with consultants, patient, and family members, and other required patient management activities. This 43 minutes is in excess of all separately billable procedures. MEDICAL DECISION MAKING: There is no leukocytosis. The patient is anemic. He has a history of the same but his value today is lower than baseline, possibly delusional. There was a normal platelet count. INR was 3.3, he is slightly over anticoagulated. Potassium mildly high at 5.2. There was evidence for some acute kidney injury with a creatinine of 3.24. This creatinine value is above his baseline of about 1.5-1.6. No liver enzyme elevation. The patient appeared to be in a euthyroid state. Chest x-ray shows cardiomegaly and fluid overload/CHF. The film looks more fluid overloaded than previous films. BNP is elevated at over 12,000, consistent with CHF and fluid overload. Urinalysis does not show evidence for infection, some contamination was seen. Covid testing was negative. Flu testing was negative. Brain CT shows no acute bleed or mass-effect. The patient presents with shortness of breath and confusion. He was found to be in heart failure with some acute kidney injury. He is anemic, possibly delusional from fluid overload. He is in no condition for discharge home. Hospitalization is warranted. Patient was given a DuoNeb. He was given IV Lasix, 80 mg. I did speak to the patient, I spoke with case management. The on-call hospitalist has been consulted. Past Med/Surg History Medical History Anemia Chronic diastolic heart failure COPD (chronic obstructive pulmonary disease) inhalers daily/prn and oxygen 2L n/c Diabetes mellitus, type 2 Elevated troponin I level Graves disease History of gastric ulcer Hyperlipidemia Hypertension Hypothyroidism Hypoxia Left bundle branch block chronic Morbid obesity with BMI of 50.0-59.9, adult Obesity hypoventilation syndrome On home oxygen therapy 2L N/C at all times SAFIA (obstructive sleep apnea) cpap--2L oxygen Surgical History History of angioplasty 2003 @ [facility] [place]--no stents History of colonoscopy History of endoscopic sinus surgery History of esophagogastroduodenoscopy (EGD) History of tooth extraction History of wisdom tooth extraction S/P correction of deviated nasal septum Family History Mother Diabetes Hypertension Brother , dies at 44 yo from [place] Heart disease Other No family history of adverse response to anesthesia Social History Smoking Status: Former smoker Tobacco Type: Cigarettes Years Smoked: 60; Cigarettes Per Day: 4; Second Hand Exposure: Yes; Hx Alcohol Use: No Hx Substance Use: No Preferred Language: Maori Communication Ability: Effective 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 Beliefs That Will Affect Care: None marital status: Single Current Living Situation: Family Current Living Situation Comment: Resides with brotherLonnie current occupational status: unemployed Feels Safe at Home: Yes Assistive Devices: Oxygen - Continuous Allergies Allergies Allergy/AdvReac Type Severity Reaction Status Date / Time pollen extracts Allergy Mild sneezing/watery Verified 06/12/20 21:21 eyes Home Meds Home Medications Medication Instructions Recorded Confirmed atorvastatin 10 mg PO HS 10/24/18 06/12/20 levothyroxine 25 mcg PO QAM 10/24/18 06/12/20 levothyroxine 200 mcg PO QAM 10/24/18 06/12/20 metoprolol succinate 25 mg PO QAM 10/24/18 06/12/20 pantoprazole 40 mg tablet,delayed 40 mg PO BID 02/11/19 06/12/20 release albuterol sulfate 2 puff INHALATION QID 11/29/19 06/12/20 fluoxetine 10 mg PO DAILY 11/29/19 06/12/20 hydralazine 50 mg PO QID 11/29/19 06/12/20 insulin aspart U-100 [Novolog 1 sliding scale dose SUBCUT TID 11/29/19 06/12/20 U-100 Insulin aspart] Calmoseptine 1 applic TOPICAL TID PRN 05/17/20 06/12/20 fluticasone propionate 2 spray INTRANASAL DAILY 05/17/20 06/12/20 furosemide 80 mg PO BID 05/17/20 06/12/20 gabapentin 100 mg PO TID 05/17/20 06/12/20 linaclotide 145 mcg PO QAM 05/17/20 06/12/20 nystatin 1 applic TOPICAL BID 05/17/20 06/12/20 tramadol 50 mg PO BID 05/17/20 06/12/20 tramadol 50 mg PO Q4 PRN 05/17/20 06/12/20 warfarin 1 - 2 mg PO DAILY 05/17/20 06/12/20 sodium chloride [Saline Nasal Mist] 1 spray INTRANASAL BID PRN 06/12/20 06/12/20 vitamin B [id number] cit 1 tab PO DAILY 06/12/20 06/12/20 Previous Rx's Medication Instructions Recorded Anoro Ellipta 1 ea INHALATION DAILY #14 ea 12/05/19 insulin glargine [Lantus Solostar 10 unit SC HS #3 ml 05/21/20 U-100 Insulin] Results & Data (ED) Vital Signs Vital Signs - 24 hr 06/12/20 18:54 06/12/20 19:05 06/12/20 19:58 Temperature 36.2 C L Temperature Source Oral Pulse Rate 49 L Pulse Rate [Right Finger] 46 L Respiratory Rate 22 17 Respiratory Effort / Characteristics Spontaneous Respiratory Depth Normal Normal Blood Pressure 129/71 Blood Pressure [Right Arm] 132/49 L Blood Pressure Mean 90 Blood Pressure Mean [Right Arm] 76 Blood Pressure Position Sitting Pulse Oximetry 89 L 100 Oxygen Delivery Method Room Air Nasal Cannula Nasal Cannula Nasal Cannula Oxygen Flow Rate 2 2 5 Sepsis Recent Fever Within 48 Hours No Sepsis New/Unexplained Change in Mental Status Yes Sepsis Action Taken by Nursing No Action Required Oxygen Flow Rate - Titration 2 Pulse Oximetry Post Tiitration 100 06/12/20 21:23 06/12/20 21:37 06/12/20 22:00 Temperature Temperature Source Pulse Rate Pulse Rate [Right Finger] 50 L 45 L 47 L Respiratory Rate 12 20 16 Respiratory Effort / Characteristics Non-Labored Spontaneous Respiratory Depth Blood Pressure Blood Pressure [Right Arm] 124/46 L 130/55 L Blood Pressure Mean Blood Pressure Mean [Right Arm] 72 80 Blood Pressure Position Pulse Oximetry 100 100 99 Oxygen Delivery Method Nasal Cannula Nasal Cannula Nasal Cannula Oxygen Flow Rate 5 5 3 Sepsis Recent Fever Within 48 Hours Sepsis New/Unexplained Change in Mental Status Sepsis Action Taken by Nursing Oxygen Flow Rate - Titration Pulse Oximetry Post Tiitration Home Medications Current Medication List: was personally reviewed by me Laboratory Data Attestation: I reviewed the patient's lab results. Result diagrams: 06/12/20 21:36 06/12/20 21:36 Lab Results 06/12/20 06/12/20 06/12/20 Range/Units 19:15 19:15 19:15 WBC (4.8-10.8) K/uL RBC (4.7-6.1) M/uL Hgb (14.0-18.0) g/dL Hct (42-52) % MCV (80-100) fL MCH (25-34) pg MCHC (32-36) g/dL RDW Std Deviation (36.4-46.3) fL RDW Coeff of Neena (11.5-14.5) % Plt Count (130-400) K/uL MPV (7.4-10.4) fL Immature Gran % (Auto) % Neut % (Auto) % Lymph % (Auto) % [place] % (Auto) % Eos % (Auto) % Baso % (Auto) % Neut # (Auto) (1.4-6.5) K/uL Lymph # (Auto) (1.2-3.4) K/uL [place] # (Auto) (0.11-0.59) K/uL Eos # (Auto) (0-0.5) K/uL Baso # (Auto) (0-0.2) K/uL Immature Gran # (Auto) (0.00-0.02) K/uL Hypochromasia Anisocytosis PT (9.0-12.0) Seconds INR (0.9-1.1) APTT (21.0-31.0) Seconds PTT Ratio Sodium (136-145) mmol/L Potassium (3.5-5.1) mmol/L Chloride (98-107) mmol/L Carbon Dioxide (21-32) mmol/L Anion Gap (3-11) BUN (7-18) mg/dl Creatinine (0.6-1.4) mg/dl Est Cr Clr Drug Dosing ml/min Est GFR ( Amer) Est GFR (Non-Af Amer) BUN/Creatinine Ratio (10-20) Glucose (70-99) mg/dl Lactate (0.4-2.0) mmol/L Calcium (8.5-10.1) mg/dl Magnesium (1.8-2.4) mg/dl Total Bilirubin (0.2-1) mg/dl AST (15-37) U/L ALT (12-78) U/L Alkaline Phosphatase (45-117) U/L Total Creatine Kinase (39-308) U/L Troponin I (0-0.045) ng/ml NT-Pro-B Natriuret Pep (0-900) pg/ml Total Protein (6.4-8.2) gm/dl Albumin (3.4-5.0) gm/dl Globulin (2.5-4.0) gm/dl Albumin/Globulin Ratio (0.9-2) TSH (0.300-4.500) uIu/ml Urine Color Urine Appearance (Clear) Urine pH (4.5-7.5) Ur Specific [place] (1.000-1.030) Urine Protein (Negative) Urine Glucose (UA) (Negative) Urine Ketones (Negative) Urine Blood (Negative) Urine Nitrite (Negative) Urine Bilirubin (Negative) Urine Urobilinogen (Negative) Ur Leukocyte Esterase (Negative) Urine WBC (Auto) (0-5) /hpf Urine RBC (Auto) (0-4) /hpf U Hyaline Cast (Auto) (0-5) /lpf U Epithel Cells (Auto) (0-5) /lpf Urine Bacteria (Auto) (Negative) Ur Renal Epithelial Cell COVID-19 [facility] Influ A Molecular Assay Negative (Negative) Influ B Molecular Assay Negative (Negative) SARS-CoV-2, RNA, NAAT NEGATIVE (NEGATIVE) 06/12/20 06/12/20 06/12/20 Range/Units 19:23 21:36 21:36 WBC 6.40 (4.8-10.8) K/uL RBC 3.01 L (4.7-6.1) M/uL Hgb 8.7 L (14.0-18.0) g/dL Hct 27.6 L (42-52) % MCV 91.7 (80-100) fL MCH 28.9 (25-34) pg MCHC 31.5 L (32-36) g/dL RDW Std Deviation 67.2 H (36.4-46.3) fL RDW Coeff of [place]ena 20.4 H (11.5-14.5) % Plt Count 208 (130-400) K/uL MPV 9.5 (7.4-10.4) fL Immature Gran % (Auto) 0.5 % Neut % (Auto) 68.0 % Lymph % (Auto) 19.4 % Dickinson % (Auto) 10.0 % Eos % (Auto) 1.3 % Baso % (Auto) 0.8 % Neut # (Auto) 4.36 (1.4-6.5) K/uL Lymph # (Auto) 1.24 (1.2-3.4) K/uL [place] # (Auto) 0.64 H (0.11-0.59) K/uL Eos # (Auto) 0.08 (0-0.5) K/uL Baso # (Auto) 0.05 (0-0.2) K/uL Immature Gran # (Auto) 0.03 H (0.00-0.02) K/uL Hypochromasia Present Anisocytosis Present PT 32.8 H (9.0-12.0) Seconds INR 3.3 H (0.9-1.1) APTT 38.4 H (21.0-31.0) Seconds PTT Ratio 1.4 Sodium (136-145) mmol/L Potassium (3.5-5.1) mmol/L Chloride (98-107) mmol/L Carbon Dioxide (21-32) mmol/L Anion Gap (3-11) BUN (7-18) mg/dl Creatinine (0.6-1.4) mg/dl Est Cr Clr Drug Dosing ml/min Est GFR ( Amer) Est GFR (Non-Af Amer) BUN/Creatinine Ratio (10-20) Glucose (70-99) mg/dl Lactate (0.4-2.0) mmol/L Calcium (8.5-10.1) mg/dl Magnesium (1.8-2.4) mg/dl Total Bilirubin (0.2-1) mg/dl AST (15-37) U/L ALT (12-78) U/L Alkaline Phosphatase (45-117) U/L Total Creatine Kinase (39-308) U/L Troponin I (0-0.045) ng/ml NT-Pro-B Natriuret Pep (0-900) pg/ml Total Protein (6.4-8.2) gm/dl Albumin (3.4-5.0) gm/dl Globulin (2.5-4.0) gm/dl Albumin/Globulin Ratio (0.9-2) TSH (0.300-4.500) uIu/ml Urine Color Dark Yellow Urine Appearance Cloudy A (Clear) Urine pH 5.0 (4.5-7.5) Ur Specific [place] 1.026 (1.000-1.030) Urine Protein 1+ H (Negative) Urine Glucose (UA) Trace H (Negative) Urine Ketones Trace H (Negative) Urine Blood Negative (Negative) Urine Nitrite Negative (Negative) Urine Bilirubin Negative (Negative) Urine Urobilinogen Negative (Negative) Ur Leukocyte Esterase 1+ H (Negative) Urine WBC (Auto) 10-30 H (0-5) /hpf Urine RBC (Auto) 5-10 H (0-4) /hpf U Hyaline Cast (Auto) 5-10 H (0-5) /lpf U Epithel Cells (Auto) >30 H (0-5) /lpf Urine Bacteria (Auto) Negative (Negative) Ur Renal Epithelial Cell Not Reportable COVID-19 Eval Order Influ A Molecular Assay (Negative) Influ B Molecular Assay (Negative) SARS-CoV-2, RNA, NAAT (NEGATIVE) 06/12/20 06/12/20 Range/Units 21:36 21:36 WBC (4.8-10.8) K/uL RBC (4.7-6.1) M/uL Hgb (14.0-18.0) g/dL Hct (42-52) % MCV (80-100) fL MCH (25-34) pg MCHC (32-36) g/dL RDW Std Deviation (36.4-46.3) fL RDW Coeff of Neena (11.5-14.5) % Plt Count (130-400) K/uL MPV (7.4-10.4) fL Immature Gran % (Auto) % Neut % (Auto) % Lymph % (Auto) % Dickinson % (Auto) % Eos % (Auto) % Baso % (Auto) % Neut # (Auto) (1.4-6.5) K/uL Lymph # (Auto) (1.2-3.4) K/uL [place] # (Auto) (0.11-0.59) K/uL Eos # (Auto) (0-0.5) K/uL Baso # (Auto) (0-0.2) K/uL Immature Gran # (Auto) (0.00-0.02) K/uL Hypochromasia Anisocytosis PT (9.0-12.0) Seconds INR (0.9-1.1) APTT (21.0-31.0) Seconds PTT Ratio Sodium 137 (136-145) mmol/L Potassium 5.2 H (3.5-5.1) mmol/L Chloride 103 (98-107) mmol/L Carbon Dioxide 28 (21-32) mmol/L Anion Gap 6.0 (3-11) BUN 81 H (7-18) mg/dl Creatinine 3.24 H (0.6-1.4) mg/dl Est Cr Clr Drug Dosing 33.0 ml/min Est GFR ( Amer) 21.8 Est GFR (Non-Af Amer) 18.8 BUN/Creatinine Ratio 24.9 H (10-20) Glucose 121 H (70-99) mg/dl Lactate 1.2 (0.4-2.0) mmol/L Calcium 8.7 (8.5-10.1) mg/dl Magnesium 2.6 H (1.8-2.4) mg/dl Total Bilirubin 0.5 (0.2-1) mg/dl AST 29 (15-37) U/L ALT 15 (12-78) U/L Alkaline Phosphatase 93 (45-117) U/L Total Creatine Kinase 57 (39-308) U/L Troponin I 0.019 (0-0.045) ng/ml NT-Pro-B Natriuret Pep 09935 H (0-900) pg/ml Total Protein 7.6 (6.4-8.2) gm/dl Albumin 2.7 L (3.4-5.0) gm/dl Globulin 4.9 H (2.5-4.0) gm/dl Albumin/Globulin Ratio 0.5 L (0.9-2) TSH 4.270 (0.300-4.500) uIu/ml Urine Color Urine Appearance (Clear) Urine pH (4.5-7.5) Ur Specific [place] (1.000-1.030) Urine Protein (Negative) Urine Glucose (UA) (Negative) Urine Ketones (Negative) Urine Blood (Negative) Urine Nitrite (Negative) Urine Bilirubin (Negative) Urine Urobilinogen (Negative) Ur Leukocyte Esterase (Negative) Urine WBC (Auto) (0-5) /hpf Urine RBC (Auto) (0-4) /hpf U Hyaline Cast (Auto) (0-5) /lpf U Epithel Cells (Auto) (0-5) /lpf Urine Bacteria (Auto) (Negative) Ur Renal Epithelial Cell COVID-19 Eval Order Influ A Molecular Assay (Negative) Influ B Molecular Assay (Negative) SARS-CoV-2, RNA, NAAT (NEGATIVE) Administered Medications Discontinued Medications Albuterol (Albut/Ipratrop 3mg/0.5mg Neb 3 Ml Vial) 3 ml NEB NOW STA Stop: 06/12/20 20:03 Last Admin: 06/12/20 21:24 Dose: 3 ml Documented by: [id number] Furosemide (Furosemide 40 Mg/4 Ml Vial) 80 mg IV NOW STA Stop: 06/12/20 20:03 Last Admin: 06/12/20 20:14 Dose: 80 mg Documented by: [id number] Imaging Data Attestation: I personally reviewed and interpreted this imaging study as follows: My Impression: Chest x-ray: The patient has cardiomegaly. There is evidence for CHF. The right lung looks more fluid overloaded than the left. There may be an effusion present on the right. Compared to a previous film, I do think the CHF findings are more pronounced. Radiologist's Impression: CT OF THE HEAD WITHOUT CONTRAST CLINICAL HISTORY: Confusion. COMPARISON STUDY: Head CT May 17, 2020. CT DOSE: 2763.53 mGy.cm TECHNIQUE: Helical axial images of the head were obtained without IV contrast. Automated exposure control was utilized for the study. A dose lowering technique was utilized adhering to the principles of ALARA. FINDINGS: This exam is moderately compromised by motion artifact. No acute intracranial hemorrhage, midline shift or mass effect is present. Ventricular system is stable. Basilar cisterns are patent. There are no extra-axial collections. White matter hypodensities are unchanged and suggest small vessel disease. There are no findings to suggest acute dural sinus thrombosis or acute territorial infarct. There are postoperative findings within the sinuses. Note is made of mild mucosal thickening and secretions within the right sphenoid sinus. Mastoid air cells are clear. IMPRESSION: No acute intracranial findings. Exam compromised by motion artifact. No significant change in appearance of the brain. Discharge Plan Visit Data Chief Complaint: Shortness of Breath/Dyspnea Stated Complaint: HEADACHE, CONFUSION, BREATHING DIFF. ED Provider: Greg Torres Discharge Problem: SOB (shortness of breath), Anemia, Acute confusion, CHF (congestive heart failure), ELVI (acute kidney injury) Patient Disposition: Admitted As Inpatient Condition: Fair Forms Stand Alone Forms: My [facility] Prescriptions Prescriptions: No Action pantoprazole 40 mg tablet,delayed release (DR/EC) 40 mg PO BID RF: 0 atorvastatin 10 mg tablet 10 mg PO HS RF: 0 levothyroxine 25 mcg tablet 25 mcg PO QAM RF: 0 levothyroxine 200 mcg tablet 200 mcg PO QAM RF: 0 metoprolol succinate 25 mg tablet extended release 24 hr 25 mg PO QAM RF: 0 fluoxetine 10 mg Tablet 10 mg PO DAILY RF: 0 insulin aspart U-100 [Novolog U-100 Insulin aspart] 100 unit/mL Solution 1 sliding scale dose SUBCUT TID RF: 0 hydralazine 50 mg Tablet 50 mg PO QID RF: 0 albuterol sulfate 90 mcg/actuation Hfa Aerosol Inhaler 2 puff INHALATION QID RF: 0 Anoro Ellipta 62.5-25 mcg/actuation Blister With Device 1 ea inhalation DAILY Qty: 14 RF: 0 furosemide 80 mg tablet 80 mg PO BID RF: 0 gabapentin 100 mg capsule 100 mg PO TID RF: 0 warfarin 1 mg tablet 1 - 2 mg PO DAILY RF: 0 linaclotide 145 mcg Capsule 145 mcg PO QAM RF: 0 fluticasone propionate 50 mcg/actuation [place],Suspension 2 spray INTRANASAL DAILY RF: 0 nystatin 100,000 unit/gram Powder 1 applic TOPICAL BID RF: 0 Calmoseptine 0.44-20.6 % Ointment 1 applic TOPICAL TID PRN (Reason: to buttocks) RF: 0 tramadol 50 mg Tablet 50 mg PO Q4 PRN (Reason: Pain) RF: 0 tramadol 50 mg Tablet 50 mg PO BID RF: 0 Lantus Solostar U-100 Insulin 100 unit/mL (3 mL) Insulin Pen 10 unit SC HS Qty: 3 RF: 0 sodium chloride [Saline Nasal Mist] 0.65 % Aerosol,[place] 1 spray INTRANASAL BID PRN (Reason: Congestion) RF: 0 vitamin B [id number]-[id number]-zinc cit 0.8-50 mg Tablet 1 tab PO DAILY RF: 0 Referrals Referrals: Susanne Macias DO [Primary Care Provider] - Discharge Problem: Anemia Qualifiers: Anemia type: unspecified type Qualified Code(s): D64.9 - Anemia, unspecified CHF (congestive heart failure) Qualifiers: Heart failure type: unspecified Heart failure chronicity: acute on chronic Qualified Code(s): I50.9 - Heart failure, unspecified
[2020-06-12 19:46] LABS: Appearance Urine Cloudy (Clear); Bacteria Urine Automated Negative (Negative); Bilirubin Urine Negative (Negative); Blood Urine Negative (Negative); Color Urine Dark Yellow; Epithelial Cell Urine Auto >30 /lpf (0-5); Glucose Urine UA Trace (Negative); Ketones Urine Trace (Negative); Leukocyte Esterase Urine 1+ (Negative); Nitrite Urine Negative (Negative); Protein Urine 1+ (Negative); Specific Gravity Urine 1.026 (1.000-1.030); Urobilinogen Urine Negative (Negative)
--- NOTE | 2020-06-12 19:56 | CT Scan Report ---
CT OF THE HEAD WITHOUT CONTRAST CLINICAL HISTORY: Confusion. COMPARISON STUDY: Head CT May 17, 2020. CT DOSE: 2763.53 mGy.cm TECHNIQUE: Helical axial images of the head were obtained without IV contrast. Automated exposure con trol was utilized for the study. A dose lowering technique was utilized adhering to the principles o f ALARA. FINDINGS: This exam is moderately compromised by motion artifact. No acute intracranial hemorrhage, m idline shift or mass effect is present. Ventricular system is stable. Basilar cisterns are patent. Th ere are no extra-axial collections. White matter hypodensities are unchanged and suggest small vessel disease. There are no findings to suggest acute dural sinus thrombosis or acute territorial infarct. There are postoperative findings within the sinuses. Note is made of mild mucosal thickening and sec retions within the right sphenoid sinus. Mastoid air cells are clear. IMPRESSION: No acute intracranial findings. Exam compromised by motion artifact. No significant ray ge in appearance of the brain. ACT 112: Negative or not required by law. Electronically signed by: Remington Bazan M.D. 06/12/2020 7:54 PM
[2020-06-12] MEDS ORDERED: FUROSEMIDE 40 MG/4 ML VIAL IV STA (20:02)
[2020-06-12] MEDS ORDERED: ALBUT/IPRATROP 3MG/0.5MG NEB 3 ML VIAL NEB STA (20:02)
[2020-06-12 20:12] LABS: Influenza A virus by PCR Negative (Negative); Influenza B virus by PCR Negative (Negative)
[2020-06-12 21:49] LABS: Basophils # (auto) 0.05 K/uL (0-0.2); Basophils % (auto) 0.8 %; Eosinophils # (auto) 0.08 K/uL (0-0.5); Eosinophils % (auto) 1.3 %; Hematocrit (blood only) 27.6 % (42-52); Hemoglobin 8.7 g/dL (14.0-18.0); Immature Granulocytes # (auto) 0.03 K/uL (0.00-0.02); Immature Granulocytes % (auto) 0.5 %; Lymphocytes # (auto) 1.24 K/uL (1.2-3.4); Lymphocytes % (auto) 19.4 %; Mean Corpuscular Hemoglobin 28.9 pg (25-34); Mean Corpuscular Hgb Conc 31.5 g/dL (32-36); Mean Corpuscular Volume 91.7 fL (80-100); Mean Platelet Volume 9.5 fL (7.4-10.4); Monocytes # (auto) 0.64 K/uL (0.11-0.59); Neutrophils # (auto) 4.36 K/uL (1.4-6.5); Platelet Count 208 K/uL (130-400); RDW Coefficient of Variation 20.4 % (11.5-14.5); RDW Standard Deviation 67.2 fL (36.4-46.3); Red Blood Count 3.01 M/uL (4.7-6.1)
[2020-06-12 21:59] LABS: INR 3.3 (0.9-1.1); Partial Thromboplastin Ratio 1.4; Partial Thromboplastin Time 38.4 Seconds (21.0-31.0); Prothrombin Time 32.8 Seconds (9.0-12.0)
[2020-06-12 22:07] LABS: Albumin Level 2.7 gm/dl (3.4-5.0); BUN Creatinine Ratio 24.9 (10-20); Calcium 8.7 mg/dl (8.5-10.1); Est GFR (African American) 21.8; Est GFR (Non-African American) 18.8; Magnesium 2.6 mg/dl (1.8-2.4); Potassium 5.2 mmol/L (3.5-5.1)
[2020-06-12 22:18] LABS: Albumin Globulin Ratio 0.5 (0.9-2); Bilirubin,Total 0.5 mg/dl (0.2-1); Globulin 4.9 gm/dl (2.5-4.0); Thyroid Stimulating Hormone 4.27 uIu/ml (0.300-4.500); Total Protein 7.6 gm/dl (6.4-8.2); Troponin I 0.019 ng/ml (0-0.045)
[2020-06-12 22:21] LABS: Anisocytosis Present; Hypochromasia Present
[2020-06-13] MEDS ORDERED: SODIUM CHLORIDE 0.65% NA SOLN 45 ML (OCEAN) PRN (01:43)
[2020-06-13] MEDS ORDERED: ACETAMINOPHEN 325 MG TAB PO PRN ×2 (01:43→07:09)
[2020-06-13] MEDS ORDERED: MENTHOL-ZINC OXIDE 360 APPLN/120 GM TUBE EXT PRN (01:43)
[2020-06-13] MEDS ORDERED: ONDANSETRON INJ 2 MG/ML 2 ML VIAL IV PRN (01:43)
[2020-06-13] MEDS ORDERED: NITROGLYCERIN SL 0.4 MG/TAB TAB SL PRN (01:43)
[2020-06-13] MEDS ORDERED: POLYETHYLENE (MIRALAX) 17 GM PACK PO PRN (01:43)
[2020-06-13] MEDS ORDERED: XOPENEX/ATROVENT 1.25mg/0.5MG NEB COMBO NEB SCH (01:43)
[2020-06-13] MEDS ORDERED: traMADol HCL 50 MG TABLET PO PRN (01:43)
[2020-06-13] MEDS ORDERED: DEXTROSE 50% 50 ML SYRINGE IV PRN (02:15)
[2020-06-13] MEDS ORDERED: GLUCOSE 40% GEL 15 GM TUBE PO PRN (02:15)
[2020-06-13] MEDS ORDERED: GLUCOSE 10 TABS/TUBE PO PRN (02:15)
[2020-06-13] MEDS ORDERED: GLUCAGON FOR INJ 1 MG VIAL SQ PRN (02:15)
[2020-06-13] MEDS ORDERED: CARBOHYDRATES FOR HYPOGLYCEMIA PO PRN (02:15)
[2020-06-13] MEDS ORDERED: PNEUMOCOCCAL POLYSACCHARIDES 25 MCG/0.5 ML VIAL/SYR IM ONE (02:21)
[2020-06-13] MEDS ORDERED: PNEUMOCOCCAL ADMINISTRATION CHARGE ONE (02:21)
--- NOTE | 2020-06-13 03:15 | History and Physical Report ---
DATE OF ADMISSION: 06/12/2020 CHIEF COMPLAINT: Shortness of breath. HISTORY OF PRESENT ILLNESS: This is a 64-year-old male with past medical history significant for type 2 diabetes, hypothyroidism, COPD, obesity hypoventilation syndrome, chronic diastolic heart failure, atrial flutter, morbid obesity, obstructive sleep apnea, on BiPAP, bilateral lymphedema, chronic kidney disease stage III. The patient lives with brother at present. Was brought in because of shortness of breath. Today he seems to be more confused. He is having shortness of breath for the last 3-4 days. He generally uses 2-3 liters of oxygen at home, was saturating 89% on 4 liters. He was placed on BiPAP when he came in. The patient is somewhat slow to answer, but alert and oriented. Knows that he is in the hospital. Denies any cough. Denies any fevers. Denies any chest pain. No nausea, no vomiting, no abdominal pain. Says he has normal bowel and bladder movements. Denies any pain. Complains having some shortness of breath. Currently the patient is saturating okay on 3 liters. ALLERGIES: ENVIRONMENTAL CAT DANDER. PAST MEDICAL HISTORY: As mentioned above. PAST SURGICAL HISTORY: EGD, Deviated nasal septum repair FAMILY HISTORY: Father had asthma, COPD, hypertension; mother had diabetes, hypertension, bipolar disorder; brother had massive MO at the age of 44, hypertension. SOCIAL HISTORY: Currently living with brother. Last attempted to quit smoking in 2016. Smokes half pack a day for the last 42 years. No alcohol use, no drug use. REVIEW OF SYSTEMS: As per HPI. Could not get complete review of systems as the patient is somewhat slow to answer and somewhat seemed to be confused. PHYSICAL EXAMINATION: GENERAL: The patient is morbidly obese, not in acute distress. VITAL SIGNS: Temperature 36.2, pulse 47, respiratory rate 15, blood pressure 131/73, oxygen 99% on 3 liters. HEENT: Pupils equal, round, and reactive to light. Oral mucosa moist. NECK: No neck masses seen. CARDIOVASCULAR: S1, S2 heard. Regular rate and rhythm, no murmur, no gallop. RESPIRATORY SYSTEM: Normal AP diameter. No accessory muscle use. No wheezing. Mild bibasilar crackles. ABDOMEN: Soft, bowel sounds present, nontender, no distention. CENTRAL NERVOUS SYSTEM: Alert and oriented to name and place. Somewhat slow to answer. Obeys simple commands. Speech is low volume. No facial droop. Moves extremities. EXTREMITIES: Bilateral lower extremity edema present. Chronic skin changes seen. LABORATORY DATA: WBC 6.4, hemoglobin 8.7, hematocrit 27.6, platelets 208. PT 32.8, INR 3.3, APTT 38.4. Sodium 137, potassium 5.2, chloride 103, bicarbonate 28, BUN 81, creatinine 3.24, serum glucose 121, lactate 1.2, calcium 8.7, magnesium 2.6, total bilirubin 0.5, AST 29, ALT 15, alkaline phosphatase 93. Troponin I of 0.019. BNP 91934. TSH 4.2. Urinalysis positive for glucose +1, leukocyte esterase positive. COVID-19 negative. Influenza A and B negative. IMAGING DATA: CT of the head, no acute findings seen. Chest x-ray, pulmonary congestion. EKG: Sinus bradycardia with first-degree AV block at a rate of 50. ASSESSMENT AND PLAN: A 64-year-old male who presents with shortness of breath. 1. Shortness of breath: Most likely seems to be an [id number] diastolic congestive heart failure. At [facility] on po Lasix 80mg bid.. The patient received 80mg IV Lasix in the ER. We will place him on IV Lasix 60 b.i.d. Continue his home hydralazine, Toprol-XL. Daily weights, I's and O's. Monitor in the tele floor. Follow echocardiogram. Consult cardiology in the a.m. for further recommendations. 2. History of chronic obstructive pulmonary disease, history of obstructive sleep apnea: Uses BiPAP at bedtime. Has encephalopathy, could be c02 retention. Difficult to do ABG in ER because of difficult stick We will place him on BiPAP and monitor him. Will try again for ABG.Continue home inhalers. Will also place him on nebs atc for now. 3. Acute kidney injury on chronic kidney disease stage III: Baseline creatinine around 1.2 to 1.4, currently creatinine of 3.2. Could be cardiorenal. Getting IV diuretics. If worsening, will consult nephrology. Closely monitor the labs. 4. Bradycardia. Sinus. Heart rates in 40's. will hold Toprol for now.. BP ok. Monitor in tele. Follow Echo. Cardiology consulted. 5. Diabetes: Continue his home Lantus. Will place on insulin sliding scale. Follow the blood sugars. 5 Hyperlipidemia: Continue statin. 7. Hypothyroidism: Continue Synthroid. TSH normal. 8. Possible urinary tract infection: Placed him on Rocephin. Follow the cultures. 9. Hypertension: Continue his hydralazine, Toprol-XL, is getting diuretics. Will monitor the blood pressure. 10. Obesity, needs counseling. 11. History of atrial fibrillation and atrial flutter: Currently is having bradycardia,.Tachybrady syndrome?Will hold Toprol and monitor.. He is on Coumadin. INR 3.3. We will follow and adjust Coumadin levels.Await cardiology input 12. Gastroesophageal reflux disease: Continue Protonix. 13. Deep venous thrombosis prophylaxis, on Coumadin. INR is 3.3. DISPOSITION: Closely monitor in tele floor. Level 1 full code. PT and OT prior to discharge. Social service to help with discharge planning. RON
[2020-06-13] MEDS: IPRATROPIUM BROMIDE NEB SOLN 0.02% 2.5 ML VIAL INH SCH ×4 (03:38→18:59)
[2020-06-13] MEDS: LEVALBUTEROL 1.25MG/0.5ML NEB INH SCH ×4 (03:38→18:59)
[2020-06-13] MEDS: cefTRIAXone SODIUM 2,000 MG in DEXTROSE 5% 50 ML IV SCH (03:53)
[2020-06-13 05:47] LABS: Basophils # (auto) 0.07 K/uL (0-0.2); Basophils % (auto) 1.1 %; Eosinophils # (auto) 0.11 K/uL (0-0.5); Eosinophils % (auto) 1.7 %; Hematocrit (blood only) 26.3 % (42-52); Hemoglobin 8.3 g/dL (14.0-18.0); Immature Granulocytes # (auto) 0.03 K/uL (0.00-0.02); Immature Granulocytes % (auto) 0.5 %; Lymphocytes # (auto) 1.04 K/uL (1.2-3.4); Lymphocytes % (auto) 16.5 %; Mean Corpuscular Hemoglobin 28.3 pg (25-34); Mean Corpuscular Hgb Conc 31.6 g/dL (32-36); Mean Corpuscular Volume 89.8 fL (80-100); Mean Platelet Volume 9.8 fL (7.4-10.4); Monocytes # (auto) 0.68 K/uL (0.11-0.59); Monocytes % (auto) 10.8 %; Neutrophils # (auto) 4.38 K/uL (1.4-6.5); Neutrophils % (auto) 69.4 %; Platelet Count 188 K/uL (130-400); RDW Coefficient of Variation 20.5 % (11.5-14.5); RDW Standard Deviation 66.9 fL (36.4-46.3); Red Blood Count 2.93 M/uL (4.7-6.1); White Blood Count 6.31 K/uL (4.8-10.8)
[2020-06-13 05:53] LABS: INR 3.4 (0.9-1.1)
[2020-06-13 06:09] LABS: BUN Creatinine Ratio 24.6 (10-20); Calcium 8.6 mg/dl (8.5-10.1); Creatinine Clr Calc Pharmacy 33.6 ml/min; Est GFR (African American) 22.7; Est GFR (Non-African American) 19.6
[2020-06-13 06:15] LABS: Anisocytosis Present
[2020-06-13 06:22] LABS: iSTAT Allen Test Pass; iSTAT Art Bld Gas pCO2 Correct 64 mmHg (35-46); iSTAT Art Bld Gas pH Corrected 7.297 (7.35-7.45); iSTAT Arterial Blood Gas HCO3 31 meg/L (19-24); iSTAT Arterial Blood Gas pCO2 66 mmHg (35-46); iSTAT Arterial Blood Gas pH 7.29 (7.35-7.45); iSTAT Arterial Blood Gas pO2 < 32 mmHg (80-95); iSTAT Arterial Blood Gas pO2 C 23; iSTAT Carbon Dioxide 33 mmol/L (24-31); iSTAT Hematocrit 28 % (42-52); iSTAT Hemoglobin 9.5 g/dl (14.0-18.0); iSTAT Site L Brachial; iSTAT Sodium 137 mmol/L (135-144)
[2020-06-13] MEDS: LEVOTHYROXINE SODIUM 25 MCG TABLET PO SCH (06:31)
[2020-06-13] MEDS: LEVOTHYROXINE SODIUM 200 MCG TABLET PO SCH (06:31)
[2020-06-13 06:41] LABS: iSTAT Allen Test Pass; iSTAT Arterial Blood Gas HCO3 27 meg/L (19-24); iSTAT Arterial Blood Gas pCO2 50 mmHg (35-46); iSTAT Arterial Blood Gas pH 7.34 (7.35-7.45); iSTAT Arterial Blood Gas pO2 87 mmHg (80-95); iSTAT Carbon Dioxide 29 mmol/L (24-31); iSTAT Site R Brachial
--- NOTE | 2020-06-13 07:15 | XRay Report ---
XR chest 1V portable CLINICAL HISTORY: weakness COMPARISON STUDY: Chest CT May 17, 2020. Chest radiograph May 19, 2020. FINDINGS: Moderate right pleural effusion is noted. There is no pneumothorax. There is a small left p leural effusion. Asymmetric right hemithorax opacification is noted. In part, this is due to the pleu ral effusion. Patient is rotated. Cardiomegaly is noted. There is suspected mild pulmonary edema. Fin dings have slightly progressed since prior exam. IMPRESSION: 1. Persistent bilateral pleural effusions, right larger than left, bilateral airspace opacities and s uspected mild pulmonary edema. 2. Cardiomegaly. ACT 112: Negative or not required by law. Electronically signed by: Remington Bazan M.D. 06/13/2020 7:14 AM
[2020-06-13 07:52] LABS: Magnesium 2.7 mg/dl (1.8-2.4)
[2020-06-13] MEDS: LINZESS~ORDER AWAITING ACTION SCH ×2 (07:59→13:05)
[2020-06-13] MEDS: PANTOprazole 40 MG TAB PO SCH ×2 (08:04→21:06)
[2020-06-13] MEDS: VITAMIN B COMPLEX TAB PO SCH (08:04)
[2020-06-13] MEDS: hydrALAZINE TAB 50 MG TAB PO SCH ×4 (08:05→21:47)
[2020-06-13] MEDS: GABAPENTIN 100 MG CAP PO SCH ×3 (08:05→21:06)
[2020-06-13] MEDS: FLUoxetine HCL 10 MG CAP PO SCH (08:05)
[2020-06-13] MEDS: NYSTATIN POWDER 15GM BTL EXT SCH ×2 (08:06→21:06)
[2020-06-13] MEDS: UMECLIDINIUM/VILANTEROL 62.5/25MCG 7 PUFFS/INHALER INH SCH (08:07)
[2020-06-13] MEDS: FLUTICASONE PROPIONATE NA SPR 16 GM BTL SCH (08:08)
[2020-06-13] MEDS: INSULIN ASPART 100 UNITS/ML 3 ML PEN SC SCH ×4 (08:09→21:46)
[2020-06-13] MEDS: traMADol HCL 50 MG TABLET PO SCH ×2 (08:12→21:06)
[2020-06-13] MEDS: FUROSEMIDE 60 MG in SYRINGE 0 ML IV SCH ×2 (08:12→16:34)
--- NOTE | 2020-06-13 08:15 | Hospitalist Progress Note ---
Date of Service June 13, 2020 Assessment & Plan (1) Acute and chronic respiratory failure: Acute congestive heart failure Obstructive sleep apnea on BiPAP Chronic obstructive pulmonary disease Morbid Obesity Bilateral Pleural Effusions -This is a morbidly obese patient with multiple reasons for acute on chronic respiratory failure. Back in previous hospitalization, patient had 05/17/2020 CT scan that visualized well the bilateral pleural effusions for which the right s ided lung durant had more effusion than the left in addition to other known health issues. -as per the 06/12/2020 ED notes that patient "presents to the ER with about 3 or 4 days of shortness of breath. Today, his brother thought he seemed more confused. The ambulance was called. Patient was on BiPAP when the ambulance arrived. He had a low O2 saturation of around 89% on 4 L, the patient typically wears 2.5 L on a daily basis." [place] [address] pg/ml -his admission 06/12/2020 admission CXR "Moderate right pleural effusion is noted. There is no pneumothorax. There is a small left pleural effusion. Asymmetric right hemithorax opacification is noted. In part, this is due to the pleural effusion. Patient is rotated. Cardiomegaly is noted. There is suspected mild pulmonary edema. Findings have slightly progressed since prior exam" -Patient's home medication of oral Lasix 80 mg BID has been changed by admitting physician Dr. Ingram to 60 mg IV q12 hours while having patient on BIPAP -will continue current diuresis plans and monitor if patient can be transitioned to supplementary O2 in the day time and continue BIPAP with sleep -follow the echocardiogram performed on 06/13/2020 and cardiology consult Acute metabolic encephalopathy on admission -mental status appears back to baseline Acute kidney injury on chronic kidney disease stage III -Baseline creatinine around 1.2 to 1.4 but this admission creatinine of 3.2. -doubt there is a urinary tract infection but admitting physician started ceftriaxone for those concerns and would appear to be reasonably to continue antibiotics while patient has a huang in the hospital and changes to creatinine -am concerned that IV Lasix will also affect further changes to creatinine and will follow nephrology consultation Hypertension -on home dose hydralazine and statin Bradycardia on admission -can hold off home dose metoprolol for now and titrate as needed History of paroxysmal ventricular tachycardia History of atrial flutter Chronic anticoagulation with coumadin -mildly elevated INR on presentation as 3.3. 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 TSH normal Depression -Continue fluoxetine Admission and Anticipated Discharge Date Admission Date: June 12, 2020 Subjective Patient seen and examined after echocardiogram was performed and while breathing on the BIPAP. It is difficult to hear patient with the BIPAP mask on but he is speaking in full sentences and is alert. Review of systems positive for only shortness of breath when he was at home. Currently patient denies any acute symptoms and seems to be breathing more comfortably than prior to the hospital. He denies acute pain and he has not appear seen for himself in the recent past at home any gross hematuria or blood per rectum. Review of Systems Review of Systems: All systems reviewed & are unremarkable except as noted in Subjective Physical Exam Constitutional: + obese, cooperative and comfortable Eyes: PERRL, conjunctivae normal, anicteric sclerae EOM intact bilaterally ENMT: external ear and nose normal, oropharynx normal Neck: normal visual inspection Respiratory: normal respiratory effort (on the BIPAP) Cardiovascular: Rate/Rhythm: + bradycardic Gastrointestinal (Abdomen): Percussion/Palpation: abdomen soft Musculoskeletal: Head/Neck/Chest: normocephalic and head atraumatic Neurologic: PERRL, EOMI, accommodation nl, no face palsy, no dysarthria Psychiatric: A+Ox3, euthymic affect Genitourinary: + bladder abnormality (has huang) Results & Data Results & Data ([facility]) Vital Signs (Past 12 Hours) Vital Signs Temp Pulse Pulse Pulse Resp BP BP 06/13/20 06:50 48 L 45 L 16 06/13/20 06:30 36.5 C 06/13/20 05:57 42 L 15 142/61 H 06/13/20 05:49 47 L 16 120/55 L 06/13/20 03:58 46 L 17 124/65 06/13/20 03:41 42 L 14 06/13/20 03:38 56 L 14 06/13/20 03:27 43 L 18 116/44 L 06/13/20 01:57 36.4 C L 48 L 14 118/54 L 06/13/20 01:34 46 L 26 H 145/119 H 06/13/20 01:27 43 L 22 06/13/20 01:12 06/13/20 00:00 47 L 15 06/12/20 23:38 18 131/73 06/12/20 23:30 46 L 16 06/12/20 23:00 50 L 13 06/12/20 22:31 46 L 14 120/49 L 06/12/20 22:30 44 L 17 06/12/20 22:00 45 L 47 L 14 126/60 06/12/20 21:56 45 L 15 130/55 L 06/12/20 21:37 45 L 20 06/12/20 21:30 44 L 15 06/12/20 21:23 50 L 12 06/12/20 21:00 46 L 10 L 06/12/20 20:30 45 L 15 06/12/20 20:15 47 L 16 124/43 L BP Pulse Ox 06/13/20 06:50 99 06/13/20 06:30 06/13/20 05:57 96 06/13/20 05:49 96 06/13/20 03:58 96 06/13/20 03:41 89 L 06/13/20 03:38 89 L 06/13/20 03:27 89 L 06/13/20 01:57 100 06/13/20 01:34 96 06/13/20 01:27 96 06/13/20 01:12 118/67 06/13/20 00:00 99 06/12/20 23:38 99 06/12/20 23:30 99 06/12/20 23:00 96 06/12/20 22:31 06/12/20 22:30 06/12/20 22:00 130/55 L 99 06/12/20 21:56 100 06/12/20 21:37 100 06/12/20 21:30 100 06/12/20 21:23 124/46 L 100 06/12/20 21:00 100 06/12/20 20:30 99 06/12/20 20:15 100
[2020-06-13] MEDS ORDERED: METOPROLOL SUCC 25MG EXT REL TAB PO SCH (09:00)
[2020-06-13] MEDS ORDERED: FUROSEMIDE 40 MG/4 ML VIAL IV SCH (09:00)
--- NOTE | 2020-06-13 11:29 | Cardiology Consultation ---
Date of Consultation June 13, 2020 Assessment & Plan (1) Acute on chronic respiratory failure with hypoxia and hypercapnia: (2) Acute on chronic right heart failure: (3) Acute on chronic renal failure: (4) Tachycardia-bradycardia syndrome: (5) LBBB (left bundle branch block): (6) Morbid obesity: (7) SAFIA (obstructive sleep apnea): Complex 64-year-old patient presents with acute respiratory insufficiency secondary to complications related to morbid obesity, obstructive sleep apnea, with pickwickian syndrome. Patient appears markedly volume overloaded with 30 pound weight gain since his most recent hospitalization in March. Noncompliance with medical therapies suspected. Continue IV diuretic therapy, Lasix 60 mg every 12 hours with close attention to urine output, GFR, electrolytes, and fluid balance. His kidney function has declined, however, he requires significant diuresis to improve volume/respiratory status at this time. Await nephrology input. Hold AV rakesh blocking agents currently. Monitor telemetry. No indication for urgent pacemaker placement at this time, however, will have to monitor closely during hospitalization given history of atypical atrial flutter requiring antiarrhythmic therapy in the past. Continue anticoagulation as previously ord ered. Repeat 2D transthoracic echocardiogram pending. Thank you for allow me to participate in the care of your patient. History of Present Illness Reason for Consultation: CHF, bradycardia Requesting Physician: Dr. Ingram Attending Physician: Rai Campo MD History of Present Illness 64-year-old male presented to the emergency department with shortness of breath. Lives with his brother who reported progressive confusion and lethargy over 3 to 4-day period. Generally requires 2 to 3 L of supplemental oxygen however saturating 89% on 4 L on admission. Transiently placed on BiPAP with improvement. Patient admitted to the intensive care unit. Oxygen saturation currently stable on 5 L nasal cannula. He is a poor historian. Hospitalized in March due to obesity hypoventilation syndrome and acute decompensated heart failure. More than 30 pounds of fluid were diuresed during that admission. Atrial flutter with controlled ventricular response treated with oral amiodarone. Amiodarone discontinued at some point since hospital discharge in March. Currently taking Toprol-XL 25 mg once daily. Telemetry reveals sinus bradycardia with a first-degree AV block and a left bundle branch block. He denies lightheadedness, dizziness, syncope, or near syncope. Has not taken diuretic therapy in the outpatient setting for several weeks. Chronically anticoagulated with warfarin due to history of atrial flutter. INR mildly supratherapeutic on admission. No signs/symptoms of GI/ blood loss. Admitted in early May due to possible GI bleed. EGD demonstrating gastritis without acute ulceration. Currently patient is resting comfortably. Denies chest pain or shortness of breath at rest. Lasix 60 mg twice daily ordered with approximately 355 cc nega tive fluid balance since admission. Acute renal failure noted on admission with a creatinine 3.24. Baseline 1.41.6. Denies any NSAID use. Allergies Allergy/AdvReac Type Severity Reaction Status Date / Time pollen extracts Allergy Mild sneezing/watery Verified 06/12/20 21:21 eyes Home Medications Medication Instructions Recorded Confirmed Type atorvastatin 10 mg PO HS 10/24/18 06/12/20 History levothyroxine 25 mcg PO QAM 10/24/18 06/12/20 History levothyroxine 200 mcg PO QAM 10/24/18 06/12/20 History metoprolol succinate 25 mg PO QAM 10/24/18 06/12/20 History pantoprazole 40 mg tablet,delayed 40 mg PO BID 02/11/19 06/12/20 History release albuterol sulfate 2 puff INHALATION QID 11/29/19 06/12/20 History fluoxetine 10 mg PO DAILY 11/29/19 06/12/20 History hydralazine 50 mg PO QID 11/29/19 06/12/20 History insulin aspart U-100 [Novolog 1 sliding scale dose SUBCUT TID 11/29/19 06/12/20 History U-100 Insulin aspart] Anoro Ellipta 1 ea INHALATION DAILY #14 ea 12/05/19 06/12/20 Rx Calmoseptine 1 applic TOPICAL TID PRN 05/17/20 06/12/20 History fluticasone propionate 2 spray INTRANASAL DAILY 05/17/20 06/12/20 History furosemide 80 mg PO BID 05/17/20 06/12/20 History gabapentin 100 mg PO TID 05/17/20 06/12/20 History linaclotide 145 mcg PO QAM 05/17/20 06/12/20 History nystatin 1 applic TOPICAL BID 05/17/20 06/12/20 History tramadol 50 mg PO BID 05/17/20 06/12/20 History tramadol 50 mg PO Q4 PRN 05/17/20 06/12/20 History warfarin 1 - 2 mg PO DAILY 05/17/20 06/12/20 History insulin glargine [Lantus Solostar 10 unit SC HS #3 ml 05/21/20 06/12/20 Rx U-100 Insulin] sodium chloride [Saline Nasal Mist] 1 spray INTRANASAL BID PRN 06/12/20 06/12/20 History vitamin B [id number] cit 1 tab PO DAILY 06/12/20 06/12/20 History Patient History Medical History (Updated 06/13/20 @ 11:26 by Oliveir Suazo DO) Anemia Chronic diastolic heart failure COPD (chronic obstructive pulmonary disease) inhalers daily/prn and oxygen 2L n/c Diabetes mellitus, type 2 Elevated troponin I level Graves disease History of gastric ulcer Hyperlipidemia Hypertension Hypothyroidism Hypoxia Left bundle branch block chronic Morbid obesity with BMI of 50.0-59.9, adult Obesity hypoventilation syndrome On home oxygen therapy 2L N/C at all times SAFIA (obstructive sleep apnea) cpap--2L oxygen Surgical History [place] [facility] [place] History of colonoscopy History of endoscopic sinus surgery History of esophagogastroduodenoscopy (EGD) History of tooth extraction History of wisdom tooth extraction S/P correction of deviated nasal septum Family History Mother Diabetes Hypertension Brother , dies at 44 yo from MS Heart disease Other No family history of adverse response to anesthesia Social History Smoking Status: Current some day smoker Tobacco Type: Cigarettes Years Smoked: 60; Cigarettes Per Day: 4; Second Hand Exposure: Yes; Hx Alcohol Use: No Hx Substance Use: No Preferred Language: [place] Communication Ability: Impaired Sailing Officer Required: Voice Beliefs That Will Affect Care: None marital status: Single Current Living Situation: Family Current Living Situation Comment: Lives with Brother current occupational status: unemployed Other Information That Helps Us Care for You: No Feels Safe at Home: Yes Safety Concerns: Feels Safe At This Time Assistive Devices: CPAP, Glasses and Oxygen - Continuous Review of Systems Review of Systems: All systems reviewed & are unremarkable except as noted in HPI & below Significant lower extremity and abdominal edema. Physical Exam Constitutional: well developed, + ill appearing and + morbidly obese Respiratory: normal respiratory effort; no respiratory distress, no labored breathing and no retractions Auscultation: + diminished lung sounds (Bilateral, poor effort) and + wheezes (End expiratory wheeze bilateral); no crackles, no rales and no rhonchi Cardiovascular: Rate/Rhythm: regular rate, regular rhythm and + bradycardic Heart Sounds: normal S1 and normal S2; no murmur and no cardiac rub Vessels: no JVD (Difficult to assess due to body habitus) and no carotid bruit Extremities: + edema (2+ bilateral lower extremity pitting edema up to the mid abdomen) Gastrointestinal (Abdomen): Inspection/Auscultation: normal bowel sounds and + abdominal edema Percussion/Palpation: abdomen nontender, no guarding and abdomen not rigid Skin: + ecchymosis (Right upper extremity) Neurologic: moves all extremities; no focal motor deficits Psychiatric: Orientation: alert and oriented x 3 Apperance: + disheveled Results & Data ([facility]) Vital Signs (Past 12 Hours) Vital Signs Temp Pulse Pulse Resp BP BP BP 06/13/20 06:50 48 L 45 L 16 06/13/20 06:30 36.5 C 06/13/20 05:57 42 L 15 142/61 H 06/13/20 05:49 47 L 16 120/55 L 06/13/20 03:58 46 L 17 124/65 06/13/20 03:41 42 L 14 06/13/20 03:38 56 L 14 06/13/20 03:27 43 L 18 116/44 L 06/13/20 01:57 36.4 C L 48 L 14 118/54 L 06/13/20 01:34 46 L 26 H 145/119 H 06/13/20 01:27 43 L 22 06/13/20 01:12 118/67 06/13/20 00:00 47 L 15 06/12/20 23:38 18 131/73 06/12/20 23:30 46 L 16 Pulse Ox 06/13/20 06:50 99 06/13/20 06:30 06/13/20 05:57 96 06/13/20 05:49 96 06/13/20 03:58 96 06/13/20 03:41 89 L 06/13/20 03:38 89 L 06/13/20 03:27 89 L 06/13/20 01:57 100 06/13/20 01:34 96 06/13/20 01:27 96 06/13/20 01:12 06/13/20 00:00 99 06/12/20 23:38 99 06/12/20 23:30 99
--- NOTE | 2020-06-13 12:55 | Electrocardiogram Report ---
Test Reason : Blood Pressure : / mmHG Vent. Rate : 050 BPM Atrial Rate : 050 BPM P-R Int : 244 ms QRS Dur : 080 ms QT Int : 466 ms P-R-T Axes : 040 -80 053 degrees QTc Int : 424 ms Poor data quality, interpretation may be adversely affected Sinus bradycardia with 1st degree A-V block Left axis deviation Non-specific intra-ventricular conduction delay Low voltage QRS Possible Lateral infarct (cited on or before 12-JUN-2020) Abnormal ECG When compared with ECG of 24-MAY-2020 10:12, Premature ventricular complexes are no longer Present Questionable change in initial forces of Lateral leads Confirmed by Cassius De La Paz ([id number]) on 06/13/2020 12:55:42 PM Referred By: REFERRED SELF Confirmed By:Cassius De La Paz
--- NOTE | 2020-06-13 12:59 | Electrocardiogram Report ---
Test Reason : Blood Pressure : / mmHG Vent. Rate : 079 BPM Atrial Rate : 144 BPM P-R Int : 000 ms QRS Dur : 052 ms QT Int : 250 ms P-R-T Axes : 000 -22 164 degrees QTc Int : 286 ms Poor data quality, interpretation may be adversely affected Atrial fibrillation with a competing junctional pacemaker with premature ventricular or aberrantly co nducted complexes and with ventricular escape complexes Low voltage QRS Left bundle branch block Abnormal ECG When compared with ECG of 12-JUN-2020 19:02, (unconfirmed) No significant change Confirmed by Cassius De La Paz ([id number]) on 06/13/2020 12:58:52 PM Referred By: REFERRED SELF Confirmed By:Cassius De La Paz
--- NOTE | 2020-06-13 13:04 | Electrocardiogram Report ---
Test Reason : Blood Pressure : / mmHG Vent. Rate : 094 BPM Atrial Rate : 094 BPM P-R Int : 060 ms QRS Dur : 004 ms QT Int : 056 ms P-R-T Axes : 000 000 000 degrees QTc Int : 070 ms Poor data quality, interpretation may be adversely affected Sinus rhythm Indeterminate axis Nonspecific T wave abnormality Abnormal ECG When compared with ECG of 13-JUN-2020 04:38, No significant change Confirmed by Cassius De La Paz ([id number]) on 06/13/2020 1:04:19 PM Referred By: REFERRED SELF Confirmed By:Cassius De La Paz
--- NOTE | 2020-06-13 14:29 | Nephrology Consultation ---
Date of Consultation June 13, 2020 Assessment & Plan (1) ELVI (acute kidney injury): Acute kidney injury secondary to exacerbation of failure, likely secondary to noncompliance of medications Started on IV Lasix, renal functions have improved with that, UOP has also improved -To be more comfortable, saturating around 90%-2% on 2 L Daily BMP and weights -Input and output. Watch for metabolic acid alkalosis while on diuretic. Difficult management to get a balance between the heart and kidney Daily review with adjustment of diuretic dose. (2) Acute and chronic respiratory failure: As above Continue on 60 mg IV twice daily of Lasix. Cardiology on board. (3) UTI (urinary tract infection): Continue on ceftriaxone until final cultures available. History of Present Illness Reason for Consultation: Acute kidney injury Attending Physician: Rai Campo MD History of Present Illness This is a 64 years old [place] obese gentleman with a past history of diabetes 2 hypothyroidism COPD obesity hypoventilation syndrome chronic diastolic heart failure on BiPAP kidney stage III was brought in by his brother because of increasing shortness of breath and confusion has been ongoing for the last 3 to 4-day, in the ER he was started on BiPAP and saturations picked up denied any cough fever chest pain nausea or vomiting or abdominal pain, he has been a significant amount around 30 pounds of weight since his most recent hospitaliz ation . Likely noncompliant with CPAP and his diuretics, He was started on IV diuretics 60 mg twice daily was on BiPAP overnight, in the morning this was converted to nasal cannula and he was saturating well 90% on 2 L. Reviewed he was in mild respiratory distress but alert oriented answers all the questions. He is CKD stage III, latest creatinine 1.43 on 05/26/2020 and on admission this was raised to 3.4, continues to make urine but it is difficult to quantify it, Allergies Allergy/AdvReac Type Severity Reaction Status Date / Time pollen extracts Allergy Mild sneezing/watery Verified 06/12/20 21:21 eyes Home Medications Medication Instructions Recorded Confirmed Type atorvastatin 10 mg PO HS 10/24/18 06/12/20 History levothyroxine 25 mcg PO QAM 10/24/18 06/12/20 History levothyroxine 200 mcg PO QAM 10/24/18 06/12/20 History metoprolol succinate 25 mg PO QAM 10/24/18 06/12/20 History pantoprazole 40 mg tablet,delayed 40 mg PO BID 02/11/19 06/12/20 History release albuterol sulfate 2 puff INHALATION QID 11/29/19 06/12/20 History fluoxetine 10 mg PO DAILY 11/29/19 06/12/20 History hydralazine 50 mg PO QID 11/29/19 06/12/20 History insulin aspart U-100 [Novolog 1 sliding scale dose SUBCUT TID 11/29/19 06/12/20 History U-100 Insulin aspart] Anoro Ellipta 1 ea INHALATION DAILY #14 ea 12/05/19 06/12/20 Rx Calmoseptine 1 applic TOPICAL TID PRN 05/17/20 06/12/20 History fluticasone propionate 2 spray INTRANASAL DAILY 05/17/20 06/12/20 History furosemide 80 mg PO BID 05/17/20 06/12/20 History gabapentin 100 mg PO TID 05/17/20 06/12/20 History linaclotide 145 mcg PO QAM 05/17/20 06/12/20 History nystatin 1 applic TOPICAL BID 05/17/20 06/12/20 History tramadol 50 mg PO BID 05/17/20 06/12/20 History tramadol 50 mg PO Q4 PRN 05/17/20 06/12/20 History warfarin 1 - 2 mg PO DAILY 05/17/20 06/12/20 History insulin glargine [Lantus Solostar 10 unit SC HS #3 ml 05/21/20 06/12/20 Rx U-100 Insulin] sodium chloride [Saline Nasal Mist] 1 spray INTRANASAL BID PRN 06/12/20 06/12/20 History vitamin B [id number] cit 1 tab PO DAILY 06/12/20 06/12/20 History Patient History Medical History (Updated 06/13/20 @ 11:26 by Olivier Suazo DO) Anemia Chronic diastolic heart failure COPD (chronic obstructive pulmonary disease) inhalers daily/prn and oxygen 2L n/c Diabetes mellitus, type 2 Elevated troponin I level Graves disease History of gastric ulcer Hyperlipidemia Hypertension Hypothyroidism Hypoxia Left bundle branch block chronic Morbid obesity with BMI of 50.0-59.9, adult Obesity hypoventilation syndrome On home oxygen therapy 2L N/C at all times SAFIA (obstructive sleep apnea) cpap--2L oxygen Surgical History History of angioplasty 2003 @ [facility]--no stents History of colonoscopy History of endoscopic sinus surgery History of esophagogastroduodenoscopy (EGD) History of tooth extraction History of wisdom tooth extraction S/P correction of deviated nasal septum Family History Mother Diabetes Hypertension Brother , dies at 44 yo from [place] Heart disease Other No family history of adverse response to anesthesia Social History Smoking Status: Current some day smoker Tobacco Type: Cigarettes Years Smoked: 60; Cigarettes Per Day: 4; Second Hand Exposure: Yes; Hx Alcohol Use: No Hx Substance Use: No Preferred Language: Yemeni Communication Ability: Impaired Department Helper Required: Voice Beliefs That Will Affect Care: None marital status: Single Current Living Situation: Family Current Living Situation Comment: Lives with Brother current occupational status: unemployed Other Information That Helps Us Care for You: No Feels Safe at Home: Yes Safety Concerns: Feels Safe At This Time Assistive Devices: CPAP, Glasses and Oxygen - Continuous Review of Systems Review of Systems: All systems reviewed & are unremarkable except as noted in HPI & below Physical Exam Physical Exam: GENERAL: The patient is morbidly obese, not in acute distress.. HEENT: Oral mucosa moist. NECK: No neck masses seen, difficult due to assess JVP because of extreme obesity CARDIOVASCULAR: S1, S2 heard. Regular rate and rhythm, no murmur, no gallop. RESPIRATORY SYSTEM: Normal AP diameter. No accessory muscle use. No wheezing. Mild bibasilar crackles. ABDOMEN: Soft, bowel sounds present, nontender, no distention. Grossly obese. CENTRAL NERVOUS SYSTEM: Alert and oriented to name and place. EXTREMITIES: Bilateral lower extremity edema present. Chronic skin changes seen. Results & Data ([facility]) Vital Signs (Past 12 Hours) Vital Signs Temp Pulse Pulse Resp BP Pulse Ox 06/13/20 13:33 44 L 16 93 06/13/20 06:50 48 L 45 L 16 99 06/13/20 06:30 36.5 C 06/13/20 05:57 42 L 15 142/61 H 96 06/13/20 05:49 47 L 16 120/55 L 96 06/13/20 03:58 46 L 17 124/65 96 06/13/20 03:41 42 L 14 89 L 06/13/20 03:38 56 L 14 89 L 06/13/20 03:27 43 L 18 116/44 L 89 L Laboratory Results 06/13/20 05:34 06/13/20 07:11
[2020-06-13] MEDS: ALBUTEROL HFA 8 GM INHALER INH SCH (15:58)
[2020-06-13 16:30] LABS: Albumin Level 2.7 gm/dl (3.4-5.0); BUN Creatinine Ratio 23.8 (10-20); Calcium 8.8 mg/dl (8.5-10.1); Creatinine Clr Calc Pharmacy 31.9 ml/min; Est GFR (African American) 21.4; Est GFR (Non-African American) 18.4; Potassium 5.1 mmol/L (3.5-5.1)
[2020-06-13 16:33] LABS: Albumin Globulin Ratio 0.5 (0.9-2); Bilirubin,Total 0.4 mg/dl (0.2-1); Globulin 5.2 gm/dl (2.5-4.0); Total Protein 7.9 gm/dl (6.4-8.2)
[2020-06-13] MEDS: ATORVASTATIN 10 MG TAB PO SCH (21:06)
[2020-06-13] MEDS: INSULIN GLARGINE SOLOSTAR 100 UNITS/ML 3 ML PEN SC SCH (21:46)
[2020-06-14] MEDS: LINZESS~ORDER AWAITING ACTION SCH ×3 (00:10→15:59)
[2020-06-14] MEDS: LEVALBUTEROL 1.25MG/0.5ML NEB INH SCH ×4 (00:22→19:48)
[2020-06-14] MEDS: IPRATROPIUM BROMIDE NEB SOLN 0.02% 2.5 ML VIAL INH SCH ×4 (00:22→19:48)
[2020-06-14 06:11] LABS: Basophils # (auto) 0.03 K/uL (0-0.2); Basophils % (auto) 0.4 %; Eosinophils # (auto) 0.11 K/uL (0-0.5); Eosinophils % (auto) 1.5 %; Hematocrit (blood only) 25.8 % (42-52); Immature Granulocytes # (auto) 0.04 K/uL (0.00-0.02); Immature Granulocytes % (auto) 0.5 %; Lymphocytes % (auto) 16.2 %; Mean Corpuscular Hemoglobin 28.3 pg (25-34); Mean Corpuscular Volume 91.2 fL (80-100); Mean Platelet Volume 9.3 fL (7.4-10.4); Monocytes # (auto) 0.83 K/uL (0.11-0.59); Monocytes % (auto) 11.2 %; Neutrophils # (auto) 5.19 K/uL (1.4-6.5); Neutrophils % (auto) 70.2 %; Platelet Count 210 K/uL (130-400); RDW Coefficient of Variation 20.7 % (11.5-14.5); RDW Standard Deviation 68.7 fL (36.4-46.3); Red Blood Count 2.83 M/uL (4.7-6.1)
[2020-06-14] MEDS: cefTRIAXone SODIUM 2,000 MG in DEXTROSE 5% 50 ML IV SCH (06:19)
[2020-06-14] MEDS: LEVOTHYROXINE SODIUM 25 MCG TABLET PO SCH (06:21)
[2020-06-14] MEDS: LEVOTHYROXINE SODIUM 200 MCG TABLET PO SCH (06:21)
[2020-06-14 06:28] LABS: INR 3.9 (0.9-1.1); Prothrombin Time 38.1 Seconds (9.0-12.0)
[2020-06-14 06:28] LABS: Estimated Average Glucose 128 mg/dl; Hemoglobin A1C 6.1 % (4.5-5.6)
[2020-06-14 06:38] LABS: Albumin Level 2.7 gm/dl (3.4-5.0); BUN Creatinine Ratio 25.1 (10-20); Calcium 8.9 mg/dl (8.5-10.1); Creatinine Clr Calc Pharmacy 32.4 ml/min; Est GFR (African American) 21.8; Est GFR (Non-African American) 18.8; Potassium 4.5 mmol/L (3.5-5.1)
[2020-06-14 06:39] LABS: Albumin Globulin Ratio 0.6 (0.9-2); Bilirubin,Total 0.5 mg/dl (0.2-1); Globulin 4.9 gm/dl (2.5-4.0); Total Protein 7.6 gm/dl (6.4-8.2)
[2020-06-14 06:47] LABS: Anisocytosis Present; Basophilic Stippling 1+
[2020-06-14 08:19] LABS: Magnesium 2.5 mg/dl (1.8-2.4)
[2020-06-14] MEDS: FUROSEMIDE 40 MG in SYRINGE 0 ML IV SCH ×3 (09:24→20:22)
[2020-06-14] MEDS: INSULIN ASPART 100 UNITS/ML 3 ML PEN SC SCH ×4 (09:24→21:12)
[2020-06-14] MEDS: UMECLIDINIUM/VILANTEROL 62.5/25MCG 7 PUFFS/INHALER INH SCH (09:25)
[2020-06-14] MEDS: hydrALAZINE TAB 50 MG TAB PO SCH ×4 (09:25→20:21)
[2020-06-14] MEDS: GABAPENTIN 100 MG CAP PO SCH ×3 (09:26→20:20)
[2020-06-14] MEDS: FLUTICASONE PROPIONATE NA SPR 16 GM BTL SCH (09:26)
[2020-06-14] MEDS: FLUoxetine HCL 10 MG CAP PO SCH (09:26)
[2020-06-14] MEDS: PANTOprazole 40 MG TAB PO SCH ×2 (09:26→20:21)
[2020-06-14] MEDS: VITAMIN B COMPLEX TAB PO SCH (09:27)
[2020-06-14] MEDS: NYSTATIN POWDER 15GM BTL EXT SCH ×2 (09:27→20:23)
[2020-06-14] MEDS: traMADol HCL 50 MG TABLET PO SCH ×2 (09:27→20:21)
--- NOTE | 2020-06-14 09:46 | Hospitalist Progress Note ---
Date of Service June 14, 2020 Assessment & Plan (1) Acute and chronic respiratory failure: Acute on chronic right heart failure Obstructive sleep apnea on BiPAP Chronic obstructive pulmonary disease Morbid Obesity Bilateral Pleural Effusions -This is a morbidly obese patient with multiple reasons for acute on chronic respiratory failure. Back in previous hospitalization, patient had 05/17/2020 CT scan that visualized well the bilateral pleural effusions for which the right sided lung durant had more effusion than the left in addition to other known health issues. -as per the 06/12/2020 ED notes that patient "presents to the ER with about 3 or 4 days of shortness of breath. Today, his brother thought he seemed more confused. The ambulance was called. Patient was on BiPAP when the ambulance arrived. He had a low O2 saturation of around 89% on 4 L, the patient typically wears 2.5 L on a daily basis." [place] [address] pg/ml -his admission 06/12/2020 admission CXR "Moderate right pleural effusion is noted. There is no pneumothorax. There is a small left pleural effusion. Asymmetric right hemithorax opacification is noted. In part, this is due to the pleural effusion. Patient is rotated. Cardiomegaly is noted. There is suspected mild pulmonary edema. Findings have slightly progressed since prior exam" -Patient's home medication of oral Lasix 80 mg BID has been changed by admitting physician Dr. Ingram to 60 mg IV q12 hours while having patient on BIPAP -hospitalist have modified the Lasix dosing on 06/14/2020 as 40 mg IV TID for now, further recommendations by cardiology and nephrology Acute metabolic encephalopathy on admission -his mental status may wax and wane due to the breathing issues, BIPAP with sleep or somnolence will be neded Bradycardia on admission -holding beta blockers at this time History of paroxysmal ventricular tachycardia History of atrial flutter Chronic anticoagulation with coumadin -mildly elevated INR on presentation as 3.3. hold coumadin for now -of note that his previous hospitalization had listed amiodarone but not currently active on current home med list Acute kidney injury on chronic kidney disease stage III -Baseline creatinine around 1.2 to 1.4 but this admission creatinine of 3.2. -doubt there is a urinary tract infection but admitting physician started ceftriaxone for those concerns and would appear to be reasonably to continue antibiotics while patient has a huang in the hospital and changes to creatinine -as of 06/14/2020, so far the creatinine stable between 3.2 to 3.3 while on IV Lasix, monitor Hypertension -on home dose hydralazine and statin Diabetes Mellitus Type 2 with group home current use of insulin -on insulin, monitor blood sugar Gastroesophageal reflux disease -Continue Protonix Hypothyroidism -Continue Synthroid. TSH normal Depression -Continue fluoxetine Admission and Anticipated Discharge Date Admission Date: June 12, 2020 Subjective Patient is seen at the bedside with nurse. Patient on nasal cannula. He seems somnolent and while arousable, he is not alert enough to answer review of systems questions. Patient is be place on the BIPAP during sleep/somnolence Review of Systems Review of Systems: Unobtainable due to cognitive status Physical Exam Constitutional: + obese Eyes: PERRL, conjunctivae normal, anicteric sclerae EOM intact bilaterally ENMT: external ear and nose normal, oropharynx normal Neck: normal visual inspection Respiratory: normal respiratory effort (on the BIPAP) Cardiovascular: Rate/Rhythm: + bradycardic Gastrointestinal (Abdomen): Percussion/Palpation: abdomen soft Musculoskeletal: Head/Neck/Chest: normocephalic and head atraumatic Neurologic: PERRL, EOMI, accommodation nl, no face palsy, no dysarthria Psychiatric: A+Ox3, euthymic affect Genitourinary: + bladder abnormality (has huang) Results & Data Results & Data ([facility]) Vital Signs (Past 12 Hours) Vital Signs Temp Pulse Pulse Pulse Resp BP Pulse Ox 06/14/20 08:12 36.4 C L 53 L 18 117/57 L 99 06/14/20 07:13 60 18 95 06/14/20 03:36 36.3 C L 54 L 18 120/66 94 06/14/20 00:27 36.4 C L 53 L 18 116/46 L 98 06/14/20 00:22 58 L 58 L 16 90 06/13/20 22:55 51 L 18 96 06/13/20 22:29 45 L
--- NOTE | 2020-06-14 10:08 | Cardiology Progress Note ---
Date of Service June 14, 2020 Assessment & Plan (1) Sinus bradycardia: (2) Tachycardia-bradycardia syndrome: (3) Acute on chronic renal failure: (4) Acute on chronic right heart failure: (5) Acute on chronic respiratory failure with hypoxia and hypercapnia: (6) SOB (shortness of breath): (7) Anemia: Morbid obesity, obstructive sleep apnea, pickwickian physiology. Marked diffuse volume overload. Noncompliance with medical therapies suspected. History of atypical atrial flutter requiring antiarrhythmic therapy in the past. RECOMMENDATIONS Continue cautious IV diuretic therapy with close attention to urine output, GFR, electrolytes, and fluid balance. He requires significant diuresis to improve volume/respiratory status. Hold AV rakesh blocking agents currently. No overt indication for urgent pacemaker placement at this point. Maintain telemetry. Hold anticoagulation given the supratherapeutic INR of 3.9. Vasculitis workup Admission and Anticipated Discharge Date Admission Date: June 12, 2020 Supervising Physician Co-Signing Physician Notes Patient seen and examined at the bedside. Arousable to verbal stimuli. PE: VSS, bradycardic. Heart: Regular, distant heart sounds, no murmur. Lung : coarse breath sounds B/L with expiratory wheeze. Ext/Abd: 3+ pitting left-sided abdominal edema, 2+ pedal and pretibial edema. A/P: Agree with PA-C history, physical exam, assessment and plan as noted above. Diurese with IV lasix. Bipap as needed. Monitor telemetry. Subjective Patient seen and examined. Chart, medications, and telemetry reviewed. Patient obtunded, complains of dyspnea. No chest pain. Telemetry: Sinus bradycardia in the 40's and 50's. June 13, 2020 TTE Interpretation Summary ([facility], Dr. Suazo): Technically difficult. Technically limited. LV not well visualized. LV systolic unable to be evaluated. Poorly visualized valvular anatomy. Moderate dilated RV in limited views. Normal RV systolic function by TAPSE. Dilated inferior vena cava with reduced collapsability with sniff indicated an elevated right atrial pressure of 15 mmHg. Review of Systems Review of Systems: Unobtainable due to cognitive status Physical Exam 2 Physical Exam: General: Obtunded. Morbidly obese. Diffuse pitting edema. HEENT: Normocephalic. Atraumatic. PER. Conjunctiva pink, sclera pale. No carotid bruits. No overt JVD. Heart: Regular at 50 bpm. No murmur appreciated. No rub. Lungs: Diffuse expiratory wheezing. Abdomen: +BS. Somewhat firm. Distended. No overt organomegaly. Extremities: 1+ edema. + Ecchymosis. No clubbing. No cyanosis. Results & Data ([facility]) Vital Signs (Past 12 Hours) Vital Signs Temp Pulse Pulse Pulse Resp BP Pulse Ox 06/14/20 08:12 36.4 C L 53 L 18 117/57 L 99 06/14/20 07:13 60 18 95 06/14/20 03:36 36.3 C L 54 L 18 120/66 94 06/14/20 00:27 36.4 C L 53 L 18 116/46 L 98 06/14/20 00:22 58 L 58 L 16 90 06/13/20 22:55 51 L 18 96 06/13/20 22:29 45 L Laboratory Results Laboratory Results - last 24 hr 06/13/20 06/13/20 06/13/20 05:34 11:37 16:00 WBC RBC Hgb Hct MCV MCH MCHC RDW Std Deviation RDW Coeff of Neena Plt Count MPV Immature Gran % (Auto) Neut % (Auto) Lymph % (Auto) [place] % (Auto) Eos % (Auto) Baso % (Auto) Neut # (Auto) Lymph # (Auto) [place] # (Auto) Eos # (Auto) Baso # (Auto) Immature Gran # (Auto) Basophilic Stippling Anisocytosis PT INR Sodium 139 Potassium 5.1 Chloride 106 Carbon Dioxide 23 Anion Gap 10.0 BUN 79 H Creatinine 3.30 H Est Cr Clr Drug Dosing 31.9 Est GFR ( Amer) 21.4 Est GFR (Non-Af Amer) 18.4 BUN/Creatinine Ratio 23.8 H Glucose 135 H POC Glucose 160 H Estimat Average Glucose 128 Hemoglobin A1c 6.1 H Calcium 8.8 Magnesium Total Bilirubin 0.4 AST 32 ALT 16 Alkaline Phosphatase 96 Total Protein 7.9 Albumin 2.7 L Globulin 5.2 H Albumin/Globulin Ratio 0.5 L 06/13/20 06/13/20 06/14/20 16:15 21:02 05:49 WBC RBC Hgb Hct MCV MCH MCHC RDW Std Deviation RDW Coeff of Neena Plt Count MPV Immature Gran % (Auto) Neut % (Auto) Lymph % (Auto) [place] % (Auto) Eos % (Auto) Baso % (Auto) Neut # (Auto) Lymph # (Auto) [place] # (Auto) Eos # (Auto) Baso # (Auto) Immature Gran # (Auto) Basophilic Stippling Anisocytosis PT 38.1 H INR 3.9 H Sodium Potassium Chloride Carbon Dioxide Anion Gap BUN Creatinine Est Cr Clr Drug Dosing Est GFR ( Amer) Est GFR (Non-Af Amer) BUN/Creatinine Ratio Glucose POC Glucose 158 H 154 H Estimat Average Glucose Hemoglobin A1c Calcium Magnesium Total Bilirubin AST ALT Alkaline Phosphatase Total Protein Albumin Globulin Albumin/Globulin Ratio 06/14/20 06/14/20 06/14/20 05:49 05:49 07:49 WBC 7.40 RBC 2.83 L Hgb 8.0 L Hct 25.8 L MCV 91.2 MCH 28.3 MCHC 31.0 L RDW Std Deviation 68.7 H RDW Coeff of Neena 20.7 H Plt Count 210 MPV 9.3 Immature Gran % (Auto) 0.5 Neut % (Auto) 70.2 Lymph % (Auto) 16.2 [place] % (Auto) 11.2 Eos % (Auto) 1.5 Baso % (Auto) 0.4 Neut # (Auto) 5.19 Lymph # (Auto) 1.20 [place] # (Auto) 0.83 H Eos # (Auto) 0.11 Baso # (Auto) 0.03 Immature Gran # (Auto) 0.04 H Basophilic Stippling 1+ Anisocytosis Present PT INR Sodium 138 Potassium 4.5 Chloride 103 Carbon Dioxide 28 Anion Gap 7.0 BUN 81 H Creatinine 3.24 H Est Cr Clr Drug Dosing 32.4 Est GFR ( Amer) 21.8 Est GFR (Non-Af Amer) 18.8 BUN/Creatinine Ratio 25.1 H Glucose 127 H POC Glucose 145 H Estimat Average Glucose Hemoglobin A1c Calcium 8.9 Magnesium 2.5 H Total Bilirubin 0.5 AST 26 ALT 13 Alkaline Phosphatase 91 Total Protein 7.6 Albumin 2.7 L Globulin 4.9 H Albumin/Globulin Ratio 0.6 L (1) Anemia Anemia type: unspecified type Qualified Code(s): D64.9 - Anemia, unspecified
--- NOTE | 2020-06-14 11:32 | Nephrology Progress Note ---
Date of Service June 14, 2020 Assessment & Plan (1) ELVI (acute kidney injury): Acute kidney injury secondary to exacerbation of failure, likely secondary to noncompliance of medications and UTI Renal functions been between 3.2-3.4. UOP has improved Agree with increasing the Lasix dose to 40 3 times daily, but we have to keep an eye on his alkalosis. It may be the limiting factor for diuresis Daily BMP and weights -Input and output. -Cardiology has ordered a vasculitic screen, will follow Difficult management to get a balance between the heart and kidney Daily review with adjustment of diuretic dose. (2) Acute and chronic respiratory failure: As above Continue on Lasix dose as above Cardiology on board. (3) UTI (urinary tract infection): Urine culture positive for Pseudomonas on ceftriaxone. -Would consider changing it to cefepime. Admission and Anticipated Discharge Date Admission Date: June 12, 2020 Subjective In mild respiratory distress but I think this is his baseline, on BiPAP Review of Systems Review of Systems: All systems reviewed & are unremarkable except as noted in HPI & below Physical Exam Physical Exam: GENERAL: The patient is morbidly obese, in mild distress.. HEENT: Oral mucosa moist. NECK: No neck masses seen, difficult due to assess JVP because of extreme obesity CARDIOVASCULAR: S1, S2 heard. Regular rate and rhythm, no murmur, no gallop. RESPIRATORY SYSTEM: Normal AP diameter. No accessory muscle use. No wheezing. Mild bibasilar crackles. ABDOMEN: Soft, bowel sounds present, nontender, no distention. Grossly obese. CENTRAL NERVOUS SYSTEM: Alert and oriented to name and place. EXTREMITIES: Bilateral lower extremity edema present. Chronic skin changes seen. Results & Data ([facility]) Vital Signs (Past 12 Hours) Vital Signs Temp Pulse Pulse Pulse Resp BP Pulse Ox 06/14/20 08:12 36.4 C L 53 L 18 117/57 L 99 06/14/20 07:13 60 18 95 06/14/20 03:36 36.3 C L 54 L 18 120/66 94 06/14/20 00:27 36.4 C L 53 L 18 116/46 L 98 06/14/20 00:22 58 L 58 L 16 90 Laboratory Results 06/14/20 05:49 06/14/20 05:49
[2020-06-14] MEDS ORDERED: PIPERACILL/TAZOBAC CONSULT ACTIVE PRN (15:13)
[2020-06-14] MEDS ORDERED: PIPERACILLIN/TAZOBACTAM 4.5 GM in DEXTROSE 5% 100 ML IV ONE (15:45)
[2020-06-14 15:49] LABS: Base Excess VBG -0.4 mEq/L; Oxygen Saturation VBG 88.6 %; pH VBG 7.26 (7.36-7.41)
[2020-06-14 16:02] LABS: Albumin Level 2.6 gm/dl (3.4-5.0); BUN Creatinine Ratio 25.3 (10-20); Calcium 8.5 mg/dl (8.5-10.1); Creatinine Clr Calc Pharmacy 31.7 ml/min; Est GFR (African American) 21.3; Est GFR (Non-African American) 18.4; Potassium 4.6 mmol/L (3.5-5.1)
[2020-06-14 16:05] LABS: Albumin Globulin Ratio 0.5 (0.9-2); Bilirubin,Total 0.4 mg/dl (0.2-1); Globulin 4.8 gm/dl (2.5-4.0); Total Protein 7.4 gm/dl (6.4-8.2)
[2020-06-14] MEDS: PIPERACILLIN/TAZOBACTAM 4.5 GM in DEXTROSE 5% 100 ML IV SCH (20:29)
[2020-06-14] MEDS: ATORVASTATIN 10 MG TAB PO SCH (20:30)
[2020-06-14] MEDS: INSULIN GLARGINE SOLOSTAR 100 UNITS/ML 3 ML PEN SC SCH (21:12)
[2020-06-15] MEDS ORDERED: LORazepam 0.25 MG/0.5 ML VIAL IV STA ×2 (00:12→03:30)
[2020-06-15] MEDS: LINZESS~ORDER AWAITING ACTION SCH ×2 (00:43→08:12)
[2020-06-15] MEDS: IPRATROPIUM BROMIDE NEB SOLN 0.02% 2.5 ML VIAL INH SCH ×4 (01:01→20:30)
[2020-06-15] MEDS: LEVALBUTEROL 1.25MG/0.5ML NEB INH SCH ×4 (01:01→20:30)
[2020-06-15] MEDS ORDERED: LORazepam 2 MG/4 ML VIAL ONE (03:46)
[2020-06-15] MEDS: PIPERACILLIN/TAZOBACTAM 4.5 GM in DEXTROSE 5% 100 ML IV SCH ×3 (04:27→19:58)
[2020-06-15] MEDS: LEVOTHYROXINE SODIUM 200 MCG TABLET PO SCH (06:21)
[2020-06-15] MEDS: LEVOTHYROXINE SODIUM 25 MCG TABLET PO SCH (06:21)
[2020-06-15] MEDS: NYSTATIN POWDER 15GM BTL EXT SCH ×2 (08:13→21:38)
[2020-06-15] MEDS: INSULIN ASPART 100 UNITS/ML 3 ML PEN SC SCH ×4 (08:13→19:59)
[2020-06-15] MEDS: FUROSEMIDE 40 MG in SYRINGE 0 ML IV SCH (08:14)
[2020-06-15 08:30] LABS: Basophils # (auto) 0.03 K/uL (0-0.2); Basophils % (auto) 0.3 %; Eosinophils # (auto) 0.13 K/uL (0-0.5); Eosinophils % (auto) 1.5 %; Immature Granulocytes # (auto) 0.07 K/uL (0.00-0.02); Immature Granulocytes % (auto) 0.8 %; Lymphocytes # (auto) 1.08 K/uL (1.2-3.4); Lymphocytes % (auto) 12.5 %; Mean Corpuscular Hemoglobin 28.2 pg (25-34); Mean Corpuscular Hgb Conc 30.8 g/dL (32-36); Mean Corpuscular Volume 91.5 fL (80-100); Mean Platelet Volume 9.2 fL (7.4-10.4); Monocytes # (auto) 0.98 K/uL (0.11-0.59); Monocytes % (auto) 11.3 %; Neutrophils # (auto) 6.37 K/uL (1.4-6.5); Neutrophils % (auto) 73.6 %; Nucleated RBC # (auto) 0.02 K/uL (0-0); Nucleated RBC % (auto) 0.2 %; Platelet Count 207 K/uL (130-400); RDW Coefficient of Variation 20.9 % (11.5-14.5); RDW Standard Deviation 68.9 fL (36.4-46.3); Red Blood Count 2.84 M/uL (4.7-6.1); White Blood Count 8.66 K/uL (4.8-10.8)
[2020-06-15 08:43] LABS: INR 2.7 (0.9-1.1); Prothrombin Time 26.6 Seconds (9.0-12.0)
[2020-06-15 08:52] LABS: Anisocytosis Present; Polychromasia 1+
[2020-06-15 09:00] LABS: Albumin Level 2.8 gm/dl (3.4-5.0); BUN Creatinine Ratio 23.3 (10-20); Calcium 8.9 mg/dl (8.5-10.1); Creatinine Clr Calc Pharmacy 29.7 ml/min; Est GFR (African American) 19.9; Est GFR (Non-African American) 17.2; Magnesium 2.5 mg/dl (1.8-2.4); Potassium 4.5 mmol/L (3.5-5.1)
[2020-06-15] MEDS ORDERED: ICU PROTOCOL FOR HYPERGLYCEMIA PRN (09:00)
[2020-06-15 09:03] LABS: Albumin Globulin Ratio 0.6 (0.9-2); Bilirubin,Total 0.9 mg/dl (0.2-1); Globulin 4.9 gm/dl (2.5-4.0); Total Protein 7.7 gm/dl (6.4-8.2)
--- NOTE | 2020-06-15 09:18 | Hospitalist Progress Note ---
Date of Service June 15, 2020 Assessment & Plan (1) Acute and chronic respiratory failure: Acute on chronic right heart failure Obstructive sleep apnea on BiPAP Chronic obstructive pulmonary disease Morbid Obesity Bilateral Pleural Effusions -This is a morbidly obese patient with multiple reasons for acute on chronic respiratory failure. Back in previous hospitalization, patient had 05/17/2020 CT scan that visualized well the bilateral pleural effusions for which the right sided lung durant had more effusion than the left in addition to other known health issues. -as per the 06/12/2020 ED notes that patient "presents to the ER with about 3 or 4 days of shortness of breath. Today, his brother thought he seemed more confused. The ambulance was called. Patient was on BiPAP when the ambulance arrived. He had a low O2 saturation of around 89% on 4 L, the patient typically wears 2.5 L on a daily basis." -[place] [address] pg/ml -his admission 06/12/2020 admission CXR "Moderate right pleural effusion is noted. There is no pneumothorax. There is a small left pleural effusion. Asymmetric right hemithorax opacification is noted. In part, this is due to the pleural effusion. Patient is rotated. Cardiomegaly is noted. There is suspected mild pulmonary edema. Findings have slightly progressed since prior exam" -Patient's home medication of oral Lasix 80 mg BID has been changed by admitting physician Dr. Ingram to 60 mg IV q12 hours while having patient on BIPAP -hospitalist have modified the Lasix dosing on 06/14/2020 as 40 mg IV TID however nursing reported generally low urine output Acute metabolic encephalopathy on admission -his mental status may wax and wane due to the breathing issues, BIPAP with sleep or somnolence has been given -06/15/2020: patient is more somnolent this day time, apparently he received ativan by night time hospitalist for agitation, have discussed concerns of acute respiratory failure which may require intubation if his condition does not improve. ICU Dr. Huynh accept patient to ICU for further monitoring. will keep patient NPO for now until ICU re-assessment Bradycardia on admission -holding beta blockers at this time, (of note that his previous hospitalization had listed amiodarone but not currently active on current home med list ) his amiodarone from previous hospitalization has not been given on this admission History of paroxysmal ventricular tachycardia History of atrial flutter Chronic anticoagulation with coumadin -mildly elevated INR on presentation as 3.3. hold coumadin for now Acute kidney injury on chronic kidney disease stage III -Baseline creatinine around 1.2 to 1.4 but this admission creatinine of 3.2. -doubt there is a urinary tract infection but admitting physician started ceftriaxone for those concerns and would appear to be reasonably to continue antibiotics while patient has a huang in the hospital and changes to creatinine -as of 06/14/2020, so far the creatinine stable between 3.2 to 3.3 while on IV Lasix -as of 06/15/2020: creatinine is 3.5 Hypertension -hold the oral home dose hydralazine and statin Diabetes Mellitus Type 2 with [facility] current use of insulin -has been on insulin, monitor blood sugar, while in ICU Gastroesophageal reflux disease -Continue Protonix Hypothyroidism -home dose oral synthroid to be held for now. TSH normal Depression -hold oral fluoxetine for now Admission and Anticipated Discharge Date Admission Date: June 12, 2020 Subjective -06/15/2020: patient is more somnolent this day time, apparently he received ativan by night time hospitalist for agitation, have discussed concerns of acute respiratory failure which may require intubation if his condition does not im prove. ICU Dr. Huynh accept patient to ICU for further monitoring. will keep patient NPO for now until ICU re-assessment Review of Systems Review of Systems: Unobtainable due to cognitive status Physical Exam Constitutional: + obese Eyes: PERRL, conjunctivae normal, anicteric sclerae EOM intact bilaterally ENMT: external ear and nose normal, oropharynx normal Neck: normal visual inspection Respiratory: + labored breathing (on BIPAP) Cardiovascular: Rate/Rhythm: regular rate Gastrointestinal (Abdomen): Percussion/Palpation: abdomen soft Musculoskeletal: Head/Neck/Chest: normocephalic and head atraumatic Neurologic: PERRL, EOMI, accommodation nl, no face palsy, no dysarthria Psychiatric: A+Ox3, euthymic affect Genitourinary: + bladder abnormality (has huang) Results & Data Results & Data ([facility]) Vital Signs (Past 12 Hours) Vital Signs Temp Pulse Pulse Pulse Resp BP BP 06/15/20 07:21 77 77 22 06/15/20 03:22 60 24 06/15/20 03:04 36.7 C 61 22 134/72 06/15/20 01:02 60 59 L 24 06/14/20 23:00 36.3 C L 59 L 18 107/55 L Pulse Ox 06/15/20 07:21 84 L 06/15/20 03:22 95 06/15/20 03:04 93 06/15/20 01:02 95 06/14/20 23:00 90
--- NOTE | 2020-06-15 10:26 | Nephrology Progress Note ---
Date of Service June 15, 2020 Assessment & Plan (1) ELVI (acute kidney injury): Acute kidney injury likely multifactorial including ATN in setting of Pseudomonas UTI and cardiorenal syndrome. Urine output is dropping off. Patient was +650 in the past 24 hours. -We will give Lasix 120 mg bolus and Lasix drip at 20 mg/h. -Daily BMP and weights -Input and output. (2) Acute and chronic respiratory failure: Acute CHF exacerbation. Patient is on BiPAP. Continue on Lasix dose as above Cardiology on board. (3) UTI (urinary tract infection): Urine culture positive for Pseudomonas on zosyn renally dose. Admission and Anticipated Discharge Date Admission Date: June 12, 2020 Subjective Seen in follow-up for acute kidney injury. Patient remains hypoxic on BiPAP. He complains of shortness of breath. Patient is restless. Does not give much history. Review of Systems Review of Systems: Unable to obtain due to BiPAP and restlessness Physical Exam Physical Exam: General exam: Patient is restless trying to pull off the BiPAP mask HEENT: Pupils are equal and reactive to light Neck: No JVD, neck is supple trachea is midline Respiratory system: Wheezing bilaterally. Gastrointestinal: Abdomen is soft, non distended, non tender, bowel sounds are present CVS: Regular rate and rhythm. No murmurs, rubs or gallops Musculoskeletal: No joint or muscle tenderness Extremities: Non tender, 1+ edema, peripheral pulses are present Neuro: Oriented x1, no tremors, no focal neurological deficits Skin: No rashes Results & Data ([facility]) Vital Signs (Past 12 Hours) Vital Signs Temp Pulse Pulse Pulse Resp BP BP 06/15/20 10:00 77 06/15/20 09:57 72 06/15/20 09:51 61 25 H 06/15/20 09:00 64 06/15/20 08:30 63 06/15/20 08:03 68 06/15/20 07:30 65 06/15/20 07:21 77 77 22 06/15/20 07:00 67 06/15/20 06:30 60 06/15/20 06:00 68 06/15/20 05:30 65 06/15/20 05:00 62 06/15/20 04:30 59 L 06/15/20 04:00 60 06/15/20 03:30 60 06/15/20 03:22 60 24 06/15/20 03:04 36.7 C 61 22 134/72 06/15/20 03:00 61 06/15/20 02:30 58 L 06/15/20 02:00 87 06/15/20 01:30 61 06/15/20 01:02 60 59 L 24 06/15/20 01:00 60 06/15/20 00:59 66 06/15/20 00:00 56 L 06/14/20 23:30 57 L 06/14/20 23:17 59 L 06/14/20 23:00 36.3 C L 59 L 18 107/55 L 06/14/20 22:30 57 L Pulse Ox 06/15/20 10:00 92 06/15/20 09:57 95 06/15/20 09:51 95 06/15/20 09:00 06/15/20 08:30 06/15/20 08:03 06/15/20 07:30 06/15/20 07:21 84 L 06/15/20 07:00 06/15/20 06:30 06/15/20 06:00 06/15/20 05:30 06/15/20 05:00 06/15/20 04:30 06/15/20 04:00 06/15/20 03:30 06/15/20 03:22 95 06/15/20 03:04 93 06/15/20 03:00 06/15/20 02:30 06/15/20 02:00 06/15/20 01:30 06/15/20 01:02 95 06/15/20 01:00 06/15/20 00:59 06/15/20 00:00 06/14/20 23:30 06/14/20 23:17 06/14/20 23:00 90 06/14/20 22:30 Laboratory Results 06/15/20 07:58 06/14/20 06/15/20 06/15/20 15:34 07:58 07:58 WBC 8.66 RBC 2.84 L MCV 91.5 MCH 28.2 MCHC 30.8 L RDW Std Deviation 68.9 H RDW Coeff of Neena 20.9 H Plt Count 207 MPV 9.2 Albumin 2.6 L 2.8 L
[2020-06-15] MEDS: FUROSEMIDE 100 MG in DEXTROSE 5% 90 ML IV SCH ×3 (10:53→19:58)
[2020-06-15] MEDS ORDERED: FUROSEMIDE 120 MG in SYRINGE 0 ML IV ONE (11:00)
--- NOTE | 2020-06-15 12:04 | Cardiology Progress Note ---
Date of Service June 15, 2020 Assessment & Plan (1) Sinus bradycardia: (2) Tachycardia-bradycardia syndrome: (3) Acute on chronic renal failure: (4) Acute on chronic right heart failure: (5) Acute on chronic respiratory failure with hypoxia and hypercapnia: (6) SOB (shortness of breath): (7) Anemia: 64-year-old patient admitted with acute on chronic respiratory failure, acute on chronic diastolic/right-sided heart failure, with acute on chronic renal insufficiency. Patient has received a 120 mg IV bolus of Lasix today. Agree with IV Lasix infusion as per direction of nephrology at this time. Maintain negative fluid balance as renal function tolerates. Replace electrolytes as indicated. In regard to patient's history of paroxysmal atrial fibrillation. Telemetry/ECG demonstrates sinus rhythm/sinus bradycardia with a bundle branch block. INR remains therapeutic. AV rakesh blocking agents on hold due to presence of bradycardia since admission. No overt indication for pacemaker implantation currently. Management of BiPAP and respiratory insufficiency acutely as per critical care. Poor prognosis. Admission and Anticipated Discharge Date Admission Date: June 12, 2020 Subjective Patient seen and examined the bedside. Transferred to ICU today due to confusion and tachypnea. Currently on BiPAP. Awake answering some questions ap propriately. Edema unchanged. Urine output has declined over the past 24 hours with a positive fluid balance. Telemetry demonstrates sinus rhythm with a bundle branch block. No sustained dysrhythmias. No evidence of recurrent atrial fibrillation. Renal function unchanged. Review of Systems Review of Systems: Unobtainable due to cognitive status Physical Exam Constitutional: well developed, + ill appearing and + morbidly obese Respiratory: normal respiratory effort; no respiratory distress, no labored breathing and no retractions Auscultation: + diminished lung sounds (Bilateral, poor effort) and + wheezes (End expiratory wheeze bilateral); no crackles, no rales and no rhonchi Cardiovascular: Rate/Rhythm: regular rate, regular rhythm and + bradycardic Heart Sounds: normal S1 and normal S2; no murmur and no cardiac rub Vessels: no JVD (Difficult to assess due to body habitus) and no carotid bruit Extremities: + edema (2+ bilateral lower extremity pitting edema up to the mid abdomen) Gastrointestinal (Abdomen): Inspection/Auscultation: normal bowel sounds and + abdominal edema Percussion/Palpation: abdomen nontender, no guarding and abdomen not rigid Skin: + ecchymosis (Right upper extremity) Neurologic: moves all extremities; no focal motor deficits Psychiatric: Orientation: alert and oriented x 3 Apperance: + disheveled Results & Data ([facility]) Vital Signs (Past 12 Hours) Vital Signs Temp Pulse Pulse Pulse Resp BP BP 06/15/20 11:06 36.6 C 06/15/20 11:00 55 L 06/15/20 10:36 147/93 H 06/15/20 10:30 60 06/15/20 10:12 63 136/108 H 06/15/20 10:11 55 L 06/15/20 10:10 66 42/34 L 06/15/20 10:00 77 06/15/20 09:57 72 06/15/20 09:51 61 25 H 06/15/20 09:00 64 06/15/20 08:30 63 06/15/20 08:03 68 06/15/20 07:30 65 06/15/20 07:21 77 77 22 06/15/20 07:00 67 06/15/20 06:30 60 06/15/20 06:00 68 06/15/20 05:30 65 06/15/20 05:00 62 06/15/20 04:30 59 L 06/15/20 04:00 60 06/15/20 03:30 60 06/15/20 03:22 60 24 06/15/20 03:04 36.7 C 61 22 134/72 06/15/20 03:00 61 06/15/20 02:30 58 L 06/15/20 02:00 87 06/15/20 01:30 61 06/15/20 01:02 60 59 L 24 06/15/20 01:00 60 06/15/20 00:59 66 06/15/20 00:00 56 L Pulse Ox 06/15/20 11:06 06/15/20 11:00 97 06/15/20 10:36 84 L 06/15/20 10:30 80 L 06/15/20 10:12 93 06/15/20 10:11 06/15/20 10:10 93 06/15/20 10:00 92 06/15/20 09:57 95 06/15/20 09:51 95 06/15/20 09:00 06/15/20 08:30 06/15/20 08:03 06/15/20 07:30 06/15/20 07:21 84 L 06/15/20 07:00 06/15/20 06:30 06/15/20 06:00 06/15/20 05:30 06/15/20 05:00 06/15/20 04:30 06/15/20 04:00 06/15/20 03:30 06/15/20 03:22 95 06/15/20 03:04 93 06/15/20 03:00 06/15/20 02:30 06/15/20 02:00 06/15/20 01:30 06/15/20 01:02 95 06/15/20 01:00 06/15/20 00:59 06/15/20 00:00 (1) Anemia Anemia type: unspecified type Qualified Code(s): D64.9 - Anemia, unspecified
[2020-06-15] MEDS ORDERED: STAT IV Infusion **Titration per Protocol STA (14:23)
[2020-06-15] MEDS ORDERED: DOBUTamine / D5W 500mg/250mL Premixed Bag IV PRN (14:30)
--- NOTE | 2020-06-15 14:44 | Critical Care Consultation ---
Date of Consultation June 15, 2020 Assessment & Plan (1) Admitted to intensive care unit: Reason Critically Ill: Mr. 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 His progressive SOB is likely secondary to acute on chronic hypercapnia, secondary to OHS. Patient also appeared to be be cardiopulmonary volume overload on arrival. He is currently being diuresed with IV Lasix (120mg bolus this am + drip at rate of 20mg/hr). Patient also with acute on chronic kidney injury - currently in cardiorenal syndrome (poor forward flow and R sided CHF causing diminished venous return). As for his confusion, likely secondary to hypercapnia, acutely worsened by Ativan administration overnight (vs. ensuing sepsis secondary to pseudomonal UTI). He was transferred to the ICU for close monitoring in the setting of worsening respiratory status and somnolence. At present, he is afebrile; bradycardic in low 50s, normotensive, saturating 96% on BiPAP. In an attempt to increase cardiac output (for improved end-organ perfusion), we will add dobutamine for inotropic effect. Although IV would improve stroke volume, patient is volume overloaded. Neuro: [facility] ICU: Positive * Encephalopathy: patient admitted with confusion on 06/13, with acute worsening overnight - Head CT on admission negative; anatomic etiology unlikely - Na normal. Ca normal. glucose normal. TSH normal. ammonia level ordered. - patient with UTI + evidence of end-organ hypoperfusion (elevated Cr, AMS) which could be secondary to sepsis. Continue Zosyn. Lactate level ordered. - likely secondary to hypercapnia (related to obesity hypoventilation syndrome). Repeat ABG. If patiently is persistent hypercapnic, will consider intubation. - acute worsening this morning likely secondary to Ativan administration overnight. Recommend no further benzodiazepine use. No opioid use. * Myoclonic jerks - frequent on exam - possibly secondary to hypercapnia vs. uremia (BUN at 82) - dobutamine drip as above - BiPAP as above * Hx Depression - hold home fluoxetine while NPO Cardiac: * Bradycardia - on chart review, appears to be chronic - hold home metoprolol - starting dobutamine (positive inotropic agent) with intent to increase cardiac output - cardiology following * Hx Diastolic CHF - Echo 06/13 was technically limited due to body habitus. LV ejection fraction not able to be measured. RV was moderately dilated RV systolic function normal (per TAPSE). Elevated pulmonary artery pressures (suspect secondary to uncontrolled OHS/SAFIA) - hold home metoprolol due to bradycardia * Hx of Atrial Fibrillation - on anticoagulation with Coumadin - INR at 2.7 today - holding metoprolol as above * Hyperlipidemia - holding home atorvastatin while NPO * Hx Hypertension - holding home hydralazine and metoprolol - repeat troponin and EKG in setting of systemic hypoperfusion to assess for signs of ischemia Respiratory: * Acute on chronic hypercapnia - possible etiology of encephalopathy - patient with history of obesity hypoventilation syndrome and/or SAFIA - on home BiPAP therapy - repeat ABG. If hypercapnia persists, will consider intubation * Respiratory Acidosis with mild gapped acidosis - pH 7.31. Bicarb 26. pCO2 58. - AG 12. Lactate pending. May be secondary to uremia. - BiPAP as above - repeat ABG - consider intubation if patient remains hypercapnic * Pulmonary Hypertension - elevated pulmonary artery pressures on echo 06/13/20 - likely secondary to obesity hypoventilation syndrome and/or SAFIA - compliance with home BiPAP unknown - poor end-organ perfusion (AMS, elevated Cr) likely the result of reduced forward flow * Pleural Effusion - moderate R pleural effusion (this is chronic) - suspect secondary to diastolic CHF (from pulmonary HTN) - IV lasix as above - patient is poor candidate for thoracentesis given body habitus * Hx of COPD - unclear if patient ever had formal PFTs - does report 21 pack year history - continue home ipratropium and albuterol neb q6 prn GI: * GERD - continue protonix - NPO RENAL/LYTES: * Acute on Chronic Kidney Injury - baseline Cr 1.2-1.4 - Cr at 3.5 today - BUN at 82, ratio of 23 - oliguric (250ml of urine output today) - suspect secondary to ATN given pseudomonal UTI and cardiorenal syndrome (poor forward flow, reduced venous return) - nephrology following - trend BMP : - Block in place, strict I/Os ENDO: * Type II diabetes Mellitus - A1c at goal at 6.1 on06/13/20 - pharmacy glycemic consult - ICU protocol for hypoglycemia * Hypothyroidism - TSH WNL - continue home dose levothyroxine HEME: * Normocytic Anemia - Hgb 8.0, MCV 91 (baseline Hgb ~9) - iron level low at 18 on 05/28/20 - hold home iron supplement in setting of active infection ID: * UTI - Urine culture obtained 06/12/20 growing frey sensitive pseudomonas - patient afebrile. WBC normal. procal pending. - blood cultures showing no growth through 48 hours - patient does have signs of end organ damage (elevated Cr, AMS), may be secondary to the above etiologies vs. sepsis. Ordered Lactate level. - continue Zosyn (day 2) - Nasal MRSA neg LINES/IV ACCESS: Block CODE STATUS: Full DVT PROPHYLAXIS: therapeutic on Coumadin Thank you for allowing us to participate in the care of this patient. Please refer to my attending physician's documentation for any further recommendations. Supervising Physician Co-Signing Physician Notes Dr. Mehta was the resident-physician during care of patient. I separately evaluated patient for mota portions of the history and the exam. I was present during the critical portion of medical decision making, and I discussed the case with the resident. I generally agree with the findings and plan except for any additions/exceptions noted. 64-year-old male with a history of pulmonary hypertension secondary to OHS/SAFIA, CKD, morbid obesity and diastolic heart failure who was transferred to the ICU due to increasing metabolic encephalopathy, hypoxic respiratory failure and bradycardia. Patient was not responding to IV bolus doses of Lasix. He was started on a Lasix drip and on BiPAP. Recent ABG is demonstrating improving hypercapnia. Continue BiPAP therapy at this time. I am starting him on dobutamine to hopefully improve perfusion to his kidneys as I suspect he likely has cardiorenal failure related to pulmonary hypertension. His urine output appears to be improved with dobutamine. Continue Zosyn for pseudomonal UTI. Appreciate cardiology and nephrology input. Continue warfarin for history of atrial fibrillation. Monitor for tachyarrhythmia closely given that he is on dobutamine. I have personally spent 46 minutes of critical care time in the direct management of this patient. This is a life/limb threatening event. This includes time spent evaluating patient, direct bedside care, chart review, placing orders, interpretation of diagnostic studies, discussion with consultants, patient, and/or family members regarding treatment decisions, as well as other required patient management activities. This time is exclusive of all separately billable procedures, and teaching time and separate from and in addition to any other critical care service time. History of Present Illness Attending Physician: Rai Campo MD History of Present Illness Mr. 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 On arrival he was immediately placed on BiPAP. Work-up suggested acute on chronic hypercapnia and cardiopulmonary volume overload, as BNP was > 12,000 on admission and chest Xray showed bilateral pleural effusions. He was started on IV Lasix 60mg BID, which was subsequently changed to 40mg TID. Patient subsequently developed acute on chronic kidney injury, likely from poor forward flow and IV diuretic therapy. Overnight, patient was given 0.5mg Ativan for agitation, after which he became increasingly somnolent and stopped following commands. [facility] Hospitalist Rai Campo MD contacted ICU staff asking for consultation regarding his worsening respiratory and cognitive status. Allergies Allergy/AdvReac Type Severity Reaction Status Date / Time pollen extracts Allergy Mild sneezing/watery Verified 06/12/20 21:21 eyes Home Medications Medication Instructions Recorded Confirmed Type atorvastatin 10 mg PO HS 10/24/18 06/12/20 History levothyroxine 25 mcg PO QAM 10/24/18 06/12/20 History levothyroxine 200 mcg PO QAM 10/24/18 06/12/20 History metoprolol succinate 25 mg PO QAM 10/24/18 06/12/20 History pantoprazole 40 mg tablet,delayed 40 mg PO BID 02/11/19 06/12/20 History release albuterol sulfate 2 puff INHALATION QID 11/29/19 06/12/20 History fluoxetine 10 mg PO DAILY 11/29/19 06/12/20 History hydralazine 50 mg PO QID 11/29/19 06/12/20 History insulin aspart U-100 [Novolog 1 sliding scale dose SUBCUT TID 11/29/19 06/12/20 History U-100 Insulin aspart] Anoro Ellipta 1 ea INHALATION DAILY #14 ea 12/05/19 06/12/20 Rx Calmoseptine 1 applic TOPICAL TID PRN 05/17/20 06/12/20 History fluticasone propionate 2 spray INTRANASAL DAILY 05/17/20 06/12/20 History furosemide 80 mg PO BID 05/17/20 06/12/20 History gabapentin 100 mg PO TID 05/17/20 06/12/20 History linaclotide 145 mcg PO QAM 05/17/20 06/12/20 History nystatin 1 applic TOPICAL BID 05/17/20 06/12/20 History tramadol 50 mg PO BID 05/17/20 06/12/20 History tramadol 50 mg PO Q4 PRN 05/17/20 06/12/20 History warfarin 1 - 2 mg PO DAILY 05/17/20 06/12/20 History insulin glargine [Lantus Solostar 10 unit SC HS #3 ml 05/21/20 06/12/20 Rx U-100 Insulin] sodium chloride [Saline Nasal Mist] 1 spray INTRANASAL BID PRN 06/12/20 06/12/20 History vitamin B [id number] cit 1 tab PO DAILY 06/12/20 06/12/20 History Patient History Medical History (Updated 06/15/20 @ 14:54 by Tanvi Mehta MD) Anemia Chronic diastolic heart failure COPD (chronic obstructive pulmonary disease) inhalers daily/prn and oxygen 2L n/c Diabetes mellitus, type 2 Elevated troponin I level Graves disease History of gastric ulcer Hyperlipidemia Hypertension Hypothyroidism Hypoxia Left bundle branch block chronic Morbid obesity with BMI of 50.0-59.9, adult Obesity hypoventilation syndrome On home oxygen therapy 2L N/C at all times SAFIA (obstructive sleep apnea) cpap--2L oxygen Surgical History History of angioplasty 2003 @ [facility] [place]--no stents History of colonoscopy History of endoscopic sinus surgery History of esophagogastroduodenoscopy (EGD) History of tooth extraction History of wisdom tooth extraction S/P correction of deviated nasal septum Family History Mother Diabetes Hypertension Brother , dies at 44 yo from [place] Heart disease Other No family history of adverse response to anesthesia Social History Smoking Status: Current some day smoker Tobacco Type: Cigarettes Years Smoked: 60; Cigarettes Per Day: 4; Second Hand Exposure: Yes; Hx Alcohol Use: No Hx Substance Use: No Preferred Language: [place] Island[place] Communication Ability: Impaired Conflict Resolution Professional Required: Voice Beliefs That Will Affect Care: None marital status: Single Current Living Situation: Family Current Living Situation Comment: Lives with Brother current occupational status: unemployed Other Information That Helps Us Care for You: No Feels Safe at Home: Yes Safety Concerns: Feels Safe At This Time Assistive Devices: BiPap Review of Systems Constitutional: no fever Respiratory: no cough Cardiovascular: no chest pain Gastrointestinal: no abdominal pain, no nausea and no vomiting Physical Exam Constitutional: + morbidly obese On BiPAP Eyes: + anicteric sclerae ENMT: external ear and nose normal, oropharynx normal Neck: normal visual inspection and trachea midline Respiratory: no cough Auscultation: + diminished lung sounds and + wheezes (diffusely throughout) Cardiovascular: Rate/Rhythm: regular rhythm and + bradycardic Heart Sounds: normal S1 and normal S2; no murmur and no cardiac rub Vessels: no JVD and no carotid bruit Extremities: + pedal edema (+2 bilaterally to the thigh) Heart sounds distant Gastrointestinal (Abdomen): normal bowel sounds, soft, nontender, no hepatosplenomegaly Skin: no rashes, warm and dry Neurologic: Does not follow commands. At times answers questions, although difficult to appreciate answers/words due to BiPAP mask in place Genitourinary: Block catheter in place, draining yellow urine without visible blood clots Results & Data Results & Data ([facility]) Vital Signs (Past 12 Hours) Vital Signs Temp Pulse Pulse Pulse Resp BP BP 06/15/20 14:22 57 L 22 06/15/20 14:06 52 L 18 06/15/20 11:06 36.6 C 06/15/20 11:00 55 L 06/15/20 10:36 147/93 H 06/15/20 10:30 60 06/15/20 10:12 63 136/108 H 06/15/20 10:11 55 L 06/15/20 10:10 66 42/34 L 06/15/20 10:00 77 06/15/20 09:57 72 06/15/20 09:51 61 25 H 06/15/20 09:00 64 06/15/20 08:30 63 06/15/20 08:03 68 06/15/20 07:30 65 06/15/20 07:21 77 77 22 06/15/20 07:00 67 06/15/20 06:30 60 06/15/20 06:00 68 06/15/20 05:30 65 06/15/20 05:00 62 06/15/20 04:30 59 L 06/15/20 04:00 60 06/15/20 03:30 60 06/15/20 03:22 60 24 06/15/20 03:04 36.7 C 61 22 134/72 06/15/20 03:00 61 Pulse Ox 06/15/20 14:22 92 06/15/20 14:06 98 06/15/20 11:06 06/15/20 11:00 97 06/15/20 10:36 84 L 06/15/20 10:30 80 L 06/15/20 10:12 93 06/15/20 10:11 06/15/20 10:10 93 06/15/20 10:00 92 06/15/20 09:57 95 06/15/20 09:51 95 06/15/20 09:00 06/15/20 08:30 06/15/20 08:03 06/15/20 07:30 06/15/20 07:21 84 L 06/15/20 07:00 06/15/20 06:30 06/15/20 06:00 06/15/20 05:30 06/15/20 05:00 06/15/20 04:30 06/15/20 04:00 06/15/20 03:30 06/15/20 03:22 95 06/15/20 03:04 93 06/15/20 03:00 Resident Activity Tracking Resident Involvement: Resident Care Provided Care Provided: Adult Hospital Medicine
[2020-06-15] MEDS ORDERED: PHARMACY GLYCEMIC MGMT CONSULT PRN (14:49)
--- NOTE | 2020-06-15 15:02 | Pharmacy Report ---
Pharmacy Glycemic Short Note 2 - Date of Service June 15, 2020 - Glycemic Short BSG Results (Last 24 hours): 06/14/20 06/14/20 06/14/20 15:34 16:21 20:19 Glucose 190 H POC Glucose 234 H 236 H 06/15/20 06/15/20 06/15/20 07:49 07:58 12:12 Glucose 169 H POC Glucose 179 H 184 H OUTPATIENT ANTIDIABETIC REGIMEN: * Lantus 10 units Q HS * Novolog 12 unjits w/ breakfast + 12 units w/ lunch + 14 units w/ dinner * A1c = 6.1% 06/13/20 ASSESSMENT: * Patient admitted to ICU for ADHF, resp distress, worsening mental status and ELVI * BSGs have been > 140 x 2, as a result ICU hyperglycemia protocol has triggered pharmacy consult * Patient is now receiving inodilator support, furosemide drip and Zosyn for possible UTI +/- pulm infxn * He is currently NPO, however fasting BSGs are elevated > 180 * Given NPO and uncertain insulin needs w/ changing stressors will initiate SQ basal/bolus regimen that will utilize Novolog to provide a portion of the "basal" insulin needs to lessen the risk of prolonged hypoglycemia with larger Lantus doses. PLAN FOR INPATIENT GLYCEMIC CONTROL: * Basal insulin * Lantus SQ BID per scale * 0 units if BSG less than 110 * 5 units if BSG 110 or greater * Bolus insulin * NovoLog per scale Q 4 hrs: PLAN FOR DISCHARGE: * may resume outpt insulin regimen on discharge if no report of frequent hypoglycemic episodes
[2020-06-15 16:09] LABS: iSTAT Allen Test Pass; iSTAT Art Bld Gas pCO2 Correct 56 mmHg (35-46); iSTAT Art Bld Gas pH Corrected 7.325 (7.35-7.45); iSTAT Arterial Blood Gas HCO3 29 meg/L (19-24); iSTAT Arterial Blood Gas pCO2 58 mmHg (35-46); iSTAT Arterial Blood Gas pH 7.31 (7.35-7.45); iSTAT Arterial Blood Gas pO2 87 mmHg (80-95); iSTAT Arterial Blood Gas pO2 C 83; iSTAT Carbon Dioxide 31 mmol/L (24-31); iSTAT FiO2 30 %; iSTAT Hematocrit 23 % (42-52); iSTAT Hemoglobin 7.8 g/dl (14.0-18.0); iSTAT Potassium 4.4 mmol/L (3.3-5.0); iSTAT Site L Radial; iSTAT Sodium 138 mmol/L (135-144)
[2020-06-15] MEDS: hydrALAZINE TAB 50 MG TAB PO SCH (16:16)
[2020-06-15] MEDS: UMECLIDINIUM/VILANTEROL 62.5/25MCG 7 PUFFS/INHALER INH SCH (16:16)
[2020-06-15] MEDS: PANTOprazole 40 MG TAB PO SCH (16:17)
[2020-06-15] MEDS: GABAPENTIN 100 MG CAP PO SCH (16:17)
[2020-06-15] MEDS: traMADol HCL 50 MG TABLET PO SCH (16:17)
[2020-06-15] MEDS: FLUoxetine HCL 10 MG CAP PO SCH (16:17)
[2020-06-15] MEDS: FLUTICASONE PROPIONATE NA SPR 16 GM BTL SCH (16:17)
[2020-06-15] MEDS: VITAMIN B COMPLEX TAB PO SCH (16:18)
--- NOTE | 2020-06-15 16:43 | Billing Data ---
Date of Service June 15, 2020 Coding Level of Care Code Critical Care 1st 30-74 mins Time Spent (min) 46
[2020-06-15 17:39] LABS: Calcium 8.9 mg/dl (8.5-10.1); Est GFR (African American) 20.1; Est GFR (Non-African American) 17.4; Potassium 4.3 mmol/L (3.5-5.1)
[2020-06-15] MEDS: INSULIN GLARGINE SOLOSTAR 100 UNITS/ML 3 ML PEN SC SCH (21:38)
[2020-06-16] MEDS: INSULIN ASPART 100 UNITS/ML 3 ML PEN SC SCH ×7 (00:04→23:58)
[2020-06-16] MEDS: IPRATROPIUM BROMIDE NEB SOLN 0.02% 2.5 ML VIAL INH SCH ×4 (00:33→20:30)
[2020-06-16] MEDS: LEVALBUTEROL 1.25MG/0.5ML NEB INH SCH ×4 (00:33→20:30)
[2020-06-16] MEDS: FUROSEMIDE 100 MG in DEXTROSE 5% 90 ML IV SCH ×5 (01:02→21:25)
[2020-06-16] MEDS: PIPERACILLIN/TAZOBACTAM 4.5 GM in DEXTROSE 5% 100 ML IV SCH ×3 (04:05→20:25)
[2020-06-16 04:45] LABS: iSTAT Allen Test Pass; iSTAT Arterial Blood Gas HCO3 27 meg/L (19-24); iSTAT Arterial Blood Gas pCO2 52 mmHg (35-46); iSTAT Arterial Blood Gas pH 7.33 (7.35-7.45); iSTAT Arterial Blood Gas pO2 55 mmHg (80-95); iSTAT Carbon Dioxide 28 mmol/L (24-31); iSTAT FiO2 30 %; iSTAT Site L Radial
[2020-06-16 05:03] LABS: Basophils # (auto) 0.05 K/uL (0-0.2); Basophils % (auto) 0.7 %; Eosinophils # (auto) 0.13 K/uL (0-0.5); Eosinophils % (auto) 1.9 %; Hemoglobin 7.1 g/dL (14.0-18.0); Immature Granulocytes # (auto) 0.04 K/uL (0.00-0.02); Immature Granulocytes % (auto) 0.6 %; Lymphocytes # (auto) 1.07 K/uL (1.2-3.4); Lymphocytes % (auto) 15.9 %; Mean Corpuscular Hgb Conc 30.9 g/dL (32-36); Mean Corpuscular Volume 90.6 fL (80-100); Mean Platelet Volume 11.3 fL (7.4-10.4); Monocytes # (auto) 0.67 K/uL (0.11-0.59); Monocytes % (auto) 9.9 %; Neutrophils # (auto) 4.78 K/uL (1.4-6.5); Platelet Count 227 K/uL (130-400); RDW Coefficient of Variation 21.3 % (11.5-14.5); RDW Standard Deviation 70.1 fL (36.4-46.3); Red Blood Count 2.54 M/uL (4.7-6.1); White Blood Count 6.74 K/uL (4.8-10.8)
[2020-06-16 05:35] LABS: Anisocytosis Present
[2020-06-16 06:53] LABS: Prothrombin Time 20.6 Seconds (9.0-12.0)
[2020-06-16 06:58] LABS: Albumin Level 2.7 gm/dl (3.4-5.0); Calcium 8.8 mg/dl (8.5-10.1); Creatinine Clr Calc Pharmacy 34.8 ml/min; Est GFR (African American) 20.4; Est GFR (Non-African American) 17.6; Magnesium 2.4 mg/dl (1.8-2.4); Potassium 4.1 mmol/L (3.5-5.1)
[2020-06-16 07:01] LABS: Albumin Globulin Ratio 0.6 (0.9-2); Bilirubin,Total 0.7 mg/dl (0.2-1); Globulin 4.6 gm/dl (2.5-4.0); Phosphorus 3.3 mg/dl (2.5-4.9); Total Protein 7.3 gm/dl (6.4-8.2)
[2020-06-16] MEDS ORDERED: CHLOROTHIAZIDE SODIUM 500 MG in DEXTROSE 5% 50 ML IV STA (08:00)
--- NOTE | 2020-06-16 08:11 | Critical Care Progress Note ---
Date of Service June 16, 2020 Assessment & Plan (1) Admitted to intensive care unit: Reason Critically Ill: Mr. 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 His progressive SOB and confusion are likely secondary to acute on chronic hypercapnia from OHS, acutely worsened by Ativan administration on the evening of 06/14/20. Over the past 24 hours, Mr. Douglass has remained on BiPAP. His blood gas showed modest improvement in hypercapnia today. Mr. Douglass has remained afebrile, his MAPs have remained at goal, and his oxygen saturation has remained in high 90s overnight. His HR have improved (40 to 80s) with dobutamine. We will discontinue dobutamine at this time. On exam, he is no longer somnolent - he follows commands and answers questions appropriately. His urine output was 30ml/hr overnight while on the lasix drip at 20mg/hr. 500mg IV Diuril added for augmentation of diuresis. He remains on Zosyn for a pseudomonal UTI. Nursing made aware this morning that Mr. Douglass shared a room with a patient (earlier during this hospital stay, prior to ICU transfer) who tested positive COVID 19 on 06/15/20. Of note, Mr. Douglass was tested for COVID 19 on hospital admission and was negative. However, he shared the same room (non-negative pressure) with the now-COVID positive patient for 48 hours. We retested Mr. Douglass this morning -- fortunately result was negative. As for his overall prognosis, Mr. Douglass has been hospitalized several times in the past year. Due to his body habitus (BMI > 76) he will be a candidate for intubation, should that become necessary during this hospitalization or in the future. ICU staff spoke with sister over the phone yesterday -she reported Mr. Douglass has repeatedly said he does not want to be brought back to the hospital. Palliative care consulted today for goals of care discussion, POLST form completion. It is unclear if Mr. Douglass has a living will or a POA - his next of kin his is daughter. Neuro: [facility] ICU: Negative * Encephalopathy: improving - Head CT on admission negative; anatomic etiology unlikely - Na normal. Ca normal. glucose normal. TSH normal. ammonia level milldy elevated to 36. - patient with UTI + evidence of end-organ hypoperfusion (elevated Cr, AMS) which could be secondary to sepsis; however lactate not elevated. Continue Zosyn. - likely secondary to hypercapnia (related to obesity hypoventilation syndrome). Serial ABGs showing some improvement with continued BiPAP use. - acute worsening with Ativan administration on evening of 06/14. Recommend no further benzodiazepine use. No opioid use. * Myoclonic jerks - frequent on exam - possibly secondary to hypercapnia vs. uremia (BUN at 86) - BiPAP as above * Hx Depression - hold home fluoxetine while NPO Cardiac: * Bradycardia: resolved with dobutamine - on chart review, appears to be chronic - continue hold home metoprolol - will discontinue dobutamine at this time - cardiology following * Hx Diastolic CHF - Echo 06/13 was technically limited due to body habitus. LV ejection fraction not able to be measured. RV was moderately dilated RV systolic function normal (per TAPSE). Elevated pulmonary artery pressures (suspect secondary to uncontrolled OHS/SAFIA) - hold home metoprolol due to bradycardia - continue lasix drip for volume overload; aim for negative fluid balance * Hx of Atrial Fibrillation - on anticoagulation with Coumadin - INR at 2.0 today. will restart coumadin today, 1.5mg - holding metoprolol as above - no RVR (bradycardic as above) * Hyperlipidemia - holding home atorvastatin while NPO * Hx Hypertension - holding home hydralazine and metoprolol - troponin checked 06/14 not elevated, EKG without signs of ischemia. Respiratory: * Acute on chronic hypercapnia: improving with BiPAP - likely etiology of encephalopathy - patient with history of obesity hypoventilation syndrome and/or SAFIA - on home BiPAP therapy - serial ABGs showing improvement * Respiratory Acidosis: improving - pH 7.33. Bicarb 28. pCO2 52. - Anion gap has now closed, at 10.3, down from 12. Lactate not elevated. - BiPAP as above - no concomitant derangement * Pulmonary Hypertension - elevated pulmonary artery pressures on echo 06/13/ - likely secondary to obesity hypoventilation syndrome and/or SAFIA - compliance with home BiPAP unknown - poor end-organ perfusion (AMS, elevated Cr) likely the result of reduced forward flow * Pleural Effusion - moderate R pleural effusion (this is chronic) - suspect secondary to diastolic CHF (from pulmonary HTN) - IV lasix as above - patient is poor candidate for thoracentesis given body habitus * Hx of COPD - unclear if patient ever had formal PFTs - does report 21 pack year history - continue home ipratropium and albuterol neb q6 prn - baseline home O2 requirement of 2-3L GI: * GERD - continue protonix - NPO RENAL/LYTES: * Acute on Chronic Kidney Injury - baseline Cr 1.2-1.4 - Cr at 3.4 today, down from 3.5 - BUN at 86, ratio 25 - urine output improved to 505ml overnight, 30 ml/hr, although modest considering patient is on lasix drip - 500mg IV Diuril added for augmentation of diuresis - suspect secondary to ATN given pseudomonal UTI and cardiorenal syndrome (poor forward flow, reduced venous return) - nephrology following - trend BMP : - Block in place, strict I/Os ENDO: * Type II diabetes Mellitus - A1c at goal at 6.1 on 06/13/20 - pharmacy glycemic consult - ICU protocol for hypoglycemia * Hypothyroidism - TSH WNL - continue home dose levothyroxine HEME: * Normocytic Anemia - Hgb at 7.1, down from 8.0. Level 7.1 on repeat. - MCV 91 (baseline Hgb ~9) - iron level low at 18 on 05/28/20 - hold home iron supplement in setting of active infection - trend CBC ID: * UTI - Urine culture obtained 06/12/20 growing frey sensitive pseudomonas - patient afebrile. WBC normal. procal neg - blood cultures showing no growth through 48 hours - patient does have signs of end organ damage (elevated Cr, AMS), may be secondary to the above etiologies vs. sepsis. - Lactate not elevated - continue Zosyn (day 3) - Nasal MRSA neg LINES/IV ACCESS: Block, Melinda peripheral line CODE STATUS: Full DVT PROPHYLAXIS: therapeutic on Coumadin Thank you for allowing us to participate in the care of this patient. Please refer to my attending physician's documentation for any further recommendations. Admission and Anticipated Discharge Date Admission Date: June 12, 2020 Supervising Physician Co-Signing Physician Notes Dr. Mehta was the resident-physician during care of patient. I separately evaluated patient for mota portions of the history and the exam. I was present during the critical portion of medical decision making, and I discussed the case with the resident. I generally agree with the findings and plan except for any additions/exceptions noted. Patient diuresing approximately 30 mL/h. We have given him 500 mg of Diuril in addition to 20 mg an hour of Lasix. His creatinine had a slight downtrend today. His mentation is improved. He is still requiring support from BiPAP, but he is only on 30% FiO2. Dobutamine has been discontinued as it seems to have minimal improvement on urine output. Cardiology has concerns regarding his underlying arrhythmias. Palliative care consultation has been placed. His overall prognosis is quite poor. Continue warfarin for history of atrial fibrillation. Appreciate cardiology and nephrology input. We may be able to downgrade to telemetry later today. Prognosis very poor. I have personally spent 33 minutes of critical care time in the direct management of this patient. This is a life/limb threatening event. This includes time spent evaluating patient, direct bedside care, chart review, placing orders, interpretation of diagnostic studies, discussion with consultants, patient, and/or family members regarding treatment decisions, as well as other required patient management activities. This time is exclusive of all separately billable procedures, and teaching time and separate from and in addition to any other critical care service time. Subjective No acute events overnight. Patient is able to speak and interact on exam today, although his speech is difficult to make out due to the BiPAP mask being in place. He knows his name, the location and the year. He asks if he can have his arm restraints removed. When asked about code status, he says he would want medical providers to attempt to restart his heart if it were to stop, and that he would want to be intubated if his airway were to become compromised. When aske dif he had a POA, he says he does have a daughter - but it is unclear if he has laid out his wishes with her. Review of Systems Respiratory: + dyspnea (although improved from yesterday) Cardiovascular: no chest pain Physical Exam Constitutional: + morbidly obese Eyes: + anicteric sclerae ENMT: external ear and nose normal, oropharynx normal Neck: normal visual inspection and trachea midline Respiratory: no cough Auscultation: + diminished lung sounds and + wheezes (diffusely throughout) Cardiovascular: Rate/Rhythm: regular rhythm and + bradycardic Heart Sounds: normal S1 and normal S2; no murmur and no cardiac rub Vessels: no JVD and no carotid bruit Extremities: + pedal edema (+2 bilaterally to the thigh) Gastrointestinal (Abdomen): normal bowel sounds, soft, nontender, no hepatosplenomegaly Skin: no rashes, warm and dry + nails dystrophic Psychiatric: Orientation: alert, oriented to person, oriented to place and oriented to time (knew the year, not the month) Genitourinary: Block catheter in place, draining yellow urine without visible blood clots Results & Data Results & Data ([facility]) Vital Signs (Past 12 Hours) Vital Signs Temp Pulse Pulse Resp BP Pulse Ox 06/16/20 06:05 86 19 137/84 98 06/16/20 06:00 98 H 24 97 06/16/20 05:35 79 21 138/73 95 06/16/20 05:05 70 21 111/85 91 06/16/20 05:00 36.4 C L 74 25 H 97 06/16/20 04:35 70 21 116/54 L 99 06/16/20 04:30 76 30 H 96 06/16/20 04:05 75 25 H 130/66 98 06/16/20 03:35 24 132/69 96 06/16/20 03:05 71 21 146/65 H 97 06/16/20 02:35 29 H 132/109 H 96 06/16/20 02:06 76 30 H 119/66 97 06/16/20 02:00 76 20 91 06/16/20 01:36 22 86/60 L 96 06/16/20 01:05 74 30 H 142/72 H 96 06/16/20 00:36 71 28 H 132/55 L 96 06/16/20 00:35 70 24 96 06/16/20 00:33 76 24 96 06/16/20 00:05 36.8 C 71 25 H 91/83 L 95 06/16/20 00:00 67 29 H 06/15/20 23:35 78 25 H 128/58 L 06/15/20 23:05 21 124/80 06/15/20 22:36 0 L 23 153/75 H 06/15/20 22:06 147/66 H 97 06/15/20 21:35 70 26 H 131/108 H 93 06/15/20 21:06 69 20 159/70 H 97 06/15/20 20:35 66 20 135/67 98 06/15/20 20:30 62 62 24 96 06/15/20 20:05 36.7 C 68 141/83 H 96 Resident Activity Tracking Resident Involvement: Resident Care Provided Care Provided: Adult [facility]
--- NOTE | 2020-06-16 08:25 | XRay Report ---
XR chest 1V portable CLINICAL HISTORY: Weakness. Respiratory difficulty. ABNORMAL CHEST X-RAY. FOLLOW-UP STUDY. COMPARISON STUDY: No previous studies for comparison. FINDINGS: The study is somewhat limited from a technical standpoint due to the patient's large body h abitus. There is a subpulmonic right pleural effusion. There is suspected mild pulmonary vascular con gestion although the vessels are difficult to evaluate due to the patient's large body habitus. There is no lobar consolidation.[ IMPRESSION: Cardiomegaly, subpulmonic right pleural effusion, and mild pulmonary vascular congestion. ACT 112: Negative or not required by law. Electronically signed by: Sebastián Gómez M.D. 06/16/2020 8:24 AM
[2020-06-16 09:03] LABS: Hematocrit (blood only) 22.5 % (42-52); Hemoglobin 7.1 g/dL (14.0-18.0)
[2020-06-16] MEDS: INSULIN GLARGINE SOLOSTAR 100 UNITS/ML 3 ML PEN SC SCH ×2 (09:19→20:25)
[2020-06-16] MEDS: NYSTATIN POWDER 15GM BTL EXT SCH ×2 (09:19→20:26)
[2020-06-16 09:39] LABS: Influenza A virus by PCR Negative (Neg); Influenza B virus by PCR Negative (Neg); RSV by PCR Negative (Neg); SARS CoV2 RNA(COVID-19) InHosp NEGATIVE (Negative)
--- NOTE | 2020-06-16 10:28 | Cardiology Progress Note ---
Date of Service June 16, 2020 Assessment & Plan (1) Acute on chronic respiratory failure with hypoxia and hypercapnia: (2) Acute on chronic right heart failure: (3) Tachycardia-bradycardia syndrome: (4) Acute on chronic renal failure: (5) Anemia: 64-year-old patient admitted with acute on chronic respiratory failure, acute on chronic diastolic/right-sided heart failure, with acute on chronic renal insufficiency. Urine output and baseline heart rate mildly improved overnight with addition of intravenous dobutamine (inotropic agent). I have concerns regarding additional use of dobutamine with history of atypical atrial flutter, paroxysmal atrial fibrillation, as well as nonsustained ventricular tachycardia requiring treatment with amiodarone during prior hospitalizations. Agree with discontinuation of dobutamine at this time. Hold metoprolol for time being and continue to monitor telemetry. No overt indication for pacemaker implantation currently. Continue IV Lasix infusion/titration as per nephrology and critical care. CBC today demonstrates worsening anemia. Recommend serial H&. Transfuse PRBC's as needed to maintain hemoglobin >8.0gm/dL secondary to acute and chronic cardiovascular issues. Continue BiPAP as per direction of critical care team. Poor prognosis. Admission and Anticipated Discharge Date Admission Date: June 12, 2020 Subjective Patient seen and examined the bedside. Remains confused however arousable to verbal stimuli. Follows commands. Involuntary myoclonic jerking noted. Treated with dobutamine over the last 24 hours due to bradycardia. Heart rate improved as well as mild concomitant improvement in urine output. GFR/creatinine unchanged. No evidence of recurrent atrial fibrillation/flutter on telemetry. Hemoglobin has trended down to 7.1gm/dL this morning. Recent history significant for possible GI bleeding. EGD performed 05/18/2020 demonstrating mild antral gastritis. No ulceration appreciated. Review of Systems Review of Systems: Unobtainable due to cognitive status Physical Exam Constitutional: well developed, + ill appearing and + morbidly obese Respiratory: normal respiratory effort; no respiratory distress, no labored breathing and no retractions Auscultation: + diminished lung sounds (Bilateral, poor effort) and + wheezes (End expiratory wheeze bilateral); no crackles, no rales and no rhonchi Cardiovascular: Rate/Rhythm: regular rate, regular rhythm and + bradycardic Heart Sounds: normal S1 and normal S2; no murmur and no cardiac rub Vessels: no JVD (Difficult to assess due to body habitus) and no carotid bruit Extremities: + edema (2+ bilateral lower extremity pitting edema up to the mid abdomen) Gastrointestinal (Abdomen): Inspection/Auscultation: normal bowel sounds and + abdominal edema Percussion/Palpation: abdomen nontender, no guarding and abdomen not rigid Skin: + ecchymosis (Right upper extremity) Neurologic: moves all extremities; no focal motor deficits Psychiatric: Apperance: + disheveled Results & Data ([facility]) Vital Signs (Past 12 Hours) Vital Signs Temp Pulse Pulse Resp BP Pulse Ox 06/16/20 07:58 71 71 24 95 06/16/20 06:05 86 19 137/84 98 06/16/20 06:00 98 H 24 97 06/16/20 05:35 79 21 138/73 95 06/16/20 05:05 70 21 111/85 91 06/16/20 05:00 36.4 C L 74 25 H 97 06/16/20 04:35 70 21 116/54 L 99 06/16/20 04:30 76 30 H 96 06/16/20 04:05 75 25 H 130/66 98 06/16/20 03:35 24 132/69 96 06/16/20 03:05 71 21 146/65 H 97 06/16/20 02:35 29 H 132/109 H 96 06/16/20 02:06 76 30 H 119/66 97 06/16/20 02:00 76 20 91 06/16/20 01:36 22 86/60 L 96 06/16/20 01:05 74 30 H 142/72 H 96 06/16/20 00:36 71 28 H 132/55 L 96 06/16/20 00:35 70 24 96 06/16/20 00:33 76 24 96 06/16/20 00:05 36.8 C 71 25 H 91/83 L 95 06/16/20 00:00 67 29 H 06/15/20 23:35 78 25 H 128/58 L 06/15/20 23:05 21 124/80 06/15/20 22:36 0 L 23 153/75 H (1) Anemia Anemia type: unspecified type Qualified Code(s): D64.9 - Anemia, unspecified (2) Acute on chronic renal failure Acute renal failure type: unspecified Chronic kidney disease stage: stage 3 (moderate) Chronic kidney disease stage 3 subtype: stage 3a (GFR 45-59) Qualified Code(s): N17.9 - Acute kidney failure, unspecified; N18.31 - Chronic kidney disease, stage 3a
[2020-06-16 10:30] LABS: iSTAT Allen Test Pass; iSTAT Arterial Blood Gas HCO3 27 meg/L (19-24); iSTAT Arterial Blood Gas pCO2 57 mmHg (35-46); iSTAT Arterial Blood Gas pH 7.29 (7.35-7.45); iSTAT Arterial Blood Gas pO2 83 mmHg (80-95); iSTAT Carbon Dioxide 29 mmol/L (24-31); iSTAT Site L Radial
--- NOTE | 2020-06-16 10:57 | Billing Data ---
Date of Service June 16, 2020 Coding Level of Care Code Critical Care 1st 30-74 mins Time Spent (min) 33
--- NOTE | 2020-06-16 11:41 | Nephrology Progress Note ---
Date of Service June 16, 2020 Assessment & Plan (1) ELVI (acute kidney injury): Acute kidney injury likely multifactorial including ATN in setting of Pseudomonas UTI and cardiorenal syndrome. Patient not responding well to Lasix drip and was net positive yesterday -We will give Lasix 160 mg bolus and continue Lasix drip at 20 mg/h. -Avoid metolazone 5 mg once -Daily BMP and weights -Input and output. (2) Acute and chronic respiratory failure: Acute CHF exacerbation. Patient is on BiPAP. Continue on Lasix dose as above Cardiology on board. (3) UTI (urinary tract infection): Urine culture positive for Pseudomonas on zosyn renally dose. Admission and Anticipated Discharge Date Admission Date: June 12, 2020 Subjective Seen for ELVI and fluid overload. Patient not diuresing well. He is intermittently confused. Remains on BiPAP. Review of Systems Review of Systems: Unobtainable due to cognitive status Physical Exam Physical Exam: General exam: Morbidly obese male, comfortable on BiPAP HEENT: Pupils are equal and reactive to light Neck: No JVD, neck is supple trachea is midline Respiratory system: Clear breath sounds bilaterally. Gastrointestinal: Abdomen is soft, non distended, non tender, bowel sounds are present CVS: Regular rate and rhythm. No murmurs, rubs or gallops Musculoskeletal: No joint or muscle tenderness Extremities: Non tender, 2+ edema, peripheral pulses are present Neuro: Oriented x1, no tremors, no focal neurological deficits Skin: No rashes Results & Data ([facility]) Vital Signs (Past 12 Hours) Vital Signs Temp Pulse Pulse Resp BP Pulse Ox 06/16/20 07:58 71 71 24 95 06/16/20 06:05 86 19 137/84 98 06/16/20 06:00 98 H 24 97 06/16/20 05:35 79 21 138/73 95 06/16/20 05:05 70 21 111/85 91 06/16/20 05:00 36.4 C L 74 25 H 97 06/16/20 04:35 70 21 116/54 L 99 06/16/20 04:30 76 30 H 96 06/16/20 04:05 75 25 H 130/66 98 06/16/20 03:35 24 132/69 96 06/16/20 03:05 71 21 146/65 H 97 06/16/20 02:35 29 H 132/109 H 96 06/16/20 02:06 76 30 H 119/66 97 06/16/20 02:00 76 20 91 06/16/20 01:36 22 86/60 L 96 06/16/20 01:05 74 30 H 142/72 H 96 06/16/20 00:36 71 28 H 132/55 L 96 06/16/20 00:35 70 24 96 06/16/20 00:33 76 24 96 06/16/20 00:05 36.8 C 71 25 H 91/83 L 95 06/16/20 00:00 67 29 H Laboratory Results 06/16/20 06:19 06/16/20 06/16/20 06/16/20 04:38 04:38 05:55 WBC 6.74 RBC 2.54 L MCV 90.6 MCH 28.0 MCHC 30.9 L RDW Std Deviation 70.1 H RDW Coeff of Neena 21.3 H Plt Count 227 MPV 11.3 H Phosphorus Cancelled Cancelled Albumin Cancelled Cancelled 06/16/20 06:19 WBC RBC MCV MCH MCHC RDW Std Deviation RDW Coeff of Neena Plt Count MPV Phosphorus 3.3 Albumin 2.7 L
[2020-06-16] MEDS ORDERED: FUROSEMIDE 160 MG in SYRINGE 0 ML IV ONE (12:00)
[2020-06-16] MEDS ORDERED: metOLazone 5 MG TABLET PO ONE (12:00)
[2020-06-16] MEDS: FAMOTIDINE 20 MG in SYRINGE 3 ML IV SCH (12:22)
--- NOTE | 2020-06-16 12:31 | Pharmacy Report ---
Pharmacy Glycemic Short Note 2 - Date of Service June 16, 2020 - Glycemic Short BSG Results (Last 24 hours): 06/15/20 06/15/20 06/15/20 15:37 16:03 19:57 Glucose 161 H POC Glucose 208 H 167 H 06/16/20 06/16/20 06/16/20 00:01 04:07 04:38 Glucose Cancelled POC Glucose 166 H 148 H 06/16/20 06/16/20 06/16/20 05:55 06:19 08:53 Glucose Cancelled 123 H POC Glucose 135 H 06/16/20 12:17 Glucose POC Glucose 145 H OUTPATIENT ANTIDIABETIC REGIMEN: * Lantus 10 units Q HS * Novolog 12 unjits w/ breakfast + 12 units w/ lunch + 14 units w/ dinner * A1c = 6.1% 06/13/20 ASSESSMENT: 06/16 * BSGs well controlled over last 24 hrs with current insulin orders * Will continue with the same for next 24 hrs * Diuresis attempts continue with escalated bolus doses loop and thiazide diuretics 06/15 * Patient admitted to ICU for ADHF, resp distress, worsening mental status and ELVI * BSGs have been > 140 x 2, as a result ICU hyperglycemia protocol has triggered pharmacy consult * Patient is now receiving inodilator support, furosemide drip and Zosyn for possible UTI +/- pulm infxn * He is currently NPO, however fasting BSGs are elevated > 180 * Given NPO and uncertain insulin needs w/ changing stressors will initiate SQ basal/bolus regimen that will utilize Novolog to provide a portion of the "basal" insulin needs to lessen the risk of prolonged hypoglycemia with larger Lantus doses. PLAN FOR INPATIENT GLYCEMIC CONTROL: * Basal insulin * Lantus SQ BID per scale * 0 units if BSG less than 110 * 5 units if BSG 110 or greater * Bolus insulin * NovoLog per scale Q 4 hrs: PLAN FOR DISCHARGE: * may resume outpt insulin regimen on discharge if no report of frequent hypoglycemic episodes
--- NOTE | 2020-06-16 14:38 | Electrocardiogram Report ---
Test Reason : Blood Pressure : / mmHG Vent. Rate : 067 BPM Atrial Rate : 067 BPM P-R Int : 210 ms QRS Dur : 126 ms QT Int : 520 ms P-R-T Axes : 042 010 069 degrees QTc Int : 549 ms Sinus rhythm with 1st degree A-V block Left bundle branch block Abnormal ECG When compared with ECG of 13-JUN-2020 04:39, MI interval has increased Confirmed by Edgar Roger [id number] on 06/16/2020 2:38:08 PM Referred By: REFERRED SELF Confirmed By:Wilfrido Roger
[2020-06-16] MEDS ORDERED: WARFARIN SOD 0.5 MG TAB PO ONE (16:00)
[2020-06-16] MEDS ORDERED: WARFARIN SOD 1 MG TAB PO ONE (16:00)
--- NOTE | 2020-06-16 21:00 | Hospitalist Progress Note ---
Date of Service delayed entry date of service below June 16, 2020 Assessment & Plan (1) Acute and chronic respiratory failure: Acute on chronic right heart failure Obstructive sleep apnea on BiPAP Chronic obstructive pulmonary disease Morbid Obesity Bilateral Pleural Effusions 06/16 continue Bipap on Lasix drip monitor diuresis, renal function Bipap management per [employer] Acute metabolic encephalopathy on admission 06/16 awake, answers simple questions continue to monitor Anemia no melena noted from Acute on CKD? on Famotidine monitor Hg Bradycardia on admission -holding beta blockers at this time, (of note that his previous hospitalization had listed amiodarone but not currently active on current home med list ) his amiodarone from previous hospitalization has not been given on this admission History of paroxysmal ventricular tachycardia History of atrial flutter Chronic anticoagulation with coumadin -mildly elevated INR on presentation as 3.3. hold coumadin for now Acute kidney injury on chronic kidney disease stage III -Baseline creatinine around 1.2 to 1.4 but this admission creatinine of 3.2. 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 TSH normal Depression -hold oral fluoxetine for now Admission and Anticipated Discharge Date Admission Date: June 12, 2020 Subjective ff up for encephalopathy, acute on chronic CHF exacerbation, acute on CKD, etc. seen resting in bed, comfortable, on Bipap awakens, tries to open eyes to verbal stimuli answers simple questions states he feels ok denies chest pain, dyspnea, pain in his body, abdominal pain no melena per RN no other issues noted Review of Systems Review of Systems: All systems reviewed & are unremarkable except as noted in Subjective Physical Exam Physical Exam: General- oriented x 1, not in distress, speaks in sentences with no effort or accessory muscle use Head- atraumatic Eyes- PERRL, EOMI, anicteric ENT- oropharynx clear Neck- supple, (+) JVD, no adenopathy, no thyromegaly; carotids +2/2, no bruits appreciated Lungs- (+) mild rales at the bases, intermittent wheezing Heart- normal rate,irregularly irregular rhythm; no murmur, no gallop, no rub appreciated Abdomen- normal bowel sounds, nondistended, soft, nontender, no masses or hepatosplenomegaly Extremities- (+) lower extremity edema, no calf tenderness; peripheral pulses intact Neuro- alert, oriented x 1; full neuro exam difficult to assess due to mental status Skin- warm & dry Results & Data Results & Data ([facility]) Vital Signs (Past 12 Hours) Vital Signs Temp Pulse Pulse Resp BP Pulse Ox 06/16/20 20:30 62 62 26 H 99 06/16/20 20:11 36.8 C 65 18 126/75 98 06/16/20 20:00 63 21 99 06/16/20 19:30 23 97 06/16/20 19:08 26 H 06/16/20 19:07 26 H 97 06/16/20 19:00 18 97 06/16/20 18:37 61 18 142/114 H 96 06/16/20 15:58 62 26 H 95 06/16/20 13:45 61 26 H 96 06/16/20 11:55 64 24 97 Laboratory Results Laboratory Results - last 24 hr 06/15/20 06/16/20 06/16/20 13:16 00:01 04:07 WBC RBC Hgb Hct MCV MCH MCHC RDW Std Deviation RDW Coeff of Neena Plt Count MPV Immature Gran % (Auto) Neut % (Auto) Lymph % (Auto) Rogers % (Auto) Eos % (Auto) Baso % (Auto) Neut # (Auto) Lymph # (Auto) Rogers # (Auto) Eos # (Auto) Baso # (Auto) Immature Gran # (Auto) Anisocytosis PT INR Sample Site L Radial POC pH 7.29 L POC pCO2 57 H POC pO2 83 POC HCO3 27 H POC Total CO2 29 POC Base Excess 0.0 POC ABG O2 Sat 94.0 Raji Test Pass O2 Delivery Device BIPAP POC O2 Rate 12 POC FiO2 IPAP 15 Sodium Potassium Chloride Carbon Dioxide Anion Gap BUN Creatinine Est Cr Clr Drug Dosing Est GFR ( Amer) Est GFR (Non-Af Amer) BUN/Creatinine Ratio Glucose POC Glucose 166 H 148 H Calcium Phosphorus Magnesium Total Bilirubin AST ALT Alkaline Phosphatase Total Protein Albumin Globulin Albumin/Globulin Ratio COVID-19 Eval Order SARS-CoV-2 (PCR) Influenza Type A (PCR) Influenza Type B (PCR) RSV (RT-PCR) Blood Type Antibody Screen 06/16/20 06/16/20 06/16/20 04:29 04:38 04:38 WBC RBC Hgb Hct MCV MCH MCHC RDW Std Deviation RDW Coeff of Neena Plt Count MPV Immature Gran % (Auto) Neut % (Auto) Lymph % (Auto) Rogers % (Auto) Eos % (Auto) Baso % (Auto) Neut # (Auto) Lymph # (Auto) Rogers # (Auto) Eos # (Auto) Baso # (Auto) Immature Gran # (Auto) Anisocytosis PT Cancelled INR Cancelled Sample Site L Radial POC pH 7.33 L POC pCO2 52 H POC pO2 55 L POC HCO3 27 H POC Total CO2 28 POC Base Excess 1.0 POC ABG O2 Sat 85.0 L Raji Test Pass O2 Delivery Device BIPAP POC O2 Rate 22 POC FiO2 30 IPAP 20 Sodium Cancelled Potassium Cancelled Chloride Cancelled Carbon Dioxide Cancelled Anion Gap Cancelled BUN Cancelled Creatinine Cancelled Est Cr Clr Drug Dosing Cancelled Est GFR ( Amer) Cancelled Est GFR (Non-Af Amer) Cancelled BUN/Creatinine Ratio Cancelled Glucose Cancelled POC Glucose Calcium Cancelled Phosphorus Cancelled Magnesium Cancelled Total Bilirubin Cancelled AST Cancelled ALT Cancelled Alkaline Phosphatase Cancelled Total Protein Cancelled Albumin Cancelled Globulin Cancelled Albumin/Globulin Ratio Cancelled COVID-19 Eval Order SARS-CoV-2 (PCR) Influenza Type A (PCR) Influenza Type B (PCR) RSV (RT-PCR) Blood Type Antibody Screen 06/16/20 06/16/20 06/16/20 04:38 05:55 05:55 WBC 6.74 RBC 2.54 L Hgb 7.1 L Hct 23.0 L MCV 90.6 MCH 28.0 MCHC 30.9 L RDW Std Deviation 70.1 H RDW Coeff of Neena 21.3 H Plt Count 227 MPV 11.3 H Immature Gran % (Auto) 0.6 Neut % (Auto) 71.0 Lymph % (Auto) 15.9 Rogers % (Auto) 9.9 Eos % (Auto) 1.9 Baso % (Auto) 0.7 Neut # (Auto) 4.78 Lymph # (Auto) 1.07 L Rogers # (Auto) 0.67 H Eos # (Auto) 0.13 Baso # (Auto) 0.05 Immature Gran # (Auto) 0.04 H Anisocytosis Present PT Cancelled INR Cancelled Sample Site POC pH POC pCO2 POC pO2 POC HCO3 POC Total CO2 POC Base Excess POC ABG O2 Sat Raji Test O2 Delivery Device POC O2 Rate POC FiO2 IPAP Sodium Cancelled Potassium Cancelled Chloride Cancelled Carbon Dioxide Cancelled Anion Gap Cancelled BUN Cancelled Creatinine Cancelled Est Cr Clr Drug Dosing Cancelled Est GFR ( Amer) Cancelled Est GFR (Non-Af Amer) Cancelled BUN/Creatinine Ratio Cancelled Glucose Cancelled POC Glucose Calcium Cancelled Phosphorus Cancelled Magnesium Cancelled Total Bilirubin Cancelled AST Cancelled ALT Cancelled Alkaline Phosphatase Cancelled Total Protein Cancelled Albumin Cancelled Globulin Cancelled Albumin/Globulin Ratio Cancelled COVID-19 Eval Order SARS-CoV-2 (PCR) Influenza Type A (PCR) Influenza Type B (PCR) RSV (RT-PCR) Blood Type Antibody Screen 06/16/20 06/16/20 06/16/20 06:19 06:19 06:31 WBC RBC Hgb Hct MCV MCH MCHC RDW Std Deviation RDW Coeff of Neena Plt Count MPV Immature Gran % (Auto) Neut % (Auto) Lymph % (Auto) Rogers % (Auto) Eos % (Auto) Baso % (Auto) Neut # (Auto) Lymph # (Auto) Rogers # (Auto) Eos # (Auto) Baso # (Auto) Immature Gran # (Auto) Anisocytosis PT 20.6 H INR 2.0 H Sample Site POC pH POC pCO2 POC pO2 POC HCO3 POC Total CO2 POC Base Excess POC ABG O2 Sat Raji Test O2 Delivery Device POC O2 Rate POC FiO2 IPAP Sodium 139 Potassium 4.1 Chloride 104 Carbon Dioxide 28 Anion Gap 8.0 BUN 86 H Creatinine 3.43 H Est Cr Clr Drug Dosing 34.8 Est GFR ( Amer) 20.4 Est GFR (Non-Af Amer) 17.6 BUN/Creatinine Ratio 25.0 H Glucose 123 H POC Glucose Calcium 8.8 Phosphorus 3.3 Magnesium 2.4 Total Bilirubin 0.7 AST 30 ALT 15 Alkaline Phosphatase 83 Total Protein 7.3 Albumin 2.7 L Globulin 4.6 H Albumin/Globulin Ratio 0.6 L COVID-19 Eval Order SARS-CoV-2 (PCR) Influenza Type A (PCR) Influenza Type B (PCR) RSV (RT-PCR) Blood Type O Negative Antibody Screen NEGATIVE 06/16/20 06/16/20 06/16/20 08:00 08:00 08:46 WBC RBC Hgb 7.1 L Hct 22.5 L MCV MCH MCHC RDW Std Deviation RDW Coeff of Neena Plt Count MPV Immature Gran % (Auto) Neut % (Auto) Lymph % (Auto) Rogers % (Auto) Eos % (Auto) Baso % (Auto) Neut # (Auto) Lymph # (Auto) Rogers # (Auto) Eos # (Auto) Baso # (Auto) Immature Gran # (Auto) Anisocytosis PT INR Sample Site POC pH POC pCO2 POC pO2 POC HCO3 POC Total CO2 POC Base Excess POC ABG O2 Sat Raji Test O2 Delivery Device POC O2 Rate POC FiO2 IPAP Sodium Potassium Chloride Carbon Dioxide Anion Gap BUN Creatinine Est Cr Clr Drug Dosing Est GFR ( Amer) Est GFR (Non-Af Amer) BUN/Creatinine Ratio Glucose POC Glucose Calcium Phosphorus Magnesium Total Bilirubin AST ALT Alkaline Phosphatase Total Protein Albumin Globulin Albumin/Globulin Ratio COVID-19 Eval Order CovFluRsv at [facility] SARS-CoV-2 (PCR) NEGATIVE Influenza Type A (PCR) Negative Influenza Type B (PCR) Negative RSV (RT-PCR) Negative Blood Type Antibody Screen 06/16/20 06/16/20 06/16/20 08:53 12:17 16:11 WBC RBC Hgb Hct MCV MCH MCHC RDW Std Deviation RDW Coeff of Neena Plt Count MPV Immature Gran % (Auto) Neut % (Auto) Lymph % (Auto) Rogers % (Auto) Eos % (Auto) Baso % (Auto) Neut # (Auto) Lymph # (Auto) Rogers # (Auto) Eos # (Auto) Baso # (Auto) Immature Gran # (Auto) Anisocytosis PT INR Sample Site POC pH POC pCO2 POC pO2 POC HCO3 POC Total CO2 POC Base Excess POC ABG O2 Sat Raji Test O2 Delivery Device POC O2 Rate POC FiO2 IPAP Sodium Potassium Chloride Carbon Dioxide Anion Gap BUN Creatinine Est Cr Clr Drug Dosing Est GFR ( Amer) Est GFR (Non-Af Amer) BUN/Creatinine Ratio Glucose POC Glucose 135 H 145 H 127 H Calcium Phosphorus Magnesium Total Bilirubin AST ALT Alkaline Phosphatase Total Protein Albumin Globulin Albumin/Globulin Ratio COVID-19 Eval Order SARS-CoV-2 (PCR) Influenza Type A (PCR) Influenza Type B (PCR) RSV (RT-PCR) Blood Type Antibody Screen 06/16/20 20:03 WBC RBC Hgb Hct MCV MCH MCHC RDW Std Deviation RDW Coeff of Neena Plt Count MPV Immature Gran % (Auto) Neut % (Auto) Lymph % (Auto) Rogers % (Auto) Eos % (Auto) Baso % (Auto) Neut # (Auto) Lymph # (Auto) Rogers # (Auto) Eos # (Auto) Baso # (Auto) Immature Gran # (Auto) Anisocytosis PT INR Sample Site POC pH POC pCO2 POC pO2 POC HCO3 POC Total CO2 POC Base Excess POC ABG O2 Sat Raji Test O2 Delivery Device POC O2 Rate POC FiO2 IPAP Sodium Potassium Chloride Carbon Dioxide Anion Gap BUN Creatinine Est Cr Clr Drug Dosing Est GFR ( Amer) Est GFR (Non-Af Amer) BUN/Creatinine Ratio Glucose POC Glucose 122 H Calcium Phosphorus Magnesium Total Bilirubin AST ALT Alkaline Phosphatase Total Protein Albumin Globulin Albumin/Globulin Ratio COVID-19 Eval Order SARS-CoV-2 (PCR) Influenza Type A (PCR) Influenza Type B (PCR) RSV (RT-PCR) Blood Type Antibody Screen
[2020-06-17] MEDS: LEVALBUTEROL 1.25MG/0.5ML NEB INH SCH ×4 (01:05→19:25)
[2020-06-17] MEDS: IPRATROPIUM BROMIDE NEB SOLN 0.02% 2.5 ML VIAL INH SCH ×4 (01:05→19:25)
[2020-06-17] MEDS: FUROSEMIDE 100 MG in DEXTROSE 5% 90 ML IV SCH ×2 (01:57→07:19)
[2020-06-17] MEDS: INSULIN ASPART 100 UNITS/ML 3 ML PEN SC SCH ×4 (03:48→21:43)
[2020-06-17] MEDS: PIPERACILLIN/TAZOBACTAM 4.5 GM in DEXTROSE 5% 100 ML IV SCH (03:49)
[2020-06-17 05:19] LABS: Basophils # (auto) 0.06 K/uL (0-0.2); Basophils % (auto) 0.8 %; Eosinophils # (auto) 0.19 K/uL (0-0.5); Eosinophils % (auto) 2.7 %; Hematocrit (blood only) 22.2 % (42-52); Hemoglobin 7.2 g/dL (14.0-18.0); Immature Granulocytes # (auto) 0.05 K/uL (0.00-0.02); Immature Granulocytes % (auto) 0.7 %; Lymphocytes # (auto) 1.15 K/uL (1.2-3.4); Lymphocytes % (auto) 16.1 %; Mean Corpuscular Hemoglobin 29.4 pg (25-34); Mean Corpuscular Hgb Conc 32.4 g/dL (32-36); Mean Corpuscular Volume 90.6 fL (80-100); Mean Platelet Volume 10.1 fL (7.4-10.4); Monocytes # (auto) 0.92 K/uL (0.11-0.59); Monocytes % (auto) 12.9 %; Neutrophils # (auto) 4.77 K/uL (1.4-6.5); Neutrophils % (auto) 66.8 %; Platelet Count 207 K/uL (130-400); RDW Coefficient of Variation 21.4 % (11.5-14.5); RDW Standard Deviation 70.7 fL (36.4-46.3); Red Blood Count 2.45 M/uL (4.7-6.1); White Blood Count 7.14 K/uL (4.8-10.8)
[2020-06-17 05:40] LABS: Anisocytosis Present
[2020-06-17 06:29] LABS: INR 2.1 (0.9-1.1); Prothrombin Time 21.7 Seconds (9.0-12.0)
[2020-06-17 06:45] LABS: BUN Creatinine Ratio 24.1 (10-20); Calcium 8.8 mg/dl (8.5-10.1); Est GFR (African American) 19.9; Est GFR (Non-African American) 17.2; Magnesium 2.4 mg/dl (1.8-2.4); Phosphorus 3.3 mg/dl (2.5-4.9)
--- NOTE | 2020-06-17 07:12 | Critical Care Progress Note ---
Date of Service June 17, 2020 Assessment & Plan (1) Admitted to intensive care unit: Reason Critically Ill: Mr. 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 His progressive SOB and confusion are likely secondary to acute on chronic hypercapnia from OHS, acutely worsened by Ativan administration on the evening of 06/14/20. Over the past 24 hours, Mr. Douglass has remained on BiPAP for he majority of the time. Plan today to transition temporarily to nasal cannula during meals. Mr. Douglass has remained afebrile, his MAPs have remained at goal, and his oxygen saturation has remained in high 90s overnight. His HR has improved (40 to 60s), although it is unclear if dobutamine was helpful in this regard. Dobutamine was discontinued on 06/16 per cardiology recommendations. On exam, he is no longer somnolent - he follows commands and answers questions appropriately. His urine output was 900ml over the past 12 hours with significant diuretic administration - his lasix drip continues to run at 20mg/hr and he was also given a 160mg IV lasix bolus, 500mg IV Diuril, and 5mg of met olazone on 06/16. We will increase his lasix drip rate from 20 to 30mg/hr. He remains on Zosyn for a pseudomonal UTI, currently day 4. Blood cultures obtained on admission are negative to date. Nursing made aware this morning that Mr. Douglass shared a room with a patient (earlier during this hospital stay, prior to ICU transfer) who tested positive COVID 19 on 06/15/20. Of note, Mr. Douglass was tested for COVID 19 on hospital admission and was negative. However, he shared the same room (non-negative pressure) with the now-COVID positive patient for 48 hours. We retested Mr. Douglass on 06/16 -- fortunately result was negative. As for his overall prognosis, Mr. Douglass has been hospitalized several times in the past year. Due to his body habitus (BMI > 76) he will be a candidate for intubation, should that become necessary during this hospitalization or in the future. ICU staff spoke with sister over the phone yesterday -she reported Mr. Douglass has repeatedly said he does not want to be brought back to the hospital. Palliative care consulted today for goals of care discussion, POLST form completion. It is unclear if Mr. Douglass has a living will or a POA - his next of kin his is daughter. Patient is stable for ICU downgrade at this time. Neuro: [facility] ICU: Negative * Encephalopathy: improving - Head CT on admission negative; anatomic etiology unlikely - Na normal. Ca normal. glucose normal. TSH normal. ammonia level mildly elevated to 36. - patient with UTI + evidence of end-organ hypoperfusion (elevated Cr, AMS) which could be secondary to sepsis; however lactate not elevated. Continue Zosyn (day 4) - likely secondary to hypercapnia (related to obesity hypoventilation syndrome). Serial ABGs showing some improvement with continued BiPAP use. - acute worsening with Ativan administration on evening of 06/14. Recommend no further benzodiazepine use. No opioid use. * Myoclonic jerks - frequent on exam - possibly secondary to hypercapnia vs. uremia (BUN at in 80s) - BiPAP as above * Hx Depression - hold home fluoxetine while NPO Cardiac: * Bradycardia: improved - HR improved from 40s to 60s - on chart review, appears to be chronic - patient was placed on dobutamine from 06/15-06/16, although it is unclear if this was helpful. It was ultimately discontinued due to his history of cardiac arrhythmias - continue hold home metoprolol - cardiology following * Hx Diastolic CHF - Echo 06/13 was technically limited due to body habitus. LV ejection fraction not able to be measured. RV was moderately dilated RV systolic function normal (per TAPSE). Elevated pulmonary artery pressures (suspect secondary to uncontrolled OHS/SAFIA) - hold home metoprolol due to bradycardia - continue lasix drip for volume overload; aim for negative fluid balance * Hx of Atrial Fibrillation - on anticoagulation with Coumadin - INR at 2.1 today. - holding metoprolol as above - no RVR (bradycardic as above) * Hyperlipidemia - holding home atorvastatin while NPO * Hx Hypertension - holding home hydralazine and metoprolol - troponin checked 06/14 not elevated, EKG without signs of ischemia. Respiratory: * Acute on chronic hypercapnia: improving with BiPAP - likely etiology of encephalopathy - patient with history of obesity hypoventilation syndrome and/or SAFIA - on home BiPAP therapy - serial ABGs showing improvement * Respiratory Acidosis: improving - pH 7.33. Bicarb 28. pCO2 52. from 06/16 - Anion gap has now closed, at 10.3, down from 12. Lactate not elevated. - BiPAP as above - no concomitant derangement * Pulmonary Hypertension - elevated pulmonary artery pressures on echo 06/13/20 - likely secondary to obesity hypoventilation syndrome and/or SAFIA - compliance with home BiPAP unknown - poor end-organ perfusion (AMS, elevated Cr) likely the result of reduced forward flow * Pleural Effusion - moderate R pleural effusion (this is chronic) - suspect secondary to diastolic CHF (from pulmonary HTN) - IV lasix as above - patient is poor candidate for thoracentesis given body habitus * Hx of COPD - unclear if patient ever had formal PFTs - does report 21 pack year history - continue home ipratropium and albuterol neb q6 prn - baseline home O2 requirement of 2-3L GI: * GERD - continue protonix - clear liquid diet, fluid restrict to 1500 ml RENAL/LYTES: * Acute on Chronic Kidney Injury - baseline Cr 1.2-1.4 - Cr at 3.5, up from 3.43 - BUN at 86, ratio 25 - urine output improved to 925 ml over last 12 hours, although this was with significant diuretic administration as above - suspect secondary to ATN given pseudomonal UTI and cardiorenal syndrome (poor forward flow, reduced venous return) - nephrology following - trend BMP : - Block in place, strict I/Os ENDO: * Type II diabetes Mellitus - A1c at goal at 6.1 on 06/13/20 - pharmacy glycemic consult - ICU protocol for hypoglycemia * Hypothyroidism - TSH WNL - continue home dose levothyroxine HEME: * Normocytic Anemia - Hgb at 7.2 - MCV 91 (baseline Hgb ~9) - no sources of active bleeding on exam - iron level low at 18 on 05/28/20 - hold home iron supplement in setting of active infection - trend CBC ID: * UTI - Urine culture obtained 06/12/20 growing frey sensitive pseudomonas - patient afebrile. WBC normal. procal neg - blood cultures showing no growth through 48 hours - patient does have signs of end organ damage (elevated Cr, AMS), may be secondary to the above etiologies vs. sepsis. - Lactate not elevated - continue Zosyn (day 4) - Nasal MRSA neg LINES/IV ACCESS: Block, R US peripheral line CODE STATUS: Full DVT PROPHYLAXIS: therapeutic on Coumadin Thank you for allowing us to participate in the care of this patient. Please refer to my attending physician's documentation for any further recommendations. Admission and Anticipated Discharge Date Admission Date: June 12, 2020 Supervising Physician Co-Signing Physician Notes Dr. Mehta Was the resident-physician during care of patient. I separately ev aluated patient for mota portions of the history and the exam. I was present during the critical portion of medical decision making, and I discussed the case with the resident. I generally agree with the findings and plan except for any additions/exceptions noted. Patient's mental status is clearing. We are trying him on an oxygen mask today. We will see how he does without BiPAP during the day. He should be on BiPAP at all times while sleeping. He is super morbidly obese and has OHS/SAFIA. He has secondary pulmonary hypertension (WHO group 2 and 3). He is currently on a Lasix drip. Creatinine stable at 3.5. Unfortunately, he has not diuresing as well as we would like. We are increasing the Lasix drip to 30 mg an hour. Metolazone was ordered by nephrology. Appreciate their input. We will need to consider switching to Bumex drip. He would be a very difficult patient from a perspective of insertion of dialysis catheter given his morbid obesity, intermittent delirium and his anticoagulated status. Continue warfarin for his history of atrial fibrillation. Bradycardia appears to be improved today. Continue Zosyn for Pseudomonas UTI. Patient is safe for downgrade to telemetry. Subjective No acute events overnight. Mr. Douglass asked for his soft restraints to be removed, yet attempted to remove medical equipment shortly after they were discontinued. Review of Systems Cardiovascular: + dyspnea; no chest pain Physical Exam Constitutional: + morbidly obese Eyes: + anicteric sclerae ENMT: external ear and nose normal, oropharynx normal Neck: normal visual inspection and trachea midline Respiratory: no cough Auscultation: + diminished lung sounds and + wheezes (diffusely throughout) Cardiovascular: Rate/Rhythm: regular rhythm and + bradycardic Heart Sounds: normal S1 and normal S2; no murmur and no cardiac rub Vessels: no JVD and no carotid bruit Extremities: + pedal edema (+2 bilaterally to the thigh) Gastrointestinal (Abdomen): normal bowel sounds, soft, nontender, no hepatosplenomegaly Skin: no rashes, warm and dry + dry skin, + purpura (R upper extremity ) and + nails dystrophic Neurologic: Myoclonic jerks Psychiatric: Orientation: alert, oriented to person and oriented to time (knew year not month); + not oriented to place Genitourinary: Block catheter in place, draining yellow urine without visible blood clots Results & Data Results & Data ([facility]) Vital Signs (Past 12 Hours) Vital Signs Temp Pulse Pulse Resp BP Pulse Ox 06/17/20 05:06 62 18 121/59 L 97 06/17/20 05:00 81 18 97 06/17/20 04:30 69 19 97 06/17/20 04:06 37.0 C 62 18 120/68 97 06/17/20 04:00 59 L 17 98 06/17/20 03:47 61 21 129/61 99 06/17/20 03:38 69 27 H 50/40 L 98 06/17/20 03:30 61 21 96 06/17/20 03:17 74 25 H 97 06/17/20 03:00 61 20 96 06/17/20 02:37 63 24 97/68 L 99 06/17/20 02:30 86 33 H 99 06/17/20 02:07 67 23 140/99 97 06/17/20 02:00 113 H 21 97 06/17/20 01:37 60 16 114/70 98 06/17/20 01:30 22 95 06/17/20 01:06 64 26 H 139/118 H 98 06/17/20 01:05 64 64 24 98 06/17/20 01:00 59 L 16 06/17/20 00:59 63 18 138/99 97 06/17/20 00:30 58 L 14 97 06/17/20 00:00 37.0 C 71 24 97 06/16/20 23:37 27 H 133/64 100 06/16/20 23:30 114 H 22 97 06/16/20 23:07 79 18 125/63 97 06/16/20 23:00 59 L 23 96 06/16/20 22:36 62 19 113/60 99 06/16/20 22:30 25 H 96 06/16/20 22:18 61 24 97 06/16/20 22:16 61 19 114/58 L 97 06/16/20 21:37 21 119/65 97 06/16/20 20:38 66 21 128/76 96 06/16/20 20:30 62 62 26 H 99 06/16/20 20:11 36.8 C 65 18 126/75 98 06/16/20 20:00 63 21 99 06/16/20 19:30 23 97 Resident Activity Tracking Resident Involvement: Resident Care Provided Care Provided: Adult Hospital Medicine
[2020-06-17] MEDS: INSULIN GLARGINE SOLOSTAR 100 UNITS/ML 3 ML PEN SC SCH ×2 (08:46→21:42)
[2020-06-17] MEDS: NYSTATIN POWDER 15GM BTL EXT SCH ×2 (08:48→21:35)
[2020-06-17] MEDS: metOLazone 5 MG TABLET PO SCH (08:57)
--- NOTE | 2020-06-17 09:18 | Billing Data ---
Date of Service June 17, 2020 Coding Level of Care Code 14428 Initial Inpt Care Lvl 3
[2020-06-17] MEDS ORDERED: Nursing to Pharmacy Communication SCH (09:30)
[2020-06-17] MEDS: CEFEPIME 2,000 MG in SYRINGE 0 ML IV SCH ×2 (10:49→21:46)
[2020-06-17] MEDS: FAMOTIDINE 20 MG in SYRINGE 3 ML IV SCH (10:52)
[2020-06-17] MEDS: FUROSEMIDE IV SCH (10:52)
[2020-06-17] MEDS: LEVOTHYROXINE SODIUM 200 MCG TABLET PO SCH (11:11)
[2020-06-17] MEDS: LEVOTHYROXINE SODIUM 25 MCG TABLET PO SCH (11:12)
[2020-06-17] MEDS ORDERED: INSULIN ASPART 100 UNITS/ML 3 ML PEN SC SCH (12:00)
--- NOTE | 2020-06-17 12:33 | Nephrology Progress Note ---
Date of Service June 17, 2020 Assessment & Plan (1) ELVI (acute kidney injury): Acute kidney injury likely multifactorial including ATN in setting of Pseudomonas UTI and cardiorenal syndrome. Urine output is starting to seed cone picker. Creatinine fairly stable at 3.5. No indication for dialysis. -We will continue Lasix drip at 30 mg/h. -Add metolazone 5 mg daily -Daily BMP and weights -Input and output. (2) Acute and chronic respiratory failure: Due to acute CHF exacerbation and obesity hypoventilation syndrome. Patient is on BiPAP most of the time but now on oxygen nasal cannula. Continue on Lasix dose as above Cardiology on board. (3) UTI (urinary tract infection): Urine culture positive for Pseudomonas on zosyn renally dose. Admission and Anticipated Discharge Date Admission Date: June 12, 2020 Subjective Seen for ELVI and volume overload. Feels better today. He was on BiPAP last night but now on nasal cannula. Seen together with palliative care. Review of Systems Review of Systems: All systems reviewed & are unremarkable except as noted in HPI & below Physical Exam Physical Exam: General exam: Obese male, appears comfortable, no acute distress on oxygen nasal cannula HEENT: Pupils are equal and reactive to light Neck: No JVD, neck is supple trachea is midline Respiratory system: Clear breath sounds bilaterally. Gastrointestinal: Abdomen is soft, non distended, non tender, bowel sounds are present CVS: Regular rate and rhythm. No murmurs, rubs or gallops Musculoskeletal: No joint or muscle tenderness Extremities: Non tender, 1+ edema, peripheral pulses are present Neuro: Oriented, no tremors, no focal neurological deficits Skin: No rashes Results & Data ([facility]) Vital Signs (Past 12 Hours) Vital Signs Temp Pulse Pulse Resp BP Pulse Ox 06/17/20 08:01 65 22 98 06/17/20 08:00 36.9 C 64 24 142/54 H 96 06/17/20 05:06 62 18 121/59 L 97 06/17/20 05:00 81 18 97 06/17/20 04:30 69 19 97 06/17/20 04:06 37.0 C 62 18 120/68 97 06/17/20 04:00 59 L 17 98 06/17/20 03:47 61 21 129/61 99 06/17/20 03:38 69 27 H 50/40 L 98 06/17/20 03:30 61 21 96 06/17/20 03:17 74 25 H 97 06/17/20 03:00 61 20 96 06/17/20 02:37 63 24 97/68 L 99 06/17/20 02:30 86 33 H 99 06/17/20 02:07 67 23 140/99 97 06/17/20 02:00 113 H 21 97 06/17/20 01:37 60 16 114/70 98 06/17/20 01:30 22 95 06/17/20 01:06 64 26 H 139/118 H 98 06/17/20 01:05 64 64 24 98 06/17/20 01:00 59 L 16 06/17/20 00:59 63 18 138/99 97 Laboratory Results 06/17/20 05:57 06/17/20 06/17/20 06/17/20 05:05 05:05 05:57 WBC 7.14 RBC 2.45 L MCV 90.6 MCH 29.4 MCHC 32.4 RDW Std Deviation 70.7 H RDW Coeff of Neena 21.4 H Plt Count 207 MPV 10.1 Phosphorus Cancelled 3.3
--- NOTE | 2020-06-17 13:21 | Pharmacy Report ---
Pharmacy Glycemic Short Note 2 - Date of Service June 17, 2020 - Glycemic Short BSG Results (Last 24 hours): 06/16/20 06/16/20 06/16/20 16:11 20:03 23:56 Glucose POC Glucose 127 H 122 H 122 H 06/17/20 06/17/20 06/17/20 03:34 05:05 05:57 Glucose Cancelled 111 H POC Glucose 115 H 06/17/20 06/17/20 07:25 11:07 Glucose POC Glucose 119 H 141 H OUTPATIENT ANTIDIABETIC REGIMEN: * Lantus 10 units Q HS * Novolog 12 units w/ breakfast + 12 units w/ lunch + 14 units w/ dinner * A1c = 6.1% 06/13/20 ASSESSMENT: 06/17 * BSGs again well controlled over the last 24 hrs * Patient did require ~ 20units of insulin over the last 24 hrs while essentially NPO. His diet will be advanced today however * Will continue w/ the current Lantus scale. * Will also continue to provide a portion of the "basal" insulin needs w/ Novolog, however will now administer ACHS rather than Q 4 hrs 06/16 * BSGs well controlled over last 24 hrs with current insulin orders * Will continue with the same for next 24 hrs * Diuresis attempts continue with escalated bolus doses loop and thiazide diure tics 06/15 * Patient admitted to ICU for ADHF, resp distress, worsening mental status and ELVI * BSGs have been > 140 x 2, as a result ICU hyperglycemia protocol has triggered pharmacy consult * Patient is now receiving inodilator support, furosemide drip and Zosyn for possible UTI +/- pulm infxn * He is currently NPO, however fasting BSGs are elevated > 180 * Given NPO and uncertain insulin needs w/ changing stressors will initiate SQ basal/bolus regimen that will utilize Novolog to provide a portion of the "basal" insulin needs to lessen the risk of prolonged hypoglycemia with larger Lantus doses. PLAN FOR INPATIENT GLYCEMIC CONTROL: * Basal insulin * Lantus SQ BID per scale * 0 units if BSG less than 110 * 5 units if BSG 110 or greater * Bolus insulin * NovoLog per scale ACHS: PLAN FOR DISCHARGE: * may resume outpt insulin regimen on discharge if no report of frequent hypoglycemic episodes
[2020-06-17 13:27] LABS: ANCA Screen Negative (Negative); Anti Nuclear Antibody Screen POSITIVE (NEGATIVE); Rheumatoid Factor <14 IU/mL (<14)
--- NOTE | 2020-06-17 14:31 | Palliative Care Consultation ---
Date of Consultation June 17, 2020 Assessment & Plan (1) Palliative care encounter: Mr. Javid Douglass is a 64 year old male who presented to the [facility] on 06/13 with shortness of breath and altered mental status. He has a BMI >76 and significant chronic hypercapnia. The patient was admitted to the ICU and was placed on BiPAP. He has had symptoms of bradycardia and was placed on Dobutamine, which has since been discontinued. The patient does not have an assigned decision maker. Palliative care was consulted to discuss goals of care. I met with the patient twice in room 107. He was able to open his eyes and answer simple questions. He is on 4 LNC and SpO2 ranging 90-94%. He has been relying more on the BiPAP machine for his hypercapnia. He does have nasal bridge breakdown on the left side. In having a conversation with Mr. Douglass he was able to converse, but said that he was in [place]. I am not certain that he has the capacity for complex decision making at this time, due to hypercapnia and continued waxing/waning confusion. He was unable to tell me what to do if you are driving and see a red light and also could not tell me how to take food out of the oven when its done being cooked. The patient does not have an established POA, but has 3 adult siblings: Allyson in [place], Lonnie, whom he lives with, and Patricio who lives in [place]. The patient stated that he wanted "E.M." to be his established decision maker, but we can't distinguish who EM is. I called Lonnie but no VM was set up. I called his niece, Selam, who gave me Jose phone number: [phone]. I spoke at length with Allyson who stated that she saw him on 06/07 and he didn't look great then and was making comments regarding "I'm getting tired" We talked about his code status and that if it would get to the point that he would require intubation, that it would not prove beneficial for any curative measure. Explained that he likely would require tracheostomy thereafter which she said "He wouldn't want that". Also, I then did speak with Patricio, who called in and agreed he would not want fdc life sustaining treatment. All questions answered. He stated that Allyson and Patricio were going to discuss together. In the [facility], with no decision maker legally documented, all next of kin would need to agree, which would be all 3 siblings. Lonnie, per the rest of the family, has intellect disability, and would not be an involved decision maker. Will await a call back/follow up with Allyson and Patricio for code status change. UPDATE I talked with Allyson who told me that the family agreed that they would like to continue current treatment plan for now,including him remaining a Full Code. They would like to pursue him returning home with hospice services. This individual would qualify for hospice services with a diagnosis of CHF or COPD They do not have any equipment at home , but with a BMI > 76 need to consider for Hospice equipment Family wants him to remain a Full code while inpatient and then transition him to DNR upon discharge. Allyson has been point personal consultant. [phone] (2) Acute on chronic respiratory failure with hypoxia and hypercapnia: (3) Atrial fibrillation: (4) Acute alteration in mental status: (5) CHF (congestive heart failure): Heart failure chronicity: acute on chronic Heart failure type: unspecified Qualified Code(s): I50.9 - Heart failure, unspecified History of Present Illness Reason for Consultation: Goals of care Requesting Physician: Dr. Mehta Attending Physician: Sanjay Rocha MD History of Present Illness Mr. Javid Douglass is a 64 year old male who presented to the [facility] on with shortness of breath and altered mental status. He has a BMI >76 and significant chronic hypercapnia. The patient was admitted to the ICU and was placed on BiPAP. He has had symptoms of bradycardia and was placed on Dobutamine, which has since been discontinued. The patient does not have an assigned decision maker. Palliative care was consulted to discuss goals of care. Please see A/P for further details. Thank you for involving palliative care with this patient. Allergies Allergy/AdvReac Type Severity Reaction Status Date / Time pollen extracts Allergy Mild sneezing/watery Verified 06/12/20 21:21 eyes Home Medications Medication Instructions Recorded Confirmed Type atorvastatin 10 mg PO HS 10/24/18 06/12/20 History levothyroxine 25 mcg PO QAM 10/24/18 06/12/20 History levothyroxine 200 mcg PO QAM 10/24/18 06/12/20 History metoprolol succinate 25 mg PO QAM 10/24/18 06/12/20 History pantoprazole 40 mg tablet,delayed 40 mg PO BID 02/11/19 06/12/20 History release albuterol sulfate 2 puff INHALATION QID 11/29/19 06/12/20 History fluoxetine 10 mg PO DAILY 11/29/19 06/12/20 History hydralazine 50 mg PO QID 11/29/19 06/12/20 History insulin aspart U-100 [Novolog 1 sliding scale dose SUBCUT TID 11/29/19 06/12/20 History U-100 Insulin aspart] Anoro Ellipta 1 ea INHALATION DAILY #14 ea 12/05/19 06/12/20 Rx Calmoseptine 1 applic TOPICAL TID PRN 05/17/20 06/12/20 History fluticasone propionate 2 spray INTRANASAL DAILY 05/17/20 06/12/20 History furosemide 80 mg PO BID 05/17/20 06/12/20 History gabapentin 100 mg PO TID 05/17/20 06/12/20 History linaclotide 145 mcg PO QAM 05/17/20 06/12/20 History nystatin 1 applic TOPICAL BID 05/17/20 06/12/20 History tramadol 50 mg PO BID 05/17/20 06/12/20 History tramadol 50 mg PO Q4 PRN 05/17/20 06/12/20 History warfarin 1 - 2 mg PO DAILY 05/17/20 06/12/20 History insulin glargine [Lantus Solostar 10 unit SC HS #3 ml 05/21/20 06/12/20 Rx U-100 Insulin] sodium chloride [Saline Nasal Mist] 1 spray INTRANASAL BID PRN 06/12/20 06/12/20 History vitamin B zkhlmo-N-PC-zinc cit 1 tab PO DAILY 06/12/20 06/12/20 History Patient History Medical History (Updated 06/17/20 @ 15:44 by [employer] Henriquez) Anemia Chronic diastolic heart failure COPD (chronic obstructive pulmonary disease) inhalers daily/prn and oxygen 2L n/c Diabetes mellitus, type 2 Elevated troponin I level Graves disease History of gastric ulcer Hyperlipidemia Hypertension Hypothyroidism Hypoxia Left bundle branch block chronic Morbid obesity with BMI of 50.0-59.9, adult Obesity hypoventilation syndrome On home oxygen therapy 2L N/C at all times SAFIA (obstructive sleep apnea) cpap--2L oxygen Palliative care encounter Surgical History History of angioplasty 2003 @ [facility] [place]--no stents History of colonoscopy History of endoscopic sinus surgery History of esophagogastroduodenoscopy (EGD) History of tooth extraction History of wisdom tooth extraction S/P correction of deviated nasal septum Family History Mother Diabetes Hypertension Brother , dies at 44 yo from [place] Heart disease Other No family history of adverse response to anesthesia Social History Smoking Status: Current some day smoker Tobacco Type: Cigarettes Years Smoked: 60; Cigarettes Per Day: 4; Second Hand Exposure: Yes; Hx Alcohol Use: No Hx Substance Use: No Preferred Language: Setswana Communication Ability: Impaired Patient Attendant Required: Voice Beliefs That Will Affect Care: None marital status: Single Current Living Situation: Family Current Living Situation Comment: Lives with Brother current occupational status: unemployed Other Information That Helps Us Care for You: No Feels Safe at Home: Yes Safety Concerns: Feels Safe At This Time Assistive Devices: BiPap and Oxygen - Continuous Review of Systems Review of Systems: [place] Assessment Scale - Revised Tiredness: 2/3 Pain: 0/3 Anxiety: 0/3 Shortness of breath: 2/3 PPS: 30% Physical Exam Constitutional: + acute distress, + morbidly obese and + lethargic Neck: trachea midline, + short neck and + thick neck Respiratory: + labored breathing and + uses accessory muscles Auscultation: + diminished lung sounds and + rhonchi Cardiovascular: Rate/Rhythm: regular rate and regular rhythm Extremities: normal capillary refill and + edema Gastrointestinal (Abdomen): normal bowel sounds, soft, nontender, no hepatosplenomegaly Skin: no rashes, warm and dry Psychiatric: Orientation: alert, oriented to person and cooperative Insight: + poor insight Judgement: + poor judgement Results & Data ([facility]) Vital Signs (Past 12 Hours) Vital Signs Temp Pulse Pulse Resp BP Pulse Ox 06/17/20 13:40 86 24 94 06/17/20 08:01 65 22 98 06/17/20 08:00 36.9 C 64 24 142/54 H 96 06/17/20 05:06 62 18 121/59 L 97 06/17/20 05:00 81 18 97 06/17/20 04:30 69 19 97 06/17/20 04:06 37.0 C 62 18 120/68 97 06/17/20 04:00 59 L 17 98 06/17/20 03:47 61 21 129/61 99 06/17/20 03:38 69 27 H 50/40 L 98 06/17/20 03:30 61 21 96 06/17/20 03:17 74 25 H 97 06/17/20 03:00 61 20 96 06/17/20 02:37 63 24 97/68 L 99 06/17/20 02:30 86 33 H 99 PG Care Time/CCT Total # of Minutes Spent Total Time Spent with Patient: Total time spent is greater than 50% in coordination of care (as documented) at patient's floor/unit and/or counseling patient: 100 Coding Level of Care Code 39703 Inpt Consult Level 4 Diagnoses Palliative care encounter Z51.5 Acute on chronic respiratory failure with hypoxia and hypercapnia J96.21; J96.22 Atrial fibrillation I48.91 Acute alteration in mental status R41.82 CHF (congestive heart failure) I50.9 Heart failure chronicity: acute on chronic Heart failure type: unspecified Time Spent (min) 100 Time Spent Midlevel total time spent 100 minutes with > 50% of that time assessing the patient, discussing goals of care with the family (Lachelle), and collaborating with IDT
[2020-06-17] MEDS ORDERED: WARFARIN SOD 4 MG TAB PO SCH (16:00)
[2020-06-17] MEDS ORDERED: WARFARIN SOD 1 MG TAB PO ONE (16:00)
[2020-06-17] MEDS ORDERED: WARFARIN SOD 0.5 MG TAB PO ONE (16:00)
--- NOTE | 2020-06-17 16:04 | Cardiology Progress Note ---
Date of Service June 17, 2020 Assessment & Plan (1) Acute on chronic respiratory failure with hypoxia and hypercapnia: (2) Acute on chronic right heart failure: (3) Tachycardia-bradycardia syndrome: (4) Acute on chronic renal failure: (5) Anemia: 64-year-old patient admitted with acute on chronic respiratory failure, acute on chronic diastolic/right-sided heart failure, with acute on chronic renal insufficiency. Titration of Lasix infusion and addition of metolazone today as per direction of nephrology. Monitor CBC daily. Maintain hemoglobin greater than 8.0 g/dL. BiPAP per direction of pulmonary/critical care. No medication changes from a cardiovascular perspective. Admission and Anticipated Discharge Date Admission Date: June 12, 2020 Subjective Patient seen and examined at the bedside. Fluid balance mildly negative despite titration of intravenous Lasix infusion. Metolazone added by nephrology. Patient offers no complaints. Telemetry demonstrates sinus rhythm with a bundle branch block. No sustained tachycardia dysrhythmias. Review of Systems Review of Systems: All systems reviewed & are unremarkable except as noted in Subjective Physical Exam Constitutional: well developed, + ill appearing and + morbidly obese Respiratory: normal respiratory effort; no respiratory distress, no labored breathing and no retractions Auscultation: + diminished lung sounds (Bilateral, poor effort) and + wheezes (End expiratory wheeze bilateral); no crackles, no rales and no rhonchi Cardiovascular: Rate/Rhythm: regular rate, regular rhythm and + bradycardic Heart Sounds: normal S1 and normal S2; no murmur and no cardiac rub Vessels: no JVD (Difficult to assess due to body habitus) and no carotid bruit Extremities: + edema (2+ bilateral lower extremity pitting edema up to the mid abdomen) Gastrointestinal (Abdomen): Inspection/Auscultation: normal bowel sounds and + abdominal edema Percussion/Palpation: abdomen nontender, no guarding and abdomen not rigid Skin: + ecchymosis (Right upper extremity) Neurologic: moves all extremities; no focal motor deficits Psychiatric: Orientation: alert and oriented x 3 Apperance: + disheveled Results & Data ([facility]) Vital Signs (Past 12 Hours) Vital Signs Temp Pulse Pulse Resp BP Pulse Ox 06/17/20 13:40 86 24 94 06/17/20 08:01 65 22 98 06/17/20 08:00 36.9 C 64 24 142/54 H 96 06/17/20 05:06 62 18 121/59 L 97 06/17/20 05:00 81 18 97 06/17/20 04:30 69 19 97 06/17/20 04:06 37.0 C 62 18 120/68 97 (1) Anemia Anemia type: unspecified type Qualified Code(s): D64.9 - Anemia, unspecified (2) Acute on chronic renal failure Acute renal failure type: unspecified Chronic kidney disease stage: stage 3 (moderate) Chronic kidney disease stage 3 subtype: stage 3a (GFR 45-59) Qualified Code(s): N17.9 - Acute kidney failure, unspecified; N18.31 - Chronic kidney disease, stage 3a
[2020-06-17] MEDS ORDERED: SODIUM CHLORIDE 0.9% 250 ML IV PRN (19:42)
--- NOTE | 2020-06-17 19:42 | Hospitalist Progress Note ---
Date of Service June 17, 2020 Assessment & Plan (1) Acute and chronic respiratory failure: Acute on chronic right heart failure Obstructive sleep apnea on BiPAP Chronic obstructive pulmonary disease Morbid Obesity Bilateral Pleural Effusions -This is a morbidly obese patient with multiple reasons for acute on chronic respiratory failure. Back in previous hospitalization, patient had 05/17/2020 CT scan that visualized well the bilateral pleural effusions for which the right sided lung durant had more effusion than the left in addition to other known health issues. -as per the 06/12/2020 ED notes that patient "presents to the ER with about 3 or 4 days of shortness of breath. Today, his brother thought he seemed more confused. The ambulance was called. Patient was on BiPAP when the ambulance arrived. He had a low O2 saturation of around 89% on 4 L, the patient typically wears 2.5 L on a daily basis." [place] [address] pg/ml -his admission 06/12/2020 admission CXR "Moderate right pleural effusion is noted. There is no pneumothorax. There is a small left pleural effusion. Asymmetric right hemithorax opacification is noted. In part, this is due to the pleural effusion. Patient is rotated. Cardiomegaly is noted. There is suspected mild pulmonary edema. Findings have slightly progressed since prior exam" -Patient's home medication of oral Lasix 80 mg BID has been changed by admitting physician Dr. Ingram to 60 mg IV q12 hours while having patient on BIPAP -hospitalist have modified the Lasix dosing on 06/14/2020 as 40 mg IV TID however nursing reported generally low urine output 06/17 Off BiPAP Output improving Continue Lasix drip Metolazone added Acute metabolic encephalopathy on admission -his mental status may wax and wane due to the breathing issues, BIPAP with sleep or somnolence has been given -06/15/2020: patient is more somnolent this day time, apparently he received ativan by night time hospitalist for agitation, have discussed concerns of acute respiratory failure which may require intubation if his condition does not improve. ICU Dr. Huynh accept patient to ICU for further monitoring. will keep patient NPO for now until ICU re-assessment 06/17/2020 More alert today but still remains drowsy Anemia no melena noted from Acute on CKD? on Famotidine Globin 7 We will order 1 unit of packed RBCs per cardiology recommendations to monitor hemoglobin more than 8 Bradycardia on admission -holding beta blockers at this time, (of note that his previous hospitalization had listed amiodarone but not currently active on current home med list ) his amiodarone from previous hospitalization has not been given on this admission History of paroxysmal ventricular tachycardia History of atrial flutter Chronic anticoagulation with coumadin -mildly elevated INR on presentation as 3.3. -INR 2.1 -Coumadin on hold Acute kidney injury on chronic kidney disease stage III In the setting of UTI, possible cardiorenal syndrome -Baseline creatinine around 1.2 to 1.4 but this admission creatinine of 3.2. - crea still at 3.5 On a Lasix drip, metolazone added UTI, Pseudomonas On cefepime Hypertension -hold the oral home dose hydralazine and statin Diabetes Mellitus Type 2 with half-way current use of insulin -has been on insulin, monitor blood sugar, while in ICU Gastroesophageal reflux disease -Continue Protonix Hypothyroidism -home dose oral synthroid to be held for now. TSH normal Depression -hold oral fluoxetine for now Admission and Anticipated Discharge Date Admission Date: June 12, 2020 Subjective Follow-up for acute encephalopathy, acute renal failure, etc. Seen off BiPAP, on oxygen mask, not in distress, sleeping but easily awakened Answers a few questions, awake oriented to place and person Drifts back to sleep easily Denies shortness of breath, chest pain, dizziness, palpitations, abdominal pain, nausea No melena or hematochezia noted No other symptom Review of Systems Review of Systems: All systems reviewed & are unremarkable except as noted in Subjective Physical Exam Physical Exam: General- oriented x 2, not in distress, speaks in sentences with no effort or accessory muscle use Eyes- anicteric Neck- no JVD Lungs-positive decreased breath sounds at the bases, mild crackles, intermittent wheezing, faint Heart- normal rate, irregularly irregular rhythm; no murmurs Abdomen- normal bowel sounds, nondistended, soft, nontender Extremities-leg edema, no calf tenderness Neuro-drowsy, oriented x 2; no gross focal neurologic deficits Skin- warm & dry Results & Data Results & Data ([facility]) Vital Signs (Past 12 Hours) Vital Signs Temp Pulse Pulse Resp BP Pulse Ox 06/17/20 19:27 63 20 100 06/17/20 18:30 67 21 100 06/17/20 18:06 66 22 121/52 L 100 06/17/20 18:00 76 19 100 06/17/20 17:30 68 17 100 06/17/20 17:08 67 24 170/98 H 100 06/17/20 17:00 108 H 21 06/17/20 16:30 74 17 06/17/20 16:00 92 H 33 H 06/17/20 15:30 66 30 H 06/17/20 15:00 65 28 H 06/17/20 14:30 17 06/17/20 14:00 64 16 06/17/20 13:40 86 24 94 06/17/20 13:37 30 H 95 06/17/20 13:30 71 25 H 94 06/17/20 13:00 70 20 98 06/17/20 12:38 66 26 H 106/55 L 100 06/17/20 12:30 64 24 94 06/17/20 12:07 93 H 24 95 06/17/20 12:00 65 22 99 06/17/20 11:36 74 21 94/63 L 98 06/17/20 11:30 72 25 H 98 06/17/20 11:07 64 24 129/64 98 06/17/20 11:00 64 29 H 97 06/17/20 10:37 65 22 125/67 97 06/17/20 10:30 70 21 98 06/17/20 10:06 63 26 H 109/79 96 06/17/20 10:00 64 20 97 06/17/20 09:36 66 18 121/84 98 06/17/20 09:30 25 H 97 06/17/20 09:06 74 26 H 111/49 L 97 06/17/20 09:00 65 19 96 06/17/20 08:36 63 23 121/66 98 06/17/20 08:30 20 97 06/17/20 08:01 65 22 98 06/17/20 08:00 36.9 C 64 24 142/54 H 96 Laboratory Results Laboratory Results - last 24 hr 06/14/20 06/16/20 06/16/20 11:17 06:31 20:03 WBC RBC Hgb Hct MCV MCH MCHC RDW Std Deviation RDW Coeff of Neena Plt Count MPV Immature Gran % (Auto) Neut % (Auto) Lymph % (Auto) [place] % (Auto) Eos % (Auto) Baso % (Auto) Neut # (Auto) Lymph # (Auto) [place] # (Auto) Eos # (Auto) Baso # (Auto) Immature Gran # (Auto) Anisocytosis PT INR Sodium Potassium Chloride Carbon Dioxide Anion Gap BUN Creatinine Est Cr Clr Drug Dosing Est GFR ( Amer) Est GFR (Non-Af Amer) BUN/Creatinine Ratio Glucose POC Glucose 122 H Calcium Phosphorus Magnesium Rheumatoid Factor <14 ALVINA Screen POSITIVE A ANCA Negative Crossmatch See Detail 06/16/20 06/17/20 06/17/20 23:56 03:34 05:05 WBC RBC Hgb Hct MCV MCH MCHC RDW Std Deviation RDW Coeff of Neena Plt Count MPV Immature Gran % (Auto) Neut % (Auto) Lymph % (Auto) [place] % (Auto) Eos % (Auto) Baso % (Auto) Neut # (Auto) Lymph # (Auto) [place] # (Auto) Eos # (Auto) Baso # (Auto) Immature Gran # (Auto) Anisocytosis PT Cancelled INR Cancelled Sodium Potassium Chloride Carbon Dioxide Anion Gap BUN Creatinine Est Cr Clr Drug Dosing Est GFR ( Amer) Est GFR (Non-Af Amer) BUN/Creatinine Ratio Glucose POC Glucose 122 H 115 H Calcium Phosphorus Magnesium Rheumatoid Factor ALVINA Screen ANCA Crossmatch 06/17/20 06/17/20 06/17/20 05:05 05:05 05:57 WBC 7.14 RBC 2.45 L Hgb 7.2 L Hct 22.2 L MCV 90.6 MCH 29.4 MCHC 32.4 RDW Std Deviation 70.7 H RDW Coeff of Neena 21.4 H Plt Count 207 MPV 10.1 Immature Gran % (Auto) 0.7 Neut % (Auto) 66.8 Lymph % (Auto) 16.1 [place] % (Auto) 12.9 Eos % (Auto) 2.7 Baso % (Auto) 0.8 Neut # (Auto) 4.77 Lymph # (Auto) 1.15 L [place] # (Auto) 0.92 H Eos # (Auto) 0.19 Baso # (Auto) 0.06 Immature Gran # (Auto) 0.05 H Anisocytosis Present PT 21.7 H INR 2.1 H Sodium Cancelled Potassium Cancelled Chloride Cancelled Carbon Dioxide Cancelled Anion Gap Cancelled BUN Cancelled Creatinine Cancelled Est Cr Clr Drug Dosing Cancelled Est GFR ( Amer) Cancelled Est GFR (Non-Af Amer) Cancelled BUN/Creatinine Ratio Cancelled Glucose Cancelled POC Glucose Calcium Cancelled Phosphorus Cancelled Magnesium Cancelled Rheumatoid Factor ALVINA Screen ANCA Crossmatch 06/17/20 06/17/20 06/17/20 05:57 07:25 11:07 WBC RBC Hgb Hct MCV MCH MCHC RDW Std Deviation RDW Coeff of Neena Plt Count MPV Immature Gran % (Auto) Neut % (Auto) Lymph % (Auto) [place] % (Auto) Eos % (Auto) Baso % (Auto) Neut # (Auto) Lymph # (Auto) [place] # (Auto) Eos # (Auto) Baso # (Auto) Immature Gran # (Auto) Anisocytosis PT INR Sodium 138 Potassium 4.0 Chloride 103 Carbon Dioxide 26 Anion Gap 9.0 BUN 85 H Creatinine 3.50 H Est Cr Clr Drug Dosing 34.0 Est GFR ( Amer) 19.9 Est GFR (Non-Af Amer) 17.2 BUN/Creatinine Ratio 24.1 H Glucose 111 H POC Glucose 119 H 141 H Calcium 8.8 Phosphorus 3.3 Magnesium 2.4 Rheumatoid Factor ALVINA Screen ANCA Crossmatch
[2020-06-18] MEDS: IPRATROPIUM BROMIDE NEB SOLN 0.02% 2.5 ML VIAL INH SCH ×4 (00:01→19:19)
[2020-06-18] MEDS: LEVALBUTEROL 1.25MG/0.5ML NEB INH SCH ×4 (00:02→19:19)
[2020-06-18] MEDS: LEVOTHYROXINE SODIUM 200 MCG TABLET PO SCH (05:38)
[2020-06-18] MEDS: FUROSEMIDE IV SCH (05:38)
[2020-06-18] MEDS: LEVOTHYROXINE SODIUM 25 MCG TABLET PO SCH (05:38)
[2020-06-18 05:44] LABS: INR 2.3 (0.9-1.1); Prothrombin Time 23.6 Seconds (9.0-12.0)
[2020-06-18] MEDS: INSULIN ASPART 100 UNITS/ML 3 ML PEN SC SCH ×4 (08:15→21:34)
[2020-06-18] MEDS: INSULIN GLARGINE SOLOSTAR 100 UNITS/ML 3 ML PEN SC SCH ×2 (08:15→21:33)
[2020-06-18] MEDS: metOLazone 5 MG TABLET PO SCH (08:17)
[2020-06-18] MEDS: NYSTATIN POWDER 15GM BTL EXT SCH ×2 (08:18→21:26)
[2020-06-18 08:58] LABS: Basophils # (auto) 0.07 K/uL (0-0.2); Basophils % (auto) 1.2 %; Eosinophils # (auto) 0.34 K/uL (0-0.5); Eosinophils % (auto) 5.8 %; Hemoglobin 7.5 g/dL (14.0-18.0); Immature Granulocytes # (auto) 0.04 K/uL (0.00-0.02); Immature Granulocytes % (auto) 0.7 %; Lymphocytes # (auto) 1.45 K/uL (1.2-3.4); Lymphocytes % (auto) 24.8 %; Mean Corpuscular Hemoglobin 28.3 pg (25-34); Mean Corpuscular Hgb Conc 31.3 g/dL (32-36); Mean Corpuscular Volume 90.6 fL (80-100); Mean Platelet Volume 8.5 fL (7.4-10.4); Monocytes # (auto) 0.94 K/uL (0.11-0.59); Monocytes % (auto) 16.1 %; Neutrophils # (auto) 3.01 K/uL (1.4-6.5); Neutrophils % (auto) 51.4 %; Platelet Count 155 K/uL (130-400); RDW Coefficient of Variation 21.5 % (11.5-14.5); RDW Standard Deviation 69.7 fL (36.4-46.3); Red Blood Count 2.65 M/uL (4.7-6.1); White Blood Count 5.85 K/uL (4.8-10.8)
--- NOTE | 2020-06-18 09:19 | Nephrology Progress Note ---
Date of Service June 18, 2020 Assessment & Plan (1) Volume overload: edema and vol OL refractory to diuretics. 300 mL positive yesterday; to date about net even for I/O this admission despite aggressive diuretics. 3 admissions here since October 2019 and no bumex at any time. currently on lasix gtt at 30 mg / hr and metolazone 5 mg daily >>>consider change gtt to bumex >> 4 mg IV bolus followed by 1 mg/hr >>>consider metolazone 10 mg bid -not a dialysis candidate at this time Present on Admission?: Yes (2) Acute on chronic right heart failure: Stage 2 ELVI on CKD 3b; baseline creatinine 1.7-1.8, though baseline difficult to characterize w/ so many acute issues and few stable OP readings. Acute kidney injury multifactorial including ATN in setting of Pseudomonas UTI and cardiorenal syndrome. Creatinine has been stable in mid 3's -diuretics as above -Daily BMP and weights -Input and output. Present on Admission?: Yes (3) Acute and chronic respiratory failure: Due to acute CHF exacerbation and obesity hypoventilation syndrome. Patient is on BiPAP most of the time. -cont diuretics, consider change as above Cardiology on board. (4) UTI (urinary tract infection): Urine culture positive for Pseudomonas on zosyn renally dosed. (5) Palliative care encounter: palliative care c/s reviewed > note that pt for now to remain full code but plan is to transition home w/ hospice. follow for updates w/ goals of care Present on Admission?: Yes Admission and Anticipated Discharge Date Admission Date: June 12, 2020 Subjective seen on rounds at 1650; chart evaluated and care reviewed w/ dr estevez earlier in day; ROS limited by pt on bipap and somewhat sleepy Review of Systems Review of Systems: Other (limited markedly by bipap) Respiratory: no dyspnea (not worse) Gastrointestinal: no nausea and no vomiting Musculoskeletal: no joint pain (no mm pain) Physical Exam Constitutional: well developed, + morbidly obese, + lethargic and + mechanically ventilated (bipap); no acute distress Eyes: EOM intact bilaterally ENMT: Ears: no external ear abnormality Neck: + thick neck Respiratory: normal respiratory effort; no labored breathing Auscultation: + diminished lung sounds Cardiovascular: Rate/Rhythm: + bradycardic Extremities: + edema (1-2+) Gastrointestinal (Abdomen): normal bowel sounds, soft, nontender, no hepatosplenomegaly Musculoskeletal: Extremities: + limited ROM of extremities and + abnormal strength Skin: + turgor decreased, + skin tightening (BLe) and + erythema (BLE) Neurologic: lethargic; interactive but only to a degree Genitourinary: huang w/a mple urine Results & Data ([facility]) Vital Signs (Past 12 Hours) Vital Signs Temp Pulse Pulse Resp BP BP Pulse Ox 06/18/20 07:55 58 L 20 96 06/18/20 07:52 66 20 96 06/18/20 04:00 36.9 C 60 20 130/68 97 06/18/20 03:30 56 L 27 H 98 06/18/20 00:04 63 28 H 98 06/18/20 00:03 63 28 H 98 06/17/20 23:30 36.6 C 65 22 104/78 98 06/17/20 23:19 72 22 123/60 97 06/17/20 22:19 64 22 104/87 98 06/17/20 22:17 66 26 H 97 06/17/20 21:49 68 20 115/90 98 06/17/20 21:34 63 18 136/74 98 06/17/20 21:32 36.7 C 69 20 147/67 H 99 06/17/20 21:14 36.8 C 65 20 129/78 97 Laboratory Results 06/18/20 08:47 06/18/20 08:47
[2020-06-18 09:30] LABS: BUN Creatinine Ratio 23.2 (10-20); Calcium 9.1 mg/dl (8.5-10.1); Creatinine Clr Calc Pharmacy 33.3 ml/min; Est GFR (African American) 19.4; Est GFR (Non-African American) 16.8; Potassium 3.4 mmol/L (3.5-5.1)
[2020-06-18 10:03] LABS: Anisocytosis Present
--- NOTE | 2020-06-18 12:08 | Cardiology Progress Note ---
Date of Service June 18, 2020 Assessment & Plan (1) Acute on chronic respiratory failure with hypoxia and hypercapnia: (2) Acute on chronic right heart failure: (3) Tachycardia-bradycardia syndrome: (4) Acute on chronic renal failure: (5) Anemia: 64-year-old patient admitted with acute on chronic respiratory failure, acute on chronic diastolic/right-sided heart failure, with acute on chronic renal insufficiency. Consider transition to Bumex infusion as per nephrology recommendations. Replace electrolytes as indicated. Monitor CBC daily. Maintain hemoglobin greater than 8.0 g/dL. BiPAP per direction of pulmonary/critical care. Palliative care consulted. Admission and Anticipated Discharge Date Admission Date: June 12, 2020 Subjective Patient seen and examined at the bedside. Denies chest pain or shortness of breath. Telemetry reveals sinus rhythm. Urine output minimally negative over the past 24 hours. Renal function unchanged. Review of Systems Review of Systems: All systems reviewed & are unremarkable except as noted in Subjective Physical Exam Constitutional: well developed, + ill appearing and + morbidly obese Respiratory: normal respiratory effort; no respiratory distress, no labored breathing and no retractions Auscultation: + diminished lung sounds (Bilateral, poor effort) and + wheezes (End expiratory wheeze bilateral); no crackles, no rales and no rhonchi Cardiovascular: Rate/Rhythm: regular rate, regular rhythm and + bradycardic Heart Sounds: normal S1 and normal S2; no murmur and no cardiac rub Vessels: no JVD (Difficult to assess due to body habitus) and no carotid bruit Extremities: + edema (2+ bilateral lower extremity pitting edema up to the mid abdomen) Gastrointestinal (Abdomen): Inspection/Auscultation: normal bowel sounds and + abdominal edema Percussion/Palpation: abdomen nontender, no guarding and abdomen not rigid Skin: + ecchymosis (Right upper extremity) Neurologic: moves all extremities; no focal motor deficits Psychiatric: Orientation: alert and oriented x 3 Apperance: + disheveled Results & Data ([facility]) Vital Signs (Past 12 Hours) Vital Signs Temp Pulse Pulse Pulse Resp BP Pulse Ox 06/18/20 09:19 36.4 C L 58 L 99 H 23 113/60 99 06/18/20 08:00 58 L 06/18/20 07:55 58 L 20 96 01/01/21 07:52 66 20 96 06/18/20 04:00 36.9 C 60 20 130/68 97 06/18/20 03:30 56 L 27 H 98 (1) Acute on chronic renal failure Acute renal failure type: unspecified Chronic kidney disease stage: stage 3 (moderate) Chronic kidney disease stage 3 subtype: stage 3a (GFR 45-59) Qualified Code(s): N17.9 - Acute kidney failure, unspecified; N18.31 - Chronic kidney disease, stage 3a (2) Anemia Anemia type: unspecified type Qualified Code(s): D64.9 - Anemia, unspecified
[2020-06-18] MEDS: FAMOTIDINE 20 MG in SYRINGE 3 ML IV SCH (12:18)
[2020-06-18] MEDS: CEFEPIME 2,000 MG in SYRINGE 0 ML IV SCH ×2 (12:18→21:28)
[2020-06-18] MEDS ORDERED: SODIUM CHLORIDE 0.9% 250 ML IV PRN (13:46)
[2020-06-18] MEDS ORDERED: BUMETANIDE 4 MG in SYRINGE 0 ML IV ONE (14:00)
[2020-06-18] MEDS: BUMETANIDE 10 MG in DEXTROSE 5% 10 ML IV SCH ×2 (16:02→23:44)
--- NOTE | 2020-06-18 16:49 | Hospitalist Progress Note ---
Date of Service June 18, 2020 Assessment & Plan (1) Acute and chronic respiratory failure: Acute on chronic right heart failure Obstructive sleep apnea on BiPAP Chronic obstructive pulmonary disease Morbid Obesity Bilateral Pleural Effusions -This is a morbidly obese patient with multiple reasons for acute on chronic respiratory failure. Back in previous hospitalization, patient had 05/17/2020 CT scan that visualized well the bilateral pleural effusions for which the right sided lung durant had more effusion than the left in addition to other known health issues. -as per the 06/12/2020 ED notes that patient "presents to the ER with about 3 or 4 days of shortness of breath. Today, his brother thought he seemed more confused. The ambulance was called. Patient was on BiPAP when the ambulance arrived. He had a low O2 saturation of around 89% on 4 L, the patient typically wears 2.5 L on a daily basis." [place] [address] pg/ml -his admission 06/12/2020 admission CXR "Moderate right pleural effusion is noted. There is no pneumothorax. There is a small left pleural effusion. Asymmetric right hemithorax opacification is noted. In part, this is due to the pleural effusion. Patient is rotated. Cardiomegaly is noted. There is suspected mild pulmonary edema. Findings have slightly progressed since prior exam" -Patient's home medication of oral Lasix 80 mg BID has been changed by admitting physician Dr. Ingram to 60 mg IV q12 hours while having patient on BIPAP -hospitalist have modified the Lasix dosing on 06/14/2020 as 40 mg IV TID however nursing reported generally low urine output 06/18/19 urine output about the same Transition from Lasix to Bumex drip Continue metolazone Patient appears to be lethargic again this afternoon Repeat ABG performed, pH 7.28, PCO2 62 Ordered BiPAP to be replaced Will request diamond mounter reevaluation Acute metabolic encephalopathy on admission -his mental status may wax and wane due to the breathing issues, BIPAP with sleep or somnolence has been given -06/15/2020: patient is more somnolent this day time, apparently he received ativan by night time hospitalist for agitation, have discussed concerns of acute respiratory failure which may require intubation if his condition does not improve. ICU Dr. Huynh accept patient to ICU for further monitoring. will keep patient NPO for now until ICU re-assessment Per #1 Anemia no melena noted from Acute on CKD? on Famotidine Hemoglobin 7.1, 1 unit packed RBCs ordered, hemoglobin 7.5-second unit packed RBCs ordered Bradycardia on admission -holding beta blockers at this time, (of note that his previous hospitalization had listed amiodarone but not currently active on current home med list ) his amiodarone from previous hospitalization has not been given on this admission History of paroxysmal ventricular tachycardia History of atrial flutter Chronic anticoagulation with coumadin -mildly elevated INR on presentation as 3.3. -INR 2.3 -Coumadin on hold in light of anemia Acute kidney injury on chronic kidney disease stage III In the setting of UTI, possible cardiorenal syndrome -Baseline creatinine around 1.2 to 1.4 but this admission creatinine of 3.2. - crea still at 3.5 transitioned to Bumex drip UTI, Pseudomonas On cefepime Hypertension -hold the oral home dose hydralazine and statin Diabetes Mellitus Type 2 with snf current use of insulin -has been on insulin, monitor blood sugar, while in ICU Gastroesophageal reflux disease -Continue Protonix Hypothyroidism -home dose oral synthroid to be held for now. TSH normal Depression -hold oral fluoxetine for now Disposition pending Palliative care consulted Admission and Anticipated Discharge Date Admission Date: June 12, 2020 Subjective Follow-up for acute CHF exacerbation, acute renal failure, etc. Seen resting in bed, not in distress, on oxygen mask, lethargic Opens eyes occasionally answers yes or no but goes back to sleep Per RN, patient had few bites of food to eat today, initially tolerate Review of Systems Review of Systems: All systems reviewed & are unremarkable except as noted in Subjective Physical Exam Physical Exam: General-lethargic, not in distress, breathing with no effort or accessory muscle use Eyes- anicteric Neck- no JVD Lungs-positive mild rhonchi at the bases, no wheezing Heart- normal rate, irregular rhythm; no murmurs Abdomen- normal bowel sounds, nondistended, soft, nontender Extremities-mild pretibial edema, no calf tenderness Neuro-lethargic Skin- warm & dry Results & Data Results & Data ([facility]) Vital Signs (Past 12 Hours) Vital Signs Temp Pulse Pulse Pulse Resp BP BP 06/18/20 15:31 36.4 C L 56 L 23 148/69 H 06/18/20 15:12 36.4 C L 59 L 22 141/62 H 06/18/20 14:46 36.4 C L 58 L 22 141/62 H 06/18/20 14:45 61 22 06/18/20 14:03 55 L 20 06/18/20 13:12 138/73 06/18/20 09:19 36.4 C L 58 L 99 H 23 113/60 06/18/20 08:00 58 L 06/18/20 07:55 58 L 20 06/18/20 07:52 66 20 Pulse Ox 06/18/20 15:31 97 06/18/20 15:12 99 06/18/20 14:46 100 06/18/20 14:45 99 06/18/20 14:03 99 06/18/20 13:12 06/18/20 09:19 99 06/18/20 08:00 06/18/20 07:55 96 06/18/20 07:52 96 Laboratory Results Laboratory Results - last 24 hr 06/16/20 06/17/20 06/18/20 06:31 21:37 05:03 WBC RBC Hgb Hct MCV MCH MCHC RDW Std Deviation RDW Coeff of Neena Plt Count MPV Immature Gran % (Auto) Neut % (Auto) Lymph % (Auto) [place] % (Auto) Eos % (Auto) Baso % (Auto) Neut # (Auto) Lymph # (Auto) [place] # (Auto) Eos # (Auto) Baso # (Auto) Immature Gran # (Auto) Anisocytosis PT 23.6 H INR 2.3 H ABG pH ABG pCO2 ABG pO2 ABG HCO3 ABG O2 Saturation ABG Base Excess Raji Test Barometric Pressure Oxygen Given Sodium Potassium Chloride Carbon Dioxide Anion Gap BUN Creatinine Est Cr Clr Drug Dosing Est GFR ( Amer) Est GFR (Non-Af Amer) BUN/Creatinine Ratio Glucose POC Glucose 138 H Calcium Blood Type O Negative Antibody Screen NEGATIVE Crossmatch See Detail 06/18/20 06/18/20 06/18/20 05:06 07:35 08:47 WBC 5.85 RBC 2.65 L Hgb 7.5 L Hct 24.0 L MCV 90.6 MCH 28.3 MCHC 31.3 L RDW Std Deviation 69.7 H RDW Coeff of Neena 21.5 H Plt Count 155 MPV 8.5 Immature Gran % (Auto) 0.7 Neut % (Auto) 51.4 Lymph % (Auto) 24.8 [place] % (Auto) 16.1 Eos % (Auto) 5.8 Baso % (Auto) 1.2 Neut # (Auto) 3.01 Lymph # (Auto) 1.45 [place] # (Auto) 0.94 H Eos # (Auto) 0.34 Baso # (Auto) 0.07 Immature Gran # (Auto) 0.04 H Anisocytosis Present PT INR ABG pH ABG pCO2 ABG pO2 ABG HCO3 ABG O2 Saturation ABG Base Excess Raji Test Barometric Pressure Oxygen Given Sodium Potassium Chloride Carbon Dioxide Anion Gap BUN Creatinine Est Cr Clr Drug Dosing Est GFR ( Amer) Est GFR (Non-Af Amer) BUN/Creatinine Ratio Glucose POC Glucose 124 H 122 H Calcium Blood Type Antibody Screen Crossmatch 06/18/20 06/18/20 06/18/20 08:47 11:28 14:04 WBC RBC Hgb Hct MCV MCH MCHC RDW Std Deviation RDW Coeff of Neena Plt Count MPV Immature Gran % (Auto) Neut % (Auto) Lymph % (Auto) [place] % (Auto) Eos % (Auto) Baso % (Auto) Neut # (Auto) Lymph # (Auto) [place] # (Auto) Eos # (Auto) Baso # (Auto) Immature Gran # (Auto) Anisocytosis PT INR ABG pH Cancelled ABG pCO2 Cancelled ABG pO2 Cancelled ABG HCO3 Cancelled ABG O2 Saturation Cancelled ABG Base Excess Cancelled Raji Test Cancelled Barometric Pressure Cancelled Oxygen Given Cancelled Sodium 139 Potassium 3.4 L Chloride 104 Carbon Dioxide 28 Anion Gap 7.0 BUN 83 H Creatinine 3.57 H Est Cr Clr Drug Dosing 33.3 Est GFR ( Amer) 19.4 Est GFR (Non-Af Amer) 16.8 BUN/Creatinine Ratio 23.2 H Glucose 112 H POC Glucose 111 H Calcium 9.1 Blood Type Antibody Screen Crossmatch 06/18/20 16:08 WBC RBC Hgb Hct MCV MCH MCHC RDW Std Deviation RDW Coeff of Neena Plt Count MPV Immature Gran % (Auto) Neut % (Auto) Lymph % (Auto) [place] % (Auto) Eos % (Auto) Baso % (Auto) Neut # (Auto) Lymph # (Auto) [place] # (Auto) Eos # (Auto) Baso # (Auto) Immature Gran # (Auto) Anisocytosis PT INR ABG pH ABG pCO2 ABG pO2 ABG HCO3 ABG O2 Saturation ABG Base Excess Raji Test Barometric Pressure Oxygen Given Sodium Potassium Chloride Carbon Dioxide Anion Gap BUN Creatinine Est Cr Clr Drug Dosing Est GFR ( Amer) Est GFR (Non-Af Amer) BUN/Creatinine Ratio Glucose POC Glucose 100 H Calcium Blood Type Antibody Screen Crossmatch
--- NOTE | 2020-06-18 17:30 | Pulmonology Progress Note ---
Date of Service June 18, 2020 Assessment & Plan (1) Obesity hypoventilation syndrome: Patient continues to be intermittently confused and hypercapnic. Still with severe volume overload. Increased bumex ggt to 1mg/hr as per nephro recs. Continue BiPAP today and obtain ABG in an hour. Intubation would be extremely difficult in this morbidly obese gentleman with high probability of . Outcome would not be improved with intubation and mechanical ventilation. Strongly encourage readdressing [facility]. D/W hospitalist. (2) Volume overload: (3) Tachycardia-bradycardia syndrome: (4) Acute on chronic respiratory failure with hypoxia and hypercapnia: Admission and Anticipated Discharge Date Admission Date: June 12, 2020 Subjective Asked to reeval patient by hospitalist. Patient with worsening AMS requiring afternoon. Unresponsive to commands. Currently on 20/10 bipap. On bumex ggt 0.5mg/hr. Received one unit of blood due to anemia. Review of Systems Review of Systems: Unobtainable due to reduced consciousness Physical Exam Constitutional: + morbidly obese Eyes: + anicteric sclerae ENMT: external ear and nose normal, oropharynx normal Neck: normal visual inspection and trachea midline Respiratory: no cough Auscultation: + diminished lung sounds and + wheezes (diffusely throughout) Cardiovascular: Rate/Rhythm: regular rhythm and + bradycardic Heart Sounds: normal S1 and normal S2; no murmur and no cardiac rub Vessels: no JVD and no carotid bruit Extremities: + pedal edema (+2 bilaterally to the thigh) Gastrointestinal (Abdomen): normal bowel sounds, soft, nontender, no hepatosplenomegaly Skin: no rashes, warm and dry + dry skin, + purpura (R upper extremity ) and + nails dystrophic Neurologic: Myoclonic jerks Psychiatric: Orientation: alert, oriented to person and oriented to time (knew year not month); + not oriented to place Genitourinary: Block catheter in place, draining yellow urine without visible blood clots Results & Data Results & Data ([facility]) Vital Signs (Past 12 Hours) Vital Signs Temp Pulse Pulse Pulse Resp BP BP 06/18/20 17:07 56 L 22 06/18/20 15:31 97.5 F L 56 L 23 148/69 H 06/18/20 15:12 97.5 F L 59 L 22 141/62 H 06/18/20 14:46 97.5 F L 58 L 22 141/62 H 06/18/20 14:45 61 22 06/18/20 14:03 55 L 20 06/18/20 13:12 138/73 06/18/20 09:19 97.5 F L 58 L 99 H 23 113/60 06/18/20 08:00 58 L 06/18/20 07:55 58 L 20 06/18/20 07:52 66 20 Pulse Ox 06/18/20 17:07 98 06/18/20 15:31 97 06/18/20 15:12 99 06/18/20 14:46 100 06/18/20 14:45 99 06/18/20 14:03 99 06/18/20 13:12 06/18/20 09:19 99 06/18/20 08:00 06/18/20 07:55 96 06/18/20 07:52 96 VS, labs, imaging reviewed PG Care Time/CCT Total # of Minutes Spent Total Time Spent with Patient: Total time spent is greater than 50% in coordination of care (as documented) at patient's floor/unit and/or counseling patient: Coding Level of Care Code 15734 Subseq Hosp Care Lvl 3 Diagnoses Obesity hypoventilation syndrome E66.2 Volume overload E87.70 Tachycardia-bradycardia syndrome I49.5 Acute on chronic respiratory failure with hypoxia and hypercapnia J96.21; J96.22
[2020-06-18 20:58] LABS: iSTAT Allen Test Pass; iSTAT Arterial Blood Gas HCO3 28 meg/L (19-24); iSTAT Arterial Blood Gas pCO2 46 mmHg (35-46); iSTAT Arterial Blood Gas pH 7.39 (7.35-7.45); iSTAT Arterial Blood Gas pO2 119 mmHg (80-95); iSTAT Carbon Dioxide 29 mmol/L (24-31); iSTAT FiO2 30 %; iSTAT Site L Radial
[2020-06-19] MEDS: LEVALBUTEROL 1.25MG/0.5ML NEB INH SCH ×4 (00:36→19:13)
[2020-06-19] MEDS: IPRATROPIUM BROMIDE NEB SOLN 0.02% 2.5 ML VIAL INH SCH ×4 (00:36→19:14)
[2020-06-19] MEDS: LEVOTHYROXINE SODIUM 200 MCG TABLET PO SCH (04:22)
[2020-06-19] MEDS: LEVOTHYROXINE SODIUM 25 MCG TABLET PO SCH (04:22)
[2020-06-19 05:58] LABS: Basophils # (auto) 0.05 K/uL (0-0.2); Basophils % (auto) 0.9 %; Eosinophils # (auto) 0.36 K/uL (0-0.5); Eosinophils % (auto) 6.3 %; Hematocrit (blood only) 26.2 % (42-52); Hemoglobin 8.4 g/dL (14.0-18.0); Immature Granulocytes # (auto) 0.03 K/uL (0.00-0.02); Immature Granulocytes % (auto) 0.5 %; Lymphocytes # (auto) 1.27 K/uL (1.2-3.4); Lymphocytes % (auto) 22.1 %; Mean Corpuscular Hemoglobin 28.4 pg (25-34); Mean Corpuscular Hgb Conc 32.1 g/dL (32-36); Mean Corpuscular Volume 88.5 fL (80-100); Mean Platelet Volume 10.8 fL (7.4-10.4); Monocytes # (auto) 0.98 K/uL (0.11-0.59); Monocytes % (auto) 17.1 %; Neutrophils # (auto) 3.05 K/uL (1.4-6.5); Neutrophils % (auto) 53.1 %; Platelet Count 210 K/uL (130-400); RDW Coefficient of Variation 21.7 % (11.5-14.5); RDW Standard Deviation 68.9 fL (36.4-46.3); Red Blood Count 2.96 M/uL (4.7-6.1); White Blood Count 5.74 K/uL (4.8-10.8)
[2020-06-19 06:18] LABS: Anisocytosis Present; Polychromasia 1+
[2020-06-19 07:04] LABS: INR 2.6 (0.9-1.1); Prothrombin Time 25.8 Seconds (9.0-12.0)
[2020-06-19 07:17] LABS: BUN Creatinine Ratio 24.4 (10-20); Calcium 8.7 mg/dl (8.5-10.1); Creatinine Clr Calc Pharmacy 36.3 ml/min; Est GFR (African American) 21.7; Est GFR (Non-African American) 18.7; Potassium 3.2 mmol/L (3.5-5.1)
[2020-06-19] MEDS ORDERED: POTASSIUM CHLORIDE CRTAB 20 MEQ TABCR PO ONE (07:33)
[2020-06-19] MEDS: INSULIN GLARGINE SOLOSTAR 100 UNITS/ML 3 ML PEN SC SCH ×2 (08:09→21:39)
[2020-06-19] MEDS: INSULIN ASPART 100 UNITS/ML 3 ML PEN SC SCH ×4 (08:10→21:39)
[2020-06-19] MEDS: NYSTATIN POWDER 15GM BTL EXT SCH ×2 (08:11→21:08)
[2020-06-19] MEDS: metOLazone 5 MG TABLET PO SCH (08:13)
[2020-06-19] MEDS: BUMETANIDE 10 MG in DEXTROSE 5% 10 ML IV SCH ×2 (10:54→21:06)
[2020-06-19] MEDS: CEFEPIME 2,000 MG in SYRINGE 0 ML IV SCH ×2 (10:57→22:10)
--- NOTE | 2020-06-19 11:17 | Pharmacy Report ---
Pharmacy Glycemic Short Note 2 - Date of Service June 19, 2020 - Glycemic Short BSG Results (Last 24 hours): 06/18/20 06/18/20 06/18/20 11:28 16:08 21:31 Glucose POC Glucose 111 H 100 H 105 H 06/19/20 06/19/20 06/19/20 04:56 04:58 06:31 Glucose Cancelled 97 POC Glucose 104 H 06/19/20 06/19/20 08:08 11:07 Glucose POC Glucose 112 H 125 H OUTPATIENT ANTIDIABETIC REGIMEN: * Lantus 10 units Q HS * Novolog 12 units w/ breakfast + 12 units w/ lunch + 14 units w/ dinner * A1c = 6.1% 06/13/20 ASSESSMENT: 06/19 * Patient received total fo 10 units of insulin yesterday, of which 5 were basal insulin * BSGs well controlled yesterday 111-100-105 mg/dL - continue same Novolog scale * Fasting BSG 112 mg/dl - continue same basal scale / however may adjust range PLAN FOR INPATIENT GLYCEMIC CONTROL: * Basal insulin * Lantus SQ BID per scale * 0 units if BSG less than 140 * 5 units if BSG 140 or greater * Bolus insulin * NovoLog per scale ACHS: PLAN FOR DISCHARGE: * may resume outpt insulin regimen on discharge if no report of frequent hypoglycemic episodes
[2020-06-19] MEDS: FAMOTIDINE 20 MG in SYRINGE 3 ML IV SCH (12:09)
--- NOTE | 2020-06-19 14:59 | Pulmonology Progress Note ---
Date of Service June 19, 2020 Assessment & Plan (1) Obesity hypoventilation syndrome: Urine output improving with Bumex drip at 1 mg an hour and metolazone 5 mg every morning. Blood gas reviewed from 8:44 PM yesterday suggesting mild acute on chronic hypercapnic respiratory failure with compensated metabolic alkalosis. Mental status improving with BiPAP as needed. Creatinine downtrending to 3.26. BUN is improved as well. Continue treatment for OHS/SAFIA volume overload with Bumex drip and BiPAP. BiPAP must be worn at all times during sleep. Currently being treated for Pseudomonas UTI with cefepime. Was previously on Zosyn. Palliative care, Cardiology and nephrology services following. (2) Volume overload: (3) Tachycardia-bradycardia syndrome: (4) Acute on chronic respiratory failure with hypoxia and hypercapnia: Admission and Anticipated Discharge Date Admission Date: June 12, 2020 Subjective Currently on 2 and a half liters of oxygen. Appears comfortable. Saturating in the high 90s. Off BiPAP. No events overnight. 950 mL output over the last 12 hours. Review of Systems Review of Systems: Continues to be somnolent. Physical Exam Constitutional: + morbidly obese Eyes: + anicteric sclerae ENMT: external ear and nose normal, oropharynx normal Neck: normal visual inspection and + thick neck Respiratory: + tachypneic; no cough Auscultation: + diminished lung sounds Cardiovascular: Rate/Rhythm: regular rhythm and + bradycardic Heart Sounds: normal S1 and normal S2; no murmur and no cardiac rub Vessels: no JVD and no carotid bruit Extremities: + pedal edema (+2 bilaterally to the thigh) Gastrointestinal (Abdomen): normal bowel sounds, soft, nontender, no hepatosplenomegaly Musculoskeletal: no cyanosis or clubbing, extremities motor strength 5/5 Skin: no rashes, warm and dry + dry skin Neurologic: PERRL, EOMI, accommodation nl, no face palsy, no dysarthria Psychiatric: Orientation: alert and oriented to place Genitourinary: Block catheter in place, draining yellow urine without visible blood clots Results & Data Results & Data ([facility]) Vital Signs (Past 12 Hours) Vital Signs Temp Pulse Pulse Pulse Resp BP BP 06/19/20 13:31 54 L 20 06/19/20 13:00 56 L 22 06/19/20 12:00 97.7 F 55 L 18 06/19/20 11:02 56 L 20 102/56 L 06/19/20 11:00 56 L 25 H 06/19/20 10:00 57 L 18 06/19/20 09:00 56 L 18 06/19/20 08:18 54 L 19 107/73 06/19/20 08:01 57 L 23 06/19/20 08:00 98.1 F 67 25 H 06/19/20 07:57 57 L 23 06/19/20 07:00 55 L 19 06/19/20 04:00 98.1 F 60 24 160/60 H Pulse Ox 06/19/20 13:31 98 06/19/20 13:00 98 06/19/20 12:00 99 06/19/20 11:02 99 06/19/20 11:00 99 06/19/20 10:00 99 06/19/20 09:00 100 06/19/20 08:18 98 06/19/20 08:01 97 06/19/20 08:00 100 06/19/20 07:57 97 06/19/20 07:00 98 06/19/20 04:00 98 I reviewed the vital signs, labs and imaging PG Care Time/CCT Total # of Minutes Spent Total Time Spent with Patient: Total time spent is greater than 50% in coordination of care (as documented) at patient's floor/unit and/or counseling patient: Coding Level of Care Code 82165 Subseq Hosp Care Lvl 2 Diagnoses Obesity hypoventilation syndrome E66.2 Volume overload E87.70 Tachycardia-bradycardia syndrome I49.5 Acute on chronic respiratory failure with hypoxia and hypercapnia J96.21; J96.22
--- NOTE | 2020-06-19 15:15 | Nephrology Progress Note ---
Date of Service June 19, 2020 Assessment & Plan (1) Volume overload: edema and vol OL refractory to diuretics. 300 mL positive yesterday; to date about net even for I/O this admission despite aggressive diuretics. yesterday negative 220 mL. 3 admissions here since October 2019 and no bumex at any time. currently on bumex gtt at 1 mg / hr and metolazone 5 mg daily >>>increased bumex 1.5 mg/hr >>>increased metolazone to 5 mg bid -repleted K for hypokalemia; no standing dose daily bmp -not a dialysis candidate at this time (2) Acute on chronic renal failure: kidney injury multifactorial including ATN in setting of Pseudomonas UTI and cardiorenal syndrome. Creatinine has been stable in mid 3's -diuretics as above -Daily BMP and weights -Input and output. Present on Admission?: Yes (3) Acute and chronic respiratory failure: Due to acute CHF exacerbation and obesity hypoventilation syndrome. Patient is on BiPAP most of the time. -cont diuretics, consider change as above Cardiology on board. (4) UTI (urinary tract infection): Urine culture positive for Pseudomonas on zosyn renally dosed. (5) Palliative care encounter: palliative care c/s reviewed > note that pt for now to remain full code but plan is to transition home w/ hospice. follow for updates w/ goals of care Admission and Anticipated Discharge Date Admission Date: June 12, 2020 Subjective more alert today though still cannot answer more than 1-2 questions; struggles w/ word finding; c/o constipation; no musculoskeletal pain; endorses sob he states it;s stable Review of Systems Review of Systems: All systems reviewed & are unremarkable except as noted in Subjective Physical Exam Constitutional: well developed and + morbidly obese; no acute distress Eyes: EOM intact bilaterally ENMT: Ears: no external ear abnormality Neck: + thick neck Respiratory: normal respiratory effort and + labored breathing (on 2L NC) Auscultation: + diminished lung sounds Cardiovascular: Rate/Rhythm: + bradycardic and + irregularly irregular (HS distant) Extremities: + edema (1-2+) Gastrointestinal (Abdomen): normal bowel sounds, soft, nontender, no hepatosplenomegaly Musculoskeletal: Extremities: + limited ROM of extremities and + abnormal str ength Skin: + turgor decreased, + skin tightening (BLe) and + erythema (BLE) R hand infiltrated/black and blue fingers Neurologic: more alert, interactive; no tremor; generalized weakness Psychiatric: Orientation: oriented to person and oriented to place Genitourinary: huang w/ some urine Results & Data ([facility]) Vital Signs (Past 12 Hours) Vital Signs Temp Pulse Pulse Pulse Resp BP BP 06/19/20 13:31 54 L 20 06/19/20 13:00 56 L 22 06/19/20 12:00 36.5 C 55 L 18 06/19/20 11:02 56 L 20 102/56 L 06/19/20 11:00 56 L 25 H 06/19/20 10:00 57 L 18 06/19/20 09:00 56 L 18 06/19/20 08:18 54 L 19 107/73 06/19/20 08:01 57 L 23 06/19/20 08:00 36.7 C 67 25 H 06/19/20 07:57 57 L 23 06/19/20 07:00 55 L 19 06/19/20 04:00 36.7 C 60 24 160/60 H Pulse Ox 06/19/20 13:31 98 06/19/20 13:00 98 06/19/20 12:00 99 06/19/20 11:02 99 06/19/20 11:00 99 06/19/20 10:00 99 06/19/20 09:00 100 06/19/20 08:18 98 06/19/20 08:01 97 06/19/20 08:00 100 06/19/20 07:57 97 06/19/20 07:00 98 06/19/20 04:00 98 Laboratory Results 06/19/20 04:56 06/19/20 06:31 (1) Volume overload Hypervolemia type: other Qualified Code(s): E87.79 - Other fluid overload (2) Acute on chronic renal failure Acute renal failure type: unspecified Chronic kidney disease stage: stage 3 (moderate) Chronic kidney disease stage 3 subtype: stage 3a (GFR 45-59) Qualified Code(s): N17.9 - Acute kidney failure, unspecified; N18.31 - Chronic kidney disease, stage 3a
--- NOTE | 2020-06-19 17:05 | Hospitalist Progress Note ---
Date of Service June 19, 2020 Assessment & Plan (1) Acute and chronic respiratory failure: Acute on chronic right heart failure Obstructive sleep apnea on BiPAP Chronic obstructive pulmonary disease Morbid Obesity Bilateral Pleural Effusions -This is a morbidly obese patient with multiple reasons for acute on chronic respiratory failure. Back in previous hospitalization, patient had 05/17/2020 CT scan that visualized well the bilateral pleural effusions for which the right sided lung durant had more effusion than the left in addition to other known health issues. -as per the 06/12/2020 ED notes that patient "presents to the ER with about 3 or 4 days of shortness of breath. Today, his brother thought he seemed more confused. The ambulance was called. Patient was on BiPAP when the ambulance arrived. He had a low O2 saturation of around 89% on 4 L, the patient typically wears 2.5 L on a daily basis." -[place] [address] pg/ml -his admission 06/12/2020 admission CXR "Moderate right pleural effusion is noted. There is no pneumothorax. There is a small left pleural effusion. Asymmetric right hemithorax opacification is noted. In part, this is due to the pleural effusion. Patient is rotated. Cardiomegaly is noted. There is suspected mild pulmonary edema. Findings have slightly progressed since prior exam" -Patient's home medication of oral Lasix 80 mg BID has been changed by admitting physician Dr. Ingram to 60 mg IV q12 hours while having patient on BIPAP -hospitalist have modified the Lasix dosing on 06/14/2020 as 40 mg IV TID however nursing reported generally low urine output 1/08/07 urine output still low but improved compared to yesterday Transitioned from Lasix to Bumex drip Continue metolazone mental status improved after Bipap replaced yesterday continue to monitor closely Acute metabolic encephalopathy on admission -his mental status may wax and wane due to the breathing issues, BIPAP with sleep or somnolence has been given -06/15/2020: patient is more somnolent this day time, apparently he received ativan by night time hospitalist for agitation, have discussed concerns of acute respiratory failure which may require intubation if his condition does not improve. ICU Dr. Huynh accept patient to ICU for further monitoring. will keep patient NPO for now until ICU re-assessment Per #1 Anemia no melena noted from Acute on CKD? on Famotidine Hemoglobin 7.1, 1 unit packed RBCs ordered, hemoglobin 7.5-second unit packed RBCs ordered Hg 8.4 monitor Bradycardia on admission -holding beta blockers at this time, (of note that his previous hospitalization had listed amiodarone but not currently active on current home med list ) his amiodarone from previous hospitalization has not been given on this admission History of paroxysmal ventricular tachycardia History of atrial flutter Chronic anticoagulation with coumadin -mildly elevated INR on presentation as 3.3. -INR 2.6 -Coumadin on hold in light of anemia Acute kidney injury on chronic kidney disease stage III In the setting of UTI, possible cardiorenal syndrome -Baseline creatinine around 1.2 to 1.4 but this admission creatinine of 3.2. - crea 3.5 --> 3.2 transitioned to Bumex drip UTI, Pseudomonas On cefepime Hypertension -hold the oral home dose hydralazine and statin Diabetes Mellitus Type 2 with group home current use of insulin -has been on insulin, monitor blood sugar, while in ICU Gastroesophageal reflux disease -Continue Protonix Hypothyroidism -home dose oral synthroid to be held for now. TSH normal Depression -hold oral fluoxetine for now Disposition pending Palliative care consulted Admission and Anticipated Discharge Date Admission Date: June 12, 2020 Subjective ff up for encephalopathy, CHF exacerbation with acute on CKD, etc seen resting in bed, comfortable, awake, oriented x 2 answers most questions appropriately weak states he feels fine denies dyspnea, chest pain, abdominal pain,nausea requesting food no other symptoms Review of Systems Review of Systems: All systems reviewed & are unremarkable except as noted in Subjective Physical Exam Physical Exam: General- oriented x 2, not in distress, speaks in sentences with no effort or accessory muscle use Eyes- anicteric Neck- no JVD Lungs- (+) rales at the bases intemittent wheeze Heart- normal rate, irregularly irregular rhythm; no murmurs Abdomen- normal bowel sounds, nondistended, soft, nontender Extremities- lower leg pretibial edema, no calf tenderness Neuro- alert, oriented x 3; no gross focal neurologic deficits Skin- warm & dry Results & Data Results & Data ([facility]) Vital Signs (Past 12 Hours) Vital Signs Temp Pulse Pulse Pulse Resp BP Pulse Ox 06/19/20 13:31 54 L 20 98 06/19/20 13:00 56 L 22 98 06/19/20 12:00 36.5 C 55 L 18 99 06/19/20 11:02 56 L 20 102/56 L 99 06/19/20 11:00 56 L 25 H 99 06/19/20 10:00 57 L 18 99 06/19/20 09:00 56 L 18 100 06/19/20 08:18 54 L 19 107/73 98 06/19/20 08:01 57 L 23 97 06/19/20 08:00 36.7 C 67 25 H 100 06/19/20 07:57 57 L 23 97 06/19/20 07:00 55 L 19 98
[2020-06-20] MEDS: LEVALBUTEROL 1.25MG/0.5ML NEB INH SCH ×4 (00:08→19:26)
[2020-06-20] MEDS: IPRATROPIUM BROMIDE NEB SOLN 0.02% 2.5 ML VIAL INH SCH ×4 (00:08→19:26)
[2020-06-20] MEDS: LEVOTHYROXINE SODIUM 25 MCG TABLET PO SCH (05:54)
[2020-06-20] MEDS: BUMETANIDE 10 MG in DEXTROSE 5% 10 ML IV SCH ×2 (05:54→16:11)
[2020-06-20] MEDS: LEVOTHYROXINE SODIUM 200 MCG TABLET PO SCH (05:54)
[2020-06-20 06:38] LABS: Basophils # (auto) 0.06 K/uL (0-0.2); Basophils % (auto) 1.2 %; Eosinophils # (auto) 0.29 K/uL (0-0.5); Eosinophils % (auto) 5.7 %; Hematocrit (blood only) 29.2 % (42-52); Immature Granulocytes # (auto) 0.04 K/uL (0.00-0.02); Immature Granulocytes % (auto) 0.8 %; Lymphocytes # (auto) 1.33 K/uL (1.2-3.4); Lymphocytes % (auto) 26.2 %; Mean Corpuscular Hemoglobin 27.8 pg (25-34); Mean Corpuscular Hgb Conc 30.8 g/dL (32-36); Mean Corpuscular Volume 90.1 fL (80-100); Mean Platelet Volume 9.1 fL (7.4-10.4); Monocytes # (auto) 0.81 K/uL (0.11-0.59); Neutrophils # (auto) 2.54 K/uL (1.4-6.5); Neutrophils % (auto) 50.1 %; Platelet Count 145 K/uL (130-400); RDW Coefficient of Variation 21.1 % (11.5-14.5); RDW Standard Deviation 68.9 fL (36.4-46.3); Red Blood Count 3.24 M/uL (4.7-6.1); White Blood Count 5.07 K/uL (4.8-10.8)
[2020-06-20 06:45] LABS: INR 2.7 (0.9-1.1); Prothrombin Time 26.7 Seconds (9.0-12.0)
[2020-06-20 07:03] LABS: Calcium 8.9 mg/dl (8.5-10.1); Creatinine Clr Calc Pharmacy 39.5 ml/min; Est GFR (Non-African American) 20.7; Potassium 3.3 mmol/L (3.5-5.1)
[2020-06-20 07:43] LABS: Anisocytosis Present; Smudge Cells Present
[2020-06-20] MEDS ORDERED: POTASSIUM CHLORIDE CRTAB 20 MEQ TABCR PO ONE (08:32)
[2020-06-20] MEDS: INSULIN ASPART 100 UNITS/ML 3 ML PEN SC SCH ×4 (09:01→21:42)
[2020-06-20] MEDS: metOLazone 5 MG TABLET PO SCH (09:02)
[2020-06-20] MEDS: NYSTATIN POWDER 15GM BTL EXT SCH ×2 (09:02→21:42)
[2020-06-20] MEDS: INSULIN GLARGINE SOLOSTAR 100 UNITS/ML 3 ML PEN SC SCH ×2 (09:03→21:43)
[2020-06-20] MEDS: FAMOTIDINE 20 MG in SYRINGE 3 ML IV SCH (11:59)
[2020-06-20] MEDS: CEFEPIME 2,000 MG in SYRINGE 0 ML IV SCH (11:59)
--- NOTE | 2020-06-20 13:16 | Pulmonology Progress Note ---
Date of Service June 20, 2020 Assessment & Plan (1) Obesity hypoventilation syndrome: Creatinine continues to improve on Bumex drip. Continue BiPAP while sleeping for OHS and SAFIA. He has chronic hypercapnic respiratory failure. He is at risk for further acute hypercapnic respiratory failure. Would recommend discussing with family and transitioning him to a DNR/DNI. CPR and intubation would be very difficult on this patient given his body habitus. Prognosis overall is very guarded. Palliative care, Cardiology and nephrology services following. Discussed with nursing. Pulmonary will sign off. Thank you for the consult. Please call with questions. (2) Volume overload: Hypervolemia type: other Qualified Code(s): E87.79 - Other fluid overload (3) Tachycardia-bradycardia syndrome: (4) Acute on chronic respiratory failure with hypoxia and hypercapnia: Admission and Anticipated Discharge Date Admission Date: June 12, 2020 Subjective Patient continues to be more awake today. He is a bit disoriented at times. He denies any shortness of breath currently. He is laying in bed. He is thirsty. Nursing is having a difficult time with him adhering to his fluid restriction. He is currently requiring 3 L of oxygen and saturating 100%. Review of Systems Review of Systems: All systems reviewed & are unremarkable except as noted in HPI & below Physical Exam Constitutional: well developed and + morbidly obese; no acute distress Eyes: EOM intact bilaterally ENMT: Ears: no external ear abnormality Neck: + thick neck Respiratory: normal respiratory effort Auscultation: + wheezes Cardiovascular: Rate/Rhythm: + bradycardic and + irregularly irregular (HS distant) Extremities: + edema (1-2+) Gastrointestinal (Abdomen): normal bowel sounds, soft, nontender, no hepatosplenomegaly Musculoskeletal: Extremities: + limited ROM of extremities and + abnormal strength Skin: no rashes, warm and dry Neurologic: more alert, interactive; no tremor; generalized weakness Psychiatric: Orientation: oriented to person and oriented to place Genitourinary: huang w/ some urine Results & Data Results & Data ([facility]) Vital Signs (Past 12 Hours) Vital Signs Temp Pulse Pulse Resp BP Pulse Ox 06/20/20 10:54 98.2 F 60 18 91/54 L 100 06/20/20 08:00 60 06/20/20 07:47 97.9 F 63 20 129/65 100 06/20/20 07:14 61 20 99 06/20/20 04:42 99.0 F 83 20 128/68 98 06/20/20 03:40 57 L 24 98 Laboratory Results Creatinine improving. He has mild hyperkalemia. PG Care Time/CCT Total # of Minutes Spent Total Time Spent with Patient: Total time spent is greater than 50% in coordination of care (as documented) at patient's floor/unit and/or counseling patient: Coding Level of Care Code 97502 Subseq Hosp Care Lvl 2 Diagnoses Obesity hypoventilation syndrome E66.2 Volume overload E87.79 Hypervolemia type: other Tachycardia-bradycardia syndrome I49.5 Acute on chronic respiratory failure with hypoxia and hypercapnia J96.21; J96.22
--- NOTE | 2020-06-20 15:22 | Nephrology Progress Note ---
Date of Service June 20, 2020 Assessment & Plan (1) Volume overload: edema and vol OL refractory to diuretics for many days but now responding to bumex > 2.7L yesterday. 3 admissions here since October 2019 and no bumex at any time. currently on bumex gtt at 1 mg / hr and metolazone 5 mg daily >>>cont bumex current dose >>>cont metolazone to 5 mg daily -repleted K for hypokalemia; no standing dose daily bmp -not a dialysis candidate at this time (2) Acute on chronic renal failure: kidney injury multifactorial including ATN in setting of Pseudomonas UTI and cardiorenal syndrome. Creatinine has been stable in mid 3's and is actually better today w/ better diuresis -diuretics as above -Daily BMP and weights -Input and output. (3) Acute and chronic respiratory failure: Due to acute CHF exacerbation and obesity hypoventilation syndrome. Patient is on BiPAP most of the time. -cont diuretics, consider change as above Cardiology on board. (4) UTI (urinary tract infection): Urine culture positive for Pseudomonas on zosyn renally dosed. (5) Palliative care encounter: palliative care c/s reviewed > note that pt for now to remain full code but plan is to transition home w/ hospice. follow for updates w/ goals of care Admission and Anticipated Discharge Date Admission Date: June 12, 2020 Subjective moved out of icu; on 02nc 3L; still quite confused; tells me he's sob; tells me someone "punched me in the stomach" Review of Systems Review of Systems: All systems reviewed & are unremarkable except as noted in Subjective (limited by cognitive status) Physical Exam Constitutional: well developed and + morbidly obese; no acute distress Eyes: EOM intact bilaterally ENMT: Ears: no external ear abnormality Neck: + thick neck Respiratory: normal respiratory effort and + labored breathing (on 3L NC) Auscultation: + diminished lung sounds Cardiovascular: Rate/Rhythm: regular rate and + irregularly irregular (HS distant) Extremities: + edema (2+) Gastrointestinal (Abdomen): normal bowel sounds, soft, nontender, no hepatosplenomegaly Musculoskeletal: Extremities: + limited ROM of extremities and + abnormal strength Skin: + turgor decreased, + skin tightening (BLe) and + erythema (BLE) Neurologic: montoya, fluent but incoherent speech Psychiatric: Orientation: oriented to person and oriented to place Genitourinary: huang w/ ample clear urine Results & Data ([facility]) Vital Signs (Past 12 Hours) Vital Signs Temp Pulse Pulse Resp BP Pulse Ox 06/20/20 13:25 68 20 97 06/20/20 10:54 36.8 C 60 18 91/54 L 100 06/20/20 08:00 60 06/20/20 07:47 36.6 C 63 20 129/65 100 06/20/20 07:14 61 20 99 06/20/20 04:42 37.2 C 83 20 128/68 98 06/20/20 03:40 57 L 24 98 Laboratory Results 06/20/20 06:16 06/20/20 06:16 (1) Volume overload Hypervolemia type: other Qualified Code(s): E87.79 - Other fluid overload (2) Acute on chronic renal failure Acute renal failure type: unspecified Chronic kidney disease stage: stage 3 (moderate) Chronic kidney disease stage 3 subtype: stage 3a (GFR 45-59) Qualified Code(s): N17.9 - Acute kidney failure, unspecified; N18.31 - Chronic kidney disease, stage 3a
--- NOTE | 2020-06-20 17:12 | Hospitalist Progress Note ---
Date of Service June 20, 2020 Assessment & Plan (1) Acute and chronic respiratory failure: Acute on chronic right heart failure Obstructive sleep apnea on BiPAP Chronic obstructive pulmonary disease Morbid Obesity Bilateral Pleural Effusions -This is a morbidly obese patient with multiple reasons for acute on chronic respiratory failure. Back in previous hospitalization, patient had 05/17/2020 CT scan that visualized well the bilateral pleural effusions for which the right sided lung durant had more effusion than the left in addition to other known health issues. -as per the 06/12/2020 ED notes that patient "presents to the ER with about 3 or 4 days of shortness of breath. Today, his brother thought he seemed more confused. The ambulance was called. Patient was on BiPAP when the ambulance arrived. He had a low O2 saturation of around 89% on 4 L, the patient typically wears 2.5 L on a daily basis." [place] [address] pg/ml -his admission 06/12/2020 admission CXR "Moderate right pleural effusion is noted. There is no pneumothorax. There is a small left pleural effusion. Asymmetric right hemithorax opacification is noted. In part, this is due to the pleural effusion. Patient is rotated. Cardiomegaly is noted. There is suspected mild pulmonary edema. Findings have slightly progressed since prior exam" -Patient's home medication of oral Lasix 80 mg BID has been changed by admitting physician Dr. Ingram to 60 mg IV q12 hours while having patient on BIPAP -hospitalist have modified the Lasix dosing on 06/14/2020 as 40 mg IV TID however nursing reported generally low urine output 06/20/19 urine output still low but improving since being Transitioned from Lasix to Bumex drip Continue metolazone mental status improved continue to monitor closely Acute metabolic encephalopathy on admission -his mental status may wax and wane due to the breathing issues, BIPAP with sleep or somnolence has been given -06/15/2020: patient is more somnolent this day time, apparently he received ativan by night time hospitalist for agitation, have discussed concerns of acute respiratory failure which may require intubation if his condition does not improve. ICU Dr. Huynh accept patient to ICU for further monitoring. will keep patient NPO for now until ICU re-assessment Per #1 Anemia no melena noted from Acute on CKD? on Famotidine Hemoglobin 7.1, 1 unit packed RBCs ordered, hemoglobin 7.5-second unit packed RBCs ordered Hg 9 monitor Bradycardia on admission -holding beta blockers at this time, (of note that his previous hospitalization had listed amiodarone but not currently active on current home med list ) his amiodarone from previous hospitalization has not been given on this admission - HR 60s History of paroxysmal ventricular tachycardia History of atrial flutter Chronic anticoagulation with coumadin -mildly elevated INR on presentation as 3.3. -INR 2.7 -Coumadin on hold in light of anemia Acute kidney injury on chronic kidney disease stage III In the setting of UTI, possible cardiorenal syndrome -Baseline creatinine around 1.2 to 1.4 but this admission creatinine of 3.2. - crea 3.5 --> 3.2-->3.0 transitioned to Bumex drip Day 3 UTI, Pseudomonas On cefepime Hypertension -hold the oral home dose hydralazine and statin Diabetes Mellitus Type 2 with skilled nursing current use of insulin -has been on insulin, monitor blood sugar, while in ICU Gastroesophageal reflux disease -Continue Protonix Hypothyroidism -home dose oral synthroid to be held for now. TSH normal Depression -hold oral fluoxetine for now Disposition pending Palliative care consulted Admission and Anticipated Discharge Date Admission Date: June 12, 2020 Subjective Follow-up for congestive heart exacerbation with acute renal failure, etc. Seen resting in bed, not in distress, on 2 L of oxygen via nasal cannula Awake and alert, but somewhat confused States he feels fine overall Denies shortness of breath, chest pain, abdominal pain, nausea vomiting Appetite is good No other symptom Review of Systems 2 Review of Systems: All systems reviewed & are unremarkable except as noted in Subjective Physical Exam Physical Exam: General- oriented x 1, not in distress, speaks in sentences with no effort or accessory muscle use Eyes- anicteric Neck- no JVD Lungs-positive mild rales at the bases, good air entry bilaterally Heart- normal rate, regular rhythm; no murmurs Abdomen- normal bowel sounds, nondistended, soft, nontender Extremities-mild pretibial edema, no calf tenderness Neuro- alert, oriented x 1; no gross focal neurologic deficits Skin- warm & dry Results & Data Results & Data ([facility]) Vital Signs (Past 12 Hours) Vital Signs Temp Pulse Pulse Resp BP Pulse Ox 01/03/21 16:00 61 06/20/20 15:19 36.9 C 60 18 104/65 97 06/20/20 13:25 68 20 97 06/20/20 10:54 36.8 C 60 18 91/54 L 100 06/20/20 08:00 60 06/20/20 07:47 36.6 C 63 20 129/65 100 06/20/20 07:14 61 20 99
[2020-06-21] MEDS: LEVALBUTEROL 1.25MG/0.5ML NEB INH SCH ×4 (00:10→19:27)
[2020-06-21] MEDS: IPRATROPIUM BROMIDE NEB SOLN 0.02% 2.5 ML VIAL INH SCH ×4 (00:10→19:27)
[2020-06-21] MEDS: BUMETANIDE 10 MG in DEXTROSE 5% 10 ML IV SCH ×3 (03:15→22:48)
[2020-06-21 06:27] LABS: Basophils # (auto) 0.07 K/uL (0-0.2); Basophils % (auto) 1.2 %; Eosinophils # (auto) 0.28 K/uL (0-0.5); Eosinophils % (auto) 4.9 %; Hemoglobin 9.6 g/dL (14.0-18.0); Immature Granulocytes # (auto) 0.02 K/uL (0.00-0.02); Immature Granulocytes % (auto) 0.3 %; Lymphocytes # (auto) 1.25 K/uL (1.2-3.4); Lymphocytes % (auto) 21.8 %; Mean Corpuscular Hemoglobin 27.9 pg (25-34); Mean Corpuscular Volume 90.1 fL (80-100); Mean Platelet Volume 9.3 fL (7.4-10.4); Monocytes # (auto) 0.89 K/uL (0.11-0.59); Monocytes % (auto) 15.5 %; Neutrophils # (auto) 3.23 K/uL (1.4-6.5); Neutrophils % (auto) 56.3 %; Platelet Count 146 K/uL (130-400); RDW Coefficient of Variation 20.8 % (11.5-14.5); RDW Standard Deviation 67.4 fL (36.4-46.3); Red Blood Count 3.44 M/uL (4.7-6.1); White Blood Count 5.74 K/uL (4.8-10.8)
[2020-06-21] MEDS: LEVOTHYROXINE SODIUM 25 MCG TABLET PO SCH (06:47)
[2020-06-21] MEDS: LEVOTHYROXINE SODIUM 200 MCG TABLET PO SCH (06:48)
[2020-06-21 06:53] LABS: BUN Creatinine Ratio 28.4 (10-20); Calcium 9.2 mg/dl (8.5-10.1); Creatinine Clr Calc Pharmacy 45.2 ml/min; Est GFR (African American) 29.6; Est GFR (Non-African American) 25.5; Potassium 3.3 mmol/L (3.5-5.1)
[2020-06-21 07:06] LABS: Anisocytosis Present
[2020-06-21 07:52] LABS: ANA Pattern Nuclear, Nucleolar; ANA Pattern 2 Nuclear, Homogeneous; ANA Titer > OR = 1:1280 titer
[2020-06-21] MEDS: INSULIN GLARGINE SOLOSTAR 100 UNITS/ML 3 ML PEN SC SCH (08:49)
[2020-06-21] MEDS: INSULIN ASPART 100 UNITS/ML 3 ML PEN SC SCH ×4 (08:51→22:52)
[2020-06-21] MEDS: metOLazone 5 MG TABLET PO SCH (08:53)
[2020-06-21] MEDS ORDERED: POTASSIUM CHLORIDE CRTAB 20 MEQ TABCR PO STA (09:28)
[2020-06-21] MEDS: NYSTATIN POWDER 15GM BTL EXT SCH ×2 (09:37→22:28)
[2020-06-21 10:18] LABS: INR 2.4 (0.9-1.1); Prothrombin Time 24.1 Seconds (9.0-12.0)
--- NOTE | 2020-06-21 10:29 | Nephrology Progress Note ---
Date of Service June 21, 2020 Assessment & Plan (1) Volume overload: edema and vol OL refractory to diuretics for many days but now responding to bumex > over 7L past 48 hrs. 3 admissions here since October 2019 and no bumex at any time. currently on bumex gtt at 1 mg / hr and metolazone 5 mg daily >>>cont bumex current dose >>>cont metolazone 5 mg daily -repleted K for hypokalemia> will start standing dose 40 mEq daily and give extra 40 mEq dose today as well daily bmp -not a dialysis candidate at this time but need to consider goals of care more broadly b/c if not hospice will likely need to chronic dialysis longer term to manage volume; tend to doubt he would handle dialysis very well however given other comorbidities (2) Acute on chronic renal failure: kidney injury multifactorial including ATN in setting of Pseudomonas UTI and cardiorenal syndrome. Creatinine has improved with better diuresis and downt kay 2's today -diuretics as above -Daily BMP and weights -Input and output. -goals of care as above (3) Acute and chronic respiratory failure: Due to acute CHF exacerbation and obesity hypoventilation syndrome. Patient is down to 02nc, today 2L, most of the time -cont diuretics Cardiology on board; pulm signed off >agree w/ recommnendation to discuss DNR/DNI status further and overall to reinforce still poor prognosis despite improvemnt (4) UTI (urinary tract infection): Urine culture positive for Pseudomonas on cefepime (5) Palliative care encounter: palliative care c/s reviewed > note that pt for now to remain full code but plan is to transition home w/ hospice. follow for updates w/ goals of care Admission and Anticipated Discharge Date Admission Date: June 12, 2020 Subjective tolerating bumex well and 5.6L negative, though this may be in part b/c on ly 100 mL intake documented; more confused today and encephalopathy w/u underway Review of Systems Review of Systems: Unobtainable due to cognitive status Physical Exam Constitutional: well developed and + morbidly obese; no acute distress Eyes: EOM intact bilaterally ENMT: Ears: no external ear abnormality Neck: + thick neck Respiratory: normal respiratory effort and + labored breathing Auscultation: + diminished lung sounds Cardiovascular: Rate/Rhythm: regular rate and + irregularly irregular (HS distant) Extremities: + edema (1-2+) Gastrointestinal (Abdomen): normal bowel sounds, soft, nontender, no hepatos plenomegaly Musculoskeletal: Extremities: + limited ROM of extremities and + abnormal strength Skin: + turgor decreased, + skin tightening (BLe) and + erythema (BLE) Neurologic: montoya; generalized weakness Psychiatric: Orientation: oriented to person Genitourinary: huang w/ ample urine Results & Data ([facility]) Vital Signs (Past 12 Hours) Vital Signs Temp Pulse Pulse Pulse Resp BP Pulse Ox 06/21/20 08:23 36.7 C 62 62 20 119/73 99 06/21/20 07:17 71 23 98 06/21/20 03:16 36.9 C 61 20 107/55 L 98 06/21/20 03:05 60 24 96 06/21/20 00:11 78 78 26 H 98 06/20/20 23:22 36.9 C 59 L 22 101/59 L 97 Laboratory Results 06/21/20 05:55 06/21/20 05:55 (1) Acute on chronic renal failure Acute renal failure type: unspecified Chronic kidney disease stage: stage 3 (moderate) Chronic kidney disease stage 3 subtype: stage 3a (GFR 45-59) Qualified Code(s): N17.9 - Acute kidney failure, unspecified; N18.31 - Chronic kidney disease, stage 3a (2) Volume overload Hypervolemia type: other Qualified Code(s): E87.79 - Other fluid overload
[2020-06-21 11:46] LABS: Base Excess ABG 8.1 mEq/L (-9-1.8); HCO3 ABG 34 mmol/L (19-24); Oxygen Saturation ABG 98.2 % (90-95); PCO2 ABG 53 mmHg (35-46); PO2 ABG 116 mmHg (80-95); pH ABG 7.42 (7.35-7.45)
[2020-06-21 11:56] LABS: Allen Test Pos (Pos)
--- NOTE | 2020-06-21 12:12 | CT Scan Report ---
CT OF THE HEAD WITHOUT CONTRAST CLINICAL HISTORY: altered mental status, left sided weakness COMPARISON STUDY: Head CT June 12, 2020. CT DOSE: 1228.53 mGy.cm TECHNIQUE: Helical axial images of the head were obtained without IV contrast. Automated exposure con trol was utilized for the study. A dose lowering technique was utilized adhering to the principles o f ALARA. FINDINGS: This exam is moderately compromised by motion artifact. No acute intracranial hemorrhage, m idline shift or mass effect is present. Ventricular system is stable. Basilar cisterns are patent. Th ere are no extra-axial collections. White matter hypodensities are similar to prior exam and suggest small vessel disease. There are no findings to suggest acute dural sinus thrombosis or acute territor ial infarct. There may be an old infarct within the medial right cerebellar hemisphere. This is uncha nged. There are postsurgical findings within the sinuses. There is right-sided sinus mucosal thickeni ng with secretions. There is no calvarial fracture IMPRESSION: No acute intracranial findings. Exam compromised by motion artifact. No significant ray ge since prior study. ACT 112: Negative or not required by law. Electronically signed by: Remington Bazan M.D. 06/21/2020 12:10 PM
[2020-06-21] MEDS: POTASSIUM CHLORIDE CRTAB 20 MEQ TABCR PO SCH (12:21)
[2020-06-21] MEDS: CEFEPIME 2,000 MG in SYRINGE 0 ML IV SCH ×3 (12:24→22:50)
[2020-06-21] MEDS: FAMOTIDINE 20 MG in SYRINGE 3 ML IV SCH (12:28)
--- NOTE | 2020-06-21 15:54 | Neurology Consultation ---
Date of Consultation June 21, 2020 Assessment & Plan (1) Acute alteration in mental status: 1. CT head- no acute findings 2. MRI would be more specific but unlikely to tolerate- would repeat CT head tomorrow 3. right arm weakness? - would xray and may be helpful to doppler it is unclear what is causing miss use 4. palliative is involved and plan to return home and at that time convert code from full to DNR 5. continue coumadin for afib 6. optimize DM, HTN, HLD please consider patients over all status 7. bi pap needed for hypoxia and hypercapnia- may need to wear during the day to see if helps MS Present on Admission?: Yes (2) Obesity hypoventilation syndrome: 1. bi pap for hypoxia and hypercapnia 2. lasix for fluid overload- recommendations per pulmonary Present on Admission?: Yes Supervising Physician Co-Signing Physician Notes I have seen and discussed above patient with Dr Jaimie Harmon, neurologyPt seen and examined, hx reviewed. CT head R cerebeallar infarct seen on CT head 05/07. Pt has not complaints. Sleepy but arousable. Able to state name and follow rare commands. NNeck supple, no file cut or remington facial asymmetry. RUE greater than antigrav . RKL\\LE may move slightly less well than LLE. Impression Encephalopaf able to id new stroke, alternatively if unable then CT head id am. Further eval will depend on resultts of imaging History of Present Illness Reason for Consultation: confusion Requesting Physician: Sanjay Rocha MD Attending Physician: Sanjay Rocha MD History of Present Illness Javid is an obese gentleman with PMH DM 2 hypothyroidism, COPD, obesity hypoventilation syndrome chronic diastolic heart failure on BiPAP kidney stage III. He was brought in by his brother because of increasing shortness of breath and confusion has been ongoing for 3 to 4-day prior to admission. He was started on BiPAP and saturations picked up denied any cough fever chest pain nausea or vomiting or abdominal pain. He is likely non complaint with CPAP and his diuretics. He continue to be confused and limited cooperation with exam. moans with exam but says "no" when asked if he has pain. Allergies Allergy/AdvReac Type Severity Reaction Status Date / Time pollen extracts Allergy Mild sneezing/watery Verified 06/12/20 21:21 eyes Home Medications Medication Instructions Recorded Confirmed Type atorvastatin 10 mg PO HS 10/24/18 06/12/20 History levothyroxine 25 mcg PO QAM 10/24/18 06/12/20 History levothyroxine 200 mcg PO QAM 10/24/18 06/12/20 History metoprolol succinate 25 mg PO QAM 10/24/18 06/12/20 History pantoprazole 40 mg tablet,delayed 40 mg PO BID 02/11/19 06/12/20 History release albuterol sulfate 2 puff INHALATION QID 11/29/19 06/12/20 History fluoxetine 10 mg PO DAILY 11/29/19 06/12/20 History hydralazine 50 mg PO QID 11/29/19 06/12/20 History insulin aspart U-100 [Novolog 1 sliding scale dose SUBCUT TID 11/29/19 06/12/20 History U-100 Insulin aspart] Anoro Ellipta 1 ea INHALATION DAILY #14 ea 12/05/19 06/12/20 Rx Calmoseptine 1 applic TOPICAL TID PRN 05/17/20 06/12/20 History fluticasone propionate 2 spray INTRANASAL DAILY 05/17/20 06/12/20 History furosemide 80 mg PO BID 05/17/20 06/12/20 History gabapentin 100 mg PO TID 05/17/20 06/12/20 History linaclotide 145 mcg PO QAM 05/17/20 06/12/20 History nystatin 1 applic TOPICAL BID 05/17/20 06/12/20 History tramadol 50 mg PO BID 05/17/20 06/12/20 History tramadol 50 mg PO Q4 PRN 05/17/20 06/12/20 History warfarin 1 - 2 mg PO DAILY 05/17/20 06/12/20 History insulin glargine [Lantus Solostar 10 unit SC HS #3 ml 05/21/20 06/12/20 Rx U-100 Insulin] sodium chloride [Saline Nasal Mist] 1 spray INTRANASAL BID PRN 06/12/20 06/12/20 History vitamin B [id number]-I-[id number]-zinc cit 1 tab PO DAILY 06/12/20 06/12/20 History Patient History Medical History (Updated 06/19/20 @ 15:14 by Tiffani Ward MD, PhD) Anemia Chronic diastolic heart failure COPD (chronic obstructive pulmonary disease) inhalers daily/prn and oxygen 2L n/c Diabetes mellitus, type 2 Elevated troponin I level Graves disease History of gastric ulcer Hyperlipidemia Hypertension Hypothyroidism Hypoxia Left bundle branch block chronic Morbid obesity with BMI of 50.0-59.9, adult Obesity hypoventilation syndrome Obesity hypoventilation syndrome On home oxygen therapy 2L N/C at all times SAFIA (obstructive sleep apnea) cpap--2L oxygen Palliative care encounter Surgical History History of angioplasty 2003 @ [facility] [place]--no stents History of colonoscopy History of endoscopic sinus surgery History of esophagogastroduodenoscopy (EGD) History of tooth extraction History of wisdom tooth extraction S/P correction of deviated nasal septum Family History Mother Diabetes Hypertension Brother , dies at 44 yo from [place] Heart disease Other No family history of adverse response to anesthesia Social History Smoking Status: Current some day smoker Tobacco Type: Cigarettes Years Smoked: 60; Cigarettes Per Day: 4; Second Hand Exposure: Yes; Hx Alcohol Use: No Hx Substance Use: No Preferred Language: Bulgarian Communication Ability: Impaired Director Of Institutional Sales Required: Voice Beliefs That Will Affect Care: None marital status: Single Current Living Situation: Family Current Living Situation Comment: Lives with Brother current occupational status: unemployed Other Information That Helps Us Care for You: No Feels Safe at Home: Yes Safety Concerns: Feels Safe At This Time Assistive Devices: Oxygen - Continuous Review of Systems Review of Systems: All systems reviewed & are unremarkable except as noted in HPI & below and All systems reviewed & are unremarkable except as noted in Subjective Physical Exam Physical Exam: Physical Exam: Constitutional: appearance ill appearing morbidly obese male Ears, Nose, Mouth and Throat: mucous membranes moist, no injection and skin normal, eyes normal Cardiovascular: irregular Respiratory: course breath sounds with wheezing through out Musculoskeletal: 2+ pitting peripheral edema unable to palpate pulses Skin: ecchymosis arms and legs Eyes: extraocular muscles intact (EOMI) NEUROLOGIC EXAMINATION: Mental status: Alert and minimally interactive Oriented to person Speech one word answers Cranial Nerves facial symmetry Reflexes: Deep tendon reflexes were symmetrical bilaterally downgoing toes. Sensory: unable to assess Coordination: would not cooperate with exam Gait/Stance: Posture lying in bed Motor: limited movement in all extremities Strength: able to pull with right arm, will not hold up, left arm hold up with command, LE movement limited due to size Results & Data ([facility]) Vital Signs (Past 12 Hours) Vital Signs Temp Pulse Pulse Resp BP Pulse Ox 06/21/20 15:43 36.4 C L 60 22 119/65 99 06/21/20 13:32 58 L 16 99 06/21/20 12:26 36.8 C 60 16 135/70 100 06/21/20 08:23 36.7 C 62 62 20 119/73 99 06/21/20 07:17 71 23 98 Laboratory Results Abnormal lab results 06/14/20 06/20/20 06/21/20 Range/Units 11:17 20:35 05:55 RBC 3.44 L (4.7-6.1) M/uL Hgb 9.6 L (14.0-18.0) g/dL Hct 31.0 L (42-52) % MCHC 31.0 L (32-36) g/dL RDW Std Deviation 67.4 H (36.4-46.3) fL RDW Coeff of Neena 20.8 H (11.5-14.5) % Harmon # (Auto) 0.89 H (0.11-0.59) K/uL PT (9.0-12.0) Seconds INR (0.9-1.1) ABG pCO2 (35-46) mmHg ABG pO2 (80-95) mmHg ABG HCO3 (19-24) mmol/L ABG O2 Saturation (90-95) % ABG Base Excess (-9-1.8) mEq/L Potassium (3.5-5.1) mmol/L BUN (7-18) mg/dl Creatinine (0.6-1.4) mg/dl BUN/Creatinine Ratio (10-20) Glucose (70-99) mg/dl POC Glucose 104 H (70-99) mg/dl ALVINA Screen POSITIVE A (NEGATIVE) ALVINA Titer > OR = 1:1280 A titer ALVINA Titer 2 1:160 H titer ALVINA Pattern Nuclear, Nucleolar A ALVINA Pattern 2 Nuclear, Homogeneous A 06/21/20 06/21/20 06/21/20 Range/Units 05:55 07:45 09:40 RBC (4.7-6.1) M/uL Hgb (14.0-18.0) g/dL Hct (42-52) % MCHC (32-36) g/dL RDW Std Deviation (36.4-46.3) fL RDW Coeff of Neena (11.5-14.5) % Harmon # (Auto) (0.11-0.59) K/uL PT 24.1 H (9.0-12.0) Seconds INR 2.4 H (0.9-1.1) ABG pCO2 (35-46) mmHg ABG pO2 (80-95) mmHg ABG HCO3 (19-24) mmol/L ABG O2 Saturation (90-95) % ABG Base Excess (-9-1.8) mEq/L Potassium 3.3 L (3.5-5.1) mmol/L BUN 72 H (7-18) mg/dl Creatinine 2.52 H D (0.6-1.4) mg/dl BUN/Creatinine Ratio 28.4 H (10-20) Glucose 108 H (70-99) mg/dl POC Glucose 125 H (70-99) mg/dl ALVINA Screen (NEGATIVE) ALVINA Titer titer ALVINA Titer 2 titer ALVINA Pattern ALVINA Pattern 2 06/21/20 06/21/20 06/21/20 Range/Units 11:32 11:46 15:50 RBC (4.7-6.1) M/uL Hgb (14.0-18.0) g/dL Hct (42-52) % MCHC (32-36) g/dL RDW Std Deviation (36.4-46.3) fL RDW Coeff of Neena (11.5-14.5) % Harmon # (Auto) (0.11-0.59) K/uL PT (9.0-12.0) Seconds INR (0.9-1.1) ABG pCO2 53 H (35-46) mmHg ABG pO2 116 H (80-95) mmHg ABG HCO3 34 H (19-24) mmol/L ABG O2 Saturation 98.2 H (90-95) % ABG Base Excess 8.1 H (-9-1.8) mEq/L Potassium (3.5-5.1) mmol/L BUN (7-18) mg/dl Creatinine (0.6-1.4) mg/dl BUN/Creatinine Ratio (10-20) Glucose (70-99) mg/dl POC Glucose 121 H 133 H (70-99) mg/dl ALVINA Screen (NEGATIVE) ALVINA Titer titer ALVINA Titer 2 titer ALVINA Pattern ALVINA Pattern [address] head-No acute intracranial findings. Exam compromised by motion artifact. No significant change since prior study.
--- NOTE | 2020-06-21 20:25 | Hospitalist Progress Note ---
Date of Service June 21, 2020 Assessment & Plan (1) Acute and chronic respiratory failure: Acute on chronic right heart failure Obstructive sleep apnea on BiPAP Chronic obstructive pulmonary disease Morbid Obesity Bilateral Pleural Effusions -This is a morbidly obese patient with multiple reasons for acute on chronic respiratory failure. Back in previous hospitalization, patient had 05/17/2020 CT scan that visualized well the bilateral pleural effusions for which the right sided lung durant had more effusion than the left in addition to other known health issues. -as per the 06/12/2020 ED notes that patient "presents to the ER with about 3 or 4 days of shortness of breath. Today, his brother thought he seemed more confused. The ambulance was called. Patient was on BiPAP when the ambulance arrived. He had a low O2 saturation of around 89% on 4 L, the patient typically wears 2.5 L on a daily basis." [place] [address] pg/ml -his admission 06/12/2020 admission CXR "Moderate right pleural effusion is noted. There is no pneumothorax. There is a small left pleural effusion. Asymmetric right hemithorax opacification is noted. In part, this is due to the pleural effusion. Patient is rotated. Cardiomegaly is noted. There is suspected mild pulmonary edema. Findings have slightly progressed since prior exam" -Patient's home medication of oral Lasix 80 mg BID has been changed by admitting physician Dr. Ingram to 60 mg IV q12 hours while having patient on BIPAP -hospitalist have modified the Lasix dosing on 06/14/2020 as 40 mg IV TID however nursing reported generally low urine output 06/21/19 urine output improving since being Transitioned from Lasix to Bumex drip Continue metolazone patient lethargic again today ABG showing no signs of respiratory acidosis Ammonia normal CT head, no acute CVA Neurologist consulted continue to monitor closely Acute metabolic encephalopathy on admission -his mental status may wax and wane due to the breathing issues, BIPAP with sleep or somnolence has been given -06/15/2020: patient is more somnolent this day time, apparently he received ativan by night time hospitalist for agitation, have discussed concerns of acute respiratory failure which may require intubation if his condition does not improve. ICU Dr. Huynh accept patient to ICU for further monitoring. will keep patient NPO for now until ICU re-assessment Per #1 Anemia no melena noted from Acute on CKD? on Famotidine Hemoglobin 7.1, 1 unit packed RBCs ordered, hemoglobin 7.5-second unit packed RBCs ordered Hg 9.6 monitor Bradycardia on admission - holding beta blockers at this time, (of note that his previous hospitalization had listed amiodarone but not currently active on current home med list ) his amiodarone from previous hospitalization has not been given on this admission - HR 60s History of paroxysmal ventricular tachycardia History of atrial flutter Chronic anticoagulation with coumadin -mildly elevated INR on presentation as 3.3. -INR 2.4 -Coumadin on hold in light of anemia Acute kidney injury on chronic kidney disease stage III In the setting of UTI, possible cardiorenal syndrome -Baseline creatinine around 1.2 to 1.4 but this admission creatinine of 3.2. - crea 3.5 --> 3.2--> 2.5 transitioned to Bumex drip Day 4 UTI, Pseudomonas On cefepime Hypertension -hold the oral home dose hydralazine and statin Diabetes Mellitus Type 2 with inpatient services director current use of insulin -has been on insulin, monitor blood sugar, while in ICU Gastroesophageal reflux disease -Continue Protonix Hypothyroidism -home dose oral synthroid to be held for now. TSH normal Depression -hold oral fluoxetine for now Disposition pending Palliative care consulted Admission and Anticipated Discharge Date Admission Date: June 12, 2020 Subjective Follow-up for acute CF exacerbation, with acute renal failure, etc Seen sitting up in bed, not in distress but very lethargic, mumbles words, confused But not in distress Seems to have right-sided weakness CT head, ABG, ammonia level stat No other symptoms noted Review of Systems Review of Systems: All systems reviewed & are unremarkable except as noted in Subjective Physical Exam Physical Exam: General- oriented x 0, not in distress, breathing with no effort or accessory muscle use Eyes- anicteric Neck- no JVD Lungs- mild rales at the bases no wheezing Heart- normal rate, regular rhythm; no murmurs Abdomen- normal bowel sounds, nondistended, soft, nontender Extremities-mild pretibial edema, no calf tenderness Neuro-lethargic; no facial droop noted, (+) right sided weakness, no gross focal neurologic deficits Skin- warm & dry Results & Data Results & Data ([facility]) Vital Signs (Past 12 Hours) Vital Signs Temp Pulse Pulse Resp BP BP Pulse Ox 06/21/20 19:27 60 18 98 06/21/20 19:13 36.8 C 60 24 109/61 95 06/21/20 15:43 36.4 C L 60 22 119/65 99 06/21/20 13:32 58 L 16 99 06/21/20 12:26 36.8 C 60 16 135/70 100 06/21/20 08:23 36.7 C 62 62 20 119/73 99
[2020-06-22] MEDS: IPRATROPIUM BROMIDE NEB SOLN 0.02% 2.5 ML VIAL INH SCH ×4 (00:34→19:57)
[2020-06-22] MEDS: LEVALBUTEROL 1.25MG/0.5ML NEB INH SCH ×4 (00:34→19:57)
[2020-06-22] MEDS: LEVOTHYROXINE SODIUM 25 MCG TABLET PO SCH (06:02)
[2020-06-22] MEDS: LEVOTHYROXINE SODIUM 200 MCG TABLET PO SCH (06:03)
[2020-06-22 06:17] LABS: Basophils # (auto) 0.07 K/uL (0-0.2); Basophils % (auto) 1.2 %; Eosinophils # (auto) 0.32 K/uL (0-0.5); Eosinophils % (auto) 5.7 %; Hematocrit (blood only) 32.3 % (42-52); Immature Granulocytes # (auto) 0.02 K/uL (0.00-0.02); Immature Granulocytes % (auto) 0.4 %; Lymphocytes # (auto) 1.17 K/uL (1.2-3.4); Lymphocytes % (auto) 20.7 %; Mean Corpuscular Hemoglobin 28.2 pg (25-34); Mean Corpuscular Volume 91.2 fL (80-100); Mean Platelet Volume 9.3 fL (7.4-10.4); Monocytes # (auto) 0.81 K/uL (0.11-0.59); Monocytes % (auto) 14.3 %; Neutrophils # (auto) 3.26 K/uL (1.4-6.5); Neutrophils % (auto) 57.7 %; Platelet Count 130 K/uL (130-400); RDW Coefficient of Variation 20.6 % (11.5-14.5); RDW Standard Deviation 67.8 fL (36.4-46.3); Red Blood Count 3.54 M/uL (4.7-6.1); White Blood Count 5.65 K/uL (4.8-10.8)
[2020-06-22 06:46] LABS: Anisocytosis Present; Polychromasia 1+
[2020-06-22 07:06] LABS: BUN Creatinine Ratio 31.1 (10-20); Calcium 9.2 mg/dl (8.5-10.1); Creatinine Clr Calc Pharmacy 52.6 ml/min; Est GFR (African American) 36.1; Est GFR (Non-African American) 31.1; Potassium 3.5 mmol/L (3.5-5.1)
[2020-06-22] MEDS: INSULIN ASPART 100 UNITS/ML 3 ML PEN SC SCH ×4 (08:44→22:51)
[2020-06-22] MEDS: POTASSIUM CHLORIDE CRTAB 20 MEQ TABCR PO SCH (08:45)
[2020-06-22] MEDS: metOLazone 5 MG TABLET PO SCH (08:45)
[2020-06-22] MEDS: NYSTATIN POWDER 15GM BTL EXT SCH ×2 (08:46→22:25)
[2020-06-22] MEDS: BUMETANIDE 10 MG in DEXTROSE 5% 10 ML IV SCH ×2 (09:32→18:23)
[2020-06-22 10:14] LABS: INR 2.5 (0.9-1.1)
--- NOTE | 2020-06-22 10:32 | CT Scan Report ---
HEAD CT NONCONTRAST CT DOSE: 1068.94 mGy.cm HISTORY: r sided weakness, lethargic, r/o CVA TECHNIQUE: Multiaxial CT images of the head were performed without the use of intravenous contrast. A utomated exposure control was utilized for this study. A dose lowering technique was utilized adheri ng to the principles of ALARA. Comparison: Head CT 06/21/2020. Findings: Postoperative changes again noted within the paranasal sinuses with chronic opacification o f the right sphenoid sinus. This remains unchanged. The mastoid air cells are clear. The calvarium an d skull base are intact. There is no mass, hematoma, midline shift, acute infarct. White matter hypod ensity is nonspecific but suggestive of microvascular ischemic change. The ventricles and sulci demon strate mild age-related involutional changes. 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 Impression: No significant change compared to the prior study. No acute intracranial abnormality. ACT 112: Negative or not required by law. Electronically signed by: Jerson Dee M.D. 06/22/2020 10:30 AM
[2020-06-22] MEDS: FAMOTIDINE 20 MG in SYRINGE 3 ML IV SCH (11:59)
[2020-06-22] MEDS: CEFEPIME 2,000 MG in SYRINGE 0 ML IV SCH ×2 (11:59→22:26)
--- NOTE | 2020-06-22 12:55 | Palliative Care Progress Note ---
Date of Service June 22, 2020 Assessment & Plan (1) Acute on chronic respiratory failure with hypoxia and hypercapnia: (2) COPD exacerbation: (3) Obesity hypoventilation syndrome: (4) CHF (congestive heart failure): (5) Palliative care encounter: I spoke with Mac to address his questions about the plan of care. We reviewed Javid's prognosis being poor with is multifactorial respiratory failure. Despite optimal medical treatment, he continues to have dyspnea, hypercarbic and hypoxic episodes. Per Javid's wishes, goal is for comfort on discharge with hospice care to follow for support and symptom management. We discussed Mac's questions about recent CT scans and possibility of CVA and reviewed negative CT done today. He voices understanding and though it is difficult for him to accept losing his brother, he supports Javid's decision. Javid does indicate that he remembers discussing goals of care with palliative care [employer]. He nods when asked if plan is to return home with hospice care when ready for discharge. Admission and Anticipated Discharge Date Admission Date: June 12, 2020 Subjective Javid is awake and alert. He has difficulty answering questions and appears to have some aphasia, answering "yup" to most questions and responding with jumbled words to others. He has also had right arm weakness. He denies feeling short of breath or having pain. Review of Systems Review of Systems: [place] Symptom Assessment Scale Pain 0/3 Dyspnea 0/3 Nausea 0/3 Drowsiness 0/3 Palliative Performance Score 30% Physical Exam Constitutional: + morbidly obese; no acute distress Respiratory: no labored breathing Gastrointestinal (Abdomen): Inspection/Auscultation: + significant pannus Skin: warm and dry Psychiatric: Orientation: alert Results & Data ([facility]) Vital Signs (Past 12 Hours) Vital Signs Temp Pulse Pulse Pulse Resp BP Pulse Ox 06/22/20 12:02 99.0 F 65 18 140/67 98 06/22/20 07:30 98.1 F 62 22 136/80 97 06/22/20 07:28 62 23 98 06/22/20 04:30 98.8 F 65 20 122/71 99 06/22/20 03:22 63 24 98 PG Care Time/CCT Total # of Minutes Spent Total Time Spent with Patient: Total time spent is greater than 50% in coordination of care (as documented) at patient's floor/unit and/or counseling patient: total time spent 35 minutes with more than 50% of time spent on family support and communication, goals of care. Coding Level of Care Code 41928 Subseq Hosp Care Lvl 3 Diagnoses Acute on chronic respiratory failure with hypoxia and hypercapnia J96.21; J96.22 COPD exacerbation J44.1 Obesity hypoventilation syndrome E66.2 CHF (congestive heart failure) I50.9 Heart failure chronicity: acute on chronic Heart failure type: unspecified Palliative care encounter Z51.5 (1) CHF (congestive heart failure) Heart failure chronicity: acute on chronic Heart failure type: unspecified Qualified Code(s): I50.9 - Heart failure, unspecified
--- NOTE | 2020-06-22 16:43 | Progress Notes ---
DATE: 06/22/2020 SUBJECTIVE: I am seeing Mr. Douglass in followup of change in mental status and possible right upper extremity weakness. CT of the head upon repeat does not show any acute infarction. MRI of the brain has not been ordered or done. I have ordered a carotid ultrasound, but it has not yet been done. The patient's labs for today were reviewed. His ABG from yesterday was reviewed as well. OBJECTIVE: The patient has been afebrile. Most recent vitals are 37, pulse 79, blood pressure 109/60, pulse ox 100% on 3 liters by nasal cannula. The patient is awake. Mentation is slow. He is perseverative. Able to state his name, not his location. Speech is dysarthric. Would not cooperate with naming. Follows simple 1-step commands, lifting each arm approximately symmetrically. There is no fixed gaze preference. Motility appeared to be normal and there is normal facial symmetry. IMPRESSION: Encephalopathy, query superimposed right upper extremity weakness. Pt appears nonfocal on today's exam and slightly more alert Followup CT today shows no evidence of a large vessel infarction. PLAN: MRI brain, noncontrast if it can be performed. Carotid ultrasound. The patient's risks are as adequately managed as they can be including his blood pressure being currently adequate, blood sugar being unremarkable. His INR is therapeutic and he is on antiplatelet therapy with aspirin. If the aforementioned testing does not reveal any etiology, consider an EEG. MTDD
--- NOTE | 2020-06-22 17:56 | Nephrology Progress Note ---
Date of Service June 22, 2020 Assessment & Plan (1) Volume overload: edema and vol OL refractory to diuretics for many days but now responding to bumex > over 12L past 48 hrs. 3 admissions here since October 2019 and no bumex at any time. currently on bumex gtt at 1 mg / hr and metolazone 5 mg daily >>>will lower bumex dose to 0.5 mg hourly >>>will hold metolazone starting tomorrow -cont standing dose 40 mEq daily and will again give extra 40 mEq dose today as well daily bmp -not a dialysis candidate at this time but need to consider goals of care more broadly b/c if not hospice will likely need to chronic dialysis longer term to manage volume; tend to doubt he would handle dialysis very well however given other comorbidities (2) Acute on chronic renal failure: kidney injury multifactorial including ATN in setting of Pseudomonas UTI and cardiorenal syndrome. Creatinine has improved with better diuresis and down to low 2's today -diuretics as above -Daily BMP and weights -Input and output. -goals of care as above (3) Acute and chronic respiratory failure: Due to acute CHF exacerbation and obesity hypoventilation syndrome. Patient is down to 02nc, today 3L, most of the time -cont diuretics cardiology and pulm have signed off (4) UTI (urinary tract infection): Urine culture positive for Pseudomonas on cefepime (5) Palliative care encounter: palliative care c/s reviewed > note that pt for now to remain full code but plan is to transition home w/ hospice. need to know from team will we d/c on po diuretics or not; note he remains full code Admission and Anticipated Discharge Date Admission Date: June 12, 2020 Subjective awake but still very confused; not answering appropriately; speaks to me at first then drifts off Review of Systems 2 Review of Systems: Unobtainable due to cognitive status Physical Exam Constitutional: well developed and + morbidly obese; no acute distress Eyes: EOM intact bilaterally ENMT: Ears: no external ear abnormality Neck: + thick neck Respiratory: normal respiratory effort; no labored breathing Auscultation: + diminished lung sounds Cardiovascular: Rate/Rhythm: regular rate and + irregularly irregular (HS distant) Extremities: + edema (1-2+) Gastrointestinal (Abdomen): normal bowel sounds, soft, nontender, no hepatosplenomegaly Musculoskeletal: Extremities: + limited ROM of extremities and + abnormal strength Skin: + turgor decreased, + skin tightening (BLe) and + erythema (BLE) Psychiatric: Orientation: oriented to person Genitourinary: huang w/ ample urine Results & Data ([facility]) Vital Signs (Past 12 Hours) Vital Signs Temp Pulse Resp BP BP Pulse Ox 06/22/20 15:18 37.0 C 79 20 109/60 100 06/22/20 13:19 67 20 96 06/22/20 12:02 37.2 C 65 18 140/67 98 06/22/20 07:30 36.7 C 62 22 136/80 97 06/22/20 07:28 62 23 98 Laboratory Results 06/22/20 05:30 06/22/20 06:39 (1) Volume overload Hypervolemia type: other Qualified Code(s): E87.79 - Other fluid overload (2) Acute on chronic renal failure Acute renal failure type: unspecified Chronic kidney disease stage: stage 3 (moderate) Chronic kidney disease stage 3 subtype: stage 3a (GFR 45-59) Qualified Code(s): N17.9 - Acute kidney failure, unspecified; N18.31 - Chronic kidney disease, stage 3a
[2020-06-22] MEDS ORDERED: POTASSIUM CHLORIDE CRTAB 20 MEQ TABCR PO ONE (18:01)
--- NOTE | 2020-06-22 20:57 | Hospitalist Progress Note ---
Date of Service June 22, 2020 Assessment & Plan (1) Acute and chronic respiratory failure: Acute on chronic right heart failure Obstructive sleep apnea on BiPAP Chronic obstructive pulmonary disease Morbid Obesity Bilateral Pleural Effusions -This is a morbidly obese patient with multiple reasons for acute on chronic respiratory failure. Back in previous hospitalization, patient had 05/17/2020 CT scan that visualized well the bilateral pleural effusions for which the right sided lung durant had more effusion than the left in addition to other known health issues. -as per the 06/12/2020 ED notes that patient "presents to the ER with about 3 or 4 days of shortness of breath. Today, his brother thought he seemed more confused. The ambulance was called. Patient was on BiPAP when the ambulance arrived. He had a low O2 saturation of around 89% on 4 L, the patient typically wears 2.5 L on a daily basis." [place] [address] pg/ml -his admission 06/12/2020 admission CXR "Moderate right pleural effusion is noted. There is no pneumothorax. There is a small left pleural effusion. Asymmetric right hemithorax opacification is noted. In part, this is due to the pleural effusion. Patient is rotated. Cardiomegaly is noted. There is suspected mild pulmonary edema. Findings have slightly progressed since prior exam" -Patient's home medication of oral Lasix 80 mg BID has been changed by admitting physician Dr. Ingram to 60 mg IV q12 hours while having patient on BIPAP -hospitalist have modified the Lasix dosing on 06/14/2020 as 40 mg IV TID however nursing reported generally low urine output 06/22/19 urine output improving since being Transitioned from Lasix to Bumex drip -16 L so far since admission Bumex drip reduced 2.5 mg/h Metolazone discontinued patient lethargic again some right-sided weakness 06/21/2020 ABG showing no signs of respiratory acidosis Ammonia normal Initial CT head, no acute CVA Repeat CT head today no acute CVA Neurologist consulted, recommend brain MRI and carotid ultrasound Patient already on Coumadin, therapeutic INR, and aspirin Acute kidney injury on chronic kidney disease stage III In the setting of UTI, possible cardiorenal syndrome -Baseline creatinine around 1.2 to 1.4 but this admission creatinine of 3.2. - crea 3.5 --> 3.2--> 2.5--> 2.1 transitioned to Bumex drip Day 5, reduced to 0.5mg/hr -Nephrology service recommendations appreciated May need hemodialysis down the road Will need to discuss with family regarding goals of care Acute metabolic encephalopathy on admission -his mental status may wax and wane due to the breathing issues, BIPAP with sleep or somnolence has been given -06/15/2020: patient is more somnolent this day time, apparently he received ativan by night time hospitalist for agitation, have discussed concerns of acute respiratory failure which may require intubation if his condition does not improve. ICU Dr. Huynh accept patient to ICU for further monitoring. will keep patient NPO for now until ICU re-assessment Per #1 Anemia no melena noted from Acute on CKD? on Famotidine Hemoglobin 7.1, 1 unit packed RBCs ordered, hemoglobin 7.5-second unit packed RBCs ordered Hg improved to 10 monitor Bradycardia on admission - holding beta blockers at this time, (of note that his previous hospitalization had listed amiodarone but not currently active on current home med list ) his amiodarone from previous hospitalization has not been given on this admission - HR 60s History of paroxysmal ventricular tachycardia History of atrial flutter Chronic anticoagulation with coumadin -mildly elevated INR on presentation as 3.3. -INR 2.5 -Coumadin on hold in light of anemia UTI, Pseudomonas On cefepime Hypertension -hold the oral home dose hydralazine and statin Diabetes Mellitus Type 2 with assisted current use of insulin -has been on insulin, monitor blood sugar, while in ICU Gastroesophageal reflux disease -Continue Protonix Hypothyroidism -home dose oral synthroid to be held for now. TSH normal Depression -hold oral fluoxetine for now Disposition pending Palliative care consulted Admission and Anticipated Discharge Date Admission Date: June 12, 2020 Subjective Follow-up for acute CHF, acute renal failure on CKD, etc. 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 of Systems Review of Systems: All systems reviewed & are unremarkable except as noted in Subjective Physical Exam Physical Exam: General- oriented x 1, not in distress, speaks in sentences with no effort or accessory muscle use Eyes- anicteric Neck- no JVD Lungs-positive diminished breath sounds at the bases, no crackles Heart- normal rate, regular rhythm; no murmurs Abdomen- normal bowel sounds, nondistended, soft, nontender Extremities- mild pretibial edema, no calf tenderness Neuro- alert, oriented x 1; mostly confused, but no obvious /no gross focal neurologic deficits Skin- warm & dry Results & Data Results & Data ([facility]) Vital Signs (Past 12 Hours) Vital Signs Temp Pulse Pulse Resp BP BP Pulse Ox 06/22/20 19:58 72 16 99 06/22/20 19:54 36.8 C 72 24 111/52 L 97 06/22/20 15:18 37.0 C 79 20 109/60 100 06/22/20 13:19 67 20 96 06/22/20 12:02 37.2 C 65 18 140/67 98 Laboratory Results Laboratory Results - last 24 hr 06/22/20 06/22/20 06/22/20 05:30 05:30 06:39 WBC 5.65 RBC 3.54 L Hgb 10.0 L Hct 32.3 L MCV 91.2 MCH 28.2 MCHC 31.0 L RDW Std Deviation 67.8 H RDW Coeff of Neena 20.6 H Plt Count 130 MPV 9.3 Immature Gran % (Auto) 0.4 Neut % (Auto) 57.7 Lymph % (Auto) 20.7 [place] % (Auto) 14.3 Eos % (Auto) 5.7 Baso % (Auto) 1.2 Neut # (Auto) 3.26 Lymph # (Auto) 1.17 L [place] # (Auto) 0.81 H Eos # (Auto) 0.32 Baso # (Auto) 0.07 Immature Gran # (Auto) 0.02 Polychromasia 1+ Anisocytosis Present PT INR Sodium Cancelled 144 Potassium Cancelled 3.5 Chloride Cancelled 104 Carbon Dioxide Cancelled 37 H Anion Gap Cancelled 3.0 BUN Cancelled 67 H Creatinine Cancelled 2.14 H D Est Cr Clr Drug Dosing Cancelled 52.6 Est GFR ( Amer) Cancelled 36.1 Est GFR (Non-Af Amer) Cancelled 31.1 BUN/Creatinine Ratio Cancelled 31.1 H Glucose Cancelled 116 H POC Glucose Calcium Cancelled 9.2 06/22/20 06/22/20 06/22/20 07:12 09:41 11:21 WBC RBC Hgb Hct MCV MCH MCHC RDW Std Deviation RDW Coeff of Neena Plt Count MPV Immature Gran % (Auto) Neut % (Auto) Lymph % (Auto) [place] % (Auto) Eos % (Auto) Baso % (Auto) Neut # (Auto) Lymph # (Auto) [place] # (Auto) Eos # (Auto) Baso # (Auto) Immature Gran # (Auto) Polychromasia Anisocytosis PT 25.0 H INR 2.5 H Sodium Potassium Chloride Carbon Dioxide Anion Gap BUN Creatinine Est Cr Clr Drug Dosing Est GFR ( Amer) Est GFR (Non-Af Amer) BUN/Creatinine Ratio Glucose POC Glucose 124 H 130 H Calcium 06/22/20 06/22/20 16:18 20:40 WBC RBC Hgb Hct MCV MCH MCHC RDW Std Deviation RDW Coeff of Neena Plt Count MPV Immature Gran % (Auto) Neut % (Auto) Lymph % (Auto) [place] % (Auto) Eos % (Auto) Baso % (Auto) Neut # (Auto) Lymph # (Auto) [place] # (Auto) Eos # (Auto) Baso # (Auto) Immature Gran # (Auto) Polychromasia Anisocytosis PT INR Sodium Potassium Chloride Carbon Dioxide Anion Gap BUN Creatinine Est Cr Clr Drug Dosing Est GFR ( Amer) Est GFR (Non-Af Amer) BUN/Creatinine Ratio Glucose POC Glucose 143 H 143 H Calcium
[2020-06-23] MEDS: LEVALBUTEROL 1.25MG/0.5ML NEB INH SCH ×4 (00:16→19:36)
[2020-06-23] MEDS: IPRATROPIUM BROMIDE NEB SOLN 0.02% 2.5 ML VIAL INH SCH ×4 (00:16→19:36)
[2020-06-23] MEDS: BUMETANIDE 10 MG in DEXTROSE 5% 10 ML IV SCH (04:09)
[2020-06-23] MEDS: LEVOTHYROXINE SODIUM 25 MCG TABLET PO SCH (05:29)
[2020-06-23] MEDS: LEVOTHYROXINE SODIUM 200 MCG TABLET PO SCH (05:29)
[2020-06-23 05:53] LABS: Basophils # (auto) 0.05 K/uL (0-0.2); Basophils % (auto) 0.7 %; Eosinophils # (auto) 0.34 K/uL (0-0.5); Eosinophils % (auto) 4.9 %; Hematocrit (blood only) 32.5 % (42-52); Hemoglobin 10.5 g/dL (14.0-18.0); Immature Granulocytes # (auto) 0.03 K/uL (0.00-0.02); Immature Granulocytes % (auto) 0.4 %; Lymphocytes # (auto) 1.83 K/uL (1.2-3.4); Lymphocytes % (auto) 26.5 %; Mean Corpuscular Hemoglobin 29.7 pg (25-34); Mean Corpuscular Hgb Conc 32.3 g/dL (32-36); Mean Corpuscular Volume 91.8 fL (80-100); Mean Platelet Volume 9.9 fL (7.4-10.4); Monocytes # (auto) 0.78 K/uL (0.11-0.59); Monocytes % (auto) 11.3 %; Neutrophils # (auto) 3.88 K/uL (1.4-6.5); Neutrophils % (auto) 56.2 %; Platelet Count 117 K/uL (130-400); RDW Coefficient of Variation 20.5 % (11.5-14.5); RDW Standard Deviation 68.5 fL (36.4-46.3); Red Blood Count 3.54 M/uL (4.7-6.1); White Blood Count 6.91 K/uL (4.8-10.8)
[2020-06-23 06:21] LABS: Anisocytosis Present; Polychromasia 1+
[2020-06-23 06:27] LABS: Calcium 9.4 mg/dl (8.5-10.1); Creatinine Clr Calc Pharmacy 50.7 ml/min; Est GFR (African American) 35.7; Est GFR (Non-African American) 30.8; Potassium 3.8 mmol/L (3.5-5.1)
[2020-06-23] MEDS: NYSTATIN POWDER 15GM BTL EXT SCH ×2 (08:25→21:55)
[2020-06-23] MEDS: INSULIN ASPART 100 UNITS/ML 3 ML PEN SC SCH ×4 (08:27→21:55)
--- NOTE | 2020-06-23 08:56 | Hospitalist Progress Note ---
Date of Service June 23, 2020 Assessment & Plan (1) Acute and chronic respiratory failure: Acute on chronic right heart failure Obstructive sleep apnea on BiPAP Chronic obstructive pulmonary disease Morbid Obesity Bilateral Pleural Effusions -This is a morbidly obese patient with multiple reasons for acute on chronic respiratory failure. Back in previous hospitalization, patient had 05/17/2020 CT scan that visualized well the bilateral pleural effusions for which the right sided lung durant had more effusion than the left in addition to other known health issues. -as per the 06/12/2020 ED notes that patient "presents to the ER with about 3 or 4 days of shortness of breath. Today, his brother thought he seemed more confused. The ambulance was called. Patient was on BiPAP when the ambulance arrived. He had a low O2 saturation of around 89% on 4 L, the patient typically wears 2.5 L on a daily basis." [place] [id number] -his admission 06/12/2020 admission CXR "Moderate right pleural effusion is noted. There is no pneumothorax. There is a small left pleural effusion. Asymmetric right hemithorax opacification is noted. In part, this is due to the pleural effusion. Patient is rotated. Cardiomegaly is noted. There is suspected mild pulmonary edema. Findings have slightly progressed since prior exam" -Patient's home medication of oral Lasix 80 mg BID has been changed by admitting physician Dr. Ingram to 60 mg IV q12 hours while having patient on BIPAP -hospitalist have modified the Lasix dosing on 06/14/2020 as 40 mg IV TID however nursing reported generally low urine output 06/22/19 urine output improving since being Transitioned from Lasix to Bumex drip -16 L so far since admission Bumex drip reduced 2.5 mg/h Metolazone discontinued patient lethargic again some right-sided weakness 06/21/2020 ABG showing no signs of respiratory acidosis Ammonia normal Initial CT head, no acute CVA Repeat CT head today no acute CVA Neurologist consulted, recommend brain MRI and carotid ultrasound Patient already on Coumadin, therapeutic INR, and aspirin Acute kidney injury on chronic kidney disease stage III In the setting of UTI, possible cardiorenal syndrome -Baseline creatinine around 1.2 to 1.4 but this admission creatinine of 3.2. - crea 3.5 --> 3.2--> 2.5--> 2.1 transitioned to Bumex drip Day 6, reduced to 0.5mg/hr -Nephrology service recommendations appreciated May need hemodialysis down the road Will need to discuss with family regarding goals of care Acute metabolic encephalopathy on admission -his mental status may wax and wane due to the breathing issues, BIPAP with sle ep or somnolence has been given -06/15/2020: patient is more somnolent this day time, apparently he received ativan by night time hospitalist for agitation, have discussed concerns of acute respiratory failure which may require intubation if his condition does not improve. ICU Dr. Huynh accept patient to ICU for further monitoring. will keep patient NPO for now until ICU re-assessment Per #1 06/23 - pt awake but does not answer questions very much, neurology following, recommend brain MRI and US carotids (discussed w/ brother Lonnie who is in agreement w/ imaging) Anemia no melena noted from Acute on CKD? on Famotidine Hemoglobin 7.1, 1 unit packed RBCs ordered, hemoglobin 7.5-second unit packed RBCs ordered Hg improved to 10 monitor Bradycardia on admission - holding beta blockers at this time, (of note that his previous hospitalization had listed amiodarone but not currently active on current home med list ) his amiodarone from previous hospitalization has not been given on this admission - HR 60s History of paroxysmal ventricular tachycardia History of atrial flutter Chronic anticoagulation with coumadin -mildly elevated INR on presentation as 3.3. -INR 2.5 -Coumadin on hold in light of anemia UTI, Pseudomonas On cefepime Hypertension -hold the oral home dose hydralazine and statin Diabetes Mellitus Type 2 with [facility] current use of insulin -has been on insulin, monitor blood sugar, while in ICU Gastroesophageal reflux disease -Continue Protonix Hypothyroidism -home dose oral synthroid to be held for now. TSH normal Depression -hold oral fluoxetine for now Disposition pending Palliative care consulted, plan for home hospice Admission and Anticipated Discharge Date Admission Date: June 12, 2020 Subjective Pt is sitting up in bed in NAD, on NC. He is awake , appears to be watching TV. He moves his head and appears to be looking around, however does not speak much. Occasionally says "no" or mumbles. Does not answer appropriately. Moves extremities but appears weak. Review of Systems Review of Systems: Unobtainable due to cognitive status Physical Exam Physical Exam: General- obese male sitting up in bed, not in distress, no accessory muscle use, does not speak much Eyes- anicteric Neck- no JVD Lungs-positive diminished breath sounds at the bases, no crackles Heart- normal rate, regular rhythm; no murmurs Abdomen- normal bowel sounds, nondistended, soft, nontender Extremities- mild pretibial edema, no calf tenderness Neuro- awake and alert but not answering questions, moves extremities but appears very weak Skin- warm & dry Results & Data Results & Data ([facility]) Vital Signs (Past 12 Hours) Vital Signs Temp Pulse Pulse Pulse Resp BP Pulse Ox 06/23/20 07:37 68 20 98 06/23/20 07:30 37 C 75 18 109/65 99 06/23/20 05:00 36.6 C 70 20 117/61 97 06/23/20 00:18 68 23 98 06/23/20 00:17 68 23 98 06/23/20 00:00 65 06/22/20 23:58 36.6 C 69 22 125/67 96 06/22/20 22:04 66 24 92 Laboratory Results 06/23/20 06/23/20 06/23/20 Range/Units 07:41 05:32 05:32 WBC 6.91 (4.8-10.8) K/uL RBC 3.54 L (4.7-6.1) M/uL Hgb 10.5 L (14.0-18.0) g/dL Hct 32.5 L (42-52) % MCV 91.8 (80-100) fL MCH 29.7 (25-34) pg MCHC 32.3 (32-36) g/dL RDW Std Deviation 68.5 H (36.4-46.3) fL RDW Coeff of Neena 20.5 H (11.5-14.5) % Plt Count 117 L (130-400) K/uL MPV 9.9 (7.4-10.4) fL Immature Gran % (Auto) 0.4 % Neut % (Auto) 56.2 % Lymph % (Auto) 26.5 % Wilcox % (Auto) 11.3 % Eos % (Auto) 4.9 % Baso % (Auto) 0.7 % Neut # (Auto) 3.88 (1.4-6.5) K/uL Lymph # (Auto) 1.83 (1.2-3.4) K/uL Wilcox # (Auto) 0.78 H (0.11-0.59) K/uL Eos # (Auto) 0.34 (0-0.5) K/uL Baso # (Auto) 0.05 (0-0.2) K/uL Immature Gran # (Auto) 0.03 H (0.00-0.02) K/uL Polychromasia 1+ Anisocytosis Present PT (9.0-12.0) Seconds INR (0.9-1.1) Sodium 145 (136-145) mmol/L Potassium 3.8 (3.5-5.1) mmol/L Chloride 104 (98-107) mmol/L Carbon Dioxide 37 H (21-32) mmol/L Anion Gap 4.0 (3-11) BUN 65 H (7-18) mg/dl Creatinine 2.16 H (0.6-1.4) mg/dl Est Cr Clr Drug Dosing 50.7 ml/min Est GFR ( Amer) 35.7 Est GFR (Non-Af Amer) 30.8 BUN/Creatinine Ratio 30.0 H (10-20) Glucose 126 H (70-99) mg/dl POC Glucose 133 H (70-99) mg/dl Calcium 9.4 (8.5-10.1) mg/dl 06/22/20 06/22/20 06/22/20 Range/Units 20:40 16:18 11:21 WBC (4.8-10.8) K/uL RBC (4.7-6.1) M/uL Hgb (14.0-18.0) g/dL Hct (42-52) % MCV (80-100) fL MCH (25-34) pg MCHC (32-36) g/dL RDW Std Deviation (36.4-46.3) fL RDW Coeff of Neena (11.5-14.5) % Plt Count (130-400) K/uL MPV (7.4-10.4) fL Immature Gran % (Auto) % Neut % (Auto) % Lymph % (Auto) % Wilcox % (Auto) % Eos % (Auto) % Baso % (Auto) % Neut # (Auto) (1.4-6.5) K/uL Lymph # (Auto) (1.2-3.4) K/uL Wilcox # (Auto) (0.11-0.59) K/uL Eos # (Auto) (0-0.5) K/uL Baso # (Auto) (0-0.2) K/uL Immature Gran # (Auto) (0.00-0.02) K/uL Polychromasia Anisocytosis PT (9.0-12.0) Seconds INR (0.9-1.1) Sodium (136-145) mmol/L Potassium (3.5-5.1) mmol/L Chloride (98-107) mmol/L Carbon Dioxide (21-32) mmol/L Anion Gap (3-11) BUN (7-18) mg/dl Creatinine (0.6-1.4) mg/dl Est Cr Clr Drug Dosing ml/min Est GFR ( Amer) Est GFR (Non-Af Amer) BUN/Creatinine Ratio (10-20) Glucose (70-99) mg/dl POC Glucose 143 H 143 H 130 H (70-99) mg/dl Calcium (8.5-10.1) mg/dl 06/22/20 Range/Units 09:41 WBC (4.8-10.8) K/uL RBC (4.7-6.1) M/uL Hgb (14.0-18.0) g/dL Hct (42-52) % MCV (80-100) fL MCH (25-34) pg MCHC (32-36) g/dL RDW Std Deviation (36.4-46.3) fL RDW Coeff of Neena (11.5-14.5) % Plt Count (130-400) K/uL MPV (7.4-10.4) fL Immature Gran % (Auto) % Neut % (Auto) % Lymph % (Auto) % Wilcox % (Auto) % Eos % (Auto) % Baso % (Auto) % Neut # (Auto) (1.4-6.5) K/uL Lymph # (Auto) (1.2-3.4) K/uL Wilcox # (Auto) (0.11-0.59) K/uL Eos # (Auto) (0-0.5) K/uL Baso # (Auto) (0-0.2) K/uL Immature Gran # (Auto) (0.00-0.02) K/uL Polychromasia Anisocytosis PT 25.0 H (9.0-12.0) Seconds INR 2.5 H (0.9-1.1) Sodium (136-145) mmol/L Potassium (3.5-5.1) mmol/L Chloride (98-107) mmol/L Carbon Dioxide (21-32) mmol/L Anion Gap (3-11) BUN (7-18) mg/dl Creatinine (0.6-1.4) mg/dl Est Cr Clr Drug Dosing ml/min Est GFR ( Amer) Est GFR (Non-Af Amer) BUN/Creatinine Ratio (10-20) Glucose (70-99) mg/dl POC Glucose (70-99) mg/dl Calcium (8.5-10.1) mg/dl Medications Administered Current Inpatient Medications Glucagon (Glucagon For Inj 1 Mg Vial) 1 mg SQ UD PRN; Protocol PRN Reason: Hypoglycemia Protocol Stop: 07/13/20 02:14 Glucose (Glucose 40% Gel 15 Gm Tube) 15 - 30 gm PO UD PRN; Protocol PRN Reason: Hypoglycemia Protocol Stop: 07/13/20 02:14 Glucose (Glucose 10 Tabs/Tube) 4 - 8 tabs PO UD PRN; Protocol PRN Reason: Hypoglycemia Protocol Stop: 07/13/20 02:14 Famotidine 20 mg/ Syringe 5 mls @ 2.5 mls/min IV Q24H CAROL ANN Stop: 07/16/20 11:59 Last Admin: 06/22/20 11:59 Dose: 2.5 mls/min Documented by: Cefepime HCl 2,000 mg/ Syringe 20 mls @ 5 mls/min IV Q12H CAROL ANN Stop: 06/24/20 16:00 Last Admin: 06/22/20 22:26 Dose: 5 mls/min Documented by: Bumetanide 10 mg/ Dextrose 50 mls @ 2.5 mls/hr IV .Q20H [facility] Stop: 07/18/20 14:14 Last Admin: 06/23/20 04:09 Dose: 1 mg/hr, 5 mls/hr Documented by: Insulin Aspart (Insulin Aspart 100 Units/Ml 3 Ml Pen) 0 units SC ACHS [facility]; Protocol Stop: 07/17/20 16:29 Last Admin: 06/23/20 08:27 Dose: Not Given Documented by: Insulin Glargine (Insulin Glargine Solostar 100 Units/Ml 3 Ml Pen) 0 units SC Q12 [facility]; Protocol Stop: 07/15/20 20:59 Last Admin: 06/21/20 08:49 Dose: Not Given Documented by: Ipratropium Sweeden (Ipratropium Sweeden Neb Soln 0.02% 2.5 Ml Vial) 0.5 mg INH Q6R [facility] Stop: 07/13/20 01:42 Last Admin: 06/23/20 07:37 Dose: 0.5 mg Documented by: Levalbuterol HCl (Levalbuterol 1.25mg/0.5ml Neb) 1.25 mg INH Q6R [facility] Stop: 07/13/20 01:42 Last Admin: 06/23/20 07:37 Dose: 1.25 mg Documented by: Levothyroxine Sodium (Levothyroxine Sodium 25 Mcg Tablet) [facility] Stop: 07/17/20 11:29 Last Admin: 06/23/20 05:29 Dose: 25 mcg Documented by: Levothyroxine Sodium (Levothyroxine Sodium 200 Mcg Tablet) [facility] Stop: 07/17/20 11:29 Last Admin: 06/23/20 05:29 Dose: 200 mcg Documented by: Miscellaneous Information (Pharmacy Glycemic Mgmt Consult) 1 ea N/A UD PRN PRN Reason: Consult Stop: 07/15/20 14:48 Nitroglycerin (Nitroglycerin Sl 0.4 Mg/Tab Tab) 0.4 mg SL UD PRN PRN Reason: Chest Pain Stop: 07/13/20 01:42 Nystatin (Nystatin Powder 15gm Btl) 1 appln EXT BID [facility] Stop: 07/13/20 08:59 Last Admin: 06/23/20 08:25 Dose: 1 appln Documented by: Ondansetron HCl (Ondansetron Inj 2 Mg/Ml 2 Ml Vial) 4 mg IV Q6H PRN PRN Reason: Nausea Stop: 07/13/20 01:42 Potassium Chloride (Potassium Chloride Crtab 20 Meq Tabcr) 40 meq PO QAM CAROL ANN Stop: 07/21/20 10:29 Last Admin: 06/22/20 08:45 Dose: 40 meq Documented by:
[2020-06-23] MEDS: POTASSIUM CHLORIDE CRTAB 20 MEQ TABCR PO SCH (10:15)
--- NOTE | 2020-06-23 11:36 | Pharmacy Report ---
Glycemic Control Progress Note - Date of Service June 23, 2020 - Scope Glycemic Pharmacist consulted for glycemic control to write orders per [facility] inpatient glycemic control protocol. - Objective Accuchecks BSG(last 24 hours):: 06/22/20 06/22/20 06/23/20 16:18 20:40 05:32 Glucose 126 H POC Glucose 143 H 143 H 06/23/20 06/23/20 07:41 11:23 Glucose POC Glucose 133 H 234 H HbA1c:: Hemoglobin A1c 6.1 % (4.5-5.6) H 06/13/20 05:34 - Recent Pertinent Medications The patient is currently receiving: * Basal insulin: Lantus -- units every -- hours * Correctional Insulin: Novolog Correction per scale ACHS Goal Range: Low 110 mg/dL - High 140 mg/dL Correction Factor: (per protocol) mg/dL/unit * Prandial insulin: Per carb ratio of 1 unit per 10 grams CHO consumed - Outpatient Anti-Diabetic Meds Lantus 10 units nightly Novolog 12 units with breakfast; 12 units with lunch; 14 units with dinner - Assessment & Plan ASSESSMENT: * See progress note from 06/16/20 for more background info, in short: * Pt receiving SQ basal bolus insulin regimen for hyperglycemia secondary to baseline DM (outpatient regimen on hold). Patient receiving cefepime for Pseudomonas UTI. He is currently on Bumex infusion. * Patient is currently receiving an average of 12 units of insulin per day * 0 units of basal insulin * 12 units of prandial/correctional insulin * BSGs ranging 124 - 143 mg/dl over the past 24hrs * Changes needed to insulin regimen: * AM Fasting BSG = 133 mg/dl. This is in goal range for patient based on inpatient targets and co-morbidities. Therefore Basal insulin will continue to be held. * Post-prandial BSGs are in range therefore no changes needed to CF/CR. Lunch BSG was elevated today at 243 mg/dL. This was abnormal for patient as highest BSG in last few days was 144 mg/dL. Will not make adjustments yet as this may be a fluke. * Total daily dose = 10-20 units. Continue to hold basal and utilize SQ protocol for patient. PLAN FOR INPATIENT GLYCEMIC CONTROL: * Continuing protocol correction factor * Continuing carb ratio of 1 unit per 10 grams CHO consumed * Continuing goal range of Low 110 mg/dL - High 140 mg/dL RECOMMENDATIONS FOR DISCHARGE: * Patient's goal HbA1C would be around 7%. * Currently HbA1C indicates that patient's control is extremely tight. * Can continue home regimen as long as he does not have hypoglycemia. Would need to decrease insulin requirements if this was the case. Thank you.
[2020-06-23] MEDS: CEFEPIME 2,000 MG in SYRINGE 0 ML IV SCH ×2 (12:49→21:55)
[2020-06-23] MEDS: FAMOTIDINE 20 MG in SYRINGE 3 ML IV SCH (12:49)
--- NOTE | 2020-06-23 15:28 | Neurology Progress Note ---
Date of Service June 23, 2020 Assessment & Plan (1) Acute alteration in mental status: 1. CT head- no acute findings 2. MRI would be more specific but unlikely to tolerate- CT head repeated with no new findings 3. right arm weakness? - would xray and may be helpful to doppler it is unclear what is causing miss use 4. palliative is involved and plan to return home and at that time convert code from full to DNR 5. continue coumadin for afib 6. optimize DM, HTN, HLD please consider patients over all status 7. bi pap needed for hypoxia and hypercapnia- may need to wear during the day to see if helps MS 8. no further neurologic input at this time- if MRI is done will be review for further recommendations otherwise will sign off for now (2) Obesity hypoventilation syndrome: 1. bi pap for hypoxia and hypercapnia 2. lasix for fluid overload- recommendations per pulmonary Admission and Anticipated Discharge Date Admission Date: June 12, 2020 Supervising Physician Co-Signing Physician Notes I have seen and discussed above patient with Dr Jaimie Harmon, neurology Subjective Javid is an obese gentleman with PMH DM 2 hypothyroidism, COPD, obesity hypoventilation syndrome chronic diastolic heart failure on BiPAP kidney stage III. He was brought in by his brother because of increasing shortness of breath and confusion has been ongoing for 3 to 4-day prior to admission. He was started on BiPAP and saturations picked up denied any cough fever chest pain nausea or vomiting or abdominal pain. He is likely non complaint with CPAP and his diuretics. He continue to be confused and limited cooperation with exam. moans with exam but says "no" when asked if he has pain. Review of Systems Review of Systems: Unobtainable due to cognitive status Physical Exam Physical Exam: Physical Exam: Constitutional: appearance ill appearing morbidly obese male Ears, Nose, Mouth and Throat: mucous membranes moist, no injection and skin normal, eyes normal Cardiovascular: irregular Respiratory: course breath sounds with wheezing through out Musculoskeletal: 2+ pitting peripheral edema unable to palpate pulses Skin: ecchymosis arms and legs Eyes: extraocular muscles intact (EOMI) NEUROLOGIC EXAMINATION: Mental status: Alert and minimally interactive Oriented to person Speech one word answers Cranial Nerves facial symmetry Reflexes: Deep tendon reflexes were symmetrical bilaterally downgoing toes. Sensory: unable to assess Coordination: would not cooperate with exam Gait/Stance: Posture lying in bed Motor: limited movement in all extremities Strength: able to pull with right arm, will not hold up, external rotation causes groan. left arm hold up with command, LE movement limited due to size Results & Data ([facility]) Vital Signs (Past 12 Hours) Vital Signs Temp Pulse Pulse Pulse Resp BP Pulse Ox 06/23/20 15:19 36.7 C 85 19 113/60 97 06/23/20 14:32 75 18 98 06/23/20 11:23 37.1 C 87 18 126/55 L 99 06/23/20 08:00 80 06/23/20 07:37 68 20 98 06/23/20 07:30 37 C 75 18 109/65 99 06/23/20 05:00 36.6 C 70 20 117/61 97 Laboratory Results Abnormal lab results 06/22/20 06/22/20 06/23/20 Range/Units 16:18 20:40 05:32 RBC 3.54 L (4.7-6.1) M/uL Hgb 10.5 L (14.0-18.0) g/dL Hct 32.5 L (42-52) % RDW Std Deviation 68.5 H (36.4-46.3) fL RDW Coeff of Neean 20.5 H (11.5-14.5) % Plt Count 117 L (130-400) K/uL Esmeralda # (Auto) 0.78 H (0.11-0.59) K/uL Immature Gran # (Auto) 0.03 H (0.00-0.02) K/uL Carbon Dioxide (21-32) mmol/L BUN (7-18) mg/dl Creatinine (0.6-1.4) mg/dl BUN/Creatinine Ratio (10-20) Glucose (70-99) mg/dl POC Glucose 143 H 143 H (70-99) mg/dl 06/23/20 06/23/20 06/23/20 Range/Units 05:32 07:41 11:23 RBC (4.7-6.1) M/uL Hgb (14.0-18.0) g/dL Hct (42-52) % RDW Std Deviation (36.4-46.3) fL RDW Coeff of Neena (11.5-14.5) % Plt Count (130-400) K/uL Esmeralda # (Auto) (0.11-0.59) K/uL Immature Gran # (Auto) (0.00-0.02) K/uL Carbon Dioxide 37 H (21-32) mmol/L BUN 65 H (7-18) mg/dl Creatinine 2.16 H (0.6-1.4) mg/dl BUN/Creatinine Ratio 30.0 H (10-20) Glucose 126 H (70-99) mg/dl POC Glucose 133 H 234 H (70-99) mg/dl Diagnostic Findings no new imaging
--- NOTE | 2020-06-23 17:59 | Progress Notes ---
DATE: 06/23/2020 SUBJECTIVE: I saw Mr. Douglass today as did Jaimie Chaidez. Followup CT yesterday showed no acute infarction. He has not yet had an MRI or a carotid ultrasound. OBJECTIVE: On my examination, he is sleepy but arousable, not following commands. No fixed gaze preference. No facial droop. IMPRESSION AND PLAN: Encephalopathy, polyfactorial, possibly in part related to CO2 retention. Initially, there was some suggestion of some laterality with some right-sided weakness. If possible, it would be reasonable to obtain an MRI of the brain and a carotid ultrasound, although doubt he would be a surgical candidate if he had a high-grade carotid stenosis and the patient is optimized on anticoagulants and antiplatelet therapy. At this point, we will sign off. Please consult again if imaging is done or if there are any further concerns.
--- NOTE | 2020-06-23 18:17 | XRay Report ---
RIGHT SHOULDER 2 VIEWS HISTORY: R arm weakness COMPARISON: None. FINDINGS: Interstitial thickening within the right lung and a small right pleural effusion persists. This favors pulmonary edema. No fracture or dislocation within the right shoulder. The right clavicle appears intact. Soft tissues are unremarkable. IMPRESSION: 1. No fracture or dislocation within the right shoulder. 2. Mild pulmonary edema and a small right pleural effusion persists. ACT 112: Negative or not required by law. Electronically signed by: Jerson Dee M.D. 06/23/2020 6:15 PM
[2020-06-24] MEDS: LEVALBUTEROL 1.25MG/0.5ML NEB INH SCH ×4 (00:57→19:46)
[2020-06-24] MEDS: IPRATROPIUM BROMIDE NEB SOLN 0.02% 2.5 ML VIAL INH SCH ×4 (00:57→19:46)
[2020-06-24 07:47] LABS: Hematocrit (blood only) 33.3 % (42-52); Hemoglobin 9.9 g/dL (14.0-18.0); Mean Corpuscular Hemoglobin 27.7 pg (25-34); Mean Corpuscular Hgb Conc 29.7 g/dL (32-36); Mean Corpuscular Volume 93.3 fL (80-100); Platelet Count 112 K/uL (130-400); RDW Coefficient of Variation 20.2 % (11.5-14.5); RDW Standard Deviation 67.8 fL (36.4-46.3); Red Blood Count 3.57 M/uL (4.7-6.1); White Blood Count 6.92 K/uL (4.8-10.8)
--- NOTE | 2020-06-24 08:21 | Ultrasound Report ---
CAROTID ARTERY ULTRASOUND CLINICAL HISTORY: Possible cerebrovascular accident. COMPARISON STUDY: None. TECHNIQUE: Real-time, grayscale, and color Doppler sonography of the carotid and vertebral arteries w as performed. Images were viewed in the transverse and longitudinal planes. FINDINGS: This exam was technically difficult due to motion. Blood pressure could not be obtained in this patie nt. There is mild atherosclerotic plaque present. Velocity measurements are listed below. COMMON CAROTID PEAK SYSTOLIC VELOCITY (CM/S): RIGHT 52 LEFT 75 ICA PEAK SYSTOLIC VELOCITY (CM/S): RIGHT 114 LEFT 108 Systolic ratios between the internal to common carotid arteries were normal. Antegrade flow is seen in the vertebral arteries. The external carotid arteries are patent. IMPRESSION: Technically compromised exam no convincing evidence for a hemodynamically significant st enosis. ACT 112: Negative or not required by law. Electronically signed by: Remington Bazan M.D. 06/24/2020 8:20 AM
[2020-06-24] MEDS: LEVOTHYROXINE SODIUM 25 MCG TABLET PO SCH (08:23)
[2020-06-24] MEDS: LEVOTHYROXINE SODIUM 200 MCG TABLET PO SCH (08:23)
[2020-06-24] MEDS: POTASSIUM CHLORIDE CRTAB 20 MEQ TABCR PO SCH (08:23)
[2020-06-24] MEDS: NYSTATIN POWDER 15GM BTL EXT SCH ×2 (08:24→21:26)
[2020-06-24 08:29] LABS: BUN Creatinine Ratio 24.9 (10-20); Calcium 9.6 mg/dl (8.5-10.1); Creatinine Clr Calc Pharmacy 47.6 ml/min; Est GFR (African American) 31.6; Est GFR (Non-African American) 27.2; Magnesium 1.6 mg/dl (1.8-2.4); Potassium 3.9 mmol/L (3.5-5.1)
[2020-06-24 08:30] LABS: Phosphorus 1.6 mg/dl (2.5-4.9)
[2020-06-24] MEDS: INSULIN ASPART 100 UNITS/ML 3 ML PEN SC SCH ×4 (08:30→21:36)
--- NOTE | 2020-06-24 09:54 | Hospitalist Progress Note ---
Date of Service June 24, 2020 Assessment & Plan (1) Acute and chronic respiratory failure: Acute on chronic right heart failure Obstructive sleep apnea on BiPAP Chronic obstructive pulmonary disease Morbid Obesity Bilateral Pleural Effusions -This is a morbidly obese patient with multiple reasons for acute on chronic respiratory failure. Back in previous hospitalization, patient had 05/17/2020 CT scan that visualized well the bilateral pleural effusions for which the right sided lung durant had more effusion than the left in addition to other known health issues. -as per the 06/12/2020 ED notes that patient "presents to the ER with about 3 or 4 days of shortness of breath. Today, his brother thought he seemed more confused. The ambulance was called. Patient was on BiPAP when the ambulance arrived. He had a low O2 saturation of around 89% on 4 L, the patient typically wears 2.5 L on a daily basis." [place] [id number] -his admission 06/12/2020 admission CXR "Moderate right pleural effusion is noted. There is no pneumothorax. There is a small left pleural effusion. Asymmetric right hemithorax opacification is noted. In part, this is due to the pleural effusion. Patient is rotated. Cardiomegaly is noted. There is suspected mild pulmonary edema. Findings have slightly progressed since prior exam" -Patient's home medication of oral Lasix 80 mg BID has been changed by admitting physician Dr. Ingram to 60 mg IV q12 hours while having patient on BIPAP -hospitalist have modified the Lasix dosing on 06/14/2020 as 40 mg IV TID however nursing reported generally low urine output 06/22/19 urine output improving since being Transitioned from Lasix to Bumex drip -16 L so far since admission Bumex drip reduced 2.5 mg/h Metolazone discontinued patient lethargic again some right-sided weakness 06/21/2020 ABG showing no signs of respiratory acidosis Ammonia normal Initial CT head, no acute CVA Repeat CT head today no acute CVA Neurologist consulted, recommend brain MRI and carotid ultrasound Patient already on Coumadin, therapeutic INR, and aspirin Acute kidney injury on chronic kidney disease stage III In the setting of UTI, possible cardiorenal syndrome -Baseline creatinine around 1.2 to 1.4 but this admission creatinine of 3.2. - crea 3.5 --> 3.2--> 2.5--> 2.1 transitioned to Bumex drip Day 6, reduced to 0.5mg/hr -Nephrology service recommendations appreciated May need hemodialysis down the road Will need to discuss with family regarding goals of care Acute metabolic encephalopathy on admission -his mental status may wax and wane due to the breathing issues, BIPAP with sle ep or somnolence has been given -06/15/2020: patient is more somnolent this day time, apparently he received ativan by night time hospitalist for agitation, have discussed concerns of acute respiratory failure which may require intubation if his condition does not improve. ICU Dr. Huynh accept patient to ICU for further monitoring. will keep patient NPO for now until ICU re-assessment Per #1 06/23 - pt awake but does not answer questions very much, neurology following, recommend brain MRI and US carotids (discussed w/ brother Lonnie who is in agreement w/ imaging) Anemia no melena noted from Acute on CKD? on Famotidine Hemoglobin 7.1, 1 unit packed RBCs ordered, hemoglobin 7.5-second unit packed RBCs ordered Hg improved to 10 monitor Bradycardia on admission - holding beta blockers at this time, (of note that his previous hospitalization had listed amiodarone but not currently active on current home med list ) his amiodarone from previous hospitalization has not been given on this admission - HR 60s History of paroxysmal ventricular tachycardia History of atrial flutter Chronic anticoagulation with coumadin -mildly elevated INR on presentation as 3.3. -INR 2.5 -Coumadin on hold in light of anemia UTI, Pseudomonas On cefepime Hypertension -hold the oral home dose hydralazine and statin Diabetes Mellitus Type 2 with group home current use of insulin -has been on insulin, monitor blood sugar, while in ICU Gastroesophageal reflux disease -Continue Protonix Hypothyroidism -home dose oral synthroid to be held for now. TSH normal Depression -hold oral fluoxetine for now Disposition pending Palliative care consulted, plan for home hospice Admission and Anticipated Discharge Date Admission Date: June 12, 2020 Subjective Pt seen in follow up of AMS, fluid overload, acute hypox. resp. failure. Pt is sitting up in bed in NAD, on NC. He is awake traces w/ his eyes but hardly speaks at all. Does not answer appropriately. Moves extremities but appears weak. Review of Systems Review of Systems: Unobtainable due to cognitive status Physical Exam Physical Exam: General- obese male sitting up in bed, not in distress, no accessory muscle use, does not speak much Eyes- anicteric Neck- no JVD Lungs-positive diminished breath sounds at the bases, no crackles Heart- normal rate, regular rhythm; no murmurs Abdomen- normal bowel sounds, nondistended, soft, nontender Extremities- mild pretibial edema, no calf tenderness Neuro- awake and alert but not answering questions, moves extremities but appears very weak Skin- warm & dry Results & Data Results & Data ([facility]) Vital Signs (Past 12 Hours) Vital Signs Temp Pulse Pulse Pulse Resp BP Pulse Ox 06/24/20 07:45 67 20 98 06/24/20 07:09 36.8 C 79 20 113/69 97 06/24/20 03:21 36.8 C 64 19 121/67 96 06/24/20 00:58 74 70 24 99 06/23/20 22:30 69 24 97 Laboratory Results 06/24/20 06/24/20 06/24/20 Range/Units 07:26 07:20 07:20 WBC 6.92 (4.8-10.8) K/uL RBC 3.57 L (4.7-6.1) M/uL Hgb 9.9 L (14.0-18.0) g/dL Hct 33.3 L (42-52) % MCV 93.3 (80-100) fL MCH 27.7 (25-34) pg MCHC 29.7 L (32-36) g/dL RDW Std Deviation 67.8 H (36.4-46.3) fL RDW Coeff of Neena 20.2 H (11.5-14.5) % Plt Count 112 L (130-400) K/uL MPV 10.0 (7.4-10.4) fL Sodium 148 H (136-145) mmol/L Potassium 3.9 (3.5-5.1) mmol/L Chloride 105 (98-107) mmol/L Carbon Dioxide 39 H (21-32) mmol/L Anion Gap 4.0 (3-11) BUN 59 H (7-18) mg/dl Creatinine 2.39 H (0.6-1.4) mg/dl Est Cr Clr Drug Dosing 47.6 ml/min Est GFR ( Amer) 31.6 Est GFR (Non-Af Amer) 27.2 BUN/Creatinine Ratio 24.9 H (10-20) Glucose 131 H (70-99) mg/dl POC Glucose 137 H (70-99) mg/dl Calcium 9.6 (8.5-10.1) mg/dl Phosphorus 1.6 L (2.5-4.9) mg/dl Magnesium 1.6 L (1.8-2.4) mg/dl 06/23/20 06/23/20 06/23/20 Range/Units 19:57 17:11 11:23 WBC (4.8-10.8) K/uL RBC (4.7-6.1) M/uL Hgb (14.0-18.0) g/dL Hct (42-52) % MCV (80-100) fL MCH (25-34) pg MCHC (32-36) g/dL RDW Std Deviation (36.4-46.3) fL RDW Coeff of Neena (11.5-14.5) % Plt Count (130-400) K/uL MPV (7.4-10.4) fL Sodium (136-145) mmol/L Potassium (3.5-5.1) mmol/L Chloride (98-107) mmol/L Carbon Dioxide (21-32) mmol/L Anion Gap (3-11) BUN (7-18) mg/dl Creatinine (0.6-1.4) mg/dl Est Cr Clr Drug Dosing ml/min Est GFR ( Amer) Est GFR (Non-Af Amer) BUN/Creatinine Ratio (10-20) Glucose (70-99) mg/dl POC Glucose 169 H 162 H 234 H (70-99) mg/dl Calcium (8.5-10.1) mg/dl Phosphorus (2.5-4.9) mg/dl Magnesium (1.8-2.4) mg/dl
--- NOTE | 2020-06-24 10:05 | Nephrology Progress Note ---
Date of Service June 24, 2020 Assessment & Plan (1) Volume overload: edema and vol OL refractory to diuretics for many days but now responding to bumex > over 15L past several days. 3 admissions here since October 2019 and no bumex at any time. currently on bumex gtt at 0.5 mg / hr and metolazone 5 mg daily. today some elevated sodium and creat on uptrend; mag and phos low >>>stopped bumex gtt >>>started po bumex 3 mg po bid and metolazone 2.5 mg daily ->>>lowered standing K to 20 mEq po daily -daily bmp -not a dialysis candidate at this time but need to consider goals of care more broadly b/c if not hospice will likely need to chronic dialysis longer term to manage volume; tend to doubt he would handle dialysis very well however given other comorbidities (2) Acute on chronic renal failure: kidney injury multifactorial including ATN in setting of Pseudomonas UTI and cardiorenal syndrome. Creatinine had bottomed out at low 2s on 06/23/19 >> now uptrending slightly -diuretics as above -Daily BMP and weights -Input and output. -goals of care as above (3) Acute and chronic respiratory failure: Due to acute CHF exacerbation and obesity hypoventilation syndrome. Patient had been down to 02nc most of the time but now on bipap -cont diuretics cardiology and pulm have signed off (4) UTI (urinary tract infection): Urine culture positive for Pseudomonas on cefepime (5) Palliative care encounter: palliative care c/s reviewed > note that pt for now to remain full code but plan is to transition home w/ hospice. >need to know from team will we d/c on po diuretics or not>> would d/c on above po meds if desired; if home w/ hospice do NOT recommend following labs but if lab desired, recommend bmp early next week (6) Electrolyte abnormality: lower mag and low phos > note that Dr Rodriguez is repleting phos; would recheck mag in am on lower diuretic dose; may not need repletion Present on Admission?: Yes Admission and Anticipated Discharge Date Admission Date: June 12, 2020 Subjective opens eyes today and tracks but non verbal; primary service had been considering brain imaging but in d/w family Review of Systems Review of Systems: Other (unobtainable d/ t current neuro status / decreased MS) Physical Exam Constitutional: well developed and + morbidly obese; no acute distress Eyes: EOM intact bilaterally ENMT: Ears: no external ear abnormality Neck: + thick neck Respiratory: normal respiratory effort and + pursed lip breathing; no labored breathing Auscultation: + diminished lung sounds Cardiovascular: Rate/Rhythm: regular rate and + irregularly irregular (HS distant) Extremities: + edema (1+) Gastrointestinal (Abdomen): normal bowel sounds, soft, nontender, no hepatosplenomegaly Musculoskeletal: Extremities: + limited ROM of extremities and + abnormal strength Skin: + turgor decreased, + skin tightening (BLe) and + erythema (BLE) Neurologic: opens eyes and tracks; does not speak; montoya, no tremor Genitourinary: huang w/ ample light yellow urine Results & Data ([facility]) Vital Signs (Past 12 Hours) Vital Signs Temp Pulse Pulse Pulse Resp BP Pulse Ox 06/24/20 07:45 67 20 98 06/24/20 07:09 36.8 C 79 20 113/69 97 06/24/20 03:21 36.8 C 64 19 121/67 96 06/24/20 00:58 74 70 24 99 06/23/20 22:30 69 24 97 Laboratory Results 06/24/20 07:20 06/24/20 07:20 (1) Acute on chronic renal failure Acute renal failure type: unspecified Chronic kidney disease stage: stage 3 (moderate) Chronic kidney disease stage 3 subtype: stage 3a (GFR 45-59) Qualified Code(s): N17.9 - Acute kidney failure, unspecified; N18.31 - Chronic kidney disease, stage 3a (2) Volume overload Hypervolemia type: other Qualified Code(s): E87.79 - Other fluid overload
[2020-06-24] MEDS ORDERED: metOLazone 2.5 MG TABLET PO ONE (10:30)
[2020-06-24] MEDS ORDERED: BUMETANIDE 1 MG TAB PO ONE (10:30)
[2020-06-24] MEDS: FAMOTIDINE 20 MG in SYRINGE 3 ML IV SCH (10:49)
[2020-06-24] MEDS: CEFEPIME 2,000 MG in SYRINGE 0 ML IV SCH (10:50)
--- NOTE | 2020-06-24 11:22 | Pharmacy Report ---
Glycemic Control Progress Note - Date of Service June 24, 2020 - Scope Glycemic Pharmacist consulted for glycemic control to write orders per [facility] inpatient glycemic control protocol. - Objective Accuchecks BSG(last 24 hours):: 06/23/20 06/23/20 06/23/20 11:23 17:11 19:57 Glucose POC Glucose 234 H 162 H 169 H 06/24/20 06/24/20 07:20 07:26 Glucose 131 H POC Glucose 137 H HbA1c:: Hemoglobin A1c 6.1 % (4.5-5.6) H 06/13/20 05:34 - Recent Pertinent Medications The patient is currently receiving: * Basal insulin: Lantus [] units every [] hours * Correctional Insulin: Novolog Correction per scale ACHS Goal Range: Low [] mg/dL - High [] mg/dL Correction Factor: [] mg/dL/unit * Prandial insulin: Per carb ratio of 1 unit per [] grams CHO consumed * Oral Agents: - Outpatient Anti-Diabetic Meds Lantus 10 units daily Novolog 12 units with breakfast; 12 units with lunch; 14 units with dinner - Assessment & Plan ASSESSMENT: * See progress note from 06/16/20 for more background info, in short: * Pt receiving SQ basal bolus insulin regimen for hyperglycemia secondary to baseline DM (outpatient regimen on hold). Bumex drip stopped today. * Patient is currently receiving an average of 21 units of insulin per day * 0 units of basal insulin * 21 units of prandial/correctional insulin * BSGs ranging 133 - 234 mg/dl over the past 24hrs * Changes needed to insulin regimen: * AM Fasting BSG = 137 mg/dl. This is in goal range for patient based on inpatient targets and co-morbidities. Therefore Basal insulin will continue to be held. * Post-prandial BSGs were elevated yesterday. This is different than most days when patient's BSGs are all below 140 mg/dL. Tighten CR slightly. * Total daily dose = 10-20 units. Changed carbohydrate ratio. PLAN FOR INPATIENT GLYCEMIC CONTROL: * Continuing correction factor per protocol mg/dl/unit * TIGHTENING carb ratio to 1 unit per 8 grams CHO consumed * Continuing goal range of Low 110 mg/dL - High 140 mg/dL RECOMMENDATIONS FOR DISCHARGE: * Patient's goal HbA1C would be around 7%. * Currently HbA1C indicates that patient's control is extremely tight. * Can continue home regimen as long as he does not have hypoglycemia. Would need to decrease insulin requirements if this was the case. Thank you.
[2020-06-24] MEDS: POT PHOSPHATE MONOBASIC W/ SOD TAB PO SCH ×3 (14:51→21:28)
[2020-06-24] MEDS: BUMETANIDE 1 MG TAB PO SCH (16:52)
[2020-06-25] MEDS: IPRATROPIUM BROMIDE NEB SOLN 0.02% 2.5 ML VIAL INH SCH ×3 (01:35→12:18)
[2020-06-25] MEDS: LEVALBUTEROL 1.25MG/0.5ML NEB INH SCH ×3 (01:35→12:18)
[2020-06-25] MEDS: LEVOTHYROXINE SODIUM 25 MCG TABLET PO SCH (06:35)
[2020-06-25] MEDS: LEVOTHYROXINE SODIUM 200 MCG TABLET PO SCH (06:35)
[2020-06-25 07:49] LABS: Hematocrit (blood only) 34.1 % (42-52); Hemoglobin 9.9 g/dL (14.0-18.0); Mean Corpuscular Hemoglobin 27.9 pg (25-34); Mean Corpuscular Volume 96.1 fL (80-100); Mean Platelet Volume 10.4 fL (7.4-10.4); Platelet Count 126 K/uL (130-400); RDW Coefficient of Variation 20.8 % (11.5-14.5); RDW Standard Deviation 72.8 fL (36.4-46.3); Red Blood Count 3.55 M/uL (4.7-6.1); White Blood Count 6.98 K/uL (4.8-10.8)
[2020-06-25 08:28] LABS: BUN Creatinine Ratio 23.2 (10-20); Calcium 10.1 mg/dl (8.5-10.1); Creatinine Clr Calc Pharmacy 44.2 ml/min; Est GFR (African American) 30.8; Est GFR (Non-African American) 26.6; Magnesium 1.6 mg/dl (1.8-2.4); Phosphorus 2.2 mg/dl (2.5-4.9); Potassium 3.4 mmol/L (3.5-5.1)
--- NOTE | 2020-06-25 08:33 | Hospitalist Progress Note ---
Date of Service June 25, 2020 Assessment & Plan (1) Acute and chronic respiratory failure: Acute on chronic right heart failure Obstructive sleep apnea on BiPAP Chronic obstructive pulmonary disease Morbid Obesity Bilateral Pleural Effusions -This is a morbidly obese patient with multiple reasons for acute on chronic respiratory failure. Back in previous hospitalization, patient had 05/17/2020 CT scan that visualized well the bilateral pleural effusions for which the right sided lung durant had more effusion than the left in addition to other known health issues. -as per the 06/12/2020 ED notes that patient "presents to the ER with about 3 or 4 days of shortness of breath. Today, his brother thought he seemed more confused. The ambulance was called. Patient was on BiPAP when the ambulance arrived. He had a low O2 saturation of around 89% on 4 L, the patient typically wears 2.5 L on a daily basis." [place] [id number] -his admission 06/12/2020 admission CXR "Moderate right pleural effusion is noted. There is no pneumothorax. There is a small left pleural effusion. Asymmetric right hemithorax opacification is noted. In part, this is due to the pleural effusion. Patient is rotated. Cardiomegaly is noted. There is suspected mild pulmonary edema. Findings have slightly progressed since prior exam" -Patient's home medication of oral Lasix 80 mg BID has been changed by admitting physician Dr. Ingram to 60 mg IV q12 hours while having patient on BIPAP -hospitalist have modified the Lasix dosing on 06/14/2020 as 40 mg IV TID however nursing reported generally low urine output 06/22/19 urine output improving since being Transitioned from Lasix to Bumex drip Bumex drip then reduced 2.5 mg/h Metolazone discontinued patient lethargic again some right-sided weakness 06/21/2020 ABG showing no signs of respiratory acidosis Ammonia normal Initial CT head, no acute CVA Repeat CT head - no acute CVA Neurologist consulted, recommend brain MRI and carotid ultrasound - unable to obtain MRI and family does not wish for that either Patient already on Coumadin, therapeutic INR, and aspirin Acute kidney injury on chronic kidney disease stage III In the setting of UTI, possible cardiorenal syndrome -Baseline creatinine around 1.2 to 1.4 but this admission creatinine of 3.2. - crea 3.5 --> 3.2--> 2.5--> 2.1 transitioned to Bumex drip, reduced to 0.5mg/hr -Nephrology service recommendations appreciated May need hemodialysis down the road Will need to discuss with family regarding goals of care Now transitioned to PO Bumex - plan to dc on PO Bumex however pt is not taking anything PO at this time Acute metabolic encephalopathy on admission -his mental status may wax and wane due to the breathing issues, BIPAP with sleep or somnolence has been given -06/15/2020: patient is more somnolent this day time, apparently he received ativan by night time hospitalist for agitation, have discussed concerns of acute respiratory failure which may require intubation if his condition does not improve. ICU Dr. Huynh accept patient to ICU for further monitoring. will keep patient NPO for now until ICU re-assessment Per #1 06/25/20 - pt is awake but not able to take PO, this is clinical decline, not able to communicate much for past several days (pt only grunts) - discussed with family - Code status changed to DNR/DNI - plan to dc home w/ hospice Anemia no melena noted from Acute on CKD? on Famotidine Hemoglobin 7.1, 1 unit packed RBCs ordered, hemoglobin 7.5-second unit packed RBCs ordered Hg improved to 10 monitor Bradycardia on admission - holding beta blockers at this time, (of note that his previous hospitalization had listed amiodarone but not currently active on current home med list ) his amiodarone from previous hospitalization has not been given on this admission - HR 60s History of paroxysmal ventricular tachycardia History of atrial flutter Chronic anticoagulation with coumadin -mildly elevated INR on presentation as 3.3. -INR 2.5 -Coumadin on hold in light of anemia UTI, Pseudomonas On cefepime Hypertension -hold the oral home dose hydralazine and statin Diabetes Mellitus Type 2 with care home current use of insulin -has been on insulin, monitor blood sugar, while in ICU Gastroesophageal reflux disease -Continue Protonix Hypothyroidism -home dose oral synthroid to be held for now. TSH normal Depression -hold oral fluoxetine for now Disposition pending Palliative care consulted, plan for home hospice Admission and Anticipated Discharge Date Admission Date: June 12, 2020 Subjective Discussed with Virginia (POA) and Allyson that unfortunately, pt's clinical status is declining, now not taking PO medications. Pt was planned to be transferred home with home hospice, however remained full code while in the hospital. Discussed that in detail with both family members and they are in agreement to stop full code status and keep pt comfortable. Pt is DNR/DNI. Pt seen in follow up of hypoxic/hypercarbic res. failure, fluid overload, multiple med. problems. Pt is laying in bed on BiPAP, was contacted by nursing staff that pt did not take his PO meds today and did not cooperate with speech evaluation. Pt is able to trace with his eyes and moves extremities however unable to obtain ROS. Possibly dc with home hospice today. Review of Systems Review of Systems: Unobtainable due to cognitive status Physical Exam Physical Exam: General- obese male laying in bed, not in distress, but on BiPAP, does not speak, able to open his eyes on command, otherwise weldon not follow commands Eyes- anicteric Neck- no JVD Lungs- diminished breath sounds , no significant wheezing rhonchi or crackles noted, however phys. exam difficult d/t body habitus and pt being on bipap Heart- normal rate, regular rhythm; no murmurs Abdomen- normal bowel sounds, nondistended, soft, nontender Extremities- mild pretibial edema, no calf tenderness Neuro- awake and alert but not answering questions, moves extremities but appears very weak Skin- warm & dry Results & Data Results & Data ([facility]) Vital Signs (Past 12 Hours) Vital Signs Temp Pulse Pulse Pulse Resp BP BP 06/25/20 07:30 36.6 C 72 22 113/59 L 06/25/20 07:00 72 72 23 06/25/20 03:38 36.4 C L 64 17 133/65 06/25/20 01:35 66 23 06/25/20 00:21 67 23 06/25/20 00:00 58 L 06/24/20 23:51 37.0 C 71 21 119/65 Pulse Ox 06/25/20 07:30 97 06/25/20 07:00 93 06/25/20 03:38 99 06/25/20 01:35 96 06/25/20 00:21 98 06/25/20 00:00 06/24/20 23:51 97 Laboratory Results 06/25/20 06/25/20 06/25/20 Range/Units 07:29 06:58 06:58 WBC 6.98 (4.8-10.8) K/uL RBC 3.55 L (4.7-6.1) M/uL Hgb 9.9 L (14.0-18.0) g/dL Hct 34.1 L (42-52) % MCV 96.1 (80-100) fL MCH 27.9 (25-34) pg MCHC 29.0 L (32-36) g/dL RDW Std Deviation 72.8 H (36.4-46.3) fL RDW Coeff of Neena 20.8 H (11.5-14.5) % Plt Count 126 L (130-400) K/uL MPV 10.4 (7.4-10.4) fL Sodium 148 H (136-145) mmol/L Potassium 3.4 L (3.5-5.1) mmol/L Chloride 104 (98-107) mmol/L Carbon Dioxide 41 H* (21-32) mmol/L Anion Gap 4.0 (3-11) BUN 57 H (7-18) mg/dl Creatinine 2.44 H (0.6-1.4) mg/dl Est Cr Clr Drug Dosing 44.2 ml/min Est GFR ( Amer) 30.8 Est GFR (Non-Af Amer) 26.6 BUN/Creatinine Ratio 23.2 H (10-20) Glucose 125 H (70-99) mg/dl POC Glucose 132 H (70-99) mg/dl Calcium 10.1 (8.5-10.1) mg/dl Phosphorus 2.2 L (2.5-4.9) mg/dl Magnesium 1.6 L (1.8-2.4) mg/dl 06/24/20 06/24/20 06/24/20 Range/Units 20:41 16:07 11:17 WBC (4.8-10.8) K/uL RBC (4.7-6.1) M/uL Hgb (14.0-18.0) g/dL Hct (42-52) % MCV (80-100) fL MCH (25-34) pg MCHC (32-36) g/dL RDW Std Deviation (36.4-46.3) fL RDW Coeff of Neena (11.5-14.5) % Plt Count (130-400) K/uL MPV (7.4-10.4) fL Sodium (136-145) mmol/L Potassium (3.5-5.1) mmol/L Chloride (98-107) mmol/L Carbon Dioxide (21-32) mmol/L Anion Gap (3-11) BUN (7-18) mg/dl Creatinine (0.6-1.4) mg/dl Est Cr Clr Drug Dosing ml/min Est GFR ( Amer) Est GFR (Non-Af Amer) BUN/Creatinine Ratio (10-20) Glucose (70-99) mg/dl POC Glucose 158 H 203 H 164 H (70-99) mg/dl Calcium (8.5-10.1) mg/dl Phosphorus (2.5-4.9) mg/dl Magnesium (1.8-2.4) mg/dl Medications Administered Current Inpatient Medications Bumetanide (Bumetanide 1 Mg Tab) 3 mg PO [id number] CAROL ANN Stop: 07/24/20 16:59 Last Admin: 06/24/20 16:52 Dose: 3 mg Documented by: Famotidine (Famotidine 20 Mg Tab) 20 mg PO DAILY CAROL ANN; Protocol Stop: 07/25/20 08:59 Glucagon (Glucagon For Inj 1 Mg Vial) 1 mg SQ UD PRN; Protocol PRN Reason: Hypoglycemia Protocol Stop: 07/13/20 02:14 Glucose (Glucose 40% Gel 15 Gm Tube) 15 - 30 gm PO UD PRN; Protocol PRN Reason: Hypoglycemia Protocol Stop: 07/13/20 02:14 Glucose (Glucose 10 Tabs/Tube) 4 - 8 tabs PO UD PRN; Protocol PRN Reason: Hypoglycemia Protocol Stop: 07/13/20 02:14 Insulin Aspart (Insulin Aspart 100 Units/Ml 3 Ml Pen) 0 units SC ACHS CAROL ANN; Protocol Stop: 07/17/20 16:29 Last Admin: 06/24/20 21:36 Dose: 3 units Documented by: Insulin Glargine (Insulin Glargine Solostar 100 Units/Ml 3 Ml Pen) 0 units SC Q12 CAROL ANN; Protocol Stop: 07/15/20 20:59 Last Admin: 06/21/20 08:49 Dose: Not Given Documented by: Ipratropium [place] (Ipratropium [place] Neb Soln 0.02% 2.5 Ml Vial) 0.5 mg INH Q6R [facility] Stop: 07/13/20 01:42 Last Admin: 06/25/20 07:00 Dose: 0.5 mg Documented by: Levalbuterol HCl (Levalbuterol 1.25mg/0.5ml Neb) 1.25 mg INH Q6R [facility] Stop: 07/13/20 01:42 Last Admin: 06/25/20 07:00 Dose: 1.25 mg Documented by: Levothyroxine Sodium (Levothyroxine Sodium 25 Mcg Tablet) [facility] Stop: 07/17/20 11:29 Last Admin: 06/25/20 06:35 Dose: 25 mcg Documented by: Levothyroxine Sodium (Levothyroxine Sodium 200 Mcg Tablet) [facility] Stop: 07/17/20 11:29 Last Admin: 06/25/20 06:35 Dose: 200 mcg Documented by: Metolazone (Metolazone 2.5 Mg Tablet) 2.5 mg PO DAILY [facility] Stop: 07/25/20 08:59 Miscellaneous Information (Pharmacy Glycemic Mgmt Consult) 1 ea N/A UD PRN PRN Reason: Consult Stop: 07/15/20 14:48 Nitroglycerin (Nitroglycerin Sl 0.4 Mg/Tab Tab) 0.4 mg SL UD PRN PRN Reason: Chest Pain Stop: 07/13/20 01:42 Nystatin (Nystatin Powder 15gm Btl) 1 appln EXT BID [facility] Stop: 07/13/20 08:59 Last Admin: 06/24/20 21:26 Dose: 1 appln Documented by: Ondansetron HCl (Ondansetron Inj 2 Mg/Ml 2 Ml Vial) 4 mg IV Q6H PRN PRN Reason: Nausea Stop: 07/13/20 01:42 Potassium Chloride (Potassium Chloride Crtab 20 Meq Tabcr) 20 meq PO QAM [facility] Stop: 07/25/20 08:59 Potassium Phosphate (Pot Phosphate Monobasic W/ Sod Tab) 1 tab PO QID [facility] Stop: 07/24/20 12:59 Last Admin: 06/24/20 21:28 Dose: 1 tab Documented by:
[2020-06-25] MEDS ORDERED: metOLazone 2.5 MG TABLET PO SCH ×2 (09:00→11:00)
[2020-06-25] MEDS ORDERED: POTASSIUM CHLORIDE CRTAB 20 MEQ TABCR PO SCH (09:00)
[2020-06-25] MEDS ORDERED: FAMOTIDINE 20 MG TAB PO SCH (09:00)
[2020-06-25] MEDS: BUMETANIDE 1 MG TAB PO SCH (09:15)
[2020-06-25] MEDS: INSULIN ASPART 100 UNITS/ML 3 ML PEN SC SCH ×2 (09:17→13:17)
[2020-06-25] MEDS: POT PHOSPHATE MONOBASIC W/ SOD TAB PO SCH ×3 (09:18→17:51)
[2020-06-25] MEDS: NYSTATIN POWDER 15GM BTL EXT SCH ×2 (09:19→20:53)
--- NOTE | 2020-06-25 10:38 | Nephrology Progress Note ---
Date of Service June 25, 2020 Assessment & Plan (1) Volume overload: edema and vol OL refractory to diuretics for many days but now responding to bumex > over 15L past several days. 3 admissions here since October 2019 and no bumex at any time. currently on bumex gtt at 0.5 mg / hr and metolazone 5 mg daily. today some elevated sodium and creat on uptrend; mag and phos low >>>lowered po bumex to 2 mg po bid and changd metolazone from 2.5 mg daily to 2.5 mg MWF ->>>upped standing K to 30 mEq po bid -daily bmp -not a dialysis candidate at this time but need to consider goals of care more broadly b/c if not hospice will likely need to chronic dialysis longer term to manage volume; tend to doubt he would handle dialysis very well however given other comorbidities (2) Acute on chronic renal failure: kidney injury multifactorial including ATN in setting of Pseudomonas UTI and cardiorenal syndrome. Creatinine had bottomed out at low 2s on 06/23/19 >> now uptrending slightly -diuretics as above -Daily BMP and weights -Input and output. -goals of care as above (3) Acute and chronic respiratory failure: Due to acute CHF exacerbation and obesity hypoventilation syndrome. Patient had been down to 02nc most of the time but now on bipap -cont diuretics cardiology and pulm have signed off (4) UTI (urinary tract infection): Urine culture positive for Pseudomonas on cefepime (5) Palliative care encounter: palliative care c/s reviewed > note that pt for now to remain full code but plan is to transition home w/ hospice. >need to know from team will we d/c on po diuretics or not>> would d/c on above po meds if desired; if home w/ hospice do NOT recommend following labs but if lab desired, recommend bmp early next week (6) Electrolyte abnormality: lower mag and low phos > note that Dr Rodriguez had been repleting phos; recheck mag this am on lower diuretic dose shows need for repletion >started mag ox Admission and Anticipated Discharge Date Admission Date: June 12, 2020 Physical Exam Constitutional: well developed and + morbidly obese; no acute distress Eyes: EOM intact bilaterally ENMT: Ears: no external ear abnormality Neck: + thick neck Respiratory: normal respiratory effort and + pursed lip breathing; no labored breathing Auscultation: + diminished lung sounds Cardiovascular: Rate/Rhythm: regular rate and + irregularly irregular (HS distant) Extremities: + edema (1+) Gastrointestinal (Abdomen): normal bowel sounds, soft, nontender, no hepatosplenomegaly Musculoskeletal: Extremities: + limited ROM of extremities and + abnormal strength Skin: + turgor decreased, + skin tightening (BLe) and + erythema (BLE) Psychiatric: Orientation: oriented to person Results & Data ([facility]) Vital Signs (Past 12 Hours) Vital Signs Temp Pulse Pulse Pulse Resp BP BP 06/25/20 07:30 36.6 C 72 22 113/59 L 06/25/20 07:00 72 72 23 06/25/20 03:38 36.4 C L 64 17 133/65 06/25/20 01:35 66 23 06/25/20 00:21 67 23 06/25/20 00:00 58 L 06/24/20 23:51 37.0 C 71 21 119/65 Pulse Ox 06/25/20 07:30 97 06/25/20 07:00 93 06/25/20 03:38 99 06/25/20 01:35 96 06/25/20 00:21 98 06/25/20 00:00 06/24/20 23:51 97 Laboratory Results 06/25/20 06:58 06/25/20 06:58 (1) Volume overload Hypervolemia type: other Qualified Code(s): E87.79 - Other fluid overload (2) Acute on chronic renal failure Acute renal failure type: unspecified Chronic kidney disease stage: stage 3 (moderate) Chronic kidney disease stage 3 subtype: stage 3a (GFR 45-59) Qualified Code(s): N17.9 - Acute kidney failure, unspecified; N18.31 - Chronic kidney disease, stage 3a
[2020-06-25] MEDS ORDERED: MAGNESIUM OXIDE 400 MG TAB PO SCH (10:45)
--- NOTE | 2020-06-25 11:04 | Hospitalist Progress Note ---
Date of Service June 25, 2020 Assessment & Plan Admission and Anticipated Discharge Date Admission Date: June 12, 2020 Subjective Discussed with Virginia (POA) and Allyson that unfortunately, pt's clinical status is declining, now not taking PO medications. Pt was planned to be transferred home with home hospice, however remained full code while in the hospital. Discussed that in detail with both family members and they are in agreement to stop full code status and keep pt comfortable. Pt is DNR/DNI. Shannan Rodriguez MD Results & Data Results & Data ([facility]) Vital Signs (Past 12 Hours) Vital Signs Temp Pulse Pulse Pulse Resp BP BP 06/25/20 07:30 36.6 C 72 22 113/59 L 06/25/20 07:00 72 72 23 06/25/20 03:38 36.4 C L 64 17 133/65 06/25/20 01:35 66 23 06/25/20 00:21 67 23 06/25/20 00:00 58 L 06/24/20 23:51 37.0 C 71 21 119/65 Pulse Ox 06/25/20 07:30 97 06/25/20 07:00 93 06/25/20 03:38 99 06/25/20 01:35 96 06/25/20 00:21 98 06/25/20 00:00 06/24/20 23:51 97
--- NOTE | 2020-06-25 11:59 | Palliative Care Progress Note ---
Date of Service June 25, 2020 Assessment & Plan (1) Acute on chronic respiratory failure with hypoxia and hypercapnia: (2) COPD exacerbation: (3) Obesity hypoventilation syndrome: (4) CHF (congestive heart failure): (5) Palliative care encounter: Javid has proven to have declined over the past 24 hours. He is less interactive, opens his eyes to voice, but no meaningful verbage. He does spontaneously move all extremities. He was placed on 0.30 Bipap this morning, with no improvement. Patient is moaning and not safe to swallow medications or eat safely. Original plan was for patient to return home with hospice services today. I stressed that we were in the window of opportunity to safely transport this individual home. Multiple conversations held with Virginia Valadez Adam and case management. Family is hesitant in their ability to care for this individual at home. We discussed that feelings of being overwhelmed with this transition is common and that hospice does a great job of educating and providing comfort to caregivers as they transition into this role. The family called me back and stated that they would prefer transitioning him to comfort measures while he is here in the hospital. I discussed the above with Dr. Rodriguez who is in agreement. I discontinued all non- essential medications not focused on comfort, all vital signs and have ordered comfort medications including Morphine, Robinul, and Ativan. Life expectancy is hours to a few days. 4 family members have been cleared for one time visitation: Lonnie Coleman, Lc, and Spencer. Palliative care will follow. Admission and Anticipated Discharge Date Admission Date: June 12, 2020 Subjective Discussed with Virginia (POA) and Allyson that unfortunately, pt's clinical status is declining, now not taking PO medications. Pt was planned to be transferred home with home hospice, however remained full code while in the hospital. Discussed that in detail with both family members an d they are in agreement to stop full code status and keep pt comfortable. Pt is DNR/DNI. Pt seen in follow up of hypoxic/hypercarbic res. failure, fluid overload, multiple med. problems. Pt is laying in bed on BiPAP, was contacted by nursing staff that pt did not take his PO meds today and did not cooperate with speech evaluation. Pt is able to trace with his eyes and moves extremities however unable to obtain ROS. Possibly dc with home hospice today. Review of Systems Review of Systems: Unobtainable due to reduced consciousness Physical Exam Constitutional: + acute distress, + morbidly obese and + lethargic Neck: trachea midline, + short neck and + thick neck Respiratory: + labored breathing and + uses accessory muscles Auscultation: + diminished lung sounds and + rhonchi Cardiovascular: Rate/Rhythm: regular rate and regular rhythm Extremities: normal capillary refill and + edema Gastrointestinal (Abdomen): normal bowel sounds, soft, nontender, no hepatosplenomegaly Skin: no rashes, warm and dry Psychiatric: Orientation: alert, oriented to person and cooperative Insight: + poor insight Judgement: + poor judgement Results & Data ([facility]) Vital Signs (Past 12 Hours) Vital Signs Temp Pulse Pulse Pulse Resp BP Pulse Ox 06/25/20 11:45 36.6 C 68 24 114/61 94 06/25/20 07:30 36.6 C 72 22 113/59 L 97 06/25/20 07:00 72 72 23 93 06/25/20 03:38 36.4 C L 64 17 133/65 99 06/25/20 01:35 66 23 96 06/25/20 00:21 67 23 98 06/25/20 00:00 58 L PG Care Time/CCT Total # of Minutes Spent Total Time Spent with Patient: Total time spent is greater than 50% in coordination of care (as documented) at patient's floor/unit and/or counseling patient: 45 Coding Level of Care Code 26301 Subseq Hosp Care Lvl 3 Diagnoses Acute on chronic respiratory failure with hypoxia and hypercapnia J96.21; J96.22 COPD exacerbation J44.1 Obesity hypoventilation syndrome E66.2 CHF (congestive heart failure) I50.9 Heart failure chronicity: acute on chronic Heart failure type: unspecified Palliative care encounter Z51.5 Time Spent (min) 45 Time Spent Midlevel Total time spent 45 minutes of >50% of that time spent assessing the patient, discussing goals of care with family and collaborating with IDT (1) CHF (congestive heart failure) Heart failure chronicity: acute on chronic Heart failure type: unspecified Qualified Code(s): I50.9 - Heart failure, unspecified
[2020-06-25] MEDS ORDERED: GLYCOPYRROLATE 0.2 MG/ML VIAL IV PRN (15:13)
[2020-06-25] MEDS ORDERED: LORazepam 1 MG/2 ML VIAL IV PRN (15:15)
[2020-06-25] MEDS: MoRPHine SULFATE 2 MG/ML CARP IV PRN ×2 (15:42→20:53)
[2020-06-25] MEDS ORDERED: BUMETANIDE 1 MG TAB PO SCH (17:00)
[2020-06-25] MEDS ORDERED: POTASSIUM CHLORIDE 10 MEQ TABCR PO SCH (21:00)
[2020-06-26] MEDS: MoRPHine SULFATE 2 MG/ML CARP IV PRN (05:18)
--- NOTE | 2020-06-26 08:08 | Discharge Summary ---
Date of Service June 26, 2020 Admission HPI Per Admitting Provider This is a 64-year-old male with past medical history significant for type 2 diabetes, hypothyroidism, COPD, obesity hypoventilation syndrome, chronic diastolic heart failure, atrial flutter, morbid obesity, obstructive sleep apnea, on BiPAP, bilateral lymphedema, chronic kidney disease stage III. The patient lives with brother at present. Was brought in because of shortness of breath. Today he seems to be more confused. He is having shortness of breath for the last 3-4 days. He generally uses 2-3 liters of oxygen at home, was saturating 89% on 4 liters. He was placed on BiPAP when he came in. The patient is somewhat slow to answer, but alert and oriented. Knows that he is in the hospital. Denies any cough. Denies any fevers. Denies any chest pain. No nausea, no vomiting, no abdominal pain. Says he has normal bowel and bladder movements. Denies any pain. Complains having some shortness of breath. Currently the patient is saturating okay on 3 liters. Admission Exam Per Admitting Provider GENERAL: The patient is morbidly obese, not in acute distress. VITAL SIGNS: Temperature 36.2, pulse 47, respiratory rate 15, blood pressure 131/73, oxygen 99% on 3 liters. HEENT: Pupils equal, round, and reactive to light. Oral mucosa moist. NECK: No neck masses seen. CARDIOVASCULAR: S1, S2 heard. Regular rate and rhythm, no murmur, no gallop. RESPIRATORY SYSTEM: Normal AP diameter. No accessory muscle use. No wheezing. Mild bibasilar crackles. ABDOMEN: Soft, bowel sounds present, nontender, no distention. CENTRAL NERVOUS SYSTEM: Alert and oriented to name and place. Somewhat slow to answer. Obeys simple commands. Speech is low volume. No facial droop. Moves extremities. EXTREMITIES: Bilateral lower extremity edema present. Chronic skin changes seen. Principal Diagnosis Acute on chronic respiratory failure Acute on chronic right heart failure Acute on chronic renal failure Severe obstructive sleep apnea on BiPAP, morbid obesity, Obesity hypoventilation syndrome Discharge Exam Pt ceased to breath at 6:15 AM, pt was pronounced by nursing staff. Discharge Data Allergies Allergy/AdvReac Type Severity Reaction Status Date / Time pollen extracts Allergy Mild sneezing/watery Verified 06/12/20 21:21 eyes Consultations 06/12/20 22:33 ED Decision to Admit Stat 06/13/20 01:43 Consult Case Management - Discharge Planning Routine 06/13/20 07:05 Consult Nephrology Routine 06/13/20 08:00 Consult Cardiology Routine 06/15/20 09:04 Consult Case Management - Discharge Planning Routine Consult Plastic Duplicator Routine 06/16/20 08:34 Consult Palliative Care Routine 06/21/20 12:17 Consult Neurology Routine Ordered Studies 06/12/20 18:54 CT head/brain wo con Stat IMPRESSION: No acute intracranial findings. Exam compromised by motion artifact. No significant change in appearance of the brain 06/21/20 10:51 CT head/brain wo con Stat IMPRESSION: No acute intracranial findings. Exam compromised by motion artifact. No significant change since prior study. 06/22/20 08:57 CT head/brain wo con Routine Impression: No significant change compared to the prior study. No acute intracranial abnormality. 06/23/20 19:05 US carotid doppler BI Routine Hospital Course (1) Acute and chronic respiratory failure: Acute on chronic right heart failure Obstructive sleep apnea on BiPAP Chronic obstructive pulmonary disease Morbid Obesity Bilateral Pleural Effusions Per previous hospitalist: Mr. Douglass is a morbidly obese patient with multiple reasons for acute on chronic respiratory failure. Back in previous hospitalization, patient had 05/17/2020 CT scan that visualized well the bilateral pleural effusions for which the right sided lung durant had more effusion than the left in addition to other known health issues. As per the 06/12/2020 ED notes that patient "presents to the ER with about 3 or 4 days of shortness of breath. Today, his brother thought he seemed more confused. The ambulance was called. Patient was on BiPAP when the ambulance arrived. He had a low O2 saturation of around 89% on 4 L, the patient typically wears 2.5 L on a daily basis." [place] [id number] -his admission 06/12/2020 admission CXR "Moderate right pleural effusion is noted. There is no pneumothorax. There is a small left pleural effusion. Asymmetric right hemithorax opacification is noted. In part, this is due to the pleural effusion. Patient is rotated. Cardiomegaly is noted. There is suspected mild pulmonary edema. Findings have slightly progressed since prior exam" -Patient's home medication of oral Lasix 80 mg BID has been changed by admitting physician Dr. Ingram to 60 mg IV q12 hours while having patient on BIPAP -hospitalist have modified the Lasix dosing on 06/14/2020 as 40 mg IV TID however nursing reported generally low urine output 06/25/20 - pt is awake but not able to take PO, this is a clinical decline, not able to communicate much for past several days (pt only grunts) - discussed with family - Code status changed to DNR/DNI - plan to dc home w/ hospice After further discussion with the family and palliative medicine, decided to kepp pt inpt for comfort care. Family allowed to come visit the pt. Pt on at 6:15 AM. 06/22/19 urine output improving since being Transitioned from Lasix to Bumex drip Bumex drip then reduced 2.5 mg/h Metolazone discontinued 06/21/2020 Patient lethargic again some right-sided weakness ABG showing no signs of respiratory acidosis Ammonia normal Initial CT head, no acute CVA Repeat CT head - no acute CVA Neurologist consulted, recommend brain MRI and carotid ultrasound - unable to obtain MRI and family does not wish for that either Patient already on Coumadin, therapeutic INR, and aspirin Acute kidney injury on chronic kidney disease stage III In the setting of UTI, possible cardiorenal syndrome -Baseline creatinine around 1.2 to 1.4 but this admission creatinine of 3.2. - crea 3.5 --> 3.2--> 2.5--> 2.1 transitioned to Bumex drip, reduced to 0.5mg/hr -Nephrology service recommendations appreciated May need hemodialysis down the road, not a candidate at this time, also pt will likely not tolerate HD Need to discuss with family regarding goals of care Now transitioned to PO Bumex - plan to dc on PO Bumex however pt is not taking anything PO at this time Acute metabolic encephalopathy on admission -his mental status may wax and wane due to the breathing issues, BIPAP with sleep or somnolence has been given -06/15/2020: patient is more somnolent this day time, apparently he received ativan by night time hospitalist for agitation, have discussed concerns of acute respiratory failure which may require intubation if his condition does not improve. ICU Dr. Huynh accept patient to ICU for further monitoring. will keep patient NPO for now until ICU re-assessment - per prior hospitalist note 06/25/20 - pt is awake but not able to take PO, this is clinical decline, not able to communicate much for past several days (pt only grunts) - discussed with family - Code status changed to DNR/DNI - plan to dc home w/ hospice Anemia no melena noted from Acute on CKD? on Famotidine Hemoglobin 7.1, 1 unit packed RBCs ordered, hemoglobin 7.5-second unit packed RBCs ordered Hg improved to 10 monitor Bradycardia on admission - holding beta blockers at this time, (of note that his previous hospitalization had listed amiodarone but not currently active on current home med list ) his amiodarone from previous hospitalization has not been given on this admission - HR 60s History of paroxysmal ventricular tachycardia History of atrial flutter Chronic anticoagulation with coumadin -mildly elevated INR on presentation as 3.3. 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 TSH normal Depression -hold oral fluoxetine for now Disposition pending Palliative care consulted, plan for home hospice After further discussion w/ family and palliative medicine decided to keep pt inpt w/ comfort care. Family was allowed to come visit. Total Time Total Time Spent Total Time Spent (In Minutes): 0 Discharge Plan Discharge Items Patient Disposition: Discharge Diagnosis: Acute on chronic respiratory failure Acute on chronic right heart failure Acute on chronic renal failure Severe obstructive sleep apnea on BiPAP, morbid obesity, Obesity hypoventilation syndrome Addtl Attending Provider Instructions: Pt ceased to breath at 6:15 AM per nursing staff, pt pronounced by nursing staff provider notified at 7 AM
== END 2020-06-26 08:36 | disposition expired | DRG 291 ==
LOC: ED 18:41 → 1E 23:35 → SUATTDRO 23:35 → 1E 06-13 01:34 → 2S 06-13 18:24 → 1E 06-15 09:05 → 2S 06-19 18:50 → 3W 06-25 15:06